=== PATIENT | female | born 1955 | race Caucasian/White ===

== ENCOUNTER 2017-04-04 15:55 | Inpatient (IN) | payer MEDICAID ==
[2017-04-04 16:44] LABS: BASO # 0.1 K/uL (0.0-0.2); BASO % 0.6 % (0.0-2.0); EOS # 0.1 K/uL (0.0-0.7); EOS % 0.7 % (0.0-4.0); LYMPH # 2.6 K/uL (1.0-4.3); LYMPH % 26.4 % (20.0-40.0); MEAN CELL VOLUME 82.6 fL (81.0-99.0); MEAN CORPUSCULAR HEMOGLOBIN 27.3 pg (27.0-31.0); MEAN CORPUSCULAR HGB CONC 33.1 g/dL (33.0-37.0); MEAN PLATELET VOLUME 7.5 fL (7.2-11.7); MONO % 10.8 % (0.0-10.0); NRBC % 0.1 % (0.0-2.0); RED CELL DISTRIBUTION WIDTH 14.8 % (11.5-14.5); WHITE BLOOD COUNT 9.7 K/uL (4.8-10.8)
[2017-04-04 16:53] LABS: CHLORIDE 105 mmol/L (98-107); SODIUM 131 mmol/L (132-148)
[2017-04-04 16:55] LABS: GFR AFRICAN-AMERICAN > 60; POTASSIUM 5.1 mmol/L (3.6-5.2)
[2017-04-04 16:56] LABS: ALB/GLOB RATIO 0.6 (1.0-2.1); ALKALINE PHOSPHATASE 129 U/L (38-126); ALT/SGPT 12 U/L (9-52); AST/SGOT 22 U/L (14-36); BILIRUBIN,TOTAL 0.8 mg/dL (0.2-1.3); BLOOD UREA NITROGEN 12 mg/dL (7-17); CALCIUM 8.9 mg/dl (8.6-10.4); CARBON DIOXIDE 16 mmol/L (22-30); GLUCOSE,RANDOM 123 mg/dL (65-105); TOTAL PROTEIN 7.8 g/dL (6.3-8.3)
--- NOTE | 2017-04-04 17:41 | C.PDOC ---
History Of Present Illness 61 yr old female with PMHx of hydronephrosis, with bilateral nephrostomy tubes, sent to the ER by PMD for abdominal pain. Patient is a poor historian, family reports prolonged hospital course at another instition. family cannot provide further hx. Also denies fever, nausea, vomiting, dysuria, weakness or numbness. Time Seen by Provider: 04/04/17 16:09 Chief Complaint (Nursing): Abdominal Pain History Per: Patient History/Exam Limitations: no limitations Onset/Duration Of Symptoms: Days Past Medical History Reviewed: Historical Data, Nursing Documentation, Vital Signs Vital Signs: Last Vital Signs Temp 98 F 04/08/17 16:00 Pulse 109 H 04/08/17 16:00 Resp 18 04/08/17 16:00 BP 116/70 04/08/17 16:00 Pulse Ox 99 04/08/17 19:14 - Medical History PMH: Hyperthyroidism Family History: States: No Known Family Hx - Social History Hx Alcohol Use: No Hx Substance Use: No - Immunization History Hx Tetanus Toxoid Vaccination: No Hx Influenza Vaccination: No Hx Pneumococcal Vaccination: No Review Of Systems Except As Marked, All Systems Reviewed And Found Negative. Constitutional: Negative for: Fever Gastrointestinal: Positive for: Abdominal Pain. Negative for: Nausea, Vomiting Genitourinary: Negative for: Dysuria Neurological: Negative for: Weakness, Numbness Physical Exam - Physical Exam Appears: Non-toxic, No Acute Distress Skin: Warm, Dry Head: Atraumatic, Normacephalic Chest: Symmetrical, No Tenderness Cardiovascular: Rhythm Regular, No Murmur Respiratory: Normal Breath Sounds, No Rales, No Rhonchi, No Stridor, No Wheezing Pelvic: Other ((+) Bilateral nephrostomy tubes and gonzalez catheter in place.) Neurological/Psych: Oriented x3, Normal Speech, Normal Motor, Normal Sensation ED Course And Treatment - Laboratory Results Result Diagrams: 04/07/17 07:11 04/08/17 17:49 O2 Sat by Pulse Oximetry: 99 (RA) Pulse Ox Interpretation: Normal - CT Scan/US CT - Abd & Pelvis Other Rad Studies (CT/US): Interpreted By Me, Read By Radiologist, Radiology Report Reviewed CT/US Interpretation: Patient Name: MARCO PAIGE . Pt. Address: [address] [place] [address] Med. Rec #: [id number]. [place] [address]: Kelechi Holly DO. Pt Order Location: [facility] : 08/1955 Female Age: 61 Order #: [id number]. Reason for exam: abd pain h/o of nephrostomy. . . . . . CT Scan. . . ABD PELVIS W/O PO OR IV CONT Exam Date: 04/04/17. . This imaging exam was performed at [facility]. EXAM: CT Abdomen and Pelvis Without Intravenous Contrast. . EXAM DATE/TIME: Exam ordered 04/04/2017 4:26 PM. . CLINICAL HISTORY: 61 years old, female; Pain; Abdominal pain; Generalized; Additional info: Abd. pain h/o of nephrostomy. . TECHNIQUE: Axial computed tomography images of the abdomen and pelvis without. intravenous contrast. All CT scans at this facility use one or more dose. reduction techniques, viz.: automated exposure control; ma/ kV adjustment per. patient size (including targeted exams where dose is matched to indication;. i.e. head); or iterative reconstruction technique. Coronal and sagittal reformatted images were created and reviewed. . COMPARISON: No relevant prior studies available. . FINDINGS: Lower thorax: No acute findings. . ABDOMEN: Liver: Unremarkable. Gallbladder and bile ducts: Unremarkable. No calcified stones. No ductal. dilation. Pancreas: Unremarkable. No ductal dilation. Spleen: Unremarkable. No splenomegaly. Adrenals: Unremarkable. No mass. Kidneys and ureters: There are bilateral percutaneous nephrostomy catheters. The catheter catheter ends are coiled within the renal pelvises. Air is noted. within the renal pelvises bilaterally. There is atrophy of the left renal. cortex. No obstructing stones. No hydronephrosis. Stomach and bowel: Unremarkable. No obstruction. No mucosal thickening. Appendix: Not seen as a separate structure. . PELVIS : Bladder: A balloon tipped urethral catheter is directed into a bowel loop in. the right hemipelvis. The catheter courses within a bowel loop in the right. hemipelvis and then crosses the midline to terminate in a bowel loop in the. left midabdomen. A gas/fluid collection in the bladder bed measures. approximately 7.4 x 5.1 x 2 cm. Thegas/fluid collection is predominantly gas. There is soft tissue thickening with loss of normal fat planes are . the pelvic sidewall and obturator internus. There is stranding of the. perirectal fat. There is a healed midline abdominal incision. Surgical clips. are noted in this region. The bladder is absent. No stones. Reproductive: The uterus is absent. . ABDOMEN and PELVIS: Intraperitoneal space: Unremarkable. No free air. No significant fluid. collection. Bones/joints: There is 5 mm retrolisthesis of L5 with respect to L4. There. is narrowing of the L4-5 intervertebral disc space. There is narrowing of the. intervertebral foramina bilaterally at this level. No acute fracture. No. dislocation. Soft tissues: Unremarkable. Vasculature: Unremarkable. No abdominal aortic aneurysm. Lymph nodes: Unremarkable. No enlarged lymph nodes. Other findings : There is mild pubic diastases. . IMPRESSION: 1. Gas/fluid collection noted within the cystectomy bed suggesting abscess. formation. . 2. A urethral balloon tipped catheter is directed into a bowel loop in the. right lower quadrant and appears to terminate at the level of the descending. colon. Clinical correlation suggested.THIS REPORT CONTAINS FINDINGS THAT MAY BE. CRITICAL TO PATIENT CARE. The findings were verbally communicated via telephone. conference with Kelechi Holly at 6:27 PM EDT on 04/04/2017. The findings were. acknowledged and understood. . 3. Subtle irregularity noted along the margins of the symphysis pubis could. represent osteomyelitis. . 4. A grade 1 spondylolisthesis at L4-5. Bilateral foraminal stenosis. . 5. Bilateral percutaneous nephrostomy catheters. There is evidence of left. renal atrophy. Medical Decision Making Medical Decision Making: pt poor historain - discussed case with dr paige on arrival for more hx, request labs and ct imaging PLAN: * CT - Abd & Pelvis * CBC * CMP * Urinalysis 700: noted ct findings, case discussed with dr ko and dr sood and vice president diversity. vice president diversity bedside.dr paige accepts for admission, Disposition - Disposition Disposition: HOSPITALIZED Disposition Time: 06:00 Condition: FAIR - Clinical Impression Clinical Impression: Colonic fistula, Displacement of Gonzalez catheter - Scribe Statement The provider has reviewed the documentation as recorded by the Stormy Lynne Provider Attestation: All medical record entries made by the Scribe were at my direction and personally dictated by me. I have reviewed the chart and agree that the record accurately reflects my personal performance of the history, physical exam, medical decision making, and the department course for this patient. I have also personally directed, reviewed, and agree with the discharge instructions and disposition.
--- NOTE | 2017-04-04 18:33 | CT ---
EXAM: CT Abdomen and Pelvis Without Intravenous Contrast EXAM DATE/TIME: Exam ordered 04/04/2017 4:26 PM CLINICAL HISTORY: 61 years old, female; Pain; Abdominal pain; Generalized; Additional info: Abd pain h/o of nephrostomy TECHNIQUE: Axial computed tomography images of the abdomen and pelvis without intravenous contrast. All CT scans at this facility use one or more dose reduction techniques, viz.: automated exposure control; ma/kV adjustment per patient size (including targeted exams where dose is matched to indication; i.e. head); or iterative reconstruction technique. Coronal and sagittal reformatted images were created and reviewed. COMPARISON: No relevant prior studies available. FINDINGS: Lower thorax: No acute findings. ABDOMEN: Liver: Unremarkable. Gallbladder and bile ducts: Unremarkable. No calcified stones. No ductal dilation. Pancreas: Unremarkable. No ductal dilation. Spleen: Unremarkable. No splenomegaly. Adrenals: Unremarkable. No mass. Kidneys and ureters: There are bilateral percutaneous nephrostomy catheters. The catheter catheter ends are coiled within the renal pelvises. Air is noted within the renal pelvises bilaterally. There is atrophy of the left renal cortex. No obstructing stones. No hydronephrosis. Stomach and bowel: Unremarkable. No obstruction. No mucosal thickening. Appendix: Not seen as a separate structure. PELVIS: Bladder: A balloon tipped urethral catheter is directed into a bowel loop in the right hemipelvis. The catheter courses within a bowel loop in the right hemipelvis and then crosses the midline to terminate in a bowel loop in the left midabdomen. A gas/fluid collection in the bladder bed measures approximately 7.4 x 5.1 x 2 cm. Thegas/fluid collection is predominantly gas. There is soft tissue thickening with loss of normal fat planes are the pelvic sidewall and obturator internus. There is stranding of the perirectal fat. There is a healed midline abdominal incision. Surgical clips are noted in this region. The bladder is absent. No stones. Reproductive: The uterus is absent. ABDOMEN and PELVIS: Intraperitoneal space: Unremarkable. No free air. No significant fluid collection. Bones/joints: There is 5 mm retrolisthesis of L5 with respect to L4. There is narrowing of the L4-5 intervertebral disc space. There is narrowing of the intervertebral foramina bilaterally at this level. No acute fracture. No dislocation. Soft tissues: Unremarkable. Vasculature: Unremarkable. No abdominal aortic aneurysm. Lymph nodes: Unremarkable. No enlarged lymph nodes. Other findings: There is mild pubic diastases. IMPRESSION: 1. Gas/fluid collection noted within the cystectomy bed suggesting abscess formation. 2. A urethral balloon tipped catheter is directed into a bowel loop in the right lower quadrant and appears to terminate at the level of the descending colon. Clinical correlation suggested.THIS REPORT CONTAINS FINDINGS THAT MAY BE CRITICAL TO PATIENT CARE. The findings were verbally communicated via telephone conference with Kelechi Holly at 6:27 PM EDT on 04/04/2017. The findings were acknowledged and understood. 3. Subtle irregularity noted along the margins of the symphysis pubis could represent osteomyelitis. 4. A grade 1 spondylolisthesis at L4-5. Bilateral foraminal stenosis. 5. Bilateral percutaneous nephrostomy catheters. There is evidence of left renal atrophy.
[2017-04-04 19:02] LABS: RBC URINE 58 /hpf (0-3); URINE BACTERIA MANY (<OCC); URINE BILIRUBIN NEGATIVE (NEGATIVE); URINE BLOOD 2+ (NEGATIVE); URINE COLOR Yellow (YELLOW); URINE GLUCOSE (UA) NORMAL (Normal); URINE KETONE NEGATIVE (NEGATIVE); URINE LEUKOCYTE ESTERASE 3+ Leu/uL (Negative); URINE PROTEIN 1+ mg/dL (NEGATIVE); URINE UROBILINOGEN NORMAL mg/dL (0.2-1.0); WBC CLUMPS FEW /hpf; WBC URINE 608 /hpf (0-5)
[2017-04-04] MEDS ORDERED: Piperacillin/Tazobact 3.375 gm 100 ML IVPB ONE (19:35)
[2017-04-04] MEDS: Piperacillin/Tazobact 3.375 GM in Sodium Chloride 100 ML IVPB SCH (19:39)
[2017-04-04] MEDS ORDERED: Sodium Chloride 0.9% 1,000 ML IV ONE (19:46)
[2017-04-04] MEDS ORDERED: Vancomycin 1 GM 1 GM/250 ML BAG IVPB ONE (20:23)
--- NOTE | 2017-04-04 21:07 | CP.PCM.CON ---
<SouleymaneSunita - Last Filed: 04/05/17 08:31> History of Present Illness - History of Present Illness History of Present Illness: General Surgery - Dr. Cabral 61 yo F brought in from detention with persistent abdominal pain. 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 Patient states that she has had peristent abdominal pain for 15 days. She had surgery at [facility] ~4months ago and states she hasn't had any issues in the detention until recently. Upon review of the chart it appears patient had a cystectomy and B/L nephrostomy tubes placed. She also has a urinary catheter in place which the patient states was placed 'a long time ago'. She denies any inciting events but describes it as a diffuse abdominal pain radiating to the back and associated with occasional rectal discomfort. She denies any N/V but states she does not eat well. She has soft/liquid bowel movements almost every day and denies blood in the stool. Pt denies F/C, SOB/ Chest pain. PMH: patient and family unable to give history other than surgical procedure done PSH: apparent cystectomy with b/l nephrostomy tubes, posible surgical placement of urinary catheter/conduit NKDA Patient was seen in the Ed. Vitals stable and WNL, Labs relatively unremarkable. A CT was done which showed an abscess in the cystectomy bed, and a urethral balloon tipped catheter directed into the bowel and terminating in the in the descending colon. Review of Systems - Review of Systems All systems: reviewed and no additional remarkable complaints except (as per HPI ) Past Patient History - Past Social History Smoking Status: Never Smoked - ENDOCRINE/METABOLIC Hx Hyperthyroidism: Yes - GASTROINTESTINAL Hx Colitis: Yes Hx Gastroesophageal Reflux: Yes - GENITOURINARY/GYNECOLOGICAL Hx Urinary Tract Infection: Yes - PSYCHIATRIC Hx Substance Use: No - SURGICAL HISTORY Hx Surgeries: Yes Other/Comment: Nephrostomy insertion - ANESTHESIA Hx Anesthesia: Yes Hx Anesthesia Reactions: No Meds Allergies/Adverse Reactions: Allergies Allergy/AdvReac Type Severity Reaction Status Date / Time No Known Allergies Allergy Verified 04/04/17 16:06 - Medications Medications: Current Medications Piperacillin Sod/Tazobactam (Sod 3.375 gm/ Sodium Chloride) 100 mls @ 200 mls/ hr IVPB Q6H [facility] Last Admin: 04/04/17 19:39 Dose: 200 mls/hr Physical Exam - Constitutional Appears: No Acute Distress, Cachectic - Head Exam Head Exam: ATRAUMATIC, NORMAL INSPECTION, NORMOCEPHALIC - ENT Exam ENT Exam: Mucous Membranes Dry - Respiratory Exam Respiratory Exam: NORMAL BREATHING PATTERN. absent: Respiratory Distress - Cardiovascular Exam Cardiovascular Exam: REGULAR RHYTHM Additional comments: tachy in 90s - GI/Abdominal Exam GI & Abdominal Exam: Guarding, Soft, Tenderness. absent: Distended, Hernia Additional comments: midline scar with depressions which may have been related to a prior ileal conduit Urethral catheter in place with no drainage B/L nephrostomy tubes in place with cloudy urine output - Rectal Exam Rectal Exam: NORMAL INSPECTION Additional comments: small superficial sacral excoriation - Extremities Exam Extremities exam: Positive for: normal inspection - Neurological Exam Neurological exam: Alert - Psychiatric Exam Psychiatric exam: Normal Affect, Normal Mood - Skin Skin Exam: Dry, Intact Results - Vital Signs Recent Vital Signs: Last Vital Signs Temp 97.8 F 04/04/17 19:37 Pulse 106 H 04/04/17 19:37 Resp 18 04/04/17 19:37 BP 82/55 L 04/04/17 19:37 Pulse Ox 100 04/04/17 19:37 - Labs Result Diagrams: 04/05/17 07:12 04/05/17 07:12 Labs: Laboratory Results - last 24 hr 04/04/17 04/04/17 04/04/17 16:41 16:41 16:41 WBC 9.7 RBC 4.00 Hgb 10.9 L Hct 33.0 L MCV 82.6 MCH 27.3 MCHC 33.1 RDW 14.8 H Plt Count 434 H MPV 7.5 Neut % (Auto) 61.5 Lymph % (Auto) 26.4 [place] % (Auto) 10.8 H Eos % (Auto) 0.7 Baso % (Auto) 0.6 Neut # 6.0 Lymph # 2.6 [place] # 1.0 H Eos # 0.1 Baso # 0.1 Differential Comment PT 11.4 INR 1.0 APTT 18 L Sodium 131 L Potassium 5.1 Chloride 105 Carbon Dioxide 16 L Anion Gap 15 BUN 12 Creatinine 0.6 L Est GFR ( Amer) > 60 Est GFR (Non-Af Amer) > 60 Random Glucose 123 H Calcium 8.9 Total Bilirubin 0.8 AST 22 ALT 12 Alkaline Phosphatase 129 H Total Protein 7.8 Albumin 2.9 L Globulin 4.9 H Albumin/Globulin Ratio 0.6 L Lipase 104 Urine Color Urine Clarity Urine pH Ur Specific [place] Urine Protein Urine Glucose (UA) Urine Ketones Urine Blood Urine Nitrate Urine Bilirubin Urine Urobilinogen Ur Leukocyte Esterase Urine WBC (Auto) Urine RBC (Auto) Urine WBC Clumps (Auto) Ur Squamous Epith Cells Urine Bacteria 04/04/17 18:03 WBC RBC Hgb Hct MCV MCH MCHC RDW Plt Count MPV Neut % (Auto) Lymph % (Auto) [place] % (Auto) Eos % (Auto) Baso % (Auto) Neut # Lymph # [place] # Eos # Baso # Differential Comment PT INR APTT Sodium Potassium Chloride Carbon Dioxide Anion Gap BUN Creatinine Est GFR ( Amer) Est GFR (Non-Af Amer) Random Glucose Calcium Total Bilirubin AST ALT Alkaline Phosphatase Total Protein Albumin Globulin Albumin/Globulin Ratio Lipase Urine Color Yellow Urine Clarity Hazy Urine pH 5.0 Ur Specific [place] 1.012 Urine Protein 1+ H Urine Glucose (UA) Normal Urine Ketones Negative Urine Blood 2+ H Urine Nitrate Positive H Urine Bilirubin Negative Urine Urobilinogen Normal Ur Leukocyte Esterase 3+ H Urine WBC (Auto) 608 H Urine RBC (Auto) 58 H Urine WBC Clumps (Auto) Few H Ur Squamous Epith Cells 2 Urine Bacteria Many H - Imaging and Cardiology CT scan - abdomen Status: Image reviewed by me, Report reviewed by me Assessment & Plan - Assessment and Plan (Free Text) Assessment: 61 yo F s/p cystectomy and b/l nephrostomy tubes w/ abdominal pain and CT findings of pelvic abscess and urethral catheter located in the colon -Complete surgical hx still unclear at this time -Pt.s son Gene Higgins was contacted and states he will bring all records from [facility] ~11am -Maintain NPO, IVF, IV Abx -Dr. Fernandez on board for urology, f/u recc. -Monitor closely for signs of sepsis -serial abdominal exams -Further Reccs per Dr. Misha Comer PGY3 <Sumeet Cabral - Last Filed: 04/05/17 21:43> Meds - Medications Medications: Current Medications Acetaminophen (Tylenol 325mg Tab) 650 mg PO Q4 PRN PRN Reason: Fever >100.4 F Ascorbic Acid (Vitamin C 500 Mg Tab) 500 mg PO DAILY [facility] Last Admin: 04/05/17 11:18 Dose: 500 mg Enoxaparin Sodium (Lovenox) 40 mg SC DAILY [facility] Last Admin: 04/05/17 11:19 Dose: 40 mg Home Med (Protein Supplement [Prosource]) 275 gm PO DAILY [facility] Home Med (Insulin Lispro Protamin/Lispro [Humalog Mix 50-50 Kwikpen]) 10 unit SQ BID [facility] Piperacillin Sod/Tazobactam (Sod 3.375 gm/ Sodium Chloride) 100 mls @ 200 mls/ hr IVPB Q6H [facility] Last Admin: 04/05/17 17:54 Dose: 200 mls/hr Ceftriaxone Sodium (Rocephin Iv 1 Gm Duplex) 50 mls @ 100 mls/hr IVPB DAILY [facility] Last Admin: 04/05/17 11:34 Dose: 100 mls/hr Dextrose/Sodium Chloride (Dextrose 5%/0.9% Ns 1000 Ml) 1,000 mls @ 60 mls/hr IV .[id number] [facility] Last Admin: 04/05/17 15:11 Dose: 60 mls/hr Insulin Aspart (Novolog) 0 unit SC ACHS [facility] PRN Reason: Protocol Last Admin: 04/05/17 17:36 Dose: Not Given Lactobacillus Acidophilus (Bacid Acidophilus) 1 cap PO DAILY [facility] Last Admin: 04/05/17 11:37 Dose: Not Given Magnesium Oxide (Mag-Ox) 400 mg PO DAILY [facility] Last Admin: 04/05/17 11:20 Dose: Not Given Pantoprazole Sodium (Protonix Ec Tab) 40 mg PO DAILY [facility] Last Admin: 04/05/17 11:20 Dose: Not Given Zinc Sulfate (Zinc Sulfate 220 Mg Cap) 220 mg PO DAILY [facility] Last Admin: 04/05/17 11:18 Dose: 220 mg Results - Vital Signs Recent Vital Signs: Last Vital Signs Temp 97.8 F 04/05/17 15:00 Pulse 112 H 04/05/17 15:00 Resp 18 04/05/17 15:00 BP 112/74 04/05/17 15:00 Pulse Ox 100 04/05/17 15:00 - Labs Result Diagrams: 04/05/17 07:12 04/05/17 07:12 Labs: Laboratory Results - last 24 hr 04/05/17 04/05/17 04/05/17 06:43 07:12 07:12 WBC 6.6 RBC 3.41 L Hgb 9.3 L Hct 27.7 L MCV 81.3 MCH 27.4 MCHC 33.7 RDW 14.6 H Plt Count 519 H MPV 7.2 Neut % (Auto) 66.1 Lymph % (Auto) 17.4 L [place] % (Auto) 13.6 H Eos % (Auto) 1.9 Baso % (Auto) 1.0 Neut # 4.3 Lymph # 1.1 [place] # 0.9 H Eos # 0.1 Baso # 0.1 Sodium 136 Potassium 3.2 L Chloride 106 Carbon Dioxide 15 L Anion Gap 18 BUN 10 Creatinine 0.7 Est GFR ( Amer) > 60 Est GFR (Non-Af Amer) > 60 POC Glucose (mg/dL) 62 L Random Glucose 66 Calcium 8.2 L Total Bilirubin 0.4 AST 17 ALT 13 Alkaline Phosphatase 120 Total Protein 6.3 Albumin 2.2 L D Globulin 4.1 H Albumin/Globulin Ratio 0.5 L 04/05/17 04/05/17 04/05/17 07:51 12:13 17:32 WBC RBC Hgb Hct MCV MCH MCHC RDW Plt Count MPV Neut % (Auto) Lymph % (Auto) [place] % (Auto) Eos % (Auto) Baso % (Auto) Neut # Lymph # [place] # Eos # Baso # Sodium Potassium Chloride Carbon Dioxide Anion Gap BUN Creatinine Est GFR ( Amer) Est GFR (Non-Af Amer) POC Glucose (mg/dL) 194 H 90 101 Random Glucose Calcium Total Bilirubin AST ALT Alkaline Phosphatase Total Protein Albumin Globulin Albumin/Globulin Ratio Attending/Attestation - Attestation I have personally seen and examined this patient.: Yes I have fully participated in the care of the patient.: Yes I have reviewed all pertinent clinical information: Yes Notes (Text): 04/05/17 21:42 Pt was seen and examined at bedside Agree with above note and assessment Pt with possible colovesicular fistula with b/l Nephrostomy stent LLQ tenderness Labs and radiology reviewed. c/w IV antibiotics urology consult c.w current mx we will f.u Plan d.w pt in detail. Risk and benefit explained in detail.
--- NOTE | 2017-04-04 22:07 | CP.PCM.HP ---
History of Present Illness - History of Present Illness History of Present Illness: A 61-year-old female with PMHhydronephrosis [bilateral nephrostomy tubes in situ], gallbladder disease (cholecystectomy done] and hypothyroidism presents to the ER with C/Oabdominal pain. C/Oabdominal pain for 15 days. Insidious in onset, progressive, generalized all over the abdomen but more on the periumbilical region, vague, dull aching type, intensity of 5/10, no aggravating or elevating factors. No C/Odiarrhea, vomiting, nausea, fever, bladder disturbances. Present on Admission - Present on Admission Any Indicators Present on Admission: No Past Patient History - Past Social History Smoking Status: Never Smoked - ENDOCRINE/METABOLIC Hx Hyperthyroidism: Yes - GASTROINTESTINAL Hx Colitis: Yes Hx Gastroesophageal Reflux: Yes - GENITOURINARY/GYNECOLOGICAL Hx Urinary Tract Infection: Yes - PSYCHIATRIC Hx Substance Use: No - SURGICAL HISTORY Hx Surgeries: Yes Other/Comment: Nephrostomy insertion - ANESTHESIA Hx Anesthesia: Yes Hx Anesthesia Reactions: No Meds Allergies/Adverse Reactions: Allergies Allergy/AdvReac Type Severity Reaction Status Date / Time No Known Allergies Allergy Verified 04/04/17 16:06 Results - Vital Signs Recent Vital Signs: Last Vital Signs Temp 97.8 F 04/04/17 19:37 Pulse 94 H 04/04/17 21:50 Resp 18 04/04/17 21:50 BP 86/55 L 04/04/17 21:50 Pulse Ox 100 04/04/17 21:50 - Labs Result Diagrams: 05/23/17 11:57 05/23/17 11:57 Labs: Laboratory Results - last 24 hr 04/04/17 04/04/17 04/04/17 16:41 16:41 16:41 WBC 9.7 RBC 4.00 Hgb 10.9 L Hct 33.0 L MCV 82.6 MCH 27.3 MCHC 33.1 RDW 14.8 H Plt Count 434 H MPV 7.5 Neut % (Auto) 61.5 Lymph % (Auto) 26.4 [place] % (Auto) 10.8 H Eos % (Auto) 0.7 Baso % (Auto) 0.6 Neut # 6.0 Lymph # 2.6 [place] # 1.0 H Eos # 0.1 Baso # 0.1 Differential Comment PT 11.4 INR 1.0 APTT 18 L Sodium 131 L Potassium 5.1 Chloride 105 Carbon Dioxide 16 L Anion Gap 15 BUN 12 Creatinine 0.6 L Est GFR ( Amer) > 60 Est GFR (Non-Af Amer) > 60 Random Glucose 123 H Calcium 8.9 Total Bilirubin 0.8 AST 22 ALT 12 Alkaline Phosphatase 129 H Total Protein 7.8 Albumin 2.9 L Globulin 4.9 H Albumin/Globulin Ratio 0.6 L Lipase 104 Urine Color Urine Clarity Urine pH Ur Specific [place] Urine Protein Urine Glucose (UA) Urine Ketones Urine Blood Urine Nitrate Urine Bilirubin Urine Urobilinogen Ur Leukocyte Esterase Urine WBC (Auto) Urine RBC (Auto) Urine WBC Clumps (Auto) Ur Squamous Epith Cells Urine Bacteria 04/04/17 18:03 WBC RBC Hgb Hct MCV MCH MCHC RDW Plt Count MPV Neut % (Auto) Lymph % (Auto) [place] % (Auto) Eos % (Auto) Baso % (Auto) Neut # Lymph # [place] # Eos # Baso # Differential Comment PT INR APTT Sodium Potassium Chloride Carbon Dioxide Anion Gap BUN Creatinine Est GFR ( Amer) Est GFR (Non-Af Amer) Random Glucose Calcium Total Bilirubin AST ALT Alkaline Phosphatase Total Protein Albumin Globulin Albumin/Globulin Ratio Lipase Urine Color Yellow Urine Clarity Hazy Urine pH 5.0 Ur Specific [place] 1.012 Urine Protein 1+ H Urine Glucose (UA) Normal Urine Ketones Negative Urine Blood 2+ H Urine Nitrate Positive H Urine Bilirubin Negative Urine Urobilinogen Normal Ur Leukocyte Esterase 3+ H Urine WBC (Auto) 608 H Urine RBC (Auto) 58 H Urine WBC Clumps (Auto) Few H Ur Squamous Epith Cells 2 Urine Bacteria Many H
[2017-04-04] MEDS: Sodium Chloride 0.9% 1,000 ML IV SCH (23:35)
[2017-04-05] MEDS: Piperacillin/Tazobact 3.375 GM in Sodium Chloride 100 ML IVPB SCH ×4 (01:09→17:54)
[2017-04-05] MEDS: Sodium Chloride 0.9% 1,000 ML IV SCH (05:56)
[2017-04-05] MEDS ORDERED: (Novolog) Insulin Aspart, Recombinant 100 u/ml 10 ml vial SC SCH (07:30)
[2017-04-05 07:31] LABS: BASO # 0.1 K/uL (0.0-0.2); EOS # 0.1 K/uL (0.0-0.7); EOS % 1.9 % (0.0-4.0); HEMATOCRIT 27.7 % (34.0-47.0); LYMPH # 1.1 K/uL (1.0-4.3); LYMPH % 17.4 % (20.0-40.0); MEAN CELL VOLUME 81.3 fL (81.0-99.0); MEAN CORPUSCULAR HEMOGLOBIN 27.4 pg (27.0-31.0); MEAN CORPUSCULAR HGB CONC 33.7 g/dL (33.0-37.0); MEAN PLATELET VOLUME 7.2 fL (7.2-11.7); MONO # 0.9 K/uL (0.0-0.8); MONO % 13.6 % (0.0-10.0); RED CELL DISTRIBUTION WIDTH 14.6 % (11.5-14.5); WHITE BLOOD COUNT 6.6 K/uL (4.8-10.8)
[2017-04-05] MEDS ORDERED: Dextrose 50% SYRINGE Inj (50 ml) IV STA (07:33)
[2017-04-05] MEDS ORDERED: Dextrose 50% SYRINGE Inj (50 ml) ONE (07:34)
[2017-04-05 07:43] LABS: CHLORIDE 106 mmol/L (98-107); POTASSIUM 3.2 mmol/L (3.6-5.2); SODIUM 136 mmol/L (132-148)
[2017-04-05 07:45] LABS: GFR AFRICAN-AMERICAN > 60
[2017-04-05 07:46] LABS: ALB/GLOB RATIO 0.5 (1.0-2.1); ALKALINE PHOSPHATASE 120 U/L (38-126); ALT/SGPT 13 U/L (9-52); AST/SGOT 17 U/L (14-36); BILIRUBIN,TOTAL 0.4 mg/dL (0.2-1.3); BLOOD UREA NITROGEN 10 mg/dL (7-17); CARBON DIOXIDE 15 mmol/L (22-30); GLUCOSE,RANDOM 66 mg/dL (65-105); TOTAL PROTEIN 6.3 g/dL (6.3-8.3)
[2017-04-05 07:47] LABS: CALCIUM 8.2 mg/dl (8.6-10.4)
[2017-04-05] MEDS: (Novolog) Insulin Aspart, Recombinant 100 u/ml 10 ml vial SC SCH ×4 (08:45→22:00)
[2017-04-05] MEDS ORDERED: PROTEIN SUPPLEMENT 275 GM PO SCH (10:00)
[2017-04-05] MEDS ORDERED: MAGNESIUM OXIDE 400 MG PO SCH (10:00)
[2017-04-05] MEDS: LISPRO SQ SCH ×2 (10:27→17:46)
[2017-04-05] MEDS: INSULIN LISPRO PROTAMIN SQ SCH ×2 (10:27→17:46)
[2017-04-05] MEDS: Pantoprazole 40 mg EC Tab PO SCH ×2 (11:18→11:20)
[2017-04-05] MEDS: Magnesium Oxide 400 mg Tab UD PO SCH ×2 (11:18→11:20)
[2017-04-05] MEDS: Lactobacillus Acidophilus 500 MU Cap PO SCH ×2 (11:18→11:37)
[2017-04-05] MEDS: Enoxaparin 40 mg Syringe SC SCH (11:19)
[2017-04-05] MEDS: cefTRIAXone IV 1 gm in Dextros 50 ML IVPB SCH (11:34)
--- NOTE | 2017-04-05 11:43 | CP.PCM.PN ---
<Zari Desouza - Last Filed: 04/05/17 11:39> Subjective - Date & Time of Evaluation Date of Evaluation: 04/05/17 Time of Evaluation: 07:00 - Subjective Subjective: General Surgery Dr. Cabral Pt S&E @bedside. NAEO. According to pt, w/ Dr. Cabral providing translation , [place] [facility] [place]. [place] [facility] [place] [facility]/alf. Pt c/o abd pain. denies N/V, F/C. Objective - Vital Signs/Intake and Output Vital Signs (last 24 hours): Temp Pulse Resp BP Pulse Ox 98.6 F 99 H 20 98/63 L 100 04/05/17 04:20 04/05/17 04:20 04/05/17 04:20 04/05/17 04:20 04/05/17 04:20 Intake and Output: 04/05/17 04/05/17 06:59 18:59 Output Total 575 Balance -575 - Medications Medications: Current Medications Acetaminophen (Tylenol 325mg Tab) 650 mg PO Q4 PRN PRN Reason: Fever >100.4 F Ascorbic Acid (Vitamin C 500 Mg Tab) 500 mg PO DAILY [facility] Last Admin: 04/05/17 11:18 Dose: 500 mg Enoxaparin Sodium (Lovenox) 40 mg SC DAILY [facility] Last Admin: 04/05/17 11:19 Dose: 40 mg Home Med (Insulin Lispro Protamin/Lispro [Humalog Mix 50-50 Kwikpen]) 10 unit SQ BID [facility] Last Admin: 04/05/17 10:27 Dose: Not Given Home Med (Protein Supplement [Prosource]) 275 gm PO DAILY [facility] Last Admin: 04/05/17 11:00 Dose: Not Given Piperacillin Sod/Tazobactam (Sod 3.375 gm/ Sodium Chloride) 100 mls @ 200 mls/ hr IVPB Q6H [facility] Last Admin: 04/05/17 05:59 Dose: 200 mls/hr Ceftriaxone Sodium (Rocephin Iv 1 Gm Duplex) 50 mls @ 100 mls/hr IVPB DAILY [facility] Last Admin: 04/05/17 11:34 Dose: 100 mls/hr Sodium Chloride (Sodium Chloride 0.9%) 1,000 mls @ 60 mls/hr IV .[id number] [facility] Last Admin: 04/05/17 05:56 Dose: 60 mls/hr Insulin Aspart (Novolog) 0 unit SC ACHS [facility] PRN Reason: Protocol Last Admin: 04/05/17 08:45 Dose: Not Given Lactobacillus Acidophilus (Bacid Acidophilus) 1 cap PO DAILY [facility] Last Admin: 04/05/17 11:37 Dose: Not Given Magnesium Oxide (Mag-Ox) 400 mg PO DAILY [facility] Pantoprazole Sodium (Protonix Ec Tab) 40 mg PO DAILY [facility] Zinc Sulfate (Zinc Sulfate 220 Mg Cap) 220 mg PO DAILY [facility] Last Admin: 04/05/17 11:18 Dose: 220 mg - Labs Labs: 04/05/17 07:12 04/05/17 07:12 PT 11.4 SECONDS (9.7-12.2) 04/04/17 16:41 INR 1.0 04/04/17 16:41 APTT 18 SECONDS (21-34) L 04/04/17 16:41 - Constitutional Appears: Non-toxic, No Acute Distress, Older Than Stated Age, Cachectic, Chronically Ill - Head Exam Head Exam: NORMAL INSPECTION - Eye Exam Eye Exam: Normal appearance - ENT Exam ENT Exam: Mucous Membranes Moist - Respiratory Exam Respiratory Exam: NORMAL BREATHING PATTERN. absent: Accessory Muscle Use, Respiratory Distress - Cardiovascular Exam Cardiovascular Exam: absent: Bradycardia, Tachycardia - GI/Abdominal Exam GI & Abdominal Exam: Soft, Tenderness (minimal TTP). absent: Distended, Hernia Additional comments: midline scar present - Exam Additional comments: gonzalez in place to the hilt - Extremities Exam Extremities Exam: Normal Inspection - Back Exam Additional comments: b/l nephrostomy tubes - Neurological Exam Neurological Exam: Alert, Awake - Psychiatric Exam Psychiatric exam: Normal Affect, Normal Mood - Skin Skin Exam: Dry, Normal Color, Warm Assessment and Plan - Assessment and Plan (Free Text) Assessment: 61 y/o F w/ Hx of colovesicula fistula w/ abnormal CT scan - Gastrofraffin enema to assess perforation vs recurrent colovesicula fistula - NPO, IVF - pain management - cont IV abx - cont medical management Pt seen and discussed w/ Dr. Misha Desouza DO PGY2 <Sumeet Cabral B - Last Filed: 04/05/17 21:45> Objective - Vital Signs/Intake and Output Vital Signs (last 24 hours): Temp Pulse Resp BP Pulse Ox 97.8 F 112 H 18 112/74 100 04/05/17 15:00 04/05/17 15:00 04/05/17 15:00 04/05/17 15:00 04/05/17 15:00 Intake and Output: 04/05/17 04/06/17 18:59 06:59 Intake Total 480 Output Total 350 Balance 130 - Medications Medications: Current Medications Acetaminophen (Tylenol 325mg Tab) 650 mg PO Q4 PRN PRN Reason: Fever >100.4 F Ascorbic Acid (Vitamin C 500 Mg Tab) 500 mg PO DAILY [facility] Last Admin: 04/05/17 11:18 Dose: 500 mg Enoxaparin Sodium (Lovenox) 40 mg SC DAILY [facility] Last Admin: 04/05/17 11:19 Dose: 40 mg Home Med (Protein Supplement [Prosource]) 275 gm PO DAILY [facility] Home Med (Insulin Lispro Protamin/Lispro [Humalog Mix 50-50 Kwikpen]) 10 unit SQ BID [facility] Piperacillin Sod/Tazobactam (Sod 3.375 gm/ Sodium Chloride) 100 mls @ 200 mls/ hr IVPB Q6H [facility] Last Admin: 04/05/17 17:54 Dose: 200 mls/hr Ceftriaxone Sodium (Rocephin Iv 1 Gm Duplex) 50 mls @ 100 mls/hr IVPB DAILY [facility] Last Admin: 04/05/17 11:34 Dose: 100 mls/hr Dextrose/Sodium Chloride (Dextrose 5%/0.9% Ns 1000 Ml) 1,000 mls @ 60 mls/hr IV .[id number] [facility] Last Admin: 04/05/17 15:11 Dose: 60 mls/hr Insulin Aspart (Novolog) 0 unit SC ACHS [facility] PRN Reason: Protocol Last Admin: 04/05/17 17:36 Dose: Not Given Lactobacillus Acidophilus (Bacid Acidophilus) 1 cap PO DAILY [facility] Last Admin: 04/05/17 11:37 Dose: Not Given Magnesium Oxide (Mag-Ox) 400 mg PO DAILY [facility] Last Admin: 04/05/17 11:20 Dose: Not Given Pantoprazole Sodium (Protonix Ec Tab) 40 mg PO DAILY [facility] Last Admin: 04/05/17 11:20 Dose: Not Given Zinc Sulfate (Zinc Sulfate 220 Mg Cap) 220 mg PO DAILY [facility] Last Admin: 04/05/17 11:18 Dose: 220 mg - Labs Labs: 04/05/17 07:12 04/05/17 07:12 PT 11.4 SECONDS (9.7-12.2) 04/04/17 16:41 INR 1.0 04/04/17 16:41 APTT 18 SECONDS (21-34) L 04/04/17 16:41 Attending/Attestation - Attestation I have personally seen and examined this patient.: Yes I have fully participated in the care of the patient.: Yes I have reviewed all pertinent clinical information, including history, physical exam and plan: Yes Notes (Text): 04/05/17 21:43 Pt was seen and examined at bedside Agree with above note and assessment Pt with colovesicular fistula GG enema to confirm site of fistula c/w IV antibiotics Spoken to Urologist in detail c.w current mx Cardiology consult for Echo Medical clearance by PMD Plan d.w pt in detail. Risk and benefit explained in detail.
[2017-04-05] MEDS ORDERED: Dextrose 5%/0.9% NS 1,000 ML IV SCH (14:30)
[2017-04-05] MEDS ORDERED: Iohexol 240 200 ML IJ ONE (14:33)
--- NOTE | 2017-04-05 19:05 | CT ---
EXAM: CT Abdomen and Pelvis Without Intravenous Contrast EXAM DATE/TIME: Exam ordered 04/05/2017 4:30 PM CLINICAL HISTORY: 61 years old, female; Condition or disease; Intestinal condition; Inflammation; Patient HX: Pre op; Additional info: S/P barium enema TECHNIQUE: Axial computed tomography images of the abdomen and pelvis without intravenous contrast. All CT scans at this facility use one or more dose reduction techniques, viz.: automated exposure control; ma/kV adjustment per patient size (including targeted exams where dose is matched to indication; i.e. head); or iterative reconstruction technique. Coronal and sagittal reformatted images were created and reviewed. COMPARISON: CT - ABD PELVIS W/O PO OR IV CONT 04/04/2017 5:00:55 PM FINDINGS: Lower thorax: A coarse reticular density is noted in the right lower lobe suggesting an area of scar or discoid atelectasis. ABDOMEN: Liver: Unremarkable. Gallbladder and bile ducts: Unremarkable. No calcified stones. No ductal dilation. Pancreas: Unremarkable. No ductal dilation. Spleen: Unremarkable. No splenomegaly. Adrenals: Unremarkable. No mass. Kidneys and ureters: There are bilateral percutaneous nephrostomy catheters coiled within the renal pelvis of the left and right kidney respectively. Air is noted within the collecting system of the left kidney. This cortical atrophy of the left kidney. No obstructing stones. No hydronephrosis. Stomach and bowel: Barium is noted within the rectum. There is a mild thickening suggested of the sigmoid colon. No obstruction. Appendix: Not seen as a separate structure. PELVIS: Bladder: Barium surrounds the Mckeon catheter in the retropubic space. An air barium level is noted within the retropubic space/bladder bed. As noted in previous report, the Mckeon catheter traverses loop of bowel felt to be the terminal ileum, courses through the ascending colon, across the transverse colon and terminates just proximal to the splenic flexure. No stones. Reproductive: The uterus is absent. ABDOMEN and PELVIS: Intraperitoneal space: Unremarkable. No free air. No significant fluid collection. Bones/joints: Is a grade 1 spondylolisthesis at L4-5 with approximately 3 mm of retrolisthesis of L5 with respect to L4. No dislocation. Soft tissues: Air extends from the retropubic space/bladder bed through the symphysis pubis and into the pre-pubic soft tissues. There is a healed infraumbilical midline abdominal incision. Vasculature: Unremarkable. No abdominal aortic aneurysm. Lymph nodes: Unremarkable. No enlarged lymph nodes. IMPRESSION: 1. Barium is noted within the colon from the rectum to the terminal ileum. This confirms trans-enteral placement of a Mckeon catheter through the terminal ileum, into the ascending and transverse colon. 2. A air/barium collection is noted in the retropubic space/bladder bed. 3. Air extends from the retropubic space through the symphysis pubis and into the pre-pubic soft tissues. As discussed previously osteomyelitis of the symphysis pubis might be considered 4. Thickening is suggested of the sigmoid colon. This may be related to under distention. Mural edema/tumor are other considerations.
--- NOTE | 2017-04-05 19:46 | CP.PCM.PN ---
Subjective - Date & Time of Evaluation Date of Evaluation: 04/05/17 Time of Evaluation: 11:20 - Subjective Subjective: clinically same Objective - Vital Signs/Intake and Output Vital Signs (last 24 hours): Temp Pulse Resp BP Pulse Ox 97.8 F 112 H 18 112/74 100 04/05/17 15:00 04/05/17 15:00 04/05/17 15:00 04/05/17 15:00 04/05/17 15:00 Intake and Output: 04/05/17 04/06/17 18:59 06:59 Intake Total 480 Output Total 350 Balance 130 - Medications Medications: Current Medications Acetaminophen (Tylenol 325mg Tab) 650 mg PO Q4 PRN PRN Reason: Fever >100.4 F Ascorbic Acid (Vitamin C 500 Mg Tab) 500 mg PO DAILY [facility] Last Admin: 04/05/17 11:18 Dose: 500 mg Enoxaparin Sodium (Lovenox) 40 mg SC DAILY [facility] Last Admin: 04/05/17 11:19 Dose: 40 mg Home Med (Protein Supplement [Prosource]) 275 gm PO DAILY [facility] Home Med (Insulin Lispro Protamin/Lispro [Humalog Mix 50-50 Kwikpen]) 10 unit SQ BID [facility] Piperacillin Sod/Tazobactam (Sod 3.375 gm/ Sodium Chloride) 100 mls @ 200 mls/ hr IVPB Q6H [facility] Last Admin: 04/05/17 17:54 Dose: 200 mls/hr Ceftriaxone Sodium (Rocephin Iv 1 Gm Duplex) 50 mls @ 100 mls/hr IVPB DAILY [facility] Last Admin: 04/05/17 11:34 Dose: 100 mls/hr Dextrose/Sodium Chloride (Dextrose 5%/0.9% Ns 1000 Ml) 1,000 mls @ 60 mls/hr IV .[id number] [facility] Last Admin: 04/05/17 15:11 Dose: 60 mls/hr Potassium Chloride (Potassium Chloride 20 Meq/100 Ml) 20 meq in 100 mls @ 50 mls/hr IVPB ONCE ONE Stop: 04/05/17 21:29 Last Admin: 04/05/17 19:36 Dose: 50 mls/hr Insulin Aspart (Novolog) 0 unit SC ACHS [facility] PRN Reason: Protocol Last Admin: 04/05/17 17:36 Dose: Not Given Lactobacillus Acidophilus (Bacid Acidophilus) 1 cap PO DAILY [facility] Last Admin: 04/05/17 11:37 Dose: Not Given Magnesium Oxide (Mag-Ox) 400 mg PO DAILY [facility] Last Admin: 04/05/17 11:20 Dose: Not Given Pantoprazole Sodium (Protonix Ec Tab) 40 mg PO DAILY [facility] Last Admin: 04/05/17 11:20 Dose: Not Given Zinc Sulfate (Zinc Sulfate 220 Mg Cap) 220 mg PO DAILY [facility] Last Admin: 04/05/17 11:18 Dose: 220 mg - Labs Labs: 04/05/17 07:12 04/05/17 07:12 PT 11.4 SECONDS (9.7-12.2) 04/04/17 16:41 INR 1.0 04/04/17 16:41 APTT 18 SECONDS (21-34) L 04/04/17 16:41 - Constitutional Appears: Well - Head Exam Head Exam: ATRAUMATIC, NORMAL INSPECTION, NORMOCEPHALIC - Eye Exam Eye Exam: EOMI, Normal appearance, PERRL Pupil Exam: NORMAL ACCOMODATION, PERRL - ENT Exam ENT Exam: Mucous Membranes Moist, Normal Exam - Neck Exam Neck Exam: Full ROM, Normal Inspection. absent: Lymphadenopathy - Respiratory Exam Respiratory Exam: Decreased Breath Sounds - Cardiovascular Exam Cardiovascular Exam: REGULAR RHYTHM, +S1, +S2 - GI/Abdominal Exam GI & Abdominal Exam: Soft, Diminished Bowel Sounds - Rectal Exam Rectal Exam: Deferred Assessment and Plan (1) Colonic fistula Status: Acute (2) Displacement of Mckeon catheter Status: Acute - Assessment and Plan (Free Text) Plan: Patient examined. Patient clinically the same. Continue all treatment.
[2017-04-06] MEDS ORDERED: Sodium Chloride 0.9% 500 ML IV ONE ×2 (00:30→09:46)
[2017-04-06] MEDS ORDERED: Sodium Chloride 0.9% 1,000 ML IV SCH (01:45)
[2017-04-06] MEDS: Piperacillin/Tazobact 3.375 GM in Sodium Chloride 100 ML IVPB SCH ×4 (02:34→21:12)
[2017-04-06 02:56] LABS: BASO # 0.1 K/uL (0.0-0.2); BASO % 1.3 % (0.0-2.0); EOS # 0.1 K/uL (0.0-0.7); EOS % 1.9 % (0.0-4.0); HEMATOCRIT 25.9 % (34.0-47.0); LYMPH # 1.4 K/uL (1.0-4.3); LYMPH % 28.9 % (20.0-40.0); MEAN CELL VOLUME 82.1 fL (81.0-99.0); MEAN CORPUSCULAR HEMOGLOBIN 27.3 pg (27.0-31.0); MEAN CORPUSCULAR HGB CONC 33.3 g/dL (33.0-37.0); MEAN PLATELET VOLUME 6.9 fL (7.2-11.7); MONO # 0.7 K/uL (0.0-0.8); MONO % 14.5 % (0.0-10.0); RED CELL DISTRIBUTION WIDTH 14.9 % (11.5-14.5); WHITE BLOOD COUNT 4.7 K/uL (4.8-10.8)
[2017-04-06 03:04] LABS: CHLORIDE 115 mmol/L (98-107); POTASSIUM 4.1 mmol/L (3.6-5.2); SODIUM 141 mmol/L (132-148)
[2017-04-06 03:06] LABS: GFR AFRICAN-AMERICAN > 60
[2017-04-06 03:07] LABS: ALB/GLOB RATIO 0.5 (1.0-2.1); ALKALINE PHOSPHATASE 113 U/L (38-126); ALT/SGPT 16 U/L (9-52); AST/SGOT 9 U/L (14-36); BILIRUBIN,TOTAL < 0.1 mg/dL (0.2-1.3); BLOOD UREA NITROGEN 5 mg/dL (7-17); CALCIUM 8.4 mg/dl (8.6-10.4); CARBON DIOXIDE 14 mmol/L (22-30); GLUCOSE,RANDOM 89 mg/dL (65-105); TOTAL PROTEIN 5.9 g/dL (6.3-8.3)
[2017-04-06] MEDS: (Novolog) Insulin Aspart, Recombinant 100 u/ml 10 ml vial SC SCH ×4 (08:30→22:00)
--- NOTE | 2017-04-06 08:41 | RAD ---
PROCEDURE: Water-soluble contrast rectal enema HISTORY: colovesicual fistula vs colonic perforation COMPARISON: Comparison is made to the previous CT dated 04/04/2017 TECHNIQUE: Diluted water-soluble contrast enema was performed under fluoroscopic guidance using rectal tube. Post evacuation images of the abdomen and pelvis were also obtained. Total time 0.9 minutes. Total dose: 8.516 mGy. FINDINGS: The contrast seen passing from the rectum to the descending colon without evidence of obstruction. No evidence of contrast extravasation from the rectum or sigmoid colon. The contrast passed to the transverse colon which is mildly dilated. . The contrast is seen also extending to the descending colon. There is catheter with balloon at the tip of the catheter seen in the right colon extending to the transverse colon may represent Mckeon catheter. This presumed Mckeon catheter seen also in the terminal ileum and in the right aspect of the pelvis surrounding with extraluminal contrast. IMPRESSION: Findings suggestive of Mckeon catheter extending from the pelvis to the right lower abdomen likely entering the bowel at the terminal ileum just adjacent to the ileocecal valve versus entering the large bowel / cecum and extending to the transverse colon. There is extraluminal contrast seen at the end of the study surrounding this presumed Mckeon catheter in the pelvis likely extravasated from the cecum or terminal ileum around the Mckeon catheter. Please see the follow-up CT of this patient done on 04/05/2017 at 17:13 for further details.
[2017-04-06] MEDS ORDERED: Sodium Chloride 0.9% 100 ML IV ONE (08:45)
[2017-04-06] MEDS ORDERED: PROTEIN SUPPLEMENT 275 GM PO SCH (10:00)
[2017-04-06] MEDS ORDERED: LISPRO SQ SCH (10:00)
[2017-04-06] MEDS ORDERED: INSULIN LISPRO PROTAMIN SQ SCH (10:00)
[2017-04-06] MEDS ORDERED: HYDROmorphone 0.5 mg/0.5 ml ISec IVP PRN (10:05)
[2017-04-06] MEDS: Lactobacillus Acidophilus 500 MU Cap PO SCH (10:27)
[2017-04-06] MEDS: cefTRIAXone IV 1 gm in Dextros 50 ML IVPB SCH (10:27)
[2017-04-06] MEDS: Enoxaparin 40 mg Syringe SC SCH (10:27)
[2017-04-06] MEDS: Magnesium Oxide 400 mg Tab UD PO SCH (10:27)
[2017-04-06] MEDS: Pantoprazole 40 mg EC Tab PO SCH (10:27)
--- NOTE | 2017-04-06 11:43 | CP.PCM.PN ---
Addendum entered and electronically signed by Zari Desouza DO 04/06/17 19:02: Surgery rescheduled for Apr.10. start FLD, ensure, pro-source, PPN Original Note: <Zari Desouza - Last Filed: 04/06/17 11:52> Subjective - Date & Time of Evaluation Date of Evaluation: 04/06/17 Time of Evaluation: 10:30 - Subjective Subjective: General Surgery Dr. Cabral Pt S&E @bedside. hypotension overnight, responded to fluid bolus. This AM pt c/ o upper abd pain, as well as hunger. (+)diarrhea, (-) N/V, F/C. Objective - Vital Signs/Intake and Output Vital Signs (last 24 hours): Temp Pulse Resp BP Pulse Ox 98.8 F 98 H 20 101/74 100 04/06/17 08:00 04/06/17 10:39 04/06/17 08:00 04/06/17 10:39 04/06/17 08:00 Intake and Output: 04/06/17 04/06/17 06:59 18:59 Intake Total 680 Output Total 570 Balance 110 - Medications Medications: Current Medications Acetaminophen (Tylenol 325mg Tab) 650 mg PO Q4 PRN PRN Reason: Fever >100.4 F Ascorbic Acid (Vitamin C 500 Mg Tab) 500 mg PO DAILY [facility] Last Admin: 04/06/17 10:27 Dose: 500 mg Enoxaparin Sodium (Lovenox) 40 mg SC DAILY [facility] Last Admin: 04/06/17 10:27 Dose: 40 mg Hydromorphone HCl (Dilaudid) 0.5 mg IVP Q3H PRN PRN Reason: Pain, severe (8-10) Piperacillin Sod/Tazobactam (Sod 3.375 gm/ Sodium Chloride) 100 mls @ 200 mls/ hr IVPB Q6H [facility] Last Admin: 04/06/17 05:57 Dose: 200 mls/hr Ceftriaxone Sodium (Rocephin Iv 1 Gm Duplex) 50 mls @ 100 mls/hr IVPB DAILY [facility] Last Admin: 04/06/17 10:27 Dose: 100 mls/hr Sodium Chloride (Sodium Chloride 0.9%) 1,000 mls @ 75 mls/hr IV .[id number] [facility] Last Admin: 04/06/17 01:45 Dose: 75 mls/hr Insulin Aspart (Novolog) 0 unit SC ACHS [facility] PRN Reason: Protocol Last Admin: 04/06/17 08:30 Dose: Not Given Lactobacillus Acidophilus (Bacid Acidophilus) 1 cap PO DAILY [facility] Last Admin: 04/06/17 10:27 Dose: 1 cap Magnesium Oxide (Mag-Ox) 400 mg PO DAILY [facility] Last Admin: 04/06/17 10:27 Dose: 400 mg Pantoprazole Sodium (Protonix Ec Tab) 40 mg PO DAILY [facility] Last Admin: 04/06/17 10:27 Dose: 40 mg Zinc Sulfate (Zinc Sulfate 220 Mg Cap) 220 mg PO DAILY [facility] Last Admin: 04/06/17 10:27 Dose: 220 mg - Labs Labs: 04/06/17 02:46 04/06/17 02:46 PT 11.4 SECONDS (9.7-12.2) 04/04/17 16:41 INR 1.0 04/04/17 16:41 APTT 18 SECONDS (21-34) L 04/04/17 16:41 - Constitutional Appears: Non-toxic, No Acute Distress, Older Than Stated Age - Head Exam Head Exam: NORMAL INSPECTION - Eye Exam Eye Exam: Normal appearance - ENT Exam ENT Exam: Mucous Membranes Moist - Respiratory Exam Respiratory Exam: NORMAL BREATHING PATTERN. absent: Accessory Muscle Use, Respiratory Distress - Cardiovascular Exam Cardiovascular Exam: absent: Bradycardia, Tachycardia - GI/Abdominal Exam GI & Abdominal Exam: Firm, Tenderness (minimal TTP upper abd). absent: Distended, Guarding, Hernia, Rebound Additional comments: midline scar present - Exam Additional comments: gonzalez inserted to hub - Extremities Exam Extremities Exam: Normal Inspection - Back Exam Additional comments: B/L nephrostomy tubes draining clear, yellow, urine. - Neurological Exam Neurological Exam: Alert, Awake - Psychiatric Exam Psychiatric exam: Normal Affect, Normal Mood - Skin Skin Exam: Dry, Intact, Normal Color, Warm Assessment and Plan - Assessment and Plan (Free Text) Assessment: 61 y/o F s/p hysterectomy and b/l nephrostomy tubes w/ abdominal pain and CT findings of pelvic abscess and urethral catheter located in the colon - pt has nonfunctioning bladder 2/2 B/L nephrostomy tubes; suprapubic swelling is likely 2/2 pelvic [address] seen on CT - cont NPO - 500cc bolus for hypotension - cont NS@75 - pain management - f/u Cardiac clearance - Surgery scheduled for tomorrow, Monday04/07/17 - continue medical management Pt discussed w/ Dr. Misha Desouza DO PGY2 <Sumeet Cabral - Last Filed: 04/09/17 21:22> Objective - Vital Signs/Intake and Output Vital Signs (last 24 hours): Temp Pulse Resp BP Pulse Ox 98.4 F 106 H 20 119/80 98 04/09/17 16:00 04/09/17 16:00 04/09/17 16:00 04/09/17 16:00 04/09/17 16:00 Intake and Output: 04/09/17 04/10/17 18:59 06:59 Intake Total 240 Output Total 230 Balance 10 - Medications Medications: Current Medications Acetaminophen (Tylenol 325mg Tab) 650 mg PO Q4 PRN PRN Reason: Fever >100.4 F Ascorbic Acid (Vitamin C 500 Mg Tab) 500 mg PO DAILY [facility] Last Admin: 04/09/17 10:18 Dose: 500 mg Enoxaparin Sodium (Lovenox) 40 mg SC DAILY [facility] Last Admin: 04/09/17 10:19 Dose: 40 mg Imipenem/Cilastatin Sodium 500 (mg/ Sodium Chloride) 100 mls @ 100 mls/hr IVPB Q6H [facility] Last Admin: 04/09/17 16:30 Dose: 100 mls/hr Amino Acids (Clinimix 4.25/5 % "E" (1000 Ml)) 1,000 mls @ 83 mls/hr IV .Q12H3M ONE Stop: 04/10/17 06:02 Last Admin: 04/09/17 18:49 Dose: 83 mls/hr Amino Acids (Clinimix 4.25/5 % "E" (1000 Ml)) 1,000 mls @ 83 mls/hr IV .Q12H3M ONE Stop: 04/10/17 18:05 Insulin Aspart (Novolog) 0 unit SC ACHS [facility] PRN Reason: Protocol Last Admin: 04/09/17 17:00 Dose: 2 unit Lactobacillus Acidophilus (Bacid Acidophilus) 1 cap PO DAILY [facility] Last Admin: 04/09/17 10:18 Dose: 1 cap Magnesium Oxide (Mag-Ox) 400 mg PO DAILY [facility] Last Admin: 04/09/17 10:18 Dose: 400 mg Ondansetron HCl (Zofran Inj) 4 mg IVP Q4 PRN PRN Reason: Nausea/Vomiting Pantoprazole Sodium (Protonix Ec Tab) 40 mg PO DAILY [facility] Last Admin: 04/09/17 10:18 Dose: 40 mg Zinc Sulfate (Zinc Sulfate 220 Mg Cap) 220 mg PO DAILY [facility] Last Admin: 04/09/17 10:18 Dose: 220 mg - Labs Labs: 04/09/17 09:05 04/09/17 09:05 PT 11.4 SECONDS (9.7-12.2) 04/04/17 16:41 INR 1.0 04/04/17 16:41 APTT 18 SECONDS (21-34) L 04/04/17 16:41 Attending/Attestation - Attestation I have personally seen and examined this patient.: Yes I have fully participated in the care of the patient.: Yes I have reviewed all pertinent clinical information, including history, physical exam and plan: Yes Notes (Text): 04/09/17 21:22 Pt was seen and examined at bedside Agree with above note and assessment Pt with Cecalvesucular fistula Severe malnutrition Urology input awaiting C.w IV antibiotics Reg diet, PPN Plan d.w pt in detail.
[2017-04-06] MEDS ORDERED: Dextrose 25% Inj (10ml) IV ONE (11:55)
[2017-04-06] MEDS: Dextrose 5%/0.45% NS 1,000 ML IV SCH (12:07)
--- NOTE | 2017-04-06 20:01 | CP.PCM.CON ---
History of Present Illness - History of Present Illness History of Present Illness: 61 yo F brought in from snf with persistent abdominal pain. Patient states that she has had peristent abdominal pain for 15 days. She had surgery at [facility] ~4months ago and states she hasn't had any issues in the snf until recently. patient had a cystectomy and B/L nephrostomy tubes placed. She also has a urinary catheter in place SHE describes it as a diffuse abdominal pain radiating to the back and associated with occasional rectal discomfort. PMH: patient and family unable to give history other than surgical procedure done PSH: apparent cystectomy with b/l nephrostomy tubes, posible surgical placement of urinary catheter/conduit NKDA Patient was seen in the Ed. Vitals stable and WNL, Labs relatively unremarkable. A CT was done which showed an abscess in the cystectomy bed, and a urethral balloon tipped catheter directed into the bowel and terminating in the in the descending colon. Review of Systems - Constitutional Constitutional: As Per HPI - EENT Eyes: absent: As Per HPI, Blind Spots, Blurred Vision, Change in Vision, Decreased Night Vision, Diplopia, Discharge, Dry Eye, Exophthalmos, Floaters, Irritation, Itchy Eyes, Loss of Peripheral Vision, Pain, Photophobia, Requires Corrective Lenses, Sees Flashes, Spots in Vision, Tunnel Vision, Other Visual Disturbances, Loss of Vision, Other Ears: absent: As Per HPI, Decreased Hearing, Ear Discharge, Ear Pain, Tinnitus, Abnormal Hearing, Disequilibrium, Dizziness, Other Nose/Mouth/Throat: absent: As Per HPI, Epistaxis, Nasal Congestion, Nasal Discharge, Nasal Obstruction, Nasal Trauma, Nose Pain, Post Nasal Drip, Sinus Pain, Sinus Pressure, Bleeding Gums, Change in Voice, Dental Pain, Dry Mouth, Dysphagia, Halitosis, Hoarsness, Lip Swelling, Mouth Lesions, Mouth Pain, Odynophagia, Sore Throat, Throat Swelling, Tongue Swelling, Facial Pain, Neck Pain, Neck Mass, Other - Breasts Breasts: As Per HPI - Cardiovascular Cardiovascular: absent: As Per HPI, Acrocyanosis, Chest Pain, Chest Pain at Rest , Chest Pain with Activity, Claudication, Diaphoresis, Dyspnea, Dyspnea on Exertion, Edema, Irregular Heart Rhythm, Pain Radiating to Arm/Neck/Jaw, Leg Edema, Leg Ulcers, Lightheadedness, Orthopnea, Palpitations, Paroxysmal Nocturnal Dyspnea, Pedal Edema, Radiating Pain, Rapid Heart Rate, Slow Heart Rate, Syncope, Other - Respiratory Respiratory: absent: As Per HPI, Cough, Dyspnea, Hemoptysis, Dyspnea on Exertion , Wheezing, Snoring, Stridor, Pain on Inspiration, Chest Congestion, Excessive Mucous Production, Change in Mucous Color, Pain with Coughing, Other - Gastrointestinal Gastrointestinal: As Per HPI - Genitourinary Genitourinary: As Per HPI - Reproductive: Female Reproductive:Female: absent: As Per HPI, Amenorrhea, Amenorrhea/ Control, Currently Menstual, Cycle <21 Days, Cycle >35 Days, Cycle Variable, Menses 1-7 Days, Menses >/= 8 Days, Menses Variable, Cycle > 4 Weeks Between, No Menses for 6 Months, Heavy Menses, Light Menses, Normal Menses, Spotting Between Cycles , S/P Hysterectomy, Menopausal, Post Menopausal, Premenarche, Abnormal Vaginal Bleeding, Dysmenorrhea, Dyspareunia, Genital Lesions, Genital Pruritis, Pelvic Pain, Prolapse Symptoms, Sexual Dysfunction, Vaginal Discharge, Vaginal Dryness , Vaginal Odor, Vaginal Pruritis, Other - Menstruation Menstruation: absent: As Per HPI, Amenorrhea, Amenorrhea/ Control, Currently Menstual, Cycle <21 Days, Cycle >35 Days, Cycle Variable, Menses 1-7 Days, Menses >/= 8 Days, Menses Variable, Cycle > 4 Weeks Between, No Menses for 6 Months, Heavy Menses, Light Menses, Normal Menses, Spotting Between Cycles , S/P Hysterectomy, Menopausal, Post Menopausal, Premenarche, Abnormal Vaginal Bleeding, Dysmenorrhea, Other - Musculoskeletal Musculoskeletal: absent: As Per HPI, Abnormal Gait, Arthralgias, Atrophy, Back Pain, Deformity, Joint Swelling, Limited Range of Motion, Loss of Height, Muscle Cramps, Muscle Weakness, Myalgias, Neck Pain, Numbness, Radiating Pain into Limb, Stiffness, Tingling, Other - Integumentary Integumentary: absent: As Per HPI, Acne, Alopecia, Bleeding Lesions, Change in Hair, Change in Nails, Change in Pigmentation, Changing Lesions, Dry Skin, Erythema, Furuncle, Hirsutism, Lesions, New Lesions, Non-Healing Lesions, Photosensitivity, Pruritus, Rash, Skin Pain, Skin Ulcer, Sores, Striae, Swelling , Unusual Bruising, Wounds, Jaundice, Other - Neurological Neurological: absent: As Per HPI, Abnormal Gait, Abnormal Hearing, Abnormal Movements, Abnormal Speech, Behavioral Changes, Burning Sensations, Confusion, Convulsions, Disequilibrium, Dizziness, Numbness, Focal Weakness, Frequent Falls , Headaches, Lack of Coordination, Loss of Vision, Memory Loss, Paresthesias, Radicular Pain, Restless Legs, Sensory Deficit, Syncope, Tingling, Tremor, Vertigo, Weakness, Other Visual Disturbances, Other - Psychiatric Psychiatric: absent: As Per HPI, Abnormal Sleep Pattern, Anhedonia, Anxiety, Auditory Hallucinations, Behavioral Changes, Change in Appetite, Change in Libido, Confusion, Depression, Difficulty Concentrating, Hallucinations, Homicidal Ideation, Hopelessness, Irritability, Memory Loss, Mood Swings, Panic Attacks, Paranoia, Suicidal Ideation, Visual Hallucinations, Tactile Hallucinations, Other - Endocrine Endocrine: absent: As Per HPI, Change in Body Appearance, Change in Libido, Cold Intolorance, Deepening of Voice, Excessive Sweating, Fatigue, Flushing, Heat Intolorance, Increase in Ring/Shoe/Hat Size, Palpitations, Polydipsia, Polyphagia, Polyuria, Other - Hematologic/Lymphatic Hematologic: absent: As Per HPI, Easy Bleeding, Easy Bruising, Lymphadenopathy, Other Past Patient History - Past Social History Smoking Status: Never Smoked - ENDOCRINE/METABOLIC Hx Hyperthyroidism: Yes - MUSCULOSKELETAL/RHEUMATOLOGICAL Hx Falls: No - GASTROINTESTINAL Hx Colitis: Yes Hx Gastroesophageal Reflux: Yes - GENITOURINARY/GYNECOLOGICAL Hx Urinary Tract Infection: Yes - PSYCHIATRIC Hx Substance Use: No - SURGICAL HISTORY Hx Surgeries: Yes Other/Comment: Nephrostomy insertion - ANESTHESIA Hx Anesthesia: Yes Hx Anesthesia Reactions: No Meds Allergies/Adverse Reactions: Allergies Allergy/AdvReac Type Severity Reaction Status Date / Time No Known Allergies Allergy Verified 04/04/17 16:06 - Medications Medications: Current Medications Acetaminophen (Tylenol 325mg Tab) 650 mg PO Q4 PRN PRN Reason: Fever >100.4 F Ascorbic Acid (Vitamin C 500 Mg Tab) 500 mg PO DAILY [facility] Last Admin: 04/06/17 10:27 Dose: 500 mg Enoxaparin Sodium (Lovenox) 40 mg SC DAILY [facility] Piperacillin Sod/Tazobactam (Sod 3.375 gm/ Sodium Chloride) 100 mls @ 200 mls/ hr IVPB Q6H [facility] Last Admin: 04/06/17 14:30 Dose: 200 mls/hr Ceftriaxone Sodium (Rocephin Iv 1 Gm Duplex) 50 mls @ 100 mls/hr IVPB DAILY [facility] Last Admin: 04/06/17 10:27 Dose: 100 mls/hr Dextrose/Sodium Chloride (Dextrose 5%/0.45% Ns 1000 Ml) 1,000 mls @ 75 mls/hr IV .[id number] [facility] Last Admin: 04/06/17 12:07 Dose: 75 mls/hr Insulin Aspart (Novolog) 0 unit SC ACHS [facility] PRN Reason: Protocol Last Admin: 04/06/17 18:00 Dose: Not Given Lactobacillus Acidophilus (Bacid Acidophilus) 1 cap PO DAILY [facility] Last Admin: 04/06/17 10:27 Dose: 1 cap Magnesium Oxide (Mag-Ox) 400 mg PO DAILY [facility] Last Admin: 04/06/17 10:27 Dose: 400 mg Ondansetron HCl (Zofran Inj) 4 mg IVP Q4 PRN PRN Reason: Nausea/Vomiting Pantoprazole Sodium (Protonix Ec Tab) 40 mg PO DAILY [facility] Last Admin: 04/06/17 10:27 Dose: 40 mg Zinc Sulfate (Zinc Sulfate 220 Mg Cap) 220 mg PO DAILY [facility] Last Admin: 04/06/17 10:27 Dose: 220 mg Physical Exam - Constitutional Appears: Non-toxic, Cachectic, Chronically Ill - Head Exam Head Exam: ATRAUMATIC, NORMAL INSPECTION, NORMOCEPHALIC - Eye Exam Eye Exam: EOMI, PERRL. absent: Scleral icterus - ENT Exam ENT Exam: Mucous Membranes Dry, Normal External Ear Exam - Neck Exam Neck exam: Negative for: Lymphadenopathy - Respiratory Exam Respiratory Exam: Decreased Breath Sounds, Rhonchi - Cardiovascular Exam Cardiovascular Exam: REGULAR RHYTHM, +S1 - GI/Abdominal Exam GI & Abdominal Exam: Diminished Bowel Sounds, Soft, Tenderness - Rectal Exam Rectal Exam: Deferred - Exam Exam: NORMAL INSPECTION - Extremities Exam Extremities exam: Positive for: pedal pulses present. Negative for: calf tenderness, pedal edema, tenderness - Back Exam Back exam: absent: CVA tenderness (L), CVA tenderness (R), paraspinal tenderness - Neurological Exam Neurological exam: Alert, CN II-XII Intact, Oriented x3, Reflexes Normal - Psychiatric Exam Psychiatric exam: Normal Mood - Skin Skin Exam: Dry, Intact Results - Vital Signs Recent Vital Signs: Last Vital Signs Temp 97.4 F L 04/06/17 15:05 Pulse 88 04/06/17 15:05 Resp 18 04/06/17 15:05 BP 104/68 04/06/17 15:05 Pulse Ox 100 04/06/17 15:05 - Labs Result Diagrams: 04/07/17 07:11 04/07/17 07:11 Labs: Laboratory Results - last 24 hr 04/05/17 04/06/17 04/06/17 21:57 02:46 02:46 WBC 4.7 L RBC 3.16 L Hgb 8.6 L Hct 25.9 L MCV 82.1 MCH 27.3 MCHC 33.3 RDW 14.9 H Plt Count 454 H MPV 6.9 L Neut % (Auto) 53.4 Lymph % (Auto) 28.9 [place] % (Auto) 14.5 H Eos % (Auto) 1.9 Baso % (Auto) 1.3 Neut # 2.5 Lymph # 1.4 [place] # 0.7 Eos # 0.1 Baso # 0.1 Sodium 141 Potassium 4.1 Chloride 115 H Carbon Dioxide 14 L Anion Gap 16 BUN 5 L Creatinine 0.6 L Est GFR ( Amer) > 60 Est GFR (Non-Af Amer) > 60 POC Glucose (mg/dL) 126 H Random Glucose 89 Calcium 8.4 L Total Bilirubin < 0.1 L AST 9 L D ALT 16 Alkaline Phosphatase 113 Total Protein 5.9 L Albumin 2.1 L Globulin 3.9 Albumin/Globulin Ratio 0.5 L 04/06/17 04/06/17 04/06/17 06:55 11:45 12:07 WBC RBC Hgb Hct MCV MCH MCHC RDW Plt Count MPV Neut % (Auto) Lymph % (Auto) [place] % (Auto) Eos % (Auto) Baso % (Auto) Neut # Lymph # [place] # Eos # Baso # Sodium Potassium Chloride Carbon Dioxide Anion Gap BUN Creatinine Est GFR ( Amer) Est GFR (Non-Af Amer) POC Glucose (mg/dL) 85 70 87 Random Glucose Calcium Total Bilirubin AST ALT Alkaline Phosphatase Total Protein Albumin Globulin Albumin/Globulin Ratio 04/06/17 16:35 WBC RBC Hgb Hct MCV MCH MCHC RDW Plt Count MPV Neut % (Auto) Lymph % (Auto) [place] % (Auto) Eos % (Auto) Baso % (Auto) Neut # Lymph # [place] # Eos # Baso # Sodium Potassium Chloride Carbon Dioxide Anion Gap BUN Creatinine Est GFR ( Amer) Est GFR (Non-Af Amer) POC Glucose (mg/dL) 82 Random Glucose Calcium Total Bilirubin AST ALT Alkaline Phosphatase Total Protein Albumin Globulin Albumin/Globulin Ratio Assessment & Plan - Assessment and Plan (Free Text) Assessment: 61 y/o F s/p hysterectomy and b/l nephrostomy tubes w/ abdominal pain and CT findings of pelvic abscess and urethral catheter located in the colon - pt has nonfunctioning bladder 2/2 B/L nephrostomy tubes; suprapubic swelling is likely 2/2 pelvic abscess seen on CT POSSIBLE OR DRAINAGE/REPAIR CONT IV ANTIBIOTICS
--- NOTE | 2017-04-06 20:46 | CP.PCM.PN ---
Subjective - Date & Time of Evaluation Date of Evaluation: 04/06/17 Time of Evaluation: 13:00 - Subjective Subjective: clinically same Objective - Vital Signs/Intake and Output Vital Signs (last 24 hours): Temp Pulse Resp BP Pulse Ox 97.4 F L 88 18 104/68 100 04/06/17 15:05 04/06/17 15:05 04/06/17 15:05 04/06/17 15:05 04/06/17 15:05 Intake and Output: 04/06/17 04/07/17 18:59 06:59 Intake Total 675 Output Total 500 Balance 175 - Medications Medications: Current Medications Acetaminophen (Tylenol 325mg Tab) 650 mg PO Q4 PRN PRN Reason: Fever >100.4 F Ascorbic Acid (Vitamin C 500 Mg Tab) 500 mg PO DAILY [facility] Last Admin: 04/06/17 10:27 Dose: 500 mg Enoxaparin Sodium (Lovenox) 40 mg SC DAILY [facility] Piperacillin Sod/Tazobactam (Sod 3.375 gm/ Sodium Chloride) 100 mls @ 200 mls/ hr IVPB Q6H [facility] Last Admin: 04/06/17 14:30 Dose: 200 mls/hr Ceftriaxone Sodium (Rocephin Iv 1 Gm Duplex) 50 mls @ 100 mls/hr IVPB DAILY [facility] Last Admin: 04/06/17 10:27 Dose: 100 mls/hr Dextrose/Sodium Chloride (Dextrose 5%/0.45% Ns 1000 Ml) 1,000 mls @ 75 mls/hr IV .[id number] [facility] Last Admin: 04/06/17 12:07 Dose: 75 mls/hr Insulin Aspart (Novolog) 0 unit SC ACHS [facility] PRN Reason: Protocol Last Admin: 04/06/17 18:00 Dose: Not Given Lactobacillus Acidophilus (Bacid Acidophilus) 1 cap PO DAILY [facility] Last Admin: 04/06/17 10:27 Dose: 1 cap Magnesium Oxide (Mag-Ox) 400 mg PO DAILY [facility] Last Admin: 04/06/17 10:27 Dose: 400 mg Ondansetron HCl (Zofran Inj) 4 mg IVP Q4 PRN PRN Reason: Nausea/Vomiting Pantoprazole Sodium (Protonix Ec Tab) 40 mg PO DAILY [facility] Last Admin: 04/06/17 10:27 Dose: 40 mg Zinc Sulfate (Zinc Sulfate 220 Mg Cap) 220 mg PO DAILY [facility] Last Admin: 04/06/17 10:27 Dose: 220 mg - Labs Labs: 04/06/17 02:46 04/06/17 02:46 PT 11.4 SECONDS (9.7-12.2) 04/04/17 16:41 INR 1.0 04/04/17 16:41 APTT 18 SECONDS (21-34) L 04/04/17 16:41 - Constitutional Appears: Well - Head Exam Head Exam: ATRAUMATIC, NORMAL INSPECTION, NORMOCEPHALIC - Eye Exam Eye Exam: EOMI, Normal appearance, PERRL Pupil Exam: NORMAL ACCOMODATION, PERRL - ENT Exam ENT Exam: Mucous Membranes Moist, Normal Exam - Neck Exam Neck Exam: Full ROM, Normal Inspection. absent: Lymphadenopathy - Respiratory Exam Respiratory Exam: Decreased Breath Sounds - Cardiovascular Exam Cardiovascular Exam: REGULAR RHYTHM, +S1, +S2. absent: Murmur - GI/Abdominal Exam GI & Abdominal Exam: Soft, Normal Bowel Sounds. absent: Tenderness - Rectal Exam Rectal Exam: Deferred - Back Exam Back Exam: NORMAL INSPECTION - Neurological Exam Neurological Exam: Alert, Awake, CN II-XII Intact, Normal Gait, Oriented x3 - Psychiatric Exam Psychiatric exam: Normal Affect, Normal Mood - Skin Skin Exam: Dry, Intact, Normal Color, Warm Assessment and Plan (1) Colonic fistula Status: Acute (2) Displacement of Mckeon catheter Status: Acute - Assessment and Plan (Free Text) Plan: CT abdomen plus pelvis suggestive of gas and fluid collection in the cyst cystectomy bag possibility of abscess. Urethral balloon tip catheter is directed into a bowel loop in the right lower quadrant and appears to terminate at the level of descending colon. Osteomyelitis of the symphysis pubis. Left renal atrophy and bilateral percutaneous nephrostomy catheters in situ. Patient hypotensive overnight responded to fluid bolus. Continued upper abdominal pain. Surgery tomorrow. N.p.o. Continue normal saline at 75 cc/h. Initial creatinine and cilastatin. Insulin. Supportive care. ID consult done. Advised to continue IV antibiotics. Laboratory report shows reduced Hb at 8.6.
--- NOTE | 2017-04-06 21:44 | CP.PCM.CON ---
History of Present Illness - History of Present Illness History of Present Illness: CC: Pre Operative Cardiac Risk assessment 61 yo F brought in from shelter with persistent abdominal pain. Patient states that she has had peristent abdominal pain for 15 days. She had surgery at [facility] [place] ~4months ago and states she hasn't had any issues in the shelter until recently. Upon review of the chart it appears patient had a cystectomy and B/L nephrostomy tubes placed. She also has a urinary catheter in place which the patient states was placed 'a long time ago'. She denies any inciting events but describes it as a diffuse abdominal pain radiating to the back and associated with occasional rectal discomfort. She denies any N/V but states she does not eat well. She has soft/liquid bowel movements almost every day and denies blood in the stool. Pt denies F/C, SOB/Chest pain. PMH: patient and family unable to give history other than surgical procedure done PSH: apparent cystectomy with b/l nephrostomy tubes, posible surgical placement of urinary catheter/conduit NKDA Patient was seen in the Ed. Vitals stable and WNL, Labs relatively unremarkable. A CT was done which showed an abscess in the cystectomy bed, and a urethral balloon tipped catheter directed into the bowel and terminating in the in the descending colon. Review of Systems - Review of Systems All systems: reviewed and no additional remarkable complaints except (as per HPI ) Physical Exam - Constitutional Appears: No Acute Distress, Cachectic - Head Exam Head Exam: ATRAUMATIC, NORMAL INSPECTION, NORMOCEPHALIC - ENT Exam ENT Exam: Mucous Membranes Dry - Respiratory Exam Respiratory Exam: NORMAL BREATHING PATTERN. absent: Respiratory Distress - Cardiovascular Exam Cardiovascular Exam: REGULAR RHYTHM Additional comments: tachy in 90s - GI/Abdominal Exam GI & Abdominal Exam: Guarding, Soft, Tenderness. absent: Distended, Hernia Additional comments: midline scar with depressions which may have been related to a prior ileal conduit Urethral catheter in place with no drainage B/L nephrostomy tubes in place with cloudy urine output - Rectal Exam Rectal Exam: NORMAL INSPECTION Additional comments: small superficial sacral excoriation - Extremities Exam Extremities exam: Positive for: normal inspection - Neurological Exam Neurological exam: Alert - Psychiatric Exam Psychiatric exam: Normal Affect, Normal Mood - Skin Skin Exam: Dry, Intact Past Patient History - Past Social History Smoking Status: Never Smoked - ENDOCRINE/METABOLIC Hx Hyperthyroidism: Yes - MUSCULOSKELETAL/RHEUMATOLOGICAL Hx Falls: No - GASTROINTESTINAL Hx Colitis: Yes Hx Gastroesophageal Reflux: Yes - GENITOURINARY/GYNECOLOGICAL Hx Urinary Tract Infection: Yes - PSYCHIATRIC Hx Substance Use: No - SURGICAL HISTORY Hx Surgeries: Yes Other/Comment: Nephrostomy insertion - ANESTHESIA Hx Anesthesia: Yes Hx Anesthesia Reactions: No Meds Allergies/Adverse Reactions: Allergies Allergy/AdvReac Type Severity Reaction Status Date / Time No Known Allergies Allergy Verified 04/04/17 16:06 - Medications Medications: Current Medications Acetaminophen (Tylenol 325mg Tab) 650 mg PO Q4 PRN PRN Reason: Fever >100.4 F Ascorbic Acid (Vitamin C 500 Mg Tab) 500 mg PO DAILY [facility] Last Admin: 04/06/17 10:27 Dose: 500 mg Enoxaparin Sodium (Lovenox) 40 mg SC DAILY [facility] Piperacillin Sod/Tazobactam (Sod 3.375 gm/ Sodium Chloride) 100 mls @ 200 mls/ hr IVPB Q6H [facility] Last Admin: 04/06/17 21:12 Dose: 200 mls/hr Ceftriaxone Sodium (Rocephin Iv 1 Gm Duplex) 50 mls @ 100 mls/hr IVPB DAILY [facility] Last Admin: 04/06/17 10:27 Dose: 100 mls/hr Dextrose/Sodium Chloride (Dextrose 5%/0.45% Ns 1000 Ml) 1,000 mls @ 75 mls/hr IV .[id number] [facility] Last Admin: 04/06/17 12:07 Dose: 75 mls/hr Insulin Aspart (Novolog) 0 unit SC ACHS [facility] PRN Reason: Protocol Last Admin: 04/06/17 18:00 Dose: Not Given Lactobacillus Acidophilus (Bacid Acidophilus) 1 cap PO DAILY [facility] Last Admin: 04/06/17 10:27 Dose: 1 cap Magnesium Oxide (Mag-Ox) 400 mg PO DAILY [facility] Last Admin: 04/06/17 10:27 Dose: 400 mg Ondansetron HCl (Zofran Inj) 4 mg IVP Q4 PRN PRN Reason: Nausea/Vomiting Pantoprazole Sodium (Protonix Ec Tab) 40 mg PO DAILY [facility] Last Admin: 04/06/17 10:27 Dose: 40 mg Zinc Sulfate (Zinc Sulfate 220 Mg Cap) 220 mg PO DAILY [facility] Last Admin: 04/06/17 10:27 Dose: 220 mg Results - Vital Signs Recent Vital Signs: Last Vital Signs Temp 97.4 F L 04/06/17 15:05 Pulse 88 04/06/17 15:05 Resp 18 04/06/17 15:05 BP 104/68 04/06/17 15:05 Pulse Ox 100 04/06/17 15:05 - Labs Result Diagrams: 04/06/17 02:46 04/06/17 02:46 Labs: Laboratory Results - last 24 hr 04/05/17 04/06/17 04/06/17 21:57 02:46 02:46 WBC 4.7 L RBC 3.16 L Hgb 8.6 L Hct 25.9 L MCV 82.1 MCH 27.3 MCHC 33.3 RDW 14.9 H Plt Count 454 H MPV 6.9 L Neut % (Auto) 53.4 Lymph % (Auto) 28.9 [place] % (Auto) 14.5 H Eos % (Auto) 1.9 Baso % (Auto) 1.3 Neut # 2.5 Lymph # 1.4 [place] # 0.7 Eos # 0.1 Baso # 0.1 Sodium 141 Potassium 4.1 Chloride 115 H Carbon Dioxide 14 L Anion Gap 16 BUN 5 L Creatinine 0.6 L Est GFR ( Amer) > 60 Est GFR (Non-Af Amer) > 60 POC Glucose (mg/dL) 126 H Random Glucose 89 Calcium 8.4 L Total Bilirubin < 0.1 L AST 9 L D ALT 16 Alkaline Phosphatase 113 Total Protein 5.9 L Albumin 2.1 L Globulin 3.9 Albumin/Globulin Ratio 0.5 L 04/06/17 04/06/17 04/06/17 06:55 11:45 12:07 WBC RBC Hgb Hct MCV MCH MCHC RDW Plt Count MPV Neut % (Auto) Lymph % (Auto) [place] % (Auto) Eos % (Auto) Baso % (Auto) Neut # Lymph # [place] # Eos # Baso # Sodium Potassium Chloride Carbon Dioxide Anion Gap BUN Creatinine Est GFR ( Amer) Est GFR (Non-Af Amer) POC Glucose (mg/dL) 85 70 87 Random Glucose Calcium Total Bilirubin AST ALT Alkaline Phosphatase Total Protein Albumin Globulin Albumin/Globulin Ratio 04/06/17 16:35 WBC RBC Hgb Hct MCV MCH MCHC RDW Plt Count MPV Neut % (Auto) Lymph % (Auto) [place] % (Auto) Eos % (Auto) Baso % (Auto) Neut # Lymph # [place] # Eos # Baso # Sodium Potassium Chloride Carbon Dioxide Anion Gap BUN Creatinine Est GFR ( Amer) Est GFR (Non-Af Amer) POC Glucose (mg/dL) 82 Random Glucose Calcium Total Bilirubin AST ALT Alkaline Phosphatase Total Protein Albumin Globulin Albumin/Globulin Ratio Assessment & Plan - Assessment and Plan (Free Text) Assessment: 61 F difficult historian Normal LV and valvular function No known CAD Do not recommend any further cardiac work up due to poor general condition Cardiac Risk: Atleast Moderate No idea about CAD If benefit outweighs the risk please proceed with the surgery since further cardiac risk assessment is not possible Recommend to d/w with the family about the need for the surgery and unpredictablity of the Cardiac events Will follow
--- NOTE | 2017-04-06 22:31 | CARD ---
APPROVED REPORT EXAM: Two-dimensional and M-mode echocardiogram with Doppler and color Doppler. Other Information Quality : GoodRhythm : NSR INDICATION Pre-Op/ Abdominal Abcess 2D DIMENSIONS IVSd0.7 (0.7-1.1cm)LVDd3.9 (3.9-5.9cm) PWd0.7 (0.7-1.1cm)LVDs2.6 (2.5-4.0cm) FS (%) 32.7 %LVEF (%)61.7 (>50%) M-Mode DIMENSIONS RVDd2.11 (2.1-3.2cm)Left Atrium (MM)2.39 (2.5-4.0cm) IVSd0.60 (0.7-1.1cm)Aortic Root2.24 (2.2-3.7cm) LVDd4.45 (4.0-5.6cm)Aortic Cusp Exc.1.67 (1.5-2.0cm) PWd0.57 (0.7-1.1cm)FS (%) 36 % LVDs2.86 (2.0-3.8cm)LVEF (%)65 (>50%) Mitral Valve MV E [id number]/sMV A Dkewbajm45.9cm/s Tricuspid Valve TR Peak [id number] Peak [id number] LEFT VENTRICLE The left ventricle is normal size. There is normal left ventricular wall thickness. Left ventricle systolic function is normal. The Ejection Fraction is 60-65%. There is normal LV segmental wall motion. Transmitral Doppler flow pattern is Grade I-abnormal relaxation pattern. There is no ventricular septal defect visualized. RIGHT VENTRICLE The right ventricle is normal size. There is normal right ventricular wall thickness. ATRIA The left atrium size is normal. The right atrium size is normal. AORTIC VALVE The aortic valve is mildly sclerotic. The aortic valve is tri-cuspid. No aortic regurgitation is present. There is no aortic valvular stenosis. MITRAL VALVE Mitral annular calcification is mild. There is no evidence of mitral valve prolapse. There is no mitral valve regurgitation noted. TRICUSPID VALVE The tricuspid valve is normal in structure. There is trace tricuspid regurgitation. Right ventricular systolic pressure is estimated at 30-40 mmHg. There is mild pulmonary hypertension. PULMONIC VALVE The pulmonic valve is not well visualized. There is no pulmonic valvular regurgitation. GREAT VESSELS The aortic root is normal in size. The IVC is normal in size and collapses >50% with inspiration. PERICARDIAL EFFUSION There is no pericardial effusion. <Conclusion> Left ventricle systolic function is normal. The Ejection Fraction is 60-65%. There is mild pulmonary hypertension.
[2017-04-07] MEDS: Piperacillin/Tazobact 3.375 GM in Sodium Chloride 100 ML IVPB SCH ×4 (00:19→19:15)
[2017-04-07] MEDS: Dextrose 5%/0.45% NS 1,000 ML IV SCH ×2 (01:00→05:24)
[2017-04-07 07:26] LABS: BASO % 1.1 % (0.0-2.0); EOS # 0.2 K/uL (0.0-0.7); EOS % 4.2 % (0.0-4.0); HEMATOCRIT 26.6 % (34.0-47.0); LYMPH # 1.3 K/uL (1.0-4.3); LYMPH % 29.2 % (20.0-40.0); MEAN CORPUSCULAR HEMOGLOBIN 27.8 pg (27.0-31.0); MEAN CORPUSCULAR HGB CONC 33.9 g/dL (33.0-37.0); MEAN PLATELET VOLUME 6.9 fL (7.2-11.7); MONO # 0.6 K/uL (0.0-0.8); MONO % 12.7 % (0.0-10.0); WHITE BLOOD COUNT 4.4 K/uL (4.8-10.8)
[2017-04-07 08:06] LABS: CHLORIDE 112 mmol/L (98-107)
[2017-04-07 08:07] LABS: POTASSIUM 3.2 mmol/L (3.6-5.2); SODIUM 140 mmol/L (132-148)
[2017-04-07 08:09] LABS: ALB/GLOB RATIO 0.5 (1.0-2.1); ALKALINE PHOSPHATASE 109 U/L (38-126); AST/SGOT 12 U/L (14-36); BILIRUBIN,TOTAL 0.1 mg/dL (0.2-1.3); CARBON DIOXIDE 17 mmol/L (22-30); GFR AFRICAN-AMERICAN > 60; GLUCOSE,RANDOM 127 mg/dL (65-105); TOTAL PROTEIN 5.8 g/dL (6.3-8.3)
[2017-04-07 08:10] LABS: ALT/SGPT 18 U/L (9-52); CALCIUM 8.4 mg/dl (8.6-10.4)
[2017-04-07 08:21] LABS: BLOOD UREA NITROGEN 2 mg/dL (7-17)
--- NOTE | 2017-04-07 08:27 | CP.PCM.PN ---
<Casey Cavazos - Last Filed: 04/07/17 08:24> Subjective - Date & Time of Evaluation Date of Evaluation: 04/07/17 Time of Evaluation: 08:24 - Subjective Subjective: Surgery Pt s&e. NAEON. Pain controlled. Objective - Vital Signs/Intake and Output Vital Signs (last 24 hours): Temp Pulse Resp BP Pulse Ox 97.7 F 82 20 115/73 100 04/06/17 23:28 04/07/17 02:00 04/06/17 23:28 04/06/17 23:28 04/06/17 23:28 Intake and Output: 04/07/17 04/07/17 06:59 18:59 Intake Total 850 Output Total 500 Balance 350 - Medications Medications: Current Medications Acetaminophen (Tylenol 325mg Tab) 650 mg PO Q4 PRN PRN Reason: Fever >100.4 F Ascorbic Acid (Vitamin C 500 Mg Tab) 500 mg PO DAILY [facility] Last Admin: 04/06/17 10:27 Dose: 500 mg Enoxaparin Sodium (Lovenox) 40 mg SC DAILY [facility] Piperacillin Sod/Tazobactam (Sod 3.375 gm/ Sodium Chloride) 100 mls @ 200 mls/ hr IVPB Q6H [facility] Last Admin: 04/07/17 05:52 Dose: 200 mls/hr Ceftriaxone Sodium (Rocephin Iv 1 Gm Duplex) 50 mls @ 100 mls/hr IVPB DAILY [facility] Last Admin: 04/06/17 10:27 Dose: 100 mls/hr Dextrose/Sodium Chloride (Dextrose 5%/0.45% Ns 1000 Ml) 1,000 mls @ 75 mls/hr IV .[id number] [facility] Last Admin: 04/07/17 05:24 Dose: 75 mls/hr Insulin Aspart (Novolog) 0 unit SC ACHS [facility] PRN Reason: Protocol Last Admin: 04/06/17 22:00 Dose: Not Given Lactobacillus Acidophilus (Bacid Acidophilus) 1 cap PO DAILY [facility] Last Admin: 04/06/17 10:27 Dose: 1 cap Magnesium Oxide (Mag-Ox) 400 mg PO DAILY [facility] Last Admin: 04/06/17 10:27 Dose: 400 mg Ondansetron HCl (Zofran Inj) 4 mg IVP Q4 PRN PRN Reason: Nausea/Vomiting Pantoprazole Sodium (Protonix Ec Tab) 40 mg PO DAILY [facility] Last Admin: 04/06/17 10:27 Dose: 40 mg Zinc Sulfate (Zinc Sulfate 220 Mg Cap) 220 mg PO DAILY [facility] Last Admin: 04/06/17 10:27 Dose: 220 mg - Labs Labs: 04/07/17 07:11 04/07/17 07:11 PT 11.4 SECONDS (9.7-12.2) 04/04/17 16:41 INR 1.0 04/04/17 16:41 APTT 18 SECONDS (21-34) L 04/04/17 16:41 - Constitutional Appears: Non-toxic - Head Exam Head Exam: ATRAUMATIC, NORMAL INSPECTION, NORMOCEPHALIC - Eye Exam Eye Exam: EOMI, Normal appearance, PERRL Pupil Exam: NORMAL ACCOMODATION, PERRL - ENT Exam ENT Exam: Mucous Membranes Moist, Normal Exam - Neck Exam Neck Exam: Full ROM, Normal Inspection. absent: Lymphadenopathy - GI/Abdominal Exam GI & Abdominal Exam: Soft, Normal Bowel Sounds. absent: Tenderness - Exam Additional comments: b/l nephrostomy tube in place. Mckeon in place. - Extremities Exam Extremities Exam: Normal Capillary Refill - Back Exam Back Exam: NORMAL INSPECTION - Neurological Exam Neurological Exam: Alert, Awake, CN II-XII Intact, Oriented x3 - Skin Skin Exam: Dry, Intact, Normal Color, Warm Assessment and Plan - Assessment and Plan (Free Text) Assessment: 61 y/o F s/p hysterectomy and b/l nephrostomy tubes w/ abdominal pain and CT findings of pelvic abscess and urethral catheter located in the colon - pt has nonfunctioning bladder 2/2 B/L nephrostomy tubes; suprapubic swelling is likely 2/2 pelvic abscess seen on CT -FLD, niutrionally optimize before surgery. PPN, ensure - IVF - pain management -Cardiology cleared for surgery - Surgery scheduled for Mon - continue medical management Will Dw/ Dr. Cabral <Sumeet Cabral - Last Filed: 04/09/17 21:24> Objective - Vital Signs/Intake and Output Vital Signs (last 24 hours): Temp Pulse Resp BP Pulse Ox 98.4 F 106 H 20 119/80 98 04/09/17 16:00 04/09/17 16:00 04/09/17 16:00 04/09/17 16:00 04/09/17 16:00 Intake and Output: 04/09/17 04/10/17 18:59 06:59 Intake Total 240 Output Total 230 Balance 10 - Medications Medications: Current Medications Acetaminophen (Tylenol 325mg Tab) 650 mg PO Q4 PRN PRN Reason: Fever >100.4 F Ascorbic Acid (Vitamin C 500 Mg Tab) 500 mg PO DAILY [facility] Last Admin: 04/09/17 10:18 Dose: 500 mg Enoxaparin Sodium (Lovenox) 40 mg SC DAILY [facility] Last Admin: 04/09/17 10:19 Dose: 40 mg Imipenem/Cilastatin Sodium 500 (mg/ Sodium Chloride) 100 mls @ 100 mls/hr IVPB Q6H [facility] Last Admin: 04/09/17 16:30 Dose: 100 mls/hr Amino Acids (Clinimix 4.25/5 % "E" (1000 Ml)) 1,000 mls @ 83 mls/hr IV .Q12H3M ONE Stop: 04/10/17 06:02 Last Admin: 04/09/17 18:49 Dose: 83 mls/hr Amino Acids (Clinimix 4.25/5 % "E" (1000 Ml)) 1,000 mls @ 83 mls/hr IV .Q12H3M ONE Stop: 04/10/17 18:05 Insulin Aspart (Novolog) 0 unit SC ACHS [facility] PRN Reason: Protocol Last Admin: 04/09/17 17:00 Dose: 2 unit Lactobacillus Acidophilus (Bacid Acidophilus) 1 cap PO DAILY [facility] Last Admin: 04/09/17 10:18 Dose: 1 cap Magnesium Oxide (Mag-Ox) 400 mg PO DAILY [facility] Last Admin: 04/09/17 10:18 Dose: 400 mg Ondansetron HCl (Zofran Inj) 4 mg IVP Q4 PRN PRN Reason: Nausea/Vomiting Pantoprazole Sodium (Protonix Ec Tab) 40 mg PO DAILY [facility] Last Admin: 04/09/17 10:18 Dose: 40 mg Zinc Sulfate (Zinc Sulfate 220 Mg Cap) 220 mg PO DAILY [facility] Last Admin: 04/09/17 10:18 Dose: 220 mg - Labs Labs: 04/09/17 09:05 04/09/17 09:05 PT 11.4 SECONDS (9.7-12.2) 04/04/17 16:41 INR 1.0 04/04/17 16:41 APTT 18 SECONDS (21-34) L 04/04/17 16:41 Attending/Attestation - Attestation I have personally seen and examined this patient.: Yes I have fully participated in the care of the patient.: Yes I have reviewed all pertinent clinical information, including history, physical exam and plan: Yes Notes (Text): 04/09/17 21:23 Pt was seen and examined at bedside Agree with above note and assessment Pt with Cecalvesucular fistula Severe malnutrition Spoken to Dr. Whitaker for second openion urology consult. C.w IV antibiotics Reg diet, PPN Plan d.w pt in detail.
[2017-04-07] MEDS ORDERED: Potassium Chloride 20 mEq/15 ml LIQ UD PO ONE (08:30)
--- NOTE | 2017-04-07 08:45 | CP.PCM.CON ---
History of Present Illness - History of Present Illness History of Present Illness: Full note t/f Past Patient History - Past Social History Smoking Status: Never Smoked - ENDOCRINE/METABOLIC Hx Hyperthyroidism: Yes - MUSCULOSKELETAL/RHEUMATOLOGICAL Hx Falls: No - GASTROINTESTINAL Hx Colitis: Yes Hx Gastroesophageal Reflux: Yes - GENITOURINARY/GYNECOLOGICAL Hx Urinary Tract Infection: Yes - PSYCHIATRIC Hx Substance Use: No - SURGICAL HISTORY Hx Surgeries: Yes Other/Comment: Nephrostomy insertion - ANESTHESIA Hx Anesthesia: Yes Hx Anesthesia Reactions: No Meds Allergies/Adverse Reactions: Allergies Allergy/AdvReac Type Severity Reaction Status Date / Time No Known Allergies Allergy Verified 04/04/17 16:06 - Medications Medications: Current Medications Acetaminophen (Tylenol 325mg Tab) 650 mg PO Q4 PRN PRN Reason: Fever >100.4 F Ascorbic Acid (Vitamin C 500 Mg Tab) 500 mg PO DAILY [facility] Last Admin: 04/06/17 10:27 Dose: 500 mg Enoxaparin Sodium (Lovenox) 40 mg SC DAILY [facility] Piperacillin Sod/Tazobactam (Sod 3.375 gm/ Sodium Chloride) 100 mls @ 200 mls/ hr IVPB Q6H [facility] Last Admin: 04/07/17 05:52 Dose: 200 mls/hr Ceftriaxone Sodium (Rocephin Iv 1 Gm Duplex) 50 mls @ 100 mls/hr IVPB DAILY [facility] Last Admin: 04/06/17 10:27 Dose: 100 mls/hr Dextrose/Sodium Chloride (Dextrose 5%/0.45% Ns 1000 Ml) 1,000 mls @ 75 mls/hr IV .[id number] [facility] Last Admin: 04/07/17 05:24 Dose: 75 mls/hr Multivitamins/Vitamin C 10 ml/ (Amino Acids) 1,010 mls @ 83 mls/hr IV .[id number] ONE Stop: 04/08/17 06:10 Amino Acids (Clinimix 4.25/5 % "E" (1000 Ml)) 1,000 mls @ 83 mls/hr IV .Q12H3M ONE Stop: 04/08/17 18:12 Insulin Aspart (Novolog) 0 unit SC ACHS [facility] PRN Reason: Protocol Last Admin: 04/06/17 22:00 Dose: Not Given Lactobacillus Acidophilus (Bacid Acidophilus) 1 cap PO DAILY [facility] Last Admin: 04/06/17 10:27 Dose: 1 cap Magnesium Oxide (Mag-Ox) 400 mg PO DAILY [facility] Last Admin: 04/06/17 10:27 Dose: 400 mg Ondansetron HCl (Zofran Inj) 4 mg IVP Q4 PRN PRN Reason: Nausea/Vomiting Pantoprazole Sodium (Protonix Ec Tab) 40 mg PO DAILY [facility] Last Admin: 04/06/17 10:27 Dose: 40 mg Potassium Chloride (Potassium Chloride Oral Soln) 20 meq PO ONCE ONE Stop: 04/07/17 08:31 Zinc Sulfate (Zinc Sulfate 220 Mg Cap) 220 mg PO DAILY [facility] Last Admin: 04/06/17 10:27 Dose: 220 mg Results - Vital Signs Recent Vital Signs: Last Vital Signs Temp 98 F 04/07/17 07:20 Pulse 92 H 04/07/17 07:20 Resp 18 04/07/17 07:20 BP 99/60 L 04/07/17 07:20 Pulse Ox 100 04/07/17 07:20 - Labs Result Diagrams: 04/07/17 07:11 04/07/17 07:11 Labs: Laboratory Results - last 24 hr 04/06/17 04/06/17 04/06/17 11:45 12:07 16:35 WBC RBC Hgb Hct MCV MCH MCHC RDW Plt Count MPV Neut % (Auto) Lymph % (Auto) [place] % (Auto) Eos % (Auto) Baso % (Auto) Neut # Lymph # [place] # Eos # Baso # Sodium Potassium Chloride Carbon Dioxide Anion Gap BUN Creatinine Est GFR ( Amer) Est GFR (Non-Af Amer) POC Glucose (mg/dL) 70 87 82 Random Glucose Calcium Total Bilirubin AST ALT Alkaline Phosphatase Total Protein Albumin Globulin Albumin/Globulin Ratio 04/06/17 04/07/17 04/07/17 21:51 06:58 07:11 WBC 4.4 L RBC 3.25 L Hgb 9.0 L Hct 26.6 L MCV 82.0 MCH 27.8 MCHC 33.9 RDW 15.0 H Plt Count 390 MPV 6.9 L Neut % (Auto) 52.8 Lymph % (Auto) 29.2 [place] % (Auto) 12.7 H Eos % (Auto) 4.2 H Baso % (Auto) 1.1 Neut # 2.3 Lymph # 1.3 Linn # 0.6 Eos # 0.2 Baso # 0.0 Sodium Potassium Chloride Carbon Dioxide Anion Gap BUN Creatinine Est GFR ( Amer) Est GFR (Non-Af Amer) POC Glucose (mg/dL) 200 H 152 H Random Glucose Calcium Total Bilirubin AST ALT Alkaline Phosphatase Total Protein Albumin Globulin Albumin/Globulin Ratio 04/07/17 07:11 WBC RBC Hgb Hct MCV MCH MCHC RDW Plt Count MPV Neut % (Auto) Lymph % (Auto) [place] % (Auto) Eos % (Auto) Baso % (Auto) Neut # Lymph # Linn # Eos # Baso # Sodium 140 Potassium 3.2 L Chloride 112 H Carbon Dioxide 17 L Anion Gap 14 BUN 2 L Creatinine 0.6 L Est GFR ( Amer) > 60 Est GFR (Non-Af Amer) > 60 POC Glucose (mg/dL) Random Glucose 127 H Calcium 8.4 L Total Bilirubin 0.1 L AST 12 L D ALT 18 Alkaline Phosphatase 109 Total Protein 5.8 L Albumin 2.0 L Globulin 3.8 Albumin/Globulin Ratio 0.5 L Assessment & Plan - Assessment and Plan (Free Text) Assessment: Imp: colovesical fistula anemia hypoalbuminemia malnutrition abdominal pain bilat nephrostomy tubes - Date & Time Date: 04/05/17 Time: 09:40
[2017-04-07] MEDS: Pantoprazole 40 mg EC Tab PO SCH (09:33)
[2017-04-07] MEDS: cefTRIAXone IV 1 gm in Dextros 50 ML IVPB SCH (09:33)
[2017-04-07] MEDS: Magnesium Oxide 400 mg Tab UD PO SCH (09:33)
[2017-04-07] MEDS: Lactobacillus Acidophilus 500 MU Cap PO SCH (09:33)
[2017-04-07] MEDS: (Novolog) Insulin Aspart, Recombinant 100 u/ml 10 ml vial SC SCH ×4 (09:34→22:36)
[2017-04-07] MEDS: Enoxaparin 40 mg Syringe SC SCH (09:34)
--- NOTE | 2017-04-07 09:44 | PCM.URO ---
Urology Progress Note - General General: Tolerating Diet - Subjective Abdominal Pain: Yes Flank Pain: No Vomiting: No Hematuria: No Chest Pain: No Fever & Chills: No Other: prev npo. small po intake today. diarrhea present - Objective Lab Studies: Reviewed Lab Results Last 24 Hours: Laboratory Results - last 24 hr 04/06/17 04/06/17 04/06/17 11:45 12:07 16:35 WBC RBC Hgb Hct MCV MCH MCHC RDW Plt Count MPV Neut % (Auto) Lymph % (Auto) Brooke % (Auto) Eos % (Auto) Baso % (Auto) Neut # Lymph # Brooke # Eos # Baso # Sodium Potassium Chloride Carbon Dioxide Anion Gap BUN Creatinine Est GFR ( Amer) Est GFR (Non-Af Amer) POC Glucose (mg/dL) 70 87 82 Random Glucose Calcium Total Bilirubin AST ALT Alkaline Phosphatase Total Protein Albumin Globulin Albumin/Globulin Ratio Blood Type Blood Type Confirm Antibody Screen 04/06/17 04/07/17 04/07/17 21:51 06:58 07:11 WBC 4.4 L RBC 3.25 L Hgb 9.0 L Hct 26.6 L MCV 82.0 MCH 27.8 MCHC 33.9 RDW 15.0 H Plt Count 390 MPV 6.9 L Neut % (Auto) 52.8 Lymph % (Auto) 29.2 Brooke % (Auto) 12.7 H Eos % (Auto) 4.2 H Baso % (Auto) 1.1 Neut # 2.3 Lymph # 1.3 Brooke # 0.6 Eos # 0.2 Baso # 0.0 Sodium Potassium Chloride Carbon Dioxide Anion Gap BUN Creatinine Est GFR ( Amer) Est GFR (Non-Af Amer) POC Glucose (mg/dL) 200 H 152 H Random Glucose Calcium Total Bilirubin AST ALT Alkaline Phosphatase Total Protein Albumin Globulin Albumin/Globulin Ratio Blood Type Blood Type Confirm Antibody Screen 04/07/17 04/07/17 07:11 07:11 WBC RBC Hgb Hct MCV MCH MCHC RDW Plt Count MPV Neut % (Auto) Lymph % (Auto) Brooke % (Auto) Eos % (Auto) Baso % (Auto) Neut # Lymph # Brooke # Eos # Baso # Sodium 140 Potassium 3.2 L Chloride 112 H Carbon Dioxide 17 L Anion Gap 14 BUN 2 L Creatinine 0.6 L Est GFR ( Amer) > 60 Est GFR (Non-Af Amer) > 60 POC Glucose (mg/dL) Random Glucose 127 H Calcium 8.4 L Total Bilirubin 0.1 L AST 12 L D ALT 18 Alkaline Phosphatase 109 Total Protein 5.8 L Albumin 2.0 L Globulin 3.8 Albumin/Globulin Ratio 0.5 L Blood Type B POSITIVE Blood Type Confirm B POSITIVE Antibody Screen Negative Intake & Output: Intake & Output 04/06/17 04/07/17 04/07/17 18:59 06:59 18:59 Intake Total 675 1450 Output Total 500 500 Balance 175 950 Intake: Intake, IV Amount 525 1250 Left Antecubital 525 1250 Oral 150 200 Output: Drainage 500 500 Left 250 150 Right 250 350 Other: # Bowel Movements 1 Vital Signs: Vital Signs - 24 hr 04/06/17 04/06/17 04/06/17 10:00 10:39 15:05 Temperature 97.4 F L Pulse Rate 100 H 98 H 88 Respiratory 18 Rate Blood Pressure 101/74 104/68 O2 Sat by Pulse 100 Oximetry 04/06/17 04/06/17 04/06/17 17:30 20:00 23:28 Temperature 97.8 F 97.7 F Pulse Rate 97 H 110 H 94 H Respiratory 18 20 Rate Blood Pressure 127/83 115/73 O2 Sat by Pulse 100 100 Oximetry 04/07/17 04/07/17 02:00 07:20 Temperature 98 F Pulse Rate 82 92 H Respiratory 18 Rate Blood Pressure 99/60 L O2 Sat by Pulse 100 Oximetry - Physical Exam Abdominal Exam: Soft, Non-Distended. absent: Non-Tender Bowel Sounds: Normal Back: No CVA Tenderness (bilat NT in place draining well) Urinary Catheter Draining Well: No (no output via gonzalez) - Plan Additional Information: Imp: colo-vesical fistula, of uncertain etiology. P: will discuss re further care. nutritinal support. poss gonzalez cath removal. poss surgery
--- NOTE | 2017-04-07 13:14 | CP.PCM.PN ---
Subjective - Date & Time of Evaluation Date of Evaluation: 04/07/17 Time of Evaluation: 09:00 - Subjective Subjective: AFEBRILE ALERT NAD Objective - Vital Signs/Intake and Output Vital Signs (last 24 hours): Temp Pulse Resp BP Pulse Ox 98 F 105 H 18 99/60 L 100 04/07/17 07:20 04/07/17 08:37 04/07/17 07:20 04/07/17 07:20 04/07/17 07:20 Intake and Output: 04/07/17 04/07/17 06:59 18:59 Intake Total 1450 Output Total 500 Balance 950 - Medications Medications: Current Medications Acetaminophen (Tylenol 325mg Tab) 650 mg PO Q4 PRN PRN Reason: Fever >100.4 F Ascorbic Acid (Vitamin C 500 Mg Tab) 500 mg PO DAILY [facility] Last Admin: 04/07/17 09:33 Dose: 500 mg Enoxaparin Sodium (Lovenox) 40 mg SC DAILY [facility] Last Admin: 04/07/17 09:34 Dose: 40 mg Piperacillin Sod/Tazobactam (Sod 3.375 gm/ Sodium Chloride) 100 mls @ 200 mls/ hr IVPB Q6H [facility] Last Admin: 04/07/17 12:42 Dose: 200 mls/hr Ceftriaxone Sodium (Rocephin Iv 1 Gm Duplex) 50 mls @ 100 mls/hr IVPB DAILY [facility] Last Admin: 04/07/17 09:33 Dose: 100 mls/hr Dextrose/Sodium Chloride (Dextrose 5%/0.45% Ns 1000 Ml) 1,000 mls @ 75 mls/hr IV .[id number] [facility] Last Admin: 04/07/17 05:24 Dose: 75 mls/hr Multivitamins/Vitamin C 10 ml/ (Amino Acids) 1,010 mls @ 83 mls/hr IV .[id number] ONE Stop: 04/08/17 06:10 Amino Acids (Clinimix 4.25/5 % "E" (1000 Ml)) 1,000 mls @ 83 mls/hr IV .Q12H3M ONE Stop: 04/08/17 18:12 Insulin Aspart (Novolog) 0 unit SC ACHS [facility] PRN Reason: Protocol Last Admin: 04/07/17 12:43 Dose: 3 unit Lactobacillus Acidophilus (Bacid Acidophilus) 1 cap PO DAILY [facility] Last Admin: 04/07/17 09:33 Dose: 1 cap Magnesium Oxide (Mag-Ox) 400 mg PO DAILY [facility] Last Admin: 04/07/17 09:33 Dose: 400 mg Ondansetron HCl (Zofran Inj) 4 mg IVP Q4 PRN PRN Reason: Nausea/Vomiting Pantoprazole Sodium (Protonix Ec Tab) 40 mg PO DAILY [facility] Last Admin: 04/07/17 09:33 Dose: 40 mg Zinc Sulfate (Zinc Sulfate 220 Mg Cap) 220 mg PO DAILY [facility] Last Admin: 04/07/17 09:33 Dose: 220 mg - Labs Labs: 04/07/17 07:11 04/07/17 07:11 PT 11.4 SECONDS (9.7-12.2) 04/04/17 16:41 INR 1.0 04/04/17 16:41 APTT 18 SECONDS (21-34) L 04/04/17 16:41 - Constitutional Appears: Non-toxic, Chronically Ill - Head Exam Head Exam: NORMOCEPHALIC - Eye Exam Eye Exam: PERRL - ENT Exam ENT Exam: Mucous Membranes Dry - Neck Exam Neck Exam: absent: Lymphadenopathy - Respiratory Exam Respiratory Exam: Decreased Breath Sounds - Cardiovascular Exam Cardiovascular Exam: REGULAR RHYTHM - GI/Abdominal Exam GI & Abdominal Exam: Distended, Soft - Rectal Exam Rectal Exam: Deferred - Exam Exam: NORMAL INSPECTION Assessment and Plan - Assessment and Plan (Free Text) Assessment: 61 y/o F s/p hysterectomy and b/l nephrostomy tubes w/ abdominal pain and CT findings of pelvic abscess and urethral catheter located in the colon - pt has nonfunctioning bladder 2/2 B/L nephrostomy tubes; suprapubic swelling is likely 2/2 pelvic abscess seen on CT IV RX TO CONT POSSIBLE OR DRAINAGE /REPAIR
--- NOTE | 2017-04-07 14:16 | CARD ---
APPROVED REPORT EKG Measurement Heart [id number] <Conclusion> Sinus tachycardia Otherwise normal ECG
[2017-04-07] MEDS ORDERED: PPN # 1 IV ONE (18:00)
--- NOTE | 2017-04-07 20:29 | CP.PCM.PN ---
Subjective - Date & Time of Evaluation Date of Evaluation: 04/07/17 Time of Evaluation: 13:00 - Subjective Subjective: clincially same Objective - Vital Signs/Intake and Output Vital Signs (last 24 hours): Temp Pulse Resp BP Pulse Ox 98.5 F 120 H 20 104/69 100 04/07/17 15:34 04/07/17 15:34 04/07/17 15:34 04/07/17 15:34 04/07/17 15:34 Intake and Output: 04/07/17 04/08/17 18:59 06:59 Intake Total 840 Output Total 350 Balance 490 - Medications Medications: Current Medications Acetaminophen (Tylenol 325mg Tab) 650 mg PO Q4 PRN PRN Reason: Fever >100.4 F Ascorbic Acid (Vitamin C 500 Mg Tab) 500 mg PO DAILY [facility] Last Admin: 04/07/17 09:33 Dose: 500 mg Enoxaparin Sodium (Lovenox) 40 mg SC DAILY [facility] Last Admin: 04/07/17 09:34 Dose: 40 mg Piperacillin Sod/Tazobactam (Sod 3.375 gm/ Sodium Chloride) 100 mls @ 200 mls/ hr IVPB Q6H [facility] Last Admin: 04/07/17 12:42 Dose: 200 mls/hr Ceftriaxone Sodium (Rocephin Iv 1 Gm Duplex) 50 mls @ 100 mls/hr IVPB DAILY [facility] Last Admin: 04/07/17 09:33 Dose: 100 mls/hr Dextrose/Sodium Chloride (Dextrose 5%/0.45% Ns 1000 Ml) 1,000 mls @ 75 mls/hr IV .[id number] [facility] Last Admin: 04/07/17 05:24 Dose: 75 mls/hr Multivitamins/Vitamin C 10 ml/ (Amino Acids) 1,010 mls @ 83 mls/hr IV .[id number] ONE Stop: 04/08/17 06:10 Last Admin: 04/07/17 18:30 Dose: 83 mls/hr Amino Acids (Clinimix 4.25/5 % "E" (1000 Ml)) 1,000 mls @ 83 mls/hr IV .Q12H3M ONE Stop: 04/08/17 18:12 Insulin Aspart (Novolog) 0 unit SC ACHS [facility] PRN Reason: Protocol Last Admin: 04/07/17 17:00 Dose: 4 unit Lactobacillus Acidophilus (Bacid Acidophilus) 1 cap PO DAILY [facility] Last Admin: 04/07/17 09:33 Dose: 1 cap Magnesium Oxide (Mag-Ox) 400 mg PO DAILY [facility] Last Admin: 04/07/17 09:33 Dose: 400 mg Ondansetron HCl (Zofran Inj) 4 mg IVP Q4 PRN PRN Reason: Nausea/Vomiting Pantoprazole Sodium (Protonix Ec Tab) 40 mg PO DAILY [facility] Last Admin: 04/07/17 09:33 Dose: 40 mg Zinc Sulfate (Zinc Sulfate 220 Mg Cap) 220 mg PO DAILY [facility] Last Admin: 04/07/17 09:33 Dose: 220 mg - Labs Labs: 04/07/17 07:11 04/07/17 07:11 PT 11.4 SECONDS (9.7-12.2) 04/04/17 16:41 INR 1.0 04/04/17 16:41 APTT 18 SECONDS (21-34) L 04/04/17 16:41 - Constitutional Appears: Well - Head Exam Head Exam: ATRAUMATIC, NORMAL INSPECTION, NORMOCEPHALIC - Eye Exam Eye Exam: EOMI, Normal appearance, PERRL Pupil Exam: NORMAL ACCOMODATION, PERRL - ENT Exam ENT Exam: Mucous Membranes Moist, Normal Exam - Neck Exam Neck Exam: Full ROM, Normal Inspection. absent: Lymphadenopathy - Respiratory Exam Respiratory Exam: Decreased Breath Sounds - Cardiovascular Exam Cardiovascular Exam: REGULAR RHYTHM, +S1, +S2 - GI/Abdominal Exam GI & Abdominal Exam: Soft, Diminished Bowel Sounds - Rectal Exam Rectal Exam: Deferred - Back Exam Back Exam: NORMAL INSPECTION - Neurological Exam Neurological Exam: Alert, Awake, CN II-XII Intact, Normal Gait, Oriented x3 - Psychiatric Exam Psychiatric exam: Normal Affect, Normal Mood - Skin Skin Exam: Dry, Intact, Normal Color, Warm Assessment and Plan (1) Colonic fistula Status: Acute (2) Displacement of Mckeon catheter Status: Acute - Assessment and Plan (Free Text) Plan: Patient examined. Afebrile. Cardiac consult done for preop evaluation. Cardiac risk moderate. Advised to proceed with surgery if benefits outweigh risk. Continue broad-spectrum antibiotics. Continue supportive care.
--- NOTE | 2017-04-07 23:00 | CP.PCM.PN ---
Subjective - Date & Time of Evaluation Date of Evaluation: 04/07/17 Time of Evaluation: 19:00 - Subjective Subjective: Patient seen and evaluated Not in distress Physical Exam - Constitutional Appears: No Acute Distress, Cachectic - Head Exam Head Exam: ATRAUMATIC, NORMAL INSPECTION, NORMOCEPHALIC - ENT Exam ENT Exam: Mucous Membranes Dry - Respiratory Exam Respiratory Exam: NORMAL BREATHING PATTERN. absent: Respiratory Distress - Cardiovascular Exam Cardiovascular Exam: REGULAR RHYTHM Additional comments: tachy in 90s - GI/Abdominal Exam GI & Abdominal Exam: Guarding, Soft, Tenderness. absent: Distended, Hernia Additional comments: midline scar with depressions which may have been related to a prior ileal conduit Urethral catheter in place with no drainage B/L nephrostomy tubes in place with cloudy urine output - Rectal Exam Rectal Exam: NORMAL INSPECTION Additional comments: small superficial sacral excoriation - Extremities Exam Extremities exam: Positive for: normal inspection - Neurological Exam Neurological exam: Alert - Psychiatric Exam Psychiatric exam: Normal Affect, Normal Mood - Skin Skin Exam: Dry, Intact Objective - Vital Signs/Intake and Output Vital Signs (last 24 hours): Temp Pulse Resp BP Pulse Ox 98.5 F 120 H 20 104/69 100 04/07/17 15:34 04/07/17 15:34 04/07/17 15:34 04/07/17 15:34 04/07/17 15:34 Intake and Output: 04/07/17 04/08/17 18:59 06:59 Intake Total 840 Output Total 350 Balance 490 - Medications Medications: Current Medications Acetaminophen (Tylenol 325mg Tab) 650 mg PO Q4 PRN PRN Reason: Fever >100.4 F Ascorbic Acid (Vitamin C 500 Mg Tab) 500 mg PO DAILY [facility] Last Admin: 04/07/17 09:33 Dose: 500 mg Enoxaparin Sodium (Lovenox) 40 mg SC DAILY [facility] Last Admin: 04/07/17 09:34 Dose: 40 mg Piperacillin Sod/Tazobactam (Sod 3.375 gm/ Sodium Chloride) 100 mls @ 200 mls/ hr IVPB Q6H [facility] Last Admin: 04/07/17 19:15 Dose: 200 mls/hr Ceftriaxone Sodium (Rocephin Iv 1 Gm Duplex) 50 mls @ 100 mls/hr IVPB DAILY [facility] Last Admin: 04/07/17 09:33 Dose: 100 mls/hr Dextrose/Sodium Chloride (Dextrose 5%/0.45% Ns 1000 Ml) 1,000 mls @ 75 mls/hr IV .[id number] [facility] Last Admin: 04/07/17 05:24 Dose: 75 mls/hr Multivitamins/Vitamin C 10 ml/ (Amino Acids) 1,010 mls @ 83 mls/hr IV .[id number] ONE Stop: 04/08/17 06:10 Last Admin: 04/07/17 18:30 Dose: 83 mls/hr Amino Acids (Clinimix 4.25/5 % "E" (1000 Ml)) 1,000 mls @ 83 mls/hr IV .Q12H3M ONE Stop: 04/08/17 18:12 Insulin Aspart (Novolog) 0 unit SC ACHS [facility] PRN Reason: Protocol Last Admin: 04/07/17 22:36 Dose: Not Given Lactobacillus Acidophilus (Bacid Acidophilus) 1 cap PO DAILY [facility] Last Admin: 04/07/17 09:33 Dose: 1 cap Magnesium Oxide (Mag-Ox) 400 mg PO DAILY [facility] Last Admin: 04/07/17 09:33 Dose: 400 mg Ondansetron HCl (Zofran Inj) 4 mg IVP Q4 PRN PRN Reason: Nausea/Vomiting Pantoprazole Sodium (Protonix Ec Tab) 40 mg PO DAILY [facility] Last Admin: 04/07/17 09:33 Dose: 40 mg Zinc Sulfate (Zinc Sulfate 220 Mg Cap) 220 mg PO DAILY [facility] Last Admin: 04/07/17 09:33 Dose: 220 mg - Labs Labs: 04/07/17 07:11 04/07/17 07:11 PT 11.4 SECONDS (9.7-12.2) 04/04/17 16:41 INR 1.0 04/04/17 16:41 APTT 18 SECONDS (21-34) L 04/04/17 16:41 Assessment and Plan - Assessment and Plan (Free Text) Assessment: 61 F difficult historian Normal LV and valvular function No known CAD Do not recommend any further cardiac work up due to poor general condition Cardiac Risk: Atleast Moderate No idea about CAD If benefit outweighs the risk please proceed with the surgery since further cardiac risk assessment is not possible Recommend to d/w with the family about the need for the surgery and unpredictablity of the Cardiac events Will follow
[2017-04-08] MEDS: Piperacillin/Tazobact 3.375 GM in Sodium Chloride 100 ML IVPB SCH ×2 (01:12→05:52)
[2017-04-08] MEDS: Dextrose 5%/0.45% NS 1,000 ML IV SCH (04:00)
[2017-04-08] MEDS ORDERED: PPN # 2 IV ONE (06:10)
--- NOTE | 2017-04-08 06:47 | CP.PCM.PN ---
<Jens Recio Sean - Last Filed: 04/08/17 06:43> Subjective - Date & Time of Evaluation Date of Evaluation: 04/08/17 Time of Evaluation: 06:44 - Subjective Subjective: Gen Surg: Dr Cabral Pt S&E this morning. NAEO. Continues to have abdominal pain, unchanged. Tolerating PO intake but in small amounts. Now on PPN w/ protein supplementation. Having diarrhea. No N/V. Tentative plan for OR monday. Cleared by cardiology as moderate risk. Objective - Vital Signs/Intake and Output Vital Signs (last 24 hours): Temp Pulse Resp BP Pulse Ox 98.5 F 103 H 20 108/65 100 04/07/17 23:40 04/08/17 00:00 04/07/17 23:40 04/07/17 23:40 04/07/17 23:40 Intake and Output: 04/07/17 04/08/17 18:59 06:59 Intake Total 840 732 Output Total 350 335 Balance 490 397 - Medications Medications: Current Medications Acetaminophen (Tylenol 325mg Tab) 650 mg PO Q4 PRN PRN Reason: Fever >100.4 F Ascorbic Acid (Vitamin C 500 Mg Tab) 500 mg PO DAILY [facility] Last Admin: 04/07/17 09:33 Dose: 500 mg Enoxaparin Sodium (Lovenox) 40 mg SC DAILY [facility] Last Admin: 04/07/17 09:34 Dose: 40 mg Piperacillin Sod/Tazobactam (Sod 3.375 gm/ Sodium Chloride) 100 mls @ 200 mls/ hr IVPB Q6H [facility] Last Admin: 04/08/17 05:52 Dose: 200 mls/hr Ceftriaxone Sodium (Rocephin Iv 1 Gm Duplex) 50 mls @ 100 mls/hr IVPB DAILY [facility] Last Admin: 04/07/17 09:33 Dose: 100 mls/hr Dextrose/Sodium Chloride (Dextrose 5%/0.45% Ns 1000 Ml) 1,000 mls @ 75 mls/hr IV .[id number] [facility] Last Admin: 04/08/17 04:00 Dose: Not Given Amino Acids (Clinimix 4.25/5 % "E" (1000 Ml)) 1,000 mls @ 83 mls/hr IV .Q12H3M ONE Stop: 04/08/17 18:12 Insulin Aspart (Novolog) 0 unit SC ACHS [facility] PRN Reason: Protocol Last Admin: 04/07/17 22:36 Dose: Not Given Lactobacillus Acidophilus (Bacid Acidophilus) 1 cap PO DAILY [facility] Last Admin: 04/07/17 09:33 Dose: 1 cap Magnesium Oxide (Mag-Ox) 400 mg PO DAILY [facility] Last Admin: 04/07/17 09:33 Dose: 400 mg Ondansetron HCl (Zofran Inj) 4 mg IVP Q4 PRN PRN Reason: Nausea/Vomiting Pantoprazole Sodium (Protonix Ec Tab) 40 mg PO DAILY [facility] Last Admin: 04/07/17 09:33 Dose: 40 mg Zinc Sulfate (Zinc Sulfate 220 Mg Cap) 220 mg PO DAILY [facility] Last Admin: 04/07/17 09:33 Dose: 220 mg - Labs Labs: 04/07/17 07:11 04/07/17 07:11 PT 11.4 SECONDS (9.7-12.2) 04/04/17 16:41 INR 1.0 04/04/17 16:41 APTT 18 SECONDS (21-34) L 04/04/17 16:41 - Constitutional Appears: Cachectic - Respiratory Exam Respiratory Exam: absent: Respiratory Distress - GI/Abdominal Exam GI & Abdominal Exam: Guarding (voluntary), Soft, Tenderness (diffuse), Mass ( supra-pubic). 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 PPN, ensure, prosource - IVF as needed for hypotension - pain management -Cardiology cleared for surgery as moderate risk - Surgery scheduled for monday - continue medical management will d/w Dr Misha Recio PGY3 <Sumeet Cabral B - Last Filed: 04/09/17 21:28> Objective - Vital Signs/Intake and Output Vital Signs (last 24 hours): Temp Pulse Resp BP Pulse Ox 98.4 F 106 H 20 119/80 98 04/09/17 16:00 04/09/17 16:00 04/09/17 16:00 04/09/17 16:00 04/09/17 16:00 Intake and Output: 04/09/17 04/10/17 18:59 06:59 Intake Total 240 Output Total 230 Balance 10 - Medications Medications: Current Medications Acetaminophen (Tylenol 325mg Tab) 650 mg PO Q4 PRN PRN Reason: Fever >100.4 F Ascorbic Acid (Vitamin C 500 Mg Tab) 500 mg PO DAILY [facility] Last Admin: 04/09/17 10:18 Dose: 500 mg Enoxaparin Sodium (Lovenox) 40 mg SC DAILY [facility] Last Admin: 04/09/17 10:19 Dose: 40 mg Imipenem/Cilastatin Sodium 500 (mg/ Sodium Chloride) 100 mls @ 100 mls/hr IVPB Q6H [facility] Last Admin: 04/09/17 16:30 Dose: 100 mls/hr Amino Acids (Clinimix 4.25/5 % "E" (1000 Ml)) 1,000 mls @ 83 mls/hr IV .Q12H3M ONE Stop: 04/10/17 06:02 Last Admin: 04/09/17 18:49 Dose: 83 mls/hr Amino Acids (Clinimix 4.25/5 % "E" (1000 Ml)) 1,000 mls @ 83 mls/hr IV .Q12H3M ONE Stop: 04/10/17 18:05 Insulin Aspart (Novolog) 0 unit SC ACHS [facility] PRN Reason: Protocol Last Admin: 04/09/17 17:00 Dose: 2 unit Lactobacillus Acidophilus (Bacid Acidophilus) 1 cap PO DAILY [facility] Last Admin: 04/09/17 10:18 Dose: 1 cap Magnesium Oxide (Mag-Ox) 400 mg PO DAILY [facility] Last Admin: 04/09/17 10:18 Dose: 400 mg Ondansetron HCl (Zofran Inj) 4 mg IVP Q4 PRN PRN Reason: Nausea/Vomiting Pantoprazole Sodium (Protonix Ec Tab) 40 mg PO DAILY [facility] Last Admin: 04/09/17 10:18 Dose: 40 mg Zinc Sulfate (Zinc Sulfate 220 Mg Cap) 220 mg PO DAILY [facility] Last Admin: 04/09/17 10:18 Dose: 220 mg - Labs Labs: 04/09/17 09:05 04/09/17 09:05 PT 11.4 SECONDS (9.7-12.2) 04/04/17 16:41 INR 1.0 04/04/17 16:41 APTT 18 SECONDS (21-34) L 04/04/17 16:41 Attending/Attestation - Attestation I have fully participated in the care of the patient.: Yes I have reviewed all pertinent clinical information, including history, physical exam and plan: Yes Notes (Text): 04/09/17 21:28 Pt with Cecalvesucular fistula Severe malnutrition C.w IV antibiotics Reg diet, PPN Plan d.w primary dutch in detail.
[2017-04-08] MEDS: (Novolog) Insulin Aspart, Recombinant 100 u/ml 10 ml vial SC SCH ×4 (08:57→22:21)
[2017-04-08] MEDS: Magnesium Oxide 400 mg Tab UD PO SCH (11:34)
[2017-04-08] MEDS: Lactobacillus Acidophilus 500 MU Cap PO SCH (11:34)
[2017-04-08] MEDS: Pantoprazole 40 mg EC Tab PO SCH (11:34)
[2017-04-08] MEDS: Enoxaparin 40 mg Syringe SC SCH (11:34)
--- NOTE | 2017-04-08 14:26 | CP.PCM.PN ---
Subjective - Date & Time of Evaluation Date of Evaluation: 04/08/17 Time of Evaluation: 11:40 - Subjective Subjective: clinically same Objective - Vital Signs/Intake and Output Vital Signs (last 24 hours): Temp Pulse Resp BP Pulse Ox 99 F 109 H 20 111/73 100 04/08/17 08:00 04/08/17 08:00 04/08/17 08:00 04/08/17 08:00 04/08/17 08:00 Intake and Output: 04/08/17 04/08/17 06:59 18:59 Intake Total 1596 Output Total 835 Balance 761 - Medications Medications: Current Medications Acetaminophen (Tylenol 325mg Tab) 650 mg PO Q4 PRN PRN Reason: Fever >100.4 F Ascorbic Acid (Vitamin C 500 Mg Tab) 500 mg PO DAILY [facility] Last Admin: 04/08/17 11:34 Dose: 500 mg Enoxaparin Sodium (Lovenox) 40 mg SC DAILY [facility] Last Admin: 04/08/17 11:34 Dose: 40 mg Dextrose/Sodium Chloride (Dextrose 5%/0.45% Ns 1000 Ml) 1,000 mls @ 75 mls/hr IV .[id number] [facility] Last Admin: 04/08/17 04:00 Dose: Not Given Amino Acids (Clinimix 4.25/5 % "E" (1000 Ml)) 1,000 mls @ 83 mls/hr IV .Q12H3M ONE Stop: 04/08/17 18:12 Last Admin: 04/08/17 09:00 Dose: 83 mls/hr Multivitamins/Vitamin C 10 ml/ (Amino Acids) 1,010 mls @ 83 mls/hr IV .[id number] [facility] Stop: 04/09/17 06:10 Imipenem/Cilastatin Sodium 500 (mg/ Sodium Chloride) 100 mls @ 100 mls/hr IVPB Q6H [facility] Last Admin: 04/08/17 11:33 Dose: 100 mls/hr Amino Acids (Clinimix 4.25/5 % "E" (1000 Ml)) 1,000 mls @ 83 mls/hr IV .Q12H3M [facility] Stop: 04/09/17 17:59 Insulin Aspart (Novolog) 0 unit SC ACHS [facility] PRN Reason: Protocol Last Admin: 04/08/17 12:38 Dose: 2 unit Lactobacillus Acidophilus (Bacid Acidophilus) 1 cap PO DAILY [facility] Last Admin: 04/08/17 11:34 Dose: 1 cap Magnesium Oxide (Mag-Ox) 400 mg PO DAILY [facility] Last Admin: 04/08/17 11:34 Dose: 400 mg Ondansetron HCl (Zofran Inj) 4 mg IVP Q4 PRN PRN Reason: Nausea/Vomiting Pantoprazole Sodium (Protonix Ec Tab) 40 mg PO DAILY [facility] Last Admin: 04/08/17 11:34 Dose: 40 mg Zinc Sulfate (Zinc Sulfate 220 Mg Cap) 220 mg PO DAILY [facility] Last Admin: 04/08/17 11:34 Dose: 220 mg - Labs Labs: 04/07/17 07:11 04/07/17 07:11 PT 11.4 SECONDS (9.7-12.2) 04/04/17 16:41 INR 1.0 04/04/17 16:41 APTT 18 SECONDS (21-34) L 04/04/17 16:41 - Constitutional Appears: Well - Head Exam Head Exam: ATRAUMATIC, NORMAL INSPECTION, NORMOCEPHALIC - Eye Exam Eye Exam: EOMI, Normal appearance, PERRL Pupil Exam: NORMAL ACCOMODATION, PERRL - ENT Exam ENT Exam: Mucous Membranes Moist, Normal Exam - Neck Exam Neck Exam: Full ROM, Normal Inspection. absent: Lymphadenopathy - Respiratory Exam Respiratory Exam: Decreased Breath Sounds - Cardiovascular Exam Cardiovascular Exam: REGULAR RHYTHM, +S1, +S2 - GI/Abdominal Exam GI & Abdominal Exam: Soft, Diminished Bowel Sounds - Rectal Exam Rectal Exam: Deferred - Back Exam Back Exam: NORMAL INSPECTION - Neurological Exam Neurological Exam: Alert, Awake, CN II-XII Intact, Normal Gait, Oriented x3 - Psychiatric Exam Psychiatric exam: Normal Affect, Normal Mood - Skin Skin Exam: Dry, Intact, Normal Color, Warm Assessment and Plan (1) Colonic fistula Status: Acute (2) Displacement of Mckeon catheter Status: Acute - Assessment and Plan (Free Text) Plan: Patient examined. Continued abdominal pain. Tolerating oral liquids. Colonic vesicle fistula. Considering surgery. Continue insulin. Continue imipenem cilastatin. Continue supportive care.
[2017-04-08 18:08] LABS: CHLORIDE 110 mmol/L (98-107)
[2017-04-08 18:09] LABS: POTASSIUM 3.2 mmol/L (3.6-5.2); SODIUM 138 mmol/L (132-148)
[2017-04-08 18:11] LABS: GFR AFRICAN-AMERICAN > 60
[2017-04-08 18:12] LABS: BLOOD UREA NITROGEN 8 mg/dL (7-17); CALCIUM 8.4 mg/dl (8.6-10.4); CARBON DIOXIDE 16 mmol/L (22-30); GLUCOSE,RANDOM 156 mg/dL (65-105)
[2017-04-08] MEDS: PPN IV SCH (18:30)
--- NOTE | 2017-04-08 21:18 | CP.PCM.PN ---
Subjective - Date & Time of Evaluation Date of Evaluation: 04/08/17 Time of Evaluation: 14:50 - Subjective Subjective: Patient seen and evaluated Not in distress Physical Exam - Constitutional Appears: No Acute Distress, Cachectic - Head Exam Head Exam: ATRAUMATIC, NORMAL INSPECTION, NORMOCEPHALIC - ENT Exam ENT Exam: Mucous Membranes Dry - Respiratory Exam Respiratory Exam: NORMAL BREATHING PATTERN. absent: Respiratory Distress - Cardiovascular Exam Cardiovascular Exam: REGULAR RHYTHM Additional comments: tachy in 90s - GI/Abdominal Exam GI & Abdominal Exam: Guarding, Soft, Tenderness. absent: Distended, Hernia Additional comments: midline scar with depressions which may have been related to a prior ileal conduit Urethral catheter in place with no drainage B/L nephrostomy tubes in place with cloudy urine output - Rectal Exam Rectal Exam: NORMAL INSPECTION Additional comments: small superficial sacral excoriation - Extremities Exam Extremities exam: Positive for: normal inspection - Neurological Exam Neurological exam: Alert - Psychiatric Exam Psychiatric exam: Normal Affect, Normal Mood - Skin Skin Exam: Dry, Intact Objective - Vital Signs/Intake and Output Vital Signs (last 24 hours): Temp Pulse Resp BP Pulse Ox 98 F 106 H 18 116/70 99 04/08/17 16:00 04/08/17 16:00 04/08/17 16:00 04/08/17 16:00 04/08/17 19:15 Intake and Output: 04/08/17 04/09/17 18:59 06:59 Intake Total 708 Output Total 475 Balance 233 - Medications Medications: Current Medications Acetaminophen (Tylenol 325mg Tab) 650 mg PO Q4 PRN PRN Reason: Fever >100.4 F Ascorbic Acid (Vitamin C 500 Mg Tab) 500 mg PO DAILY [facility] Last Admin: 04/08/17 11:34 Dose: 500 mg Enoxaparin Sodium (Lovenox) 40 mg SC DAILY [facility] Last Admin: 04/08/17 11:34 Dose: 40 mg Dextrose/Sodium Chloride (Dextrose 5%/0.45% Ns 1000 Ml) 1,000 mls @ 75 mls/hr IV .[id number] [facility] Last Admin: 04/08/17 04:00 Dose: Not Given Multivitamins/Vitamin C 10 ml/ (Amino Acids) 1,010 mls @ 83 mls/hr IV .[id number] [facility] Stop: 10/01/17 06:10 Imipenem/Cilastatin Sodium 500 (mg/ Sodium Chloride) 100 mls @ 100 mls/hr IVPB Q6H [facility] Last Admin: 04/08/17 17:00 Dose: 100 mls/hr Amino Acids (Clinimix 4.25/5 % "E" (1000 Ml)) 1,000 mls @ 83 mls/hr IV .Q12H3M [facility] Stop: 04/09/17 17:59 Insulin Aspart (Novolog) 0 unit SC ACHS [facility] PRN Reason: Protocol Last Admin: 04/08/17 17:00 Dose: 1 unit Lactobacillus Acidophilus (Bacid Acidophilus) 1 cap PO DAILY [facility] Last Admin: 04/08/17 11:34 Dose: 1 cap Magnesium Oxide (Mag-Ox) 400 mg PO DAILY [facility] Last Admin: 04/08/17 11:34 Dose: 400 mg Ondansetron HCl (Zofran Inj) 4 mg IVP Q4 PRN PRN Reason: Nausea/Vomiting Pantoprazole Sodium (Protonix Ec Tab) 40 mg PO DAILY [facility] Last Admin: 04/08/17 11:34 Dose: 40 mg Zinc Sulfate (Zinc Sulfate 220 Mg Cap) 220 mg PO DAILY [facility] Last Admin: 04/08/17 11:34 Dose: 220 mg - Labs Labs: 04/07/17 07:11 04/08/17 17:49 PT 11.4 SECONDS (9.7-12.2) 04/04/17 16:41 INR 1.0 04/04/17 16:41 APTT 18 SECONDS (21-34) L 04/04/17 16:41 Assessment and Plan - Assessment and Plan (Free Text) Assessment: 61 F difficult historian Normal LV and valvular function No known CAD Do not recommend any further cardiac work up due to poor general condition Cardiac Risk: Atleast Moderate No idea about CAD If benefit outweighs the risk please proceed with the surgery since further cardiac risk assessment is not possible Recommend to d/w with the family about the need for the surgery and unpredictablity of the Cardiac events Will follow
[2017-04-08] MEDS ORDERED: Potassium Chloride 20 mEq/15 ml LIQ UD PO ONE (21:45)
[2017-04-09] MEDS: PPN IV SCH (00:45)
[2017-04-09] MEDS ORDERED: PPN#4 IV SCH (06:01)
[2017-04-09] MEDS: Dextrose 5%/0.45% NS 1,000 ML IV SCH (06:32)
[2017-04-09] MEDS: (Novolog) Insulin Aspart, Recombinant 100 u/ml 10 ml vial SC SCH ×4 (08:05→22:22)
[2017-04-09 09:14] LABS: HEMATOCRIT 27.8 % (34.0-47.0); MEAN CELL VOLUME 81.7 fL (81.0-99.0); MEAN CORPUSCULAR HEMOGLOBIN 27.8 pg (27.0-31.0); MEAN CORPUSCULAR HGB CONC 34.1 g/dL (33.0-37.0); MEAN PLATELET VOLUME 6.9 fL (7.2-11.7); RED CELL DISTRIBUTION WIDTH 14.9 % (11.5-14.5); WHITE BLOOD COUNT 6.6 K/uL (4.8-10.8)
[2017-04-09 09:31] LABS: CHLORIDE 110 mmol/L (98-107); SODIUM 136 mmol/L (132-148)
[2017-04-09 09:33] LABS: BLOOD UREA NITROGEN 14 mg/dL (7-17); CARBON DIOXIDE 15 mmol/L (22-30); GFR AFRICAN-AMERICAN > 60
[2017-04-09 09:34] LABS: CALCIUM 8.3 mg/dl (8.6-10.4); GLUCOSE,RANDOM 194 mg/dL (65-105)
[2017-04-09] MEDS: Lactobacillus Acidophilus 500 MU Cap PO SCH (10:18)
[2017-04-09] MEDS: Magnesium Oxide 400 mg Tab UD PO SCH (10:18)
[2017-04-09] MEDS: Pantoprazole 40 mg EC Tab PO SCH (10:18)
[2017-04-09] MEDS: Enoxaparin 40 mg Syringe SC SCH (10:19)
--- NOTE | 2017-04-09 11:34 | CP.PCM.PN ---
<MerchantJermain - Last Filed: 04/09/17 11:31> Subjective - Date & Time of Evaluation Date of Evaluation: 04/09/17 Time of Evaluation: 06:50 - Subjective Subjective: General Surgery- Dr. Cabral Pt S&E at bedside this AM. pt stated she wasn't feeling much pain. tolerating diet in small amounts. Denies F/C CP/SOB N/V Objective - Vital Signs/Intake and Output Vital Signs (last 24 hours): Temp Pulse Resp BP Pulse Ox 98.8 F 116 H 20 112/65 100 04/09/17 04:55 04/09/17 04:55 04/09/17 04:55 04/09/17 04:55 04/09/17 00:15 Intake and Output: 04/09/17 04/09/17 06:59 18:59 Intake Total 1848 Output Total 1225 Balance 623 - Medications Medications: Current Medications Acetaminophen (Tylenol 325mg Tab) 650 mg PO Q4 PRN PRN Reason: Fever >100.4 F Ascorbic Acid (Vitamin C 500 Mg Tab) 500 mg PO DAILY [facility] Last Admin: 04/09/17 10:18 Dose: 500 mg Enoxaparin Sodium (Lovenox) 40 mg SC DAILY [facility] Last Admin: 04/09/17 10:19 Dose: 40 mg Dextrose/Sodium Chloride (Dextrose 5%/0.45% Ns 1000 Ml) 1,000 mls @ 75 mls/hr IV .[id number] [facility] Last Admin: 04/09/17 06:32 Dose: Not Given Imipenem/Cilastatin Sodium 500 (mg/ Sodium Chloride) 100 mls @ 100 mls/hr IVPB Q6H [facility] Last Admin: 04/09/17 10:21 Dose: 100 mls/hr Amino Acids (Clinimix 4.25/5 % "E" (1000 Ml)) 1,000 mls @ 83 mls/hr IV .Q12H3M [facility] Stop: 04/09/17 17:59 Last Admin: 04/09/17 06:32 Dose: Not Given Insulin Aspart (Novolog) 0 unit SC ACHS [facility] PRN Reason: Protocol Last Admin: 04/09/17 08:05 Dose: 2 unit Lactobacillus Acidophilus (Bacid Acidophilus) 1 cap PO DAILY [facility] Last Admin: 04/09/17 10:18 Dose: 1 cap Magnesium Oxide (Mag-Ox) 400 mg PO DAILY [facility] Last Admin: 04/09/17 10:18 Dose: 400 mg Ondansetron HCl (Zofran Inj) 4 mg IVP Q4 PRN PRN Reason: Nausea/Vomiting Pantoprazole Sodium (Protonix Ec Tab) 40 mg PO DAILY [facility] Last Admin: 04/09/17 10:18 Dose: 40 mg Zinc Sulfate (Zinc Sulfate 220 Mg Cap) 220 mg PO DAILY [facility] Last Admin: 04/09/17 10:18 Dose: 220 mg - Labs Labs: 04/09/17 09:05 04/09/17 09:05 PT 11.4 SECONDS (9.7-12.2) 04/04/17 16:41 INR 1.0 04/04/17 16:41 APTT 18 SECONDS (21-34) L 04/04/17 16:41 - Constitutional Appears: Non-toxic, No Acute Distress - Eye Exam Eye Exam: EOMI - ENT Exam ENT Exam: Mucous Membranes Moist - Respiratory Exam Respiratory Exam: NORMAL BREATHING PATTERN. absent: Accessory Muscle Use, Respiratory Distress - Cardiovascular Exam Cardiovascular Exam: +S1, +S2 - GI/Abdominal Exam GI & Abdominal Exam: Soft. absent: Distended, Firm, Guarding, Rigid, Tenderness - Neurological Exam Neurological Exam: Awake. 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 PPN, ensure, prosource - IVF as needed for hypotension - pain management - Surgery scheduled for monday - continue medical management - further recs per Dr. Misha Haque PGY1 <Sumeet Cabral - Last Filed: 04/09/17 21:30> Objective - Vital Signs/Intake and Output Vital Signs (last 24 hours): Temp Pulse Resp BP Pulse Ox 98.4 F 106 H 20 119/80 98 10/01/17 16:00 04/09/17 16:00 04/09/17 16:00 04/09/17 16:00 04/09/17 16:00 Intake and Output: 04/09/17 04/10/17 18:59 06:59 Intake Total 240 Output Total 230 Balance 10 - Medications Medications: Current Medications Acetaminophen (Tylenol 325mg Tab) 650 mg PO Q4 PRN PRN Reason: Fever >100.4 F Ascorbic Acid (Vitamin C 500 Mg Tab) 500 mg PO DAILY [facility] Last Admin: 04/09/17 10:18 Dose: 500 mg Enoxaparin Sodium (Lovenox) 40 mg SC DAILY [facility] Last Admin: 04/09/17 10:19 Dose: 40 mg Imipenem/Cilastatin Sodium 500 (mg/ Sodium Chloride) 100 mls @ 100 mls/hr IVPB Q6H [facility] Last Admin: 04/09/17 16:30 Dose: 100 mls/hr Amino Acids (Clinimix 4.25/5 % "E" (1000 Ml)) 1,000 mls @ 83 mls/hr IV .Q12H3M [facility] Stop: 04/10/17 06:02 Last Admin: 04/09/17 18:49 Dose: 83 mls/hr Amino Acids (Clinimix 4.25/5 % "E" (1000 Ml)) 1,000 mls @ 83 mls/hr IV .Q12H3M [facility] Stop: 04/10/17 18:05 Insulin Aspart (Novolog) 0 unit SC ACHS [facility] PRN Reason: Protocol Last Admin: 04/09/17 17:00 Dose: 2 unit Lactobacillus Acidophilus (Bacid Acidophilus) 1 cap PO DAILY [facility] Last Admin: 04/09/17 10:18 Dose: 1 cap Magnesium Oxide (Mag-Ox) 400 mg PO DAILY [facility] Last Admin: 04/09/17 10:18 Dose: 400 mg Ondansetron HCl (Zofran Inj) 4 mg IVP Q4 PRN PRN Reason: Nausea/Vomiting Pantoprazole Sodium (Protonix Ec Tab) 40 mg PO DAILY [facility] Last Admin: 04/09/17 10:18 Dose: 40 mg Zinc Sulfate (Zinc Sulfate 220 Mg Cap) 220 mg PO DAILY [facility] Last Admin: 04/09/17 10:18 Dose: 220 mg - Labs Labs: 04/09/17 09:05 04/09/17 09:05 PT 11.4 SECONDS (9.7-12.2) 04/04/17 16:41 INR 1.0 04/04/17 16:41 APTT 18 SECONDS (21-34) L 04/04/17 16:41 Attending/Attestation - Attestation I have personally seen and examined this patient.: Yes I have fully participated in the care of the patient.: Yes I have reviewed all pertinent clinical information, including history, physical exam and plan: Yes Notes (Text): 04/09/17 21:30 Pt with Cecalvesucular fistula Severe malnutrition repeat CMP in am C.w IV antibiotics Reg diet, PPN Plan d.w primary team in detail.
--- NOTE | 2017-04-09 16:13 | CP.PCM.PN ---
Subjective - Date & Time of Evaluation Date of Evaluation: 04/09/17 Time of Evaluation: 09:00 - Subjective Subjective: ESBL + urine iv rx in progress Objective - Vital Signs/Intake and Output Vital Signs (last 24 hours): Temp Pulse Resp BP Pulse Ox 98.8 F 116 H 20 112/65 100 04/09/17 04:55 04/09/17 04:55 04/09/17 04:55 04/09/17 04:55 04/09/17 00:15 Intake and Output: 04/09/17 04/09/17 06:59 18:59 Intake Total 1848 240 Output Total 1225 230 Balance 623 10 - Medications Medications: Current Medications Acetaminophen (Tylenol 325mg Tab) 650 mg PO Q4 PRN PRN Reason: Fever >100.4 F Ascorbic Acid (Vitamin C 500 Mg Tab) 500 mg PO DAILY [facility] Last Admin: 04/09/17 10:18 Dose: 500 mg Enoxaparin Sodium (Lovenox) 40 mg SC DAILY [facility] Last Admin: 04/09/17 10:19 Dose: 40 mg Imipenem/Cilastatin Sodium 500 (mg/ Sodium Chloride) 100 mls @ 100 mls/hr IVPB Q6H [facility] Last Admin: 04/09/17 10:21 Dose: 100 mls/hr Amino Acids (Clinimix 4.25/5 % "E" (1000 Ml)) 1,000 mls @ 83 mls/hr IV .Q12H3M [facility] Stop: 04/09/17 17:59 Last Admin: 04/09/17 06:32 Dose: Not Given Amino Acids (Clinimix 4.25/5 % "E" (1000 Ml)) 1,000 mls @ 83 mls/hr IV .Q12H3M ONE Stop: 04/10/17 06:02 Amino Acids (Clinimix 4.25/5 % "E" (1000 Ml)) 1,000 mls @ 83 mls/hr IV .Q12H3M ONE Stop: 04/10/17 18:05 Insulin Aspart (Novolog) 0 unit SC ACHS [facility] PRN Reason: Protocol Last Admin: 04/09/17 12:10 Dose: 4 unit Lactobacillus Acidophilus (Bacid Acidophilus) 1 cap PO DAILY [facility] Last Admin: 04/09/17 10:18 Dose: 1 cap Magnesium Oxide (Mag-Ox) 400 mg PO DAILY [facility] Last Admin: 04/09/17 10:18 Dose: 400 mg Ondansetron HCl (Zofran Inj) 4 mg IVP Q4 PRN PRN Reason: Nausea/Vomiting Pantoprazole Sodium (Protonix Ec Tab) 40 mg PO DAILY [facility] Last Admin: 04/09/17 10:18 Dose: 40 mg Zinc Sulfate (Zinc Sulfate 220 Mg Cap) 220 mg PO DAILY [facility] Last Admin: 04/09/17 10:18 Dose: 220 mg - Labs Labs: 04/09/17 09:05 04/09/17 09:05 PT 11.4 SECONDS (9.7-12.2) 04/04/17 16:41 INR 1.0 04/04/17 16:41 APTT 18 SECONDS (21-34) L 04/04/17 16:41 - Constitutional Appears: Non-toxic, Chronically Ill - Head Exam Head Exam: NORMOCEPHALIC - Eye Exam Eye Exam: PERRL. absent: Scleral icterus - ENT Exam ENT Exam: Mucous Membranes Dry - Neck Exam Neck Exam: absent: Lymphadenopathy - Respiratory Exam Respiratory Exam: Decreased Breath Sounds - Cardiovascular Exam Cardiovascular Exam: REGULAR RHYTHM - GI/Abdominal Exam GI & Abdominal Exam: Distended, Soft. absent: Tenderness - Rectal Exam Rectal Exam: Deferred - Exam Exam: NORMAL INSPECTION - Extremities Exam Extremities Exam: absent: Pedal Edema - Neurological Exam Neurological Exam: Alert, Awake, Oriented x3 Assessment and Plan (1) Colonic fistula Status: Acute (2) Displacement of Mckeon catheter Status: Acute - Assessment and Plan (Free Text) Plan: cont rx infection
--- NOTE | 2017-04-09 20:27 | CP.PCM.PN ---
Subjective - Date & Time of Evaluation Date of Evaluation: 04/09/17 Time of Evaluation: 21:30 - Subjective Subjective: clinically same Objective - Vital Signs/Intake and Output Vital Signs (last 24 hours): Temp Pulse Resp BP Pulse Ox 98.4 F 106 H 20 119/80 98 04/09/17 16:00 04/09/17 16:00 04/09/17 16:00 04/09/17 16:00 04/09/17 16:00 Intake and Output: 04/09/17 04/10/17 18:59 06:59 Intake Total 240 Output Total 230 Balance 10 - Medications Medications: Current Medications Acetaminophen (Tylenol 325mg Tab) 650 mg PO Q4 PRN PRN Reason: Fever >100.4 F Ascorbic Acid (Vitamin C 500 Mg Tab) 500 mg PO DAILY [facility] Last Admin: 04/09/17 10:18 Dose: 500 mg Enoxaparin Sodium (Lovenox) 40 mg SC DAILY [facility] Last Admin: 04/09/17 10:19 Dose: 40 mg Imipenem/Cilastatin Sodium 500 (mg/ Sodium Chloride) 100 mls @ 100 mls/hr IVPB Q6H [facility] Last Admin: 04/09/17 16:30 Dose: 100 mls/hr Amino Acids (Clinimix 4.25/5 % "E" (1000 Ml)) 1,000 mls @ 83 mls/hr IV .Q12H3M ONE Stop: 04/10/17 06:02 Last Admin: 04/09/17 18:49 Dose: 83 mls/hr Amino Acids (Clinimix 4.25/5 % "E" (1000 Ml)) 1,000 mls @ 83 mls/hr IV .Q12H3M ONE Stop: 04/10/17 18:05 Insulin Aspart (Novolog) 0 unit SC ACHS [facility] PRN Reason: Protocol Last Admin: 04/09/17 17:00 Dose: 2 unit Lactobacillus Acidophilus (Bacid Acidophilus) 1 cap PO DAILY [facility] Last Admin: 04/09/17 10:18 Dose: 1 cap Magnesium Oxide (Mag-Ox) 400 mg PO DAILY [facility] Last Admin: 04/09/17 10:18 Dose: 400 mg Ondansetron HCl (Zofran Inj) 4 mg IVP Q4 PRN PRN Reason: Nausea/Vomiting Pantoprazole Sodium (Protonix Ec Tab) 40 mg PO DAILY [facility] Last Admin: 04/09/17 10:18 Dose: 40 mg Zinc Sulfate (Zinc Sulfate 220 Mg Cap) 220 mg PO DAILY [facility] Last Admin: 04/09/17 10:18 Dose: 220 mg - Labs Labs: 04/09/17 09:05 04/09/17 09:05 PT 11.4 SECONDS (9.7-12.2) 04/04/17 16:41 INR 1.0 04/04/17 16:41 APTT 18 SECONDS (21-34) L 04/04/17 16:41 - Constitutional Appears: Well - Head Exam Head Exam: ATRAUMATIC, NORMAL INSPECTION, NORMOCEPHALIC - Eye Exam Eye Exam: EOMI, Normal appearance, PERRL Pupil Exam: NORMAL ACCOMODATION, PERRL - ENT Exam ENT Exam: Mucous Membranes Moist, Normal Exam - Neck Exam Neck Exam: Full ROM, Normal Inspection. absent: Lymphadenopathy - Respiratory Exam Respiratory Exam: Clear to Ausculation Bilateral, NORMAL BREATHING PATTERN - Cardiovascular Exam Cardiovascular Exam: REGULAR RHYTHM, +S1, +S2. absent: Murmur - GI/Abdominal Exam GI & Abdominal Exam: absent: Tenderness - Rectal Exam Rectal Exam: Deferred - Back Exam Back Exam: NORMAL INSPECTION - Neurological Exam Neurological Exam: Alert, Awake, CN II-XII Intact, Normal Gait, Oriented x3 - Psychiatric Exam Psychiatric exam: Normal Affect, Normal Mood - Skin Skin Exam: Dry, Intact, Normal Color, Warm Assessment and Plan (1) Colonic fistula Status: Acute (2) Displacement of Mckeon catheter Status: Acute - Assessment and Plan (Free Text) Plan: Patient examined. Clinically the same. Continue insulin. Continue imipenem cilastatin. Continue supportive care. Plan surgery.
--- NOTE | 2017-04-09 21:46 | CP.PCM.PN ---
Subjective - Date & Time of Evaluation Date of Evaluation: 04/09/17 Time of Evaluation: 17:55 - Subjective Subjective: Patient seen and evaluated No cardiac events noted Objective - Vital Signs/Intake and Output Vital Signs (last 24 hours): Temp Pulse Resp BP Pulse Ox 98.4 F 106 H 20 119/80 98 04/09/17 16:00 04/09/17 16:00 04/09/17 16:00 04/09/17 16:00 04/09/17 16:00 Intake and Output: 04/09/17 04/10/17 18:59 06:59 Intake Total 240 Output Total 230 Balance 10 - Medications Medications: Current Medications Acetaminophen (Tylenol 325mg Tab) 650 mg PO Q4 PRN PRN Reason: Fever >100.4 F Ascorbic Acid (Vitamin C 500 Mg Tab) 500 mg PO DAILY [facility] Last Admin: 04/09/17 10:18 Dose: 500 mg Enoxaparin Sodium (Lovenox) 40 mg SC DAILY [facility] Last Admin: 04/09/17 10:19 Dose: 40 mg Imipenem/Cilastatin Sodium 500 (mg/ Sodium Chloride) 100 mls @ 100 mls/hr IVPB Q6H [facility] Last Admin: 04/09/17 21:41 Dose: 100 mls/hr Amino Acids (Clinimix 4.25/5 % "E" (1000 Ml)) 1,000 mls @ 83 mls/hr IV .Q12H3M ONE Stop: 04/10/17 06:02 Last Admin: 04/09/17 18:49 Dose: 83 mls/hr Amino Acids (Clinimix 4.25/5 % "E" (1000 Ml)) 1,000 mls @ 83 mls/hr IV .Q12H3M ONE Stop: 04/10/17 18:05 Insulin Aspart (Novolog) 0 unit SC ACHS [facility] PRN Reason: Protocol Last Admin: 04/09/17 17:00 Dose: 2 unit Lactobacillus Acidophilus (Bacid Acidophilus) 1 cap PO DAILY [facility] Last Admin: 04/09/17 10:18 Dose: 1 cap Magnesium Oxide (Mag-Ox) 400 mg PO DAILY [facility] Last Admin: 04/09/17 10:18 Dose: 400 mg Ondansetron HCl (Zofran Inj) 4 mg IVP Q4 PRN PRN Reason: Nausea/Vomiting Pantoprazole Sodium (Protonix Ec Tab) 40 mg PO DAILY [facility] Last Admin: 04/09/17 10:18 Dose: 40 mg Zinc Sulfate (Zinc Sulfate 220 Mg Cap) 220 mg PO DAILY [facility] Last Admin: 04/09/17 10:18 Dose: 220 mg - Labs Labs: 04/09/17 09:05 04/09/17 09:05 PT 11.4 SECONDS (9.7-12.2) 04/04/17 16:41 INR 1.0 04/04/17 16:41 APTT 18 SECONDS (21-34) L 04/04/17 16:41 - Constitutional Appears: Non-toxic - Head Exam Head Exam: ATRAUMATIC, NORMAL INSPECTION - Eye Exam Eye Exam: EOMI, PERRL - ENT Exam ENT Exam: Mucous Membranes Moist - Neck Exam Neck Exam: Full ROM, Normal Inspection - Respiratory Exam Respiratory Exam: Clear to Ausculation Bilateral, NORMAL BREATHING PATTERN - Cardiovascular Exam Cardiovascular Exam: REGULAR RHYTHM, +S1, +S2 - GI/Abdominal Exam GI & Abdominal Exam: Soft, Normal Bowel Sounds - Extremities Exam Extremities Exam: Full ROM - Neurological Exam Neurological Exam: Alert - Psychiatric Exam Psychiatric exam: Normal Mood - Skin Skin Exam: Warm Assessment and Plan - Assessment and Plan (Free Text) Assessment: Patient without cardiac events Comfortable For surgery Monday
--- NOTE | 2017-04-10 02:38 | CON ---
DATE: 04/05/2017 UROLOGY CONSULTATION Urology consultation was requested by Dr. Wilfrido Higgins. Urology consultation was filled by Dr. Yoon Fernandez. REASON FOR CONSULTATION: Colovesical fistula. HISTORY OF PRESENT ILLNESS: The patient is a 61-year-old female, admitted with abdominal pain. The patient is in otherwise fair health. The patient has a history of previous abdominal surgery. The patient presented with abdominal pain. She was hospitalized at [facility]. The patient underwent previous laparotomy. She also underwent small bowel resection. The patient was found to have a fistula between her bladder and her small bowel. The patient underwent the resection of the small bowel and bladder segment that was involved with the fistula. The patient subsequently had leakage of urine. She had an indwelling Mckeon catheter. She persisted with urinary leakage. Drain had been removed. The patient also had bilateral percutaneous nephrostomy tubes inserted at [facility]. The patient was subsequently to rehab center. Mrs. Higgins is currently readmitted with abdominal pain. There has been no hematuria. There has been no urine output via the urethral Mckeon catheter. The patient has had bilateral nephrostomy tubes with clear urine. The patient has had diffuse abdominal pain. The patient has had bowel movements. She has had poor appetite and poor p.o. intake. The patient had previous urologic and general surgery care and consultation and surgery at [facility]. PHYSICAL EXAMINATION: GENERAL: The patient is a well-developed female, appearing older than her stated age. ABDOMEN: Soft. There is diffuse tenderness. There was no mass or organomegaly. Bowel sounds normal. BACK: The patient has bilateral nephrostomy tubes in place, draining clear urine. The patient has a Mckeon catheter in place. The catheter is within the patient's introitus. However, the catheter is unusually located in its position, such that it is in far beyond what would expect if it were located in the normal perfectly-located bladder. There is no urethral Mckeon catheter. LABORATORY DATA: Reviewed. Renal function is normal. The patient has anemia. The patient has hypoalbuminemia. 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 The patient now has indwelling catheter. The location of the catheter needs to be determined. Presumably, catheter was originally placed in the bladder at the appointment of her previous surgery. The patient has bilateral nephrostomy tubes. RECOMMENDATION AND PLAN: Review CT scan. The patient is originally scheduled for contrast studies. Consider cystogram. Further therapy to follow according to the patient's clinical course. I will discuss the matter further with the network consultant as well as with the patient's attending physician. Thank you for recommending the patient for urology consultation. I have discussed the matter with the patient as well. Yoon Fernandez MD cc: Yono Fernandez MD <
[2017-04-10 07:15] LABS: BLOOD UREA NITROGEN 18 mg/dL (7-17); CALCIUM 8.7 mg/dl (8.6-10.4); CARBON DIOXIDE 14 mmol/L (22-30); CHLORIDE 108 mmol/L (98-107); GFR AFRICAN-AMERICAN > 60; GLUCOSE,RANDOM 260 mg/dL (65-105); SODIUM 131 mmol/L (132-148)
[2017-04-10 07:31] LABS: HEMATOCRIT 27.8 % (34.0-47.0); MEAN CELL VOLUME 82.4 fL (81.0-99.0); MEAN CORPUSCULAR HGB CONC 32.8 g/dL (33.0-37.0); MEAN PLATELET VOLUME 7.2 fL (7.2-11.7); RED CELL DISTRIBUTION WIDTH 14.7 % (11.5-14.5)
[2017-04-10] MEDS: (Novolog) Insulin Aspart, Recombinant 100 u/ml 10 ml vial SC SCH ×4 (07:50→22:29)
--- NOTE | 2017-04-10 10:58 | CP.PCM.PN ---
Subjective - Date & Time of Evaluation Date of Evaluation: 04/10/17 Time of Evaluation: 07:00 - Subjective Subjective: iv rx in progress Objective - Vital Signs/Intake and Output Vital Signs (last 24 hours): Temp Pulse Resp BP Pulse Ox 97.6 F 100 H 18 105/68 99 04/10/17 07:10 04/10/17 07:10 04/10/17 07:10 04/10/17 07:10 04/10/17 07:10 Intake and Output: 04/10/17 04/10/17 06:59 18:59 Intake Total 2198 Output Total 850 Balance 1348 - Medications Medications: Current Medications Acetaminophen (Tylenol 325mg Tab) 650 mg PO Q4 PRN PRN Reason: Fever >100.4 F Ascorbic Acid (Vitamin C 500 Mg Tab) 500 mg PO DAILY [facility] Last Admin: 04/09/17 10:18 Dose: 500 mg Enoxaparin Sodium (Lovenox) 40 mg SC DAILY [facility] Last Admin: 04/09/17 10:19 Dose: 40 mg Imipenem/Cilastatin Sodium 500 (mg/ Sodium Chloride) 100 mls @ 100 mls/hr IVPB Q6H [facility] Last Admin: 04/10/17 03:40 Dose: 100 mls/hr Amino Acids (Clinimix 4.25/5 % "E" (1000 Ml)) 1,000 mls @ 83 mls/hr IV .Q12H3M ONE Stop: 04/10/17 18:05 Last Admin: 04/10/17 07:42 Dose: 83 mls/hr Insulin Aspart (Novolog) 0 unit SC ACHS [facility] PRN Reason: Protocol Last Admin: 04/10/17 07:50 Dose: 3 unit Lactobacillus Acidophilus (Bacid Acidophilus) 1 cap PO DAILY [facility] Last Admin: 04/09/17 10:18 Dose: 1 cap Magnesium Oxide (Mag-Ox) 400 mg PO DAILY [facility] Last Admin: 04/09/17 10:18 Dose: 400 mg Ondansetron HCl (Zofran Inj) 4 mg IVP Q4 PRN PRN Reason: Nausea/Vomiting Pantoprazole Sodium (Protonix Ec Tab) 40 mg PO DAILY [facility] Last Admin: 04/09/17 10:18 Dose: 40 mg Zinc Sulfate (Zinc Sulfate 220 Mg Cap) 220 mg PO DAILY [facility] Last Admin: 04/09/17 10:18 Dose: 220 mg - Labs Labs: 04/10/17 06:53 04/10/17 06:53 PT 11.4 SECONDS (9.7-12.2) 04/04/17 16:41 INR 1.0 04/04/17 16:41 APTT 18 SECONDS (21-34) L 04/04/17 16:41 - Constitutional Appears: Non-toxic, Chronically Ill - Head Exam Head Exam: NORMOCEPHALIC - Eye Exam Eye Exam: PERRL. absent: Scleral icterus - ENT Exam ENT Exam: Mucous Membranes Dry - Neck Exam Neck Exam: absent: Lymphadenopathy - Respiratory Exam Respiratory Exam: Decreased Breath Sounds - Cardiovascular Exam Cardiovascular Exam: REGULAR RHYTHM - GI/Abdominal Exam GI & Abdominal Exam: Distended, Soft, Tenderness Assessment and Plan (1) Colonic fistula Status: Acute (2) Displacement of Mckeon catheter Status: Acute
[2017-04-10] MEDS: Enoxaparin 40 mg Syringe SC SCH (11:02)
[2017-04-10] MEDS: Magnesium Oxide 400 mg Tab UD PO SCH (11:03)
[2017-04-10] MEDS: Lactobacillus Acidophilus 500 MU Cap PO SCH (11:03)
[2017-04-10] MEDS: Pantoprazole 40 mg EC Tab PO SCH (11:03)
--- NOTE | 2017-04-10 14:19 | CP.PCM.PN ---
<EduardokikoElbert brandon - Last Filed: 04/10/17 14:20> Subjective - Date & Time of Evaluation Date of Evaluation: 04/10/17 Time of Evaluation: 14:16 - Subjective Subjective: Surgery: Dr. Cabral Pt seen and examined. Continues to have mild abd pain. No other complaints. Objective - Vital Signs/Intake and Output Vital Signs (last 24 hours): Temp Pulse Resp BP Pulse Ox 97.6 F 100 H 18 105/68 99 04/10/17 07:10 04/10/17 07:10 04/10/17 07:10 04/10/17 07:10 04/10/17 07:10 Intake and Output: 04/10/17 04/10/17 06:59 18:59 Intake Total 2198 Output Total 850 Balance 1348 - Medications Medications: Current Medications Acetaminophen (Tylenol 325mg Tab) 650 mg PO Q4 PRN PRN Reason: Fever >100.4 F Ascorbic Acid (Vitamin C 500 Mg Tab) 500 mg PO DAILY [facility] Last Admin: 04/10/17 11:03 Dose: 500 mg Enoxaparin Sodium (Lovenox) 40 mg SC DAILY [facility] Last Admin: 04/10/17 11:02 Dose: 40 mg Imipenem/Cilastatin Sodium 500 (mg/ Sodium Chloride) 100 mls @ 100 mls/hr IVPB Q6H [facility] Last Admin: 04/10/17 11:02 Dose: 100 mls/hr Amino Acids (Clinimix 4.25/5 % "E" (1000 Ml)) 1,000 mls @ 83 mls/hr IV .Q12H3M ONE Stop: 04/10/17 18:05 Last Admin: 04/10/17 07:42 Dose: 83 mls/hr Multivitamins/Vitamin C 10 ml/ (Amino Acids) 1,010 mls @ 83 mls/hr IV .[id number] [facility] Stop: 04/11/17 06:10 Amino Acids (Clinimix 4.25/5 % "E" (1000 Ml)) 1,000 mls @ 83 mls/hr IV .Q12H3M [facility] Stop: 04/11/17 17:59 Insulin Aspart (Novolog) 0 unit SC ACHS [facility] PRN Reason: Protocol Last Admin: 04/10/17 13:05 Dose: 4 unit Lactobacillus Acidophilus (Bacid Acidophilus) 1 cap PO DAILY [facility] Last Admin: 04/10/17 11:03 Dose: 1 cap Magnesium Oxide (Mag-Ox) 400 mg PO DAILY [facility] Last Admin: 04/10/17 11:03 Dose: 400 mg Ondansetron HCl (Zofran Inj) 4 mg IVP Q4 PRN PRN Reason: Nausea/Vomiting Pantoprazole Sodium (Protonix Ec Tab) 40 mg PO DAILY [facility] Last Admin: 04/10/17 11:03 Dose: 40 mg Zinc Sulfate (Zinc Sulfate 220 Mg Cap) 220 mg PO DAILY [facility] Last Admin: 04/10/17 11:03 Dose: 220 mg - Labs Labs: 04/10/17 06:53 04/10/17 06:53 PT 11.4 SECONDS (9.7-12.2) 04/04/17 16:41 INR 1.0 04/04/17 16:41 APTT 18 SECONDS (21-34) L 04/04/17 16:41 - Constitutional Appears: Cachectic, Chronically Ill - Head Exam Head Exam: ATRAUMATIC, NORMOCEPHALIC - Eye Exam Eye Exam: EOMI - Respiratory Exam Respiratory Exam: NORMAL BREATHING PATTERN. absent: Respiratory Distress - GI/Abdominal Exam GI & Abdominal Exam: Soft, Tenderness (mild lower abd). absent: Distended, Firm , Guarding, Rigid, Rebound - Extremities Exam Extremities Exam: absent: Calf Tenderness, Pedal Edema - Neurological Exam Neurological Exam: Alert, Awake - Skin Skin Exam: Dry, Warm Assessment and Plan - Assessment and Plan (Free Text) Assessment: 61F s/p hysterectomy and b/l nephrostomy tubes now w. colovescicular fistula and pelvic abscess -Plan for OR monday -continue to optimize nutrition, f/u on albumin and protein in AM -c/w abx -d/w attending Heather PGY3 <Sumeet Cabral B - Last Filed: 04/16/17 17:05> Objective - Vital Signs/Intake and Output Vital Signs (last 24 hours): Temp Pulse Resp BP Pulse Ox 98 F 103 H 19 119/65 99 04/16/17 12:00 04/16/17 15:00 04/16/17 15:00 04/16/17 15:00 04/16/17 15:00 Intake and Output: 04/16/17 04/16/17 06:59 18:59 Intake Total 1145 700 Output Total 2443 7468 Balance -438 -212 - Medications Medications: Current Medications Acetaminophen (Tylenol 325mg Tab) 650 mg PO Q4 PRN PRN Reason: Fever >100.4 F Ascorbic Acid (Vitamin C 500 Mg Tab) 500 mg PO DAILY [facility] Last Admin: 04/16/17 09:45 Dose: 500 mg Heparin Sodium (Porcine) (Heparin) 5,000 units SC Q12 [facility] Last Admin: 04/16/17 09:43 Dose: 5,000 units Tigecycline 50 mg/ Sodium (Chloride) 100 mls @ 100 mls/hr IVPB Q12H [facility] Last Admin: 04/16/17 05:28 Dose: 100 mls/hr BUPIVACAINE 0.125%/0.9% NACL (Bupivacaine-Ns 0.125% On-Q [employer]) 600 mls @ 4 mls/ hr IJ ONCE ONE Stop: 04/21/17 16:56 Last Admin: 04/15/17 20:00 Dose: 4 mls/hr Fluconazole (Diflucan Iv 100 Mg/50 Ml Ns) 50 mls @ 50 mls/hr IVPB Q24H [facility] Last Admin: 04/16/17 10:03 Dose: 50 mls/hr Insulin Aspart (Novolog) 0 unit SC ACHS [facility] PRN Reason: Protocol Last Admin: 04/16/17 12:00 Dose: 6 unit Lactobacillus Acidophilus (Bacid Acidophilus) 1 cap PO DAILY [facility] Last Admin: 04/16/17 09:44 Dose: 1 cap Magnesium Oxide (Mag-Ox) 400 mg PO DAILY [facility] Last Admin: 04/16/17 09:45 Dose: 400 mg Morphine Sulfate (Morphine) 4 mg IVP Q4 PRN PRN Reason: Pain, severe (8-10) Ondansetron HCl (Zofran Inj) 4 mg IVP Q4 PRN PRN Reason: Nausea/Vomiting Last Admin: 04/15/17 17:55 Dose: 4 mg Oxycodone/Acetaminophen (Percocet 5/325 Mg Tab) 1 tab PO Q4H PRN PRN Reason: Pain, moderate (4-7) Stop: 04/19/17 07:50 Pantoprazole Sodium (Protonix Inj) 40 mg IVP DAILY [facility] Last Admin: 04/16/17 09:43 Dose: 40 mg Zinc Sulfate (Zinc Sulfate 220 Mg Cap) 220 mg PO DAILY [facility] Last Admin: 04/16/17 09:44 Dose: 220 mg - Labs Labs: 04/16/17 06:29 04/16/17 06:29 PT 11.9 SECONDS (9.7-12.2) 04/13/17 06:28 INR 1.1 04/13/17 06:28 APTT 27 SECONDS (21-34) 04/13/17 06:28 Attending/Attestation - Attestation I have personally seen and examined this patient.: Yes I have fully participated in the care of the patient.: Yes I have reviewed all pertinent clinical information, including history, physical exam and plan: Yes Notes (Text): 04/16/17 17:03 Pt was seen and examined at bedside Agree with above note and assessment Pt with Colovesicular fistula s/p SBR and bladder repair at [facility] Severe malnutrition Pt continue to have moderate to severe abdominal pain C/w PPN, IV hydration, High protein diet Medical clearance C/w IV antibiotics Plan d.w pt in detail Risk and benefit explained
[2017-04-10] MEDS ORDERED: PPN #7 IV ONE (18:00)
--- NOTE | 2017-04-10 19:33 | CP.PCM.PN ---
Subjective - Date & Time of Evaluation Date of Evaluation: 04/10/17 Time of Evaluation: 10:40 - Subjective Subjective: clinically same Objective - Vital Signs/Intake and Output Vital Signs (last 24 hours): Temp Pulse Resp BP Pulse Ox 98.5 F 111 H 18 114/71 100 04/10/17 15:05 04/10/17 15:05 04/10/17 15:05 04/10/17 15:05 04/10/17 15:05 Intake and Output: 04/10/17 04/11/17 18:59 06:59 Intake Total 967 Output Total 525 Balance 442 - Medications Medications: Current Medications Acetaminophen (Tylenol 325mg Tab) 650 mg PO Q4 PRN PRN Reason: Fever >100.4 F Ascorbic Acid (Vitamin C 500 Mg Tab) 500 mg PO DAILY [facility] Last Admin: 04/10/17 11:03 Dose: 500 mg Enoxaparin Sodium (Lovenox) 40 mg SC DAILY [facility] Last Admin: 04/10/17 11:02 Dose: 40 mg Imipenem/Cilastatin Sodium 500 (mg/ Sodium Chloride) 100 mls @ 100 mls/hr IVPB Q6H [facility] Last Admin: 04/10/17 16:30 Dose: 100 mls/hr Multivitamins/Vitamin C 10 ml/ (Amino Acids) 1,010 mls @ 83 mls/hr IV .[id number] ONE Stop: 04/11/17 06:10 Last Admin: 04/10/17 18:48 Dose: 83 mls/hr Amino Acids (Clinimix 4.25/5 % "E" (1000 Ml)) 1,000 mls @ 83 mls/hr IV .Q12H3M [facility] Stop: 04/11/17 17:59 Insulin Aspart (Novolog) 0 unit SC ACHS [facility] PRN Reason: Protocol Last Admin: 04/10/17 17:00 Dose: 1 unit Lactobacillus Acidophilus (Bacid Acidophilus) 1 cap PO DAILY [facility] Last Admin: 04/10/17 11:03 Dose: 1 cap Magnesium Oxide (Mag-Ox) 400 mg PO DAILY [facility] Last Admin: 04/10/17 11:03 Dose: 400 mg Ondansetron HCl (Zofran Inj) 4 mg IVP Q4 PRN PRN Reason: Nausea/Vomiting Pantoprazole Sodium (Protonix Ec Tab) 40 mg PO DAILY [facility] Last Admin: 04/10/17 11:03 Dose: 40 mg Zinc Sulfate (Zinc Sulfate 220 Mg Cap) 220 mg PO DAILY [facility] Last Admin: 04/10/17 11:03 Dose: 220 mg - Labs Labs: 04/10/17 06:53 04/10/17 06:53 PT 11.4 SECONDS (9.7-12.2) 04/04/17 16:41 INR 1.0 04/04/17 16:41 APTT 18 SECONDS (21-34) L 04/04/17 16:41 - Constitutional Appears: Well - Head Exam Head Exam: ATRAUMATIC, NORMAL INSPECTION, NORMOCEPHALIC - Eye Exam Eye Exam: EOMI, Normal appearance, PERRL Pupil Exam: NORMAL ACCOMODATION, PERRL - ENT Exam ENT Exam: Mucous Membranes Moist, Normal Exam - Neck Exam Neck Exam: Full ROM, Normal Inspection. absent: Lymphadenopathy - Respiratory Exam Respiratory Exam: Decreased Breath Sounds - Cardiovascular Exam Cardiovascular Exam: REGULAR RHYTHM, +S1, +S2 - GI/Abdominal Exam GI & Abdominal Exam: Soft, Diminished Bowel Sounds - Rectal Exam Rectal Exam: Deferred - Back Exam Back Exam: NORMAL INSPECTION - Neurological Exam Neurological Exam: Alert, Awake, CN II-XII Intact, Normal Gait, Oriented x3 - Psychiatric Exam Psychiatric exam: Normal Affect, Normal Mood - Skin Skin Exam: Dry, Intact, Normal Color, Warm Assessment and Plan (1) Colonic fistula Status: Acute (2) Displacement of Mckeon catheter Status: Acute - Assessment and Plan (Free Text) Plan: Patient examined. Continue to mild pain in abdomen. OR on Monday. Optimize her nutrition. Continue insulin. Tigecycline. Continue supportive care.
--- NOTE | 2017-04-10 22:35 | CP.PCM.PN ---
Subjective - Date & Time of Evaluation Date of Evaluation: 04/10/17 Time of Evaluation: 18:00 - Subjective Subjective: Patient seen and evaluated No cardiac events Objective - Vital Signs/Intake and Output Vital Signs (last 24 hours): Temp Pulse Resp BP Pulse Ox 98.5 F 111 H 18 114/71 100 04/10/17 15:05 04/10/17 15:05 04/10/17 15:05 04/10/17 15:05 04/10/17 15:05 Intake and Output: 04/10/17 04/11/17 18:59 06:59 Intake Total 967 Output Total 525 Balance 442 - Medications Medications: Current Medications Acetaminophen (Tylenol 325mg Tab) 650 mg PO Q4 PRN PRN Reason: Fever >100.4 F Ascorbic Acid (Vitamin C 500 Mg Tab) 500 mg PO DAILY [facility] Last Admin: 04/10/17 11:03 Dose: 500 mg Enoxaparin Sodium (Lovenox) 40 mg SC DAILY [facility] Last Admin: 04/10/17 11:02 Dose: 40 mg Imipenem/Cilastatin Sodium 500 (mg/ Sodium Chloride) 100 mls @ 100 mls/hr IVPB Q6H [facility] Last Admin: 04/10/17 16:30 Dose: 100 mls/hr Multivitamins/Vitamin C 10 ml/ (Amino Acids) 1,010 mls @ 83 mls/hr IV .[id number] ONE Stop: 04/11/17 06:10 Last Admin: 04/10/17 18:48 Dose: 83 mls/hr Amino Acids (Clinimix 4.25/5 % "E" (1000 Ml)) 1,000 mls @ 83 mls/hr IV .Q12H3M [facility] Stop: 04/11/17 17:59 Insulin Aspart (Novolog) 0 unit SC ACHS [facility] PRN Reason: Protocol Last Admin: 04/10/17 22:29 Dose: Not Given Lactobacillus Acidophilus (Bacid Acidophilus) 1 cap PO DAILY [facility] Last Admin: 04/10/17 11:03 Dose: 1 cap Magnesium Oxide (Mag-Ox) 400 mg PO DAILY [facility] Last Admin: 04/10/17 11:03 Dose: 400 mg Ondansetron HCl (Zofran Inj) 4 mg IVP Q4 PRN PRN Reason: Nausea/Vomiting Pantoprazole Sodium (Protonix Ec Tab) 40 mg PO DAILY [facility] Last Admin: 04/10/17 11:03 Dose: 40 mg Zinc Sulfate (Zinc Sulfate 220 Mg Cap) 220 mg PO DAILY [facility] Last Admin: 04/10/17 11:03 Dose: 220 mg - Labs Labs: 04/10/17 06:53 04/10/17 06:53 PT 11.4 SECONDS (9.7-12.2) 04/04/17 16:41 INR 1.0 04/04/17 16:41 APTT 18 SECONDS (21-34) L 04/04/17 16:41
[2017-04-11] MEDS ORDERED: PPN #8 IV SCH (06:12)
[2017-04-11 07:22] LABS: HEMATOCRIT 27.1 % (34.0-47.0); MEAN CELL VOLUME 81.7 fL (81.0-99.0); MEAN PLATELET VOLUME 7.4 fL (7.2-11.7); RED CELL DISTRIBUTION WIDTH 14.6 % (11.5-14.5); WHITE BLOOD COUNT 6.6 K/uL (4.8-10.8)
[2017-04-11 07:59] LABS: CHLORIDE 106 mmol/L (98-107); POTASSIUM 4.6 mmol/L (3.6-5.2); SODIUM 132 mmol/L (132-148)
[2017-04-11 08:01] LABS: GFR AFRICAN-AMERICAN > 60
[2017-04-11 08:02] LABS: ALB/GLOB RATIO 0.6 (1.0-2.1); ALKALINE PHOSPHATASE 120 U/L (38-126); ALT/SGPT 19 U/L (9-52); AST/SGOT 18 U/L (14-36); BILIRUBIN,TOTAL 0.2 mg/dL (0.2-1.3); BLOOD UREA NITROGEN 21 mg/dL (7-17); CALCIUM 8.8 mg/dl (8.6-10.4); CARBON DIOXIDE 15 mmol/L (22-30); GLUCOSE,RANDOM 252 mg/dL (65-105); TOTAL PROTEIN 6.6 g/dL (6.3-8.3)
[2017-04-11] MEDS: (Novolog) Insulin Aspart, Recombinant 100 u/ml 10 ml vial SC SCH ×3 (08:24→21:19)
[2017-04-11] MEDS: Lactobacillus Acidophilus 500 MU Cap PO SCH (10:01)
[2017-04-11] MEDS: Magnesium Oxide 400 mg Tab UD PO SCH (10:01)
[2017-04-11] MEDS: Enoxaparin 40 mg Syringe SC SCH (10:01)
[2017-04-11] MEDS: Pantoprazole 40 mg EC Tab PO SCH (10:02)
--- NOTE | 2017-04-11 12:06 | CP.PCM.PN ---
Subjective - Date & Time of Evaluation Date of Evaluation: 04/11/17 Time of Evaluation: 09:00 - Subjective Subjective: events noted iv rx renewed appears comfortable nad Objective - Vital Signs/Intake and Output Vital Signs (last 24 hours): Temp Pulse Resp BP Pulse Ox 98.2 F 97 H 18 107/70 100 04/11/17 09:06 04/11/17 09:06 04/11/17 09:06 04/11/17 09:06 04/11/17 09:06 Intake and Output: 04/11/17 04/11/17 06:59 18:59 Intake Total 884 Output Total 1125 Balance -241 - Medications Medications: Current Medications Acetaminophen (Tylenol 325mg Tab) 650 mg PO Q4 PRN PRN Reason: Fever >100.4 F Ascorbic Acid (Vitamin C 500 Mg Tab) 500 mg PO DAILY [facility] Last Admin: 04/11/17 10:01 Dose: 500 mg Enoxaparin Sodium (Lovenox) 40 mg SC DAILY [facility] Last Admin: 04/11/17 10:01 Dose: 40 mg Imipenem/Cilastatin Sodium 500 (mg/ Sodium Chloride) 100 mls @ 100 mls/hr IVPB Q6H [facility] Last Admin: 04/11/17 09:59 Dose: 100 mls/hr Amino Acids (Clinimix 4.25/5 % "E" (1000 Ml)) 1,000 mls @ 83 mls/hr IV .Q12H3M [facility] Stop: 04/11/17 17:59 Last Admin: 04/11/17 06:38 Dose: 83 mls/hr Multivitamins/Vitamin C 10 ml/ (Amino Acids) 1,010 mls @ 83 mls/hr IV .[id number] [facility] Stop: 04/12/17 06:10 Amino Acids (Clinimix 4.25/5 % "E" (1000 Ml)) 1,000 mls @ 83 mls/hr IV .Q12H3M [facility] Stop: 04/12/17 17:59 Insulin Aspart (Novolog) 0 unit SC ACHS [facility] PRN Reason: Protocol Last Admin: 04/11/17 08:24 Dose: 3 unit Lactobacillus Acidophilus (Bacid Acidophilus) 1 cap PO DAILY [facility] Last Admin: 04/11/17 10:01 Dose: 1 cap Magnesium Oxide (Mag-Ox) 400 mg PO DAILY [facility] Last Admin: 04/11/17 10:01 Dose: 400 mg Ondansetron HCl (Zofran Inj) 4 mg IVP Q4 PRN PRN Reason: Nausea/Vomiting Pantoprazole Sodium (Protonix Ec Tab) 40 mg PO DAILY [facility] Last Admin: 04/11/17 10:02 Dose: 40 mg Zinc Sulfate (Zinc Sulfate 220 Mg Cap) 220 mg PO DAILY [facility] Last Admin: 04/11/17 10:01 Dose: 220 mg - Labs Labs: 04/11/17 07:13 04/11/17 07:13 PT 11.4 SECONDS (9.7-12.2) 04/04/17 16:41 INR 1.0 04/04/17 16:41 APTT 18 SECONDS (21-34) L 04/04/17 16:41 - Constitutional Appears: Non-toxic, Cachectic, Chronically Ill - Head Exam Head Exam: NORMOCEPHALIC - Eye Exam Eye Exam: PERRL - ENT Exam ENT Exam: Mucous Membranes Dry - Neck Exam Neck Exam: absent: Lymphadenopathy - Respiratory Exam Respiratory Exam: Decreased Breath Sounds - Cardiovascular Exam Cardiovascular Exam: REGULAR RHYTHM - GI/Abdominal Exam GI & Abdominal Exam: Distended Assessment and Plan (1) Colonic fistula Status: Acute (2) Displacement of Mckeon catheter Status: Acute - Assessment and Plan (Free Text) Plan: cont rx esbl
--- NOTE | 2017-04-11 15:56 | CP.PCM.PN ---
<Elbert Romero - Last Filed: 04/11/17 15:57> Subjective - Date & Time of Evaluation Date of Evaluation: 04/11/17 Time of Evaluation: 15:51 - Subjective Subjective: Surgery: Dr. Cabral Pt seen and examined. No acute events overnight. Continues to have abd discomfort. Objective - Vital Signs/Intake and Output Vital Signs (last 24 hours): Temp Pulse Resp BP Pulse Ox 98.2 F 97 H 18 107/70 100 04/11/17 09:06 04/11/17 09:06 04/11/17 09:06 04/11/17 09:06 04/11/17 09:06 Intake and Output: 04/11/17 04/11/17 06:59 18:59 Intake Total 884 972 Output Total 1125 650 Balance -241 322 - Medications Medications: Current Medications Acetaminophen (Tylenol 325mg Tab) 650 mg PO Q4 PRN PRN Reason: Fever >100.4 F Ascorbic Acid (Vitamin C 500 Mg Tab) 500 mg PO DAILY [facility] Last Admin: 04/11/17 10:01 Dose: 500 mg Imipenem/Cilastatin Sodium 500 (mg/ Sodium Chloride) 100 mls @ 100 mls/hr IVPB Q6H [facility] Last Admin: 04/11/17 09:59 Dose: 100 mls/hr Amino Acids (Clinimix 4.25/5 % "E" (1000 Ml)) 1,000 mls @ 83 mls/hr IV .Q12H3M [facility] Stop: 04/11/17 17:59 Last Admin: 04/11/17 06:38 Dose: 83 mls/hr Multivitamins/Vitamin C 10 ml/ (Amino Acids) 1,010 mls @ 83 mls/hr IV .[id number] [facility] Stop: 04/12/17 06:10 Amino Acids (Clinimix 4.25/5 % "E" (1000 Ml)) 1,000 mls @ 83 mls/hr IV .Q12H3M [facility] Stop: 04/12/17 17:59 Insulin Aspart (Novolog) 0 unit SC ACHS [facility] PRN Reason: Protocol Last Admin: 04/11/17 12:30 Dose: 2 unit Lactobacillus Acidophilus (Bacid Acidophilus) 1 cap PO DAILY [facility] Last Admin: 04/11/17 10:01 Dose: 1 cap Magnesium Oxide (Mag-Ox) 400 mg PO DAILY [facility] Last Admin: 04/11/17 10:01 Dose: 400 mg Ondansetron HCl (Zofran Inj) 4 mg IVP Q4 PRN PRN Reason: Nausea/Vomiting Pantoprazole Sodium (Protonix Ec Tab) 40 mg PO DAILY [facility] Last Admin: 04/11/17 10:02 Dose: 40 mg Zinc Sulfate (Zinc Sulfate 220 Mg Cap) 220 mg PO DAILY [facility] Last Admin: 04/11/17 10:01 Dose: 220 mg - Labs Labs: 04/11/17 07:13 04/11/17 07:13 PT 11.4 SECONDS (9.7-12.2) 04/04/17 16:41 INR 1.0 04/04/17 16:41 APTT 18 SECONDS (21-34) L 04/04/17 16:41 - Constitutional Appears: No Acute Distress, Older Than Stated Age, Chronically Ill - Head Exam Head Exam: ATRAUMATIC, NORMOCEPHALIC - Eye Exam Eye Exam: EOMI - ENT Exam ENT Exam: Mucous Membranes Moist - Neck Exam Neck Exam: Full ROM - Respiratory Exam Respiratory Exam: NORMAL BREATHING PATTERN. absent: Accessory Muscle Use, Respiratory Distress - GI/Abdominal Exam GI & Abdominal Exam: Soft, Tenderness. absent: Distended, Firm, Guarding, Rigid , Rebound - Extremities Exam Extremities Exam: absent: Calf Tenderness, Pedal Edema - Back Exam Additional comments: b/l nephrostomy tubes - Neurological Exam Neurological Exam: Alert, Awake Assessment and Plan - Assessment and Plan (Free Text) Assessment: 61F w. colovesiculo fistula -OR tomorrow for repair -NPO at midnight -transfuse 1U PRBC today -hold anti-coagulation -AM labs -d/w attending Zemaitis PGY3 <Sumeet Cabral B - Last Filed: 04/16/17 17:15> Objective - Vital Signs/Intake and Output Vital Signs (last 24 hours): Temp Pulse Resp BP Pulse Ox 98 F 103 H 19 119/65 99 04/16/17 12:00 04/16/17 15:00 04/16/17 15:00 04/16/17 15:00 04/16/17 15:00 Intake and Output: 04/16/17 04/16/17 06:59 18:59 Intake Total 1145 700 Output Total 1870 1325 Balance -646 -240 - Medications Medications: Current Medications Acetaminophen (Tylenol 325mg Tab) 650 mg PO Q4 PRN PRN Reason: Fever >100.4 F Ascorbic Acid (Vitamin C 500 Mg Tab) 500 mg PO DAILY [facility] Last Admin: 04/16/17 09:45 Dose: 500 mg Heparin Sodium (Porcine) (Heparin) 5,000 units SC Q12 [facility] Last Admin: 04/16/17 09:43 Dose: 5,000 units Tigecycline 50 mg/ Sodium (Chloride) 100 mls @ 100 mls/hr IVPB Q12H [facility] Last Admin: 04/16/17 05:28 Dose: 100 mls/hr BUPIVACAINE 0.125%/0.9% NACL (Bupivacaine-Ns 0.125% On-Q Pump Operator) 600 mls @ 4 mls/ hr IJ ONCE [facility] Stop: 04/21/17 16:56 Last Admin: 04/15/17 20:00 Dose: 4 mls/hr Fluconazole (Diflucan Iv 100 Mg/50 Ml Ns) 50 mls @ 50 mls/hr IVPB Q24H [facility] Last Admin: 04/16/17 10:03 Dose: 50 mls/hr Insulin Aspart (Novolog) 0 unit SC ACHS [facility] PRN Reason: Protocol Last Admin: 04/16/17 12:00 Dose: 6 unit Lactobacillus Acidophilus (Bacid Acidophilus) 1 cap PO DAILY [facility] Last Admin: 04/16/17 09:44 Dose: 1 cap Magnesium Oxide (Mag-Ox) 400 mg PO DAILY [facility] Last Admin: 04/16/17 09:45 Dose: 400 mg Morphine Sulfate (Morphine) 4 mg IVP Q4 PRN PRN Reason: Pain, severe (8-10) Ondansetron HCl (Zofran Inj) 4 mg IVP Q4 PRN PRN Reason: Nausea/Vomiting Last Admin: 04/15/17 17:55 Dose: 4 mg Oxycodone/Acetaminophen (Percocet 5/325 Mg Tab) 1 tab PO Q4H PRN PRN Reason: Pain, moderate (4-7) Stop: 04/19/17 07:50 Pantoprazole Sodium (Protonix Inj) 40 mg IVP DAILY [facility] Last Admin: 04/16/17 09:43 Dose: 40 mg Zinc Sulfate (Zinc Sulfate 220 Mg Cap) 220 mg PO DAILY [facility] Last Admin: 04/16/17 09:44 Dose: 220 mg - Labs Labs: 04/16/17 06:29 04/16/17 06:29 PT 11.9 SECONDS (9.7-12.2) 04/13/17 06:28 INR 1.1 04/13/17 06:28 APTT 27 SECONDS (21-34) 04/13/17 06:28 Attending/Attestation - Attestation I have personally seen and examined this patient.: Yes I have fully participated in the care of the patient.: Yes I have reviewed all pertinent clinical information, including history, physical exam and plan: Yes Notes (Text): 04/16/17 17:12 Pt was seen and examined at bedside Agree with above note and assessment 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
[2017-04-11] MEDS ORDERED: PPN #9 IV SCH (18:00)
--- NOTE | 2017-04-11 18:01 | CP.PCM.PN ---
Subjective - Date & Time of Evaluation Date of Evaluation: 04/11/17 Time of Evaluation: 12:00 - Subjective Subjective: clinically same Objective - Vital Signs/Intake and Output Vital Signs (last 24 hours): Temp Pulse Resp BP Pulse Ox 98.8 F 122 H 20 131/79 100 04/11/17 15:10 04/11/17 15:10 04/11/17 15:10 04/11/17 15:10 04/11/17 15:10 Intake and Output: 04/11/17 04/11/17 06:59 18:59 Intake Total 884 972 Output Total 1125 650 Balance -241 322 - Medications Medications: Current Medications Acetaminophen (Tylenol 325mg Tab) 650 mg PO Q4 PRN PRN Reason: Fever >100.4 F Ascorbic Acid (Vitamin C 500 Mg Tab) 500 mg PO DAILY [facility] Last Admin: 04/11/17 10:01 Dose: 500 mg Imipenem/Cilastatin Sodium 500 (mg/ Sodium Chloride) 100 mls @ 100 mls/hr IVPB Q6H [facility] Last Admin: 04/11/17 09:59 Dose: 100 mls/hr Amino Acids (Clinimix 4.25/5 % "E" (1000 Ml)) 1,000 mls @ 83 mls/hr IV .Q12H3M [facility] Stop: 04/11/17 17:59 Last Admin: 04/11/17 06:38 Dose: 83 mls/hr Multivitamins/Vitamin C 10 ml/ (Amino Acids) 1,010 mls @ 83 mls/hr IV .[id number] [facility] Stop: 04/12/17 06:10 Amino Acids (Clinimix 4.25/5 % "E" (1000 Ml)) 1,000 mls @ 83 mls/hr IV .Q12H3M [facility] Stop: 04/12/17 17:59 Insulin Aspart (Novolog) 0 unit SC ACHS [facility] PRN Reason: Protocol Last Admin: 04/11/17 12:30 Dose: 2 unit Lactobacillus Acidophilus (Bacid Acidophilus) 1 cap PO DAILY [facility] Last Admin: 04/11/17 10:01 Dose: 1 cap Magnesium Oxide (Mag-Ox) 400 mg PO DAILY [facility] Last Admin: 04/11/17 10:01 Dose: 400 mg Ondansetron HCl (Zofran Inj) 4 mg IVP Q4 PRN PRN Reason: Nausea/Vomiting Pantoprazole Sodium (Protonix Ec Tab) 40 mg PO DAILY [facility] Last Admin: 04/11/17 10:02 Dose: 40 mg Zinc Sulfate (Zinc Sulfate 220 Mg Cap) 220 mg PO DAILY [facility] Last Admin: 04/11/17 10:01 Dose: 220 mg - Labs Labs: 04/11/17 07:13 04/11/17 07:13 PT 11.4 SECONDS (9.7-12.2) 04/04/17 16:41 INR 1.0 04/04/17 16:41 APTT 18 SECONDS (21-34) L 04/04/17 16:41 - Constitutional Appears: Well - Head Exam Head Exam: ATRAUMATIC, NORMAL INSPECTION, NORMOCEPHALIC - Eye Exam Eye Exam: EOMI, Normal appearance, PERRL Pupil Exam: NORMAL ACCOMODATION, PERRL - ENT Exam ENT Exam: Mucous Membranes Moist, Normal Exam - Neck Exam Neck Exam: Full ROM, Normal Inspection. absent: Lymphadenopathy - Respiratory Exam Respiratory Exam: Decreased Breath Sounds - Cardiovascular Exam Cardiovascular Exam: REGULAR RHYTHM, +S1, +S2 - GI/Abdominal Exam GI & Abdominal Exam: Soft, Diminished Bowel Sounds - Rectal Exam Rectal Exam: Deferred - Back Exam Back Exam: NORMAL INSPECTION - Neurological Exam Neurological Exam: Alert, Awake, CN II-XII Intact, Normal Gait, Oriented x3 - Psychiatric Exam Psychiatric exam: Normal Affect, Normal Mood - Skin Skin Exam: Dry, Intact, Normal Color, Warm Assessment and Plan (1) Colonic fistula Status: Acute (2) Displacement of Mckeon catheter Status: Acute - Assessment and Plan (Free Text) Plan: Patient examined. No acute overnight events. The OT on Monday. Continue tigecycline. Insulin. Fluconazole. Supportive care. Raised total count at 16.1.
[2017-04-12] MEDS ORDERED: PPN #10 IV SCH (06:11)
[2017-04-12 07:15] LABS: MEAN CELL VOLUME 81.1 fL (81.0-99.0); MEAN CORPUSCULAR HEMOGLOBIN 27.8 pg (27.0-31.0); MEAN CORPUSCULAR HGB CONC 34.3 g/dL (33.0-37.0); MEAN PLATELET VOLUME 7.8 fL (7.2-11.7); RED CELL DISTRIBUTION WIDTH 14.9 % (11.5-14.5); WHITE BLOOD COUNT 7.6 K/uL (4.8-10.8)
[2017-04-12 07:25] LABS: CHLORIDE 105 mmol/L (98-107); SODIUM 128 mmol/L (132-148)
[2017-04-12] MEDS: (Novolog) Insulin Aspart, Recombinant 100 u/ml 10 ml vial SC SCH ×4 (07:25→23:42)
[2017-04-12 07:26] LABS: POTASSIUM 4.8 mmol/L (3.6-5.2)
[2017-04-12 07:28] LABS: ALB/GLOB RATIO 0.6 (1.0-2.1); ALKALINE PHOSPHATASE 169 U/L (38-126); AST/SGOT 18 U/L (14-36); BILIRUBIN,TOTAL 0.4 mg/dL (0.2-1.3); BLOOD UREA NITROGEN 25 mg/dL (7-17); CARBON DIOXIDE 15 mmol/L (22-30); GFR AFRICAN-AMERICAN > 60; GLUCOSE,RANDOM 230 mg/dL (65-105); PHOSPHOROUS 3.8 mg/dL (2.5-4.5); TOTAL PROTEIN 7.2 g/dL (6.3-8.3)
[2017-04-12 07:29] LABS: ALT/SGPT 26 U/L (9-52); CALCIUM 9.3 mg/dl (8.6-10.4); MAGNESIUM 1.6 mg/dL (1.6-2.3)
[2017-04-12] MEDS ORDERED: metroNIDAZOLE IV 500 mg/100 ml 500 MG/100 ML BAG ONE (07:57)
[2017-04-12] MEDS ORDERED: Bupivacaine HCl 0.5% PF (10 ml) Inj ONE ×2 (07:57→10:56)
[2017-04-12] MEDS ORDERED: ceFAZolin 1 gm FROZEN Premix 1 GM/50 ML ML IVPB ONE (07:58)
[2017-04-12] MEDS ORDERED: Lactated Ringer's 1,000 ML IV ONE ×6 (08:30→13:40)
[2017-04-12] MEDS ORDERED: BUPIVACAINE 0.125%/0.9% NACL 600 ML IJ ONE ×2 (08:39→14:45)
[2017-04-12] MEDS ORDERED: Propofol 10 mg/ml Inj (20 ML) ONE (08:39)
[2017-04-12] MEDS: Lactobacillus Acidophilus 500 MU Cap PO SCH (09:03)
[2017-04-12] MEDS: Magnesium Oxide 400 mg Tab UD PO SCH (09:04)
[2017-04-12] MEDS: Pantoprazole 40 mg EC Tab PO SCH (09:04)
[2017-04-12 10:13] LABS: DRAW SITE LINE
[2017-04-12 10:45] LABS: HEMATOCRIT 27.4 % (34.0-47.0); MEAN CELL VOLUME 81.6 fL (81.0-99.0); MEAN CORPUSCULAR HEMOGLOBIN 27.8 pg (27.0-31.0); MEAN CORPUSCULAR HGB CONC 34.1 g/dL (33.0-37.0); MEAN PLATELET VOLUME 7.7 fL (7.2-11.7); RED CELL DISTRIBUTION WIDTH 14.6 % (11.5-14.5); WHITE BLOOD COUNT 10.2 K/uL (4.8-10.8)
[2017-04-12] MEDS ORDERED: Sodium Chloride 0.9% 500 ML IV ONE ×2 (11:08→19:30)
[2017-04-12 12:12] LABS: ARTERIAL BLOOD HGB O2 SAT 97.8 % (95.0-98.0); CARBOXYHEMOGLOBIN 1.1 % (0.5-1.5); DRAW SITE LINE; HHB 0.4 % (0.0-5.0); METHEMOGLOBIN 0.7 % (0.0-3.0)
[2017-04-12 12:18] LABS: BASO # 0.1 K/uL (0.0-0.2); BASO % 0.4 % (0.0-2.0); EOS # 0.3 K/uL (0.0-0.7); EOS % 1.5 % (0.0-4.0); HEMATOCRIT 36.9 % (34.0-47.0); LYMPH # 4.6 K/uL (1.0-4.3); LYMPH % 24.6 % (20.0-40.0); MEAN CORPUSCULAR HEMOGLOBIN 27.7 pg (27.0-31.0); MEAN CORPUSCULAR HGB CONC 33.5 g/dL (33.0-37.0); MONO % 5.5 % (0.0-10.0); RED CELL DISTRIBUTION WIDTH 15.2 % (11.5-14.5)
[2017-04-12 12:22] LABS: WHITE BLOOD COUNT 18.6 K/uL (4.8-10.8)
--- NOTE | 2017-04-12 13:43 | PCM.SURG1 ---
Surgeon's Initial Post Op Note - Surgeon's Notes Surgeon: Dr. Cabral Apprentice Jockey: Dr. Deo Banks PGY2 Type of Anesthesia: General Endo Pre-Operative Diagnosis: colovesicula fistula. foreign body Operative Findings: see dictation Post-Operative Diagnosis: enterovesicula fistula, foreign body Operation Performed: exploratory laparotomy, small bowel resection x2, bladder repair, appendectomy, ileostomy Specimen/Specimens Removed: small bowel, terminal ileum, umbilical fluid culture Estimated Blood Loss: EBL {In ML}: 500 Blood Products Given: PRBC, FFP Drains Used: [place] Post-Op Condition: Fair Date of Surgery/Procedure: 04/12/17 Time of Surgery/Procedure: 08:30
[2017-04-12 14:04] LABS: ABG MECHANICAL RATE 10; ARTERIAL BLOOD GAS MODE PRVC; DRAW SITE A LINE
[2017-04-12] MEDS ORDERED: Propofol 10 mg/ml Inj (100 ml) IV SCH (14:15)
[2017-04-12 14:41] LABS: BASO % 0.2 % (0.0-2.0); EOS % 0.1 % (0.0-4.0); HEMATOCRIT 33.2 % (34.0-47.0); LYMPH # 1.3 K/uL (1.0-4.3); LYMPH % 8.9 % (20.0-40.0); MEAN CELL VOLUME 82.6 fL (81.0-99.0); MEAN CORPUSCULAR HGB CONC 33.9 g/dL (33.0-37.0); MEAN PLATELET VOLUME 7.3 fL (7.2-11.7); MONO # 0.6 K/uL (0.0-0.8); RED CELL DISTRIBUTION WIDTH 14.9 % (11.5-14.5); WHITE BLOOD COUNT 14.1 K/uL (4.8-10.8)
[2017-04-12 14:46] LABS: PLATELET COUNT 237 K/uL (130-400)
[2017-04-12 14:49] LABS: INR 1.1
[2017-04-12 14:50] LABS: CHLORIDE 103 mmol/L (98-107); POTASSIUM 4.5 mmol/L (3.6-5.2); SODIUM 132 mmol/L (132-148)
[2017-04-12 14:52] LABS: GFR AFRICAN-AMERICAN > 60
[2017-04-12] MEDS ORDERED: Propofol 10 mg/ml 1,000 MG/100 ML VIAL IV PRN (14:52)
[2017-04-12 14:53] LABS: ALB/GLOB RATIO 0.7 (1.0-2.1); ALKALINE PHOSPHATASE 105 U/L (38-126); ALT/SGPT 29 U/L (9-52); AST/SGOT 18 U/L (14-36); BILIRUBIN,TOTAL 1.2 mg/dL (0.2-1.3); BLOOD UREA NITROGEN 19 mg/dL (7-17); CALCIUM 8.7 mg/dl (8.6-10.4); CARBON DIOXIDE 19 mmol/L (22-30); GLUCOSE,RANDOM 258 mg/dL (65-105); TOTAL PROTEIN 6.3 g/dL (6.3-8.3)
[2017-04-12 15:41] LABS: NEUTROPHIL 71 % (50-75); TOTAL CELLS COUNTED 100
[2017-04-12 16:51] LABS: ABG MECHANICAL RATE 10; ARTERIAL BLOOD GAS MODE A/C; DRAW SITE A LINE
--- NOTE | 2017-04-12 17:50 | CP.PCM.PN ---
Subjective - Date & Time of Evaluation Date of Evaluation: 04/12/17 Time of Evaluation: 08:00 - Subjective Subjective: s/p exploratory laparotomy, small bowel resection x2, bladder repair, appendectomy, ileostomy Objective - Vital Signs/Intake and Output Vital Signs (last 24 hours): Temp Pulse Resp BP Pulse Ox 97.5 F L 119 H 17 133/83 100 04/12/17 17:00 04/12/17 17:00 04/12/17 17:00 04/12/17 17:00 04/12/17 17:00 Intake and Output: 04/12/17 04/12/17 06:59 18:59 Intake Total 1314 1125 Output Total 1000 100 Balance 314 1025 - Medications Medications: Current Medications Acetaminophen (Tylenol 325mg Tab) 650 mg PO Q4 PRN PRN Reason: Fever >100.4 F Ascorbic Acid (Vitamin C 500 Mg Tab) 500 mg PO DAILY [facility] Last Admin: 04/12/17 09:04 Dose: Not Given Imipenem/Cilastatin Sodium 500 (mg/ Sodium Chloride) 100 mls @ 100 mls/hr IVPB Q6H [facility] Last Admin: 04/12/17 09:04 Dose: Not Given Amino Acids (Clinimix 4.25/5 % "E" (1000 Ml)) 1,000 mls @ 83 mls/hr IV .Q12H3M [facility] Stop: 04/12/17 17:59 Last Admin: 04/12/17 07:52 Dose: Not Given Multivitamins/Vitamin C 10 ml/ (Amino Acids) 1,010 mls @ 83 mls/hr IV .[id number] [facility] Stop: 04/13/17 06:10 Amino Acids (Clinimix 4.25/5 % "E" (1000 Ml)) 1,000 mls @ 83 mls/hr IV .Q12H3M [facility] Stop: 04/13/17 17:59 BUPIVACAINE 0.125%/0.9% NACL (Bupivacaine-Ns 0.125% On-Q Stitch Welder) 600 mls @ 6 mls/ hr IJ ONCE ONE Stop: 04/16/17 18:44 Last Admin: 04/12/17 14:45 Dose: 0 mls Propofol (Diprivan) 1,000 mg in 100 mls @ 1.361 mls/hr IV .Q24H PRN; Protocol; 5 MCG/KG/MIN PRN Reason: TITRATE PER MD ORDER Last Admin: 04/12/17 15:40 Dose: 0 mls Insulin Aspart (Novolog) 0 unit SC ACHS [facility] PRN Reason: Protocol Last Admin: 04/12/17 11:35 Dose: Not Given Lactobacillus Acidophilus (Bacid Acidophilus) 1 cap PO DAILY [facility] Last Admin: 04/12/17 09:03 Dose: Not Given Magnesium Oxide (Mag-Ox) 400 mg PO DAILY [facility] Last Admin: 04/12/17 09:04 Dose: Not Given Ondansetron HCl (Zofran Inj) 4 mg IVP Q4 PRN PRN Reason: Nausea/Vomiting Pantoprazole Sodium (Protonix Ec Tab) 40 mg PO DAILY [facility] Last Admin: 04/12/17 09:04 Dose: Not Given Zinc Sulfate (Zinc Sulfate 220 Mg Cap) 220 mg PO DAILY [facility] Last Admin: 04/12/17 09:04 Dose: Not Given - Labs Labs: 04/12/17 14:37 04/12/17 14:37 PT 12.0 SECONDS (9.7-12.2) 04/12/17 14:37 INR 1.1 04/12/17 14:37 APTT 29 SECONDS (21-34) 04/12/17 14:37 - Constitutional Appears: Non-toxic - Head Exam Head Exam: NORMOCEPHALIC - Eye Exam Eye Exam: PERRL - ENT Exam ENT Exam: Mucous Membranes Dry - Neck Exam Neck Exam: absent: Lymphadenopathy - Respiratory Exam Respiratory Exam: Decreased Breath Sounds - Cardiovascular Exam Cardiovascular Exam: REGULAR RHYTHM, +S1, +S2 - GI/Abdominal Exam GI & Abdominal Exam: Distended, Soft - Rectal Exam Rectal Exam: Deferred Assessment and Plan (1) Colonic fistula Status: Acute (2) Displacement of Mckeon catheter Status: Acute - Assessment and Plan (Free Text) Assessment: s/p exploratory laparotomy, small bowel resection x2, bladder repair, appendectomy, ileostomy cont iv antibiotics/ wound care
[2017-04-12] MEDS ORDERED: PPN #11 IV SCH (18:00)
--- NOTE | 2017-04-12 18:18 | CP.PCM.CON ---
<Handy Doran E - Last Filed: 04/12/17 20:26> History of Present Illness - History of Present Illness History of Present Illness: ICU consult note HPI: 61 year old female who presented from long term with persistent abdominal pain for 15 days, who had surgery at [facility] [place] ~4months ago ( as per chart cystectomy and B/L nephrostomy tubes placed) and states she hasn't had any issues in the long term until recently. ICU consult was placed s/p exploratory laparotomy, small bowel resection x2, bladder repair, appendectomy, ileostomy for hypotension and icu close monitoring. As per surgical garment fitter, patient received 2 units of FFPs, 1 unit of PRBC. NS bolus of 500 ml given phenylphrine drip was started and intubation was initiated PACU. Patient is currently extubated and nasal cannula. Review of Systems - Review of Systems Review of Systems: Unable able to evaluate as patient was very agitated. Past Patient History - Past Social History Smoking Status: Never Smoked - ENDOCRINE/METABOLIC Hx Hyperthyroidism: Yes - MUSCULOSKELETAL/RHEUMATOLOGICAL Hx Falls: No - GASTROINTESTINAL Hx Colitis: Yes Hx Gastroesophageal Reflux: Yes - GENITOURINARY/GYNECOLOGICAL Hx Urinary Tract Infection: Yes - PSYCHIATRIC Hx Substance Use: No - SURGICAL HISTORY Hx Surgeries: Yes Other/Comment: Nephrostomy insertion - ANESTHESIA Hx Anesthesia: Yes Hx Anesthesia Reactions: No Meds Allergies/Adverse Reactions: Allergies Allergy/AdvReac Type Severity Reaction Status Date / Time No Known Allergies Allergy Verified 04/04/17 16:06 - Medications Medications: Current Medications Acetaminophen (Tylenol 325mg Tab) 650 mg PO Q4 PRN PRN Reason: Fever >100.4 F Ascorbic Acid (Vitamin C 500 Mg Tab) 500 mg PO DAILY [facility] Last Admin: 04/12/17 09:04 Dose: Not Given Imipenem/Cilastatin Sodium 500 (mg/ Sodium Chloride) 100 mls @ 100 mls/hr IVPB Q6H [facility] Last Admin: 04/12/17 09:04 Dose: Not Given Multivitamins/Vitamin C 10 ml/ (Amino Acids) 1,010 mls @ 83 mls/hr IV .[id number] [facility] Stop: 04/13/17 06:10 Amino Acids (Clinimix 4.25/5 % "E" (1000 Ml)) 1,000 mls @ 83 mls/hr IV .Q12H3M [facility] Stop: 04/13/17 17:59 BUPIVACAINE 0.125%/0.9% NACL (Bupivacaine-Ns 0.125% On-Q Single End Sewer) 600 mls @ 6 mls/ hr IJ ONCE ONE Stop: 04/16/17 18:44 Last Admin: 04/12/17 14:45 Dose: 28 mls Propofol (Diprivan) 1,000 mg in 100 mls @ 1.361 mls/hr IV .Q24H PRN; Protocol; 5 MCG/KG/MIN PRN Reason: TITRATE PER MD ORDER Last Admin: 04/12/17 15:40 Dose: 20 mls Fentanyl Citrate 2,500 mcg/ (Sodium Chloride) 250 mls @ 9.07 mls/hr IV .Q24H [facility]; 2 MCG/KG/HR PRN Reason: Protocol Insulin Aspart (Novolog) 0 unit SC ACHS [facility] PRN Reason: Protocol Last Admin: 04/12/17 11:35 Dose: Not Given Lactobacillus Acidophilus (Bacid Acidophilus) 1 cap PO DAILY [facility] Last Admin: 04/12/17 09:03 Dose: Not Given Magnesium Oxide (Mag-Ox) 400 mg PO DAILY [facility] Last Admin: 04/12/17 09:04 Dose: Not Given Ondansetron HCl (Zofran Inj) 4 mg IVP Q4 PRN PRN Reason: Nausea/Vomiting Pantoprazole Sodium (Protonix Ec Tab) 40 mg PO DAILY [facility] Last Admin: 04/12/17 09:04 Dose: Not Given Zinc Sulfate (Zinc Sulfate 220 Mg Cap) 220 mg PO DAILY [facility] Last Admin: 04/12/17 09:04 Dose: Not Given Physical Exam - Head Exam Head Exam: ATRAUMATIC - Eye Exam Eye Exam: EOMI - Respiratory Exam Respiratory Exam: Clear to Auscultation Bilateral, NORMAL BREATHING PATTERN - Cardiovascular Exam Cardiovascular Exam: REGULAR RHYTHM, +S1, +S2 - GI/Abdominal Exam GI & Abdominal Exam: Diminished Bowel Sounds, Tenderness Additional comments: s/p exploratory laparotomy, small bowel resection x2, bladder repair, appendectomy, ileostomy - Extremities Exam Extremities exam: Positive for: normal inspection. Negative for: calf tenderness, pedal edema - Neurological Exam Neurological exam: Alert - Psychiatric Exam Psychiatric exam: Agitated Results - Vital Signs Recent Vital Signs: Last Vital Signs Temp 97.5 F L 04/12/17 17:00 Pulse 119 H 04/12/17 17:00 Resp 17 04/12/17 17:00 BP 133/83 04/12/17 17:00 Pulse Ox 100 04/12/17 17:00 - Labs Result Diagrams: 04/12/17 18:20 04/12/17 18:20 Labs: Laboratory Results - last 24 hr 04/11/17 04/11/17 04/12/17 11:20 21:25 06:25 WBC RBC Hgb Hct MCV MCH MCHC RDW Plt Count MPV Neut % (Auto) Lymph % (Auto) [place] % (Auto) Eos % (Auto) Baso % (Auto) Neut # Lymph # [place] # Eos # Baso # Neutrophils % (Manual) Band Neutrophils % Lymphocytes % (Manual) Monocytes % (Manual) Platelet Estimate RBC Morphology PT INR APTT Puncture Site pCO2 pO2 HCO3 ABG pH ABG Total CO2 ABG O2 Saturation ABG Base Excess ABG Hemoglobin ABG Carboxyhemoglobin POC ABG HHb (Measured) ABG Methemoglobin Fran Test ABG Potassium A-a O2 Difference Respiratory Index Hgb O2 Saturation Glucose Lactate Vent Mode Mechanical Rate FiO2 Tidal Volume Crit Value Called To Crit Value Called By Crit Value Read Back Blood Gas Notified Time Sodium Potassium Chloride Carbon Dioxide Anion Gap BUN Creatinine Est GFR ( Amer) Est GFR (Non-Af Amer) POC Glucose (mg/dL) 229 H 227 H Random Glucose Calcium Phosphorus Magnesium Total Bilirubin AST ALT Alkaline Phosphatase Total Protein Albumin Globulin Albumin/Globulin Ratio Arterial Blood Potassium Blood Type B POSITIVE Antibody Screen Negative 04/12/17 04/12/17 04/12/17 07:01 07:01 10:09 WBC 7.6 RBC 3.83 Hgb 10.6 L Hct 31.0 L MCV 81.1 MCH 27.8 MCHC 34.3 RDW 14.9 H Plt Count 313 MPV 7.8 Neut % (Auto) Lymph % (Auto) [place] % (Auto) Eos % (Auto) Baso % (Auto) Neut # Lymph # [place] # Eos # Baso # Neutrophils % (Manual) Band Neutrophils % Lymphocytes % (Manual) Monocytes % (Manual) Platelet Estimate RBC Morphology PT INR APTT Puncture Site Line pCO2 32 L pO2 360 H HCO3 16.0 L ABG pH 7.26 L ABG Total CO2 15.4 L ABG O2 Saturation 99.6 H ABG Base Excess -11.5 L ABG Hemoglobin ABG Carboxyhemoglobin POC ABG HHb (Measured) ABG Methemoglobin Fran Test Na ABG Potassium 4.1 A-a O2 Difference Respiratory Index Hgb O2 Saturation Glucose 208 H Lactate 1.5 Vent Mode Mechanical Rate FiO2 Tidal Volume Crit Value Called To Crit Value Called By Crit Value Read Back Blood Gas Notified Time Sodium 128 L 131.0 L Potassium 4.8 Chloride 105 112.0 H Carbon Dioxide 15 L Anion Gap 13 BUN 25 H Creatinine 0.5 L Est GFR ( Amer) > 60 Est GFR (Non-Af Amer) > 60 POC Glucose (mg/dL) Random Glucose 230 H Calcium 9.3 Phosphorus 3.8 Magnesium 1.6 Total Bilirubin 0.4 AST 18 ALT 26 Alkaline Phosphatase 169 H D Total Protein 7.2 Albumin 2.6 L Globulin 4.6 H Albumin/Globulin Ratio 0.6 L Arterial Blood Potassium 4.1 Blood Type Antibody Screen 04/12/17 04/12/17 04/12/17 10:33 12:07 12:13 WBC 10.2 18.6 H D RBC 3.36 L 4.45 Hgb 9.4 L 12.3 D Hct 27.4 L 36.9 MCV 81.6 83.0 MCH 27.8 27.7 MCHC 34.1 33.5 RDW 14.6 H 15.2 H Plt Count 250 377 D MPV 7.7 8.0 Neut % (Auto) 68.0 Lymph % (Auto) 24.6 [place] % (Auto) 5.5 Eos % (Auto) 1.5 Baso % (Auto) 0.4 Neut # 12.6 H Lymph # 4.6 H [place] # 1.0 H Eos # 0.3 Baso # 0.1 Neutrophils % (Manual) Band Neutrophils % Lymphocytes % (Manual) Monocytes % (Manual) Platelet Estimate RBC Morphology PT INR APTT Puncture Site Line pCO2 39 pO2 583 H HCO3 15.1 L ABG pH 7.19 L* ABG Total CO2 16.1 L ABG O2 Saturation 99.6 H ABG Base Excess -12.6 L ABG Hemoglobin 13.6 ABG Carboxyhemoglobin 1.1 POC ABG HHb (Measured) 0.4 ABG Methemoglobin 0.7 Fran Test Na ABG Potassium A-a O2 Difference Respiratory Index Hgb O2 Saturation 97.8 Glucose Lactate Vent Mode Mechanical Rate FiO2 Tidal Volume Crit Value Called To Dr josef paige Crit Value Called By Tania woodruff engineer booster and exhauster Crit Value Read Back Y Blood Gas Notified Time 1215 Sodium Potassium Chloride Carbon Dioxide Anion Gap BUN Creatinine Est GFR ( Amer) Est GFR (Non-Af Amer) POC Glucose (mg/dL) Random Glucose Calcium Phosphorus Magnesium Total Bilirubin AST ALT Alkaline Phosphatase Total Protein Albumin Globulin Albumin/Globulin Ratio Arterial Blood Potassium Blood Type Antibody Screen 04/12/17 04/12/17 04/12/17 14:01 14:37 14:37 WBC 14.1 H RBC 4.02 Hgb 11.3 Hct 33.2 L MCV 82.6 MCH 28.0 MCHC 33.9 RDW 14.9 H Plt Count 237 D MPV 7.3 Neut % (Auto) 86.8 H Lymph % (Auto) 8.9 L [place] % (Auto) 4.0 Eos % (Auto) 0.1 Baso % (Auto) 0.2 Neut # 12.2 H Lymph # 1.3 [place] # 0.6 Eos # 0.0 Baso # 0.0 Neutrophils % (Manual) 71 Band Neutrophils % 18 H* Lymphocytes % (Manual) 9 L Monocytes % (Manual) 2 Platelet Estimate Normal RBC Morphology Normal PT 12.0 INR 1.1 APTT 29 Puncture Site A line pCO2 44 pO2 474 H HCO3 17.2 L ABG pH 7.21 L ABG Total CO2 19.0 L ABG O2 Saturation 99.8 H ABG Base Excess -10.0 L ABG Hemoglobin ABG Carboxyhemoglobin POC ABG HHb (Measured) ABG Methemoglobin Fran Test Na ABG Potassium 3.9 A-a O2 Difference 184.0 Respiratory Index 0.4 Hgb O2 Saturation Glucose 273 H Lactate 0.9 Vent Mode Prvc Mechanical Rate 10 FiO2 100.0 Tidal Volume 400 Crit Value Called To Crit Value Called By Crit Value Read Back Blood Gas Notified Time Sodium 132.0 Potassium Chloride 110.0 H Carbon Dioxide Anion Gap BUN Creatinine Est GFR ( Amer) Est GFR (Non-Af Amer) POC Glucose (mg/dL) Random Glucose Calcium Phosphorus Magnesium Total Bilirubin AST ALT Alkaline Phosphatase Total Protein Albumin Globulin Albumin/Globulin Ratio Arterial Blood Potassium 3.9 Blood Type Antibody Screen 04/12/17 04/12/17 14:37 16:45 WBC RBC Hgb Hct MCV MCH MCHC RDW Plt Count MPV Neut % (Auto) Lymph % (Auto) [place] % (Auto) Eos % (Auto) Baso % (Auto) Neut # Lymph # [place] # Eos # Baso # Neutrophils % (Manual) Band Neutrophils % Lymphocytes % (Manual) Monocytes % (Manual) Platelet Estimate RBC Morphology PT INR APTT Puncture Site A line pCO2 28 L pO2 499 H HCO3 20.2 L ABG pH 7.40 ABG Total CO2 18.2 L ABG O2 Saturation 99.2 H ABG Base Excess -6.1 L ABG Hemoglobin ABG Carboxyhemoglobin POC ABG HHb (Measured) ABG Methemoglobin Fran Test Na ABG Potassium 4.0 A-a O2 Difference 179.0 Respiratory Index 0.4 Hgb O2 Saturation Glucose 283 H Lactate 1.0 Vent Mode A/c Mechanical Rate 10 FiO2 100.0 Tidal Volume 400 Crit Value Called To Crit Value Called By Crit Value Read Back Blood Gas Notified Time Sodium 132 132.0 Potassium 4.5 Chloride 103 110.0 H Carbon Dioxide 19 L Anion Gap 15 BUN 19 H Creatinine 0.4 L Est GFR ( Amer) > 60 Est GFR (Non-Af Amer) > 60 POC Glucose (mg/dL) Random Glucose 258 H Calcium 8.7 Phosphorus Magnesium Total Bilirubin 1.2 AST 18 ALT 29 Alkaline Phosphatase 105 Total Protein 6.3 Albumin 2.5 L Globulin 3.8 Albumin/Globulin Ratio 0.7 L Arterial Blood Potassium 4.0 Blood Type Antibody Screen Assessment & Plan - Assessment and Plan (Free Text) Assessment: 61 year old female who presented from long term with persistent abdominal pain for 15 days, s/p exploratory laparotomy, small bowel resection x2, bladder repair, appendectomy, ileostomy 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 Patient was noted to be hypotensive in the PACU and NS bolus of 500 ml given phenylphrine drip was started and intubation was initiated. Plan: Neuro: Alert, awake, agitated Cardio: No acute issues Pulm: Extubated, on Nasal Cannula GI: colovesicula fistula and foreign body s/p exploratory laparotomy, small bowel resection x2, bladder repair, appendectomy, ileostomy POD#0 Medication: * Fentanyl 2,500mcg IV 2mg/hg/hr for pain control * Tylenol 650mg PO Q4 PRN Endo: Accuchecks ISS low dose protocol Prophylaxis: DVT: SCDs GI: Protonix 40mg PO daily Bacid acidophilus PPN Vitamin C 500mg PO daily Magnesium 400mg PO daily Zofran 4mg IV Q4 PRN Zinc 220mg PO daily <Aren Castrejon - Last Filed: 04/16/17 08:22> Meds - Medications Medications: Current Medications Acetaminophen (Tylenol 325mg Tab) 650 mg PO Q4 PRN PRN Reason: Fever >100.4 F Ascorbic Acid (Vitamin C 500 Mg Tab) 500 mg PO DAILY [facility] Last Admin: 04/15/17 09:44 Dose: 500 mg Heparin Sodium (Porcine) (Heparin) 5,000 units SC Q12 [facility] Last Admin: 04/15/17 22:00 Dose: 5,000 units Sodium Chloride (Sodium Chloride 0.9%) 1,000 mls @ 75 mls/hr IV .[id number] [facility] Last Admin: 04/16/17 05:27 Dose: 75 mls/hr Tigecycline 50 mg/ Sodium (Chloride) 100 mls @ 100 mls/hr IVPB Q12H [facility] Last Admin: 04/16/17 05:28 Dose: 100 mls/hr BUPIVACAINE 0.125%/0.9% NACL (Bupivacaine-Ns 0.125% On-Q Single End Sewer) 600 mls @ 4 mls/ hr IJ ONCE ONE Stop: 04/21/17 16:56 Last Admin: 04/15/17 20:00 Dose: 4 mls/hr Insulin Aspart (Novolog) 0 unit SC ACHS [facility] PRN Reason: Protocol Last Admin: 04/15/17 21:38 Dose: Not Given Lactobacillus Acidophilus (Bacid Acidophilus) 1 cap PO DAILY [facility] Last Admin: 04/15/17 09:46 Dose: 1 cap Magnesium Oxide (Mag-Ox) 400 mg PO DAILY [facility] Last Admin: 04/15/17 09:44 Dose: 400 mg Morphine Sulfate (Morphine) 4 mg IVP Q4 PRN PRN Reason: Pain, severe (8-10) Ondansetron HCl (Zofran Inj) 4 mg IVP Q4 PRN PRN Reason: Nausea/Vomiting Last Admin: 04/15/17 17:55 Dose: 4 mg Oxycodone/Acetaminophen (Percocet 5/325 Mg Tab) 1 tab PO Q4H PRN PRN Reason: Pain, moderate (4-7) Stop: 04/19/17 07:50 Pantoprazole Sodium (Protonix Inj) 40 mg IVP DAILY [facility] Last Admin: 04/15/17 09:46 Dose: 40 mg Zinc Sulfate (Zinc Sulfate 220 Mg Cap) 220 mg PO DAILY [facility] Last Admin: 04/15/17 09:44 Dose: 220 mg Results - Vital Signs Recent Vital Signs: Last Vital Signs Temp 98.6 F 04/16/17 04:00 Pulse 93 H 04/16/17 07:40 Resp 17 04/16/17 07:40 BP 127/73 04/16/17 07:40 Pulse Ox 100 04/16/17 07:40 - Labs Result Diagrams: 04/16/17 06:29 04/16/17 06:29 Labs: Laboratory Results - last 24 hr 04/15/17 04/15/17 04/15/17 08:41 11:12 16:40 WBC RBC Hgb Hct MCV MCH MCHC RDW Plt Count MPV Neut % (Auto) Lymph % (Auto) [place] % (Auto) Eos % (Auto) Baso % (Auto) Neut # Lymph # [place] # Eos # Baso # Sodium Potassium Chloride Carbon Dioxide Anion Gap BUN Creatinine Est GFR ( Amer) Est GFR (Non-Af Amer) POC Glucose (mg/dL) 164 H 166 H 221 H Random Glucose Calcium Phosphorus Magnesium Total Bilirubin AST ALT Alkaline Phosphatase Total Protein Albumin Globulin Albumin/Globulin Ratio 04/15/17 04/16/17 04/16/17 21:30 06:29 06:29 WBC 16.1 H RBC 3.47 L Hgb 9.8 L Hct 28.8 L MCV 83.0 MCH 28.2 MCHC 34.0 RDW 15.2 H Plt Count 385 MPV 8.0 Neut % (Auto) 78.9 H Lymph % (Auto) 12.7 L [place] % (Auto) 7.4 Eos % (Auto) 0.7 Baso % (Auto) 0.3 Neut # 12.7 H Lymph # 2.0 [place] # 1.2 H Eos # 0.1 Baso # 0.0 Sodium 130 L Potassium 3.7 Chloride 101 Carbon Dioxide 22 Anion Gap 12 BUN 20 H Creatinine 0.5 L Est GFR ( Amer) > 60 Est GFR (Non-Af Amer) > 60 POC Glucose (mg/dL) 179 H Random Glucose 119 H Calcium 8.2 L Phosphorus 3.5 Magnesium 1.4 L Total Bilirubin 0.5 AST 18 ALT 26 Alkaline Phosphatase 99 Total Protein 5.7 L Albumin 2.1 L Globulin 3.6 Albumin/Globulin Ratio 0.6 L Attending/Attestation - Attestation I have personally seen and examined this patient.: Yes I have fully participated in the care of the patient.: Yes I have reviewed all pertinent clinical information: Yes Notes (Text): 04/12/17 The Patient was seen and examined at the bedside, Medical records reviewed, and management issues were discussed and formulated with the house staff. I have reviewed all the relevant clinical, laboratory, hemodynamic, radiographic data and medications Events reviewed Pain issues, skin care, head of the bed elevation, glycemic control were addressed. I concur with resident's assessment and plan of care as transcribed in Dr. Doran note.
--- NOTE | 2017-04-12 18:20 | RAD ---
HISTORY: s/p R IJ TLC COMPARISON: None FINDINGS: Right IJV line terminates in the right atrium. The endotracheal tube terminates 2.5 cm proximal to the carlton. LUNGS: The lungs are well inflated and clear. PLEURA: No significant pleural effusion identified, no pneumothorax apparent. CARDIOVASCULAR: Normal. OSSEOUS STRUCTURES: No significant abnormalities. VISUALIZED UPPER ABDOMEN: Normal. OTHER FINDINGS: There is a right nephrostomy tube overlying the right flank. IMPRESSION: 1. Right IJV line terminates in the right atrium. 2. Endotracheal tube terminates 2.5 cm proximal to the carlton. 3. No acute findings.
[2017-04-12 18:27] LABS: BASO % 0.1 % (0.0-2.0); EOS % 0.1 % (0.0-4.0); HEMATOCRIT 27.9 % (34.0-47.0); LYMPH # 0.9 K/uL (1.0-4.3); LYMPH % 6.9 % (20.0-40.0); MEAN CELL VOLUME 82.2 fL (81.0-99.0); MEAN CORPUSCULAR HEMOGLOBIN 28.1 pg (27.0-31.0); MEAN CORPUSCULAR HGB CONC 34.2 g/dL (33.0-37.0); MEAN PLATELET VOLUME 7.6 fL (7.2-11.7); MONO # 0.7 K/uL (0.0-0.8); MONO % 5.1 % (0.0-10.0); RED CELL DISTRIBUTION WIDTH 14.6 % (11.5-14.5); WHITE BLOOD COUNT 13.1 K/uL (4.8-10.8)
[2017-04-12 18:36] LABS: CHLORIDE 103 mmol/L (98-107); POTASSIUM 3.9 mmol/L (3.6-5.2); SODIUM 128 mmol/L (132-148)
[2017-04-12 18:38] LABS: ALB/GLOB RATIO 0.7 (1.0-2.1); AST/SGOT 18 U/L (14-36); BILIRUBIN,TOTAL 1.5 mg/dL (0.2-1.3); CARBON DIOXIDE 16 mmol/L (22-30); GFR AFRICAN-AMERICAN > 60
[2017-04-12 18:39] LABS: ALKALINE PHOSPHATASE 78 U/L (38-126); ALT/SGPT 27 U/L (9-52); BLOOD UREA NITROGEN 18 mg/dL (7-17); CALCIUM 7.8 mg/dl (8.6-10.4); GLUCOSE,RANDOM 228 mg/dL (65-105); PHOSPHOROUS 3.4 mg/dL (2.5-4.5)
[2017-04-12] MEDS: Magnesium Sulfate 1 gm in D5W 1 GM/100 ML BAG IVPB SCH ×2 (19:21→20:34)
--- NOTE | 2017-04-12 20:04 | CP.PCM.PN ---
Subjective - Date & Time of Evaluation Date of Evaluation: 04/12/17 Time of Evaluation: 13:40 - Subjective Subjective: clinically same Objective - Vital Signs/Intake and Output Vital Signs (last 24 hours): Temp Pulse Resp BP Pulse Ox 97.5 F L 119 H 17 133/83 100 04/12/17 17:00 04/12/17 17:00 04/12/17 17:00 04/12/17 17:00 04/12/17 17:00 Intake and Output: 04/12/17 04/13/17 18:59 06:59 Intake Total 1153 Output Total 100 Balance 1053 - Medications Medications: Current Medications Acetaminophen (Tylenol 325mg Tab) 650 mg PO Q4 PRN PRN Reason: Fever >100.4 F Ascorbic Acid (Vitamin C 500 Mg Tab) 500 mg PO DAILY [facility] Last Admin: 04/12/17 09:04 Dose: Not Given Imipenem/Cilastatin Sodium 500 (mg/ Sodium Chloride) 100 mls @ 100 mls/hr IVPB Q6H [facility] Last Admin: 04/12/17 09:04 Dose: Not Given Multivitamins/Vitamin C 10 ml/ (Amino Acids) 1,010 mls @ 83 mls/hr IV .[id number] [facility] Stop: 04/13/17 06:10 Last Admin: 04/12/17 20:03 Dose: 83 mls/hr Amino Acids (Clinimix 4.25/5 % "E" (1000 Ml)) 1,000 mls @ 83 mls/hr IV .Q12H3M [facility] Stop: 04/13/17 17:59 BUPIVACAINE 0.125%/0.9% NACL (Bupivacaine-Ns 0.125% On-Q Saw Cleaner) 600 mls @ 6 mls/ hr IJ ONCE ONE Stop: 04/16/17 18:44 Last Admin: 04/12/17 14:45 Dose: 28 mls Propofol (Diprivan) 1,000 mg in 100 mls @ 1.361 mls/hr IV .Q24H PRN; Protocol; 5 MCG/KG/MIN PRN Reason: TITRATE PER MD ORDER Last Titration: 04/12/17 17:25 Dose: 0 mcg/kg/min, 0 mls/hr Fentanyl Citrate 2,500 mcg/ (Sodium Chloride) 250 mls @ 9.07 mls/hr IV .Q24H [facility]; 2 MCG/KG/HR PRN Reason: Protocol Magnesium Sulfate/Dextrose (Magnesium Sulfate 1 Gm/100 Ml D5w) 1 gm in 100 mls @ 200 mls/hr IVPB Q30M [facility] Stop: 04/12/17 20:29 Last Admin: 04/12/17 19:21 Dose: 200 mls/hr Insulin Aspart (Novolog) 0 unit SC ACHS [facility] PRN Reason: Protocol Last Admin: 04/12/17 11:35 Dose: Not Given Lactobacillus Acidophilus (Bacid Acidophilus) 1 cap PO DAILY [facility] Last Admin: 04/12/17 09:03 Dose: Not Given Magnesium Oxide (Mag-Ox) 400 mg PO DAILY [facility] Last Admin: 04/12/17 09:04 Dose: Not Given Ondansetron HCl (Zofran Inj) 4 mg IVP Q4 PRN PRN Reason: Nausea/Vomiting Pantoprazole Sodium (Protonix Ec Tab) 40 mg PO DAILY [facility] Last Admin: 04/12/17 09:04 Dose: Not Given Zinc Sulfate (Zinc Sulfate 220 Mg Cap) 220 mg PO DAILY [facility] Last Admin: 04/12/17 09:04 Dose: Not Given - Labs Labs: 04/12/17 18:20 04/12/17 18:20 PT 12.0 SECONDS (9.7-12.2) 04/12/17 14:37 INR 1.1 04/12/17 14:37 APTT 29 SECONDS (21-34) 04/12/17 14:37 - Constitutional Appears: Well - Head Exam Head Exam: ATRAUMATIC, NORMAL INSPECTION, NORMOCEPHALIC - Eye Exam Eye Exam: EOMI, Normal appearance, PERRL Pupil Exam: NORMAL ACCOMODATION, PERRL - ENT Exam ENT Exam: Mucous Membranes Moist, Normal Exam - Neck Exam Neck Exam: Full ROM, Normal Inspection. absent: Lymphadenopathy - Respiratory Exam Respiratory Exam: Decreased Breath Sounds - Cardiovascular Exam Cardiovascular Exam: REGULAR RHYTHM, +S1, +S2 - GI/Abdominal Exam GI & Abdominal Exam: Soft, Diminished Bowel Sounds - Rectal Exam Rectal Exam: Deferred - Back Exam Back Exam: NORMAL INSPECTION - Neurological Exam Neurological Exam: Alert, Awake, CN II-XII Intact, Normal Gait, Oriented x3 - Psychiatric Exam Psychiatric exam: Normal Affect, Normal Mood - Skin Skin Exam: Dry, Intact, Normal Color, Warm Assessment and Plan (1) Colonic fistula Status: Acute (2) Displacement of Mckeon catheter Status: Acute - Assessment and Plan (Free Text) Plan: Patient examined. Continue to have mild abdominal pain. Continue planning and cilastatin. Pain management with. Insulin. And supportive care.
[2017-04-12] MEDS ORDERED: DiphenhydrAMINE 50 mg/ml Inj IVP ONE ×3 (21:00→23:15)
[2017-04-13] MEDS ORDERED: PPN #12 IV SCH (06:11)
[2017-04-13 06:37] LABS: BASO % 0.1 % (0.0-2.0); HEMATOCRIT 34.2 % (34.0-47.0); LYMPH # 1.5 K/uL (1.0-4.3); LYMPH % 7.9 % (20.0-40.0); MEAN CELL VOLUME 82.1 fL (81.0-99.0); MEAN CORPUSCULAR HEMOGLOBIN 27.8 pg (27.0-31.0); MEAN CORPUSCULAR HGB CONC 33.9 g/dL (33.0-37.0); MEAN PLATELET VOLUME 8.6 fL (7.2-11.7); MONO # 0.7 K/uL (0.0-0.8); MONO % 3.9 % (0.0-10.0); PLATELET COUNT 330 K/uL (130-400); RED CELL DISTRIBUTION WIDTH 14.9 % (11.5-14.5); WHITE BLOOD COUNT 18.4 K/uL (4.8-10.8)
[2017-04-13 06:49] LABS: INR 1.1
[2017-04-13 06:52] LABS: CHLORIDE 99 mmol/L (98-107); POTASSIUM 4.2 mmol/L (3.6-5.2); SODIUM 127 mmol/L (132-148)
[2017-04-13 06:54] LABS: GFR AFRICAN-AMERICAN > 60
[2017-04-13 06:55] LABS: ALB/GLOB RATIO 0.6 (1.0-2.1); ALKALINE PHOSPHATASE 86 U/L (38-126); ALT/SGPT 29 U/L (9-52); AST/SGOT 26 U/L (14-36); BILIRUBIN,TOTAL 0.9 mg/dL (0.2-1.3); BLOOD UREA NITROGEN 18 mg/dL (7-17); CARBON DIOXIDE 20 mmol/L (22-30); GLUCOSE,RANDOM 276 mg/dL (65-105); PHOSPHOROUS 3.1 mg/dL (2.5-4.5); TOTAL PROTEIN 6.1 g/dL (6.3-8.3)
[2017-04-13 06:56] LABS: CALCIUM 8.7 mg/dl (8.6-10.4); MAGNESIUM 1.8 mg/dL (1.6-2.3)
[2017-04-13] MEDS: (Novolog) Insulin Aspart, Recombinant 100 u/ml 10 ml vial SC SCH ×4 (08:32→22:00)
[2017-04-13 08:54] LABS: NEUTROPHIL 62 % (50-75); TOTAL CELLS COUNTED 100
--- NOTE | 2017-04-13 09:51 | CP.PCM.PN ---
Subjective - Date & Time of Evaluation Date of Evaluation: 04/13/17 Time of Evaluation: 14:00 - Subjective Subjective: clinically same Objective - Vital Signs/Intake and Output Vital Signs (last 24 hours): Temp Pulse Resp BP Pulse Ox 97.1 F L 134 H 28 H 122/72 100 04/13/17 02:00 04/13/17 06:10 04/13/17 06:10 04/13/17 06:05 04/13/17 06:10 Intake and Output: 04/13/17 04/13/17 06:59 18:59 Intake Total 1313 Output Total 1950 Balance -637 - Medications Medications: Current Medications Acetaminophen (Tylenol 325mg Tab) 650 mg PO Q4 PRN PRN Reason: Fever >100.4 F Ascorbic Acid (Vitamin C 500 Mg Tab) 500 mg PO DAILY [facility] Last Admin: 04/12/17 09:04 Dose: Not Given Imipenem/Cilastatin Sodium 500 (mg/ Sodium Chloride) 100 mls @ 100 mls/hr IVPB Q6H [facility] Last Admin: 04/13/17 03:51 Dose: 100 mls/hr Amino Acids (Clinimix 4.25/5 % "E" (1000 Ml)) 1,000 mls @ 83 mls/hr IV .Q12H3M [facility] Stop: 04/13/17 17:59 Last Admin: 04/13/17 06:18 Dose: 83 mls/hr BUPIVACAINE 0.125%/0.9% NACL (Bupivacaine-Ns 0.125% On-Q [employer] Service Advisor) 600 mls @ 6 mls/ hr IJ ONCE ONE Stop: 04/16/17 18:44 Last Admin: 04/12/17 14:45 Dose: 28 mls Insulin Aspart (Novolog) 0 unit SC ACHS [facility] PRN Reason: Protocol Last Admin: 04/13/17 08:32 Dose: 3 unit Lactobacillus Acidophilus (Bacid Acidophilus) 1 cap PO DAILY [facility] Last Admin: 04/12/17 09:03 Dose: Not Given Magnesium Oxide (Mag-Ox) 400 mg PO DAILY [facility] Last Admin: 04/12/17 09:04 Dose: Not Given Ondansetron HCl (Zofran Inj) 4 mg IVP Q4 PRN PRN Reason: Nausea/Vomiting Last Admin: 04/13/17 08:32 Dose: 4 mg Pantoprazole Sodium (Protonix Ec Tab) 40 mg PO DAILY [facility] Last Admin: 04/12/17 09:04 Dose: Not Given Zinc Sulfate (Zinc Sulfate 220 Mg Cap) 220 mg PO DAILY [facility] Last Admin: 04/12/17 09:04 Dose: Not Given - Labs Labs: 04/13/17 06:33 04/13/17 06:28 PT 11.9 SECONDS (9.7-12.2) 04/13/17 06:28 INR 1.1 04/13/17 06:28 APTT 27 SECONDS (21-34) 04/13/17 06:28 - Constitutional Appears: Well - Head Exam Head Exam: ATRAUMATIC, NORMAL INSPECTION, NORMOCEPHALIC - Eye Exam Eye Exam: EOMI, Normal appearance, PERRL Pupil Exam: NORMAL ACCOMODATION, PERRL - ENT Exam ENT Exam: Mucous Membranes Moist, Normal Exam - Neck Exam Neck Exam: Full ROM, Normal Inspection. absent: Lymphadenopathy - Respiratory Exam Respiratory Exam: Decreased Breath Sounds - Cardiovascular Exam Cardiovascular Exam: REGULAR RHYTHM, +S1, +S2 - GI/Abdominal Exam GI & Abdominal Exam: Soft, Diminished Bowel Sounds - Rectal Exam Rectal Exam: Deferred - Back Exam Back Exam: NORMAL INSPECTION - Neurological Exam Neurological Exam: Alert, Awake, CN II-XII Intact, Normal Gait, Oriented x3 - Psychiatric Exam Psychiatric exam: Normal Affect, Normal Mood - Skin Skin Exam: Dry, Intact, Normal Color, Warm Assessment and Plan (1) Colonic fistula Status: Acute (2) Displacement of Mckeon catheter Status: Acute - Assessment and Plan (Free Text) Plan: Exploratory laparotomy with small bowel resection with appendicectomy and ileostomy done on april.
[2017-04-13] MEDS: Pantoprazole 40 mg EC Tab PO SCH (10:02)
[2017-04-13] MEDS: Magnesium Oxide 400 mg Tab UD PO SCH (10:02)
[2017-04-13] MEDS: Lactobacillus Acidophilus 500 MU Cap PO SCH (10:02)
--- NOTE | 2017-04-13 11:18 | CP.PCM.PN ---
<DeoZari - Last Filed: 04/13/17 12:57> Subjective - Date & Time of Evaluation Date of Evaluation: 04/13/17 Time of Evaluation: 11:00 - Subjective Subjective: General Surgery Dr. Cabral Pt S&E @bedside. NAEO. pt extubated, off pressors. c/o nausea, hunger, abd pain. no ostomy output. pt has not been OOB per nurse. Objective - Vital Signs/Intake and Output Vital Signs (last 24 hours): Temp Pulse Resp BP Pulse Ox 99.4 F 134 H 29 H 156/85 H 100 04/13/17 08:00 04/13/17 10:06 04/13/17 10:06 04/13/17 10:06 04/13/17 10:06 Intake and Output: 04/13/17 04/13/17 06:59 18:59 Intake Total 1313 515 Output Total 1950 300 Balance -637 215 - Medications Medications: Current Medications Acetaminophen (Tylenol 325mg Tab) 650 mg PO Q4 PRN PRN Reason: Fever >100.4 F Ascorbic Acid (Vitamin C 500 Mg Tab) 500 mg PO DAILY [facility] Last Admin: 04/13/17 10:02 Dose: Not Given Imipenem/Cilastatin Sodium 500 (mg/ Sodium Chloride) 100 mls @ 100 mls/hr IVPB Q6H [facility] Last Admin: 04/13/17 10:06 Dose: 100 mls/hr Amino Acids (Clinimix 4.25/5 % "E" (1000 Ml)) 1,000 mls @ 83 mls/hr IV .Q12H3M [facility] Stop: 04/13/17 17:59 Last Admin: 04/13/17 06:18 Dose: 83 mls/hr BUPIVACAINE 0.125%/0.9% NACL (Bupivacaine-Ns 0.125% On-Q [employer]er) 600 mls @ 6 mls/ hr IJ ONCE ONE Stop: 04/16/17 18:44 Last Admin: 04/12/17 14:45 Dose: 28 mls Insulin Aspart (Novolog) 0 unit SC ACHS [facility] PRN Reason: Protocol Last Admin: 04/13/17 08:32 Dose: 3 unit Lactobacillus Acidophilus (Bacid Acidophilus) 1 cap PO DAILY [facility] Last Admin: 04/13/17 10:02 Dose: Not Given Magnesium Oxide (Mag-Ox) 400 mg PO DAILY [facility] Last Admin: 04/13/17 10:02 Dose: Not Given Morphine Sulfate (Morphine) 4 mg IVP Q4 PRN PRN Reason: Pain, moderate (4-7) Ondansetron HCl (Zofran Inj) 4 mg IVP Q4 PRN PRN Reason: Nausea/Vomiting Last Admin: 04/13/17 08:32 Dose: 4 mg Pantoprazole Sodium (Protonix Ec Tab) 40 mg PO DAILY [facility] Last Admin: 04/13/17 10:02 Dose: Not Given Zinc Sulfate (Zinc Sulfate 220 Mg Cap) 220 mg PO DAILY [facility] Last Admin: 04/13/17 10:02 Dose: Not Given - Labs Labs: 04/13/17 06:33 04/13/17 06:28 PT 11.9 SECONDS (9.7-12.2) 04/13/17 06:28 INR 1.1 04/13/17 06:28 APTT 27 SECONDS (21-34) 04/13/17 06:28 - Constitutional Appears: Non-toxic, No Acute Distress, Cachectic - Head Exam Head Exam: NORMAL INSPECTION - Eye Exam Eye Exam: Normal appearance - Respiratory Exam Respiratory Exam: NORMAL BREATHING PATTERN. absent: Accessory Muscle Use, Respiratory Distress - Cardiovascular Exam Cardiovascular Exam: Tachycardia, REGULAR RHYTHM - GI/Abdominal Exam GI & Abdominal Exam: Soft, Tenderness (brandt-incisional TTP). absent: Distended , Guarding, Rigid, Rebound Additional comments: dressing c/d/i saad drain w/ serosanguinous output on Q present - Exam Additional comments: gonzalez in place, serosanguinous drainage - Extremities Exam Extremities Exam: Normal Inspection - Back Exam Additional comments: B/L nephrostomy tubes draining clear, yellow urine - Neurological Exam Neurological Exam: Alert, Awake - Psychiatric Exam Psychiatric exam: Normal Affect, Normal Mood - Skin Skin Exam: Dry, Normal Color, Warm Assessment and Plan - Assessment and Plan (Free Text) Assessment: 61 y/o F POD#1 s/p ex-lap, small bowel resection, bladder repair, ileostomy - cont NPO, IVF - monitor bowel fxn - consider switching to TPN - cont pain management - monitor drain output - transfuse for Hgb <8 - cont medical management per ICU Further recs per Dr. Misha Desouza DO PGY2 <Sumeet Cabral B - Last Filed: 04/16/17 17:17> Objective - Vital Signs/Intake and Output Vital Signs (last 24 hours): Temp Pulse Resp BP Pulse Ox 98.9 F 100 H 20 136/78 100 04/16/17 16:00 04/16/17 17:00 04/16/17 17:00 04/16/17 17:00 04/16/17 17:00 Intake and Output: 04/16/17 04/16/17 06:59 18:59 Intake Total 1145 850 Output Total 1870 1325 Balance -729 -067 - Medications Medications: Current Medications Acetaminophen (Tylenol 325mg Tab) 650 mg PO Q4 PRN PRN Reason: Fever >100.4 F Ascorbic Acid (Vitamin C 500 Mg Tab) 500 mg PO DAILY [facility] Last Admin: 04/16/17 09:45 Dose: 500 mg Heparin Sodium (Porcine) (Heparin) 5,000 units SC Q12 [facility] Last Admin: 04/16/17 09:43 Dose: 5,000 units Tigecycline 50 mg/ Sodium (Chloride) 100 mls @ 100 mls/hr IVPB Q12H [facility] Last Admin: 04/16/17 05:28 Dose: 100 mls/hr BUPIVACAINE 0.125%/0.9% NACL (Bupivacaine-Ns 0.125% On-Q [employer]) 600 mls @ 4 mls/ hr IJ ONCE ONE Stop: 04/21/17 16:56 Last Admin: 04/15/17 20:00 Dose: 4 mls/hr Fluconazole (Diflucan Iv 100 Mg/50 Ml Ns) 50 mls @ 50 mls/hr IVPB Q24H [facility] Last Admin: 04/16/17 10:03 Dose: 50 mls/hr Insulin Aspart (Novolog) 0 unit SC ACHS [facility] PRN Reason: Protocol Last Admin: 04/16/17 12:00 Dose: 6 unit Lactobacillus Acidophilus (Bacid Acidophilus) 1 cap PO DAILY [facility] Last Admin: 04/16/17 09:44 Dose: 1 cap Magnesium Oxide (Mag-Ox) 400 mg PO DAILY [facility] Last Admin: 04/16/17 09:45 Dose: 400 mg Morphine Sulfate (Morphine) 4 mg IVP Q4 PRN PRN Reason: Pain, severe (8-10) Ondansetron HCl (Zofran Inj) 4 mg IVP Q4 PRN PRN Reason: Nausea/Vomiting Last Admin: 04/15/17 17:55 Dose: 4 mg Oxycodone/Acetaminophen (Percocet 5/325 Mg Tab) 1 tab PO Q4H PRN PRN Reason: Pain, moderate (4-7) Stop: 04/19/17 07:50 Pantoprazole Sodium (Protonix Inj) 40 mg IVP DAILY [facility] Last Admin: 04/16/17 09:43 Dose: 40 mg Zinc Sulfate (Zinc Sulfate 220 Mg Cap) 220 mg PO DAILY [facility] Last Admin: 04/16/17 09:44 Dose: 220 mg - Labs Labs: 04/16/17 06:29 04/16/17 06:29 PT 11.9 SECONDS (9.7-12.2) 04/13/17 06:28 INR 1.1 04/13/17 06:28 APTT 27 SECONDS (21-34) 04/13/17 06:28 Attending/Attestation - Attestation I have personally seen and examined this patient.: Yes I have fully participated in the care of the patient.: Yes I have reviewed all pertinent clinical information, including history, physical exam and plan: Yes Notes (Text): 04/16/17 17:16 Pt was seen and examined at bedside Agree with above note and assessment f/u ID consult Clear liquid diet C/w current mx
[2017-04-13] MEDS ORDERED: Sodium Chloride 0.9% 1,000 ML IV SCH (11:30)
[2017-04-13] MEDS ORDERED: Sodium Chloride 0.9% 500 ML IV ONE (11:53)
--- NOTE | 2017-04-13 12:30 | CP.CCUPN ---
<Joey Gutierrez - Last Filed: 04/13/17 16:34> CCU Objective - Vital Signs / Intake & Output Vital Signs (Last 4 hours): Vital Signs Pulse Resp BP Pulse Ox 04/13/17 15:50 138 H 24 100 04/13/17 15:33 100/64 04/13/17 15:20 135 H 30 H 100 04/13/17 15:10 143 H 24 100 04/13/17 15:00 140 H 37 H 100 04/13/17 14:50 135 H 28 H 100 04/13/17 14:40 134 H 28 H 100 04/13/17 14:33 133 H 27 H 129/70 100 04/13/17 14:30 140 H 24 100 04/13/17 14:00 136 H 28 H 100 04/13/17 13:33 130 H 27 H 127/75 100 04/13/17 13:30 125 H 32 H 100 04/13/17 13:20 132 H 28 H 100 04/13/17 13:10 131 H 29 H 100 04/13/17 13:00 135 H 22 100 04/13/17 12:50 127 H 28 H 100 04/13/17 12:40 125 H 27 H 100 Intake and Output (Last 8hrs): Intake & Output 04/13/17 04/13/17 04/13/17 06:59 14:59 22:59 Intake Total 864 748 150 Output Total 1920 300 Balance -1056 448 150 Intake: Intake, IV Amount 864 748 150 Left Hand 200 Right Forearm 0 Right Hand 0 100 Right Internal Jugular 664 648 150 Right Wrist 0 Output: Drainage 1820 300 Left 500 300 Left Abdomen 50 Right 1250 Right Abdomen 20 Urine 100 Urethral (Mckeon) 100 - Medications Active Medications: Active Medications Generic Name Dose Route Start Last Admin Trade Name Freq PRN Reason Stop Dose Admin Acetaminophen 650 mg 04/04/17 22:01 Tylenol 325mg Tab PO Q4 PRN Fever >100.4 F Ascorbic Acid 500 mg 04/05/17 10:00 04/13/17 10:02 Vitamin C 500 Mg Tab PO Not Given DAILY VISHNU Imipenem/Cilastatin Sodium 500 100 mls @ 100 mls/hr 04/08/17 10:00 04/13/17 15:54 mg/ Sodium Chloride IVPB 100 mls/hr Q6H VISHNU Administration BUPIVACAINE 0.125%/0.9% NACL 600 mls @ 6 mls/hr 04/12/17 14:45 04/12/17 14:45 Bupivacaine-Ns 0.125% On-Q Screen Tender Helper IJ 04/16/17 18:44 28 mls ONCE ONE Administration Sodium Chloride 1,000 mls @ 75 mls/hr 04/13/17 12:45 04/13/17 13:24 Sodium Chloride 0.9% IV 75 mls/hr .[id number] VISHNU Administration Insulin Aspart 0 unit 04/13/17 16:00 04/13/17 16:21 Novolog SC 4 unit Q6H VISHNU Administration Protocol Lactobacillus Acidophilus 1 cap 04/05/17 10:00 04/13/17 10:02 Bacid Acidophilus PO Not Given DAILY [facility] Magnesium Oxide 400 mg 04/05/17 10:00 04/13/17 10:02 Mag-Ox PO Not Given DAILY [facility] Morphine Sulfate 4 mg 04/13/17 11:13 Morphine IVP Q4 PRN Pain, moderate (4-7) Ondansetron HCl 4 mg 04/06/17 12:06 04/13/17 08:32 Zofran Inj IVP 4 mg Q4 PRN Administration Nausea/Vomiting Pantoprazole Sodium 40 mg 04/05/17 10:00 04/13/17 10:02 Protonix Ec Tab PO Not Given DAILY [facility] Pantoprazole Sodium 40 mg 04/13/17 13:00 04/13/17 13:51 Protonix Inj IVP 40 mg DAILY VISHNU Administration Zinc Sulfate 220 mg 04/05/17 10:00 04/13/17 10:02 Zinc Sulfate 220 Mg Cap PO Not Given DAILY [facility] - Patient Studies Lab Studies: Microbiology Studies 04/12/17 14:04 Gram Stain - Final Umbilicus Wound Culture - Preliminary NO GROWTH AFTER 24 HOURS Lab Studies 04/13/17 04/13/17 04/13/17 Range/Units 16:18 13:35 11:33 WBC (4.8-10.8) K/uL RBC (3.80-5.20) Mil/uL Hgb (11.0-16.0) g/dL Hct (34.0-47.0) % MCV (81.0-99.0) fL MCH (27.0-31.0) pg MCHC (33.0-37.0) g/dL RDW (11.5-14.5) % Plt Count (130-400) K/uL MPV (7.2-11.7) fL Neut % (Auto) (50.0-75.0) % Lymph % (Auto) (20.0-40.0) % Dickinson % (Auto) (0.0-10.0) % Eos % (Auto) (0.0-4.0) % Baso % (Auto) (0.0-2.0) % Neut # (1.8-7.0) K/uL Lymph # (1.0-4.3) K/uL Dickinson # (0.0-0.8) K/uL Eos # (0.0-0.7) K/uL Baso # (0.0-0.2) K/uL Neutrophils % (Manual) (50-75) % Band Neutrophils % (0-2) % Lymphocytes % (Manual) (20-40) % Monocytes % (Manual) (0-10) % Platelet Estimate (NORMAL) Hypochromasia (manual) Poikilocytosis (manual Anisocytosis (manual) PT (9.7-12.2) SECONDS INR APTT (21-34) SECONDS Puncture Site pCO2 (35-45) mm/Hg pO2 (80-100) mm/Hg HCO3 (21-28) mmol/L ABG pH (7.35-7.45) ABG Total CO2 (22-28) mmol/L ABG O2 Saturation (95-98) % ABG Base Excess (-2.0-3.0) mmol/L Fran Test ABG Potassium (3.6-5.2) mmol/L A-a O2 Difference mm/Hg Respiratory Index Sodium (132-148) mmol/l Chloride (98-107) mmol/L Glucose (65-105) mg/dl Lactate (0.7-2.1) mmol/L Vent Mode Mechanical Rate FiO2 % Tidal Volume Potassium (3.6-5.2) mmol/L Carbon Dioxide (22-30) mmol/L Anion Gap (10-20) BUN (7-17) mg/dL Creatinine (0.7-1.2) mg/dL Est GFR ( Amer) Est GFR (Non-Af Amer) POC Glucose (mg/dL) 233 H 289 H (65-110) mg/dL Random Glucose (65-105) mg/dL Lactic Acid 1.4 (0.7-2.1) mmol/L Calcium (8.6-10.4) mg/dl Phosphorus (2.5-4.5) mg/dL Magnesium (1.6-2.3) mg/dL Total Bilirubin (0.2-1.3) mg/dL AST (14-36) U/L ALT (9-52) U/L Alkaline Phosphatase (38-126) U/L Total Protein (6.3-8.3) g/dL Albumin (3.5-5.0) g/dL Globulin (2.2-3.9) gm/dL Albumin/Globulin Ratio (1.0-2.1) Arterial Blood Potassium (3.6-5.2) mmol/L 04/13/17 04/13/17 04/13/17 Range/Units 07:24 06:33 06:28 WBC 18.4 H (4.8-10.8) K/uL RBC 4.16 (3.80-5.20) Mil/uL Hgb 11.6 D (11.0-16.0) g/dL Hct 34.2 (34.0-47.0) % MCV 82.1 (81.0-99.0) fL MCH 27.8 (27.0-31.0) pg MCHC 33.9 (33.0-37.0) g/dL RDW 14.9 H (11.5-14.5) % Plt Count 330 D (130-400) K/uL MPV 8.6 (7.2-11.7) fL Neut % (Auto) 88.1 H (50.0-75.0) % Lymph % (Auto) 7.9 L (20.0-40.0) % Dickinson % (Auto) 3.9 (0.0-10.0) % Eos % (Auto) 0.0 (0.0-4.0) % Baso % (Auto) 0.1 (0.0-2.0) % Neut # 16.2 H (1.8-7.0) K/uL Lymph # 1.5 (1.0-4.3) K/uL Dickinson # 0.7 (0.0-0.8) K/uL Eos # 0.0 (0.0-0.7) K/uL Baso # 0.0 (0.0-0.2) K/uL Neutrophils % (Manual) 62 (50-75) % Band Neutrophils % 25 H* (0-2) % Lymphocytes % (Manual) 10 L (20-40) % Monocytes % (Manual) 3 (0-10) % Platelet Estimate Normal (NORMAL) Hypochromasia (manual) Slight Poikilocytosis (manual Slight Anisocytosis (manual) Slight PT (9.7-12.2) SECONDS INR APTT (21-34) SECONDS Puncture Site pCO2 (35-45) mm/Hg pO2 (80-100) mm/Hg HCO3 (21-28) mmol/L ABG pH (7.35-7.45) ABG Total CO2 (22-28) mmol/L ABG O2 Saturation (95-98) % ABG Base Excess (-2.0-3.0) mmol/L Fran Test ABG Potassium (3.6-5.2) mmol/L A-a O2 Difference mm/Hg Respiratory Index Sodium 127 L (132-148) mmol/l Chloride 99 (98-107) mmol/L Glucose (65-105) mg/dl Lactate (0.7-2.1) mmol/L Vent Mode Mechanical Rate FiO2 % Tidal Volume Potassium 4.2 (3.6-5.2) mmol/L Carbon Dioxide 20 L (22-30) mmol/L Anion Gap 12 (10-20) BUN 18 H (7-17) mg/dL Creatinine 0.4 L (0.7-1.2) mg/dL Est GFR ( Amer) > 60 Est GFR (Non-Af Amer) > 60 POC Glucose (mg/dL) 280 H (65-110) mg/dL Random Glucose 276 H (65-105) mg/dL Lactic Acid (0.7-2.1) mmol/L Calcium 8.7 (8.6-10.4) mg/dl Phosphorus 3.1 (2.5-4.5) mg/dL Magnesium 1.8 (1.6-2.3) mg/dL Total Bilirubin 0.9 (0.2-1.3) mg/dL AST 26 (14-36) U/L ALT 29 (9-52) U/L Alkaline Phosphatase 86 (38-126) U/L Total Protein 6.1 L (6.3-8.3) g/dL Albumin 2.3 L (3.5-5.0) g/dL Globulin 3.7 (2.2-3.9) gm/dL Albumin/Globulin Ratio 0.6 L (1.0-2.1) Arterial Blood Potassium (3.6-5.2) mmol/L 04/13/17 04/12/17 04/12/17 Range/Units 06:28 22:31 18:20 WBC (4.8-10.8) K/uL RBC (3.80-5.20) Mil/uL Hgb (11.0-16.0) g/dL Hct (34.0-47.0) % MCV (81.0-99.0) fL MCH (27.0-31.0) pg MCHC (33.0-37.0) g/dL RDW (11.5-14.5) % Plt Count (130-400) K/uL MPV (7.2-11.7) fL Neut % (Auto) (50.0-75.0) % Lymph % (Auto) (20.0-40.0) % Dickinson % (Auto) (0.0-10.0) % Eos % (Auto) (0.0-4.0) % Baso % (Auto) (0.0-2.0) % Neut # (1.8-7.0) K/uL Lymph # (1.0-4.3) K/uL Dickinson # (0.0-0.8) K/uL Eos # (0.0-0.7) K/uL Baso # (0.0-0.2) K/uL Neutrophils % (Manual) (50-75) % Band Neutrophils % (0-2) % Lymphocytes % (Manual) (20-40) % Monocytes % (Manual) (0-10) % Platelet Estimate (NORMAL) Hypochromasia (manual) Poikilocytosis (manual Anisocytosis (manual) PT 11.9 (9.7-12.2) SECONDS INR 1.1 APTT 27 (21-34) SECONDS Puncture Site pCO2 (35-45) mm/Hg pO2 (80-100) mm/Hg HCO3 (21-28) mmol/L ABG pH (7.35-7.45) ABG Total CO2 (22-28) mmol/L ABG O2 Saturation (95-98) % ABG Base Excess (-2.0-3.0) mmol/L Fran Test ABG Potassium (3.6-5.2) mmol/L A-a O2 Difference mm/Hg Respiratory Index Sodium 128 L (132-148) mmol/l Chloride 103 (98-107) mmol/L Glucose (65-105) mg/dl Lactate (0.7-2.1) mmol/L Vent Mode Mechanical Rate FiO2 % Tidal Volume Potassium 3.9 (3.6-5.2) mmol/L Carbon Dioxide 16 L (22-30) mmol/L Anion Gap 13 (10-20) BUN 18 H (7-17) mg/dL Creatinine 0.4 L (0.7-1.2) mg/dL Est GFR ( Amer) > 60 Est GFR (Non-Af Amer) > 60 POC Glucose (mg/dL) 323 H (65-110) mg/dL Random Glucose 228 H (65-105) mg/dL Lactic Acid (0.7-2.1) mmol/L Calcium 7.8 L (8.6-10.4) mg/dl Phosphorus 3.4 (2.5-4.5) mg/dL Magnesium 1.0 L* D (1.6-2.3) mg/dL Total Bilirubin 1.5 H (0.2-1.3) mg/dL AST 18 (14-36) U/L ALT 27 (9-52) U/L Alkaline Phosphatase 78 (38-126) U/L Total Protein 5.0 L (6.3-8.3) g/dL Albumin 2.0 L (3.5-5.0) g/dL Globulin 3.0 (2.2-3.9) gm/dL Albumin/Globulin Ratio 0.7 L (1.0-2.1) Arterial Blood Potassium (3.6-5.2) mmol/L 04/12/17 04/12/17 Range/Units 18:20 16:45 WBC 13.1 H (4.8-10.8) K/uL RBC 3.39 L (3.80-5.20) Mil/uL Hgb 9.5 L (11.0-16.0) g/dL Hct 27.9 L (34.0-47.0) % MCV 82.2 (81.0-99.0) fL MCH 28.1 (27.0-31.0) pg MCHC 34.2 (33.0-37.0) g/dL RDW 14.6 H (11.5-14.5) % Plt Count 228 (130-400) K/uL MPV 7.6 (7.2-11.7) fL Neut % (Auto) 87.8 H (50.0-75.0) % Lymph % (Auto) 6.9 L (20.0-40.0) % Dickinson % (Auto) 5.1 (0.0-10.0) % Eos % (Auto) 0.1 (0.0-4.0) % Baso % (Auto) 0.1 (0.0-2.0) % Neut # 11.5 H (1.8-7.0) K/uL Lymph # 0.9 L (1.0-4.3) K/uL Dickinson # 0.7 (0.0-0.8) K/uL Eos # 0.0 (0.0-0.7) K/uL Baso # 0.0 (0.0-0.2) K/uL Neutrophils % (Manual) (50-75) % Band Neutrophils % (0-2) % Lymphocytes % (Manual) (20-40) % Monocytes % (Manual) (0-10) % Platelet Estimate (NORMAL) Hypochromasia (manual) Poikilocytosis (manual Anisocytosis (manual) PT (9.7-12.2) SECONDS INR APTT (21-34) SECONDS Puncture Site A line pCO2 28 L (35-45) mm/Hg pO2 499 H (80-100) mm/Hg HCO3 20.2 L (21-28) mmol/L ABG pH 7.40 (7.35-7.45) ABG Total CO2 18.2 L (22-28) mmol/L ABG O2 Saturation 99.2 H (95-98) % ABG Base Excess -6.1 L (-2.0-3.0) mmol/L Fran Test Na ABG Potassium 4.0 (3.6-5.2) mmol/L A-a O2 Difference 179.0 mm/Hg Respiratory Index 0.4 Sodium 132.0 (132-148) mmol/l Chloride 110.0 H (98-107) mmol/L Glucose 283 H (65-105) mg/dl Lactate 1.0 (0.7-2.1) mmol/L Vent Mode A/c Mechanical Rate 10 FiO2 100.0 % Tidal Volume 400 Potassium (3.6-5.2) mmol/L Carbon Dioxide (22-30) mmol/L Anion Gap (10-20) BUN (7-17) mg/dL Creatinine (0.7-1.2) mg/dL Est GFR ( Amer) Est GFR (Non-Af Amer) POC Glucose (mg/dL) (65-110) mg/dL Random Glucose (65-105) mg/dL Lactic Acid (0.7-2.1) mmol/L Calcium (8.6-10.4) mg/dl Phosphorus (2.5-4.5) mg/dL Magnesium (1.6-2.3) mg/dL Total Bilirubin (0.2-1.3) mg/dL AST (14-36) U/L ALT (9-52) U/L Alkaline Phosphatase (38-126) U/L Total Protein (6.3-8.3) g/dL Albumin (3.5-5.0) g/dL Globulin (2.2-3.9) gm/dL Albumin/Globulin Ratio (1.0-2.1) Arterial Blood Potassium 4.0 (3.6-5.2) mmol/L Laboratory Results - last 24 hr 04/12/17 04/12/17 04/12/17 16:45 18:20 18:20 WBC 13.1 H RBC 3.39 L Hgb 9.5 L Hct 27.9 L MCV 82.2 MCH 28.1 MCHC 34.2 RDW 14.6 H Plt Count 228 MPV 7.6 Neut % (Auto) 87.8 H Lymph % (Auto) 6.9 L Dickinson % (Auto) 5.1 Eos % (Auto) 0.1 Baso % (Auto) 0.1 Neut # 11.5 H Lymph # 0.9 L Dickinson # 0.7 Eos # 0.0 Baso # 0.0 Neutrophils % (Manual) Band Neutrophils % Lymphocytes % (Manual) Monocytes % (Manual) Platelet Estimate Hypochromasia (manual) Poikilocytosis (manual Anisocytosis (manual) PT INR APTT Puncture Site A line pCO2 28 L pO2 499 H HCO3 20.2 L ABG pH 7.40 ABG Total CO2 18.2 L ABG O2 Saturation 99.2 H ABG Base Excess -6.1 L Fran Test Na ABG Potassium 4.0 A-a O2 Difference 179.0 Respiratory Index 0.4 Sodium 132.0 128 L Chloride 110.0 H 103 Glucose 283 H Lactate 1.0 Vent Mode A/c Mechanical Rate 10 FiO2 100.0 Tidal Volume 400 Potassium 3.9 Carbon Dioxide 16 L Anion Gap 13 BUN 18 H Creatinine 0.4 L Est GFR ( Amer) > 60 Est GFR (Non-Af Amer) > 60 POC Glucose (mg/dL) Random Glucose 228 H Lactic Acid Calcium 7.8 L Phosphorus 3.4 Magnesium 1.0 L* D Total Bilirubin 1.5 H AST 18 ALT 27 Alkaline Phosphatase 78 Total Protein 5.0 L Albumin 2.0 L Globulin 3.0 Albumin/Globulin Ratio 0.7 L Arterial Blood Potassium 4.0 04/12/17 04/13/17 04/13/17 22:31 06:28 06:28 WBC RBC Hgb Hct MCV MCH MCHC RDW Plt Count MPV Neut % (Auto) Lymph % (Auto) Dickinson % (Auto) Eos % (Auto) Baso % (Auto) Neut # Lymph # Dickinson # Eos # Baso # Neutrophils % (Manual) Band Neutrophils % Lymphocytes % (Manual) Monocytes % (Manual) Platelet Estimate Hypochromasia (manual) Poikilocytosis (manual Anisocytosis (manual) PT 11.9 INR 1.1 APTT 27 Puncture Site pCO2 pO2 HCO3 ABG pH ABG Total CO2 ABG O2 Saturation ABG Base Excess Fran Test ABG Potassium A-a O2 Difference Respiratory Index Sodium 127 L Chloride 99 Glucose Lactate Vent Mode Mechanical Rate FiO2 Tidal Volume Potassium 4.2 Carbon Dioxide 20 L Anion Gap 12 BUN 18 H Creatinine 0.4 L Est GFR ( Amer) > 60 Est GFR (Non-Af Amer) > 60 POC Glucose (mg/dL) 323 H Random Glucose 276 H Lactic Acid Calcium 8.7 Phosphorus 3.1 Magnesium 1.8 Total Bilirubin 0.9 AST 26 ALT 29 Alkaline Phosphatase 86 Total Protein 6.1 L Albumin 2.3 L Globulin 3.7 Albumin/Globulin Ratio 0.6 L Arterial Blood Potassium 04/13/17 04/13/17 04/13/17 06:33 07:24 11:33 WBC 18.4 H RBC 4.16 Hgb 11.6 D Hct 34.2 MCV 82.1 MCH 27.8 MCHC 33.9 RDW 14.9 H Plt Count 330 D MPV 8.6 Neut % (Auto) 88.1 H Lymph % (Auto) 7.9 L Dickinson % (Auto) 3.9 Eos % (Auto) 0.0 Baso % (Auto) 0.1 Neut # 16.2 H Lymph # 1.5 Dickinson # 0.7 Eos # 0.0 Baso # 0.0 Neutrophils % (Manual) 62 Band Neutrophils % 25 H* Lymphocytes % (Manual) 10 L Monocytes % (Manual) 3 Platelet Estimate Normal Hypochromasia (manual) Slight Poikilocytosis (manual Slight Anisocytosis (manual) Slight PT INR APTT Puncture Site pCO2 pO2 HCO3 ABG pH ABG Total CO2 ABG O2 Saturation ABG Base Excess Fran Test ABG Potassium A-a O2 Difference Respiratory Index Sodium Chloride Glucose Lactate Vent Mode Mechanical Rate FiO2 Tidal Volume Potassium Carbon Dioxide Anion Gap BUN Creatinine Est GFR ( Amer) Est GFR (Non-Af Amer) POC Glucose (mg/dL) 280 H 289 H Random Glucose Lactic Acid Calcium Phosphorus Magnesium Total Bilirubin AST ALT Alkaline Phosphatase Total Protein Albumin Globulin Albumin/Globulin Ratio Arterial Blood Potassium 04/13/17 04/13/17 13:35 16:18 WBC RBC Hgb Hct MCV MCH MCHC RDW Plt Count MPV Neut % (Auto) Lymph % (Auto) Dickinson % (Auto) Eos % (Auto) Baso % (Auto) Neut # Lymph # Dickinson # Eos # Baso # Neutrophils % (Manual) Band Neutrophils % Lymphocytes % (Manual) Monocytes % (Manual) Platelet Estimate Hypochromasia (manual) Poikilocytosis (manual Anisocytosis (manual) PT INR APTT Puncture Site pCO2 pO2 HCO3 ABG pH ABG Total CO2 ABG O2 Saturation ABG Base Excess Fran Test ABG Potassium A-a O2 Difference Respiratory Index Sodium Chloride Glucose Lactate Vent Mode Mechanical Rate FiO2 Tidal Volume Potassium Carbon Dioxide Anion Gap BUN Creatinine Est GFR ( Amer) Est GFR (Non-Af Amer) POC Glucose (mg/dL) 233 H Random Glucose Lactic Acid 1.4 Calcium Phosphorus Magnesium Total Bilirubin AST ALT Alkaline Phosphatase Total Protein Albumin Globulin Albumin/Globulin Ratio Arterial Blood Potassium Critical Care Progress Note - Nutrition Nutrition: Nutrition Category Date Time Status Liquid Diet [DIET] Diets 04/13/17 Lunch Active Attending/Attestation - Attestation I have personally seen and examined this patient.: Yes I have fully participated in the care of the patient.: Yes I have reviewed all pertinent clinical information: Yes Notes (Text): 04/13/17 16:34 I have seen and examined the patient. Medical records, lab studies, and imaging were reviewed by me and a management plan was formulated on multidisciplinary rounds with resident Dr. Doran. I agree with their above documented assessment and plan. Patient recovering well s/p SB resection with bladder repair and diverting ileostomy. Surgery started on clear liquid diet. Continue Primaxin, monitor elevated leucocytosis closely. Critical Care Time 35 minutes. Multi-disciplinary rounds were performed with house staff, nursing, speech therapy, respiratory therapy, pharmacy and nutrition with integrated input from the primary team/attending and other consulting services. The documented time is cumulative and includes review of patient data/exams/labs/chart review and examination of the patient on rounds and throughout the day; time is exclusive of any procedures or teaching time. 04/13/17 16:36 <Handy Doran E - Last Filed: 04/13/17 18:53> CCU Subjective - Physician Review Subjective (Free Text): Patient was seen and examined at bedside. As per nursing, patient had no acute issues overnight. Patient admits to moderate abdominal tenderness, which is appropriate as she is s/p exploratory laparotomy, small bowel resection x2, bladder repair, appendectomy, ileostomy POD#1. Patient nodded "no" to chest pain , SOB, palpitations, nausea and vomiting. CCU Objective - Vital Signs / Intake & Output Vital Signs (Last 4 hours): Vital Signs Pulse Resp BP Pulse Ox 04/13/17 11:34 97/63 L 04/13/17 11:32 138 H 19 100 04/13/17 11:30 134 H 29 H 100 04/13/17 11:20 131 H 29 H 100 04/13/17 11:10 132 H 28 H 100 04/13/17 11:00 132 H 30 H 100 04/13/17 10:50 129 H 29 H 100 04/13/17 10:40 137 H 17 100 04/13/17 10:30 135 H 32 H 100 04/13/17 10:20 136 H 31 H 100 04/13/17 10:10 133 H 30 H 100 04/13/17 10:06 134 H 29 H 156/85 H 100 04/13/17 10:00 134 H 30 H 100 04/13/17 09:50 133 H 31 H 100 04/13/17 09:40 142 H 31 H 100 04/13/17 09:30 132 H 30 H 100 04/13/17 09:20 129 H 30 H 100 04/13/17 09:10 130 H 34 H 100 04/13/17 09:05 133 H 26 H 119/74 100 04/13/17 09:00 130 H 33 H 100 04/13/17 08:50 134 H 32 H 100 04/13/17 08:40 134 H 28 H 100 Intake and Output (Last 8hrs): Intake & Output 04/12/17 04/13/17 04/13/17 22:59 06:59 14:59 Intake Total 949 864 515 Output Total 385 1920 300 Balance 564 -1056 215 Weight 94 lb 6.4 oz Intake: Intake, IV Amount 949 864 515 Left Hand 700 200 Right Forearm 0 0 Right Hand 0 0 100 Right Internal Jugular 249 664 415 Right Wrist 0 0 Oral 0 Output: Drainage 355 1820 300 Left 50 500 300 Left Abdomen 30 50 Right 175 1250 Right Abdomen 20 Urine 30 100 Urethral (Mckeon) 30 100 - Physical Exam Head: Positive for: Atraumatic, Normocephalic Extroacular Muscles: Positive for: EOMI Respiratory/Chest: Positive for: Clear to Auscultation, Good Air Exchange. Negative for: Respiratory Distress Cardiovascular: Positive for: Regular Rate and Rhythm, Normal S1, S2 Abdomen: Positive for: Tenderness, Other (Dimished bowels sounds, dresssing in C /D/I ). Negative for: Distention, Peritoneal Signs Upper Extremity: Positive for: Normal Inspection. Negative for: Cyanosis, Edema Lower Extremity: Positive for: Normal Inspection. Negative for: Edema Neurological: Positive for: GCS=15, Speech Normal Skin: Positive for: Warm, Normal Color Psychiatric: Positive for: Alert, Oriented x 3 - Medications Active Medications: Active Medications Generic Name Dose Route Start Last Admin Trade Name Freq PRN Reason Stop Dose Admin Acetaminophen 650 mg 04/04/17 22:01 Tylenol 325mg Tab PO Q4 PRN Fever >100.4 F Ascorbic Acid 500 mg 04/05/17 10:00 04/13/17 10:02 Vitamin C 500 Mg Tab PO Not Given DAILY VISHNU Imipenem/Cilastatin Sodium 500 100 mls @ 100 mls/hr 04/08/17 10:00 04/13/17 10:06 mg/ Sodium Chloride IVPB 100 mls/hr Q6H VISHNU Administration Amino Acids 1,000 mls @ 83 mls/hr 04/13/17 06:11 04/13/17 06:18 Clinimix 4.25/5 % "E" (1000 Ml) IV 04/13/17 17:59 83 mls/hr .Q12H3M VISHNU Administration BUPIVACAINE 0.125%/0.9% NACL 600 mls @ 6 mls/hr 04/12/17 14:45 04/12/17 14:45 Bupivacaine-Ns 0.125% On-Q Screen Tender Helper IJ 04/16/17 18:44 28 mls ONCE ONE Administration Sodium Chloride 1,000 mls @ 83 mls/hr 04/13/17 11:30 Sodium Chloride 0.9% IV .Q12H3M VISHNU Multivitamins/Vitamin C 10 ml/ 1,010 mls @ 83 mls/hr 04/13/17 18:00 Amino Acids IV 04/14/17 06:10 .[id number] VISHNU Amino Acids 1,000 mls @ 83 mls/hr 04/14/17 06:11 Clinimix 4.25/5 % "E" (1000 Ml) IV 04/14/17 17:59 .Q12H3M VISHNU Insulin Aspart 0 unit 04/05/17 07:45 04/13/17 11:40 Novolog SC 3 unit ACHS VISHNU Administration Protocol Lactobacillus Acidophilus 1 cap 04/05/17 10:00 04/13/17 10:02 Bacid Acidophilus PO Not Given DAILY [facility] Magnesium Oxide 400 mg 04/05/17 10:00 04/13/17 10:02 Mag-Ox PO Not Given DAILY [facility] Morphine Sulfate 4 mg 04/13/17 11:13 Morphine IVP Q4 PRN Pain, moderate (4-7) Ondansetron HCl 4 mg 04/06/17 12:06 04/13/17 08:32 Zofran Inj IVP 4 mg Q4 PRN Administration Nausea/Vomiting Pantoprazole Sodium 40 mg 04/05/17 10:00 04/13/17 10:02 Protonix Ec Tab PO Not Given DAILY [facility] Zinc Sulfate 220 mg 04/05/17 10:00 04/13/17 10:02 Zinc Sulfate 220 Mg Cap PO Not Given DAILY [facility] - Patient Studies Lab Studies: Microbiology Studies 04/12/17 14:04 Gram Stain - Final Umbilicus Lab Studies 04/13/17 04/13/17 04/13/17 Range/Units 11:33 07:24 06:33 WBC 18.4 H (4.8-10.8) K/uL RBC 4.16 (3.80-5.20) Mil/uL Hgb 11.6 D (11.0-16.0) g/dL Hct 34.2 (34.0-47.0) % MCV 82.1 (81.0-99.0) fL MCH 27.8 (27.0-31.0) pg MCHC 33.9 (33.0-37.0) g/dL RDW 14.9 H (11.5-14.5) % Plt Count 330 D (130-400) K/uL MPV 8.6 (7.2-11.7) fL Neut % (Auto) 88.1 H (50.0-75.0) % Lymph % (Auto) 7.9 L (20.0-40.0) % Dickinson % (Auto) 3.9 (0.0-10.0) % Eos % (Auto) 0.0 (0.0-4.0) % Baso % (Auto) 0.1 (0.0-2.0) % Neut # 16.2 H (1.8-7.0) K/uL Lymph # 1.5 (1.0-4.3) K/uL Dickinson # 0.7 (0.0-0.8) K/uL Eos # 0.0 (0.0-0.7) K/uL Baso # 0.0 (0.0-0.2) K/uL Neutrophils % (Manual) 62 (50-75) % Band Neutrophils % 25 H* (0-2) % Lymphocytes % (Manual) 10 L (20-40) % Monocytes % (Manual) 3 (0-10) % Platelet Estimate Normal (NORMAL) RBC Morphology Hypochromasia (manual) Slight Poikilocytosis (manual Slight Anisocytosis (manual) Slight PT (9.7-12.2) SECONDS INR APTT (21-34) SECONDS Puncture Site pCO2 (35-45) mm/Hg pO2 (80-100) mm/Hg HCO3 (21-28) mmol/L ABG pH (7.35-7.45) ABG Total CO2 (22-28) mmol/L ABG O2 Saturation (95-98) % ABG Base Excess (-2.0-3.0) mmol/L Fran Test ABG Potassium (3.6-5.2) mmol/L A-a O2 Difference mm/Hg Respiratory Index Sodium (132-148) mmol/l Chloride (98-107) mmol/L Glucose (65-105) mg/dl Lactate (0.7-2.1) mmol/L Vent Mode Mechanical Rate FiO2 % Tidal Volume Potassium (3.6-5.2) mmol/L Carbon Dioxide (22-30) mmol/L Anion Gap (10-20) BUN (7-17) mg/dL Creatinine (0.7-1.2) mg/dL Est GFR ( Amer) Est GFR (Non-Af Amer) POC Glucose (mg/dL) 289 H 280 H (65-110) mg/dL Random Glucose (65-105) mg/dL Calcium (8.6-10.4) mg/dl Phosphorus (2.5-4.5) mg/dL Magnesium (1.6-2.3) mg/dL Total Bilirubin (0.2-1.3) mg/dL AST (14-36) U/L ALT (9-52) U/L Alkaline Phosphatase (38-126) U/L Total Protein (6.3-8.3) g/dL Albumin (3.5-5.0) g/dL Globulin (2.2-3.9) gm/dL Albumin/Globulin Ratio (1.0-2.1) Arterial Blood Potassium (3.6-5.2) mmol/L Blood Type Antibody Screen 04/13/17 04/13/17 04/12/17 Range/Units 06:28 06:28 22:31 WBC (4.8-10.8) K/uL RBC (3.80-5.20) Mil/uL Hgb (11.0-16.0) g/dL Hct (34.0-47.0) % MCV (81.0-99.0) fL MCH (27.0-31.0) pg MCHC (33.0-37.0) g/dL RDW (11.5-14.5) % Plt Count (130-400) K/uL MPV (7.2-11.7) fL Neut % (Auto) (50.0-75.0) % Lymph % (Auto) (20.0-40.0) % Dickinson % (Auto) (0.0-10.0) % Eos % (Auto) (0.0-4.0) % Baso % (Auto) (0.0-2.0) % Neut # (1.8-7.0) K/uL Lymph # (1.0-4.3) K/uL Dickinson # (0.0-0.8) K/uL Eos # (0.0-0.7) K/uL Baso # (0.0-0.2) K/uL Neutrophils % (Manual) (50-75) % Band Neutrophils % (0-2) % Lymphocytes % (Manual) (20-40) % Monocytes % (Manual) (0-10) % Platelet Estimate (NORMAL) RBC Morphology Hypochromasia (manual) Poikilocytosis (manual Anisocytosis (manual) PT 11.9 (9.7-12.2) SECONDS INR 1.1 APTT 27 (21-34) SECONDS Puncture Site pCO2 (35-45) mm/Hg pO2 (80-100) mm/Hg HCO3 (21-28) mmol/L ABG pH (7.35-7.45) ABG Total CO2 (22-28) mmol/L ABG O2 Saturation (95-98) % ABG Base Excess (-2.0-3.0) mmol/L Fran Test ABG Potassium (3.6-5.2) mmol/L A-a O2 Difference mm/Hg Respiratory Index Sodium 127 L (132-148) mmol/l Chloride 99 (98-107) mmol/L Glucose (65-105) mg/dl Lactate (0.7-2.1) mmol/L Vent Mode Mechanical Rate FiO2 % Tidal Volume Potassium 4.2 (3.6-5.2) mmol/L Carbon Dioxide 20 L (22-30) mmol/L Anion Gap 12 (10-20) BUN 18 H (7-17) mg/dL Creatinine 0.4 L (0.7-1.2) mg/dL Est GFR ( Amer) > 60 Est GFR (Non-Af Amer) > 60 POC Glucose (mg/dL) 323 H (65-110) mg/dL Random Glucose 276 H (65-105) mg/dL Calcium 8.7 (8.6-10.4) mg/dl Phosphorus 3.1 (2.5-4.5) mg/dL Magnesium 1.8 (1.6-2.3) mg/dL Total Bilirubin 0.9 (0.2-1.3) mg/dL AST 26 (14-36) U/L ALT 29 (9-52) U/L Alkaline Phosphatase 86 (38-126) U/L Total Protein 6.1 L (6.3-8.3) g/dL Albumin 2.3 L (3.5-5.0) g/dL Globulin 3.7 (2.2-3.9) gm/dL Albumin/Globulin Ratio 0.6 L (1.0-2.1) Arterial Blood Potassium (3.6-5.2) mmol/L Blood Type Antibody Screen 04/12/17 04/12/17 04/12/17 Range/Units 18:20 18:20 16:45 WBC 13.1 H (4.8-10.8) K/uL RBC 3.39 L (3.80-5.20) Mil/uL Hgb 9.5 L (11.0-16.0) g/dL Hct 27.9 L (34.0-47.0) % MCV 82.2 (81.0-99.0) fL MCH 28.1 (27.0-31.0) pg MCHC 34.2 (33.0-37.0) g/dL RDW 14.6 H (11.5-14.5) % Plt Count 228 (130-400) K/uL MPV 7.6 (7.2-11.7) fL Neut % (Auto) 87.8 H (50.0-75.0) % Lymph % (Auto) 6.9 L (20.0-40.0) % Dickinson % (Auto) 5.1 (0.0-10.0) % Eos % (Auto) 0.1 (0.0-4.0) % Baso % (Auto) 0.1 (0.0-2.0) % Neut # 11.5 H (1.8-7.0) K/uL Lymph # 0.9 L (1.0-4.3) K/uL Dickinson # 0.7 (0.0-0.8) K/uL Eos # 0.0 (0.0-0.7) K/uL Baso # 0.0 (0.0-0.2) K/uL Neutrophils % (Manual) (50-75) % Band Neutrophils % (0-2) % Lymphocytes % (Manual) (20-40) % Monocytes % (Manual) (0-10) % Platelet Estimate (NORMAL) RBC Morphology Hypochromasia (manual) Poikilocytosis (manual Anisocytosis (manual) PT (9.7-12.2) SECONDS INR APTT (21-34) SECONDS Puncture Site A line pCO2 28 L (35-45) mm/Hg pO2 499 H (80-100) mm/Hg HCO3 20.2 L (21-28) mmol/L ABG pH 7.40 (7.35-7.45) ABG Total CO2 18.2 L (22-28) mmol/L ABG O2 Saturation 99.2 H (95-98) % ABG Base Excess -6.1 L (-2.0-3.0) mmol/L Fran Test Na ABG Potassium 4.0 (3.6-5.2) mmol/L A-a O2 Difference 179.0 mm/Hg Respiratory Index 0.4 Sodium 128 L 132.0 (132-148) mmol/l Chloride 103 110.0 H (98-107) mmol/L Glucose 283 H (65-105) mg/dl Lactate 1.0 (0.7-2.1) mmol/L Vent Mode A/c Mechanical Rate 10 FiO2 100.0 % Tidal Volume 400 Potassium 3.9 (3.6-5.2) mmol/L Carbon Dioxide 16 L (22-30) mmol/L Anion Gap 13 (10-20) BUN 18 H (7-17) mg/dL Creatinine 0.4 L (0.7-1.2) mg/dL Est GFR ( Amer) > 60 Est GFR (Non-Af Amer) > 60 POC Glucose (mg/dL) (65-110) mg/dL Random Glucose 228 H (65-105) mg/dL Calcium 7.8 L (8.6-10.4) mg/dl Phosphorus 3.4 (2.5-4.5) mg/dL Magnesium 1.0 L* D (1.6-2.3) mg/dL Total Bilirubin 1.5 H (0.2-1.3) mg/dL AST 18 (14-36) U/L ALT 27 (9-52) U/L Alkaline Phosphatase 78 (38-126) U/L Total Protein 5.0 L (6.3-8.3) g/dL Albumin 2.0 L (3.5-5.0) g/dL Globulin 3.0 (2.2-3.9) gm/dL Albumin/Globulin Ratio 0.7 L (1.0-2.1) Arterial Blood Potassium 4.0 (3.6-5.2) mmol/L Blood Type Antibody Screen 04/12/17 04/12/17 04/12/17 Range/Units 14:37 14:37 14:37 WBC 14.1 H (4.8-10.8) K/uL RBC 4.02 (3.80-5.20) Mil/uL Hgb 11.3 (11.0-16.0) g/dL Hct 33.2 L (34.0-47.0) % MCV 82.6 (81.0-99.0) fL MCH 28.0 (27.0-31.0) pg MCHC 33.9 (33.0-37.0) g/dL RDW 14.9 H (11.5-14.5) % Plt Count 237 D (130-400) K/uL MPV 7.3 (7.2-11.7) fL Neut % (Auto) 86.8 H (50.0-75.0) % Lymph % (Auto) 8.9 L (20.0-40.0) % Dickinson % (Auto) 4.0 (0.0-10.0) % Eos % (Auto) 0.1 (0.0-4.0) % Baso % (Auto) 0.2 (0.0-2.0) % Neut # 12.2 H (1.8-7.0) K/uL Lymph # 1.3 (1.0-4.3) K/uL Dickinson # 0.6 (0.0-0.8) K/uL Eos # 0.0 (0.0-0.7) K/uL Baso # 0.0 (0.0-0.2) K/uL Neutrophils % (Manual) 71 (50-75) % Band Neutrophils % 18 H* (0-2) % Lymphocytes % (Manual) 9 L (20-40) % Monocytes % (Manual) 2 (0-10) % Platelet Estimate Normal (NORMAL) RBC Morphology Normal Hypochromasia (manual) Poikilocytosis (manual Anisocytosis (manual) PT 12.0 (9.7-12.2) SECONDS INR 1.1 APTT 29 (21-34) SECONDS Puncture Site pCO2 (35-45) mm/Hg pO2 (80-100) mm/Hg HCO3 (21-28) mmol/L ABG pH (7.35-7.45) ABG Total CO2 (22-28) mmol/L ABG O2 Saturation (95-98) % ABG Base Excess (-2.0-3.0) mmol/L Fran Test ABG Potassium (3.6-5.2) mmol/L A-a O2 Difference mm/Hg Respiratory Index Sodium 132 (132-148) mmol/l Chloride 103 (98-107) mmol/L Glucose (65-105) mg/dl Lactate (0.7-2.1) mmol/L Vent Mode Mechanical Rate FiO2 % Tidal Volume Potassium 4.5 (3.6-5.2) mmol/L Carbon Dioxide 19 L (22-30) mmol/L Anion Gap 15 (10-20) BUN 19 H (7-17) mg/dL Creatinine 0.4 L (0.7-1.2) mg/dL Est GFR ( Amer) > 60 Est GFR (Non-Af Amer) > 60 POC Glucose (mg/dL) (65-110) mg/dL Random Glucose 258 H (65-105) mg/dL Calcium 8.7 (8.6-10.4) mg/dl Phosphorus (2.5-4.5) mg/dL Magnesium (1.6-2.3) mg/dL Total Bilirubin 1.2 (0.2-1.3) mg/dL AST 18 (14-36) U/L ALT 29 (9-52) U/L Alkaline Phosphatase 105 (38-126) U/L Total Protein 6.3 (6.3-8.3) g/dL Albumin 2.5 L (3.5-5.0) g/dL Globulin 3.8 (2.2-3.9) gm/dL Albumin/Globulin Ratio 0.7 L (1.0-2.1) Arterial Blood Potassium (3.6-5.2) mmol/L Blood Type Antibody Screen 04/12/17 04/11/17 Range/Units 14:01 11:20 WBC (4.8-10.8) K/uL RBC (3.80-5.20) Mil/uL Hgb (11.0-16.0) g/dL Hct (34.0-47.0) % MCV (81.0-99.0) fL MCH (27.0-31.0) pg MCHC (33.0-37.0) g/dL RDW (11.5-14.5) % Plt Count (130-400) K/uL MPV (7.2-11.7) fL Neut % (Auto) (50.0-75.0) % Lymph % (Auto) (20.0-40.0) % Dickinson % (Auto) (0.0-10.0) % Eos % (Auto) (0.0-4.0) % Baso % (Auto) (0.0-2.0) % Neut # (1.8-7.0) K/uL Lymph # (1.0-4.3) K/uL Dickinson # (0.0-0.8) K/uL Eos # (0.0-0.7) K/uL Baso # (0.0-0.2) K/uL Neutrophils % (Manual) (50-75) % Band Neutrophils % (0-2) % Lymphocytes % (Manual) (20-40) % Monocytes % (Manual) (0-10) % Platelet Estimate (NORMAL) RBC Morphology Hypochromasia (manual) Poikilocytosis (manual Anisocytosis (manual) PT (9.7-12.2) SECONDS INR APTT (21-34) SECONDS Puncture Site A line pCO2 44 (35-45) mm/Hg pO2 474 H (80-100) mm/Hg HCO3 17.2 L (21-28) mmol/L ABG pH 7.21 L (7.35-7.45) ABG Total CO2 19.0 L (22-28) mmol/L ABG O2 Saturation 99.8 H (95-98) % ABG Base Excess -10.0 L (-2.0-3.0) mmol/L Fran Test Na ABG Potassium 3.9 (3.6-5.2) mmol/L A-a O2 Difference 184.0 mm/Hg Respiratory Index 0.4 Sodium 132.0 (132-148) mmol/l Chloride 110.0 H (98-107) mmol/L Glucose 273 H (65-105) mg/dl Lactate 0.9 (0.7-2.1) mmol/L Vent Mode Prvc Mechanical Rate 10 FiO2 100.0 % Tidal Volume 400 Potassium (3.6-5.2) mmol/L Carbon Dioxide (22-30) mmol/L Anion Gap (10-20) BUN (7-17) mg/dL Creatinine (0.7-1.2) mg/dL Est GFR ( Amer) Est GFR (Non-Af Amer) POC Glucose (mg/dL) (65-110) mg/dL Random Glucose (65-105) mg/dL Calcium (8.6-10.4) mg/dl Phosphorus (2.5-4.5) mg/dL Magnesium (1.6-2.3) mg/dL Total Bilirubin (0.2-1.3) mg/dL AST (14-36) U/L ALT (9-52) U/L Alkaline Phosphatase (38-126) U/L Total Protein (6.3-8.3) g/dL Albumin (3.5-5.0) g/dL Globulin (2.2-3.9) gm/dL Albumin/Globulin Ratio (1.0-2.1) Arterial Blood Potassium 3.9 (3.6-5.2) mmol/L Blood Type B POSITIVE Antibody Screen Negative Laboratory Results - last 24 hr 04/11/17 04/12/17 04/12/17 11:20 14:01 14:37 WBC 14.1 H RBC 4.02 Hgb 11.3 Hct 33.2 L MCV 82.6 MCH 28.0 MCHC 33.9 RDW 14.9 H Plt Count 237 D MPV 7.3 Neut % (Auto) 86.8 H Lymph % (Auto) 8.9 L Dickinson % (Auto) 4.0 Eos % (Auto) 0.1 Baso % (Auto) 0.2 Neut # 12.2 H Lymph # 1.3 Dickinson # 0.6 Eos # 0.0 Baso # 0.0 Neutrophils % (Manual) 71 Band Neutrophils % 18 H* Lymphocytes % (Manual) 9 L Monocytes % (Manual) 2 Platelet Estimate Normal RBC Morphology Normal Hypochromasia (manual) Poikilocytosis (manual Anisocytosis (manual) PT INR APTT Puncture Site A line pCO2 44 pO2 474 H HCO3 17.2 L ABG pH 7.21 L ABG Total CO2 19.0 L ABG O2 Saturation 99.8 H ABG Base Excess -10.0 L Fran Test Na ABG Potassium 3.9 A-a O2 Difference 184.0 Respiratory Index 0.4 Sodium 132.0 Chloride 110.0 H Glucose 273 H Lactate 0.9 Vent Mode Prvc Mechanical Rate 10 FiO2 100.0 Tidal Volume 400 Potassium Carbon Dioxide Anion Gap BUN Creatinine Est GFR ( Amer) Est GFR (Non-Af Amer) POC Glucose (mg/dL) Random Glucose Calcium Phosphorus Magnesium Total Bilirubin AST ALT Alkaline Phosphatase Total Protein Albumin Globulin Albumin/Globulin Ratio Arterial Blood Potassium 3.9 Blood Type B POSITIVE Antibody Screen Negative 04/12/17 04/12/17 04/12/17 14:37 14:37 16:45 WBC RBC Hgb Hct MCV MCH MCHC RDW Plt Count MPV Neut % (Auto) Lymph % (Auto) Dickinson % (Auto) Eos % (Auto) Baso % (Auto) Neut # Lymph # Dickinson # Eos # Baso # Neutrophils % (Manual) Band Neutrophils % Lymphocytes % (Manual) Monocytes % (Manual) Platelet Estimate RBC Morphology Hypochromasia (manual) Poikilocytosis (manual Anisocytosis (manual) PT 12.0 INR 1.1 APTT 29 Puncture Site A line pCO2 28 L pO2 499 H HCO3 20.2 L ABG pH 7.40 ABG Total CO2 18.2 L ABG O2 Saturation 99.2 H ABG Base Excess -6.1 L Fran Test Na ABG Potassium 4.0 A-a O2 Difference 179.0 Respiratory Index 0.4 Sodium 132 132.0 Chloride 103 110.0 H Glucose 283 H Lactate 1.0 Vent Mode A/c Mechanical Rate 10 FiO2 100.0 Tidal Volume 400 Potassium 4.5 Carbon Dioxide 19 L Anion Gap 15 BUN 19 H Creatinine 0.4 L Est GFR ( Amer) > 60 Est GFR (Non-Af Amer) > 60 POC Glucose (mg/dL) Random Glucose 258 H Calcium 8.7 Phosphorus Magnesium Total Bilirubin 1.2 AST 18 ALT 29 Alkaline Phosphatase 105 Total Protein 6.3 Albumin 2.5 L Globulin 3.8 Albumin/Globulin Ratio 0.7 L Arterial Blood Potassium 4.0 Blood Type Antibody Screen 04/12/17 04/12/17 04/12/17 18:20 18:20 22:31 WBC 13.1 H RBC 3.39 L Hgb 9.5 L Hct 27.9 L MCV 82.2 MCH 28.1 MCHC 34.2 RDW 14.6 H Plt Count 228 MPV 7.6 Neut % (Auto) 87.8 H Lymph % (Auto) 6.9 L Dickinson % (Auto) 5.1 Eos % (Auto) 0.1 Baso % (Auto) 0.1 Neut # 11.5 H Lymph # 0.9 L Dickinson # 0.7 Eos # 0.0 Baso # 0.0 Neutrophils % (Manual) Band Neutrophils % Lymphocytes % (Manual) Monocytes % (Manual) Platelet Estimate RBC Morphology Hypochromasia (manual) Poikilocytosis (manual Anisocytosis (manual) PT INR APTT Puncture Site pCO2 pO2 HCO3 ABG pH ABG Total CO2 ABG O2 Saturation ABG Base Excess Fran Test ABG Potassium A-a O2 Difference Respiratory Index Sodium 128 L Chloride 103 Glucose Lactate Vent Mode Mechanical Rate FiO2 Tidal Volume Potassium 3.9 Carbon Dioxide 16 L Anion Gap 13 BUN 18 H Creatinine 0.4 L Est GFR ( Amer) > 60 Est GFR (Non-Af Amer) > 60 POC Glucose (mg/dL) 323 H Random Glucose 228 H Calcium 7.8 L Phosphorus 3.4 Magnesium 1.0 L* D Total Bilirubin 1.5 H AST 18 ALT 27 Alkaline Phosphatase 78 Total Protein 5.0 L Albumin 2.0 L Globulin 3.0 Albumin/Globulin Ratio 0.7 L Arterial Blood Potassium Blood Type Antibody Screen 04/13/17 04/13/17 04/13/17 06:28 06:28 06:33 WBC 18.4 H RBC 4.16 Hgb 11.6 D Hct 34.2 MCV 82.1 MCH 27.8 MCHC 33.9 RDW 14.9 H Plt Count 330 D MPV 8.6 Neut % (Auto) 88.1 H Lymph % (Auto) 7.9 L Dickinson % (Auto) 3.9 Eos % (Auto) 0.0 Baso % (Auto) 0.1 Neut # 16.2 H Lymph # 1.5 Dickinson # 0.7 Eos # 0.0 Baso # 0.0 Neutrophils % (Manual) 62 Band Neutrophils % 25 H* Lymphocytes % (Manual) 10 L Monocytes % (Manual) 3 Platelet Estimate Normal RBC Morphology Hypochromasia (manual) Slight Poikilocytosis (manual Slight Anisocytosis (manual) Slight PT 11.9 INR 1.1 APTT 27 Puncture Site pCO2 pO2 HCO3 ABG pH ABG Total CO2 ABG O2 Saturation ABG Base Excess Fran Test ABG Potassium A-a O2 Difference Respiratory Index Sodium 127 L Chloride 99 Glucose Lactate Vent Mode Mechanical Rate FiO2 Tidal Volume Potassium 4.2 Carbon Dioxide 20 L Anion Gap 12 BUN 18 H Creatinine 0.4 L Est GFR ( Amer) > 60 Est GFR (Non-Af Amer) > 60 POC Glucose (mg/dL) Random Glucose 276 H Calcium 8.7 Phosphorus 3.1 Magnesium 1.8 Total Bilirubin 0.9 AST 26 ALT 29 Alkaline Phosphatase 86 Total Protein 6.1 L Albumin 2.3 L Globulin 3.7 Albumin/Globulin Ratio 0.6 L Arterial Blood Potassium Blood Type Antibody Screen 04/13/17 04/13/17 07:24 11:33 WBC RBC Hgb Hct MCV MCH MCHC RDW Plt Count MPV Neut % (Auto) Lymph % (Auto) Dickinson % (Auto) Eos % (Auto) Baso % (Auto) Neut # Lymph # Dickinson # Eos # Baso # Neutrophils % (Manual) Band Neutrophils % Lymphocytes % (Manual) Monocytes % (Manual) Platelet Estimate RBC Morphology Hypochromasia (manual) Poikilocytosis (manual Anisocytosis (manual) PT INR APTT Puncture Site pCO2 pO2 HCO3 ABG pH ABG Total CO2 ABG O2 Saturation ABG Base Excess Fran Test ABG Potassium A-a O2 Difference Respiratory Index Sodium Chloride Glucose Lactate Vent Mode Mechanical Rate FiO2 Tidal Volume Potassium Carbon Dioxide Anion Gap BUN Creatinine Est GFR ( Amer) Est GFR (Non-Af Amer) POC Glucose (mg/dL) 280 H 289 H Random Glucose Calcium Phosphorus Magnesium Total Bilirubin AST ALT Alkaline Phosphatase Total Protein Albumin Globulin Albumin/Globulin Ratio Arterial Blood Potassium Blood Type Antibody Screen Fingerstick Blood Sugar Results: 289 Review of Systems - Constitutional Constitutional: Weakness. absent: Fever, Chills, Sweats - EENT Eyes: absent: Change in Vision Ears: absent: Dizziness - Cardiovascular Cardiovascular: absent: Chest Pain, Dyspnea, Lightheadedness, Palpitations - Respiratory Respiratory: absent: Dyspnea, Wheezing - Gastrointestinal Gastrointestinal: Abdominal Pain. absent: Nausea, Vomiting - Neurological Neurological: Weakness. absent: Dizziness, Syncope, Tingling - Endocrine Endocrine: Fatigue. 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 Patient was noted to be hypotensive in the PACU. ICU admission to monitor for hypotension Plan: Neuro: Alert, awake, and responsive Cardio: No acute issues Pulm: No acute issues GI: colovesicula fistula and foreign body s/p exploratory laparotomy, small bowel resection x2, bladder repair, appendectomy, ileostomy POD#1 Medication: * Morphine 4mg IVP Q4 PRN for pain control * Tylenol 650mg PO Q4 PRN Endo: Accuchecks ISS low dose protocol Vascular: Hypotension ( Resolving) Medication/Management: * NS @ 75mls/hr ID: Leukocytosis and Bands (25), UC: Klebisella Pneumoniae Medications: * Primaxin 500mg IVPB Q6H Prophylaxis: DVT: SCDs, heparin 5,000 units SC Q12H GI: Protonix 40mg PO daily Bacid acidophilus Vitamin C 500mg PO daily Magnesium 400mg PO daily Zofran 4mg IV Q4 PRN Zinc 220mg PO daily Tolerating clear liquid diet
[2017-04-13] MEDS: Sodium Chloride 0.9% 1,000 ML IV SCH (13:24)
[2017-04-13] MEDS ORDERED: (Novolog) Insulin Aspart, Recombinant 100 u/ml 10 ml vial SC SCH (13:30)
[2017-04-13] MEDS ORDERED: PPN IV SCH (18:00)
[2017-04-13] MEDS ORDERED: Metoprolol 1 mg/ml Inj IVP ONE (19:25)
[2017-04-14] MEDS: Sodium Chloride 0.9% 1,000 ML IV SCH ×4 (02:20→22:14)
[2017-04-14] MEDS: (Novolog) Insulin Aspart, Recombinant 100 u/ml 10 ml vial SC SCH ×5 (04:00→22:00)
[2017-04-14] MEDS ORDERED: PPN # 14 IV SCH (06:11)
[2017-04-14 06:27] LABS: BASO % 0.2 % (0.0-2.0); EOS % 0.1 % (0.0-4.0); HEMATOCRIT 28.6 % (34.0-47.0); LYMPH # 1.7 K/uL (1.0-4.3); LYMPH % 8.3 % (20.0-40.0); MEAN CORPUSCULAR HEMOGLOBIN 27.8 pg (27.0-31.0); MEAN CORPUSCULAR HGB CONC 33.9 g/dL (33.0-37.0); MEAN PLATELET VOLUME 8.2 fL (7.2-11.7); MONO # 1.3 K/uL (0.0-0.8); MONO % 6.1 % (0.0-10.0); PLATELET COUNT 274 K/uL (130-400); RED CELL DISTRIBUTION WIDTH 15.3 % (11.5-14.5); WHITE BLOOD COUNT 20.6 K/uL (4.8-10.8)
[2017-04-14 06:46] LABS: CHLORIDE 99 mmol/L (98-107); SODIUM 129 mmol/L (132-148)
[2017-04-14 06:47] LABS: POTASSIUM 3.8 mmol/L (3.6-5.2)
[2017-04-14 06:48] LABS: GFR AFRICAN-AMERICAN > 60
[2017-04-14 06:49] LABS: ALB/GLOB RATIO 0.6 (1.0-2.1); ALKALINE PHOSPHATASE 94 U/L (38-126); ALT/SGPT 28 U/L (9-52); AST/SGOT 21 U/L (14-36); BILIRUBIN,TOTAL 0.6 mg/dL (0.2-1.3); BLOOD UREA NITROGEN 14 mg/dL (7-17); CALCIUM 9.1 mg/dl (8.6-10.4); CARBON DIOXIDE 21 mmol/L (22-30); GLUCOSE,RANDOM 134 mg/dL (65-105); TOTAL PROTEIN 5.9 g/dL (6.3-8.3)
[2017-04-14 06:50] LABS: MAGNESIUM 1.5 mg/dL (1.6-2.3)
[2017-04-14 08:21] LABS: NEUTROPHIL 91 % (50-75); TOTAL CELLS COUNTED 100
[2017-04-14] MEDS: Magnesium Oxide 400 mg Tab UD PO SCH (09:00)
[2017-04-14] MEDS: Pantoprazole 40 mg EC Tab PO SCH (09:00)
[2017-04-14] MEDS: Lactobacillus Acidophilus 500 MU Cap PO SCH (09:00)
[2017-04-14] MEDS: Magnesium Sulfate 1 gm in D5W 1 GM/100 ML BAG IVPB SCH ×2 (10:51→11:59)
--- NOTE | 2017-04-14 12:14 | CP.PCM.PN ---
<DeoZari - Last Filed: 04/14/17 17:51> Subjective - Date & Time of Evaluation Date of Evaluation: 04/14/17 Time of Evaluation: 07:00 - Subjective Subjective: General Surgery Dr. Cabral Pt S&E @bedside. NAEO. Pt c/o nausea. Pt deneis F/C, vomiting. pain well controlled. (+)ostomy output. Objective - Vital Signs/Intake and Output Vital Signs (last 24 hours): Temp Pulse Resp BP Pulse Ox 99.7 F H 114 H 21 128/72 100 04/14/17 07:50 04/14/17 11:20 04/14/17 11:20 04/14/17 10:45 04/14/17 11:20 Intake and Output: 04/14/17 04/14/17 06:59 18:59 Intake Total 1025 500 Output Total 765 565 Balance 260 -65 - Medications Medications: Current Medications Acetaminophen (Tylenol 325mg Tab) 650 mg PO Q4 PRN PRN Reason: Fever >100.4 F Ascorbic Acid (Vitamin C 500 Mg Tab) 500 mg PO DAILY [facility] Last Admin: 04/14/17 09:00 Dose: Not Given Heparin Sodium (Porcine) (Heparin) 5,000 units SC Q12 [facility] Last Admin: 04/14/17 10:51 Dose: 5,000 units Imipenem/Cilastatin Sodium 500 (mg/ Sodium Chloride) 100 mls @ 100 mls/hr IVPB Q6H [facility] Last Admin: 04/14/17 10:55 Dose: 100 mls/hr BUPIVACAINE 0.125%/0.9% NACL (Bupivacaine-Ns 0.125% On-Q Coverer) 600 mls @ 6 mls/ hr IJ ONCE ONE Stop: 04/16/17 18:44 Last Admin: 04/12/17 14:45 Dose: 28 mls Sodium Chloride (Sodium Chloride 0.9%) 1,000 mls @ 75 mls/hr IV .[id number] [facility] Last Admin: 04/14/17 05:00 Dose: 75 mls/hr Magnesium Sulfate/Dextrose (Magnesium Sulfate 1 Gm/100 Ml D5w) 1 gm in 100 mls @ 100 mls/hr IVPB Q1H [facility] Stop: 04/14/17 12:59 Last Admin: 04/14/17 11:59 Dose: 100 mls/hr Insulin Aspart (Novolog) 0 unit SC ACHS [facility] PRN Reason: Protocol Last Admin: 04/14/17 11:59 Dose: 6 unit Lactobacillus Acidophilus (Bacid Acidophilus) 1 cap PO DAILY [facility] Last Admin: 04/14/17 09:00 Dose: Not Given Magnesium Oxide (Mag-Ox) 400 mg PO DAILY [facility] Last Admin: 04/14/17 09:00 Dose: Not Given Morphine Sulfate (Morphine) 4 mg IVP Q4 PRN PRN Reason: Pain, moderate (4-7) Last Admin: 04/14/17 09:35 Dose: 4 mg Ondansetron HCl (Zofran Inj) 4 mg IVP Q4 PRN PRN Reason: Nausea/Vomiting Last Admin: 04/14/17 08:19 Dose: 4 mg Pantoprazole Sodium (Protonix Ec Tab) 40 mg PO DAILY [facility] Last Admin: 04/14/17 09:00 Dose: Not Given Pantoprazole Sodium (Protonix Inj) 40 mg IVP DAILY [facility] Last Admin: 04/14/17 09:36 Dose: 40 mg Zinc Sulfate (Zinc Sulfate 220 Mg Cap) 220 mg PO DAILY [facility] Last Admin: 04/14/17 09:00 Dose: Not Given - Labs Labs: 04/14/17 06:17 04/14/17 06:17 PT 11.9 SECONDS (9.7-12.2) 04/13/17 06:28 INR 1.1 04/13/17 06:28 APTT 27 SECONDS (21-34) 04/13/17 06:28 - Constitutional Appears: Non-toxic, No Acute Distress - Head Exam Head Exam: NORMAL INSPECTION - Eye Exam Eye Exam: Normal appearance - ENT Exam ENT Exam: Mucous Membranes Moist - Respiratory Exam Respiratory Exam: NORMAL BREATHING PATTERN. absent: Accessory Muscle Use, Respiratory Distress - Cardiovascular Exam Cardiovascular Exam: absent: Bradycardia, Tachycardia - GI/Abdominal Exam GI & Abdominal Exam: Soft, Tenderness (brandt-incisional TTP). absent: Distended , Guarding, Rebound Additional comments: incision c/d/i dressings dirty fransisco w/ serosang ileostomy w/ stool present On Q present - Extremities Exam Extremities Exam: Normal Inspection - Neurological Exam Neurological Exam: Alert, Awake, Oriented x3 - Psychiatric Exam Psychiatric exam: Normal Affect, Normal Mood - Skin Skin Exam: Dry, Normal Color, Warm Assessment and Plan - Assessment and Plan (Free Text) Assessment: 61 y/o F POD#2 s/p ex-lap, small bowel resection, bladder repair, ileostomy w/ increasing leukocytosis - remove A-line and CVC - Fransisco, Mckeon, Nephrostomy tube cultures - cont IV Abx per ID - cont pain management - advance diet to soft Pt seen and discussed w/ Dr. Misha Desouza DO PGY2 <Sumeet Cabral - Last Filed: 04/16/17 17:18> Objective - Vital Signs/Intake and Output Vital Signs (last 24 hours): Temp Pulse Resp BP Pulse Ox 98.9 F 100 H 20 136/78 100 04/16/17 16:00 04/16/17 17:00 04/16/17 17:00 04/16/17 17:00 04/16/17 17:00 Intake and Output: 04/16/17 04/16/17 06:59 18:59 Intake Total 1145 850 Output Total 1870 1325 Balance -725 -475 - Medications Medications: Current Medications Acetaminophen (Tylenol 325mg Tab) 650 mg PO Q4 PRN PRN Reason: Fever >100.4 F Ascorbic Acid (Vitamin C 500 Mg Tab) 500 mg PO DAILY [facility] Last Admin: 04/16/17 09:45 Dose: 500 mg Heparin Sodium (Porcine) (Heparin) 5,000 units SC Q12 [facility] Last Admin: 04/16/17 09:43 Dose: 5,000 units Tigecycline 50 mg/ Sodium (Chloride) 100 mls @ 100 mls/hr IVPB Q12H [facility] Last Admin: 04/16/17 05:28 Dose: 100 mls/hr BUPIVACAINE 0.125%/0.9% NACL (Bupivacaine-Ns 0.125% On-Q Coverer) 600 mls @ 4 mls/ hr IJ ONCE ONE Stop: 04/21/17 16:56 Last Admin: 04/15/17 20:00 Dose: 4 mls/hr Fluconazole (Diflucan Iv 100 Mg/50 Ml Ns) 50 mls @ 50 mls/hr IVPB Q24H [facility] Last Admin: 04/16/17 10:03 Dose: 50 mls/hr Insulin Aspart (Novolog) 0 unit SC ACHS [facility] PRN Reason: Protocol Last Admin: 04/16/17 12:00 Dose: 6 unit Lactobacillus Acidophilus (Bacid Acidophilus) 1 cap PO DAILY [facility] Last Admin: 04/16/17 09:44 Dose: 1 cap Magnesium Oxide (Mag-Ox) 400 mg PO DAILY [facility] Last Admin: 04/16/17 09:45 Dose: 400 mg Morphine Sulfate (Morphine) 4 mg IVP Q4 PRN PRN Reason: Pain, severe (8-10) Ondansetron HCl (Zofran Inj) 4 mg IVP Q4 PRN PRN Reason: Nausea/Vomiting Last Admin: 04/15/17 17:55 Dose: 4 mg Oxycodone/Acetaminophen (Percocet 5/325 Mg Tab) 1 tab PO Q4H PRN PRN Reason: Pain, moderate (4-7) Stop: 04/19/17 07:50 Pantoprazole Sodium (Protonix Inj) 40 mg IVP DAILY [facility] Last Admin: 04/16/17 09:43 Dose: 40 mg Zinc Sulfate (Zinc Sulfate 220 Mg Cap) 220 mg PO DAILY [facility] Last Admin: 04/16/17 09:44 Dose: 220 mg - Labs Labs: 04/16/17 06:29 04/16/17 06:29 PT 11.9 SECONDS (9.7-12.2) 04/13/17 06:28 INR 1.1 04/13/17 06:28 APTT 27 SECONDS (21-34) 04/13/17 06:28 Attending/Attestation - Attestation I have personally seen and examined this patient.: Yes I have fully participated in the care of the patient.: Yes I have reviewed all pertinent clinical information, including history, physical exam and plan: Yes Notes (Text): 04/16/17 17:18 Pt was seen and examined at bedside Agree with above note and assessment DC TLC, Wanda HUGHES to walk Full liquid diet Plan d.w pt in detail.
--- NOTE | 2017-04-14 12:41 | CP.CCUPN ---
<Handy Doran E - Last Filed: 04/14/17 14:24> CCU Subjective - Physician Review Subjective (Free Text): Patient was seen and examined as she was resting in a recliner. As per nursing , patient had no acute issues overnight. Patient admits to moderate abdominal tenderness, which is appropriate as she is s/p exploratory laparotomy, small bowel resection x2, bladder repair, appendectomy, ileostomy POD#2. Patient nodded "no" to chest pain, SOB, palpitations, nausea and vomiting. Patient is able to mildly tolerate liquid diet. CCU Objective - Vital Signs / Intake & Output Vital Signs (Last 4 hours): Vital Signs Temp Pulse Resp BP Pulse Ox 04/14/17 12:00 98.9 F 04/14/17 11:20 114 H 21 100 04/14/17 11:10 115 H 21 100 04/14/17 11:00 118 H 23 100 04/14/17 10:50 121 H 20 100 04/14/17 10:45 117 H 22 128/72 100 04/14/17 10:40 122 H 21 100 04/14/17 10:30 120 H 20 100 04/14/17 10:20 120 H 20 100 04/14/17 10:10 115 H 19 100 04/14/17 10:00 114 H 20 100 04/14/17 09:50 120 H 17 100 04/14/17 09:45 121 H 23 123/61 100 04/14/17 09:43 123 H 19 100 04/14/17 09:30 126 H 13 04/14/17 09:20 122 H 26 H 04/14/17 09:10 131 H 18 04/14/17 09:00 118 H 22 04/14/17 08:50 115 H 22 04/14/17 08:40 115 H 21 Intake and Output (Last 8hrs): Intake & Output 04/13/17 04/14/17 04/14/17 22:59 06:59 14:59 Intake Total 1000 625 500 Output Total 750 765 565 Balance 250 -140 -65 Weight 95 lb Intake: Intake, IV Amount 600 625 500 Right Forearm 325 Right Internal Jugular 600 625 75 Right Wrist 100 Oral 400 Output: Drainage 750 765 565 Fransisco tube to Mckeon 500 500 500 Left 100 100 Left Abdomen 40 40 40 Right 100 100 Right Abdomen 10 25 25 - Physical Exam Head: Positive for: Atraumatic, Normocephalic Extroacular Muscles: Positive for: EOMI Respiratory/Chest: Positive for: Clear to Auscultation, Good Air Exchange. Negative for: Respiratory Distress Cardiovascular: Positive for: Regular Rate and Rhythm, Normal S1, S2 Abdomen: Positive for: Tenderness, Normal Bowel Sounds, Other (dresssing in C/D/ I ). Negative for: Distention, Peritoneal Signs Upper Extremity: Positive for: Normal Inspection. Negative for: Cyanosis, Edema Lower Extremity: Positive for: Normal Inspection. Negative for: Edema Neurological: Positive for: GCS=15, Speech Normal Skin: Positive for: Warm, Normal Color Psychiatric: Positive for: Alert, Oriented x 3 - Medications Active Medications: Active Medications Generic Name Dose Route Start Last Admin Trade Name Freq PRN Reason Stop Dose Admin Acetaminophen 650 mg 04/04/17 22:01 Tylenol 325mg Tab PO Q4 PRN Fever >100.4 F Ascorbic Acid 500 mg 04/05/17 10:00 04/14/17 09:00 Vitamin C 500 Mg Tab PO Not Given DAILY [facility] Heparin Sodium (Porcine) 5,000 units 04/13/17 22:00 04/14/17 10:51 Heparin SC 5,000 units Q12 [facility] Administration Imipenem/Cilastatin Sodium 500 100 mls @ 100 mls/hr 04/08/17 10:00 04/14/17 10:55 mg/ Sodium Chloride IVPB 100 mls/hr Q6H [facility] Administration BUPIVACAINE 0.125%/0.9% NACL 600 mls @ 6 mls/hr 04/12/17 14:45 04/12/17 14:45 Bupivacaine-Ns 0.125% On-Q Forensic Photographer IJ 04/16/17 18:44 28 mls ONCE ONE Administration Sodium Chloride 1,000 mls @ 75 mls/hr 04/13/17 12:45 04/14/17 05:00 Sodium Chloride 0.9% IV 75 mls/hr .[id number] [facility]NU Administration Magnesium Sulfate/Dextrose 1 gm in 100 mls @ 100 mls/hr 04/14/17 11:00 11:59 Magnesium Sulfate 1 Gm/100 Ml D5w IVPB 04/14/17 12:59 100 mls/hr Q1H [facility] Administration Insulin Aspart 0 unit 04/14/17 11:45 04/14/17 11:59 Novolog SC 6 unit ACHS V[facility] Administration Protocol Lactobacillus Acidophilus 1 cap 04/05/17 10:00 04/14/17 09:00 Bacid Acidophilus PO Not Given DAILY [facility] Magnesium Oxide 400 mg 04/05/17 10:00 04/14/17 09:00 Mag-Ox PO Not Given DAILY [facility] Morphine Sulfate 4 mg 04/13/17 11:13 04/14/17 09:35 Morphine IVP 4 mg Q4 PRN Administration Pain, moderate (4-7) Ondansetron HCl 4 mg 04/06/17 12:06 04/14/17 08:19 Zofran Inj IVP 4 mg Q4 PRN Administration Nausea/Vomiting Pantoprazole Sodium 40 mg 04/05/17 10:00 04/14/17 09:00 Protonix Ec Tab PO Not Given DAILY [facility] Pantoprazole Sodium 40 mg 04/13/17 13:00 04/14/17 09:36 Protonix Inj IVP 40 mg DAILY [facility] Administration Zinc Sulfate 220 mg 04/05/17 10:00 04/14/17 09:00 Zinc Sulfate 220 Mg Cap PO Not Given DAILY [facility] - Patient Studies Lab Studies: Microbiology Studies 04/14/17 08:13 Gram Stain - Preliminary Peritoneal Fluid 04/14/17 08:32 Gram Stain - Final Body Fluid - Abdominal 04/12/17 17:44 MRSA Culture (Admit) - Final Nose MRSA NOT DETECTED 04/12/17 14:04 Gram Stain - Final Umbilicus Wound Culture - Preliminary NO GROWTH AFTER 24 HOURS Lab Studies 04/14/17 04/14/17 04/14/17 Range/Units 11:44 06: 06:17 WBC 20.6 H (4.8-10.8) K/uL RBC 3.49 L (3.80-5.20) Mil/uL Hgb 9.7 L (11.0-16.0) g/dL Hct 28.6 L (34.0-47.0) % MCV 82.0 (81.0-99.0) fL MCH 27.8 (27.0-31.0) pg MCHC 33.9 (33.0-37.0) g/dL RDW 15.3 H (11.5-14.5) % Plt Count 274 (130-400) K/uL MPV 8.2 (7.2-11.7) fL Neut % (Auto) 85.3 H (50.0-75.0) % Lymph % (Auto) 8.3 L (20.0-40.0) % [place] % (Auto) 6.1 (0.0-10.0) % Eos % (Auto) 0.1 (0.0-4.0) % Baso % (Auto) 0.2 (0.0-2.0) % Neut # 17.5 H (1.8-7.0) K/uL Lymph # 1.7 (1.0-4.3) K/uL [place] # 1.3 H (0.0-0.8) K/uL Eos # 0.0 (0.0-0.7) K/uL Baso # 0.0 (0.0-0.2) K/uL Neutrophils % (Manual) 91 H (50-75) % Lymphocytes % (Manual) 6 L (20-40) % Monocytes % (Manual) 3 (0-10) % Platelet Estimate Normal (NORMAL) Sodium 129 L (132-148) mmol/L Potassium 3.8 (3.6-5.2) mmol/L Chloride 99 (98-107) mmol/L Carbon Dioxide 21 L (22-30) mmol/L Anion Gap 13 (10-20) BUN 14 (7-17) mg/dL Creatinine 0.4 L (0.7-1.2) mg/dL Est GFR ( Amer) > 60 Est GFR (Non-Af Amer) > 60 POC Glucose (mg/dL) 260 H (65-110) mg/dL Random Glucose 134 H (65-105) mg/dL Lactic Acid (0.7-2.1) mmol/L Calcium 9.1 (8.6-10.4) mg/dl Phosphorus 3.0 (2.5-4.5) mg/dL Magnesium 1.5 L (1.6-2.3) mg/dL Total Bilirubin 0.6 (0.2-1.3) mg/dL AST 21 (14-36) U/L ALT 28 (9-52) U/L Alkaline Phosphatase 94 (38-126) U/L Total Protein 5.9 L (6.3-8.3) g/dL Albumin 2.2 L (3.5-5.0) g/dL Globulin 3.7 (2.2-3.9) gm/dL Albumin/Globulin Ratio 0.6 L (1.0-2.1) 04/14/17 04/13/17 04/13/17 Range/Units 04:26 21:11 16:18 WBC (4.8-10.8) K/uL RBC (3.80-5.20) Mil/uL Hgb (11.0-16.0) g/dL Hct (34.0-47.0) % MCV (81.0-99.0) fL MCH (27.0-31.0) pg MCHC (33.0-37.0) g/dL RDW (11.5-14.5) % Plt Count (130-400) K/uL MPV (7.2-11.7) fL Neut % (Auto) (50.0-75.0) % Lymph % (Auto) (20.0-40.0) % [place] % (Auto) (0.0-10.0) % Eos % (Auto) (0.0-4.0) % Baso % (Auto) (0.0-2.0) % Neut # (1.8-7.0) K/uL Lymph # (1.0-4.3) K/uL [place] # (0.0-0.8) K/uL Eos # (0.0-0.7) K/uL Baso # (0.0-0.2) K/uL Neutrophils % (Manual) (50-75) % Lymphocytes % (Manual) (20-40) % Monocytes % (Manual) (0-10) % Platelet Estimate (NORMAL) Sodium (132-148) mmol/L Potassium (3.6-5.2) mmol/L Chloride (98-107) mmol/L Carbon Dioxide (22-30) mmol/L Anion Gap (10-20) BUN (7-17) mg/dL Creatinine (0.7-1.2) mg/dL Est GFR ( Amer) Est GFR (Non-Af Amer) POC Glucose (mg/dL) 166 H 210 H 233 H (65-110) mg/dL Random Glucose (65-105) mg/dL Lactic Acid (0.7-2.1) mmol/L Calcium (8.6-10.4) mg/dl Phosphorus (2.5-4.5) mg/dL Magnesium (1.6-2.3) mg/dL Total Bilirubin (0.2-1.3) mg/dL AST (14-36) U/L ALT (9-52) U/L Alkaline Phosphatase (38-126) U/L Total Protein (6.3-8.3) g/dL Albumin (3.5-5.0) g/dL Globulin (2.2-3.9) gm/dL Albumin/Globulin Ratio (1.0-2.1) 04/13/17 Range/Units 13:35 WBC (4.8-10.8) K/uL RBC (3.80-5.20) Mil/uL Hgb (11.0-16.0) g/dL Hct (34.0-47.0) % MCV (81.0-99.0) fL MCH (27.0-31.0) pg MCHC (33.0-37.0) g/dL RDW (11.5-14.5) % Plt Count (130-400) K/uL MPV (7.2-11.7) fL Neut % (Auto) (50.0-75.0) % Lymph % (Auto) (20.0-40.0) % [place] % (Auto) (0.0-10.0) % Eos % (Auto) (0.0-4.0) % Baso % (Auto) (0.0-2.0) % Neut # (1.8-7.0) K/uL Lymph # (1.0-4.3) K/uL [place] # (0.0-0.8) K/uL Eos # (0.0-0.7) K/uL Baso # (0.0-0.2) K/uL Neutrophils % (Manual) (50-75) % Lymphocytes % (Manual) (20-40) % Monocytes % (Manual) (0-10) % Platelet Estimate (NORMAL) Sodium (132-148) mmol/L Potassium (3.6-5.2) mmol/L Chloride (98-107) mmol/L Carbon Dioxide (22-30) mmol/L Anion Gap (10-20) BUN (7-17) mg/dL Creatinine (0.7-1.2) mg/dL Est GFR ( Amer) Est GFR (Non-Af Amer) POC Glucose (mg/dL) (65-110) mg/dL Random Glucose (65-105) mg/dL Lactic Acid 1.4 (0.7-2.1) mmol/L Calcium (8.6-10.4) mg/dl Phosphorus (2.5-4.5) mg/dL Magnesium (1.6-2.3) mg/dL Total Bilirubin (0.2-1.3) mg/dL AST (14-36) U/L ALT (9-52) U/L Alkaline Phosphatase (38-126) U/L Total Protein (6.3-8.3) g/dL Albumin (3.5-5.0) g/dL Globulin (2.2-3.9) gm/dL Albumin/Globulin Ratio (1.0-2.1) Laboratory Results - last 24 hr 04/13/17 04/13/17 04/13/17 13:35 16:18 21:11 WBC RBC Hgb Hct MCV MCH MCHC RDW Plt Count MPV Neut % (Auto) Lymph % (Auto) [place] % (Auto) Eos % (Auto) Baso % (Auto) Neut # Lymph # [place] # Eos # Baso # Neutrophils % (Manual) Lymphocytes % (Manual) Monocytes % (Manual) Platelet Estimate Sodium Potassium Chloride Carbon Dioxide Anion Gap BUN Creatinine Est GFR ( Amer) Est GFR (Non-Af Amer) POC Glucose (mg/dL) 233 H 210 H Random Glucose Lactic Acid 1.4 Calcium Phosphorus Magnesium Total Bilirubin AST ALT Alkaline Phosphatase Total Protein Albumin Globulin Albumin/Globulin Ratio 04/14/17 04/14/17 04/14/17 04:26 06:17 06:17 WBC 20.6 H RBC 3.49 L Hgb 9.7 L Hct 28.6 L MCV 82.0 MCH 27.8 MCHC 33.9 RDW 15.3 H Plt Count 274 MPV 8.2 Neut % (Auto) 85.3 H Lymph % (Auto) 8.3 L [place] % (Auto) 6.1 Eos % (Auto) 0.1 Baso % (Auto) 0.2 Neut # 17.5 H Lymph # 1.7 [place] # 1.3 H Eos # 0.0 Baso # 0.0 Neutrophils % (Manual) 91 H Lymphocytes % (Manual) 6 L Monocytes % (Manual) 3 Platelet Estimate Normal Sodium 129 L Potassium 3.8 Chloride 99 Carbon Dioxide 21 L Anion Gap 13 BUN 14 Creatinine 0.4 L Est GFR ( Amer) > 60 Est GFR (Non-Af Amer) > 60 POC Glucose (mg/dL) 166 H Random Glucose 134 H Lactic Acid Calcium 9.1 Phosphorus 3.0 Magnesium 1.5 L Total Bilirubin 0.6 AST 21 ALT 28 Alkaline Phosphatase 94 Total Protein 5.9 L Albumin 2.2 L Globulin 3.7 Albumin/Globulin Ratio 0.6 L 04/14/17 11:44 WBC RBC Hgb Hct MCV MCH MCHC RDW Plt Count MPV Neut % (Auto) Lymph % (Auto) [place] % (Auto) Eos % (Auto) Baso % (Auto) Neut # Lymph # [place] # Eos # Baso # Neutrophils % (Manual) Lymphocytes % (Manual) Monocytes % (Manual) Platelet Estimate Sodium Potassium Chloride Carbon Dioxide Anion Gap BUN Creatinine Est GFR ( Amer) Est GFR (Non-Af Amer) POC Glucose (mg/dL) 260 H Random Glucose Lactic Acid Calcium Phosphorus Magnesium Total Bilirubin AST ALT Alkaline Phosphatase Total Protein Albumin Globulin Albumin/Globulin Ratio Fingerstick Blood Sugar Results: 260 Review of Systems - Constitutional Constitutional: Weakness. absent: Fever, Chills, Sweats - EENT Eyes: absent: Blurred Vision, Change in Vision Ears: absent: Dizziness - Cardiovascular Cardiovascular: absent: Chest Pain, Dyspnea, Lightheadedness, Palpitations, Syncope - Respiratory Respiratory: absent: Dyspnea - Gastrointestinal Gastrointestinal: Abdominal Pain (Moderate tenderness, S/p Surgical procedure ) , Nausea, Vomiting - Genitourinary Additional comments: Bilateral nephrostomy tube in place - Neurological Neurological: Weakness. absent: Dizziness, Headaches - Endocrine Endocrine: Fatigue. 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 Patient was noted to be hypotensive in the PACU. ICU admission to monitor for hypotension Plan: Neuro: Alert, awake, and responsive Cardio: No acute issues Pulm: No acute issues GI: colovesicula fistula and foreign body s/p exploratory laparotomy, small bowel resection x2, bladder repair, appendectomy, ileostomy POD#2 Medication: * Morphine 4mg IVP Q4 PRN for pain control * Tylenol 650mg PO Q4 PRN Endo: Accuchecks ISS high dose protocol Vascular: Hypotension ( Resolved) * NS @ 75mls/hr : Bilateral nephrostomy tube in place. ID: Leukocytosis and Bands (25), UC: Klebisella Pneumoniae Medications: * Primaxin 500mg IVPB Q6H Prophylaxis: DVT: SCDs, heparin 5,000 units SC Q12H GI: Protonix 40mg IV daily Bacid acidophilus 1 cap PO daily Vitamin C 500mg PO daily Magnesium 400mg PO daily Zofran 4mg IV Q4 PRN Zinc 220mg PO daily Tolerating clear liquid diet <Joey Gutierrez - Last Filed: 04/14/17 17:05> CCU Objective - Vital Signs / Intake & Output Vital Signs (Last 4 hours): Vital Signs Pulse Resp BP Pulse Ox 04/14/17 14:00 116 H 21 100 04/14/17 13:50 117 H 22 100 04/14/17 13:45 118 H 23 112/62 100 04/14/17 13:40 115 H 20 100 04/14/17 13:30 116 H 19 100 04/14/17 13:20 119 H 24 100 04/14/17 13:10 116 H 21 100 Intake and Output (Last 8hrs): Intake & Output 04/14/17 04/14/17 04/14/17 06:59 14:59 22:59 Intake Total 625 1275 Output Total 765 565 Balance -140 710 Weight 95 lb Intake: Intake, IV Amount 625 825 Right Forearm 550 Right Internal Jugular 625 75 Right Wrist 200 Oral 450 Output: Drainage 765 565 Fransisco tube to Mckeon 500 500 Left 100 Left Abdomen 40 40 Right 100 Right Abdomen 25 25 - Medications Active Medications: Active Medications Generic Name Dose Route Start Last Admin Trade Name Freq PRN Reason Stop Dose Admin Acetaminophen 650 mg 04/04/17 22:01 Tylenol 325mg Tab PO Q4 PRN Fever >100.4 F Ascorbic Acid 500 mg 04/05/17 10:00 04/14/17 09:00 Vitamin C 500 Mg Tab PO Not Given DAILY [facility] Heparin Sodium (Porcine) 5,000 units 04/13/17 22:00 04/14/17 10:51 Heparin SC 5,000 units Q12 VISHNU Administration BUPIVACAINE 0.125%/0.9% NACL 600 mls @ 6 mls/hr 04/12/17 14:45 04/12/17 14:45 Bupivacaine-Ns 0.125% On-Q Forensic Photographer IJ 04/16/17 18:44 28 mls ONCE ONE Administration Sodium Chloride 1,000 mls @ 75 mls/hr 04/13/17 12:45 04/14/17 05:00 Sodium Chloride 0.9% IV 75 mls/hr .[id number] VISHNU Administration Tigecycline 100 mg/ Dextrose 100 mls @ 100 mls/hr 04/14/17 16:36 IVPB 04/14/17 17:35 ONCE ONE Tigecycline 50 mg/ Sodium 100 mls @ 100 mls/hr 04/15/17 17:00 Chloride IVPB Q12H [facility] Insulin Aspart 0 unit 04/14/17 11:45 04/14/17 11:59 Novolog SC 6 unit ACHS VISHNU Administration Protocol Lactobacillus Acidophilus 1 cap 04/05/17 10:00 04/14/17 09:00 Bacid Acidophilus PO Not Given DAILY [facility] Magnesium Oxide 400 mg 04/05/17 10:00 04/14/17 09:00 Mag-Ox PO Not Given DAILY [facility] Morphine Sulfate 4 mg 04/13/17 11:13 04/14/17 16:05 Morphine IVP 4 mg Q4 PRN Administration Pain, moderate (4-7) Ondansetron HCl 4 mg 04/06/17 12:06 04/14/17 08:19 Zofran Inj IVP 4 mg Q4 PRN Administration Nausea/Vomiting Pantoprazole Sodium 40 mg 04/13/17 13:00 04/14/17 09:36 Protonix Inj IVP 40 mg DAILY [facility] Administration Zinc Sulfate 220 mg 04/05/17 10:00 04/14/17 09:00 Zinc Sulfate 220 Mg Cap PO Not Given DAILY [facility] - Patient Studies Lab Studies: Microbiology Studies 04/05/17 21:37 Urine Culture - Final Urine,Kidney Klebsiella Pneumoniae Ssp Pneu 04/13/17 10:15 Blood Culture - Preliminary Blood-Venous NO GROWTH AFTER 24 HOURS 04/13/17 10:15 Blood Culture - Preliminary Blood-Venous NO GROWTH AFTER 24 HOURS 04/12/17 14:04 Gram Stain - Final Umbilicus Wound Culture - Preliminary No growth. 04/14/17 08:13 Gram Stain - Preliminary Peritoneal Fluid 04/14/17 08:32 Gram Stain - Final Body Fluid - Abdominal 04/12/17 17:44 MRSA Culture (Admit) - Final Nose MRSA NOT DETECTED Lab Studies 04/14/17 04/14/17 04/14/17 Range/Units 16:19 11:44 06:17 WBC (4.8-10.8) K/uL RBC (3.80-5.20) Mil/uL Hgb (11.0-16.0) g/dL Hct (34.0-47.0) % MCV (81.0-99.0) fL MCH (27.0-31.0) pg MCHC (33.0-37.0) g/dL RDW (11.5-14.5) % Plt Count (130-400) K/uL MPV (7.2-11.7) fL Neut % (Auto) (50.0-75.0) % Lymph % (Auto) (20.0-40.0) % [place] % (Auto) (0.0-10.0) % Eos % (Auto) (0.0-4.0) % Baso % (Auto) (0.0-2.0) % Neut # (1.8-7.0) K/uL Lymph # (1.0-4.3) K/uL [place] # (0.0-0.8) K/uL Eos # (0.0-0.7) K/uL Baso # (0.0-0.2) K/uL Neutrophils % (Manual) (50-75) % Lymphocytes % (Manual) (20-40) % Monocytes % (Manual) (0-10) % Platelet Estimate (NORMAL) Sodium 129 L (132-148) mmol/L Potassium 3.8 (3.6-5.2) mmol/L Chloride 99 (98-107) mmol/L Carbon Dioxide 21 L (22-30) mmol/L Anion Gap 13 (10-20) BUN 14 (7-17) mg/dL Creatinine 0.4 L (0.7-1.2) mg/dL Est GFR ( Amer) > 60 Est GFR (Non-Af Amer) > 60 POC Glucose (mg/dL) 219 H 260 H (65-110) mg/dL Random Glucose 134 H (65-105) mg/dL Calcium 9.1 (8.6-10.4) mg/dl Phosphorus 3.0 (2.5-4.5) mg/dL Magnesium 1.5 L (1.6-2.3) mg/dL Total Bilirubin 0.6 (0.2-1.3) mg/dL AST 21 (14-36) U/L ALT 28 (9-52) U/L Alkaline Phosphatase 94 (38-126) U/L Total Protein 5.9 L (6.3-8.3) g/dL Albumin 2.2 L (3.5-5.0) g/dL Globulin 3.7 (2.2-3.9) gm/dL Albumin/Globulin Ratio 0.6 L (1.0-2.1) 04/14/17 04/14/17 04/13/17 Range/Units 06:17 04:26 21:11 WBC 20.6 H (4.8-10.8) K/uL RBC 3.49 L (3.80-5.20) Mil/uL Hgb 9.7 L (11.0-16.0) g/dL Hct 28.6 L (34.0-47.0) % MCV 82.0 (81.0-99.0) fL MCH 27.8 (27.0-31.0) pg MCHC 33.9 (33.0-37.0) g/dL RDW 15.3 H (11.5-14.5) % Plt Count 274 (130-400) K/uL MPV 8.2 (7.2-11.7) fL Neut % (Auto) 85.3 H (50.0-75.0) % Lymph % (Auto) 8.3 L (20.0-40.0) % [place] % (Auto) 6.1 (0.0-10.0) % Eos % (Auto) 0.1 (0.0-4.0) % Baso % (Auto) 0.2 (0.0-2.0) % Neut # 17.5 H (1.8-7.0) K/uL Lymph # 1.7 (1.0-4.3) K/uL [place] # 1.3 H (0.0-0.8) K/uL Eos # 0.0 (0.0-0.7) K/uL Baso # 0.0 (0.0-0.2) K/uL Neutrophils % (Manual) 91 H (50-75) % Lymphocytes % (Manual) 6 L (20-40) % Monocytes % (Manual) 3 (0-10) % Platelet Estimate Normal (NORMAL) Sodium (132-148) mmol/L Potassium (3.6-5.2) mmol/L Chloride (98-107) mmol/L Carbon Dioxide (22-30) mmol/L Anion Gap (10-20) BUN (7-17) mg/dL Creatinine (0.7-1.2) mg/dL Est GFR ( Amer) Est GFR (Non-Af Amer) POC Glucose (mg/dL) 166 H 210 H (65-110) mg/dL Random Glucose (65-105) mg/dL Calcium (8.6-10.4) mg/dl Phosphorus (2.5-4.5) mg/dL Magnesium (1.6-2.3) mg/dL Total Bilirubin (0.2-1.3) mg/dL AST (14-36) U/L ALT (9-52) U/L Alkaline Phosphatase (38-126) U/L Total Protein (6.3-8.3) g/dL Albumin (3.5-5.0) g/dL Globulin (2.2-3.9) gm/dL Albumin/Globulin Ratio (1.0-2.1) Laboratory Results - last 24 hr 04/13/17 04/14/17 04/14/17 21:11 04:26 06:17 WBC 20.6 H RBC 3.49 L Hgb 9.7 L Hct 28.6 L MCV 82.0 MCH 27.8 MCHC 33.9 RDW 15.3 H Plt Count 274 MPV 8.2 Neut % (Auto) 85.3 H Lymph % (Auto) 8.3 L [place] % (Auto) 6.1 Eos % (Auto) 0.1 Baso % (Auto) 0.2 Neut # 17.5 H Lymph # 1.7 [place] # 1.3 H Eos # 0.0 Baso # 0.0 Neutrophils % (Manual) 91 H Lymphocytes % (Manual) 6 L Monocytes % (Manual) 3 Platelet Estimate Normal Sodium Potassium Chloride Carbon Dioxide Anion Gap BUN Creatinine Est GFR ( Amer) Est GFR (Non-Af Amer) POC Glucose (mg/dL) 210 H 166 H Random Glucose Calcium Phosphorus Magnesium Total Bilirubin AST ALT Alkaline Phosphatase Total Protein Albumin Globulin Albumin/Globulin Ratio 04/14/17 04/14/17 04/14/17 06:17 11:44 16:19 WBC RBC Hgb Hct MCV MCH MCHC RDW Plt Count MPV Neut % (Auto) Lymph % (Auto) [place] % (Auto) Eos % (Auto) Baso % (Auto) Neut # Lymph # [place] # Eos # Baso # Neutrophils % (Manual) Lymphocytes % (Manual) Monocytes % (Manual) Platelet Estimate Sodium 129 L Potassium 3.8 Chloride 99 Carbon Dioxide 21 L Anion Gap 13 BUN 14 Creatinine 0.4 L Est GFR ( Amer) > 60 Est GFR (Non-Af Amer) > 60 POC Glucose (mg/dL) 260 H 219 H Random Glucose 134 H Calcium 9.1 Phosphorus 3.0 Magnesium 1.5 L Total Bilirubin 0.6 AST 21 ALT 28 Alkaline Phosphatase 94 Total Protein 5.9 L Albumin 2.2 L Globulin 3.7 Albumin/Globulin Ratio 0.6 L Critical Care Progress Note - Nutrition Nutrition: Nutrition Category Date Time Status Regular Diet [DIET] Diets 04/14/17 Lunch Active Attending/Attestation - Attestation I have personally seen and examined this patient.: Yes I have fully participated in the care of the patient.: Yes I have reviewed all pertinent clinical information: Yes Notes (Text): 04/14/17 17:03 I have seen and examined the patient. Medical records, lab studies, and imaging were reviewed by me and a management plan was formulated on multidisciplinary rounds with resident Dr. Doran. I agree with their above documented assessment and plan. Patient is clinically stable. WBC still rising. Patient's urine still murky appearing. Discussed with ID - Dr. Cutler, changing abx to Tygacil. Adding prostat tid to diet. Critical Care Time 35 minutes. Multi-disciplinary rounds were performed with house staff, nursing, speech therapy, respiratory therapy, pharmacy and nutrition with integrated input from the primary team/attending and other consulting services. The documented time is cumulative and includes review of patient data/exams/labs/chart review and examination of the patient on rounds and throughout the day; time is exclusive of any procedures or teaching time.
[2017-04-14] MEDS ORDERED: Tigecycline 100 MG in Dextrose 5% In Water 100 ML IVPB ONE (16:36)
--- NOTE | 2017-04-14 17:06 | CP.PCM.PN ---
Subjective - Date & Time of Evaluation Date of Evaluation: 04/14/17 Time of Evaluation: 07:00 - Subjective Subjective: wbc trending up weak nad s/p exploratory laparotomy, small bowel resection x2, bladder repair, appendectomy, ileostomy POD#2 Objective - Vital Signs/Intake and Output Vital Signs (last 24 hours): Temp Pulse Resp BP Pulse Ox 98.9 F 116 H 21 112/62 100 04/14/17 12:00 04/14/17 14:00 04/14/17 14:00 04/14/17 13:45 04/14/17 14:00 Intake and Output: 04/14/17 04/14/17 06:59 18:59 Intake Total 1025 1275 Output Total 765 565 Balance 260 710 - Medications Medications: Current Medications Acetaminophen (Tylenol 325mg Tab) 650 mg PO Q4 PRN PRN Reason: Fever >100.4 F Ascorbic Acid (Vitamin C 500 Mg Tab) 500 mg PO DAILY [facility] Last Admin: 04/14/17 09:00 Dose: Not Given Heparin Sodium (Porcine) (Heparin) 5,000 units SC Q12 [facility] Last Admin: 04/14/17 10:51 Dose: 5,000 units BUPIVACAINE 0.125%/0.9% NACL (Bupivacaine-Ns 0.125% On-Q Agriculture Instructor) 600 mls @ 6 mls/ hr IJ ONCE ONE Stop: 04/16/17 18:44 Last Admin: 04/12/17 14:45 Dose: 28 mls Sodium Chloride (Sodium Chloride 0.9%) 1,000 mls @ 75 mls/hr IV .[id number] [facility] Last Admin: 04/14/17 05:00 Dose: 75 mls/hr Tigecycline 100 mg/ Dextrose 100 mls @ 100 mls/hr IVPB ONCE ONE Stop: 04/14/17 17:35 Tigecycline 50 mg/ Sodium (Chloride) 100 mls @ 100 mls/hr IVPB Q12H [facility] Insulin Aspart (Novolog) 0 unit SC ACHS [facility] PRN Reason: Protocol Last Admin: 04/14/17 11:59 Dose: 6 unit Lactobacillus Acidophilus (Bacid Acidophilus) 1 cap PO DAILY [facility] Last Admin: 04/14/17 09:00 Dose: Not Given Magnesium Oxide (Mag-Ox) 400 mg PO DAILY [facility] Last Admin: 04/14/17 09:00 Dose: Not Given Morphine Sulfate (Morphine) 4 mg IVP Q4 PRN PRN Reason: Pain, moderate (4-7) Last Admin: 04/14/17 16:05 Dose: 4 mg Ondansetron HCl (Zofran Inj) 4 mg IVP Q4 PRN PRN Reason: Nausea/Vomiting Last Admin: 04/14/17 08:19 Dose: 4 mg Pantoprazole Sodium (Protonix Inj) 40 mg IVP DAILY [facility] Last Admin: 04/14/17 09:36 Dose: 40 mg Zinc Sulfate (Zinc Sulfate 220 Mg Cap) 220 mg PO DAILY [facility] Last Admin: 04/14/17 09:00 Dose: Not Given - Labs Labs: 04/14/17 06:17 04/14/17 06:17 PT 11.9 SECONDS (9.7-12.2) 04/13/17 06:28 INR 1.1 04/13/17 06:28 APTT 27 SECONDS (21-34) 04/13/17 06:28 - Constitutional Appears: Non-toxic, Cachectic, Chronically Ill - Head Exam Head Exam: NORMOCEPHALIC - Eye Exam Eye Exam: PERRL - ENT Exam ENT Exam: Mucous Membranes Dry - Neck Exam Neck Exam: absent: Lymphadenopathy - Respiratory Exam Respiratory Exam: Decreased Breath Sounds - Cardiovascular Exam Cardiovascular Exam: REGULAR RHYTHM - GI/Abdominal Exam GI & Abdominal Exam: Distended, Soft - Rectal Exam Rectal Exam: Deferred - Extremities Exam Extremities Exam: absent: Pedal Edema - Back Exam Back Exam: absent: CVA tenderness (L), CVA tenderness (R) - Neurological Exam Neurological Exam: Alert, Awake - Psychiatric Exam Psychiatric exam: Normal Mood - Skin Skin Exam: Dry Assessment and Plan (1) Colonic fistula Status: Acute (2) Displacement of Mckeon catheter Status: Acute - Assessment and Plan (Free Text) Assessment: s/p exploratory laparotomy, small bowel resection x2, bladder repair, appendectomy, ileostomy POD#2 wbc trending up recultured tygacil added for possible CRE
--- NOTE | 2017-04-14 19:04 | CP.PCM.PN ---
Subjective - Date & Time of Evaluation Date of Evaluation: 04/14/17 Time of Evaluation: 12:40 - Subjective Subjective: clinically same Objective - Vital Signs/Intake and Output Vital Signs (last 24 hours): Temp Pulse Resp BP Pulse Ox 99.4 F 113 H 19 96/61 L 100 04/14/17 16:00 04/14/17 18:00 04/14/17 18:00 04/14/17 18:00 04/14/17 18:00 Intake and Output: 04/14/17 04/15/17 18:59 06:59 Intake Total 1925 Output Total 1205 Balance 720 - Medications Medications: Current Medications Acetaminophen (Tylenol 325mg Tab) 650 mg PO Q4 PRN PRN Reason: Fever >100.4 F Ascorbic Acid (Vitamin C 500 Mg Tab) 500 mg PO DAILY [facility] Last Admin: 04/14/17 09:00 Dose: Not Given Heparin Sodium (Porcine) (Heparin) 5,000 units SC Q12 [facility] Last Admin: 04/14/17 10:51 Dose: 5,000 units BUPIVACAINE 0.125%/0.9% NACL (Bupivacaine-Ns 0.125% On-Q Sales Engineer Account Manager) 600 mls @ 6 mls/ hr IJ ONCE ONE Stop: 04/16/17 18:44 Last Admin: 04/12/17 14:45 Dose: 28 mls Sodium Chloride (Sodium Chloride 0.9%) 1,000 mls @ 75 mls/hr IV .[id number] [facility] Last Admin: 04/14/17 05:00 Dose: 75 mls/hr Tigecycline 50 mg/ Sodium (Chloride) 100 mls @ 100 mls/hr IVPB Q12H [facility] Insulin Aspart (Novolog) 0 unit SC ACHS [facility] PRN Reason: Protocol Last Admin: 04/14/17 17:11 Dose: 4 unit Lactobacillus Acidophilus (Bacid Acidophilus) 1 cap PO DAILY [facility] Last Admin: 04/14/17 09:00 Dose: Not Given Magnesium Oxide (Mag-Ox) 400 mg PO DAILY [facility] Last Admin: 04/14/17 09:00 Dose: Not Given Morphine Sulfate (Morphine) 4 mg IVP Q4 PRN PRN Reason: Pain, moderate (4-7) Last Admin: 04/14/17 16:05 Dose: 4 mg Ondansetron HCl (Zofran Inj) 4 mg IVP Q4 PRN PRN Reason: Nausea/Vomiting Last Admin: 04/14/17 18:28 Dose: 4 mg Pantoprazole Sodium (Protonix Inj) 40 mg IVP DAILY [facility] Last Admin: 04/14/17 09:36 Dose: 40 mg Zinc Sulfate (Zinc Sulfate 220 Mg Cap) 220 mg PO DAILY [facility] Last Admin: 04/14/17 09:00 Dose: Not Given - Labs Labs: 04/14/17 06:17 04/14/17 06:17 PT 11.9 SECONDS (9.7-12.2) 04/13/17 06:28 INR 1.1 04/13/17 06:28 APTT 27 SECONDS (21-34) 04/13/17 06:28 - Constitutional Appears: Well - Head Exam Head Exam: ATRAUMATIC, NORMAL INSPECTION, NORMOCEPHALIC - Eye Exam Eye Exam: EOMI, Normal appearance, PERRL Pupil Exam: NORMAL ACCOMODATION, PERRL - ENT Exam ENT Exam: Mucous Membranes Moist, Normal Exam - Neck Exam Neck Exam: Full ROM, Normal Inspection. absent: Lymphadenopathy - Respiratory Exam Respiratory Exam: Decreased Breath Sounds - Cardiovascular Exam Cardiovascular Exam: REGULAR RHYTHM, +S1, +S2 - GI/Abdominal Exam GI & Abdominal Exam: Soft, Diminished Bowel Sounds - Rectal Exam Rectal Exam: Deferred - Back Exam Back Exam: NORMAL INSPECTION - Neurological Exam Neurological Exam: Alert, Awake, CN II-XII Intact, Normal Gait, Oriented x3 - Psychiatric Exam Psychiatric exam: Normal Affect, Normal Mood - Skin Skin Exam: Dry, Intact, Normal Color, Warm Assessment and Plan (1) Colonic fistula Status: Acute (2) Displacement of Mckeon catheter Status: Acute - Assessment and Plan (Free Text) Plan: Patient extubated. Continued nausea and abdominal pain. Consider switching total parenteral nutrition.
[2017-04-15] MEDS: Sodium Chloride 0.9% 1,000 ML IV SCH ×3 (04:45→18:00)
[2017-04-15 07:25] LABS: BASO % 0.1 % (0.0-2.0); EOS # 0.1 K/uL (0.0-0.7); EOS % 0.6 % (0.0-4.0); HEMATOCRIT 28.4 % (34.0-47.0); LYMPH # 1.8 K/uL (1.0-4.3); LYMPH % 11.1 % (20.0-40.0); MEAN CELL VOLUME 82.5 fL (81.0-99.0); MEAN CORPUSCULAR HEMOGLOBIN 27.9 pg (27.0-31.0); MEAN CORPUSCULAR HGB CONC 33.8 g/dL (33.0-37.0); MEAN PLATELET VOLUME 8.3 fL (7.2-11.7); MONO # 1.1 K/uL (0.0-0.8); MONO % 6.9 % (0.0-10.0); RED CELL DISTRIBUTION WIDTH 15.2 % (11.5-14.5)
[2017-04-15] MEDS: (Novolog) Insulin Aspart, Recombinant 100 u/ml 10 ml vial SC SCH ×4 (07:30→21:38)
[2017-04-15 07:32] LABS: CHLORIDE 99 mmol/L (98-107)
[2017-04-15 07:33] LABS: POTASSIUM 2.9 mmol/L (3.6-5.2); SODIUM 129 mmol/L (132-148)
[2017-04-15 07:35] LABS: ALB/GLOB RATIO 0.6 (1.0-2.1); ALKALINE PHOSPHATASE 109 U/L (38-126); AST/SGOT 19 U/L (14-36); BILIRUBIN,TOTAL 0.4 mg/dL (0.2-1.3); BLOOD UREA NITROGEN 17 mg/dL (7-17); CARBON DIOXIDE 22 mmol/L (22-30); GFR AFRICAN-AMERICAN > 60; TOTAL PROTEIN 5.7 g/dL (6.3-8.3)
[2017-04-15 07:36] LABS: ALT/SGPT 29 U/L (9-52); GLUCOSE,RANDOM 135 mg/dL (65-105); PHOSPHOROUS 2.8 mg/dL (2.5-4.5)
[2017-04-15 07:37] LABS: CALCIUM 8.3 mg/dl (8.6-10.4)
[2017-04-15 07:40] LABS: MAGNESIUM 1.6 mg/dL (1.6-2.3)
--- NOTE | 2017-04-15 07:50 | CP.PCM.PN ---
<DeoZari - Last Filed: 04/15/17 10:58> Subjective - Date & Time of Evaluation Date of Evaluation: 04/15/17 Time of Evaluation: 07:00 - Subjective Subjective: General Surgery Dr. Cabral Pt S&E @bedside. NAEO. pain controlled. tolerating diet. Objective - Vital Signs/Intake and Output Vital Signs (last 24 hours): Temp Pulse Resp BP Pulse Ox 98.8 F 122 H 18 110/53 L 100 04/15/17 00:00 04/15/17 00:02 04/15/17 00:02 04/14/17 20:00 04/15/17 00:02 Intake and Output: 04/15/17 04/15/17 06:59 18:59 Intake Total 650 Balance 650 - Medications Medications: Current Medications Acetaminophen (Tylenol 325mg Tab) 650 mg PO Q4 PRN PRN Reason: Fever >100.4 F Ascorbic Acid (Vitamin C 500 Mg Tab) 500 mg PO DAILY [facility] Last Admin: 04/14/17 09:00 Dose: Not Given Heparin Sodium (Porcine) (Heparin) 5,000 units SC Q12 [facility] Last Admin: 04/14/17 22:14 Dose: 5,000 units BUPIVACAINE 0.125%/0.9% NACL (Bupivacaine-Ns 0.125% On-Q Operator Engineer) 600 mls @ 6 mls/ hr IJ ONCE ONE Stop: 04/16/17 18:44 Last Admin: 04/12/17 14:45 Dose: 28 mls Sodium Chloride (Sodium Chloride 0.9%) 1,000 mls @ 75 mls/hr IV .[id number] [facility] Last Admin: 04/15/17 04:45 Dose: Not Given Tigecycline 50 mg/ Sodium (Chloride) 100 mls @ 100 mls/hr IVPB Q12H [facility] Insulin Aspart (Novolog) 0 unit SC ACHS [facility] PRN Reason: Protocol Last Admin: 04/14/17 22:00 Dose: Not Given Lactobacillus Acidophilus (Bacid Acidophilus) 1 cap PO DAILY [facility] Last Admin: 04/14/17 09:00 Dose: Not Given Magnesium Oxide (Mag-Ox) 400 mg PO DAILY [facility] Last Admin: 04/14/17 09:00 Dose: Not Given Morphine Sulfate (Morphine) 4 mg IVP Q4 PRN PRN Reason: Pain, moderate (4-7) Last Admin: 04/14/17 16:05 Dose: 4 mg Ondansetron HCl (Zofran Inj) 4 mg IVP Q4 PRN PRN Reason: Nausea/Vomiting Last Admin: 04/14/17 18:28 Dose: 4 mg Pantoprazole Sodium (Protonix Inj) 40 mg IVP DAILY [facility] Last Admin: 04/14/17 09:36 Dose: 40 mg Zinc Sulfate (Zinc Sulfate 220 Mg Cap) 220 mg PO DAILY [facility] Last Admin: 04/14/17 09:00 Dose: Not Given - Labs Labs: 04/15/17 07:20 04/15/17 07:20 PT 11.9 SECONDS (9.7-12.2) 04/13/17 06:28 INR 1.1 04/13/17 06:28 APTT 27 SECONDS (21-34) 04/13/17 06:28 - Constitutional Appears: Non-toxic, No Acute Distress - Head Exam Head Exam: NORMAL INSPECTION - Eye Exam Eye Exam: Normal appearance - ENT Exam ENT Exam: Mucous Membranes Moist - Respiratory Exam Respiratory Exam: NORMAL BREATHING PATTERN. absent: Accessory Muscle Use, Respiratory Distress - Cardiovascular Exam Cardiovascular Exam: Tachycardia, REGULAR RHYTHM - GI/Abdominal Exam GI & Abdominal Exam: Soft, Tenderness (brandt-incisional TTP). absent: Firm, Guarding, Rigid, Rebound Additional comments: dressing c/d/i saad w/ serosang output nephrostomy tubes w/ clear yellow urine onQ in place, empty - Exam Additional comments: gonzalez draining serous fluid - Extremities Exam Extremities Exam: Normal Inspection - Neurological Exam Neurological Exam: Alert, Awake - Psychiatric Exam Psychiatric exam: Normal Affect, Normal Mood - Skin Skin Exam: Dry, Normal Color, Warm Assessment and Plan - Assessment and Plan (Free Text) Assessment: 61 y/oF POD# 3 s/p small bowel resention x2, bladder repair, ileostomy - improved leukocytosis - continue to monitor - f/u fluid cultures - cont pain management - Replace OnQ - cont soft diet. - replete electrolytes - cont medical management pe ICU Pt discussed w/ Dr. Misha Desouza DO PGY2 <Sumeet Cabral - Last Filed: 04/16/17 17:19> Objective - Vital Signs/Intake and Output Vital Signs (last 24 hours): Temp Pulse Resp BP Pulse Ox 98.9 F 100 H 20 136/78 100 04/16/17 16:00 04/16/17 17:00 04/16/17 17:00 04/16/17 17:00 04/16/17 17:00 Intake and Output: 04/16/17 04/16/17 06:59 18:59 Intake Total 1145 850 Output Total 1870 1325 Balance -725 -475 - Medications Medications: Current Medications Acetaminophen (Tylenol 325mg Tab) 650 mg PO Q4 PRN PRN Reason: Fever >100.4 F Ascorbic Acid (Vitamin C 500 Mg Tab) 500 mg PO DAILY [facility] Last Admin: 04/16/17 09:45 Dose: 500 mg Heparin Sodium (Porcine) (Heparin) 5,000 units SC Q12 [facility] Last Admin: 04/16/17 09:43 Dose: 5,000 units Tigecycline 50 mg/ Sodium (Chloride) 100 mls @ 100 mls/hr IVPB Q12H [facility] Last Admin: 04/16/17 05:28 Dose: 100 mls/hr BUPIVACAINE 0.125%/0.9% NACL (Bupivacaine-Ns 0.125% On-Q Operator Engineer) 600 mls @ 4 mls/ hr IJ ONCE ONE Stop: 04/21/17 16:56 Last Admin: 04/15/17 20:00 Dose: 4 mls/hr Fluconazole (Diflucan Iv 100 Mg/50 Ml Ns) 50 mls @ 50 mls/hr IVPB Q24H [facility] Last Admin: 04/16/17 10:03 Dose: 50 mls/hr Insulin Aspart (Novolog) 0 unit SC ACHS [facility] PRN Reason: Protocol Last Admin: 04/16/17 12:00 Dose: 6 unit Lactobacillus Acidophilus (Bacid Acidophilus) 1 cap PO DAILY [facility] Last Admin: 04/16/17 09:44 Dose: 1 cap Magnesium Oxide (Mag-Ox) 400 mg PO DAILY [facility] Last Admin: 04/16/17 09:45 Dose: 400 mg Morphine Sulfate (Morphine) 4 mg IVP Q4 PRN PRN Reason: Pain, severe (8-10) Ondansetron HCl (Zofran Inj) 4 mg IVP Q4 PRN PRN Reason: Nausea/Vomiting Last Admin: 04/15/17 17:55 Dose: 4 mg Oxycodone/Acetaminophen (Percocet 5/325 Mg Tab) 1 tab PO Q4H PRN PRN Reason: Pain, moderate (4-7) Stop: 04/19/17 07:50 Pantoprazole Sodium (Protonix Inj) 40 mg IVP DAILY [facility] Last Admin: 04/16/17 09:43 Dose: 40 mg Zinc Sulfate (Zinc Sulfate 220 Mg Cap) 220 mg PO DAILY [facility] Last Admin: 04/16/17 09:44 Dose: 220 mg - Labs Labs: 04/16/17 06:29 04/16/17 06:29 PT 11.9 SECONDS (9.7-12.2) 04/13/17 06:28 INR 1.1 04/13/17 06:28 APTT 27 SECONDS (21-34) 04/13/17 06:28 Attending/Attestation - Attestation I have fully participated in the care of the patient.: Yes I have reviewed all pertinent clinical information, including history, physical exam and plan: Yes Notes (Text): 04/16/17 17:19 Pt is improving clinically C/w IV antibiotics Reg high protein diet OOB to chair.
--- NOTE | 2017-04-15 09:32 | CP.CCUPN ---
CCU Subjective - Physician Review Events Since Last Encounter (Free Text): 04/15/17 09:32 61-year-old female underwent a laparotomy, fixation of vesicular colonic fistula. Improved. Clinically stable. Awake and responding. Low-sodium level noted. We'll continue the current management. The Cancer to the Floor. Supplementation of the Potassium Level. Monitor the Urine Output. CCU Objective - Vital Signs / Intake & Output Vital Signs (Last 4 hours): Vital Signs Pulse Resp BP Pulse Ox 04/15/17 09:00 104 H 21 100 04/15/17 08:40 117 H 20 120/63 100 04/15/17 08:00 104 H 19 100 04/15/17 07:40 101 H 17 115/68 100 04/15/17 07:00 103 H 18 96 04/15/17 06:40 108 H 13 112/65 100 04/15/17 06:00 112 H 20 100 04/15/17 05:40 110 H 19 135/73 100 Intake and Output (Last 8hrs): Intake & Output 04/14/17 04/15/17 04/15/17 22:59 06:59 14:59 Intake Total 1050 725 150 Output Total 240 2300 Balance 810 -1575 150 Weight 96 lb 0.1 oz Intake: Intake, IV Amount 650 625 150 Left Forearm 475 625 150 Right Forearm 175 Oral 400 100 0 Output: Drainage 240 1450 [place] tube to Mckeon 850 Left 150 350 Left Abdomen 20 40 Right 20 60 Right Abdomen 50 150 Urine 850 Urethral (Mckeon) 850 - Physical Exam Head: Positive for: Atraumatic, Normocephalic Extroacular Muscles: Positive for: EOMI Respiratory/Chest: Positive for: Clear to Auscultation, Good Air Exchange. Negative for: Respiratory Distress Cardiovascular: Positive for: Regular Rate and Rhythm, Normal S1, S2 Abdomen: Positive for: Tenderness, Normal Bowel Sounds, Other (dresssing in C/D/ I ). Negative for: Distention, Peritoneal Signs Upper Extremity: Positive for: Normal Inspection. Negative for: Cyanosis, Edema Lower Extremity: Positive for: Normal Inspection. Negative for: Edema Neurological: Positive for: GCS=15, Speech Normal Skin: Positive for: Warm, Normal Color Psychiatric: Positive for: Alert, Oriented x 3 - Medications Active Medications: Active Medications Generic Name Dose Route Start Last Admin Trade Name Freq PRN Reason Stop Dose Admin Acetaminophen 650 mg 04/04/17 22:01 Tylenol 325mg Tab PO Q4 PRN Fever >100.4 F Ascorbic Acid 500 mg 04/05/17 10:00 04/14/17 09:00 Vitamin C 500 Mg Tab PO Not Given DAILY [facility] Heparin Sodium (Porcine) 5,000 units 04/13/17 22:00 04/14/17 22:14 Heparin SC 5,000 units Q12 [facility] Administration BUPIVACAINE 0.125%/0.9% NACL 600 mls @ 6 mls/hr 04/12/17 14:45 04/12/17 14:45 Bupivacaine-Ns 0.125% On-Q Director Supplier Quality IJ 04/16/17 18:44 28 mls ONCE ONE Administration Sodium Chloride 1,000 mls @ 75 mls/hr 04/13/17 12:45 04/15/17 04:45 Sodium Chloride 0.9% IV Not Given .[id number] [facility] Tigecycline 50 mg/ Sodium 100 mls @ 100 mls/hr 04/15/17 06:00 04/15/17 06:00 Chloride IVPB 100 mls/hr Q12H [facility] Administration Potassium Chloride 20 meq in 100 mls @ 50 mls/hr 04/15/17 10:00 04/15/17 09: 05 Potassium Chloride 20 Meq/100 Ml IVPB 04/15/17 15:59 50 mls/hr Q2 [facility] Administration Insulin Aspart 0 unit 04/14/17 11:45 04/14/17 22:00 Novolog SC Not Given ACHS [facility] Protocol Lactobacillus Acidophilus 1 cap 04/05/17 10:00 04/14/17 09:00 Bacid Acidophilus PO Not Given DAILY [facility] Magnesium Oxide 400 mg 04/05/17 10:00 04/14/17 09:00 Mag-Ox PO Not Given DAILY [facility] Morphine Sulfate 4 mg 04/13/17 11:13 04/14/17 16:05 Morphine IVP 4 mg Q4 PRN Administration Pain, moderate (4-7) Ondansetron HCl 4 mg 04/06/17 12:06 04/14/17 18:28 Zofran Inj IVP 4 mg Q4 PRN Administration Nausea/Vomiting Pantoprazole Sodium 40 mg 04/13/17 13:00 04/14/17 09:36 Protonix Inj IVP 40 mg DAILY [facility] Administration Zinc Sulfate 220 mg 04/05/17 10:00 04/14/17 09:00 Zinc Sulfate 220 Mg Cap PO Not Given DAILY [facility] - Patient Studies Lab Studies: Microbiology Studies 04/05/17 21:37 Urine Culture - Final Urine,Kidney Klebsiella Pneumoniae Ssp Pneu 04/13/17 10:15 Blood Culture - Preliminary Blood-Venous NO GROWTH AFTER 24 HOURS 04/13/17 10:15 Blood Culture - Preliminary Blood-Venous NO GROWTH AFTER 24 HOURS 04/12/17 14:04 Gram Stain - Final Umbilicus Wound Culture - Preliminary No growth. 04/14/17 08:13 Gram Stain - Preliminary Peritoneal Fluid 04/14/17 08:32 Gram Stain - Final Body Fluid - Abdominal Lab Studies 04/15/17 04/15/17 04/15/17 Range/Units 08:41 07:20 07:20 WBC 16.0 H (4.8-10.8) K/uL RBC 3.44 L (3.80-5.20) Mil/uL Hgb 9.6 L (11.0-16.0) g/dL Hct 28.4 L (34.0-47.0) % MCV 82.5 (81.0-99.0) fL MCH 27.9 (27.0-31.0) pg MCHC 33.8 (33.0-37.0) g/dL RDW 15.2 H (11.5-14.5) % Plt Count 318 (130-400) K/uL MPV 8.3 (7.2-11.7) fL Neut % (Auto) 81.3 H (50.0-75.0) % Lymph % (Auto) 11.1 L (20.0-40.0) % Sanders % (Auto) 6.9 (0.0-10.0) % Eos % (Auto) 0.6 (0.0-4.0) % Baso % (Auto) 0.1 (0.0-2.0) % Neut # 13.0 H (1.8-7.0) K/uL Lymph # 1.8 (1.0-4.3) K/uL Sanders # 1.1 H (0.0-0.8) K/uL Eos # 0.1 (0.0-0.7) K/uL Baso # 0.0 (0.0-0.2) K/uL Sodium 129 L (132-148) mmol/L Potassium 2.9 L (3.6-5.2) mmol/L Chloride 99 (98-107) mmol/L Carbon Dioxide 22 (22-30) mmol/L Anion Gap 11 (10-20) BUN 17 (7-17) mg/dL Creatinine 0.5 L (0.7-1.2) mg/dL Est GFR ( Amer) > 60 Est GFR (Non-Af Amer) > 60 POC Glucose (mg/dL) 164 H (65-110) mg/dL Random Glucose 135 H (65-105) mg/dL Calcium 8.3 L (8.6-10.4) mg/dl Phosphorus 2.8 (2.5-4.5) mg/dL Magnesium 1.6 (1.6-2.3) mg/dL Total Bilirubin 0.4 (0.2-1.3) mg/dL AST 19 (14-36) U/L ALT 29 (9-52) U/L Alkaline Phosphatase 109 (38-126) U/L Total Protein 5.7 L (6.3-8.3) g/dL Albumin 2.2 L (3.5-5.0) g/dL Globulin 3.5 (2.2-3.9) gm/dL Albumin/Globulin Ratio 0.6 L (1.0-2.1) Procalcitonin (0.19-0.49) NG/ML 04/14/17 04/14/17 04/14/17 Range/Units 21:40 17:44 16:19 WBC (4.8-10.8) K/uL RBC (3.80-5.20) Mil/uL Hgb (11.0-16.0) g/dL Hct (34.0-47.0) % MCV (81.0-99.0) fL MCH (27.0-31.0) pg MCHC (33.0-37.0) g/dL RDW (11.5-14.5) % Plt Count (130-400) K/uL MPV (7.2-11.7) fL Neut % (Auto) (50.0-75.0) % Lymph % (Auto) (20.0-40.0) % Sanders % (Auto) (0.0-10.0) % Eos % (Auto) (0.0-4.0) % Baso % (Auto) (0.0-2.0) % Neut # (1.8-7.0) K/uL Lymph # (1.0-4.3) K/uL Sanders # (0.0-0.8) K/uL Eos # (0.0-0.7) K/uL Baso # (0.0-0.2) K/uL Sodium (132-148) mmol/L Potassium (3.6-5.2) mmol/L Chloride (98-107) mmol/L Carbon Dioxide (22-30) mmol/L Anion Gap (10-20) BUN (7-17) mg/dL Creatinine (0.7-1.2) mg/dL Est GFR ( Amer) Est GFR (Non-Af Amer) POC Glucose (mg/dL) 166 H 219 H (65-110) mg/dL Random Glucose (65-105) mg/dL Calcium (8.6-10.4) mg/dl Phosphorus (2.5-4.5) mg/dL Magnesium (1.6-2.3) mg/dL Total Bilirubin (0.2-1.3) mg/dL AST (14-36) U/L ALT (9-52) U/L Alkaline Phosphatase (38-126) U/L Total Protein (6.3-8.3) g/dL Albumin (3.5-5.0) g/dL Globulin (2.2-3.9) gm/dL Albumin/Globulin Ratio (1.0-2.1) Procalcitonin 0.75 H (0.19-0.49) NG/ML 04/14/17 Range/Units 11:44 WBC (4.8-10.8) K/uL RBC (3.80-5.20) Mil/uL Hgb (11.0-16.0) g/dL Hct (34.0-47.0) % MCV (81.0-99.0) fL MCH (27.0-31.0) pg MCHC (33.0-37.0) g/dL RDW (11.5-14.5) % Plt Count (130-400) K/uL MPV (7.2-11.7) fL Neut % (Auto) (50.0-75.0) % Lymph % (Auto) (20.0-40.0) % Sanders % (Auto) (0.0-10.0) % Eos % (Auto) (0.0-4.0) % Baso % (Auto) (0.0-2.0) % Neut # (1.8-7.0) K/uL Lymph # (1.0-4.3) K/uL Sanders # (0.0-0.8) K/uL Eos # (0.0-0.7) K/uL Baso # (0.0-0.2) K/uL Sodium (132-148) mmol/L Potassium (3.6-5.2) mmol/L Chloride (98-107) mmol/L Carbon Dioxide (22-30) mmol/L Anion Gap (10-20) BUN (7-17) mg/dL Creatinine (0.7-1.2) mg/dL Est GFR ( Amer) Est GFR (Non-Af Amer) POC Glucose (mg/dL) 260 H (65-110) mg/dL Random Glucose (65-105) mg/dL Calcium (8.6-10.4) mg/dl Phosphorus (2.5-4.5) mg/dL Magnesium (1.6-2.3) mg/dL Total Bilirubin (0.2-1.3) mg/dL AST (14-36) U/L ALT (9-52) U/L Alkaline Phosphatase (38-126) U/L Total Protein (6.3-8.3) g/dL Albumin (3.5-5.0) g/dL Globulin (2.2-3.9) gm/dL Albumin/Globulin Ratio (1.0-2.1) Procalcitonin (0.19-0.49) NG/ML Laboratory Results - last 24 hr 04/14/17 04/14/17 04/14/17 11:44 16:19 17:44 WBC RBC Hgb Hct MCV MCH MCHC RDW Plt Count MPV Neut % (Auto) Lymph % (Auto) Sanders % (Auto) Eos % (Auto) Baso % (Auto) Neut # Lymph # Sanders # Eos # Baso # Sodium Potassium Chloride Carbon Dioxide Anion Gap BUN Creatinine Est GFR ( Amer) Est GFR (Non-Af Amer) POC Glucose (mg/dL) 260 H 219 H Random Glucose Calcium Phosphorus Magnesium Total Bilirubin AST ALT Alkaline Phosphatase Total Protein Albumin Globulin Albumin/Globulin Ratio Procalcitonin 0.75 H 04/14/17 04/15/17 04/15/17 21:40 07:20 07:20 WBC 16.0 H RBC 3.44 L Hgb 9.6 L Hct 28.4 L MCV 82.5 MCH 27.9 MCHC 33.8 RDW 15.2 H Plt Count 318 MPV 8.3 Neut % (Auto) 81.3 H Lymph % (Auto) 11.1 L Sanders % (Auto) 6.9 Eos % (Auto) 0.6 Baso % (Auto) 0.1 Neut # 13.0 H Lymph # 1.8 Sanders # 1.1 H Eos # 0.1 Baso # 0.0 Sodium 129 L Potassium 2.9 L Chloride 99 Carbon Dioxide 22 Anion Gap 11 BUN 17 Creatinine 0.5 L Est GFR ( Amer) > 60 Est GFR (Non-Af Amer) > 60 POC Glucose (mg/dL) 166 H Random Glucose 135 H Calcium 8.3 L Phosphorus 2.8 Magnesium 1.6 Total Bilirubin 0.4 AST 19 ALT 29 Alkaline Phosphatase 109 Total Protein 5.7 L Albumin 2.2 L Globulin 3.5 Albumin/Globulin Ratio 0.6 L Procalcitonin 04/15/17 08:41 WBC RBC Hgb Hct MCV MCH MCHC RDW Plt Count MPV Neut % (Auto) Lymph % (Auto) Sanders % (Auto) Eos % (Auto) Baso % (Auto) Neut # Lymph # Sanders # Eos # Baso # Sodium Potassium Chloride Carbon Dioxide Anion Gap BUN Creatinine Est GFR ( Amer) Est GFR (Non-Af Amer) POC Glucose (mg/dL) 164 H Random Glucose Calcium Phosphorus Magnesium Total Bilirubin AST ALT Alkaline Phosphatase Total Protein Albumin Globulin Albumin/Globulin Ratio Procalcitonin Fingerstick Blood Sugar Results: 166 Critical Care Progress Note - Nutrition Nutrition: Nutrition Category Date Time Status Regular Diet [DIET] Diets 04/14/17 Lunch Active
[2017-04-15] MEDS: Magnesium Oxide 400 mg Tab UD PO SCH (09:44)
[2017-04-15] MEDS: Lactobacillus Acidophilus 500 MU Cap PO SCH (09:46)
[2017-04-15] MEDS ORDERED: Tigecycline 50 MG in Dextrose 5% In Water 100 ML IVPB SCH (10:00)
[2017-04-15] MEDS ORDERED: BUPIVACAINE 0.125%/0.9% NACL 600 ML IJ ONE (10:57)
--- NOTE | 2017-04-15 15:35 | CP.PCM.PN ---
Subjective - Date & Time of Evaluation Date of Evaluation: 04/15/17 Time of Evaluation: 13:00 - Subjective Subjective: clinically same Objective - Vital Signs/Intake and Output Vital Signs (last 24 hours): Temp Pulse Resp BP Pulse Ox 97.6 F 120 H 22 128/83 100 04/15/17 12:00 04/15/17 15:00 04/15/17 15:00 04/15/17 14:40 04/15/17 13:00 Intake and Output: 04/15/17 04/15/17 06:59 18:59 Intake Total 1125 1495 Output Total 2300 300 Balance -1175 1195 - Medications Medications: Current Medications Acetaminophen (Tylenol 325mg Tab) 650 mg PO Q4 PRN PRN Reason: Fever >100.4 F Ascorbic Acid (Vitamin C 500 Mg Tab) 500 mg PO DAILY [facility] Last Admin: 04/15/17 09:44 Dose: 500 mg Heparin Sodium (Porcine) (Heparin) 5,000 units SC Q12 [facility] Last Admin: 04/15/17 09:46 Dose: 5,000 units BUPIVACAINE 0.125%/0.9% NACL (Bupivacaine-Ns 0.125% On-Q Boarding House Manager) 600 mls @ 6 mls/ hr IJ ONCE ONE Stop: 04/16/17 18:44 Last Admin: 04/12/17 14:45 Dose: 28 mls Sodium Chloride (Sodium Chloride 0.9%) 1,000 mls @ 75 mls/hr IV .[id number] [facility] Last Admin: 04/15/17 14:00 Dose: 75 mls/hr Tigecycline 50 mg/ Sodium (Chloride) 100 mls @ 100 mls/hr IVPB Q12H [facility] Last Admin: 04/15/17 06:00 Dose: 100 mls/hr Potassium Chloride (Potassium Chloride 20 Meq/100 Ml) 20 meq in 100 mls @ 50 mls/hr IVPB Q2 [facility] Stop: 04/15/17 15:59 Last Admin: 04/15/17 14:22 Dose: 50 mls/hr BUPIVACAINE 0.125%/0.9% NACL (Bupivacaine-Ns 0.125% On-Q Boarding House Manager) 600 mls @ 4 mls/ hr IJ ONCE ONE Stop: 04/21/17 16:56 Insulin Aspart (Novolog) 0 unit SC ACHS [facility] PRN Reason: Protocol Last Admin: 04/15/17 11:35 Dose: 2 unit Lactobacillus Acidophilus (Bacid Acidophilus) 1 cap PO DAILY [facility] Last Admin: 04/15/17 09:46 Dose: 1 cap Magnesium Oxide (Mag-Ox) 400 mg PO DAILY [facility] Last Admin: 04/15/17 09:44 Dose: 400 mg Morphine Sulfate (Morphine) 4 mg IVP Q4 PRN PRN Reason: Pain, moderate (4-7) Last Admin: 04/14/17 16:05 Dose: 4 mg Ondansetron HCl (Zofran Inj) 4 mg IVP Q4 PRN PRN Reason: Nausea/Vomiting Last Admin: 04/14/17 18:28 Dose: 4 mg Pantoprazole Sodium (Protonix Inj) 40 mg IVP DAILY [facility] Last Admin: 04/15/17 09:46 Dose: 40 mg Zinc Sulfate (Zinc Sulfate 220 Mg Cap) 220 mg PO DAILY [facility] Last Admin: 04/15/17 09:44 Dose: 220 mg - Labs Labs: 04/15/17 07:20 04/15/17 07:20 PT 11.9 SECONDS (9.7-12.2) 04/13/17 06:28 INR 1.1 04/13/17 06:28 APTT 27 SECONDS (21-34) 04/13/17 06:28 - Constitutional Appears: Well - Head Exam Head Exam: ATRAUMATIC, NORMAL INSPECTION, NORMOCEPHALIC - Eye Exam Eye Exam: EOMI, Normal appearance, PERRL Pupil Exam: NORMAL ACCOMODATION, PERRL - ENT Exam ENT Exam: Mucous Membranes Moist, Normal Exam - Respiratory Exam Respiratory Exam: Decreased Breath Sounds - Cardiovascular Exam Cardiovascular Exam: REGULAR RHYTHM, +S1, +S2 - GI/Abdominal Exam GI & Abdominal Exam: Soft, Diminished Bowel Sounds - Rectal Exam Rectal Exam: Deferred - Back Exam Back Exam: NORMAL INSPECTION - Neurological Exam Neurological Exam: Alert, Awake, CN II-XII Intact, Normal Gait, Oriented x3 - Psychiatric Exam Psychiatric exam: Normal Affect, Normal Mood - Skin Skin Exam: Dry, Intact, Normal Color, Warm Assessment and Plan (1) Colonic fistula Status: Acute (2) Displacement of Mckeon catheter Status: Acute - Assessment and Plan (Free Text) Plan: Patient examined. Abdominal pain present. Continue broad-spectrum antibiotic. Continue insulin, antihypertensive and other antidiabetic medications. Continue supportive care.
[2017-04-16] MEDS: Sodium Chloride 0.9% 1,000 ML IV SCH ×2 (05:27→08:00)
[2017-04-16 06:35] LABS: BASO % 0.3 % (0.0-2.0); EOS # 0.1 K/uL (0.0-0.7); EOS % 0.7 % (0.0-4.0); HEMATOCRIT 28.8 % (34.0-47.0); LYMPH % 12.7 % (20.0-40.0); MEAN CORPUSCULAR HEMOGLOBIN 28.2 pg (27.0-31.0); MONO # 1.2 K/uL (0.0-0.8); MONO % 7.4 % (0.0-10.0); RED CELL DISTRIBUTION WIDTH 15.2 % (11.5-14.5); WHITE BLOOD COUNT 16.1 K/uL (4.8-10.8)
[2017-04-16 06:46] LABS: CHLORIDE 101 mmol/L (98-107)
[2017-04-16 06:47] LABS: POTASSIUM 3.7 mmol/L (3.6-5.2); SODIUM 130 mmol/L (132-148)
[2017-04-16 06:49] LABS: ALB/GLOB RATIO 0.6 (1.0-2.1); ALKALINE PHOSPHATASE 99 U/L (38-126); AST/SGOT 18 U/L (14-36); BILIRUBIN,TOTAL 0.5 mg/dL (0.2-1.3); BLOOD UREA NITROGEN 20 mg/dL (7-17); CARBON DIOXIDE 22 mmol/L (22-30); GFR AFRICAN-AMERICAN > 60; GLUCOSE,RANDOM 119 mg/dL (65-105); TOTAL PROTEIN 5.7 g/dL (6.3-8.3)
[2017-04-16 06:50] LABS: ALT/SGPT 26 U/L (9-52); CALCIUM 8.2 mg/dl (8.6-10.4); MAGNESIUM 1.4 mg/dL (1.6-2.3); PHOSPHOROUS 3.5 mg/dL (2.5-4.5)
[2017-04-16] MEDS: (Novolog) Insulin Aspart, Recombinant 100 u/ml 10 ml vial SC SCH ×4 (07:46→21:18)
--- NOTE | 2017-04-16 07:48 | CP.PCM.PN ---
Subjective - Date & Time of Evaluation Date of Evaluation: 04/16/17 Time of Evaluation: 07:15 - Subjective Subjective: General Surgery Dr. Cabral Pt S&E @bedside. NAEO. c/o abd pain. denies N/V, F/C. tolerating diet. Objective - Vital Signs/Intake and Output Vital Signs (last 24 hours): Temp Pulse Resp BP Pulse Ox 98.6 F 100 H 17 117/62 100 04/16/17 04:00 04/16/17 06:40 04/16/17 06:40 04/16/17 06:40 04/16/17 05:40 Intake and Output: 04/16/17 04/16/17 06:59 18:59 Intake Total 1145 Output Total 1870 Balance -725 - Medications Medications: Current Medications Acetaminophen (Tylenol 325mg Tab) 650 mg PO Q4 PRN PRN Reason: Fever >100.4 F Ascorbic Acid (Vitamin C 500 Mg Tab) 500 mg PO DAILY [facility] Last Admin: 04/15/17 09:44 Dose: 500 mg Heparin Sodium (Porcine) (Heparin) 5,000 units SC Q12 [facility] Last Admin: 04/15/17 22:00 Dose: 5,000 units Sodium Chloride (Sodium Chloride 0.9%) 1,000 mls @ 75 mls/hr IV .[id number] [facility] Last Admin: 04/16/17 05:27 Dose: 75 mls/hr Tigecycline 50 mg/ Sodium (Chloride) 100 mls @ 100 mls/hr IVPB Q12H [facility] Last Admin: 04/16/17 05:28 Dose: 100 mls/hr BUPIVACAINE 0.125%/0.9% NACL (Bupivacaine-Ns 0.125% On-Q Bow Maker Production) 600 mls @ 4 mls/ hr IJ ONCE ONE Stop: 04/21/17 16:56 Last Admin: 04/15/17 20:00 Dose: 4 mls/hr Insulin Aspart (Novolog) 0 unit SC ACHS [facility] PRN Reason: Protocol Last Admin: 04/15/17 21:38 Dose: Not Given Lactobacillus Acidophilus (Bacid Acidophilus) 1 cap PO DAILY [facility] Last Admin: 04/15/17 09:46 Dose: 1 cap Magnesium Oxide (Mag-Ox) 400 mg PO DAILY [facility] Last Admin: 04/15/17 09:44 Dose: 400 mg Morphine Sulfate (Morphine) 4 mg IVP Q4 PRN PRN Reason: Pain, moderate (4-7) Last Admin: 04/15/17 17:10 Dose: 4 mg Ondansetron HCl (Zofran Inj) 4 mg IVP Q4 PRN PRN Reason: Nausea/Vomiting Last Admin: 04/15/17 17:55 Dose: 4 mg Pantoprazole Sodium (Protonix Inj) 40 mg IVP DAILY [facility] Last Admin: 04/15/17 09:46 Dose: 40 mg Zinc Sulfate (Zinc Sulfate 220 Mg Cap) 220 mg PO DAILY [facility] Last Admin: 04/15/17 09:44 Dose: 220 mg - Labs Labs: 04/16/17 06:29 04/16/17 06:29 PT 11.9 SECONDS (9.7-12.2) 04/13/17 06:28 INR 1.1 04/13/17 06:28 APTT 27 SECONDS (21-34) 04/13/17 06:28 - Constitutional Appears: Non-toxic, No Acute Distress, Cachectic, Chronically Ill - Head Exam Head Exam: NORMAL INSPECTION - Eye Exam Eye Exam: Normal appearance - ENT Exam ENT Exam: Mucous Membranes Moist - Respiratory Exam Respiratory Exam: NORMAL BREATHING PATTERN. absent: Accessory Muscle Use, Respiratory Distress - Cardiovascular Exam Cardiovascular Exam: Tachycardia, REGULAR RHYTHM - GI/Abdominal Exam GI & Abdominal Exam: Soft, Tenderness (brandt-incisional TTP). absent: Distended , Guarding, Rebound - Extremities Exam Extremities Exam: Normal Inspection - Neurological Exam Neurological Exam: Alert, Awake - Psychiatric Exam Psychiatric exam: Normal Affect, Normal Mood - Skin Skin Exam: Dry, Normal Color, Warm Assessment and Plan - Assessment and Plan (Free Text) Assessment: 61 y/o F POD#4 s/p small bowel resention x2, bladder repair, ileostomy - improved leukocytosis - continue to monitor - [place] drain Cx +VRE - cont pain management - Replace OnQ - rate set on 6mL/hr - cont soft diet - cont TID prostat and ensure - replete electrolytes PRN - cont medical management per ICU Pt discussed w/ Dr. Misha Desouza DO PGY2
[2017-04-16] MEDS ORDERED: Oxycodone/Acetaminophen 5/325 mg Tab PO PRN (07:49)
[2017-04-16] MEDS: Magnesium Sulfate 1 gm in D5W 1 GM/100 ML BAG IVPB SCH ×2 (09:43→10:03)
[2017-04-16] MEDS: Lactobacillus Acidophilus 500 MU Cap PO SCH (09:44)
[2017-04-16] MEDS: Magnesium Oxide 400 mg Tab UD PO SCH (09:45)
[2017-04-16] MEDS: Fluconazole IV 100mg/50 ml NS 50 ML IVPB SCH (10:03)
--- NOTE | 2017-04-16 11:31 | CP.PCM.PN ---
Subjective - Date & Time of Evaluation Date of Evaluation: 04/16/17 Time of Evaluation: 13:40 - Subjective Subjective: clinically same Objective - Vital Signs/Intake and Output Vital Signs (last 24 hours): Temp Pulse Resp BP Pulse Ox 98.8 F 99 H 18 103/54 L 100 04/16/17 09:00 04/16/17 11:00 04/16/17 11:00 04/16/17 11:00 04/16/17 11:00 Intake and Output: 04/16/17 04/16/17 06:59 18:59 Intake Total 1145 400 Output Total 1870 650 Balance -725 -250 - Medications Medications: Current Medications Acetaminophen (Tylenol 325mg Tab) 650 mg PO Q4 PRN PRN Reason: Fever >100.4 F Ascorbic Acid (Vitamin C 500 Mg Tab) 500 mg PO DAILY [facility] Last Admin: 04/16/17 09:45 Dose: 500 mg Heparin Sodium (Porcine) (Heparin) 5,000 units SC Q12 [facility] Last Admin: 04/16/17 09:43 Dose: 5,000 units Sodium Chloride (Sodium Chloride 0.9%) 1,000 mls @ 75 mls/hr IV .[id number] [facility] Last Admin: 04/16/17 05:27 Dose: 75 mls/hr Tigecycline 50 mg/ Sodium (Chloride) 100 mls @ 100 mls/hr IVPB Q12H [facility] Last Admin: 04/16/17 05:28 Dose: 100 mls/hr BUPIVACAINE 0.125%/0.9% NACL (Bupivacaine-Ns 0.125% On-Q Senior Property Accountant) 600 mls @ 4 mls/ hr IJ ONCE ONE Stop: 04/21/17 16:56 Last Admin: 04/15/17 20:00 Dose: 4 mls/hr Fluconazole (Diflucan Iv 100 Mg/50 Ml Ns) 50 mls @ 50 mls/hr IVPB Q24H [facility] Last Admin: 04/16/17 10:03 Dose: 50 mls/hr Insulin Aspart (Novolog) 0 unit SC ACHS [facility] PRN Reason: Protocol Last Admin: 04/16/17 07:46 Dose: Not Given Lactobacillus Acidophilus (Bacid Acidophilus) 1 cap PO DAILY [facility] Last Admin: 04/16/17 09:44 Dose: 1 cap Magnesium Oxide (Mag-Ox) 400 mg PO DAILY [facility] Last Admin: 04/16/17 09:45 Dose: 400 mg Morphine Sulfate (Morphine) 4 mg IVP Q4 PRN PRN Reason: Pain, severe (8-10) Ondansetron HCl (Zofran Inj) 4 mg IVP Q4 PRN PRN Reason: Nausea/Vomiting Last Admin: 04/15/17 17:55 Dose: 4 mg Oxycodone/Acetaminophen (Percocet 5/325 Mg Tab) 1 tab PO Q4H PRN PRN Reason: Pain, moderate (4-7) Stop: 04/19/17 07:50 Pantoprazole Sodium (Protonix Inj) 40 mg IVP DAILY [facility] Last Admin: 04/16/17 09:43 Dose: 40 mg Zinc Sulfate (Zinc Sulfate 220 Mg Cap) 220 mg PO DAILY [facility] Last Admin: 04/16/17 09:44 Dose: 220 mg - Labs Labs: 04/16/17 06:29 04/16/17 06:29 PT 11.9 SECONDS (9.7-12.2) 04/13/17 06:28 INR 1.1 04/13/17 06:28 APTT 27 SECONDS (21-34) 04/13/17 06:28 - Constitutional Appears: Well - Head Exam Head Exam: ATRAUMATIC, NORMAL INSPECTION, NORMOCEPHALIC - Eye Exam Eye Exam: EOMI, Normal appearance, PERRL Pupil Exam: NORMAL ACCOMODATION, PERRL - ENT Exam ENT Exam: Mucous Membranes Moist, Normal Exam - Neck Exam Neck Exam: Full ROM, Normal Inspection. absent: Lymphadenopathy - Respiratory Exam Respiratory Exam: Decreased Breath Sounds - Cardiovascular Exam Cardiovascular Exam: REGULAR RHYTHM, +S1, +S2 - GI/Abdominal Exam GI & Abdominal Exam: Soft, Diminished Bowel Sounds - Rectal Exam Rectal Exam: Deferred Assessment and Plan (1) Colonic fistula Status: Acute (2) Displacement of Mckeon catheter Status: Acute - Assessment and Plan (Free Text) Plan: Patient examined. Patient clinically the same. Continue tigecycline, fluconazole. Continue supportive medications.
--- NOTE | 2017-04-16 12:31 | CP.CCUPN ---
CCU Subjective - Physician Review Events Since Last Encounter (Free Text): 04/16/17 12:30 Patient is still having pain. Nausea vomiting negative. Clinically otherwise stable. Mild tachycardia noted. c/o of pain Vital signs stable. Chest good air entry regular [place]. Urinary output better through the nephrostomy tube Clinical stable. We'll continue to monitor patient. Stable for transfer to floor CCU Objective - Vital Signs / Intake & Output Vital Signs (Last 4 hours): Vital Signs Temp Pulse Resp BP Pulse Ox 04/16/17 12:00 98 F 99 H 20 103/53 L 100 04/16/17 11:00 99 H 18 103/54 L 100 04/16/17 10:00 98 H 20 115/58 L 100 04/16/17 09:00 98.8 F 101 H 20 120/65 99 Intake and Output (Last 8hrs): Intake & Output 04/15/17 04/16/17 04/16/17 22:59 06:59 14:59 Intake Total 960 745 475 Output Total 1954 1745 650 Balance -995 -1000 -175 Weight 94 lb 0.8 oz Intake: Intake, IV Amount 700 625 475 Left Forearm 700 625 475 Oral 260 120 0 Output: Drainage 1954 645 650 [place] tube to Mckeon 1100 Left 10 200 Left Abdomen 20 60 Right 350 60 300 Right Abdomen 475 325 350 Urine 1100 Urethral (Mckeon) 1100 - Physical Exam Head: Positive for: Atraumatic, Normocephalic Extroacular Muscles: Positive for: EOMI Respiratory/Chest: Positive for: Clear to Auscultation, Good Air Exchange. Negative for: Respiratory Distress Cardiovascular: Positive for: Regular Rate and Rhythm, Normal S1, S2 Abdomen: Positive for: Tenderness, Normal Bowel Sounds, Other (dresssing in C/D/ I ). Negative for: Distention, Peritoneal Signs Upper Extremity: Positive for: Normal Inspection. Negative for: Cyanosis, Edema Lower Extremity: Positive for: Normal Inspection. Negative for: Edema Neurological: Positive for: GCS=15, Speech Normal Skin: Positive for: Warm, Normal Color Psychiatric: Positive for: Alert, Oriented x 3 - Medications Active Medications: Active Medications Generic Name Dose Route Start Last Admin Trade Name Freq PRN Reason Stop Dose Admin Acetaminophen 650 mg 04/04/17 22:01 Tylenol 325mg Tab PO Q4 PRN Fever >100.4 F Ascorbic Acid 500 mg 04/05/17 10:00 04/16/17 09:45 Vitamin C 500 Mg Tab PO 500 mg DAILY [facility] Administration Heparin Sodium (Porcine) 5,000 units 04/13/17 22:00 04/16/17 09:43 Heparin SC 5,000 units Q12 [facility] Administration Sodium Chloride 1,000 mls @ 75 mls/hr 04/13/17 12:45 04/16/17 05:27 Sodium Chloride 0.9% IV 75 mls/hr .[id number] [facility] Administration Tigecycline 50 mg/ Sodium 100 mls @ 100 mls/hr 04/15/17 06:00 04/16/17 05:28 Chloride IVPB 100 mls/hr Q12H [facility] Administration BUPIVACAINE 0.125%/0.9% NACL 600 mls @ 4 mls/hr 04/15/17 10:57 04/15/17 20:00 Bupivacaine-Ns 0.125% On-Q Geophysicist IJ 04/21/17 16:56 4 mls/hr ONCE ONE Administration Fluconazole 50 mls @ 50 mls/hr 04/16/17 11:00 04/16/17 10:03 Diflucan Iv 100 Mg/50 Ml Ns IVPB 50 mls/hr Q24H [facility] Administration Insulin Aspart 0 unit 04/14/17 11:45 04/16/17 07:46 Novolog SC Not Given ACHS [facility] Protocol Lactobacillus Acidophilus 1 cap 04/05/17 10:00 04/16/17 09:44 Bacid Acidophilus PO 1 cap DAILY [facility] Administration Magnesium Oxide 400 mg 04/05/17 10:00 04/16/17 09:45 Mag-Ox PO 400 mg DAILY [facility] Administration Morphine Sulfate 4 mg 04/16/17 07:49 Morphine IVP Q4 PRN Pain, severe (8-10) Ondansetron HCl 4 mg 04/06/17 12:06 04/15/17 17:55 Zofran Inj IVP 4 mg Q4 PRN Administration Nausea/Vomiting Oxycodone/Acetaminophen 1 tab 04/16/17 07:49 Percocet 5/325 Mg Tab PO 04/19/17 07:50 Q4H PRN Pain, moderate (4-7) Pantoprazole Sodium 40 mg 04/13/17 13:00 04/16/17 09:43 Protonix Inj IVP 40 mg DAILY [facility] Administration Zinc Sulfate 220 mg 04/05/17 10:00 04/16/17 09:44 Zinc Sulfate 220 Mg Cap PO 220 mg DAILY [facility] Administration - Patient Studies Lab Studies: Microbiology Studies 04/12/17 14:04 Gram Stain - Final Umbilicus Wound Culture - Final No Growth 04/14/17 08:13 Gram Stain - Preliminary Peritoneal Fluid Body Fluid Culture - Preliminary NO GROWTH AFTER 2 DAYS 04/14/17 08:32 Gram Stain - Final Body Fluid - Abdominal Body Fluid Culture - Preliminary Stenotrophomonas Maltophilia Vancomycin Resistant E.faecium 04/14/17 08:14 Urine Culture - Final Urine,Mckeon Yeast Species 04/14/17 08:33 Urine Culture - Final Urine,Kidney Yeast Species 04/14/17 15:00 Urine Culture - Final Urine,Kidney Yeast Species 04/13/17 10:15 Blood Culture - Preliminary Blood-Venous NO GROWTH AFTER 48 HOURS 04/13/17 10:15 Blood Culture - Preliminary Blood-Venous NO GROWTH AFTER 48 HOURS Lab Studies 04/16/17 04/16/17 04/15/17 Range/Units 06:29 06:29 21:30 WBC 16.1 H (4.8-10.8) K/uL RBC 3.47 L (3.80-5.20) Mil/uL Hgb 9.8 L (11.0-16.0) g/dL Hct 28.8 L (34.0-47.0) % MCV 83.0 (81.0-99.0) fL MCH 28.2 (27.0-31.0) pg MCHC 34.0 (33.0-37.0) g/dL RDW 15.2 H (11.5-14.5) % Plt Count 385 (130-400) K/uL MPV 8.0 (7.2-11.7) fL Neut % (Auto) 78.9 H (50.0-75.0) % Lymph % (Auto) 12.7 L (20.0-40.0) % Early % (Auto) 7.4 (0.0-10.0) % Eos % (Auto) 0.7 (0.0-4.0) % Baso % (Auto) 0.3 (0.0-2.0) % Neut # 12.7 H (1.8-7.0) K/uL Lymph # 2.0 (1.0-4.3) K/uL Early # 1.2 H (0.0-0.8) K/uL Eos # 0.1 (0.0-0.7) K/uL Baso # 0.0 (0.0-0.2) K/uL Sodium 130 L (132-148) mmol/L Potassium 3.7 (3.6-5.2) mmol/L Chloride 101 (98-107) mmol/L Carbon Dioxide 22 (22-30) mmol/L Anion Gap 12 (10-20) BUN 20 H (7-17) mg/dL Creatinine 0.5 L (0.7-1.2) mg/dL Est GFR ( Amer) > 60 Est GFR (Non-Af Amer) > 60 POC Glucose (mg/dL) 179 H (65-110) mg/dL Random Glucose 119 H (65-105) mg/dL Calcium 8.2 L (8.6-10.4) mg/dl Phosphorus 3.5 (2.5-4.5) mg/dL Magnesium 1.4 L (1.6-2.3) mg/dL Total Bilirubin 0.5 (0.2-1.3) mg/dL AST 18 (14-36) U/L ALT 26 (9-52) U/L Alkaline Phosphatase 99 (38-126) U/L Total Protein 5.7 L (6.3-8.3) g/dL Albumin 2.1 L (3.5-5.0) g/dL Globulin 3.6 (2.2-3.9) gm/dL Albumin/Globulin Ratio 0.6 L (1.0-2.1) 04/15/17 Range/Units 16:40 WBC (4.8-10.8) K/uL RBC (3.80-5.20) Mil/uL Hgb (11.0-16.0) g/dL Hct (34.0-47.0) % MCV (81.0-99.0) fL MCH (27.0-31.0) pg MCHC (33.0-37.0) g/dL RDW (11.5-14.5) % Plt Count (130-400) K/uL MPV (7.2-11.7) fL Neut % (Auto) (50.0-75.0) % Lymph % (Auto) (20.0-40.0) % Early % (Auto) (0.0-10.0) % Eos % (Auto) (0.0-4.0) % Baso % (Auto) (0.0-2.0) % Neut # (1.8-7.0) K/uL Lymph # (1.0-4.3) K/uL Early # (0.0-0.8) K/uL Eos # (0.0-0.7) K/uL Baso # (0.0-0.2) K/uL Sodium (132-148) mmol/L Potassium (3.6-5.2) mmol/L Chloride (98-107) mmol/L Carbon Dioxide (22-30) mmol/L Anion Gap (10-20) BUN (7-17) mg/dL Creatinine (0.7-1.2) mg/dL Est GFR ( Amer) Est GFR (Non-Af Amer) POC Glucose (mg/dL) 221 H (65-110) mg/dL Random Glucose (65-105) mg/dL Calcium (8.6-10.4) mg/dl Phosphorus (2.5-4.5) mg/dL Magnesium (1.6-2.3) mg/dL Total Bilirubin (0.2-1.3) mg/dL AST (14-36) U/L ALT (9-52) U/L Alkaline Phosphatase (38-126) U/L Total Protein (6.3-8.3) g/dL Albumin (3.5-5.0) g/dL Globulin (2.2-3.9) gm/dL Albumin/Globulin Ratio (1.0-2.1) Laboratory Results - last 24 hr 04/15/17 04/15/17 04/16/17 16:40 21:30 06:29 WBC 16.1 H RBC 3.47 L Hgb 9.8 L Hct 28.8 L MCV 83.0 MCH 28.2 MCHC 34.0 RDW 15.2 H Plt Count 385 MPV 8.0 Neut % (Auto) 78.9 H Lymph % (Auto) 12.7 L Early % (Auto) 7.4 Eos % (Auto) 0.7 Baso % (Auto) 0.3 Neut # 12.7 H Lymph # 2.0 Early # 1.2 H Eos # 0.1 Baso # 0.0 Sodium Potassium Chloride Carbon Dioxide Anion Gap BUN Creatinine Est GFR ( Amer) Est GFR (Non-Af Amer) POC Glucose (mg/dL) 221 H 179 H Random Glucose Calcium Phosphorus Magnesium Total Bilirubin AST ALT Alkaline Phosphatase Total Protein Albumin Globulin Albumin/Globulin Ratio 04/16/17 06:29 WBC RBC Hgb Hct MCV MCH MCHC RDW Plt Count MPV Neut % (Auto) Lymph % (Auto) Early % (Auto) Eos % (Auto) Baso % (Auto) Neut # Lymph # Early # Eos # Baso # Sodium 130 L Potassium 3.7 Chloride 101 Carbon Dioxide 22 Anion Gap 12 BUN 20 H Creatinine 0.5 L Est GFR ( Amer) > 60 Est GFR (Non-Af Amer) > 60 POC Glucose (mg/dL) Random Glucose 119 H Calcium 8.2 L Phosphorus 3.5 Magnesium 1.4 L Total Bilirubin 0.5 AST 18 ALT 26 Alkaline Phosphatase 99 Total Protein 5.7 L Albumin 2.1 L Globulin 3.6 Albumin/Globulin Ratio 0.6 L Fingerstick Blood Sugar Results: 179 Critical Care Progress Note - Nutrition Nutrition: Nutrition Category Date Time Status Regular Diet [DIET] Diets 04/14/17 Lunch Active
--- NOTE | 2017-04-16 15:59 | CP.PCM.PN ---
Subjective - Date & Time of Evaluation Date of Evaluation: 04/16/17 Time of Evaluation: 08:00 - Subjective Subjective: weak nad s/p exploratory laparotomy, small bowel resection x2, bladder repair, appendectomy, ileostomy POD#2 Objective - Vital Signs/Intake and Output Vital Signs (last 24 hours): Temp Pulse Resp BP Pulse Ox 98 F 103 H 19 119/65 99 04/16/17 12:00 04/16/17 15:00 04/16/17 15:00 04/16/17 15:00 04/16/17 15:00 Intake and Output: 04/16/17 04/16/17 06:59 18:59 Intake Total 1145 700 Output Total 1870 1325 Balance -725 -625 - Medications Medications: Current Medications Acetaminophen (Tylenol 325mg Tab) 650 mg PO Q4 PRN PRN Reason: Fever >100.4 F Ascorbic Acid (Vitamin C 500 Mg Tab) 500 mg PO DAILY [facility] Last Admin: 04/16/17 09:45 Dose: 500 mg Heparin Sodium (Porcine) (Heparin) 5,000 units SC Q12 [facility] Last Admin: 04/16/17 09:43 Dose: 5,000 units Tigecycline 50 mg/ Sodium (Chloride) 100 mls @ 100 mls/hr IVPB Q12H [facility] Last Admin: 04/16/17 05:28 Dose: 100 mls/hr BUPIVACAINE 0.125%/0.9% NACL (Bupivacaine-Ns 0.125% On-Q Hospice Home Care Coordinator) 600 mls @ 4 mls/ hr IJ ONCE ONE Stop: 04/21/17 16:56 Last Admin: 04/15/17 20:00 Dose: 4 mls/hr Fluconazole (Diflucan Iv 100 Mg/50 Ml Ns) 50 mls @ 50 mls/hr IVPB Q24H [facility] Last Admin: 04/16/17 10:03 Dose: 50 mls/hr Insulin Aspart (Novolog) 0 unit SC ACHS [facility] PRN Reason: Protocol Last Admin: 04/16/17 12:00 Dose: 6 unit Lactobacillus Acidophilus (Bacid Acidophilus) 1 cap PO DAILY [facility] Last Admin: 04/16/17 09:44 Dose: 1 cap Magnesium Oxide (Mag-Ox) 400 mg PO DAILY [facility] Last Admin: 04/16/17 09:45 Dose: 400 mg Morphine Sulfate (Morphine) 4 mg IVP Q4 PRN PRN Reason: Pain, severe (8-10) Ondansetron HCl (Zofran Inj) 4 mg IVP Q4 PRN PRN Reason: Nausea/Vomiting Last Admin: 04/15/17 17:55 Dose: 4 mg Oxycodone/Acetaminophen (Percocet 5/325 Mg Tab) 1 tab PO Q4H PRN PRN Reason: Pain, moderate (4-7) Stop: 04/19/17 07:50 Pantoprazole Sodium (Protonix Inj) 40 mg IVP DAILY [facility] Last Admin: 04/16/17 09:43 Dose: 40 mg Zinc Sulfate (Zinc Sulfate 220 Mg Cap) 220 mg PO DAILY [facility] Last Admin: 04/16/17 09:44 Dose: 220 mg - Labs Labs: 04/16/17 06:29 04/16/17 06:29 PT 11.9 SECONDS (9.7-12.2) 04/13/17 06:28 INR 1.1 04/13/17 06:28 APTT 27 SECONDS (21-34) 04/13/17 06:28 - Constitutional Appears: Non-toxic, Cachectic, Chronically Ill - Head Exam Head Exam: NORMOCEPHALIC - Eye Exam Eye Exam: PERRL. absent: Scleral icterus - ENT Exam ENT Exam: Mucous Membranes Dry - Neck Exam Neck Exam: absent: Lymphadenopathy - Respiratory Exam Respiratory Exam: Decreased Breath Sounds - Cardiovascular Exam Cardiovascular Exam: REGULAR RHYTHM - GI/Abdominal Exam GI & Abdominal Exam: Distended, Tenderness - Rectal Exam Rectal Exam: Deferred Assessment and Plan (1) Colonic fistula Status: Acute (2) Displacement of Mckeon catheter Status: Acute - Assessment and Plan (Free Text) Assessment: s/p exploratory laparotomy, small bowel resection x2, bladder repair, appendectomy, ileostomy POD#2 contiv antiibiotics
[2017-04-16] MEDS: Morphine 4 MG/ML VIAL IVP PRN (17:23)
[2017-04-17 06:16] LABS: BASO % 0.3 % (0.0-2.0); EOS # 0.2 K/uL (0.0-0.7); EOS % 1.2 % (0.0-4.0); HEMATOCRIT 29.5 % (34.0-47.0); LYMPH % 12.7 % (20.0-40.0); MEAN CELL VOLUME 83.5 fL (81.0-99.0); MEAN CORPUSCULAR HEMOGLOBIN 27.5 pg (27.0-31.0); MEAN CORPUSCULAR HGB CONC 32.9 g/dL (33.0-37.0); MEAN PLATELET VOLUME 8.1 fL (7.2-11.7); MONO # 1.1 K/uL (0.0-0.8); NRBC % 0.1 % (0.0-2.0); WHITE BLOOD COUNT 15.7 K/uL (4.8-10.8)
[2017-04-17 06:33] LABS: CHLORIDE 98 mmol/L (98-107); POTASSIUM 3.5 mmol/L (3.6-5.2); SODIUM 130 mmol/L (132-148)
[2017-04-17 06:35] LABS: ALB/GLOB RATIO 0.5 (1.0-2.1); AST/SGOT 21 U/L (14-36); BILIRUBIN,TOTAL 0.4 mg/dL (0.2-1.3); CARBON DIOXIDE 24 mmol/L (22-30); GFR AFRICAN-AMERICAN > 60; TOTAL PROTEIN 5.6 g/dL (6.3-8.3)
[2017-04-17 06:36] LABS: ALKALINE PHOSPHATASE 96 U/L (38-126); ALT/SGPT 28 U/L (9-52); BLOOD UREA NITROGEN 13 mg/dL (7-17); GLUCOSE,RANDOM 127 mg/dL (65-105); MAGNESIUM 1.6 mg/dL (1.6-2.3); PHOSPHOROUS 3.2 mg/dL (2.5-4.5)
--- NOTE | 2017-04-17 06:42 | OP ---
PROCEDURE DATE: 04/12/2017 PREOPERATIVE DIAGNOSES: 1. Colovesical fistula. 2. Foreign body in colon, the Mckeon catheter. 3. Possible extensive postoperative adhesion. 4. 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 5. Severe sepsis. 6. Severe malnutrition. POSTOPERATIVE DIAGNOSES: 1. Colovesical fistula. 2. Foreign body in colon, the Mckeon catheter. 3. Possible extensive postoperative adhesion. 4. 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 5. Severe sepsis. 6. Severe malnutrition. 7. Umbilical abscess. PROCEDURES DONE: 1. Exploratory laparotomy. 2. Extensive lysis of adhesion. 3. Small bowel resection at fistula site in terminal ileum. 4. Small bowel resection of proximal ileum 5. Bladder repair with omental plug. 6. Appendectomy. 7. Loop ileostomy. 8. Revision of the scar. 9. Removal of foreign body in right colon. 10. Drainage of umbilical abscess. 11. On-Q pain catheter pump placement, PROCEDURE DONE BY: Dr. Sumeet Cabral. RESOURCE CONSERVATION SPECIALIST: DANIEL Snyder and Zari Desouza PGY-2 resident. TYPE OF ANESTHESIA: General endotracheal tube anesthesia. ESTIMATED BLOOD LOSS: Around 500 mL. DRAINS: 19 [place] blood drain was placed. COMPLICATIONS: None. INTRAOPERATIVE FINDINGS: The patient had colovesical fistula with Mckeon catheter entering from the bladder into the terminal ileal anastomosis and into the right colon and the patient also had umbilical abscess and the patient also had extensive postoperative adhesion and extensive interloop adhesions. The patient also had long thickened appendix. DESCRIPTION OF PROCEDURE: On intraoperative steps, this is a 61-year-old female who was diagnosed with colovesical fistula with foreign body in the right colon, the Mckeon catheter was passing from the bladder into the right colon. The patient also had severe sepsis and severe malnutrition and the patient was consented for exploratory laparotomy possible bowel resection, possible stoma and possible removal of the foreign body as well as well as the bladder repair. The patient was brought to the OR and placed on the operative table. After induction of the anesthesia, the OG tube was placed. Abdomen was prepped and draped in usual sterile fashion. The patient was placed in Stirr[place] and lithotomy position and the elliptical incision was made surrounding the previous scar and the previous scar was taken out and the scar was sent to the table for pathology. Now the patient also had umbilical abscess that was drained and culture was taken and the peritoneal cavity was entered in the superior part of the abdomen and the patient found to have extensive postoperative adhesion. Due to extensive adhesion it took approximately an hour to enter the abdominal cavity and the patient had extensive adhesion of the small bowel to the anterior abdominal wall, small to bowel to the pelvis, small bowel to the colon, small bowel to small bowel and the patient had multiple serosal tear. The serosal tear was expected incidental occurrence due to the extensive adhesion and the patient found to have fistula of the terminal ileum to the bladder and Mckeon was entering from the terminal ilium into the right colon and first fistula was taken down and the foreign body in the form of the Mckeon catheter was removed from the right colon and it was sent to the table for pathology. Now the bladder was repaired with omental plug and small bowel at the terminal ilium was resected and it was sent to the table for pathology. The appendix appeared to be long and thickened and the appendectomy was done and due to extensive serosal tear in the proximal ilium, the proximal ilium was resected and [id number] anastomosis was done and after proper suction and irrigation of the pelvis and peritoneal cavity the 19-[place] PEG tube was placed and loop ileostomy was done. A 20 cm of ilium was left for future ilial conduit as per recommendation by Dr. Whitaker from [place] and afterward the on On-Q pain catheter pump was placed and peritoneal cavity and abdomen was closed in two layer. The fascia with #1 loop PDS and skin with cory and dry sterile dressing was applied. The patient tolerated the procedure well. Count of the instrument and gauze was correct. There was no apparent complication. The patient was kept intubated and sent to the recovery room for further treatment. Sumeet Cabral MD [id number]
[2017-04-17] MEDS: (Novolog) Insulin Aspart, Recombinant 100 u/ml 10 ml vial SC SCH ×4 (08:20→22:00)
[2017-04-17] MEDS: Lactobacillus Acidophilus 500 MU Cap PO SCH (09:24)
--- NOTE | 2017-04-17 09:24 | CP.PCM.PN ---
<DeoZari - Last Filed: 04/17/17 16:13> Subjective - Date & Time of Evaluation Date of Evaluation: 04/17/17 Time of Evaluation: 07:00 - Subjective Subjective: General Surgery Dr. Cabral Pt S&E @bedside. NAEO. pain controlled. denies F/C, N/V, D/C. tolerating diet. Objective - Vital Signs/Intake and Output Vital Signs (last 24 hours): Temp Pulse Resp BP Pulse Ox 98 F 102 H 18 122/71 100 04/17/17 08:00 04/17/17 08:00 04/17/17 08:00 04/17/17 08:00 04/17/17 08:00 Intake and Output: 04/17/17 04/17/17 06:59 18:59 Intake Total 1425 Output Total 910 Balance 515 - Medications Medications: Current Medications Acetaminophen (Tylenol 325mg Tab) 650 mg PO Q4 PRN PRN Reason: Fever >100.4 F Ascorbic Acid (Vitamin C 500 Mg Tab) 500 mg PO DAILY [facility] Last Admin: 04/16/17 09:45 Dose: 500 mg Tigecycline 50 mg/ Sodium (Chloride) 100 mls @ 100 mls/hr IVPB Q12H [facility] Last Admin: 04/17/17 06:00 Dose: 100 mls/hr BUPIVACAINE 0.125%/0.9% NACL (Bupivacaine-Ns 0.125% On-Q Beam Dyer Recessed Vat) 600 mls @ 4 mls/ hr IJ ONCE ONE Stop: 04/21/17 16:56 Last Admin: 04/15/17 20:00 Dose: 4 mls/hr Fluconazole (Diflucan Iv 100 Mg/50 Ml Ns) 50 mls @ 50 mls/hr IVPB Q24H [facility] Last Admin: 04/16/17 10:03 Dose: 50 mls/hr Insulin Aspart (Novolog) 0 unit SC ACHS [facility] PRN Reason: Protocol Last Admin: 04/17/17 08:20 Dose: 2 unit Lactobacillus Acidophilus (Bacid Acidophilus) 1 cap PO DAILY [facility] Last Admin: 04/16/17 09:44 Dose: 1 cap Magnesium Oxide (Mag-Ox) 400 mg PO DAILY [facility] Last Admin: 04/16/17 09:45 Dose: 400 mg Morphine Sulfate (Morphine) 4 mg IVP Q4 PRN PRN Reason: Pain, severe (8-10) Last Admin: 04/16/17 17:23 Dose: 4 mg Ondansetron HCl (Zofran Inj) 4 mg IVP Q4 PRN PRN Reason: Nausea/Vomiting Last Admin: 04/15/17 17:55 Dose: 4 mg Oxycodone/Acetaminophen (Percocet 5/325 Mg Tab) 1 tab PO Q4H PRN PRN Reason: Pain, moderate (4-7) Stop: 04/19/17 07:50 Pantoprazole Sodium (Protonix Inj) 40 mg IVP DAILY [facility] Last Admin: 04/16/17 09:43 Dose: 40 mg Zinc Sulfate (Zinc Sulfate 220 Mg Cap) 220 mg PO DAILY [facility] Last Admin: 04/16/17 09:44 Dose: 220 mg - Labs Labs: 04/17/17 06:09 04/17/17 06:10 PT 11.9 SECONDS (9.7-12.2) 04/13/17 06:28 INR 1.1 04/13/17 06:28 APTT 27 SECONDS (21-34) 04/13/17 06:28 - Constitutional Appears: Non-toxic, No Acute Distress - Head Exam Head Exam: NORMAL INSPECTION - Eye Exam Eye Exam: Normal appearance - ENT Exam ENT Exam: Mucous Membranes Moist - Respiratory Exam Respiratory Exam: NORMAL BREATHING PATTERN. absent: Accessory Muscle Use, Respiratory Distress - Cardiovascular Exam Cardiovascular Exam: Tachycardia - GI/Abdominal Exam GI & Abdominal Exam: Soft, Tenderness (brandt-incisional TTP). absent: Distended , Guarding, Rebound Additional comments: incisions c/d/i (+) ostomy output saad w/ serosanguinous output - Extremities Exam Extremities Exam: Normal Inspection - Back Exam Additional comments: b/l nephrostomy tubes w/ clear, yellow urine - Neurological Exam Neurological Exam: Alert, Awake, Oriented x3 - Psychiatric Exam Psychiatric exam: Normal Affect, Normal Mood - Skin Skin Exam: Dry, Normal Color, Warm Assessment and Plan - Assessment and Plan (Free Text) Assessment: 61 y/o F POD#5 s/p ex-lap w/ small bowel resections, bladder repair, and ileostomy - pain management - trend labs - WBC trending down - replete electrolytes PRN - ADAT - f/u Nutrition recommendations Pt discussed w/ Dr. Misha Desouza DO PGY2 <Sumeet Cabral B - Last Filed: 04/18/17 17:02> Objective - Vital Signs/Intake and Output Vital Signs (last 24 hours): Temp Pulse Resp BP Pulse Ox 97.9 F 104 H 18 108/73 99 04/18/17 15:00 04/18/17 15:00 04/18/17 15:00 04/18/17 15:00 04/18/17 15:00 Intake and Output: 04/18/17 04/18/17 06:59 18:59 Intake Total 300 220 Output Total 1375 900 Balance -0911 -564 - Medications Medications: Current Medications Acetaminophen (Tylenol 325mg Tab) 650 mg PO Q4 PRN PRN Reason: Fever >100.4 F Ascorbic Acid (Vitamin C 500 Mg Tab) 500 mg PO DAILY [facility] Last Admin: 04/18/17 12:06 Dose: Not Given Heparin Sodium (Porcine) (Heparin) 5,000 units SC Q12 [facility] Last Admin: 04/18/17 12:05 Dose: 5,000 units Tigecycline 50 mg/ Sodium (Chloride) 100 mls @ 100 mls/hr IVPB Q12H [facility] Last Admin: 04/18/17 05:35 Dose: 100 mls/hr Fluconazole (Diflucan Iv 100 Mg/50 Ml Ns) 50 mls @ 50 mls/hr IVPB Q24H [facility] Last Admin: 04/18/17 12:14 Dose: 50 mls/hr Insulin Aspart (Novolog) 0 unit SC ACHS [facility] PRN Reason: Protocol Last Admin: 04/18/17 12:17 Dose: Not Given Lactobacillus Acidophilus (Bacid Acidophilus) 1 cap PO DAILY [facility] Last Admin: 04/18/17 12:06 Dose: Not Given Magnesium Oxide (Mag-Ox) 400 mg PO DAILY [facility] Last Admin: 04/18/17 12:06 Dose: Not Given Morphine Sulfate (Morphine) 4 mg IVP Q4 PRN PRN Reason: Pain, severe (8-10) Last Admin: 04/16/17 17:23 Dose: 4 mg Ondansetron HCl (Zofran Inj) 4 mg IVP Q4 PRN PRN Reason: Nausea/Vomiting Last Admin: 04/15/17 17:55 Dose: 4 mg Oxycodone/Acetaminophen (Percocet 5/325 Mg Tab) 1 tab PO Q4H PRN PRN Reason: Pain, moderate (4-7) Stop: 04/19/17 07:50 Pantoprazole Sodium (Protonix Inj) 40 mg IVP DAILY [facility] Last Admin: 04/18/17 12:05 Dose: 40 mg Zinc Sulfate (Zinc Sulfate 220 Mg Cap) 220 mg PO DAILY [facility] Last Admin: 04/18/17 12:06 Dose: Not Given - Labs Labs: 04/18/17 08:10 04/18/17 08:10 PT 11.9 SECONDS (9.7-12.2) 04/13/17 06:28 INR 1.1 04/13/17 06:28 APTT 27 SECONDS (21-34) 04/13/17 06:28 Attending/Attestation - Attestation I have personally seen and examined this patient.: Yes I have fully participated in the care of the patient.: Yes I have reviewed all pertinent clinical information, including history, physical exam and plan: Yes Notes (Text): 04/18/17 17:00 Pt was seen and examined at bedside Agree with above note and assessment Pt is improving clinically. OOB to walk. C.w current mx Plan d.w pt in detail
[2017-04-17] MEDS: Magnesium Oxide 400 mg Tab UD PO SCH (09:25)
[2017-04-17] MEDS: Fluconazole IV 100mg/50 ml NS 50 ML IVPB SCH (12:00)
[2017-04-17] MEDS ORDERED: Potassium Chloride 20 mEq/15 ml LIQ UD PO ONE (12:15)
--- NOTE | 2017-04-17 14:56 | CP.PCM.PN ---
Subjective - Date & Time of Evaluation Date of Evaluation: 04/17/17 Time of Evaluation: 08:00 - Subjective Subjective: 61 y/o F POD#5 s/p ex-lap w/ small bowel resections, bladder repair, and ileostomy Objective - Vital Signs/Intake and Output Vital Signs (last 24 hours): Temp Pulse Resp BP Pulse Ox 98.1 F 101 H 19 137/81 100 04/17/17 12:00 04/17/17 12:00 04/17/17 12:00 04/17/17 12:00 04/17/17 12:00 Intake and Output: 04/17/17 04/17/17 06:59 18:59 Intake Total 1425 240 Output Total 910 1000 Balance 515 -760 - Medications Medications: Current Medications Acetaminophen (Tylenol 325mg Tab) 650 mg PO Q4 PRN PRN Reason: Fever >100.4 F Ascorbic Acid (Vitamin C 500 Mg Tab) 500 mg PO DAILY [facility] Last Admin: 04/17/17 09:25 Dose: 500 mg Tigecycline 50 mg/ Sodium (Chloride) 100 mls @ 100 mls/hr IVPB Q12H [facility] Last Admin: 04/17/17 06:00 Dose: 100 mls/hr BUPIVACAINE 0.125%/0.9% NACL (Bupivacaine-Ns 0.125% On-Q Garage Door Opener Installer) 600 mls @ 4 mls/ hr IJ ONCE ONE Stop: 04/21/17 16:56 Last Admin: 04/15/17 20:00 Dose: 4 mls/hr Fluconazole (Diflucan Iv 100 Mg/50 Ml Ns) 50 mls @ 50 mls/hr IVPB Q24H [facility] Last Admin: 04/17/17 12:00 Dose: 50 mls/hr Insulin Aspart (Novolog) 0 unit SC ACHS [facility] PRN Reason: Protocol Last Admin: 04/17/17 12:00 Dose: 4 unit Lactobacillus Acidophilus (Bacid Acidophilus) 1 cap PO DAILY [facility] Last Admin: 04/17/17 09:24 Dose: 1 cap Magnesium Oxide (Mag-Ox) 400 mg PO DAILY [facility] Last Admin: 04/17/17 09:25 Dose: 400 mg Morphine Sulfate (Morphine) 4 mg IVP Q4 PRN PRN Reason: Pain, severe (8-10) Last Admin: 04/16/17 17:23 Dose: 4 mg Ondansetron HCl (Zofran Inj) 4 mg IVP Q4 PRN PRN Reason: Nausea/Vomiting Last Admin: 04/15/17 17:55 Dose: 4 mg Oxycodone/Acetaminophen (Percocet 5/325 Mg Tab) 1 tab PO Q4H PRN PRN Reason: Pain, moderate (4-7) Stop: 04/19/17 07:50 Pantoprazole Sodium (Protonix Inj) 40 mg IVP DAILY [facility] Last Admin: 04/17/17 09:24 Dose: 40 mg Zinc Sulfate (Zinc Sulfate 220 Mg Cap) 220 mg PO DAILY [facility] Last Admin: 04/17/17 09:24 Dose: 220 mg - Labs Labs: 04/17/17 06:09 04/17/17 06:10 PT 11.9 SECONDS (9.7-12.2) 04/13/17 06:28 INR 1.1 04/13/17 06:28 APTT 27 SECONDS (21-34) 04/13/17 06:28 - Constitutional Appears: Non-toxic, Cachectic, Chronically Ill - Head Exam Head Exam: ATRAUMATIC, NORMOCEPHALIC - Eye Exam Eye Exam: PERRL - ENT Exam ENT Exam: Mucous Membranes Dry, Normal External Ear Exam - Neck Exam Neck Exam: absent: Thyromegaly - Respiratory Exam Respiratory Exam: Decreased Breath Sounds - Cardiovascular Exam Cardiovascular Exam: REGULAR RHYTHM - GI/Abdominal Exam GI & Abdominal Exam: Distended, Soft Additional comments: ileostomy + wounds c/d/i - Rectal Exam Rectal Exam: Deferred Assessment and Plan (1) Colonic fistula Status: Acute (2) Displacement of Mckeon catheter Status: Acute - Assessment and Plan (Free Text) Assessment: 61 y/o F POD#5 s/p ex-lap w/ small bowel resections, bladder repair, and ileostomy cont tygacil/ diflucan
--- NOTE | 2017-04-17 16:13 | CP.PCM.PN ---
Subjective - Date & Time of Evaluation Date of Evaluation: 04/17/17 Time of Evaluation: 14:00 - Subjective Subjective: clinically same Objective - Vital Signs/Intake and Output Vital Signs (last 24 hours): Temp Pulse Resp BP Pulse Ox 98.1 F 101 H 19 137/81 100 04/17/17 12:00 04/17/17 12:00 04/17/17 12:00 04/17/17 12:00 04/17/17 12:00 Intake and Output: 04/17/17 04/17/17 06:59 18:59 Intake Total 1425 240 Output Total 910 1000 Balance 515 -760 - Medications Medications: Current Medications Acetaminophen (Tylenol 325mg Tab) 650 mg PO Q4 PRN PRN Reason: Fever >100.4 F Ascorbic Acid (Vitamin C 500 Mg Tab) 500 mg PO DAILY [facility] Last Admin: 04/17/17 09:25 Dose: 500 mg Tigecycline 50 mg/ Sodium (Chloride) 100 mls @ 100 mls/hr IVPB Q12H [facility] Last Admin: 04/17/17 06:00 Dose: 100 mls/hr BUPIVACAINE 0.125%/0.9% NACL (Bupivacaine-Ns 0.125% On-Q Cond[employer]ium [employer] Manager) 600 mls @ 4 mls/ hr IJ ONCE ONE Stop: 04/21/17 16:56 Last Admin: 04/15/17 20:00 Dose: 4 mls/hr Fluconazole (Diflucan Iv 100 Mg/50 Ml Ns) 50 mls @ 50 mls/hr IVPB Q24H [facility] Last Admin: 04/17/17 12:00 Dose: 50 mls/hr Insulin Aspart (Novolog) 0 unit SC ACHS [facility] PRN Reason: Protocol Last Admin: 04/17/17 12:00 Dose: 4 unit Lactobacillus Acidophilus (Bacid Acidophilus) 1 cap PO DAILY [facility] Last Admin: 04/17/17 09:24 Dose: 1 cap Magnesium Oxide (Mag-Ox) 400 mg PO DAILY [facility] Last Admin: 04/17/17 09:25 Dose: 400 mg Morphine Sulfate (Morphine) 4 mg IVP Q4 PRN PRN Reason: Pain, severe (8-10) Last Admin: 04/16/17 17:23 Dose: 4 mg Ondansetron HCl (Zofran Inj) 4 mg IVP Q4 PRN PRN Reason: Nausea/Vomiting Last Admin: 04/15/17 17:55 Dose: 4 mg Oxycodone/Acetaminophen (Percocet 5/325 Mg Tab) 1 tab PO Q4H PRN PRN Reason: Pain, moderate (4-7) Stop: 04/19/17 07:50 Pantoprazole Sodium (Protonix Inj) 40 mg IVP DAILY [facility] Last Admin: 04/17/17 09:24 Dose: 40 mg Zinc Sulfate (Zinc Sulfate 220 Mg Cap) 220 mg PO DAILY [facility] Last Admin: 04/17/17 09:24 Dose: 220 mg - Labs Labs: 04/17/17 06:09 04/17/17 06:10 PT 11.9 SECONDS (9.7-12.2) 04/13/17 06:28 INR 1.1 04/13/17 06:28 APTT 27 SECONDS (21-34) 04/13/17 06:28 - Constitutional Appears: Well - Head Exam Head Exam: ATRAUMATIC, NORMAL INSPECTION, NORMOCEPHALIC - Eye Exam Eye Exam: EOMI, Normal appearance, PERRL Pupil Exam: NORMAL ACCOMODATION, PERRL - ENT Exam ENT Exam: Mucous Membranes Moist, Normal Exam - Neck Exam Neck Exam: Full ROM, Normal Inspection. absent: Lymphadenopathy - Respiratory Exam Respiratory Exam: Decreased Breath Sounds - Cardiovascular Exam Cardiovascular Exam: REGULAR RHYTHM, +S1, +S2 - GI/Abdominal Exam GI & Abdominal Exam: Soft, Diminished Bowel Sounds - Rectal Exam Rectal Exam: Deferred - Back Exam Back Exam: NORMAL INSPECTION - Neurological Exam Neurological Exam: Alert, Awake, CN II-XII Intact, Normal Gait, Oriented x3 - Psychiatric Exam Psychiatric exam: Normal Affect, Normal Mood - Skin Skin Exam: Dry, Intact, Normal Color, Warm Assessment and Plan (1) Colonic fistula Status: Acute (2) Displacement of Mckeon catheter Status: Acute - Assessment and Plan (Free Text) Plan: Patient examined. Lower abdominal pain present. Continue broad-spectrum antibiotic. Continue insulin, antidiabetic medications and antihypertensive medications. Continue supportive care.
[2017-04-18 08:24] LABS: BASO % 0.2 % (0.0-2.0); EOS # 0.1 K/uL (0.0-0.7); EOS % 0.9 % (0.0-4.0); HEMATOCRIT 31.7 % (34.0-47.0); LYMPH # 2.4 K/uL (1.0-4.3); LYMPH % 14.7 % (20.0-40.0); MEAN CELL VOLUME 83.3 fL (81.0-99.0); MEAN CORPUSCULAR HEMOGLOBIN 28.1 pg (27.0-31.0); MEAN CORPUSCULAR HGB CONC 33.8 g/dL (33.0-37.0); MEAN PLATELET VOLUME 7.7 fL (7.2-11.7); MONO % 6.1 % (0.0-10.0); RED CELL DISTRIBUTION WIDTH 15.4 % (11.5-14.5); WHITE BLOOD COUNT 16.3 K/uL (4.8-10.8)
[2017-04-18] MEDS: (Novolog) Insulin Aspart, Recombinant 100 u/ml 10 ml vial SC SCH ×4 (08:35→21:03)
[2017-04-18 08:39] LABS: CHLORIDE 98 mmol/L (98-107)
[2017-04-18 08:40] LABS: POTASSIUM 3.4 mmol/L (3.6-5.2); SODIUM 130 mmol/L (132-148)
[2017-04-18 08:42] LABS: CARBON DIOXIDE 24 mmol/L (22-30); GFR AFRICAN-AMERICAN > 60
[2017-04-18 08:43] LABS: ALKALINE PHOSPHATASE 130 U/L (38-126); ALT/SGPT 35 U/L (9-52); AST/SGOT 20 U/L (14-36); BILIRUBIN,TOTAL 0.5 mg/dL (0.2-1.3); BLOOD UREA NITROGEN 16 mg/dL (7-17); CALCIUM 8.1 mg/dl (8.6-10.4); GLUCOSE,RANDOM 139 mg/dL (65-105); PHOSPHOROUS 3.9 mg/dL (2.5-4.5); TOTAL PROTEIN 5.8 g/dL (6.3-8.3)
[2017-04-18 08:44] LABS: MAGNESIUM 1.5 mg/dL (1.6-2.3)
[2017-04-18 08:56] LABS: ALB/GLOB RATIO 0.6 (1.0-2.1)
--- NOTE | 2017-04-18 11:32 | CP.PCM.PN ---
<DeoZari - Last Filed: 04/18/17 11:30> Subjective - Date & Time of Evaluation Date of Evaluation: 04/18/17 Time of Evaluation: 06:45 - Subjective Subjective: General Surgery Dr. Cabral Pt S&E @bedside. NAEO. c/o diffuse abd pain. denies N/V. tolerating diet. has not been OOB to chair or ambulating. Objective - Vital Signs/Intake and Output Vital Signs (last 24 hours): Temp Pulse Resp BP Pulse Ox 98.4 F 95 H 18 116/78 100 04/18/17 08:15 04/18/17 08:15 04/18/17 08:15 04/18/17 08:15 04/18/17 08:15 Intake and Output: 04/18/17 04/18/17 06:59 18:59 Intake Total 300 Output Total 1375 Balance -1075 - Medications Medications: Current Medications Acetaminophen (Tylenol 325mg Tab) 650 mg PO Q4 PRN PRN Reason: Fever >100.4 F Ascorbic Acid (Vitamin C 500 Mg Tab) 500 mg PO DAILY [facility] Last Admin: 04/17/17 09:25 Dose: 500 mg Heparin Sodium (Porcine) (Heparin) 5,000 units SC Q12 [facility] Tigecycline 50 mg/ Sodium (Chloride) 100 mls @ 100 mls/hr IVPB Q12H [facility] Last Admin: 04/18/17 05:35 Dose: 100 mls/hr Fluconazole (Diflucan Iv 100 Mg/50 Ml Ns) 50 mls @ 50 mls/hr IVPB Q24H [facility] Last Admin: 04/17/17 12:00 Dose: 50 mls/hr Insulin Aspart (Novolog) 0 unit SC ACHS [facility] PRN Reason: Protocol Last Admin: 04/18/17 08:35 Dose: 2 unit Lactobacillus Acidophilus (Bacid Acidophilus) 1 cap PO DAILY [facility] Last Admin: 04/17/17 09:24 Dose: 1 cap Magnesium Oxide (Mag-Ox) 400 mg PO DAILY [facility] Last Admin: 04/17/17 09:25 Dose: 400 mg Morphine Sulfate (Morphine) 4 mg IVP Q4 PRN PRN Reason: Pain, severe (8-10) Last Admin: 04/16/17 17:23 Dose: 4 mg Ondansetron HCl (Zofran Inj) 4 mg IVP Q4 PRN PRN Reason: Nausea/Vomiting Last Admin: 04/15/17 17:55 Dose: 4 mg Oxycodone/Acetaminophen (Percocet 5/325 Mg Tab) 1 tab PO Q4H PRN PRN Reason: Pain, moderate (4-7) Stop: 04/19/17 07:50 Pantoprazole Sodium (Protonix Inj) 40 mg IVP DAILY [facility] Last Admin: 04/17/17 09:24 Dose: 40 mg Potassium Chloride (Potassium Chloride Oral Soln) 30 meq PO ONCE ONE Stop: 04/18/17 11:30 Zinc Sulfate (Zinc Sulfate 220 Mg Cap) 220 mg PO DAILY [facility] Last Admin: 04/17/17 09:24 Dose: 220 mg - Labs Labs: 04/18/17 08:10 04/18/17 08:10 PT 11.9 SECONDS (9.7-12.2) 04/13/17 06:28 INR 1.1 04/13/17 06:28 APTT 27 SECONDS (21-34) 04/13/17 06:28 - Constitutional Appears: Non-toxic, No Acute Distress, Cachectic, Chronically Ill - Head Exam Head Exam: NORMAL INSPECTION - Eye Exam Eye Exam: Normal appearance - ENT Exam ENT Exam: Mucous Membranes Moist - Respiratory Exam Respiratory Exam: NORMAL BREATHING PATTERN. absent: Accessory Muscle Use, Respiratory Distress - Cardiovascular Exam Cardiovascular Exam: Tachycardia - GI/Abdominal Exam GI & Abdominal Exam: Guarding (voluntary), Soft, Tenderness (brandt-incisional TTP ). absent: Distended, Rebound Additional comments: ileostomy w/ output saad w/ serosanguinous drainage OnQ pump empty incisions c/d/i, well approximated - Extremities Exam Extremities Exam: Normal Inspection - Neurological Exam Neurological Exam: Alert, Awake - Psychiatric Exam Psychiatric exam: Normal Affect, Normal Mood - Skin Skin Exam: Dry, Normal Color, Warm Assessment and Plan - Assessment and Plan (Free Text) Assessment: 61 y/o F POD#6 s/p ex-lap w/ small bowel resections, bladder repair, and ileostomy - OnQ removed - cont pain management - trend labs - WBC trending down - replete electrolytes PRN - ADAT - encourage PO intake and meal supplements. - Pt may have food from home if better tolerance - Encourage OOB to chair/Amb/IS use Pt discussed w/ Dr. Misha Desouza DO PGY2 <Sumeet Cabral - Last Filed: 04/18/17 17:11> Objective - Vital Signs/Intake and Output Vital Signs (last 24 hours): Temp Pulse Resp BP Pulse Ox 97.9 F 104 H 18 108/73 99 04/18/17 16:00 04/18/17 16:00 04/18/17 16:00 04/18/17 16:00 04/18/17 16:00 Intake and Output: 04/18/17 04/18/17 06:59 18:59 Intake Total 300 220 Output Total 1375 900 Balance -1075 -680 - Medications Medications: Current Medications Acetaminophen (Tylenol 325mg Tab) 650 mg PO Q4 PRN PRN Reason: Fever >100.4 F Ascorbic Acid (Vitamin C 500 Mg Tab) 500 mg PO DAILY [facility] Last Admin: 04/18/17 12:06 Dose: Not Given Heparin Sodium (Porcine) (Heparin) 5,000 units SC Q12 [facility] Last Admin: 04/18/17 12:05 Dose: 5,000 units Tigecycline 50 mg/ Sodium (Chloride) 100 mls @ 100 mls/hr IVPB Q12H [facility] Last Admin: 04/18/17 05:35 Dose: 100 mls/hr Fluconazole (Diflucan Iv 100 Mg/50 Ml Ns) 50 mls @ 50 mls/hr IVPB Q24H [facility] Last Admin: 04/18/17 12:14 Dose: 50 mls/hr Insulin Aspart (Novolog) 0 unit SC ACHS [facility] PRN Reason: Protocol Last Admin: 04/18/17 12:17 Dose: Not Given Lactobacillus Acidophilus (Bacid Acidophilus) 1 cap PO DAILY [facility] Last Admin: 04/18/17 12:06 Dose: Not Given Magnesium Oxide (Mag-Ox) 400 mg PO DAILY [facility] Last Admin: 04/18/17 12:06 Dose: Not Given Morphine Sulfate (Morphine) 4 mg IVP Q4 PRN PRN Reason: Pain, severe (8-10) Last Admin: 04/16/17 17:23 Dose: 4 mg Ondansetron HCl (Zofran Inj) 4 mg IVP Q4 PRN PRN Reason: Nausea/Vomiting Last Admin: 04/15/17 17:55 Dose: 4 mg Oxycodone/Acetaminophen (Percocet 5/325 Mg Tab) 1 tab PO Q4H PRN PRN Reason: Pain, moderate (4-7) Stop: 04/19/17 07:50 Pantoprazole Sodium (Protonix Inj) 40 mg IVP DAILY [facility] Last Admin: 04/18/17 12:05 Dose: 40 mg Zinc Sulfate (Zinc Sulfate 220 Mg Cap) 220 mg PO DAILY [facility] Last Admin: 04/18/17 12:06 Dose: Not Given - Labs Labs: 04/18/17 08:10 04/18/17 08:10 PT 11.9 SECONDS (9.7-12.2) 04/13/17 06:28 INR 1.1 04/13/17 06:28 APTT 27 SECONDS (21-34) 04/13/17 06:28 Attending/Attestation - Attestation I have personally seen and examined this patient.: Yes I have fully participated in the care of the patient.: Yes I have reviewed all pertinent clinical information, including history, physical exam and plan: Yes Notes (Text): 04/18/17 17:11 Pt was seen and examined at bedside Agree with above note and assessment Pt is improving clinically DC plan C.w current mx
[2017-04-18] MEDS ORDERED: Potassium Chloride 20 mEq/15 ml LIQ UD PO ONE (12:00)
[2017-04-18] MEDS: Magnesium Oxide 400 mg Tab UD PO SCH (12:06)
[2017-04-18] MEDS: Lactobacillus Acidophilus 500 MU Cap PO SCH (12:06)
[2017-04-18] MEDS: Fluconazole IV 100mg/50 ml NS 50 ML IVPB SCH (12:14)
[2017-04-18] MEDS: Morphine 4 MG/ML VIAL IVP PRN (20:02)
--- NOTE | 2017-04-18 20:10 | CP.PCM.PN ---
Subjective - Date & Time of Evaluation Date of Evaluation: 04/18/17 Time of Evaluation: 10:40 - Subjective Subjective: clinically same Objective - Vital Signs/Intake and Output Vital Signs (last 24 hours): Temp Pulse Resp BP Pulse Ox 97.9 F 104 H 18 108/73 99 04/18/17 16:00 04/18/17 16:00 04/18/17 16:00 04/18/17 16:00 04/18/17 16:00 Intake and Output: 04/18/17 04/19/17 18:59 06:59 Intake Total 220 Output Total 900 Balance -680 - Medications Medications: Current Medications Acetaminophen (Tylenol 325mg Tab) 650 mg PO Q4 PRN PRN Reason: Fever >100.4 F Ascorbic Acid (Vitamin C 500 Mg Tab) 500 mg PO DAILY [facility] Last Admin: 04/18/17 12:06 Dose: Not Given Heparin Sodium (Porcine) (Heparin) 5,000 units SC Q12 [facility] Last Admin: 04/18/17 12:05 Dose: 5,000 units Tigecycline 50 mg/ Sodium (Chloride) 100 mls @ 100 mls/hr IVPB Q12H [facility] Last Admin: 04/18/17 17:48 Dose: 100 mls/hr Fluconazole (Diflucan Iv 100 Mg/50 Ml Ns) 50 mls @ 50 mls/hr IVPB Q24H [facility] Last Admin: 04/18/17 12:14 Dose: 50 mls/hr Insulin Aspart (Novolog) 0 unit SC ACHS [facility] PRN Reason: Protocol Last Admin: 04/18/17 17:49 Dose: Not Given Lactobacillus Acidophilus (Bacid Acidophilus) 1 cap PO DAILY [facility] Last Admin: 04/18/17 12:06 Dose: Not Given Magnesium Oxide (Mag-Ox) 400 mg PO DAILY [facility] Last Admin: 04/18/17 12:06 Dose: Not Given Morphine Sulfate (Morphine) 4 mg IVP Q4 PRN PRN Reason: Pain, severe (8-10) Last Admin: 04/18/17 20:02 Dose: 4 mg Ondansetron HCl (Zofran Inj) 4 mg IVP Q4 PRN PRN Reason: Nausea/Vomiting Last Admin: 04/15/17 17:55 Dose: 4 mg Oxycodone/Acetaminophen (Percocet 5/325 Mg Tab) 1 tab PO Q4H PRN PRN Reason: Pain, moderate (4-7) Stop: 04/19/17 07:50 Pantoprazole Sodium (Protonix Inj) 40 mg IVP DAILY [facility] Last Admin: 04/18/17 12:05 Dose: 40 mg Potassium Chloride (K-Dur 20 Meq Er Tab) 40 meq PO BRK [facility] Zinc Sulfate (Zinc Sulfate 220 Mg Cap) 220 mg PO DAILY [facility] Last Admin: 04/18/17 12:06 Dose: Not Given - Labs Labs: 04/18/17 08:10 04/18/17 08:10 PT 11.9 SECONDS (9.7-12.2) 04/13/17 06:28 INR 1.1 04/13/17 06:28 APTT 27 SECONDS (21-34) 04/13/17 06:28 - Constitutional Appears: Well - Head Exam Head Exam: ATRAUMATIC, NORMAL INSPECTION, NORMOCEPHALIC - Eye Exam Eye Exam: EOMI, Normal appearance, PERRL Pupil Exam: NORMAL ACCOMODATION, PERRL - ENT Exam ENT Exam: Mucous Membranes Moist, Normal Exam - Neck Exam Neck Exam: Full ROM, Normal Inspection. absent: Lymphadenopathy - Respiratory Exam Respiratory Exam: Decreased Breath Sounds - Cardiovascular Exam Cardiovascular Exam: REGULAR RHYTHM, +S1, +S2. absent: Murmur - GI/Abdominal Exam GI & Abdominal Exam: Soft, Normal Bowel Sounds. absent: Tenderness - Rectal Exam Rectal Exam: Deferred - Back Exam Back Exam: NORMAL INSPECTION - Neurological Exam Neurological Exam: Alert, Awake, CN II-XII Intact, Normal Gait, Oriented x3 - Psychiatric Exam Psychiatric exam: Normal Affect, Normal Mood - Skin Skin Exam: Dry, Intact, Normal Color, Warm Assessment and Plan (1) Colonic fistula Status: Acute (2) Displacement of Mckeon catheter Status: Acute - Assessment and Plan (Free Text) Plan: Patient examined. Diffuse abdominal pain present. Continue broad-spectrum antibiotic. Continue insulin, other antidiabetic medications, antihypertensive medications and supportive care.
[2017-04-19] MEDS: (Novolog) Insulin Aspart, Recombinant 100 u/ml 10 ml vial SC SCH ×4 (07:53→21:22)
[2017-04-19] MEDS: Potassium Chloride 20 mEq ER Tab PO SCH (07:53)
[2017-04-19 08:38] LABS: BASO % 0.2 % (0.0-2.0); EOS # 0.2 K/uL (0.0-0.7); HEMATOCRIT 31.3 % (34.0-47.0); LYMPH # 2.7 K/uL (1.0-4.3); LYMPH % 16.3 % (20.0-40.0); MEAN CELL VOLUME 83.3 fL (81.0-99.0); MEAN CORPUSCULAR HEMOGLOBIN 28.2 pg (27.0-31.0); MEAN CORPUSCULAR HGB CONC 33.8 g/dL (33.0-37.0); MONO % 5.8 % (0.0-10.0); RED CELL DISTRIBUTION WIDTH 15.2 % (11.5-14.5); WHITE BLOOD COUNT 16.5 K/uL (4.8-10.8)
[2017-04-19 09:13] LABS: CHLORIDE 96 mmol/L (98-107); POTASSIUM 3.8 mmol/L (3.6-5.2); SODIUM 127 mmol/L (132-148)
[2017-04-19 09:15] LABS: BILIRUBIN,TOTAL 0.6 mg/dL (0.2-1.3); CARBON DIOXIDE 23 mmol/L (22-30); GFR AFRICAN-AMERICAN > 60; TOTAL PROTEIN 5.9 g/dL (6.3-8.3)
[2017-04-19 09:16] LABS: ALB/GLOB RATIO 0.5 (1.0-2.1); ALKALINE PHOSPHATASE 130 U/L (38-126); ALT/SGPT 27 U/L (9-52); AST/SGOT 19 U/L (14-36); BLOOD UREA NITROGEN 22 mg/dL (7-17); CALCIUM 8.1 mg/dl (8.6-10.4); GLUCOSE,RANDOM 127 mg/dL (65-105); PHOSPHOROUS 4.1 mg/dL (2.5-4.5)
[2017-04-19 09:17] LABS: MAGNESIUM 1.4 mg/dL (1.6-2.3)
[2017-04-19] MEDS: Fluconazole IV 100mg/50 ml NS 50 ML IVPB SCH (10:25)
[2017-04-19] MEDS: Lactobacillus Acidophilus 500 MU Cap PO SCH (10:25)
[2017-04-19] MEDS: Magnesium Oxide 400 mg Tab UD PO SCH (10:26)
--- NOTE | 2017-04-19 10:39 | CP.PCM.PN ---
<DeoZari - Last Filed: 04/19/17 10:35> Subjective - Date & Time of Evaluation Date of Evaluation: 04/19/17 Time of Evaluation: 06:45 - Subjective Subjective: General Surgery Dr. Cabral Pt S&E @bedside. NAEO. no complaints. admits to abd pain, though controlled w/ meds. denies N/V, F/C. tolerating diet. Objective - Vital Signs/Intake and Output Vital Signs (last 24 hours): Temp Pulse Resp BP Pulse Ox 98.0 F 112 H 18 98/61 L 100 04/19/17 08:31 04/19/17 08:31 04/19/17 08:31 04/19/17 08:31 04/19/17 08:31 Intake and Output: 04/19/17 04/19/17 06:59 18:59 Intake Total 250 Output Total 562 Balance -312 - Medications Medications: Current Medications Acetaminophen (Tylenol 325mg Tab) 650 mg PO Q4 PRN PRN Reason: Fever >100.4 F Ascorbic Acid (Vitamin C 500 Mg Tab) 500 mg PO DAILY [facility] Last Admin: 04/19/17 10:26 Dose: 500 mg Heparin Sodium (Porcine) (Heparin) 5,000 units SC Q12 [facility] Last Admin: 04/19/17 10:25 Dose: 5,000 units Tigecycline 50 mg/ Sodium (Chloride) 100 mls @ 100 mls/hr IVPB Q12H [facility] Last Admin: 04/19/17 05:09 Dose: 100 mls/hr Fluconazole (Diflucan Iv 100 Mg/50 Ml Ns) 50 mls @ 50 mls/hr IVPB Q24H [facility] Last Admin: 04/19/17 10:25 Dose: 50 mls/hr Insulin Aspart (Novolog) 0 unit SC ACHS [facility] PRN Reason: Protocol Last Admin: 04/19/17 07:53 Dose: 2 unit Lactobacillus Acidophilus (Bacid Acidophilus) 1 cap PO DAILY [facility] Last Admin: 04/19/17 10:25 Dose: 1 cap Magnesium Oxide (Mag-Ox) 400 mg PO DAILY [facility] Last Admin: 04/19/17 10:26 Dose: 400 mg Morphine Sulfate (Morphine) 4 mg IVP Q4 PRN PRN Reason: Pain, severe (8-10) Last Admin: 04/18/17 20:02 Dose: 4 mg Multivitamins/Vitamin C (Multi-Delyn Liquid) 5 ml PO DAILY [facility] Ondansetron HCl (Zofran Inj) 4 mg IVP Q4 PRN PRN Reason: Nausea/Vomiting Last Admin: 04/15/17 17:55 Dose: 4 mg Pantoprazole Sodium (Protonix Inj) 40 mg IVP DAILY [facility] Last Admin: 04/19/17 10:28 Dose: 40 mg Potassium Chloride (K-Dur 20 Meq Er Tab) 40 meq PO BRK [facility] Last Admin: 04/19/17 07:53 Dose: 40 meq Tramadol HCl (Ultram) 50 mg PO TID [facility] Zinc Sulfate (Zinc Sulfate 220 Mg Cap) 220 mg PO DAILY [facility] Last Admin: 04/19/17 10:26 Dose: 220 mg - Labs Labs: 04/19/17 08:21 04/19/17 08:21 PT 11.9 SECONDS (9.7-12.2) 04/13/17 06:28 INR 1.1 04/13/17 06:28 APTT 27 SECONDS (21-34) 04/13/17 06:28 - Constitutional Appears: Non-toxic, No Acute Distress, Cachectic, Chronically Ill - Head Exam Head Exam: NORMAL INSPECTION - Eye Exam Eye Exam: Normal appearance - ENT Exam ENT Exam: Mucous Membranes Moist - Respiratory Exam Respiratory Exam: NORMAL BREATHING PATTERN. absent: Accessory Muscle Use, Respiratory Distress - Cardiovascular Exam Cardiovascular Exam: Tachycardia - GI/Abdominal Exam GI & Abdominal Exam: Soft, Tenderness (brandt-incisional TTP). absent: Distended , Firm, Guarding, Rebound Additional comments: incision draining serousanguinous fluid. no induration, erythema saad drain w/ scant serous output b/l nephrostomy tubes present ileostomy w/ semi-solid stool - Extremities Exam Extremities Exam: Normal Inspection - Neurological Exam Neurological Exam: Alert, Awake - Psychiatric Exam Psychiatric exam: Normal Affect, Normal Mood - Skin Skin Exam: Dry, Normal Color, Warm Assessment and Plan - Assessment and Plan (Free Text) Assessment: 61 y/o F POD#7 s/p ex-lap w/ small bowel resections, bladder repair, and ileostomy - cont pain management, start Tramadol [facility] - trend labs - WBC unchanged - cont IV Abx - replete electrolytes PRN - encourage PO intake and meal supplements. - Encourage OOB to chair/Amb/IS use - begin D/C planning Will discuss w/ Dr. Misha Desouza DO PGY2 <Sumeet Cabral - Last Filed: 04/20/17 21:08> Objective - Vital Signs/Intake and Output Vital Signs (last 24 hours): Temp Pulse Resp BP Pulse Ox 98.2 F 100 H 18 103/70 100 04/20/17 15:35 04/20/17 15:35 04/20/17 15:35 04/20/17 15:35 04/20/17 15:35 - Medications Medications: Current Medications Acetaminophen (Tylenol 325mg Tab) 650 mg PO Q4 PRN PRN Reason: Fever >100.4 F Ascorbic Acid (Vitamin C 500 Mg Tab) 500 mg PO DAILY [facility] Last Admin: 04/20/17 10:29 Dose: Not Given Heparin Sodium (Porcine) (Heparin) 5,000 units SC Q12 [facility] Last Admin: 04/20/17 10:28 Dose: Not Given Tigecycline 50 mg/ Sodium (Chloride) 100 mls @ 100 mls/hr IVPB Q12H [facility] Last Admin: 04/20/17 17:45 Dose: 100 mls/hr Fluconazole (Diflucan Iv 100 Mg/50 Ml Ns) 50 mls @ 50 mls/hr IVPB Q24H [facility] Last Admin: 04/20/17 13:42 Dose: 50 mls/hr Insulin Aspart (Novolog) 0 unit SC ACHS [facility] PRN Reason: Protocol Last Admin: 04/20/17 17:47 Dose: 4 unit Lactobacillus Acidophilus (Bacid Acidophilus) 1 cap PO DAILY [facility] Last Admin: 04/20/17 10:27 Dose: Not Given Magnesium Oxide (Mag-Ox) 400 mg PO DAILY [facility] Last Admin: 04/20/17 10:28 Dose: Not Given Morphine Sulfate (Morphine) 4 mg IVP Q4 PRN PRN Reason: Pain, severe (8-10) Last Admin: 04/20/17 10:24 Dose: 4 mg Multivitamins (Hexavitamin) 1 tab PO DAILY [facility] Last Admin: 04/20/17 10:28 Dose: Not Given Ondansetron HCl (Zofran Inj) 4 mg IVP Q4 PRN PRN Reason: Nausea/Vomiting Last Admin: 04/20/17 10:24 Dose: 4 mg Pantoprazole Sodium (Protonix Inj) 40 mg IVP DAILY [facility] Last Admin: 04/20/17 10:28 Dose: Not Given Potassium Chloride (K-Dur 20 Meq Er Tab) 40 meq PO BRK [facility] Last Admin: 04/20/17 09:14 Dose: Not Given Tramadol HCl (Ultram) 50 mg PO TID [facility] Last Admin: 04/20/17 17:47 Dose: 50 mg Zinc Sulfate (Zinc Sulfate 220 Mg Cap) 220 mg PO DAILY [facility] Last Admin: 04/20/17 10:29 Dose: Not Given - Labs Labs: 04/19/17 08:21 04/19/17 08:21 PT 11.9 SECONDS (9.7-12.2) 04/13/17 06:28 INR 1.1 04/13/17 06:28 APTT 27 SECONDS (21-34) 04/13/17 06:28 Attending/Attestation - Attestation I have personally seen and examined this patient.: Yes I have fully participated in the care of the patient.: Yes I have reviewed all pertinent clinical information, including history, physical exam and plan: Yes Notes (Text): 04/20/17 21:07 Pt was seen and examined at bedside Agree with above note and assessment Wound care consult c/w IV antibiotics Plan d.w pt in detail
[2017-04-19] MEDS: Multiple Vitamins Tab PO SCH (11:20)
--- NOTE | 2017-04-19 19:17 | CP.PCM.PN ---
Subjective - Date & Time of Evaluation Date of Evaluation: 04/19/17 Time of Evaluation: 10:00 - Subjective Subjective: clinically same Objective - Vital Signs/Intake and Output Vital Signs (last 24 hours): Temp Pulse Resp BP Pulse Ox 98.7 F 114 H 18 104/67 100 04/19/17 15:45 04/19/17 15:45 04/19/17 15:45 04/19/17 15:45 04/19/17 15:45 Intake and Output: 04/19/17 04/20/17 18:59 06:59 Intake Total 350 Output Total 829 Balance -479 - Medications Medications: Current Medications Acetaminophen (Tylenol 325mg Tab) 650 mg PO Q4 PRN PRN Reason: Fever >100.4 F Ascorbic Acid (Vitamin C 500 Mg Tab) 500 mg PO DAILY [facility] Last Admin: 04/19/17 10:26 Dose: 500 mg Heparin Sodium (Porcine) (Heparin) 5,000 units SC Q12 [facility] Last Admin: 04/19/17 10:25 Dose: 5,000 units Tigecycline 50 mg/ Sodium (Chloride) 100 mls @ 100 mls/hr IVPB Q12H [facility] Last Admin: 04/19/17 18:40 Dose: 100 mls/hr Fluconazole (Diflucan Iv 100 Mg/50 Ml Ns) 50 mls @ 50 mls/hr IVPB Q24H [facility] Last Admin: 04/19/17 10:25 Dose: 50 mls/hr Insulin Aspart (Novolog) 0 unit SC ACHS [facility] PRN Reason: Protocol Last Admin: 04/19/17 18:39 Dose: Not Given Lactobacillus Acidophilus (Bacid Acidophilus) 1 cap PO DAILY [facility] Last Admin: 04/19/17 10:25 Dose: 1 cap Magnesium Oxide (Mag-Ox) 400 mg PO DAILY [facility] Last Admin: 04/19/17 10:26 Dose: 400 mg Morphine Sulfate (Morphine) 4 mg IVP Q4 PRN PRN Reason: Pain, severe (8-10) Last Admin: 04/18/17 20:02 Dose: 4 mg Multivitamins (Hexavitamin) 1 tab PO DAILY [facility] Last Admin: 04/19/17 11:20 Dose: 1 tab Ondansetron HCl (Zofran Inj) 4 mg IVP Q4 PRN PRN Reason: Nausea/Vomiting Last Admin: 04/15/17 17:55 Dose: 4 mg Pantoprazole Sodium (Protonix Inj) 40 mg IVP DAILY [facility] Last Admin: 04/19/17 10:28 Dose: 40 mg Potassium Chloride (K-Dur 20 Meq Er Tab) 40 meq PO BRK [facility] Last Admin: 04/19/17 07:53 Dose: 40 meq Tramadol HCl (Ultram) 50 mg PO TID [facility] Last Admin: 04/19/17 18:41 Dose: Not Given Zinc Sulfate (Zinc Sulfate 220 Mg Cap) 220 mg PO DAILY [facility] Last Admin: 04/19/17 10:26 Dose: 220 mg - Labs Labs: 04/19/17 08:21 04/19/17 08:21 PT 11.9 SECONDS (9.7-12.2) 04/13/17 06:28 INR 1.1 04/13/17 06:28 APTT 27 SECONDS (21-34) 04/13/17 06:28 - Constitutional Appears: Well - Head Exam Head Exam: ATRAUMATIC, NORMAL INSPECTION, NORMOCEPHALIC - Eye Exam Eye Exam: EOMI, Normal appearance, PERRL Pupil Exam: NORMAL ACCOMODATION, PERRL - ENT Exam ENT Exam: Mucous Membranes Moist, Normal Exam - Neck Exam Neck Exam: Full ROM, Normal Inspection. absent: Lymphadenopathy - Respiratory Exam Respiratory Exam: Decreased Breath Sounds - Cardiovascular Exam Cardiovascular Exam: REGULAR RHYTHM, +S1, +S2 - GI/Abdominal Exam GI & Abdominal Exam: Soft, Diminished Bowel Sounds - Rectal Exam Rectal Exam: Deferred - Back Exam Back Exam: NORMAL INSPECTION - Neurological Exam Neurological Exam: Alert, Awake, CN II-XII Intact, Normal Gait, Oriented x3 - Psychiatric Exam Psychiatric exam: Normal Affect, Normal Mood - Skin Skin Exam: Dry, Intact, Normal Color, Warm Assessment and Plan (1) Colonic fistula Status: Acute (2) Displacement of Mckeon catheter Status: Acute - Assessment and Plan (Free Text) Plan: Patient examined. Diffuse abdominal pain present. Continue broad-spectrum antibiotic. Continue insulin, other antidiabetic medications, antihypertensive medications and supportive care.
[2017-04-20] MEDS: Potassium Chloride 20 mEq ER Tab PO SCH ×2 (08:09→09:14)
[2017-04-20] MEDS: (Novolog) Insulin Aspart, Recombinant 100 u/ml 10 ml vial SC SCH ×4 (08:21→21:34)
[2017-04-20] MEDS: Morphine 4 MG/ML VIAL IVP PRN (10:24)
[2017-04-20] MEDS: Lactobacillus Acidophilus 500 MU Cap PO SCH (10:27)
[2017-04-20] MEDS: Magnesium Oxide 400 mg Tab UD PO SCH (10:28)
[2017-04-20] MEDS: Multiple Vitamins Tab PO SCH (10:28)
--- NOTE | 2017-04-20 12:32 | CP.PCM.PN ---
<Tod Diaz - Last Filed: 04/20/17 12:35> Subjective - Date & Time of Evaluation Date of Evaluation: 04/20/17 Time of Evaluation: 12:29 - Subjective Subjective: General Surgery Note for Dr. Cabral Patient seen and examined at bedside. KATHERINE. Patient is still complaining of some abdominal pain. She is tolerating diet. No other complaints at this time. Objective - Vital Signs/Intake and Output Vital Signs (last 24 hours): Temp Pulse Resp BP Pulse Ox 97.7 F 96 H 18 106/71 100 04/20/17 08:27 04/20/17 08:27 04/20/17 08:27 04/20/17 08:27 04/20/17 08:27 Intake and Output: 04/20/17 04/20/17 06:59 18:59 Intake Total 250 Output Total 580 Balance -330 - Medications Medications: Current Medications Acetaminophen (Tylenol 325mg Tab) 650 mg PO Q4 PRN PRN Reason: Fever >100.4 F Ascorbic Acid (Vitamin C 500 Mg Tab) 500 mg PO DAILY [facility] Last Admin: 04/20/17 10:29 Dose: Not Given Heparin Sodium (Porcine) (Heparin) 5,000 units SC Q12 [facility] Last Admin: 04/20/17 10:28 Dose: Not Given Tigecycline 50 mg/ Sodium (Chloride) 100 mls @ 100 mls/hr IVPB Q12H [facility] Last Admin: 04/20/17 05:42 Dose: 100 mls/hr Fluconazole (Diflucan Iv 100 Mg/50 Ml Ns) 50 mls @ 50 mls/hr IVPB Q24H [facility] Last Admin: 04/19/17 10:25 Dose: 50 mls/hr Insulin Aspart (Novolog) 0 unit SC ACHS [facility] PRN Reason: Protocol Last Admin: 04/20/17 08:21 Dose: 4 unit Lactobacillus Acidophilus (Bacid Acidophilus) 1 cap PO DAILY [facility] Last Admin: 04/20/17 10:27 Dose: Not Given Magnesium Oxide (Mag-Ox) 400 mg PO DAILY [facility] Last Admin: 04/20/17 10:28 Dose: Not Given Morphine Sulfate (Morphine) 4 mg IVP Q4 PRN PRN Reason: Pain, severe (8-10) Last Admin: 04/20/17 10:24 Dose: 4 mg Multivitamins (Hexavitamin) 1 tab PO DAILY [facility] Last Admin: 04/20/17 10:28 Dose: Not Given Ondansetron HCl (Zofran Inj) 4 mg IVP Q4 PRN PRN Reason: Nausea/Vomiting Last Admin: 04/20/17 10:24 Dose: 4 mg Pantoprazole Sodium (Protonix Inj) 40 mg IVP DAILY [facility] Last Admin: 04/20/17 10:28 Dose: Not Given Potassium Chloride (K-Dur 20 Meq Er Tab) 40 meq PO BRK [facility] Last Admin: 04/20/17 09:14 Dose: Not Given Tramadol HCl (Ultram) 50 mg PO TID [facility] Last Admin: 04/20/17 10:29 Dose: Not Given Zinc Sulfate (Zinc Sulfate 220 Mg Cap) 220 mg PO DAILY [facility] Last Admin: 04/20/17 10:29 Dose: Not Given - Labs Labs: 04/19/17 08:21 04/19/17 08:21 PT 11.9 SECONDS (9.7-12.2) 04/13/17 06:28 INR 1.1 04/13/17 06:28 APTT 27 SECONDS (21-34) 04/13/17 06:28 - Constitutional Appears: No Acute Distress, Cachectic - Head Exam Head Exam: ATRAUMATIC, NORMOCEPHALIC - Eye Exam Eye Exam: Normal appearance - ENT Exam ENT Exam: Mucous Membranes Moist - Respiratory Exam Respiratory Exam: NORMAL BREATHING PATTERN - Cardiovascular Exam Cardiovascular Exam: REGULAR RHYTHM - GI/Abdominal Exam GI & Abdominal Exam: Soft, Tenderness (incisional). absent: Distended, Firm, Guarding Additional comments: incision draining serousanguinous fluid. no induration, erythema saad drain - minimal output bilateral nephrostomy tubes ileostomy with semi-solid stool output - Neurological Exam Neurological Exam: Alert, Awake - Psychiatric Exam Psychiatric exam: Normal Affect, Normal Mood - Skin Skin Exam: Dry, Normal Color, Warm Assessment and Plan - Assessment and Plan (Free Text) Plan: 61 F POD#7 s/p ex-lap w/ small bowel resections, bladder repair, and ileostomy -Continue IV ABX and replete electrolytes as needed -Analgesics PRN -Regular diet and supplements -OOB to chair, Ambulation, and IS -D/C planning -Will DW Dr. Misha Diaz PGY1 <Sumeet Cabral B - Last Filed: 04/20/17 21:14> Objective - Vital Signs/Intake and Output Vital Signs (last 24 hours): Temp Pulse Resp BP Pulse Ox 98.2 F 100 H 18 103/70 100 04/20/17 15:35 04/20/17 15:35 04/20/17 15:35 04/20/17 15:35 04/20/17 15:35 - Medications Medications: Current Medications Acetaminophen (Tylenol 325mg Tab) 650 mg PO Q4 PRN PRN Reason: Fever >100.4 F Ascorbic Acid (Vitamin C 500 Mg Tab) 500 mg PO DAILY [facility] Last Admin: 04/20/17 10:29 Dose: Not Given Heparin Sodium (Porcine) (Heparin) 5,000 units SC Q12 [facility] Last Admin: 04/20/17 10:28 Dose: Not Given Tigecycline 50 mg/ Sodium (Chloride) 100 mls @ 100 mls/hr IVPB Q12H [facility] Last Admin: 04/20/17 17:45 Dose: 100 mls/hr Fluconazole (Diflucan Iv 100 Mg/50 Ml Ns) 50 mls @ 50 mls/hr IVPB Q24H [facility] Last Admin: 04/20/17 13:42 Dose: 50 mls/hr Insulin Aspart (Novolog) 0 unit SC ACHS [facility] PRN Reason: Protocol Last Admin: 04/20/17 17:47 Dose: 4 unit Lactobacillus Acidophilus (Bacid Acidophilus) 1 cap PO DAILY [facility] Last Admin: 04/20/17 10:27 Dose: Not Given Magnesium Oxide (Mag-Ox) 400 mg PO DAILY [facility] Last Admin: 04/20/17 10:28 Dose: Not Given Morphine Sulfate (Morphine) 4 mg IVP Q4 PRN PRN Reason: Pain, severe (8-10) Last Admin: 04/20/17 10:24 Dose: 4 mg Multivitamins (Hexavitamin) 1 tab PO DAILY [facility] Last Admin: 04/20/17 10:28 Dose: Not Given Ondansetron HCl (Zofran Inj) 4 mg IVP Q4 PRN PRN Reason: Nausea/Vomiting Last Admin: 04/20/17 10:24 Dose: 4 mg Pantoprazole Sodium (Protonix Inj) 40 mg IVP DAILY [facility] Last Admin: 04/20/17 10:28 Dose: Not Given Potassium Chloride (K-Dur 20 Meq Er Tab) 40 meq PO BRK [facility] Last Admin: 04/20/17 09:14 Dose: Not Given Tramadol HCl (Ultram) 50 mg PO TID [facility] Last Admin: 04/20/17 17:47 Dose: 50 mg Zinc Sulfate (Zinc Sulfate 220 Mg Cap) 220 mg PO DAILY [facility] Last Admin: 04/20/17 10:29 Dose: Not Given - Labs Labs: 04/19/17 08:21 04/19/17 08:21 PT 11.9 SECONDS (9.7-12.2) 04/13/17 06:28 INR 1.1 04/13/17 06:28 APTT 27 SECONDS (21-34) 04/13/17 06:28 Attending/Attestation - Attestation I have personally seen and examined this patient.: Yes I have fully participated in the care of the patient.: Yes I have reviewed all pertinent clinical information, including history, physical exam and plan: Yes Notes (Text): 04/20/17 21:14 Pt was seen and examined at bedside Agree with above note and assessment Wound care consult c/w IV antibiotics Plan d.w pt in detail
[2017-04-20] MEDS: Fluconazole IV 100mg/50 ml NS 50 ML IVPB SCH (13:42)
--- NOTE | 2017-04-20 18:07 | CP.PCM.PN ---
Subjective - Date & Time of Evaluation Date of Evaluation: 04/20/17 Time of Evaluation: 09:20 - Subjective Subjective: clinically same Objective - Vital Signs/Intake and Output Vital Signs (last 24 hours): Temp Pulse Resp BP Pulse Ox 98.2 F 100 H 18 103/70 100 04/20/17 15:35 04/20/17 15:35 04/20/17 15:35 04/20/17 15:35 04/20/17 15:35 Intake and Output: 04/20/17 04/20/17 06:59 18:59 Intake Total 250 Output Total 580 Balance -330 - Medications Medications: Current Medications Acetaminophen (Tylenol 325mg Tab) 650 mg PO Q4 PRN PRN Reason: Fever >100.4 F Ascorbic Acid (Vitamin C 500 Mg Tab) 500 mg PO DAILY [facility] Last Admin: 04/20/17 10:29 Dose: Not Given Heparin Sodium (Porcine) (Heparin) 5,000 units SC Q12 [facility] Last Admin: 04/20/17 10:28 Dose: Not Given Tigecycline 50 mg/ Sodium (Chloride) 100 mls @ 100 mls/hr IVPB Q12H [facility] Last Admin: 04/20/17 17:45 Dose: 100 mls/hr Fluconazole (Diflucan Iv 100 Mg/50 Ml Ns) 50 mls @ 50 mls/hr IVPB Q24H [facility] Last Admin: 04/20/17 13:42 Dose: 50 mls/hr Insulin Aspart (Novolog) 0 unit SC ACHS [facility] PRN Reason: Protocol Last Admin: 04/20/17 17:47 Dose: 4 unit Lactobacillus Acidophilus (Bacid Acidophilus) 1 cap PO DAILY [facility] Last Admin: 04/20/17 10:27 Dose: Not Given Magnesium Oxide (Mag-Ox) 400 mg PO DAILY [facility] Last Admin: 04/20/17 10:28 Dose: Not Given Morphine Sulfate (Morphine) 4 mg IVP Q4 PRN PRN Reason: Pain, severe (8-10) Last Admin: 04/20/17 10:24 Dose: 4 mg Multivitamins (Hexavitamin) 1 tab PO DAILY [facility] Last Admin: 04/20/17 10:28 Dose: Not Given Ondansetron HCl (Zofran Inj) 4 mg IVP Q4 PRN PRN Reason: Nausea/Vomiting Last Admin: 04/20/17 10:24 Dose: 4 mg Pantoprazole Sodium (Protonix Inj) 40 mg IVP DAILY [facility] Last Admin: 04/20/17 10:28 Dose: Not Given Potassium Chloride (K-Dur 20 Meq Er Tab) 40 meq PO BRK [facility] Last Admin: 04/20/17 09:14 Dose: Not Given Tramadol HCl (Ultram) 50 mg PO TID [facility] Last Admin: 04/20/17 17:47 Dose: 50 mg Zinc Sulfate (Zinc Sulfate 220 Mg Cap) 220 mg PO DAILY [facility] Last Admin: 04/20/17 10:29 Dose: Not Given - Labs Labs: 04/19/17 08:21 04/19/17 08:21 PT 11.9 SECONDS (9.7-12.2) 04/13/17 06:28 INR 1.1 04/13/17 06:28 APTT 27 SECONDS (21-34) 04/13/17 06:28 - Constitutional Appears: Well - Head Exam Head Exam: ATRAUMATIC, NORMAL INSPECTION, NORMOCEPHALIC - Eye Exam Eye Exam: EOMI, Normal appearance, PERRL Pupil Exam: NORMAL ACCOMODATION, PERRL - ENT Exam ENT Exam: Mucous Membranes Moist, Normal Exam - Neck Exam Neck Exam: Full ROM, Normal Inspection. absent: Lymphadenopathy - Respiratory Exam Respiratory Exam: Decreased Breath Sounds - Cardiovascular Exam Cardiovascular Exam: REGULAR RHYTHM, +S1, +S2 - GI/Abdominal Exam GI & Abdominal Exam: Soft, Diminished Bowel Sounds - Rectal Exam Rectal Exam: Deferred - Back Exam Back Exam: NORMAL INSPECTION - Neurological Exam Neurological Exam: Alert, Awake, CN II-XII Intact, Normal Gait, Oriented x3 - Psychiatric Exam Psychiatric exam: Normal Affect, Normal Mood - Skin Skin Exam: Dry, Intact, Normal Color, Warm Assessment and Plan (1) Colonic fistula Status: Acute (2) Displacement of Mckeon catheter Status: Acute - Assessment and Plan (Free Text) Plan: Patient examined. Diffuse abdominal pain present. Continue broad-spectrum antibiotic. Continue insulin, other antidiabetic medications, antihypertensive medications and supportive care.
[2017-04-21] MEDS: Morphine 4 MG/ML VIAL IVP PRN (06:01)
[2017-04-21] MEDS: (Novolog) Insulin Aspart, Recombinant 100 u/ml 10 ml vial SC SCH ×5 (07:42→21:38)
[2017-04-21] MEDS ORDERED: Oxycodone/Acetaminophen 5/325 mg Tab PO PRN (08:58)
--- NOTE | 2017-04-21 09:03 | CP.PCM.PN ---
<DeoZari - Last Filed: 04/21/17 09:05> Subjective - Date & Time of Evaluation Date of Evaluation: 04/21/17 Time of Evaluation: 06:45 - Subjective Subjective: General Surgery Dr. Cabral Pt S&E @bedside. NAEO. c/o abd pain, though controlled w/ medication. denies N/V , F/C. tolerating diet. Objective - Vital Signs/Intake and Output Vital Signs (last 24 hours): Temp Pulse Resp BP Pulse Ox 97.6 F 114 H 17 93/63 L 95 04/21/17 08:29 04/21/17 08:29 04/21/17 08:29 04/21/17 08:29 04/21/17 08:29 Intake and Output: 04/21/17 04/21/17 06:59 18:59 Output Total 530 Balance -530 - Medications Medications: Current Medications Acetaminophen (Tylenol 325mg Tab) 650 mg PO Q4 PRN PRN Reason: Fever >100.4 F Ascorbic Acid (Vitamin C 500 Mg Tab) 500 mg PO DAILY [facility] Last Admin: 04/20/17 10:29 Dose: Not Given Heparin Sodium (Porcine) (Heparin) 5,000 units SC Q12 [facility] Last Admin: 04/20/17 21:34 Dose: 5,000 units Tigecycline 50 mg/ Sodium (Chloride) 100 mls @ 100 mls/hr IVPB Q12H [facility] Last Admin: 04/21/17 06:01 Dose: 100 mls/hr Fluconazole (Diflucan Iv 100 Mg/50 Ml Ns) 50 mls @ 50 mls/hr IVPB Q24H [facility] Last Admin: 04/20/17 13:42 Dose: 50 mls/hr Insulin Aspart (Novolog) 0 unit SC ACHS [facility] PRN Reason: Protocol Last Admin: 04/21/17 07:42 Dose: Not Given Lactobacillus Acidophilus (Bacid Acidophilus) 1 cap PO DAILY [facility] Last Admin: 04/20/17 10:27 Dose: Not Given Magnesium Oxide (Mag-Ox) 400 mg PO DAILY [facility] Last Admin: 04/20/17 10:28 Dose: Not Given Multivitamins (Hexavitamin) 1 tab PO DAILY [facility] Last Admin: 04/20/17 10:28 Dose: Not Given Ondansetron HCl (Zofran Inj) 4 mg IVP Q4 PRN PRN Reason: Nausea/Vomiting Last Admin: 04/20/17 10:24 Dose: 4 mg Pantoprazole Sodium (Protonix Ec Tab) 40 mg PO DAILY [facility] Potassium Chloride (K-Dur 20 Meq Er Tab) 40 meq PO BRK [facility] Last Admin: 04/20/17 09:14 Dose: Not Given Tramadol HCl (Ultram) 50 mg PO TID [facility] Last Admin: 04/20/17 17:47 Dose: 50 mg Zinc Sulfate (Zinc Sulfate 220 Mg Cap) 220 mg PO DAILY [facility] Last Admin: 04/20/17 10:29 Dose: Not Given - Labs Labs: 04/19/17 08:21 04/19/17 08:21 PT 11.9 SECONDS (9.7-12.2) 04/13/17 06:28 INR 1.1 04/13/17 06:28 APTT 27 SECONDS (21-34) 04/13/17 06:28 - Constitutional Appears: Non-toxic, No Acute Distress - Head Exam Head Exam: NORMAL INSPECTION - Eye Exam Eye Exam: Normal appearance - ENT Exam ENT Exam: Mucous Membranes Moist - Respiratory Exam Respiratory Exam: NORMAL BREATHING PATTERN. absent: Accessory Muscle Use, Respiratory Distress - Cardiovascular Exam Cardiovascular Exam: Tachycardia - GI/Abdominal Exam GI & Abdominal Exam: Soft, Tenderness (brandt-incisional TTP). absent: Distended , Guarding, Rebound Additional comments: new ostomy appliance - good seal, no leaks noted incision c/d/i. skin well approximated saad w/ 5cc serous fluid - Extremities Exam Extremities Exam: Normal Inspection - Back Exam Additional comments: b/l nephrostomy tubes - Neurological Exam Neurological Exam: Alert, Awake - Psychiatric Exam Psychiatric exam: Normal Affect, Normal Mood - Skin Skin Exam: Dry, Normal Color, Warm Assessment and Plan - Assessment and Plan (Free Text) Assessment: 61 y/o F POD#8 s/p ex-lap w/ small bowel resections, bladder repair, and ileostomy - wound care consulted - new ostomy appliance in place - f/u wound care recs - Cont Abx per ID - cont Tramadol, start Percocet for pain control - encourage PO intake - encourage OOB to chair/Amb/IS use - Per social work, pt is to return to longterm upon discharge Pt discussed w/ Dr. Misha Desouza DO PGY2 <Sumeet Cabral B - Last Filed: 04/22/17 14:05> Objective - Vital Signs/Intake and Output Vital Signs (last 24 hours): Temp Pulse Resp BP Pulse Ox 97.5 F L 106 H 20 97/59 L 99 04/22/17 08:00 04/22/17 08:00 04/22/17 08:00 04/22/17 08:00 04/22/17 08:00 Intake and Output: 04/22/17 04/22/17 06:59 18:59 Intake Total 740 Output Total 642 Balance 98 - Medications Medications: Current Medications Acetaminophen (Tylenol 325mg Tab) 650 mg PO Q4 PRN PRN Reason: Fever >100.4 F Ascorbic Acid (Vitamin C 500 Mg Tab) 500 mg PO DAILY [facility] Last Admin: 04/22/17 11:45 Dose: Not Given Diphenhydramine HCl (Benadryl) 25 mg IVP Q8 PRN PRN Reason: Itching / Pruritus Heparin Sodium (Porcine) (Heparin) 5,000 units SC Q12 [facility] Last Admin: 04/22/17 11:44 Dose: Not Given Tigecycline 50 mg/ Sodium (Chloride) 100 mls @ 100 mls/hr IVPB Q12H [facility] Last Admin: 04/22/17 05:30 Dose: 100 mls/hr Fluconazole (Diflucan Iv 100 Mg/50 Ml Ns) 50 mls @ 50 mls/hr IVPB Q24H [facility] Last Admin: 04/21/17 13:35 Dose: 50 mls/hr Insulin Aspart (Novolog) 0 unit SC ACHS [facility] PRN Reason: Protocol Last Admin: 04/22/17 07:38 Dose: 6 unit Lactobacillus Acidophilus (Bacid Acidophilus) 1 cap PO DAILY [facility] Last Admin: 04/22/17 11:43 Dose: Not Given Magnesium Oxide (Mag-Ox) 400 mg PO DAILY [facility] Last Admin: 04/22/17 11:45 Dose: Not Given Multivitamins (Hexavitamin) 1 tab PO DAILY [facility] Last Admin: 04/22/17 11:45 Dose: Not Given Ondansetron HCl (Zofran Inj) 4 mg IVP Q4 PRN PRN Reason: Nausea/Vomiting Last Admin: 04/20/17 10:24 Dose: 4 mg Oxycodone/Acetaminophen (Percocet 5/325 Mg Tab) 1 tab PO Q4H PRN PRN Reason: Pain, moderate (4-7) Stop: 04/24/17 08:59 Pantoprazole Sodium (Protonix Ec Tab) 40 mg PO DAILY [facility] Last Admin: 04/22/17 11:45 Dose: Not Given Potassium Chloride (K-Dur 20 Meq Er Tab) 40 meq PO BRK [facility] Last Admin: 04/22/17 09:56 Dose: Not Given Tramadol HCl (Ultram) 50 mg PO TID [facility] Last Admin: 04/22/17 11:45 Dose: Not Given Zinc Sulfate (Zinc Sulfate 220 Mg Cap) 220 mg PO DAILY [facility] Last Admin: 04/22/17 11:45 Dose: Not Given - Labs Labs: 04/21/17 13:50 04/21/17 13:50 PT 11.9 SECONDS (9.7-12.2) 04/13/17 06:28 INR 1.1 04/13/17 06:28 APTT 27 SECONDS (21-34) 04/13/17 06:28 Attending/Attestation - Attestation I have personally seen and examined this patient.: Yes I have fully participated in the care of the patient.: Yes I have reviewed all pertinent clinical information, including history, physical exam and plan: Yes Notes (Text): 04/22/17 14:04 Pt was seen and examined at bedside Agree with above note and assessment C.w IV antibiotics CT scan of A/P on monday Plan d.w pt in detail Wound care consult.
[2017-04-21] MEDS: Magnesium Oxide 400 mg Tab UD PO SCH (10:12)
[2017-04-21] MEDS: Pantoprazole 40 mg EC Tab PO SCH (10:12)
[2017-04-21] MEDS: Lactobacillus Acidophilus 500 MU Cap PO SCH (10:12)
[2017-04-21] MEDS: Multiple Vitamins Tab PO SCH (10:12)
[2017-04-21] MEDS: Fluconazole IV 100mg/50 ml NS 50 ML IVPB SCH (13:35)
[2017-04-21] MEDS ORDERED: DiphenhydrAMINE 50 mg/ml Inj IVP PRN (13:53)
[2017-04-21 14:00] LABS: BASO # 0.1 K/uL (0.0-0.2); BASO % 1.1 % (0.0-2.0); EOS # 0.1 K/uL (0.0-0.7); EOS % 1.1 % (0.0-4.0); HEMATOCRIT 37.2 % (34.0-47.0); LYMPH # 2.2 K/uL (1.0-4.3); LYMPH % 16.9 % (20.0-40.0); MEAN CORPUSCULAR HEMOGLOBIN 27.5 pg (27.0-31.0); MEAN CORPUSCULAR HGB CONC 32.2 g/dL (33.0-37.0); MEAN PLATELET VOLUME 8.4 fL (7.2-11.7); MONO # 0.8 K/uL (0.0-0.8); MONO % 5.9 % (0.0-10.0); NRBC % 0.1 % (0.0-2.0); RED CELL DISTRIBUTION WIDTH 15.5 % (11.5-14.5); WHITE BLOOD COUNT 13.3 K/uL (4.8-10.8)
[2017-04-21 14:01] LABS: MEAN CELL VOLUME 85.3 fL (81.0-99.0)
--- NOTE | 2017-04-21 14:01 | RAD ---
HISTORY: verify right PICC COMPARISON: Chest radiograph 04/12/2017 FINDINGS: LUNGS: No active pulmonary disease. PLEURA: No significant pleural effusion identified, no pneumothorax apparent. CARDIOVASCULAR: Normal cardiac size. In interval right upper extremity PICC been inserted terminating at the cavoatrial junction. OSSEOUS STRUCTURES: No significant abnormalities. VISUALIZED UPPER ABDOMEN: Pigtail catheter again noted right upper quadrant abdomen. OTHER FINDINGS: None. IMPRESSION: Status post PICC insertion as discussed above. No acute pulmonary or cardiac findings identified.
[2017-04-21 14:09] LABS: CHLORIDE 98 mmol/L (98-107); POTASSIUM 4.7 mmol/L (3.6-5.2); SODIUM 125 mmol/L (132-148)
[2017-04-21 14:11] LABS: GFR AFRICAN-AMERICAN > 60
[2017-04-21 14:12] LABS: ALB/GLOB RATIO 0.5 (1.0-2.1); ALKALINE PHOSPHATASE 179 U/L (38-126); ALT/SGPT 29 U/L (9-52); AST/SGOT 27 U/L (14-36); BILIRUBIN,TOTAL 0.5 mg/dL (0.2-1.3); BLOOD UREA NITROGEN 26 mg/dL (7-17); CALCIUM 8.5 mg/dl (8.6-10.4); CARBON DIOXIDE 20 mmol/L (22-30); GLUCOSE,RANDOM 232 mg/dL (65-105); TOTAL PROTEIN 6.6 g/dL (6.3-8.3)
[2017-04-21] MEDS: Potassium Chloride 20 mEq ER Tab PO SCH (14:27)
--- NOTE | 2017-04-21 17:02 | CP.PCM.PN ---
Subjective - Date & Time of Evaluation Date of Evaluation: 04/21/17 Time of Evaluation: 08:00 - Subjective Subjective: clinically improved multiple drains placed by surgery plan is for repeat CT next week, IV rx at [facility] Objective - Vital Signs/Intake and Output Vital Signs (last 24 hours): Temp Pulse Resp BP Pulse Ox 98.3 F 101 H 18 94/57 L 100 04/21/17 15:25 04/21/17 15:25 04/21/17 15:25 04/21/17 15:25 04/21/17 15:25 Intake and Output: 04/21/17 04/21/17 06:59 18:59 Output Total 530 180 Balance -530 -180 - Medications Medications: Current Medications Acetaminophen (Tylenol 325mg Tab) 650 mg PO Q4 PRN PRN Reason: Fever >100.4 F Ascorbic Acid (Vitamin C 500 Mg Tab) 500 mg PO DAILY [facility] Last Admin: 04/21/17 10:12 Dose: 500 mg Diphenhydramine HCl (Benadryl) 25 mg IVP Q8 PRN PRN Reason: Itching / Pruritus Heparin Sodium (Porcine) (Heparin) 5,000 units SC Q12 [facility] Last Admin: 04/21/17 10:12 Dose: 5,000 units Tigecycline 50 mg/ Sodium (Chloride) 100 mls @ 100 mls/hr IVPB Q12H [facility] Last Admin: 04/21/17 06:01 Dose: 100 mls/hr Fluconazole (Diflucan Iv 100 Mg/50 Ml Ns) 50 mls @ 50 mls/hr IVPB Q24H [facility] Last Admin: 04/21/17 13:35 Dose: 50 mls/hr Insulin Aspart (Novolog) 0 unit SC ACHS [facility] PRN Reason: Protocol Last Admin: 04/21/17 14:28 Dose: Not Given Lactobacillus Acidophilus (Bacid Acidophilus) 1 cap PO DAILY [facility] Last Admin: 04/21/17 10:12 Dose: 1 cap Magnesium Oxide (Mag-Ox) 400 mg PO DAILY [facility] Last Admin: 04/21/17 10:12 Dose: 400 mg Multivitamins (Hexavitamin) 1 tab PO DAILY [facility] Last Admin: 04/21/17 10:12 Dose: 1 tab Ondansetron HCl (Zofran Inj) 4 mg IVP Q4 PRN PRN Reason: Nausea/Vomiting Last Admin: 04/20/17 10:24 Dose: 4 mg Oxycodone/Acetaminophen (Percocet 5/325 Mg Tab) 1 tab PO Q4H PRN PRN Reason: Pain, moderate (4-7) Stop: 04/24/17 08:59 Pantoprazole Sodium (Protonix Ec Tab) 40 mg PO DAILY [facility] Last Admin: 04/21/17 10:12 Dose: 40 mg Potassium Chloride (K-Dur 20 Meq Er Tab) 40 meq PO BRK [facility] Last Admin: 04/21/17 14:27 Dose: Not Given Tramadol HCl (Ultram) 50 mg PO TID [facility] Last Admin: 04/21/17 13:35 Dose: 50 mg Zinc Sulfate (Zinc Sulfate 220 Mg Cap) 220 mg PO DAILY [facility] Last Admin: 04/21/17 10:12 Dose: 220 mg - Labs Labs: 04/21/17 13:50 04/21/17 13:50 PT 11.9 SECONDS (9.7-12.2) 04/13/17 06:28 INR 1.1 04/13/17 06:28 APTT 27 SECONDS (21-34) 04/13/17 06:28 - Constitutional Appears: Non-toxic, Chronically Ill - Head Exam Head Exam: NORMOCEPHALIC - Eye Exam Eye Exam: PERRL - ENT Exam ENT Exam: Mucous Membranes Dry - Neck Exam Neck Exam: absent: Lymphadenopathy - Respiratory Exam Respiratory Exam: Decreased Breath Sounds - Cardiovascular Exam Cardiovascular Exam: REGULAR RHYTHM - GI/Abdominal Exam GI & Abdominal Exam: Distended, Soft - Rectal Exam Rectal Exam: Deferred - Exam Exam: NORMAL INSPECTION - Extremities Exam Extremities Exam: absent: Pedal Edema - Back Exam Back Exam: absent: CVA tenderness (L), CVA tenderness (R) Assessment and Plan (1) Colonic fistula Status: Acute (2) Displacement of Mckeon catheter Status: Acute - Assessment and Plan (Free Text) Assessment: cont tygacil
--- NOTE | 2017-04-21 19:35 | CP.PCM.PN ---
Subjective - Date & Time of Evaluation Date of Evaluation: 04/21/17 Time of Evaluation: 09:00 - Subjective Subjective: clinically same Objective - Vital Signs/Intake and Output Vital Signs (last 24 hours): Temp Pulse Resp BP Pulse Ox 98.3 F 101 H 18 94/57 L 100 04/21/17 15:25 04/21/17 15:25 04/21/17 15:25 04/21/17 15:25 04/21/17 15:25 Intake and Output: 04/21/17 04/22/17 18:59 06:59 Output Total 180 Balance -180 - Medications Medications: Current Medications Acetaminophen (Tylenol 325mg Tab) 650 mg PO Q4 PRN PRN Reason: Fever >100.4 F Ascorbic Acid (Vitamin C 500 Mg Tab) 500 mg PO DAILY [facility] Last Admin: 04/21/17 10:12 Dose: 500 mg Diphenhydramine HCl (Benadryl) 25 mg IVP Q8 PRN PRN Reason: Itching / Pruritus Heparin Sodium (Porcine) (Heparin) 5,000 units SC Q12 [facility] Last Admin: 04/21/17 10:12 Dose: 5,000 units Tigecycline 50 mg/ Sodium (Chloride) 100 mls @ 100 mls/hr IVPB Q12H [facility] Last Admin: 04/21/17 17:26 Dose: 100 mls/hr Fluconazole (Diflucan Iv 100 Mg/50 Ml Ns) 50 mls @ 50 mls/hr IVPB Q24H [facility] Last Admin: 04/21/17 13:35 Dose: 50 mls/hr Insulin Aspart (Novolog) 0 unit SC ACHS [facility] PRN Reason: Protocol Last Admin: 04/21/17 17:25 Dose: 6 unit Lactobacillus Acidophilus (Bacid Acidophilus) 1 cap PO DAILY [facility] Last Admin: 04/21/17 10:12 Dose: 1 cap Magnesium Oxide (Mag-Ox) 400 mg PO DAILY [facility] Last Admin: 04/21/17 10:12 Dose: 400 mg Multivitamins (Hexavitamin) 1 tab PO DAILY [facility] Last Admin: 04/21/17 10:12 Dose: 1 tab Ondansetron HCl (Zofran Inj) 4 mg IVP Q4 PRN PRN Reason: Nausea/Vomiting Last Admin: 04/20/17 10:24 Dose: 4 mg Oxycodone/Acetaminophen (Percocet 5/325 Mg Tab) 1 tab PO Q4H PRN PRN Reason: Pain, moderate (4-7) Stop: 04/24/17 08:59 Pantoprazole Sodium (Protonix Ec Tab) 40 mg PO DAILY [facility] Last Admin: 04/21/17 10:12 Dose: 40 mg Potassium Chloride (K-Dur 20 Meq Er Tab) 40 meq PO BRK [facility] Last Admin: 04/21/17 14:27 Dose: Not Given Tramadol HCl (Ultram) 50 mg PO TID [facility] Last Admin: 04/21/17 17:24 Dose: 50 mg Zinc Sulfate (Zinc Sulfate 220 Mg Cap) 220 mg PO DAILY [facility] Last Admin: 04/21/17 10:12 Dose: 220 mg - Labs Labs: 04/21/17 13:50 04/21/17 13:50 PT 11.9 SECONDS (9.7-12.2) 04/13/17 06:28 INR 1.1 04/13/17 06:28 APTT 27 SECONDS (21-34) 04/13/17 06:28 - Constitutional Appears: Well - Head Exam Head Exam: ATRAUMATIC, NORMAL INSPECTION, NORMOCEPHALIC - Eye Exam Eye Exam: EOMI, Normal appearance, PERRL Pupil Exam: NORMAL ACCOMODATION, PERRL - ENT Exam ENT Exam: Mucous Membranes Moist, Normal Exam - Neck Exam Neck Exam: Full ROM, Normal Inspection. absent: Lymphadenopathy - Respiratory Exam Respiratory Exam: Decreased Breath Sounds - Cardiovascular Exam Cardiovascular Exam: REGULAR RHYTHM, +S1, +S2 - GI/Abdominal Exam GI & Abdominal Exam: Soft, Diminished Bowel Sounds - Rectal Exam Rectal Exam: Deferred - Back Exam Back Exam: NORMAL INSPECTION - Neurological Exam Neurological Exam: Alert, Awake, CN II-XII Intact, Normal Gait, Oriented x3 - Psychiatric Exam Psychiatric exam: Normal Affect, Normal Mood - Skin Skin Exam: Dry, Intact, Normal Color, Warm Assessment and Plan (1) Colonic fistula Status: Acute (2) Displacement of Mckeon catheter Status: Acute - Assessment and Plan (Free Text) Plan: Patient examined. Diffuse abdominal pain present. Continue broad-spectrum antibiotic. Continue insulin, other antidiabetic medications, antihypertensive medications and supportive care.
[2017-04-22] MEDS: (Novolog) Insulin Aspart, Recombinant 100 u/ml 10 ml vial SC SCH ×4 (07:38→21:30)
--- NOTE | 2017-04-22 09:54 | CP.PCM.PN ---
Subjective - Date & Time of Evaluation Date of Evaluation: 04/22/17 Time of Evaluation: 06:45 - Subjective Subjective: General Surgery Dr. Cabral Pt S&E @bedside. NAEO. pain well controlled. tolerating PO intake. Objective - Vital Signs/Intake and Output Vital Signs (last 24 hours): Temp Pulse Resp BP Pulse Ox 97.5 F L 106 H 20 97/59 L 99 04/22/17 08:00 04/22/17 08:00 04/22/17 08:00 04/22/17 08:00 04/22/17 08:00 Intake and Output: 04/22/17 04/22/17 06:59 18:59 Intake Total 740 Output Total 642 Balance 98 - Medications Medications: Current Medications Acetaminophen (Tylenol 325mg Tab) 650 mg PO Q4 PRN PRN Reason: Fever >100.4 F Ascorbic Acid (Vitamin C 500 Mg Tab) 500 mg PO DAILY [facility] Last Admin: 04/21/17 10:12 Dose: 500 mg Diphenhydramine HCl (Benadryl) 25 mg IVP Q8 PRN PRN Reason: Itching / Pruritus Heparin Sodium (Porcine) (Heparin) 5,000 units SC Q12 [facility] Last Admin: 04/21/17 21:34 Dose: 5,000 units Tigecycline 50 mg/ Sodium (Chloride) 100 mls @ 100 mls/hr IVPB Q12H [facility] Last Admin: 04/22/17 05:30 Dose: 100 mls/hr Fluconazole (Diflucan Iv 100 Mg/50 Ml Ns) 50 mls @ 50 mls/hr IVPB Q24H [facility] Last Admin: 04/21/17 13:35 Dose: 50 mls/hr Insulin Aspart (Novolog) 0 unit SC ACHS [facility] PRN Reason: Protocol Last Admin: 04/22/17 07:38 Dose: 6 unit Lactobacillus Acidophilus (Bacid Acidophilus) 1 cap PO DAILY [facility] Last Admin: 04/21/17 10:12 Dose: 1 cap Magnesium Oxide (Mag-Ox) 400 mg PO DAILY [facility] Last Admin: 04/21/17 10:12 Dose: 400 mg Multivitamins (Hexavitamin) 1 tab PO DAILY [facility] Last Admin: 04/21/17 10:12 Dose: 1 tab Ondansetron HCl (Zofran Inj) 4 mg IVP Q4 PRN PRN Reason: Nausea/Vomiting Last Admin: 04/20/17 10:24 Dose: 4 mg Oxycodone/Acetaminophen (Percocet 5/325 Mg Tab) 1 tab PO Q4H PRN PRN Reason: Pain, moderate (4-7) Stop: 04/24/17 08:59 Pantoprazole Sodium (Protonix Ec Tab) 40 mg PO DAILY [facility] Last Admin: 04/21/17 10:12 Dose: 40 mg Potassium Chloride (K-Dur 20 Meq Er Tab) 40 meq PO BRK [facility] Last Admin: 04/21/17 14:27 Dose: Not Given Tramadol HCl (Ultram) 50 mg PO TID [facility] Last Admin: 04/21/17 17:24 Dose: 50 mg Zinc Sulfate (Zinc Sulfate 220 Mg Cap) 220 mg PO DAILY [facility] Last Admin: 04/21/17 10:12 Dose: 220 mg - Labs Labs: 04/21/17 13:50 04/21/17 13:50 PT 11.9 SECONDS (9.7-12.2) 04/13/17 06:28 INR 1.1 04/13/17 06:28 APTT 27 SECONDS (21-34) 04/13/17 06:28 - Constitutional Appears: Non-toxic, No Acute Distress, Cachectic, Chronically Ill - Head Exam Head Exam: NORMAL INSPECTION - Eye Exam Eye Exam: Normal appearance - ENT Exam ENT Exam: Mucous Membranes Moist - Respiratory Exam Respiratory Exam: NORMAL BREATHING PATTERN. absent: Accessory Muscle Use, Respiratory Distress - Cardiovascular Exam Cardiovascular Exam: Tachycardia (imprved) - GI/Abdominal Exam GI & Abdominal Exam: Soft, Tenderness (brandt-incisional TTP). absent: Distended , Firm, Guarding, Rebound Additional comments: incision c/d/i ostomy w/ good output saad w/ scant serous output - Extremities Exam Extremities Exam: Normal Inspection - Back Exam Additional comments: b/l nephrostomy tubes - Neurological Exam Neurological Exam: Alert, Awake - Psychiatric Exam Psychiatric exam: Normal Affect, Normal Mood - Skin Skin Exam: Dry, Intact, Normal Color, Warm Assessment and Plan - Assessment and Plan (Free Text) Assessment: POD#10 s/p ex-lap, small bowel resection, bladder repair, ileostomy - leukocytosis trending down - cont pain management - [facility] - Do not remove gonzalez Pt discussed w/ Dr. Misha Desouza DO PGY2
[2017-04-22] MEDS: Potassium Chloride 20 mEq ER Tab PO SCH (09:56)
[2017-04-22] MEDS: Multiple Vitamins Tab PO SCH ×2 (10:59→11:45)
[2017-04-22] MEDS: Pantoprazole 40 mg EC Tab PO SCH ×2 (10:59→11:45)
[2017-04-22] MEDS: Magnesium Oxide 400 mg Tab UD PO SCH ×2 (10:59→11:45)
[2017-04-22] MEDS: Lactobacillus Acidophilus 500 MU Cap PO SCH (11:43)
[2017-04-22] MEDS: Fluconazole IV 100mg/50 ml NS 50 ML IVPB SCH (14:29)
--- NOTE | 2017-04-22 18:57 | CP.PCM.PN ---
Subjective - Date & Time of Evaluation Date of Evaluation: 04/22/17 Time of Evaluation: 09:20 - Subjective Subjective: clinically same Objective - Vital Signs/Intake and Output Vital Signs (last 24 hours): Temp Pulse Resp BP Pulse Ox 97.4 F L 114 H 18 91/58 L 99 04/22/17 15:41 04/22/17 15:41 04/22/17 15:41 04/22/17 15:41 04/22/17 15:41 Intake and Output: 04/22/17 04/22/17 06:59 18:59 Intake Total 740 Output Total 642 Balance 98 - Medications Medications: Current Medications Acetaminophen (Tylenol 325mg Tab) 650 mg PO Q4 PRN PRN Reason: Fever >100.4 F Ascorbic Acid (Vitamin C 500 Mg Tab) 500 mg PO DAILY [facility] Last Admin: 04/22/17 11:45 Dose: Not Given Diphenhydramine HCl (Benadryl) 25 mg IVP Q8 PRN PRN Reason: Itching / Pruritus Heparin Sodium (Porcine) (Heparin) 5,000 units SC Q12 [facility] Last Admin: 04/22/17 11:44 Dose: Not Given Tigecycline 50 mg/ Sodium (Chloride) 100 mls @ 100 mls/hr IVPB Q12H [facility] Last Admin: 04/22/17 18:32 Dose: 100 mls/hr Fluconazole (Diflucan Iv 100 Mg/50 Ml Ns) 50 mls @ 50 mls/hr IVPB Q24H [facility] Last Admin: 04/22/17 14:29 Dose: 50 mls/hr Insulin Aspart (Novolog) 0 unit SC ACHS [facility] PRN Reason: Protocol Last Admin: 04/22/17 18:32 Dose: 2 unit Lactobacillus Acidophilus (Bacid Acidophilus) 1 cap PO DAILY [facility] Last Admin: 04/22/17 11:43 Dose: Not Given Magnesium Oxide (Mag-Ox) 400 mg PO DAILY [facility] Last Admin: 04/22/17 11:45 Dose: Not Given Multivitamins (Hexavitamin) 1 tab PO DAILY [facility] Last Admin: 04/22/17 11:45 Dose: Not Given Ondansetron HCl (Zofran Inj) 4 mg IVP Q4 PRN PRN Reason: Nausea/Vomiting Last Admin: 04/20/17 10:24 Dose: 4 mg Oxycodone/Acetaminophen (Percocet 5/325 Mg Tab) 1 tab PO Q4H PRN PRN Reason: Pain, moderate (4-7) Stop: 04/24/17 08:59 Pantoprazole Sodium (Protonix Ec Tab) 40 mg PO DAILY [facility] Last Admin: 04/22/17 11:45 Dose: Not Given Potassium Chloride (K-Dur 20 Meq Er Tab) 40 meq PO BRK [facility] Last Admin: 04/22/17 09:56 Dose: Not Given Tramadol HCl (Ultram) 50 mg PO TID [facility] Last Admin: 04/22/17 18:33 Dose: 50 mg Zinc Sulfate (Zinc Sulfate 220 Mg Cap) 220 mg PO DAILY [facility] Last Admin: 04/22/17 11:45 Dose: Not Given - Labs Labs: 04/21/17 13:50 04/21/17 13:50 PT 11.9 SECONDS (9.7-12.2) 04/13/17 06:28 INR 1.1 04/13/17 06:28 APTT 27 SECONDS (21-34) 04/13/17 06:28 - Constitutional Appears: Well - Head Exam Head Exam: ATRAUMATIC, NORMAL INSPECTION, NORMOCEPHALIC - Eye Exam Eye Exam: EOMI, Normal appearance, PERRL Pupil Exam: NORMAL ACCOMODATION, PERRL - ENT Exam ENT Exam: Mucous Membranes Moist, Normal Exam - Neck Exam Neck Exam: Full ROM, Normal Inspection. absent: Lymphadenopathy - Respiratory Exam Respiratory Exam: Clear to Ausculation Bilateral, NORMAL BREATHING PATTERN - Cardiovascular Exam Cardiovascular Exam: REGULAR RHYTHM, +S1, +S2. absent: Murmur - GI/Abdominal Exam GI & Abdominal Exam: Soft, Normal Bowel Sounds. absent: Tenderness - Rectal Exam Rectal Exam: Deferred - Back Exam Back Exam: NORMAL INSPECTION - Neurological Exam Neurological Exam: Alert, Awake, CN II-XII Intact, Normal Gait, Oriented x3 - Psychiatric Exam Psychiatric exam: Normal Affect, Normal Mood - Skin Skin Exam: Dry, Intact, Normal Color, Warm Assessment and Plan (1) Colonic fistula Status: Acute (2) Displacement of Mckeon catheter Status: Acute - Assessment and Plan (Free Text) Plan: Patient examined. Diffuse abdominal pain present. Continue broad-spectrum antibiotic. Continue insulin, other antidiabetic medications, antihypertensive medications and supportive care.
[2017-04-22] MEDS ORDERED: Sodium Chloride 0.9% 500 ML IV ONE (20:33)
[2017-04-23] MEDS: (Novolog) Insulin Aspart, Recombinant 100 u/ml 10 ml vial SC SCH ×4 (08:16→21:30)
[2017-04-23] MEDS: Potassium Chloride 20 mEq ER Tab PO SCH (08:18)
[2017-04-23 08:37] LABS: HEMATOCRIT 30.5 % (34.0-47.0); MEAN CELL VOLUME 85.2 fL (81.0-99.0); MEAN CORPUSCULAR HGB CONC 32.9 g/dL (33.0-37.0); MEAN PLATELET VOLUME 8.8 fL (7.2-11.7); WHITE BLOOD COUNT 11.2 K/uL (4.8-10.8)
[2017-04-23 09:09] LABS: CHLORIDE 98 mmol/L (98-107); POTASSIUM 5.2 mmol/L (3.6-5.2); SODIUM 127 mmol/L (132-148)
[2017-04-23 09:11] LABS: GFR AFRICAN-AMERICAN > 60
[2017-04-23 09:12] LABS: BLOOD UREA NITROGEN 23 mg/dL (7-17); CALCIUM 6.6 mg/dl (8.6-10.4); CARBON DIOXIDE 22 mmol/L (22-30); GLUCOSE,RANDOM 221 mg/dL (65-105)
[2017-04-23] MEDS: Multiple Vitamins Tab PO SCH (10:30)
[2017-04-23] MEDS: Pantoprazole 40 mg EC Tab PO SCH (10:30)
[2017-04-23] MEDS: Magnesium Oxide 400 mg Tab UD PO SCH (10:31)
[2017-04-23] MEDS: Fluconazole IV 100mg/50 ml NS 50 ML IVPB SCH (11:51)
[2017-04-23] MEDS: Lactobacillus Acidophilus 500 MU Cap PO SCH (11:51)
--- NOTE | 2017-04-23 12:22 | CP.PCM.PN ---
Subjective - Date & Time of Evaluation Date of Evaluation: 04/23/17 Time of Evaluation: 07:00 - Subjective Subjective: GENERAL SURGERY PROGRESS NOTE FOR DR. AUSTIN Patient seen and examined at bedside. Tolerating diet. Pain controlled. Objective - Vital Signs/Intake and Output Vital Signs (last 24 hours): Temp Pulse Resp BP Pulse Ox 97.5 F L 64 20 159/89 H 97 04/23/17 08:46 04/23/17 08:46 04/23/17 08:46 04/23/17 08:46 04/23/17 08:46 Intake and Output: 04/23/17 04/23/17 06:59 18:59 Intake Total 460 Output Total 705 Balance -245 - Medications Medications: Current Medications Acetaminophen (Tylenol 325mg Tab) 650 mg PO Q4 PRN PRN Reason: Fever >100.4 F Ascorbic Acid (Vitamin C 500 Mg Tab) 500 mg PO DAILY [facility] Last Admin: 04/23/17 10:31 Dose: 500 mg Diphenhydramine HCl (Benadryl) 25 mg IVP Q8 PRN PRN Reason: Itching / Pruritus Heparin Sodium (Porcine) (Heparin) 5,000 units SC Q12 [facility] Last Admin: 04/23/17 10:31 Dose: 5,000 units Tigecycline 50 mg/ Sodium (Chloride) 100 mls @ 100 mls/hr IVPB Q12H [facility] Last Admin: 04/23/17 05:57 Dose: 100 mls/hr Fluconazole (Diflucan Iv 100 Mg/50 Ml Ns) 50 mls @ 50 mls/hr IVPB Q24H [facility] Last Admin: 04/23/17 11:51 Dose: 50 mls/hr Insulin Aspart (Novolog) 0 unit SC ACHS [facility] PRN Reason: Protocol Last Admin: 04/23/17 08:16 Dose: 6 unit Lactobacillus Acidophilus (Bacid Acidophilus) 1 cap PO DAILY [facility] Last Admin: 04/23/17 11:51 Dose: Not Given Magnesium Oxide (Mag-Ox) 400 mg PO DAILY [facility] Last Admin: 04/23/17 10:31 Dose: 400 mg Multivitamins (Hexavitamin) 1 tab PO DAILY [facility] Last Admin: 04/23/17 10:30 Dose: 1 tab Ondansetron HCl (Zofran Inj) 4 mg IVP Q4 PRN PRN Reason: Nausea/Vomiting Last Admin: 04/20/17 10:24 Dose: 4 mg Oxycodone/Acetaminophen (Percocet 5/325 Mg Tab) 1 tab PO Q4H PRN PRN Reason: Pain, moderate (4-7) Stop: 04/24/17 08:59 Pantoprazole Sodium (Protonix Ec Tab) 40 mg PO DAILY [facility] Last Admin: 04/23/17 10:30 Dose: 40 mg Potassium Chloride (K-Dur 20 Meq Er Tab) 40 meq PO BRK [facility] Last Admin: 04/23/17 08:18 Dose: Not Given Tramadol HCl (Ultram) 50 mg PO TID [facility] Last Admin: 04/23/17 10:30 Dose: 50 mg Zinc Sulfate (Zinc Sulfate 220 Mg Cap) 220 mg PO DAILY [facility] Last Admin: 04/23/17 10:31 Dose: 220 mg - Labs Labs: 04/23/17 08:22 04/23/17 08:22 PT 11.9 SECONDS (9.7-12.2) 04/13/17 06:28 INR 1.1 04/13/17 06:28 APTT 27 SECONDS (21-34) 04/13/17 06:28 - Constitutional Appears: Non-toxic, No Acute Distress - Head Exam Head Exam: ATRAUMATIC, NORMAL INSPECTION - Respiratory Exam Respiratory Exam: NORMAL BREATHING PATTERN. absent: Respiratory Distress - Cardiovascular Exam Cardiovascular Exam: Tachycardia, +S1, +S2 - GI/Abdominal Exam GI & Abdominal Exam: Soft, Tenderness (tenderness around midline incision). absent: Distended, Firm, Guarding, Rigid, Rebound Additional comments: Ileostomy with liquid stool in bag [place] with serosanguinous drainage - Neurological Exam Neurological Exam: Alert, Awake - Psychiatric Exam Psychiatric exam: Normal Affect, Normal Mood Assessment and Plan - Assessment and Plan (Free Text) Assessment: 61yo F POD#11 s/p ex-lap, small bowel resection, bladder repair, ileostomy - Leukocytosis continues trending down - [facility] - Do not remove gonzalez - Plan discussed w/ Dr. Misha Sims PGY-3
--- NOTE | 2017-04-23 14:24 | CP.PCM.PN ---
Subjective - Date & Time of Evaluation Date of Evaluation: 04/23/17 Time of Evaluation: 06:00 - Subjective Subjective: POD#11 s/p ex-lap, small bowel resection, bladder repair, ileostomy awake alert NAD Objective - Vital Signs/Intake and Output Vital Signs (last 24 hours): Temp Pulse Resp BP Pulse Ox 97.5 F L 64 20 159/89 H 97 04/23/17 08:46 04/23/17 08:46 04/23/17 08:46 04/23/17 08:46 04/23/17 08:46 Intake and Output: 04/23/17 04/23/17 06:59 18:59 Intake Total 460 Output Total 705 400 Balance -245 -400 - Medications Medications: Current Medications Acetaminophen (Tylenol 325mg Tab) 650 mg PO Q4 PRN PRN Reason: Fever >100.4 F Ascorbic Acid (Vitamin C 500 Mg Tab) 500 mg PO DAILY [facility] Last Admin: 04/23/17 10:31 Dose: 500 mg Diphenhydramine HCl (Benadryl) 25 mg IVP Q8 PRN PRN Reason: Itching / Pruritus Tigecycline 50 mg/ Sodium (Chloride) 100 mls @ 100 mls/hr IVPB Q12H [facility] Last Admin: 04/23/17 05:57 Dose: 100 mls/hr Fluconazole (Diflucan Iv 100 Mg/50 Ml Ns) 50 mls @ 50 mls/hr IVPB Q24H [facility] Last Admin: 04/23/17 11:51 Dose: 50 mls/hr Insulin Aspart (Novolog) 0 unit SC ACHS [facility] PRN Reason: Protocol Last Admin: 04/23/17 13:05 Dose: Not Given Lactobacillus Acidophilus (Bacid Acidophilus) 1 cap PO DAILY [facility] Last Admin: 04/23/17 11:51 Dose: Not Given Magnesium Oxide (Mag-Ox) 400 mg PO DAILY [facility] Last Admin: 04/23/17 10:31 Dose: 400 mg Multivitamins (Hexavitamin) 1 tab PO DAILY [facility] Last Admin: 04/23/17 10:30 Dose: 1 tab Ondansetron HCl (Zofran Inj) 4 mg IVP Q4 PRN PRN Reason: Nausea/Vomiting Last Admin: 04/20/17 10:24 Dose: 4 mg Oxycodone/Acetaminophen (Percocet 5/325 Mg Tab) 1 tab PO Q4H PRN PRN Reason: Pain, moderate (4-7) Stop: 04/24/17 08:59 Pantoprazole Sodium (Protonix Ec Tab) 40 mg PO DAILY [facility] Last Admin: 04/23/17 10:30 Dose: 40 mg Potassium Chloride (K-Dur 20 Meq Er Tab) 40 meq PO BRK [facility] Last Admin: 04/23/17 08:18 Dose: Not Given Tramadol HCl (Ultram) 50 mg PO TID [facility] Last Admin: 04/23/17 14:07 Dose: Not Given Zinc Sulfate (Zinc Sulfate 220 Mg Cap) 220 mg PO DAILY [facility] Last Admin: 04/23/17 10:31 Dose: 220 mg - Labs Labs: 04/23/17 08:22 04/23/17 08:22 PT 11.9 SECONDS (9.7-12.2) 04/13/17 06:28 INR 1.1 04/13/17 06:28 APTT 27 SECONDS (21-34) 04/13/17 06:28 - Constitutional Appears: Non-toxic, Cachectic, Chronically Ill - Head Exam Head Exam: NORMOCEPHALIC - Eye Exam Eye Exam: PERRL - ENT Exam ENT Exam: Mucous Membranes Dry - Neck Exam Neck Exam: absent: Lymphadenopathy - Respiratory Exam Respiratory Exam: Decreased Breath Sounds - Cardiovascular Exam Cardiovascular Exam: REGULAR RHYTHM - GI/Abdominal Exam GI & Abdominal Exam: Distended - Rectal Exam Rectal Exam: Deferred - Exam Exam: NORMAL INSPECTION - Extremities Exam Extremities Exam: absent: Pedal Edema - Back Exam Back Exam: absent: CVA tenderness (L), CVA tenderness (R) - Neurological Exam Neurological Exam: Alert, Awake, Oriented x3 - Psychiatric Exam Psychiatric exam: Depressed Assessment and Plan (1) Colonic fistula Status: Acute (2) Displacement of Mckeon catheter Status: Acute - Assessment and Plan (Free Text) Assessment: POD#11 s/p ex-lap, small bowel resection, bladder repair, ileostomy for d/c to [facility] to complete 3 more days iv rx
--- NOTE | 2017-04-23 19:35 | CP.PCM.PN ---
Subjective - Date & Time of Evaluation Date of Evaluation: 04/23/17 Time of Evaluation: 09:00 - Subjective Subjective: clincially same Objective - Vital Signs/Intake and Output Vital Signs (last 24 hours): Temp Pulse Resp BP Pulse Ox 98.2 F 105 H 18 90/58 L 99 04/23/17 15:50 04/23/17 15:50 04/23/17 15:50 04/23/17 15:50 04/23/17 15:50 Intake and Output: 04/23/17 04/24/17 18:59 06:59 Output Total 400 Balance -400 - Medications Medications: Current Medications Acetaminophen (Tylenol 325mg Tab) 650 mg PO Q4 PRN PRN Reason: Fever >100.4 F Ascorbic Acid (Vitamin C 500 Mg Tab) 500 mg PO DAILY [facility] Last Admin: 04/23/17 10:31 Dose: 500 mg Diphenhydramine HCl (Benadryl) 25 mg IVP Q8 PRN PRN Reason: Itching / Pruritus Tigecycline 50 mg/ Sodium (Chloride) 100 mls @ 100 mls/hr IVPB Q12H [facility] Last Admin: 04/23/17 17:05 Dose: 100 mls/hr Fluconazole (Diflucan Iv 100 Mg/50 Ml Ns) 50 mls @ 50 mls/hr IVPB Q24H [facility] Last Admin: 04/23/17 11:51 Dose: 50 mls/hr Insulin Aspart (Novolog) 0 unit SC ACHS [facility] PRN Reason: Protocol Last Admin: 04/23/17 16:35 Dose: 4 unit Lactobacillus Acidophilus (Bacid Acidophilus) 1 cap PO DAILY [facility] Last Admin: 04/23/17 11:51 Dose: Not Given Magnesium Oxide (Mag-Ox) 400 mg PO DAILY [facility] Last Admin: 04/23/17 10:31 Dose: 400 mg Multivitamins (Hexavitamin) 1 tab PO DAILY [facility] Last Admin: 04/23/17 10:30 Dose: 1 tab Ondansetron HCl (Zofran Inj) 4 mg IVP Q4 PRN PRN Reason: Nausea/Vomiting Last Admin: 04/20/17 10:24 Dose: 4 mg Oxycodone/Acetaminophen (Percocet 5/325 Mg Tab) 1 tab PO Q4H PRN PRN Reason: Pain, moderate (4-7) Stop: 04/24/17 08:59 Pantoprazole Sodium (Protonix Ec Tab) 40 mg PO DAILY [facility] Last Admin: 04/23/17 10:30 Dose: 40 mg Potassium Chloride (K-Dur 20 Meq Er Tab) 40 meq PO BRK [facility] Last Admin: 04/23/17 08:18 Dose: Not Given Tramadol HCl (Ultram) 50 mg PO TID [facility] Last Admin: 04/23/17 17:12 Dose: 50 mg Zinc Sulfate (Zinc Sulfate 220 Mg Cap) 220 mg PO DAILY [facility] Last Admin: 04/23/17 10:31 Dose: 220 mg - Labs Labs: 04/23/17 08:22 04/23/17 08:22 PT 11.9 SECONDS (9.7-12.2) 04/13/17 06:28 INR 1.1 04/13/17 06:28 APTT 27 SECONDS (21-34) 04/13/17 06:28 - Constitutional Appears: Well - Head Exam Head Exam: ATRAUMATIC, NORMAL INSPECTION, NORMOCEPHALIC - Eye Exam Eye Exam: EOMI, Normal appearance, PERRL Pupil Exam: NORMAL ACCOMODATION, PERRL - ENT Exam ENT Exam: Mucous Membranes Moist, Normal Exam - Neck Exam Neck Exam: Full ROM, Normal Inspection. absent: Lymphadenopathy - Respiratory Exam Respiratory Exam: Decreased Breath Sounds - Cardiovascular Exam Cardiovascular Exam: REGULAR RHYTHM, +S1, +S2 - GI/Abdominal Exam GI & Abdominal Exam: Soft, Diminished Bowel Sounds - Rectal Exam Rectal Exam: Deferred - Back Exam Back Exam: NORMAL INSPECTION - Neurological Exam Neurological Exam: Alert, Awake, CN II-XII Intact, Normal Gait, Oriented x3 - Psychiatric Exam Psychiatric exam: Normal Affect, Normal Mood - Skin Skin Exam: Dry, Intact, Normal Color, Warm Assessment and Plan (1) Colonic fistula Status: Acute (2) Displacement of Mckeon catheter Status: Acute - Assessment and Plan (Free Text) Plan: Patient examined. Diffuse abdominal pain present. Continue broad-spectrum antibiotic. Continue insulin, other antidiabetic medications, antihypertensive medications and supportive care.
[2017-04-24] MEDS ORDERED: Iohexol 240 (50 ml) PO ONE (09:45)
[2017-04-24] MEDS: Fluconazole IV 100mg/50 ml NS 50 ML IVPB SCH (11:17)
[2017-04-24] MEDS: Lactobacillus Acidophilus 500 MU Cap PO SCH (11:26)
[2017-04-24] MEDS: Multiple Vitamins Tab PO SCH (11:26)
[2017-04-24] MEDS: Potassium Chloride 20 mEq ER Tab PO SCH (11:26)
[2017-04-24] MEDS: Magnesium Oxide 400 mg Tab UD PO SCH (11:26)
[2017-04-24] MEDS: (Novolog) Insulin Aspart, Recombinant 100 u/ml 10 ml vial SC SCH ×4 (11:26→21:53)
[2017-04-24] MEDS: Pantoprazole 40 mg EC Tab PO SCH (11:27)
--- NOTE | 2017-04-24 12:43 | CP.PCM.PN ---
<DeoZari - Last Filed: 04/24/17 14:49> Subjective - Date & Time of Evaluation Date of Evaluation: 04/24/17 Time of Evaluation: 06:45 - Subjective Subjective: General Surgery Dr. Cabral Pt S&E @bedside. NAEO. no complaints. pt denies pain, N/V, F/C. pt tolerating diet. Objective - Vital Signs/Intake and Output Vital Signs (last 24 hours): Temp Pulse Resp BP Pulse Ox 98.0 F 113 H 18 98/62 L 100 04/24/17 08:46 04/24/17 08:46 04/24/17 08:46 04/24/17 08:46 04/24/17 08:46 Intake and Output: 04/24/17 04/24/17 06:59 18:59 Intake Total 700 Output Total 1420 Balance -720 - Medications Medications: Current Medications Acetaminophen (Tylenol 325mg Tab) 650 mg PO Q4 PRN PRN Reason: Fever >100.4 F Ascorbic Acid (Vitamin C 500 Mg Tab) 500 mg PO DAILY [facility] Last Admin: 04/24/17 11:27 Dose: Not Given Diphenhydramine HCl (Benadryl) 25 mg IVP Q8 PRN PRN Reason: Itching / Pruritus Tigecycline 50 mg/ Sodium (Chloride) 100 mls @ 100 mls/hr IVPB Q12H [facility] Last Admin: 04/24/17 05:28 Dose: 100 mls/hr Fluconazole (Diflucan Iv 100 Mg/50 Ml Ns) 50 mls @ 50 mls/hr IVPB Q24H [facility] Last Admin: 04/24/17 11:17 Dose: 50 mls/hr Insulin Aspart (Novolog) 0 unit SC ACHS [facility] PRN Reason: Protocol Last Admin: 04/24/17 11:26 Dose: Not Given Lactobacillus Acidophilus (Bacid Acidophilus) 1 cap PO DAILY [facility] Last Admin: 04/24/17 11:26 Dose: Not Given Magnesium Oxide (Mag-Ox) 400 mg PO DAILY [facility] Last Admin: 04/24/17 11:26 Dose: Not Given Multivitamins (Hexavitamin) 1 tab PO DAILY [facility] Last Admin: 04/24/17 11:26 Dose: Not Given Ondansetron HCl (Zofran Inj) 4 mg IVP Q4 PRN PRN Reason: Nausea/Vomiting Last Admin: 04/24/17 11:20 Dose: 4 mg Pantoprazole Sodium (Protonix Ec Tab) 40 mg PO DAILY [facility] Last Admin: 04/24/17 11:27 Dose: Not Given Potassium Chloride (K-Dur 20 Meq Er Tab) 40 meq PO BRK [facility] Last Admin: 04/24/17 11:26 Dose: Not Given Tramadol HCl (Ultram) 50 mg PO TID [facility] Last Admin: 04/24/17 11:27 Dose: Not Given Zinc Sulfate (Zinc Sulfate 220 Mg Cap) 220 mg PO DAILY [facility] Last Admin: 04/24/17 11:27 Dose: Not Given - Labs Labs: 04/23/17 08:22 04/23/17 08:22 PT 11.9 SECONDS (9.7-12.2) 04/13/17 06:28 INR 1.1 04/13/17 06:28 APTT 27 SECONDS (21-34) 04/13/17 06:28 - Constitutional Appears: Non-toxic, No Acute Distress - Head Exam Head Exam: NORMAL INSPECTION - Eye Exam Eye Exam: Normal appearance - ENT Exam ENT Exam: Mucous Membranes Moist - Respiratory Exam Respiratory Exam: NORMAL BREATHING PATTERN. absent: Accessory Muscle Use, Respiratory Distress - Cardiovascular Exam Cardiovascular Exam: absent: Bradycardia, Tachycardia - GI/Abdominal Exam GI & Abdominal Exam: Soft. absent: Distended, Tenderness Additional comments: incision c/d/i ileostomy w/ stool present saad present w/ scant serous output - Extremities Exam Extremities Exam: Normal Inspection - Neurological Exam Neurological Exam: Alert, Awake, Oriented x3 - Psychiatric Exam Psychiatric exam: Normal Affect, Normal Mood - Skin Skin Exam: Dry, Normal Color, Warm Assessment and Plan - Assessment and Plan (Free Text) Assessment: 61 y/o F POD#12 s/p ex-lap, small bowel resection, bladder repair, ileostomy - f/u post-op CT chest/abd/pelvis - Leukocytosis resolving - Mckeon to stay until removed by Dr. Whitaker, urology - Pt cleared for discharge to [facility] from surgical stand point. Pt discussed w/ Dr. Misha Desouza DO PGY2 <Sumeet Cabral - Last Filed: 04/30/17 19:46> Objective - Vital Signs/Intake and Output Vital Signs (last 24 hours): Temp Pulse Resp BP Pulse Ox 97.7 F 95 H 20 95/65 L 99 04/30/17 12:00 04/30/17 13:00 04/30/17 13:00 04/30/17 13:00 04/30/17 13:00 Intake and Output: 04/30/17 05/01/17 18:59 06:59 Intake Total 1680 Output Total 500 Balance 1180 - Medications Medications: Current Medications Acetaminophen (Tylenol 325mg Tab) 650 mg PO Q4 PRN PRN Reason: Fever >100.4 F Ascorbic Acid (Vitamin C 500 Mg Tab) 500 mg PO DAILY [facility] Last Admin: 04/30/17 09:53 Dose: 500 mg Diphenhydramine HCl (Benadryl) 25 mg IVP Q8 PRN PRN Reason: Itching / Pruritus Fluconazole (Diflucan Iv 200 Mg/100 Ml Ns) 100 mls @ 100 mls/hr IVPB DAILY [facility] Last Admin: 04/30/17 10:00 Dose: 100 mls/hr Meropenem 500 mg/ Sodium (Chloride) 100 mls @ 100 mls/hr IVPB Q8H [facility] Insulin Aspart (Novolog) 0 unit SC ACHS [facility] PRN Reason: Protocol Last Admin: 04/30/17 17:35 Dose: Not Given Lactobacillus Acidophilus (Bacid Acidophilus) 1 cap PO DAILY [facility] Last Admin: 04/30/17 09:53 Dose: 1 cap Magnesium Oxide (Mag-Ox) 400 mg PO DAILY [facility] Last Admin: 04/30/17 09:53 Dose: 400 mg Metoclopramide HCl (Reglan) 10 mg IVP ACHS [facility] Morphine Sulfate (Morphine) 2 mg IVP ONCE ONE Stop: 04/30/17 19:46 Last Admin: 04/30/17 19:45 Dose: 2 mg Multivitamins (Hexavitamin) 1 tab PO DAILY [facility] Last Admin: 04/30/17 09:53 Dose: 1 tab Pantoprazole Sodium (Protonix Ec Tab) 40 mg PO DAILY [facility] Last Admin: 04/30/17 09:53 Dose: 40 mg Tramadol HCl (Ultram) 50 mg PO TID [facility] Last Admin: 04/30/17 19:01 Dose: 50 mg Zinc Sulfate (Zinc Sulfate 220 Mg Cap) 220 mg PO DAILY [facility] Last Admin: 04/30/17 09:53 Dose: 220 mg - Labs Labs: 04/30/17 08:05 04/30/17 08:05 PT 11.9 SECONDS (9.7-12.2) 04/13/17 06:28 INR 1.1 04/13/17 06:28 APTT 27 SECONDS (21-34) 04/13/17 06:28 Attending/Attestation - Attestation I have personally seen and examined this patient.: Yes I have fully participated in the care of the patient.: Yes I have reviewed all pertinent clinical information, including history, physical exam and plan: Yes Notes (Text): 04/30/17 19:45 Pt was seen and examined at bedside Agree with above note and assessment CT scan of A/P for Leucocytosis IV antibiotics C.w current mx OOB to walk Plan d.w pt in detail.
[2017-04-24] MEDS ORDERED: Iodixanol 320 MG/ML 100 ML BOTTLE IV ONE (15:51)
--- NOTE | 2017-04-24 21:01 | CT ---
EXAM: CT Chest With Intravenous Contrast CLINICAL HISTORY: 61 years old, female; Condition or disease; Intestinal condition and kidney or ureter condition; Other: Bladder repairs; Obstruction; Lung condition and disease; Other: SOB; Prior surgery; Surgery date: 6+ months; Surgery type: Ileostomy; Additional info: S/P ex-lap, bladder repair, ileostomy TECHNIQUE: Axial computed tomography images of the chest with intravenous contrast. All CT scans at this facility use one or more dose reduction techniques, viz.: automated exposure control; ma/kV adjustment per patient size (including targeted exams where dose is matched to indication; i.e. head); or iterative reconstruction technique. Coronal and sagittal reformatted images were created and reviewed. CONTRAST: 100 mL of visipaque 320 administered intravenously. COMPARISON: There are no prior studies for comparison. FINDINGS: Lungs and pleural spaces: Trachea and main bronchi are patent. Lungs are well inflated. There is a lobar or segmental consolidation. There is minimal dependent atelectasis at the lung bases. There is minimal scarring at the lung bases. There are no effusions. There is perfusion of the 3 arch vessels.Pulmonary vessels are unremarkable. Mediastinum: Esophagus is partially distended with air and fluid. There are no pathologically enlarged mediastinal or hilar nodes. Thyroid: There are multiple partially calcified and noncalcified thyroid nodules. There are additional thyroid calcifications not associated with nodules Bones/joints: There are degenerative changes in the osseus structures. Soft tissues: unremarkable Heart and Vasculature: Heart size is normal. There is no pericardial effusion. There are coronary artery calcifications.There is no aneurysm or dissection.There are vascular calcifications. Upper abdomen: Refer to following report for abdominal findings Tubes, lines and devices: There is a right PICC line with the tip at the cavoatrial junction. IMPRESSION: Multiple thyroid nodules as described, sonography suggested if further evaluation desired; no focal pneumonia, minimal atelectasis and scarring at the lung bases; atherosclerotic disease Additional findings as described above. EXAM: CT Abdomen and Pelvis With Intravenous Contrast EXAM DATE/TIME: 04/24/2017 2:56 PM CLINICAL HISTORY: 61 years old, female; Condition or disease; Intestinal condition and kidney or ureter condition; Other: Bladder repairs; Obstruction; Lung condition and disease; Other: SOB; Prior surgery; Surgery date: 6+ months; Surgery type: Ileostomy; Additional info: S/P ex-lap, bladder repair, ileostomy TECHNIQUE: Axial computed tomography images of the abdomen and pelvis with intravenous contrast. All CT scans at this facility use one or more dose reduction techniques, viz.: automated exposure control; ma/kV adjustment per patient size (including targeted exams where dose is matched to indication; i.e. head); or iterative reconstruction technique. Coronal and sagittal reformatted images were created and reviewed. CONTRAST: 100 mL of visipaque 320 administered intravenously. COMPARISON: CT - ABD PELVIS W/O PO OR IV CONT 04/05/2017 5:11:46 PM FINDINGS: Lower thorax: Refer to prior report for chest findings ABDOMEN: Liver: There is fatty infiltration of the liver. Gallbladder and bile ducts: Gallbladder is incompletely distended. Common duct is prominent. Pancreas: unremarkable Spleen: unremarkable Adrenals: unremarkable Kidneys and ureters: Bilateral nephrostomy tubes remain in place. There is left upper pole renal scarring. There is less extensive right renal scarring. There are small peripheral renal perfusion defects. There is no pelvocaliectasis. There is no ureterectasis on the right. There is left ureterectasis to the level of the pelvis. There continues to be a small amount of air in the left collecting system. Stomach and bowel: Stomach is incompletely distended which accentuates the gastric wall. Rotation is normal. There is small bowel wall thickening. There is no small bowel obstruction. There is an ileostomy in the right lower quadrant. There is a distal ileal resection. Residual terminal ileum is thickened and inflamed. There is diffuse colonic wall thickening and enhancement. There is a distended sigmoid loop in the pelvis. The there is a small amount of radiopaque material in the rectum Appendix: See stomach and bowel PELVIS: Bladder: Bladder is partially distended with fluid and air. Catheter in the bladder. Reproductive: Uterus is absent. Adnexa are difficult to evaluate. ABDOMEN and PELVIS: Intraperitoneal space: There is no free air in the upper abdomen Bones/joints: Bony structures are osteopenic. There are degenerative changes. There is spondylolisthesis L4 and L5, unchanged. Soft tissues: There are postsurgical changes in the midline of abdominal wall inferior and superior to the umbilicus. There is edema and air in the abdominal wall.. There are multiple skin cory. There is small amount of postoperative fluid and air in the pre peritoneal space of the low pelvis, images 105-120 series 6, image 61-69, series 605. Small amount of peripheral enhancement suggesting infection. There is a small enhancing fluid collection in the upper abdominal wall, 5 mm in diameter, image 61 series 6. There is a surgical drain in the pelvis entering from a left lower quadrant approach. There is supra-vesicle fluid collection which contains a small amount of air. There is mild peripheral enhancement. Surgical drain is adjacent to or within the collection. This measures approximately 6 x 3 cm, image 38 series 604 Vasculature: There are vascular calcifications. Lymph nodes: There are mildly enlarged para-aortic nodes. IMPRESSION: Small bilateral renal perfusion defects suggest infection; bilateral nephrostomies; mild left ureterectasis to the level of the pelvis; enterocolitis; new postoperative changes in the abdominal wall; small enhancing fluid collections in the abdominal wall suggesting abscesses as described above; supravesical collection with air and peripheral enhancement adjacent to the surgical drain suggesting abscess; diverting ileostomy Additional findings as described above.
--- NOTE | 2017-04-24 22:03 | CP.PCM.PN ---
Subjective - Date & Time of Evaluation Date of Evaluation: 04/24/17 Time of Evaluation: 21:30 - Subjective Subjective: clinically same. Objective - Vital Signs/Intake and Output Vital Signs (last 24 hours): Temp Pulse Resp BP Pulse Ox 97.4 F L 112 H 18 91/62 L 99 04/24/17 15:12 04/24/17 15:12 04/24/17 15:12 04/24/17 15:12 04/24/17 15:12 - Medications Medications: Current Medications Acetaminophen (Tylenol 325mg Tab) 650 mg PO Q4 PRN PRN Reason: Fever >100.4 F Ascorbic Acid (Vitamin C 500 Mg Tab) 500 mg PO DAILY [facility] Last Admin: 04/24/17 11:27 Dose: Not Given Diphenhydramine HCl (Benadryl) 25 mg IVP Q8 PRN PRN Reason: Itching / Pruritus Tigecycline 50 mg/ Sodium (Chloride) 100 mls @ 100 mls/hr IVPB Q12H [facility] Last Admin: 04/24/17 18:14 Dose: 100 mls/hr Fluconazole (Diflucan Iv 100 Mg/50 Ml Ns) 50 mls @ 50 mls/hr IVPB Q24H [facility] Last Admin: 04/24/17 11:17 Dose: 50 mls/hr Insulin Aspart (Novolog) 0 unit SC ACHS [facility] PRN Reason: Protocol Last Admin: 04/24/17 21:53 Dose: 2 unit Lactobacillus Acidophilus (Bacid Acidophilus) 1 cap PO DAILY [facility] Last Admin: 04/24/17 11:26 Dose: Not Given Magnesium Oxide (Mag-Ox) 400 mg PO DAILY [facility] Last Admin: 04/24/17 11:26 Dose: Not Given Multivitamins (Hexavitamin) 1 tab PO DAILY [facility] Last Admin: 04/24/17 11:26 Dose: Not Given Ondansetron HCl (Zofran Inj) 4 mg IVP Q4 PRN PRN Reason: Nausea/Vomiting Last Admin: 04/24/17 11:20 Dose: 4 mg Pantoprazole Sodium (Protonix Ec Tab) 40 mg PO DAILY [facility] Last Admin: 04/24/17 11:27 Dose: Not Given Potassium Chloride (K-Dur 20 Meq Er Tab) 40 meq PO BRK [facility] Last Admin: 04/24/17 11:26 Dose: Not Given Tramadol HCl (Ultram) 50 mg PO TID [facility] Last Admin: 04/24/17 18:27 Dose: Not Given Zinc Sulfate (Zinc Sulfate 220 Mg Cap) 220 mg PO DAILY [facility] Last Admin: 04/24/17 11:27 Dose: Not Given - Labs Labs: 04/23/17 08:22 04/23/17 08:22 PT 11.9 SECONDS (9.7-12.2) 04/13/17 06:28 INR 1.1 04/13/17 06:28 APTT 27 SECONDS (21-34) 04/13/17 06:28 - Constitutional Appears: Well - Head Exam Head Exam: ATRAUMATIC, NORMAL INSPECTION, NORMOCEPHALIC - Eye Exam Eye Exam: EOMI, Normal appearance, PERRL Pupil Exam: NORMAL ACCOMODATION, PERRL - ENT Exam ENT Exam: Mucous Membranes Moist, Normal Exam - Neck Exam Neck Exam: Full ROM, Normal Inspection. absent: Lymphadenopathy - Respiratory Exam Respiratory Exam: Clear to Ausculation Bilateral, NORMAL BREATHING PATTERN - Cardiovascular Exam Cardiovascular Exam: REGULAR RHYTHM, +S1, +S2. absent: Murmur - GI/Abdominal Exam GI & Abdominal Exam: Soft, Normal Bowel Sounds. absent: Tenderness - Rectal Exam Rectal Exam: Deferred - Back Exam Back Exam: NORMAL INSPECTION - Neurological Exam Neurological Exam: Alert, Awake, CN II-XII Intact, Normal Gait, Oriented x3 - Psychiatric Exam Psychiatric exam: Normal Affect, Normal Mood - Skin Skin Exam: Dry, Intact, Normal Color, Warm Assessment and Plan (1) Colonic fistula Status: Acute (2) Displacement of Mckeon catheter Status: Acute - Assessment and Plan (Free Text) Plan: Patient examined. Diffuse abdominal pain present. Continue broad-spectrum antibiotic. Continue insulin, other antidiabetic medications, antihypertensive medications and supportive care.
[2017-04-25 07:09] LABS: BASO # 0.1 K/uL (0.0-0.2); BASO % 0.4 % (0.0-2.0); EOS # 0.1 K/uL (0.0-0.7); EOS % 0.9 % (0.0-4.0); HEMATOCRIT 33.4 % (34.0-47.0); LYMPH # 3.3 K/uL (1.0-4.3); LYMPH % 20.8 % (20.0-40.0); MEAN CELL VOLUME 85.5 fL (81.0-99.0); MEAN CORPUSCULAR HEMOGLOBIN 27.7 pg (27.0-31.0); MEAN CORPUSCULAR HGB CONC 32.3 g/dL (33.0-37.0); MEAN PLATELET VOLUME 8.8 fL (7.2-11.7); MONO # 0.9 K/uL (0.0-0.8); MONO % 5.8 % (0.0-10.0); RED CELL DISTRIBUTION WIDTH 15.1 % (11.5-14.5); WHITE BLOOD COUNT 15.7 K/uL (4.8-10.8)
[2017-04-25 07:32] LABS: CHLORIDE 98 mmol/L (98-107); SODIUM 128 mmol/L (132-148)
[2017-04-25 07:35] LABS: ALB/GLOB RATIO 0.4 (1.0-2.1); ALKALINE PHOSPHATASE 234 U/L (38-126); ALT/SGPT 57 U/L (9-52); AST/SGOT 62 U/L (14-36); BILIRUBIN,TOTAL 0.6 mg/dL (0.2-1.3); BLOOD UREA NITROGEN 17 mg/dL (7-17); CARBON DIOXIDE 21 mmol/L (22-30); GFR AFRICAN-AMERICAN > 60; TOTAL PROTEIN 6.6 g/dL (6.3-8.3)
[2017-04-25 07:36] LABS: CALCIUM 8.5 mg/dl (8.6-10.4); GLUCOSE,RANDOM 143 mg/dL (65-105)
[2017-04-25] MEDS: (Novolog) Insulin Aspart, Recombinant 100 u/ml 10 ml vial SC SCH ×4 (08:30→21:06)
--- NOTE | 2017-04-25 09:32 | CP.PCM.PN ---
<Zari Desouza - Last Filed: 04/25/17 09:35> Subjective - Date & Time of Evaluation Date of Evaluation: 04/25/17 Time of Evaluation: 06:45 - Subjective Subjective: General Surgery Dr. Cabral Pt S&E @bedside. CT performed yesterday revealed multiple intra-abdominal abscesses. NAEO. admits minimal abd pain, well controlled w/ medication. denies F/C, N/V. tolerating diet. Objective - Vital Signs/Intake and Output Vital Signs (last 24 hours): Temp Pulse Resp BP Pulse Ox 98 F 82 18 100/66 98 04/25/17 07:45 04/25/17 07:45 04/25/17 07:45 04/25/17 07:45 04/25/17 07:45 Intake and Output: 04/25/17 04/25/17 06:59 18:59 Intake Total 680 Output Total 890 Balance -210 - Medications Medications: Current Medications Acetaminophen (Tylenol 325mg Tab) 650 mg PO Q4 PRN PRN Reason: Fever >100.4 F Ascorbic Acid (Vitamin C 500 Mg Tab) 500 mg PO DAILY [facility] Last Admin: 04/24/17 11:27 Dose: Not Given Diphenhydramine HCl (Benadryl) 25 mg IVP Q8 PRN PRN Reason: Itching / Pruritus Tigecycline 50 mg/ Sodium (Chloride) 100 mls @ 100 mls/hr IVPB Q12H [facility] Last Admin: 04/25/17 05:46 Dose: 100 mls/hr Fluconazole (Diflucan Iv 100 Mg/50 Ml Ns) 50 mls @ 50 mls/hr IVPB Q24H [facility] Last Admin: 04/24/17 11:17 Dose: 50 mls/hr Insulin Aspart (Novolog) 0 unit SC ACHS [facility] PRN Reason: Protocol Last Admin: 04/25/17 08:30 Dose: 6 unit Lactobacillus Acidophilus (Bacid Acidophilus) 1 cap PO DAILY [facility] Last Admin: 04/24/17 11:26 Dose: Not Given Magnesium Oxide (Mag-Ox) 400 mg PO DAILY [facility] Last Admin: 04/24/17 11:26 Dose: Not Given Multivitamins (Hexavitamin) 1 tab PO DAILY [facility] Last Admin: 04/24/17 11:26 Dose: Not Given Ondansetron HCl (Zofran Inj) 4 mg IVP Q4 PRN PRN Reason: Nausea/Vomiting Last Admin: 04/24/17 11:20 Dose: 4 mg Pantoprazole Sodium (Protonix Ec Tab) 40 mg PO DAILY [facility] Last Admin: 04/24/17 11:27 Dose: Not Given Potassium Chloride (K-Dur 20 Meq Er Tab) 40 meq PO BRK [facility] Last Admin: 04/24/17 11:26 Dose: Not Given Tramadol HCl (Ultram) 50 mg PO TID [facility] Last Admin: 04/24/17 18:27 Dose: Not Given Zinc Sulfate (Zinc Sulfate 220 Mg Cap) 220 mg PO DAILY [facility] Last Admin: 04/24/17 11:27 Dose: Not Given - Labs Labs: 04/25/17 06:43 04/25/17 06:43 PT 11.9 SECONDS (9.7-12.2) 04/13/17 06:28 INR 1.1 04/13/17 06:28 APTT 27 SECONDS (21-34) 04/13/17 06:28 - Constitutional Appears: Non-toxic, No Acute Distress - Head Exam Head Exam: NORMAL INSPECTION - Eye Exam Eye Exam: Normal appearance - ENT Exam ENT Exam: Mucous Membranes Moist - Respiratory Exam Respiratory Exam: NORMAL BREATHING PATTERN. absent: Accessory Muscle Use, Respiratory Distress - Cardiovascular Exam Cardiovascular Exam: absent: Bradycardia, Tachycardia - GI/Abdominal Exam GI & Abdominal Exam: Soft, Tenderness (minimal brandt-incisional TTP). absent: Distended, Guarding, Rebound Additional comments: incision c/d/i dressing w/ minimal staining ileostomy pink, patent saad w/ scant serous output - Extremities Exam Extremities Exam: Normal Inspection - Neurological Exam Neurological Exam: Alert, Awake, Oriented x3 - Psychiatric Exam Psychiatric exam: Normal Affect, Normal Mood - Skin Skin Exam: Dry, Normal Color, Warm Assessment and Plan - Assessment and Plan (Free Text) Assessment: 61 y/o F POD#13 s/p ex-lap, small bowel resection w/ ileostomy, bladder repair, appendectomy - IR consult for drainage of intra-abdominal abscess - increasing leukocytosis - f/u ID for continued Abx - cont pain management - encourage OOB to chair/Amb/IS use - Mckeon to stay until removed by Dr. Whitaker, urology Pt discussed w/ Dr. Misha Desouza DO PGY2 <Sumeet Cabral B - Last Filed: 04/30/17 19:37> Objective - Vital Signs/Intake and Output Vital Signs (last 24 hours): Temp Pulse Resp BP Pulse Ox 97.7 F 95 H 20 95/65 L 99 04/30/17 12:00 04/30/17 13:00 04/30/17 13:00 04/30/17 13:00 04/30/17 13:00 Intake and Output: 04/30/17 05/01/17 18:59 06:59 Intake Total 1680 Output Total 500 Balance 1180 - Medications Medications: Current Medications Acetaminophen (Tylenol 325mg Tab) 650 mg PO Q4 PRN PRN Reason: Fever >100.4 F Ascorbic Acid (Vitamin C 500 Mg Tab) 500 mg PO DAILY [facility] Last Admin: 04/30/17 09:53 Dose: 500 mg Diphenhydramine HCl (Benadryl) 25 mg IVP Q8 PRN PRN Reason: Itching / Pruritus Fluconazole (Diflucan Iv 200 Mg/100 Ml Ns) 100 mls @ 100 mls/hr IVPB DAILY [facility] Last Admin: 04/30/17 10:00 Dose: 100 mls/hr Meropenem 500 mg/ Sodium (Chloride) 100 mls @ 100 mls/hr IVPB Q8H [facility] Insulin Aspart (Novolog) 0 unit SC ACHS [facility] PRN Reason: Protocol Last Admin: 04/30/17 17:35 Dose: Not Given Lactobacillus Acidophilus (Bacid Acidophilus) 1 cap PO DAILY [facility] Last Admin: 04/30/17 09:53 Dose: 1 cap Magnesium Oxide (Mag-Ox) 400 mg PO DAILY [facility] Last Admin: 04/30/17 09:53 Dose: 400 mg Metoclopramide HCl (Reglan) 10 mg IVP ACHS [facility] Morphine Sulfate (Morphine) 2 mg IVP ONCE ONE Stop: 04/30/17 19:46 Multivitamins (Hexavitamin) 1 tab PO DAILY [facility] Last Admin: 04/30/17 09:53 Dose: 1 tab Pantoprazole Sodium (Protonix Ec Tab) 40 mg PO DAILY [facility] Last Admin: 04/30/17 09:53 Dose: 40 mg Tramadol HCl (Ultram) 50 mg PO TID [facility] Last Admin: 04/30/17 19:01 Dose: 50 mg Zinc Sulfate (Zinc Sulfate 220 Mg Cap) 220 mg PO DAILY [facility] Last Admin: 04/30/17 09:53 Dose: 220 mg - Labs Labs: 04/30/17 08:05 04/30/17 08:05 PT 11.9 SECONDS (9.7-12.2) 04/13/17 06:28 INR 1.1 04/13/17 06:28 APTT 27 SECONDS (21-34) 04/13/17 06:28 Attending/Attestation - Attestation I have personally seen and examined this patient.: Yes I have fully participated in the care of the patient.: Yes I have reviewed all pertinent clinical information, including history, physical exam and plan: Yes Notes (Text): 04/30/17 19:36 Pt was seen and examined at bedside Agree with above note and assessment Pt is improving clinically CT scan of A/P c.w IV antibiotics Plan d.w pt in detail.
[2017-04-25] MEDS: Potassium Chloride 20 mEq ER Tab PO SCH (10:45)
[2017-04-25] MEDS: Pantoprazole 40 mg EC Tab PO SCH (10:45)
[2017-04-25] MEDS: Magnesium Oxide 400 mg Tab UD PO SCH (10:45)
[2017-04-25] MEDS: Multiple Vitamins Tab PO SCH (10:45)
[2017-04-25] MEDS: Lactobacillus Acidophilus 500 MU Cap PO SCH (10:45)
--- NOTE | 2017-04-25 11:44 | CP.PCM.PN ---
<Juan Carlos Cabral - Last Filed: 04/25/17 18:17> Subjective - Date & Time of Evaluation Date of Evaluation: 04/25/17 Time of Evaluation: 11:36 - Subjective Subjective: PGY-[address] Higgins's Service: Pt seen and examined at bedside. Nursing reports no acute events overnight. Patient reports slight abdominal pain around surgical site, but denies fever, chills, nausea, or vomiting. Pt reports tolerating diet this AM without difficulty. Objective - Vital Signs/Intake and Output Vital Signs (last 24 hours): Temp Pulse Resp BP Pulse Ox 98 F 82 18 100/66 98 04/25/17 07:45 04/25/17 07:45 04/25/17 07:45 04/25/17 07:45 04/25/17 07:45 Intake and Output: 04/25/17 04/25/17 06:59 18:59 Intake Total 680 Output Total 890 Balance -210 - Medications Medications: Current Medications Acetaminophen (Tylenol 325mg Tab) 650 mg PO Q4 PRN PRN Reason: Fever >100.4 F Ascorbic Acid (Vitamin C 500 Mg Tab) 500 mg PO DAILY [facility] Last Admin: 04/25/17 10:45 Dose: Not Given Diphenhydramine HCl (Benadryl) 25 mg IVP Q8 PRN PRN Reason: Itching / Pruritus Fluconazole (Diflucan Iv 100 Mg/50 Ml Ns) 50 mls @ 50 mls/hr IVPB Q24H [facility] Last Admin: 04/24/17 11:17 Dose: 50 mls/hr Sodium Chloride (Sodium Chloride 0.9%) 1,000 mls @ 65 mls/hr IV .[id number] [facility] Insulin Aspart (Novolog) 0 unit SC ACHS [facility] PRN Reason: Protocol Last Admin: 04/25/17 08:30 Dose: 6 unit Lactobacillus Acidophilus (Bacid Acidophilus) 1 cap PO DAILY [facility] Last Admin: 04/25/17 10:45 Dose: Not Given Magnesium Oxide (Mag-Ox) 400 mg PO DAILY [facility] Last Admin: 04/25/17 10:45 Dose: Not Given Multivitamins (Hexavitamin) 1 tab PO DAILY [facility] Last Admin: 04/25/17 10:45 Dose: Not Given Ondansetron HCl (Zofran Inj) 4 mg IVP Q4 PRN PRN Reason: Nausea/Vomiting Last Admin: 04/24/17 11:20 Dose: 4 mg Pantoprazole Sodium (Protonix Ec Tab) 40 mg PO DAILY [facility] Last Admin: 04/25/17 10:45 Dose: Not Given Potassium Chloride (K-Dur 20 Meq Er Tab) 40 meq PO BRK [facility] Last Admin: 04/25/17 10:45 Dose: Not Given Tramadol HCl (Ultram) 50 mg PO TID [facility] Last Admin: 04/25/17 10:47 Dose: 50 mg Zinc Sulfate (Zinc Sulfate 220 Mg Cap) 220 mg PO DAILY [facility] Last Admin: 04/25/17 10:44 Dose: Not Given - Labs Labs: 04/25/17 06:43 04/25/17 06:43 PT 11.9 SECONDS (9.7-12.2) 04/13/17 06:28 INR 1.1 04/13/17 06:28 APTT 27 SECONDS (21-34) 04/13/17 06:28 - Constitutional Appears: Non-toxic, No Acute Distress - Head Exam Head Exam: NORMAL INSPECTION - ENT Exam ENT Exam: Mucous Membranes Moist - Respiratory Exam Respiratory Exam: Clear to Ausculation Bilateral, NORMAL BREATHING PATTERN. absent: Rales, Rhonchi, Wheezes - Cardiovascular Exam Cardiovascular Exam: REGULAR RHYTHM, +S1, +S2 - GI/Abdominal Exam GI & Abdominal Exam: Soft, Tenderness (around incision site), Normal Bowel Sounds Additional comments: incision appears dry/clean, intact ileostomy patent Fransisco drain with small output - Back Exam Back Exam: absent: CVA tenderness (L), CVA tenderness (R) - Neurological Exam Neurological Exam: Alert, Awake, Oriented x3 - Psychiatric Exam Psychiatric exam: Normal Affect, Normal Mood - Skin Skin Exam: Dry, Normal Color, Warm Assessment and Plan - Assessment and Plan (Free Text) 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 Gas/fluid collection noted within the cystectomy bed suggesting abscess formation. 2. A urethral balloon tipped catheter is directed into a bowel loop in the right lower quadrant and appears to terminate at the level of the descending colon. Clinical correlation suggested. 3. Subtle irregularity noted along the margins of the symphysis pubis could represent osteomyelitis. 4. A grade 1 spondylolisthesis at L4-5. Bilateral foraminal stenosis. 5. Bilateral percutaneous nephrostomy catheters. There is evidence of left renal atrophy. Dr. Cabral, Gen Surgery consult: -Small bowel resection, bladder repair, appendectomy, ileostomy performed - follow up CT 04/24/17 showing multiple intrabdominal abscesses - consult IR for drainage - Leave gonzalez until removed by Dr. Whitaker, urology Dr. Cutler, ID consult Tigecycline 50mg IV Q12H (10 days completed) -f/u for additional reccs Abdominal Fluid Culture: (04/14/17): Stentrophomonas Maltophilia, VRE Peritoneal fluid culture: (04/14/17): VRE Urine Culture: (04/14/17) Yeast Species Leukocytosis WBC 15.7, uptrending Afebrile, non-tachy Tigecycline 50mg IV Q12H - f/u additional reccs Abdominal Abscess Dr Trinidad, IR cisco consultant: - Drainage for intra-abdominal abscess Abnormal Urine culture Urine Culture: (04/14/17) Yeast Species Diflucan 50mls IV Q24H Sacral Pressure Ulcer Stage II Wound care on board Prophylaxis Protonix 40mg PO Daily [facility] Juan Carlos Cabral PGY-2 All medical management per Dr. Higgins <Tonya Higgins S - Last Filed: 05/18/17 16:54> Objective - Vital Signs/Intake and Output Vital Signs (last 24 hours): Temp Pulse Resp BP Pulse Ox 97.9 F 115 H 18 99/61 L 96 05/18/17 08:42 05/18/17 08:42 05/18/17 08:42 05/18/17 08:42 05/18/17 08:42 Intake and Output: 05/18/17 05/18/17 06:59 18:59 Intake Total 1180 639 Output Total 1920 800 Balance -740 161 - Medications Medications: Current Medications Acetaminophen/Codeine Phosphate (Tylenol/Codeine 300 Mg/30 Mg) 1 ea PO Q6 PRN PRN Reason: Pain, Mild (1-3) Last Admin: 05/17/17 18:47 Dose: 1 ea Ascorbic Acid (Vitamin C 500 Mg Tab) 500 mg PO DAILY [facility] Last Admin: 05/18/17 09:31 Dose: 500 mg Enoxaparin Sodium (Lovenox) 40 mg SC Q12 [facility] Last Admin: 05/07/17 21:41 Dose: 40 mg Fluconazole (Diflucan Iv 200 Mg/100 Ml Ns) 100 mls @ 100 mls/hr IVPB DAILY [facility] Last Admin: 05/18/17 09:32 Dose: 100 mls/hr Fat Emulsion Intravenous (Intralipid 20%) 250 mls @ 42 mls/hr IV TTS@1800 [facility] Stop: 05/22/17 18:01 Last Admin: 05/16/17 17:42 Dose: 42 mls/hr Multivitamins/Vitamin C 10 ml/Chromium/Copper/Manganese/Zinc 1 ml/ Amino Acids 1,011 mls @ 42 mls/hr IV .Q24H [facility] Stop: 05/18/17 17:59 Last Admin: 05/17/17 18:30 Dose: 42 mls/hr Linezolid (Zyvox 600mg/300ml D5w) 600 mg in 300 mls @ 200 mls/hr IVPB Q12 [facility] Last Admin: 05/18/17 10:55 Dose: 200 mls/hr Meropenem 500 mg/ Dextrose 100 mls @ 100 mls/hr IVPB Q8 [facility] Last Admin: 05/18/17 14:28 Dose: 100 mls/hr Multivitamins/Vitamin C 10 ml/Chromium/Copper/Manganese/Zinc 1 ml/ Amino Acids 1,011 mls @ 42 mls/hr IV .Q24H [facility] Stop: 05/19/17 17:59 Insulin Human Regular (Novolin R) 0 unit SC ACHS [facility] PRN Reason: Protocol Last Admin: 05/18/17 12:44 Dose: 6 unit Lactobacillus Acidophilus (Bacid Acidophilus) 1 cap PO DAILY [facility] Last Admin: 05/18/17 09:31 Dose: 1 cap Loperamide HCl (Imodium) 2 mg PO QID PRN PRN Reason: Diarrhea Last Admin: 05/01/17 22:58 Dose: 2 mg Magnesium Oxide (Mag-Ox) 400 mg PO DAILY [facility] Last Admin: 05/18/17 09:31 Dose: 400 mg Multivitamins (Hexavitamin) 1 tab PO DAILY [facility] Last Admin: 05/18/17 09:31 Dose: 1 tab Ondansetron HCl (Zofran Tab) 4 mg PO Q8H PRN PRN Reason: Nausea/Vomiting Petrolatum (Desitin Original) 0 gm TOP TID PRN PRN Reason: Rash Tramadol HCl (Ultram) 25 mg PO TID PRN PRN Reason: Pain, Mild (1-3) Zinc Sulfate (Zinc Sulfate 220 Mg Cap) 220 mg PO DAILY [facility] Last Admin: 05/18/17 09:31 Dose: 220 mg - Labs Labs: 05/18/17 06:51 05/18/17 06:51 PT 11.9 SECONDS (9.7-12.2) 04/13/17 06:28 INR 1.1 04/13/17 06:28 APTT 27 SECONDS (21-34) 04/13/17 06:28 Assessment and Plan (1) Colonic fistula Status: Acute (2) Displacement of Gonzalez catheter Status: Acute Attending/Attestation - Attestation I have personally seen and examined this patient.: Yes I have fully participated in the care of the patient.: Yes I have reviewed all pertinent clinical information, including history, physical exam and plan: Yes Notes (Text): Patient examined. No acute overnight events. Continued abdominal pain. Total count increased at 15.7.
[2017-04-25] MEDS: Fluconazole IV 100mg/50 ml NS 50 ML IVPB SCH (12:36)
[2017-04-25] MEDS: Sodium Chloride 0.9% 1,000 ML IV SCH (12:42)
--- NOTE | 2017-04-25 19:04 | CP.PCM.PN ---
Subjective - Date & Time of Evaluation Date of Evaluation: 04/25/17 Time of Evaluation: 08:40 - Subjective Subjective: clinically same Objective - Vital Signs/Intake and Output Vital Signs (last 24 hours): Temp Pulse Resp BP Pulse Ox 98.6 F 116 H 18 104/74 100 04/25/17 15:00 04/25/17 15:00 04/25/17 15:00 04/25/17 15:00 04/25/17 15:00 - Medications Medications: Current Medications Acetaminophen (Tylenol 325mg Tab) 650 mg PO Q4 PRN PRN Reason: Fever >100.4 F Ascorbic Acid (Vitamin C 500 Mg Tab) 500 mg PO DAILY [facility] Last Admin: 04/25/17 10:45 Dose: Not Given Diphenhydramine HCl (Benadryl) 25 mg IVP Q8 PRN PRN Reason: Itching / Pruritus Fluconazole (Diflucan Iv 100 Mg/50 Ml Ns) 50 mls @ 50 mls/hr IVPB Q24H [facility] Last Admin: 04/25/17 12:36 Dose: 50 mls/hr Sodium Chloride (Sodium Chloride 0.9%) 1,000 mls @ 65 mls/hr IV .[id number] [facility] Last Admin: 04/25/17 12:42 Dose: 65 mls/hr Insulin Aspart (Novolog) 0 unit SC ACHS [facility] PRN Reason: Protocol Last Admin: 04/25/17 17:45 Dose: Not Given Lactobacillus Acidophilus (Bacid Acidophilus) 1 cap PO DAILY [facility] Last Admin: 04/25/17 10:45 Dose: Not Given Magnesium Oxide (Mag-Ox) 400 mg PO DAILY [facility] Last Admin: 04/25/17 10:45 Dose: Not Given Multivitamins (Hexavitamin) 1 tab PO DAILY [facility] Last Admin: 04/25/17 10:45 Dose: Not Given Ondansetron HCl (Zofran Inj) 4 mg IVP Q4 PRN PRN Reason: Nausea/Vomiting Last Admin: 04/24/17 11:20 Dose: 4 mg Pantoprazole Sodium (Protonix Ec Tab) 40 mg PO DAILY [facility] Last Admin: 04/25/17 10:45 Dose: Not Given Potassium Chloride (K-Dur 20 Meq Er Tab) 40 meq PO BRK [facility] Last Admin: 04/25/17 10:45 Dose: Not Given Tramadol HCl (Ultram) 50 mg PO TID [facility] Last Admin: 04/25/17 17:46 Dose: Not Given Zinc Sulfate (Zinc Sulfate 220 Mg Cap) 220 mg PO DAILY [facility] Last Admin: 04/25/17 10:44 Dose: Not Given - Labs Labs: 04/25/17 06:43 04/25/17 06:43 PT 11.9 SECONDS (9.7-12.2) 04/13/17 06:28 INR 1.1 04/13/17 06:28 APTT 27 SECONDS (21-34) 04/13/17 06:28 - Constitutional Appears: Well - Head Exam Head Exam: ATRAUMATIC, NORMAL INSPECTION, NORMOCEPHALIC - Eye Exam Eye Exam: EOMI, Normal appearance, PERRL Pupil Exam: NORMAL ACCOMODATION, PERRL - ENT Exam ENT Exam: Mucous Membranes Moist, Normal Exam - Neck Exam Neck Exam: Full ROM, Normal Inspection. absent: Lymphadenopathy - Respiratory Exam Respiratory Exam: Decreased Breath Sounds - Cardiovascular Exam Cardiovascular Exam: REGULAR RHYTHM, +S1, +S2 - GI/Abdominal Exam GI & Abdominal Exam: Soft, Diminished Bowel Sounds - Rectal Exam Rectal Exam: Deferred - Back Exam Back Exam: NORMAL INSPECTION - Neurological Exam Neurological Exam: Alert, Awake, CN II-XII Intact, Normal Gait, Oriented x3 - Psychiatric Exam Psychiatric exam: Normal Affect, Normal Mood - Skin Skin Exam: Dry, Intact, Normal Color, Warm Assessment and Plan (1) Colonic fistula Status: Acute (2) Displacement of Mckeon catheter Status: Acute - Assessment and Plan (Free Text) Plan: Repeat CT scan chest + abdominal + pelvis was done Bilateral small adrenal perfusion defects suggestive of infection. Bilateral nephrostomies. Mild left ureterectasis to the level of pelvis. Enterocolitis. Small enhancing lesions in the abdomen suggestive of abscess. Supravesicular collection with air and peripheral enhancement adjacent to the surgical drain suggestive of abscess. Ileostomy present.
[2017-04-26] MEDS: Sodium Chloride 0.9% 1,000 ML IV SCH ×2 (03:10→17:33)
[2017-04-26] MEDS: (Novolog) Insulin Aspart, Recombinant 100 u/ml 10 ml vial SC SCH ×4 (07:38→21:27)
--- NOTE | 2017-04-26 08:36 | CP.PCM.PN ---
<Zari Desouza - Last Filed: 04/26/17 08:33> Subjective - Date & Time of Evaluation Date of Evaluation: 04/26/17 Time of Evaluation: 06:45 - Subjective Subjective: General Surgery Dr. Cabral Pt S&E @bedside. [place]. pt c/o VASQUEZ, nausea, fatigue. pain well controlled. tolerating diet. Objective - Vital Signs/Intake and Output Vital Signs (last 24 hours): Temp Pulse Resp BP Pulse Ox 98 F 108 H 18 102/70 100 04/26/17 07:40 04/26/17 07:40 04/26/17 07:40 04/26/17 07:40 04/26/17 07:40 Intake and Output: 04/26/17 04/26/17 06:59 18:59 Intake Total 520 638 Output Total 677 25 Balance -157 613 - Medications Medications: Current Medications Acetaminophen (Tylenol 325mg Tab) 650 mg PO Q4 PRN PRN Reason: Fever >100.4 F Ascorbic Acid (Vitamin C 500 Mg Tab) 500 mg PO DAILY [facility] Last Admin: 04/25/17 10:45 Dose: Not Given Diphenhydramine HCl (Benadryl) 25 mg IVP Q8 PRN PRN Reason: Itching / Pruritus Fluconazole (Diflucan Iv 100 Mg/50 Ml Ns) 50 mls @ 50 mls/hr IVPB Q24H [facility] Last Admin: 04/25/17 12:36 Dose: 50 mls/hr Sodium Chloride (Sodium Chloride 0.9%) 1,000 mls @ 65 mls/hr IV .[id number] [facility] Last Admin: 04/26/17 03:10 Dose: Not Given Insulin Aspart (Novolog) 0 unit SC ACHS [facility] PRN Reason: Protocol Last Admin: 04/26/17 07:38 Dose: Not Given Lactobacillus Acidophilus (Bacid Acidophilus) 1 cap PO DAILY [facility] Last Admin: 04/25/17 10:45 Dose: Not Given Magnesium Oxide (Mag-Ox) 400 mg PO DAILY [facility] Last Admin: 04/25/17 10:45 Dose: Not Given Multivitamins (Hexavitamin) 1 tab PO DAILY [facility] Last Admin: 04/25/17 10:45 Dose: Not Given Ondansetron HCl (Zofran Inj) 4 mg IVP Q4 PRN PRN Reason: Nausea/Vomiting Last Admin: 04/24/17 11:20 Dose: 4 mg Pantoprazole Sodium (Protonix Ec Tab) 40 mg PO DAILY [facility] Last Admin: 04/25/17 10:45 Dose: Not Given Potassium Chloride (K-Dur 20 Meq Er Tab) 40 meq PO BRK [facility] Last Admin: 04/25/17 10:45 Dose: Not Given Tramadol HCl (Ultram) 50 mg PO TID [facility] Last Admin: 04/25/17 17:46 Dose: Not Given Zinc Sulfate (Zinc Sulfate 220 Mg Cap) 220 mg PO DAILY [facility] Last Admin: 04/25/17 10:44 Dose: Not Given - Labs Labs: 04/25/17 06:43 04/25/17 06:43 PT 11.9 SECONDS (9.7-12.2) 04/13/17 06:28 INR 1.1 04/13/17 06:28 APTT 27 SECONDS (21-34) 04/13/17 06:28 - Constitutional Appears: Non-toxic, No Acute Distress - Head Exam Head Exam: NORMAL INSPECTION - Eye Exam Eye Exam: Normal appearance - ENT Exam ENT Exam: Mucous Membranes Moist - Respiratory Exam Respiratory Exam: NORMAL BREATHING PATTERN. absent: Accessory Muscle Use, Respiratory Distress - Cardiovascular Exam Cardiovascular Exam: Tachycardia - GI/Abdominal Exam GI & Abdominal Exam: Soft, Tenderness (minimal brandt-incisional TTP). absent: Firm, Guarding Additional comments: ileostomy w/ semi-formed stll [place] w/ scant purulent output Mckeon w/ purulent output incision c/d/i. - Extremities Exam Extremities Exam: Normal Inspection - Neurological Exam Neurological Exam: Alert, Awake, Oriented x3 - Psychiatric Exam Psychiatric exam: Normal Affect, Normal Mood - Skin Skin Exam: Dry, Normal Color, Warm Assessment and Plan - Assessment and Plan (Free Text) Assessment: 61 y/o F POD#14 s/p ex-lap, small bowel resection w/ ileostomy, bladder repair, appendectomy - f/u IR consult for drainage of intra-abdominal abscess - restart IV Abx - f/u ID recs - cont pain management - encourage OOB to chair/Amb/IS use - Mckeon to stay until removed by Dr. Whitaker, urology Pt discussed w/ Dr. Misha Desouza DO PGY2 <Sumeet Cabral - Last Filed: 04/30/17 19:38> Objective - Vital Signs/Intake and Output Vital Signs (last 24 hours): Temp Pulse Resp BP Pulse Ox 97.7 F 95 H 20 95/65 L 99 04/30/17 12:00 04/30/17 13:00 04/30/17 13:00 04/30/17 13:00 04/30/17 13:00 Intake and Output: 04/30/17 05/01/17 18:59 06:59 Intake Total 1680 Output Total 500 Balance 1180 - Medications Medications: Current Medications Acetaminophen (Tylenol 325mg Tab) 650 mg PO Q4 PRN PRN Reason: Fever >100.4 F Ascorbic Acid (Vitamin C 500 Mg Tab) 500 mg PO DAILY [facility] Last Admin: 04/30/17 09:53 Dose: 500 mg Diphenhydramine HCl (Benadryl) 25 mg IVP Q8 PRN PRN Reason: Itching / Pruritus Fluconazole (Diflucan Iv 200 Mg/100 Ml Ns) 100 mls @ 100 mls/hr IVPB DAILY [facility] Last Admin: 04/30/17 10:00 Dose: 100 mls/hr Meropenem 500 mg/ Sodium (Chloride) 100 mls @ 100 mls/hr IVPB Q8H [facility] Insulin Aspart (Novolog) 0 unit SC ACHS [facility] PRN Reason: Protocol Last Admin: 04/30/17 17:35 Dose: Not Given Lactobacillus Acidophilus (Bacid Acidophilus) 1 cap PO DAILY [facility] Last Admin: 04/30/17 09:53 Dose: 1 cap Magnesium Oxide (Mag-Ox) 400 mg PO DAILY [facility] Last Admin: 04/30/17 09:53 Dose: 400 mg Metoclopramide HCl (Reglan) 10 mg IVP ACHS [facility] Morphine Sulfate (Morphine) 2 mg IVP ONCE ONE Stop: 04/30/17 19:46 Multivitamins (Hexavitamin) 1 tab PO DAILY [facility] Last Admin: 04/30/17 09:53 Dose: 1 tab Pantoprazole Sodium (Protonix Ec Tab) 40 mg PO DAILY [facility] Last Admin: 04/30/17 09:53 Dose: 40 mg Tramadol HCl (Ultram) 50 mg PO TID [facility] Last Admin: 04/30/17 19:01 Dose: 50 mg Zinc Sulfate (Zinc Sulfate 220 Mg Cap) 220 mg PO DAILY [facility] Last Admin: 04/30/17 09:53 Dose: 220 mg - Labs Labs: 04/30/17 08:05 04/30/17 08:05 PT 11.9 SECONDS (9.7-12.2) 04/13/17 06:28 INR 1.1 04/13/17 06:28 APTT 27 SECONDS (21-34) 04/13/17 06:28 Attending/Attestation - Attestation I have personally seen and examined this patient.: Yes I have fully participated in the care of the patient.: Yes I have reviewed all pertinent clinical information, including history, physical exam and plan: Yes Notes (Text): 04/30/17 19:37 Pt was seen and examined at bedside Agree with above note and assessment Pt is improving clinically CT scan of A/P: reviewed IR Drainage c.w IV antibiotics Plan d.w pt in detail.
[2017-04-26 09:24] LABS: HEMATOCRIT 31.9 % (34.0-47.0); MEAN CELL VOLUME 84.8 fL (81.0-99.0); MEAN CORPUSCULAR HEMOGLOBIN 27.4 pg (27.0-31.0); MEAN CORPUSCULAR HGB CONC 32.3 g/dL (33.0-37.0); MEAN PLATELET VOLUME 8.5 fL (7.2-11.7); RED CELL DISTRIBUTION WIDTH 14.9 % (11.5-14.5); WHITE BLOOD COUNT 11.9 K/uL (4.8-10.8)
[2017-04-26] MEDS: Lactobacillus Acidophilus 500 MU Cap PO SCH (09:31)
[2017-04-26] MEDS: Magnesium Oxide 400 mg Tab UD PO SCH (09:31)
[2017-04-26] MEDS: Multiple Vitamins Tab PO SCH (09:31)
[2017-04-26] MEDS: Potassium Chloride 20 mEq ER Tab PO SCH (09:31)
[2017-04-26] MEDS: Pantoprazole 40 mg EC Tab PO SCH (09:32)
[2017-04-26 09:33] LABS: CHLORIDE 100 mmol/L (98-107); SODIUM 127 mmol/L (132-148)
[2017-04-26 09:34] LABS: POTASSIUM 4.4 mmol/L (3.6-5.2)
[2017-04-26 09:36] LABS: ALB/GLOB RATIO 0.4 (1.0-2.1); ALKALINE PHOSPHATASE 216 U/L (38-126); AST/SGOT 51 U/L (14-36); BILIRUBIN,TOTAL 0.7 mg/dL (0.2-1.3); BLOOD UREA NITROGEN 13 mg/dL (7-17); CARBON DIOXIDE 22 mmol/L (22-30); GFR AFRICAN-AMERICAN > 60; TOTAL PROTEIN 5.8 g/dL (6.3-8.3)
[2017-04-26 09:37] LABS: ALT/SGPT 60 U/L (9-52); CALCIUM 7.8 mg/dl (8.6-10.4); GLUCOSE,RANDOM 140 mg/dL (65-105)
[2017-04-26] MEDS: Fluconazole IV 100mg/50 ml NS 50 ML IVPB SCH (10:35)
--- NOTE | 2017-04-26 11:26 | CP.PCM.PN ---
<Jevon Kenny - Last Filed: 04/26/17 15:22> Subjective - Date & Time of Evaluation Date of Evaluation: 04/26/17 Time of Evaluation: 09:00 - Subjective Subjective: PGY3 on medicine Dr. Higgins service: Pt seen and examined at bedside this morning. POD#14 ex lap for small bowel resection with ileostomy, bladder repair and appendecomy. No acute events overnight. Pt NPO for abscess drainage with IR. Objective - Vital Signs/Intake and Output Vital Signs (last 24 hours): Temp Pulse Resp BP Pulse Ox 98 F 108 H 18 102/70 100 04/26/17 07:40 04/26/17 07:40 04/26/17 07:40 04/26/17 07:40 04/26/17 07:40 Intake and Output: 04/26/17 04/26/17 06:59 18:59 Intake Total 520 638 Output Total 677 25 Balance -157 613 - Medications Medications: Current Medications Acetaminophen (Tylenol 325mg Tab) 650 mg PO Q4 PRN PRN Reason: Fever >100.4 F Ascorbic Acid (Vitamin C 500 Mg Tab) 500 mg PO DAILY [facility] Last Admin: 04/26/17 09:32 Dose: Not Given Diphenhydramine HCl (Benadryl) 25 mg IVP Q8 PRN PRN Reason: Itching / Pruritus Fluconazole (Diflucan Iv 100 Mg/50 Ml Ns) 50 mls @ 50 mls/hr IVPB Q24H [facility] Last Admin: 04/26/17 10:35 Dose: 50 mls/hr Sodium Chloride (Sodium Chloride 0.9%) 1,000 mls @ 65 mls/hr IV .[id number] [facility] Last Admin: 04/26/17 03:10 Dose: Not Given Tigecycline 50 mg/ Sodium (Chloride) 100 mls @ 100 mls/hr IVPB Q12H [facility] Insulin Aspart (Novolog) 0 unit SC ACHS [facility] PRN Reason: Protocol Last Admin: 04/26/17 07:38 Dose: Not Given Lactobacillus Acidophilus (Bacid Acidophilus) 1 cap PO DAILY [facility] Last Admin: 04/26/17 09:31 Dose: Not Given Magnesium Oxide (Mag-Ox) 400 mg PO DAILY [facility] Last Admin: 04/26/17 09:31 Dose: Not Given Multivitamins (Hexavitamin) 1 tab PO DAILY [facility] Last Admin: 04/26/17 09:31 Dose: Not Given Ondansetron HCl (Zofran Inj) 4 mg IVP Q4 PRN PRN Reason: Nausea/Vomiting Last Admin: 04/24/17 11:20 Dose: 4 mg Pantoprazole Sodium (Protonix Ec Tab) 40 mg PO DAILY [facility] Last Admin: 04/26/17 09:32 Dose: Not Given Potassium Chloride (K-Dur 20 Meq Er Tab) 40 meq PO BRK [facility] Last Admin: 04/26/17 09:31 Dose: Not Given Tramadol HCl (Ultram) 50 mg PO TID [facility] Last Admin: 04/26/17 09:32 Dose: Not Given Zinc Sulfate (Zinc Sulfate 220 Mg Cap) 220 mg PO DAILY [facility] Last Admin: 04/26/17 09:32 Dose: Not Given - Labs Labs: 04/26/17 09:15 04/26/17 09:15 PT 11.9 SECONDS (9.7-12.2) 04/13/17 06:28 INR 1.1 04/13/17 06:28 APTT 27 SECONDS (21-34) 04/13/17 06:28 - Constitutional Appears: Non-toxic, No Acute Distress, Chronically Ill - Head Exam Head Exam: NORMOCEPHALIC - Eye Exam Eye Exam: Normal appearance Pupil Exam: NORMAL ACCOMODATION - ENT Exam ENT Exam: Mucous Membranes Moist - Respiratory Exam Respiratory Exam: Clear to Ausculation Bilateral, NORMAL BREATHING PATTERN. absent: Wheezes - Cardiovascular Exam Cardiovascular Exam: REGULAR RHYTHM, +S1, +S2. 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 Gas/fluid collection noted within the cystectomy bed suggesting abscess formation. 2. A urethral balloon tipped catheter is directed into a bowel loop in the right lower quadrant and appears to terminate at the level of the descending colon. Clinical correlation suggested. 3. Subtle irregularity noted along the margins of the symphysis pubis could represent osteomyelitis. 4. A grade 1 spondylolisthesis at L4-5. Bilateral foraminal stenosis. 5. Bilateral percutaneous nephrostomy catheters. There is evidence of left renal atrophy. Dr. Cabral, Gen Surgery consult: - Small bowel resection, bladder repair, appendectomy, ileostomy performed - follow up CT 04/24/17 showing multiple intrabdominal abscesses - consult IR for drainage - Leave gonzalez until removed by Dr. Whitaker, urology Dr. Cutler, ID consult Tigecycline 50mg IV Q12H for total of 14 days, started on 04/15 - Will repeat CT abdomen and pelvis per ID after drainage Abdominal Fluid Culture: (04/14/17): Stentrophomonas Maltophilia, VRE Peritoneal fluid culture: (04/14/17): VRE Urine Culture: (04/14/17) Yeast Species Leukocytosis WBC 15.7, uptrending Afebrile, non-tachy Tigecycline 50mg IV Q12H for total of 14 days, started on 04/15 - Will repeat CT abdomen and pelvis per ID after drainage Abdominal Abscess Dr Trinidad, IR marine engineering consultant: - Drainage for intra-abdominal abscess today Abnormal Urine culture Urine Culture: (04/14/17) Yeast Species Diflucan 50mls IV Q24H Sacral Pressure Ulcer Stage II Wound care on board Prophylaxis Protonix 40mg PO Daily [facility] All medical management per Dr. Higgins <Tonya Higgins S - Last Filed: 05/18/17 16:55> Objective - Vital Signs/Intake and Output Vital Signs (last 24 hours): Temp Pulse Resp BP Pulse Ox 97.9 F 115 H 18 99/61 L 96 05/18/17 08:42 05/18/17 08:42 05/18/17 08:42 05/18/17 08:42 05/18/17 08:42 Intake and Output: 05/18/17 05/18/17 06:59 18:59 Intake Total 1180 639 Output Total 1920 800 Balance -740 -161 - Medications Medications: Current Medications Acetaminophen/Codeine Phosphate (Tylenol/Codeine 300 Mg/30 Mg) 1 ea PO Q6 PRN PRN Reason: Pain, Mild (1-3) Last Admin: 05/17/17 18:47 Dose: 1 ea Ascorbic Acid (Vitamin C 500 Mg Tab) 500 mg PO DAILY [facility] Last Admin: 05/18/17 09:31 Dose: 500 mg Enoxaparin Sodium (Lovenox) 40 mg SC Q12 [facility] Last Admin: 05/07/17 21:41 Dose: 40 mg Fluconazole (Diflucan Iv 200 Mg/100 Ml Ns) 100 mls @ 100 mls/hr IVPB DAILY [facility] Last Admin: 05/18/17 09:32 Dose: 100 mls/hr Fat Emulsion Intravenous (Intralipid 20%) 250 mls @ 42 mls/hr IV TTS@1800 [facility] Stop: 05/22/17 18:01 Last Admin: 05/16/17 17:42 Dose: 42 mls/hr Multivitamins/Vitamin C 10 ml/Chromium/Copper/Manganese/Zinc 1 ml/ Amino Acids 1,011 mls @ 42 mls/hr IV .Q24H [facility] Stop: 05/18/17 17:59 Last Admin: 05/17/17 18:30 Dose: 42 mls/hr Linezolid (Zyvox 600mg/300ml D5w) 600 mg in 300 mls @ 200 mls/hr IVPB Q12 [facility] Last Admin: 05/18/17 10:55 Dose: 200 mls/hr Meropenem 500 mg/ Dextrose 100 mls @ 100 mls/hr IVPB Q8 [facility] Last Admin: 05/18/17 14:28 Dose: 100 mls/hr Multivitamins/Vitamin C 10 ml/Chromium/Copper/Manganese/Zinc 1 ml/ Amino Acids 1,011 mls @ 42 mls/hr IV .Q24H [facility] Stop: 05/19/17 17:59 Insulin Human Regular (Novolin R) 0 unit SC ACHS [facility] PRN Reason: Protocol Last Admin: 05/18/17 12:44 Dose: 6 unit Lactobacillus Acidophilus (Bacid Acidophilus) 1 cap PO DAILY [facility] Last Admin: 05/18/17 09:31 Dose: 1 cap Loperamide HCl (Imodium) 2 mg PO QID PRN PRN Reason: Diarrhea Last Admin: 05/01/17 22:58 Dose: 2 mg Magnesium Oxide (Mag-Ox) 400 mg PO DAILY [facility] Last Admin: 05/18/17 09:31 Dose: 400 mg Multivitamins (Hexavitamin) 1 tab PO DAILY [facility] Last Admin: 05/18/17 09:31 Dose: 1 tab Ondansetron HCl (Zofran Tab) 4 mg PO Q8H PRN PRN Reason: Nausea/Vomiting Petrolatum (Desitin Original) 0 gm TOP TID PRN PRN Reason: Rash Tramadol HCl (Ultram) 25 mg PO TID PRN PRN Reason: Pain, Mild (1-3) Zinc Sulfate (Zinc Sulfate 220 Mg Cap) 220 mg PO DAILY [facility] Last Admin: 05/18/17 09:31 Dose: 220 mg - Labs Labs: 05/18/17 06:51 05/18/17 06:51 PT 11.9 SECONDS (9.7-12.2) 04/13/17 06:28 INR 1.1 04/13/17 06:28 APTT 27 SECONDS (21-34) 04/13/17 06:28 Assessment and Plan (1) Colonic fistula Status: Acute (2) Displacement of Gonzalez catheter Status: Acute Attending/Attestation - Attestation I have personally seen and examined this patient.: Yes I have fully participated in the care of the patient.: Yes I have reviewed all pertinent clinical information, including history, physical exam and plan: Yes Notes (Text): Patient examined. POD #14 for small bowel resection with ileostomy, bladder repair and appendicectomy. No acute overnight events. Patient n.p.o. for abscess drainage with IR.
--- NOTE | 2017-04-26 17:33 | CP.PCM.PN ---
Subjective - Date & Time of Evaluation Date of Evaluation: 04/26/17 Time of Evaluation: 09:00 - Subjective Subjective: POD#14 ex lap for small bowel resection with ileostomy, bladder repair and appendecomy s/p IR drainage afebrile cu;tures pending Objective - Vital Signs/Intake and Output Vital Signs (last 24 hours): Temp Pulse Resp BP Pulse Ox 97.6 F 100 H 18 99/70 L 100 04/26/17 15:39 04/26/17 15:39 04/26/17 15:39 04/26/17 15:39 04/26/17 15:39 Intake and Output: 04/26/17 04/26/17 06:59 18:59 Intake Total 520 638 Output Total 677 370 Balance -157 268 - Medications Medications: Current Medications Acetaminophen (Tylenol 325mg Tab) 650 mg PO Q4 PRN PRN Reason: Fever >100.4 F Ascorbic Acid (Vitamin C 500 Mg Tab) 500 mg PO DAILY [facility] Last Admin: 04/26/17 09:32 Dose: Not Given Diphenhydramine HCl (Benadryl) 25 mg IVP Q8 PRN PRN Reason: Itching / Pruritus Sodium Chloride (Sodium Chloride 0.9%) 1,000 mls @ 65 mls/hr IV .[id number] [facility] Last Admin: 04/26/17 03:10 Dose: Not Given Tigecycline 50 mg/ Sodium (Chloride) 100 mls @ 100 mls/hr IVPB Q12H [facility] Last Admin: 04/26/17 12:55 Dose: 100 mls/hr Insulin Aspart (Novolog) 0 unit SC ACHS [facility] PRN Reason: Protocol Last Admin: 04/26/17 12:03 Dose: Not Given Lactobacillus Acidophilus (Bacid Acidophilus) 1 cap PO DAILY [facility] Last Admin: 04/26/17 09:31 Dose: Not Given Magnesium Oxide (Mag-Ox) 400 mg PO DAILY [facility] Last Admin: 04/26/17 09:31 Dose: Not Given Multivitamins (Hexavitamin) 1 tab PO DAILY [facility] Last Admin: 04/26/17 09:31 Dose: Not Given Ondansetron HCl (Zofran Inj) 4 mg IVP Q4 PRN PRN Reason: Nausea/Vomiting Last Admin: 04/24/17 11:20 Dose: 4 mg Pantoprazole Sodium (Protonix Ec Tab) 40 mg PO DAILY [facility] Last Admin: 04/26/17 09:32 Dose: Not Given Potassium Chloride (K-Dur 20 Meq Er Tab) 40 meq PO BRK [facility] Last Admin: 04/26/17 09:31 Dose: Not Given Tramadol HCl (Ultram) 50 mg PO TID [facility] Last Admin: 04/26/17 09:32 Dose: Not Given Zinc Sulfate (Zinc Sulfate 220 Mg Cap) 220 mg PO DAILY [facility] Last Admin: 04/26/17 09:32 Dose: Not Given - Labs Labs: 04/26/17 09:15 04/26/17 09:15 PT 11.9 SECONDS (9.7-12.2) 04/13/17 06:28 INR 1.1 04/13/17 06:28 APTT 27 SECONDS (21-34) 04/13/17 06:28 - Constitutional Appears: Non-toxic - Head Exam Head Exam: NORMOCEPHALIC - Eye Exam Eye Exam: absent: Scleral icterus - ENT Exam ENT Exam: Mucous Membranes Dry - Neck Exam Neck Exam: absent: Lymphadenopathy - Respiratory Exam Respiratory Exam: Decreased Breath Sounds - Cardiovascular Exam Cardiovascular Exam: REGULAR RHYTHM - GI/Abdominal Exam GI & Abdominal Exam: Distended - Rectal Exam Rectal Exam: Deferred - Exam Exam: NORMAL INSPECTION - Extremities Exam Extremities Exam: absent: Pedal Edema - Back Exam Back Exam: absent: CVA tenderness (L), CVA tenderness (R) - Neurological Exam Neurological Exam: Alert, Awake Assessment and Plan (1) Colonic fistula Status: Acute (2) Displacement of Mckeon catheter Status: Acute - Assessment and Plan (Free Text) Assessment: cont iv rx and wound care
--- NOTE | 2017-04-26 19:34 | CP.PCM.PN ---
Subjective - Date & Time of Evaluation Date of Evaluation: 04/26/17 Time of Evaluation: 08:20 - Subjective Subjective: clinically same Objective - Vital Signs/Intake and Output Vital Signs (last 24 hours): Temp Pulse Resp BP Pulse Ox 97.6 F 100 H 18 99/70 L 100 04/26/17 15:39 04/26/17 15:39 04/26/17 15:39 04/26/17 15:39 04/26/17 15:39 Intake and Output: 04/26/17 04/27/17 18:59 06:59 Intake Total 638 Output Total 370 Balance 268 - Medications Medications: Current Medications Acetaminophen (Tylenol 325mg Tab) 650 mg PO Q4 PRN PRN Reason: Fever >100.4 F Ascorbic Acid (Vitamin C 500 Mg Tab) 500 mg PO DAILY [facility] Last Admin: 04/26/17 09:32 Dose: Not Given Diphenhydramine HCl (Benadryl) 25 mg IVP Q8 PRN PRN Reason: Itching / Pruritus Sodium Chloride (Sodium Chloride 0.9%) 1,000 mls @ 65 mls/hr IV .[id number] [facility] Last Admin: 04/26/17 17:33 Dose: 65 mls/hr Tigecycline 50 mg/ Sodium (Chloride) 100 mls @ 100 mls/hr IVPB Q12H [facility] Last Admin: 04/26/17 12:55 Dose: 100 mls/hr Fluconazole (Diflucan Iv 200 Mg/100 Ml Ns) 100 mls @ 100 mls/hr IVPB DAILY [facility] Insulin Aspart (Novolog) 0 unit SC ACHS [facility] PRN Reason: Protocol Last Admin: 04/26/17 17:32 Dose: Not Given Lactobacillus Acidophilus (Bacid Acidophilus) 1 cap PO DAILY [facility] Last Admin: 04/26/17 09:31 Dose: Not Given Magnesium Oxide (Mag-Ox) 400 mg PO DAILY [facility] Last Admin: 04/26/17 09:31 Dose: Not Given Multivitamins (Hexavitamin) 1 tab PO DAILY [facility] Last Admin: 04/26/17 09:31 Dose: Not Given Ondansetron HCl (Zofran Inj) 4 mg IVP Q4 PRN PRN Reason: Nausea/Vomiting Last Admin: 04/24/17 11:20 Dose: 4 mg Pantoprazole Sodium (Protonix Ec Tab) 40 mg PO DAILY [facility] Last Admin: 04/26/17 09:32 Dose: Not Given Potassium Chloride (K-Dur 20 Meq Er Tab) 40 meq PO BRK [facility] Last Admin: 04/26/17 09:31 Dose: Not Given Tramadol HCl (Ultram) 50 mg PO TID [facility] Last Admin: 04/26/17 17:33 Dose: Not Given Zinc Sulfate (Zinc Sulfate 220 Mg Cap) 220 mg PO DAILY [facility] Last Admin: 04/26/17 09:32 Dose: Not Given - Labs Labs: 04/26/17 09:15 04/26/17 09:15 PT 11.9 SECONDS (9.7-12.2) 04/13/17 06:28 INR 1.1 04/13/17 06:28 APTT 27 SECONDS (21-34) 04/13/17 06:28 - Constitutional Appears: Well - Head Exam Head Exam: ATRAUMATIC, NORMAL INSPECTION, NORMOCEPHALIC - Eye Exam Eye Exam: EOMI, Normal appearance, PERRL Pupil Exam: NORMAL ACCOMODATION, PERRL - ENT Exam ENT Exam: Mucous Membranes Moist, Normal Exam - Neck Exam Neck Exam: Full ROM, Normal Inspection. absent: Lymphadenopathy - Respiratory Exam Respiratory Exam: Clear to Ausculation Bilateral, NORMAL BREATHING PATTERN - Cardiovascular Exam Cardiovascular Exam: REGULAR RHYTHM, +S1, +S2. absent: Murmur - GI/Abdominal Exam GI & Abdominal Exam: Soft, Normal Bowel Sounds. absent: Tenderness - Rectal Exam Rectal Exam: Deferred - Back Exam Back Exam: NORMAL INSPECTION - Neurological Exam Neurological Exam: Alert, Awake, CN II-XII Intact, Normal Gait, Oriented x3 - Psychiatric Exam Psychiatric exam: Normal Affect, Normal Mood - Skin Skin Exam: Dry, Intact, Normal Color, Warm Assessment and Plan (1) Colonic fistula Status: Acute (2) Displacement of Mckeon catheter Status: Acute - Assessment and Plan (Free Text) Plan: Patient examined. Diffuse abdominal pain present. Continue broad-spectrum antibiotic. Continue insulin, other antidiabetic medications, antihypertensive medications and supportive care.
--- NOTE | 2017-04-27 07:07 | CP.PCM.PN ---
<Jevon Kenny - Last Filed: 04/27/17 09:55> Subjective - Date & Time of Evaluation Date of Evaluation: 04/27/17 Time of Evaluation: 08:00 - Subjective Subjective: PGY3 on medicine Dr. Higgins service: Pt seen and examined at bedside this morning. POD#15 ex lap for small bowel resection with ileostomy, bladder repair and appendecomy. Per RN, there was pus inside gonzalez tube and bag, as well as decreased urinary output. No other events overnight. Pt complains of mild abdominal pain . Pt NPO for IR drainage today. Objective - Vital Signs/Intake and Output Vital Signs (last 24 hours): Temp Pulse Resp BP Pulse Ox 97.9 F 132 H 20 101/73 98 04/27/17 04:10 04/27/17 04:10 04/27/17 04:10 04/27/17 04:10 04/27/17 04:10 Intake and Output: 04/27/17 04/27/17 06:59 18:59 Intake Total 1040 Output Total 500 Balance 540 - Medications Medications: Current Medications Acetaminophen (Tylenol 325mg Tab) 650 mg PO Q4 PRN PRN Reason: Fever >100.4 F Ascorbic Acid (Vitamin C 500 Mg Tab) 500 mg PO DAILY [facility] Last Admin: 04/26/17 09:32 Dose: Not Given Diphenhydramine HCl (Benadryl) 25 mg IVP Q8 PRN PRN Reason: Itching / Pruritus Sodium Chloride (Sodium Chloride 0.9%) 1,000 mls @ 65 mls/hr IV .[id number] [facility] Last Admin: 04/26/17 17:33 Dose: 65 mls/hr Tigecycline 50 mg/ Sodium (Chloride) 100 mls @ 100 mls/hr IVPB Q12H [facility] Last Admin: 04/27/17 00:19 Dose: 100 mls/hr Fluconazole (Diflucan Iv 200 Mg/100 Ml Ns) 100 mls @ 100 mls/hr IVPB DAILY [facility] Insulin Aspart (Novolog) 0 unit SC ACHS [facility] PRN Reason: Protocol Last Admin: 04/26/17 21:27 Dose: Not Given Lactobacillus Acidophilus (Bacid Acidophilus) 1 cap PO DAILY [facility] Last Admin: 04/26/17 09:31 Dose: Not Given Magnesium Oxide (Mag-Ox) 400 mg PO DAILY [facility] Last Admin: 04/26/17 09:31 Dose: Not Given Multivitamins (Hexavitamin) 1 tab PO DAILY [facility] Last Admin: 04/26/17 09:31 Dose: Not Given Ondansetron HCl (Zofran Inj) 4 mg IVP Q4 PRN PRN Reason: Nausea/Vomiting Last Admin: 04/24/17 11:20 Dose: 4 mg Pantoprazole Sodium (Protonix Ec Tab) 40 mg PO DAILY [facility] Last Admin: 04/26/17 09:32 Dose: Not Given Potassium Chloride (K-Dur 20 Meq Er Tab) 40 meq PO BRK [facility] Last Admin: 04/26/17 09:31 Dose: Not Given Tramadol HCl (Ultram) 50 mg PO TID [facility] Last Admin: 04/26/17 17:33 Dose: Not Given Zinc Sulfate (Zinc Sulfate 220 Mg Cap) 220 mg PO DAILY [facility] Last Admin: 04/26/17 09:32 Dose: Not Given - Labs Labs: 04/26/17 09:15 04/26/17 09:15 PT 11.9 SECONDS (9.7-12.2) 04/13/17 06:28 INR 1.1 04/13/17 06:28 APTT 27 SECONDS (21-34) 04/13/17 06:28 - Constitutional Appears: Non-toxic, No Acute Distress, Cachectic - Head Exam Head Exam: NORMOCEPHALIC - Eye Exam Eye Exam: Normal appearance Pupil Exam: NORMAL ACCOMODATION - ENT Exam ENT Exam: Mucous Membranes Moist - Respiratory Exam Respiratory Exam: Clear to Ausculation Bilateral, NORMAL BREATHING PATTERN. absent: Wheezes - Cardiovascular Exam Cardiovascular Exam: REGULAR RHYTHM, +S1, +S2. absent: Gallop, Rubs - GI/Abdominal Exam GI & Abdominal Exam: Soft, Tenderness Additional comments: ileostomy patent, saad drain with minimal output, gonzalez and nephrostomy drain with minimal output and pus - Neurological Exam Neurological Exam: Alert, Awake, Oriented x3 - Psychiatric Exam Psychiatric exam: Normal Mood - Skin Skin Exam: Intact Assessment and Plan - Assessment and Plan (Free Text) Assessment: Enterovesicul fistula Admitted on 04/04/17 Hx of Hysterectomy at [facility] - resulting in colovesical fistula - fistula resected at [facility] CT A/P (04/25/17): 1. Gas/fluid collection noted within the cystectomy bed suggesting abscess formation. 2. A urethral balloon tipped catheter is directed into a bowel loop in the right lower quadrant and appears to terminate at the level of the descending colon. Clinical correlation suggested. 3. Subtle irregularity noted along the margins of the symphysis pubis could represent osteomyelitis. 4. A grade 1 spondylolisthesis at L4-5. Bilateral foraminal stenosis. 5. Bilateral percutaneous nephrostomy catheters. There is evidence of left renal atrophy. Dr. Cabral, Gen Surgery consult: - Small bowel resection, bladder repair, appendectomy, ileostomy performed - follow up CT 04/24/17 showing multiple intrabdominal abscesses - consult IR for drainage - Leave gonzalez until removed by urology Dr. Cutler, ID consult Tigecycline 50mg IV Q12H for total of 14 days, started on 04/15 - Will repeat CT abdomen and pelvis per ID after drainage Abdominal Fluid Culture: (04/14/17): Stentrophomonas Maltophilia, VRE Peritoneal fluid culture: (04/14/17): VRE Urine Culture: (04/14/17) Yeast Species Leukocytosis WBC downtrending, 10.6 today Afebrile, tachycardia Tigecycline 50mg IV Q12H for total of 14 days, started on 04/15 - Will repeat CT abdomen and pelvis per ID after drainage NS @ 75 ml/hr Abdominal Abscess Dr Trinidad, IR exchange underwriting consultant: - Drainage for intra-abdominal abscess today Abnormal Urine culture Urine Culture: (04/14/17) Yeast Species Diflucan 50mls IV Q24H Sacral Pressure Ulcer Stage II Wound care on board Prophylaxis Protonix 40mg PO Daily SCDs All medical management per Dr. Higgins <Tonya Higgins S - Last Filed: 05/18/17 16:57> Objective - Vital Signs/Intake and Output Vital Signs (last 24 hours): Temp Pulse Resp BP Pulse Ox 97.9 F 115 H 18 99/61 L 96 05/18/17 08:42 05/18/17 08:42 05/18/17 08:42 05/18/17 08:42 05/18/17 08:42 Intake and Output: 05/18/17 05/18/17 06:59 18:59 Intake Total 1180 639 Output Total 1920 800 Balance -740 -161 - Medications Medications: Current Medications Acetaminophen/Codeine Phosphate (Tylenol/Codeine 300 Mg/30 Mg) 1 ea PO Q6 PRN PRN Reason: Pain, Mild (1-3) Last Admin: 05/17/17 18:47 Dose: 1 ea Ascorbic Acid (Vitamin C 500 Mg Tab) 500 mg PO DAILY [facility] Last Admin: 05/18/17 09:31 Dose: 500 mg Enoxaparin Sodium (Lovenox) 40 mg SC Q12 [facility] Last Admin: 05/07/17 21:41 Dose: 40 mg Fluconazole (Diflucan Iv 200 Mg/100 Ml Ns) 100 mls @ 100 mls/hr IVPB DAILY [facility] Last Admin: 05/18/17 09:32 Dose: 100 mls/hr Fat Emulsion Intravenous (Intralipid 20%) 250 mls @ 42 mls/hr IV TTS@1800 [facility] Stop: 05/22/17 18:01 Last Admin: 05/16/17 17:42 Dose: 42 mls/hr Multivitamins/Vitamin C 10 ml/Chromium/Copper/Manganese/Zinc 1 ml/ Amino Acids 1,011 mls @ 42 mls/hr IV .Q24H [facility] Stop: 05/18/17 17:59 Last Admin: 05/17/17 18:30 Dose: 42 mls/hr Linezolid (Zyvox 600mg/300ml D5w) 600 mg in 300 mls @ 200 mls/hr IVPB Q12 [facility] Last Admin: 05/18/17 10:55 Dose: 200 mls/hr Meropenem 500 mg/ Dextrose 100 mls @ 100 mls/hr IVPB Q8 [facility] Last Admin: 05/18/17 14:28 Dose: 100 mls/hr Multivitamins/Vitamin C 10 ml/Chromium/Copper/Manganese/Zinc 1 ml/ Amino Acids 1,011 mls @ 42 mls/hr IV .Q24H [facility] Stop: 05/19/17 17:59 Insulin Human Regular (Novolin R) 0 unit SC ACHS [facility] PRN Reason: Protocol Last Admin: 05/18/17 12:44 Dose: 6 unit Lactobacillus Acidophilus (Bacid Acidophilus) 1 cap PO DAILY [facility] Last Admin: 05/18/17 09:31 Dose: 1 cap Loperamide HCl (Imodium) 2 mg PO QID PRN PRN Reason: Diarrhea Last Admin: 05/01/17 22:58 Dose: 2 mg Magnesium Oxide (Mag-Ox) 400 mg PO DAILY [facility] Last Admin: 05/18/17 09:31 Dose: 400 mg Multivitamins (Hexavitamin) 1 tab PO DAILY [facility] Last Admin: 05/18/17 09:31 Dose: 1 tab Ondansetron HCl (Zofran Tab) 4 mg PO Q8H PRN PRN Reason: Nausea/Vomiting Petrolatum (Desitin Original) 0 gm TOP TID PRN PRN Reason: Rash Tramadol HCl (Ultram) 25 mg PO TID PRN PRN Reason: Pain, Mild (1-3) Zinc Sulfate (Zinc Sulfate 220 Mg Cap) 220 mg PO DAILY [facility] Last Admin: 05/18/17 09:31 Dose: 220 mg - Labs Labs: 05/18/17 06:51 05/18/17 06:51 PT 11.9 SECONDS (9.7-12.2) 04/13/17 06:28 INR 1.1 04/13/17 06:28 APTT 27 SECONDS (21-34) 04/13/17 06:28 Assessment and Plan (1) Colonic fistula Status: Acute (2) Displacement of Gonzalez catheter Status: Acute Attending/Attestation - Attestation I have personally seen and examined this patient.: Yes I have fully participated in the care of the patient.: Yes I have reviewed all pertinent clinical information, including history, physical exam and plan: Yes Notes (Text): Patient examined. Lower abdominal pain present. Continue antibiotic tigecycline. Continue antidiabetic, and anti-HTN and supportive medications.
[2017-04-27 07:23] LABS: BASO % 0.3 % (0.0-2.0); EOS # 0.2 K/uL (0.0-0.7); EOS % 1.6 % (0.0-4.0); HEMATOCRIT 30.5 % (34.0-47.0); LYMPH # 2.3 K/uL (1.0-4.3); LYMPH % 21.2 % (20.0-40.0); MEAN CELL VOLUME 85.8 fL (81.0-99.0); MEAN CORPUSCULAR HEMOGLOBIN 28.5 pg (27.0-31.0); MEAN CORPUSCULAR HGB CONC 33.2 g/dL (33.0-37.0); MEAN PLATELET VOLUME 9.2 fL (7.2-11.7); MONO # 0.7 K/uL (0.0-0.8); MONO % 6.5 % (0.0-10.0); NRBC % 0.1 % (0.0-2.0); RED CELL DISTRIBUTION WIDTH 15.3 % (11.5-14.5); WHITE BLOOD COUNT 10.6 K/uL (4.8-10.8)
[2017-04-27 07:26] LABS: CHLORIDE 102 mmol/L (98-107)
[2017-04-27 07:27] LABS: POTASSIUM 4.1 mmol/L (3.6-5.2); SODIUM 129 mmol/L (132-148)
[2017-04-27 07:29] LABS: ALB/GLOB RATIO 0.4 (1.0-2.1); AST/SGOT 56 U/L (14-36); BILIRUBIN,TOTAL 0.7 mg/dL (0.2-1.3); BLOOD UREA NITROGEN 12 mg/dL (7-17); CARBON DIOXIDE 20 mmol/L (22-30); GFR AFRICAN-AMERICAN > 60; TOTAL PROTEIN 6.1 g/dL (6.3-8.3)
[2017-04-27 07:30] LABS: ALKALINE PHOSPHATASE 245 U/L (38-126); ALT/SGPT 62 U/L (9-52); CALCIUM 7.7 mg/dl (8.6-10.4); GLUCOSE,RANDOM 133 mg/dL (65-105)
[2017-04-27] MEDS: (Novolog) Insulin Aspart, Recombinant 100 u/ml 10 ml vial SC SCH ×4 (08:02→21:56)
[2017-04-27] MEDS: Sodium Chloride 0.9% 1,000 ML IV SCH ×3 (09:46→23:10)
--- NOTE | 2017-04-27 10:44 | CP.PCM.PN ---
<Zari Desouza - Last Filed: 04/27/17 10:39> Subjective - Date & Time of Evaluation Date of Evaluation: 04/27/17 Time of Evaluation: 09:30 - Subjective Subjective: General Surgery Dr. Cabral Pt S&E @bedside. NAEO. some nausea, no vomiting. pain well controlled w/ medication. tolerating diet. Objective - Vital Signs/Intake and Output Vital Signs (last 24 hours): Temp Pulse Resp BP Pulse Ox 98.1 F 105 H 17 92/61 L 100 04/27/17 08:15 04/27/17 08:15 04/27/17 08:15 04/27/17 08:15 04/27/17 08:15 Intake and Output: 04/27/17 04/27/17 06:59 18:59 Intake Total 1040 Output Total 600 Balance 440 - Medications Medications: Current Medications Acetaminophen (Tylenol 325mg Tab) 650 mg PO Q4 PRN PRN Reason: Fever >100.4 F Ascorbic Acid (Vitamin C 500 Mg Tab) 500 mg PO DAILY [facility] Last Admin: 04/26/17 09:32 Dose: Not Given Diphenhydramine HCl (Benadryl) 25 mg IVP Q8 PRN PRN Reason: Itching / Pruritus Tigecycline 50 mg/ Sodium (Chloride) 100 mls @ 100 mls/hr IVPB Q12H [facility] Last Admin: 04/27/17 00:19 Dose: 100 mls/hr Fluconazole (Diflucan Iv 200 Mg/100 Ml Ns) 100 mls @ 100 mls/hr IVPB DAILY [facility] Sodium Chloride (Sodium Chloride 0.9%) 1,000 mls @ 75 mls/hr IV .[id number] [facility] Insulin Aspart (Novolog) 0 unit SC ACHS [facility] PRN Reason: Protocol Last Admin: 04/27/17 08:02 Dose: Not Given Lactobacillus Acidophilus (Bacid Acidophilus) 1 cap PO DAILY [facility] Last Admin: 04/26/17 09:31 Dose: Not Given Magnesium Oxide (Mag-Ox) 400 mg PO DAILY [facility] Last Admin: 04/26/17 09:31 Dose: Not Given Multivitamins (Hexavitamin) 1 tab PO DAILY [facility] Last Admin: 04/26/17 09:31 Dose: Not Given Ondansetron HCl (Zofran Inj) 4 mg IVP Q4 PRN PRN Reason: Nausea/Vomiting Last Admin: 04/24/17 11:20 Dose: 4 mg Pantoprazole Sodium (Protonix Ec Tab) 40 mg PO DAILY [facility] Last Admin: 04/26/17 09:32 Dose: Not Given Potassium Chloride (K-Dur 20 Meq Er Tab) 40 meq PO BRK [facility] Last Admin: 04/26/17 09:31 Dose: Not Given Tramadol HCl (Ultram) 50 mg PO TID [facility] Last Admin: 04/26/17 17:33 Dose: Not Given Zinc Sulfate (Zinc Sulfate 220 Mg Cap) 220 mg PO DAILY [facility] Last Admin: 04/26/17 09:32 Dose: Not Given - Labs Labs: 04/27/17 06:45 04/27/17 06:45 PT 11.9 SECONDS (9.7-12.2) 04/13/17 06:28 INR 1.1 04/13/17 06:28 APTT 27 SECONDS (21-34) 04/13/17 06:28 - Constitutional Appears: Non-toxic, Older Than Stated Age, Cachectic, Chronically Ill - Head Exam Head Exam: NORMAL INSPECTION - Eye Exam Eye Exam: Normal appearance - ENT Exam ENT Exam: Mucous Membranes Moist - Respiratory Exam Respiratory Exam: NORMAL BREATHING PATTERN. absent: Accessory Muscle Use, Respiratory Distress - Cardiovascular Exam Cardiovascular Exam: Tachycardia - GI/Abdominal Exam GI & Abdominal Exam: Soft, Tenderness (per-incisional TTP). absent: Distended, Firm, Rebound Additional comments: Frans[place] draining scant purulent material Mckeon w/ angelika purulent drainage ileostomy w/ formed stool dressings c/d/i - Extremities Exam Extremities Exam: Normal Inspection - Back Exam Additional comments: B/L nephrostomy tubes in place, draining yellow urine - Neurological Exam Neurological Exam: Alert, Awake, Oriented x3 - Psychiatric Exam Psychiatric exam: Normal Affect, Normal Mood - Skin Skin Exam: Dry, Normal Color, Warm Assessment and Plan - Assessment and Plan (Free Text) Assessment: 61 y/o F POD#15 s/p ex-lap, small bowel resection w/ ileostomy, bladder repair, appendectomy - IR recommending repeat Pelvic CT to re-assess size of abscess - resolved leukocytosis - cont pain management - Mckeon to stay until removed by Dr. Whitaker, urology - encourage OOB to chair/Amb/IS use Pt discussed w/ Dr. Misha Catesanda Deo DO PGY2 <Sumeet Cabral - Last Filed: 04/30/17 19:38> Objective - Vital Signs/Intake and Output Vital Signs (last 24 hours): Temp Pulse Resp BP Pulse Ox 97.7 F 95 H 20 95/65 L 99 04/30/17 12:00 04/30/17 13:00 04/30/17 13:00 04/30/17 13:00 04/30/17 13:00 Intake and Output: 04/30/17 05/01/17 18:59 06:59 Intake Total 1680 Output Total 500 Balance 1180 - Medications Medications: Current Medications Acetaminophen (Tylenol 325mg Tab) 650 mg PO Q4 PRN PRN Reason: Fever >100.4 F Ascorbic Acid (Vitamin C 500 Mg Tab) 500 mg PO DAILY [facility] Last Admin: 04/30/17 09:53 Dose: 500 mg Diphenhydramine HCl (Benadryl) 25 mg IVP Q8 PRN PRN Reason: Itching / Pruritus Fluconazole (Diflucan Iv 200 Mg/100 Ml Ns) 100 mls @ 100 mls/hr IVPB DAILY [facility] Last Admin: 04/30/17 10:00 Dose: 100 mls/hr Meropenem 500 mg/ Sodium (Chloride) 100 mls @ 100 mls/hr IVPB Q8H [facility] Insulin Aspart (Novolog) 0 unit SC ACHS [facility] PRN Reason: Protocol Last Admin: 04/30/17 17:35 Dose: Not Given Lactobacillus Acidophilus (Bacid Acidophilus) 1 cap PO DAILY [facility] Last Admin: 04/30/17 09:53 Dose: 1 cap Magnesium Oxide (Mag-Ox) 400 mg PO DAILY [facility] Last Admin: 04/30/17 09:53 Dose: 400 mg Metoclopramide HCl (Reglan) 10 mg IVP ACHS [facility] Morphine Sulfate (Morphine) 2 mg IVP ONCE ONE Stop: 04/30/17 19:46 Multivitamins (Hexavitamin) 1 tab PO DAILY [facility] Last Admin: 04/30/17 09:53 Dose: 1 tab Pantoprazole Sodium (Protonix Ec Tab) 40 mg PO DAILY [facility] Last Admin: 04/30/17 09:53 Dose: 40 mg Tramadol HCl (Ultram) 50 mg PO TID [facility] Last Admin: 04/30/17 19:01 Dose: 50 mg Zinc Sulfate (Zinc Sulfate 220 Mg Cap) 220 mg PO DAILY [facility] Last Admin: 04/30/17 09:53 Dose: 220 mg - Labs Labs: 04/30/17 08:05 04/30/17 08:05 PT 11.9 SECONDS (9.7-12.2) 04/13/17 06:28 INR 1.1 04/13/17 06:28 APTT 27 SECONDS (21-34) 04/13/17 06:28 Attending/Attestation - Attestation I have personally seen and examined this patient.: Yes I have fully participated in the care of the patient.: Yes I have reviewed all pertinent clinical information, including history, physical exam and plan: Yes Notes (Text): 04/30/17 19:38 Pt was seen and examined at bedside Agree with above note and assessment Leukocystosis is resolving c.w IV antibiotics Plan d.w pt in detail.
[2017-04-27] MEDS: Fluconazole IV 200mg/100 ml NS 100 ML IVPB SCH (11:04)
[2017-04-27] MEDS: Pantoprazole 40 mg EC Tab PO SCH (11:07)
[2017-04-27] MEDS: Magnesium Oxide 400 mg Tab UD PO SCH (11:07)
[2017-04-27] MEDS: Lactobacillus Acidophilus 500 MU Cap PO SCH (11:08)
[2017-04-27] MEDS: Multiple Vitamins Tab PO SCH (11:08)
[2017-04-27] MEDS: Potassium Chloride 20 mEq ER Tab PO SCH (11:08)
[2017-04-27] MEDS ORDERED: Iodixanol 320 MG/ML 100 ML BOTTLE IV ONE (16:05)
--- NOTE | 2017-04-27 18:55 | CP.PCM.PN ---
Subjective - Date & Time of Evaluation Date of Evaluation: 04/27/17 Time of Evaluation: 09:00 - Subjective Subjective: clinically same Objective - Vital Signs/Intake and Output Vital Signs (last 24 hours): Temp Pulse Resp BP Pulse Ox 98.4 F 95 H 18 104/69 100 04/27/17 16:00 04/27/17 16:00 04/27/17 16:00 04/27/17 16:00 04/27/17 16:00 Intake and Output: 04/27/17 04/27/17 06:59 18:59 Intake Total 1040 1080 Output Total 600 400 Balance 440 680 - Medications Medications: Current Medications Acetaminophen (Tylenol 325mg Tab) 650 mg PO Q4 PRN PRN Reason: Fever >100.4 F Ascorbic Acid (Vitamin C 500 Mg Tab) 500 mg PO DAILY [facility] Last Admin: 04/27/17 11:08 Dose: Not Given Diphenhydramine HCl (Benadryl) 25 mg IVP Q8 PRN PRN Reason: Itching / Pruritus Tigecycline 50 mg/ Sodium (Chloride) 100 mls @ 100 mls/hr IVPB Q12H [facility] Last Admin: 04/27/17 13:59 Dose: 100 mls/hr Fluconazole (Diflucan Iv 200 Mg/100 Ml Ns) 100 mls @ 100 mls/hr IVPB DAILY [facility] Last Admin: 04/27/17 11:04 Dose: 100 mls/hr Sodium Chloride (Sodium Chloride 0.9%) 1,000 mls @ 75 mls/hr IV .[id number] [facility] Last Admin: 04/27/17 15:52 Dose: 75 mls/hr Insulin Aspart (Novolog) 0 unit SC ACHS [facility] PRN Reason: Protocol Last Admin: 04/27/17 18:37 Dose: 4 unit Lactobacillus Acidophilus (Bacid Acidophilus) 1 cap PO DAILY [facility] Last Admin: 04/27/17 11:08 Dose: Not Given Magnesium Oxide (Mag-Ox) 400 mg PO DAILY [facility] Last Admin: 04/27/17 11:07 Dose: Not Given Multivitamins (Hexavitamin) 1 tab PO DAILY [facility] Last Admin: 04/27/17 11:08 Dose: Not Given Ondansetron HCl (Zofran Inj) 4 mg IVP Q4 PRN PRN Reason: Nausea/Vomiting Last Admin: 04/24/17 11:20 Dose: 4 mg Pantoprazole Sodium (Protonix Ec Tab) 40 mg PO DAILY [facility] Last Admin: 04/27/17 11:07 Dose: Not Given Potassium Chloride (K-Dur 20 Meq Er Tab) 40 meq PO BRK [facility] Last Admin: 04/27/17 11:08 Dose: Not Given Tramadol HCl (Ultram) 50 mg PO TID [facility] Last Admin: 04/27/17 14:00 Dose: 50 mg Zinc Sulfate (Zinc Sulfate 220 Mg Cap) 220 mg PO DAILY [facility] Last Admin: 04/27/17 11:08 Dose: Not Given - Labs Labs: 04/27/17 06:45 04/27/17 06:45 PT 11.9 SECONDS (9.7-12.2) 04/13/17 06:28 INR 1.1 04/13/17 06:28 APTT 27 SECONDS (21-34) 04/13/17 06:28 - Constitutional Appears: Well - Head Exam Head Exam: ATRAUMATIC, NORMAL INSPECTION, NORMOCEPHALIC - Eye Exam Eye Exam: EOMI, Normal appearance, PERRL Pupil Exam: NORMAL ACCOMODATION, PERRL - ENT Exam ENT Exam: Mucous Membranes Moist, Normal Exam - Neck Exam Neck Exam: Full ROM, Normal Inspection. absent: Lymphadenopathy - Respiratory Exam Respiratory Exam: Decreased Breath Sounds - Cardiovascular Exam Cardiovascular Exam: REGULAR RHYTHM, +S1, +S2 - GI/Abdominal Exam GI & Abdominal Exam: Soft, Diminished Bowel Sounds - Rectal Exam Rectal Exam: Deferred - Back Exam Back Exam: NORMAL INSPECTION - Neurological Exam Neurological Exam: Alert, Awake, CN II-XII Intact, Normal Gait, Oriented x3 - Psychiatric Exam Psychiatric exam: Normal Affect, Normal Mood - Skin Skin Exam: Dry, Intact, Normal Color, Warm Assessment and Plan (1) Colonic fistula Status: Acute (2) Displacement of Mckeon catheter Status: Acute - Assessment and Plan (Free Text) Plan: Patient examined. Diffuse abdominal pain present. Continue broad-spectrum antibiotic. Continue insulin, other antidiabetic medications, antihypertensive medications and supportive care.
--- NOTE | 2017-04-27 20:03 | CT ---
EXAM: CT Pelvis With Intravenous Contrast EXAM DATE/TIME: 04/27/2017 10:32 AM CLINICAL HISTORY: 61 years old, female; Condition or disease; Abscess; Other: Pelvic; Additional info: Re-assess pelvic abscess seen on previous CT TECHNIQUE: Axial computed tomography images of the pelvis with intravenous contrast. All CT scans at this facility use one or more dose reduction techniques, viz.: automated exposure control; ma/kV adjustment per patient size (including targeted exams where dose is matched to indication; i.e. head); or iterative reconstruction technique. Coronal and sagittal reformatted images were created and reviewed. CONTRAST: 100 mL of visipaque 320 administered intravenously. COMPARISON: CT - CHEST,ABD,PEL W/IV CONT ONLY 2017-04-24 16:29 FINDINGS: Bowel: There is perirectal edema and inflammation. There is continued diffuse small and large bowel wall and fold thickening. There is a diverting ileostomy in the right lower quadrant. There are clips at the base of the cecum. Appendix: See stomach and bowel Intraperitoneal space: There is no free air. Bladder: Bladder is almost empty. There is a Mckeon catheter. There is air in the bladder. Reproductive: Uterus is absent. There are no adnexal masses. Subperitoneal space: There is inflammation and edema in the presacral space. Bones/joints: Bony structures are osteopenic with degenerative change. Soft tissues: There are postsurgical changes in the abdominal wall with edema and air. There are multiple skin cory. There is a ring enhancing 12 x 12 mm collection in the abdominal wall. There is an adjacent ring-enhancing 15 x 12 mm fluid collection Supravesical abscess continues to be present. A surgical drain runs through the anteroinferior aspect. Collection measures approximately 2.4 x 5.4 by 2.4 cm on today's study, 2.6 x 5.7 x 3 cm on 04/24/17. Vasculature: There are vascular calcifications. Lymph nodes: There is no pathologic adenopathy. IMPRESSION: Slight decrease in size of supravesical abscess with surgical drain in place; enterocolitis with diverting ileostomy in the right lower quadrant; postsurgical change in the abdominal wall with possible small abdominal wall abscesses Additional findings as described above.
--- NOTE | 2017-04-27 20:57 | PCM.URO ---
Urology Progress Note - Subjective Abdominal Pain: Yes Nausea: Yes Voiding Well: No (catheter in place, scant output, cloudy) Hematuria: No Chest Pain: No Other: I was asked to see pt for purulent drainage via urethral gonzalez catheter - Objective Lab Studies: Reviewed Lab Results Last 24 Hours: Laboratory Results - last 24 hr 04/26/17 04/27/17 04/27/17 21:28 06:45 06:45 WBC 10.6 RBC 3.55 L Hgb 10.1 L Hct 30.5 L MCV 85.8 MCH 28.5 MCHC 33.2 RDW 15.3 H Plt Count 220 MPV 9.2 Neut % (Auto) 70.4 Lymph % (Auto) 21.2 Dent % (Auto) 6.5 Eos % (Auto) 1.6 Baso % (Auto) 0.3 Neut # 7.5 H Lymph # 2.3 Dent # 0.7 Eos # 0.2 Baso # 0.0 Sodium 129 L Potassium 4.1 Chloride 102 Carbon Dioxide 20 L Anion Gap 11 BUN 12 Creatinine 0.6 L Est GFR ( Amer) > 60 Est GFR (Non-Af Amer) > 60 POC Glucose (mg/dL) 232 H Random Glucose 133 H Calcium 7.7 L Total Bilirubin 0.7 AST 56 H ALT 62 H Alkaline Phosphatase 245 H Total Protein 6.1 L Albumin 1.7 L Globulin 4.3 H Albumin/Globulin Ratio 0.4 L 04/27/17 04/27/17 04/27/17 06:51 11:53 17:10 WBC RBC Hgb Hct MCV MCH MCHC RDW Plt Count MPV Neut % (Auto) Lymph % (Auto) Dent % (Auto) Eos % (Auto) Baso % (Auto) Neut # Lymph # Dent # Eos # Baso # Sodium Potassium Chloride Carbon Dioxide Anion Gap BUN Creatinine Est GFR ( Amer) Est GFR (Non-Af Amer) POC Glucose (mg/dL) 148 H 130 H 225 H Random Glucose Calcium Total Bilirubin AST ALT Alkaline Phosphatase Total Protein Albumin Globulin Albumin/Globulin Ratio Intake & Output: Intake & Output 04/27/17 04/27/17 04/28/17 06:59 18:59 06:59 Intake Total 1040 1080 Output Total 600 400 Balance 440 680 Intake: Intake, IV Amount 1040 600 Left Antecubital 1040 600 Oral 480 Output: Gastric Amount 10 Right 10 Drainage 440 300 CHARITO 0 10 Left 110 90 Right 330 200 Urine 50 50 Urethral (Gonzalez) 50 50 Stool 100 Urine/Stool Mix 50 Vital Signs: Vital Signs - 24 hr 04/26/17 04/27/17 04/27/17 23:25 04:10 05:10 Temperature 97.8 F 97.9 F Pulse Rate 108 H 132 H 101 H Respiratory 20 20 Rate Blood Pressure 102/63 101/73 O2 Sat by Pulse 98 98 Oximetry 04/27/17 04/27/17 04/27/17 08:15 12:13 16:00 Temperature 98.1 F 97.6 F 98.4 F Pulse Rate 105 H 106 H 95 H Respiratory 17 106 H 18 Rate Blood Pressure 92/61 L 118/71 104/69 O2 Sat by Pulse 100 100 100 Oximetry - Physical Exam Abdominal Exam: Soft, Non-Distended. absent: Non-Tender Wound: absent: Clean (open area of skin of mid wound , w drainage), Healing Well Back: No CVA Tenderness (bilat NT in place, draing reilly urine) Urine Color: Light Reilly - Plan Additional Information: Imp: s/p bowel resection, resection of enetro-vesical fistula, and ileostomy. Wound infection. intra-abd collection. Ileostomy bag leakage. bilat nephrostomy tubes in place. Prev purulent drainage via gonzalez, now clearer. Rec/plan: on diflucan and tigecycline. catheters in place. consider cystogram. wound care. ileostomy care. YS - Date & Time of Note Date: 04/27/17 Time: 21:01
[2017-04-28] MEDS: (Novolog) Insulin Aspart, Recombinant 100 u/ml 10 ml vial SC SCH ×4 (08:15→22:55)
[2017-04-28] MEDS: Potassium Chloride 20 mEq ER Tab PO SCH (09:00)
--- NOTE | 2017-04-28 09:26 | CP.PCM.PN ---
Addendum entered and electronically signed by Zari Desouza DO 04/28/17 16:43: Spoke w/ IR - abscess currently draining via gonzalez. no need for IR drain Flush gonzalez and saad w/ 30cc NS BID Original Note: <Zari Desouza - Last Filed: 04/28/17 09:30> Subjective - Date & Time of Evaluation Date of Evaluation: 04/28/17 Time of Evaluation: 06:45 - Subjective Subjective: General Surgery Dr. Cabral Pt seen and examined @bedside. no events overnight. pt complaining of nausea, headache, fatigue. pain well controlled. tolerating regular diet. Objective - Vital Signs/Intake and Output Vital Signs (last 24 hours): Temp Pulse Resp BP Pulse Ox 98.1 F 101 H 20 101/67 100 04/28/17 07:07 04/28/17 07:07 04/28/17 07:07 04/28/17 07:07 04/28/17 07:07 Intake and Output: 04/28/17 04/28/17 06:59 18:59 Intake Total 1510 Output Total 1300 Balance 210 - Medications Medications: Current Medications Acetaminophen (Tylenol 325mg Tab) 650 mg PO Q4 PRN PRN Reason: Fever >100.4 F Ascorbic Acid (Vitamin C 500 Mg Tab) 500 mg PO DAILY [facility] Last Admin: 04/27/17 11:08 Dose: Not Given Diphenhydramine HCl (Benadryl) 25 mg IVP Q8 PRN PRN Reason: Itching / Pruritus Tigecycline 50 mg/ Sodium (Chloride) 100 mls @ 100 mls/hr IVPB Q12H [facility] Last Admin: 04/28/17 00:55 Dose: 100 mls/hr Fluconazole (Diflucan Iv 200 Mg/100 Ml Ns) 100 mls @ 100 mls/hr IVPB DAILY [facility] Last Admin: 04/27/17 11:04 Dose: 100 mls/hr Sodium Chloride (Sodium Chloride 0.9%) 1,000 mls @ 75 mls/hr IV .[id number] [facility] Last Admin: 04/27/17 23:10 Dose: Not Given Insulin Aspart (Novolog) 0 unit SC ACHS [facility] PRN Reason: Protocol Last Admin: 04/27/17 21:56 Dose: Not Given Lactobacillus Acidophilus (Bacid Acidophilus) 1 cap PO DAILY [facility] Last Admin: 04/27/17 11:08 Dose: Not Given Magnesium Oxide (Mag-Ox) 400 mg PO DAILY [facility] Last Admin: 04/27/17 11:07 Dose: Not Given Multivitamins (Hexavitamin) 1 tab PO DAILY [facility] Last Admin: 04/27/17 11:08 Dose: Not Given Ondansetron HCl (Zofran Inj) 4 mg IVP Q4 PRN PRN Reason: Nausea/Vomiting Last Admin: 04/24/17 11:20 Dose: 4 mg Pantoprazole Sodium (Protonix Ec Tab) 40 mg PO DAILY [facility] Last Admin: 04/27/17 11:07 Dose: Not Given Potassium Chloride (K-Dur 20 Meq Er Tab) 40 meq PO BRK [facility] Last Admin: 04/27/17 11:08 Dose: Not Given Tramadol HCl (Ultram) 50 mg PO TID [facility] Last Admin: 04/27/17 18:52 Dose: Not Given Zinc Sulfate (Zinc Sulfate 220 Mg Cap) 220 mg PO DAILY [facility] Last Admin: 04/27/17 11:08 Dose: Not Given - Labs Labs: 04/27/17 06:45 04/27/17 06:45 PT 11.9 SECONDS (9.7-12.2) 04/13/17 06:28 INR 1.1 04/13/17 06:28 APTT 27 SECONDS (21-34) 04/13/17 06:28 - Constitutional Appears: Non-toxic, No Acute Distress, Cachectic, Chronically Ill - Head Exam Head Exam: NORMAL INSPECTION - Eye Exam Eye Exam: Normal appearance - ENT Exam ENT Exam: Mucous Membranes Moist - Respiratory Exam Respiratory Exam: NORMAL BREATHING PATTERN. absent: Accessory Muscle Use, Respiratory Distress - Cardiovascular Exam Cardiovascular Exam: Tachycardia - GI/Abdominal Exam GI & Abdominal Exam: Soft, Tenderness (brandt-incisional TTP). absent: Distended Additional comments: dressings c/d/i saad present w/ scant purulent material gonzalez present w/ scant purulent material ileostomy w/ semi-formed stool - Extremities Exam Extremities Exam: Normal Inspection - Back Exam Additional comments: B/L nephrostomy tubes - Neurological Exam Neurological Exam: Alert, Awake, Oriented x3 - Psychiatric Exam Psychiatric exam: Normal Affect, Normal Mood - Skin Skin Exam: Dry, Normal Color, Warm Assessment and Plan - Assessment and Plan (Free Text) Assessment: 61 y/o F POD#16 s/p ex-lap, small bowel resection w/ ileostomy, bladder repair, appendectomy - Repeat CT fairly unchanged - f/u IR recs for possible drainage - cont pain management - Gonzalez to stay until removed by Dr. Whitaker, urology - encourage OOB to chair/Amb/IS use Pt discussed w/ Dr. Misha Desouza DO PGY2 <Sumeet Cabral - Last Filed: 04/30/17 19:44> Objective - Vital Signs/Intake and Output Vital Signs (last 24 hours): Temp Pulse Resp BP Pulse Ox 97.7 F 95 H 20 95/65 L 99 04/30/17 12:00 04/30/17 13:00 04/30/17 13:00 04/30/17 13:00 04/30/17 13:00 Intake and Output: 04/30/17 05/01/17 18:59 06:59 Intake Total 1680 Output Total 500 Balance 1180 - Medications Medications: Current Medications Acetaminophen (Tylenol 325mg Tab) 650 mg PO Q4 PRN PRN Reason: Fever >100.4 F Ascorbic Acid (Vitamin C 500 Mg Tab) 500 mg PO DAILY [facility] Last Admin: 04/30/17 09:53 Dose: 500 mg Diphenhydramine HCl (Benadryl) 25 mg IVP Q8 PRN PRN Reason: Itching / Pruritus Fluconazole (Diflucan Iv 200 Mg/100 Ml Ns) 100 mls @ 100 mls/hr IVPB DAILY [facility] Last Admin: 04/30/17 10:00 Dose: 100 mls/hr Meropenem 500 mg/ Sodium (Chloride) 100 mls @ 100 mls/hr IVPB Q8H [facility] Insulin Aspart (Novolog) 0 unit SC ACHS [facility] PRN Reason: Protocol Last Admin: 04/30/17 17:35 Dose: Not Given Lactobacillus Acidophilus (Bacid Acidophilus) 1 cap PO DAILY [facility] Last Admin: 04/30/17 09:53 Dose: 1 cap Magnesium Oxide (Mag-Ox) 400 mg PO DAILY [facility] Last Admin: 04/30/17 09:53 Dose: 400 mg Metoclopramide HCl (Reglan) 10 mg IVP ACHS [facility] Morphine Sulfate (Morphine) 2 mg IVP ONCE ONE Stop: 04/30/17 19:46 Multivitamins (Hexavitamin) 1 tab PO DAILY [facility] Last Admin: 04/30/17 09:53 Dose: 1 tab Pantoprazole Sodium (Protonix Ec Tab) 40 mg PO DAILY [facility] Last Admin: 04/30/17 09:53 Dose: 40 mg Tramadol HCl (Ultram) 50 mg PO TID [facility] Last Admin: 04/30/17 19:01 Dose: 50 mg Zinc Sulfate (Zinc Sulfate 220 Mg Cap) 220 mg PO DAILY [facility] Last Admin: 04/30/17 09:53 Dose: 220 mg - Labs Labs: 04/30/17 08:05 04/30/17 08:05 PT 11.9 SECONDS (9.7-12.2) 04/13/17 06:28 INR 1.1 04/13/17 06:28 APTT 27 SECONDS (21-34) 04/13/17 06:28 Attending/Attestation - Attestation I have personally seen and examined this patient.: Yes I have fully participated in the care of the patient.: Yes I have reviewed all pertinent clinical information, including history, physical exam and plan: Yes Notes (Text): 04/30/17 19:44 Pt was seen and examined at bedside Agree with above note and assessment C.w current mx OOB to walk Plan [email or web address] pt in detail.
[2017-04-28] MEDS: Magnesium Oxide 400 mg Tab UD PO SCH (10:57)
[2017-04-28] MEDS: Multiple Vitamins Tab PO SCH (10:57)
[2017-04-28] MEDS: Pantoprazole 40 mg EC Tab PO SCH (10:59)
[2017-04-28] MEDS: Lactobacillus Acidophilus 500 MU Cap PO SCH (10:59)
[2017-04-28] MEDS: Fluconazole IV 200mg/100 ml NS 100 ML IVPB SCH (11:00)
[2017-04-28] MEDS: Sodium Chloride 0.9% 1,000 ML IV SCH (14:06)
--- NOTE | 2017-04-28 19:42 | CP.PCM.PN ---
<Juan Carlos Cabral - Last Filed: 04/28/17 21:46> Subjective - Date & Time of Evaluation Date of Evaluation: 04/28/17 Time of Evaluation: 19:41 - Subjective Subjective: PGY-[address] Higgins's service: Pt seen and examined at bedside. POD#15 ex lap for small bowel resection with ileostomy, bladder repair and appendectomy. Patient reporting mild abdominal pain around incision sites, along with headache this AM. She reports her pain is controlled on current regimen. Objective - Vital Signs/Intake and Output Vital Signs (last 24 hours): Temp Pulse Resp BP Pulse Ox 97.4 F L 94 H 18 93/62 L 100 04/28/17 16:00 04/28/17 16:00 04/28/17 16:00 04/28/17 16:00 04/28/17 16:00 Intake and Output: 04/28/17 04/29/17 18:59 06:59 Intake Total 1020 Output Total 800 Balance 220 - Medications Medications: Current Medications Acetaminophen (Tylenol 325mg Tab) 650 mg PO Q4 PRN PRN Reason: Fever >100.4 F Ascorbic Acid (Vitamin C 500 Mg Tab) 500 mg PO DAILY [facility] Last Admin: 04/28/17 10:59 Dose: 500 mg Diphenhydramine HCl (Benadryl) 25 mg IVP Q8 PRN PRN Reason: Itching / Pruritus Tigecycline 50 mg/ Sodium (Chloride) 100 mls @ 100 mls/hr IVPB Q12H [facility] Last Admin: 04/28/17 13:30 Dose: 100 mls/hr Fluconazole (Diflucan Iv 200 Mg/100 Ml Ns) 100 mls @ 100 mls/hr IVPB DAILY [facility] Last Admin: 04/28/17 11:00 Dose: 100 mls/hr Sodium Chloride (Sodium Chloride 0.9%) 1,000 mls @ 75 mls/hr IV .[id number] [facility] Last Admin: 04/28/17 14:06 Dose: 75 mls/hr Insulin Aspart (Novolog) 0 unit SC ACHS [facility] PRN Reason: Protocol Last Admin: 04/28/17 12:15 Dose: 6 unit Lactobacillus Acidophilus (Bacid Acidophilus) 1 cap PO DAILY [facility] Last Admin: 04/28/17 10:59 Dose: 1 cap Magnesium Oxide (Mag-Ox) 400 mg PO DAILY [facility] Last Admin: 04/28/17 10:57 Dose: 400 mg Multivitamins (Hexavitamin) 1 tab PO DAILY [facility] Last Admin: 04/28/17 10:57 Dose: 1 tab Ondansetron HCl (Zofran Inj) 4 mg IVP Q4 PRN PRN Reason: Nausea/Vomiting Last Admin: 04/24/17 11:20 Dose: 4 mg Pantoprazole Sodium (Protonix Ec Tab) 40 mg PO DAILY [facility] Last Admin: 04/28/17 10:59 Dose: 40 mg Potassium Chloride (K-Dur 20 Meq Er Tab) 40 meq PO BRK [facility] Last Admin: 04/28/17 09:00 Dose: 40 meq Tramadol HCl (Ultram) 50 mg PO TID [facility] Last Admin: 04/28/17 18:08 Dose: 50 mg Zinc Sulfate (Zinc Sulfate 220 Mg Cap) 220 mg PO DAILY [facility] Last Admin: 04/28/17 10:59 Dose: 220 mg - Labs Labs: 04/27/17 06:45 04/27/17 06:45 PT 11.9 SECONDS (9.7-12.2) 04/13/17 06:28 INR 1.1 04/13/17 06:28 APTT 27 SECONDS (21-34) 04/13/17 06:28 - Additional Findings Additional findings: - Constitutional Appears: Non-toxic, No Acute Distress, Cachectic - Head Exam Head Exam: NORMOCEPHALIC - Eye Exam Eye Exam: Normal appearance Pupil Exam: NORMAL ACCOMODATION - ENT Exam ENT Exam: Mucous Membranes Moist - Respiratory Exam Respiratory Exam: Clear to Ausculation Bilateral, NORMAL BREATHING PATTERN. absent: Wheezes - Cardiovascular Exam Cardiovascular Exam: REGULAR RHYTHM, +S1, +S2. 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 Gas/fluid collection noted within the cystectomy bed suggesting abscess formation. 2. A urethral balloon tipped catheter is directed into a bowel loop in the right lower quadrant and appears to terminate at the level of the descending colon. Clinical correlation suggested. 3. Subtle irregularity noted along the margins of the symphysis pubis could represent osteomyelitis. 4. A grade 1 spondylolisthesis at L4-5. Bilateral foraminal stenosis. 5. Bilateral percutaneous nephrostomy catheters. There is evidence of left renal atrophy. - follow up CT 04/24/17 showing multiple intrabdominal abscesses - follow up CT post-IR drainage (04/27/17): Slight decrease in size of supravesical abscess with surgical drain in place; enterocolitis with diverting ileostomy in the right lower quadrant; post-surgical change in abdominal wall with possible small abdominal wall abscesses. Dr. Cabral, Gen Surgery consult: - Small bowel resection, bladder repair, appendectomy, ileostomy performed - No need for IR drain, abscess draining via gonzalez - flush gonzalez and saad w 30cc NS BID - Leave gonzalez until removed by urology Dr. Cutler, ID consult Tigecycline 50mg IV Q12H for total of 14 days, started on 04/15 Dr. Fernandez, urology consult: - previous purulent drainage via gonzalez catheter, clearer - consider cystogram Abdominal Fluid Culture: (04/14/17): Stentrophomonas Maltophilia, VRE Peritoneal fluid culture: (04/14/17): VRE Urine Culture: (04/14/17) Yeast Species Leukocytosis WBC downtrending, 10.6 today Afebrile, tachycardia Tigecycline 50mg IV Q12H for total of 14 days, started on 04/15 Diflucan 50ml IV Q24H NS @ 75 ml/hr Abdominal Abscess Dr Trinidad, IR compensation consultant: - Abscess draining via gonzalez, no need for IR drain Abnormal Urine culture Urine Culture: (04/14/17) Yeast Species Diflucan 50mls IV Q24H Sacral Pressure Ulcer Stage II Wound care on board Prophylaxis Protonix 40mg PO Daily [facility]CD[facility] All medical management per Dr. Higgins <Tonya Higgins - Last Filed: 05/18/17 16:58> Objective - Vital Signs/Intake and Output Vital Signs (last 24 hours): Temp Pulse Resp BP Pulse Ox 97.9 F 115 H 18 99/61 L 96 05/18/17 08:42 05/18/17 08:42 05/18/17 08:42 05/18/17 08:42 05/18/17 08:42 Intake and Output: 05/18/17 05/18/17 06:59 18:59 Intake Total 1180 639 Output Total 1920 800 Balance -740 -161 - Medications Medications: Current Medications Acetaminophen/Codeine Phosphate (Tylenol/Codeine 300 Mg/30 Mg) 1 ea PO Q6 PRN PRN Reason: Pain, Mild (1-3) Last Admin: 05/17/17 18:47 Dose: 1 ea Ascorbic Acid (Vitamin C 500 Mg Tab) 500 mg PO DAILY [facility] Last Admin: 05/18/17 09:31 Dose: 500 mg Enoxaparin Sodium (Lovenox) 40 mg SC Q12 [facility] Last Admin: 05/07/17 21:41 Dose: 40 mg Fluconazole (Diflucan Iv 200 Mg/100 Ml Ns) 100 mls @ 100 mls/hr IVPB DAILY [facility] Last Admin: 05/18/17 09:32 Dose: 100 mls/hr Fat Emulsion Intravenous (Intralipid 20%) 250 mls @ 42 mls/hr IV TTS@1800 [facility] Stop: 05/22/17 18:01 Last Admin: 05/16/17 17:42 Dose: 42 mls/hr Multivitamins/Vitamin C 10 ml/Chromium/Copper/Manganese/Zinc 1 ml/ Amino Acids 1,011 mls @ 42 mls/hr IV .Q24H [facility] Stop: 05/18/17 17:59 Last Admin: 05/17/17 18:30 Dose: 42 mls/hr Linezolid (Zyvox 600mg/300ml D5w) 600 mg in 300 mls @ 200 mls/hr IVPB Q12 [facility] Last Admin: 05/18/17 10:55 Dose: 200 mls/hr Meropenem 500 mg/ Dextrose 100 mls @ 100 mls/hr IVPB Q8 [facility] Last Admin: 05/18/17 14:28 Dose: 100 mls/hr Multivitamins/Vitamin C 10 ml/Chromium/Copper/Manganese/Zinc 1 ml/ Amino Acids 1,011 mls @ 42 mls/hr IV .Q24H [facility] Stop: 05/19/17 17:59 Insulin Human Regular (Novolin R) 0 unit SC ACHS [facility] PRN Reason: Protocol Last Admin: 05/18/17 12:44 Dose: 6 unit Lactobacillus Acidophilus (Bacid Acidophilus) 1 cap PO DAILY [facility] Last Admin: 05/18/17 09:31 Dose: 1 cap Loperamide HCl (Imodium) 2 mg PO QID PRN PRN Reason: Diarrhea Last Admin: 05/01/17 22:58 Dose: 2 mg Magnesium Oxide (Mag-Ox) 400 mg PO DAILY [facility] Last Admin: 05/18/17 09:31 Dose: 400 mg Multivitamins (Hexavitamin) 1 tab PO DAILY [facility] Last Admin: 05/18/17 09:31 Dose: 1 tab Ondansetron HCl (Zofran Tab) 4 mg PO Q8H PRN PRN Reason: Nausea/Vomiting Petrolatum (Desitin Original) 0 gm TOP TID PRN PRN Reason: Rash Tramadol HCl (Ultram) 25 mg PO TID PRN PRN Reason: Pain, Mild (1-3) Zinc Sulfate (Zinc Sulfate 220 Mg Cap) 220 mg PO DAILY [facility] Last Admin: 05/18/17 09:31 Dose: 220 mg - Labs Labs: 05/18/17 06:51 05/18/17 06:51 PT 11.9 SECONDS (9.7-12.2) 04/13/17 06:28 INR 1.1 04/13/17 06:28 APTT 27 SECONDS (21-34) 04/13/17 06:28 Assessment and Plan (1) Colonic fistula Status: Acute (2) Displacement of Gonzalez catheter Status: Acute Attending/Attestation - Attestation I have personally seen and examined this patient.: Yes I have fully participated in the care of the patient.: Yes I have reviewed all pertinent clinical information, including history, physical exam and plan: Yes Notes (Text): Patient examined. Lower abdominal pain present. Continue antibiotic tigecycline. Continue antidiabetic, and anti-HTN and supportive medications.
--- NOTE | 2017-04-28 23:43 | CP.PCM.PN ---
Subjective - Date & Time of Evaluation Date of Evaluation: 04/28/17 Time of Evaluation: 21:30 - Subjective Subjective: clinically same. Objective - Vital Signs/Intake and Output Vital Signs (last 24 hours): Temp Pulse Resp BP Pulse Ox 97.4 F L 94 H 18 93/62 L 100 04/28/17 16:00 04/28/17 16:00 04/28/17 16:00 04/28/17 16:00 04/28/17 16:00 Intake and Output: 04/28/17 04/29/17 18:59 06:59 Intake Total 1020 Output Total 800 655 Balance 220 -655 - Medications Medications: Current Medications Acetaminophen (Tylenol 325mg Tab) 650 mg PO Q4 PRN PRN Reason: Fever >100.4 F Ascorbic Acid (Vitamin C 500 Mg Tab) 500 mg PO DAILY [facility] Last Admin: 04/28/17 10:59 Dose: 500 mg Diphenhydramine HCl (Benadryl) 25 mg IVP Q8 PRN PRN Reason: Itching / Pruritus Tigecycline 50 mg/ Sodium (Chloride) 100 mls @ 100 mls/hr IVPB Q12H [facility] Last Admin: 04/28/17 13:30 Dose: 100 mls/hr Fluconazole (Diflucan Iv 200 Mg/100 Ml Ns) 100 mls @ 100 mls/hr IVPB DAILY [facility] Last Admin: 04/28/17 11:00 Dose: 100 mls/hr Sodium Chloride (Sodium Chloride 0.9%) 1,000 mls @ 75 mls/hr IV .[id number] [facility] Last Admin: 04/28/17 14:06 Dose: 75 mls/hr Insulin Aspart (Novolog) 0 unit SC ACHS [facility] PRN Reason: Protocol Last Admin: 04/28/17 22:55 Dose: Not Given Lactobacillus Acidophilus (Bacid Acidophilus) 1 cap PO DAILY [facility] Last Admin: 04/28/17 10:59 Dose: 1 cap Magnesium Oxide (Mag-Ox) 400 mg PO DAILY [facility] Last Admin: 04/28/17 10:57 Dose: 400 mg Multivitamins (Hexavitamin) 1 tab PO DAILY [facility] Last Admin: 04/28/17 10:57 Dose: 1 tab Ondansetron HCl (Zofran Inj) 4 mg IVP Q4 PRN PRN Reason: Nausea/Vomiting Last Admin: 04/24/17 11:20 Dose: 4 mg Pantoprazole Sodium (Protonix Ec Tab) 40 mg PO DAILY [facility] Last Admin: 04/28/17 10:59 Dose: 40 mg Potassium Chloride (K-Dur 20 Meq Er Tab) 40 meq PO BRK [facility] Last Admin: 04/28/17 09:00 Dose: 40 meq Tramadol HCl (Ultram) 50 mg PO TID [facility] Last Admin: 04/28/17 18:08 Dose: 50 mg Zinc Sulfate (Zinc Sulfate 220 Mg Cap) 220 mg PO DAILY [facility] Last Admin: 04/28/17 10:59 Dose: 220 mg - Labs Labs: 04/27/17 06:45 04/27/17 06:45 PT 11.9 SECONDS (9.7-12.2) 04/13/17 06:28 INR 1.1 04/13/17 06:28 APTT 27 SECONDS (21-34) 04/13/17 06:28 - Constitutional Appears: Well - Head Exam Head Exam: ATRAUMATIC, NORMAL INSPECTION, NORMOCEPHALIC - Eye Exam Eye Exam: EOMI, Normal appearance, PERRL Pupil Exam: NORMAL ACCOMODATION, PERRL - ENT Exam ENT Exam: Mucous Membranes Moist, Normal Exam - Neck Exam Neck Exam: Full ROM, Normal Inspection. absent: Lymphadenopathy - Respiratory Exam Respiratory Exam: Clear to Ausculation Bilateral, NORMAL BREATHING PATTERN - Cardiovascular Exam Cardiovascular Exam: REGULAR RHYTHM, +S1, +S2. absent: Murmur - GI/Abdominal Exam GI & Abdominal Exam: Soft, Normal Bowel Sounds. absent: Tenderness - Rectal Exam Rectal Exam: Deferred - Extremities Exam Extremities Exam: Full ROM, Normal Capillary Refill, Normal Inspection. absent : Joint Swelling, Pedal Edema - Back Exam Back Exam: NORMAL INSPECTION - Neurological Exam Neurological Exam: Alert, Awake, CN II-XII Intact, Normal Gait, Oriented x3 - Psychiatric Exam Psychiatric exam: Normal Affect, Normal Mood - Skin Skin Exam: Dry, Intact, Normal Color, Warm Assessment and Plan (1) Colonic fistula Status: Acute (2) Displacement of Mckeon catheter Status: Acute - Assessment and Plan (Free Text) Plan: Patient examined. Diffuse abdominal pain present. Continue broad-spectrum antibiotic. Continue insulin, other antidiabetic medications, antihypertensive medications and supportive care.
[2017-04-29] MEDS: Sodium Chloride 0.9% 1,000 ML IV SCH ×2 (02:00→17:55)
[2017-04-29] MEDS: (Novolog) Insulin Aspart, Recombinant 100 u/ml 10 ml vial SC SCH ×4 (07:21→22:04)
--- NOTE | 2017-04-29 10:48 | PCM.RRT ---
ESL PROFESSOR Nurses Assessment New IV Insertion Tolerance: Good - Ventilator Settings FIO2 (% Oxygen): 40 - Neurological Status (Select all that apply): Alert, Responsive, Oriented, Verbal, Follows Commands - Constitutional Appears: No Acute Distress - Head Head Exam: ATRAUMATIC, NORMOCEPHALIC - Eyes Eye Exam: EOMI, Normal appearance - Respiratory Exam Respiratory Exam: Clear to Ausculation Bilateral, NORMAL BREATHING PATTERN. absent: Accessory Muscle Use, Rales, Wheezes, Respiratory Distress - Cardiovascular Exam Cardiovascular Exam: REGULAR RHYTHM. absent: Murmur - GI/Abdominal Exam GI & Abdominal Exam: Soft, Normal Bowel Sounds. absent: Distended, Firm, Guarding, Rigid, Tenderness Additional comments: Patient has b/l nephrostomy tubes full, draining clear fluid. Patient's ileostomy bag is draining watery, yellow stool. The ileostomy bag is currently leaking on the patient. Nurse Almaraz informed and instructed to change. - Neurological Exam Neurological Exam: Alert, Awake, Oriented x3 - Extremities Exam Extremities Exam: Normal Inspection. absent: Calf Tenderness, Pedal Edema Plan - Assessment of Findings&Treatment Plan ESL PROFESSOR called due to low BP. Upon arrival, patient was asymptomatic and remained asymptomatic throughout rapid. Patient was awake, alert and talking throughout ESL PROFESSOR. Patient's chart was reviewed. Patient's urine culture from 04/27/17 has grown Gram Negative Rods. Patient is currently on tigecycline, this is appropriate coverage at this time. Patient has gonzalez catheter in place draining dark urine with sediment. Patient has b/l nephrostomy tubes draining clear fluid. Patient's ileostomy bag is draining watery, yellow stool. The ileostomy bag is currently leaking on the patient. Nurse Almaraz informed and instructed to change. Patient already has General Surgery (Dr. Cabral), Infectious Disease (Dr. Cutler), Cardiology (Dr. Hodge), Interventional Radiology (Dr. Trinidad ) and Urology (Dr. Kwame Fernandez) as consults on the case. Patient was placed in trendelenburg position. Given a 500cc bolus of NS. Patient 's blood pressure responded appropriately. Patient was started on continuous fluids, NS@ 50mL/hr. No new tests were ordered at this time as patient patient is asymptomatic, her blood pressure is responding to fluids appropriately and she already has cultures and other tests pending. Patient was resting comfortably throughout ESL PROFESSOR stating, "Why are there so many people here? I am fine." Dr. Nadja Higgins was notified of ESL PROFESSOR.
[2017-04-29] MEDS: Fluconazole IV 200mg/100 ml NS 100 ML IVPB SCH (11:37)
[2017-04-29] MEDS: Lactobacillus Acidophilus 500 MU Cap PO SCH (11:38)
[2017-04-29] MEDS: Potassium Chloride 20 mEq ER Tab PO SCH (11:38)
[2017-04-29] MEDS: Pantoprazole 40 mg EC Tab PO SCH (11:38)
[2017-04-29] MEDS: Multiple Vitamins Tab PO SCH (11:38)
[2017-04-29] MEDS: Magnesium Oxide 400 mg Tab UD PO SCH (11:46)
--- NOTE | 2017-04-29 14:50 | CP.PCM.PN ---
Subjective - Date & Time of Evaluation Date of Evaluation: 04/29/17 Time of Evaluation: 14:47 - Subjective Subjective: Surgery: Dr. Cabral Pt seen and examined. Had GEOPHYSICAL DATA TECHNICIAN this morning for low BP. Currently asymptomatic. No complaints. Objective - Vital Signs/Intake and Output Vital Signs (last 24 hours): Temp Pulse Resp BP Pulse Ox 98.7 F 107 H 20 77/51 L 100 04/29/17 07:00 04/29/17 07:00 04/29/17 07:00 04/29/17 07:00 04/29/17 07:00 Intake and Output: 04/29/17 04/29/17 06:59 18:59 Intake Total 600 Output Total 905 Balance -305 - Medications Medications: Current Medications Acetaminophen (Tylenol 325mg Tab) 650 mg PO Q4 PRN PRN Reason: Fever >100.4 F Ascorbic Acid (Vitamin C 500 Mg Tab) 500 mg PO DAILY [facility] Last Admin: 04/29/17 11:38 Dose: 500 mg Diphenhydramine HCl (Benadryl) 25 mg IVP Q8 PRN PRN Reason: Itching / Pruritus Tigecycline 50 mg/ Sodium (Chloride) 100 mls @ 100 mls/hr IVPB Q12H [facility] Last Admin: 04/29/17 13:37 Dose: 100 mls/hr Fluconazole (Diflucan Iv 200 Mg/100 Ml Ns) 100 mls @ 100 mls/hr IVPB DAILY [facility] Last Admin: 04/29/17 11:37 Dose: 100 mls/hr Sodium Chloride (Sodium Chloride 0.9%) 1,000 mls @ 75 mls/hr IV .[id number] [facility] Last Admin: 04/29/17 02:00 Dose: Not Given Insulin Aspart (Novolog) 0 unit SC ACHS [facility] PRN Reason: Protocol Last Admin: 04/29/17 11:30 Dose: Not Given Lactobacillus Acidophilus (Bacid Acidophilus) 1 cap PO DAILY [facility] Last Admin: 04/29/17 11:38 Dose: 1 cap Magnesium Oxide (Mag-Ox) 400 mg PO DAILY [facility] Last Admin: 04/29/17 11:46 Dose: Not Given Multivitamins (Hexavitamin) 1 tab PO DAILY [facility] Last Admin: 04/29/17 11:38 Dose: 1 tab Ondansetron HCl (Zofran Inj) 4 mg IVP Q4 PRN PRN Reason: Nausea/Vomiting Last Admin: 04/24/17 11:20 Dose: 4 mg Pantoprazole Sodium (Protonix Ec Tab) 40 mg PO DAILY [facility] Last Admin: 04/29/17 11:38 Dose: 40 mg Potassium Chloride (K-Dur 20 Meq Er Tab) 40 meq PO BRK [facility] Last Admin: 04/29/17 11:38 Dose: 40 meq Tramadol HCl (Ultram) 50 mg PO TID [facility] Last Admin: 04/29/17 14:16 Dose: 50 mg Zinc Sulfate (Zinc Sulfate 220 Mg Cap) 220 mg PO DAILY [facility] Last Admin: 04/29/17 11:38 Dose: 220 mg - Labs Labs: 04/27/17 06:45 04/27/17 06:45 PT 11.9 SECONDS (9.7-12.2) 04/13/17 06:28 INR 1.1 04/13/17 06:28 APTT 27 SECONDS (21-34) 04/13/17 06:28 - Constitutional Appears: Non-toxic, Cachectic, Chronically Ill - Head Exam Head Exam: ATRAUMATIC, NORMOCEPHALIC - Eye Exam Eye Exam: EOMI, PERRL Pupil Exam: NORMAL ACCOMODATION - ENT Exam ENT Exam: Mucous Membranes Moist - Neck Exam Neck Exam: Full ROM, Normal Inspection - Respiratory Exam Respiratory Exam: NORMAL BREATHING PATTERN. absent: Accessory Muscle Use, Respiratory Distress - GI/Abdominal Exam GI & Abdominal Exam: Soft, Tenderness (mild brandt-incisional ). absent: Distended, Firm, Guarding, Rigid Additional comments: saad in place - Extremities Exam Extremities Exam: absent: Calf Tenderness, Pedal Edema - Back Exam Additional comments: B/L nephrostomy tubes in place - Neurological Exam Neurological Exam: Alert, Oriented x3 Assessment and Plan - Assessment and Plan (Free Text) Assessment: 61 y/o F POD#17 s/p ex-lap, small bowel resection w/ ileostomy, bladder repair, appendectomy -Per IR, Pelvic abscess being drained by gonzalez -Flush gonzalez w. 30cc NS BID -Gonzalez to stay in place per urology -Encourage OOB and IS use -d/w attending Negritaitis PGY3
--- NOTE | 2017-04-29 14:58 | CP.PCM.PN ---
Subjective - Date & Time of Evaluation Date of Evaluation: 04/29/17 Time of Evaluation: 09:20 - Subjective Subjective: clinically same Objective - Vital Signs/Intake and Output Vital Signs (last 24 hours): Temp Pulse Resp BP Pulse Ox 98.7 F 107 H 20 77/51 L 100 04/29/17 07:00 04/29/17 07:00 04/29/17 07:00 04/29/17 07:00 04/29/17 07:00 Intake and Output: 04/29/17 04/29/17 06:59 18:59 Intake Total 600 Output Total 905 Balance -305 - Medications Medications: Current Medications Acetaminophen (Tylenol 325mg Tab) 650 mg PO Q4 PRN PRN Reason: Fever >100.4 F Ascorbic Acid (Vitamin C 500 Mg Tab) 500 mg PO DAILY [facility] Last Admin: 04/29/17 11:38 Dose: 500 mg Diphenhydramine HCl (Benadryl) 25 mg IVP Q8 PRN PRN Reason: Itching / Pruritus Tigecycline 50 mg/ Sodium (Chloride) 100 mls @ 100 mls/hr IVPB Q12H [facility] Last Admin: 04/29/17 13:37 Dose: 100 mls/hr Fluconazole (Diflucan Iv 200 Mg/100 Ml Ns) 100 mls @ 100 mls/hr IVPB DAILY [facility] Last Admin: 04/29/17 11:37 Dose: 100 mls/hr Sodium Chloride (Sodium Chloride 0.9%) 1,000 mls @ 75 mls/hr IV .[id number] [facility] Last Admin: 04/29/17 02:00 Dose: Not Given Insulin Aspart (Novolog) 0 unit SC ACHS [facility] PRN Reason: Protocol Last Admin: 04/29/17 11:30 Dose: Not Given Lactobacillus Acidophilus (Bacid Acidophilus) 1 cap PO DAILY [facility] Last Admin: 04/29/17 11:38 Dose: 1 cap Magnesium Oxide (Mag-Ox) 400 mg PO DAILY [facility] Last Admin: 04/29/17 11:46 Dose: Not Given Multivitamins (Hexavitamin) 1 tab PO DAILY [facility] Last Admin: 04/29/17 11:38 Dose: 1 tab Ondansetron HCl (Zofran Inj) 4 mg IVP Q4 PRN PRN Reason: Nausea/Vomiting Last Admin: 04/24/17 11:20 Dose: 4 mg Pantoprazole Sodium (Protonix Ec Tab) 40 mg PO DAILY [facility] Last Admin: 04/29/17 11:38 Dose: 40 mg Potassium Chloride (K-Dur 20 Meq Er Tab) 40 meq PO BRK [facility] Last Admin: 04/29/17 11:38 Dose: 40 meq Tramadol HCl (Ultram) 50 mg PO TID [facility] Last Admin: 04/29/17 14:16 Dose: 50 mg Zinc Sulfate (Zinc Sulfate 220 Mg Cap) 220 mg PO DAILY [facility] Last Admin: 04/29/17 11:38 Dose: 220 mg - Labs Labs: 04/27/17 06:45 04/27/17 06:45 PT 11.9 SECONDS (9.7-12.2) 04/13/17 06:28 INR 1.1 04/13/17 06:28 APTT 27 SECONDS (21-34) 04/13/17 06:28 - Constitutional Appears: Well - Head Exam Head Exam: ATRAUMATIC, NORMAL INSPECTION, NORMOCEPHALIC - Eye Exam Eye Exam: EOMI, Normal appearance, PERRL Pupil Exam: NORMAL ACCOMODATION, PERRL - ENT Exam ENT Exam: Mucous Membranes Moist, Normal Exam - Neck Exam Neck Exam: Full ROM, Normal Inspection. absent: Lymphadenopathy - Respiratory Exam Respiratory Exam: Decreased Breath Sounds - Cardiovascular Exam Cardiovascular Exam: REGULAR RHYTHM, +S1, +S2. absent: Murmur - GI/Abdominal Exam GI & Abdominal Exam: Soft, Normal Bowel Sounds. absent: Tenderness - Rectal Exam Rectal Exam: Deferred - Back Exam Back Exam: NORMAL INSPECTION - Neurological Exam Neurological Exam: Alert, Awake, CN II-XII Intact, Normal Gait, Oriented x3 - Psychiatric Exam Psychiatric exam: Normal Affect, Normal Mood - Skin Skin Exam: Dry, Intact, Normal Color, Warm Assessment and Plan (1) Colonic fistula Status: Acute (2) Displacement of Mckeon catheter Status: Acute - Assessment and Plan (Free Text) Plan: Status post rapid response his blood pressure was low patient is not eating sodium is 129 the last 1 hemoglobin is 10.1 patient has a next line patient is a big ulcer still colostomy discussed with the staff and surgical DrLay petit with the tigecycline patient's was given a fluid challenge blood pressure went up from 70s systolic to 121 continue same patient advised to eat the food continue current medications medications reviewed lab reviewed
[2017-04-30] MEDS: Sodium Chloride 0.9% 1,000 ML IV SCH ×2 (05:00→23:12)
[2017-04-30] MEDS: (Novolog) Insulin Aspart, Recombinant 100 u/ml 10 ml vial SC SCH ×3 (07:30→21:54)
[2017-04-30 08:10] LABS: BASO # 0.1 K/uL (0.0-0.2); BASO % 0.5 % (0.0-2.0); EOS # 0.1 K/uL (0.0-0.7); HEMATOCRIT 29.7 % (34.0-47.0); LYMPH # 1.9 K/uL (1.0-4.3); LYMPH % 17.1 % (20.0-40.0); MEAN CELL VOLUME 85.4 fL (81.0-99.0); MEAN CORPUSCULAR HEMOGLOBIN 27.9 pg (27.0-31.0); MEAN CORPUSCULAR HGB CONC 32.7 g/dL (33.0-37.0); MEAN PLATELET VOLUME 8.5 fL (7.2-11.7); MONO # 0.9 K/uL (0.0-0.8); MONO % 7.8 % (0.0-10.0); RED CELL DISTRIBUTION WIDTH 14.9 % (11.5-14.5)
[2017-04-30 08:20] LABS: CHLORIDE 105 mmol/L (98-107); POTASSIUM 3.5 mmol/L (3.6-5.2); SODIUM 132 mmol/L (132-148)
[2017-04-30 08:22] LABS: BILIRUBIN,TOTAL 0.5 mg/dL (0.2-1.3); CARBON DIOXIDE 21 mmol/L (22-30); GFR AFRICAN-AMERICAN > 60
[2017-04-30 08:23] LABS: ALB/GLOB RATIO 0.4 (1.0-2.1); ALKALINE PHOSPHATASE 229 U/L (38-126); ALT/SGPT 58 U/L (9-52); AST/SGOT 40 U/L (14-36); BLOOD UREA NITROGEN 9 mg/dL (7-17); CALCIUM 7.3 mg/dl (8.6-10.4); GLUCOSE,RANDOM 121 mg/dL (65-105); TOTAL PROTEIN 5.5 g/dL (6.3-8.3)
[2017-04-30] MEDS: Potassium Chloride 20 mEq ER Tab PO SCH (09:53)
[2017-04-30] MEDS: Lactobacillus Acidophilus 500 MU Cap PO SCH (09:53)
[2017-04-30] MEDS: Pantoprazole 40 mg EC Tab PO SCH (09:53)
[2017-04-30] MEDS: Magnesium Oxide 400 mg Tab UD PO SCH (09:53)
[2017-04-30] MEDS: Multiple Vitamins Tab PO SCH (09:53)
[2017-04-30] MEDS: Fluconazole IV 200mg/100 ml NS 100 ML IVPB SCH (10:00)
--- NOTE | 2017-04-30 10:16 | CP.PCM.PN ---
Subjective - Date & Time of Evaluation Date of Evaluation: 04/30/17 Time of Evaluation: 07:00 - Subjective Subjective: General Surgey Dr. Cabral Pt seen and examined @bedside. NAEO. pain controlled w/ medication. no fever, chills, nausea, vomiting. poor PO intake. Objective - Vital Signs/Intake and Output Vital Signs (last 24 hours): Temp Pulse Resp BP Pulse Ox 98.6 F 79 18 96/73 L 100 04/30/17 08:33 04/30/17 08:33 04/30/17 08:33 04/30/17 08:33 04/30/17 08:33 Intake and Output: 04/30/17 04/30/17 06:59 18:59 Intake Total 865 Output Total 250 Balance 615 Selected Entries 04/29/17 04/30/17 14:30 06:47 Output, 10 0 Drainage Amount [CHARITO] Output, 60 50 Drainage Amount [Left] nephrostomy Output, 200 200 Drainage Amount [Right] nephrostomy Output, drainage 100 0 Amount [ Urethral (Gonzalez )] - Medications Medications: Current Medications Acetaminophen (Tylenol 325mg Tab) 650 mg PO Q4 PRN PRN Reason: Fever >100.4 F Ascorbic Acid (Vitamin C 500 Mg Tab) [address] [facility] Last Admin: 04/30/17 09:53 Dose: 500 mg Diphenhydramine HCl (Benadryl) 25 mg IVP Q8 PRN PRN Reason: Itching / Pruritus Tigecycline 50 mg/ Sodium (Chloride) 100 mls @ 100 mls/hr IVPB Q12H [facility] Last Admin: 04/30/17 00:52 Dose: 100 mls/hr Fluconazole (Diflucan Iv 200 Mg/100 Ml Ns) 100 mls @ 100 mls/hr IVPB DAILY [facility] Last Admin: 04/29/17 11:37 Dose: 100 mls/hr Sodium Chloride (Sodium Chloride 0.9%) 1,000 mls @ 75 mls/hr IV .[id number] [facility] Last Admin: 04/30/17 05:00 Dose: Not Given Insulin Aspart (Novolog) 0 unit SC ACHS [facility] PRN Reason: Protocol Last Admin: 04/29/17 22:04 Dose: Not Given Lactobacillus Acidophilus (Bacid Acidophilus) [address] [facility] Last Admin: 04/30/17 09:53 Dose: 1 cap Magnesium Oxide (Mag-Ox) [address] [facility] Last Admin: 04/30/17 09:53 Dose: 400 mg Multivitamins (Hexavitamin) [address] [facility] Last Admin: 04/30/17 09:53 Dose: 1 tab Ondansetron HCl (Zofran Inj) 4 mg IVP Q4 PRN PRN Reason: Nausea/Vomiting Last Admin: 04/24/17 11:20 Dose: 4 mg Pantoprazole Sodium (Protonix Ec Tab) [address] [facility] Last Admin: 04/30/17 09:53 Dose: 40 mg Potassium Chloride (K-Dur 20 Meq Er Tab) [address] [facility] Last Admin: 04/30/17 09:53 Dose: 40 meq Tramadol HCl (Ultram) [address] [facility] Last Admin: 04/30/17 09:53 Dose: 50 mg Zinc Sulfate (Zinc Sulfate 220 Mg Cap) [address] [facility] Last Admin: 04/30/17 09:53 Dose: 220 mg - Labs Labs: 04/30/17 08:05 04/30/17 08:05 Microbiology 04/27/17 Unknown Urine,Catheterized Urine Culture - Final Pseudomonas Putida - Constitutional Appears: Non-toxic, No Acute Distress, Cachectic, Chronically Ill - Head Exam Head Exam: NORMAL INSPECTION - Eye Exam Eye Exam: Normal appearance - ENT Exam ENT Exam: Mucous Membranes Moist - Respiratory Exam Respiratory Exam: NORMAL BREATHING PATTERN. absent: Accessory Muscle Use, Respiratory Distress - Cardiovascular Exam Cardiovascular Exam: absent: Bradycardia, Tachycardia - GI/Abdominal Exam GI & Abdominal Exam: Soft, Tenderness (minial TTP brandt-incisional). absent: Distended, Guarding, Rigid, Rebound Additional comments: dressing c/d/i ileostomy w/ stool saad w/ scant output - Exam Additional comments: gonzalez w/ purulent drainage - Extremities Exam Extremities Exam: Normal Inspection - Back Exam Additional comments: b/l nephrostomy tubes - Neurological Exam Neurological Exam: Alert, Awake, Oriented x3 - Psychiatric Exam Psychiatric exam: Normal Affect, Normal Mood - Skin Skin Exam: Dry, Normal Color, Warm Assessment and Plan - Assessment and Plan (Free Text) Assessment: 61 y/o F POD#18 s/p ex-lap, small bowel resection w/ ileostomy, bladder repair, appendectomy - cont gonzalez flushes BID w/ 30cc NS - cont pain management - repeat Cx (+) Pseudomonas Putida - f/u w/ ID for Abx - Gonzalez to stay until removed by urology - encourage OOB to chair/Amb/IS use Pt discussed w/ Dr. Misha Desouza DO PGY2
[2017-04-30] MEDS ORDERED: Sodium Chloride 0.9% 500 ML IV ONE (12:27)
--- NOTE | 2017-04-30 14:29 | CP.PCM.PN ---
Subjective - Date & Time of Evaluation Date of Evaluation: 04/30/17 Time of Evaluation: 08:00 - Subjective Subjective: repeat urine c/s noted IV rx adjusted Objective - Vital Signs/Intake and Output Vital Signs (last 24 hours): Temp Pulse Resp BP Pulse Ox 97.7 F 110 H 18 88/60 L 95 04/30/17 12:00 04/30/17 12:00 04/30/17 12:00 04/30/17 12:00 04/30/17 12:00 Intake and Output: 04/30/17 04/30/17 06:59 18:59 Intake Total 865 Output Total 250 Balance 615 - Medications Medications: Current Medications Acetaminophen (Tylenol 325mg Tab) 650 mg PO Q4 PRN PRN Reason: Fever >100.4 F Ascorbic Acid (Vitamin C 500 Mg Tab) 500 mg PO DAILY [facility] Last Admin: 04/30/17 09:53 Dose: 500 mg Diphenhydramine HCl (Benadryl) 25 mg IVP Q8 PRN PRN Reason: Itching / Pruritus Tigecycline 50 mg/ Sodium (Chloride) 100 mls @ 100 mls/hr IVPB Q12H [facility] Last Admin: 04/30/17 13:01 Dose: 100 mls/hr Fluconazole (Diflucan Iv 200 Mg/100 Ml Ns) 100 mls @ 100 mls/hr IVPB DAILY [facility] Last Admin: 04/30/17 10:00 Dose: 100 mls/hr Insulin Aspart (Novolog) 0 unit SC ACHS [facility] PRN Reason: Protocol Last Admin: 04/30/17 07:30 Dose: Not Given Lactobacillus Acidophilus (Bacid Acidophilus) 1 cap PO DAILY [facility] Last Admin: 04/30/17 09:53 Dose: 1 cap Magnesium Oxide (Mag-Ox) 400 mg PO DAILY [facility] Last Admin: 04/30/17 09:53 Dose: 400 mg Metoclopramide HCl (Reglan) 10 mg IVP ACHS [facility] Multivitamins (Hexavitamin) 1 tab PO DAILY [facility] Last Admin: 04/30/17 09:53 Dose: 1 tab Pantoprazole Sodium (Protonix Ec Tab) 40 mg PO DAILY [facility] Last Admin: 04/30/17 09:53 Dose: 40 mg Potassium Chloride (K-Dur 20 Meq Er Tab) 40 meq PO BRK [facility] Last Admin: 04/30/17 09:53 Dose: 40 meq Tramadol HCl (Ultram) 50 mg PO TID [facility] Last Admin: 04/30/17 09:53 Dose: 50 mg Zinc Sulfate (Zinc Sulfate 220 Mg Cap) 220 mg PO DAILY [facility] Last Admin: 04/30/17 09:53 Dose: 220 mg - Labs Labs: 04/30/17 08:05 04/30/17 08:05 PT 11.9 SECONDS (9.7-12.2) 04/13/17 06:28 INR 1.1 04/13/17 06:28 APTT 27 SECONDS (21-34) 04/13/17 06:28 - Constitutional Appears: Non-toxic, Cachectic, Chronically Ill - Head Exam Head Exam: NORMOCEPHALIC - Eye Exam Eye Exam: PERRL. absent: Scleral icterus - ENT Exam ENT Exam: Mucous Membranes Dry - Neck Exam Neck Exam: absent: Lymphadenopathy - Respiratory Exam Respiratory Exam: Decreased Breath Sounds - Cardiovascular Exam Cardiovascular Exam: REGULAR RHYTHM - GI/Abdominal Exam GI & Abdominal Exam: Distended - Rectal Exam Rectal Exam: Deferred - Exam Exam: NORMAL INSPECTION Assessment and Plan (1) Colonic fistula Status: Acute (2) Displacement of Mckeon catheter Status: Acute - Assessment and Plan (Free Text) Assessment: 61 y/o F POD#18 s/p ex-lap, small bowel resection w/ ileostomy, bladder repair, appendectomy - repeat Cx (+) Pseudomonas Putida add Merrem
--- NOTE | 2017-04-30 17:12 | CP.PCM.PN ---
Subjective - Date & Time of Evaluation Date of Evaluation: 04/30/17 Time of Evaluation: 09:20 - Subjective Subjective: clinically same Objective - Vital Signs/Intake and Output Vital Signs (last 24 hours): Temp Pulse Resp BP Pulse Ox 97.7 F 95 H 20 95/65 L 99 04/30/17 12:00 04/30/17 13:00 04/30/17 13:00 04/30/17 13:00 04/30/17 13:00 Intake and Output: 04/30/17 04/30/17 06:59 18:59 Intake Total 865 1680 Output Total 250 500 Balance 615 1180 - Medications Medications: Current Medications Acetaminophen (Tylenol 325mg Tab) 650 mg PO Q4 PRN PRN Reason: Fever >100.4 F Ascorbic Acid (Vitamin C 500 Mg Tab) 500 mg PO DAILY [facility] Last Admin: 04/30/17 09:53 Dose: 500 mg Diphenhydramine HCl (Benadryl) 25 mg IVP Q8 PRN PRN Reason: Itching / Pruritus Fluconazole (Diflucan Iv 200 Mg/100 Ml Ns) 100 mls @ 100 mls/hr IVPB DAILY [facility] Last Admin: 04/30/17 10:00 Dose: 100 mls/hr Meropenem 500 mg/ Sodium (Chloride) 100 mls @ 100 mls/hr IVPB Q8H [facility] Insulin Aspart (Novolog) 0 unit SC ACHS [facility] PRN Reason: Protocol Last Admin: 04/30/17 07:30 Dose: Not Given Lactobacillus Acidophilus (Bacid Acidophilus) 1 cap PO DAILY [facility] Last Admin: 04/30/17 09:53 Dose: 1 cap Magnesium Oxide (Mag-Ox) 400 mg PO DAILY [facility] Last Admin: 04/30/17 09:53 Dose: 400 mg Metoclopramide HCl (Reglan) 10 mg IVP ACHS [facility] Multivitamins (Hexavitamin) 1 tab PO DAILY [facility] Last Admin: 04/30/17 09:53 Dose: 1 tab Pantoprazole Sodium (Protonix Ec Tab) 40 mg PO DAILY [facility] Last Admin: 04/30/17 09:53 Dose: 40 mg Potassium Chloride (K-Dur 20 Meq Er Tab) 40 meq PO BRK [facility] Last Admin: 04/30/17 09:53 Dose: 40 meq Tramadol HCl (Ultram) 50 mg PO TID [facility] Last Admin: 04/30/17 09:53 Dose: 50 mg Zinc Sulfate (Zinc Sulfate 220 Mg Cap) 220 mg PO DAILY [facility] Last Admin: 04/30/17 09:53 Dose: 220 mg - Labs Labs: 04/30/17 08:05 04/30/17 08:05 PT 11.9 SECONDS (9.7-12.2) 04/13/17 06:28 INR 1.1 04/13/17 06:28 APTT 27 SECONDS (21-34) 04/13/17 06:28 - Constitutional Appears: Well - Head Exam Head Exam: ATRAUMATIC, NORMAL INSPECTION, NORMOCEPHALIC - Eye Exam Eye Exam: EOMI, Normal appearance, PERRL Pupil Exam: NORMAL ACCOMODATION, PERRL - ENT Exam ENT Exam: Mucous Membranes Moist, Normal Exam - Neck Exam Neck Exam: Full ROM, Normal Inspection. absent: Lymphadenopathy - Respiratory Exam Respiratory Exam: Decreased Breath Sounds - Cardiovascular Exam Cardiovascular Exam: REGULAR RHYTHM, +S1, +S2 - GI/Abdominal Exam GI & Abdominal Exam: Soft, Diminished Bowel Sounds - Rectal Exam Rectal Exam: Deferred - Back Exam Back Exam: NORMAL INSPECTION - Neurological Exam Neurological Exam: Alert, Awake, CN II-XII Intact, Normal Gait, Oriented x3 - Psychiatric Exam Psychiatric exam: Normal Affect, Normal Mood - Skin Skin Exam: Dry, Intact, Normal Color, Warm Assessment and Plan (1) Colonic fistula Status: Acute (2) Displacement of Mckeon catheter Status: Acute - Assessment and Plan (Free Text) Plan: Patient examined. Diffuse abdominal pain present. Continue broad-spectrum antibiotic. Continue insulin, other antidiabetic medications, antihypertensive medications and supportive care.
[2017-04-30] MEDS ORDERED: Potassium Chloride 20 mEq ER Tab PO STA (19:13)
[2017-04-30] MEDS: Meropenem 500 MG in Sodium Chloride 0.9% 100 ML IVPB SCH (21:03)
[2017-05-01] MEDS ORDERED: Sodium Chloride 0.9% 1,000 ML IV ONE (00:24)
[2017-05-01] MEDS: Meropenem 500 MG in Sodium Chloride 0.9% 100 ML IVPB SCH ×3 (00:34→17:00)
[2017-05-01] MEDS: (Novolog) Insulin Aspart, Recombinant 100 u/ml 10 ml vial SC SCH ×4 (08:18→23:00)
[2017-05-01] MEDS: Multiple Vitamins Tab PO SCH (11:32)
[2017-05-01] MEDS: Magnesium Oxide 400 mg Tab UD PO SCH (11:32)
[2017-05-01] MEDS: Fluconazole IV 200mg/100 ml NS 100 ML IVPB SCH (11:38)
[2017-05-01] MEDS: Lactobacillus Acidophilus 500 MU Cap PO SCH (11:38)
[2017-05-01] MEDS: Potassium Chloride 20 mEq ER Tab PO SCH (12:55)
[2017-05-01] MEDS ORDERED: Oxycodone/Acetaminophen 5/325 mg Tab PO ONE (18:00)
--- NOTE | 2017-05-01 19:00 | CP.PCM.PN ---
Subjective - Date & Time of Evaluation Date of Evaluation: 05/01/17 Time of Evaluation: 10:40 - Subjective Subjective: clinically same Objective - Vital Signs/Intake and Output Vital Signs (last 24 hours): Temp Pulse Resp BP Pulse Ox 97.6 F 100 H 18 117/75 100 05/01/17 15:47 05/01/17 15:47 05/01/17 15:47 05/01/17 15:47 05/01/17 15:47 Intake and Output: 05/01/17 05/01/17 06:59 18:59 Intake Total 1740 200 Output Total 830 430 Balance 910 -230 - Medications Medications: Current Medications Acetaminophen (Tylenol 325mg Tab) 650 mg PO Q4 PRN PRN Reason: Fever >100.4 F Alprazolam (Xanax) 0.25 mg PO ONCE [facility] Stop: 05/09/17 21:01 Ascorbic Acid (Vitamin C 500 Mg Tab) 500 mg PO DAILY [facility] Last Admin: 05/01/17 11:32 Dose: 500 mg Diphenhydramine HCl (Benadryl) 25 mg IVP Q8 PRN PRN Reason: Itching / Pruritus Fluconazole (Diflucan Iv 200 Mg/100 Ml Ns) 100 mls @ 100 mls/hr IVPB DAILY [facility] Last Admin: 05/01/17 11:38 Dose: 100 mls/hr Meropenem 500 mg/ Sodium (Chloride) 100 mls @ 100 mls/hr IVPB Q8H [facility] Last Admin: 05/01/17 17:00 Dose: 100 mls/hr Sodium Chloride (Sodium Chloride 0.9%) 1,000 mls @ 75 mls/hr IV .[id number] [facility] Insulin Aspart (Novolog) 0 unit SC ACHS [facility] PRN Reason: Protocol Last Admin: 05/01/17 12:49 Dose: 4 unit Lactobacillus Acidophilus (Bacid Acidophilus) 1 cap PO DAILY [facility] Last Admin: 05/01/17 11:38 Dose: Not Given Loperamide HCl (Imodium) 2 mg PO QID PRN PRN Reason: Diarrhea Magnesium Oxide (Mag-Ox) 400 mg PO DAILY [facility] Last Admin: 05/01/17 11:32 Dose: 400 mg Metoclopramide HCl (Reglan) 10 mg IVP ACHS [facility] Last Admin: 05/01/17 17:16 Dose: 10 mg Multivitamins (Hexavitamin) 1 tab PO DAILY [facility] Last Admin: 05/01/17 11:32 Dose: 1 tab Oxycodone/Acetaminophen (Percocet 5/325 Mg Tab) 2 tab PO Q6H [facility] Stop: 05/04/17 23:31 Pantoprazole Sodium (Protonix Ec Tab) 40 mg PO DAILY [facility] Last Admin: 04/30/17 09:53 Dose: 40 mg Petrolatum (Desitin Original) 0 gm TOP TID PRN PRN Reason: Rash Potassium Chloride (K-Dur 20 Meq Er Tab) 40 meq PO DAILY [facility] Last Admin: 05/01/17 12:55 Dose: 40 meq Zinc Sulfate (Zinc Sulfate 220 Mg Cap) 220 mg PO DAILY [facility] Last Admin: 04/30/17 09:53 Dose: 220 mg - Labs Labs: 04/30/17 08:05 04/30/17 08:05 PT 11.9 SECONDS (9.7-12.2) 04/13/17 06:28 INR 1.1 04/13/17 06:28 APTT 27 SECONDS (21-34) 04/13/17 06:28 - Constitutional Appears: Well - Head Exam Head Exam: ATRAUMATIC, NORMAL INSPECTION, NORMOCEPHALIC - Eye Exam Eye Exam: EOMI, Normal appearance, PERRL Pupil Exam: NORMAL ACCOMODATION, PERRL - ENT Exam ENT Exam: Mucous Membranes Moist, Normal Exam - Neck Exam Neck Exam: Full ROM, Normal Inspection. absent: Lymphadenopathy - Respiratory Exam Respiratory Exam: Decreased Breath Sounds - Cardiovascular Exam Cardiovascular Exam: REGULAR RHYTHM, +S1, +S2 - GI/Abdominal Exam GI & Abdominal Exam: Soft, Diminished Bowel Sounds - Rectal Exam Rectal Exam: Deferred - Back Exam Back Exam: NORMAL INSPECTION - Neurological Exam Neurological Exam: Alert, Awake, CN II-XII Intact, Normal Gait, Oriented x3 - Psychiatric Exam Psychiatric exam: Normal Affect, Normal Mood - Skin Skin Exam: Dry, Intact, Normal Color, Warm Assessment and Plan (1) Colonic fistula Status: Acute (2) Displacement of Mckeon catheter Status: Acute - Assessment and Plan (Free Text) Plan: Repeat pelvic CT done. Slight decrease in size of vesicular abscess with surgical drain in situ. Enterocolitis with diverting ileostomy in the right lower quadrant. Postsurgical changes in abdominal wound with abdominal wall.
--- NOTE | 2017-05-01 19:03 | CP.PCM.PN ---
<Vikki Sims - Last Filed: 05/01/17 19:00> Subjective - Date & Time of Evaluation Date of Evaluation: 05/01/17 Time of Evaluation: 07:00 - Subjective Subjective: GENERAL SURGERY PROGRESS NOTE FOR DR. AUSTIN Patient seen and examined at bedside. She reports pain and burning at the ileostomy site. Wound care nurse Yasir saw patient and assisted with ileostomy due to stool leaking. Objective - Vital Signs/Intake and Output Vital Signs (last 24 hours): Temp Pulse Resp BP Pulse Ox 97.6 F 100 H 18 117/75 100 05/01/17 15:47 05/01/17 15:47 05/01/17 15:47 05/01/17 15:47 05/01/17 15:47 Intake and Output: 05/01/17 05/02/17 18:59 06:59 Intake Total 200 Output Total 430 Balance -230 - Medications Medications: Current Medications Acetaminophen (Tylenol 325mg Tab) 650 mg PO Q4 PRN PRN Reason: Fever >100.4 F Alprazolam (Xanax) 0.25 mg PO ONCE [facility] Stop: 05/09/17 21:01 Ascorbic Acid (Vitamin C 500 Mg Tab) 500 mg PO DAILY [facility] Last Admin: 05/01/17 11:32 Dose: 500 mg Diphenhydramine HCl (Benadryl) 25 mg IVP Q8 PRN PRN Reason: Itching / Pruritus Fluconazole (Diflucan Iv 200 Mg/100 Ml Ns) 100 mls @ 100 mls/hr IVPB DAILY [facility] Last Admin: 05/01/17 11:38 Dose: 100 mls/hr Meropenem 500 mg/ Sodium (Chloride) 100 mls @ 100 mls/hr IVPB Q8H [facility] Last Admin: 05/01/17 17:00 Dose: 100 mls/hr Sodium Chloride (Sodium Chloride 0.9%) 1,000 mls @ 75 mls/hr IV .[id number] [facility] Insulin Aspart (Novolog) 0 unit SC ACHS [facility] PRN Reason: Protocol Last Admin: 05/01/17 12:49 Dose: 4 unit Lactobacillus Acidophilus (Bacid Acidophilus) 1 cap PO DAILY [facility] Last Admin: 05/01/17 11:38 Dose: Not Given Loperamide HCl (Imodium) 2 mg PO QID PRN PRN Reason: Diarrhea Magnesium Oxide (Mag-Ox) 400 mg PO DAILY [facility] Last Admin: 05/01/17 11:32 Dose: 400 mg Metoclopramide HCl (Reglan) 10 mg IVP ACHS [facility] Last Admin: 05/01/17 17:16 Dose: 10 mg Multivitamins (Hexavitamin) 1 tab PO DAILY [facility] Last Admin: 05/01/17 11:32 Dose: 1 tab Oxycodone/Acetaminophen (Percocet 5/325 Mg Tab) 2 tab PO Q6H [facility] Stop: 05/04/17 23:31 Pantoprazole Sodium (Protonix Ec Tab) 40 mg PO DAILY [facility] Last Admin: 04/30/17 09:53 Dose: 40 mg Petrolatum (Desitin Original) 0 gm TOP TID PRN PRN Reason: Rash Potassium Chloride (K-Dur 20 Meq Er Tab) 40 meq PO DAILY [facility] Last Admin: 05/01/17 12:55 Dose: 40 meq Zinc Sulfate (Zinc Sulfate 220 Mg Cap) 220 mg PO DAILY [facility] Last Admin: 04/30/17 09:53 Dose: 220 mg - Labs Labs: 04/30/17 08:05 04/30/17 08:05 PT 11.9 SECONDS (9.7-12.2) 04/13/17 06:28 INR 1.1 04/13/17 06:28 APTT 27 SECONDS (21-34) 04/13/17 06:28 - Constitutional Appears: No Acute Distress, Cachectic, Chronically Ill - Head Exam Head Exam: ATRAUMATIC, NORMAL INSPECTION - Respiratory Exam Respiratory Exam: NORMAL BREATHING PATTERN. absent: Respiratory Distress - Cardiovascular Exam Cardiovascular Exam: +S1, +S2 - GI/Abdominal Exam GI & Abdominal Exam: Soft, Tenderness (mild tenderness around incision sites). 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 Gonzalez bag with purulent drainage - Back Exam Additional comments: Bilateral nephrostomy tubes - Neurological Exam Neurological Exam: Alert, Awake, Oriented x3 - Psychiatric Exam Psychiatric exam: Normal Affect, Normal Mood - Skin Skin Exam: Normal Color, Warm Assessment and Plan - Assessment and Plan (Free Text) Assessment: 61 y/o F POD#19 s/p ex-lap, small bowel resection w/ ileostomy, bladder repair, appendectomy - Cont gonzalez and fransisco flushes BID w/ 30cc NS - Pain regimen changed: 2 percocet q6 scheduled - Xanax at bedtime - PPN ordered for tomorrow due continued decrease in albumin - Loperimide ordered to decrease ileostomy output - Zinc oxide and Duoderm for ileostomy site - Continue Abx per ID - Gonzalez to stay until removed by urology - Encourage OOB to chair/Amb/IS use - Plan discussed with Dr. Misha Sims PGY-3 <Sumeet Austin - Last Filed: 05/02/17 17:00> Objective - Vital Signs/Intake and Output Vital Signs (last 24 hours): Temp Pulse Resp BP Pulse Ox 98.5 F 103 H 18 94/61 L 100 05/02/17 15:00 05/02/17 15:00 05/02/17 15:00 05/02/17 15:00 05/02/17 15:00 Intake and Output: 05/02/17 05/02/17 06:59 18:59 Intake Total 900 1300 Output Total 910 1160 Balance -10 140 - Medications Medications: Current Medications Acetaminophen (Tylenol 325mg Tab) 650 mg PO Q4 PRN PRN Reason: Fever >100.4 F Alprazolam (Xanax) 0.25 mg PO ONCE [facility] Stop: 05/09/17 21:01 Last Admin: 05/01/17 22:58 Dose: 0.25 mg Ascorbic Acid (Vitamin C 500 Mg Tab) 500 mg PO DAILY [facility] Last Admin: 05/02/17 09:09 Dose: 500 mg Diphenhydramine HCl (Benadryl) 25 mg IVP Q8 PRN PRN Reason: Itching / Pruritus Fluconazole (Diflucan Iv 200 Mg/100 Ml Ns) 100 mls @ 100 mls/hr IVPB DAILY [facility] Last Admin: 05/02/17 09:10 Dose: 100 mls/hr Meropenem 500 mg/ Sodium (Chloride) 100 mls @ 100 mls/hr IVPB Q8H [facility] Last Admin: 05/02/17 16:15 Dose: 100 mls/hr Sodium Chloride (Sodium Chloride 0.9%) 1,000 mls @ 75 mls/hr IV .[id number] [facility] Last Admin: 05/02/17 08:53 Dose: Not Given Multivitamins/Vitamin C 10 ml/ (Amino Acids) 1,010 mls @ 83 mls/hr IV .[id number] [facility] Stop: 05/03/17 05:59 Amino Acids (Clinimix 4.25/5 % "E" (1000 Ml)) 1,000 mls @ 83 mls/hr IV .Q12H3M [facility] Stop: 05/03/17 17:59 Fat Emulsion Intravenous (Intralipid 20%) 250 mls @ 42 mls/hr IV ONCE ONE Stop: 05/02/17 23:57 Insulin Aspart (Novolog) 0 unit SC ACHS [facility] PRN Reason: Protocol Last Admin: 05/02/17 12:32 Dose: 4 unit Lactobacillus Acidophilus (Bacid Acidophilus) 1 cap PO DAILY [facility] Last Admin: 05/02/17 09:00 Dose: 1 cap Loperamide HCl (Imodium) 2 mg PO QID PRN PRN Reason: Diarrhea Last Admin: 05/01/17 22:58 Dose: 2 mg Magnesium Oxide (Mag-Ox) 400 mg PO DAILY [facility] Last Admin: 05/02/17 09:09 Dose: 400 mg Metoclopramide HCl (Reglan) 10 mg IVP ACHS [facility] Last Admin: 05/02/17 12:31 Dose: 10 mg Multivitamins (Hexavitamin) 1 tab PO DAILY [facility] Last Admin: 05/02/17 09:09 Dose: 1 tab Oxycodone/Acetaminophen (Percocet 5/325 Mg Tab) 1 tab PO Q6H [facility] Stop: 05/04/17 23:31 Last Admin: 05/02/17 12:32 Dose: Not Given Pantoprazole Sodium (Protonix Ec Tab) 40 mg PO DAILY [facility] Last Admin: 05/02/17 09:08 Dose: 40 mg Petrolatum (Desitin Original) 0 gm TOP TID PRN PRN Reason: Rash Potassium Chloride (K-Dur 20 Meq Er Tab) 40 meq PO DAILY [facility] Last Admin: 05/02/17 09:09 Dose: 40 meq Zinc Sulfate (Zinc Sulfate 220 Mg Cap) 220 mg PO DAILY [facility] Last Admin: 05/02/17 09:09 Dose: 220 mg - Labs Labs: 04/30/17 08:05 04/30/17 08:05 PT 11.9 SECONDS (9.7-12.2) 04/13/17 06:28 INR 1.1 04/13/17 06:28 APTT 27 SECONDS (21-34) 04/13/17 06:28 Attending/Attestation - Attestation I have personally seen and examined this patient.: Yes I have fully participated in the care of the patient.: Yes I have reviewed all pertinent clinical information, including history, physical exam and plan: Yes Notes (Text): 05/02/17 16:59 Pt is seen and examined at bedside Agree with above note and assessment Pt has severe malnutrition start PPN, High protein diet Ileostomy care c/w current mx Plan d.w primary team.
[2017-05-01] MEDS: Sodium Chloride 0.9% 1,000 ML IV SCH (19:43)
[2017-05-01] MEDS ORDERED: Oxycodone/Acetaminophen 5/325 mg Tab PO SCH (23:30)
[2017-05-01] MEDS: Oxycodone/Acetaminophen 5/325 mg Tab PO SCH (23:45)
--- NOTE | 2017-05-02 07:23 | PCM.URO ---
Urology Progress Note - Subjective Abdominal Pain: Yes Flank Pain: No Nausea: No Voiding Well: No Hematuria: No Chest Pain: No Fever & Chills: No - Objective Lab Studies: Reviewed Lab Results Last 24 Hours: Laboratory Results - last 24 hr 05/01/17 05/01/17 05/01/17 11:53 16:30 20:58 POC Glucose (mg/dL) 217 H 101 243 H Intake & Output: Intake & Output 05/01/17 05/02/17 05/02/17 18:59 06:59 18:59 Intake Total 200 Output Total 430 370 Balance -230 -370 Intake: Oral 200 Output: Drainage 430 320 CHARITO 10 20 Left 220 100 Right 200 200 Urine 50 Urethral (Mckeon) 50 Other: # Bowel Movements 4 Vital Signs: Vital Signs - 24 hr 05/01/17 05/01/17 05/01/17 07:55 15:47 20:45 Temperature 98.1 F 97.6 F 98 F Pulse Rate 95 H 100 H 88 Respiratory 20 18 20 Rate Blood Pressure 98/64 L 117/75 89/60 L O2 Sat by Pulse 95 100 98 Oximetry 05/01/17 05/01/17 22:30 23:30 Temperature 97.8 F Pulse Rate 95 H Respiratory 20 Rate Blood Pressure 98/60 L 92/61 L O2 Sat by Pulse 100 Oximetry - Physical Exam Abdominal Exam: Soft, Non-Distended (ileostomy functioning, leaking). absent: Non-Tender Back: No CVA Tenderness Urinary Catheter Draining Well: Yes (small amount, turbid) - Plan Wound Care: Yes Catheter Care: Yes - Date & Time of Note Date: 05/01/17 Time: 10:30
[2017-05-02] MEDS: Meropenem 500 MG in Sodium Chloride 0.9% 100 ML IVPB SCH ×2 (08:49→16:15)
[2017-05-02] MEDS: (Novolog) Insulin Aspart, Recombinant 100 u/ml 10 ml vial SC SCH ×4 (08:50→22:23)
[2017-05-02] MEDS: Sodium Chloride 0.9% 1,000 ML IV SCH (08:53)
[2017-05-02] MEDS: Lactobacillus Acidophilus 500 MU Cap PO SCH (09:00)
[2017-05-02] MEDS: Pantoprazole 40 mg EC Tab PO SCH (09:08)
[2017-05-02] MEDS: Potassium Chloride 20 mEq ER Tab PO SCH (09:09)
[2017-05-02] MEDS: Multiple Vitamins Tab PO SCH (09:09)
[2017-05-02] MEDS: Magnesium Oxide 400 mg Tab UD PO SCH (09:09)
[2017-05-02] MEDS: Fluconazole IV 200mg/100 ml NS 100 ML IVPB SCH (09:10)
--- NOTE | 2017-05-02 11:19 | CP.PCM.PN ---
Addendum entered and electronically signed by Zari Desouza DO 05/02/17 15:21: Pt scheduled for OR tomorrow for wound debridement NPO after midnight except medications consent to be obtained Original Note: <Zari Desouza - Last Filed: 05/02/17 11:26> Subjective - Date & Time of Evaluation Date of Evaluation: 05/02/17 Time of Evaluation: 06:45 - Subjective Subjective: General Surgery Dr. Cabral Pt seen and examined @bedside. NAEO. c/o incisional pain. tolerating diet. Objective - Vital Signs/Intake and Output Vital Signs (last 24 hours): Temp Pulse Resp BP Pulse Ox 98.1 F 102 H 18 89/67 L 100 05/02/17 08:06 05/02/17 08:06 05/02/17 08:06 05/02/17 08:06 05/02/17 08:06 Intake and Output: 05/02/17 05/02/17 06:59 18:59 Output Total 370 Balance -370 - Medications Medications: Current Medications Acetaminophen (Tylenol 325mg Tab) 650 mg PO Q4 PRN PRN Reason: Fever >100.4 F Alprazolam (Xanax) 0.25 mg PO ONCE [facility] Stop: 05/09/17 21:01 Last Admin: 05/01/17 22:58 Dose: 0.25 mg Ascorbic Acid (Vitamin C 500 Mg Tab) 500 mg PO DAILY [facility] Last Admin: 05/02/17 09:09 Dose: 500 mg Diphenhydramine HCl (Benadryl) 25 mg IVP Q8 PRN PRN Reason: Itching / Pruritus Fluconazole (Diflucan Iv 200 Mg/100 Ml Ns) 100 mls @ 100 mls/hr IVPB DAILY [facility] Last Admin: 05/02/17 09:10 Dose: 100 mls/hr Meropenem 500 mg/ Sodium (Chloride) 100 mls @ 100 mls/hr IVPB Q8H [facility] Last Admin: 05/02/17 08:49 Dose: 100 mls/hr Sodium Chloride (Sodium Chloride 0.9%) 1,000 mls @ 75 mls/hr IV .[id number] [facility] Last Admin: 05/02/17 08:53 Dose: Not Given Multivitamins/Vitamin C 10 ml/ (Amino Acids) 1,010 mls @ 83 mls/hr IV .[id number] [facility] Stop: 05/03/17 05:59 Amino Acids (Clinimix 4.25/5 % "E" (1000 Ml)) 1,000 mls @ 83 mls/hr IV .Q12H3M [facility] Stop: 05/03/17 17:59 Fat Emulsion Intravenous (Intralipid 20%) 250 mls @ 42 mls/hr IV ONCE ONE Stop: 05/02/17 23:57 Insulin Aspart (Novolog) 0 unit SC ACHS [facility] PRN Reason: Protocol Last Admin: 05/02/17 08:50 Dose: 2 unit Lactobacillus Acidophilus (Bacid Acidophilus) 1 cap PO DAILY [facility] Last Admin: 05/02/17 09:00 Dose: 1 cap Loperamide HCl (Imodium) 2 mg PO QID PRN PRN Reason: Diarrhea Last Admin: 05/01/17 22:58 Dose: 2 mg Magnesium Oxide (Mag-Ox) 400 mg PO DAILY [facility] Last Admin: 05/02/17 09:09 Dose: 400 mg Metoclopramide HCl (Reglan) 10 mg IVP ACHS [facility] Last Admin: 05/02/17 08:49 Dose: 10 mg Multivitamins (Hexavitamin) 1 tab PO DAILY [facility] Last Admin: 05/02/17 09:09 Dose: 1 tab Oxycodone/Acetaminophen (Percocet 5/325 Mg Tab) 1 tab PO Q6H [facility] Stop: 05/04/17 23:31 Last Admin: 05/01/17 23:45 Dose: Not Given Pantoprazole Sodium (Protonix Ec Tab) 40 mg PO DAILY [facility] Last Admin: 05/02/17 09:08 Dose: 40 mg Petrolatum (Desitin Original) 0 gm TOP TID PRN PRN Reason: Rash Potassium Chloride (K-Dur 20 Meq Er Tab) 40 meq PO DAILY [facility] Last Admin: 05/02/17 09:09 Dose: 40 meq Zinc Sulfate (Zinc Sulfate 220 Mg Cap) 220 mg PO DAILY [facility] Last Admin: 05/02/17 09:09 Dose: 220 mg - Labs Labs: 04/30/17 08:05 04/30/17 08:05 PT 11.9 SECONDS (9.7-12.2) 04/13/17 06:28 INR 1.1 04/13/17 06:28 APTT 27 SECONDS (21-34) 04/13/17 06:28 - Constitutional Appears: No Acute Distress, Cachectic, Chronically Ill - Head Exam Head Exam: NORMAL INSPECTION - Eye Exam Eye Exam: Normal appearance - ENT Exam ENT Exam: Mucous Membranes Moist - Respiratory Exam Respiratory Exam: NORMAL BREATHING PATTERN. absent: Accessory Muscle Use, Respiratory Distress - Cardiovascular Exam Cardiovascular Exam: absent: Bradycardia, Tachycardia - GI/Abdominal Exam GI & Abdominal Exam: Soft, Tenderness (brandt-incisional TTP). absent: Distended , Guarding, Rigid, Rebound Additional comments: incision open and draining purulent fluid ostomy leaking stool over surrounding dressings saad in place. black dot outside abd wall - Exam Additional comments: gonzalez w/ less cloudy purulent drainage - Extremities Exam Extremities Exam: Normal Inspection Additional comments: redness present over R ASIS - Back Exam Additional comments: b/l nephrostomy tubes - Neurological Exam Neurological Exam: Alert, Awake, Oriented x3 - Psychiatric Exam Psychiatric exam: Normal Affect, Normal Mood - Skin Skin Exam: Dry, Normal Color, Warm Assessment and Plan - Assessment and Plan (Free Text) Assessment: 61 y/o F POD#20 s/p ex-lap, small bowel resection w/ ileostomy, bladder repair, appendectomy - Cont gonzalez and saad flushes BID w/ 30cc NS - cont current pain regimen - cont Xanax QHS - cont PPN - cont Loperimide - spoke to Wound Care nurseYasir - Zinc oxide and Duoderm for ileostomy site - cont Abx per ID - Gonzalez to stay until removed by urology - Encourage OOB to chair/Amb/IS use Pt discussed w/ Dr. Misha Desouza DO PGY2 <Sumeet Cabral - Last Filed: 05/02/17 17:05> Objective - Vital Signs/Intake and Output Vital Signs (last 24 hours): Temp Pulse Resp BP Pulse Ox 98.5 F 103 H 18 94/61 L 100 05/02/17 15:00 05/02/17 15:00 05/02/17 15:00 05/02/17 15:00 05/02/17 15:00 Intake and Output: 05/02/17 05/02/17 06:59 18:59 Intake Total 900 1300 Output Total 910 1160 Balance -10 140 - Medications Medications: Current Medications Acetaminophen (Tylenol 325mg Tab) 650 mg PO Q4 PRN PRN Reason: Fever >100.4 F Alprazolam (Xanax) 0.25 mg PO ONCE [facility] Stop: 05/09/17 21:01 Last Admin: 05/01/17 22:58 Dose: 0.25 mg Ascorbic Acid (Vitamin C 500 Mg Tab) 500 mg PO DAILY [facility] Last Admin: 05/02/17 09:09 Dose: 500 mg Diphenhydramine HCl (Benadryl) 25 mg IVP Q8 PRN PRN Reason: Itching / Pruritus Fluconazole (Diflucan Iv 200 Mg/100 Ml Ns) 100 mls @ 100 mls/hr IVPB DAILY [facility] Last Admin: 05/02/17 09:10 Dose: 100 mls/hr Meropenem 500 mg/ Sodium (Chloride) 100 mls @ 100 mls/hr IVPB Q8H [facility] Last Admin: 05/02/17 16:15 Dose: 100 mls/hr Sodium Chloride (Sodium Chloride 0.9%) 1,000 mls @ 75 mls/hr IV .[id number] [facility] Last Admin: 05/02/17 08:53 Dose: Not Given Multivitamins/Vitamin C 10 ml/ (Amino Acids) 1,010 mls @ 83 mls/hr IV .[id number] [facility] Stop: 05/03/17 05:59 Amino Acids (Clinimix 4.25/5 % "E" (1000 Ml)) 1,000 mls @ 83 mls/hr IV .Q12H3M [facility] Stop: 05/03/17 17:59 Fat Emulsion Intravenous (Intralipid 20%) 250 mls @ 42 mls/hr IV ONCE ONE Stop: 05/02/17 23:57 Insulin Aspart (Novolog) 0 unit SC ACHS [facility] PRN Reason: Protocol Last Admin: 05/02/17 12:32 Dose: 4 unit Lactobacillus Acidophilus (Bacid Acidophilus) 1 cap PO DAILY [facility] Last Admin: 05/02/17 09:00 Dose: 1 cap Loperamide HCl (Imodium) 2 mg PO QID PRN PRN Reason: Diarrhea Last Admin: 05/01/17 22:58 Dose: 2 mg Magnesium Oxide (Mag-Ox) 400 mg PO DAILY [facility] Last Admin: 05/02/17 09:09 Dose: 400 mg Metoclopramide HCl (Reglan) 10 mg IVP ACHS [facility] Last Admin: 05/02/17 12:31 Dose: 10 mg Multivitamins (Hexavitamin) 1 tab PO DAILY [facility] Last Admin: 05/02/17 09:09 Dose: 1 tab Oxycodone/Acetaminophen (Percocet 5/325 Mg Tab) 1 tab PO Q6H [facility] Stop: 05/04/17 23:31 Last Admin: 05/02/17 12:32 Dose: Not Given Pantoprazole Sodium (Protonix Ec Tab) 40 mg PO DAILY [facility] Last Admin: 05/02/17 09:08 Dose: 40 mg Petrolatum (Desitin Original) 0 gm TOP TID PRN PRN Reason: Rash Potassium Chloride (K-Dur 20 Meq Er Tab) 40 meq PO DAILY [facility] Last Admin: 05/02/17 09:09 Dose: 40 meq Zinc Sulfate (Zinc Sulfate 220 Mg Cap) 220 mg PO DAILY [facility] Last Admin: 05/02/17 09:09 Dose: 220 mg - Labs Labs: 04/30/17 08:05 04/30/17 08:05 PT 11.9 SECONDS (9.7-12.2) 04/13/17 06:28 INR 1.1 04/13/17 06:28 APTT 27 SECONDS (21-34) 04/13/17 06:28 Attending/Attestation - Attestation I have personally seen and examined this patient.: Yes I have fully participated in the care of the patient.: Yes I have reviewed all pertinent clinical information, including history, physical exam and plan: Yes Notes (Text): 05/02/17 17:04 Pt is seen and examined at bedside Agree with above note and assessment Pt has severe excoriation surrounding ileostomy OR for wound debridement consent Plan d.w pt in detail NPO, IVF c/w current mx.
[2017-05-02] MEDS: Oxycodone/Acetaminophen 5/325 mg Tab PO SCH ×3 (12:32→21:15)
[2017-05-02] MEDS ORDERED: Fat Emulsion 20% IV 250 ML IV ONE (18:00)
[2017-05-02] MEDS ORDERED: PPN#1 IV SCH (18:00)
--- NOTE | 2017-05-02 18:41 | CP.PCM.PN ---
Subjective - Date & Time of Evaluation Date of Evaluation: 05/02/17 Time of Evaluation: 10:20 - Subjective Subjective: clinically same Objective - Vital Signs/Intake and Output Vital Signs (last 24 hours): Temp Pulse Resp BP Pulse Ox 98.5 F 103 H 18 94/61 L 100 05/02/17 15:00 05/02/17 15:00 05/02/17 15:00 05/02/17 15:00 05/02/17 15:00 Intake and Output: 05/02/17 05/02/17 06:59 18:59 Intake Total 900 1300 Output Total 910 1160 Balance -10 140 - Medications Medications: Current Medications Acetaminophen (Tylenol 325mg Tab) 650 mg PO Q4 PRN PRN Reason: Fever >100.4 F Alprazolam (Xanax) 0.25 mg PO ONCE [facility] Stop: 05/09/17 21:01 Last Admin: 05/01/17 22:58 Dose: 0.25 mg Ascorbic Acid (Vitamin C 500 Mg Tab) 500 mg PO DAILY [facility] Last Admin: 05/02/17 09:09 Dose: 500 mg Diphenhydramine HCl (Benadryl) 25 mg IVP Q8 PRN PRN Reason: Itching / Pruritus Fluconazole (Diflucan Iv 200 Mg/100 Ml Ns) 100 mls @ 100 mls/hr IVPB DAILY [facility] Last Admin: 05/02/17 09:10 Dose: 100 mls/hr Meropenem 500 mg/ Sodium (Chloride) 100 mls @ 100 mls/hr IVPB Q8H [facility] Last Admin: 05/02/17 16:15 Dose: 100 mls/hr Sodium Chloride (Sodium Chloride 0.9%) 1,000 mls @ 75 mls/hr IV .[id number] [facility] Last Admin: 05/02/17 08:53 Dose: Not Given Multivitamins/Vitamin C 10 ml/ (Amino Acids) 1,010 mls @ 83 mls/hr IV .[id number] [facility] Stop: 05/03/17 05:59 Last Admin: 05/02/17 18:12 Dose: 83 mls/hr Amino Acids (Clinimix 4.25/5 % "E" (1000 Ml)) 1,000 mls @ 83 mls/hr IV .Q12H3M [facility] Stop: 05/03/17 17:59 Fat Emulsion Intravenous (Intralipid 20%) 250 mls @ 42 mls/hr IV ONCE ONE Stop: 05/02/17 23:57 Insulin Aspart (Novolog) 0 unit SC ACHS [facility] PRN Reason: Protocol Last Admin: 05/02/17 17:50 Dose: Not Given Lactobacillus Acidophilus (Bacid Acidophilus) 1 cap PO DAILY [facility] Last Admin: 05/02/17 09:00 Dose: 1 cap Loperamide HCl (Imodium) 2 mg PO QID PRN PRN Reason: Diarrhea Last Admin: 05/01/17 22:58 Dose: 2 mg Magnesium Oxide (Mag-Ox) 400 mg PO DAILY [facility] Last Admin: 05/02/17 09:09 Dose: 400 mg Metoclopramide HCl (Reglan) 10 mg IVP ACHS [facility] Last Admin: 05/02/17 17:46 Dose: 10 mg Multivitamins (Hexavitamin) 1 tab PO DAILY [facility] Last Admin: 05/02/17 09:09 Dose: 1 tab Oxycodone/Acetaminophen (Percocet 5/325 Mg Tab) 1 tab PO Q6H [facility] Stop: 05/04/17 23:31 Last Admin: 05/02/17 17:47 Dose: 1 tab Pantoprazole Sodium (Protonix Ec Tab) 40 mg PO DAILY [facility] Last Admin: 05/02/17 09:08 Dose: 40 mg Petrolatum (Desitin Original) 0 gm TOP TID PRN PRN Reason: Rash Potassium Chloride (K-Dur 20 Meq Er Tab) 40 meq PO DAILY [facility] Last Admin: 05/02/17 09:09 Dose: 40 meq Zinc Sulfate (Zinc Sulfate 220 Mg Cap) 220 mg PO DAILY [facility] Last Admin: 05/02/17 09:09 Dose: 220 mg - Labs Labs: 04/30/17 08:05 04/30/17 08:05 PT 11.9 SECONDS (9.7-12.2) 04/13/17 06:28 INR 1.1 04/13/17 06:28 APTT 27 SECONDS (21-34) 04/13/17 06:28 - Constitutional Appears: Well - Head Exam Head Exam: ATRAUMATIC, NORMAL INSPECTION, NORMOCEPHALIC - Eye Exam Eye Exam: EOMI, Normal appearance, PERRL Pupil Exam: NORMAL ACCOMODATION, PERRL - ENT Exam ENT Exam: Mucous Membranes Moist, Normal Exam - Neck Exam Neck Exam: Full ROM, Normal Inspection. absent: Lymphadenopathy - Respiratory Exam Respiratory Exam: Decreased Breath Sounds - Cardiovascular Exam Cardiovascular Exam: REGULAR RHYTHM, +S1, +S2 - GI/Abdominal Exam GI & Abdominal Exam: Soft, Diminished Bowel Sounds - Rectal Exam Rectal Exam: Deferred - Back Exam Back Exam: NORMAL INSPECTION - Neurological Exam Neurological Exam: Alert, Awake, CN II-XII Intact, Normal Gait, Oriented x3 - Psychiatric Exam Psychiatric exam: Normal Affect, Normal Mood - Skin Skin Exam: Dry, Intact, Normal Color, Warm Assessment and Plan (1) Colonic fistula Status: Acute (2) Displacement of Mckeon catheter Status: Acute - Assessment and Plan (Free Text) Plan: Patient scheduled for OR tomorrow for debridement Patient examined. Diffuse abdominal pain present. Continue broad-spectrum antibiotic. Continue insulin, other antidiabetic medications, antihypertensive medications and supportive care.
[2017-05-03] MEDS: Meropenem 500 MG in Sodium Chloride 0.9% 100 ML IVPB SCH ×4 (00:50→17:00)
[2017-05-03] MEDS: Oxycodone/Acetaminophen 5/325 mg Tab PO SCH ×3 (04:51→18:00)
[2017-05-03] MEDS ORDERED: PPN #2 IV SCH (06:00)
[2017-05-03 07:29] LABS: BASO # 0.1 K/uL (0.0-0.2); BASO % 0.9 % (0.0-2.0); EOS # 0.2 K/uL (0.0-0.7); EOS % 4.2 % (0.0-4.0); HEMATOCRIT 25.2 % (34.0-47.0); LYMPH # 1.8 K/uL (1.0-4.3); MEAN CELL VOLUME 84.6 fL (81.0-99.0); MEAN CORPUSCULAR HEMOGLOBIN 27.7 pg (27.0-31.0); MEAN CORPUSCULAR HGB CONC 32.7 g/dL (33.0-37.0); MEAN PLATELET VOLUME 8.8 fL (7.2-11.7); MONO # 0.5 K/uL (0.0-0.8); MONO % 9.1 % (0.0-10.0); NRBC % 0.2 % (0.0-2.0); RED CELL DISTRIBUTION WIDTH 14.7 % (11.5-14.5)
[2017-05-03 07:32] LABS: WHITE BLOOD COUNT 5.6 K/uL (4.8-10.8)
[2017-05-03] MEDS: (Novolog) Insulin Aspart, Recombinant 100 u/ml 10 ml vial SC SCH ×4 (08:02→22:41)
[2017-05-03 08:04] LABS: CHLORIDE 103 mmol/L (98-107); SODIUM 128 mmol/L (132-148)
[2017-05-03 08:05] LABS: POTASSIUM 4.3 mmol/L (3.6-5.2)
[2017-05-03 08:06] LABS: GFR AFRICAN-AMERICAN > 60
[2017-05-03 08:07] LABS: ALB/GLOB RATIO 0.4 (1.0-2.1); ALKALINE PHOSPHATASE 305 U/L (38-126); ALT/SGPT 43 U/L (9-52); AST/SGOT 32 U/L (14-36); BILIRUBIN,TOTAL 0.5 mg/dL (0.2-1.3); BLOOD UREA NITROGEN 6 mg/dL (7-17); CALCIUM 7.4 mg/dl (8.6-10.4); CARBON DIOXIDE 21 mmol/L (22-30); GLUCOSE,RANDOM 163 mg/dL (65-105); TOTAL PROTEIN 5.2 g/dL (6.3-8.3)
[2017-05-03] MEDS: Lactobacillus Acidophilus 500 MU Cap PO SCH (10:28)
[2017-05-03] MEDS: Pantoprazole 40 mg EC Tab PO SCH (10:28)
[2017-05-03] MEDS: Potassium Chloride 20 mEq ER Tab PO SCH (10:28)
[2017-05-03] MEDS: Magnesium Oxide 400 mg Tab UD PO SCH (10:28)
[2017-05-03] MEDS: Multiple Vitamins Tab PO SCH (10:28)
[2017-05-03] MEDS: Sodium Chloride 0.9% 1,000 ML IV SCH (10:29)
[2017-05-03] MEDS: Fluconazole IV 200mg/100 ml NS 100 ML IVPB SCH (10:37)
[2017-05-03] MEDS ORDERED: Lactated Ringer's 1,000 ML IV ONE ×2 (13:55→16:35)
[2017-05-03] MEDS ORDERED: Propofol 10 mg/ml Inj (20 ML) ONE (14:02)
[2017-05-03] MEDS ORDERED: Bupivacaine-Epi 0.25%-1:200,000 PF Inj ONE (14:06)
[2017-05-03] MEDS ORDERED: Lidocaine 1% Inj (20ml) ONE (14:06)
--- NOTE | 2017-05-03 15:41 | PCM.SURG1 ---
Surgeon's Initial Post Op Note - Surgeon's Notes Surgeon: Misha Plate Finisher: Heather PGY3, Yue Hayes RN Woundcare Type of Anesthesia: General Endo Pre-Operative Diagnosis: Infected midline incision and brandt-stomal skin excoriation Operative Findings: excoriated skin, pus, non-healing midline incision Post-Operative Diagnosis: same Operation Performed: Debridement of midline incision w. wound vac placement. Ostomy care Specimen/Specimens Removed: cultures of wound and intra-abdominal fluid Estimated Blood Loss: EBL {In ML}: 0 Blood Products Given: N/A Drains Used: Wound Vac, Ostomy Device Post-Op Condition: Good Date of Surgery/Procedure: 05/03/17 Time of Surgery/Procedure: 15:41
--- NOTE | 2017-05-03 17:41 | CP.PCM.PN ---
Subjective - Date & Time of Evaluation Date of Evaluation: 05/03/17 Time of Evaluation: 07:00 - Subjective Subjective: iv rx in progress wbc trending down discussed with PMD Objective - Vital Signs/Intake and Output Vital Signs (last 24 hours): Temp Pulse Resp BP Pulse Ox 97.2 F L 111 H 20 95/60 L 100 05/03/17 16:40 05/03/17 16:40 05/03/17 16:40 05/03/17 16:40 05/03/17 16:40 Intake and Output: 05/03/17 05/03/17 06:59 18:59 Intake Total 1394 240 Output Total 1180 950 Balance 214 -710 - Medications Medications: Current Medications Alprazolam (Xanax) 0.25 mg PO ONCE [facility] Stop: 05/09/17 21:01 Last Admin: 05/01/17 22:58 Dose: 0.25 mg Ascorbic Acid (Vitamin C 500 Mg Tab) 500 mg PO DAILY [facility] Last Admin: 05/03/17 10:29 Dose: Not Given Diphenhydramine HCl (Benadryl) 25 mg IVP Q8 PRN PRN Reason: Itching / Pruritus Fluconazole (Diflucan Iv 200 Mg/100 Ml Ns) 100 mls @ 100 mls/hr IVPB DAILY [facility] Last Admin: 05/03/17 10:37 Dose: 100 mls/hr Meropenem 500 mg/ Sodium (Chloride) 100 mls @ 100 mls/hr IVPB Q8H [facility] Last Admin: 05/03/17 08:37 Dose: 100 mls/hr Sodium Chloride (Sodium Chloride 0.9%) 1,000 mls @ 75 mls/hr IV .[id number] [facility] Last Admin: 05/03/17 10:29 Dose: Not Given Amino Acids (Clinimix 4.25/5 % "E" (1000 Ml)) 1,000 mls @ 83 mls/hr IV .[id number] [facility] Stop: 05/03/17 17:59 Last Admin: 05/03/17 06:56 Dose: 83 mls/hr Multivitamins/Vitamin C 10 ml/ (Amino Acids) 1,010 mls @ 83 mls/hr IV .[id number] ONE Stop: 05/04/17 06:10 Parenteral Electrolytes 20 ml/ (Amino Acids) 1,020 mls @ 83 mls/hr IV .[id number] ONE Stop: 05/04/17 18:17 Insulin Aspart (Novolog) 0 unit SC ACHS [facility] PRN Reason: Protocol Last Admin: 05/03/17 17:26 Dose: Not Given Lactobacillus Acidophilus (Bacid Acidophilus) 1 cap PO DAILY [facility] Last Admin: 05/03/17 10:28 Dose: Not Given Loperamide HCl (Imodium) 2 mg PO QID PRN PRN Reason: Diarrhea Last Admin: 05/01/17 22:58 Dose: 2 mg Magnesium Oxide (Mag-Ox) 400 mg PO DAILY [facility] Last Admin: 05/03/17 10:28 Dose: Not Given Metoclopramide HCl (Reglan) 10 mg IVP ACHS [facility] Last Admin: 05/03/17 10:38 Dose: 10 mg Multivitamins (Hexavitamin) 1 tab PO DAILY [facility] Last Admin: 05/03/17 10:28 Dose: Not Given Oxycodone/Acetaminophen (Percocet 5/325 Mg Tab) 1 tab PO Q6H [facility] Stop: 05/04/17 23:31 Last Admin: 05/03/17 12:03 Dose: Not Given Pantoprazole Sodium (Protonix Ec Tab) 40 mg PO DAILY [facility] Last Admin: 05/03/17 10:28 Dose: Not Given Petrolatum (Desitin Original) 0 gm TOP TID PRN PRN Reason: Rash Potassium Chloride (K-Dur 20 Meq Er Tab) 40 meq PO DAILY [facility] Last Admin: 05/03/17 10:28 Dose: Not Given Zinc Sulfate (Zinc Sulfate 220 Mg Cap) 220 mg PO DAILY [facility] Last Admin: 05/03/17 10:29 Dose: Not Given - Labs Labs: 05/03/17 07:06 05/03/17 07:06 PT 11.9 SECONDS (9.7-12.2) 04/13/17 06:28 INR 1.1 04/13/17 06:28 APTT 27 SECONDS (21-34) 04/13/17 06:28 - Constitutional Appears: Cachectic - Head Exam Head Exam: NORMOCEPHALIC - Eye Exam Eye Exam: PERRL - ENT Exam ENT Exam: Mucous Membranes Dry - Neck Exam Neck Exam: absent: Lymphadenopathy - Respiratory Exam Respiratory Exam: Decreased Breath Sounds - Cardiovascular Exam Cardiovascular Exam: REGULAR RHYTHM - GI/Abdominal Exam GI & Abdominal Exam: Distended, Soft - Rectal Exam Rectal Exam: Deferred - Exam Exam: NORMAL INSPECTION - Extremities Exam Extremities Exam: absent: Pedal Edema Assessment and Plan (1) Colonic fistula Status: Acute (2) Displacement of Mckeon catheter Status: Acute
[2017-05-03] MEDS ORDERED: PPN IV ONE (18:00)
--- NOTE | 2017-05-03 19:59 | CP.PCM.PN ---
Subjective - Date & Time of Evaluation Date of Evaluation: 05/03/17 Time of Evaluation: 11:40 - Subjective Subjective: clinically same Objective - Vital Signs/Intake and Output Vital Signs (last 24 hours): Temp Pulse Resp BP Pulse Ox 97.2 F L 111 H 20 95/60 L 100 05/03/17 16:40 05/03/17 16:40 05/03/17 16:40 05/03/17 16:40 05/03/17 16:40 Intake and Output: 05/03/17 05/04/17 18:59 06:59 Intake Total 240 Output Total 950 Balance -710 - Medications Medications: Current Medications Alprazolam (Xanax) 0.25 mg PO ONCE [facility] Stop: 05/09/17 21:01 Last Admin: 05/01/17 22:58 Dose: 0.25 mg Ascorbic Acid (Vitamin C 500 Mg Tab) 500 mg PO DAILY [facility] Last Admin: 05/03/17 10:29 Dose: Not Given Diphenhydramine HCl (Benadryl) 25 mg IVP Q8 PRN PRN Reason: Itching / Pruritus Fluconazole (Diflucan Iv 200 Mg/100 Ml Ns) 100 mls @ 100 mls/hr IVPB DAILY [facility] Last Admin: 05/03/17 10:37 Dose: 100 mls/hr Meropenem 500 mg/ Sodium (Chloride) 100 mls @ 100 mls/hr IVPB Q8H [facility] Last Admin: 05/03/17 17:00 Dose: 100 mls/hr Sodium Chloride (Sodium Chloride 0.9%) 1,000 mls @ 75 mls/hr IV .[id number] [facility] Last Admin: 05/03/17 10:29 Dose: Not Given Multivitamins/Vitamin C 10 ml/ (Amino Acids) 1,010 mls @ 83 mls/hr IV .[id number] ONE Stop: 05/04/17 06:10 Last Admin: 05/03/17 18:18 Dose: 83 mls/hr Parenteral Electrolytes 20 ml/ (Amino Acids) 1,020 mls @ 83 mls/hr IV .[id number] ONE Stop: 05/04/17 18:17 Insulin Aspart (Novolog) 0 unit SC ACHS [facility] PRN Reason: Protocol Last Admin: 05/03/17 17:26 Dose: Not Given Lactobacillus Acidophilus (Bacid Acidophilus) 1 cap PO DAILY [facility] Last Admin: 05/03/17 10:28 Dose: Not Given Loperamide HCl (Imodium) 2 mg PO QID PRN PRN Reason: Diarrhea Last Admin: 05/01/17 22:58 Dose: 2 mg Magnesium Oxide (Mag-Ox) 400 mg PO DAILY [facility] Last Admin: 05/03/17 10:28 Dose: Not Given Metoclopramide HCl (Reglan) 10 mg IVP ACHS [facility] Last Admin: 05/03/17 17:30 Dose: 10 mg Multivitamins (Hexavitamin) 1 tab PO DAILY [facility] Last Admin: 05/03/17 10:28 Dose: Not Given Oxycodone/Acetaminophen (Percocet 5/325 Mg Tab) 1 tab PO Q6H [facility] Stop: 05/04/17 23:31 Last Admin: 05/03/17 18:00 Dose: Not Given Pantoprazole Sodium (Protonix Ec Tab) 40 mg PO DAILY [facility] Last Admin: 05/03/17 10:28 Dose: Not Given Petrolatum (Desitin Original) 0 gm TOP TID PRN PRN Reason: Rash Potassium Chloride (K-Dur 20 Meq Er Tab) 40 meq PO DAILY [facility] Last Admin: 05/03/17 10:28 Dose: Not Given Zinc Sulfate (Zinc Sulfate 220 Mg Cap) 220 mg PO DAILY [facility] Last Admin: 05/03/17 10:29 Dose: Not Given - Labs Labs: 05/03/17 07:06 05/03/17 07:06 PT 11.9 SECONDS (9.7-12.2) 04/13/17 06:28 INR 1.1 04/13/17 06:28 APTT 27 SECONDS (21-34) 04/13/17 06:28 - Constitutional Appears: Well - Head Exam Head Exam: ATRAUMATIC, NORMAL INSPECTION, NORMOCEPHALIC - Eye Exam Eye Exam: EOMI, Normal appearance, PERRL Pupil Exam: NORMAL ACCOMODATION, PERRL - ENT Exam ENT Exam: Mucous Membranes Moist, Normal Exam - Neck Exam Neck Exam: Full ROM, Normal Inspection. absent: Lymphadenopathy - Respiratory Exam Respiratory Exam: Decreased Breath Sounds - Cardiovascular Exam Cardiovascular Exam: REGULAR RHYTHM, +S1, +S2 - GI/Abdominal Exam GI & Abdominal Exam: Soft, Diminished Bowel Sounds - Rectal Exam Rectal Exam: Deferred - Back Exam Back Exam: NORMAL INSPECTION - Neurological Exam Neurological Exam: Alert, Awake, CN II-XII Intact, Normal Gait, Oriented x3 - Psychiatric Exam Psychiatric exam: Normal Affect, Normal Mood - Skin Skin Exam: Dry, Intact, Normal Color, Warm Assessment and Plan (1) Colonic fistula Status: Acute (2) Displacement of Mckeon catheter Status: Acute - Assessment and Plan (Free Text) Plan: Debridement of midline incision with wound VAC placement and Osteotomy care done under general anesthesia. Patient examined. Diffuse abdominal pain present. Continue broad-spectrum antibiotic. Continue insulin, other antidiabetic medications, antihypertensive medications and supportive care.
[2017-05-03] MEDS ORDERED: Sodium Chloride 0.9% 500 ML IV ONE (22:28)
[2017-05-04] MEDS: Oxycodone/Acetaminophen 5/325 mg Tab PO SCH ×2 (00:30→05:34)
[2017-05-04] MEDS: Meropenem 500 MG in Sodium Chloride 0.9% 100 ML IVPB SCH ×2 (01:00→07:52)
[2017-05-04] MEDS: PPN#4 IV ONE ×2 (06:00→14:21)
[2017-05-04 07:48] LABS: BASO % 0.3 % (0.0-2.0); EOS # 0.1 K/uL (0.0-0.7); EOS % 2.1 % (0.0-4.0); HEMATOCRIT 24.4 % (34.0-47.0); LYMPH # 1.3 K/uL (1.0-4.3); LYMPH % 27.1 % (20.0-40.0); MEAN CELL VOLUME 84.5 fL (81.0-99.0); MEAN CORPUSCULAR HEMOGLOBIN 28.5 pg (27.0-31.0); MEAN CORPUSCULAR HGB CONC 33.7 g/dL (33.0-37.0); MEAN PLATELET VOLUME 9.2 fL (7.2-11.7); MONO # 0.4 K/uL (0.0-0.8); NRBC % 0.1 % (0.0-2.0); RED CELL DISTRIBUTION WIDTH 14.8 % (11.5-14.5); WHITE BLOOD COUNT 4.8 K/uL (4.8-10.8)
[2017-05-04] MEDS: (Novolog) Insulin Aspart, Recombinant 100 u/ml 10 ml vial SC SCH ×4 (07:51→22:04)
[2017-05-04 08:01] LABS: CHLORIDE 99 mmol/L (98-107); POTASSIUM 4.1 mmol/L (3.6-5.2); SODIUM 127 mmol/L (132-148)
[2017-05-04 08:03] LABS: BLOOD UREA NITROGEN 7 mg/dL (7-17); CALCIUM 7.3 mg/dl (8.6-10.4); CARBON DIOXIDE 24 mmol/L (22-30); GFR AFRICAN-AMERICAN > 60; GLUCOSE,RANDOM 225 mg/dL (65-105)
[2017-05-04] MEDS ORDERED: Sodium Chloride 0.9% 1,000 ML IV ONE (09:15)
--- NOTE | 2017-05-04 09:46 | CP.PCM.PN ---
<Zari Desouza - Last Filed: 05/04/17 09:42> Subjective - Date & Time of Evaluation Date of Evaluation: 05/04/17 Time of Evaluation: 07:15 - Subjective Subjective: General Surgery Dr. Cabral Pt S&E @bedside. NAEO. pt has no complaints this AM. per nursing, there was some leaking of the ostomy around the gonzalez tube but no leaking for the wafer. pt tolerating diet. Objective - Vital Signs/Intake and Output Vital Signs (last 24 hours): Temp Pulse Resp BP Pulse Ox 98.2 F 120 H 22 84/50 L 94 L 05/04/17 08:16 05/04/17 09:05 05/04/17 09:05 05/04/17 09:05 05/04/17 08:16 Intake and Output: 05/04/17 05/04/17 06:59 18:59 Intake Total 1127.5 664 Output Total 1505 300 Balance -377.5 364 - Medications Medications: Current Medications Alprazolam (Xanax) 0.25 mg PO ONCE [facility] Stop: 05/09/17 21:01 Last Admin: 05/01/17 22:58 Dose: 0.25 mg Ascorbic Acid (Vitamin C 500 Mg Tab) 500 mg PO DAILY [facility] Last Admin: 05/03/17 10:29 Dose: Not Given Diphenhydramine HCl (Benadryl) 25 mg IVP Q8 PRN PRN Reason: Itching / Pruritus Fluconazole (Diflucan Iv 200 Mg/100 Ml Ns) 100 mls @ 100 mls/hr IVPB DAILY [facility] Last Admin: 05/03/17 10:37 Dose: 100 mls/hr Meropenem 500 mg/ Sodium (Chloride) 100 mls @ 100 mls/hr IVPB Q8H [facility] Last Admin: 05/04/17 07:52 Dose: 100 mls/hr Sodium Chloride (Sodium Chloride 0.9%) 1,000 mls @ 75 mls/hr IV .[id number] [facility] Last Admin: 05/03/17 10:29 Dose: Not Given Parenteral Electrolytes 20 ml/ (Amino Acids) 1,020 mls @ 83 mls/hr IV .[id number] [facility] Stop: 05/04/17 18:17 Last Admin: 05/04/17 06:00 Dose: Not Given Sodium Chloride (Sodium Chloride 0.9%) 1,000 mls @ 1,000 mls/hr IV .Q1H [facility] Stop: 05/04/17 10:14 Insulin Aspart (Novolog) 0 unit SC ACHS [facility] PRN Reason: Protocol Last Admin: 05/04/17 07:51 Dose: 6 unit Lactobacillus Acidophilus (Bacid Acidophilus) 1 cap PO DAILY [facility] Last Admin: 05/03/17 10:28 Dose: Not Given Loperamide HCl (Imodium) 2 mg PO QID PRN PRN Reason: Diarrhea Last Admin: 05/01/17 22:58 Dose: 2 mg Magnesium Oxide (Mag-Ox) 400 mg PO DAILY [facility] Last Admin: 05/03/17 10:28 Dose: Not Given Metoclopramide HCl (Reglan) 10 mg IVP ACHS [facility] Last Admin: 05/04/17 07:51 Dose: 10 mg Multivitamins (Hexavitamin) 1 tab PO DAILY [facility] Last Admin: 05/03/17 10:28 Dose: Not Given Oxycodone/Acetaminophen (Percocet 5/325 Mg Tab) 1 tab PO Q6H [facility] Stop: 05/04/17 23:31 Last Admin: 05/04/17 05:34 Dose: 1 tab Pantoprazole Sodium (Protonix Ec Tab) 40 mg PO DAILY [facility] Last Admin: 05/03/17 10:28 Dose: Not Given Petrolatum (Desitin Original) 0 gm TOP TID PRN PRN Reason: Rash Potassium Chloride (K-Dur 20 Meq Er Tab) 40 meq PO DAILY [facility] Last Admin: 05/03/17 10:28 Dose: Not Given Zinc Sulfate (Zinc Sulfate 220 Mg Cap) 220 mg PO DAILY [facility] Last Admin: 05/03/17 10:29 Dose: Not Given - Labs Labs: 05/04/17 07:16 05/04/17 07:16 PT 11.9 SECONDS (9.7-12.2) 04/13/17 06:28 INR 1.1 04/13/17 06:28 APTT 27 SECONDS (21-34) 04/13/17 06:28 - Constitutional Appears: No Acute Distress, Older Than Stated Age, Cachectic, Chronically Ill - Head Exam Head Exam: NORMAL INSPECTION - Eye Exam Eye Exam: Normal appearance - ENT Exam ENT Exam: Mucous Membranes Moist - Respiratory Exam Respiratory Exam: NORMAL BREATHING PATTERN. absent: Accessory Muscle Use, Respiratory Distress - Cardiovascular Exam Cardiovascular Exam: Tachycardia - GI/Abdominal Exam GI & Abdominal Exam: Soft, Tenderness (brandt-incisional TTP). absent: Distended , Guarding, Rebound Additional comments: wound vac in place w/ good seal saad in LLQ ostomy in RLQ, stool draining into gonzalez placed w/in stoma - Extremities Exam Extremities Exam: Normal Inspection - Back Exam Additional comments: b/l nephrostomy tubes - Neurological Exam Neurological Exam: Alert, Awake, Oriented x3 - Psychiatric Exam Psychiatric exam: Normal Affect, Normal Mood - Skin Skin Exam: Dry, Normal Color, Warm Assessment and Plan - Assessment and Plan (Free Text) Assessment: 61 y/o F POD#1 s/p debridement of midline incision w/ wound vac placement and ostomy care; POD#22 s/p ex-lap, small bowel resection w/ ileostomy, bladder repair, appendectomy - Do not remove ostomy bag - stool emptied via gonzalez - wound vac changes Q5days - Cont gonzalez and saad flushes BID w/ 30cc NS - cont current pain regimen - cont Xanax QHS - cont PPN - cont Loperimide - f/u wound Cx - cont Abx per ID - Encourage OOB to chair/Amb/IS use Pt discussed w/ Dr. Misha Desouza DO PGY2 <Sumeet Cabral - Last Filed: 05/07/17 17:15> Objective - Vital Signs/Intake and Output Vital Signs (last 24 hours): Temp Pulse Resp BP Pulse Ox 98.1 F 106 H 20 98/59 L 99 05/07/17 16:00 05/07/17 16:00 05/07/17 16:00 05/07/17 16:00 05/07/17 16:00 Intake and Output: 05/07/17 05/07/17 06:59 18:59 Intake Total 858 581 Output Total 795 Balance 63 581 - Medications Medications: Current Medications Acetaminophen (Tylenol 325mg Tab) 650 mg PO Q6 PRN PRN Reason: Pain, Mild (1-3) Last Admin: 05/04/17 22:10 Dose: 650 mg Alprazolam (Xanax) 0.25 mg PO ONCE [facility] Stop: 05/09/17 21:01 Last Admin: 05/01/17 22:58 Dose: 0.25 mg Ascorbic Acid (Vitamin C 500 Mg Tab) 500 mg PO DAILY [facility] Last Admin: 05/07/17 10:17 Dose: 500 mg Enoxaparin Sodium (Lovenox) 40 mg SC Q12 [facility] Last Admin: 05/07/17 10:12 Dose: 40 mg Fluconazole (Diflucan Iv 200 Mg/100 Ml Ns) 100 mls @ 100 mls/hr IVPB DAILY [facility] Last Admin: 05/07/17 12:25 Dose: 100 mls/hr Meropenem 500 mg/ Sodium (Chloride) 100 mls @ 100 mls/hr IVPB Q8H [facility] Last Admin: 05/07/17 09:00 Dose: 100 mls/hr Sodium Chloride (Sodium Chloride 0.9%) 1,000 mls @ 75 mls/hr IV .[id number] [facility] Last Admin: 05/05/17 23:00 Dose: Not Given Chromium/Copper/Manganese/Zinc 1 ml/ Heparin Sodium (Porcine ) 1,000 units/ Amino Acids/Electrolytes/Dextrose 1,002 mls @ 83 mls/hr IV .[id number] [facility] Stop: 05/07/17 18:04 Heparin Sodium (Porcine) 1,000 units/ Chromium/Copper/Manganese/Zinc 1 ml/ Amino Acids/Electrolytes/Dextrose 1,002 mls @ 83 mls/hr IV .Q12H5M [facility] Stop: 05/08/17 06:04 Chromium/Copper/Manganese/Zinc 1 ml/ Heparin Sodium (Porcine ) 1,000 units/ Amino Acids/Electrolytes/Dextrose 1,002 mls @ 83 mls/hr IV .Q12H5M [facility] Stop: 05/08/17 18:04 Fat Emulsion Intravenous (Intralipid 20%) 250 mls @ 83 mls/hr IV DAILY [facility] Stop: 05/07/17 21:00 Insulin Human Regular (Novolin R) 0 unit SC ACHS [facility] PRN Reason: Protocol Lactobacillus Acidophilus (Bacid Acidophilus) 1 cap PO DAILY [facility] Last Admin: 05/07/17 10:00 Dose: Not Given Loperamide HCl (Imodium) 2 mg PO QID PRN PRN Reason: Diarrhea Last Admin: 05/01/17 22:58 Dose: 2 mg Magnesium Oxide (Mag-Ox) 400 mg PO DAILY [facility] Last Admin: 05/07/17 10:16 Dose: 400 mg Metoclopramide HCl (Reglan) 10 mg IVP ACHS [facility] Last Admin: 05/07/17 12:29 Dose: 10 mg Multivitamins (Hexavitamin) 1 tab PO DAILY [facility] Last Admin: 05/07/17 10:16 Dose: 1 tab Petrolatum (Desitin Original) 0 gm TOP TID PRN PRN Reason: Rash Potassium Chloride (K-Dur 20 Meq Er Tab) 40 meq PO DAILY [facility] Last Admin: 05/07/17 10:16 Dose: 40 meq Tramadol HCl (Ultram) 25 mg PO TID [facility] Last Admin: 05/07/17 16:39 Dose: 25 mg Zinc Sulfate (Zinc Sulfate 220 Mg Cap) 220 mg PO DAILY [facility] Last Admin: 05/07/17 10:17 Dose: 220 mg - Labs Labs: 05/04/17 07:16 05/04/17 07:16 PT 11.9 SECONDS (9.7-12.2) 04/13/17 06:28 INR 1.1 04/13/17 06:28 APTT 27 SECONDS (21-34) 04/13/17 06:28 Attending/Attestation - Attestation I have personally seen and examined this patient.: Yes I have fully participated in the care of the patient.: Yes I have reviewed all pertinent clinical information, including history, physical exam and plan: Yes Notes (Text): 05/07/17 17:14 Pt was seen and examined at bedside Agree with above note and assessment Pt is s/p Abdominal wound debridement and wound vac placement with ileostomy care Repeat Labs in am DVT prophylaxis OOB to néstor Reg high protein diet Plan d.w pt in detail
[2017-05-04] MEDS: Potassium Chloride 20 mEq ER Tab PO SCH (10:15)
[2017-05-04] MEDS: Magnesium Oxide 400 mg Tab UD PO SCH (10:15)
[2017-05-04] MEDS: Multiple Vitamins Tab PO SCH (10:15)
[2017-05-04] MEDS: Lactobacillus Acidophilus 500 MU Cap PO SCH (10:15)
[2017-05-04] MEDS: Pantoprazole 40 mg EC Tab PO SCH (10:16)
[2017-05-04] MEDS ORDERED: Oxycodone/Acetaminophen 5/325 mg Tab PO PRN (11:04)
[2017-05-04] MEDS ORDERED: Sodium Chloride 0.9% 250 ML IV ONE (11:04)
[2017-05-04] MEDS: Sodium Chloride 0.9% 1,000 ML IV SCH (12:30)
[2017-05-04] MEDS: Fluconazole IV 200mg/100 ml NS 100 ML IVPB SCH (12:31)
[2017-05-04] MEDS: Meropenem 500 MG in Dextrose 5% In Water 100 ML IVPB SCH (16:10)
[2017-05-04] MEDS ORDERED: PPN #5 IV ONE (18:00)
[2017-05-04] MEDS ORDERED: Fat Emulsion 20% IV 250 ML IV SCH (18:00)
--- NOTE | 2017-05-04 18:44 | CP.PCM.PN ---
Subjective - Date & Time of Evaluation Date of Evaluation: 05/04/17 Time of Evaluation: 11:40 - Subjective Subjective: clinically same Objective - Vital Signs/Intake and Output Vital Signs (last 24 hours): Temp Pulse Resp BP Pulse Ox 98.3 F 116 H 18 91/52 L 100 05/04/17 15:05 05/04/17 15:23 05/04/17 15:05 05/04/17 15:23 05/04/17 15:05 Intake and Output: 05/04/17 05/04/17 06:59 18:59 Intake Total 1127.5 1214 Output Total 1505 1050 Balance -377.5 164 - Medications Medications: Current Medications Acetaminophen (Tylenol 325mg Tab) 650 mg PO Q6 PRN PRN Reason: Pain, Mild (1-3) Alprazolam (Xanax) 0.25 mg PO ONCE [facility] Stop: 05/09/17 21:01 Last Admin: 05/01/17 22:58 Dose: 0.25 mg Ascorbic Acid (Vitamin C 500 Mg Tab) 500 mg PO DAILY [facility] Last Admin: 05/04/17 10:15 Dose: 500 mg Diphenhydramine HCl (Benadryl) 25 mg IVP Q8 PRN PRN Reason: Itching / Pruritus Fluconazole (Diflucan Iv 200 Mg/100 Ml Ns) 100 mls @ 100 mls/hr IVPB DAILY [facility] Last Admin: 05/04/17 12:31 Dose: 100 mls/hr Sodium Chloride (Sodium Chloride 0.9%) 1,000 mls @ 75 mls/hr IV .[id number] [facility] Last Admin: 05/04/17 12:30 Dose: 75 mls/hr Meropenem 500 mg/ Dextrose 100 mls @ 100 mls/hr IVPB Q8H [facility] Last Admin: 05/04/17 16:10 Dose: 100 mls/hr Multivitamins/Vitamin C 10 ml/ (Amino Acids) 1,010 mls @ 83 mls/hr IV .[id number] ONE Stop: 05/05/17 06:10 Amino Acids (Clinimix 4.25/5 % "E" (1000 Ml)) 1,000 mls @ 83 mls/hr IV .Q12H3M [facility] Stop: 05/05/17 18:02 Fat Emulsion Intravenous (Intralipid 20%) 250 mls @ 42 mls/hr IV ThSa@1800 [facility] Stop: 05/06/17 23:58 Insulin Aspart (Novolog) 0 unit SC ACHS [facility] PRN Reason: Protocol Last Admin: 05/04/17 17:28 Dose: 4 unit Lactobacillus Acidophilus (Bacid Acidophilus) 1 cap PO DAILY [facility] Last Admin: 05/04/17 10:15 Dose: 1 cap Loperamide HCl (Imodium) 2 mg PO QID PRN PRN Reason: Diarrhea Last Admin: 05/01/17 22:58 Dose: 2 mg Magnesium Oxide (Mag-Ox) 400 mg PO DAILY [facility] Last Admin: 05/04/17 10:15 Dose: 400 mg Metoclopramide HCl (Reglan) 10 mg IVP ACHS [facility] Last Admin: 05/04/17 16:09 Dose: 10 mg Multivitamins (Hexavitamin) 1 tab PO DAILY [facility] Last Admin: 05/04/17 10:15 Dose: 1 tab Oxycodone/Acetaminophen (Percocet 5/325 Mg Tab) 1 tab PO Q6H PRN PRN Reason: Pain, severe (8-10) Stop: 05/04/17 23:31 Pantoprazole Sodium (Protonix Ec Tab) 40 mg PO DAILY [facility] Last Admin: 05/04/17 10:16 Dose: 40 mg Petrolatum (Desitin Original) 0 gm TOP TID PRN PRN Reason: Rash Potassium Chloride (K-Dur 20 Meq Er Tab) 40 meq PO DAILY [facility] Last Admin: 05/04/17 10:15 Dose: Not Given Zinc Sulfate (Zinc Sulfate 220 Mg Cap) 220 mg PO DAILY [facility] Last Admin: 05/04/17 10:17 Dose: 220 mg - Labs Labs: 05/04/17 07:16 05/04/17 07:16 PT 11.9 SECONDS (9.7-12.2) 04/13/17 06:28 INR 1.1 04/13/17 06:28 APTT 27 SECONDS (21-34) 04/13/17 06:28 - Constitutional Appears: Well - Head Exam Head Exam: ATRAUMATIC, NORMAL INSPECTION, NORMOCEPHALIC - Eye Exam Eye Exam: EOMI, Normal appearance, PERRL Pupil Exam: NORMAL ACCOMODATION, PERRL - ENT Exam ENT Exam: Mucous Membranes Moist, Normal Exam - Neck Exam Neck Exam: Full ROM, Normal Inspection. absent: Lymphadenopathy - Respiratory Exam Respiratory Exam: Clear to Ausculation Bilateral, NORMAL BREATHING PATTERN - Cardiovascular Exam Cardiovascular Exam: REGULAR RHYTHM, +S1, +S2. absent: Murmur - GI/Abdominal Exam GI & Abdominal Exam: Soft, Normal Bowel Sounds. absent: Tenderness - Rectal Exam Rectal Exam: Deferred - Back Exam Back Exam: NORMAL INSPECTION - Neurological Exam Neurological Exam: Alert, Awake, CN II-XII Intact, Normal Gait, Oriented x3 - Psychiatric Exam Psychiatric exam: Normal Affect, Normal Mood - Skin Skin Exam: Dry, Intact, Normal Color, Warm Assessment and Plan (1) Colonic fistula Status: Acute (2) Displacement of Mckeon catheter Status: Acute - Assessment and Plan (Free Text) Plan: Patient examined. Diffuse abdominal pain present. Continue broad-spectrum antibiotic. Continue insulin, other antidiabetic medications, antihypertensive medications and supportive care.
[2017-05-05] MEDS: Meropenem 500 MG in Dextrose 5% In Water 100 ML IVPB SCH ×2 (00:27→09:29)
[2017-05-05] MEDS ORDERED: PPN #6 IV ONE (06:00)
[2017-05-05] MEDS: (Novolog) Insulin Aspart, Recombinant 100 u/ml 10 ml vial SC SCH ×4 (07:54→22:18)
--- NOTE | 2017-05-05 08:41 | CP.PCM.PN ---
<Elbert Romero - Last Filed: 05/05/17 08:43> Subjective - Date & Time of Evaluation Date of Evaluation: 05/05/17 Time of Evaluation: 08:39 - Subjective Subjective: Surgery: Dr. Cabral Pt seen and examined. She has pain in lower extremities. Per nursing, ostomy has been functioning well, no issues at this time. Objective - Vital Signs/Intake and Output Vital Signs (last 24 hours): Temp Pulse Resp BP Pulse Ox 98.0 F 113 H 20 101/68 100 05/05/17 04:00 05/05/17 04:00 05/05/17 04:00 05/05/17 04:00 05/05/17 04:00 Intake and Output: 05/05/17 05/05/17 06:59 18:59 Intake Total 1264 Output Total 4670 Balance -3406 - Medications Medications: Current Medications Acetaminophen (Tylenol 325mg Tab) 650 mg PO Q6 PRN PRN Reason: Pain, Mild (1-3) Last Admin: 05/04/17 22:10 Dose: 650 mg Alprazolam (Xanax) 0.25 mg PO ONCE [facility] Stop: 05/09/17 21:01 Last Admin: 05/01/17 22:58 Dose: 0.25 mg Ascorbic Acid (Vitamin C 500 Mg Tab) 500 mg PO DAILY [facility] Last Admin: 05/04/17 10:15 Dose: 500 mg Diphenhydramine HCl (Benadryl) 25 mg IVP Q8 PRN PRN Reason: Itching / Pruritus Fluconazole (Diflucan Iv 200 Mg/100 Ml Ns) 100 mls @ 100 mls/hr IVPB DAILY [facility] Last Admin: 05/04/17 12:31 Dose: 100 mls/hr Meropenem 500 mg/ Dextrose 100 mls @ 100 mls/hr IVPB Q8H [facility] Last Admin: 05/05/17 00:27 Dose: 100 mls/hr Amino Acids (Clinimix 4.25/5 % "E" (1000 Ml)) 1,000 mls @ 83 mls/hr IV .Q12H3M ONE Stop: 05/05/17 18:02 Last Admin: 05/05/17 07:55 Dose: 83 mls/hr Fat Emulsion Intravenous (Intralipid 20%) 250 mls @ 42 mls/hr IV ThSa@1800 [facility] Stop: 05/06/17 23:58 Last Admin: 05/04/17 19:00 Dose: 42 mls/hr Insulin Aspart (Novolog) 0 unit SC ACHS [facility] PRN Reason: Protocol Last Admin: 05/05/17 07:54 Dose: 4 unit Lactobacillus Acidophilus (Bacid Acidophilus) 1 cap PO DAILY [facility] Last Admin: 05/04/17 10:15 Dose: 1 cap Loperamide HCl (Imodium) 2 mg PO QID PRN PRN Reason: Diarrhea Last Admin: 05/01/17 22:58 Dose: 2 mg Magnesium Oxide (Mag-Ox) 400 mg PO DAILY [facility] Last Admin: 05/04/17 10:15 Dose: 400 mg Metoclopramide HCl (Reglan) 10 mg IVP ACHS [facility] Last Admin: 05/05/17 07:54 Dose: 10 mg Multivitamins (Hexavitamin) 1 tab PO DAILY [facility] Last Admin: 05/04/17 10:15 Dose: 1 tab Pantoprazole Sodium (Protonix Ec Tab) 40 mg PO DAILY [facility] Last Admin: 05/04/17 10:16 Dose: 40 mg Petrolatum (Desitin Original) 0 gm TOP TID PRN PRN Reason: Rash Potassium Chloride (K-Dur 20 Meq Er Tab) 40 meq PO DAILY [facility] Last Admin: 05/04/17 10:15 Dose: Not Given Zinc Sulfate (Zinc Sulfate 220 Mg Cap) 220 mg PO DAILY [facility] Last Admin: 05/04/17 10:17 Dose: 220 mg - Labs Labs: 05/04/17 07:16 05/04/17 07:16 PT 11.9 SECONDS (9.7-12.2) 04/13/17 06:28 INR 1.1 04/13/17 06:28 APTT 27 SECONDS (21-34) 04/13/17 06:28 - Constitutional Appears: Cachectic, Chronically Ill - Head Exam Head Exam: ATRAUMATIC, NORMOCEPHALIC - Eye Exam Eye Exam: EOMI - ENT Exam ENT Exam: Mucous Membranes Moist - Respiratory Exam Respiratory Exam: NORMAL BREATHING PATTERN. absent: Accessory Muscle Use, Respiratory Distress - GI/Abdominal Exam GI & Abdominal Exam: Soft. absent: Distended, Firm, Guarding, Rigid, Tenderness Additional comments: ostomy pink and patent, bag in place, no obvious leakage noted - Extremities Exam Extremities Exam: Calf Tenderness - Neurological Exam Neurological Exam: Alert, Awake Assessment and Plan - Assessment and Plan (Free Text) Assessment: 61 y/o F POD#2 s/p debridement of midline incision w/ wound vac placement and ostomy care; POD#23 s/p ex-lap, small bowel resection w/ ileostomy, bladder repair, appendectomy -Duplex ordered to assess leg pain/swelling -c/w PPN -ultram around the clock for pain -xanax QHS -will plan for wound vac change on 05/06 -leave ostomy bag in place, only chage gonzalez attached to ostomy bag -d/w attending Heather PGY3 <Sumeet Cabral - Last Filed: 05/07/17 17:24> Objective - Vital Signs/Intake and Output Vital Signs (last 24 hours): Temp Pulse Resp BP Pulse Ox 98.1 F 106 H 20 98/59 L 99 05/07/17 16:00 05/07/17 16:00 05/07/17 16:00 05/07/17 16:00 05/07/17 16:00 Intake and Output: 05/07/17 05/07/17 06:59 18:59 Intake Total 858 581 Output Total 795 Balance 63 581 - Medications Medications: Current Medications Acetaminophen (Tylenol 325mg Tab) 650 mg PO Q6 PRN PRN Reason: Pain, Mild (1-3) Last Admin: 05/04/17 22:10 Dose: 650 mg Alprazolam (Xanax) 0.25 mg PO ONCE [facility] Stop: 05/09/17 21:01 Last Admin: 05/01/17 22:58 Dose: 0.25 mg Ascorbic Acid (Vitamin C 500 Mg Tab) 500 mg PO DAILY [facility] Last Admin: 05/07/17 10:17 Dose: 500 mg Enoxaparin Sodium (Lovenox) 40 mg SC Q12 [facility] Last Admin: 05/07/17 10:12 Dose: 40 mg Fluconazole (Diflucan Iv 200 Mg/100 Ml Ns) 100 mls @ 100 mls/hr IVPB DAILY [facility] Last Admin: 05/07/17 12:25 Dose: 100 mls/hr Meropenem 500 mg/ Sodium (Chloride) 100 mls @ 100 mls/hr IVPB Q8H [facility] Last Admin: 05/07/17 09:00 Dose: 100 mls/hr Sodium Chloride (Sodium Chloride 0.9%) 1,000 mls @ 75 mls/hr IV .[id number] [facility] Last Admin: 05/05/17 23:00 Dose: Not Given Chromium/Copper/Manganese/Zinc 1 ml/ Heparin Sodium (Porcine ) 1,000 units/ Amino Acids/Electrolytes/Dextrose 1,002 mls @ 83 mls/hr IV .Q12H5M ONE Stop: 05/07/17 18:04 Heparin Sodium (Porcine) 1,000 units/ Chromium/Copper/Manganese/Zinc 1 ml/ Amino Acids/Electrolytes/Dextrose 1,002 mls @ 83 mls/hr IV .Q12H5M ONE Stop: 05/08/17 06:04 Chromium/Copper/Manganese/Zinc 1 ml/ Heparin Sodium (Porcine ) 1,000 units/ Amino Acids/Electrolytes/Dextrose 1,002 mls @ 83 mls/hr IV .Q12H5M ONE Stop: 05/08/17 18:04 Fat Emulsion Intravenous (Intralipid 20%) 250 mls @ 83 mls/hr IV DAILY [facility] Stop: 05/07/17 21:00 Insulin Human Regular (Novolin R) 0 unit SC ACHS [facility] PRN Reason: Protocol Lactobacillus Acidophilus (Bacid Acidophilus) 1 cap PO DAILY [facility] Last Admin: 05/07/17 10:00 Dose: Not Given Loperamide HCl (Imodium) 2 mg PO QID PRN PRN Reason: Diarrhea Last Admin: 05/01/17 22:58 Dose: 2 mg Magnesium Oxide (Mag-Ox) 400 mg PO DAILY [facility] Last Admin: 05/07/17 10:16 Dose: 400 mg Metoclopramide HCl (Reglan) 10 mg IVP ACHS [facility] Last Admin: 05/07/17 12:29 Dose: 10 mg Multivitamins (Hexavitamin) 1 tab PO DAILY [facility] Last Admin: 05/07/17 10:16 Dose: 1 tab Petrolatum (Desitin Original) 0 gm TOP TID PRN PRN Reason: Rash Potassium Chloride (K-Dur 20 Meq Er Tab) 40 meq PO DAILY [facility] Last Admin: 05/07/17 10:16 Dose: 40 meq Tramadol HCl (Ultram) 25 mg PO TID [facility] Last Admin: 05/07/17 16:39 Dose: 25 mg Zinc Sulfate (Zinc Sulfate 220 Mg Cap) 220 mg PO DAILY [facility] Last Admin: 05/07/17 10:17 Dose: 220 mg - Labs Labs: 05/04/17 07:16 05/04/17 07:16 PT 11.9 SECONDS (9.7-12.2) 04/13/17 06:28 INR 1.1 04/13/17 06:28 APTT 27 SECONDS (21-34) 04/13/17 06:28 Attending/Attestation - Attestation I have personally seen and examined this patient.: Yes I have fully participated in the care of the patient.: Yes I have reviewed all pertinent clinical information, including history, physical exam and plan: Yes Notes (Text): 05/07/17 17:24 Pt was seen and examined at bedside Agree with above note and assessment High protein diet OOB to chair.
[2017-05-05] MEDS: Fluconazole IV 200mg/100 ml NS 100 ML IVPB SCH (10:38)
[2017-05-05] MEDS: Lactobacillus Acidophilus 500 MU Cap PO SCH ×2 (10:40→10:52)
[2017-05-05] MEDS: Magnesium Oxide 400 mg Tab UD PO SCH ×2 (10:40→11:46)
[2017-05-05] MEDS: Multiple Vitamins Tab PO SCH ×2 (10:41→11:46)
[2017-05-05] MEDS: Pantoprazole 40 mg EC Tab PO SCH ×2 (10:41→11:46)
[2017-05-05] MEDS: Tramadol 25 mg PO SCH ×4 (10:41→18:00)
[2017-05-05] MEDS: Potassium Chloride 20 mEq ER Tab PO SCH ×2 (10:41→12:04)
[2017-05-05] MEDS: Enoxaparin 40 mg Syringe SC SCH ×2 (13:36→21:51)
--- NOTE | 2017-05-05 13:55 | VASCLAB ---
PROCEDURE: Lower Extremity Venous Duplex Exam. HISTORY: LE pain/swelling PRIORS: None. TECHNIQUE: Bilateral common femoral, femoral, popliteal and posterior tibial, peroneal and great saphenous veins were evaluated. Flow was assessed with color Doppler, compressibility, assessment of phasic flow and augmentation response. Report prepared by Jayce Mora, RODOLFO, RVT FINDINGS: RIGHT: 1. Common Femoral Vein: 1.1. Compressibility - Fully compressible: Thrombus - None : Flow - Phasic: Augmentation -Normal: Reflux - None. 2. Femoral Vein: 2.1. Compressibility - Fully compressible: Thrombus - None : Flow - Phasic: Augmentation -Normal: Reflux - None. 3. Popliteal Vein: 3.1. Compressibility - Fully compressible: Thrombus - None : Flow - Phasic: Augmentation -Normal: Reflux - None. 4. Posterior Tibial Vein: 4.1. Compressibility - Fully compressible: Thrombus - None: Flow - Phasic: Augmentation -Normal: Reflux - None. 5. Peroneal Vein: 5.1. Compressibility - Fully compressible: Thrombus - None: Flow - Phasic: Augmentation -Normal: Reflux - None. 6. Great Saphenous Vein: 6.1. Compressibility - Fully compressible: Thrombus - None: Flow - Phasic: Augmentation - Normal: Reflux - None. LEFT: 1. Common Femoral Vein: 1.1. Compressibility - Partial: Thrombus - Acute: Flow - Absent : Augmentation -None: Reflux - None. 2. Femoral Vein: 2.1. Compressibility - Partial: Thrombus - Acute: Flow - Absent : Augmentation -None: Reflux - None. 3. Popliteal Vein: 3.1. Compressibility - Fully compressible: Thrombus - None : Flow - Phasic: Augmentation -Normal: Reflux - None. 4. Posterior Tibial Vein: 4.1. Compressibility - Fully compressible: Thrombus - None: Flow - Phasic: Augmentation -Normal: Reflux - None. 5. Peroneal Vein: 5.1. Compressibility - Fully compressible: Thrombus - None: Flow - Phasic: Augmentation -Normal: Reflux - None. 6. Great Saphenous Vein: 6.1. Compressibility - Fully compressible: Thrombus - None: Flow - Phasic: Augmentation - Normal: Reflux - None. OTHER FINDINGS: SHERIDAN Smith notified about the findings. IMPRESSION: Right: No evidence of deep or superficial vein thrombosis of the right lower extremity. Normal valve function noted of the right side. Left: Acute thrombosis of the left common femoral and femoral veins with severe reduction of the venous return.
--- NOTE | 2017-05-05 16:33 | PCM.URO ---
Urology Progress Note - Subjective Abdominal Pain: Yes Flank Pain: No Voiding Well: No Hematuria: No Fever & Chills: No - Objective Lab Results Last 24 Hours: Laboratory Results - last 24 hr 05/04/17 05/04/17 05/05/17 16:28 21:06 06:30 POC Glucose (mg/dL) 209 H 204 H 235 H 05/05/17 12:02 POC Glucose (mg/dL) 179 H Intake & Output: Intake & Output 05/04/17 05/05/17 05/05/17 18:59 06:59 18:59 Intake Total 1214 1264 300 Output Total 1050 4670 1451 Balance 019 -5484 -3697 Intake: Intake, IV Amount 250 100 Left Antecubital 250 100 Oral 100 50 TPN/PPN 864 996 250 Lipid 168 Output: Gastric Amount 450 1950 Right 450 1950 Drainage 475 1855 801 Abdomen 300 1 Left 555 50 Left Abdomen 175 325 50 Right 975 700 Urine 125 865 650 Urethral (Gonzalez) 125 865 650 Vital Signs: Vital Signs - 24 hr 05/04/17 05/04/17 05/05/17 22:12 23:19 04:00 Temperature 98.7 F 98.0 F Pulse Rate 114 H 115 H 113 H Respiratory 20 20 Rate Blood Pressure 106/72 93/55 L 101/68 O2 Sat by Pulse 100 100 Oximetry 05/05/17 08:52 Temperature 97.4 F L Pulse Rate 114 H Respiratory 18 Rate Blood Pressure 113/71 O2 Sat by Pulse 100 Oximetry - Physical Exam Abdominal Exam: Soft, Non-Distended Wound: absent: Clean, Healing Well Back: No CVA Tenderness (bilat nephrostomy tubes, draining well) Urinary Catheter Draining Well: Yes (scant drainge via urethral gonzalez catheter) Urine Color: Yellow (yellow via NT) - Plan Additional Information: IMP: wound nfection. abd/pelvic abscess. NT's in[ alce. Scant urine via gonzalez is sexpected, as urine is draingin via NT's. REC/P : Nephrostogram. cystogram. to define the anatomy of the urinary tract. discussed w surgical staff - Date & Time of Note Date: 05/05/17 Time: 16:33
[2017-05-05] MEDS: Meropenem 500 MG in Sodium Chloride 0.9% 100 ML IVPB SCH (16:40)
[2017-05-05] MEDS ORDERED: PPN#7 IV SCH (18:00)
--- NOTE | 2017-05-05 19:15 | CP.PCM.PN ---
Subjective - Date & Time of Evaluation Date of Evaluation: 05/05/17 Time of Evaluation: 09:40 - Subjective Subjective: clinically same Objective - Vital Signs/Intake and Output Vital Signs (last 24 hours): Temp Pulse Resp BP Pulse Ox 98.1 F 117 H 18 93/57 L 100 05/05/17 15:05 05/05/17 15:05 05/05/17 15:05 05/05/17 15:05 05/05/17 15:05 Intake and Output: 05/05/17 05/06/17 18:59 06:59 Intake Total 300 Output Total 1451 Balance -1151 - Medications Medications: Current Medications Acetaminophen (Tylenol 325mg Tab) 650 mg PO Q6 PRN PRN Reason: Pain, Mild (1-3) Last Admin: 05/04/17 22:10 Dose: 650 mg Alprazolam (Xanax) 0.25 mg PO ONCE [facility] Stop: 05/09/17 21:01 Last Admin: 05/01/17 22:58 Dose: 0.25 mg Ascorbic Acid (Vitamin C 500 Mg Tab) 500 mg PO DAILY [facility] Last Admin: 05/05/17 11:47 Dose: Not Given Diphenhydramine HCl (Benadryl) 25 mg IVP Q8 PRN PRN Reason: Itching / Pruritus Enoxaparin Sodium (Lovenox) 40 mg SC Q12 [facility] Last Admin: 05/05/17 13:36 Dose: 40 mg Fluconazole (Diflucan Iv 200 Mg/100 Ml Ns) 100 mls @ 100 mls/hr IVPB DAILY [facility] Last Admin: 05/05/17 10:38 Dose: 100 mls/hr Fat Emulsion Intravenous (Intralipid 20%) 250 mls @ 42 mls/hr IV ThSa@1800 [facility] Stop: 05/06/17 23:58 Last Admin: 05/04/17 19:00 Dose: 42 mls/hr Meropenem 500 mg/ Sodium (Chloride) 100 mls @ 100 mls/hr IVPB Q8H [facility] Last Admin: 05/05/17 16:40 Dose: 100 mls/hr Insulin Aspart (Novolog) 0 unit SC ACHS [facility] PRN Reason: Protocol Last Admin: 05/05/17 17:30 Dose: 2 unit Lactobacillus Acidophilus (Bacid Acidophilus) 1 cap PO DAILY [facility] Last Admin: 05/05/17 10:52 Dose: Not Given Loperamide HCl (Imodium) 2 mg PO QID PRN PRN Reason: Diarrhea Last Admin: 05/01/17 22:58 Dose: 2 mg Magnesium Oxide (Mag-Ox) 400 mg PO DAILY [facility] Last Admin: 05/05/17 11:46 Dose: Not Given Metoclopramide HCl (Reglan) 10 mg IVP ACHS [facility] Last Admin: 05/05/17 16:39 Dose: 10 mg Multivitamins (Hexavitamin) 1 tab PO DAILY [facility] Last Admin: 05/05/17 11:46 Dose: Not Given Pantoprazole Sodium (Protonix Ec Tab) 40 mg PO DAILY [facility] Last Admin: 05/05/17 11:46 Dose: Not Given Petrolatum (Desitin Original) 0 gm TOP TID PRN PRN Reason: Rash Potassium Chloride (K-Dur 20 Meq Er Tab) 40 meq PO DAILY [facility] Last Admin: 05/05/17 12:04 Dose: Not Given Tramadol HCl (Ultram) 25 mg PO TID [facility] Last Admin: 05/05/17 13:23 Dose: Not Given Zinc Sulfate (Zinc Sulfate 220 Mg Cap) 220 mg PO DAILY [facility] Last Admin: 05/05/17 11:47 Dose: Not Given - Labs Labs: 05/04/17 07:16 05/04/17 07:16 PT 11.9 SECONDS (9.7-12.2) 04/13/17 06:28 INR 1.1 04/13/17 06:28 APTT 27 SECONDS (21-34) 04/13/17 06:28 - Constitutional Appears: Well - Head Exam Head Exam: ATRAUMATIC, NORMAL INSPECTION, NORMOCEPHALIC - Eye Exam Eye Exam: EOMI, Normal appearance, PERRL Pupil Exam: NORMAL ACCOMODATION, PERRL - ENT Exam ENT Exam: Mucous Membranes Moist, Normal Exam - Neck Exam Neck Exam: Full ROM, Normal Inspection. absent: Lymphadenopathy - Respiratory Exam Respiratory Exam: Decreased Breath Sounds - Cardiovascular Exam Cardiovascular Exam: REGULAR RHYTHM, +S1, +S2 - GI/Abdominal Exam GI & Abdominal Exam: Soft, Diminished Bowel Sounds - Rectal Exam Rectal Exam: Deferred - Back Exam Back Exam: NORMAL INSPECTION - Neurological Exam Neurological Exam: Alert, Awake, CN II-XII Intact, Normal Gait, Oriented x3 - Psychiatric Exam Psychiatric exam: Normal Affect, Normal Mood - Skin Skin Exam: Dry, Intact, Normal Color, Warm Assessment and Plan (1) Colonic fistula Status: Acute (2) Displacement of Mckeon catheter Status: Acute - Assessment and Plan (Free Text) Plan: Patient examined. Diffuse abdominal pain present. Continue broad-spectrum antibiotic. Continue insulin, other antidiabetic medications, antihypertensive medications and supportive care.
[2017-05-05] MEDS: Sodium Chloride 0.9% 1,000 ML IV SCH (23:00)
[2017-05-06] MEDS: Meropenem 500 MG in Sodium Chloride 0.9% 100 ML IVPB SCH ×3 (00:28→17:00)
[2017-05-06] MEDS ORDERED: PPN IV SCH (06:00)
[2017-05-06] MEDS: (Novolog) Insulin Aspart, Recombinant 100 u/ml 10 ml vial SC SCH ×2 (07:19→11:41)
[2017-05-06] MEDS: Fluconazole IV 200mg/100 ml NS 100 ML IVPB SCH (09:26)
[2017-05-06] MEDS: Lactobacillus Acidophilus 500 MU Cap PO SCH (09:28)
[2017-05-06] MEDS: Enoxaparin 40 mg Syringe SC SCH ×2 (09:28→23:00)
[2017-05-06] MEDS: Potassium Chloride 20 mEq ER Tab PO SCH (09:28)
[2017-05-06] MEDS: Multiple Vitamins Tab PO SCH (09:28)
[2017-05-06] MEDS: Tramadol 25 mg PO SCH ×4 (09:29→18:00)
[2017-05-06] MEDS: Pantoprazole 40 mg EC Tab PO SCH (09:29)
[2017-05-06] MEDS: Magnesium Oxide 400 mg Tab UD PO SCH (09:29)
--- NOTE | 2017-05-06 09:41 | CP.PCM.PN ---
Addendum entered and electronically signed by Mono Klein DO 05/06/17 09:44 : Duplex US shows acute thrombosis of L Femoral vein and L CFV, Pt on lovenox. Original Note: <Mono Klein - Last Filed: 05/06/17 09:38> Subjective - Date & Time of Evaluation Date of Evaluation: 05/06/17 Time of Evaluation: 07:10 - Subjective Subjective: General Surgery Pt S&E, NAEO. Ostomy device is leaking from lateral portion and wound vac is clogged. Objective - Vital Signs/Intake and Output Vital Signs (last 24 hours): Temp Pulse Resp BP Pulse Ox 98.3 F 107 H 17 81/48 L 100 05/06/17 07:20 05/06/17 07:20 05/06/17 07:20 05/06/17 07:20 05/06/17 07:20 Intake and Output: 05/06/17 05/06/17 06:59 18:59 Intake Total 1529 Output Total 1660 Balance -131 - Medications Medications: Current Medications Acetaminophen (Tylenol 325mg Tab) 650 mg PO Q6 PRN PRN Reason: Pain, Mild (1-3) Last Admin: 05/04/17 22:10 Dose: 650 mg Alprazolam (Xanax) 0.25 mg PO ONCE [facility] Stop: 05/09/17 21:01 Last Admin: 05/01/17 22:58 Dose: 0.25 mg Ascorbic Acid (Vitamin C 500 Mg Tab) 500 mg PO DAILY [facility] Last Admin: 05/06/17 09:29 Dose: Not Given Diphenhydramine HCl (Benadryl) 25 mg IVP Q8 PRN PRN Reason: Itching / Pruritus Enoxaparin Sodium (Lovenox) 40 mg SC Q12 [facility] Last Admin: 05/06/17 09:28 Dose: 40 mg Fluconazole (Diflucan Iv 200 Mg/100 Ml Ns) 100 mls @ 100 mls/hr IVPB DAILY [facility] Last Admin: 05/06/17 09:26 Dose: 100 mls/hr Fat Emulsion Intravenous (Intralipid 20%) 250 mls @ 42 mls/hr IV ThSa@1800 [facility] Stop: 05/06/17 23:58 Last Admin: 05/04/17 19:00 Dose: 42 mls/hr Meropenem 500 mg/ Sodium (Chloride) 100 mls @ 100 mls/hr IVPB Q8H [facility] Last Admin: 05/06/17 07:23 Dose: 100 mls/hr Sodium Chloride (Sodium Chloride 0.9%) 1,000 mls @ 75 mls/hr IV .[id number] [facility] Last Admin: 05/05/17 23:00 Dose: Not Given Insulin Aspart (Novolog) 0 unit SC ACHS [facility] PRN Reason: Protocol Last Admin: 05/06/17 07:19 Dose: Not Given Lactobacillus Acidophilus (Bacid Acidophilus) 1 cap PO DAILY [facility] Last Admin: 05/06/17 09:28 Dose: Not Given Loperamide HCl (Imodium) 2 mg PO QID PRN PRN Reason: Diarrhea Last Admin: 05/01/17 22:58 Dose: 2 mg Magnesium Oxide (Mag-Ox) 400 mg PO DAILY [facility] Last Admin: 05/06/17 09:29 Dose: Not Given Metoclopramide HCl (Reglan) 10 mg IVP ACHS [facility] Last Admin: 05/06/17 07:23 Dose: 10 mg Multivitamins (Hexavitamin) 1 tab PO DAILY [facility] Last Admin: 05/06/17 09:28 Dose: Not Given Pantoprazole Sodium (Protonix Ec Tab) 40 mg PO DAILY [facility] Last Admin: 05/06/17 09:29 Dose: Not Given Petrolatum (Desitin Original) 0 gm TOP TID PRN PRN Reason: Rash Potassium Chloride (K-Dur 20 Meq Er Tab) 40 meq PO DAILY [facility] Last Admin: 05/06/17 09:28 Dose: Not Given Tramadol HCl (Ultram) 25 mg PO TID [facility] Last Admin: 05/06/17 09:29 Dose: Not Given Zinc Sulfate (Zinc Sulfate 220 Mg Cap) 220 mg PO DAILY [facility] Last Admin: 05/06/17 09:30 Dose: Not Given - Labs Labs: 05/04/17 07:16 05/04/17 07:16 PT 11.9 SECONDS (9.7-12.2) 04/13/17 06:28 INR 1.1 04/13/17 06:28 APTT 27 SECONDS (21-34) 04/13/17 06:28 - Constitutional Appears: Non-toxic, No Acute Distress - Head Exam Head Exam: ATRAUMATIC, NORMOCEPHALIC - Eye Exam Eye Exam: EOMI. absent: Scleral icterus - Respiratory Exam Respiratory Exam: NORMAL BREATHING PATTERN. absent: Respiratory Distress - GI/Abdominal Exam GI & Abdominal Exam: Soft. absent: Distended, Firm, Guarding, Rigid Additional comments: ostomy pink and viable. leaking around ostomy wafer. wound vac not functioning - Neurological Exam Neurological Exam: Alert, Awake - Skin Skin Exam: Dry, Warm Assessment and Plan - Assessment and Plan (Free Text) Assessment: 61F POD#3 s/p debridement of midline incision w/ wound vac placement and ostomy care; POD#24 s/p ex-lap, small bowel resection w/ ileostomy, bladder repair, appendectomy Plan: Wound vac supplies and flexiseal rectal tube to bedside Dr. Cabral to evaluate TPN D/W Dr. Misha Klein PGY4 <Sumeet Cabral - Last Filed: 05/07/17 17:29> Objective - Vital Signs/Intake and Output Vital Signs (last 24 hours): Temp Pulse Resp BP Pulse Ox 98.1 F 106 H 20 98/59 L 99 05/07/17 16:00 05/07/17 16:00 05/07/17 16:00 05/07/17 16:00 05/07/17 16:00 Intake and Output: 05/07/17 05/07/17 06:59 18:59 Intake Total 858 581 Output Total 795 Balance 63 581 - Medications Medications: Current Medications Acetaminophen (Tylenol 325mg Tab) 650 mg PO Q6 PRN PRN Reason: Pain, Mild (1-3) Last Admin: 05/04/17 22:10 Dose: 650 mg Alprazolam (Xanax) 0.25 mg PO ONCE [facility] Stop: 05/09/17 21:01 Last Admin: 05/01/17 22:58 Dose: 0.25 mg Ascorbic Acid (Vitamin C 500 Mg Tab) 500 mg PO DAILY [facility] Last Admin: 05/07/17 10:17 Dose: 500 mg Enoxaparin Sodium (Lovenox) 40 mg SC Q12 [facility] Last Admin: 05/07/17 10:12 Dose: 40 mg Fluconazole (Diflucan Iv 200 Mg/100 Ml Ns) 100 mls @ 100 mls/hr IVPB DAILY [facility] Last Admin: 05/07/17 12:25 Dose: 100 mls/hr Meropenem 500 mg/ Sodium (Chloride) 100 mls @ 100 mls/hr IVPB Q8H [facility] Last Admin: 05/07/17 09:00 Dose: 100 mls/hr Sodium Chloride (Sodium Chloride 0.9%) 1,000 mls @ 75 mls/hr IV .[id number] [facility] Last Admin: 05/05/17 23:00 Dose: Not Given Chromium/Copper/Manganese/Zinc 1 ml/ Heparin Sodium (Porcine ) 1,000 units/ Amino Acids/Electrolytes/Dextrose 1,002 mls @ 83 mls/hr IV .Q12H5M [facility] Stop: 05/07/17 18:04 Heparin Sodium (Porcine) 1,000 units/ Chromium/Copper/Manganese/Zinc 1 ml/ Amino Acids/Electrolytes/Dextrose 1,002 mls @ 83 mls/hr IV .Q12H5M [facility] Stop: 05/08/17 06:04 Chromium/Copper/Manganese/Zinc 1 ml/ Heparin Sodium (Porcine ) 1,000 units/ Amino Acids/Electrolytes/Dextrose 1,002 mls @ 83 mls/hr IV .Q12H5M [facility] Stop: 05/08/17 18:04 Fat Emulsion Intravenous (Intralipid 20%) 250 mls @ 83 mls/hr IV DAILY [facility] Stop: 05/07/17 21:00 Insulin Human Regular (Novolin R) 0 unit SC ACHS [facility] PRN Reason: Protocol Lactobacillus Acidophilus (Bacid Acidophilus) 1 cap PO DAILY [facility] Last Admin: 05/07/17 10:00 Dose: Not Given Loperamide HCl (Imodium) 2 mg PO QID PRN PRN Reason: Diarrhea Last Admin: 05/01/17 22:58 Dose: 2 mg Magnesium Oxide (Mag-Ox) 400 mg PO DAILY [facility] Last Admin: 05/07/17 10:16 Dose: 400 mg Metoclopramide HCl (Reglan) 10 mg IVP ACHS [facility] Last Admin: 05/07/17 12:29 Dose: 10 mg Multivitamins (Hexavitamin) 1 tab PO DAILY [facility] Last Admin: 05/07/17 10:16 Dose: 1 tab Petrolatum (Desitin Original) 0 gm TOP TID PRN PRN Reason: Rash Potassium Chloride (K-Dur 20 Meq Er Tab) 40 meq PO DAILY [facility] Last Admin: 05/07/17 10:16 Dose: 40 meq Tramadol HCl (Ultram) 25 mg PO TID [facility] Last Admin: 05/07/17 16:39 Dose: 25 mg Zinc Sulfate (Zinc Sulfate 220 Mg Cap) 220 mg PO DAILY [facility] Last Admin: 05/07/17 10:17 Dose: 220 mg - Labs Labs: 05/04/17 07:16 05/04/17 07:16 PT 11.9 SECONDS (9.7-12.2) 04/13/17 06:28 INR 1.1 04/13/17 06:28 APTT 27 SECONDS (21-34) 04/13/17 06:28 Attending/Attestation - Attestation I have personally seen and examined this patient.: Yes I have fully participated in the care of the patient.: Yes I have reviewed all pertinent clinical information, including history, physical exam and plan: Yes Notes (Text): 05/07/17 17:28 Pt was seen and examined at bedside Agree with above note and assessment Ileostomy is leaking Wound care consult c/w current mx
--- NOTE | 2017-05-06 10:31 | CP.PCM.PN ---
Subjective - Date & Time of Evaluation Date of Evaluation: 05/06/17 Time of Evaluation: 09:40 - Subjective Subjective: clinically same Objective - Vital Signs/Intake and Output Vital Signs (last 24 hours): Temp Pulse Resp BP Pulse Ox 98.3 F 107 H 17 81/48 L 100 05/06/17 07:20 05/06/17 07:20 05/06/17 07:20 05/06/17 07:20 05/06/17 07:20 Intake and Output: 05/06/17 05/06/17 06:59 18:59 Intake Total 1529 Output Total 1660 Balance -131 - Medications Medications: Current Medications Acetaminophen (Tylenol 325mg Tab) 650 mg PO Q6 PRN PRN Reason: Pain, Mild (1-3) Last Admin: 05/04/17 22:10 Dose: 650 mg Alprazolam (Xanax) 0.25 mg PO ONCE [facility] Stop: 05/09/17 21:01 Last Admin: 05/01/17 22:58 Dose: 0.25 mg Ascorbic Acid (Vitamin C 500 Mg Tab) 500 mg PO DAILY [facility] Last Admin: 05/06/17 09:29 Dose: Not Given Diphenhydramine HCl (Benadryl) 25 mg IVP Q8 PRN PRN Reason: Itching / Pruritus Enoxaparin Sodium (Lovenox) 40 mg SC Q12 [facility] Last Admin: 05/06/17 09:28 Dose: 40 mg Fluconazole (Diflucan Iv 200 Mg/100 Ml Ns) 100 mls @ 100 mls/hr IVPB DAILY [facility] Last Admin: 05/06/17 09:26 Dose: 100 mls/hr Fat Emulsion Intravenous (Intralipid 20%) 250 mls @ 42 mls/hr IV ThSa@1800 [facility] Stop: 05/06/17 23:58 Last Admin: 05/04/17 19:00 Dose: 42 mls/hr Meropenem 500 mg/ Sodium (Chloride) 100 mls @ 100 mls/hr IVPB Q8H [facility] Last Admin: 05/06/17 07:23 Dose: 100 mls/hr Sodium Chloride (Sodium Chloride 0.9%) 1,000 mls @ 75 mls/hr IV .[id number] [facility] Last Admin: 05/05/17 23:00 Dose: Not Given Insulin Aspart (Novolog) 0 unit SC ACHS [facility] PRN Reason: Protocol Last Admin: 05/06/17 07:19 Dose: Not Given Lactobacillus Acidophilus (Bacid Acidophilus) 1 cap PO DAILY [facility] Last Admin: 05/06/17 09:28 Dose: Not Given Loperamide HCl (Imodium) 2 mg PO QID PRN PRN Reason: Diarrhea Last Admin: 05/01/17 22:58 Dose: 2 mg Magnesium Oxide (Mag-Ox) 400 mg PO DAILY [facility] Last Admin: 05/06/17 09:29 Dose: Not Given Metoclopramide HCl (Reglan) 10 mg IVP ACHS [facility] Last Admin: 05/06/17 07:23 Dose: 10 mg Multivitamins (Hexavitamin) 1 tab PO DAILY [facility] Last Admin: 05/06/17 09:28 Dose: Not Given Petrolatum (Desitin Original) 0 gm TOP TID PRN PRN Reason: Rash Potassium Chloride (K-Dur 20 Meq Er Tab) 40 meq PO DAILY [facility] Last Admin: 05/06/17 09:28 Dose: Not Given Tramadol HCl (Ultram) 25 mg PO TID [facility] Last Admin: 05/06/17 09:29 Dose: Not Given Zinc Sulfate (Zinc Sulfate 220 Mg Cap) 220 mg PO DAILY [facility] Last Admin: 05/06/17 09:30 Dose: Not Given - Labs Labs: 05/04/17 07:16 05/04/17 07:16 PT 11.9 SECONDS (9.7-12.2) 04/13/17 06:28 INR 1.1 04/13/17 06:28 APTT 27 SECONDS (21-34) 04/13/17 06:28 - Constitutional Appears: Well - Head Exam Head Exam: ATRAUMATIC, NORMAL INSPECTION, NORMOCEPHALIC - Eye Exam Eye Exam: EOMI, Normal appearance, PERRL Pupil Exam: NORMAL ACCOMODATION, PERRL - ENT Exam ENT Exam: Mucous Membranes Moist, Normal Exam - Neck Exam Neck Exam: Full ROM, Normal Inspection. absent: Lymphadenopathy - Respiratory Exam Respiratory Exam: Decreased Breath Sounds - Cardiovascular Exam Cardiovascular Exam: REGULAR RHYTHM, +S1, +S2 - GI/Abdominal Exam GI & Abdominal Exam: Soft, Diminished Bowel Sounds - Rectal Exam Rectal Exam: Deferred - Back Exam Back Exam: NORMAL INSPECTION - Neurological Exam Neurological Exam: Alert, Awake, CN II-XII Intact, Normal Gait, Oriented x3 - Psychiatric Exam Psychiatric exam: Normal Affect, Normal Mood - Skin Skin Exam: Dry, Intact, Normal Color, Warm Assessment and Plan (1) Colonic fistula Status: Acute (2) Displacement of Mckeon catheter Status: Acute - Assessment and Plan (Free Text) Plan: Osteomy device leaking from lateral position and wound VAC is closed. Patient examined. Diffuse abdominal pain present. Continue broad-spectrum antibiotic. Continue insulin, other antidiabetic medications, antihypertensive medications and supportive care.
[2017-05-06] MEDS ORDERED: Fat Emulsion 20% IV 250 ML IV ONE (18:00)
[2017-05-06] MEDS ORDERED: TPN #1 IV ONE (18:00)
[2017-05-07] MEDS: Meropenem 500 MG in Sodium Chloride 0.9% 100 ML IVPB SCH ×3 (00:28→17:00)
[2017-05-07] MEDS ORDERED: TPN #2 IV ONE (06:00)
[2017-05-07] MEDS ORDERED: (Novolog) Insulin Aspart, Recombinant 100 u/ml 10 ml vial SC ONE (09:57)
[2017-05-07] MEDS: Lactobacillus Acidophilus 500 MU Cap PO SCH (10:00)
[2017-05-07] MEDS: Enoxaparin 40 mg Syringe SC SCH ×2 (10:12→21:41)
[2017-05-07] MEDS: Potassium Chloride 20 mEq ER Tab PO SCH (10:16)
[2017-05-07] MEDS: Magnesium Oxide 400 mg Tab UD PO SCH (10:16)
[2017-05-07] MEDS: Multiple Vitamins Tab PO SCH (10:16)
[2017-05-07] MEDS: Tramadol 25 mg PO SCH ×4 (10:17→18:17)
[2017-05-07] MEDS: Fluconazole IV 200mg/100 ml NS 100 ML IVPB SCH (12:25)
--- NOTE | 2017-05-07 13:34 | PCM.URO ---
Urology Progress Note - Subjective Abdominal Pain: No (more comfortable) Hematuria: No Chest Pain: No Fever & Chills: No - Objective Lab Studies: Reviewed (anemia uti) Lab Results Last 24 Hours: Laboratory Results - last 24 hr 05/06/17 05/06/17 05/07/17 16:37 22:04 06:28 POC Glucose (mg/dL) 146 H 133 H 351 H 05/07/17 11:29 POC Glucose (mg/dL) 166 H Intake & Output: Intake & Output 05/06/17 05/07/17 05/07/17 18:59 06:59 18:59 Intake Total 200 858 581 Output Total 465 795 Balance -265 63 581 Weight 75 lb Intake: Intake, IV Amount 100 325 Right Upper arm 100 325 Oral 100 200 TPN/PPN 83 581 Lipid 250 Output: Gastric Amount 50 Right 50 Drainage 465 595 Abdomen 5 80 Left 110 Left Abdomen 160 155 Right 300 250 Urine 0 150 Urethral (Mckeon) 0 150 Vital Signs: Vital Signs - 24 hr 05/06/17 05/06/17 05/06/17 15:00 21:00 23:35 Temperature 97.5 F L 98.2 F 98.5 F Pulse Rate 100 H 100 H 112 H Respiratory 20 20 20 Rate Blood Pressure 98/59 L 98/60 L 91/55 L O2 Sat by Pulse 99 98 99 Oximetry 05/07/17 05/07/17 00:00 04:30 Temperature 99.0 F 98.8 F Pulse Rate 88 69 Respiratory 18 20 Rate Blood Pressure 196/71 H 96/61 L O2 Sat by Pulse 95 Oximetry - Physical Exam Abdominal Exam: Soft, Non-Tender, Non-Distended Back: No CVA Tenderness (NT's in place) - Plan Additional Information: imp: bilat nephrostomy tubes. s/p repair of colovesical fistula. Rec: Check when NT were last changed or inserted. Nehrostogram and poss change of NT. Cystogram. Antibiotic Rx - Date & Time of Note Date: 05/07/17 Time: 13:34
--- NOTE | 2017-05-07 13:49 | OP ---
PROCEDURE DATE: 05/03/2017 PREOPERATIVE DIAGNOSES: 1. Midline abdominal wound with necrosis. 2. Ileostomy site skin ulceration and excoriation. 3. Abdominal wall cellulitis. 4. Severe malnutrition. POSTOPERATIVE DIAGNOSES: 1. Midline abdominal wound with necrosis. 2. Ileostomy site skin ulceration and excoriation. 3. Abdominal wall cellulitis. 4. Severe malnutrition. PROCEDURES DONE: 1. Abdominal wall as well as the wound debridement of the midline. 2. Negative pressure wound VAC therapy. 3. Ileostomy site wound care. PROCEDURE DONE BY: Sumeet Cabral MD [employer]: ASH Snyder; the wound care Yasir was also called intraoperatively. COMPLICATIONS: None. PATHOLOGY: The pus was sent for culture and sensitivity as well as debrided tissue. DRAINS: None. INTRAOPERATIVE FINDINGS: The patient had severe excoriation as well as ulceration of the abdominal wall with cellulitis and there was multiple small wounds surrounding the ileostomy as well as the midline abdominal wound had yellow slough in the upper as well as lower abdomen and the patient also had excoriation on the left side of the abdominal wall as well as the right posterior flank. DESCRIPTION OF PROCEDURE: On intraoperative steps, this is a 61-year-old female, who underwent small bowel resection as well as ileostomy recently and the patient had severe problem with ileostomy and the patient had multiple leaks due to very small abdominal wall size and the patient also had excoriation, ulceration, and midline wound had necrosis, and the patient was consented for abdominal wall wound debridement as well as ileostomy care and the patient was brought to the OR, placed supine on the operative table. After induction of the anesthesia, the abdomen was prepped and draped in usual sterile fashion. First ileostomy site excoriation was addressed and the layer of stoma paste was placed with powder and DuoDERM was and placed and using the stoma adhesive the ileostomy bag was placed and after that abdominal wall wound was prepped and draped and the wound debridement was done, and the pus was also sent for the culture and sensitivity and the upper wound was approximately 3 x 4 cm and lower wound was approximately 2 x 4 cm and both the wounds were packed with wound VAC foam and connected to the suction and after negative pressure wound VAC therapy the dry sterile dressing was applied and the patient was sent to the postanesthesia care unit in stable condition. Sumeet Cabral MD [facility] # [id number]
--- NOTE | 2017-05-07 13:52 | CP.PCM.PN ---
Subjective - Date & Time of Evaluation Date of Evaluation: 05/07/17 Time of Evaluation: 09:00 - Subjective Subjective: cultures noted denies fever drains in place iv rx renewed Objective - Vital Signs/Intake and Output Vital Signs (last 24 hours): Temp Pulse Resp BP Pulse Ox 98.8 F 69 20 96/61 L 95 05/07/17 04:30 05/07/17 04:30 05/07/17 04:30 05/07/17 04:30 05/07/17 00:00 Intake and Output: 05/07/17 05/07/17 06:59 18:59 Intake Total 858 581 Output Total 795 Balance 63 581 - Medications Medications: Current Medications Acetaminophen (Tylenol 325mg Tab) 650 mg PO Q6 PRN PRN Reason: Pain, Mild (1-3) Last Admin: 05/04/17 22:10 Dose: 650 mg Alprazolam (Xanax) 0.25 mg PO ONCE [facility] Stop: 05/09/17 21:01 Last Admin: 05/01/17 22:58 Dose: 0.25 mg Ascorbic Acid (Vitamin C 500 Mg Tab) 500 mg PO DAILY [facility] Last Admin: 05/07/17 10:17 Dose: 500 mg Enoxaparin Sodium (Lovenox) 40 mg SC Q12 [facility] Last Admin: 05/07/17 10:12 Dose: 40 mg Fluconazole (Diflucan Iv 200 Mg/100 Ml Ns) 100 mls @ 100 mls/hr IVPB DAILY [facility] Last Admin: 05/07/17 12:25 Dose: 100 mls/hr Meropenem 500 mg/ Sodium (Chloride) 100 mls @ 100 mls/hr IVPB Q8H [facility] Last Admin: 05/07/17 09:00 Dose: 100 mls/hr Sodium Chloride (Sodium Chloride 0.9%) 1,000 mls @ 75 mls/hr IV .[id number] [facility] Last Admin: 05/05/17 23:00 Dose: Not Given Chromium/Copper/Manganese/Zinc 1 ml/ Heparin Sodium (Porcine ) 1,000 units/ Amino Acids/Electrolytes/Dextrose 1,002 mls @ 83 mls/hr IV .Q12H5M [facility] Stop: 05/07/17 18:04 Heparin Sodium (Porcine) 1,000 units/ Chromium/Copper/Manganese/Zinc 1 ml/ Amino Acids/Electrolytes/Dextrose 1,002 mls @ 83 mls/hr IV .Q12H5M [facility] Stop: 05/08/17 06:04 Chromium/Copper/Manganese/Zinc 1 ml/ Heparin Sodium (Porcine ) 1,000 units/ Amino Acids/Electrolytes/Dextrose 1,002 mls @ 83 mls/hr IV .Q12H5M [facility] Stop: 05/08/17 18:04 Fat Emulsion Intravenous (Intralipid 20%) 250 mls @ 83 mls/hr IV DAILY [facility] Stop: 05/07/17 21:00 Insulin Human Regular (Novolin R) 0 unit SC ACHS [facility] PRN Reason: Protocol Lactobacillus Acidophilus (Bacid Acidophilus) 1 cap PO DAILY [facility] Last Admin: 05/07/17 10:00 Dose: Not Given Loperamide HCl (Imodium) 2 mg PO QID PRN PRN Reason: Diarrhea Last Admin: 05/01/17 22:58 Dose: 2 mg Magnesium Oxide (Mag-Ox) 400 mg PO DAILY [facility] Last Admin: 05/07/17 10:16 Dose: 400 mg Metoclopramide HCl (Reglan) 10 mg IVP ACHS [facility] Last Admin: 05/07/17 12:29 Dose: 10 mg Multivitamins (Hexavitamin) 1 tab PO DAILY [facility] Last Admin: 05/07/17 10:16 Dose: 1 tab Petrolatum (Desitin Original) 0 gm TOP TID PRN PRN Reason: Rash Potassium Chloride (K-Dur 20 Meq Er Tab) 40 meq PO DAILY [facility] Last Admin: 05/07/17 10:16 Dose: 40 meq Tramadol HCl (Ultram) 25 mg PO TID [facility] Last Admin: 05/07/17 10:17 Dose: Not Given Zinc Sulfate (Zinc Sulfate 220 Mg Cap) 220 mg PO DAILY [facility] Last Admin: 05/07/17 10:17 Dose: 220 mg - Labs Labs: 05/04/17 07:16 05/04/17 07:16 PT 11.9 SECONDS (9.7-12.2) 04/13/17 06:28 INR 1.1 04/13/17 06:28 APTT 27 SECONDS (21-34) 04/13/17 06:28 - Constitutional Appears: Non-toxic, Cachectic - Head Exam Head Exam: NORMOCEPHALIC - Eye Exam Eye Exam: PERRL - ENT Exam ENT Exam: Mucous Membranes Dry - Neck Exam Neck Exam: absent: Lymphadenopathy - Respiratory Exam Respiratory Exam: Decreased Breath Sounds - Cardiovascular Exam Cardiovascular Exam: REGULAR RHYTHM - GI/Abdominal Exam GI & Abdominal Exam: Distended - Rectal Exam Rectal Exam: Deferred, NORMAL INSPECTION - Exam Exam: NORMAL INSPECTION - Extremities Exam Extremities Exam: absent: Pedal Edema - Back Exam Back Exam: absent: CVA tenderness (L), CVA tenderness (R) - Neurological Exam Neurological Exam: Alert, Awake Assessment and Plan (1) Colonic fistula Status: Acute (2) Displacement of Mckeon catheter Status: Acute - Assessment and Plan (Free Text) Plan: cont rx
[2017-05-07] MEDS: (Novolin R) Insulin Human Regular 100 units/ml vial SC ONE ×2 (13:53→13:56)
[2017-05-07] MEDS: Sodium Chloride 0.9% 1,000 ML IV SCH (15:00)
--- NOTE | 2017-05-07 15:54 | CP.PCM.PN ---
Subjective - Date & Time of Evaluation Date of Evaluation: 05/07/17 Time of Evaluation: 09:20 - Subjective Subjective: clinically same Objective - Vital Signs/Intake and Output Vital Signs (last 24 hours): Temp Pulse Resp BP Pulse Ox 98.8 F 69 20 96/61 L 95 05/07/17 04:30 05/07/17 04:30 05/07/17 04:30 05/07/17 04:30 05/07/17 00:00 Intake and Output: 05/07/17 05/07/17 06:59 18:59 Intake Total 858 581 Output Total 795 Balance 63 581 - Medications Medications: Current Medications Acetaminophen (Tylenol 325mg Tab) 650 mg PO Q6 PRN PRN Reason: Pain, Mild (1-3) Last Admin: 05/04/17 22:10 Dose: 650 mg Alprazolam (Xanax) 0.25 mg PO ONCE [facility] Stop: 05/09/17 21:01 Last Admin: 05/01/17 22:58 Dose: 0.25 mg Ascorbic Acid (Vitamin C 500 Mg Tab) 500 mg PO DAILY [facility] Last Admin: 05/07/17 10:17 Dose: 500 mg Enoxaparin Sodium (Lovenox) 40 mg SC Q12 [facility] Last Admin: 05/07/17 10:12 Dose: 40 mg Fluconazole (Diflucan Iv 200 Mg/100 Ml Ns) 100 mls @ 100 mls/hr IVPB DAILY [facility] Last Admin: 05/07/17 12:25 Dose: 100 mls/hr Meropenem 500 mg/ Sodium (Chloride) 100 mls @ 100 mls/hr IVPB Q8H [facility] Last Admin: 05/07/17 09:00 Dose: 100 mls/hr Sodium Chloride (Sodium Chloride 0.9%) 1,000 mls @ 75 mls/hr IV .[id number] [facility] Last Admin: 05/05/17 23:00 Dose: Not Given Chromium/Copper/Manganese/Zinc 1 ml/ Heparin Sodium (Porcine ) 1,000 units/ Amino Acids/Electrolytes/Dextrose 1,002 mls @ 83 mls/hr IV .Q12H5M ONE Stop: 05/07/17 18:04 Heparin Sodium (Porcine) 1,000 units/ Chromium/Copper/Manganese/Zinc 1 ml/ Amino Acids/Electrolytes/Dextrose 1,002 mls @ 83 mls/hr IV .Q12H5M [facility] Stop: 05/08/17 06:04 Chromium/Copper/Manganese/Zinc 1 ml/ Heparin Sodium (Porcine ) 1,000 units/ Amino Acids/Electrolytes/Dextrose 1,002 mls @ 83 mls/hr IV .Q12H5M [facility] Stop: 05/08/17 18:04 Fat Emulsion Intravenous (Intralipid 20%) 250 mls @ 83 mls/hr IV DAILY [facility] Stop: 05/07/17 21:00 Insulin Human Regular (Novolin R) 0 unit SC [facility] PRN Reason: Protocol Lactobacillus Acidophilus (Bacid Acidophilus) 1 cap PO DAILY [facility] Last Admin: 05/07/17 10:00 Dose: Not Given Loperamide HCl (Imodium) 2 mg PO QID PRN PRN Reason: Diarrhea Last Admin: 05/01/17 22:58 Dose: 2 mg Magnesium Oxide (Mag-Ox) 400 mg PO DAILY [facility] Last Admin: 05/07/17 10:16 Dose: 400 mg Metoclopramide HCl (Reglan) 10 mg IVP [facility] Last Admin: 05/07/17 12:29 Dose: 10 mg Multivitamins (Hexavitamin) 1 tab PO DAILY [facility] Last Admin: 05/07/17 10:16 Dose: 1 tab Petrolatum (Desitin Original) 0 gm TOP TID PRN PRN Reason: Rash Potassium Chloride (K-Dur 20 Meq Er Tab) 40 meq PO DAILY [facility] Last Admin: 05/07/17 10:16 Dose: 40 meq Tramadol HCl (Ultram) 25 mg PO TID [facility] Last Admin: 05/07/17 14:55 Dose: Not Given Zinc Sulfate (Zinc Sulfate 220 Mg Cap) 220 mg PO DAILY [facility] Last Admin: 05/07/17 10:17 Dose: 220 mg - Labs Labs: 05/04/17 07:16 05/04/17 07:16 PT 11.9 SECONDS (9.7-12.2) 04/13/17 06:28 INR 1.1 04/13/17 06:28 APTT 27 SECONDS (21-34) 04/13/17 06:28 - Back Exam Back Exam: NORMAL INSPECTION - Neurological Exam Neurological Exam: Alert, Awake, CN II-XII Intact, Normal Gait, Oriented x3 - Psychiatric Exam Psychiatric exam: Normal Affect, Normal Mood - Skin Skin Exam: Dry, Intact, Normal Color, Warm Assessment and Plan (1) Colonic fistula Status: Acute (2) Displacement of Mckeon catheter Status: Acute - Assessment and Plan (Free Text) Plan: Patient examined. Diffuse abdominal pain present. Continue broad-spectrum antibiotic. Continue insulin, other antidiabetic medications, antihypertensive medications and supportive care.
--- NOTE | 2017-05-07 16:15 | CP.PCM.PN ---
<Vikki Sims - Last Filed: 05/07/17 16:17> Subjective - Date & Time of Evaluation Date of Evaluation: 05/07/17 Time of Evaluation: 07:00 - Subjective Subjective: GENERAL SURGERY PROGRESS NOTE FOR DR. CABRAL Patient seen and examined at bedside. Stool still leaking from ostomy site despite numerous attempts with various methods yesterday and last night to fix it. Wound vac not working, attempted to reinforce but unsuccessful. Patient would not let me attempt any more. Objective - Vital Signs/Intake and Output Vital Signs (last 24 hours): Temp Pulse Resp BP Pulse Ox 98.8 F 69 20 96/61 L 95 05/07/17 04:30 05/07/17 04:30 05/07/17 04:30 05/07/17 04:30 05/07/17 00:00 Intake and Output: 05/07/17 05/07/17 06:59 18:59 Intake Total 858 581 Output Total 795 Balance 63 581 - Medications Medications: Current Medications Acetaminophen (Tylenol 325mg Tab) 650 mg PO Q6 PRN PRN Reason: Pain, Mild (1-3) Last Admin: 05/04/17 22:10 Dose: 650 mg Alprazolam (Xanax) 0.25 mg PO ONCE [facility] Stop: 05/09/17 21:01 Last Admin: 05/01/17 22:58 Dose: 0.25 mg Ascorbic Acid (Vitamin C 500 Mg Tab) 500 mg PO DAILY [facility] Last Admin: 05/07/17 10:17 Dose: 500 mg Enoxaparin Sodium (Lovenox) 40 mg SC Q12 [facility] Last Admin: 05/07/17 10:12 Dose: 40 mg Fluconazole (Diflucan Iv 200 Mg/100 Ml Ns) 100 mls @ 100 mls/hr IVPB DAILY [facility] Last Admin: 05/07/17 12:25 Dose: 100 mls/hr Meropenem 500 mg/ Sodium (Chloride) 100 mls @ 100 mls/hr IVPB Q8H [facility] Last Admin: 05/07/17 09:00 Dose: 100 mls/hr Sodium Chloride (Sodium Chloride 0.9%) 1,000 mls @ 75 mls/hr IV .[id number] [facility] Last Admin: 05/05/17 23:00 Dose: Not Given Chromium/Copper/Manganese/Zinc 1 ml/ Heparin Sodium (Porcine ) 1,000 units/ Amino Acids/Electrolytes/Dextrose 1,002 mls @ 83 mls/hr IV .Q12H5M ONE Stop: 05/07/17 18:04 Heparin Sodium (Porcine) 1,000 units/ Chromium/Copper/Manganese/Zinc 1 ml/ Amino Acids/Electrolytes/Dextrose 1,002 mls @ 83 mls/hr IV .Q12H5M ONE Stop: 05/08/17 06:04 Chromium/Copper/Manganese/Zinc 1 ml/ Heparin Sodium (Porcine ) 1,000 units/ Amino Acids/Electrolytes/Dextrose 1,002 mls @ 83 mls/hr IV .Q12H5M ONE Stop: 05/08/17 18:04 Fat Emulsion Intravenous (Intralipid 20%) 250 mls @ 83 mls/hr IV DAILY [facility] Stop: 05/07/17 21:00 Insulin Human Regular (Novolin R) 0 unit SC ACHS [facility] PRN Reason: Protocol Lactobacillus Acidophilus (Bacid Acidophilus) 1 cap PO DAILY [facility] Last Admin: 05/07/17 10:00 Dose: Not Given Loperamide HCl (Imodium) 2 mg PO QID PRN PRN Reason: Diarrhea Last Admin: 05/01/17 22:58 Dose: 2 mg Magnesium Oxide (Mag-Ox) 400 mg PO DAILY [facility] Last Admin: 05/07/17 10:16 Dose: 400 mg Metoclopramide HCl (Reglan) 10 mg IVP ACHS [facility] Last Admin: 05/07/17 12:29 Dose: 10 mg Multivitamins (Hexavitamin) 1 tab PO DAILY [facility] Last Admin: 05/07/17 10:16 Dose: 1 tab Petrolatum (Desitin Original) 0 gm TOP TID PRN PRN Reason: Rash Potassium Chloride (K-Dur 20 Meq Er Tab) 40 meq PO DAILY [facility] Last Admin: 05/07/17 10:16 Dose: 40 meq Tramadol HCl (Ultram) 25 mg PO TID [facility] Last Admin: 05/07/17 14:55 Dose: Not Given Zinc Sulfate (Zinc Sulfate 220 Mg Cap) 220 mg PO DAILY [facility] Last Admin: 05/07/17 10:17 Dose: 220 mg - Labs Labs: 05/04/17 07:16 05/04/17 07:16 PT 11.9 SECONDS (9.7-12.2) 10/05/17 06:28 INR 1.1 04/13/17 06:28 APTT 27 SECONDS (21-34) 04/13/17 06:28 - Constitutional Appears: Non-toxic, No Acute Distress, Cachectic, Chronically Ill - Respiratory Exam Respiratory Exam: NORMAL BREATHING PATTERN. absent: Respiratory Distress - Cardiovascular Exam Cardiovascular Exam: +S1, +S2 - GI/Abdominal Exam GI & Abdominal Exam: Soft, Tenderness (tenderness around incision site, drain and ostomy). absent: Distended, Firm, Guarding, Rigid Additional comments: Ostomy with liquid stool Wound vac not functioning - Neurological Exam Neurological Exam: Alert, Awake Assessment and Plan - Assessment and Plan (Free Text) Assessment: 61F POD#4 s/p debridement of midline incision w/ wound vac placement and ostomy care; POD#25 s/p ex-lap, small bowel resection w/ ileostomy, bladder repair, appendectomy - Numerous attempts were made to control stool and prevent leaking. Unsuccessful. - Wound vac not working - Patient refusing further attempts - Will take patient to OR tomorrow for abdominal wound debridement, ileostomy care, and wound vac change - NPO past midnight - Continue PPN - Per urology: patient needs cystogram and nephrostogram to define anatomy and may need nephrostomy tube replacement. Will discuss with IR tomorrow - Discussed plan with Dr. Misha Sims PGY-3 <Sumeet Cabral - Last Filed: 05/07/17 17:35> Objective - Vital Signs/Intake and Output Vital Signs (last 24 hours): Temp Pulse Resp BP Pulse Ox 98.1 F 106 H 20 98/59 L 99 05/07/17 16:00 05/07/17 16:00 05/07/17 16:00 05/07/17 16:00 05/07/17 16:00 Intake and Output: 05/07/17 05/07/17 06:59 18:59 Intake Total 858 581 Output Total 795 Balance 63 581 - Medications Medications: Current Medications Acetaminophen (Tylenol 325mg Tab) 650 mg PO Q6 PRN PRN Reason: Pain, Mild (1-3) Last Admin: 05/04/17 22:10 Dose: 650 mg Alprazolam (Xanax) 0.25 mg PO ONCE [facility] Stop: 05/09/17 21:01 Last Admin: 05/01/17 22:58 Dose: 0.25 mg Ascorbic Acid (Vitamin C 500 Mg Tab) 500 mg PO DAILY [facility] Last Admin: 05/07/17 10:17 Dose: 500 mg Enoxaparin Sodium (Lovenox) 40 mg SC Q12 [facility] Last Admin: 05/07/17 10:12 Dose: 40 mg Fluconazole (Diflucan Iv 200 Mg/100 Ml Ns) 100 mls @ 100 mls/hr IVPB DAILY [facility] Last Admin: 05/07/17 12:25 Dose: 100 mls/hr Meropenem 500 mg/ Sodium (Chloride) 100 mls @ 100 mls/hr IVPB Q8H [facility] Last Admin: 05/07/17 09:00 Dose: 100 mls/hr Sodium Chloride (Sodium Chloride 0.9%) 1,000 mls @ 75 mls/hr IV .[id number] [facility] Last Admin: 05/05/17 23:00 Dose: Not Given Chromium/Copper/Manganese/Zinc 1 ml/ Heparin Sodium (Porcine ) 1,000 units/ Amino Acids/Electrolytes/Dextrose 1,002 mls @ 83 mls/hr IV .Q12H5M ONE Stop: 05/07/17 18:04 Heparin Sodium (Porcine) 1,000 units/ Chromium/Copper/Manganese/Zinc 1 ml/ Amino Acids/Electrolytes/Dextrose 1,002 mls @ 83 mls/hr IV .Q12H5M ONE Stop: 05/08/17 06:04 Chromium/Copper/Manganese/Zinc 1 ml/ Heparin Sodium (Porcine ) 1,000 units/ Amino Acids/Electrolytes/Dextrose 1,002 mls @ 83 mls/hr IV .Q12H5M [facility] Stop: 05/08/17 18:04 Fat Emulsion Intravenous (Intralipid 20%) 250 mls @ 83 mls/hr IV DAILY [facility] Stop: 05/07/17 21:00 Insulin Human Regular (Novolin R) 0 unit SC ACHS [facility] PRN Reason: Protocol Lactobacillus Acidophilus (Bacid Acidophilus) 1 cap PO DAILY [facility] Last Admin: 05/07/17 10:00 Dose: Not Given Loperamide HCl (Imodium) 2 mg PO QID PRN PRN Reason: Diarrhea Last Admin: 05/01/17 22:58 Dose: 2 mg Magnesium Oxide (Mag-Ox) 400 mg PO DAILY [facility] Last Admin: 05/07/17 10:16 Dose: 400 mg Metoclopramide HCl (Reglan) 10 mg IVP ACHS [facility] Last Admin: 05/07/17 12:29 Dose: 10 mg Multivitamins (Hexavitamin) 1 tab PO DAILY [facility] Last Admin: 05/07/17 10:16 Dose: 1 tab Petrolatum (Desitin Original) 0 gm TOP TID PRN PRN Reason: Rash Potassium Chloride (K-Dur 20 Meq Er Tab) 40 meq PO DAILY [facility] Last Admin: 05/07/17 10:16 Dose: 40 meq Tramadol HCl (Ultram) 25 mg PO TID [facility] Last Admin: 05/07/17 16:39 Dose: 25 mg Zinc Sulfate (Zinc Sulfate 220 Mg Cap) 220 mg PO DAILY [facility] Last Admin: 05/07/17 10:17 Dose: 220 mg - Labs Labs: 05/04/17 07:16 05/04/17 07:16 PT 11.9 SECONDS (9.7-12.2) 04/13/17 06:28 INR 1.1 04/13/17 06:28 APTT 27 SECONDS (21-34) 04/13/17 06:28 Attending/Attestation - Attestation I have personally seen and examined this patient.: Yes I have fully participated in the care of the patient.: Yes I have reviewed all pertinent clinical information, including history, physical exam and plan: Yes Notes (Text): 05/07/17 17:32 Pt was seen and examined at bedside Agree with above note and assessment Ileostomy is leaking into abdominal wound Severe skin excoriation Pt is in severe pain Pt is refusing dressing change at bedside OR for Redebridement of abdominal wound and wound vac placement and ileostomy care Consent NPO, IVF, Hold Lovenox tomorrow an Plan d.w pt in detail Risk and benefit explained in detail
[2017-05-07] MEDS ORDERED: Fat Emulsion 20% IV 250 ML IV ONE (18:00)
[2017-05-07] MEDS ORDERED: TPN #3 IV ONE (18:00)
[2017-05-07] MEDS: (Novolin R) Insulin Human Regular 100 units/ml vial SC SCH ×2 (18:14→22:39)
[2017-05-08] MEDS: Meropenem 500 MG in Sodium Chloride 0.9% 100 ML IVPB SCH ×2 (01:01→07:48)
[2017-05-08] MEDS ORDERED: TPN #4 IV ONE (06:00)
[2017-05-08] MEDS: (Novolin R) Insulin Human Regular 100 units/ml vial SC SCH ×4 (07:48→22:00)
[2017-05-08] MEDS: Lactobacillus Acidophilus 500 MU Cap PO SCH (09:26)
[2017-05-08] MEDS: Fluconazole IV 200mg/100 ml NS 100 ML IVPB SCH (09:26)
[2017-05-08] MEDS: Multiple Vitamins Tab PO SCH (09:26)
[2017-05-08] MEDS: Magnesium Oxide 400 mg Tab UD PO SCH (09:27)
[2017-05-08] MEDS: Tramadol 25 mg PO SCH ×2 (09:27→19:34)
[2017-05-08] MEDS: Potassium Chloride 20 mEq ER Tab PO SCH (09:27)
--- NOTE | 2017-05-08 10:53 | CP.PCM.PN ---
<Killian Sierra - Last Filed: 05/08/17 10:45> Subjective - Date & Time of Evaluation Date of Evaluation: 05/08/17 Time of Evaluation: 10:45 - Subjective Subjective: Progress note. Service for Dr. Higgins. Pt seen and examined at bedside. No acute distress. No events overnight. OR today. Objective - Vital Signs/Intake and Output Vital Signs (last 24 hours): Temp Pulse Resp BP Pulse Ox 99.1 F 124 H 18 92/64 L 95 05/08/17 07:20 05/08/17 07:20 05/08/17 07:20 05/08/17 07:20 05/08/17 07:20 Intake and Output: 05/08/17 05/08/17 06:59 18:59 Intake Total 1457 Output Total 1460 Balance -3 - Medications Medications: Current Medications Acetaminophen (Tylenol 325mg Tab) 650 mg PO Q6 PRN PRN Reason: Pain, Mild (1-3) Last Admin: 05/04/17 22:10 Dose: 650 mg Alprazolam (Xanax) 0.25 mg PO ONCE [facility] Stop: 05/09/17 21:01 Last Admin: 05/01/17 22:58 Dose: 0.25 mg Ascorbic Acid (Vitamin C 500 Mg Tab) 500 mg PO DAILY [facility] Last Admin: 05/08/17 09:27 Dose: Not Given Enoxaparin Sodium (Lovenox) 40 mg SC Q12 [facility] Last Admin: 05/07/17 21:41 Dose: 40 mg Fluconazole (Diflucan Iv 200 Mg/100 Ml Ns) 100 mls @ 100 mls/hr IVPB DAILY [facility] Last Admin: 05/08/17 09:26 Dose: 100 mls/hr Meropenem 500 mg/ Sodium (Chloride) 100 mls @ 100 mls/hr IVPB Q8H [facility] Last Admin: 05/08/17 07:48 Dose: 100 mls/hr Sodium Chloride (Sodium Chloride 0.9%) 1,000 mls @ 75 mls/hr IV .[id number] [facility] Last Admin: 05/07/17 15:00 Dose: Not Given Chromium/Copper/Manganese/Zinc 1 ml/ Heparin Sodium (Porcine ) 1,000 units/ Amino Acids/Electrolytes/Dextrose 1,002 mls @ 83 mls/hr IV .Q12H5M ONE Stop: 05/08/17 18:04 Last Admin: 05/08/17 07:51 Dose: 83 mls/hr Insulin Human Regular (Novolin R) 0 unit SC ACHS [facility] PRN Reason: Protocol Last Admin: 05/08/17 07:48 Dose: 4 unit Lactobacillus Acidophilus (Bacid Acidophilus) 1 cap PO DAILY [facility] Last Admin: 05/08/17 09:26 Dose: Not Given Loperamide HCl (Imodium) 2 mg PO QID PRN PRN Reason: Diarrhea Last Admin: 05/01/17 22:58 Dose: 2 mg Magnesium Oxide (Mag-Ox) 400 mg PO DAILY [facility] Last Admin: 05/08/17 09:27 Dose: Not Given Metoclopramide HCl (Reglan) 10 mg IVP ACHS [facility] Last Admin: 05/08/17 07:59 Dose: 10 mg Multivitamins (Hexavitamin) 1 tab PO DAILY [facility] Last Admin: 05/08/17 09:26 Dose: Not Given Petrolatum (Desitin Original) 0 gm TOP TID PRN PRN Reason: Rash Potassium Chloride (K-Dur 20 Meq Er Tab) 40 meq PO DAILY [facility] Last Admin: 05/08/17 09:27 Dose: Not Given Tramadol HCl (Ultram) 25 mg PO TID [facility] Last Admin: 05/08/17 09:27 Dose: Not Given Zinc Sulfate (Zinc Sulfate 220 Mg Cap) 220 mg PO DAILY [facility] Last Admin: 05/08/17 09:27 Dose: Not Given - Labs Labs: 05/04/17 07:16 05/04/17 07:16 PT 11.9 SECONDS (9.7-12.2) 04/13/17 06:28 INR 1.1 04/13/17 06:28 APTT 27 SECONDS (21-34) 04/13/17 06:28 - Constitutional Appears: Non-toxic, No Acute Distress - Head Exam Head Exam: ATRAUMATIC, NORMAL INSPECTION, NORMOCEPHALIC - Eye Exam Eye Exam: EOMI - ENT Exam ENT Exam: Mucous Membranes Moist - Neck Exam Neck Exam: Full ROM, Normal Inspection - Respiratory Exam Respiratory Exam: NORMAL BREATHING PATTERN. absent: Respiratory Distress - Cardiovascular Exam Cardiovascular Exam: +S1, +S2 - Extremities Exam Extremities Exam: Full ROM, Normal Inspection - Neurological Exam Neurological Exam: Alert, Awake, Oriented x3 - Psychiatric Exam Psychiatric exam: Normal Affect, Normal Mood - Skin Skin Exam: Dry, Intact, Normal Color, Warm Assessment and Plan - Assessment and Plan (Free Text) Assessment: This is a 61 yo female with 1. Post op day 5- debridement of midline incision with wound vac -sx consult. recs appreciated -continue tylenol -NS 75 cc/hr -tramadol TID -zinc sulfate 2. S/P ex lap small bowel resection with ileostomy, bladder repair, appendectomy -may need cystogram, nephrogram -OR today -IV fluconazole -IV meropenem -mg ox 400 PO daily -MVs 3. hx of DM -ISS 4. GI/DVT -protonix -lovenox <Tonya Higgins S - Last Filed: 05/18/17 17:11> Objective - Vital Signs/Intake and Output Vital Signs (last 24 hours): Temp Pulse Resp BP Pulse Ox 97.9 F 115 H 18 99/61 L 96 05/18/17 08:42 05/18/17 08:42 05/18/17 08:42 05/18/17 08:42 05/18/17 08:42 Intake and Output: 05/18/17 05/18/17 06:59 18:59 Intake Total 1180 639 Output Total 1920 800 Balance -740 -161 - Medications Medications: Current Medications Acetaminophen/Codeine Phosphate (Tylenol/Codeine 300 Mg/30 Mg) 1 ea PO Q6 PRN PRN Reason: Pain, Mild (1-3) Last Admin: 05/17/17 18:47 Dose: 1 ea Ascorbic Acid (Vitamin C 500 Mg Tab) 500 mg PO DAILY [facility] Last Admin: 05/18/17 09:31 Dose: 500 mg Enoxaparin Sodium (Lovenox) 40 mg SC Q12 [facility] Last Admin: 05/07/17 21:41 Dose: 40 mg Fluconazole (Diflucan Iv 200 Mg/100 Ml Ns) 100 mls @ 100 mls/hr IVPB DAILY [facility] Last Admin: 05/18/17 09:32 Dose: 100 mls/hr Fat Emulsion Intravenous (Intralipid 20%) 250 mls @ 42 mls/hr IV TTS@1800 [facility] Stop: 05/22/17 18:01 Last Admin: 05/16/17 17:42 Dose: 42 mls/hr Multivitamins/Vitamin C 10 ml/Chromium/Copper/Manganese/Zinc 1 ml/ Amino Acids 1,011 mls @ 42 mls/hr IV .Q24H [facility] Stop: 05/18/17 17:59 Last Admin: 05/17/17 18:30 Dose: 42 mls/hr Linezolid (Zyvox 600mg/300ml D5w) 600 mg in 300 mls @ 200 mls/hr IVPB Q12 [facility] Last Admin: 05/18/17 10:55 Dose: 200 mls/hr Meropenem 500 mg/ Dextrose 100 mls @ 100 mls/hr IVPB Q8 [facility] Last Admin: 05/18/17 14:28 Dose: 100 mls/hr Multivitamins/Vitamin C 10 ml/Chromium/Copper/Manganese/Zinc 1 ml/ Amino Acids 1,011 mls @ 42 mls/hr IV .Q24H [facility] Stop: 05/19/17 17:59 Insulin Human Regular (Novolin R) 0 unit SC ACHS [facility] PRN Reason: Protocol Last Admin: 05/18/17 12:44 Dose: 6 unit Lactobacillus Acidophilus (Bacid Acidophilus) 1 cap PO DAILY [facility] Last Admin: 05/18/17 09:31 Dose: 1 cap Loperamide HCl (Imodium) 2 mg PO QID PRN PRN Reason: Diarrhea Last Admin: 05/01/17 22:58 Dose: 2 mg Magnesium Oxide (Mag-Ox) 400 mg PO DAILY [facility] Last Admin: 05/18/17 09:31 Dose: 400 mg Multivitamins (Hexavitamin) 1 tab PO DAILY [facility] Last Admin: 05/18/17 09:31 Dose: 1 tab Ondansetron HCl (Zofran Tab) 4 mg PO Q8H PRN PRN Reason: Nausea/Vomiting Petrolatum (Desitin Original) 0 gm TOP TID PRN PRN Reason: Rash Tramadol HCl (Ultram) 25 mg PO TID PRN PRN Reason: Pain, Mild (1-3) Zinc Sulfate (Zinc Sulfate 220 Mg Cap) 220 mg PO DAILY [facility] Last Admin: 05/18/17 09:31 Dose: 220 mg - Labs Labs: 05/18/17 06:51 05/18/17 06:51 PT 11.9 SECONDS (9.7-12.2) 04/13/17 06:28 INR 1.1 04/13/17 06:28 APTT 27 SECONDS (21-34) 04/13/17 06:28 Assessment and Plan (1) Colonic fistula Status: Acute (2) Displacement of Mckeon catheter Status: Acute Attending/Attestation - Attestation I have personally seen and examined this patient.: Yes I have fully participated in the care of the patient.: Yes I have reviewed all pertinent clinical information, including history, physical exam and plan: Yes Notes (Text): Patient examined. No acute distress. Lower abdominal pain present. OR today.
[2017-05-08 11:28] LABS: CHLORIDE 101 mmol/L (98-107)
[2017-05-08 11:29] LABS: POTASSIUM 4.1 mmol/L (3.6-5.2); SODIUM 131 mmol/L (132-148)
[2017-05-08 11:31] LABS: ALB/GLOB RATIO 0.5 (1.0-2.1); ALKALINE PHOSPHATASE 459 U/L (38-126); AST/SGOT 46 U/L (14-36); BILIRUBIN,TOTAL 0.2 mg/dL (0.2-1.3); CARBON DIOXIDE 28 mmol/L (22-30); GFR AFRICAN-AMERICAN > 60; TOTAL PROTEIN 6.3 g/dL (6.3-8.3)
[2017-05-08 11:32] LABS: ALT/SGPT 52 U/L (9-52); BLOOD UREA NITROGEN 13 mg/dL (7-17); CALCIUM 8.3 mg/dl (8.6-10.4); GLUCOSE,RANDOM 91 mg/dL (65-105)
[2017-05-08 12:26] LABS: BASO % 0.4 % (0.0-2.0); EOS # 0.1 K/uL (0.0-0.7); EOS % 1.4 % (0.0-4.0); HEMATOCRIT 24.3 % (34.0-47.0); LYMPH # 1.5 K/uL (1.0-4.3); LYMPH % 18.1 % (20.0-40.0); MEAN CELL VOLUME 85.5 fL (81.0-99.0); MEAN CORPUSCULAR HEMOGLOBIN 27.8 pg (27.0-31.0); MEAN CORPUSCULAR HGB CONC 32.6 g/dL (33.0-37.0); MEAN PLATELET VOLUME 9.2 fL (7.2-11.7); MONO # 0.6 K/uL (0.0-0.8); MONO % 7.8 % (0.0-10.0); RED CELL DISTRIBUTION WIDTH 14.5 % (11.5-14.5)
[2017-05-08 12:44] LABS: CHLORIDE 98 mmol/L (98-107); POTASSIUM 3.9 mmol/L (3.6-5.2); SODIUM 130 mmol/L (132-148)
[2017-05-08 12:47] LABS: GFR AFRICAN-AMERICAN > 60
[2017-05-08 12:48] LABS: BLOOD UREA NITROGEN 13 mg/dL (7-17); CALCIUM 8.1 mg/dl (8.6-10.4); CARBON DIOXIDE 26 mmol/L (22-30); GLUCOSE,RANDOM 307 mg/dL (65-105)
[2017-05-08] MEDS ORDERED: Lactated Ringer's 1,000 ML IV ONE (16:00)
[2017-05-08] MEDS ORDERED: Midazolam 2 MG/2 ML VIAL ONE (16:04)
[2017-05-08] MEDS ORDERED: Propofol 10 mg/ml Inj (20 ML) ONE (16:04)
[2017-05-08] MEDS ORDERED: Phenylephrine 10 mg/ml Inj ONE (16:25)
--- NOTE | 2017-05-08 17:19 | PCM.SURG1 ---
Surgeon's Initial Post Op Note - Surgeon's Notes Surgeon: Dr. Cabral Manager Farm: Dr. Desouza PGY2, Raphael Sim OMS3 Type of Anesthesia: General LMA Pre-Operative Diagnosis: malnutrition, wound infection Operative Findings: see dictation Post-Operative Diagnosis: same Operation Performed: debridement of abd wound w/ wound vac change and ileostomy care Specimen/Specimens Removed: none Estimated Blood Loss: EBL {In ML}: 0 Blood Products Given: N/A Drains Used: Wound Vac, Ostomy Device Post-Op Condition: Good Date of Surgery/Procedure: 05/08/17 Time of Surgery/Procedure: 16:20
[2017-05-08] MEDS ORDERED: HYDROmorphone 0.5 mg/0.5 ml ISec IVP PRN (17:25)
[2017-05-08] MEDS: Meropenem 500 MG in Dextrose 5% In Water 100 ML IVPB SCH (19:32)
[2017-05-08] MEDS: Oxycodone/Acetaminophen 5/325 mg Tab PO SCH ×2 (19:34→21:47)
[2017-05-08] MEDS: Sodium Chloride 0.9% 1,000 ML IV SCH (20:00)
--- NOTE | 2017-05-08 20:06 | CP.PCM.PN ---
Subjective - Date & Time of Evaluation Date of Evaluation: 05/08/17 Time of Evaluation: 10:40 - Subjective Subjective: Clinical exam Objective - Vital Signs/Intake and Output Vital Signs (last 24 hours): Temp Pulse Resp BP Pulse Ox 98.2 F 183 H 19 108/68 95 05/08/17 14:15 05/08/17 14:15 05/08/17 14:15 05/08/17 14:15 05/08/17 14:15 Intake and Output: 05/08/17 05/09/17 18:59 06:59 Intake Total 350 Output Total 1100 Balance -750 - Medications Medications: Current Medications Acetaminophen (Tylenol 325mg Tab) 650 mg PO Q6 PRN PRN Reason: Pain, Mild (1-3) Last Admin: 05/04/17 22:10 Dose: 650 mg Alprazolam (Xanax) 0.25 mg PO ONCE [facility] Stop: 05/09/17 21:01 Last Admin: 05/01/17 22:58 Dose: 0.25 mg Ascorbic Acid (Vitamin C 500 Mg Tab) 500 mg PO DAILY [facility] Last Admin: 05/08/17 09:27 Dose: Not Given Enoxaparin Sodium (Lovenox) 40 mg SC Q12 [facility] Last Admin: 05/07/17 21:41 Dose: 40 mg Fluconazole (Diflucan Iv 200 Mg/100 Ml Ns) 100 mls @ 100 mls/hr IVPB DAILY [facility] Last Admin: 05/08/17 09:26 Dose: 100 mls/hr Sodium Chloride (Sodium Chloride 0.9%) 1,000 mls @ 75 mls/hr IV .[id number] [facility] Last Admin: 05/07/17 15:00 Dose: Not Given Meropenem 500 mg/ Dextrose 100 mls @ 100 mls/hr IVPB Q8H [facility] Last Admin: 05/08/17 19:32 Dose: 100 mls/hr Insulin Human Regular (Novolin R) 0 unit SC ACHS [facility] PRN Reason: Protocol Last Admin: 05/08/17 19:33 Dose: Not Given Lactobacillus Acidophilus (Bacid Acidophilus) 1 cap PO DAILY [facility] Last Admin: 05/08/17 09:26 Dose: Not Given Loperamide HCl (Imodium) 2 mg PO QID PRN PRN Reason: Diarrhea Last Admin: 05/01/17 22:58 Dose: 2 mg Magnesium Oxide (Mag-Ox) 400 mg PO DAILY [facility] Last Admin: 05/08/17 09:27 Dose: Not Given Metoclopramide HCl (Reglan) 10 mg IVP ACHS [facility] Last Admin: 05/08/17 19:34 Dose: Not Given Multivitamins (Hexavitamin) 1 tab PO DAILY [facility] Last Admin: 05/08/17 09:26 Dose: Not Given Oxycodone/Acetaminophen (Percocet 5/325 Mg Tab) 1 tab PO Q4H [facility] Stop: 05/11/17 18:16 Last Admin: 05/08/17 19:34 Dose: Not Given Petrolatum (Desitin Original) 0 gm TOP TID PRN PRN Reason: Rash Potassium Chloride (K-Dur 20 Meq Er Tab) 40 meq PO DAILY [facility] Last Admin: 05/08/17 09:27 Dose: Not Given Tramadol HCl (Ultram) 25 mg PO TID [facility] Last Admin: 05/08/17 19:34 Dose: Not Given Zinc Sulfate (Zinc Sulfate 220 Mg Cap) 220 mg PO DAILY [facility] Last Admin: 05/08/17 09:27 Dose: Not Given - Labs Labs: 05/08/17 12:19 05/08/17 12:19 PT 11.9 SECONDS (9.7-12.2) 04/13/17 06:28 INR 1.1 04/13/17 06:28 APTT 27 SECONDS (21-34) 04/13/17 06:28 - Constitutional Appears: Well - Head Exam Head Exam: ATRAUMATIC, NORMAL INSPECTION, NORMOCEPHALIC - Eye Exam Eye Exam: EOMI, Normal appearance, PERRL - ENT Exam ENT Exam: Mucous Membranes Moist, Normal Exam - Neck Exam Neck Exam: Full ROM, Normal Inspection. absent: Lymphadenopathy - Respiratory Exam Respiratory Exam: Decreased Breath Sounds - Cardiovascular Exam Cardiovascular Exam: REGULAR RHYTHM, +S1, +S2. absent: Murmur - GI/Abdominal Exam GI & Abdominal Exam: Diminished Bowel Sounds - Rectal Exam Rectal Exam: Deferred - Back Exam Back Exam: NORMAL INSPECTION - Neurological Exam Neurological Exam: Alert, Awake, CN II-XII Intact, Normal Gait, Oriented x3 - Psychiatric Exam Psychiatric exam: Normal Affect, Normal Mood - Skin Skin Exam: Dry, Intact, Normal Color, Warm Assessment and Plan (1) Colonic fistula Status: Acute (2) Displacement of Mckeon catheter Status: Acute - Assessment and Plan (Free Text) Plan: Debridement of wound and wound VAC changed. Patient examined. Diffuse abdominal pain present. Continue broad-spectrum antibiotic. Continue insulin, other antidiabetic medications, antihypertensive medications and supportive care.
[2017-05-09] MEDS: Meropenem 500 MG in Dextrose 5% In Water 100 ML IVPB SCH ×3 (00:53→16:36)
[2017-05-09] MEDS: Oxycodone/Acetaminophen 5/325 mg Tab PO SCH ×4 (02:15→14:44)
[2017-05-09 07:25] LABS: BASO % 0.4 % (0.0-2.0); EOS # 0.2 K/uL (0.0-0.7); LYMPH # 1.7 K/uL (1.0-4.3); LYMPH % 23.1 % (20.0-40.0); MEAN CELL VOLUME 84.2 fL (81.0-99.0); MEAN CORPUSCULAR HEMOGLOBIN 27.9 pg (27.0-31.0); MEAN CORPUSCULAR HGB CONC 33.1 g/dL (33.0-37.0); MEAN PLATELET VOLUME 8.9 fL (7.2-11.7); MONO # 0.5 K/uL (0.0-0.8); MONO % 7.6 % (0.0-10.0); RED CELL DISTRIBUTION WIDTH 14.6 % (11.5-14.5); WHITE BLOOD COUNT 7.2 K/uL (4.8-10.8)
[2017-05-09] MEDS: (Novolin R) Insulin Human Regular 100 units/ml vial SC SCH ×4 (07:40→21:52)
[2017-05-09 07:58] LABS: CHLORIDE 97 mmol/L (98-107); SODIUM 129 mmol/L (132-148)
[2017-05-09 07:59] LABS: POTASSIUM 4.2 mmol/L (3.6-5.2)
[2017-05-09 08:01] LABS: ALB/GLOB RATIO 0.6 (1.0-2.1); ALKALINE PHOSPHATASE 515 U/L (38-126); ALT/SGPT 53 U/L (9-52); AST/SGOT 69 U/L (14-36); BILIRUBIN,TOTAL 0.5 mg/dL (0.2-1.3); BLOOD UREA NITROGEN 15 mg/dL (7-17); CARBON DIOXIDE 28 mmol/L (22-30); GFR AFRICAN-AMERICAN > 60; GLUCOSE,RANDOM 160 mg/dL (65-105); TOTAL PROTEIN 5.5 g/dL (6.3-8.3)
[2017-05-09 08:02] LABS: CALCIUM 8.1 mg/dl (8.6-10.4)
[2017-05-09] MEDS: Fluconazole IV 200mg/100 ml NS 100 ML IVPB SCH (10:00)
[2017-05-09] MEDS: Lactobacillus Acidophilus 500 MU Cap PO SCH (10:00)
[2017-05-09] MEDS: Tramadol 25 mg PO SCH ×3 (10:01→18:18)
[2017-05-09] MEDS: Multiple Vitamins Tab PO SCH (10:01)
[2017-05-09] MEDS: Potassium Chloride 20 mEq ER Tab PO SCH (10:01)
--- NOTE | 2017-05-09 10:13 | CP.PCM.PN ---
<Zari Desouza - Last Filed: 05/09/17 10:10> Subjective - Date & Time of Evaluation Date of Evaluation: 05/09/17 Time of Evaluation: 07:00 - Subjective Subjective: General Surgery Dr. Cabral Pt S&E @bedside. NAEO. pt c/o headache and general abd discomfort. pt tolerating diet. Objective - Vital Signs/Intake and Output Vital Signs (last 24 hours): Temp Pulse Resp BP Pulse Ox 97.8 F 110 H 20 102/67 100 05/09/17 07:00 05/09/17 07:00 05/09/17 07:00 05/09/17 07:00 05/09/17 07:00 Intake and Output: 05/09/17 05/09/17 06:59 18:59 Intake Total 1125 Output Total 750 Balance 375 - Medications Medications: Current Medications Acetaminophen (Tylenol 325mg Tab) 650 mg PO Q6 PRN PRN Reason: Pain, Mild (1-3) Last Admin: 05/04/17 22:10 Dose: 650 mg Ascorbic Acid (Vitamin C 500 Mg Tab) 500 mg PO DAILY [facility] Last Admin: 05/09/17 10:01 Dose: 500 mg Enoxaparin Sodium (Lovenox) 40 mg SC Q12 [facility] Last Admin: 05/07/17 21:41 Dose: 40 mg Fluconazole (Diflucan Iv 200 Mg/100 Ml Ns) 100 mls @ 100 mls/hr IVPB DAILY [facility] Last Admin: 05/09/17 10:00 Dose: 100 mls/hr Meropenem 500 mg/ Dextrose 100 mls @ 100 mls/hr IVPB Q8H [facility] Last Admin: 05/09/17 07:41 Dose: 100 mls/hr Multivitamins/Vitamin C 10 ml/Heparin Sodium (Porcine) 1, 000 units/ Amino Acids /Electrolytes/Dextrose 1,011 mls @ 83 mls/hr IV .[id number] ONE Stop: 05/10/17 06:10 Heparin Sodium (Porcine) 1,000 units/ Amino Acids/Electrolytes/Dextrose 1,001 mls @ 83 mls/hr IV .Q12H4M ONE Stop: 05/10/17 18:03 Fat Emulsion Intravenous (Intralipid 20%) 250 mls @ 83 mls/hr IV 1800 ONE Stop: 05/09/17 21:00 Insulin Human Regular (Novolin R) 0 unit SC ACHS [facility] PRN Reason: Protocol Last Admin: 05/09/17 07:40 Dose: 2 unit Lactobacillus Acidophilus (Bacid Acidophilus) 1 cap PO DAILY [facility] Last Admin: 05/09/17 10:00 Dose: 1 cap Loperamide HCl (Imodium) 2 mg PO QID PRN PRN Reason: Diarrhea Last Admin: 05/01/17 22:58 Dose: 2 mg Magnesium Oxide (Mag-Ox) 400 mg PO DAILY [facility] Last Admin: 05/08/17 09:27 Dose: Not Given Metoclopramide HCl (Reglan) 10 mg IVP ACHS [facility] Last Admin: 05/09/17 07:41 Dose: 10 mg Multivitamins (Hexavitamin) 1 tab PO DAILY [facility] Last Admin: 05/09/17 10:01 Dose: 1 tab Oxycodone/Acetaminophen (Percocet 5/325 Mg Tab) 1 tab PO Q4H [facility] Stop: 05/11/17 18:16 Last Admin: 05/09/17 10:03 Dose: Not Given Petrolatum (Desitin Original) 0 gm TOP TID PRN PRN Reason: Rash Potassium Chloride (K-Dur 20 Meq Er Tab) 40 meq PO DAILY [facility] Last Admin: 05/09/17 10:01 Dose: 40 meq Tramadol HCl (Ultram) 25 mg PO TID [facility] Last Admin: 05/09/17 10:01 Dose: 25 mg Zinc Sulfate (Zinc Sulfate 220 Mg Cap) 220 mg PO DAILY [facility] Last Admin: 05/09/17 10:01 Dose: 220 mg - Labs Labs: 05/09/17 07:09 05/09/17 07:09 PT 11.9 SECONDS (9.7-12.2) 04/13/17 06:28 INR 1.1 04/13/17 06:28 APTT 27 SECONDS (21-34) 04/13/17 06:28 - Constitutional Appears: Non-toxic, No Acute Distress, Cachectic, Chronically Ill - Head Exam Head Exam: NORMAL INSPECTION - Eye Exam Eye Exam: Normal appearance - ENT Exam ENT Exam: Mucous Membranes Moist - Respiratory Exam Respiratory Exam: NORMAL BREATHING PATTERN. absent: Accessory Muscle Use, Respiratory Distress - Cardiovascular Exam Cardiovascular Exam: absent: Bradycardia, Tachycardia - GI/Abdominal Exam GI & Abdominal Exam: Soft. absent: Distended, Guarding, Rebound Additional comments: wound vac in place w/ no leak ostomy appliance in place, no leak appreciated stool present in ostomy/gonzalez bag R nephrostomy tube present dressing over removed saad drain c/d/i - Extremities Exam Extremities Exam: Normal Inspection - Neurological Exam Neurological Exam: Alert, Awake, Oriented x3 - Psychiatric Exam Psychiatric exam: Normal Affect, Normal Mood - Skin Skin Exam: Dry, Normal Color, Warm Assessment and Plan - Assessment and Plan (Free Text) Assessment: 61 y/o F POD#1 s/p wound debridement, wound vac replacement, and ostomy care, POD#27 s/p ex-lap, small bowel resection, bladder repair, appendectomy, and ileostomy - cont pain management - cont Abx per ID - cont TPN - Pt tentatively scheduled for replacement of L Nephrostomy tube later today Pt discussed w/ Dr. Misha Desouza DO PGY2 <Sumeet Cabral - Last Filed: 05/14/17 16:26> Objective - Vital Signs/Intake and Output Vital Signs (last 24 hours): Temp Pulse Resp BP Pulse Ox 98.2 F 108 H 18 118/68 100 05/14/17 09:20 05/14/17 09:20 05/14/17 09:20 05/14/17 09:20 05/14/17 09:20 Intake and Output: 05/14/17 05/14/17 06:59 18:59 Intake Total 250 Output Total 800 Balance -550 - Medications Medications: Current Medications Acetaminophen/Codeine Phosphate (Tylenol/Codeine 300 Mg/30 Mg) 1 ea PO Q6 [facility] Last Admin: 05/14/17 12:44 Dose: Not Given Ascorbic Acid (Vitamin C 500 Mg Tab) 500 mg PO DAILY [facility] Last Admin: 05/14/17 10:23 Dose: 500 mg Enoxaparin Sodium (Lovenox) 40 mg SC Q12 [facility] Last Admin: 05/07/17 21:41 Dose: 40 mg Fluconazole (Diflucan Iv 200 Mg/100 Ml Ns) 100 mls @ 100 mls/hr IVPB DAILY [facility] Last Admin: 05/14/17 10:18 Dose: 100 mls/hr Multivitamins/Vitamin C 10 ml/Chromium/Copper/Manganese/Zinc 1 ml/ Amino Acids 1,011 mls @ 42 mls/hr IV .Q24H [facility] Last Admin: 05/13/17 17:39 Dose: 42 mls/hr Tigecycline 50 mg/ Dextrose 100 mls @ 100 mls/hr IVPB Q12H [facility] Insulin Human Regular (Novolin R) 0 unit SC ACHS [facility] PRN Reason: Protocol Last Admin: 05/14/17 12:40 Dose: Not Given Lactobacillus Acidophilus (Bacid Acidophilus) 1 cap PO DAILY [facility] Last Admin: 05/14/17 10:18 Dose: 1 cap Loperamide HCl (Imodium) 2 mg PO QID PRN PRN Reason: Diarrhea Last Admin: 05/01/17 22:58 Dose: 2 mg Magnesium Oxide (Mag-Ox) 400 mg PO DAILY [facility] Last Admin: 05/14/17 10:22 Dose: 400 mg Metoclopramide HCl (Reglan) 10 mg IVP ACHS [facility] Last Admin: 05/14/17 12:41 Dose: Not Given Multivitamins (Hexavitamin) 1 tab PO DAILY [facility] Last Admin: 05/14/17 10:22 Dose: 1 tab Petrolatum (Desitin Original) 0 gm TOP TID PRN PRN Reason: Rash Tramadol HCl (Ultram) 25 mg PO TID PRN PRN Reason: Pain, Mild (1-3) Zinc Sulfate (Zinc Sulfate 220 Mg Cap) 220 mg PO DAILY [facility] Last Admin: 05/14/17 10:23 Dose: 220 mg - Labs Labs: 05/11/17 06:54 05/11/17 06:54 PT 11.9 SECONDS (9.7-12.2) 04/13/17 06:28 INR 1.1 04/13/17 06:28 APTT 27 SECONDS (21-34) 04/13/17 06:28 Attending/Attestation - Attestation I have personally seen and examined this patient.: Yes I have fully participated in the care of the patient.: Yes I have reviewed all pertinent clinical information, including history, physical exam and plan: Yes Notes (Text): Pt was seen and examined at bedside Agree with above note and assessment C/w current mx
[2017-05-09] MEDS: Magnesium Oxide 400 mg Tab UD PO SCH (11:40)
--- NOTE | 2017-05-09 14:11 | PCM.IRP ---
History of Present Illness - History of Present Illness History of Present Illness: Renal US performed. There is no hydronephrosis of the left kidney. A nephrostomy tube will be inserted once the renal collecting system becomes distended and procedure can safely done. Objective - Vital Signs/Intake and Output Vital Signs (last 24 hours): Vital Signs - 24 hr 05/08/17 05/08/17 05/08/17 14:15 17:17 17:32 Temperature 98.2 F 97.9 F Pulse Rate 183 H 92 H 92 H Respiratory 19 12 10 L Rate Blood Pressure 108/68 109/66 109/66 O2 Sat by Pulse 95 100 100 Oximetry 05/08/17 05/08/17 05/08/17 17:47 18:03 18:20 Temperature 98.1 F Pulse Rate 96 H 91 H 91 H Respiratory 9 L 10 L 11 L Rate Blood Pressure 118/74 120/73 113/70 O2 Sat by Pulse 100 100 100 Oximetry 05/08/17 05/09/17 05/09/17 23:30 04:35 07:00 Temperature 98.4 F 98 F 97.8 F Pulse Rate 107 H 99 H 110 H Respiratory 20 20 20 Rate Blood Pressure 91/60 L 91/57 L 102/67 O2 Sat by Pulse 100 98 100 Oximetry Intake and Output (last 12 hours): Intake & Output 05/08/17 05/09/17 05/09/17 18:59 06:59 18:59 Intake Total 350 1125 Output Total 1100 750 Balance -750 375 Weight 72 lb Intake: Intake, IV Amount 925 Right Upper arm 925 Oral 200 TPN/PPN 350 Output: Gastric Amount 100 100 Right 100 100 Drainage 550 400 Abdomen 0 Right 550 400 Urine 450 250 Urethral (Mckeon) 75 250 - Medications Medications: Current Medications Acetaminophen (Tylenol 325mg Tab) 650 mg PO Q6 PRN PRN Reason: Pain, Mild (1-3) Last Admin: 05/04/17 22:10 Dose: 650 mg Ascorbic Acid (Vitamin C 500 Mg Tab) 500 mg PO DAILY [facility] Last Admin: 05/09/17 10:01 Dose: 500 mg Enoxaparin Sodium (Lovenox) 40 mg SC Q12 [facility] Last Admin: 05/07/17 21:41 Dose: 40 mg Fluconazole (Diflucan Iv 200 Mg/100 Ml Ns) 100 mls @ 100 mls/hr IVPB DAILY [facility] Last Admin: 05/09/17 10:00 Dose: 100 mls/hr Meropenem 500 mg/ Dextrose 100 mls @ 100 mls/hr IVPB Q8H [facility] Last Admin: 05/09/17 07:41 Dose: 100 mls/hr Multivitamins/Vitamin C 10 ml/Heparin Sodium (Porcine) 1, 000 units/ Amino Acids /Electrolytes/Dextrose 1,011 mls @ 83 mls/hr IV .[id number] ONE Stop: 05/10/17 06:10 Heparin Sodium (Porcine) 1,000 units/ Amino Acids/Electrolytes/Dextrose 1,001 mls @ 83 mls/hr IV .Q12H4M ONE Stop: 05/10/17 18:03 Fat Emulsion Intravenous (Intralipid 20%) 250 mls @ 83 mls/hr IV 1800 ONE Stop: 05/09/17 21:00 Insulin Human Regular (Novolin R) 0 unit SC ACHS [facility] PRN Reason: Protocol Last Admin: 05/09/17 11:38 Dose: 3 unit Lactobacillus Acidophilus (Bacid Acidophilus) 1 cap PO DAILY [facility] Last Admin: 05/09/17 10:00 Dose: 1 cap Loperamide HCl (Imodium) 2 mg PO QID PRN PRN Reason: Diarrhea Last Admin: 05/01/17 22:58 Dose: 2 mg Magnesium Oxide (Mag-Ox) 400 mg PO DAILY [facility] Last Admin: 05/09/17 11:40 Dose: 400 mg Metoclopramide HCl (Reglan) 10 mg IVP ACHS [facility] Last Admin: 05/09/17 11:40 Dose: 10 mg Multivitamins (Hexavitamin) 1 tab PO DAILY [facility] Last Admin: 05/09/17 10:01 Dose: 1 tab Oxycodone/Acetaminophen (Percocet 5/325 Mg Tab) 1 tab PO Q4H [facility] Stop: 05/11/17 18:16 Last Admin: 05/09/17 10:03 Dose: Not Given Petrolatum (Desitin Original) 0 gm TOP TID PRN PRN Reason: Rash Potassium Chloride (K-Dur 20 Meq Er Tab) 40 meq PO DAILY [facility] Last Admin: 05/09/17 10:01 Dose: 40 meq Tramadol HCl (Ultram) 25 mg PO TID [facility] Last Admin: 05/09/17 14:03 Dose: 25 mg Zinc Sulfate (Zinc Sulfate 220 Mg Cap) 220 mg PO DAILY [facility] Last Admin: 05/09/17 10:01 Dose: 220 mg - Labs Labs (last 24 hours): Laboratory Results - last 24 hr 05/08/17 05/09/17 05/09/17 22:19 06:31 07:09 WBC 7.2 RBC 2.73 L Hgb 7.6 L Hct 23.0 L MCV 84.2 MCH 27.9 MCHC 33.1 RDW 14.6 H Plt Count 284 MPV 8.9 Neut % (Auto) 65.9 Lymph % (Auto) 23.1 [place] % (Auto) 7.6 Eos % (Auto) 3.0 Baso % (Auto) 0.4 Neut # 4.7 Lymph # 1.7 [place] # 0.5 Eos # 0.2 Baso # 0.0 Sodium Potassium Chloride Carbon Dioxide Anion Gap BUN Creatinine Est GFR ( Amer) Est GFR (Non-Af Amer) POC Glucose (mg/dL) 205 H 214 H Random Glucose Calcium Total Bilirubin AST ALT Alkaline Phosphatase Total Protein Albumin Globulin Albumin/Globulin Ratio 05/09/17 05/09/17 07:09 11:01 WBC RBC Hgb Hct MCV MCH MCHC RDW Plt Count MPV Neut % (Auto) Lymph % (Auto) [place] % (Auto) Eos % (Auto) Baso % (Auto) Neut # Lymph # [place] # Eos # Baso # Sodium 129 L Potassium 4.2 Chloride 97 L Carbon Dioxide 28 Anion Gap 8 L BUN 15 Creatinine 0.5 L Est GFR ( Amer) > 60 Est GFR (Non-Af Amer) > 60 POC Glucose (mg/dL) 250 H Random Glucose 160 H Calcium 8.1 L Total Bilirubin 0.5 AST 69 H D ALT 53 H Alkaline Phosphatase 515 H Total Protein 5.5 L Albumin 2.1 L Globulin 3.4 Albumin/Globulin Ratio 0.6 L
--- NOTE | 2017-05-09 14:13 | CP.PCM.PN ---
<Colleen Guevaragueritakhushbu - Last Filed: 05/09/17 15:18> Subjective - Date & Time of Evaluation Date of Evaluation: 05/09/17 Time of Evaluation: 12:48 - Subjective Subjective: PGY 2 Medicine Note- Dr. Eliceo Higgins's service Pt seen and examined in no apparent acute distress. Patient stated that she speaks Gujarati. Per nursing, patient appears improved today. She is much more alert. She has been tolerating a diet although a bit picky at times. Her son often brings in food from home. An ROS was not obtained at this time. Objective - Vital Signs/Intake and Output Vital Signs (last 24 hours): Temp Pulse Resp BP Pulse Ox 97.8 F 110 H 20 102/67 100 05/09/17 07:00 05/09/17 07:00 05/09/17 07:00 05/09/17 07:00 05/09/17 07:00 Intake and Output: 05/09/17 05/09/17 06:59 18:59 Intake Total 1125 Output Total 750 Balance 375 - Medications Medications: Current Medications Acetaminophen (Tylenol 325mg Tab) 650 mg PO Q6 PRN PRN Reason: Pain, Mild (1-3) Last Admin: 05/04/17 22:10 Dose: 650 mg Ascorbic Acid (Vitamin C 500 Mg Tab) 500 mg PO DAILY [facility] Last Admin: 05/09/17 10:01 Dose: 500 mg Enoxaparin Sodium (Lovenox) 40 mg SC Q12 [facility] Last Admin: 05/07/17 21:41 Dose: 40 mg Fluconazole (Diflucan Iv 200 Mg/100 Ml Ns) 100 mls @ 100 mls/hr IVPB DAILY [facility] Last Admin: 05/09/17 10:00 Dose: 100 mls/hr Meropenem 500 mg/ Dextrose 100 mls @ 100 mls/hr IVPB Q8H [facility] Last Admin: 05/09/17 07:41 Dose: 100 mls/hr Multivitamins/Vitamin C 10 ml/Heparin Sodium (Porcine) 1, 000 units/ Amino Acids /Electrolytes/Dextrose 1,011 mls @ 83 mls/hr IV .[id number] ONE Stop: 05/10/17 06:10 Heparin Sodium (Porcine) 1,000 units/ Amino Acids/Electrolytes/Dextrose 1,001 mls @ 83 mls/hr IV .Q12H4M ONE Stop: 05/10/17 18:03 Fat Emulsion Intravenous (Intralipid 20%) 250 mls @ 83 mls/hr IV 1800 ONE Stop: 05/09/17 21:00 Insulin Human Regular (Novolin R) 0 unit SC ACHS [facility] PRN Reason: Protocol Last Admin: 05/09/17 11:38 Dose: 3 unit Lactobacillus Acidophilus (Bacid Acidophilus) 1 cap PO DAILY [facility] Last Admin: 05/09/17 10:00 Dose: 1 cap Loperamide HCl (Imodium) 2 mg PO QID PRN PRN Reason: Diarrhea Last Admin: 05/01/17 22:58 Dose: 2 mg Magnesium Oxide (Mag-Ox) 400 mg PO DAILY [facility] Last Admin: 05/09/17 11:40 Dose: 400 mg Metoclopramide HCl (Reglan) 10 mg IVP ACHS [facility] Last Admin: 05/09/17 11:40 Dose: 10 mg Multivitamins (Hexavitamin) 1 tab PO DAILY [facility] Last Admin: 05/09/17 10:01 Dose: 1 tab Oxycodone/Acetaminophen (Percocet 5/325 Mg Tab) 1 tab PO Q4H [facility] Stop: 05/11/17 18:16 Last Admin: 05/09/17 10:03 Dose: Not Given Petrolatum (Desitin Original) 0 gm TOP TID PRN PRN Reason: Rash Potassium Chloride (K-Dur 20 Meq Er Tab) 40 meq PO DAILY [facility] Last Admin: 05/09/17 10:01 Dose: 40 meq Tramadol HCl (Ultram) 25 mg PO TID [facility] Last Admin: 05/09/17 14:03 Dose: 25 mg Zinc Sulfate (Zinc Sulfate 220 Mg Cap) 220 mg PO DAILY [facility] Last Admin: 05/09/17 10:01 Dose: 220 mg - Labs Labs: 05/09/17 07:09 05/09/17 07:09 PT 11.9 SECONDS (9.7-12.2) 04/13/17 06:28 INR 1.1 04/13/17 06:28 APTT 27 SECONDS (21-34) 04/13/17 06:28 - Constitutional Appears: Non-toxic, No Acute Distress, Cachectic - Head Exam Head Exam: ATRAUMATIC, NORMAL INSPECTION - Eye Exam Eye Exam: EOMI, Normal appearance - ENT Exam ENT Exam: Mucous Membranes Moist - Neck Exam Neck Exam: Full ROM - Respiratory Exam Respiratory Exam: NORMAL BREATHING PATTERN. absent: Wheezes - Cardiovascular Exam Cardiovascular Exam: +S1, +S2 - GI/Abdominal Exam GI & Abdominal Exam: Soft Additional comments: colostomy site appreciated with light brown stool noted ; site is clean and dry and non-erythematous. - Exam Additional comments: right nephrostomy tube appreciated with clear yellow output - Extremities Exam Extremities Exam: Full ROM. absent: Tenderness - Back Exam Back Exam: Full ROM - Neurological Exam Neurological Exam: Alert, Awake, Oriented x3 - Psychiatric Exam Psychiatric exam: Normal Affect, Normal Mood - Skin Skin Exam: Dry, Normal Color, Warm Assessment and Plan - Assessment and Plan (Free Text) Assessment: S/P debridement of midline incision with wound vac -Surgery on the case- F/U recommendations -Switch tylenol medication due to elevated LFTs. Tramadol scheduled as per Surgery team. Morphine 1 Q6 PRN for severe pain -NS 75 cc/hr -Tramadol TID -zinc sulfate S/P ex lap small bowel resection with ileostomy, bladder repair, appendectomy -may need cystogram, nephrogram or further intervention- F/U Urology and Surgery recommendations -Per IR: Renal US performed. No hydronephrosis of the left kidney appreciated. A nephrostomy tube to be inserted once the renal collecting system becomes distended and procedure can be safely performed. -IV fluconazole -IV meropenem -mg ox 400 PO daily -MVs Transaminitis Avoid Hepatotoxic meds Switch tylenol to another pain medication Hep Panel Cont to monitor Hx of DM -ISS -Accuchecks Dietary Support -PPN therapy -Family supplements with home meals as well. GI/DVT Prophylaxis -protonix -lovenox Discussed with attending. Management and planning per Dr. Eliceo Higgins. <Tonya Higgins S - Last Filed: 05/24/17 16:41> Objective - Vital Signs/Intake and Output Vital Signs (last 24 hours): Temp Pulse Resp BP Pulse Ox 97.3 F L 106 H 20 109/65 100 05/24/17 15:00 05/24/17 15:00 05/24/17 15:00 05/24/17 15:00 05/24/17 15:00 Intake and Output: 05/24/17 05/24/17 06:59 18:59 Output Total 1350 400 Balance -1350 -400 - Medications Medications: Current Medications Acetaminophen/Codeine Phosphate (Tylenol/Codeine 300 Mg/30 Mg) 1 ea PO Q6 [facility] Last Admin: 05/24/17 05:21 Dose: Not Given Ascorbic Acid (Vitamin C 500 Mg Tab) 500 mg PO DAILY [facility] Last Admin: 05/24/17 09:56 Dose: Not Given Diphenhydramine HCl (Benadryl) 25 mg IVP Q8H [facility] Last Admin: 05/24/17 09:55 Dose: Not Given Enoxaparin Sodium (Lovenox) 40 mg SC Q12 [facility] Last Admin: 05/07/17 21:41 Dose: 40 mg Sodium Chloride (Sodium Chloride 0.9%) 1,000 mls @ 75 mls/hr IV .[id number] [facility] Last Admin: 05/24/17 01:00 Dose: 75 mls/hr Insulin Human Regular (Novolin R) 0 unit SC ACHS [facility] PRN Reason: Protocol Last Admin: 05/24/17 12:04 Dose: Not Given Lactobacillus Acidophilus (Bacid Acidophilus) 1 cap PO DAILY [facility] Last Admin: 05/24/17 09:55 Dose: Not Given Loperamide HCl (Imodium) 2 mg PO QID PRN PRN Reason: Diarrhea Last Admin: 05/01/17 22:58 Dose: 2 mg Magnesium Oxide (Mag-Ox) 400 mg PO DAILY [facility] Last Admin: 05/24/17 09:56 Dose: Not Given Multivitamins (Hexavitamin) 1 tab PO DAILY [facility] Last Admin: 05/24/17 09:56 Dose: Not Given Ondansetron HCl (Zofran Tab) 4 mg PO Q8H PRN PRN Reason: Nausea/Vomiting Last Admin: 05/22/17 09:13 Dose: 4 mg Petrolatum (Desitin Original) 0 gm TOP TID PRN PRN Reason: Rash Last Admin: 05/20/17 06:44 Dose: 1 applic Tramadol HCl (Ultram) 25 mg PO TID PRN PRN Reason: Pain, Mild (1-3) Last Admin: 05/23/17 17:56 Dose: 25 mg Zinc Sulfate (Zinc Sulfate 220 Mg Cap) 220 mg PO DAILY [facility] Last Admin: 05/24/17 09:56 Dose: Not Given - Labs Labs: 05/23/17 11:57 05/23/17 11:57 PT 11.9 SECONDS (9.7-12.2) 04/13/17 06:28 INR 1.1 04/13/17 06:28 APTT 27 SECONDS (21-34) 04/13/17 06:28 Assessment and Plan (1) Colonic fistula Status: Acute (2) Displacement of Mckeon catheter Status: Acute Attending/Attestation - Attestation I have personally seen and examined this patient.: Yes I have fully participated in the care of the patient.: Yes I have reviewed all pertinent clinical information, including history, physical exam and plan: Yes Notes (Text): Patient examined. The patient is improving. Patient is much more alert. Continue meropenem. Continue fluconazole. Continue pain medications. Continue supportive treatment.
[2017-05-09] MEDS ORDERED: Morphine 4 MG/ML VIAL IV PRN (14:44)
--- NOTE | 2017-05-09 15:13 | CP.PCM.PN ---
Subjective - Date & Time of Evaluation Date of Evaluation: 05/09/17 Time of Evaluation: 10:20 - Subjective Subjective: clincally same Objective - Vital Signs/Intake and Output Vital Signs (last 24 hours): Temp Pulse Resp BP Pulse Ox 97.8 F 110 H 20 102/67 100 05/09/17 07:00 05/09/17 07:00 05/09/17 07:00 05/09/17 07:00 05/09/17 07:00 Intake and Output: 05/09/17 05/09/17 06:59 18:59 Intake Total 1125 15 Output Total 750 900 Balance 375 -075 - Medications Medications: Current Medications Ascorbic Acid (Vitamin C 500 Mg Tab) 500 mg PO DAILY [facility] Last Admin: 05/09/17 10:01 Dose: 500 mg Enoxaparin Sodium (Lovenox) 40 mg SC Q12 [facility] Last Admin: 05/07/17 21:41 Dose: 40 mg Fluconazole (Diflucan Iv 200 Mg/100 Ml Ns) 100 mls @ 100 mls/hr IVPB DAILY [facility] Last Admin: 05/09/17 10:00 Dose: 100 mls/hr Meropenem 500 mg/ Dextrose 100 mls @ 100 mls/hr IVPB Q8H [facility] Last Admin: 05/09/17 07:41 Dose: 100 mls/hr Multivitamins/Vitamin C 10 ml/Heparin Sodium (Porcine) 1, 000 units/ Amino Acids /Electrolytes/Dextrose 1,011 mls @ 83 mls/hr IV .[id number] ONE Stop: 05/10/17 06:10 Heparin Sodium (Porcine) 1,000 units/ Amino Acids/Electrolytes/Dextrose 1,001 mls @ 83 mls/hr IV .Q12H4M ONE Stop: 05/10/17 18:03 Fat Emulsion Intravenous (Intralipid 20%) 250 mls @ 83 mls/hr IV 1800 ONE Stop: 05/09/17 21:00 Insulin Human Regular (Novolin R) 0 unit SC ACHS [facility] PRN Reason: Protocol Last Admin: 05/09/17 11:38 Dose: 3 unit Lactobacillus Acidophilus (Bacid Acidophilus) 1 cap PO DAILY [facility] Last Admin: 05/09/17 10:00 Dose: 1 cap Loperamide HCl (Imodium) 2 mg PO QID PRN PRN Reason: Diarrhea Last Admin: 05/01/17 22:58 Dose: 2 mg Magnesium Oxide (Mag-Ox) 400 mg PO DAILY [facility] Last Admin: 05/09/17 11:40 Dose: 400 mg Metoclopramide HCl (Reglan) 10 mg IVP ACHS [facility] Last Admin: 05/09/17 11:40 Dose: 10 mg Morphine Sulfate (Morphine) 1 mg IV Q6 PRN PRN Reason: Pain, severe (8-10) Multivitamins (Hexavitamin) 1 tab PO DAILY [facility] Last Admin: 05/09/17 10:01 Dose: 1 tab Petrolatum (Desitin Original) 0 gm TOP TID PRN PRN Reason: Rash Potassium Chloride (K-Dur 20 Meq Er Tab) 40 meq PO DAILY [facility] Last Admin: 05/09/17 10:01 Dose: 40 meq Tramadol HCl (Ultram) 25 mg PO TID [facility] Last Admin: 05/09/17 14:03 Dose: 25 mg Zinc Sulfate (Zinc Sulfate 220 Mg Cap) 220 mg PO DAILY [facility] Last Admin: 05/09/17 10:01 Dose: 220 mg - Labs Labs: 05/09/17 07:09 05/09/17 07:09 PT 11.9 SECONDS (9.7-12.2) 04/13/17 06:28 INR 1.1 04/13/17 06:28 APTT 27 SECONDS (21-34) 04/13/17 06:28 - Constitutional Appears: Well - Head Exam Head Exam: ATRAUMATIC, NORMAL INSPECTION, NORMOCEPHALIC - Eye Exam Eye Exam: EOMI, Normal appearance, PERRL Pupil Exam: NORMAL ACCOMODATION, PERRL - ENT Exam ENT Exam: Mucous Membranes Moist, Normal Exam - Neck Exam Neck Exam: Full ROM, Normal Inspection. absent: Lymphadenopathy - Respiratory Exam Respiratory Exam: Decreased Breath Sounds - Cardiovascular Exam Cardiovascular Exam: REGULAR RHYTHM, +S1, +S2 - GI/Abdominal Exam GI & Abdominal Exam: Soft, Diminished Bowel Sounds - Rectal Exam Rectal Exam: Deferred - Back Exam Back Exam: NORMAL INSPECTION - Neurological Exam Neurological Exam: Alert, Awake, CN II-XII Intact, Normal Gait, Oriented x3 - Psychiatric Exam Psychiatric exam: Normal Affect, Normal Mood - Skin Skin Exam: Dry, Intact, Normal Color, Warm Assessment and Plan (1) Colonic fistula Status: Acute (2) Displacement of Mckeon catheter Status: Acute - Assessment and Plan (Free Text) Plan: Patient examined. Diffuse abdominal pain present. Continue broad-spectrum antibiotic. Continue insulin, other antidiabetic medications, antihypertensive medications and supportive care.
[2017-05-09] MEDS ORDERED: TPN #5 IV ONE (18:00)
[2017-05-09] MEDS ORDERED: Fat Emulsion 20% IV 250 ML IV ONE (18:00)
[2017-05-10] MEDS: Meropenem 500 MG in Dextrose 5% In Water 100 ML IVPB SCH ×3 (00:05→17:51)
[2017-05-10] MEDS ORDERED: TPN #6 IV ONE (06:00)
[2017-05-10 08:05] LABS: BASO % 0.3 % (0.0-2.0); EOS # 0.2 K/uL (0.0-0.7); EOS % 2.7 % (0.0-4.0); LYMPH # 1.6 K/uL (1.0-4.3); MEAN CORPUSCULAR HEMOGLOBIN 28.6 pg (27.0-31.0); MEAN PLATELET VOLUME 8.7 fL (7.2-11.7); MONO # 0.6 K/uL (0.0-0.8); MONO % 6.9 % (0.0-10.0); NRBC % 0.1 % (0.0-2.0); RED CELL DISTRIBUTION WIDTH 14.1 % (11.5-14.5); WHITE BLOOD COUNT 8.2 K/uL (4.8-10.8)
[2017-05-10 08:45] LABS: CHLORIDE 94 mmol/L (98-107); SODIUM 126 mmol/L (132-148)
[2017-05-10 08:46] LABS: POTASSIUM 4.6 mmol/L (3.6-5.2)
[2017-05-10 08:48] LABS: ALB/GLOB RATIO 0.6 (1.0-2.1); ALKALINE PHOSPHATASE 506 U/L (38-126); AST/SGOT 85 U/L (14-36); BILIRUBIN,TOTAL 0.7 mg/dL (0.2-1.3); BLOOD UREA NITROGEN 19 mg/dL (7-17); CARBON DIOXIDE 27 mmol/L (22-30); GFR AFRICAN-AMERICAN > 60; GLUCOSE,RANDOM 307 mg/dL (65-105); PHOSPHOROUS 2.8 mg/dL (2.5-4.5); TOTAL PROTEIN 5.8 g/dL (6.3-8.3)
[2017-05-10 08:49] LABS: ALT/SGPT 75 U/L (9-52); CALCIUM 8.3 mg/dl (8.6-10.4); MAGNESIUM 1.2 mg/dL (1.6-2.3)
[2017-05-10] MEDS: (Novolin R) Insulin Human Regular 100 units/ml vial SC SCH ×4 (08:53→21:42)
[2017-05-10] MEDS: Multiple Vitamins Tab PO SCH (09:32)
[2017-05-10] MEDS: Fluconazole IV 200mg/100 ml NS 100 ML IVPB SCH (09:32)
[2017-05-10] MEDS: Magnesium Oxide 400 mg Tab UD PO SCH (09:32)
[2017-05-10] MEDS: Potassium Chloride 20 mEq ER Tab PO SCH (09:32)
[2017-05-10] MEDS: Lactobacillus Acidophilus 500 MU Cap PO SCH (09:36)
[2017-05-10] MEDS: Tramadol 25 mg PO SCH ×3 (09:36→18:03)
--- NOTE | 2017-05-10 10:06 | US ---
PROCEDURE: Ultrasound of the Kidneys HISTORY: Left nephrostomy tube was pulled. COMPARISON: None available. TECHNIQUE: Sonogram of the kidneys. FINDINGS: RIGHT KIDNEY: Measures: 10.3 cm. Normal in size, contour and echogenicity. No stone, solid mass lesion or hydronephrosis visualized. Nephrostomy tube noted. LEFT KIDNEY: Measures: 8.3 cm. Normal in size, contour and echogenicity. Questionable minimal hydronephrosis. Hydroureter noted. No mass or calculus. OTHER FINDINGS: None. IMPRESSION: Mild left hydronephrosis. Right nephrostomy tube. Left hydroureter.
--- NOTE | 2017-05-10 11:08 | CP.PCM.PN ---
<Marcelina Guevara - Last Filed: 05/10/17 15:37> Subjective - Date & Time of Evaluation Date of Evaluation: 05/10/17 Time of Evaluation: 07:15 - Subjective Subjective: PGY 2 Medicine Note- Dr. Eliceo Higgins's service Pt seen and examined in no acute distress. Patient requested some of the food that was brought in for her. An ROS was not obtained at this time. Objective - Vital Signs/Intake and Output Vital Signs (last 24 hours): Temp Pulse Resp BP Pulse Ox 98.2 F 116 H 18 100/62 100 05/10/17 08:46 05/10/17 08:46 05/10/17 08:46 05/10/17 08:46 05/10/17 08:46 Intake and Output: 05/10/17 05/10/17 06:59 18:59 Intake Total 2845 Output Total 1750 Balance 1095 - Medications Medications: Current Medications Ascorbic Acid (Vitamin C 500 Mg Tab) 500 mg PO DAILY [facility] Last Admin: 05/10/17 09:32 Dose: 500 mg Enoxaparin Sodium (Lovenox) 40 mg SC Q12 [facility] Last Admin: 05/07/17 21:41 Dose: 40 mg Fluconazole (Diflucan Iv 200 Mg/100 Ml Ns) 100 mls @ 100 mls/hr IVPB DAILY [facility] Last Admin: 05/10/17 09:32 Dose: 100 mls/hr Meropenem 500 mg/ Dextrose 100 mls @ 100 mls/hr IVPB Q8H [facility] Last Admin: 05/10/17 08:55 Dose: 100 mls/hr Heparin Sodium (Porcine) 1,000 units/ Amino Acids/Electrolytes/Dextrose 1,001 mls @ 83 mls/hr IV .Q12H4M ONE Stop: 05/10/17 18:03 Insulin Human Regular (Novolin R) 0 unit SC ACHS [facility] PRN Reason: Protocol Last Admin: 05/10/17 08:53 Dose: 2 unit Lactobacillus Acidophilus (Bacid Acidophilus) 1 cap PO DAILY [facility] Last Admin: 05/10/17 09:36 Dose: 1 cap Loperamide HCl (Imodium) 2 mg PO QID PRN PRN Reason: Diarrhea Last Admin: 05/01/17 22:58 Dose: 2 mg Magnesium Oxide (Mag-Ox) 400 mg PO DAILY [facility] Last Admin: 05/10/17 09:32 Dose: 400 mg Metoclopramide HCl (Reglan) 10 mg IVP ACHS [facility] Last Admin: 05/10/17 08:52 Dose: 10 mg Morphine Sulfate (Morphine) 1 mg IV Q6 PRN PRN Reason: Pain, severe (8-10) Multivitamins (Hexavitamin) 1 tab PO DAILY [facility] Last Admin: 05/10/17 09:32 Dose: 1 tab Petrolatum (Desitin Original) 0 gm TOP TID PRN PRN Reason: Rash Potassium Chloride (K-Dur 20 Meq Er Tab) 40 meq PO DAILY [facility] Last Admin: 05/10/17 09:32 Dose: 40 meq Tramadol HCl (Ultram) 25 mg PO TID [facility] Last Admin: 05/10/17 09:36 Dose: 25 mg Zinc Sulfate (Zinc Sulfate 220 Mg Cap) 220 mg PO DAILY [facility] Last Admin: 05/10/17 09:31 Dose: 220 mg - Labs Labs: 05/10/17 07:33 05/10/17 07:33 PT 11.9 SECONDS (9.7-12.2) 04/13/17 06:28 INR 1.1 04/13/17 06:28 APTT 27 SECONDS (21-34) 04/13/17 06:28 - Constitutional Appears: Non-toxic, Cachectic - Head Exam Head Exam: ATRAUMATIC, NORMAL INSPECTION - Eye Exam Eye Exam: EOMI, Normal appearance - ENT Exam ENT Exam: Mucous Membranes Moist - Neck Exam Neck Exam: Full ROM - Respiratory Exam Respiratory Exam: NORMAL BREATHING PATTERN - Cardiovascular Exam Cardiovascular Exam: +S1, +S2 - GI/Abdominal Exam GI & Abdominal Exam: Soft, Normal Bowel Sounds Additional comments: colostomy site appreciated with some yellow-brown stool noted ; site is clean and dry and non-erythematous., flexi-seal noted as well - Exam Additional comments: right nephrostomy tube noted - Extremities Exam Extremities Exam: Full ROM - Neurological Exam Neurological Exam: Awake - Psychiatric Exam Psychiatric exam: Normal Affect, Normal Mood - Skin Skin Exam: Dry, Normal Color, Warm Additional comments: dec skin turgor Assessment and Plan - Assessment and Plan (Free Text) Assessment: S/P debridement of midline incision with wound vac -Surgery on the case- F/U recommendations -Switch tylenol medication due to elevated LFTs. Tramadol scheduled as per Surgery team. 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 No hydronephrosis of the left kidney appreciated. A nephrostomy tube to be inserted once the renal collecting system becomes distended and procedure can be safely performed. -IV fluconazole -IV meropenem -mg ox 400 PO daily -MVs Transaminitis Avoid Hepatotoxic meds Hep Panel Cont to monitor Hx of DM -ISS -Accuchecks Dietary Support -TPN therapy -Dietary recommendations acknowledged to ensure adequate caloric intake. -Family supplements with home meals as well. GI/DVT Prophylaxis -protonix -lovenox Discussed with attending. Management and planning per Dr. Eliceo Higgins. <Tonya Higgins S - Last Filed: 05/24/17 16:42> Objective - Vital Signs/Intake and Output Vital Signs (last 24 hours): Temp Pulse Resp BP Pulse Ox 97.3 F L 106 H 20 109/65 100 05/24/17 15:00 05/24/17 15:00 05/24/17 15:00 05/24/17 15:00 05/24/17 15:00 Intake and Output: 05/24/17 05/24/17 06:59 18:59 Output Total 1350 400 Balance -1350 -400 - Medications Medications: Current Medications Acetaminophen/Codeine Phosphate (Tylenol/Codeine 300 Mg/30 Mg) 1 ea PO Q6 [facility] Last Admin: 05/24/17 05:21 Dose: Not Given Ascorbic Acid (Vitamin C 500 Mg Tab) 500 mg PO DAILY [facility] Last Admin: 05/24/17 09:56 Dose: Not Given Diphenhydramine HCl (Benadryl) 25 mg IVP Q8H [facility] Last Admin: 05/24/17 09:55 Dose: Not Given Enoxaparin Sodium (Lovenox) 40 mg SC Q12 [facility] Last Admin: 05/07/17 21:41 Dose: 40 mg Sodium Chloride (Sodium Chloride 0.9%) 1,000 mls @ 75 mls/hr IV .[id number] [facility] Last Admin: 05/24/17 01:00 Dose: 75 mls/hr Insulin Human Regular (Novolin R) 0 unit SC ACHS [facility] PRN Reason: Protocol Last Admin: 05/24/17 12:04 Dose: Not Given Lactobacillus Acidophilus (Bacid Acidophilus) 1 cap PO DAILY [facility] Last Admin: 05/24/17 09:55 Dose: Not Given Loperamide HCl (Imodium) 2 mg PO QID PRN PRN Reason: Diarrhea Last Admin: 05/01/17 22:58 Dose: 2 mg Magnesium Oxide (Mag-Ox) 400 mg PO DAILY [facility] Last Admin: 05/24/17 09:56 Dose: Not Given Multivitamins (Hexavitamin) 1 tab PO DAILY [facility] Last Admin: 05/24/17 09:56 Dose: Not Given Ondansetron HCl (Zofran Tab) 4 mg PO Q8H PRN PRN Reason: Nausea/Vomiting Last Admin: 05/22/17 09:13 Dose: 4 mg Petrolatum (Desitin Original) 0 gm TOP TID PRN PRN Reason: Rash Last Admin: 05/20/17 06:44 Dose: 1 applic Tramadol HCl (Ultram) 25 mg PO TID PRN PRN Reason: Pain, Mild (1-3) Last Admin: 05/23/17 17:56 Dose: 25 mg Zinc Sulfate (Zinc Sulfate 220 Mg Cap) 220 mg PO DAILY [facility] Last Admin: 05/24/17 09:56 Dose: Not Given - Labs Labs: 05/23/17 11:57 05/23/17 11:57 PT 11.9 SECONDS (9.7-12.2) 04/13/17 06:28 INR 1.1 04/13/17 06:28 APTT 27 SECONDS (21-34) 04/13/17 06:28 Assessment and Plan (1) Colonic fistula Status: Acute (2) Displacement of Mckeon catheter Status: Acute Attending/Attestation - Attestation I have personally seen and examined this patient.: Yes I have fully participated in the care of the patient.: Yes I have reviewed all pertinent clinical information, including history, physical exam and plan: Yes Notes (Text): Patient examined. Appetite is improved. Continue pending. Fluconazole. Continue supportive medications.
--- NOTE | 2017-05-10 13:55 | OP ---
PROCEDURE DATE: 05/08/2017 PREOPERATIVE DIAGNOSES: 1. Abdominal wound with slough and necrotic tissue. 2. Severe skin excoriation due to the ileostomy. 3. Severe malnutrition. 4. Resolving ileostomy site wounds. POSTOPERATIVE DIAGNOSES: 1. Abdominal wound with slough and necrotic tissue. 2. Severe skin excoriation due to the ileostomy. 3. Severe malnutrition. 4. Resolving ileostomy site wounds. PROCEDURES: 1. Abdominal midline wound debridement. 2. Negative pressure wound VAC therapy. 3. Ileostomy site care. SURGEON: Sumeet Cabral MD OPERATIONS AND MAINTENANCE SUPERVISOR: DANIEL Snyder and Zari Desouza, PGY-2 resident. TYPE OF ANESTHESIA: General endotracheal tube anesthesia. ESTIMATED BLOOD LOSS: Around 10 mL. DRAINS: The wound VAC was placed as a drain. COMPLICATIONS: None. PATHOLOGY: Pus and debrided tissue was sent for the culture and sensitivity. INTRAOPERATIVE FINDINGS: The patient had midline upper and lower abdominal wound with slough and pale granulation tissue and ileostomy is draining into the wound and at ileostomy site severe excoriation present with slowly healing wound surrounding the ileostomy site and procedure was done by fl Dr. Cabral. DESCRIPTION OF PROCEDURE: On intraoperative steps, this 61-year-old female who was previously operated for similar reason for abdominal wound draining and ileostomy and the patient underwent the ileostomy site debridement and the abdominal wound debridement and wound VAC placement. The patient was brought to the OR and placed supine on operating table for similar reason and consented. After induction of the anesthesia, abdomen was prepped and draped in usual sterile fashion and first ileostomy site care was done and after proper stoma placement, abdominal wound was debrided and the pus was sent for culture and sensitivity and the negative pressure wound VAC therapy was applied and after proper feel, the dry sterile dressing was applied and the patient was reversed from anesthesia and sent to the postanesthesia care unit in stable condition. There were no apparent complication. The patient tolerated procedure well. Count of the instrument and gauze was correct. Sumeet Cabral MD [facility]
--- NOTE | 2017-05-10 17:02 | CP.PCM.PN ---
Subjective - Date & Time of Evaluation Date of Evaluation: 05/10/17 Time of Evaluation: 09:00 - Subjective Subjective: EVENTS NOTED IV RX IN PROGRESS Objective - Vital Signs/Intake and Output Vital Signs (last 24 hours): Temp Pulse Resp BP Pulse Ox 98.6 F 118 H 18 95/62 L 100 05/10/17 15:00 05/10/17 15:00 05/10/17 15:00 05/10/17 15:00 05/10/17 15:00 Intake and Output: 05/10/17 05/10/17 06:59 18:59 Intake Total 2845 498 Output Total 1750 750 Balance 1095 -252 - Medications Medications: Current Medications Ascorbic Acid (Vitamin C 500 Mg Tab) 500 mg PO DAILY [facility] Last Admin: 05/10/17 09:32 Dose: 500 mg Enoxaparin Sodium (Lovenox) 40 mg SC Q12 [facility] Last Admin: 05/07/17 21:41 Dose: 40 mg Fluconazole (Diflucan Iv 200 Mg/100 Ml Ns) 100 mls @ 100 mls/hr IVPB DAILY [facility] Last Admin: 05/10/17 09:32 Dose: 100 mls/hr Meropenem 500 mg/ Dextrose 100 mls @ 100 mls/hr IVPB Q8H [facility] Last Admin: 05/10/17 08:55 Dose: 100 mls/hr Heparin Sodium (Porcine) 1,000 units/ Amino Acids/Electrolytes/Dextrose 1,001 mls @ 83 mls/hr IV .Q12H4M ONE Stop: 05/10/17 18:03 Last Admin: 05/10/17 12:26 Dose: 83 mls/hr Multivitamins/Vitamin C 10 ml/Heparin Sodium (Porcine) 1, 000 units/ Chromium/ Copper/Manganese/Zinc 1 ml/ Amino Acids/Electrolytes/Dextrose 1,012 mls @ 83 mls/hr IV .[id number] ONE Stop: 05/11/17 06:11 Chromium/Copper/Manganese/Zinc 1 ml/ Heparin Sodium (Porcine ) 1,000 units/ Amino Acids/Electrolytes/Dextrose 1,002 mls @ 83 mls/hr IV .Q12H5M ONE Stop: 05/11/17 18:04 Fat Emulsion Intravenous (Intralipid 20%) 250 mls @ 83 mls/hr IV 1800 ONE Stop: 05/10/17 21:00 Insulin Human Regular (Novolin R) 0 unit SC ACHS [facility] PRN Reason: Protocol Last Admin: 05/10/17 12:25 Dose: 3 unit Lactobacillus Acidophilus (Bacid Acidophilus) 1 cap PO DAILY [facility] Last Admin: 05/10/17 09:36 Dose: 1 cap Loperamide HCl (Imodium) 2 mg PO QID PRN PRN Reason: Diarrhea Last Admin: 05/01/17 22:58 Dose: 2 mg Magnesium Oxide (Mag-Ox) 400 mg PO DAILY [facility] Last Admin: 05/10/17 09:32 Dose: 400 mg Metoclopramide HCl (Reglan) 10 mg IVP ACHS [facility] Last Admin: 05/10/17 12:25 Dose: 10 mg Morphine Sulfate (Morphine) 1 mg IV Q6 PRN PRN Reason: Pain, severe (8-10) Multivitamins (Hexavitamin) 1 tab PO DAILY [facility] Last Admin: 05/10/17 09:32 Dose: 1 tab Petrolatum (Desitin Original) 0 gm TOP TID PRN PRN Reason: Rash Potassium Chloride (K-Dur 20 Meq Er Tab) 40 meq PO DAILY [facility] Last Admin: 05/10/17 09:32 Dose: 40 meq Tramadol HCl (Ultram) 25 mg PO TID [facility] Last Admin: 05/10/17 14:45 Dose: 25 mg Zinc Sulfate (Zinc Sulfate 220 Mg Cap) 220 mg PO DAILY [facility] Last Admin: 05/10/17 09:31 Dose: 220 mg - Labs Labs: 05/10/17 07:33 05/10/17 07:33 PT 11.9 SECONDS (9.7-12.2) 04/13/17 06:28 INR 1.1 04/13/17 06:28 APTT 27 SECONDS (21-34) 04/13/17 06:28 Assessment and Plan (1) Colonic fistula Status: Acute (2) Displacement of Mckeon catheter Status: Acute
--- NOTE | 2017-05-10 17:13 | CP.PCM.PN ---
<Vikki Sims - Last Filed: 05/10/17 17:17> Subjective - Date & Time of Evaluation Date of Evaluation: 05/10/17 Time of Evaluation: 10:00 - Subjective Subjective: GENERAL SURGERY PROGRESS NOTE FOR DR. CABRAL Patient seen and examined at bedside. She reports some pain and burning from the ostomy site. It is currently being changed. Wound vac in place. Objective - Vital Signs/Intake and Output Vital Signs (last 24 hours): Temp Pulse Resp BP Pulse Ox 98.6 F 118 H 18 95/62 L 100 05/10/17 15:00 05/10/17 15:00 05/10/17 15:00 05/10/17 15:00 05/10/17 15:00 Intake and Output: 05/10/17 05/10/17 06:59 18:59 Intake Total 2845 498 Output Total 1750 750 Balance 1095 -252 - Medications Medications: Current Medications Ascorbic Acid (Vitamin C 500 Mg Tab) 500 mg PO DAILY [facility] Last Admin: 05/10/17 09:32 Dose: 500 mg Enoxaparin Sodium (Lovenox) 40 mg SC Q12 [facility] Last Admin: 05/07/17 21:41 Dose: 40 mg Fluconazole (Diflucan Iv 200 Mg/100 Ml Ns) 100 mls @ 100 mls/hr IVPB DAILY [facility] Last Admin: 05/10/17 09:32 Dose: 100 mls/hr Meropenem 500 mg/ Dextrose 100 mls @ 100 mls/hr IVPB Q8H [facility] Last Admin: 05/10/17 08:55 Dose: 100 mls/hr Heparin Sodium (Porcine) 1,000 units/ Amino Acids/Electrolytes/Dextrose 1,001 mls @ 83 mls/hr IV .Q12H4M ONE Stop: 05/10/17 18:03 Last Admin: 05/10/17 12:26 Dose: 83 mls/hr Multivitamins/Vitamin C 10 ml/Heparin Sodium (Porcine) 1, 000 units/ Chromium/ Copper/Manganese/Zinc 1 ml/ Amino Acids/Electrolytes/Dextrose 1,012 mls @ 83 mls/hr IV .[id number] ONE Stop: 05/11/17 06:11 Chromium/Copper/Manganese/Zinc 1 ml/ Heparin Sodium (Porcine ) 1,000 units/ Amino Acids/Electrolytes/Dextrose 1,002 mls @ 83 mls/hr IV .Q12H5M ONE Stop: 05/11/17 18:04 Fat Emulsion Intravenous (Intralipid 20%) 250 mls @ 83 mls/hr IV 1800 ONE Stop: 05/10/17 21:00 Insulin Human Regular (Novolin R) 0 unit SC ACHS [facility] PRN Reason: Protocol Last Admin: 05/10/17 12:25 Dose: 3 unit Lactobacillus Acidophilus (Bacid Acidophilus) 1 cap PO DAILY [facility] Last Admin: 05/10/17 09:36 Dose: 1 cap Loperamide HCl (Imodium) 2 mg PO QID PRN PRN Reason: Diarrhea Last Admin: 05/01/17 22:58 Dose: 2 mg Magnesium Oxide (Mag-Ox) 400 mg PO DAILY [facility] Last Admin: 05/10/17 09:32 Dose: 400 mg Metoclopramide HCl (Reglan) 10 mg IVP ACHS [facility] Last Admin: 05/10/17 12:25 Dose: 10 mg Morphine Sulfate (Morphine) 1 mg IV Q6 PRN PRN Reason: Pain, severe (8-10) Multivitamins (Hexavitamin) 1 tab PO DAILY [facility] Last Admin: 05/10/17 09:32 Dose: 1 tab Petrolatum (Desitin Original) 0 gm TOP TID PRN PRN Reason: Rash Potassium Chloride (K-Dur 20 Meq Er Tab) 40 meq PO DAILY [facility] Last Admin: 05/10/17 09:32 Dose: 40 meq Tramadol HCl (Ultram) 25 mg PO TID [facility] Last Admin: 05/10/17 14:45 Dose: 25 mg Zinc Sulfate (Zinc Sulfate 220 Mg Cap) 220 mg PO DAILY [facility] Last Admin: 05/10/17 09:31 Dose: 220 mg - Labs Labs: 05/10/17 07:33 05/10/17 07:33 PT 11.9 SECONDS (9.7-12.2) 04/13/17 06:28 INR 1.1 04/13/17 06:28 APTT 27 SECONDS (21-34) 04/13/17 06:28 - Constitutional Appears: Chronically Ill - Respiratory Exam Respiratory Exam: NORMAL BREATHING PATTERN. absent: Respiratory Distress - Cardiovascular Exam Cardiovascular Exam: +S1, +S2 - GI/Abdominal Exam Additional comments: wound vac in place ostomy appliance in place with liquid stool R nephrostomy tube present dressing over removed saad drain changed - Neurological Exam Neurological Exam: Alert, Awake - Psychiatric Exam Psychiatric exam: Normal Affect, Normal Mood Assessment and Plan - Assessment and Plan (Free Text) Assessment: 61 y/o F POD#2 s/p wound debridement, wound vac replacement, and ostomy care, POD#28 s/p ex-lap, small bowel resection, bladder repair, appendectomy, and ileostomy - Cont pain management - Cont Abx per ID - Cont TPN - Per IR, can have left nephrostomy replaced once hydronephrosis develops - Will discuss case with urology regarding need for ureterogram, cystogram Pt discussed w/ Dr. Misha Sims PGY-3 <Sumeet Cabral - Last Filed: 05/14/17 16:28> Objective - Vital Signs/Intake and Output Vital Signs (last 24 hours): Temp Pulse Resp BP Pulse Ox 98.2 F 108 H 18 118/68 100 05/14/17 09:20 05/14/17 09:20 05/14/17 09:20 05/14/17 09:20 05/14/17 09:20 Intake and Output: 05/14/17 05/14/17 06:59 18:59 Intake Total 250 Output Total 800 Balance -550 - Medications Medications: Current Medications Acetaminophen/Codeine Phosphate (Tylenol/Codeine 300 Mg/30 Mg) 1 ea PO Q6 [facility] Last Admin: 05/14/17 12:44 Dose: Not Given Ascorbic Acid (Vitamin C 500 Mg Tab) 500 mg PO DAILY [facility] Last Admin: 05/14/17 10:23 Dose: 500 mg Enoxaparin Sodium (Lovenox) 40 mg SC Q12 [facility] Last Admin: 05/07/17 21:41 Dose: 40 mg Fluconazole (Diflucan Iv 200 Mg/100 Ml Ns) 100 mls @ 100 mls/hr IVPB DAILY [facility] Last Admin: 05/14/17 10:18 Dose: 100 mls/hr Multivitamins/Vitamin C 10 ml/Chromium/Copper/Manganese/Zinc 1 ml/ Amino Acids 1,011 mls @ 42 mls/hr IV .Q24H [facility] Last Admin: 05/13/17 17:39 Dose: 42 mls/hr Tigecycline 50 mg/ Dextrose 100 mls @ 100 mls/hr IVPB Q12H [facility] Insulin Human Regular (Novolin R) 0 unit SC ACHS [facility] PRN Reason: Protocol Last Admin: 05/14/17 12:40 Dose: Not Given Lactobacillus Acidophilus (Bacid Acidophilus) 1 cap PO DAILY [facility] Last Admin: 05/14/17 10:18 Dose: 1 cap Loperamide HCl (Imodium) 2 mg PO QID PRN PRN Reason: Diarrhea Last Admin: 05/01/17 22:58 Dose: 2 mg Magnesium Oxide (Mag-Ox) 400 mg PO DAILY [facility] Last Admin: 05/14/17 10:22 Dose: 400 mg Metoclopramide HCl (Reglan) 10 mg IVP ACHS [facility] Last Admin: 05/14/17 12:41 Dose: Not Given Multivitamins (Hexavitamin) 1 tab PO DAILY [facility] Last Admin: 05/14/17 10:22 Dose: 1 tab Petrolatum (Desitin Original) 0 gm TOP TID PRN PRN Reason: Rash Tramadol HCl (Ultram) 25 mg PO TID PRN PRN Reason: Pain, Mild (1-3) Zinc Sulfate (Zinc Sulfate 220 Mg Cap) 220 mg PO DAILY [facility] Last Admin: 05/14/17 10:23 Dose: 220 mg - Labs Labs: 05/11/17 06:54 05/11/17 06:54 PT 11.9 SECONDS (9.7-12.2) 04/13/17 06:28 INR 1.1 04/13/17 06:28 APTT 27 SECONDS (21-34) 04/13/17 06:28 Attending/Attestation - Attestation I have personally seen and examined this patient.: Yes I have fully participated in the care of the patient.: Yes I have reviewed all pertinent clinical information, including history, physical exam and plan: Yes Notes (Text): Pt was seen and examined at bedside Agree with above note and assessment Ileostomy care c/w current mx
[2017-05-10] MEDS ORDERED: TPN #7 IV ONE (18:00)
[2017-05-10] MEDS ORDERED: Fat Emulsion 20% IV 250 ML IV ONE (18:00)
--- NOTE | 2017-05-10 19:59 | CP.PCM.PN ---
Subjective - Date & Time of Evaluation Date of Evaluation: 05/10/17 Time of Evaluation: 10:20 - Subjective Subjective: clinically same Objective - Vital Signs/Intake and Output Vital Signs (last 24 hours): Temp Pulse Resp BP Pulse Ox 98.6 F 118 H 18 95/62 L 100 05/10/17 15:00 05/10/17 15:00 05/10/17 15:00 05/10/17 15:00 05/10/17 15:00 Intake and Output: 05/10/17 05/11/17 18:59 06:59 Intake Total 498 Output Total 750 Balance -252 - Medications Medications: Current Medications Ascorbic Acid (Vitamin C 500 Mg Tab) 500 mg PO DAILY [facility] Last Admin: 05/10/17 09:32 Dose: 500 mg Enoxaparin Sodium (Lovenox) 40 mg SC Q12 [facility] Last Admin: 05/07/17 21:41 Dose: 40 mg Fluconazole (Diflucan Iv 200 Mg/100 Ml Ns) 100 mls @ 100 mls/hr IVPB DAILY [facility] Last Admin: 05/10/17 09:32 Dose: 100 mls/hr Meropenem 500 mg/ Dextrose 100 mls @ 100 mls/hr IVPB Q8H [facility] Last Admin: 05/10/17 17:51 Dose: 100 mls/hr Multivitamins/Vitamin C 10 ml/Heparin Sodium (Porcine) 1, 000 units/ Chromium/ Copper/Manganese/Zinc 1 ml/ Amino Acids/Electrolytes/Dextrose 1,012 mls @ 83 mls/hr IV .[id number] ONE Stop: 05/11/17 06:11 Last Admin: 05/10/17 17:53 Dose: 83 mls/hr Chromium/Copper/Manganese/Zinc 1 ml/ Heparin Sodium (Porcine ) 1,000 units/ Amino Acids/Electrolytes/Dextrose 1,002 mls @ 83 mls/hr IV .[id number] ONE Stop: 05/11/17 18:04 Fat Emulsion Intravenous (Intralipid 20%) 250 mls @ 83 mls/hr IV 1800 ONE Stop: 05/10/17 21:00 Last Admin: 05/10/17 17:53 Dose: 83 mls/hr Insulin Human Regular (Novolin R) 0 unit SC ACHS [facility] PRN Reason: Protocol Last Admin: 05/10/17 17:50 Dose: 5 unit Lactobacillus Acidophilus (Bacid Acidophilus) 1 cap PO DAILY [facility] Last Admin: 05/10/17 09:36 Dose: 1 cap Loperamide HCl (Imodium) 2 mg PO QID PRN PRN Reason: Diarrhea Last Admin: 05/01/17 22:58 Dose: 2 mg Magnesium Oxide (Mag-Ox) 400 mg PO DAILY [facility] Last Admin: 05/10/17 09:32 Dose: 400 mg Metoclopramide HCl (Reglan) 10 mg IVP ACHS [facility] Last Admin: 05/10/17 17:51 Dose: 10 mg Morphine Sulfate (Morphine) 1 mg IV Q6 PRN PRN Reason: Pain, severe (8-10) Multivitamins (Hexavitamin) 1 tab PO DAILY [facility] Last Admin: 05/10/17 09:32 Dose: 1 tab Petrolatum (Desitin Original) 0 gm TOP TID PRN PRN Reason: Rash Potassium Chloride (K-Dur 20 Meq Er Tab) 40 meq PO DAILY [facility] Last Admin: 05/10/17 09:32 Dose: 40 meq Tramadol HCl (Ultram) 25 mg PO TID [facility] Last Admin: 05/10/17 18:03 Dose: 25 mg Zinc Sulfate (Zinc Sulfate 220 Mg Cap) 220 mg PO DAILY [facility] Last Admin: 05/10/17 09:31 Dose: 220 mg - Labs Labs: 05/10/17 07:33 05/10/17 07:33 PT 11.9 SECONDS (9.7-12.2) 04/13/17 06:28 INR 1.1 04/13/17 06:28 APTT 27 SECONDS (21-34) 04/13/17 06:28 - Constitutional Appears: Well - Head Exam Head Exam: ATRAUMATIC, NORMAL INSPECTION, NORMOCEPHALIC - Eye Exam Eye Exam: EOMI, Normal appearance, PERRL Pupil Exam: NORMAL ACCOMODATION, PERRL - ENT Exam ENT Exam: Mucous Membranes Moist, Normal Exam - Neck Exam Neck Exam: Full ROM, Normal Inspection. absent: Lymphadenopathy - Respiratory Exam Respiratory Exam: Decreased Breath Sounds - Cardiovascular Exam Cardiovascular Exam: REGULAR RHYTHM, +S1, +S2 - GI/Abdominal Exam GI & Abdominal Exam: Soft, Diminished Bowel Sounds - Rectal Exam Rectal Exam: Deferred - Back Exam Back Exam: NORMAL INSPECTION - Neurological Exam Neurological Exam: Alert, Awake, CN II-XII Intact, Normal Gait, Oriented x3 - Psychiatric Exam Psychiatric exam: Normal Affect, Normal Mood - Skin Skin Exam: Dry, Intact, Normal Color, Warm Assessment and Plan (1) Colonic fistula Status: Acute (2) Displacement of Mckeon catheter Status: Acute - Assessment and Plan (Free Text) Plan: Patient examined. Diffuse abdominal pain present. Continue broad-spectrum antibiotic. Continue insulin, other antidiabetic medications, antihypertensive medications and supportive care.
[2017-05-11] MEDS: Meropenem 500 MG in Dextrose 5% In Water 100 ML IVPB SCH ×3 (00:07→16:39)
[2017-05-11] MEDS ORDERED: TPN #8 IV ONE (06:00)
[2017-05-11 07:04] LABS: BASO % 0.3 % (0.0-2.0); EOS # 0.2 K/uL (0.0-0.7); EOS % 2.1 % (0.0-4.0); HEMATOCRIT 29.5 % (34.0-47.0); LYMPH # 1.9 K/uL (1.0-4.3); LYMPH % 19.9 % (20.0-40.0); MEAN CELL VOLUME 85.4 fL (81.0-99.0); MEAN CORPUSCULAR HEMOGLOBIN 28.3 pg (27.0-31.0); MEAN CORPUSCULAR HGB CONC 33.2 g/dL (33.0-37.0); MEAN PLATELET VOLUME 8.6 fL (7.2-11.7); MONO # 0.7 K/uL (0.0-0.8); MONO % 7.4 % (0.0-10.0); NRBC % 0.1 % (0.0-2.0); RED CELL DISTRIBUTION WIDTH 14.3 % (11.5-14.5); WHITE BLOOD COUNT 9.4 K/uL (4.8-10.8)
[2017-05-11 07:10] LABS: CHLORIDE 90 mmol/L (98-107); POTASSIUM 5.3 mmol/L (3.6-5.2); SODIUM 123 mmol/L (132-148)
[2017-05-11 07:12] LABS: BILIRUBIN,TOTAL 0.4 mg/dL (0.2-1.3); CARBON DIOXIDE 29 mmol/L (22-30); GFR AFRICAN-AMERICAN > 60
[2017-05-11 07:13] LABS: ALB/GLOB RATIO 0.5 (1.0-2.1); ALKALINE PHOSPHATASE 401 U/L (38-126); ALT/SGPT 57 U/L (9-52); AST/SGOT 29 U/L (14-36); BLOOD UREA NITROGEN 29 mg/dL (7-17); CALCIUM 9.1 mg/dl (8.6-10.4); MAGNESIUM 1.2 mg/dL (1.6-2.3); PHOSPHOROUS 2.8 mg/dL (2.5-4.5); TOTAL PROTEIN 6.9 g/dL (6.3-8.3)
[2017-05-11 07:21] LABS: GLUCOSE,RANDOM 503 mg/dL (65-105)
[2017-05-11] MEDS: (Novolin R) Insulin Human Regular 100 units/ml vial SC SCH ×3 (07:37→22:55)
[2017-05-11] MEDS: Tramadol 25 mg PO SCH ×3 (08:57→13:49)
[2017-05-11] MEDS: Fluconazole IV 200mg/100 ml NS 100 ML IVPB SCH (09:12)
[2017-05-11] MEDS: Lactobacillus Acidophilus 500 MU Cap PO SCH (09:13)
[2017-05-11] MEDS: Magnesium Oxide 400 mg Tab UD PO SCH (09:13)
[2017-05-11] MEDS: Potassium Chloride 20 mEq ER Tab PO SCH (09:13)
[2017-05-11] MEDS: Multiple Vitamins Tab PO SCH (09:13)
--- NOTE | 2017-05-11 11:42 | CP.PCM.PN ---
<Elbert Romero - Last Filed: 05/11/17 11:45> Subjective - Date & Time of Evaluation Date of Evaluation: 05/11/17 Time of Evaluation: 11:39 - Subjective Subjective: Surgery: Dr. Cabral Pt seen and examined. Had leakage from ostomy site overnight. Minimal leakage noted on exam. Objective - Vital Signs/Intake and Output Vital Signs (last 24 hours): Temp Pulse Resp BP Pulse Ox 98.6 F 128 H 20 96/59 L 95 05/11/17 07:15 05/11/17 07:15 05/11/17 07:15 05/11/17 07:15 05/11/17 07:15 Intake and Output: 05/11/17 05/11/17 06:59 18:59 Intake Total 781 Output Total 1600 Balance -819 - Medications Medications: Current Medications Ascorbic Acid (Vitamin C 500 Mg Tab) 500 mg PO DAILY [facility] Last Admin: 05/11/17 09:13 Dose: 500 mg Enoxaparin Sodium (Lovenox) 40 mg SC Q12 [facility] Last Admin: 05/07/17 21:41 Dose: 40 mg Fluconazole (Diflucan Iv 200 Mg/100 Ml Ns) 100 mls @ 100 mls/hr IVPB DAILY [facility] Last Admin: 05/11/17 09:12 Dose: 100 mls/hr Meropenem 500 mg/ Dextrose 100 mls @ 100 mls/hr IVPB Q8H [facility] Last Admin: 05/11/17 07:38 Dose: 100 mls/hr Chromium/Copper/Manganese/Zinc 1 ml/ Heparin Sodium (Porcine ) 1,000 units/ Amino Acids/Electrolytes/Dextrose 1,002 mls @ 83 mls/hr IV .[id number] ONE Stop: 05/11/17 18:04 Last Admin: 05/11/17 09:16 Dose: 83 mls/hr Insulin Human Regular (Novolin R) 0 unit SC ACHS [facility] PRN Reason: Protocol Lactobacillus Acidophilus (Bacid Acidophilus) 1 cap PO DAILY [facility] Last Admin: 05/11/17 09:13 Dose: 1 cap Loperamide HCl (Imodium) 2 mg PO QID PRN PRN Reason: Diarrhea Last Admin: 05/01/17 22:58 Dose: 2 mg Magnesium Oxide (Mag-Ox) 400 mg PO DAILY [facility] Last Admin: 05/11/17 09:13 Dose: 400 mg Metoclopramide HCl (Reglan) 10 mg IVP ACHS [facility] Last Admin: 05/11/17 07:38 Dose: 10 mg Morphine Sulfate (Morphine) 1 mg IV Q6 PRN PRN Reason: Pain, severe (8-10) Multivitamins (Hexavitamin) 1 tab PO DAILY [facility] Last Admin: 05/11/17 09:13 Dose: 1 tab Petrolatum (Desitin Original) 0 gm TOP TID PRN PRN Reason: Rash Potassium Chloride (K-Dur 20 Meq Er Tab) 40 meq PO DAILY [facility] Last Admin: 05/11/17 09:13 Dose: 40 meq Tramadol HCl (Ultram) 25 mg PO TID [facility] Last Admin: 05/11/17 09:11 Dose: 25 mg Zinc Sulfate (Zinc Sulfate 220 Mg Cap) 220 mg PO DAILY [facility] Last Admin: 05/11/17 09:13 Dose: 220 mg - Labs Labs: 05/11/17 06:54 05/11/17 06:54 PT 11.9 SECONDS (9.7-12.2) 04/13/17 06:28 INR 1.1 04/13/17 06:28 APTT 27 SECONDS (21-34) 04/13/17 06:28 - Constitutional Appears: Older Than Stated Age, Cachectic, Chronically Ill - Head Exam Head Exam: ATRAUMATIC, NORMOCEPHALIC - Eye Exam Eye Exam: EOMI - ENT Exam ENT Exam: Mucous Membranes Moist - Neck Exam Neck Exam: Full ROM - Respiratory Exam Respiratory Exam: NORMAL BREATHING PATTERN. absent: Accessory Muscle Use, Respiratory Distress - Cardiovascular Exam Cardiovascular Exam: Tachycardia - GI/Abdominal Exam GI & Abdominal Exam: Soft. absent: Distended, Firm, Guarding, Rigid, Tenderness Additional comments: stoma pink and patent w. loose stool output Midline incision, wound vac inplace, no leaks notes - Extremities Exam Extremities Exam: absent: Calf Tenderness, Pedal Edema - Neurological Exam Neurological Exam: Alert, Awake Assessment and Plan - Assessment and Plan (Free Text) Assessment: 61F POD#29 s/p ex-lap, small bowel resection, bladder repair, appendectomy, and ileostomy -Monitor ostomy, reinforce PRN -c/w daily TPN -pain management -f/u urology recommendations -d/w attending [facility] PGY3 <Sumeet Cabral - Last Filed: 05/14/17 16:34> Objective - Vital Signs/Intake and Output Vital Signs (last 24 hours): Temp Pulse Resp BP Pulse Ox 98.2 F 108 H 18 118/68 100 05/14/17 09:20 05/14/17 09:20 05/14/17 09:20 05/14/17 09:20 05/14/17 09:20 Intake and Output: 05/14/17 05/14/17 06:59 18:59 Intake Total 250 Output Total 800 Balance -550 - Medications Medications: Current Medications Acetaminophen/Codeine Phosphate (Tylenol/Codeine 300 Mg/30 Mg) 1 ea PO Q6 [facility] Last Admin: 05/14/17 12:44 Dose: Not Given Ascorbic Acid (Vitamin C 500 Mg Tab) 500 mg PO DAILY [facility] Last Admin: 05/14/17 10:23 Dose: 500 mg Enoxaparin Sodium (Lovenox) 40 mg SC Q12 [facility] Last Admin: 05/07/17 21:41 Dose: 40 mg Fluconazole (Diflucan Iv 200 Mg/100 Ml Ns) 100 mls @ 100 mls/hr IVPB DAILY [facility] Last Admin: 05/14/17 10:18 Dose: 100 mls/hr Multivitamins/Vitamin C 10 ml/Chromium/Copper/Manganese/Zinc 1 ml/ Amino Acids 1,011 mls @ 42 mls/hr IV .Q24H [facility] Last Admin: 05/13/17 17:39 Dose: 42 mls/hr Tigecycline 50 mg/ Dextrose 100 mls @ 100 mls/hr IVPB Q12H [facility] Insulin Human Regular (Novolin R) 0 unit SC ACHS [facility] PRN Reason: Protocol Last Admin: 05/14/17 12:40 Dose: Not Given Lactobacillus Acidophilus (Bacid Acidophilus) 1 cap PO DAILY [facility] Last Admin: 05/14/17 10:18 Dose: 1 cap Loperamide HCl (Imodium) 2 mg PO QID PRN PRN Reason: Diarrhea Last Admin: 05/01/17 22:58 Dose: 2 mg Magnesium Oxide (Mag-Ox) 400 mg PO DAILY [facility] Last Admin: 05/14/17 10:22 Dose: 400 mg Metoclopramide HCl (Reglan) 10 mg IVP ACHS [facility] Last Admin: 05/14/17 12:41 Dose: Not Given Multivitamins (Hexavitamin) 1 tab PO DAILY [facility] Last Admin: 05/14/17 10:22 Dose: 1 tab Petrolatum (Desitin Original) 0 gm TOP TID PRN PRN Reason: Rash Tramadol HCl (Ultram) 25 mg PO TID PRN PRN Reason: Pain, Mild (1-3) Zinc Sulfate (Zinc Sulfate 220 Mg Cap) 220 mg PO DAILY [facility] Last Admin: 05/14/17 10:23 Dose: 220 mg - Labs Labs: 05/11/17 06:54 05/11/17 06:54 PT 11.9 SECONDS (9.7-12.2) 04/13/17 06:28 INR 1.1 04/13/17 06:28 APTT 27 SECONDS (21-34) 04/13/17 06:28 Attending/Attestation - Attestation I have personally seen and examined this patient.: Yes I have fully participated in the care of the patient.: Yes I have reviewed all pertinent clinical information, including history, physical exam and plan: Yes Notes (Text): Pt was seen and examined at bedside Agree with above note and assessment Ileostomy leaking in wond vac OR for Wound debridement Plan d.w pt in detail Risk and benefit explained in detail
[2017-05-11] MEDS ORDERED: TPN IV ONE (18:00)
--- NOTE | 2017-05-11 18:19 | CP.PCM.PN ---
Subjective - Date & Time of Evaluation Date of Evaluation: 05/11/17 Time of Evaluation: 09:00 - Subjective Subjective: wound now growing vre iv zyvox added Objective - Vital Signs/Intake and Output Vital Signs (last 24 hours): Temp Pulse Resp BP Pulse Ox 97.8 F 128 H 20 96/61 L 99 05/11/17 15:16 05/11/17 15:16 05/11/17 15:16 05/11/17 15:16 05/11/17 15:16 Intake and Output: 05/11/17 05/11/17 06:59 18:59 Intake Total 781 320 Output Total 1600 770 Balance -819 -450 - Medications Medications: Current Medications Acetaminophen/Codeine Phosphate (Tylenol/Codeine 300 Mg/30 Mg) 1 ea PO Q6 [facility] Ascorbic Acid (Vitamin C 500 Mg Tab) 500 mg PO DAILY [facility] Last Admin: 05/11/17 09:13 Dose: 500 mg Enoxaparin Sodium (Lovenox) 40 mg SC Q12 [facility] Last Admin: 05/07/17 21:41 Dose: 40 mg Fluconazole (Diflucan Iv 200 Mg/100 Ml Ns) 100 mls @ 100 mls/hr IVPB DAILY [facility] Last Admin: 05/11/17 09:12 Dose: 100 mls/hr Meropenem 500 mg/ Dextrose 100 mls @ 100 mls/hr IVPB Q8H [facility] Last Admin: 05/11/17 16:39 Dose: 100 mls/hr Linezolid (Zyvox 600mg/300ml D5w) 600 mg in 300 mls @ 200 mls/hr IVPB Q12 [facility] Multivitamins/Vitamin C 10 ml/Heparin Sodium (Porcine) 1, 000 units/ Chromium/ Copper/Manganese/Zinc 1 ml/ Sodium Chloride 35 meq/ Magnesium Sulfate 6 meq/ Amino Acids 1,022.2278 mls @ 83 mls/hr IV .[id number] ONE Stop: 05/12/17 06:18 Last Admin: 05/11/17 17:41 Dose: 83 mls/hr Chromium/Copper/Manganese/Zinc 1 ml/ Heparin Sodium (Porcine ) 1,000 units/ Sodium Chloride 35 meq/ Magnesium Sulfate 6 meq/ Amino Acids 1,012.2278 mls @ 83 mls/hr IV .[id number] ONE Stop: 05/12/17 18:11 Insulin Human Regular (Novolin R) 0 unit SC ACHS [facility] PRN Reason: Protocol Last Admin: 05/11/17 17:40 Dose: 3 unit Ketorolac Tromethamine (Toradol) 15 mg IVP Q6 PRN PRN Reason: Pain, moderate (4-7) Lactobacillus Acidophilus (Bacid Acidophilus) 1 cap PO DAILY [facility] Last Admin: 05/11/17 09:13 Dose: 1 cap Loperamide HCl (Imodium) 2 mg PO QID PRN PRN Reason: Diarrhea Last Admin: 05/01/17 22:58 Dose: 2 mg Magnesium Oxide (Mag-Ox) 400 mg PO DAILY [facility] Last Admin: 05/11/17 09:13 Dose: 400 mg Metoclopramide HCl (Reglan) 10 mg IVP ACHS [facility] Last Admin: 05/11/17 17:40 Dose: 10 mg Multivitamins (Hexavitamin) 1 tab PO DAILY [facility] Last Admin: 05/11/17 09:13 Dose: 1 tab Petrolatum (Desitin Original) 0 gm TOP TID PRN PRN Reason: Rash Tramadol HCl (Ultram) 25 mg PO TID PRN PRN Reason: Pain, Mild (1-3) Zinc Sulfate (Zinc Sulfate 220 Mg Cap) 220 mg PO DAILY [facility] Last Admin: 05/11/17 09:13 Dose: 220 mg - Labs Labs: 05/11/17 06:54 05/11/17 06:54 PT 11.9 SECONDS (9.7-12.2) 04/13/17 06:28 INR 1.1 04/13/17 06:28 APTT 27 SECONDS (21-34) 04/13/17 06:28 - Constitutional Appears: Non-toxic, Cachectic - Head Exam Head Exam: NORMOCEPHALIC - Eye Exam Eye Exam: PERRL - ENT Exam ENT Exam: Mucous Membranes Dry - Neck Exam Neck Exam: absent: Lymphadenopathy - Respiratory Exam Respiratory Exam: Decreased Breath Sounds - Cardiovascular Exam Cardiovascular Exam: REGULAR RHYTHM - GI/Abdominal Exam GI & Abdominal Exam: Distended Assessment and Plan (1) Colonic fistula Status: Acute (2) Displacement of Mckeon catheter Status: Acute
[2017-05-11] MEDS: Acetaminophen-Codeine 300/30 mg Tab PO SCH (19:39)
[2017-05-11] MEDS: Linezolid 600 mg in D5W 300 ml 600 MG/300 ML BAG IVPB SCH (21:26)
--- NOTE | 2017-05-11 21:54 | CP.PCM.PN ---
Subjective - Date & Time of Evaluation Date of Evaluation: 05/11/17 Time of Evaluation: 12:20 - Subjective Subjective: clinically same Objective - Vital Signs/Intake and Output Vital Signs (last 24 hours): Temp Pulse Resp BP Pulse Ox 97.8 F 128 H 20 96/61 L 99 05/11/17 15:16 05/11/17 15:16 05/11/17 15:16 05/11/17 15:16 05/11/17 15:16 Intake and Output: 05/11/17 05/12/17 18:59 06:59 Intake Total 320 Output Total 770 Balance -450 - Medications Medications: Current Medications Acetaminophen/Codeine Phosphate (Tylenol/Codeine 300 Mg/30 Mg) 1 ea PO Q6 [facility] Last Admin: 05/11/17 19:39 Dose: Not Given Ascorbic Acid (Vitamin C 500 Mg Tab) 500 mg PO DAILY [facility] Last Admin: 05/11/17 09:13 Dose: 500 mg Enoxaparin Sodium (Lovenox) 40 mg SC Q12 [facility] Last Admin: 05/07/17 21:41 Dose: 40 mg Fluconazole (Diflucan Iv 200 Mg/100 Ml Ns) 100 mls @ 100 mls/hr IVPB DAILY [facility] Last Admin: 05/11/17 09:12 Dose: 100 mls/hr Meropenem 500 mg/ Dextrose 100 mls @ 100 mls/hr IVPB Q8H [facility] Last Admin: 05/11/17 16:39 Dose: 100 mls/hr Linezolid (Zyvox 600mg/300ml D5w) 600 mg in 300 mls @ 200 mls/hr IVPB Q12 [facility] Last Admin: 05/11/17 21:26 Dose: 200 mls/hr Multivitamins/Vitamin C 10 ml/Heparin Sodium (Porcine) 1, 000 units/ Chromium/ Copper/Manganese/Zinc 1 ml/ Sodium Chloride 35 meq/ Magnesium Sulfate 6 meq/ Amino Acids 1,022.2278 mls @ 83 mls/hr IV .[id number] ONE Stop: 05/12/17 06:18 Last Admin: 05/11/17 17:41 Dose: 83 mls/hr Chromium/Copper/Manganese/Zinc 1 ml/ Heparin Sodium (Porcine ) 1,000 units/ Sodium Chloride 35 meq/ Magnesium Sulfate 6 meq/ Amino Acids 1,012.2278 mls @ 83 mls/hr IV .[id number] ONE Stop: 05/12/17 18:11 Insulin Human Regular (Novolin R) 0 unit SC ACHS [facility] PRN Reason: Protocol Last Admin: 05/11/17 17:40 Dose: 3 unit Ketorolac Tromethamine (Toradol) 15 mg IVP Q6 PRN PRN Reason: Pain, moderate (4-7) Lactobacillus Acidophilus (Bacid Acidophilus) 1 cap PO DAILY [facility] Last Admin: 05/11/17 09:13 Dose: 1 cap Loperamide HCl (Imodium) 2 mg PO QID PRN PRN Reason: Diarrhea Last Admin: 05/01/17 22:58 Dose: 2 mg Magnesium Oxide (Mag-Ox) 400 mg PO DAILY [facility] Last Admin: 05/11/17 09:13 Dose: 400 mg Metoclopramide HCl (Reglan) 10 mg IVP ACHS [facility] Last Admin: 05/11/17 21:26 Dose: 10 mg Multivitamins (Hexavitamin) 1 tab PO DAILY [facility] Last Admin: 05/11/17 09:13 Dose: 1 tab Petrolatum (Desitin Original) 0 gm TOP TID PRN PRN Reason: Rash Tramadol HCl (Ultram) 25 mg PO TID PRN PRN Reason: Pain, Mild (1-3) Zinc Sulfate (Zinc Sulfate 220 Mg Cap) 220 mg PO DAILY [facility] Last Admin: 05/11/17 09:13 Dose: 220 mg - Labs Labs: 05/11/17 06:54 05/11/17 06:54 PT 11.9 SECONDS (9.7-12.2) 04/13/17 06:28 INR 1.1 04/13/17 06:28 APTT 27 SECONDS (21-34) 04/13/17 06:28 - Constitutional Appears: Well - Head Exam Head Exam: ATRAUMATIC, NORMAL INSPECTION, NORMOCEPHALIC - Eye Exam Eye Exam: EOMI, Normal appearance, PERRL Pupil Exam: NORMAL ACCOMODATION, PERRL - ENT Exam ENT Exam: Mucous Membranes Moist, Normal Exam - Neck Exam Neck Exam: Full ROM, Normal Inspection. absent: Lymphadenopathy - Respiratory Exam Respiratory Exam: Clear to Ausculation Bilateral, NORMAL BREATHING PATTERN - Cardiovascular Exam Cardiovascular Exam: REGULAR RHYTHM, +S1, +S2. absent: Murmur - GI/Abdominal Exam GI & Abdominal Exam: Soft, Normal Bowel Sounds. absent: Tenderness - Rectal Exam Rectal Exam: Deferred - Back Exam Back Exam: NORMAL INSPECTION - Neurological Exam Neurological Exam: Alert, Awake, CN II-XII Intact, Normal Gait, Oriented x3 - Psychiatric Exam Psychiatric exam: Normal Affect, Normal Mood - Skin Skin Exam: Dry, Intact, Normal Color, Warm Assessment and Plan (1) Colonic fistula Status: Acute (2) Displacement of Mckeon catheter Status: Acute - Assessment and Plan (Free Text) Plan: Patient examined. Diffuse abdominal pain present. Continue broad-spectrum antibiotic. Continue insulin, other antidiabetic medications, antihypertensive medications and supportive care.
[2017-05-12] MEDS: Meropenem 500 MG in Dextrose 5% In Water 100 ML IVPB SCH ×3 (00:22→16:09)
[2017-05-12] MEDS: Acetaminophen-Codeine 300/30 mg Tab PO SCH ×4 (00:23→18:01)
[2017-05-12] MEDS ORDERED: TPN IV ONE (06:00)
[2017-05-12] MEDS: (Novolin R) Insulin Human Regular 100 units/ml vial SC SCH ×4 (06:44→23:29)
[2017-05-12] MEDS: Linezolid 600 mg in D5W 300 ml 600 MG/300 ML BAG IVPB SCH ×2 (09:38→22:22)
[2017-05-12] MEDS: Fluconazole IV 200mg/100 ml NS 100 ML IVPB SCH (09:38)
[2017-05-12] MEDS: Magnesium Oxide 400 mg Tab UD PO SCH (09:39)
[2017-05-12] MEDS: Multiple Vitamins Tab PO SCH (09:40)
[2017-05-12] MEDS: Lactobacillus Acidophilus 500 MU Cap PO SCH (09:43)
--- NOTE | 2017-05-12 14:44 | CP.PCM.PN ---
Addendum entered and electronically signed by Vikki Sims DO 05/12/17 18:00 : Discussed plan with Dr. Fernandez. Will obtain Renal US to see if left hydronephrosis has developed for possible left nephrostomy tube reinsertion. Will discuss with IR about doing right nephrostogram and possible exchange of right nephrostomy tube. Also will need cystogram. Original Note: <EduardokikoaleksandrElbert - Last Filed: 05/12/17 14:45> Subjective - Date & Time of Evaluation Date of Evaluation: 05/12/17 Time of Evaluation: 14:41 - Subjective Subjective: Surgery: Dr. Cabral Pt seen and examined. Ostomy was leaking overnight. Wafer was removed and reapplied by wound care nurse. Pt is resting comfortably in bed. Objective - Vital Signs/Intake and Output Vital Signs (last 24 hours): Temp Pulse Resp BP Pulse Ox 98.0 F 107 H 20 96/60 L 100 05/12/17 08:52 05/12/17 08:52 05/12/17 08:52 05/12/17 08:52 05/12/17 08:52 Intake and Output: 05/12/17 05/12/17 06:59 18:59 Intake Total 1828 Output Total 1350 Balance 478 - Medications Medications: Current Medications Acetaminophen/Codeine Phosphate (Tylenol/Codeine 300 Mg/30 Mg) 1 ea PO Q6 [facility] Last Admin: 05/12/17 12:19 Dose: Not Given Ascorbic Acid (Vitamin C 500 Mg Tab) 500 mg PO DAILY [facility] Last Admin: 05/12/17 09:40 Dose: 500 mg Enoxaparin Sodium (Lovenox) 40 mg SC Q12 [facility] Last Admin: 05/07/17 21:41 Dose: 40 mg Fluconazole (Diflucan Iv 200 Mg/100 Ml Ns) 100 mls @ 100 mls/hr IVPB DAILY [facility] Last Admin: 05/12/17 09:38 Dose: 100 mls/hr Meropenem 500 mg/ Dextrose 100 mls @ 100 mls/hr IVPB Q8H [facility] Last Admin: 05/12/17 08:23 Dose: 100 mls/hr Linezolid (Zyvox 600mg/300ml D5w) 600 mg in 300 mls @ 200 mls/hr IVPB Q12 [facility] Last Admin: 05/12/17 09:38 Dose: 200 mls/hr Chromium/Copper/Manganese/Zinc 1 ml/ Heparin Sodium (Porcine ) 1,000 units/ Sodium Chloride 35 meq/ Magnesium Sulfate 6 meq/ Amino Acids 1,012.2278 mls @ 83 mls/hr IV .[id number] Stop: 05/12/17 18:11 Last Admin: 05/12/17 08:04 Dose: 83 mls/hr Multivitamins/Vitamin C 10 ml/Chromium/Copper/Manganese/Zinc 1 ml/ Amino Acids 1,011 mls @ 83 mls/hr IV .[id number] [facility] Stop: 05/13/17 05:59 Chromium/Copper/Manganese/Zinc (1 ml/ Amino Acids) 1,001 mls @ 83 mls/hr IV .Q12H4M [facility] Stop: 05/13/17 18:00 Insulin Human Regular (Novolin R) 0 unit SC [facility] PRN Reason: Protocol Last Admin: 05/12/17 12:38 Dose: 6 unit Ketorolac Tromethamine (Toradol) 15 mg IVP Q6 PRN PRN Reason: Pain, moderate (4-7) Lactobacillus Acidophilus (Bacid Acidophilus) 1 cap PO DAILY [facility] Last Admin: 05/12/17 09:43 Dose: 1 cap Loperamide HCl (Imodium) 2 mg PO QID PRN PRN Reason: Diarrhea Last Admin: 05/01/17 22:58 Dose: 2 mg Magnesium Oxide (Mag-Ox) 400 mg PO DAILY [facility] Last Admin: 05/12/17 09:39 Dose: 400 mg Metoclopramide HCl (Reglan) 10 mg IVP ACHS [facility] Last Admin: 05/12/17 12:39 Dose: 10 mg Multivitamins (Hexavitamin) 1 tab PO DAILY [facility] Last Admin: 05/12/17 09:40 Dose: 1 tab Petrolatum (Desitin Original) 0 gm TOP TID PRN PRN Reason: Rash Tramadol HCl (Ultram) 25 mg PO TID PRN PRN Reason: Pain, Mild (1-3) Zinc Sulfate (Zinc Sulfate 220 Mg Cap) 220 mg PO DAILY [facility] Last Admin: 05/12/17 09:40 Dose: 220 mg - Labs Labs: 05/11/17 06:54 05/11/17 06:54 PT 11.9 SECONDS (9.7-12.2) 04/13/17 06:28 INR 1.1 04/13/17 06:28 APTT 27 SECONDS (21-34) 04/13/17 06:28 - Constitutional Appears: Non-toxic, No Acute Distress, Cachectic, Chronically Ill - Head Exam Head Exam: ATRAUMATIC, NORMOCEPHALIC - Eye Exam Eye Exam: EOMI - ENT Exam ENT Exam: Mucous Membranes Moist - Neck Exam Neck Exam: Full ROM - Respiratory Exam Respiratory Exam: NORMAL BREATHING PATTERN. absent: Accessory Muscle Use, Respiratory Distress - Cardiovascular Exam Cardiovascular Exam: Tachycardia - GI/Abdominal Exam GI & Abdominal Exam: Soft. absent: Distended, Firm, Guarding, Rigid, Tenderness , Rebound Additional comments: midline incision w. wound vac in place Stoma pink and patent, loose stool in bag, excoriations noted on skin around stoma - Extremities Exam Extremities Exam: absent: Calf Tenderness, Pedal Edema - Neurological Exam Neurological Exam: Alert, Awake Assessment and Plan - Assessment and Plan (Free Text) Assessment: 61F POD#30 s/p ex-lap, small bowel resection, bladder repair, appendectomy, and ileostomy -monitor ostomy, reinforce PRN -persistently high glucose despite increasing ISS, likely 2/2 TPN, will switch pt over to PPN -continue w. pain management -encourage PO intake -will tentatively plan for changing wound vac on Monday -d/w attending Zemaitis PGY3 <Sumeet Cabral - Last Filed: 05/14/17 16:37> Objective - Vital Signs/Intake and Output Vital Signs (last 24 hours): Temp Pulse Resp BP Pulse Ox 98.2 F 108 H 18 118/68 100 05/14/17 09:20 05/14/17 09:20 05/14/17 09:20 05/14/17 09:20 05/14/17 09:20 Intake and Output: 05/14/17 05/14/17 06:59 18:59 Intake Total 250 Output Total 800 Balance -550 - Medications Medications: Current Medications Acetaminophen/Codeine Phosphate (Tylenol/Codeine 300 Mg/30 Mg) 1 ea PO Q6 [facility] Last Admin: 05/14/17 12:44 Dose: Not Given Ascorbic Acid (Vitamin C 500 Mg Tab) 500 mg PO DAILY [facility] Last Admin: 05/14/17 10:23 Dose: 500 mg Enoxaparin Sodium (Lovenox) 40 mg SC Q12 [facility] Last Admin: 05/07/17 21:41 Dose: 40 mg Fluconazole (Diflucan Iv 200 Mg/100 Ml Ns) 100 mls @ 100 mls/hr IVPB DAILY [facility] Last Admin: 05/14/17 10:18 Dose: 100 mls/hr Multivitamins/Vitamin C 10 ml/Chromium/Copper/Manganese/Zinc 1 ml/ Amino Acids 1,011 mls @ 42 mls/hr IV .Q24H [facility] Last Admin: 05/13/17 17:39 Dose: 42 mls/hr Tigecycline 50 mg/ Dextrose 100 mls @ 100 mls/hr IVPB Q12H [facility] Insulin Human Regular (Novolin R) 0 unit SC ACHS [facility] PRN Reason: Protocol Last Admin: 05/14/17 12:40 Dose: Not Given Lactobacillus Acidophilus (Bacid Acidophilus) 1 cap PO DAILY [facility] Last Admin: 05/14/17 10:18 Dose: 1 cap Loperamide HCl (Imodium) 2 mg PO QID PRN PRN Reason: Diarrhea Last Admin: 05/01/17 22:58 Dose: 2 mg Magnesium Oxide (Mag-Ox) 400 mg PO DAILY [facility] Last Admin: 05/14/17 10:22 Dose: 400 mg Metoclopramide HCl (Reglan) 10 mg IVP ACHS [facility] Last Admin: 05/14/17 12:41 Dose: Not Given Multivitamins (Hexavitamin) 1 tab PO DAILY [facility] Last Admin: 05/14/17 10:22 Dose: 1 tab Petrolatum (Desitin Original) 0 gm TOP TID PRN PRN Reason: Rash Tramadol HCl (Ultram) 25 mg PO TID PRN PRN Reason: Pain, Mild (1-3) Zinc Sulfate (Zinc Sulfate 220 Mg Cap) 220 mg PO DAILY [facility] Last Admin: 05/14/17 10:23 Dose: 220 mg - Labs Labs: 05/11/17 06:54 05/11/17 06:54 PT 11.9 SECONDS (9.7-12.2) 04/13/17 06:28 INR 1.1 04/13/17 06:28 APTT 27 SECONDS (21-34) 04/13/17 06:28 Attending/Attestation - Attestation I have personally seen and examined this patient.: Yes I have fully participated in the care of the patient.: Yes I have reviewed all pertinent clinical information, including history, physical exam and plan: Yes Notes (Text): Pt was seen and examined at bedside Agree with above note and assessment Ileostomy care Cmyles current mx
--- NOTE | 2017-05-12 14:53 | CP.PCM.PN ---
Subjective - Date & Time of Evaluation Date of Evaluation: 05/12/17 Time of Evaluation: 09:00 - Subjective Subjective: events noted afebrile wound care in progress Objective - Vital Signs/Intake and Output Vital Signs (last 24 hours): Temp Pulse Resp BP Pulse Ox 98.0 F 107 H 20 96/60 L 100 05/12/17 08:52 05/12/17 08:52 05/12/17 08:52 05/12/17 08:52 05/12/17 08:52 Intake and Output: 05/12/17 05/12/17 06:59 18:59 Intake Total 1828 Output Total 1350 Balance 478 - Medications Medications: Current Medications Acetaminophen/Codeine Phosphate (Tylenol/Codeine 300 Mg/30 Mg) 1 ea PO Q6 [facility] Last Admin: 05/12/17 12:19 Dose: Not Given Ascorbic Acid (Vitamin C 500 Mg Tab) 500 mg PO DAILY [facility] Last Admin: 05/12/17 09:40 Dose: 500 mg Enoxaparin Sodium (Lovenox) 40 mg SC Q12 [facility] Last Admin: 05/07/17 21:41 Dose: 40 mg Fluconazole (Diflucan Iv 200 Mg/100 Ml Ns) 100 mls @ 100 mls/hr IVPB DAILY [facility] Last Admin: 05/12/17 09:38 Dose: 100 mls/hr Meropenem 500 mg/ Dextrose 100 mls @ 100 mls/hr IVPB Q8H [facility] Last Admin: 05/12/17 08:23 Dose: 100 mls/hr Linezolid (Zyvox 600mg/300ml D5w) 600 mg in 300 mls @ 200 mls/hr IVPB Q12 [facility] Last Admin: 05/12/17 09:38 Dose: 200 mls/hr Chromium/Copper/Manganese/Zinc 1 ml/ Heparin Sodium (Porcine ) 1,000 units/ Sodium Chloride 35 meq/ Magnesium Sulfate 6 meq/ Amino Acids 1,012.2278 mls @ 83 mls/hr IV .[id number] Stop: 05/12/17 18:11 Last Admin: 05/12/17 08:04 Dose: 83 mls/hr Multivitamins/Vitamin C 10 ml/Chromium/Copper/Manganese/Zinc 1 ml/ Amino Acids 1,011 mls @ 83 mls/hr IV .[id number] [facility] Stop: 05/13/17 05:59 Chromium/Copper/Manganese/Zinc (1 ml/ Amino Acids) 1,001 mls @ 83 mls/hr IV .Q12H4M [facility] Stop: 05/13/17 18:00 Insulin Human Regular (Novolin R) 0 unit SC ACHS [facility] PRN Reason: Protocol Last Admin: 05/12/17 12:38 Dose: 6 unit Ketorolac Tromethamine (Toradol) 15 mg IVP Q6 PRN PRN Reason: Pain, moderate (4-7) Lactobacillus Acidophilus (Bacid Acidophilus) 1 cap PO DAILY [facility] Last Admin: 05/12/17 09:43 Dose: 1 cap Loperamide HCl (Imodium) 2 mg PO QID PRN PRN Reason: Diarrhea Last Admin: 05/01/17 22:58 Dose: 2 mg Magnesium Oxide (Mag-Ox) 400 mg PO DAILY [facility] Last Admin: 05/12/17 09:39 Dose: 400 mg Metoclopramide HCl (Reglan) 10 mg IVP [facility] Last Admin: 05/12/17 12:39 Dose: 10 mg Multivitamins (Hexavitamin) 1 tab PO DAILY [facility] Last Admin: 05/12/17 09:40 Dose: 1 tab Petrolatum (Desitin Original) 0 gm TOP TID PRN PRN Reason: Rash Tramadol HCl (Ultram) 25 mg PO TID PRN PRN Reason: Pain, Mild (1-3) Zinc Sulfate (Zinc Sulfate 220 Mg Cap) 220 mg PO DAILY [facility] Last Admin: 05/12/17 09:40 Dose: 220 mg - Labs Labs: 05/11/17 06:54 05/11/17 06:54 PT 11.9 SECONDS (9.7-12.2) 04/13/17 06:28 INR 1.1 04/13/17 06:28 APTT 27 SECONDS (21-34) 04/13/17 06:28 - Constitutional Appears: Non-toxic, Cachectic, Chronically Ill - Head Exam Head Exam: NORMOCEPHALIC - Eye Exam Eye Exam: absent: Scleral icterus - ENT Exam ENT Exam: Mucous Membranes Dry - Neck Exam Neck Exam: absent: Lymphadenopathy - Respiratory Exam Respiratory Exam: Decreased Breath Sounds, Clear to Ausculation Bilateral - Cardiovascular Exam Cardiovascular Exam: REGULAR RHYTHM - GI/Abdominal Exam GI & Abdominal Exam: Soft Additional comments: midline incision w. wound vac in place Stoma pink and patent, loose stool in bag, excoriations noted on skin around stoma - Exam Exam: NORMAL INSPECTION - Extremities Exam Extremities Exam: absent: Pedal Edema - Back Exam Back Exam: absent: CVA tenderness (L), CVA tenderness (R) - Neurological Exam Neurological Exam: Alert, Awake Assessment and Plan (1) Colonic fistula Status: Acute (2) Displacement of Mckeon catheter Status: Acute - Assessment and Plan (Free Text) Plan: iv rx renewed
[2017-05-12] MEDS ORDERED: PPN IV SCH (18:00)
--- NOTE | 2017-05-12 19:32 | CP.PCM.PN ---
Subjective - Date & Time of Evaluation Date of Evaluation: 05/12/17 Time of Evaluation: 10:20 - Subjective Subjective: clinically same Objective - Vital Signs/Intake and Output Vital Signs (last 24 hours): Temp Pulse Resp BP Pulse Ox 98.3 F 119 H 20 101/71 100 05/12/17 15:09 05/12/17 15:09 05/12/17 15:09 05/12/17 15:09 05/12/17 15:09 Intake and Output: 05/12/17 05/13/17 18:59 06:59 Intake Total 1464 Output Total 1700 Balance -236 - Medications Medications: Current Medications Acetaminophen/Codeine Phosphate (Tylenol/Codeine 300 Mg/30 Mg) 1 ea PO Q6 [facility] Last Admin: 05/12/17 18:01 Dose: Not Given Ascorbic Acid (Vitamin C 500 Mg Tab) 500 mg PO DAILY [facility] Last Admin: 05/12/17 09:40 Dose: 500 mg Enoxaparin Sodium (Lovenox) 40 mg SC Q12 [facility] Last Admin: 05/07/17 21:41 Dose: 40 mg Fluconazole (Diflucan Iv 200 Mg/100 Ml Ns) 100 mls @ 100 mls/hr IVPB DAILY [facility] Last Admin: 05/12/17 09:38 Dose: 100 mls/hr Meropenem 500 mg/ Dextrose 100 mls @ 100 mls/hr IVPB Q8H [facility] Last Admin: 05/12/17 16:09 Dose: 100 mls/hr Linezolid (Zyvox 600mg/300ml D5w) 600 mg in 300 mls @ 200 mls/hr IVPB Q12 [facility] Last Admin: 05/12/17 09:38 Dose: 200 mls/hr Multivitamins/Vitamin C 10 ml/Chromium/Copper/Manganese/Zinc 1 ml/ Amino Acids 1,011 mls @ 42 mls/hr IV .Q24H [facility] Stop: 05/13/17 17:59 Last Admin: 05/12/17 18:21 Dose: 42 mls/hr Insulin Human Regular (Novolin R) 0 unit SC ACHS [facility] PRN Reason: Protocol Last Admin: 05/12/17 18:01 Dose: 4 unit Ketorolac Tromethamine (Toradol) 15 mg IVP Q6 PRN PRN Reason: Pain, moderate (4-7) Lactobacillus Acidophilus (Bacid Acidophilus) 1 cap PO DAILY [facility] Last Admin: 05/12/17 09:43 Dose: 1 cap Loperamide HCl (Imodium) 2 mg PO QID PRN PRN Reason: Diarrhea Last Admin: 05/01/17 22:58 Dose: 2 mg Magnesium Oxide (Mag-Ox) 400 mg PO DAILY [facility] Last Admin: 05/12/17 09:39 Dose: 400 mg Metoclopramide HCl (Reglan) 10 mg IVP ACHS [facility] Last Admin: 05/12/17 16:10 Dose: 10 mg Multivitamins (Hexavitamin) 1 tab PO DAILY [facility] Last Admin: 05/12/17 09:40 Dose: 1 tab Petrolatum (Desitin Original) 0 gm TOP TID PRN PRN Reason: Rash Tramadol HCl (Ultram) 25 mg PO TID PRN PRN Reason: Pain, Mild (1-3) Zinc Sulfate (Zinc Sulfate 220 Mg Cap) 220 mg PO DAILY [facility] Last Admin: 05/12/17 09:40 Dose: 220 mg - Labs Labs: 05/11/17 06:54 05/11/17 06:54 PT 11.9 SECONDS (9.7-12.2) 04/13/17 06:28 INR 1.1 04/13/17 06:28 APTT 27 SECONDS (21-34) 04/13/17 06:28 - Constitutional Appears: Well - Head Exam Head Exam: ATRAUMATIC, NORMAL INSPECTION, NORMOCEPHALIC - Eye Exam Eye Exam: EOMI, Normal appearance, PERRL Pupil Exam: NORMAL ACCOMODATION, PERRL - ENT Exam ENT Exam: Mucous Membranes Moist, Normal Exam - Neck Exam Neck Exam: Full ROM, Normal Inspection. absent: Lymphadenopathy - Respiratory Exam Respiratory Exam: Clear to Ausculation Bilateral, NORMAL BREATHING PATTERN - Cardiovascular Exam Cardiovascular Exam: REGULAR RHYTHM, +S1, +S2. absent: Murmur - GI/Abdominal Exam GI & Abdominal Exam: Soft, Normal Bowel Sounds. absent: Tenderness - Rectal Exam Rectal Exam: Deferred - Back Exam Back Exam: NORMAL INSPECTION - Neurological Exam Neurological Exam: Alert, Awake, CN II-XII Intact, Normal Gait, Oriented x3 - Psychiatric Exam Psychiatric exam: Normal Affect, Normal Mood - Skin Skin Exam: Dry, Intact, Normal Color, Warm Assessment and Plan (1) Colonic fistula Status: Acute (2) Displacement of Mckeon catheter Status: Acute - Assessment and Plan (Free Text) Plan: Plan renal ultrasound. Patient examined. Diffuse abdominal pain present. Continue broad-spectrum antibiotic. Continue insulin, other antidiabetic medications, antihypertensive medications and supportive care.
--- NOTE | 2017-05-12 20:01 | US ---
EXAM: US Retroperitoneal Complete, Renal EXAM DATE/TIME: 05/12/2017 6:02 PM CLINICAL HISTORY: 61 years old, female; Condition or disease; Other: Lt nephrostomy tube fell out; Additional info: R nephrostomy tube, l nephrostomy tube fell out TECHNIQUE: Real-time ultrasound of the retroperitoneum (complete) with image documentation. COMPARISON: CT abdomen pelvis 04/24/70 FINDINGS: Aorta: Visualized portion of the aorta is normal in caliber. Right kidney: Right kidney measures approximately 10.4 x 3.8 x 3.7 cm. There is cortical scarring.There is no pelvocaliectasis.Corticomedullary differentiation is not visualized. There is shadowing from the nephrostomy tube. Tube is incompletely imaged. Left kidney: Left kidney measures approximately 7.8 x 3.7 by 3.5 cm. There is focal scarring. There is been slight increase in caliectasis greatest in the upper pole. There is proximal ureterectasis. Proximal ureter measures 7.3 mm in diameter. Bladder: Bladder is almost completely empty. IMPRESSION: Slight interval increase in left caliectasis, persistent mild proximal left ureterectasis; no acute change in the right kidney, no pelvocaliectasis with nephrostomy tube in place; empty bladder
[2017-05-13] MEDS: Meropenem 500 MG in Dextrose 5% In Water 100 ML IVPB SCH ×3 (00:50→16:20)
[2017-05-13] MEDS: Acetaminophen-Codeine 300/30 mg Tab PO SCH ×5 (00:51→17:38)
[2017-05-13] MEDS ORDERED: PPN#2 IV SCH (06:00)
[2017-05-13] MEDS: (Novolin R) Insulin Human Regular 100 units/ml vial SC SCH ×4 (08:05→22:17)
--- NOTE | 2017-05-13 10:01 | CP.PCM.PN ---
<DeoZari - Last Filed: 05/13/17 09:58> Subjective - Date & Time of Evaluation Date of Evaluation: 05/13/17 Time of Evaluation: 07:15 - Subjective Subjective: General Surgery Dr. Cabral Pt S&[facility] @[facility]side[facility], minor leaking for ostomy was reinforced. no F/C, N/V. pt tolerating diet. Objective - Vital Signs/Intake and Output Vital Signs (last 24 hours): Temp Pulse Resp BP Pulse Ox 98 F 118 H 18 107/65 100 05/13/17 08:53 05/13/17 08:53 05/13/17 08:53 05/13/17 08:53 05/13/17 08:53 Intake and Output: 05/13/17 05/13/17 06:59 18:59 Intake Total 712 Output Total 2115 Balance -1403 - Medications Medications: Current Medications Acetaminophen/Codeine Phosphate (Tylenol/Codeine 300 Mg/30 Mg) 1 ea PO Q6 [facility] Last Admin: 05/13/17 06:24 Dose: Not Given Ascorbic Acid (Vitamin C 500 Mg Tab) 500 mg PO DAILY [facility] Last Admin: 05/12/17 09:40 Dose: 500 mg Enoxaparin Sodium (Lovenox) 40 mg SC Q12 [facility] Last Admin: 05/07/17 21:41 Dose: 40 mg Fluconazole (Diflucan Iv 200 Mg/100 Ml Ns) 100 mls @ 100 mls/hr IVPB DAILY [facility] Last Admin: 05/12/17 09:38 Dose: 100 mls/hr Meropenem 500 mg/ Dextrose 100 mls @ 100 mls/hr IVPB Q8H [facility] Last Admin: 05/13/17 08:06 Dose: 100 mls/hr Linezolid (Zyvox 600mg/300ml D5w) 600 mg in 300 mls @ 200 mls/hr IVPB Q12 [facility] Last Admin: 05/12/17 22:22 Dose: 200 mls/hr Multivitamins/Vitamin C 10 ml/Chromium/Copper/Manganese/Zinc 1 ml/ Amino Acids 1,011 mls @ 42 mls/hr IV .Q24H [facility] Stop: 05/13/17 17:59 Last Admin: 05/12/17 18:21 Dose: 42 mls/hr Insulin Human Regular (Novolin R) 0 unit SC [facility] PRN Reason: Protocol Last Admin: 05/13/17 08:05 Dose: 6 unit Ketorolac Tromethamine (Toradol) 15 mg IVP Q6 PRN PRN Reason: Pain, moderate (4-7) Lactobacillus Acidophilus (Bacid Acidophilus) 1 cap PO DAILY [facility] Last Admin: 05/12/17 09:43 Dose: 1 cap Loperamide HCl (Imodium) 2 mg PO QID PRN PRN Reason: Diarrhea Last Admin: 05/01/17 22:58 Dose: 2 mg Magnesium Oxide (Mag-Ox) 400 mg PO DAILY [facility] Last Admin: 05/12/17 09:39 Dose: 400 mg Metoclopramide HCl (Reglan) 10 mg IVP [facility] Last Admin: 05/13/17 08:05 Dose: 10 mg Multivitamins (Hexavitamin) 1 tab PO DAILY [facility] Last Admin: 05/12/17 09:40 Dose: 1 tab Petrolatum (Desitin Original) 0 gm TOP TID PRN PRN Reason: Rash Tramadol HCl (Ultram) 25 mg PO TID PRN PRN Reason: Pain, Mild (1-3) Zinc Sulfate (Zinc Sulfate 220 Mg Cap) 220 mg PO DAILY [facility] Last Admin: 05/12/17 09:40 Dose: 220 mg - Labs Labs: 05/11/17 06:54 05/11/17 06:54 PT 11.9 SECONDS (9.7-12.2) 04/13/17 06:28 INR 1.1 04/13/17 06:28 APTT 27 SECONDS (21-34) 04/13/17 06:28 - Constitutional Appears: Non-toxic, No Acute Distress, Cachectic, Chronically Ill - Head Exam Head Exam: NORMAL INSPECTION - Eye Exam Pupil Exam: NORMAL ACCOMODATION - ENT Exam ENT Exam: Mucous Membranes Moist - Respiratory Exam Respiratory Exam: NORMAL BREATHING PATTERN. absent: Accessory Muscle Use, Respiratory Distress - Cardiovascular Exam Cardiovascular Exam: absent: Bradycardia, Tachycardia - GI/Abdominal Exam GI & Abdominal Exam: Soft, Tenderness (minimal diffuse TTP). absent: Distended , Firm, Guarding, Rigid, Rebound Additional comments: wound vac in place, seal check negative for leak ostomy in place, stool present in bag no ostomy leak appreciated - Exam Additional comments: gonzalez in palce - Extremities Exam Extremities Exam: Normal Inspection - Back Exam Additional comments: R nephrosotomy tube in place clear yellow urine present - Neurological Exam Neurological Exam: Alert, Awake, Oriented x3 - Psychiatric Exam Psychiatric exam: Normal Affect, Normal Mood - Skin Skin Exam: Dry, Normal Color, Warm Assessment and Plan - Assessment and Plan (Free Text) Assessment: 61 y/o F POD#31 s/p ex-lap, small bowel resection, bladder repair, appendectomy , and ileostomy - cont monitor ostomy, reinforce PRN - cont PPN - cont pain management - repeat Kidney US: slight interval increase in L superior pole dilation w/ persistent mild proximal L ureteral dilation; R kidney w/ mild scaring, no hydronephrosis - pt will need replacement of R nephrostomy tube and cystogram in near future - tentatively plan for wound vac change on Monday Pt discussed w/ Dr. Misha Desouza DO PGY2 <Sumeet Cabral - Last Filed: 05/14/17 16:40> Objective - Vital Signs/Intake and Output Vital Signs (last 24 hours): Temp Pulse Resp BP Pulse Ox 98.2 F 108 H 18 118/68 100 05/14/17 09:20 05/14/17 09:20 05/14/17 09:20 05/14/17 09:20 05/14/17 09:20 Intake and Output: 05/14/17 05/14/17 06:59 18:59 Intake Total 250 Output Total 800 Balance -550 - Medications Medications: Current Medications Acetaminophen/Codeine Phosphate (Tylenol/Codeine 300 Mg/30 Mg) 1 ea PO Q6 [facility] Last Admin: 05/14/17 12:44 Dose: Not Given Ascorbic Acid (Vitamin C 500 Mg Tab) 500 mg PO DAILY [facility] Last Admin: 05/14/17 10:23 Dose: 500 mg Enoxaparin Sodium (Lovenox) 40 mg SC Q12 [facility] Last Admin: 05/07/17 21:41 Dose: 40 mg Fluconazole (Diflucan Iv 200 Mg/100 Ml Ns) 100 mls @ 100 mls/hr IVPB DAILY [facility] Last Admin: 05/14/17 10:18 Dose: 100 mls/hr Multivitamins/Vitamin C 10 ml/Chromium/Copper/Manganese/Zinc 1 ml/ Amino Acids 1,011 mls @ 42 mls/hr IV .Q24H [facility] Last Admin: 05/13/17 17:39 Dose: 42 mls/hr Tigecycline 50 mg/ Dextrose 100 mls @ 100 mls/hr IVPB Q12H [facility] Insulin Human Regular (Novolin R) 0 unit SC ACHS [facility] PRN Reason: Protocol Last Admin: 05/14/17 12:40 Dose: Not Given Lactobacillus Acidophilus (Bacid Acidophilus) 1 cap PO DAILY [facility] Last Admin: 05/14/17 10:18 Dose: 1 cap Loperamide HCl (Imodium) 2 mg PO QID PRN PRN Reason: Diarrhea Last Admin: 05/01/17 22:58 Dose: 2 mg Magnesium Oxide (Mag-Ox) 400 mg PO DAILY [facility] Last Admin: 05/14/17 10:22 Dose: 400 mg Metoclopramide HCl (Reglan) 10 mg IVP ACHS [facility] Last Admin: 05/14/17 12:41 Dose: Not Given Multivitamins (Hexavitamin) 1 tab PO DAILY [facility] Last Admin: 05/14/17 10:22 Dose: 1 tab Petrolatum (Desitin Original) 0 gm TOP TID PRN PRN Reason: Rash Tramadol HCl (Ultram) 25 mg PO TID PRN PRN Reason: Pain, Mild (1-3) Zinc Sulfate (Zinc Sulfate 220 Mg Cap) 220 mg PO DAILY [facility] Last Admin: 05/14/17 10:23 Dose: 220 mg - Labs Labs: 05/11/17 06:54 05/11/17 06:54 PT 11.9 SECONDS (9.7-12.2) 04/13/17 06:28 INR 1.1 04/13/17 06:28 APTT 27 SECONDS (21-34) 04/13/17 06:28 Attending/Attestation - Attestation I have personally seen and examined this patient.: Yes I have fully participated in the care of the patient.: Yes I have reviewed all pertinent clinical information, including history, physical exam and plan: Yes Notes (Text): Pt was seen and examined at bedside Agree with above note and assessment
[2017-05-13] MEDS: Fluconazole IV 200mg/100 ml NS 100 ML IVPB SCH (10:07)
[2017-05-13] MEDS: Linezolid 600 mg in D5W 300 ml 600 MG/300 ML BAG IVPB SCH ×2 (10:10→21:23)
[2017-05-13] MEDS: Lactobacillus Acidophilus 500 MU Cap PO SCH (11:10)
[2017-05-13] MEDS: Multiple Vitamins Tab PO SCH (11:10)
[2017-05-13] MEDS: Magnesium Oxide 400 mg Tab UD PO SCH (11:11)
[2017-05-13] MEDS ORDERED: PPN IV SCH (13:00)
[2017-05-13] MEDS ORDERED: PPN# 2 IV SCH (13:00)
--- NOTE | 2017-05-13 15:52 | CP.PCM.PN ---
Subjective - Date & Time of Evaluation Date of Evaluation: 05/13/17 Time of Evaluation: 21:30 - Subjective Subjective: clinically same. Objective - Vital Signs/Intake and Output Vital Signs (last 24 hours): Temp Pulse Resp BP Pulse Ox 98 F 118 H 18 107/65 100 05/13/17 08:53 05/13/17 08:53 05/13/17 08:53 05/13/17 08:53 05/13/17 08:53 Intake and Output: 05/13/17 05/13/17 06:59 18:59 Intake Total 712 300 Output Total 2115 550 Balance -1403 -250 - Medications Medications: Current Medications Acetaminophen/Codeine Phosphate (Tylenol/Codeine 300 Mg/30 Mg) 1 ea PO Q6 [facility] Last Admin: 05/13/17 14:58 Dose: Not Given Ascorbic Acid (Vitamin C 500 Mg Tab) 500 mg PO DAILY [facility] Last Admin: 05/13/17 11:11 Dose: Not Given Enoxaparin Sodium (Lovenox) 40 mg SC Q12 [facility] Last Admin: 05/07/17 21:41 Dose: 40 mg Fluconazole (Diflucan Iv 200 Mg/100 Ml Ns) 100 mls @ 100 mls/hr IVPB DAILY [facility] Last Admin: 05/13/17 10:07 Dose: 100 mls/hr Meropenem 500 mg/ Dextrose 100 mls @ 100 mls/hr IVPB Q8H [facility] Last Admin: 05/13/17 08:06 Dose: 100 mls/hr Linezolid (Zyvox 600mg/300ml D5w) 600 mg in 300 mls @ 200 mls/hr IVPB Q12 [facility] Last Admin: 05/13/17 10:10 Dose: 200 mls/hr Multivitamins/Vitamin C 10 ml/Chromium/Copper/Manganese/Zinc 1 ml/ Amino Acids 1,011 mls @ 42 mls/hr IV .Q24H [facility] Stop: 05/13/17 17:59 Last Admin: 05/12/17 18:21 Dose: 42 mls/hr Multivitamins/Vitamin C 10 ml/Chromium/Copper/Manganese/Zinc 1 ml/ Amino Acids 1,011 mls @ 42 mls/hr IV .Q24H [facility] Insulin Human Regular (Novolin R) 0 unit SC ACHS [facility] PRN Reason: Protocol Last Admin: 05/13/17 14:57 Dose: Not Given Lactobacillus Acidophilus (Bacid Acidophilus) 1 cap PO DAILY [facility] Last Admin: 05/13/17 11:10 Dose: Not Given Loperamide HCl (Imodium) 2 mg PO QID PRN PRN Reason: Diarrhea Last Admin: 05/01/17 22:58 Dose: 2 mg Magnesium Oxide (Mag-Ox) 400 mg PO DAILY [facility] Last Admin: 05/13/17 11:11 Dose: Not Given Metoclopramide HCl (Reglan) 10 mg IVP ACHS [facility] Last Admin: 05/13/17 14:58 Dose: Not Given Multivitamins (Hexavitamin) 1 tab PO DAILY [facility] Last Admin: 05/13/17 11:10 Dose: Not Given Petrolatum (Desitin Original) 0 gm TOP TID PRN PRN Reason: Rash Tramadol HCl (Ultram) 25 mg PO TID PRN PRN Reason: Pain, Mild (1-3) Zinc Sulfate (Zinc Sulfate 220 Mg Cap) 220 mg PO DAILY [facility] Last Admin: 05/13/17 11:11 Dose: Not Given - Labs Labs: 05/11/17 06:54 05/11/17 06:54 PT 11.9 SECONDS (9.7-12.2) 04/13/17 06:28 INR 1.1 04/13/17 06:28 APTT 27 SECONDS (21-34) 04/13/17 06:28 - Constitutional Appears: Well - Head Exam Head Exam: ATRAUMATIC, NORMAL INSPECTION, NORMOCEPHALIC - Eye Exam Eye Exam: EOMI, Normal appearance, PERRL Pupil Exam: NORMAL ACCOMODATION, PERRL - ENT Exam ENT Exam: Mucous Membranes Moist, Normal Exam - Neck Exam Neck Exam: Full ROM, Normal Inspection. absent: Lymphadenopathy - Respiratory Exam Respiratory Exam: Clear to Ausculation Bilateral, NORMAL BREATHING PATTERN - Cardiovascular Exam Cardiovascular Exam: REGULAR RHYTHM, +S1, +S2. absent: Murmur - GI/Abdominal Exam GI & Abdominal Exam: Soft, Normal Bowel Sounds. absent: Tenderness - Rectal Exam Rectal Exam: Deferred - Back Exam Back Exam: NORMAL INSPECTION - Neurological Exam Neurological Exam: Alert, Awake, CN II-XII Intact, Normal Gait, Oriented x3 - Psychiatric Exam Psychiatric exam: Normal Affect, Normal Mood - Skin Skin Exam: Dry, Intact, Normal Color, Warm Assessment and Plan (1) Colonic fistula Status: Acute (2) Displacement of Mckeon catheter Status: Acute - Assessment and Plan (Free Text) Plan: Patient examined. Diffuse abdominal pain present. Continue broad-spectrum antibiotic. Continue insulin, other antidiabetic medications, antihypertensive medications and supportive care.
[2017-05-13] MEDS: PPN# 2 IV SCH (17:39)
[2017-05-14] MEDS: Acetaminophen-Codeine 300/30 mg Tab PO SCH ×4 (00:10→17:35)
--- NOTE | 2017-05-14 07:21 | CP.PCM.PN ---
Subjective - Date & Time of Evaluation Date of Evaluation: 05/14/17 Time of Evaluation: 06:00 - Subjective Subjective: General Surgery Dr. Cabral Pt S&E @bedside. NAEO. ostomy leaking per nursing, causing skin irritation and pain. pt tolerating diet. Objective - Vital Signs/Intake and Output Vital Signs (last 24 hours): Temp Pulse Resp BP Pulse Ox 98.2 F 115 H 20 96/55 L 98 05/14/17 04:15 05/14/17 04:15 05/14/17 04:15 05/14/17 04:15 05/14/17 04:15 Intake and Output: 05/14/17 05/14/17 06:59 18:59 Intake Total Output Total Balance - Medications Medications: Current Medications Acetaminophen/Codeine Phosphate (Tylenol/Codeine 300 Mg/30 Mg) 1 ea PO Q6 [facility] Last Admin: 05/14/17 05:48 Dose: 1 ea Ascorbic Acid (Vitamin C 500 Mg Tab) 500 mg PO DAILY [facility] Last Admin: 05/13/17 11:11 Dose: Not Given Enoxaparin Sodium (Lovenox) 40 mg SC Q12 [facility] Last Admin: 05/07/17 21:41 Dose: 40 mg Fluconazole (Diflucan Iv 200 Mg/100 Ml Ns) 100 mls @ 100 mls/hr IVPB DAILY [facility] Last Admin: 05/13/17 10:07 Dose: 100 mls/hr Linezolid (Zyvox 600mg/300ml D5w) 600 mg in 300 mls @ 200 mls/hr IVPB Q12 [facility] Last Admin: 05/13/17 21:23 Dose: 200 mls/hr Multivitamins/Vitamin C 10 ml/Chromium/Copper/Manganese/Zinc 1 ml/ Amino Acids 1,011 mls @ 42 mls/hr IV .Q24H [facility] Last Admin: 05/13/17 17:39 Dose: 42 mls/hr Insulin Human Regular (Novolin R) 0 unit SC ACHS [facility] PRN Reason: Protocol Last Admin: 05/13/17 22:17 Dose: Not Given Lactobacillus Acidophilus (Bacid Acidophilus) 1 cap PO DAILY [facility] Last Admin: 05/13/17 11:10 Dose: Not Given Loperamide HCl (Imodium) 2 mg PO QID PRN PRN Reason: Diarrhea Last Admin: 05/01/17 22:58 Dose: 2 mg Magnesium Oxide (Mag-Ox) 400 mg PO DAILY [facility] Last Admin: 05/13/17 11:11 Dose: Not Given Metoclopramide HCl (Reglan) 10 mg IVP ACHS [facility] Last Admin: 05/13/17 21:23 Dose: 10 mg Multivitamins (Hexavitamin) 1 tab PO DAILY [facility] Last Admin: 05/13/17 11:10 Dose: Not Given Petrolatum (Desitin Original) 0 gm TOP TID PRN PRN Reason: Rash Tramadol HCl (Ultram) 25 mg PO TID PRN PRN Reason: Pain, Mild (1-3) Zinc Sulfate (Zinc Sulfate 220 Mg Cap) 220 mg PO DAILY [facility] Last Admin: 05/13/17 11:11 Dose: Not Given - Labs Labs: 05/11/17 06:54 05/11/17 06:54 PT 11.9 SECONDS (9.7-12.2) 04/13/17 06:28 INR 1.1 04/13/17 06:28 APTT 27 SECONDS (21-34) 04/13/17 06:28 - Constitutional Appears: Non-toxic, No Acute Distress, Cachectic - Head Exam Head Exam: NORMAL INSPECTION - Eye Exam Eye Exam: Normal appearance - ENT Exam ENT Exam: Mucous Membranes Moist - Respiratory Exam Respiratory Exam: NORMAL BREATHING PATTERN. absent: Accessory Muscle Use, Respiratory Distress - Cardiovascular Exam Cardiovascular Exam: absent: Bradycardia, Tachycardia - GI/Abdominal Exam GI & Abdominal Exam: Soft, Tenderness (per-incisional TTP). absent: Distended, Guarding, Rebound Additional comments: ostomy in place wound vac in place w/ good seal. - Extremities Exam Extremities Exam: Normal Inspection - Back Exam Additional comments: R nephrostomy tube - Neurological Exam Neurological Exam: Alert, Awake, Oriented x3 - Psychiatric Exam Psychiatric exam: Normal Affect, Normal Mood - Skin Skin Exam: Dry, Normal Color, Warm Assessment and Plan - Assessment and Plan (Free Text) Assessment: 61 y/o F POD#32 s/p ex-lap, small bowel resection, bladder repair, appendectomy , and ileostomy - cont ostomy care, reinforce PRN - cont PPN - cont pain management - tentatively plan for wound vac change on Monday Pt discussed w/ Dr. Misha Desouza DO PGY2
[2017-05-14] MEDS: (Novolin R) Insulin Human Regular 100 units/ml vial SC SCH ×4 (08:12→22:37)
[2017-05-14] MEDS: Fluconazole IV 200mg/100 ml NS 100 ML IVPB SCH (10:18)
[2017-05-14] MEDS: Lactobacillus Acidophilus 500 MU Cap PO SCH (10:18)
[2017-05-14] MEDS: Multiple Vitamins Tab PO SCH (10:22)
[2017-05-14] MEDS: Magnesium Oxide 400 mg Tab UD PO SCH (10:22)
[2017-05-14] MEDS: Linezolid 600 mg in D5W 300 ml 600 MG/300 ML BAG IVPB SCH (10:23)
--- NOTE | 2017-05-14 12:31 | CP.PCM.PN ---
Subjective - Date & Time of Evaluation Date of Evaluation: 05/14/17 Time of Evaluation: 05:00 - Subjective Subjective: 61 y/o F POD#32 s/p ex-lap, small bowel resection, bladder repair, appendectomy , and ileostomy some leakage still around ostomy no fever ciultures noted - unclear if these are colonizing or infecting organisms Objective - Vital Signs/Intake and Output Vital Signs (last 24 hours): Temp Pulse Resp BP Pulse Ox 98.2 F 108 H 18 118/68 100 05/14/17 09:20 05/14/17 09:20 05/14/17 09:20 05/14/17 09:20 05/14/17 09:20 Intake and Output: 05/14/17 05/14/17 06:59 18:59 Intake Total Output Total Balance - Medications Medications: Current Medications Acetaminophen/Codeine Phosphate (Tylenol/Codeine 300 Mg/30 Mg) 1 ea PO Q6 [facility] Last Admin: 05/14/17 05:48 Dose: 1 ea Ascorbic Acid (Vitamin C 500 Mg Tab) 500 mg PO DAILY [facility] Last Admin: 05/14/17 10:23 Dose: 500 mg Enoxaparin Sodium (Lovenox) 40 mg SC Q12 [facility] Last Admin: 05/07/17 21:41 Dose: 40 mg Fluconazole (Diflucan Iv 200 Mg/100 Ml Ns) 100 mls @ 100 mls/hr IVPB DAILY [facility] Last Admin: 05/14/17 10:18 Dose: 100 mls/hr Linezolid (Zyvox 600mg/300ml D5w) 600 mg in 300 mls @ 200 mls/hr IVPB Q12 [facility] Last Admin: 05/14/17 10:23 Dose: 200 mls/hr Multivitamins/Vitamin C 10 ml/Chromium/Copper/Manganese/Zinc 1 ml/ Amino Acids 1,011 mls @ 42 mls/hr IV .Q24H [facility] Last Admin: 05/13/17 17:39 Dose: 42 mls/hr Insulin Human Regular (Novolin R) 0 unit SC ACHS [facility] PRN Reason: Protocol Last Admin: 05/14/17 08:12 Dose: 8 unit Lactobacillus Acidophilus (Bacid Acidophilus) 1 cap PO DAILY [facility] Last Admin: 05/14/17 10:18 Dose: 1 cap Loperamide HCl (Imodium) 2 mg PO QID PRN PRN Reason: Diarrhea Last Admin: 05/01/17 22:58 Dose: 2 mg Magnesium Oxide (Mag-Ox) 400 mg PO DAILY [facility] Last Admin: 05/14/17 10:22 Dose: 400 mg Metoclopramide HCl (Reglan) 10 mg IVP ACHS [facility] Last Admin: 05/14/17 10:23 Dose: 10 mg Multivitamins (Hexavitamin) 1 tab PO DAILY [facility] Last Admin: 05/14/17 10:22 Dose: 1 tab Petrolatum (Desitin Original) 0 gm TOP TID PRN PRN Reason: Rash Tramadol HCl (Ultram) 25 mg PO TID PRN PRN Reason: Pain, Mild (1-3) Zinc Sulfate (Zinc Sulfate 220 Mg Cap) 220 mg PO DAILY [facility] Last Admin: 05/14/17 10:23 Dose: 220 mg - Labs Labs: 05/11/17 06:54 05/11/17 06:54 PT 11.9 SECONDS (9.7-12.2) 04/13/17 06:28 INR 1.1 04/13/17 06:28 APTT 27 SECONDS (21-34) 04/13/17 06:28 - Constitutional Appears: Non-toxic, Cachectic, Chronically Ill - Head Exam Head Exam: NORMOCEPHALIC - Eye Exam Eye Exam: PERRL - ENT Exam ENT Exam: Mucous Membranes Dry - Neck Exam Neck Exam: absent: Lymphadenopathy - Respiratory Exam Respiratory Exam: Decreased Breath Sounds - Cardiovascular Exam Cardiovascular Exam: REGULAR RHYTHM - GI/Abdominal Exam GI & Abdominal Exam: Distended, Soft, Tenderness - Rectal Exam Rectal Exam: Deferred - Exam Exam: NORMAL INSPECTION Assessment and Plan (1) Colonic fistula Status: Acute (2) Displacement of Mckeon catheter Status: Acute - Assessment and Plan (Free Text) Plan: 61 y/o F POD#32 s/p ex-lap, small bowel resection, bladder repair, appendectomy , and ileostomy cont rx as per dr Higgins
[2017-05-14] MEDS ORDERED: Tigecycline 100 MG in Dextrose 5% In Water 100 ML IVPB ONE (13:30)
--- NOTE | 2017-05-14 17:24 | CP.PCM.PN ---
Subjective - Date & Time of Evaluation Date of Evaluation: 05/14/17 Time of Evaluation: 09:00 - Subjective Subjective: clinically same Objective - Vital Signs/Intake and Output Vital Signs (last 24 hours): Temp Pulse Resp BP Pulse Ox 98.2 F 108 H 18 118/68 100 05/14/17 09:20 05/14/17 09:20 05/14/17 09:20 05/14/17 09:20 05/14/17 09:20 Intake and Output: 05/14/17 05/14/17 06:59 18:59 Intake Total 250 Output Total 800 Balance -550 - Medications Medications: Current Medications Acetaminophen/Codeine Phosphate (Tylenol/Codeine 300 Mg/30 Mg) 1 ea PO Q6 [facility] Last Admin: 05/14/17 12:44 Dose: Not Given Ascorbic Acid (Vitamin C 500 Mg Tab) 500 mg PO DAILY [facility] Last Admin: 05/14/17 10:23 Dose: 500 mg Enoxaparin Sodium (Lovenox) 40 mg SC Q12 [facility] Last Admin: 05/07/17 21:41 Dose: 40 mg Fluconazole (Diflucan Iv 200 Mg/100 Ml Ns) 100 mls @ 100 mls/hr IVPB DAILY [facility] Last Admin: 05/14/17 10:18 Dose: 100 mls/hr Multivitamins/Vitamin C 10 ml/Chromium/Copper/Manganese/Zinc 1 ml/ Amino Acids 1,011 mls @ 42 mls/hr IV .Q24H [facility] Last Admin: 05/13/17 17:39 Dose: 42 mls/hr Tigecycline 50 mg/ Dextrose 100 mls @ 100 mls/hr IVPB Q12H [facility] Insulin Human Regular (Novolin R) 0 unit SC ACHS [facility] PRN Reason: Protocol Last Admin: 05/14/17 12:40 Dose: Not Given Lactobacillus Acidophilus (Bacid Acidophilus) 1 cap PO DAILY [facility] Last Admin: 05/14/17 10:18 Dose: 1 cap Loperamide HCl (Imodium) 2 mg PO QID PRN PRN Reason: Diarrhea Last Admin: 05/01/17 22:58 Dose: 2 mg Magnesium Oxide (Mag-Ox) 400 mg PO DAILY [facility] Last Admin: 05/14/17 10:22 Dose: 400 mg Metoclopramide HCl (Reglan) 10 mg IVP ACHS [facility] Last Admin: 05/14/17 12:41 Dose: Not Given Multivitamins (Hexavitamin) 1 tab PO DAILY [facility] Last Admin: 05/14/17 10:22 Dose: 1 tab Petrolatum (Desitin Original) 0 gm TOP TID PRN PRN Reason: Rash Tramadol HCl (Ultram) 25 mg PO TID PRN PRN Reason: Pain, Mild (1-3) Zinc Sulfate (Zinc Sulfate 220 Mg Cap) 220 mg PO DAILY [facility] Last Admin: 05/14/17 10:23 Dose: 220 mg - Labs Labs: 05/11/17 06:54 05/11/17 06:54 PT 11.9 SECONDS (9.7-12.2) 04/13/17 06:28 INR 1.1 04/13/17 06:28 APTT 27 SECONDS (21-34) 04/13/17 06:28 - Constitutional Appears: Well - Head Exam Head Exam: ATRAUMATIC, NORMAL INSPECTION, NORMOCEPHALIC - Eye Exam Eye Exam: EOMI, Normal appearance, PERRL Pupil Exam: NORMAL ACCOMODATION, PERRL - ENT Exam ENT Exam: Mucous Membranes Moist, Normal Exam - Neck Exam Neck Exam: Full ROM, Normal Inspection. absent: Lymphadenopathy - Respiratory Exam Respiratory Exam: Decreased Breath Sounds - Cardiovascular Exam Cardiovascular Exam: REGULAR RHYTHM, +S1, +S2 - GI/Abdominal Exam GI & Abdominal Exam: Soft, Diminished Bowel Sounds - Rectal Exam Rectal Exam: Deferred - Back Exam Back Exam: NORMAL INSPECTION - Neurological Exam Neurological Exam: Alert, Awake, CN II-XII Intact, Normal Gait, Oriented x3 - Psychiatric Exam Psychiatric exam: Normal Affect, Normal Mood - Skin Skin Exam: Dry, Intact, Normal Color, Warm Assessment and Plan (1) Colonic fistula Status: Acute (2) Displacement of Mckeon catheter Status: Acute - Assessment and Plan (Free Text) Plan: Renal ultrasound suggestive of slight interval increase in left caliectasis, persistent mild proximal left ureterectasis, pelvocaliectasis with nephrostomy tube in place. Patient examined. Diffuse abdominal pain present. Continue broad-spectrum antibiotic. Continue insulin, other antidiabetic medications, antihypertensive medications and supportive care.
[2017-05-14] MEDS ORDERED: *** PPN # 3 IV ONE (18:00)
[2017-05-14] MEDS: PPN# 2 IV SCH (22:20)
--- NOTE | 2017-05-14 23:25 | PCM.URO ---
Urology Progress Note - General General: No Complaints - Subjective Flank Pain: No Vomiting: No Hematuria: No Chest Pain: No - Objective Lab Studies: Reviewed Lab Results Last 24 Hours: Laboratory Results - last 24 hr 05/14/17 05/14/17 05/14/17 06:32 11:33 17:08 POC Glucose (mg/dL) 315 H 79 175 H 05/14/17 21:58 POC Glucose (mg/dL) 238 H Intake & Output: Intake & Output 05/14/17 05/14/17 05/15/17 06:59 18:59 06:59 Intake Total 250 Output Total 800 Balance -550 Intake: Intake, IV Amount 150 Right Upper arm 150 Oral 100 TPN/PPN Output: Gastric Amount 200 Right 200 Drainage 200 Abdomen 200 Urine 400 Urethral (Gonzalez) 400 Stool Other: # Bowel Movements Vital Signs: Vital Signs - 24 hr 05/14/17 05/14/17 05/14/17 01:00 EST 04:15 09:20 Temperature 98.2 F 98.2 F Pulse Rate 115 H 108 H Respiratory 20 18 Rate Blood Pressure 92/55 L 96/55 L 118/68 O2 Sat by Pulse 98 100 Oximetry 05/14/17 15:15 Temperature 98.5 F Pulse Rate 123 H Respiratory 18 Rate Blood Pressure 102/63 O2 Sat by Pulse 100 Oximetry - Physical Exam Abdominal Exam: Soft, Non-Tender, Non-Distended Back: No CVA Tenderness (R NT draining well. L NT is out) Urinary Catheter Draining Well: Yes (increased output via gonzalez) Urine Color: Yellow (cloudy urine) - Plan Wound Care: Yes Catheter Care: Yes Intake & Output: Yes Additional Information: Rec: nephrostogram. Poss cystogram. Renal US. Discussed w surgical staff - Date & Time of Note Date: 05/12/17 Time: 14:15
[2017-05-15] MEDS: Acetaminophen-Codeine 300/30 mg Tab PO SCH ×4 (00:43→18:02)
[2017-05-15] MEDS: Tigecycline 50 MG in Dextrose 5% In Water 100 ML IVPB SCH ×2 (00:46→13:26)
[2017-05-15] MEDS ORDERED: DiphenhydrAMINE 50 mg/ml Inj IVP STA (05:28)
[2017-05-15] MEDS: (Novolin R) Insulin Human Regular 100 units/ml vial SC SCH ×4 (07:37→21:44)
[2017-05-15 08:23] LABS: HEMATOCRIT 33.2 % (34.0-47.0); MEAN CORPUSCULAR HEMOGLOBIN 28.8 pg (27.0-31.0); MEAN PLATELET VOLUME 8.6 fL (7.2-11.7); RED CELL DISTRIBUTION WIDTH 15.8 % (11.5-14.5); WHITE BLOOD COUNT 10.3 K/uL (4.8-10.8)
--- NOTE | 2017-05-15 08:26 | CP.PCM.PN ---
Subjective - Date & Time of Evaluation Date of Evaluation: 05/15/17 Time of Evaluation: 09:40 - Subjective Subjective: clinically same Objective - Vital Signs/Intake and Output Vital Signs (last 24 hours): Temp Pulse Resp BP Pulse Ox 98.4 F 118 H 18 123/82 97 05/15/17 00:54 05/15/17 00:54 05/15/17 00:54 05/15/17 00:54 05/15/17 00:54 Intake and Output: 05/15/17 05/15/17 06:59 18:59 Intake Total 636 Output Total 1470 Balance -834 - Medications Medications: Current Medications Acetaminophen/Codeine Phosphate (Tylenol/Codeine 300 Mg/30 Mg) 1 ea PO Q6 [facility] Last Admin: 05/15/17 05:11 Dose: 1 ea Ascorbic Acid (Vitamin C 500 Mg Tab) 500 mg PO DAILY [facility] Last Admin: 05/14/17 10:23 Dose: 500 mg Enoxaparin Sodium (Lovenox) 40 mg SC Q12 [facility] Last Admin: 05/07/17 21:41 Dose: 40 mg Fluconazole (Diflucan Iv 200 Mg/100 Ml Ns) 100 mls @ 100 mls/hr IVPB DAILY [facility] Last Admin: 05/14/17 10:18 Dose: 100 mls/hr Multivitamins/Vitamin C 10 ml/Chromium/Copper/Manganese/Zinc 1 ml/ Amino Acids 1,011 mls @ 42 mls/hr IV .Q24H [facility] Last Admin: 05/14/17 22:20 Dose: Not Given Tigecycline 50 mg/ Dextrose 100 mls @ 100 mls/hr IVPB Q12H [facility] Last Admin: 05/15/17 00:46 Dose: 100 mls/hr Chromium/Copper/Manganese/Zinc (1 ml/ Amino Acids) 1,001 mls @ 42 mls/hr IV .[id number] [facility] Stop: 05/15/17 17:49 Last Admin: 05/14/17 18:20 Dose: 42 mls/hr Insulin Human Regular (Novolin R) 0 unit SC ACHS [facility] PRN Reason: Protocol Last Admin: 05/15/17 07:37 Dose: 4 unit Lactobacillus Acidophilus (Bacid Acidophilus) 1 cap PO DAILY [facility] Last Admin: 05/14/17 10:18 Dose: 1 cap Loperamide HCl (Imodium) 2 mg PO QID PRN PRN Reason: Diarrhea Last Admin: 05/01/17 22:58 Dose: 2 mg Magnesium Oxide (Mag-Ox) 400 mg PO DAILY [facility] Last Admin: 05/14/17 10:22 Dose: 400 mg Metoclopramide HCl (Reglan) 10 mg IVP ACHS [facility] Last Admin: 05/15/17 07:38 Dose: 10 mg Multivitamins (Hexavitamin) 1 tab PO DAILY [facility] Last Admin: 05/14/17 10:22 Dose: 1 tab Petrolatum (Desitin Original) 0 gm TOP TID PRN PRN Reason: Rash Tramadol HCl (Ultram) 25 mg PO TID PRN PRN Reason: Pain, Mild (1-3) Zinc Sulfate (Zinc Sulfate 220 Mg Cap) 220 mg PO DAILY [facility] Last Admin: 05/14/17 10:23 Dose: 220 mg - Labs Labs: 05/15/17 08:13 05/11/17 06:54 PT 11.9 SECONDS (9.7-12.2) 04/13/17 06:28 INR 1.1 04/13/17 06:28 APTT 27 SECONDS (21-34) 04/13/17 06:28 - Constitutional Appears: Well - Head Exam Head Exam: ATRAUMATIC, NORMAL INSPECTION, NORMOCEPHALIC - Eye Exam Eye Exam: EOMI, Normal appearance, PERRL Pupil Exam: NORMAL ACCOMODATION, PERRL - ENT Exam ENT Exam: Mucous Membranes Moist, Normal Exam - Neck Exam Neck Exam: Full ROM, Normal Inspection. absent: Lymphadenopathy - Respiratory Exam Respiratory Exam: Clear to Ausculation Bilateral, NORMAL BREATHING PATTERN - Cardiovascular Exam Cardiovascular Exam: REGULAR RHYTHM, +S1, +S2. absent: Murmur - GI/Abdominal Exam GI & Abdominal Exam: Soft, Normal Bowel Sounds. absent: Tenderness - Rectal Exam Rectal Exam: Deferred - Back Exam Back Exam: NORMAL INSPECTION - Neurological Exam Neurological Exam: Alert, Awake, CN II-XII Intact, Normal Gait, Oriented x3 - Psychiatric Exam Psychiatric exam: Normal Affect, Normal Mood - Skin Skin Exam: Dry, Intact, Normal Color, Warm Assessment and Plan (1) Colonic fistula Status: Acute (2) Displacement of Mckeon catheter Status: Acute - Assessment and Plan (Free Text) Plan: Patient examined. Diffuse abdominal pain present. Continue broad-spectrum antibiotic. Continue insulin, other antidiabetic medications, antihypertensive medications and supportive care.
--- NOTE | 2017-05-15 08:28 | CP.PCM.PN ---
<Tod Diaz - Last Filed: 05/15/17 18:01> Subjective - Date & Time of Evaluation Date of Evaluation: 05/15/17 Time of Evaluation: 06:55 - Subjective Subjective: General Surgery Note for Dr. Cabral Patient seen and examined at bedside. No acute event overnight. Patient's ileosotomy site is currently not leaking. Patient is still on PPN, will be changed to TPN. Pain is controlled. She is tolerating diet but is not eating much. Objective - Vital Signs/Intake and Output Vital Signs (last 24 hours): Temp Pulse Resp BP Pulse Ox 98.0 F 112 H 14 99/69 L 99 05/15/17 08:26 05/15/17 08:26 05/15/17 08:26 05/15/17 08:26 05/15/17 08:26 Intake and Output: 05/15/17 05/15/17 06:59 18:59 Intake Total 636 Output Total 1470 Balance -834 - Medications Medications: Current Medications Acetaminophen/Codeine Phosphate (Tylenol/Codeine 300 Mg/30 Mg) 1 ea PO Q6 [facility] Last Admin: 05/15/17 05:11 Dose: 1 ea Ascorbic Acid (Vitamin C 500 Mg Tab) 500 mg PO DAILY [facility] Last Admin: 05/14/17 10:23 Dose: 500 mg Enoxaparin Sodium (Lovenox) 40 mg SC Q12 [facility] Last Admin: 05/07/17 21:41 Dose: 40 mg Fluconazole (Diflucan Iv 200 Mg/100 Ml Ns) 100 mls @ 100 mls/hr IVPB DAILY [facility] Last Admin: 05/14/17 10:18 Dose: 100 mls/hr Multivitamins/Vitamin C 10 ml/Chromium/Copper/Manganese/Zinc 1 ml/ Amino Acids 1,011 mls @ 42 mls/hr IV .Q24H [facility] Last Admin: 05/14/17 22:20 Dose: Not Given Tigecycline 50 mg/ Dextrose 100 mls @ 100 mls/hr IVPB Q12H [facility] Last Admin: 05/15/17 00:46 Dose: 100 mls/hr Chromium/Copper/Manganese/Zinc (1 ml/ Amino Acids) 1,001 mls @ 42 mls/hr IV .[id number] ONE Stop: 05/15/17 17:49 Last Admin: 05/14/17 18:20 Dose: 42 mls/hr Insulin Human Regular (Novolin R) 0 unit SC ACHS [facility] PRN Reason: Protocol Last Admin: 05/15/17 07:37 Dose: 4 unit Lactobacillus Acidophilus (Bacid Acidophilus) 1 cap PO DAILY [facility] Last Admin: 05/14/17 10:18 Dose: 1 cap Loperamide HCl (Imodium) 2 mg PO QID PRN PRN Reason: Diarrhea Last Admin: 05/01/17 22:58 Dose: 2 mg Magnesium Oxide (Mag-Ox) 400 mg PO DAILY [facility] Last Admin: 05/14/17 10:22 Dose: 400 mg Metoclopramide HCl (Reglan) 10 mg IVP ACHS [facility] Last Admin: 05/15/17 07:38 Dose: 10 mg Multivitamins (Hexavitamin) 1 tab PO DAILY [facility] Last Admin: 05/14/17 10:22 Dose: 1 tab Petrolatum (Desitin Original) 0 gm TOP TID PRN PRN Reason: Rash Tramadol HCl (Ultram) 25 mg PO TID PRN PRN Reason: Pain, Mild (1-3) Zinc Sulfate (Zinc Sulfate 220 Mg Cap) 220 mg PO DAILY [facility] Last Admin: 05/14/17 10:23 Dose: 220 mg - Labs Labs: 05/15/17 08:13 05/11/17 06:54 PT 11.9 SECONDS (9.7-12.2) 04/13/17 06:28 INR 1.1 04/13/17 06:28 APTT 27 SECONDS (21-34) 04/13/17 06:28 - Constitutional Appears: No Acute Distress, Cachectic - Head Exam Head Exam: ATRAUMATIC, NORMOCEPHALIC - Eye Exam Eye Exam: Normal appearance - ENT Exam ENT Exam: Mucous Membranes Moist - Respiratory Exam Respiratory Exam: NORMAL BREATHING PATTERN - Cardiovascular Exam Cardiovascular Exam: Tachycardia - GI/Abdominal Exam GI & Abdominal Exam: Soft, Tenderness. absent: Distended, Firm, Guarding, Rigid , Rebound Additional comments: ileostomy functioning properly, wafer/bag are intact without leak wound vac on suction, negative pressure dressing intact with no air leaks - Extremities Exam Extremities Exam: Normal Capillary Refill - Back Exam Additional comments: R nephrostomy tube in place - Neurological Exam Neurological Exam: Alert, Awake - Psychiatric Exam Psychiatric exam: Normal Affect, Normal Mood - Skin Skin Exam: Dry, Intact, Normal Color, Warm Assessment and Plan - Assessment and Plan (Free Text) Plan: 61 F s/p ex-lap, small bowel resection, bladder repair, appendectomy, and ileostomy POD #33 -Wound vac change today -TPN -Analgesics PRN -Ileostomy care, change/reinforce PRN -Will discuss with Dr. Misha Diaz PGY1 <Sumeet Cabral - Last Filed: 05/20/17 19:41> Objective - Vital Signs/Intake and Output Vital Signs (last 24 hours): Temp Pulse Resp BP Pulse Ox 97.5 F L 117 H 20 89/53 L 100 05/20/17 15:00 05/20/17 15:00 05/20/17 15:00 05/20/17 15:00 05/20/17 15:00 - Medications Medications: Current Medications Acetaminophen/Codeine Phosphate (Tylenol/Codeine 300 Mg/30 Mg) 1 ea PO Q6 [facility] Last Admin: 05/20/17 19:00 Dose: 1 ea Ascorbic Acid (Vitamin C 500 Mg Tab) 500 mg PO DAILY [facility] Last Admin: 05/20/17 09:47 Dose: 500 mg Enoxaparin Sodium (Lovenox) 40 mg SC Q12 [facility] Last Admin: 05/07/17 21:41 Dose: 40 mg Fluconazole (Diflucan Iv 200 Mg/100 Ml Ns) 100 mls @ 100 mls/hr IVPB DAILY [facility] Last Admin: 05/20/17 09:48 Dose: 100 mls/hr Linezolid (Zyvox 600mg/300ml D5w) 600 mg in 300 mls @ 200 mls/hr IVPB Q12 [facility] Last Admin: 05/20/17 09:54 Dose: 200 mls/hr Meropenem 500 mg/ Dextrose 100 mls @ 100 mls/hr IVPB Q8 [facility] Last Admin: 05/20/17 13:33 Dose: 100 mls/hr Chromium/Copper/Manganese/Zinc 1 ml/ Multivitamins/Vitamin C 10 ml/ Amino Acids 1,011 mls @ 42 mls/hr IV .Q24H [facility] Stop: 05/21/17 17:59 Last Admin: 05/20/17 19:00 Dose: 42 mls/hr Fat Emulsion Intravenous (Intralipid 20%) 250 mls @ 42 mls/hr IV TTS@1800 [facility] Stop: 05/22/17 18:01 Last Admin: 05/20/17 19:00 Dose: 42 mls/hr Insulin Human Regular (Novolin R) 0 unit SC ACHS [facility] PRN Reason: Protocol Last Admin: 05/20/17 19:02 Dose: 2 unit Lactobacillus Acidophilus (Bacid Acidophilus) 1 cap PO DAILY [facility] Last Admin: 05/20/17 09:48 Dose: 1 cap Loperamide HCl (Imodium) 2 mg PO QID PRN PRN Reason: Diarrhea Last Admin: 05/01/17 22:58 Dose: 2 mg Magnesium Oxide (Mag-Ox) 400 mg PO DAILY [facility] Last Admin: 05/20/17 09:48 Dose: 400 mg Multivitamins (Hexavitamin) 1 tab PO DAILY [facility] Last Admin: 05/20/17 09:48 Dose: 1 tab Ondansetron HCl (Zofran Tab) 4 mg PO Q8H PRN PRN Reason: Nausea/Vomiting Petrolatum (Desitin Original) 0 gm TOP TID PRN PRN Reason: Rash Last Admin: 05/20/17 06:44 Dose: 1 applic Tramadol HCl (Ultram) 25 mg PO TID PRN PRN Reason: Pain, Mild (1-3) Zinc Sulfate (Zinc Sulfate 220 Mg Cap) 220 mg PO DAILY [facility] Last Admin: 05/20/17 09:48 Dose: 220 mg - Labs Labs: 05/20/17 11:10 05/20/17 11:10 PT 11.9 SECONDS (9.7-12.2) 04/13/17 06:28 INR 1.1 04/13/17 06:28 APTT 27 SECONDS (21-34) 04/13/17 06:28 Attending/Attestation - Attestation I have personally seen and examined this patient.: Yes I have fully participated in the care of the patient.: Yes I have reviewed all pertinent clinical information, including history, physical exam and plan: Yes Notes (Text): Pt was seen and examined at bedside Agree with above note and assessment Pt is improving clinically OOB to walk C/W IV antibiotics Plan d.w pt in detail.
[2017-05-15 08:45] LABS: CHLORIDE 91 mmol/L (98-107); POTASSIUM 5.3 mmol/L (3.6-5.2); SODIUM 124 mmol/L (132-148)
[2017-05-15 08:48] LABS: BLOOD UREA NITROGEN 68 mg/dL (7-17); CALCIUM 9.8 mg/dl (8.6-10.4); CARBON DIOXIDE 23 mmol/L (22-30); GFR AFRICAN-AMERICAN > 60; GLUCOSE,RANDOM 160 mg/dL (65-105)
[2017-05-15] MEDS ORDERED: Sod Polystyrene Sulf 15 gm/60 ml Susp PO ONE (09:32)
[2017-05-15] MEDS: Fluconazole IV 200mg/100 ml NS 100 ML IVPB SCH (09:42)
[2017-05-15] MEDS: Lactobacillus Acidophilus 500 MU Cap PO SCH (09:45)
[2017-05-15] MEDS: Multiple Vitamins Tab PO SCH (09:45)
[2017-05-15] MEDS: Magnesium Oxide 400 mg Tab UD PO SCH (09:45)
[2017-05-15] MEDS ORDERED: TPN #1 IV ONE ×2 (18:00)
[2017-05-15] MEDS ORDERED: Fat Emulsion 20% IV 250 ML IV ONE (18:30)
[2017-05-15] MEDS: PPN# 2 IV SCH (18:30)
[2017-05-16] MEDS: Tigecycline 50 MG in Dextrose 5% In Water 100 ML IVPB SCH ×2 (01:30→14:00)
[2017-05-16] MEDS ORDERED: TPN #2 IV ONE (06:25)
[2017-05-16] MEDS: (Novolin R) Insulin Human Regular 100 units/ml vial SC SCH ×4 (08:30→22:05)
[2017-05-16] MEDS ORDERED: DiphenhydrAMINE 12.5 mg/5 ml LIQ UD (5 ml) PO STA (08:56)
[2017-05-16] MEDS: Fluconazole IV 200mg/100 ml NS 100 ML IVPB SCH (09:43)
[2017-05-16] MEDS: Magnesium Oxide 400 mg Tab UD PO SCH ×2 (09:43→13:20)
[2017-05-16] MEDS: Multiple Vitamins Tab PO SCH ×2 (09:43→13:20)
[2017-05-16] MEDS: Lactobacillus Acidophilus 500 MU Cap PO SCH ×2 (09:43→13:20)
--- NOTE | 2017-05-16 10:20 | CP.PCM.PN ---
Addendum entered and electronically signed by Vikki Sims DO 05/16/17 10:24 : Patient given Benadryl for itchiness Original Note: <Vikki Sims - Last Filed: 05/16/17 10:18> Subjective - Date & Time of Evaluation Date of Evaluation: 05/16/17 Time of Evaluation: 07:00 - Subjective Subjective: GENERAL SURGERY PROGRESS NOTE FOR DR. CABRAL Patient seen and examined at bedside. Wound vac in place on suction, no leak. Patient reports that she is itchy. She is tolerating her diet. Objective - Vital Signs/Intake and Output Vital Signs (last 24 hours): Temp Pulse Resp BP Pulse Ox 98.6 F 120 H 20 97/63 L 94 L 05/16/17 07:00 05/16/17 09:41 05/16/17 07:00 05/16/17 09:41 05/16/17 07:00 Intake and Output: 05/16/17 05/16/17 06:59 18:59 Intake Total 1555 Output Total 1230 Balance 325 - Medications Medications: Current Medications Acetaminophen/Codeine Phosphate (Tylenol/Codeine 300 Mg/30 Mg) 1 ea PO Q6 PRN PRN Reason: Pain, Mild (1-3) Ascorbic Acid (Vitamin C 500 Mg Tab) 500 mg PO DAILY [facility] Last Admin: 05/16/17 09:43 Dose: 500 mg Enoxaparin Sodium (Lovenox) 40 mg SC Q12 [facility] Last Admin: 05/07/17 21:41 Dose: 40 mg Fluconazole (Diflucan Iv 200 Mg/100 Ml Ns) 100 mls @ 100 mls/hr IVPB DAILY [facility] Last Admin: 05/16/17 09:43 Dose: 100 mls/hr Multivitamins/Vitamin C 10 ml/Chromium/Copper/Manganese/Zinc 1 ml/ Amino Acids 1,011 mls @ 42 mls/hr IV .Q24H [facility] Last Admin: 05/15/17 18:30 Dose: Not Given Tigecycline 50 mg/ Dextrose 100 mls @ 100 mls/hr IVPB Q12H [facility] Last Admin: 05/16/17 01:30 Dose: 100 mls/hr Heparin Sodium (Porcine) 1,000 units/ Chromium/Copper/Manganese/Zinc 1 ml/ Sodium Chloride 35 meq/ Magnesium Sulfate 6 meq/ Calcium Gluconate 4.5 meq/ Amino Acids 1,021.9052 mls @ 83 mls/hr IV .[id number] [facility] Stop: 05/16/17 18:43 Last Admin: 05/16/17 06:26 Dose: 83 mls/hr Insulin Human Regular (Novolin R) 0 unit SC ACHS [facility] PRN Reason: Protocol Last Admin: 05/16/17 08:30 Dose: 4 unit Lactobacillus Acidophilus (Bacid Acidophilus) 1 cap PO DAILY [facility] Last Admin: 05/16/17 09:43 Dose: 1 cap Loperamide HCl (Imodium) 2 mg PO QID PRN PRN Reason: Diarrhea Last Admin: 05/01/17 22:58 Dose: 2 mg Magnesium Oxide (Mag-Ox) 400 mg PO DAILY [facility] Last Admin: 05/16/17 09:43 Dose: 400 mg Metoclopramide HCl (Reglan) 10 mg IVP ACHS [facility] Last Admin: 05/16/17 08:30 Dose: 10 mg Multivitamins (Hexavitamin) 1 tab PO DAILY [facility] Last Admin: 05/16/17 09:43 Dose: 1 tab Petrolatum (Desitin Original) 0 gm TOP TID PRN PRN Reason: Rash Tramadol HCl (Ultram) 25 mg PO TID PRN PRN Reason: Pain, Mild (1-3) Zinc Sulfate (Zinc Sulfate 220 Mg Cap) 220 mg PO DAILY [facility] Last Admin: 05/16/17 09:43 Dose: 220 mg - Labs Labs: 05/15/17 08:13 05/15/17 08:13 PT 11.9 SECONDS (9.7-12.2) 04/13/17 06:28 INR 1.1 04/13/17 06:28 APTT 27 SECONDS (21-34) 04/13/17 06:28 - Constitutional Appears: Non-toxic, No Acute Distress, Chronically Ill - Respiratory Exam Respiratory Exam: NORMAL BREATHING PATTERN. absent: Respiratory Distress - Cardiovascular Exam Cardiovascular Exam: Tachycardia - GI/Abdominal Exam GI & Abdominal Exam: Soft, Tenderness (mild tenderness near incision site). absent: Distended, Firm, Guarding, Rigid Additional comments: Ileostomy functioning properly, no leak Wound vac on suction, no air leak - Back Exam Additional comments: Right nephrostomy tube - Neurological Exam Neurological Exam: Alert, Awake Assessment and Plan - Assessment and Plan (Free Text) Assessment: 61yo F s/p Ex lap, small bowel resection, bladder repair, appendectomy, ileostomy POD#34 - Wound vac changed yesterday - Continue TPN - Dr. Cabral discussed case with Dr. Trinidad. Stat Renal US was ordered to evaluate for hydronephrosis. Once hydronephrosis develops, patient can have left nephrostomy tube replaced. - Cystogram and nephrostogram via right nephrostomy tube - DC planning - Discussed plan with Dr. Misha Sims PGY-3 <Sumeet Cabral - Last Filed: 05/20/17 19:43> Objective - Vital Signs/Intake and Output Vital Signs (last 24 hours): Temp Pulse Resp BP Pulse Ox 97.5 F L 117 H 20 89/53 L 100 05/20/17 15:00 05/20/17 15:00 05/20/17 15:00 05/20/17 15:00 05/20/17 15:00 - Medications Medications: Current Medications Acetaminophen/Codeine Phosphate (Tylenol/Codeine 300 Mg/30 Mg) 1 ea PO Q6 [facility] Last Admin: 05/20/17 19:00 Dose: 1 ea Ascorbic Acid (Vitamin C 500 Mg Tab) 500 mg PO DAILY [facility] Last Admin: 05/20/17 09:47 Dose: 500 mg Enoxaparin Sodium (Lovenox) 40 mg SC Q12 [facility] Last Admin: 05/07/17 21:41 Dose: 40 mg Fluconazole (Diflucan Iv 200 Mg/100 Ml Ns) 100 mls @ 100 mls/hr IVPB DAILY [facility] Last Admin: 05/20/17 09:48 Dose: 100 mls/hr Linezolid (Zyvox 600mg/300ml D5w) 600 mg in 300 mls @ 200 mls/hr IVPB Q12 [facility] Last Admin: 05/20/17 09:54 Dose: 200 mls/hr Meropenem 500 mg/ Dextrose 100 mls @ 100 mls/hr IVPB Q8 [facility] Last Admin: 05/20/17 13:33 Dose: 100 mls/hr Chromium/Copper/Manganese/Zinc 1 ml/ Multivitamins/Vitamin C 10 ml/ Amino Acids 1,011 mls @ 42 mls/hr IV .Q24H [facility] Stop: 05/21/17 17:59 Last Admin: 05/20/17 19:00 Dose: 42 mls/hr Fat Emulsion Intravenous (Intralipid 20%) 250 mls @ 42 mls/hr IV TTS@1800 [facility] Stop: 05/22/17 18:01 Last Admin: 05/20/17 19:00 Dose: 42 mls/hr Insulin Human Regular (Novolin R) 0 unit SC ACHS [facility] PRN Reason: Protocol Last Admin: 05/20/17 19:02 Dose: 2 unit Lactobacillus Acidophilus (Bacid Acidophilus) 1 cap PO DAILY [facility] Last Admin: 05/20/17 09:48 Dose: 1 cap Loperamide HCl (Imodium) 2 mg PO QID PRN PRN Reason: Diarrhea Last Admin: 05/01/17 22:58 Dose: 2 mg Magnesium Oxide (Mag-Ox) 400 mg PO DAILY [facility] Last Admin: 05/20/17 09:48 Dose: 400 mg Multivitamins (Hexavitamin) 1 tab PO DAILY [facility] Last Admin: 05/20/17 09:48 Dose: 1 tab Ondansetron HCl (Zofran Tab) 4 mg PO Q8H PRN PRN Reason: Nausea/Vomiting Petrolatum (Desitin Original) 0 gm TOP TID PRN PRN Reason: Rash Last Admin: 05/20/17 06:44 Dose: 1 applic Tramadol HCl (Ultram) 25 mg PO TID PRN PRN Reason: Pain, Mild (1-3) Zinc Sulfate (Zinc Sulfate 220 Mg Cap) 220 mg PO DAILY [facility] Last Admin: 05/20/17 09:48 Dose: 220 mg - Labs Labs: 05/20/17 11:10 05/20/17 11:10 PT 11.9 SECONDS (9.7-12.2) 04/13/17 06:28 INR 1.1 04/13/17 06:28 APTT 27 SECONDS (21-34) 04/13/17 06:28 Attending/Attestation - Attestation I have personally seen and examined this patient.: Yes I have fully participated in the care of the patient.: Yes I have reviewed all pertinent clinical information, including history, physical exam and plan: Yes Notes (Text): Pt was seen and examined at bedside Agree with above note and assessment Ileostomy site care C/W IV antibiotics Plan d.w pt in detail.
[2017-05-16 11:33] LABS: CHLORIDE 93 mmol/L (98-107)
[2017-05-16 11:34] LABS: POTASSIUM 4.2 mmol/L (3.6-5.2); SODIUM 123 mmol/L (132-148)
[2017-05-16 11:36] LABS: ALB/GLOB RATIO 0.7 (1.0-2.1); ALKALINE PHOSPHATASE 427 U/L (38-126); ALT/SGPT 72 U/L (9-52); AST/SGOT 43 U/L (14-36); BILIRUBIN,TOTAL 0.7 mg/dL (0.2-1.3); BLOOD UREA NITROGEN 98 mg/dL (7-17); CARBON DIOXIDE 22 mmol/L (22-30); GFR AFRICAN-AMERICAN > 60; GLUCOSE,RANDOM 164 mg/dL (65-105); PHOSPHOROUS 4.8 mg/dL (2.5-4.5); TOTAL PROTEIN 6.8 g/dL (6.3-8.3)
[2017-05-16 11:37] LABS: CALCIUM 9.9 mg/dl (8.6-10.4); MAGNESIUM 1.8 mg/dL (1.6-2.3)
--- NOTE | 2017-05-16 12:16 | US ---
PROCEDURE: Ultrasound of the Kidneys HISTORY: eval for hydronephrosis COMPARISON: Renal ultrasound performed 05/12/17 TECHNIQUE: Sonogram of the kidneys. FINDINGS: RIGHT KIDNEY: Measures: 10.0 x 5.0 x 4.7 cm. Nephrostomy tube. Mild hydronephrosis. LEFT KIDNEY: Measures: 7.9 x 4.6 x 4.2 cm. Nephrostomy tube. Mild hydronephrosis. OTHER FINDINGS: Mckeon catheter within the urinary bladder. IMPRESSION: Bilateral nephrostomy tubes. Bilateral mild hydronephrosis. Mckeon catheter within the urinary bladder.
[2017-05-16] MEDS: Fat Emulsion 20% IV 250 ML IV SCH (17:42)
[2017-05-16] MEDS ORDERED: PPN#1 IV SCH (18:00)
--- NOTE | 2017-05-16 19:53 | CP.PCM.PN ---
Subjective - Date & Time of Evaluation Date of Evaluation: 05/16/17 Time of Evaluation: 09:20 - Subjective Subjective: clinically same Objective - Vital Signs/Intake and Output Vital Signs (last 24 hours): Temp Pulse Resp BP Pulse Ox 98 F 122 H 18 92/53 L 98 05/16/17 15:24 05/16/17 15:24 05/16/17 15:24 05/16/17 15:24 05/16/17 15:24 Intake and Output: 05/16/17 05/17/17 18:59 06:59 Intake Total 1030 Output Total 800 Balance 230 - Medications Medications: Current Medications Acetaminophen/Codeine Phosphate (Tylenol/Codeine 300 Mg/30 Mg) 1 ea PO Q6 PRN PRN Reason: Pain, Mild (1-3) Ascorbic Acid (Vitamin C 500 Mg Tab) 500 mg PO DAILY [facility] Last Admin: 05/16/17 13:20 Dose: Not Given Enoxaparin Sodium (Lovenox) 40 mg SC Q12 [facility] Last Admin: 05/07/17 21:41 Dose: 40 mg Fluconazole (Diflucan Iv 200 Mg/100 Ml Ns) 100 mls @ 100 mls/hr IVPB DAILY [facility] Last Admin: 05/16/17 09:43 Dose: 100 mls/hr Tigecycline 50 mg/ Dextrose 100 mls @ 100 mls/hr IVPB Q12H [facility] Last Admin: 05/16/17 14:00 Dose: 100 mls/hr Multivitamins/Vitamin C 10 ml/Chromium/Copper/Manganese/Zinc 1 ml/ Amino Acids 1,011 mls @ 42 mls/hr IV .Q24H [facility] Stop: 05/17/17 17:59 Last Admin: 05/16/17 17:42 Dose: 42 mls/hr Fat Emulsion Intravenous (Intralipid 20%) 250 mls @ 42 mls/hr IV TTS@1800 [facility] Stop: 05/22/17 18:01 Last Admin: 05/16/17 17:42 Dose: 42 mls/hr Insulin Human Regular (Novolin R) 0 unit SC ACHS [facility] PRN Reason: Protocol Last Admin: 05/16/17 17:15 Dose: 2 unit Lactobacillus Acidophilus (Bacid Acidophilus) 1 cap PO DAILY [facility] Last Admin: 05/16/17 13:20 Dose: Not Given Loperamide HCl (Imodium) 2 mg PO QID PRN PRN Reason: Diarrhea Last Admin: 05/01/17 22:58 Dose: 2 mg Magnesium Oxide (Mag-Ox) 400 mg PO DAILY [facility] Last Admin: 05/16/17 13:20 Dose: Not Given Metoclopramide HCl (Reglan) 10 mg IVP ACHS [facility] Last Admin: 05/16/17 17:15 Dose: 10 mg Multivitamins (Hexavitamin) 1 tab PO DAILY [facility] Last Admin: 05/16/17 13:20 Dose: Not Given Petrolatum (Desitin Original) 0 gm TOP TID PRN PRN Reason: Rash Tramadol HCl (Ultram) 25 mg PO TID PRN PRN Reason: Pain, Mild (1-3) Zinc Sulfate (Zinc Sulfate 220 Mg Cap) 220 mg PO DAILY [facility] Last Admin: 05/16/17 13:20 Dose: Not Given - Labs Labs: 05/15/17 08:13 05/16/17 11:18 PT 11.9 SECONDS (9.7-12.2) 04/13/17 06:28 INR 1.1 04/13/17 06:28 APTT 27 SECONDS (21-34) 04/13/17 06:28 - Constitutional Appears: Well - Head Exam Head Exam: ATRAUMATIC, NORMAL INSPECTION, NORMOCEPHALIC - Eye Exam Eye Exam: EOMI, Normal appearance, PERRL Pupil Exam: NORMAL ACCOMODATION, PERRL - ENT Exam ENT Exam: Mucous Membranes Moist, Normal Exam - Neck Exam Neck Exam: Full ROM, Normal Inspection. absent: Lymphadenopathy - Respiratory Exam Respiratory Exam: Decreased Breath Sounds - Cardiovascular Exam Cardiovascular Exam: REGULAR RHYTHM, +S1, +S2 - GI/Abdominal Exam GI & Abdominal Exam: Soft, Diminished Bowel Sounds - Rectal Exam Rectal Exam: Deferred - Back Exam Back Exam: NORMAL INSPECTION - Neurological Exam Neurological Exam: Alert, Awake, CN II-XII Intact, Normal Gait, Oriented x3 - Psychiatric Exam Psychiatric exam: Normal Affect, Normal Mood - Skin Skin Exam: Dry, Intact, Normal Color, Warm Assessment and Plan (1) Colonic fistula Status: Acute (2) Displacement of Mckeon catheter Status: Acute - Assessment and Plan (Free Text) Plan: Patient examined. Diffuse abdominal pain present. Continue broad-spectrum antibiotic. Continue insulin, other antidiabetic medications, antihypertensive medications and supportive care.
[2017-05-17] MEDS: Tigecycline 50 MG in Dextrose 5% In Water 100 ML IVPB SCH ×2 (00:44→12:34)
[2017-05-17] MEDS: Acetaminophen-Codeine 300/30 mg Tab PO PRN ×2 (03:13→18:47)
[2017-05-17 07:31] LABS: BASO % 0.5 % (0.0-2.0); EOS # 0.1 K/uL (0.0-0.7); EOS % 1.6 % (0.0-4.0); HEMATOCRIT 31.8 % (34.0-47.0); LYMPH # 2.5 K/uL (1.0-4.3); LYMPH % 26.6 % (20.0-40.0); MEAN CELL VOLUME 84.6 fL (81.0-99.0); MEAN CORPUSCULAR HEMOGLOBIN 28.7 pg (27.0-31.0); MEAN CORPUSCULAR HGB CONC 33.9 g/dL (33.0-37.0); MEAN PLATELET VOLUME 8.4 fL (7.2-11.7); MONO # 0.9 K/uL (0.0-0.8); MONO % 9.8 % (0.0-10.0); RED CELL DISTRIBUTION WIDTH 15.6 % (11.5-14.5); WHITE BLOOD COUNT 9.2 K/uL (4.8-10.8)
[2017-05-17 07:38] LABS: CHLORIDE 91 mmol/L (98-107); POTASSIUM 4.6 mmol/L (3.6-5.2); SODIUM 124 mmol/L (132-148)
[2017-05-17 07:40] LABS: ALB/GLOB RATIO 0.7 (1.0-2.1); AST/SGOT 51 U/L (14-36); BILIRUBIN,TOTAL 0.6 mg/dL (0.2-1.3); CARBON DIOXIDE 24 mmol/L (22-30); GFR AFRICAN-AMERICAN > 60
[2017-05-17 07:41] LABS: ALKALINE PHOSPHATASE 389 U/L (38-126); ALT/SGPT 67 U/L (9-52); BLOOD UREA NITROGEN 92 mg/dL (7-17); GLUCOSE,RANDOM 191 mg/dL (65-105)
[2017-05-17] MEDS: (Novolin R) Insulin Human Regular 100 units/ml vial SC SCH ×4 (08:18→21:45)
[2017-05-17] MEDS: Fluconazole IV 200mg/100 ml NS 100 ML IVPB SCH (10:52)
[2017-05-17] MEDS: Lactobacillus Acidophilus 500 MU Cap PO SCH (10:52)
[2017-05-17] MEDS: Magnesium Oxide 400 mg Tab UD PO SCH (10:52)
[2017-05-17] MEDS: Multiple Vitamins Tab PO SCH (10:52)
--- NOTE | 2017-05-17 12:48 | CP.PCM.PN ---
Objective - Vital Signs/Intake and Output Vital Signs (last 24 hours): Temp Pulse Resp BP Pulse Ox 97.5 F L 118 H 18 119/71 95 05/17/17 08:27 05/17/17 08:27 05/17/17 08:27 05/17/17 08:27 05/17/17 08:27 Intake and Output: 05/17/17 05/17/17 06:59 18:59 Intake Total 1446 Output Total 1980 Balance -534 - Medications Medications: Current Medications Acetaminophen/Codeine Phosphate (Tylenol/Codeine 300 Mg/30 Mg) 1 ea PO Q6 PRN PRN Reason: Pain, Mild (1-3) Last Admin: 05/17/17 03:13 Dose: 1 ea Ascorbic Acid (Vitamin C 500 Mg Tab) 500 mg PO DAILY [facility] Last Admin: 05/17/17 10:52 Dose: 500 mg Enoxaparin Sodium (Lovenox) 40 mg SC Q12 [facility] Last Admin: 05/07/17 21:41 Dose: 40 mg Fluconazole (Diflucan Iv 200 Mg/100 Ml Ns) 100 mls @ 100 mls/hr IVPB DAILY [facility] Last Admin: 05/17/17 10:52 Dose: 100 mls/hr Tigecycline 50 mg/ Dextrose 100 mls @ 100 mls/hr IVPB Q12H [facility] Last Admin: 05/17/17 12:34 Dose: 100 mls/hr Multivitamins/Vitamin C 10 ml/Chromium/Copper/Manganese/Zinc 1 ml/ Amino Acids 1,011 mls @ 42 mls/hr IV .Q24H [facility] Stop: 05/17/17 17:59 Last Admin: 05/16/17 17:42 Dose: 42 mls/hr Fat Emulsion Intravenous (Intralipid 20%) 250 mls @ 42 mls/hr IV TTS@1800 [facility] Stop: 05/22/17 18:01 Last Admin: 05/16/17 17:42 Dose: 42 mls/hr Multivitamins/Vitamin C 10 ml/Chromium/Copper/Manganese/Zinc 1 ml/ Amino Acids 1,011 mls @ 42 mls/hr IV .Q24H [facility] Stop: 05/18/17 17:59 Insulin Human Regular (Novolin R) 0 unit SC ACHS [facility] PRN Reason: Protocol Last Admin: 05/17/17 12:34 Dose: Not Given Lactobacillus Acidophilus (Bacid Acidophilus) 1 cap PO DAILY [facility] Last Admin: 05/17/17 10:52 Dose: 1 cap Loperamide HCl (Imodium) 2 mg PO QID PRN PRN Reason: Diarrhea Last Admin: 05/01/17 22:58 Dose: 2 mg Magnesium Oxide (Mag-Ox) 400 mg PO DAILY [facility] Last Admin: 05/17/17 10:52 Dose: 400 mg Metoclopramide HCl (Reglan) 10 mg IVP ACHS [facility] Last Admin: 05/17/17 12:30 Dose: 10 mg Multivitamins (Hexavitamin) 1 tab PO DAILY [facility] Last Admin: 05/17/17 10:52 Dose: 1 tab Petrolatum (Desitin Original) 0 gm TOP TID PRN PRN Reason: Rash Tramadol HCl (Ultram) 25 mg PO TID PRN PRN Reason: Pain, Mild (1-3) Zinc Sulfate (Zinc Sulfate 220 Mg Cap) 220 mg PO DAILY [facility] Last Admin: 05/17/17 10:52 Dose: 220 mg - Labs Labs: 05/17/17 07:02 05/17/17 07:02 PT 11.9 SECONDS (9.7-12.2) 04/13/17 06:28 INR 1.1 04/13/17 06:28 APTT 27 SECONDS (21-34) 04/13/17 06:28
[2017-05-17] MEDS ORDERED: Meropenem 500 MG in Sodium Chloride 0.9% 100 ML IVPB SCH (14:00)
[2017-05-17] MEDS: Meropenem 500 MG in Dextrose 5% In Water 100 ML IVPB SCH ×2 (14:08→22:28)
--- NOTE | 2017-05-17 15:51 | CP.PCM.PN ---
<Vikki Sims - Last Filed: 05/17/17 15:57> Subjective - Date & Time of Evaluation Date of Evaluation: 05/17/17 Time of Evaluation: 10:00 - Subjective Subjective: GENERAL SURGERY PROGRESS NOTE FOR DR. AUSTIN Patient seen and examined at bedside. Wound vac in place on suction, no leak. No leak from ileostomy bag. Patient reports that she is still itchy. She is eating some and tolerating her diet. Patient states that she wants to go home. Objective - Vital Signs/Intake and Output Vital Signs (last 24 hours): Temp Pulse Resp BP Pulse Ox 97.5 F L 118 H 18 119/71 95 05/17/17 08:27 05/17/17 08:27 05/17/17 08:27 05/17/17 08:27 05/17/17 08:27 Intake and Output: 05/17/17 05/17/17 06:59 18:59 Intake Total 1446 Output Total 1980 Balance -534 - Medications Medications: Current Medications Acetaminophen/Codeine Phosphate (Tylenol/Codeine 300 Mg/30 Mg) 1 ea PO Q6 PRN PRN Reason: Pain, Mild (1-3) Last Admin: 05/17/17 03:13 Dose: 1 ea Ascorbic Acid (Vitamin C 500 Mg Tab) 500 mg PO DAILY [facility] Last Admin: 05/17/17 10:52 Dose: 500 mg Enoxaparin Sodium (Lovenox) 40 mg SC Q12 [facility] Last Admin: 05/07/17 21:41 Dose: 40 mg Fluconazole (Diflucan Iv 200 Mg/100 Ml Ns) 100 mls @ 100 mls/hr IVPB DAILY [facility] Last Admin: 05/17/17 10:52 Dose: 100 mls/hr Multivitamins/Vitamin C 10 ml/Chromium/Copper/Manganese/Zinc 1 ml/ Amino Acids 1,011 mls @ 42 mls/hr IV .Q24H [facility] Stop: 05/17/17 17:59 Last Admin: 05/16/17 17:42 Dose: 42 mls/hr Fat Emulsion Intravenous (Intralipid 20%) 250 mls @ 42 mls/hr IV TTS@1800 [facility] Stop: 05/22/17 18:01 Last Admin: 05/16/17 17:42 Dose: 42 mls/hr Multivitamins/Vitamin C 10 ml/Chromium/Copper/Manganese/Zinc 1 ml/ Amino Acids 1,011 mls @ 42 mls/hr IV .Q24H [facility] Stop: 05/18/17 17:59 Linezolid (Zyvox 600mg/300ml D5w) 600 mg in 300 mls @ 200 mls/hr IVPB Q12 [facility] Meropenem 500 mg/ Dextrose 100 mls @ 100 mls/hr IVPB Q8 [facility] Last Admin: 05/17/17 14:08 Dose: 100 mls/hr Insulin Human Regular (Novolin R) 0 unit SC ACHS [facility] PRN Reason: Protocol Last Admin: 05/17/17 12:34 Dose: Not Given Lactobacillus Acidophilus (Bacid Acidophilus) 1 cap PO DAILY [facility] Last Admin: 05/17/17 10:52 Dose: 1 cap Loperamide HCl (Imodium) 2 mg PO QID PRN PRN Reason: Diarrhea Last Admin: 05/01/17 22:58 Dose: 2 mg Magnesium Oxide (Mag-Ox) 400 mg PO DAILY [facility] Last Admin: 05/17/17 10:52 Dose: 400 mg Multivitamins (Hexavitamin) 1 tab PO DAILY [facility] Last Admin: 05/17/17 10:52 Dose: 1 tab Ondansetron HCl (Zofran Tab) 4 mg PO Q8H PRN PRN Reason: Nausea/Vomiting Petrolatum (Desitin Original) 0 gm TOP TID PRN PRN Reason: Rash Tramadol HCl (Ultram) 25 mg PO TID PRN PRN Reason: Pain, Mild (1-3) Zinc Sulfate (Zinc Sulfate 220 Mg Cap) 220 mg PO DAILY [facility] Last Admin: 05/17/17 10:52 Dose: 220 mg - Labs Labs: 05/17/17 07:02 05/17/17 07:02 PT 11.9 SECONDS (9.7-12.2) 04/13/17 06:28 INR 1.1 04/13/17 06:28 APTT 27 SECONDS (21-34) 04/13/17 06:28 - Constitutional Appears: No Acute Distress, Cachectic, Chronically Ill - Respiratory Exam Respiratory Exam: NORMAL BREATHING PATTERN. absent: Respiratory Distress - Cardiovascular Exam Cardiovascular Exam: Tachycardia, +S1, +S2 - GI/Abdominal Exam GI & Abdominal Exam: Soft. absent: Distended, Firm, Guarding, Rigid, Tenderness , Rebound Additional comments: Ileostomy functioning properly with semiliquid stool, no leak Wound vac on 125mmHg suction, no leak - Back Exam Additional comments: Right nephrostomy tube - Neurological Exam Neurological Exam: Alert, Awake Assessment and Plan - Assessment and Plan (Free Text) Assessment: 61yo F s/p Ex lap, small bowel resection, bladder repair, appendectomy, ileostomy POD#35 - Wound vac changed 2 days ago, Continue to suction - Renal US showed mild hydronephrosis of both kidneys - Discussed case with Dr. Trinidad. Hydronephrosis not enough for nephrostomy tube placement. - Dr. Austin will discuss case with Dr. Fernandez regarding need for nephrostomy tube since it has been 9 days since pt pulled out left nephrostomy tube and kidney appears to be draining properly. - Ureterogram, Cystogram and nephrostogram via right nephrostomy tube to determine if Mckeon able to be removed - Due to patient's pruritis, case was discussed with Dr. Cutler. Tigecycline was discontinued and Merrem and Linezolid were added - Will check albumin tomorrow to determine if PPN can be discontinued - DC planning - Discussed plan with Dr. Misha Sims PGY-3 <Sumeet Austin - Last Filed: 05/20/17 19:47> Objective - Vital Signs/Intake and Output Vital Signs (last 24 hours): Temp Pulse Resp BP Pulse Ox 97.5 F L 117 H 20 89/53 L 100 05/20/17 15:00 05/20/17 15:00 05/20/17 15:00 05/20/17 15:00 05/20/17 15:00 - Medications Medications: Current Medications Acetaminophen/Codeine Phosphate (Tylenol/Codeine 300 Mg/30 Mg) 1 ea PO Q6 [facility] Last Admin: 05/20/17 19:00 Dose: 1 ea Ascorbic Acid (Vitamin C 500 Mg Tab) 500 mg PO DAILY [facility] Last Admin: 05/20/17 09:47 Dose: 500 mg Enoxaparin Sodium (Lovenox) 40 mg SC Q12 [facility] Last Admin: 05/07/17 21:41 Dose: 40 mg Fluconazole (Diflucan Iv 200 Mg/100 Ml Ns) 100 mls @ 100 mls/hr IVPB DAILY [facility] Last Admin: 05/20/17 09:48 Dose: 100 mls/hr Linezolid (Zyvox 600mg/300ml D5w) 600 mg in 300 mls @ 200 mls/hr IVPB Q12 [facility] Last Admin: 05/20/17 09:54 Dose: 200 mls/hr Meropenem 500 mg/ Dextrose 100 mls @ 100 mls/hr IVPB Q8 [facility] Last Admin: 05/20/17 13:33 Dose: 100 mls/hr Chromium/Copper/Manganese/Zinc 1 ml/ Multivitamins/Vitamin C 10 ml/ Amino Acids 1,011 mls @ 42 mls/hr IV .Q24H [facility] Stop: 05/21/17 17:59 Last Admin: 05/20/17 19:00 Dose: 42 mls/hr Fat Emulsion Intravenous (Intralipid 20%) 250 mls @ 42 mls/hr IV TTS@1800 [facility] Stop: 05/22/17 18:01 Last Admin: 05/20/17 19:00 Dose: 42 mls/hr Insulin Human Regular (Novolin R) 0 unit SC ACHS [facility] PRN Reason: Protocol Last Admin: 05/20/17 19:02 Dose: 2 unit Lactobacillus Acidophilus (Bacid Acidophilus) 1 cap PO DAILY [facility] Last Admin: 05/20/17 09:48 Dose: 1 cap Loperamide HCl (Imodium) 2 mg PO QID PRN PRN Reason: Diarrhea Last Admin: 05/01/17 22:58 Dose: 2 mg Magnesium Oxide (Mag-Ox) 400 mg PO DAILY [facility] Last Admin: 05/20/17 09:48 Dose: 400 mg Multivitamins (Hexavitamin) 1 tab PO DAILY [facility] Last Admin: 05/20/17 09:48 Dose: 1 tab Ondansetron HCl (Zofran Tab) 4 mg PO Q8H PRN PRN Reason: Nausea/Vomiting Petrolatum (Desitin Original) 0 gm TOP TID PRN PRN Reason: Rash Last Admin: 05/20/17 06:44 Dose: 1 applic Tramadol HCl (Ultram) 25 mg PO TID PRN PRN Reason: Pain, Mild (1-3) Zinc Sulfate (Zinc Sulfate 220 Mg Cap) 220 mg PO DAILY [facility] Last Admin: 05/20/17 09:48 Dose: 220 mg - Labs Labs: 05/20/17 11:10 05/20/17 11:10 PT 11.9 SECONDS (9.7-12.2) 04/13/17 06:28 INR 1.1 04/13/17 06:28 APTT 27 SECONDS (21-34) 04/13/17 06:28 Attending/Attestation - Attestation I have personally seen and examined this patient.: Yes I have fully participated in the care of the patient.: Yes I have reviewed all pertinent clinical information, including history, physical exam and plan: Yes Notes (Text): Pt was seen and examined at bedside Agree with above note and assessment Pt is improving clinically OOB to walk DVT prophylaxis C/W IV antibiotics Plan d.w pt in detail.
--- NOTE | 2017-05-17 16:15 | CP.PCM.PN ---
Subjective - Date & Time of Evaluation Date of Evaluation: 05/17/17 Time of Evaluation: 07:00 - Subjective Subjective: developed rash ? Tygacil allergy start zyvox/merrem Objective - Vital Signs/Intake and Output Vital Signs (last 24 hours): Temp Pulse Resp BP Pulse Ox 97.5 F L 118 H 18 119/71 95 05/17/17 08:27 05/17/17 08:27 05/17/17 08:27 05/17/17 08:27 05/17/17 08:27 Intake and Output: 05/17/17 05/17/17 06:59 18:59 Intake Total 1446 452 Output Total 1980 950 Balance -536 -813 - Medications Medications: Current Medications Acetaminophen/Codeine Phosphate (Tylenol/Codeine 300 Mg/30 Mg) 1 ea PO Q6 PRN PRN Reason: Pain, Mild (1-3) Last Admin: 05/17/17 03:13 Dose: 1 ea Ascorbic Acid (Vitamin C 500 Mg Tab) 500 mg PO DAILY [facility] Last Admin: 05/17/17 10:52 Dose: 500 mg Enoxaparin Sodium (Lovenox) 40 mg SC Q12 [facility] Last Admin: 05/07/17 21:41 Dose: 40 mg Fluconazole (Diflucan Iv 200 Mg/100 Ml Ns) 100 mls @ 100 mls/hr IVPB DAILY [facility] Last Admin: 05/17/17 10:52 Dose: 100 mls/hr Multivitamins/Vitamin C 10 ml/Chromium/Copper/Manganese/Zinc 1 ml/ Amino Acids 1,011 mls @ 42 mls/hr IV .Q24H [facility] Stop: 05/17/17 17:59 Last Admin: 05/16/17 17:42 Dose: 42 mls/hr Fat Emulsion Intravenous (Intralipid 20%) 250 mls @ 42 mls/hr IV TTS@1800 [facility] Stop: 05/22/17 18:01 Last Admin: 05/16/17 17:42 Dose: 42 mls/hr Multivitamins/Vitamin C 10 ml/Chromium/Copper/Manganese/Zinc 1 ml/ Amino Acids 1,011 mls @ 42 mls/hr IV .Q24H [facility] Stop: 05/18/17 17:59 Linezolid (Zyvox 600mg/300ml D5w) 600 mg in 300 mls @ 200 mls/hr IVPB Q12 [facility] Meropenem 500 mg/ Dextrose 100 mls @ 100 mls/hr IVPB Q8 [facility] Last Admin: 05/17/17 14:08 Dose: 100 mls/hr Insulin Human Regular (Novolin R) 0 unit SC ACHS [facility] PRN Reason: Protocol Last Admin: 05/17/17 12:34 Dose: Not Given Lactobacillus Acidophilus (Bacid Acidophilus) 1 cap PO DAILY [facility] Last Admin: 05/17/17 10:52 Dose: 1 cap Loperamide HCl (Imodium) 2 mg PO QID PRN PRN Reason: Diarrhea Last Admin: 05/01/17 22:58 Dose: 2 mg Magnesium Oxide (Mag-Ox) 400 mg PO DAILY [facility] Last Admin: 05/17/17 10:52 Dose: 400 mg Multivitamins (Hexavitamin) 1 tab PO DAILY [facility] Last Admin: 05/17/17 10:52 Dose: 1 tab Ondansetron HCl (Zofran Tab) 4 mg PO Q8H PRN PRN Reason: Nausea/Vomiting Petrolatum (Desitin Original) 0 gm TOP TID PRN PRN Reason: Rash Tramadol HCl (Ultram) 25 mg PO TID PRN PRN Reason: Pain, Mild (1-3) Zinc Sulfate (Zinc Sulfate 220 Mg Cap) 220 mg PO DAILY [facility] Last Admin: 05/17/17 10:52 Dose: 220 mg - Labs Labs: 05/17/17 07:02 05/17/17 07:02 PT 11.9 SECONDS (9.7-12.2) 04/13/17 06:28 INR 1.1 04/13/17 06:28 APTT 27 SECONDS (21-34) 04/13/17 06:28 - Constitutional Appears: Non-toxic, Cachectic, Chronically Ill - Head Exam Head Exam: NORMOCEPHALIC - Eye Exam Eye Exam: PERRL. 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
[2017-05-17] MEDS ORDERED: PPN#2 IV SCH (18:00)
--- NOTE | 2017-05-17 20:09 | CP.PCM.PN ---
Subjective - Date & Time of Evaluation Date of Evaluation: 05/17/17 Time of Evaluation: 09:40 - Subjective Subjective: clinically same Objective - Vital Signs/Intake and Output Vital Signs (last 24 hours): Temp Pulse Resp BP Pulse Ox 98.1 F 114 H 18 118/74 100 05/17/17 15:05 05/17/17 15:05 05/17/17 15:05 05/17/17 15:05 05/17/17 15:05 Intake and Output: 05/17/17 05/18/17 18:59 06:59 Intake Total 452 Output Total 950 Balance -498 - Medications Medications: Current Medications Acetaminophen/Codeine Phosphate (Tylenol/Codeine 300 Mg/30 Mg) 1 ea PO Q6 PRN PRN Reason: Pain, Mild (1-3) Last Admin: 05/17/17 18:47 Dose: 1 ea Ascorbic Acid (Vitamin C 500 Mg Tab) 500 mg PO DAILY [facility] Last Admin: 05/17/17 10:52 Dose: 500 mg Enoxaparin Sodium (Lovenox) 40 mg SC Q12 [facility] Last Admin: 05/07/17 21:41 Dose: 40 mg Fluconazole (Diflucan Iv 200 Mg/100 Ml Ns) 100 mls @ 100 mls/hr IVPB DAILY [facility] Last Admin: 05/17/17 10:52 Dose: 100 mls/hr Fat Emulsion Intravenous (Intralipid 20%) 250 mls @ 42 mls/hr IV TTS@1800 [facility] Stop: 05/22/17 18:01 Last Admin: 05/16/17 17:42 Dose: 42 mls/hr Multivitamins/Vitamin C 10 ml/Chromium/Copper/Manganese/Zinc 1 ml/ Amino Acids 1,011 mls @ 42 mls/hr IV .Q24H [facility] Stop: 05/18/17 17:59 Last Admin: 05/17/17 18:30 Dose: 42 mls/hr Linezolid (Zyvox 600mg/300ml D5w) 600 mg in 300 mls @ 200 mls/hr IVPB Q12 [facility] Meropenem 500 mg/ Dextrose 100 mls @ 100 mls/hr IVPB Q8 [facility] Last Admin: 05/17/17 14:08 Dose: 100 mls/hr Insulin Human Regular (Novolin R) 0 unit SC ACHS [facility] PRN Reason: Protocol Last Admin: 05/17/17 18:16 Dose: 4 unit Lactobacillus Acidophilus (Bacid Acidophilus) 1 cap PO DAILY [facility] Last Admin: 05/17/17 10:52 Dose: 1 cap Loperamide HCl (Imodium) 2 mg PO QID PRN PRN Reason: Diarrhea Last Admin: 05/01/17 22:58 Dose: 2 mg Magnesium Oxide (Mag-Ox) 400 mg PO DAILY [facility] Last Admin: 05/17/17 10:52 Dose: 400 mg Multivitamins (Hexavitamin) 1 tab PO DAILY [facility] Last Admin: 05/17/17 10:52 Dose: 1 tab Ondansetron HCl (Zofran Tab) 4 mg PO Q8H PRN PRN Reason: Nausea/Vomiting Petrolatum (Desitin Original) 0 gm TOP TID PRN PRN Reason: Rash Tramadol HCl (Ultram) 25 mg PO TID PRN PRN Reason: Pain, Mild (1-3) Zinc Sulfate (Zinc Sulfate 220 Mg Cap) 220 mg PO DAILY [facility] Last Admin: 05/17/17 10:52 Dose: 220 mg - Labs Labs: 05/17/17 07:02 05/17/17 07:02 PT 11.9 SECONDS (9.7-12.2) 04/13/17 06:28 INR 1.1 04/13/17 06:28 APTT 27 SECONDS (21-34) 04/13/17 06:28 - Constitutional Appears: Well - Head Exam Head Exam: ATRAUMATIC, NORMAL INSPECTION, NORMOCEPHALIC - Eye Exam Eye Exam: EOMI, Normal appearance, PERRL Pupil Exam: NORMAL ACCOMODATION, PERRL - ENT Exam ENT Exam: Mucous Membranes Moist, Normal Exam - Neck Exam Neck Exam: Full ROM, Normal Inspection. absent: Lymphadenopathy - Respiratory Exam Respiratory Exam: Decreased Breath Sounds - Cardiovascular Exam Cardiovascular Exam: REGULAR RHYTHM, +S1, +S2 - GI/Abdominal Exam GI & Abdominal Exam: Soft, Diminished Bowel Sounds - Rectal Exam Rectal Exam: Deferred - Back Exam Back Exam: NORMAL INSPECTION - Neurological Exam Neurological Exam: Alert, Awake, CN II-XII Intact, Normal Gait, Oriented x3 - Psychiatric Exam Psychiatric exam: Normal Affect, Normal Mood - Skin Skin Exam: Dry, Intact, Normal Color, Warm Assessment and Plan (1) Colonic fistula Status: Acute (2) Displacement of Mckeon catheter Status: Acute - Assessment and Plan (Free Text) Plan: Repeat renal ultrasound shows bilateral nephrostomy tubes. Bilateral mild hydronephrosis. Patient examined. Diffuse abdominal pain present. Continue broad-spectrum antibiotic. Continue insulin, other antidiabetic medications, antihypertensive medications and supportive care.
[2017-05-17] MEDS: Linezolid 600 mg in D5W 300 ml 600 MG/300 ML BAG IVPB SCH (22:27)
[2017-05-18] MEDS: Meropenem 500 MG in Dextrose 5% In Water 100 ML IVPB SCH ×3 (06:04→21:23)
[2017-05-18 07:04] LABS: BASO # 0.1 K/uL (0.0-0.2); BASO % 0.8 % (0.0-2.0); EOS # 0.2 K/uL (0.0-0.7); EOS % 3.3 % (0.0-4.0); HEMATOCRIT 32.3 % (34.0-47.0); LYMPH # 2.1 K/uL (1.0-4.3); LYMPH % 31.2 % (20.0-40.0); MEAN CELL VOLUME 84.6 fL (81.0-99.0); MEAN CORPUSCULAR HEMOGLOBIN 28.4 pg (27.0-31.0); MEAN CORPUSCULAR HGB CONC 33.5 g/dL (33.0-37.0); MEAN PLATELET VOLUME 8.5 fL (7.2-11.7); MONO # 0.8 K/uL (0.0-0.8); RED CELL DISTRIBUTION WIDTH 15.2 % (11.5-14.5); WHITE BLOOD COUNT 6.7 K/uL (4.8-10.8)
[2017-05-18 07:28] LABS: CHLORIDE 93 mmol/L (98-107)
[2017-05-18 07:29] LABS: POTASSIUM 4.6 mmol/L (3.6-5.2); SODIUM 125 mmol/L (132-148)
[2017-05-18 07:31] LABS: GFR AFRICAN-AMERICAN > 60
[2017-05-18 07:32] LABS: ALB/GLOB RATIO 0.7 (1.0-2.1); ALKALINE PHOSPHATASE 354 U/L (38-126); ALT/SGPT 57 U/L (9-52); AST/SGOT 41 U/L (14-36); BILIRUBIN,TOTAL 0.8 mg/dL (0.2-1.3); BLOOD UREA NITROGEN 66 mg/dL (7-17); CALCIUM 9.4 mg/dl (8.6-10.4); CARBON DIOXIDE 24 mmol/L (22-30); GLUCOSE,RANDOM 228 mg/dL (65-105); TOTAL PROTEIN 6.8 g/dL (6.3-8.3)
--- NOTE | 2017-05-18 08:11 | CP.PCM.PN ---
<Tod Diaz - Last Filed: 05/19/17 06:19> Subjective - Date & Time of Evaluation Date of Evaluation: 05/18/17 Time of Evaluation: 06:50 - Subjective Subjective: General Surgery Note for Dr. Cabral Patient seen and examined at bedside. Ileostomy site was leakin governight. Nurse along with patient changed wafer and bag. Wound vac in place without leak. She is tolerating her diet. Patient still receiving PPN. Infectious disease switched Tygacil to merrem and linezolid. Objective - Vital Signs/Intake and Output Vital Signs (last 24 hours): Temp Pulse Resp BP Pulse Ox 98.2 F 88 20 100/72 98 05/17/17 23:25 05/17/17 23:25 05/17/17 23:25 05/17/17 23:25 05/17/17 23:25 Intake and Output: 05/18/17 05/18/17 06:59 18:59 Intake Total 1180 Output Total 1920 Balance -740 - Medications Medications: Current Medications Acetaminophen/Codeine Phosphate (Tylenol/Codeine 300 Mg/30 Mg) 1 ea PO Q6 PRN PRN Reason: Pain, Mild (1-3) Last Admin: 05/17/17 18:47 Dose: 1 ea Ascorbic Acid (Vitamin C 500 Mg Tab) 500 mg PO DAILY [facility] Last Admin: 05/17/17 10:52 Dose: 500 mg Enoxaparin Sodium (Lovenox) 40 mg SC Q12 [facility] Last Admin: 05/07/17 21:41 Dose: 40 mg Fluconazole (Diflucan Iv 200 Mg/100 Ml Ns) 100 mls @ 100 mls/hr IVPB DAILY [facility] Last Admin: 05/17/17 10:52 Dose: 100 mls/hr Fat Emulsion Intravenous (Intralipid 20%) 250 mls @ 42 mls/hr IV TTS@1800 [facility] Stop: 05/22/17 18:01 Last Admin: 05/16/17 17:42 Dose: 42 mls/hr Multivitamins/Vitamin C 10 ml/Chromium/Copper/Manganese/Zinc 1 ml/ Amino Acids 1,011 mls @ 42 mls/hr IV .Q24H [facility] Stop: 05/18/17 17:59 Last Admin: 05/17/17 18:30 Dose: 42 mls/hr Linezolid (Zyvox 600mg/300ml D5w) 600 mg in 300 mls @ 200 mls/hr IVPB Q12 [facility] Last Admin: 05/17/17 22:27 Dose: 200 mls/hr Meropenem 500 mg/ Dextrose 100 mls @ 100 mls/hr IVPB Q8 [facility] Last Admin: 05/18/17 06:04 Dose: 100 mls/hr Insulin Human Regular (Novolin R) 0 unit SC ACHS [facility] PRN Reason: Protocol Last Admin: 05/17/17 21:45 Dose: Not Given Lactobacillus Acidophilus (Bacid Acidophilus) 1 cap PO DAILY [facility] Last Admin: 05/17/17 10:52 Dose: 1 cap Loperamide HCl (Imodium) 2 mg PO QID PRN PRN Reason: Diarrhea Last Admin: 05/01/17 22:58 Dose: 2 mg Magnesium Oxide (Mag-Ox) 400 mg PO DAILY [facility] Last Admin: 05/17/17 10:52 Dose: 400 mg Multivitamins (Hexavitamin) 1 tab PO DAILY [facility] Last Admin: 05/17/17 10:52 Dose: 1 tab Ondansetron HCl (Zofran Tab) 4 mg PO Q8H PRN PRN Reason: Nausea/Vomiting Petrolatum (Desitin Original) 0 gm TOP TID PRN PRN Reason: Rash Tramadol HCl (Ultram) 25 mg PO TID PRN PRN Reason: Pain, Mild (1-3) Zinc Sulfate (Zinc Sulfate 220 Mg Cap) 220 mg PO DAILY [facility] Last Admin: 05/17/17 10:52 Dose: 220 mg - Labs Labs: 05/18/17 06:51 05/18/17 06:51 PT 11.9 SECONDS (9.7-12.2) 04/13/17 06:28 INR 1.1 04/13/17 06:28 APTT 27 SECONDS (21-34) 04/13/17 06:28 - Constitutional Appears: No Acute Distress - Head Exam Head Exam: ATRAUMATIC, NORMOCEPHALIC - Eye Exam Eye Exam: Normal appearance - Respiratory Exam Respiratory Exam: NORMAL BREATHING PATTERN - Cardiovascular Exam Cardiovascular Exam: Tachycardia - GI/Abdominal Exam GI & Abdominal Exam: Soft. absent: Tenderness Additional comments: Ileostomy functioning properly with soft brown stool ouput Wound vac on 125mmHg suction, no leak - Exam Additional comments: gonzalez in place with 670 cc of output overnight 24/hrs - Back Exam Additional comments: Right nephrostomy tube - Neurological Exam Neurological Exam: Alert, Awake - Psychiatric Exam Psychiatric exam: Normal Affect, Normal Mood - Skin Skin Exam: Dry, Normal Color, Warm Assessment and Plan - Assessment and Plan (Free Text) Plan: 61 F s/p Ex lap, small bowel resection, bladder repair, appendectomy, ileostomy POD#36 -Wound vac to suction -Ureterogram, Cystogram and nephrostogram to determine if Gonzalez able to be removed -PPN -Case management consult for dischagre planning -Discussed plan with Dr. Misha Diaz PGY1 <Sumeet Cabral - Last Filed: 05/20/17 19:53> Objective - Vital Signs/Intake and Output Vital Signs (last 24 hours): Temp Pulse Resp BP Pulse Ox 97.5 F L 117 H 20 89/53 L 100 05/20/17 15:00 05/20/17 15:00 05/20/17 15:00 05/20/17 15:00 05/20/17 15:00 - Medications Medications: Current Medications Acetaminophen/Codeine Phosphate (Tylenol/Codeine 300 Mg/30 Mg) 1 ea PO Q6 [facility] Last Admin: 05/20/17 19:00 Dose: 1 ea Ascorbic Acid (Vitamin C 500 Mg Tab) 500 mg PO DAILY [facility] Last Admin: 05/20/17 09:47 Dose: 500 mg Enoxaparin Sodium (Lovenox) 40 mg SC Q12 [facility] Last Admin: 05/07/17 21:41 Dose: 40 mg Fluconazole (Diflucan Iv 200 Mg/100 Ml Ns) 100 mls @ 100 mls/hr IVPB DAILY [facility] Last Admin: 05/20/17 09:48 Dose: 100 mls/hr Linezolid (Zyvox 600mg/300ml D5w) 600 mg in 300 mls @ 200 mls/hr IVPB Q12 [facility] Last Admin: 05/20/17 09:54 Dose: 200 mls/hr Meropenem 500 mg/ Dextrose 100 mls @ 100 mls/hr IVPB Q8 [facility] Last Admin: 05/20/17 13:33 Dose: 100 mls/hr Chromium/Copper/Manganese/Zinc 1 ml/ Multivitamins/Vitamin C 10 ml/ Amino Acids 1,011 mls @ 42 mls/hr IV .Q24H [facility] Stop: 05/21/17 17:59 Last Admin: 05/20/17 19:00 Dose: 42 mls/hr Fat Emulsion Intravenous (Intralipid 20%) 250 mls @ 42 mls/hr IV TTS@1800 [facility] Stop: 05/22/17 18:01 Last Admin: 05/20/17 19:00 Dose: 42 mls/hr Insulin Human Regular (Novolin R) 0 unit SC ACHS [facility] PRN Reason: Protocol Last Admin: 05/20/17 19:02 Dose: 2 unit Lactobacillus Acidophilus (Bacid Acidophilus) 1 cap PO DAILY [facility] Last Admin: 05/20/17 09:48 Dose: 1 cap Loperamide HCl (Imodium) 2 mg PO QID PRN PRN Reason: Diarrhea Last Admin: 05/01/17 22:58 Dose: 2 mg Magnesium Oxide (Mag-Ox) 400 mg PO DAILY [facility] Last Admin: 05/20/17 09:48 Dose: 400 mg Multivitamins (Hexavitamin) 1 tab PO DAILY [facility] Last Admin: 05/20/17 09:48 Dose: 1 tab Ondansetron HCl (Zofran Tab) 4 mg PO Q8H PRN PRN Reason: Nausea/Vomiting Petrolatum (Desitin Original) 0 gm TOP TID PRN PRN Reason: Rash Last Admin: 05/20/17 06:44 Dose: 1 applic Tramadol HCl (Ultram) 25 mg PO TID PRN PRN Reason: Pain, Mild (1-3) Zinc Sulfate (Zinc Sulfate 220 Mg Cap) 220 mg PO DAILY [facility] Last Admin: 05/20/17 09:48 Dose: 220 mg - Labs Labs: 05/20/17 11:10 05/20/17 11:10 PT 11.9 SECONDS (9.7-12.2) 04/13/17 06:28 INR 1.1 04/13/17 06:28 APTT 27 SECONDS (21-34) 04/13/17 06:28 Attending/Attestation - Attestation I have personally seen and examined this patient.: Yes I have fully participated in the care of the patient.: Yes I have reviewed all pertinent clinical information, including history, physical exam and plan: Yes Notes (Text): Pt was seen and examined at bedside Agree with above note and assessment Reconsult Urology and IR for patency of right ureter C.w current mx Plan d.w pt in detail.
[2017-05-18] MEDS: (Novolin R) Insulin Human Regular 100 units/ml vial SC SCH ×4 (08:50→22:06)
[2017-05-18] MEDS: Multiple Vitamins Tab PO SCH (09:31)
[2017-05-18] MEDS: Magnesium Oxide 400 mg Tab UD PO SCH (09:31)
[2017-05-18] MEDS: Lactobacillus Acidophilus 500 MU Cap PO SCH (09:31)
[2017-05-18] MEDS: Fluconazole IV 200mg/100 ml NS 100 ML IVPB SCH (09:32)
[2017-05-18] MEDS: Linezolid 600 mg in D5W 300 ml 600 MG/300 ML BAG IVPB SCH ×2 (10:55→23:40)
--- NOTE | 2017-05-18 15:22 | CP.PCM.PN ---
Subjective - Date & Time of Evaluation Date of Evaluation: 05/18/17 Time of Evaluation: 09:20 - Subjective Subjective: clinically same Objective - Vital Signs/Intake and Output Vital Signs (last 24 hours): Temp Pulse Resp BP Pulse Ox 97.9 F 115 H 18 99/61 L 96 05/18/17 08:42 05/18/17 08:42 05/18/17 08:42 05/18/17 08:42 05/18/17 08:42 Intake and Output: 05/18/17 05/18/17 06:59 18:59 Intake Total 1180 639 Output Total 1920 800 Balance -740 -161 - Medications Medications: Current Medications Acetaminophen/Codeine Phosphate (Tylenol/Codeine 300 Mg/30 Mg) 1 ea PO Q6 PRN PRN Reason: Pain, Mild (1-3) Last Admin: 05/17/17 18:47 Dose: 1 ea Ascorbic Acid (Vitamin C 500 Mg Tab) 500 mg PO DAILY [facility] Last Admin: 05/18/17 09:31 Dose: 500 mg Enoxaparin Sodium (Lovenox) 40 mg SC Q12 [facility] Last Admin: 05/07/17 21:41 Dose: 40 mg Fluconazole (Diflucan Iv 200 Mg/100 Ml Ns) 100 mls @ 100 mls/hr IVPB DAILY [facility] Last Admin: 05/18/17 09:32 Dose: 100 mls/hr Fat Emulsion Intravenous (Intralipid 20%) 250 mls @ 42 mls/hr IV TTS@1800 [facility] Stop: 05/22/17 18:01 Last Admin: 05/16/17 17:42 Dose: 42 mls/hr Multivitamins/Vitamin C 10 ml/Chromium/Copper/Manganese/Zinc 1 ml/ Amino Acids 1,011 mls @ 42 mls/hr IV .Q24H [facility] Stop: 05/18/17 17:59 Last Admin: 05/17/17 18:30 Dose: 42 mls/hr Linezolid (Zyvox 600mg/300ml D5w) 600 mg in 300 mls @ 200 mls/hr IVPB Q12 [facility] Last Admin: 05/18/17 10:55 Dose: 200 mls/hr Meropenem 500 mg/ Dextrose 100 mls @ 100 mls/hr IVPB Q8 [facility] Last Admin: 05/18/17 14:28 Dose: 100 mls/hr Multivitamins/Vitamin C 10 ml/Chromium/Copper/Manganese/Zinc 1 ml/ Amino Acids 1,011 mls @ 42 mls/hr IV .Q24H [facility] Stop: 05/19/17 17:59 Insulin Human Regular (Novolin R) 0 unit SC ACHS [facility] PRN Reason: Protocol Last Admin: 05/18/17 12:44 Dose: 6 unit Lactobacillus Acidophilus (Bacid Acidophilus) 1 cap PO DAILY [facility] Last Admin: 05/18/17 09:31 Dose: 1 cap Loperamide HCl (Imodium) 2 mg PO QID PRN PRN Reason: Diarrhea Last Admin: 05/01/17 22:58 Dose: 2 mg Magnesium Oxide (Mag-Ox) 400 mg PO DAILY [facility] Last Admin: 05/18/17 09:31 Dose: 400 mg Multivitamins (Hexavitamin) 1 tab PO DAILY [facility] Last Admin: 05/18/17 09:31 Dose: 1 tab Ondansetron HCl (Zofran Tab) 4 mg PO Q8H PRN PRN Reason: Nausea/Vomiting Petrolatum (Desitin Original) 0 gm TOP TID PRN PRN Reason: Rash Tramadol HCl (Ultram) 25 mg PO TID PRN PRN Reason: Pain, Mild (1-3) Zinc Sulfate (Zinc Sulfate 220 Mg Cap) 220 mg PO DAILY [facility] Last Admin: 05/18/17 09:31 Dose: 220 mg - Labs Labs: 05/18/17 06:51 05/18/17 06:51 PT 11.9 SECONDS (9.7-12.2) 04/13/17 06:28 INR 1.1 04/13/17 06:28 APTT 27 SECONDS (21-34) 04/13/17 06:28 - Constitutional Appears: Well - Head Exam Head Exam: ATRAUMATIC, NORMAL INSPECTION, NORMOCEPHALIC - Eye Exam Eye Exam: EOMI, Normal appearance, PERRL Pupil Exam: NORMAL ACCOMODATION, PERRL - ENT Exam ENT Exam: Mucous Membranes Moist, Normal Exam - Neck Exam Neck Exam: Full ROM, Normal Inspection. absent: Lymphadenopathy - Respiratory Exam Respiratory Exam: Decreased Breath Sounds - Cardiovascular Exam Cardiovascular Exam: REGULAR RHYTHM, +S1, +S2 - GI/Abdominal Exam GI & Abdominal Exam: Soft, Diminished Bowel Sounds - Rectal Exam Rectal Exam: Deferred - Exam Exam: Circumcision, NORMAL INSPECTION External exam: NORMAL EXTERNAL EXAM Speculum exam: NORMAL SPECULUM EXAM Bimanual exam: NORMAL BIMANUAL EXAM - Extremities Exam Extremities Exam: Full ROM, Normal Capillary Refill, Normal Inspection. absent : Joint Swelling, Pedal Edema - Neurological Exam Neurological Exam: Alert, Awake, CN II-XII Intact, Normal Gait, Oriented x3 - Psychiatric Exam Psychiatric exam: Normal Affect, Normal Mood - Skin Skin Exam: Dry, Intact, Normal Color, Warm Assessment and Plan (1) Colonic fistula Status: Acute (2) Displacement of Mckeon catheter Status: Acute - Assessment and Plan (Free Text) Plan: Patient examined. Diffuse abdominal pain present. Continue broad-spectrum antibiotic. Continue insulin, other antidiabetic medications, antihypertensive medications and supportive care.
[2017-05-18] MEDS ORDERED: Iodixanol 320 MG/ML 100 ML BOTTLE IV ONE (16:21)
[2017-05-18] MEDS ORDERED: PPN#3 IV SCH (18:00)
[2017-05-18] MEDS: Fat Emulsion 20% IV 250 ML IV SCH (18:36)
--- NOTE | 2017-05-18 18:44 | CT ---
PROCEDURE: CT Abdomen and Pelvis with contrast HISTORY: Delayed IV contrast to evaluate ureters COMPARISON: Abdomen and pelvis CT with contrast 04/24/2017. TECHNIQUE: Contrast dose: Visipaque 320, 100 cc Radiation dose: Total exam DLP = 186.00 mGy-cm. This CT exam was performed using one or more of the following dose reduction techniques: Automated exposure control, adjustment of the mA and/or kV according to patient size, and/or use of iterative reconstruction technique. FINDINGS: LOWER THORAX: Unremarkable. LIVER: Hepatic steatosis is appreciated without focal hepatic mass evident or intrahepatic biliary duct dilatation. GALLBLADDER AND BILE DUCTS: Unremarkable. PANCREAS: Unremarkable. No gross lesion or ductal dilatation. SPLEEN: Unremarkable. ADRENALS: Unremarkable. No mass. KIDNEYS AND URETERS: Right nephrostomy unchanged in position with no right-sided obstructive uropathy evident. Left-sided nephrostomy has been removed. Gas is seen in the pelvis and caliceal system mildly as well as the proximal left ureter. Left renal atrophy again evident. VASCULATURE: Unremarkable. No aortic aneurysm. BOWEL: No bowel obstruction is appreciated postop change again seen in the involving the large and small bowel including right lower quadrant ileostomy. Large small bowel loops appear low collapsed in general the thickening of the large small bowel again appreciated in a variable fashion. The rectal remains prominently thickened but diffusely collapsed. No definite ascites identified although prominent perirectal fat or reaction persists. An anastomotic suture line is seen the left lower quadrant abdomen involving small bowel. APPENDIX: Not identified. PERITONEUM: Unremarkable. No free fluid. No free air. LYMPH NODES: Unremarkable. No enlarged lymph nodes. BLADDER: Partially decompressed by Mckeon catheter once again with some irregular appearing anterior wall. REPRODUCTIVE: Unremarkable. BONES: Grade 1 spondylolisthesis L4-5, degenerative. OTHER FINDINGS: None. IMPRESSION: Complex postop changes are identified predominate at the lower abdomen and upper pelvis with prior left nephrostomy removed and stable right nephrostomy identified this time. No bowel obstruction is appreciate however thickening of the visualized small large bowel loops in the abdomen is not excluded particular, particularly at the level the rectum where there is persistent perirectal reaction appreciated. Mckeon catheter decompresses urinary bladder which appears somewhat irregular anteriorly. Delayed images have been included in separate abdomen pelvis report also performed 05/18/2017. Additional lesser findings as discussed above.
--- NOTE | 2017-05-18 18:50 | CT ---
ABDOMEN AND PELVIS CT DELAYED IMAGES Delayed imaging through the abdomen and pelvis was inadvertently excluded from the initial and pelvis CT series performed on this patient 05/18/2017 with the current images added separately for interpretation. No additional contrast was administered to the patient. At the time of imaging, the urinary bladder is mildly distended with retained excreted iodinated contrast material with Mckeon catheter in position. The ureters are normal in caliber throughout as well as the bilateral pelvocaliceal systems. Gas is identified within the left pelvocaliceal system more so than that at the right. I data contrast material is identified in the right nephrostomy catheter. Impression: As discussed above.
[2017-05-19] MEDS: Meropenem 500 MG in Dextrose 5% In Water 100 ML IVPB SCH ×3 (06:34→21:03)
[2017-05-19] MEDS: Acetaminophen-Codeine 300/30 mg Tab PO PRN (08:28)
[2017-05-19] MEDS: (Novolin R) Insulin Human Regular 100 units/ml vial SC SCH ×4 (08:29→22:00)
[2017-05-19] MEDS: Fluconazole IV 200mg/100 ml NS 100 ML IVPB SCH (10:00)
[2017-05-19] MEDS: Multiple Vitamins Tab PO SCH (11:00)
[2017-05-19] MEDS: Magnesium Oxide 400 mg Tab UD PO SCH (11:00)
[2017-05-19] MEDS: Linezolid 600 mg in D5W 300 ml 600 MG/300 ML BAG IVPB SCH ×2 (11:00→21:04)
[2017-05-19] MEDS: Lactobacillus Acidophilus 500 MU Cap PO SCH (11:00)
--- NOTE | 2017-05-19 11:46 | CP.PCM.PN ---
Addendum entered and electronically signed by Tod Diaz DO 05/19/17 17:10 : Ct abdomen/pelvis with IV contrast and delayed study was completed today. Scan showed the urinary bladder is mildly distended with retained excreted iodinated contrast material with Gonzalez catheter in position. The ureters are normal in caliber throughout as well as the bilateral pelvocaliceal systems. Gas is identified within the left pelvocaliceal system more so than that at the right. Contrast material is identified in the right nephrostomy catheter (see full report). Original Note: <Tod Diaz - Last Filed: 05/19/17 16:36> Subjective - Date & Time of Evaluation Date of Evaluation: 05/19/17 Time of Evaluation: 06:55 - Subjective Subjective: General Surgery Note for Dr. Cabral Patient seen and examined at bedside. Ileostomy site leaking and changed multiple times overnight. She is tolerating her diet and still receiving PPN. Patient frustrated with frequent ileostomy dressing changes. Objective - Vital Signs/Intake and Output Vital Signs (last 24 hours): Temp Pulse Resp BP Pulse Ox 97.7 F 109 H 18 123/66 100 05/19/17 08:56 05/19/17 08:56 05/19/17 08:56 05/19/17 08:56 05/19/17 08:56 Intake and Output: 05/19/17 05/19/17 06:59 18:59 Intake Total 736 Output Total 950 Balance -214 - Medications Medications: Current Medications Acetaminophen/Codeine Phosphate (Tylenol/Codeine 300 Mg/30 Mg) 1 ea PO Q6 PRN PRN Reason: Pain, Mild (1-3) Last Admin: 05/19/17 08:28 Dose: 1 ea Ascorbic Acid (Vitamin C 500 Mg Tab) 500 mg PO DAILY [facility] Last Admin: 05/19/17 11:00 Dose: 500 mg Enoxaparin Sodium (Lovenox) 40 mg SC Q12 [facility] Last Admin: 05/07/17 21:41 Dose: 40 mg Fluconazole (Diflucan Iv 200 Mg/100 Ml Ns) 100 mls @ 100 mls/hr IVPB DAILY [facility] Last Admin: 05/19/17 10:00 Dose: 100 mls/hr Fat Emulsion Intravenous (Intralipid 20%) 250 mls @ 42 mls/hr IV TTS@1800 [facility] Stop: 05/22/17 18:01 Last Admin: 05/18/17 18:36 Dose: 42 mls/hr Linezolid (Zyvox 600mg/300ml D5w) 600 mg in 300 mls @ 200 mls/hr IVPB Q12 [facility] Last Admin: 05/19/17 11:00 Dose: 200 mls/hr Meropenem 500 mg/ Dextrose 100 mls @ 100 mls/hr IVPB Q8 [facility] Last Admin: 05/19/17 06:34 Dose: 100 mls/hr Multivitamins/Vitamin C 10 ml/Chromium/Copper/Manganese/Zinc 1 ml/ Amino Acids 1,011 mls @ 42 mls/hr IV .Q24H [facility] Stop: 05/19/17 17:59 Last Admin: 05/18/17 18:37 Dose: 42 mls/hr Insulin Human Regular (Novolin R) 0 unit SC ACHS [facility] PRN Reason: Protocol Last Admin: 05/19/17 08:29 Dose: 4 unit Lactobacillus Acidophilus (Bacid Acidophilus) 1 cap PO DAILY [facility] Last Admin: 05/19/17 11:00 Dose: 1 cap Loperamide HCl (Imodium) 2 mg PO QID PRN PRN Reason: Diarrhea Last Admin: 05/01/17 22:58 Dose: 2 mg Magnesium Oxide (Mag-Ox) 400 mg PO DAILY [facility] Last Admin: 05/19/17 11:00 Dose: 400 mg Multivitamins (Hexavitamin) 1 tab PO DAILY [facility] Last Admin: 05/19/17 11:00 Dose: 1 tab Ondansetron HCl (Zofran Tab) 4 mg PO Q8H PRN PRN Reason: Nausea/Vomiting Petrolatum (Desitin Original) 0 gm TOP TID PRN PRN Reason: Rash Tramadol HCl (Ultram) 25 mg PO TID PRN PRN Reason: Pain, Mild (1-3) Zinc Sulfate (Zinc Sulfate 220 Mg Cap) 220 mg PO DAILY [facility] Last Admin: 05/19/17 11:00 Dose: 220 mg - Labs Labs: 05/18/17 06:51 05/18/17 06:51 PT 11.9 SECONDS (9.7-12.2) 04/13/17 06:28 INR 1.1 04/13/17 06:28 APTT 27 SECONDS (21-34) 04/13/17 06:28 - Constitutional Appears: No Acute Distress, Cachectic - Head Exam Head Exam: ATRAUMATIC, NORMOCEPHALIC - Eye Exam Eye Exam: EOMI, Normal appearance - ENT Exam ENT Exam: Mucous Membranes Moist - Respiratory Exam Respiratory Exam: NORMAL BREATHING PATTERN - Cardiovascular Exam Cardiovascular Exam: Tachycardia - GI/Abdominal Exam GI & Abdominal Exam: Soft. absent: Tenderness Additional comments: Ileostomy functioning properly with soft stool output - Exam Additional comments: gonzalez in place - Extremities Exam Extremities Exam: Normal Capillary Refill - Back Exam Additional comments: Right nephrostomy tube - Neurological Exam Neurological Exam: Alert, Awake - Psychiatric Exam Psychiatric exam: Normal Affect, Normal Mood - Skin Skin Exam: Dry, Warm Assessment and Plan - Assessment and Plan (Free Text) Plan: 61 F s/p Ex lap, small bowel resection, bladder repair, appendectomy, ileostomy POD#37 -Change ileostomy dressings and reinforce PRN -Delayed Ct abdomen/pelvis with IV contrast to evaluate kidneys and ureters on Monday -PPN -Case management consult for discharge planning -Discussed plan with Dr. Misha Diaz PGY1 <Sumeet Cabral - Last Filed: 05/20/17 19:57> Objective - Vital Signs/Intake and Output Vital Signs (last 24 hours): Temp Pulse Resp BP Pulse Ox 97.5 F L 117 H 20 89/53 L 100 05/20/17 15:00 05/20/17 15:00 05/20/17 15:00 05/20/17 15:00 05/20/17 15:00 - Medications Medications: Current Medications Acetaminophen/Codeine Phosphate (Tylenol/Codeine 300 Mg/30 Mg) 1 ea PO Q6 [facility] Last Admin: 05/20/17 19:00 Dose: 1 ea Ascorbic Acid (Vitamin C 500 Mg Tab) 500 mg PO DAILY [facility] Last Admin: 05/20/17 09:47 Dose: 500 mg Enoxaparin Sodium (Lovenox) 40 mg SC Q12 [facility] Last Admin: 05/07/17 21:41 Dose: 40 mg Fluconazole (Diflucan Iv 200 Mg/100 Ml Ns) 100 mls @ 100 mls/hr IVPB DAILY [facility] Last Admin: 05/20/17 09:48 Dose: 100 mls/hr Linezolid (Zyvox 600mg/300ml D5w) 600 mg in 300 mls @ 200 mls/hr IVPB Q12 [facility] Last Admin: 05/20/17 09:54 Dose: 200 mls/hr Meropenem 500 mg/ Dextrose 100 mls @ 100 mls/hr IVPB Q8 [facility] Last Admin: 05/20/17 13:33 Dose: 100 mls/hr Chromium/Copper/Manganese/Zinc 1 ml/ Multivitamins/Vitamin C 10 ml/ Amino Acids 1,011 mls @ 42 mls/hr IV .Q24H [facility] Stop: 05/21/17 17:59 Last Admin: 05/20/17 19:00 Dose: 42 mls/hr Fat Emulsion Intravenous (Intralipid 20%) 250 mls @ 42 mls/hr IV TTS@1800 [facility] Stop: 05/22/17 18:01 Last Admin: 05/20/17 19:00 Dose: 42 mls/hr Insulin Human Regular (Novolin R) 0 unit SC ACHS [facility] PRN Reason: Protocol Last Admin: 05/20/17 19:02 Dose: 2 unit Lactobacillus Acidophilus (Bacid Acidophilus) 1 cap PO DAILY [facility] Last Admin: 05/20/17 09:48 Dose: 1 cap Loperamide HCl (Imodium) 2 mg PO QID PRN PRN Reason: Diarrhea Last Admin: 05/01/17 22:58 Dose: 2 mg Magnesium Oxide (Mag-Ox) 400 mg PO DAILY [facility] Last Admin: 05/20/17 09:48 Dose: 400 mg Multivitamins (Hexavitamin) 1 tab PO DAILY [facility] Last Admin: 05/20/17 09:48 Dose: 1 tab Ondansetron HCl (Zofran Tab) 4 mg PO Q8H PRN PRN Reason: Nausea/Vomiting Petrolatum (Desitin Original) 0 gm TOP TID PRN PRN Reason: Rash Last Admin: 05/20/17 06:44 Dose: 1 applic Tramadol HCl (Ultram) 25 mg PO TID PRN PRN Reason: Pain, Mild (1-3) Zinc Sulfate (Zinc Sulfate 220 Mg Cap) 220 mg PO DAILY [facility] Last Admin: 05/20/17 09:48 Dose: 220 mg - Labs Labs: 05/20/17 11:10 05/20/17 11:10 PT 11.9 SECONDS (9.7-12.2) 04/13/17 06:28 INR 1.1 04/13/17 06:28 APTT 27 SECONDS (21-34) 04/13/17 06:28 Attending/Attestation - Attestation I have personally seen and examined this patient.: Yes I have fully participated in the care of the patient.: Yes I have reviewed all pertinent clinical information, including history, physical exam and plan: Yes Notes (Text): Pt was seen and examined at bedside Agree with above note and assessment Pt is improving clinically Ileostomy site care due to leak CT scan reviewed. OOB to walk DVT prophylaxis C/W IV antibiotics Plan d.w pt in detail.
--- NOTE | 2017-05-19 17:34 | CP.PCM.PN ---
Subjective - Date & Time of Evaluation Date of Evaluation: 05/19/17 Time of Evaluation: 08:00 - Subjective Subjective: events noted iv rx renewed Objective - Vital Signs/Intake and Output Vital Signs (last 24 hours): Temp Pulse Resp BP Pulse Ox 97.7 F 112 H 18 94/61 L 100 05/19/17 15:10 05/19/17 15:10 05/19/17 15:10 05/19/17 15:10 05/19/17 15:10 Intake and Output: 05/19/17 05/19/17 06:59 18:59 Intake Total 736 639 Output Total 950 750 Balance -214 -111 - Medications Medications: Current Medications Acetaminophen/Codeine Phosphate (Tylenol/Codeine 300 Mg/30 Mg) 1 ea PO Q6 [facility] Ascorbic Acid (Vitamin C 500 Mg Tab) 500 mg PO DAILY [facility] Last Admin: 05/19/17 11:00 Dose: 500 mg Enoxaparin Sodium (Lovenox) 40 mg SC Q12 [facility] Last Admin: 05/07/17 21:41 Dose: 40 mg Fluconazole (Diflucan Iv 200 Mg/100 Ml Ns) 100 mls @ 100 mls/hr IVPB DAILY [facility] Last Admin: 05/19/17 10:00 Dose: 100 mls/hr Fat Emulsion Intravenous (Intralipid 20%) 250 mls @ 42 mls/hr IV TTS@1800 [facility] Stop: 05/22/17 18:01 Last Admin: 05/18/17 18:36 Dose: 42 mls/hr Linezolid (Zyvox 600mg/300ml D5w) 600 mg in 300 mls @ 200 mls/hr IVPB Q12 [facility] Last Admin: 05/19/17 11:00 Dose: 200 mls/hr Meropenem 500 mg/ Dextrose 100 mls @ 100 mls/hr IVPB Q8 [facility] Last Admin: 05/19/17 14:18 Dose: 100 mls/hr Multivitamins/Vitamin C 10 ml/Chromium/Copper/Manganese/Zinc 1 ml/ Amino Acids 1,011 mls @ 42 mls/hr IV .Q24H [facility] Stop: 05/19/17 17:59 Last Admin: 05/18/17 18:37 Dose: 42 mls/hr Multivitamins/Vitamin C 10 ml/Chromium/Copper/Manganese/Zinc 1 ml/ Amino Acids 1,011 mls @ 42 mls/hr IV .Q24H [facility] Stop: 05/20/17 17:59 Insulin Human Regular (Novolin R) 0 unit SC ACHS [facility] PRN Reason: Protocol Last Admin: 05/19/17 12:49 Dose: 4 unit Lactobacillus Acidophilus (Bacid Acidophilus) 1 cap PO DAILY [facility] Last Admin: 05/19/17 11:00 Dose: 1 cap Loperamide HCl (Imodium) 2 mg PO QID PRN PRN Reason: Diarrhea Last Admin: 05/01/17 22:58 Dose: 2 mg Magnesium Oxide (Mag-Ox) 400 mg PO DAILY [facility] Last Admin: 05/19/17 11:00 Dose: 400 mg Multivitamins (Hexavitamin) 1 tab PO DAILY [facility] Last Admin: 05/19/17 11:00 Dose: 1 tab Ondansetron HCl (Zofran Tab) 4 mg PO Q8H PRN PRN Reason: Nausea/Vomiting Petrolatum (Desitin Original) 0 gm TOP TID PRN PRN Reason: Rash Tramadol HCl (Ultram) 25 mg PO TID PRN PRN Reason: Pain, Mild (1-3) Zinc Sulfate (Zinc Sulfate 220 Mg Cap) 220 mg PO DAILY [facility] Last Admin: 05/19/17 11:00 Dose: 220 mg - Labs Labs: 05/18/17 06:51 05/18/17 06:51 PT 11.9 SECONDS (9.7-12.2) 04/13/17 06:28 INR 1.1 04/13/17 06:28 APTT 27 SECONDS (21-34) 04/13/17 06:28 - Constitutional Appears: Non-toxic, Cachectic, Chronically Ill - Head Exam Head Exam: NORMOCEPHALIC - Eye Exam Eye Exam: PERRL - ENT Exam ENT Exam: Mucous Membranes Dry - Neck Exam Neck Exam: absent: Lymphadenopathy - Respiratory Exam Respiratory Exam: Decreased Breath Sounds - Cardiovascular Exam Cardiovascular Exam: REGULAR RHYTHM - GI/Abdominal Exam GI & Abdominal Exam: Distended, Soft - Rectal Exam Rectal Exam: Deferred Assessment and Plan (1) Colonic fistula Status: Acute (2) Displacement of Mckeon catheter Status: Acute
[2017-05-19] MEDS ORDERED: PPN#4 IV SCH (18:00)
[2017-05-19] MEDS: Acetaminophen-Codeine 300/30 mg Tab PO SCH (18:20)
--- NOTE | 2017-05-19 21:33 | CP.PCM.PN ---
Subjective - Date & Time of Evaluation Date of Evaluation: 05/19/17 Time of Evaluation: 21:30 - Subjective Subjective: clinically same. Objective - Vital Signs/Intake and Output Vital Signs (last 24 hours): Temp Pulse Resp BP Pulse Ox 97.7 F 112 H 18 94/61 L 100 05/19/17 15:10 05/19/17 15:10 05/19/17 15:10 05/19/17 15:10 05/19/17 15:10 Intake and Output: 05/19/17 05/20/17 18:59 06:59 Intake Total 639 Output Total 750 Balance -111 - Medications Medications: Current Medications Acetaminophen/Codeine Phosphate (Tylenol/Codeine 300 Mg/30 Mg) 1 ea PO Q6 [facility] Last Admin: 05/19/17 18:20 Dose: 1 ea Ascorbic Acid (Vitamin C 500 Mg Tab) 500 mg PO DAILY [facility] Last Admin: 05/19/17 11:00 Dose: 500 mg Enoxaparin Sodium (Lovenox) 40 mg SC Q12 [facility] Last Admin: 05/07/17 21:41 Dose: 40 mg Fluconazole (Diflucan Iv 200 Mg/100 Ml Ns) 100 mls @ 100 mls/hr IVPB DAILY [facility] Last Admin: 05/19/17 10:00 Dose: 100 mls/hr Fat Emulsion Intravenous (Intralipid 20%) 250 mls @ 42 mls/hr IV TTS@1800 [facility] Stop: 05/22/17 18:01 Last Admin: 05/18/17 18:36 Dose: 42 mls/hr Linezolid (Zyvox 600mg/300ml D5w) 600 mg in 300 mls @ 200 mls/hr IVPB Q12 [facility] Last Admin: 05/19/17 21:04 Dose: 200 mls/hr Meropenem 500 mg/ Dextrose 100 mls @ 100 mls/hr IVPB Q8 [facility] Last Admin: 05/19/17 21:03 Dose: 100 mls/hr Multivitamins/Vitamin C 10 ml/Chromium/Copper/Manganese/Zinc 1 ml/ Amino Acids 1,011 mls @ 42 mls/hr IV .Q24H [facility] Stop: 05/20/17 17:59 Last Admin: 05/19/17 18:17 Dose: 42 mls/hr Insulin Human Regular (Novolin R) 0 unit SC ACHS [facility] PRN Reason: Protocol Last Admin: 05/19/17 18:19 Dose: 4 unit Lactobacillus Acidophilus (Bacid Acidophilus) 1 cap PO DAILY [facility] Last Admin: 05/19/17 11:00 Dose: 1 cap Loperamide HCl (Imodium) 2 mg PO QID PRN PRN Reason: Diarrhea Last Admin: 05/01/17 22:58 Dose: 2 mg Magnesium Oxide (Mag-Ox) 400 mg PO DAILY [facility] Last Admin: 05/19/17 11:00 Dose: 400 mg Multivitamins (Hexavitamin) 1 tab PO DAILY [facility] Last Admin: 05/19/17 11:00 Dose: 1 tab Ondansetron HCl (Zofran Tab) 4 mg PO Q8H PRN PRN Reason: Nausea/Vomiting Petrolatum (Desitin Original) 0 gm TOP TID PRN PRN Reason: Rash Tramadol HCl (Ultram) 25 mg PO TID PRN PRN Reason: Pain, Mild (1-3) Zinc Sulfate (Zinc Sulfate 220 Mg Cap) 220 mg PO DAILY [facility] Last Admin: 05/19/17 11:00 Dose: 220 mg - Labs Labs: 05/18/17 06:51 05/18/17 06:51 PT 11.9 SECONDS (9.7-12.2) 04/13/17 06:28 INR 1.1 04/13/17 06:28 APTT 27 SECONDS (21-34) 04/13/17 06:28 - Constitutional Appears: Well - Head Exam Head Exam: ATRAUMATIC, NORMAL INSPECTION, NORMOCEPHALIC - Eye Exam Eye Exam: EOMI, Normal appearance, PERRL Pupil Exam: NORMAL ACCOMODATION, PERRL - ENT Exam ENT Exam: Mucous Membranes Moist, Normal Exam - Neck Exam Neck Exam: Full ROM, Normal Inspection. absent: Lymphadenopathy - Respiratory Exam Respiratory Exam: Clear to Ausculation Bilateral, NORMAL BREATHING PATTERN - Cardiovascular Exam Cardiovascular Exam: REGULAR RHYTHM, +S1, +S2. absent: Murmur - GI/Abdominal Exam GI & Abdominal Exam: Soft, Normal Bowel Sounds. absent: Tenderness - Rectal Exam Rectal Exam: Deferred Assessment and Plan (1) Colonic fistula Status: Acute (2) Displacement of Mckeon catheter Status: Acute - Assessment and Plan (Free Text) Plan: Patient examined. Patient clinically the same. Continue same treatment.
[2017-05-20] MEDS: Acetaminophen-Codeine 300/30 mg Tab PO SCH ×4 (00:32→19:00)
[2017-05-20] MEDS ORDERED: Sodium Chloride 0.9% 500 ML IV ONE ×2 (04:29→05:14)
[2017-05-20] MEDS: Meropenem 500 MG in Dextrose 5% In Water 100 ML IVPB SCH ×3 (05:17→21:36)
[2017-05-20] MEDS: Zinc Oxide Topical 30 gm Tube TOP PRN (06:44)
--- NOTE | 2017-05-20 07:46 | CP.PCM.PN ---
<Tod Diaz - Last Filed: 05/20/17 18:30> Subjective - Date & Time of Evaluation Date of Evaluation: 05/20/17 Time of Evaluation: 06:15 - Subjective Subjective: General Surgery Note for Dr. Cabral Patient seen and examined at bedside. No acute event overnight. Patient is in a better mood today since ileostomy is not leaking frequently. She is tolerating her diet and still receiving PPN. Objective - Vital Signs/Intake and Output Vital Signs (last 24 hours): Temp Pulse Resp BP Pulse Ox 97.8 F 76 20 98/59 L 96 05/20/17 07:44 05/20/17 07:44 05/20/17 07:44 05/20/17 07:44 05/20/17 07:44 Intake and Output: 05/20/17 05/20/17 06:59 18:59 Intake Total 2338 Output Total 1250 Balance 1088 - Medications Medications: Current Medications Acetaminophen/Codeine Phosphate (Tylenol/Codeine 300 Mg/30 Mg) 1 ea PO Q6 [facility] Last Admin: 05/20/17 05:18 Dose: Not Given Ascorbic Acid (Vitamin C 500 Mg Tab) 500 mg PO DAILY [facility] Last Admin: 05/19/17 11:00 Dose: 500 mg Enoxaparin Sodium (Lovenox) 40 mg SC Q12 [facility] Last Admin: 05/07/17 21:41 Dose: 40 mg Fluconazole (Diflucan Iv 200 Mg/100 Ml Ns) 100 mls @ 100 mls/hr IVPB DAILY [facility] Last Admin: 05/19/17 10:00 Dose: 100 mls/hr Fat Emulsion Intravenous (Intralipid 20%) 250 mls @ 42 mls/hr IV TTS@1800 [facility] Stop: 05/22/17 18:01 Last Admin: 05/18/17 18:36 Dose: 42 mls/hr Linezolid (Zyvox 600mg/300ml D5w) 600 mg in 300 mls @ 200 mls/hr IVPB Q12 [facility] Last Admin: 05/19/17 21:04 Dose: 200 mls/hr Meropenem 500 mg/ Dextrose 100 mls @ 100 mls/hr IVPB Q8 [facility] Last Admin: 05/20/17 05:17 Dose: 100 mls/hr Multivitamins/Vitamin C 10 ml/Chromium/Copper/Manganese/Zinc 1 ml/ Amino Acids 1,011 mls @ 42 mls/hr IV .Q24H [facility] Stop: 05/20/17 17:59 Last Admin: 05/19/17 18:17 Dose: 42 mls/hr Insulin Human Regular (Novolin R) 0 unit SC ACHS [facility] PRN Reason: Protocol Last Admin: 05/19/17 22:00 Dose: Not Given Lactobacillus Acidophilus (Bacid Acidophilus) 1 cap PO DAILY [facility] Last Admin: 05/19/17 11:00 Dose: 1 cap Loperamide HCl (Imodium) 2 mg PO QID PRN PRN Reason: Diarrhea Last Admin: 05/01/17 22:58 Dose: 2 mg Magnesium Oxide (Mag-Ox) 400 mg PO DAILY [facility] Last Admin: 05/19/17 11:00 Dose: 400 mg Multivitamins (Hexavitamin) 1 tab PO DAILY [facility] Last Admin: 05/19/17 11:00 Dose: 1 tab Ondansetron HCl (Zofran Tab) 4 mg PO Q8H PRN PRN Reason: Nausea/Vomiting Petrolatum (Desitin Original) 0 gm TOP TID PRN PRN Reason: Rash Last Admin: 05/20/17 06:44 Dose: 1 applic Tramadol HCl (Ultram) 25 mg PO TID PRN PRN Reason: Pain, Mild (1-3) Zinc Sulfate (Zinc Sulfate 220 Mg Cap) 220 mg PO DAILY [facility] Last Admin: 05/19/17 11:00 Dose: 220 mg - Labs Labs: 05/18/17 06:51 05/18/17 06:51 PT 11.9 SECONDS (9.7-12.2) 04/13/17 06:28 INR 1.1 04/13/17 06:28 APTT 27 SECONDS (21-34) 04/13/17 06:28 - Constitutional Appears: No Acute Distress - Head Exam Head Exam: ATRAUMATIC, NORMOCEPHALIC - Eye Exam Eye Exam: EOMI, Normal appearance Pupil Exam: PERRL - ENT Exam ENT Exam: Mucous Membranes Moist - Neck Exam Neck Exam: Normal Inspection - Respiratory Exam Respiratory Exam: NORMAL BREATHING PATTERN - Cardiovascular Exam Cardiovascular Exam: REGULAR RHYTHM - GI/Abdominal Exam GI & Abdominal Exam: Soft, Normal Bowel Sounds. absent: Firm, Guarding, Tenderness, Rebound Additional comments: ileostomy producing soft stool dressings clean dry and intact - Exam Additional comments: gonzalez in place - Extremities Exam Extremities Exam: Normal Capillary Refill - Back Exam Additional comments: Right nephrostomy tube in place and functioning - Neurological Exam Neurological Exam: Alert, Awake - Psychiatric Exam Psychiatric exam: Normal Affect, Normal Mood - Skin Skin Exam: Dry, Normal Color, Warm Assessment and Plan - Assessment and Plan (Free Text) Plan: 61 F s/p Ex lap, small bowel resection, bladder repair, appendectomy, ileostomy POD#38 -Nephrostomy tube planned for Monday, if so then gonzalez can be removed -Change ileostomy dressings and reinforce PRN -PPN -Case management consult for discharge planning -Discussed plan with Dr. Misha Diaz PGY1 <Sumeet Cabral - Last Filed: 05/20/17 20:03> Objective - Vital Signs/Intake and Output Vital Signs (last 24 hours): Temp Pulse Resp BP Pulse Ox 97.5 F L 117 H 20 89/53 L 100 05/20/17 15:00 05/20/17 15:00 05/20/17 15:00 05/20/17 15:00 05/20/17 15:00 - Medications Medications: Current Medications Acetaminophen/Codeine Phosphate (Tylenol/Codeine 300 Mg/30 Mg) 1 ea PO Q6 [facility] Last Admin: 05/20/17 19:00 Dose: 1 ea Ascorbic Acid (Vitamin C 500 Mg Tab) 500 mg PO DAILY [facility] Last Admin: 05/20/17 09:47 Dose: 500 mg Enoxaparin Sodium (Lovenox) 40 mg SC Q12 [facility] Last Admin: 05/07/17 21:41 Dose: 40 mg Fluconazole (Diflucan Iv 200 Mg/100 Ml Ns) 100 mls @ 100 mls/hr IVPB DAILY [facility] Last Admin: 05/20/17 09:48 Dose: 100 mls/hr Linezolid (Zyvox 600mg/300ml D5w) 600 mg in 300 mls @ 200 mls/hr IVPB Q12 [facility] Last Admin: 05/20/17 09:54 Dose: 200 mls/hr Meropenem 500 mg/ Dextrose 100 mls @ 100 mls/hr IVPB Q8 [facility] Last Admin: 05/20/17 13:33 Dose: 100 mls/hr Chromium/Copper/Manganese/Zinc 1 ml/ Multivitamins/Vitamin C 10 ml/ Amino Acids 1,011 mls @ 42 mls/hr IV .Q24H [facility] Stop: 05/21/17 17:59 Last Admin: 05/20/17 19:00 Dose: 42 mls/hr Fat Emulsion Intravenous (Intralipid 20%) 250 mls @ 42 mls/hr IV TTS@1800 [facility] Stop: 05/22/17 18:01 Last Admin: 05/20/17 19:00 Dose: 42 mls/hr Insulin Human Regular (Novolin R) 0 unit SC ACHS [facility] PRN Reason: Protocol Last Admin: 05/20/17 19:02 Dose: 2 unit Lactobacillus Acidophilus (Bacid Acidophilus) 1 cap PO DAILY [facility] Last Admin: 05/20/17 09:48 Dose: 1 cap Loperamide HCl (Imodium) 2 mg PO QID PRN PRN Reason: Diarrhea Last Admin: 05/01/17 22:58 Dose: 2 mg Magnesium Oxide (Mag-Ox) 400 mg PO DAILY [facility] Last Admin: 05/20/17 09:48 Dose: 400 mg Multivitamins (Hexavitamin) 1 tab PO DAILY [facility] Last Admin: 05/20/17 09:48 Dose: 1 tab Ondansetron HCl (Zofran Tab) 4 mg PO Q8H PRN PRN Reason: Nausea/Vomiting Petrolatum (Desitin Original) 0 gm TOP TID PRN PRN Reason: Rash Last Admin: 05/20/17 06:44 Dose: 1 applic Tramadol HCl (Ultram) 25 mg PO TID PRN PRN Reason: Pain, Mild (1-3) Zinc Sulfate (Zinc Sulfate 220 Mg Cap) 220 mg PO DAILY [facility] Last Admin: 05/20/17 09:48 Dose: 220 mg - Labs Labs: 05/20/17 11:10 05/20/17 11:10 PT 11.9 SECONDS (9.7-12.2) 04/13/17 06:28 INR 1.1 04/13/17 06:28 APTT 27 SECONDS (21-34) 04/13/17 06:28 Attending/Attestation - Attestation I have personally seen and examined this patient.: Yes I have fully participated in the care of the patient.: Yes I have reviewed all pertinent clinical information, including history, physical exam and plan: Yes Notes (Text): Pt was seen and examined at bedside Agree with above note and assessment
[2017-05-20] MEDS: (Novolin R) Insulin Human Regular 100 units/ml vial SC SCH ×4 (08:52→23:00)
[2017-05-20] MEDS: Fluconazole IV 200mg/100 ml NS 100 ML IVPB SCH (09:48)
[2017-05-20] MEDS: Lactobacillus Acidophilus 500 MU Cap PO SCH (09:48)
[2017-05-20] MEDS: Magnesium Oxide 400 mg Tab UD PO SCH (09:48)
[2017-05-20] MEDS: Multiple Vitamins Tab PO SCH (09:48)
[2017-05-20] MEDS: Linezolid 600 mg in D5W 300 ml 600 MG/300 ML BAG IVPB SCH ×2 (09:54→21:35)
[2017-05-20 11:16] LABS: BASO # 0.1 K/uL (0.0-0.2); BASO % 0.7 % (0.0-2.0); EOS # 0.4 K/uL (0.0-0.7); EOS % 4.5 % (0.0-4.0); HEMATOCRIT 30.7 % (34.0-47.0); LYMPH # 2.3 K/uL (1.0-4.3); LYMPH % 26.1 % (20.0-40.0); MEAN CELL VOLUME 85.2 fL (81.0-99.0); MEAN PLATELET VOLUME 8.2 fL (7.2-11.7); MONO # 0.6 K/uL (0.0-0.8); MONO % 6.9 % (0.0-10.0); RED CELL DISTRIBUTION WIDTH 15.4 % (11.5-14.5); WHITE BLOOD COUNT 8.8 K/uL (4.8-10.8)
[2017-05-20 11:39] LABS: CHLORIDE 96 mmol/L (98-107)
[2017-05-20 11:40] LABS: POTASSIUM 4.5 mmol/L (3.6-5.2); SODIUM 127 mmol/L (132-148)
[2017-05-20 11:42] LABS: ALB/GLOB RATIO 0.5 (1.0-2.1); ALKALINE PHOSPHATASE 245 U/L (38-126); ALT/SGPT 57 U/L (9-52); AST/SGOT 32 U/L (14-36); BILIRUBIN,TOTAL 0.4 mg/dL (0.2-1.3); BLOOD UREA NITROGEN 47 mg/dL (7-17); CARBON DIOXIDE 24 mmol/L (22-30); GFR AFRICAN-AMERICAN > 60; TOTAL PROTEIN 7.4 g/dL (6.3-8.3)
[2017-05-20 11:43] LABS: CALCIUM 9.8 mg/dl (8.6-10.4); GLUCOSE,RANDOM 63 mg/dL (65-105)
[2017-05-20] MEDS ORDERED: Fat Emulsion 20% IV 250 ML IV SCH (18:00)
[2017-05-20] MEDS ORDERED: PPN#5 IV ONE (18:00)
--- NOTE | 2017-05-20 18:27 | CP.PCM.PN ---
Subjective - Date & Time of Evaluation Date of Evaluation: 05/20/17 Time of Evaluation: 10:00 - Subjective Subjective: clinically same Objective - Vital Signs/Intake and Output Vital Signs (last 24 hours): Temp Pulse Resp BP Pulse Ox 97.8 F 76 20 98/59 L 96 05/20/17 07:44 05/20/17 07:44 05/20/17 07:44 05/20/17 07:44 05/20/17 07:44 Intake and Output: 05/20/17 05/20/17 06:59 18:59 Intake Total 2338 Output Total 1250 Balance 1088 - Medications Medications: Current Medications Acetaminophen/Codeine Phosphate (Tylenol/Codeine 300 Mg/30 Mg) 1 ea PO Q6 [facility] Last Admin: 05/20/17 11:31 Dose: Not Given Ascorbic Acid (Vitamin C 500 Mg Tab) 500 mg PO DAILY [facility] Last Admin: 05/20/17 09:47 Dose: 500 mg Enoxaparin Sodium (Lovenox) 40 mg SC Q12 [facility] Last Admin: 05/07/17 21:41 Dose: 40 mg Fluconazole (Diflucan Iv 200 Mg/100 Ml Ns) 100 mls @ 100 mls/hr IVPB DAILY [facility] Last Admin: 05/20/17 09:48 Dose: 100 mls/hr Linezolid (Zyvox 600mg/300ml D5w) 600 mg in 300 mls @ 200 mls/hr IVPB Q12 [facility] Last Admin: 05/20/17 09:54 Dose: 200 mls/hr Meropenem 500 mg/ Dextrose 100 mls @ 100 mls/hr IVPB Q8 [facility] Last Admin: 05/20/17 13:33 Dose: 100 mls/hr Chromium/Copper/Manganese/Zinc 1 ml/ Multivitamins/Vitamin C 10 ml/ Amino Acids 1,011 mls @ 42 mls/hr IV .Q24H [facility] Stop: 05/21/17 17:59 Fat Emulsion Intravenous (Intralipid 20%) 250 mls @ 42 mls/hr IV TTS@1800 [facility] Stop: 05/22/17 18:01 Insulin Human Regular (Novolin R) 0 unit SC ACHS [facility] PRN Reason: Protocol Last Admin: 05/20/17 12:48 Dose: 2 unit Lactobacillus Acidophilus (Bacid Acidophilus) 1 cap PO DAILY [facility] Last Admin: 05/20/17 09:48 Dose: 1 cap Loperamide HCl (Imodium) 2 mg PO QID PRN PRN Reason: Diarrhea Last Admin: 05/01/17 22:58 Dose: 2 mg Magnesium Oxide (Mag-Ox) 400 mg PO DAILY [facility] Last Admin: 05/20/17 09:48 Dose: 400 mg Multivitamins (Hexavitamin) 1 tab PO DAILY [facility] Last Admin: 05/20/17 09:48 Dose: 1 tab Ondansetron HCl (Zofran Tab) 4 mg PO Q8H PRN PRN Reason: Nausea/Vomiting Petrolatum (Desitin Original) 0 gm TOP TID PRN PRN Reason: Rash Last Admin: 05/20/17 06:44 Dose: 1 applic Tramadol HCl (Ultram) 25 mg PO TID PRN PRN Reason: Pain, Mild (1-3) Zinc Sulfate (Zinc Sulfate 220 Mg Cap) 220 mg PO DAILY [facility] Last Admin: 05/20/17 09:48 Dose: 220 mg - Labs Labs: 05/20/17 11:10 05/20/17 11:10 PT 11.9 SECONDS (9.7-12.2) 04/13/17 06:28 INR 1.1 04/13/17 06:28 APTT 27 SECONDS (21-34) 04/13/17 06:28 - Constitutional Appears: Well - Head Exam Head Exam: ATRAUMATIC, NORMAL INSPECTION, NORMOCEPHALIC - Eye Exam Eye Exam: EOMI, Normal appearance, PERRL Pupil Exam: NORMAL ACCOMODATION, PERRL - ENT Exam ENT Exam: Mucous Membranes Moist, Normal Exam - Neck Exam Neck Exam: Full ROM, Normal Inspection. absent: Lymphadenopathy - Respiratory Exam Respiratory Exam: Clear to Ausculation Bilateral, NORMAL BREATHING PATTERN - Cardiovascular Exam Cardiovascular Exam: REGULAR RHYTHM, +S1, +S2. absent: Murmur - GI/Abdominal Exam GI & Abdominal Exam: Soft, Normal Bowel Sounds. absent: Tenderness - Rectal Exam Rectal Exam: Deferred Assessment and Plan (1) Colonic fistula Status: Acute (2) Displacement of Mckeon catheter Status: Acute - Assessment and Plan (Free Text) Plan: Patient examined. Patient clinically the same. Continue the same treatment.
[2017-05-21] MEDS: Acetaminophen-Codeine 300/30 mg Tab PO SCH ×4 (00:14→18:59)
[2017-05-21] MEDS: Meropenem 500 MG in Dextrose 5% In Water 100 ML IVPB SCH ×3 (05:42→22:01)
[2017-05-21] MEDS: (Novolin R) Insulin Human Regular 100 units/ml vial SC SCH ×4 (08:23→22:14)
[2017-05-21] MEDS: Fluconazole IV 200mg/100 ml NS 100 ML IVPB SCH (09:22)
[2017-05-21] MEDS: Linezolid 600 mg in D5W 300 ml 600 MG/300 ML BAG IVPB SCH ×2 (09:23→22:01)
[2017-05-21] MEDS: Multiple Vitamins Tab PO SCH (09:24)
[2017-05-21] MEDS: Lactobacillus Acidophilus 500 MU Cap PO SCH (09:24)
[2017-05-21] MEDS: Magnesium Oxide 400 mg Tab UD PO SCH (09:25)
--- NOTE | 2017-05-21 09:49 | CP.PCM.PN ---
Subjective - Date & Time of Evaluation Date of Evaluation: 05/21/17 Time of Evaluation: 06:30 - Subjective Subjective: General Surgery Note for Dr. Cabral Patient seen and examined at bedside. No acute event overnight. Patient is tolerating her diet. PPN is still being given through IV. Ileostomy producing soft brown stool without leaking. Nephrostomy tube and gonzalez functioning. Objective - Vital Signs/Intake and Output Vital Signs (last 24 hours): Temp Pulse Resp BP Pulse Ox 98.3 F 86 20 136/76 96 05/21/17 08:27 05/21/17 08:27 05/21/17 08:27 05/21/17 08:27 05/21/17 08:27 Intake and Output: 05/21/17 05/21/17 06:59 18:59 Intake Total 2080 Output Total 1800 Balance 280 - Medications Medications: Current Medications Acetaminophen/Codeine Phosphate (Tylenol/Codeine 300 Mg/30 Mg) 1 ea PO Q6 [facility] Last Admin: 05/21/17 05:53 Dose: 1 ea Ascorbic Acid (Vitamin C 500 Mg Tab) 500 mg PO DAILY [facility] Last Admin: 05/21/17 09:24 Dose: 500 mg Enoxaparin Sodium (Lovenox) 40 mg SC Q12 [facility] Last Admin: 05/07/17 21:41 Dose: 40 mg Fluconazole (Diflucan Iv 200 Mg/100 Ml Ns) 100 mls @ 100 mls/hr IVPB DAILY [facility] Last Admin: 05/21/17 09:22 Dose: 100 mls/hr Linezolid (Zyvox 600mg/300ml D5w) 600 mg in 300 mls @ 200 mls/hr IVPB Q12 [facility] Last Admin: 05/21/17 09:23 Dose: 200 mls/hr Meropenem 500 mg/ Dextrose 100 mls @ 100 mls/hr IVPB Q8 [facility] Last Admin: 05/21/17 05:42 Dose: 100 mls/hr Chromium/Copper/Manganese/Zinc 1 ml/ Multivitamins/Vitamin C 10 ml/ Amino Acids 1,011 mls @ 42 mls/hr IV .Q24H [facility] Stop: 05/21/17 17:59 Last Admin: 05/20/17 19:00 Dose: 42 mls/hr Fat Emulsion Intravenous (Intralipid 20%) 250 mls @ 42 mls/hr IV TTS@1800 [facility] Stop: 05/22/17 18:01 Last Admin: 05/20/17 19:00 Dose: 42 mls/hr Chromium/Copper/Manganese/Zinc (1 ml/ Amino Acids) 1,001 mls @ 42 mls/hr IV .[id number] [facility] Insulin Human Regular (Novolin R) 0 unit SC ACHS [facility] PRN Reason: Protocol Last Admin: 05/21/17 08:23 Dose: 2 unit Lactobacillus Acidophilus (Bacid Acidophilus) 1 cap PO DAILY [facility] Last Admin: 05/21/17 09:24 Dose: 1 cap Loperamide HCl (Imodium) 2 mg PO QID PRN PRN Reason: Diarrhea Last Admin: 05/01/17 22:58 Dose: 2 mg Magnesium Oxide (Mag-Ox) 400 mg PO DAILY [facility] Last Admin: 05/21/17 09:25 Dose: 400 mg Multivitamins (Hexavitamin) 1 tab PO DAILY [facility] Last Admin: 05/21/17 09:24 Dose: 1 tab Ondansetron HCl (Zofran Tab) 4 mg PO Q8H PRN PRN Reason: Nausea/Vomiting Petrolatum (Desitin Original) 0 gm TOP TID PRN PRN Reason: Rash Last Admin: 05/20/17 06:44 Dose: 1 applic Tramadol HCl (Ultram) 25 mg PO TID PRN PRN Reason: Pain, Mild (1-3) Zinc Sulfate (Zinc Sulfate 220 Mg Cap) 220 mg PO DAILY [facility] Last Admin: 05/21/17 09:26 Dose: 220 mg - Labs Labs: 05/20/17 11:10 05/20/17 11:10 PT 11.9 SECONDS (9.7-12.2) 04/13/17 06:28 INR 1.1 04/13/17 06:28 APTT 27 SECONDS (21-34) 04/13/17 06:28 - Constitutional Appears: No Acute Distress - Head Exam Head Exam: ATRAUMATIC, NORMOCEPHALIC - Eye Exam Eye Exam: Normal appearance - ENT Exam ENT Exam: Mucous Membranes Moist - Respiratory Exam Respiratory Exam: NORMAL BREATHING PATTERN - Cardiovascular Exam Cardiovascular Exam: REGULAR RHYTHM - GI/Abdominal Exam GI & Abdominal Exam: Soft. absent: Tenderness Additional comments: ileostomy producing soft stool dressings clean dry and intact - Exam Additional comments: gonzalez catheter in place and functioning - Back Exam Additional comments: Right nephrostomy tube in place and functioning - Neurological Exam Neurological Exam: Alert, Awake - Psychiatric Exam Psychiatric exam: Normal Affect, Normal Mood - Skin Skin Exam: Dry, Normal Color, Warm Assessment and Plan - Assessment and Plan (Free Text) Plan: 61 F s/p Ex lap, small bowel resection, bladder repair, appendectomy, ileostomy POD#39 -Nephrostomy tube planned for Monday morning -NPO past MN Monday -Change ileostomy dressings and reinforce PRN -PPN -Case management consult for discharge planning -Discussed plan with Dr. Misha Diaz PGY1
--- NOTE | 2017-05-21 13:52 | CP.PCM.PN ---
Subjective - Date & Time of Evaluation Date of Evaluation: 05/21/17 Time of Evaluation: 10:00 - Subjective Subjective: clinically same Objective - Vital Signs/Intake and Output Vital Signs (last 24 hours): Temp Pulse Resp BP Pulse Ox 98.3 F 86 20 136/76 96 05/21/17 08:27 05/21/17 08:27 05/21/17 08:27 05/21/17 08:27 05/21/17 08:27 Intake and Output: 05/21/17 05/21/17 06:59 18:59 Intake Total 2080 Output Total 1800 600 Balance 280 -600 - Medications Medications: Current Medications Acetaminophen/Codeine Phosphate (Tylenol/Codeine 300 Mg/30 Mg) 1 ea PO Q6 [facility] Last Admin: 05/21/17 12:38 Dose: Not Given Ascorbic Acid (Vitamin C 500 Mg Tab) 500 mg PO DAILY [facility] Last Admin: 05/21/17 09:24 Dose: 500 mg Enoxaparin Sodium (Lovenox) 40 mg SC Q12 [facility] Last Admin: 05/07/17 21:41 Dose: 40 mg Fluconazole (Diflucan Iv 200 Mg/100 Ml Ns) 100 mls @ 100 mls/hr IVPB DAILY [facility] Last Admin: 05/21/17 09:22 Dose: 100 mls/hr Linezolid (Zyvox 600mg/300ml D5w) 600 mg in 300 mls @ 200 mls/hr IVPB Q12 [facility] Last Admin: 05/21/17 09:23 Dose: 200 mls/hr Meropenem 500 mg/ Dextrose 100 mls @ 100 mls/hr IVPB Q8 [facility] Last Admin: 05/21/17 05:42 Dose: 100 mls/hr Chromium/Copper/Manganese/Zinc 1 ml/ Multivitamins/Vitamin C 10 ml/ Amino Acids 1,011 mls @ 42 mls/hr IV .Q24H [facility] Stop: 05/21/17 17:59 Last Admin: 05/20/17 19:00 Dose: 42 mls/hr Fat Emulsion Intravenous (Intralipid 20%) 250 mls @ 42 mls/hr IV TTS@1800 [facility] Stop: 05/22/17 18:01 Last Admin: 05/20/17 19:00 Dose: 42 mls/hr Chromium/Copper/Manganese/Zinc (1 ml/ Amino Acids) 1,001 mls @ 42 mls/hr IV .[id number] [facility] Insulin Human Regular (Novolin R) 0 unit SC ACHS [facility] PRN Reason: Protocol Last Admin: 05/21/17 12:37 Dose: Not Given Lactobacillus Acidophilus (Bacid Acidophilus) 1 cap PO DAILY [facility] Last Admin: 05/21/17 09:24 Dose: 1 cap Loperamide HCl (Imodium) 2 mg PO QID PRN PRN Reason: Diarrhea Last Admin: 05/01/17 22:58 Dose: 2 mg Magnesium Oxide (Mag-Ox) 400 mg PO DAILY [facility] Last Admin: 05/21/17 09:25 Dose: 400 mg Multivitamins (Hexavitamin) 1 tab PO DAILY [facility] Last Admin: 05/21/17 09:24 Dose: 1 tab Ondansetron HCl (Zofran Tab) 4 mg PO Q8H PRN PRN Reason: Nausea/Vomiting Petrolatum (Desitin Original) 0 gm TOP TID PRN PRN Reason: Rash Last Admin: 05/20/17 06:44 Dose: 1 applic Tramadol HCl (Ultram) 25 mg PO TID PRN PRN Reason: Pain, Mild (1-3) Zinc Sulfate (Zinc Sulfate 220 Mg Cap) 220 mg PO DAILY [facility] Last Admin: 05/21/17 09:26 Dose: 220 mg - Labs Labs: 05/20/17 11:10 05/20/17 11:10 PT 11.9 SECONDS (9.7-12.2) 04/13/17 06:28 INR 1.1 04/13/17 06:28 APTT 27 SECONDS (21-34) 04/13/17 06:28 - Constitutional Appears: Well - Head Exam Head Exam: ATRAUMATIC, NORMAL INSPECTION, NORMOCEPHALIC - Eye Exam Eye Exam: EOMI, Normal appearance, PERRL Pupil Exam: NORMAL ACCOMODATION, PERRL - ENT Exam ENT Exam: Mucous Membranes Moist, Normal Exam - Neck Exam Neck Exam: Full ROM, Normal Inspection. absent: Lymphadenopathy - Respiratory Exam Respiratory Exam: Decreased Breath Sounds - Cardiovascular Exam Cardiovascular Exam: REGULAR RHYTHM, +S1, +S2 - GI/Abdominal Exam GI & Abdominal Exam: Soft, Diminished Bowel Sounds - Rectal Exam Rectal Exam: Deferred Assessment and Plan (1) Colonic fistula Status: Acute (2) Displacement of Mckeon catheter Status: Acute - Assessment and Plan (Free Text) Plan: Patient examined. Patient clinically better. Continue linezolid, meropenem, fluconazole. Continue supportive treatment.
[2017-05-21] MEDS: PPN # 6 IV SCH (18:59)
[2017-05-22] MEDS: Acetaminophen-Codeine 300/30 mg Tab PO SCH ×4 (00:13→18:32)
[2017-05-22] MEDS: Meropenem 500 MG in Dextrose 5% In Water 100 ML IVPB SCH ×2 (06:10→13:36)
[2017-05-22] MEDS: (Novolin R) Insulin Human Regular 100 units/ml vial SC SCH ×4 (07:14→22:30)
[2017-05-22] MEDS: Magnesium Oxide 400 mg Tab UD PO SCH (09:13)
[2017-05-22] MEDS: Multiple Vitamins Tab PO SCH (09:13)
[2017-05-22] MEDS: Fluconazole IV 200mg/100 ml NS 100 ML IVPB SCH (09:13)
[2017-05-22] MEDS: Linezolid 600 mg in D5W 300 ml 600 MG/300 ML BAG IVPB SCH ×2 (09:14→21:30)
[2017-05-22] MEDS: Lactobacillus Acidophilus 500 MU Cap PO SCH (09:14)
[2017-05-22] MEDS: DiphenhydrAMINE 12.5 mg/5 ml LIQ UD (5 ml) PO SCH ×2 (13:36→18:32)
--- NOTE | 2017-05-22 16:49 | CP.PCM.PN ---
<Vikki Sims - Last Filed: 05/22/17 16:49> Subjective - Date & Time of Evaluation Date of Evaluation: 05/22/17 Time of Evaluation: 07:00 - Subjective Subjective: GENERAL SURGERY PROGRESS NOTE FOR DR. CABRAL Patient seen and examined at bedside. Ileostomy in place with no leak. Patient reports that she is itchy. She is tolerating her diet. Objective - Vital Signs/Intake and Output Vital Signs (last 24 hours): Temp Pulse Resp BP Pulse Ox 97.9 F 112 H 20 101/65 100 05/22/17 08:06 05/22/17 08:06 05/22/17 08:06 05/22/17 08:06 05/22/17 08:06 Intake and Output: 05/22/17 05/22/17 06:59 18:59 Intake Total 1768 Output Total 2050 650 Balance -282 -650 - Medications Medications: Current Medications Acetaminophen/Codeine Phosphate (Tylenol/Codeine 300 Mg/30 Mg) 1 ea PO Q6 [facility] Last Admin: 05/22/17 12:03 Dose: Not Given Ascorbic Acid (Vitamin C 500 Mg Tab) 500 mg PO DAILY [facility] Last Admin: 05/22/17 09:13 Dose: 500 mg Diphenhydramine HCl (Benadryl) 12.5 mg PO TID [facility] Last Admin: 05/22/17 13:36 Dose: 12.5 mg Enoxaparin Sodium (Lovenox) 40 mg SC Q12 [facility] Last Admin: 05/07/17 21:41 Dose: 40 mg Fluconazole (Diflucan Iv 200 Mg/100 Ml Ns) 100 mls @ 100 mls/hr IVPB DAILY [facility] Last Admin: 05/22/17 09:13 Dose: 100 mls/hr Linezolid (Zyvox 600mg/300ml D5w) 600 mg in 300 mls @ 200 mls/hr IVPB Q12 [facility] Last Admin: 05/22/17 09:14 Dose: 200 mls/hr Fat Emulsion Intravenous (Intralipid 20%) 250 mls @ 42 mls/hr IV TTS@1800 [facility] Stop: 05/22/17 18:01 Last Admin: 05/20/17 19:00 Dose: 42 mls/hr Chromium/Copper/Manganese/Zinc (1 ml/ Amino Acids) 1,001 mls @ 42 mls/hr IV .[id number] [facility] Last Admin: 05/21/17 18:59 Dose: 42 mls/hr Meropenem 500 mg/ Sodium (Chloride) 100 mls @ 100 mls/hr IVPB Q8 [facility] Insulin Human Regular (Novolin R) 0 unit SC ACHS [facility] PRN Reason: Protocol Last Admin: 05/22/17 12:22 Dose: 6 unit Lactobacillus Acidophilus (Bacid Acidophilus) 1 cap PO DAILY [facility] Last Admin: 05/22/17 09:14 Dose: 1 cap Loperamide HCl (Imodium) 2 mg PO QID PRN PRN Reason: Diarrhea Last Admin: 05/01/17 22:58 Dose: 2 mg Magnesium Oxide (Mag-Ox) 400 mg PO DAILY [facility] Last Admin: 05/22/17 09:13 Dose: 400 mg Multivitamins (Hexavitamin) 1 tab PO DAILY [facility] Last Admin: 05/22/17 09:13 Dose: 1 tab Ondansetron HCl (Zofran Tab) 4 mg PO Q8H PRN PRN Reason: Nausea/Vomiting Last Admin: 05/22/17 09:13 Dose: 4 mg Petrolatum (Desitin Original) 0 gm TOP TID PRN PRN Reason: Rash Last Admin: 05/20/17 06:44 Dose: 1 applic Tramadol HCl (Ultram) 25 mg PO TID PRN PRN Reason: Pain, Mild (1-3) Zinc Sulfate (Zinc Sulfate 220 Mg Cap) 220 mg PO DAILY [facility] Last Admin: 05/22/17 09:13 Dose: 220 mg - Labs Labs: 05/20/17 11:10 05/20/17 11:10 PT 11.9 SECONDS (9.7-12.2) 04/13/17 06:28 INR 1.1 04/13/17 06:28 APTT 27 SECONDS (21-34) 04/13/17 06:28 - Constitutional Appears: Non-toxic, No Acute Distress, Chronically Ill - Respiratory Exam Respiratory Exam: NORMAL BREATHING PATTERN. absent: Respiratory Distress - Cardiovascular Exam Cardiovascular Exam: Tachycardia, +S1, +S2 - GI/Abdominal Exam GI & Abdominal Exam: Soft. absent: Distended, Firm, Guarding, Rigid, Tenderness , Rebound Additional comments: Ileostomy in place, no leak Dressings clean/dry/intact - Neurological Exam Neurological Exam: Alert, Awake - Psychiatric Exam Psychiatric exam: Normal Affect, Normal Mood - Skin Skin Exam: Dry, Normal Color, Warm Assessment and Plan - Assessment and Plan (Free Text) Assessment: 61yo F s/p Ex lap, small bowel resection, bladder repair, appendectomy, ileostomy POD#40 - TPN discontinued - Will discuss antibiotics with Dr. Cutler - Nephrostomy tube replacement tomorrow by IR - NPO past midnight - Cystogram and nephrostogram via right nephrostomy tube - DC planning - Discussed plan with Dr. Misha Sims PGY-3 <Sumeet Cabral - Last Filed: 05/24/17 19:40> Objective - Vital Signs/Intake and Output Vital Signs (last 24 hours): Temp Pulse Resp BP Pulse Ox 97.3 F L 106 H 20 109/65 100 05/24/17 15:00 05/24/17 15:00 05/24/17 15:00 05/24/17 15:00 05/24/17 15:00 Intake and Output: 05/24/17 05/25/17 18:59 06:59 Output Total 400 Balance -400 - Medications Medications: Current Medications Acetaminophen/Codeine Phosphate (Tylenol/Codeine 300 Mg/30 Mg) 1 ea PO Q6 [facility] Last Admin: 05/24/17 18:26 Dose: 1 ea Ascorbic Acid (Vitamin C 500 Mg Tab) 500 mg PO DAILY [facility] Last Admin: 05/24/17 09:56 Dose: Not Given Diphenhydramine HCl (Benadryl) 25 mg IVP Q8H [facility] Last Admin: 05/24/17 18:28 Dose: 25 mg Enoxaparin Sodium (Lovenox) 40 mg SC Q12 [facility] Last Admin: 05/07/17 21:41 Dose: 40 mg Sodium Chloride (Sodium Chloride 0.9%) 1,000 mls @ 75 mls/hr IV .[id number] [facility] Last Admin: 05/24/17 18:27 Dose: 75 mls/hr Insulin Human Regular (Novolin R) 0 unit SC ACHS [facility] PRN Reason: Protocol Last Admin: 05/24/17 17:15 Dose: 8 unit Lactobacillus Acidophilus (Bacid Acidophilus) 1 cap PO DAILY [facility] Last Admin: 11/15/17 09:55 Dose: Not Given Loperamide HCl (Imodium) 2 mg PO QID PRN PRN Reason: Diarrhea Last Admin: 05/01/17 22:58 Dose: 2 mg Magnesium Oxide (Mag-Ox) 400 mg PO DAILY [facility] Last Admin: 05/24/17 09:56 Dose: Not Given Multivitamins (Hexavitamin) 1 tab PO DAILY [facility] Last Admin: 05/24/17 09:56 Dose: Not Given Ondansetron HCl (Zofran Tab) 4 mg PO Q8H PRN PRN Reason: Nausea/Vomiting Last Admin: 05/22/17 09:13 Dose: 4 mg Petrolatum (Desitin Original) 0 gm TOP TID PRN PRN Reason: Rash Last Admin: 05/20/17 06:44 Dose: 1 applic Tramadol HCl (Ultram) 25 mg PO TID PRN PRN Reason: Pain, Mild (1-3) Last Admin: 05/23/17 17:56 Dose: 25 mg Zinc Sulfate (Zinc Sulfate 220 Mg Cap) 220 mg PO DAILY [facility] Last Admin: 05/24/17 09:56 Dose: Not Given - Labs Labs: 05/23/17 11:57 05/23/17 11:57 PT 11.9 SECONDS (9.7-12.2) 04/13/17 06:28 INR 1.1 04/13/17 06:28 APTT 27 SECONDS (21-34) 04/13/17 06:28 Attending/Attestation - Attestation I have personally seen and examined this patient.: Yes I have fully participated in the care of the patient.: Yes I have reviewed all pertinent clinical information, including history, physical exam and plan: Yes Notes (Text): Pt was seen and examined at bedside Agree with above note and assessment Ileostomy is still leaking Ilestomy care Pruritus is improving C.w current mx Plan d.w pt in detail.
[2017-05-22] MEDS: PPN # 6 IV SCH (17:34)
[2017-05-22] MEDS: Sodium Chloride 0.9% 1,000 ML IV SCH (17:45)
[2017-05-22] MEDS ORDERED: PPN #7 IV ONE (18:00)
--- NOTE | 2017-05-22 19:12 | CP.PCM.PN ---
Subjective - Date & Time of Evaluation Date of Evaluation: 05/22/17 Time of Evaluation: 09:20 - Subjective Subjective: clinically same Objective - Vital Signs/Intake and Output Vital Signs (last 24 hours): Temp Pulse Resp BP Pulse Ox 97.9 F 115 H 20 98/66 L 100 05/22/17 15:05 05/22/17 15:05 05/22/17 15:05 05/22/17 15:05 05/22/17 15:05 Intake and Output: 05/22/17 05/23/17 18:59 06:59 Output Total 650 Balance -650 - Medications Medications: Current Medications Acetaminophen/Codeine Phosphate (Tylenol/Codeine 300 Mg/30 Mg) 1 ea PO Q6 [facility] Last Admin: 05/22/17 18:32 Dose: 1 ea Ascorbic Acid (Vitamin C 500 Mg Tab) 500 mg PO DAILY [facility] Last Admin: 05/22/17 09:13 Dose: 500 mg Diphenhydramine HCl (Benadryl) 12.5 mg PO TID [facility] Last Admin: 05/22/17 18:32 Dose: 12.5 mg Enoxaparin Sodium (Lovenox) 40 mg SC Q12 [facility] Last Admin: 05/07/17 21:41 Dose: 40 mg Fluconazole (Diflucan Iv 200 Mg/100 Ml Ns) 100 mls @ 100 mls/hr IVPB DAILY [facility] Last Admin: 05/22/17 09:13 Dose: 100 mls/hr Linezolid (Zyvox 600mg/300ml D5w) 600 mg in 300 mls @ 200 mls/hr IVPB Q12 [facility] Last Admin: 05/22/17 09:14 Dose: 200 mls/hr Chromium/Copper/Manganese/Zinc (1 ml/ Amino Acids) 1,001 mls @ 42 mls/hr IV .[id number] [facility] Last Admin: 05/22/17 17:34 Dose: Not Given Meropenem 500 mg/ Sodium (Chloride) 100 mls @ 100 mls/hr IVPB Q8 [facility] Sodium Chloride (Sodium Chloride 0.9%) 1,000 mls @ 73 mls/hr IV .[id number] [facility] Last Admin: 05/22/17 17:45 Dose: 73 mls/hr Insulin Human Regular (Novolin R) 0 unit SC ACHS [facility] PRN Reason: Protocol Last Admin: 05/22/17 17:15 Dose: Not Given Lactobacillus Acidophilus (Bacid Acidophilus) 1 cap PO DAILY [facility] Last Admin: 05/22/17 09:14 Dose: 1 cap Loperamide HCl (Imodium) 2 mg PO QID PRN PRN Reason: Diarrhea Last Admin: 05/01/17 22:58 Dose: 2 mg Magnesium Oxide (Mag-Ox) 400 mg PO DAILY [facility] Last Admin: 05/22/17 09:13 Dose: 400 mg Multivitamins (Hexavitamin) 1 tab PO DAILY [facility] Last Admin: 05/22/17 09:13 Dose: 1 tab Ondansetron HCl (Zofran Tab) 4 mg PO Q8H PRN PRN Reason: Nausea/Vomiting Last Admin: 05/22/17 09:13 Dose: 4 mg Petrolatum (Desitin Original) 0 gm TOP TID PRN PRN Reason: Rash Last Admin: 05/20/17 06:44 Dose: 1 applic Tramadol HCl (Ultram) 25 mg PO TID PRN PRN Reason: Pain, Mild (1-3) Zinc Sulfate (Zinc Sulfate 220 Mg Cap) 220 mg PO DAILY [facility] Last Admin: 05/22/17 09:13 Dose: 220 mg - Labs Labs: 05/20/17 11:10 05/20/17 11:10 PT 11.9 SECONDS (9.7-12.2) 04/13/17 06:28 INR 1.1 04/13/17 06:28 APTT 27 SECONDS (21-34) 04/13/17 06:28 - Constitutional Appears: Well - Head Exam Head Exam: ATRAUMATIC, NORMAL INSPECTION, NORMOCEPHALIC - Eye Exam Eye Exam: EOMI, Normal appearance, PERRL Pupil Exam: NORMAL ACCOMODATION, PERRL - ENT Exam ENT Exam: Mucous Membranes Moist, Normal Exam - Neck Exam Neck Exam: Full ROM, Normal Inspection. absent: Lymphadenopathy - Respiratory Exam Respiratory Exam: Decreased Breath Sounds - Cardiovascular Exam Cardiovascular Exam: REGULAR RHYTHM, +S1, +S2 - GI/Abdominal Exam GI & Abdominal Exam: Soft, Diminished Bowel Sounds - Rectal Exam Rectal Exam: Deferred Assessment and Plan (1) Colonic fistula Status: Acute (2) Displacement of Mckeon catheter Status: Acute - Assessment and Plan (Free Text) Plan: Patient examined. Patient clinically better. Continue linezolid and fluconazole, meropenem. Continue supportive treatment.
[2017-05-22] MEDS: Meropenem 500 MG in Sodium Chloride 0.9% 100 ML IVPB SCH (21:29)
[2017-05-22] MEDS: Tramadol 25 mg PO PRN (22:29)
[2017-05-23] MEDS: Acetaminophen-Codeine 300/30 mg Tab PO SCH ×4 (00:52→23:48)
[2017-05-23] MEDS: Meropenem 500 MG in Sodium Chloride 0.9% 100 ML IVPB SCH (05:40)
[2017-05-23] MEDS: Sodium Chloride 0.9% 1,000 ML IV SCH ×2 (06:40→11:29)
[2017-05-23] MEDS: (Novolin R) Insulin Human Regular 100 units/ml vial SC SCH ×4 (07:35→23:48)
--- NOTE | 2017-05-23 08:17 | CP.PCM.PN ---
<Tod Diaz - Last Filed: 05/23/17 14:20> Subjective - Date & Time of Evaluation Date of Evaluation: 05/23/17 Time of Evaluation: 11:00 - Subjective Subjective: General Surgery Note for Dr. Cabral Patient seen and examined at bedside. No acute event overnight. 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 After IV fluid bolus of 250 cc x 2 were given and a smaller pediatric bp cuff was used, her bp normalized to baseline. Patient currently hemodynamically stable. Objective - Vital Signs/Intake and Output Vital Signs (last 24 hours): Temp Pulse Resp BP Pulse Ox 97.5 F L 114 H 20 123/76 95 05/22/17 23:35 05/22/17 23:35 05/22/17 23:35 05/22/17 23:35 05/22/17 23:35 Intake and Output: 05/23/17 05/23/17 06:59 18:59 Intake Total 1909 Output Total 0 Balance -141 - Medications Medications: Current Medications Acetaminophen/Codeine Phosphate (Tylenol/Codeine 300 Mg/30 Mg) 1 ea PO Q6 [facility] Last Admin: 05/23/17 06:00 Dose: Not Given Ascorbic Acid (Vitamin C 500 Mg Tab) 500 mg PO DAILY [facility] Last Admin: 05/22/17 09:13 Dose: 500 mg Diphenhydramine HCl (Benadryl) 12.5 mg PO TID [facility] Last Admin: 05/22/17 18:32 Dose: 12.5 mg Enoxaparin Sodium (Lovenox) 40 mg SC Q12 [facility] Last Admin: 05/07/17 21:41 Dose: 40 mg Fluconazole (Diflucan Iv 200 Mg/100 Ml Ns) 100 mls @ 100 mls/hr IVPB DAILY [facility] Last Admin: 05/22/17 09:13 Dose: 100 mls/hr Linezolid (Zyvox 600mg/300ml D5w) 600 mg in 300 mls @ 200 mls/hr IVPB Q12 [facility] Last Admin: 05/22/17 21:30 Dose: 200 mls/hr Chromium/Copper/Manganese/Zinc (1 ml/ Amino Acids) 1,001 mls @ 42 mls/hr IV .[id number] [facility] Last Admin: 05/22/17 17:34 Dose: Not Given Meropenem 500 mg/ Sodium (Chloride) 100 mls @ 100 mls/hr IVPB Q8 [facility] Last Admin: 05/23/17 05:40 Dose: 100 mls/hr Sodium Chloride (Sodium Chloride 0.9%) 1,000 mls @ 73 mls/hr IV .[id number] [facility] Last Admin: 05/23/17 06:40 Dose: Not Given Insulin Human Regular (Novolin R) 0 unit SC ACHS [facility] PRN Reason: Protocol Last Admin: 05/23/17 07:35 Dose: Not Given Lactobacillus Acidophilus (Bacid Acidophilus) 1 cap PO DAILY [facility] Last Admin: 05/22/17 09:14 Dose: 1 cap Loperamide HCl (Imodium) 2 mg PO QID PRN PRN Reason: Diarrhea Last Admin: 05/01/17 22:58 Dose: 2 mg Magnesium Oxide (Mag-Ox) 400 mg PO DAILY [facility] Last Admin: 05/22/17 09:13 Dose: 400 mg Multivitamins (Hexavitamin) 1 tab PO DAILY [facility] Last Admin: 05/22/17 09:13 Dose: 1 tab Ondansetron HCl (Zofran Tab) 4 mg PO Q8H PRN PRN Reason: Nausea/Vomiting Last Admin: 05/22/17 09:13 Dose: 4 mg Petrolatum (Desitin Original) 0 gm TOP TID PRN PRN Reason: Rash Last Admin: 05/20/17 06:44 Dose: 1 applic Tramadol HCl (Ultram) 25 mg PO TID PRN PRN Reason: Pain, Mild (1-3) Last Admin: 05/22/17 22:29 Dose: 25 mg Zinc Sulfate (Zinc Sulfate 220 Mg Cap) 220 mg PO DAILY [facility] Last Admin: 05/22/17 09:13 Dose: 220 mg - Labs Labs: 05/20/17 11:10 05/20/17 11:10 PT 11.9 SECONDS (9.7-12.2) 04/13/17 06:28 INR 1.1 04/13/17 06:28 APTT 27 SECONDS (21-34) 04/13/17 06:28 - Constitutional Appears: No Acute Distress - Head Exam Head Exam: ATRAUMATIC, NORMOCEPHALIC - Eye Exam Eye Exam: Normal appearance - ENT Exam ENT Exam: Mucous Membranes Dry - Respiratory Exam Respiratory Exam: NORMAL BREATHING PATTERN - Cardiovascular Exam Cardiovascular Exam: Tachycardia - GI/Abdominal Exam GI & Abdominal Exam: Soft. absent: Tenderness Additional comments: Ileostomy in place, no leak Dressings are clean/dry/intact - Extremities Exam Extremities Exam: Normal Capillary Refill. absent: Pedal Edema - Neurological Exam Neurological Exam: Alert, Awake - Psychiatric Exam Psychiatric exam: Normal Affect, Normal Mood - Skin Skin Exam: Dry, Normal Color, Warm Assessment and Plan - Assessment and Plan (Free Text) Plan: 61 F s/p Ex lap, small bowel resection, bladder repair, appendectomy, ileostomy POD#41 - Nephrostomy tube replacement and nephrogram/uretogram/cystogram rescheduled for tomorrow at 8 am - NPO past midnight - Discontinued antibiotics, discussed with Dr. Cutler - Discharge planning - Discussed plan with Dr. Misha Diaz PGY1 <Sumeet Cabral - Last Filed: 05/24/17 19:42> Objective - Vital Signs/Intake and Output Vital Signs (last 24 hours): Temp Pulse Resp BP Pulse Ox 97.3 F L 106 H 20 109/65 100 05/24/17 15:00 05/24/17 15:00 05/24/17 15:00 05/24/17 15:00 05/24/17 15:00 Intake and Output: 05/24/17 05/25/17 18:59 06:59 Output Total 400 Balance -400 - Medications Medications: Current Medications Acetaminophen/Codeine Phosphate (Tylenol/Codeine 300 Mg/30 Mg) 1 ea PO Q6 [facility] Last Admin: 05/24/17 18:26 Dose: 1 ea Ascorbic Acid (Vitamin C 500 Mg Tab) 500 mg PO DAILY [facility] Last Admin: 05/24/17 09:56 Dose: Not Given Diphenhydramine HCl (Benadryl) 25 mg IVP Q8H [facility] Last Admin: 05/24/17 18:28 Dose: 25 mg Enoxaparin Sodium (Lovenox) 40 mg SC Q12 [facility] Last Admin: 05/07/17 21:41 Dose: 40 mg Sodium Chloride (Sodium Chloride 0.9%) 1,000 mls @ 75 mls/hr IV .[id number] [facility] Last Admin: 05/24/17 18:27 Dose: 75 mls/hr Insulin Human Regular (Novolin R) 0 unit SC ACHS [facility] PRN Reason: Protocol Last Admin: 05/24/17 17:15 Dose: 8 unit Lactobacillus Acidophilus (Bacid Acidophilus) 1 cap PO DAILY [facility] Last Admin: 05/24/17 09:55 Dose: Not Given Loperamide HCl (Imodium) 2 mg PO QID PRN PRN Reason: Diarrhea Last Admin: 05/01/17 22:58 Dose: 2 mg Magnesium Oxide (Mag-Ox) 400 mg PO DAILY [facility] Last Admin: 05/24/17 09:56 Dose: Not Given Multivitamins (Hexavitamin) 1 tab PO DAILY [facility] Last Admin: 05/24/17 09:56 Dose: Not Given Ondansetron HCl (Zofran Tab) 4 mg PO Q8H PRN PRN Reason: Nausea/Vomiting Last Admin: 05/22/17 09:13 Dose: 4 mg Petrolatum (Desitin Original) 0 gm TOP TID PRN PRN Reason: Rash Last Admin: 05/20/17 06:44 Dose: 1 applic Tramadol HCl (Ultram) 25 mg PO TID PRN PRN Reason: Pain, Mild (1-3) Last Admin: 05/23/17 17:56 Dose: 25 mg Zinc Sulfate (Zinc Sulfate 220 Mg Cap) 220 mg PO DAILY [facility] Last Admin: 05/24/17 09:56 Dose: Not Given - Labs Labs: 05/23/17 11:57 05/23/17 11:57 PT 11.9 SECONDS (9.7-12.2) 04/13/17 06:28 INR 1.1 04/13/17 06:28 APTT 27 SECONDS (21-34) 04/13/17 06:28 Attending/Attestation - Attestation I have personally seen and examined this patient.: Yes I have fully participated in the care of the patient.: Yes I have reviewed all pertinent clinical information, including history, physical exam and plan: Yes Notes (Text): Pt was seen and examined at bedside Agree with above note and assessment IR was unable to complete procedure Ileostomy care C.w IV antibitics Plan d.w pt in detail.
[2017-05-23] MEDS: Magnesium Oxide 400 mg Tab UD PO SCH (09:57)
[2017-05-23] MEDS: Multiple Vitamins Tab PO SCH (09:57)
[2017-05-23] MEDS: Lactobacillus Acidophilus 500 MU Cap PO SCH (09:57)
[2017-05-23] MEDS ORDERED: DiphenhydrAMINE 50 mg/ml Inj IVP SCH (10:00)
[2017-05-23] MEDS: DiphenhydrAMINE 50 mg/ml Inj IVP SCH ×2 (10:00→17:58)
[2017-05-23] MEDS ORDERED: Sodium Chloride 0.9% 250 ML IV ONE ×2 (10:32)
--- NOTE | 2017-05-23 10:53 | PCM.RRT ---
<Jsos James Quang - Last Filed: 05/23/17 10:48> MECHANIC WELDER Nurses Assessment - Situation Date: 04/29/17 Time MECHANIC WELDER was called: 10:00 MECHANIC WELDER Responder Arrival Time:: 10:00 MECHANIC WELDER Location:: Med/Surg Room Number: 667 b MECHANIC WELDER Reason for Call: Hypotension MECHANIC WELDER Called By: RN - IV IV Inserted during MECHANIC WELDER?: No IV Fluids Initiated During MECHANIC WELDER?: 500 ml o.9 ns New IV Insertion Tolerance: Good - Respiratory MECHANIC WELDER Delivery Method: Nasal Cannula @L/min Oxygen Flow Rate: 2 Received Nebulizer Treatments: No Was the Patient Ventilated with Bag/Mask 100% O2?: No Secretions Suctioned?: No Was the Patient Intubated?: No Was the Patient Placed on a Ventilator?: No - Ventilator Settings FIO2 (% Oxygen): 40 - Medication Medications Administered During MECHANIC WELDER: 0.9 ns 500 ml bolus - Diagnostic Test Ordered EKG: No Chest X-Ray: No CT Scan: No CPR started during MECHANIC WELDER?: Yes - Vital Signs Vital Signs: Rapid Response Vital Sign Blood Pressure 78/55 Pulse Rate 98 Respiratory Rate 20 Temperature 98.3 F - Sepsis Screen Part 1 Sepsis Screen Part 1: Hypotensive - Time MECHANIC WELDER Ended Time MECHANIC WELDER Ended: 10:30 - Vital Signs at end of MECHANIC WELDER Vital Signs at end of MECHANIC WELDER: Rapid Response End Vital Sign Blood Pressure 95/67 Pulse Rate 87 Respiratory Rate 20 Temperature 98 F - Recommendations Notifications: Attending Physician I.Reason for MECHANIC WELDER - A) Acute Change in Patient: (Select all that apply): Acute change in SBP below (90/60) Subjective: An MECHANIC WELDER was called on this patient in the brine room laborer while the patient was being prepped to go to the OR for a right nephrostomy tube exchange. Upon my arrival the machine reading BP was 71/47. She was already being given 250ml NS bolus at that time. The patient was asymptomatic. She denied dizziness or feeling lightheaded. She denied pain. Upon repeat, the machine reading BP was 84/57. Dr Bullard, did a manual blood pressure check which was 82/56. She was given another 250ml NS bolus. She was started on NS maintenance fluids at 75 cc/hr. Her OR procedure was cancelled as anesthesia did not feel comfortable giving her an anesthetic which could lower her BP even more. She will be sent back to on maintenance fluids. - Respiratory Oxygen Delivery Method: Nasal Cannula @L/min Oxygen Flow Rate: 2 - Constitutional Appears: Well, No Acute Distress - Head Head Exam: ATRAUMATIC, NORMAL INSPECTION - Eyes Eye Exam: EOMI, PERRL - Respiratory Exam Respiratory Exam: Clear to Ausculation Bilateral, NORMAL BREATHING PATTERN. absent: Rales, Rhonchi, Wheezes - Cardiovascular Exam Cardiovascular Exam: REGULAR RHYTHM, +S1, +S2. absent: Bradycardia, Tachycardia , JVD - GI/Abdominal Exam GI & Abdominal Exam: Soft, Normal Bowel Sounds. absent: Tenderness Additional comments: right and left nephrostomy tube in place with dressing c/d/i - Neurological Exam Neurological Exam: Alert, Awake, Oriented x3 - Extremities Exam Extremities Exam: Normal Capillary Refill <Skip Bullard - Last Filed: 05/23/17 12:24> MECHANIC WELDER Nurses Assessment - Vital Signs Vital Signs: Rapid Response Vital Sign Blood Pressure 71/42 Pulse Rate 107 Respiratory Rate 20 Temperature 98.3 F Oxygen Saturation 100 - Vital Signs at end of MECHANIC WELDER Vital Signs at end of MECHANIC WELDER: Rapid Response End Vital Sign Blood Pressure 92/53 Pulse Rate 108 Respiratory Rate 22 Temperature 98 F O2 Sat by Pulse Oximetry 100 Attending/Attestation - Attestation I have personally seen and examined this patient.: Yes I have fully participated in the care of the patient.: Yes I have reviewed all pertinent clinical information, including history, physical exam and plan: Yes Notes (Text): 05/23/17 12:19 Hospitalist Note: An MECHANIC WELDER was called in the brine room laborer. Patient did not have prcedure yet. It was noted that her blood pressure was low when the staff were checking. When I arrived there she was awake, alert and orientated. She was very plesant affect and cooperative during exam. She was not in any acute distress when I saw her. She denied headache, denied dizzyness She was already having a 250 cc bolus being given. The automatic BP cuffs read the BPs are being 70 systolic, however she is a small women and the cuff sizes despite being small were still a little too big for the patient so we found an even smaller manual cuff and I checked it twice and it was 82/50 and 84/50 She denied having pain or tenderness. Her other vital signs were ok. I gave instructions to give another 250 cc bolus. She is being moved back to the floors thank you Skip Bullard 05/23/17 12:24
--- NOTE | 2017-05-23 11:29 | CP.PCM.PN ---
Subjective - Date & Time of Evaluation Date of Evaluation: 05/23/17 Time of Evaluation: 09:00 - Subjective Subjective: GRAVE DIGGER events noted antibiotics on hold due to pruritis / possible allergy ? Objective - Vital Signs/Intake and Output Vital Signs (last 24 hours): Temp Pulse Resp BP Pulse Ox 97.3 F L 110 H 18 92/55 L 99 05/23/17 07:10 05/23/17 07:10 05/23/17 07:10 05/23/17 07:10 05/23/17 07:10 Intake and Output: 05/23/17 05/23/17 06:59 18:59 Intake Total 1909 Output Total 2049 Balance -141 - Medications Medications: Current Medications Acetaminophen/Codeine Phosphate (Tylenol/Codeine 300 Mg/30 Mg) 1 ea PO Q6 [facility] Last Admin: 05/23/17 06:00 Dose: Not Given Ascorbic Acid (Vitamin C 500 Mg Tab) 500 mg PO DAILY [facility] Last Admin: 05/23/17 09:57 Dose: Not Given Diphenhydramine HCl (Benadryl) 25 mg IVP Q8H [facility] Enoxaparin Sodium (Lovenox) 40 mg SC Q12 [facility] Last Admin: 05/07/17 21:41 Dose: 40 mg Sodium Chloride (Sodium Chloride 0.9%) 1,000 mls @ 75 mls/hr IV .[id number] [facility] Insulin Human Regular (Novolin R) 0 unit SC ACHS [facility] PRN Reason: Protocol Last Admin: 05/23/17 07:35 Dose: Not Given Lactobacillus Acidophilus (Bacid Acidophilus) 1 cap PO DAILY [facility] Last Admin: 05/23/17 09:57 Dose: Not Given Loperamide HCl (Imodium) 2 mg PO QID PRN PRN Reason: Diarrhea Last Admin: 05/01/17 22:58 Dose: 2 mg Magnesium Oxide (Mag-Ox) 400 mg PO DAILY [facility] Last Admin: 05/23/17 09:57 Dose: Not Given Multivitamins (Hexavitamin) 1 tab PO DAILY [facility] Last Admin: 05/23/17 09:57 Dose: Not Given Ondansetron HCl (Zofran Tab) 4 mg PO Q8H PRN PRN Reason: Nausea/Vomiting Last Admin: 05/22/17 09:13 Dose: 4 mg Petrolatum (Desitin Original) 0 gm TOP TID PRN PRN Reason: Rash Last Admin: 05/20/17 06:44 Dose: 1 applic Tramadol HCl (Ultram) 25 mg PO TID PRN PRN Reason: Pain, Mild (1-3) Last Admin: 05/22/17 22:29 Dose: 25 mg Zinc Sulfate (Zinc Sulfate 220 Mg Cap) 220 mg PO DAILY [facility] Last Admin: 05/23/17 09:57 Dose: Not Given - Labs Labs: 05/20/17 11:10 05/20/17 11:10 PT 11.9 SECONDS (9.7-12.2) 04/13/17 06:28 INR 1.1 04/13/17 06:28 APTT 27 SECONDS (21-34) 04/13/17 06:28 Assessment and Plan (1) Colonic fistula Status: Acute (2) Displacement of Mckeon catheter Status: Acute
[2017-05-23 12:05] LABS: BASO % 0.7 % (0.0-2.0); EOS # 0.5 K/uL (0.0-0.7); HEMATOCRIT 30.1 % (34.0-47.0); LYMPH # 1.5 K/uL (1.0-4.3); LYMPH % 23.6 % (20.0-40.0); MEAN CELL VOLUME 86.4 fL (81.0-99.0); MEAN CORPUSCULAR HEMOGLOBIN 28.7 pg (27.0-31.0); MEAN CORPUSCULAR HGB CONC 33.3 g/dL (33.0-37.0); MONO # 0.4 K/uL (0.0-0.8); MONO % 6.1 % (0.0-10.0); RED CELL DISTRIBUTION WIDTH 14.8 % (11.5-14.5); WHITE BLOOD COUNT 6.4 K/uL (4.8-10.8)
[2017-05-23 12:43] LABS: ALB/GLOB RATIO 0.6 (1.0-2.1); ALKALINE PHOSPHATASE 286 U/L (38-126); ALT/SGPT 107 U/L (9-52); AST/SGOT 98 U/L (14-36); BILIRUBIN,TOTAL 0.8 mg/dL (0.2-1.3); BLOOD UREA NITROGEN 35 mg/dL (7-17); CALCIUM 9.8 mg/dl (8.6-10.4); CARBON DIOXIDE 24 mmol/L (22-30); CHLORIDE 99 mmol/L (98-107); GFR AFRICAN-AMERICAN > 60; GLUCOSE,RANDOM 103 mg/dL (65-105); SODIUM 127 mmol/L (132-148); TOTAL PROTEIN 6.6 g/dL (6.3-8.3)
[2017-05-23] MEDS: Tramadol 25 mg PO PRN ×2 (14:30→17:56)
--- NOTE | 2017-05-23 20:39 | CP.PCM.PN ---
Subjective - Date & Time of Evaluation Date of Evaluation: 05/23/17 Time of Evaluation: 09:00 - Subjective Subjective: clinically same Objective - Vital Signs/Intake and Output Vital Signs (last 24 hours): Temp Pulse Resp BP Pulse Ox 98.3 F 102 H 18 112/77 98 05/23/17 15:26 05/23/17 15:26 05/23/17 15:26 05/23/17 15:26 05/23/17 15:26 Intake and Output: 05/23/17 05/24/17 18:59 06:59 Output Total 175 Balance -175 - Medications Medications: Current Medications Acetaminophen/Codeine Phosphate (Tylenol/Codeine 300 Mg/30 Mg) 1 ea PO Q6 [facility] Last Admin: 05/23/17 14:17 Dose: Not Given Ascorbic Acid (Vitamin C 500 Mg Tab) 500 mg PO DAILY [facility] Last Admin: 05/23/17 09:57 Dose: Not Given Diphenhydramine HCl (Benadryl) 25 mg IVP Q8H [facility] Last Admin: 05/23/17 17:58 Dose: Not Given Enoxaparin Sodium (Lovenox) 40 mg SC Q12 [facility] Last Admin: 05/07/17 21:41 Dose: 40 mg Sodium Chloride (Sodium Chloride 0.9%) 1,000 mls @ 75 mls/hr IV .[id number] [facility] Last Admin: 05/23/17 11:29 Dose: Not Given Insulin Human Regular (Novolin R) 0 unit SC ACHS [facility] PRN Reason: Protocol Last Admin: 05/23/17 17:57 Dose: 2 unit Lactobacillus Acidophilus (Bacid Acidophilus) 1 cap PO DAILY [facility] Last Admin: 05/23/17 09:57 Dose: Not Given Loperamide HCl (Imodium) 2 mg PO QID PRN PRN Reason: Diarrhea Last Admin: 05/01/17 22:58 Dose: 2 mg Magnesium Oxide (Mag-Ox) 400 mg PO DAILY [facility] Last Admin: 05/23/17 09:57 Dose: Not Given Multivitamins (Hexavitamin) 1 tab PO DAILY [facility] Last Admin: 05/23/17 09:57 Dose: Not Given Ondansetron HCl (Zofran Tab) 4 mg PO Q8H PRN PRN Reason: Nausea/Vomiting Last Admin: 05/22/17 09:13 Dose: 4 mg Petrolatum (Desitin Original) 0 gm TOP TID PRN PRN Reason: Rash Last Admin: 05/20/17 06:44 Dose: 1 applic Tramadol HCl (Ultram) 25 mg PO TID PRN PRN Reason: Pain, Mild (1-3) Last Admin: 05/23/17 17:56 Dose: 25 mg Zinc Sulfate (Zinc Sulfate 220 Mg Cap) 220 mg PO DAILY [facility] Last Admin: 05/23/17 09:57 Dose: Not Given - Labs Labs: 05/23/17 11:57 05/23/17 11:57 PT 11.9 SECONDS (9.7-12.2) 04/13/17 06:28 INR 1.1 04/13/17 06:28 APTT 27 SECONDS (21-34) 04/13/17 06:28 - Constitutional Appears: Well - Head Exam Head Exam: ATRAUMATIC, NORMAL INSPECTION, NORMOCEPHALIC - Eye Exam Eye Exam: EOMI, Normal appearance, PERRL Pupil Exam: NORMAL ACCOMODATION, PERRL - ENT Exam ENT Exam: Mucous Membranes Moist, Normal Exam - Neck Exam Neck Exam: Full ROM, Normal Inspection. absent: Lymphadenopathy - Respiratory Exam Respiratory Exam: Decreased Breath Sounds - Cardiovascular Exam Cardiovascular Exam: REGULAR RHYTHM, +S1, +S2 - GI/Abdominal Exam GI & Abdominal Exam: Soft, Diminished Bowel Sounds - Rectal Exam Rectal Exam: Deferred Assessment and Plan (1) Colonic fistula Status: Acute (2) Displacement of Mckeon catheter Status: Acute - Assessment and Plan (Free Text) Plan: Patient examined. Patient clinically the same. Continue supportive care.
[2017-05-24] MEDS: Sodium Chloride 0.9% 1,000 ML IV SCH ×2 (01:00→18:27)
[2017-05-24] MEDS: DiphenhydrAMINE 50 mg/ml Inj IVP SCH ×3 (01:51→18:28)
[2017-05-24] MEDS: Acetaminophen-Codeine 300/30 mg Tab PO SCH ×3 (05:21→18:26)
[2017-05-24] MEDS: (Novolin R) Insulin Human Regular 100 units/ml vial SC SCH ×4 (07:19→21:33)
[2017-05-24] MEDS ORDERED: Midazolam 2 MG/2 ML VIAL ONE (09:28)
[2017-05-24] MEDS ORDERED: Propofol 10 mg/ml Inj (20 ML) ONE (09:31)
[2017-05-24] MEDS ORDERED: Ciprofloxacin 400mg/200ml D5W 400 MG/200 ML BAG IVPB STA (09:51)
[2017-05-24] MEDS ORDERED: Iodixanol 320 MG/ML 100 ML BOTTLE IV ONE (09:55)
[2017-05-24] MEDS: Lactobacillus Acidophilus 500 MU Cap PO SCH (09:55)
[2017-05-24] MEDS: Multiple Vitamins Tab PO SCH (09:56)
[2017-05-24] MEDS: Magnesium Oxide 400 mg Tab UD PO SCH (09:56)
--- NOTE | 2017-05-24 10:08 | PCM.SURG1 ---
Surgeon's Initial Post Op Note - Surgeon's Notes Surgeon: Kyle Ramirez MD Shoe Stamper: None Type of Anesthesia: MAC Pre-Operative Diagnosis: colovesicular fistula Operative Findings: right UPJ web, patent ureter with filling of bladder Post-Operative Diagnosis: same Operation Performed: Right PCN Exchange, antegrade nephrostogram Specimen/Specimens Removed: N/A Estimated Blood Loss: EBL {In ML}: 0 Post-Op Condition: Good Date of Surgery/Procedure: 05/24/17 Time of Surgery/Procedure: 10:15
--- NOTE | 2017-05-24 15:19 | CP.PCM.PN ---
Subjective - Date & Time of Evaluation Date of Evaluation: 05/24/17 Time of Evaluation: 10:00 - Subjective Subjective: GENERAL SURGERY PROGRESS NOTE FOR DR. AUSTIN Patient's ileostomy was leaking and changed last night. She went for IR procedure today. Her right nephrostomy was exchanged and an antegrade nephrostogram was done which showed patent ureter with filling of bladder. Objective - Vital Signs/Intake and Output Vital Signs (last 24 hours): Temp Pulse Resp BP Pulse Ox 97.8 F 100 H 18 106/67 97 05/24/17 08:35 05/24/17 10:59 05/24/17 08:35 05/24/17 10:59 05/24/17 08:35 Intake and Output: 05/24/17 05/24/17 06:59 18:59 Output Total 1350 400 Balance -1350 -400 - Medications Medications: Current Medications Acetaminophen/Codeine Phosphate (Tylenol/Codeine 300 Mg/30 Mg) 1 ea PO Q6 [facility] Last Admin: 05/24/17 05:21 Dose: Not Given Ascorbic Acid (Vitamin C 500 Mg Tab) 500 mg PO DAILY [facility] Last Admin: 05/24/17 09:56 Dose: Not Given Diphenhydramine HCl (Benadryl) 25 mg IVP Q8H [facility] Last Admin: 05/24/17 09:55 Dose: Not Given Enoxaparin Sodium (Lovenox) 40 mg SC Q12 [facility] Last Admin: 05/07/17 21:41 Dose: 40 mg Sodium Chloride (Sodium Chloride 0.9%) 1,000 mls @ 75 mls/hr IV .[id number] [facility] Last Admin: 05/24/17 01:00 Dose: 75 mls/hr Insulin Human Regular (Novolin R) 0 unit SC ACHS [facility] PRN Reason: Protocol Last Admin: 05/24/17 12:04 Dose: Not Given Lactobacillus Acidophilus (Bacid Acidophilus) 1 cap PO DAILY [facility] Last Admin: 05/24/17 09:55 Dose: Not Given Loperamide HCl (Imodium) 2 mg PO QID PRN PRN Reason: Diarrhea Last Admin: 05/01/17 22:58 Dose: 2 mg Magnesium Oxide (Mag-Ox) 400 mg PO DAILY [facility] Last Admin: 05/24/17 09:56 Dose: Not Given Multivitamins (Hexavitamin) 1 tab PO DAILY [facility] Last Admin: 05/24/17 09:56 Dose: Not Given Ondansetron HCl (Zofran Tab) 4 mg PO Q8H PRN PRN Reason: Nausea/Vomiting Last Admin: 05/22/17 09:13 Dose: 4 mg Petrolatum (Desitin Original) 0 gm TOP TID PRN PRN Reason: Rash Last Admin: 05/20/17 06:44 Dose: 1 applic Tramadol HCl (Ultram) 25 mg PO TID PRN PRN Reason: Pain, Mild (1-3) Last Admin: 05/23/17 17:56 Dose: 25 mg Zinc Sulfate (Zinc Sulfate 220 Mg Cap) 220 mg PO DAILY [facility] Last Admin: 05/24/17 09:56 Dose: Not Given - Labs Labs: 05/23/17 11:57 05/23/17 11:57 PT 11.9 SECONDS (9.7-12.2) 04/13/17 06:28 INR 1.1 04/13/17 06:28 APTT 27 SECONDS (21-34) 04/13/17 06:28 - Constitutional Appears: Non-toxic, No Acute Distress, Chronically Ill - Head Exam Head Exam: ATRAUMATIC, NORMAL INSPECTION Assessment and Plan - Assessment and Plan (Free Text) Assessment: 61yo F s/p Ex lap, small bowel resection, bladder repair, appendectomy, ileostomy POD#42 now s/p right nephrostomy tube exchange by IR today - TPN & antibiotics discontinued - Discussed nephrostogram findings with urology Dr. Fernandez. Further urology workup can be done as outpatient - DC planning - Discussed plan with Dr. Misha Sims PGY-3
--- NOTE | 2017-05-24 16:16 | CP.PCM.PN ---
Subjective - Date & Time of Evaluation Date of Evaluation: 05/24/17 Time of Evaluation: 09:00 - Subjective Subjective: afebrile itching resolved Objective - Vital Signs/Intake and Output Vital Signs (last 24 hours): Temp Pulse Resp BP Pulse Ox 97.3 F L 106 H 20 109/65 100 05/24/17 15:00 05/24/17 15:00 05/24/17 15:00 05/24/17 15:00 05/24/17 15:00 Intake and Output: 05/24/17 05/24/17 06:59 18:59 Output Total 1350 400 Balance -1350 -400 - Medications Medications: Current Medications Acetaminophen/Codeine Phosphate (Tylenol/Codeine 300 Mg/30 Mg) 1 ea PO Q6 [facility] Last Admin: 05/24/17 05:21 Dose: Not Given Ascorbic Acid (Vitamin C 500 Mg Tab) 500 mg PO DAILY [facility] Last Admin: 05/24/17 09:56 Dose: Not Given Diphenhydramine HCl (Benadryl) 25 mg IVP Q8H [facility] Last Admin: 05/24/17 09:55 Dose: Not Given Enoxaparin Sodium (Lovenox) 40 mg SC Q12 [facility] Last Admin: 05/07/17 21:41 Dose: 40 mg Sodium Chloride (Sodium Chloride 0.9%) 1,000 mls @ 75 mls/hr IV .[id number] [facility] Last Admin: 05/24/17 01:00 Dose: 75 mls/hr Insulin Human Regular (Novolin R) 0 unit SC ACHS [facility] PRN Reason: Protocol Last Admin: 05/24/17 12:04 Dose: Not Given Lactobacillus Acidophilus (Bacid Acidophilus) 1 cap PO DAILY [facility] Last Admin: 05/24/17 09:55 Dose: Not Given Loperamide HCl (Imodium) 2 mg PO QID PRN PRN Reason: Diarrhea Last Admin: 05/01/17 22:58 Dose: 2 mg Magnesium Oxide (Mag-Ox) 400 mg PO DAILY [facility] Last Admin: 05/24/17 09:56 Dose: Not Given Multivitamins (Hexavitamin) 1 tab PO DAILY [facility] Last Admin: 05/24/17 09:56 Dose: Not Given Ondansetron HCl (Zofran Tab) 4 mg PO Q8H PRN PRN Reason: Nausea/Vomiting Last Admin: 05/22/17 09:13 Dose: 4 mg Petrolatum (Desitin Original) 0 gm TOP TID PRN PRN Reason: Rash Last Admin: 05/20/17 06:44 Dose: 1 applic Tramadol HCl (Ultram) 25 mg PO TID PRN PRN Reason: Pain, Mild (1-3) Last Admin: 05/23/17 17:56 Dose: 25 mg Zinc Sulfate (Zinc Sulfate 220 Mg Cap) 220 mg PO DAILY [facility] Last Admin: 05/24/17 09:56 Dose: Not Given - Labs Labs: 05/23/17 11:57 05/23/17 11:57 PT 11.9 SECONDS (9.7-12.2) 04/13/17 06:28 INR 1.1 04/13/17 06:28 APTT 27 SECONDS (21-34) 04/13/17 06:28 - Constitutional Appears: Non-toxic - Head Exam Head Exam: NORMOCEPHALIC - Eye Exam Eye Exam: PERRL - ENT Exam ENT Exam: Mucous Membranes Dry - Neck Exam Neck Exam: absent: Lymphadenopathy - Respiratory Exam Respiratory Exam: Decreased Breath Sounds - Cardiovascular Exam Cardiovascular Exam: REGULAR RHYTHM - GI/Abdominal Exam GI & Abdominal Exam: Distended, Soft - Rectal Exam Rectal Exam: Deferred Assessment and Plan (1) Colonic fistula Status: Acute (2) Displacement of Mckeon catheter Status: Acute - Assessment and Plan (Free Text) Assessment: 61yo F s/p Ex lap, small bowel resection, bladder repair, appendectomy, ileostomy POD#42 now s/p right nephrostomy tube exchange by IR today observe off antibiotics for d/c planning
--- NOTE | 2017-05-24 20:08 | CP.PCM.PN ---
Subjective - Date & Time of Evaluation Date of Evaluation: 05/24/17 Time of Evaluation: 08:20 - Subjective Subjective: clinically same Objective - Vital Signs/Intake and Output Vital Signs (last 24 hours): Temp Pulse Resp BP Pulse Ox 97.3 F L 106 H 20 109/65 100 05/24/17 15:00 05/24/17 15:00 05/24/17 15:00 05/24/17 15:00 05/24/17 15:00 Intake and Output: 05/24/17 05/25/17 18:59 06:59 Output Total 400 Balance -400 - Medications Medications: Current Medications Acetaminophen/Codeine Phosphate (Tylenol/Codeine 300 Mg/30 Mg) 1 ea PO Q6 [facility] Last Admin: 05/24/17 18:26 Dose: 1 ea Ascorbic Acid (Vitamin C 500 Mg Tab) 500 mg PO DAILY [facility] Last Admin: 05/24/17 09:56 Dose: Not Given Diphenhydramine HCl (Benadryl) 25 mg IVP Q8H [facility] Last Admin: 05/24/17 18:28 Dose: 25 mg Enoxaparin Sodium (Lovenox) 40 mg SC Q12 [facility] Last Admin: 05/07/17 21:41 Dose: 40 mg Sodium Chloride (Sodium Chloride 0.9%) 1,000 mls @ 75 mls/hr IV .[id number] [facility] Last Admin: 05/24/17 18:27 Dose: 75 mls/hr Insulin Human Regular (Novolin R) 0 unit SC ACHS [facility] PRN Reason: Protocol Last Admin: 05/24/17 17:15 Dose: 8 unit Lactobacillus Acidophilus (Bacid Acidophilus) 1 cap PO DAILY [facility] Last Admin: 05/24/17 09:55 Dose: Not Given Loperamide HCl (Imodium) 2 mg PO QID PRN PRN Reason: Diarrhea Last Admin: 05/01/17 22:58 Dose: 2 mg Magnesium Oxide (Mag-Ox) 400 mg PO DAILY [facility] Last Admin: 05/24/17 09:56 Dose: Not Given Multivitamins (Hexavitamin) 1 tab PO DAILY [facility] Last Admin: 05/24/17 09:56 Dose: Not Given Ondansetron HCl (Zofran Tab) 4 mg PO Q8H PRN PRN Reason: Nausea/Vomiting Last Admin: 05/22/17 09:13 Dose: 4 mg Petrolatum (Desitin Original) 0 gm TOP TID PRN PRN Reason: Rash Last Admin: 05/20/17 06:44 Dose: 1 applic Tramadol HCl (Ultram) 25 mg PO TID PRN PRN Reason: Pain, Mild (1-3) Last Admin: 05/23/17 17:56 Dose: 25 mg Zinc Sulfate (Zinc Sulfate 220 Mg Cap) 220 mg PO DAILY [facility] Last Admin: 05/24/17 09:56 Dose: Not Given - Labs Labs: 05/23/17 11:57 05/23/17 11:57 PT 11.9 SECONDS (9.7-12.2) 04/13/17 06:28 INR 1.1 04/13/17 06:28 APTT 27 SECONDS (21-34) 04/13/17 06:28 - Constitutional Appears: Well - Head Exam Head Exam: ATRAUMATIC, NORMAL INSPECTION, NORMOCEPHALIC - Eye Exam Eye Exam: EOMI, Normal appearance, PERRL Pupil Exam: NORMAL ACCOMODATION, PERRL - ENT Exam ENT Exam: Mucous Membranes Moist, Normal Exam - Neck Exam Neck Exam: Full ROM, Normal Inspection. absent: Lymphadenopathy - Respiratory Exam Respiratory Exam: Decreased Breath Sounds - Cardiovascular Exam Cardiovascular Exam: REGULAR RHYTHM, +S1, +S2 - GI/Abdominal Exam GI & Abdominal Exam: Soft, Diminished Bowel Sounds - Rectal Exam Rectal Exam: Deferred Assessment and Plan (1) Colonic fistula Status: Acute (2) Displacement of Mckeon catheter Status: Acute - Assessment and Plan (Free Text) Plan: Patient examined. Patient better. Continue supportive medications.
--- NOTE | 2017-05-24 21:15 | PCM.URO ---
Urology Progress Note - Subjective Abdominal Pain: Yes (less) Flank Pain: No Nausea: No Vomiting: No Voiding Well: No Hematuria: No Fever & Chills: No - Objective Lab Studies: Reviewed Lab Results Last 24 Hours: Laboratory Results - last 24 hr 05/23/17 05/24/17 05/24/17 20:53 06:32 12:02 POC Glucose (mg/dL) 171 H 89 104 05/24/17 16:35 POC Glucose (mg/dL) 319 H Intake & Output: Intake & Output 05/24/17 05/24/17 05/25/17 06:59 18:59 06:59 Output Total 1350 400 Balance -1350 -400 Output: Drainage 1050 150 Right Back 1050 150 Urine 300 250 Urethral (Mckeon) 300 250 Vital Signs: Vital Signs - 24 hr 05/24/17 05/24/17 05/24/17 00:05 05:25 08:35 Temperature 98.5 F 98.2 F 97.8 F Pulse Rate 111 H 105 H 90 Respiratory 20 20 18 Rate Blood Pressure 90/60 L 108/69 97/66 L O2 Sat by Pulse 96 100 97 Oximetry 05/24/17 05/24/17 10:59 15:00 Temperature 97.3 F L Pulse Rate 100 H 106 H Respiratory 20 Rate Blood Pressure 106/67 109/65 O2 Sat by Pulse 100 Oximetry Imaging Studies: Reviewed (No hydronephrosis. R NT in place Air in L renal collecting system Abnormal bladder contour, with bilat outpouching laterally; no extravasation) - Physical Exam Abdominal Exam: Soft, Non-Tender, Non-Distended Dressing: Intact Back: No CVA Tenderness (R NT in place) Urinary Catheter Draining Well: Yes (cloudy) - Plan Wound Care: Yes Catheter Care: Yes Intake & Output: Yes Additional Information: Imp: stable overall. Catheters in place for now. - Date & Time of Note Date: 05/24/17 Time: 10:45
[2017-05-25] MEDS: Acetaminophen-Codeine 300/30 mg Tab PO SCH ×6 (00:45→18:42)
[2017-05-25] MEDS: Zinc Oxide Topical 30 gm Tube TOP PRN (01:00)
[2017-05-25] MEDS: DiphenhydrAMINE 50 mg/ml Inj IVP SCH ×3 (01:10→18:26)
[2017-05-25] MEDS: Sodium Chloride 0.9% 1,000 ML IV SCH ×3 (02:43→16:45)
--- NOTE | 2017-05-25 07:59 | CP.PCM.PN ---
Subjective - Date & Time of Evaluation Date of Evaluation: 05/25/17 Time of Evaluation: 07:00 - Subjective Subjective: GENERAL SURGERY PROGRESS NOTE FOR DR. AUSTIN Patient seen and examined at bedside. Patient sleeping comfortably. She is tolerating regular diet. Patient's ileostomy was leaking and changed last night. She was given immodium. Right nephrostomy bag with urine. Objective - Vital Signs/Intake and Output Vital Signs (last 24 hours): Temp Pulse Resp BP Pulse Ox 98.5 F 105 H 20 93/55 L 100 05/25/17 05:56 05/25/17 05:56 05/25/17 05:56 05/25/17 05:56 05/24/17 23:20 Intake and Output: 05/25/17 05/25/17 06:59 18:59 Intake Total 1680 Output Total 1750 Balance -70 - Medications Medications: Current Medications Acetaminophen/Codeine Phosphate (Tylenol/Codeine 300 Mg/30 Mg) 1 ea PO Q6 [facility] Last Admin: 05/25/17 05:54 Dose: Not Given Ascorbic Acid (Vitamin C 500 Mg Tab) 500 mg PO DAILY [facility] Last Admin: 05/24/17 09:56 Dose: Not Given Diphenhydramine HCl (Benadryl) 25 mg IVP Q8H [facility] Last Admin: 05/25/17 01:10 Dose: 25 mg Enoxaparin Sodium (Lovenox) 40 mg SC Q12 [facility] Last Admin: 05/07/17 21:41 Dose: 40 mg Sodium Chloride (Sodium Chloride 0.9%) 1,000 mls @ 75 mls/hr IV .[id number] [facility] Last Admin: 05/25/17 05:55 Dose: 75 mls/hr Insulin Human Regular (Novolin R) 0 unit SC ACHS [facility] PRN Reason: Protocol Last Admin: 05/24/17 21:33 Dose: Not Given Lactobacillus Acidophilus (Bacid Acidophilus) 1 cap PO DAILY [facility] Last Admin: 05/24/17 09:55 Dose: Not Given Loperamide HCl (Imodium) 2 mg PO QID PRN PRN Reason: Diarrhea Last Admin: 05/25/17 01:09 Dose: 2 mg Magnesium Oxide (Mag-Ox) 400 mg PO DAILY [facility] Last Admin: 05/24/17 09:56 Dose: Not Given Multivitamins (Hexavitamin) 1 tab PO DAILY [facility] Last Admin: 05/24/17 09:56 Dose: Not Given Ondansetron HCl (Zofran Tab) 4 mg PO Q8H PRN PRN Reason: Nausea/Vomiting Last Admin: 05/22/17 09:13 Dose: 4 mg Petrolatum (Desitin Original) 0 gm TOP TID PRN PRN Reason: Rash Last Admin: 05/25/17 01:00 Dose: 1 applic Tramadol HCl (Ultram) 25 mg PO TID PRN PRN Reason: Pain, Mild (1-3) Last Admin: 05/23/17 17:56 Dose: 25 mg Zinc Sulfate (Zinc Sulfate 220 Mg Cap) 220 mg PO DAILY [facility] Last Admin: 05/24/17 09:56 Dose: Not Given - Labs Labs: 05/23/17 11:57 05/23/17 11:57 PT 11.9 SECONDS (9.7-12.2) 04/13/17 06:28 INR 1.1 04/13/17 06:28 APTT 27 SECONDS (21-34) 04/13/17 06:28 - Constitutional Appears: Non-toxic, No Acute Distress, Chronically Ill - Eye Exam Eye Exam: EOMI, Normal appearance - Respiratory Exam Respiratory Exam: NORMAL BREATHING PATTERN. absent: Respiratory Distress - Cardiovascular Exam Cardiovascular Exam: Tachycardia, +S1, +S2 - GI/Abdominal Exam GI & Abdominal Exam: Soft. absent: Distended, Firm, Guarding, Rigid, Tenderness , Rebound Additional comments: Ileostomy in place with liquid stool, no leak Dressing over midline incision clean/dry/intact - Neurological Exam Neurological Exam: Alert, Awake - Skin Skin Exam: Normal Color, Warm Assessment and Plan - Assessment and Plan (Free Text) Assessment: 61yo F s/p Ex lap, small bowel resection, bladder repair, appendectomy, ileostomy POD#43 now s/p right nephrostomy tube exchange by IR yesterday - Discussed nephrostogram findings with urology Dr. Fernandez. Further urology workup can be done as outpatient - Discussed disposition with block and case maker. Patient is a fdc resident at [facility] - Discussed plan with Dr. Misha Sims PGY-3
[2017-05-25 08:12] LABS: BASO % 0.6 % (0.0-2.0); EOS # 0.3 K/uL (0.0-0.7); HEMATOCRIT 27.7 % (34.0-47.0); LYMPH # 1.7 K/uL (1.0-4.3); LYMPH % 29.5 % (20.0-40.0); MEAN CELL VOLUME 86.3 fL (81.0-99.0); MEAN CORPUSCULAR HEMOGLOBIN 27.8 pg (27.0-31.0); MEAN CORPUSCULAR HGB CONC 32.2 g/dL (33.0-37.0); MEAN PLATELET VOLUME 7.9 fL (7.2-11.7); MONO # 0.5 K/uL (0.0-0.8); MONO % 8.1 % (0.0-10.0); NRBC % 0.1 % (0.0-2.0); RED CELL DISTRIBUTION WIDTH 14.7 % (11.5-14.5); WHITE BLOOD COUNT 5.7 K/uL (4.8-10.8)
[2017-05-25] MEDS: (Novolin R) Insulin Human Regular 100 units/ml vial SC SCH ×4 (08:33→21:59)
[2017-05-25 08:34] LABS: ALB/GLOB RATIO 0.6 (1.0-2.1); ALKALINE PHOSPHATASE 260 U/L (38-126); ALT/SGPT 89 U/L (9-52); AST/SGOT 64 U/L (14-36); BILIRUBIN,TOTAL 0.7 mg/dL (0.2-1.3); BLOOD UREA NITROGEN 18 mg/dL (7-17); CALCIUM 9.4 mg/dl (8.6-10.4); CARBON DIOXIDE 21 mmol/L (22-30); CHLORIDE 106 mmol/L (98-107); GFR AFRICAN-AMERICAN > 60; GLUCOSE,RANDOM 75 mg/dL (65-105); POTASSIUM 3.6 mmol/L (3.6-5.2); SODIUM 132 mmol/L (132-148); TOTAL PROTEIN 5.9 g/dL (6.3-8.3)
--- NOTE | 2017-05-25 09:01 | CP.PCM.PN ---
Subjective - Date & Time of Evaluation Date of Evaluation: 05/25/17 Time of Evaluation: 09:00 - Subjective Subjective: clinically same Objective - Vital Signs/Intake and Output Vital Signs (last 24 hours): Temp Pulse Resp BP Pulse Ox 97.2 F L 114 H 18 100/61 99 05/25/17 08:46 05/25/17 08:46 05/25/17 08:46 05/25/17 08:46 05/25/17 08:46 Intake and Output: 05/25/17 05/25/17 06:59 18:59 Intake Total 1680 Output Total 1750 Balance -70 - Medications Medications: Current Medications Acetaminophen/Codeine Phosphate (Tylenol/Codeine 300 Mg/30 Mg) 1 ea PO Q6 [facility] Last Admin: 05/25/17 05:54 Dose: Not Given Ascorbic Acid (Vitamin C 500 Mg Tab) 500 mg PO DAILY [facility] Last Admin: 05/24/17 09:56 Dose: Not Given Diphenhydramine HCl (Benadryl) 25 mg IVP Q8H [facility] Last Admin: 05/25/17 01:10 Dose: 25 mg Enoxaparin Sodium (Lovenox) 40 mg SC Q12 [facility] Last Admin: 05/07/17 21:41 Dose: 40 mg Sodium Chloride (Sodium Chloride 0.9%) 1,000 mls @ 75 mls/hr IV .[id number] [facility] Last Admin: 05/25/17 05:55 Dose: 75 mls/hr Insulin Human Regular (Novolin R) 0 unit SC ACHS [facility] PRN Reason: Protocol Last Admin: 05/25/17 08:33 Dose: Not Given Lactobacillus Acidophilus (Bacid Acidophilus) 1 cap PO DAILY [facility] Last Admin: 05/24/17 09:55 Dose: Not Given Loperamide HCl (Imodium) 2 mg PO QID PRN PRN Reason: Diarrhea Last Admin: 05/25/17 01:09 Dose: 2 mg Magnesium Oxide (Mag-Ox) 400 mg PO DAILY [facility] Last Admin: 05/24/17 09:56 Dose: Not Given Multivitamins (Hexavitamin) 1 tab PO DAILY [facility] Last Admin: 05/24/17 09:56 Dose: Not Given Ondansetron HCl (Zofran Tab) 4 mg PO Q8H PRN PRN Reason: Nausea/Vomiting Last Admin: 05/22/17 09:13 Dose: 4 mg Petrolatum (Desitin Original) 0 gm TOP TID PRN PRN Reason: Rash Last Admin: 05/25/17 01:00 Dose: 1 applic Tramadol HCl (Ultram) 25 mg PO TID PRN PRN Reason: Pain, Mild (1-3) Last Admin: 05/23/17 17:56 Dose: 25 mg Zinc Sulfate (Zinc Sulfate 220 Mg Cap) 220 mg PO DAILY [facility] Last Admin: 05/24/17 09:56 Dose: Not Given - Labs Labs: 05/25/17 08:07 05/25/17 08:07 PT 11.9 SECONDS (9.7-12.2) 04/13/17 06:28 INR 1.1 04/13/17 06:28 APTT 27 SECONDS (21-34) 04/13/17 06:28 - Constitutional Appears: Well - Head Exam Head Exam: ATRAUMATIC, NORMAL INSPECTION, NORMOCEPHALIC - Eye Exam Eye Exam: EOMI, Normal appearance, PERRL Pupil Exam: NORMAL ACCOMODATION, PERRL - ENT Exam ENT Exam: Mucous Membranes Moist, Normal Exam - Neck Exam Neck Exam: Full ROM, Normal Inspection. absent: Lymphadenopathy - Respiratory Exam Respiratory Exam: Decreased Breath Sounds - Cardiovascular Exam Cardiovascular Exam: REGULAR RHYTHM, +S1, +S2 - GI/Abdominal Exam GI & Abdominal Exam: Soft, Diminished Bowel Sounds - Rectal Exam Rectal Exam: Deferred Assessment and Plan (1) Colonic fistula Status: Acute (2) Displacement of Mckeon catheter Status: Acute
[2017-05-25] MEDS: Lactobacillus Acidophilus 500 MU Cap PO SCH (10:27)
[2017-05-25] MEDS: Magnesium Oxide 400 mg Tab UD PO SCH (10:27)
[2017-05-25] MEDS: Multiple Vitamins Tab PO SCH (10:27)
[2017-05-25] MEDS: Tramadol 25 mg PO PRN (19:50)
[2017-05-26] MEDS: Acetaminophen-Codeine 300/30 mg Tab PO SCH ×3 (00:24→11:56)
[2017-05-26] MEDS: DiphenhydrAMINE 50 mg/ml Inj IVP SCH ×3 (01:59→18:14)
[2017-05-26] MEDS: Sodium Chloride 0.9% 1,000 ML IV SCH ×3 (06:02→18:41)
[2017-05-26] MEDS: (Novolin R) Insulin Human Regular 100 units/ml vial SC SCH ×4 (07:19→21:50)
[2017-05-26] MEDS ORDERED: Sodium Chloride 0.9% 500 ML IV ONE (09:14)
[2017-05-26] MEDS: Lactobacillus Acidophilus 500 MU Cap PO SCH (10:20)
[2017-05-26] MEDS: Multiple Vitamins Tab PO SCH (10:21)
[2017-05-26] MEDS: Magnesium Oxide 400 mg Tab UD PO SCH (10:22)
[2017-05-26 11:26] LABS: BASO % 0.3 % (0.0-2.0); EOS # 0.3 K/uL (0.0-0.7); HEMATOCRIT 27.8 % (34.0-47.0); LYMPH # 1.9 K/uL (1.0-4.3); LYMPH % 28.4 % (20.0-40.0); MEAN CELL VOLUME 87.2 fL (81.0-99.0); MEAN CORPUSCULAR HEMOGLOBIN 29.2 pg (27.0-31.0); MEAN CORPUSCULAR HGB CONC 33.5 g/dL (33.0-37.0); MEAN PLATELET VOLUME 7.8 fL (7.2-11.7); MONO # 0.6 K/uL (0.0-0.8); MONO % 8.3 % (0.0-10.0); RED CELL DISTRIBUTION WIDTH 14.8 % (11.5-14.5); WHITE BLOOD COUNT 6.8 K/uL (4.8-10.8)
[2017-05-26 11:43] LABS: ALKALINE PHOSPHATASE 263 U/L (38-126); ALT/SGPT 80 U/L (9-52); AST/SGOT 66 U/L (14-36); BILIRUBIN,TOTAL 0.3 mg/dL (0.2-1.3); BLOOD UREA NITROGEN 14 mg/dL (7-17); CALCIUM 9.4 mg/dl (8.6-10.4); CARBON DIOXIDE 26 mmol/L (22-30); CHLORIDE 105 mmol/L (98-107); GFR AFRICAN-AMERICAN > 60; GLUCOSE,RANDOM 146 mg/dL (65-105); SODIUM 136 mmol/L (132-148)
[2017-05-26 11:52] LABS: ALB/GLOB RATIO 0.5 (1.0-2.1)
--- NOTE | 2017-05-26 17:02 | CP.PCM.PN ---
<Vikki Sims - Last Filed: 05/26/17 17:02> Subjective - Date & Time of Evaluation Date of Evaluation: 05/26/17 Time of Evaluation: 07:00 - Subjective Subjective: GENERAL SURGERY PROGRESS NOTE FOR DR. CABRAL Patient seen and examined at bedside. Patient's ileostomy was leaking and being changed. Right nephrostomy bag with urine. Objective - Vital Signs/Intake and Output Vital Signs (last 24 hours): Temp Pulse Resp BP Pulse Ox 98.6 F 109 H 20 88/47 L 100 05/26/17 16:08 05/26/17 16:08 05/26/17 16:08 05/26/17 16:08 05/26/17 16:08 Intake and Output: 05/26/17 05/26/17 06:59 18:59 Intake Total 1989 240 Output Total 1350 1575 Balance 640 -1335 - Medications Medications: Current Medications Ascorbic Acid (Vitamin C 500 Mg Tab) 500 mg PO DAILY [facility] Last Admin: 05/26/17 10:22 Dose: 500 mg Diphenhydramine HCl (Benadryl) 25 mg IVP Q8H [facility] Last Admin: 05/26/17 11:17 Dose: 25 mg Enoxaparin Sodium (Lovenox) 40 mg SC Q12 [facility] Last Admin: 05/07/17 21:41 Dose: 40 mg Sodium Chloride (Sodium Chloride 0.9%) 1,000 mls @ 75 mls/hr IV .[id number] [facility] Last Admin: 05/26/17 11:46 Dose: 75 mls/hr Insulin Human Regular (Novolin R) 0 unit SC ACHS [facility] PRN Reason: Protocol Last Admin: 05/26/17 11:46 Dose: 2 unit Ketorolac Tromethamine (Toradol) 15 mg IVP Q6 PRN PRN Reason: Pain, moderate (4-7) Last Admin: 05/26/17 12:00 Dose: 15 mg Lactobacillus Acidophilus (Bacid Acidophilus) 1 cap PO DAILY [facility] Last Admin: 05/26/17 10:20 Dose: 1 cap Loperamide HCl (Imodium) 2 mg PO QID PRN PRN Reason: Diarrhea Last Admin: 05/26/17 10:21 Dose: 2 mg Magnesium Oxide (Mag-Ox) 400 mg PO DAILY [facility] Last Admin: 05/26/17 10:22 Dose: 400 mg Multivitamins (Hexavitamin) 1 tab PO DAILY [facility] Last Admin: 05/26/17 10:21 Dose: 1 tab Ondansetron HCl (Zofran Tab) 4 mg PO Q8H PRN PRN Reason: Nausea/Vomiting Last Admin: 05/22/17 09:13 Dose: 4 mg Oxycodone/Acetaminophen (Percocet 5/325 Mg Tab) 1 tab PO Q6H PRN PRN Reason: Pain, severe (8-10) Stop: 05/29/17 11:33 Petrolatum (Desitin Original) 0 gm TOP TID PRN PRN Reason: Rash Last Admin: 05/25/17 01:00 Dose: 1 applic Tramadol HCl (Ultram) 25 mg PO TID PRN PRN Reason: Pain, Mild (1-3) Last Admin: 05/25/17 19:50 Dose: 25 mg Zinc Sulfate (Zinc Sulfate 220 Mg Cap) 220 mg PO DAILY [facility] Last Admin: 05/26/17 10:22 Dose: 220 mg - Labs Labs: 05/26/17 11:12 05/26/17 11:12 PT 11.9 SECONDS (9.7-12.2) 04/13/17 06:28 INR 1.1 04/13/17 06:28 APTT 27 SECONDS (21-34) 04/13/17 06:28 - Constitutional Appears: No Acute Distress, Cachectic, Chronically Ill - Cardiovascular Exam Cardiovascular Exam: +S1, +S2 - GI/Abdominal Exam GI & Abdominal Exam: Soft. absent: Tenderness, Rebound Additional comments: Ileostomy bag with liquid stool Excoriated skin from ileostomy Right nephrostomy tube - Neurological Exam Neurological Exam: Alert, Awake Assessment and Plan - Assessment and Plan (Free Text) Assessment: 61yo F s/p Ex lap, small bowel resection, bladder repair, appendectomy, ileostomy POD#44 now s/p right nephrostomy tube exchange by IR yesterday - Discussed nephrostogram findings with urology Dr. Fernandez. Further urology workup can be done as outpatient - Discussed disposition with disability case manager. 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 Misha Sims PGY-3 <Sumeet Cabral - Last Filed: 05/28/17 11:51> Objective - Vital Signs/Intake and Output Vital Signs (last 24 hours): Temp Pulse Resp BP Pulse Ox 97.9 F 116 H 18 144/66 100 05/28/17 09:47 05/28/17 09:47 05/28/17 09:47 05/28/17 09:47 05/28/17 09:47 Intake and Output: 05/28/17 05/28/17 06:59 18:59 Intake Total 1450 Output Total 2600 Balance -1150 - Medications Medications: Current Medications Ascorbic Acid (Vitamin C 500 Mg Tab) 500 mg PO DAILY [facility] Last Admin: 05/28/17 10:41 Dose: 500 mg Diphenhydramine HCl (Benadryl) 25 mg IVP Q8H [facility] Last Admin: 05/28/17 10:41 Dose: 25 mg Enoxaparin Sodium (Lovenox) 40 mg SC Q12 [facility] Last Admin: 05/07/17 21:41 Dose: 40 mg Sodium Chloride (Sodium Chloride 0.9%) 1,000 mls @ 75 mls/hr IV .[id number] [facility] Last Admin: 05/28/17 10:42 Dose: Not Given Insulin Human Regular (Novolin R) 0 unit SC ACHS [facility] PRN Reason: Protocol Last Admin: 05/28/17 08:13 Dose: Not Given Lactobacillus Acidophilus (Bacid Acidophilus) 1 cap PO DAILY [facility] Last Admin: 05/28/17 10:41 Dose: 1 cap Loperamide HCl (Imodium) 2 mg PO QID PRN PRN Reason: Diarrhea Last Admin: 05/27/17 18:29 Dose: 2 mg Magnesium Oxide (Mag-Ox) 400 mg PO DAILY [facility] Last Admin: 05/28/17 10:41 Dose: 400 mg Multivitamins (Hexavitamin) 1 tab PO DAILY [facility] Last Admin: 05/28/17 10:41 Dose: 1 tab Ondansetron HCl (Zofran Tab) 4 mg PO Q8H PRN PRN Reason: Nausea/Vomiting Last Admin: 05/22/17 09:13 Dose: 4 mg Oxycodone/Acetaminophen (Percocet 5/325 Mg Tab) 1 tab PO Q6H PRN PRN Reason: Pain, severe (8-10) Stop: 05/29/17 11:33 Last Admin: 05/28/17 10:40 Dose: 1 tab Petrolatum (Desitin Original) 0 gm TOP TID PRN PRN Reason: Rash Last Admin: 05/25/17 01:00 Dose: 1 applic Tramadol HCl (Ultram) 25 mg PO TID PRN PRN Reason: Pain, Mild (1-3) Last Admin: 05/25/17 19:50 Dose: 25 mg Zinc Sulfate (Zinc Sulfate 220 Mg Cap) 220 mg PO DAILY [facility] Last Admin: 05/28/17 10:41 Dose: 220 mg - Labs Labs: 05/26/17 11:12 05/26/17 11:12 PT 11.9 SECONDS (9.7-12.2) 04/13/17 06:28 INR 1.1 04/13/17 06:28 APTT 27 SECONDS (21-34) 04/13/17 06:28 Attending/Attestation - Attestation I have personally seen and examined this patient.: Yes I have fully participated in the care of the patient.: Yes I have reviewed all pertinent clinical information, including history, physical exam and plan: Yes Notes (Text): Pt was seen and examined at bedside Agree with above note and assessment Pt can be DC to rehab F.u in my office after 2 weeks f.u with Urologist after 2 weeks Po antibiotics as per ID Plan d.w pt in detail Risk and benefit explained in detail.
--- NOTE | 2017-05-26 19:50 | CP.PCM.PN ---
Subjective - Date & Time of Evaluation Date of Evaluation: 05/26/17 Time of Evaluation: 08:20 - Subjective Subjective: clinically same Objective - Vital Signs/Intake and Output Vital Signs (last 24 hours): Temp Pulse Resp BP Pulse Ox 98.6 F 109 H 20 88/47 L 100 05/26/17 16:08 05/26/17 16:08 05/26/17 16:08 05/26/17 16:08 05/26/17 16:08 Intake and Output: 05/26/17 05/27/17 18:59 06:59 Intake Total 240 Output Total 1575 Balance -1335 - Medications Medications: Current Medications Ascorbic Acid (Vitamin C 500 Mg Tab) 500 mg PO DAILY [facility] Last Admin: 05/26/17 10:22 Dose: 500 mg Diphenhydramine HCl (Benadryl) 25 mg IVP Q8H [facility] Last Admin: 05/26/17 18:14 Dose: 25 mg Enoxaparin Sodium (Lovenox) 40 mg SC Q12 [facility] Last Admin: 05/07/17 21:41 Dose: 40 mg Sodium Chloride (Sodium Chloride 0.9%) 1,000 mls @ 75 mls/hr IV .[id number] [facility] Last Admin: 05/26/17 18:41 Dose: Not Given Insulin Human Regular (Novolin R) 0 unit SC ACHS [facility] PRN Reason: Protocol Last Admin: 05/26/17 17:15 Dose: 2 unit Ketorolac Tromethamine (Toradol) 15 mg IVP Q6 PRN PRN Reason: Pain, moderate (4-7) Last Admin: 05/26/17 18:22 Dose: 15 mg Lactobacillus Acidophilus (Bacid Acidophilus) 1 cap PO DAILY [facility] Last Admin: 05/26/17 10:20 Dose: 1 cap Loperamide HCl (Imodium) 2 mg PO QID PRN PRN Reason: Diarrhea Last Admin: 05/26/17 10:21 Dose: 2 mg Magnesium Oxide (Mag-Ox) 400 mg PO DAILY [facility] Last Admin: 05/26/17 10:22 Dose: 400 mg Multivitamins (Hexavitamin) 1 tab PO DAILY [facility] Last Admin: 05/26/17 10:21 Dose: 1 tab Ondansetron HCl (Zofran Tab) 4 mg PO Q8H PRN PRN Reason: Nausea/Vomiting Last Admin: 05/22/17 09:13 Dose: 4 mg Oxycodone/Acetaminophen (Percocet 5/325 Mg Tab) 1 tab PO Q6H PRN PRN Reason: Pain, severe (8-10) Stop: 05/29/17 11:33 Petrolatum (Desitin Original) 0 gm TOP TID PRN PRN Reason: Rash Last Admin: 05/25/17 01:00 Dose: 1 applic Tramadol HCl (Ultram) 25 mg PO TID PRN PRN Reason: Pain, Mild (1-3) Last Admin: 05/25/17 19:50 Dose: 25 mg Zinc Sulfate (Zinc Sulfate 220 Mg Cap) 220 mg PO DAILY [facility] Last Admin: 05/26/17 10:22 Dose: 220 mg - Labs Labs: 05/26/17 11:12 05/26/17 11:12 PT 11.9 SECONDS (9.7-12.2) 04/13/17 06:28 INR 1.1 04/13/17 06:28 APTT 27 SECONDS (21-34) 04/13/17 06:28 - Constitutional Appears: Well - Head Exam Head Exam: ATRAUMATIC, NORMAL INSPECTION, NORMOCEPHALIC - Eye Exam Eye Exam: EOMI, Normal appearance, PERRL Pupil Exam: NORMAL ACCOMODATION, PERRL - ENT Exam ENT Exam: Mucous Membranes Moist, Normal Exam - Neck Exam Neck Exam: Full ROM, Normal Inspection. absent: Lymphadenopathy - Respiratory Exam Respiratory Exam: Decreased Breath Sounds - Cardiovascular Exam Cardiovascular Exam: REGULAR RHYTHM, +S1, +S2 - GI/Abdominal Exam GI & Abdominal Exam: Soft, Diminished Bowel Sounds - Rectal Exam Rectal Exam: Deferred Assessment and Plan (1) Colonic fistula Status: Acute (2) Displacement of Mckeon catheter Status: Acute
[2017-05-27] MEDS: DiphenhydrAMINE 50 mg/ml Inj IVP SCH ×3 (02:06→18:24)
[2017-05-27] MEDS: Sodium Chloride 0.9% 1,000 ML IV SCH ×3 (02:06→22:04)
[2017-05-27] MEDS: (Novolin R) Insulin Human Regular 100 units/ml vial SC SCH ×4 (07:18→22:04)
--- NOTE | 2017-05-27 09:53 | CP.PCM.PN ---
<DeoZari - Last Filed: 05/27/17 09:49> Subjective - Date & Time of Evaluation Date of Evaluation: 05/27/17 Time of Evaluation: 07:00 - Subjective Subjective: General Surgery Dr. Cabral Pt S&E @bedside. KATHERINE. Pt c/o pain at ostomy site. denies N/V, F/C. Tolerating regular diet. Objective - Vital Signs/Intake and Output Vital Signs (last 24 hours): Temp Pulse Resp BP Pulse Ox 98 F 112 H 17 92/53 L 99 05/27/17 07:20 05/27/17 07:20 05/27/17 07:20 05/27/17 07:20 05/27/17 07:20 Intake and Output: 05/27/17 05/27/17 06:59 18:59 Intake Total 1440 Output Total 1900 Balance -460 - Medications Medications: Current Medications Ascorbic Acid (Vitamin C 500 Mg Tab) 500 mg PO DAILY [facility] Last Admin: 05/26/17 10:22 Dose: 500 mg Diphenhydramine HCl (Benadryl) 25 mg IVP Q8H [facility] Last Admin: 05/27/17 02:06 Dose: 25 mg Enoxaparin Sodium (Lovenox) 40 mg SC Q12 [facility] Last Admin: 05/07/17 21:41 Dose: 40 mg Sodium Chloride (Sodium Chloride 0.9%) 1,000 mls @ 75 mls/hr IV .[id number] [facility] Last Admin: 05/27/17 02:06 Dose: 75 mls/hr Insulin Human Regular (Novolin R) 0 unit SC ACHS [facility] PRN Reason: Protocol Last Admin: 05/27/17 07:18 Dose: Not Given Ketorolac Tromethamine (Toradol) 15 mg IVP Q6 PRN PRN Reason: Pain, moderate (4-7) Last Admin: 05/27/17 08:04 Dose: 15 mg Lactobacillus Acidophilus (Bacid Acidophilus) 1 cap PO DAILY [facility] Last Admin: 05/26/17 10:20 Dose: 1 cap Loperamide HCl (Imodium) 2 mg PO QID PRN PRN Reason: Diarrhea Last Admin: 05/26/17 10:21 Dose: 2 mg Magnesium Oxide (Mag-Ox) 400 mg PO DAILY [facility] Last Admin: 05/26/17 10:22 Dose: 400 mg Multivitamins (Hexavitamin) 1 tab PO DAILY [facility] Last Admin: 05/26/17 10:21 Dose: 1 tab Ondansetron HCl (Zofran Tab) 4 mg PO Q8H PRN PRN Reason: Nausea/Vomiting Last Admin: 05/22/17 09:13 Dose: 4 mg Oxycodone/Acetaminophen (Percocet 5/325 Mg Tab) 1 tab PO Q6H PRN PRN Reason: Pain, severe (8-10) Stop: 05/29/17 11:33 Petrolatum (Desitin Original) 0 gm TOP TID PRN PRN Reason: Rash Last Admin: 05/25/17 01:00 Dose: 1 applic Tramadol HCl (Ultram) 25 mg PO TID PRN PRN Reason: Pain, Mild (1-3) Last Admin: 05/25/17 19:50 Dose: 25 mg Zinc Sulfate (Zinc Sulfate 220 Mg Cap) 220 mg PO DAILY [facility] Last Admin: 05/26/17 10:22 Dose: 220 mg - Labs Labs: 05/26/17 11:12 05/26/17 11:12 PT 11.9 SECONDS (9.7-12.2) 04/13/17 06:28 INR 1.1 04/13/17 06:28 APTT 27 SECONDS (21-34) 04/13/17 06:28 - Constitutional Appears: Non-toxic, No Acute Distress, Chronically Ill - Head Exam Head Exam: NORMAL INSPECTION - Eye Exam Eye Exam: Normal appearance - ENT Exam ENT Exam: Mucous Membranes Moist - Respiratory Exam Respiratory Exam: NORMAL BREATHING PATTERN. absent: Accessory Muscle Use, Respiratory Distress - Cardiovascular Exam Cardiovascular Exam: absent: Bradycardia, Tachycardia - GI/Abdominal Exam GI & Abdominal Exam: Soft. absent: Distended, Guarding, Tenderness, Rebound Additional comments: dressing c/d/i ostomy appliance in place. semi-formed stool present in bag - Extremities Exam Extremities Exam: Normal Inspection - Back Exam Additional comments: right nephro tube in place - Neurological Exam Neurological Exam: Alert, Awake, Oriented x3 - Psychiatric Exam Psychiatric exam: Normal Affect, Normal Mood - Skin Skin Exam: Dry, Intact, Normal Color, Warm Assessment and Plan - Assessment and Plan (Free Text) Assessment: 61yo F s/p Ex lap, small bowel resection, bladder repair, appendectomy, ileostomy POD#44 now s/p right nephrostomy tube exchange by IR yesterday - Per urology, pt cleared for discharge w/ further outpatient work up - Per commissary manager, pt will be returning to [facility] Pt discussed w/ Dr. Misha Desouza DO PGY2 <Sumeet Cabral - Last Filed: 05/28/17 11:53> Objective - Vital Signs/Intake and Output Vital Signs (last 24 hours): Temp Pulse Resp BP Pulse Ox 97.9 F 116 H 18 144/66 100 05/28/17 09:47 05/28/17 09:47 05/28/17 09:47 05/28/17 09:47 05/28/17 09:47 Intake and Output: 05/28/17 05/28/17 06:59 18:59 Intake Total 1450 Output Total 2600 Balance -1150 - Medications Medications: Current Medications Ascorbic Acid (Vitamin C 500 Mg Tab) 500 mg PO DAILY [facility] Last Admin: 05/28/17 10:41 Dose: 500 mg Diphenhydramine HCl (Benadryl) 25 mg IVP Q8H [facility] Last Admin: 05/28/17 10:41 Dose: 25 mg Enoxaparin Sodium (Lovenox) 40 mg SC Q12 [facility] Last Admin: 05/07/17 21:41 Dose: 40 mg Sodium Chloride (Sodium Chloride 0.9%) 1,000 mls @ 75 mls/hr IV .[id number] [facility] Last Admin: 05/28/17 10:42 Dose: Not Given Insulin Human Regular (Novolin R) 0 unit SC ACHS [facility] PRN Reason: Protocol Last Admin: 05/28/17 08:13 Dose: Not Given Lactobacillus Acidophilus (Bacid Acidophilus) 1 cap PO DAILY [facility] Last Admin: 05/28/17 10:41 Dose: 1 cap Loperamide HCl (Imodium) 2 mg PO QID PRN PRN Reason: Diarrhea Last Admin: 05/27/17 18:29 Dose: 2 mg Magnesium Oxide (Mag-Ox) 400 mg PO DAILY [facility] Last Admin: 05/28/17 10:41 Dose: 400 mg Multivitamins (Hexavitamin) 1 tab PO DAILY [facility] Last Admin: 05/28/17 10:41 Dose: 1 tab Ondansetron HCl (Zofran Tab) 4 mg PO Q8H PRN PRN Reason: Nausea/Vomiting Last Admin: 05/22/17 09:13 Dose: 4 mg Oxycodone/Acetaminophen (Percocet 5/325 Mg Tab) 1 tab PO Q6H PRN PRN Reason: Pain, severe (8-10) Stop: 05/29/17 11:33 Last Admin: 05/28/17 10:40 Dose: 1 tab Petrolatum (Desitin Original) 0 gm TOP TID PRN PRN Reason: Rash Last Admin: 05/25/17 01:00 Dose: 1 applic Tramadol HCl (Ultram) 25 mg PO TID PRN PRN Reason: Pain, Mild (1-3) Last Admin: 05/25/17 19:50 Dose: 25 mg Zinc Sulfate (Zinc Sulfate 220 Mg Cap) 220 mg PO DAILY [facility] Last Admin: 05/28/17 10:41 Dose: 220 mg - Labs Labs: 05/26/17 11:12 05/26/17 11:12 PT 11.9 SECONDS (9.7-12.2) 04/13/17 06:28 INR 1.1 04/13/17 06:28 APTT 27 SECONDS (21-34) 04/13/17 06:28 Attending/Attestation - Attestation I have fully participated in the care of the patient.: Yes I have reviewed all pertinent clinical information, including history, physical exam and plan: Yes Notes (Text): Pt can be Discharge to rehab Ileostomy care F/u with urology and my office as out pt after 2 weeks Plan samantha Higgins in detail.
[2017-05-27] MEDS: Magnesium Oxide 400 mg Tab UD PO SCH (10:04)
[2017-05-27] MEDS: Lactobacillus Acidophilus 500 MU Cap PO SCH (10:04)
[2017-05-27] MEDS: Multiple Vitamins Tab PO SCH (10:04)
--- NOTE | 2017-05-27 16:02 | CP.PCM.PN ---
Subjective - Date & Time of Evaluation Date of Evaluation: 05/27/17 Time of Evaluation: 08:40 - Subjective Subjective: clinically same Objective - Vital Signs/Intake and Output Vital Signs (last 24 hours): Temp Pulse Resp BP Pulse Ox 98 F 112 H 17 92/53 L 99 05/27/17 07:20 05/27/17 07:20 05/27/17 07:20 05/27/17 07:20 05/27/17 07:20 Intake and Output: 05/27/17 05/27/17 06:59 18:59 Intake Total 1440 Output Total 1900 1225 Balance -460 -1225 - Medications Medications: Current Medications Ascorbic Acid (Vitamin C 500 Mg Tab) 500 mg PO DAILY [facility] Last Admin: 05/27/17 10:04 Dose: 500 mg Diphenhydramine HCl (Benadryl) 25 mg IVP Q8H [facility] Last Admin: 05/27/17 10:04 Dose: 25 mg Enoxaparin Sodium (Lovenox) 40 mg SC Q12 [facility] Last Admin: 05/07/17 21:41 Dose: 40 mg Sodium Chloride (Sodium Chloride 0.9%) 1,000 mls @ 75 mls/hr IV .[id number] [facility] Last Admin: 05/27/17 02:06 Dose: 75 mls/hr Insulin Human Regular (Novolin R) 0 unit SC ACHS [facility] PRN Reason: Protocol Last Admin: 05/27/17 12:51 Dose: 2 unit Ketorolac Tromethamine (Toradol) 15 mg IVP Q6 PRN PRN Reason: Pain, moderate (4-7) Last Admin: 05/27/17 08:04 Dose: 15 mg Lactobacillus Acidophilus (Bacid Acidophilus) 1 cap PO DAILY [facility] Last Admin: 05/27/17 10:04 Dose: 1 cap Loperamide HCl (Imodium) 2 mg PO QID PRN PRN Reason: Diarrhea Last Admin: 05/27/17 10:04 Dose: 2 mg Magnesium Oxide (Mag-Ox) 400 mg PO DAILY [facility] Last Admin: 05/27/17 10:04 Dose: 400 mg Multivitamins (Hexavitamin) 1 tab PO DAILY [facility] Last Admin: 05/27/17 10:04 Dose: 1 tab Ondansetron HCl (Zofran Tab) 4 mg PO Q8H PRN PRN Reason: Nausea/Vomiting Last Admin: 05/22/17 09:13 Dose: 4 mg Oxycodone/Acetaminophen (Percocet 5/325 Mg Tab) 1 tab PO Q6H PRN PRN Reason: Pain, severe (8-10) Stop: 05/29/17 11:33 Petrolatum (Desitin Original) 0 gm TOP TID PRN PRN Reason: Rash Last Admin: 05/25/17 01:00 Dose: 1 applic Tramadol HCl (Ultram) 25 mg PO TID PRN PRN Reason: Pain, Mild (1-3) Last Admin: 05/25/17 19:50 Dose: 25 mg Zinc Sulfate (Zinc Sulfate 220 Mg Cap) 220 mg PO DAILY [facility] Last Admin: 05/27/17 10:04 Dose: 220 mg - Labs Labs: 05/26/17 11:12 05/26/17 11:12 PT 11.9 SECONDS (9.7-12.2) 04/13/17 06:28 INR 1.1 04/13/17 06:28 APTT 27 SECONDS (21-34) 04/13/17 06:28 - Constitutional Appears: Well - Head Exam Head Exam: ATRAUMATIC, NORMAL INSPECTION, NORMOCEPHALIC - Eye Exam Eye Exam: EOMI, Normal appearance, PERRL Pupil Exam: NORMAL ACCOMODATION, PERRL - ENT Exam ENT Exam: Mucous Membranes Moist, Normal Exam - Neck Exam Neck Exam: Full ROM, Normal Inspection. absent: Lymphadenopathy - Respiratory Exam Respiratory Exam: Decreased Breath Sounds - Cardiovascular Exam Cardiovascular Exam: REGULAR RHYTHM, +S1, +S2 - GI/Abdominal Exam GI & Abdominal Exam: Soft, Diminished Bowel Sounds - Rectal Exam Rectal Exam: Deferred Assessment and Plan (1) Colonic fistula Status: Acute (2) Displacement of Mckeon catheter Status: Acute
[2017-05-27] MEDS: Oxycodone/Acetaminophen 5/325 mg Tab PO PRN (18:29)
[2017-05-27 19:34] VITALS: O2SAT 100
[2017-05-28] MEDS: DiphenhydrAMINE 50 mg/ml Inj IVP SCH ×3 (01:00→17:44)
[2017-05-28] MEDS: (Novolin R) Insulin Human Regular 100 units/ml vial SC SCH ×4 (08:13→22:00)
--- NOTE | 2017-05-28 08:23 | CP.PCM.PN ---
Objective - Vital Signs/Intake and Output Vital Signs (last 24 hours): Temp Pulse Resp BP Pulse Ox 98.2 F 117 H 20 106/62 100 05/27/17 23:20 05/27/17 23:20 05/27/17 23:20 05/27/17 23:20 05/27/17 23:20 Intake and Output: 05/28/17 05/28/17 06:59 18:59 Intake Total 1450 Output Total 2600 Balance -1150 - Medications Medications: Current Medications Ascorbic Acid (Vitamin C 500 Mg Tab) 500 mg PO DAILY [facility] Last Admin: 05/27/17 10:04 Dose: 500 mg Diphenhydramine HCl (Benadryl) 25 mg IVP Q8H [facility] Last Admin: 05/28/17 01:00 Dose: 25 mg Enoxaparin Sodium (Lovenox) 40 mg SC Q12 [facility] Last Admin: 05/07/17 21:41 Dose: 40 mg Sodium Chloride (Sodium Chloride 0.9%) 1,000 mls @ 75 mls/hr IV .[id number] [facility] Last Admin: 05/27/17 22:04 Dose: Not Given Insulin Human Regular (Novolin R) 0 unit SC ACHS [facility] PRN Reason: Protocol Last Admin: 05/28/17 08:13 Dose: Not Given Ketorolac Tromethamine (Toradol) 15 mg IVP Q6 PRN PRN Reason: Pain, moderate (4-7) Last Admin: 05/28/17 07:33 Dose: 15 mg Lactobacillus Acidophilus (Bacid Acidophilus) 1 cap PO DAILY [facility] Last Admin: 05/27/17 10:04 Dose: 1 cap Loperamide HCl (Imodium) 2 mg PO QID PRN PRN Reason: Diarrhea Last Admin: 05/27/17 18:29 Dose: 2 mg Magnesium Oxide (Mag-Ox) 400 mg PO DAILY [facility] Last Admin: 05/27/17 10:04 Dose: 400 mg Multivitamins (Hexavitamin) 1 tab PO DAILY [facility] Last Admin: 05/27/17 10:04 Dose: 1 tab Ondansetron HCl (Zofran Tab) 4 mg PO Q8H PRN PRN Reason: Nausea/Vomiting Last Admin: 05/22/17 09:13 Dose: 4 mg Oxycodone/Acetaminophen (Percocet 5/325 Mg Tab) 1 tab PO Q6H PRN PRN Reason: Pain, severe (8-10) Stop: 05/29/17 11:33 Last Admin: 05/27/17 18:29 Dose: 1 tab Petrolatum (Desitin Original) 0 gm TOP TID PRN PRN Reason: Rash Last Admin: 05/25/17 01:00 Dose: 1 applic Tramadol HCl (Ultram) 25 mg PO TID PRN PRN Reason: Pain, Mild (1-3) Last Admin: 05/25/17 19:50 Dose: 25 mg Zinc Sulfate (Zinc Sulfate 220 Mg Cap) 220 mg PO DAILY [facility] Last Admin: 05/27/17 10:04 Dose: 220 mg - Labs Labs: 05/26/17 11:12 05/26/17 11:12 PT 11.9 SECONDS (9.7-12.2) 04/13/17 06:28 INR 1.1 04/13/17 06:28 APTT 27 SECONDS (21-34) 04/13/17 06:28
[2017-05-28] MEDS: Oxycodone/Acetaminophen 5/325 mg Tab PO PRN ×2 (10:40→17:51)
[2017-05-28] MEDS: Lactobacillus Acidophilus 500 MU Cap PO SCH (10:41)
[2017-05-28] MEDS: Magnesium Oxide 400 mg Tab UD PO SCH (10:41)
[2017-05-28] MEDS: Multiple Vitamins Tab PO SCH (10:41)
[2017-05-28] MEDS: Sodium Chloride 0.9% 1,000 ML IV SCH ×2 (10:42→17:46)
--- NOTE | 2017-05-28 12:34 | CP.PCM.PN ---
Subjective - Date & Time of Evaluation Date of Evaluation: 05/28/17 Time of Evaluation: 09:00 - Subjective Subjective: clinically same Objective - Vital Signs/Intake and Output Vital Signs (last 24 hours): Temp Pulse Resp BP Pulse Ox 97.9 F 116 H 18 144/66 100 05/28/17 09:47 05/28/17 09:47 05/28/17 09:47 05/28/17 09:47 05/28/17 09:47 Intake and Output: 05/28/17 05/28/17 06:59 18:59 Intake Total 1450 Output Total 2600 Balance -1150 - Medications Medications: Current Medications Ascorbic Acid (Vitamin C 500 Mg Tab) 500 mg PO DAILY [facility] Last Admin: 05/28/17 10:41 Dose: 500 mg Diphenhydramine HCl (Benadryl) 25 mg IVP Q8H [facility] Last Admin: 05/28/17 10:41 Dose: 25 mg Enoxaparin Sodium (Lovenox) 40 mg SC Q12 [facility] Last Admin: 05/07/17 21:41 Dose: 40 mg Sodium Chloride (Sodium Chloride 0.9%) 1,000 mls @ 75 mls/hr IV .[id number] [facility] Last Admin: 05/28/17 10:42 Dose: Not Given Insulin Human Regular (Novolin R) 0 unit SC ACHS [facility] PRN Reason: Protocol Last Admin: 05/28/17 12:21 Dose: 2 unit Lactobacillus Acidophilus (Bacid Acidophilus) 1 cap PO DAILY [facility] Last Admin: 05/28/17 10:41 Dose: 1 cap Loperamide HCl (Imodium) 2 mg PO QID PRN PRN Reason: Diarrhea Last Admin: 05/27/17 18:29 Dose: 2 mg Magnesium Oxide (Mag-Ox) 400 mg PO DAILY [facility] Last Admin: 05/28/17 10:41 Dose: 400 mg Multivitamins (Hexavitamin) 1 tab PO DAILY [facility] Last Admin: 05/28/17 10:41 Dose: 1 tab Ondansetron HCl (Zofran Tab) 4 mg PO Q8H PRN PRN Reason: Nausea/Vomiting Last Admin: 05/22/17 09:13 Dose: 4 mg Oxycodone/Acetaminophen (Percocet 5/325 Mg Tab) 1 tab PO Q6H PRN PRN Reason: Pain, severe (8-10) Stop: 05/29/17 11:33 Last Admin: 05/28/17 10:40 Dose: 1 tab Petrolatum (Desitin Original) 0 gm TOP TID PRN PRN Reason: Rash Last Admin: 05/25/17 01:00 Dose: 1 applic Tramadol HCl (Ultram) 25 mg PO TID PRN PRN Reason: Pain, Mild (1-3) Last Admin: 05/25/17 19:50 Dose: 25 mg Zinc Sulfate (Zinc Sulfate 220 Mg Cap) 220 mg PO DAILY [facility] Last Admin: 05/28/17 10:41 Dose: 220 mg - Labs Labs: 05/26/17 11:12 05/26/17 11:12 PT 11.9 SECONDS (9.7-12.2) 04/13/17 06:28 INR 1.1 04/13/17 06:28 APTT 27 SECONDS (21-34) 04/13/17 06:28 Assessment and Plan (1) Colonic fistula Status: Acute (2) Displacement of Mckeon catheter Status: Acute
--- NOTE | 2017-05-28 13:35 | CP.PCM.PN ---
Subjective - Date & Time of Evaluation Date of Evaluation: 05/28/17 Time of Evaluation: 09:00 - Subjective Subjective: no fever or leukocytosis c/o pain at ostomy site Objective - Vital Signs/Intake and Output Vital Signs (last 24 hours): Temp Pulse Resp BP Pulse Ox 97.9 F 116 H 18 144/66 100 05/28/17 09:47 05/28/17 09:47 05/28/17 09:47 05/28/17 09:47 05/28/17 09:47 Intake and Output: 05/28/17 05/28/17 06:59 18:59 Intake Total 1450 Output Total 2600 Balance -1150 - Medications Medications: Current Medications Ascorbic Acid (Vitamin C 500 Mg Tab) 500 mg PO DAILY [facility] Last Admin: 05/28/17 10:41 Dose: 500 mg Diphenhydramine HCl (Benadryl) 25 mg IVP Q8H [facility] Last Admin: 05/28/17 10:41 Dose: 25 mg Enoxaparin Sodium (Lovenox) 40 mg SC Q12 [facility] Last Admin: 05/07/17 21:41 Dose: 40 mg Sodium Chloride (Sodium Chloride 0.9%) 1,000 mls @ 75 mls/hr IV .[id number] [facility] Last Admin: 05/28/17 10:42 Dose: Not Given Insulin Human Regular (Novolin R) 0 unit SC ACHS [facility] PRN Reason: Protocol Last Admin: 05/28/17 12:21 Dose: 2 unit Lactobacillus Acidophilus (Bacid Acidophilus) 1 cap PO DAILY [facility] Last Admin: 05/28/17 10:41 Dose: 1 cap Loperamide HCl (Imodium) 2 mg PO QID PRN PRN Reason: Diarrhea Last Admin: 05/27/17 18:29 Dose: 2 mg Magnesium Oxide (Mag-Ox) 400 mg PO DAILY [facility] Last Admin: 05/28/17 10:41 Dose: 400 mg Multivitamins (Hexavitamin) 1 tab PO DAILY [facility] Last Admin: 05/28/17 10:41 Dose: 1 tab Ondansetron HCl (Zofran Tab) 4 mg PO Q8H PRN PRN Reason: Nausea/Vomiting Last Admin: 05/22/17 09:13 Dose: 4 mg Oxycodone/Acetaminophen (Percocet 5/325 Mg Tab) 1 tab PO Q6H PRN PRN Reason: Pain, severe (8-10) Stop: 05/29/17 11:33 Last Admin: 05/28/17 10:40 Dose: 1 tab Petrolatum (Desitin Original) 0 gm TOP TID PRN PRN Reason: Rash Last Admin: 05/25/17 01:00 Dose: 1 applic Tramadol HCl (Ultram) 25 mg PO TID PRN PRN Reason: Pain, Mild (1-3) Last Admin: 05/25/17 19:50 Dose: 25 mg Zinc Sulfate (Zinc Sulfate 220 Mg Cap) 220 mg PO DAILY [facility] Last Admin: 05/28/17 10:41 Dose: 220 mg - Labs Labs: 05/26/17 11:12 05/26/17 11:12 PT 11.9 SECONDS (9.7-12.2) 04/13/17 06:28 INR 1.1 04/13/17 06:28 APTT 27 SECONDS (21-34) 04/13/17 06:28 - Constitutional Appears: Cachectic, Chronically Ill - Head Exam Head Exam: NORMOCEPHALIC - Eye Exam Eye Exam: PERRL. absent: Scleral icterus - ENT Exam ENT Exam: Mucous Membranes Dry - Neck Exam Neck Exam: absent: Lymphadenopathy - Respiratory Exam Respiratory Exam: Decreased Breath Sounds - Cardiovascular Exam Cardiovascular Exam: REGULAR RHYTHM, +S1, +S2 - GI/Abdominal Exam GI & Abdominal Exam: Distended, Soft - Rectal Exam Rectal Exam: Deferred - Exam Exam: NORMAL INSPECTION - Extremities Exam Extremities Exam: absent: Pedal Edema - Back Exam Back Exam: absent: CVA tenderness (L), CVA tenderness (R) - Neurological Exam Neurological Exam: Alert, Awake, Oriented x3 - Psychiatric Exam Psychiatric exam: Normal Mood - Skin Skin Exam: Dry Assessment and Plan (1) Colonic fistula Status: Acute (2) Displacement of Mckeon catheter Status: Acute - Assessment and Plan (Free Text) Assessment: cont rx as discussed with DR Larry paige
[2017-05-28] MEDS: Tramadol 25 mg PO PRN (14:04)
[2017-05-29] MEDS: Sodium Chloride 0.9% 1,000 ML IV SCH ×2 (00:02→07:53)
[2017-05-29] MEDS: Tramadol 25 mg PO PRN ×2 (01:26→07:50)
[2017-05-29] MEDS: DiphenhydrAMINE 50 mg/ml Inj IVP SCH ×3 (01:27→17:49)
[2017-05-29] MEDS: Oxycodone/Acetaminophen 5/325 mg Tab PO PRN (06:11)
[2017-05-29] MEDS: (Novolin R) Insulin Human Regular 100 units/ml vial SC SCH ×3 (07:57→17:15)
[2017-05-29] MEDS: Lactobacillus Acidophilus 500 MU Cap PO SCH (10:22)
[2017-05-29] MEDS: Multiple Vitamins Tab PO SCH (10:22)
[2017-05-29] MEDS: Magnesium Oxide 400 mg Tab UD PO SCH (10:26)
[2017-05-29] MEDS ORDERED: Oxycodone/Acetaminophen 5/325 mg Tab PO PRN (11:49)
--- NOTE | 2017-05-29 12:18 | PCM.URO ---
Urology Progress Note - Subjective Abdominal Pain: No (no abd pain acc to son) Flank Pain: No Vomiting: No Hematuria: No Fever & Chills: No Other: Yesterday, R NT stopped draining. Then irrigated and now drain well - Objective Lab Results Last 24 Hours: Laboratory Results - last 24 hr 05/28/17 05/28/17 05/29/17 16:36 20:50 06:48 POC Glucose (mg/dL) 229 H 163 H 174 H 05/29/17 11:09 POC Glucose (mg/dL) 209 H Intake & Output: Intake & Output 05/28/17 05/29/17 05/29/17 18:59 06:59 18:59 Intake Total 500 Output Total 2450 Balance -1949 Intake: Intake, IV Amount 300 Right Upper arm 300 Oral 200 Output: Drainage 600 Abdomen 500 Right Back 100 Urine 550 Urethral (Gonzalez) 550 Stool 1300 Vital Signs: Vital Signs - 24 hr 05/28/17 05/28/17 05/29/17 16:22 23:30 07:43 Temperature 97.8 F 97.6 F 97.5 F L Pulse Rate 103 H 102 H 108 H Respiratory 20 20 20 Rate Blood Pressure 98/55 L 93/61 L 104/63 O2 Sat by Pulse 100 100 100 Oximetry - Physical Exam Abdominal Exam: Soft, Non-Tender, Non-Distended Back: No CVA Tenderness Urinary Catheter Draining Well: Yes (gonzalez and NT) Urine Color: Dark Rylee (cloudy urine) - Plan Additional Information: imp: urologically stable. Rec: cystogram. Poss trial of voiding. R nephrostogram and poss clamping and thereafter removal of NT
--- NOTE | 2017-05-29 14:18 | CP.PCM.PN ---
Subjective - Date & Time of Evaluation Date of Evaluation: 05/29/17 Time of Evaluation: 14:18 - Subjective Subjective: PATIENT WAS ADMITTED FOR ABDOMINAL ABCESS AND JIM CATHTER MISPLACEMENT; PATIENT IN BED, HER SON IS AT THE BEDSIDE AAOX3; WOUND VAC REMOVE; JIM STILL IN PLACE; NEPHROSTOMY TUBE IN SECURE; AND RIGHT SIDE ILEOSTOMY DRAINING AND NO SIGN OF LEAK NOTED AROUND IT; PATIENT DENIES PAIN, SOB OR CHEST PAIN Objective - Vital Signs/Intake and Output Vital Signs (last 24 hours): Temp Pulse Resp BP Pulse Ox 97.5 F L 108 H 20 104/63 100 05/29/17 07:43 05/29/17 07:43 05/29/17 07:43 05/29/17 07:43 05/29/17 07:43 Intake and Output: 05/29/17 05/29/17 06:59 18:59 Intake Total 500 Output Total 2450 Balance -1950 - Medications Medications: Current Medications Ascorbic Acid (Vitamin C 500 Mg Tab) 500 mg PO DAILY [facility] Last Admin: 05/29/17 10:21 Dose: 500 mg Diphenhydramine HCl (Benadryl) 25 mg IVP Q8H [facility] Last Admin: 05/29/17 10:23 Dose: 25 mg Enoxaparin Sodium (Lovenox) 40 mg SC Q12 [facility] Last Admin: 05/07/17 21:41 Dose: 40 mg Sodium Chloride (Sodium Chloride 0.9%) 1,000 mls @ 75 mls/hr IV .[id number] [facility] Last Admin: 05/29/17 07:53 Dose: 75 mls/hr Insulin Human Regular (Novolin R) 0 unit SC ACHS [facility] PRN Reason: Protocol Last Admin: 05/29/17 07:57 Dose: 2 unit Lactobacillus Acidophilus (Bacid Acidophilus) 1 cap PO DAILY [facility] Last Admin: 05/29/17 10:22 Dose: 1 cap Loperamide HCl (Imodium) 2 mg PO QID PRN PRN Reason: Diarrhea Last Admin: 05/28/17 19:45 Dose: 2 mg Magnesium Oxide (Mag-Ox) 400 mg PO DAILY [facility] Last Admin: 05/29/17 10:26 Dose: 400 mg Multivitamins (Hexavitamin) 1 tab PO DAILY [facility] Last Admin: 05/29/17 10:22 Dose: 1 tab Ondansetron HCl (Zofran Tab) 4 mg PO Q8H PRN PRN Reason: Nausea/Vomiting Last Admin: 05/22/17 09:13 Dose: 4 mg Oxycodone/Acetaminophen (Percocet 5/325 Mg Tab) 1 tab PO Q6H PRN PRN Reason: Pain, moderate (4-7) Stop: 06/01/17 11:50 Last Admin: 05/29/17 11:51 Dose: 1 tab Petrolatum (Desitin Original) 0 gm TOP TID PRN PRN Reason: Rash Last Admin: 05/25/17 01:00 Dose: 1 applic Tramadol HCl (Ultram) 25 mg PO TID PRN PRN Reason: Pain, Mild (1-3) Last Admin: 05/29/17 07:50 Dose: 25 mg Zinc Sulfate (Zinc Sulfate 220 Mg Cap) 220 mg PO DAILY [facility] Last Admin: 05/29/17 10:22 Dose: 220 mg - Labs Labs: 05/26/17 11:12 05/26/17 11:12 PT 11.9 SECONDS (9.7-12.2) 04/13/17 06:28 INR 1.1 04/13/17 06:28 APTT 27 SECONDS (21-34) 04/13/17 06:28 - Eye Exam Pupil Exam: NORMAL ACCOMODATION - Respiratory Exam Respiratory Exam: Clear to Ausculation Bilateral - Cardiovascular Exam Cardiovascular Exam: +S1, +S2 - GI/Abdominal Exam GI & Abdominal Exam: Normal Bowel Sounds Assessment and Plan - Assessment and Plan (Free Text) Assessment: A/P PATIEINT IS SEEN AND EXAMINED AT THE BEDSIDE; ADB INCISION HEAL NO SIGN OF REDNESS, PUS, OR INFECTION NOTED; LUNG SOUND CLEAR; NEPHROSTOMY AND JIM CATHETER DRAINING PROPERLY NO SIGN OF OBSTRUCTION NOTED PATIENT WILL BE ADMITTED UNDER Nadja ANTUNEZ SERVICE IN [facility] AND CALL DR Nadja ANTUNEZ FOR ADDITIONAL ADMITTED ORDER CONTINUE HOME MEDS PRE MED RECS CONTINUE ILEOSTOMY CARE, NEPHROSTOMY CARE, AND JIM PER DR Nadja ANTUNEZ AND FACILITY PROTOCOL FOLLOW UP WITH DR AUSTIN AND DR LUGO IN 1-2 WEEK FOR RE EVALUATION FOR FURTHER QUESTIONS CALL DR Nadja ANTUNEZ DISCUSS WITH DR Nadja ANTUNEZ WHO CLEAR FOR DISCHARGE AND ALSO DR AUSTIN AND DR LUGO CLEARED PATIENT FOR DC DISCUSS WITH PATIENT AND PATIENT' SON WHO AGREE WITH THE DISCHARGE PLANNING
[2017-05-29 16:08] VITALS: BP 93/53; PULSE 110; RESP 18; TEMP 98.6
--- NOTE | 2017-05-29 18:52 | CP.PCM.PN ---
Subjective - Date & Time of Evaluation Date of Evaluation: 05/29/17 Time of Evaluation: 09:00 - Subjective Subjective: clinically same Objective - Vital Signs/Intake and Output Vital Signs (last 24 hours): Temp Pulse Resp BP Pulse Ox 98.6 F 110 H 18 93/53 L 100 05/29/17 15:40 05/29/17 15:40 05/29/17 15:40 05/29/17 15:40 05/29/17 15:40 Intake and Output: 05/29/17 05/29/17 06:59 18:59 Intake Total 500 Output Total 2450 300 Balance -1950 -300 - Medications Medications: Current Medications Ascorbic Acid (Vitamin C 500 Mg Tab) 500 mg PO DAILY [facility] Last Admin: 05/29/17 10:21 Dose: 500 mg Diphenhydramine HCl (Benadryl) 25 mg IVP Q8H [facility] Last Admin: 05/29/17 17:49 Dose: 25 mg Enoxaparin Sodium (Lovenox) 40 mg SC Q12 [facility] Last Admin: 05/07/17 21:41 Dose: 40 mg Sodium Chloride (Sodium Chloride 0.9%) 1,000 mls @ 75 mls/hr IV .[id number] [facility] Last Admin: 05/29/17 07:53 Dose: 75 mls/hr Insulin Human Regular (Novolin R) 0 unit SC ACHS [facility] PRN Reason: Protocol Last Admin: 05/29/17 17:15 Dose: Not Given Lactobacillus Acidophilus (Bacid Acidophilus) 1 cap PO DAILY [facility] Last Admin: 05/29/17 10:22 Dose: 1 cap Loperamide HCl (Imodium) 2 mg PO QID PRN PRN Reason: Diarrhea Last Admin: 05/28/17 19:45 Dose: 2 mg Magnesium Oxide (Mag-Ox) 400 mg PO DAILY [facility] Last Admin: 05/29/17 10:26 Dose: 400 mg Multivitamins (Hexavitamin) 1 tab PO DAILY [facility] Last Admin: 05/29/17 10:22 Dose: 1 tab Ondansetron HCl (Zofran Tab) 4 mg PO Q8H PRN PRN Reason: Nausea/Vomiting Last Admin: 05/22/17 09:13 Dose: 4 mg Oxycodone/Acetaminophen (Percocet 5/325 Mg Tab) 1 tab PO Q6H PRN PRN Reason: Pain, moderate (4-7) Stop: 06/01/17 11:50 Last Admin: 05/29/17 11:51 Dose: 1 tab Petrolatum (Desitin Original) 0 gm TOP TID PRN PRN Reason: Rash Last Admin: 05/25/17 01:00 Dose: 1 applic Tramadol HCl (Ultram) 25 mg PO TID PRN PRN Reason: Pain, Mild (1-3) Last Admin: 05/29/17 07:50 Dose: 25 mg Zinc Sulfate (Zinc Sulfate 220 Mg Cap) 220 mg PO DAILY [facility] Last Admin: 05/29/17 10:22 Dose: 220 mg - Labs Labs: 05/26/17 11:12 05/26/17 11:12 PT 11.9 SECONDS (9.7-12.2) 04/13/17 06:28 INR 1.1 04/13/17 06:28 APTT 27 SECONDS (21-34) 04/13/17 06:28 Assessment and Plan (1) Colonic fistula Status: Acute (2) Displacement of Mckeon catheter Status: Acute
== END 2017-05-29 20:00 | DRG 567 ==
LOC: C.ER 15:55 → C.9E 19:54 → C.6T 22:28 → C.7T 04-08 09:25 → C.6T 04-08 09:28 → C.9I 04-12 17:25 → C.6T 04-17 01:52 → C.9I 04-17 02:44 → C.6T 04-17 23:07
PROVIDERS: ADMIT Internal Medicine Nephrology; ATTEND Internal Medicine Nephrology
PROC: 3E0G76Z Introduction of Nutritional Substance into Upper GI, Via Natural or Artificial Opening (ICD-10-PCS; 2017-04-04)
PROC: 0DH60UZ Insertion of Feeding Device into Stomach, Open Approach (ICD-10-PCS; 2017-04-12)
PROC: 0D1B0Z4 Bypass Ileum to Cutaneous, Open Approach (ICD-10-PCS; principal; 2017-04-16)
PROC: 0TQB0ZZ Repair Bladder, Open Approach (ICD-10-PCS; 2017-04-16)
PROC: 0DC Gastrointestinal System, Extirpation (ICD-10-PCS; 2017-04-16)
PROC: 0DTJ0ZZ Resection of Appendix, Open Approach (ICD-10-PCS; 2017-04-16)
PROC: 0DBB0ZZ Excision of Ileum, Open Approach (ICD-10-PCS; 2017-04-16)
PROC: 0DNW0ZZ Release Peritoneum, Open Approach (ICD-10-PCS; 2017-04-16)
PROC: 0W9G00Z Drainage of Peritoneal Cavity with Drainage Device, Open Approach (ICD-10-PCS; 2017-04-16)
PROC: 2W13X6Z Compression of Abdominal Wall using Pressure Dressing (ICD-10-PCS; 2017-04-16)
PROC: 0HB7XZZ Excision of Abdomen Skin, External Approach (ICD-10-PCS; 2017-05-03)
PROC: 0H97XZX Drainage of Abdomen Skin, External Approach, Diagnostic (ICD-10-PCS; 2017-05-03)
PROC: 0HB7XZZ Excision of Abdomen Skin, External Approach (ICD-10-PCS; 2017-05-08)
PROC: 0T25X0Z Change Drainage Device in Kidney, External Approach (ICD-10-PCS; 2017-05-24)
DX: N32.1 Vesicointestinal fistula (principal); E43 Unspecified severe protein-calorie malnutrition; R65.20 Severe sepsis without septic shock; K65.1 Peritoneal abscess; A41.9 Sepsis, unspecified organism; L89.159 Pressure ulcer of sacral region, unspecified stage; I96 Gangrene, not elsewhere classified; E11.622 Type 2 diabetes mellitus with other skin ulcer; E11.65 Type 2 diabetes mellitus with hyperglycemia; L02.216 Cutaneous abscess of umbilicus; L03.311 Cellulitis of abdominal wall; N13.30 Unspecified hydronephrosis; L76.82 Other postprocedural complications of skin and subcutaneous tissue; K94.12 Enterostomy infection; T18.4XXA Foreign body in colon, initial encounter; D64.9 Anemia, unspecified; T83.021A Displacement of indwelling urethral catheter, initial encounter; Y73.8 Miscellaneous gastroenterology and urology devices associated with adverse incidents, not elsewhere classified; E03.9 Hypothyroidism, unspecified; K66.0 Peritoneal adhesions (postprocedural) (postinfection); L29.9 Pruritus, unspecified; L98.499 Non-pressure chronic ulcer of skin of other sites with unspecified severity; M43.16 Spondylolisthesis, lumbar region; M48.00 Spinal stenosis, site unspecified; N73.9 Female pelvic inflammatory disease, unspecified; Z87.440 Personal history of urinary (tract) infections; R74.0 Nonspecific elevation of levels of transaminase and lactic acid dehydrogenase [LDH]; R79.89 Other specified abnormal findings of blood chemistry; Y83.8 Other surgical procedures as the cause of abnormal reaction of the patient, or of later complication, without mention of misadventure at the time of the procedure; K38.8 Other specified diseases of appendix

== ENCOUNTER 2017-06-02 21:01 | Emergency (ER) | payer MEDICAID ==
[2017-06-02] MEDS ORDERED: Sodium Chloride 0.9% 1,000 ML IV ONE (21:45)
[2017-06-02] MEDS ORDERED: Sodium Chloride 0.9% 500 ML IV ONE (21:45)
--- NOTE | 2017-06-02 21:52 | C.PDOC ---
History Of Present Illness 61 year old female sent in from retirement for a leaking ileostomy dressing. Patient is noted to be nonverbal and hypotensive. Chief Complaint (Nursing): Medical Clearance History Per: EMS History/Exam Limitations: no limitations Onset/Duration Of Symptoms: Hrs Current Symptoms Are (Timing): Still Present Recent travel outside of the [place]: No Past Medical History Reviewed: Historical Data, Nursing Documentation, Vital Signs Vital Signs: Last Vital Signs Temp 97 F L 06/02/17 21:10 Pulse 110 H 06/03/17 01:41 Resp 20 06/03/17 01:41 BP 100/62 06/03/17 01:41 Pulse Ox 97 06/03/17 01:59 - Medical History PMH: HTN, Hyperthyroidism - [facility] Procedures BYPASS ILEUM TO CUTANEOUS, OPEN APPROACH (04/04/17) CHANGE DRAINAGE DEVICE IN KIDNEY, EXTERNAL APPROACH (04/04/17) COMPRESSION OF ABDOMINAL WALL USING PRESSURE DRESSING (04/04/17) DRAINAGE OF ABDOMEN SKIN, EXTERNAL APPROACH, DIAGNOSTIC (04/04/17) DRAINAGE OF PERITONEAL CAVITY WITH DRAIN DEV, OPEN APPROACH (04/04/17) EXCISION OF ABDOMEN SKIN, EXTERNAL APPROACH (04/04/17) EXCISION OF ILEUM, OPEN APPROACH (04/04/17) EXTIRPATION OF MATTER FROM R LG INTEST, OPEN APPROACH (04/04/17) INSERTION OF FEEDING DEVICE INTO STOMACH, OPEN APPROACH (04/04/17) INTRODUCTION OF NUTRITIONAL INTO UP GI, VIA OPENING (04/04/17) RELEASE PERITONEUM, OPEN APPROACH (04/04/17) REPAIR BLADDER, OPEN APPROACH (04/04/17) RESECTION OF APPENDIX, OPEN APPROACH (04/04/17) Family History: States: Unknown Family Hx - Social History Hx Alcohol Use: No Hx Substance Use: No - Immunization History Hx Tetanus Toxoid Vaccination: No Hx Influenza Vaccination: No Hx Pneumococcal Vaccination: No Review Of Systems Review Of Systems: ROS cannot be obtained secondary to pt's inabilty to answer questions. Physical Exam - Physical Exam Appears: Non-toxic Skin: Normal Color, Warm, Dry Head: Atraumatic, Normacephalic Oral Mucosa: Moist Chest: Symmetrical, No Tenderness Cardiovascular: Rhythm Regular, Other (BP 88 systolic) Respiratory: Decreased Breath Sounds, No Rales, No Rhonchi, No Wheezing Gastrointestinal/Abdominal: Other (ileostomy with dressing and nephrostomy bag with cloudy urine) ED Course And Treatment - Laboratory Results Result Diagrams: 06/02/17 22:00 06/02/17 22:00 O2 Sat by Pulse Oximetry: 97 Pulse Ox Interpretation: Normal - Radiology CXR: Interpreted by Me, Viewed By Me CXR Interpretation: Yes: No Acute Disease Progress Note: Blood work, CXR, and urinalysis ordered. IV fluids administered. The ileostomy bag was changed by vice president regulatory . The patient is comfortable. - Physician Consult Information Time Consulting Physician Contacted: 23:42 Physician Contacted: Tonya Higgins (patient to be return to retirement after surgical consult about ileostomy dressing.) Outcome Of Conversation: discharge back to retirement. Disposition Discussed With Dr.: Tonya Higgins Counseled Patient/Family Regarding: Diagnosis - Disposition Disposition: TRANSF TO SNF Disposition Time: 23:11 Condition: STABLE Forms: [facility] (Greenlandic) - Clinical Impression Clinical Impression: Urinary tract infection, Ileostomy bag changed, Ileostomy care - Scribe Statement The provider has reviewed the documentation as recorded by the Scribsonu Levy All medical record entries made by the Scribe were at my direction and personally dictated by me. I have reviewed the chart and agree that the record accurately reflects my personal performance of the history, physical exam, medical decision making, and the department course for this patient. I have also personally directed, reviewed, and agree with the discharge instructions and disposition.
[2017-06-02] MEDS ORDERED: Sodium Chloride 0.9% 1,000 ML ONE (22:01)
[2017-06-02 22:07] LABS: BASO % 0.4 % (0.0-2.0); EOS # 0.3 K/uL (0.0-0.7); EOS % 2.5 % (0.0-4.0); HEMATOCRIT 29.1 % (34.0-47.0); LYMPH # 1.7 K/uL (1.0-4.3); LYMPH % 17.2 % (20.0-40.0); MEAN CORPUSCULAR HEMOGLOBIN 28.7 pg (27.0-31.0); MEAN CORPUSCULAR HGB CONC 33.4 g/dL (33.0-37.0); MEAN PLATELET VOLUME 8.8 fL (7.2-11.7); MONO # 0.7 K/uL (0.0-0.8); MONO % 7.3 % (0.0-10.0); RED CELL DISTRIBUTION WIDTH 14.2 % (11.5-14.5); WHITE BLOOD COUNT 9.9 K/uL (4.8-10.8)
[2017-06-02 22:21] LABS: ALB/GLOB RATIO 0.8 (1.0-2.1); BILIRUBIN,TOTAL 0.7 mg/dL (0.2-1.3); CALCIUM 8.9 mg/dl (8.6-10.4); POTASSIUM 4.8 mmol/L (3.6-5.2); TOTAL PROTEIN 7.7 g/dL (6.3-8.3)
[2017-06-02 23:01] LABS: RBC URINE 354 /hpf (0-3); URINE BILIRUBIN NEGATIVE (NEGATIVE); URINE BLOOD 2+ (NEGATIVE); URINE COLOR Yellow (YELLOW); URINE GLUCOSE (UA) NORMAL (Normal); URINE KETONE NEGATIVE (NEGATIVE); URINE LEUKOCYTE ESTERASE 2+ Leu/uL (Negative); URINE PROTEIN 2+ mg/dL (NEGATIVE); URINE UROBILINOGEN NORMAL mg/dL (0.2-1.0); WBC CLUMPS MANY /hpf; WBC URINE 4052 /hpf (0-5)
[2017-06-02] MEDS ORDERED: Ciprofloxacin 400mg/200ml D5W 400 MG/200 ML BAG IVPB STA (23:08)
[2017-06-02] MEDS ORDERED: Ciprofloxacin 400mg/200ml D5W 400 MG/200 ML BAG IVPB ONE (23:29)
--- NOTE | 2017-06-03 01:06 | CP.PCM.CON ---
History of Present Illness - History of Present Illness History of Present Illness: General Surgery- Dr. Cabral Ms. Higgins well known to our service presents to [facility] ER from skilled nursing for leakage from wafer and ostomy site. Patient denies fevers, chills, chest pain, shortness of breath, nausea, vomiting, numbness/tingling in extremities, headaches. Review of Systems - Review of Systems All systems: reviewed and no additional remarkable complaints except - Constitutional Constitutional: As Per HPI Past Patient History - Past Social History Smoking Status: Never Smoked - CARDIAC Hx Hypertension: Yes - ENDOCRINE/METABOLIC Hx Hyperthyroidism: Yes - MUSCULOSKELETAL/RHEUMATOLOGICAL Hx Falls: No - GASTROINTESTINAL Hx Colitis: Yes Hx Gastroesophageal Reflux: Yes - GENITOURINARY/GYNECOLOGICAL Hx Urinary Tract Infection: Yes - PSYCHIATRIC Hx Substance Use: No - SURGICAL HISTORY Hx Surgeries: Yes Other/Comment: Nephrostomy insertion - ANESTHESIA Hx Anesthesia: Yes Hx Anesthesia Reactions: No Meds Allergies/Adverse Reactions: Allergies Allergy/AdvReac Type Severity Reaction Status Date / Time No Known Allergies Allergy Verified 06/02/17 21:17 - Medications Medications: Current Medications Sodium Chloride (Sodium Chloride 0.9%) 1,000 mls @ 100 mls/hr IV .Q10H [facility] Stop: 06/03/17 07:44 Last Admin: 06/02/17 22:45 Dose: 100 mls/hr Physical Exam - Constitutional Appears: No Acute Distress, Cachectic, Chronically Ill - Head Exam Head Exam: ATRAUMATIC - Eye Exam Eye Exam: EOMI. absent: Scleral icterus - ENT Exam ENT Exam: Mucous Membranes Moist - Respiratory Exam Respiratory Exam: NORMAL BREATHING PATTERN. absent: Accessory Muscle Use, Respiratory Distress - Cardiovascular Exam Cardiovascular Exam: +S1, +S2. absent: Bradycardia, Tachycardia - GI/Abdominal Exam GI & Abdominal Exam: Soft. absent: Distended, Firm, Guarding, Hernia, Tenderness Additional comments: Ostomy pink and patent. there is slight skin maceration around wafer site. - Back Exam Additional comments: nephrostomy bag secure an in place on Right side w/ good output - Neurological Exam Neurological exam: Alert, Oriented x3 - Psychiatric Exam Psychiatric exam: Normal Affect - Skin Skin Exam: Mottled, Warm Results - Vital Signs Recent Vital Signs: Last Vital Signs Temp 97 F L 06/02/17 21:10 Pulse 101 H 06/02/17 21:45 Resp 14 06/02/17 21:45 BP 110/75 06/02/17 21:45 Pulse Ox 97 06/03/17 00:02 - Labs Result Diagrams: 06/02/17 22:00 06/02/17 22:00 Labs: Laboratory Results - last 24 hr 06/02/17 06/02/17 06/02/17 22:00 22:00 22:51 WBC 9.9 RBC 3.39 L Hgb 9.7 L Hct 29.1 L MCV 86.0 MCH 28.7 MCHC 33.4 RDW 14.2 Plt Count 291 MPV 8.8 Neut % (Auto) 72.6 Lymph % (Auto) 17.2 L [place] % (Auto) 7.3 Eos % (Auto) 2.5 Baso % (Auto) 0.4 Neut # 7.2 H Lymph # 1.7 Dundy # 0.7 Eos # 0.3 Baso # 0.0 Sodium 125 L Potassium 4.8 Chloride 93 L Carbon Dioxide 21 L Anion Gap 15 BUN 47 H Creatinine 1.3 H Est GFR ( Amer) 50 Est GFR (Non-Af Amer) 42 Random Glucose 60 L Calcium 8.9 Total Bilirubin 0.7 AST 26 ALT 39 Alkaline Phosphatase 252 H Total Protein 7.7 Albumin 3.3 L D Globulin 4.4 H Albumin/Globulin Ratio 0.8 L Urine Color Yellow Urine Clarity Turbid Urine pH 6.0 Ur Specific [place] 1.013 Urine Protein 2+ H Urine Glucose (UA) Normal Urine Ketones Negative Urine Blood 2+ H Urine Nitrate Negative Urine Bilirubin Negative Urine Urobilinogen Normal Ur Leukocyte Esterase 2+ H Urine WBC (Auto) 4052 H Urine RBC (Auto) 354 H Urine WBC Clumps (Auto) Many H Assessment & Plan - Assessment and Plan (Free Text) Assessment: 61F s/p colon resection and ileostomy formation, w/ leakage from ostomy bag Plan: - ostomy bag changed and reinforced at bedside - recommend high calorie diet - counselled the patient to try and sleep on her left side - cleared to be DC back to skilled nursing - no acute surgical intervention - will d/w Dr. Misha Haque PGY1
[2017-06-03 01:54] VITALS: O2SAT 97
[2017-06-03 03:34] VITALS: BP 104/75; PULSE 94; RESP 18; TEMP 97.9
--- NOTE | 2017-06-03 13:13 | RAD ---
HISTORY: hypotension COMPARISON: Comparison made with CT scan chest dated 04/24/2017 and chest radiograph dated 04/21/2017. Comparison also made with CT scan abdomen pelvis 05/18/2017 FINDINGS: Re- demonstrated is in situ right-sided PICC line with tip in the SVC. LUNGS: No active pulmonary disease. PLEURA: No significant pleural effusion identified, no pneumothorax apparent. CARDIOVASCULAR: Normal. OSSEOUS STRUCTURES: No significant abnormalities. VISUALIZED UPPER ABDOMEN: Re- demonstrated is in situ percutaneous right-sided percutaneous nephrostomy tube. OTHER FINDINGS: None. IMPRESSION: No infiltrates.
--- NOTE | 2017-06-05 09:00 | CARD ---
APPROVED REPORT EKG Measurement Heart [id number] <Conclusion> Sinus tachycardia Otherwise normal ECG
== END 2017-06-03 03:40 ==
LOC: C.ER 21:01 → C.9E 23:15 → UNDOADMIN 23:15 → C.ER 06-03 03:40
DX: K94.19 Other complications of enterostomy (principal); Y84.9 Medical procedure, unspecified as the cause of abnormal reaction of the patient, or of later complication, without mention of misadventure at the time of the procedure; N39.0 Urinary tract infection, site not specified
CPT/HCPCS: 71010; 80053; 81001; 85025; 87086; 96361; 96365; 99284; J0744; J7040

== ENCOUNTER 2017-06-05 16:32 | Inpatient (IN) | payer MEDICAID ==
[2017-06-05] MEDS ORDERED: Sodium Chloride 0.9% 1,000 ML IV ONE (17:40)
[2017-06-05 17:42] VITALS: BMI 17.6
[2017-06-05 17:53] LABS: BASO % 0.2 % (0.0-2.0); EOS # 0.2 K/uL (0.0-0.7); EOS % 1.7 % (0.0-4.0); HEMATOCRIT 31.5 % (34.0-47.0); LYMPH # 2.6 K/uL (1.0-4.3); LYMPH % 26.1 % (20.0-40.0); MEAN CELL VOLUME 86.9 fL (81.0-99.0); MEAN CORPUSCULAR HEMOGLOBIN 28.4 pg (27.0-31.0); MEAN CORPUSCULAR HGB CONC 32.7 g/dL (33.0-37.0); MEAN PLATELET VOLUME 8.5 fL (7.2-11.7); MONO # 0.9 K/uL (0.0-0.8); RED CELL DISTRIBUTION WIDTH 14.5 % (11.5-14.5); WHITE BLOOD COUNT 9.9 K/uL (4.8-10.8)
[2017-06-05 18:16] LABS: RBC URINE 215 /hpf (0-3); URINE BACTERIA MANY (<OCC); URINE BILIRUBIN NEGATIVE (NEGATIVE); URINE COLOR Yellow (YELLOW); URINE GLUCOSE (UA) NORMAL (Normal); URINE KETONE NEGATIVE (NEGATIVE); URINE PROTEIN 2+ mg/dL (NEGATIVE); URINE UROBILINOGEN NORMAL mg/dL (0.2-1.0); WBC CLUMPS MANY /hpf; WBC URINE 11054 /hpf (0-5)
[2017-06-05 18:18] LABS: URINE BLOOD 3+ (NEGATIVE); URINE LEUKOCYTE ESTERASE 3+ Leu/uL (Negative)
[2017-06-05] MEDS ORDERED: Piperacillin/Tazobact 3.375 gm 100 ML IV STA (18:35)
[2017-06-05 18:54] LABS: ALB/GLOB RATIO 0.6 (1.0-2.1); ALKALINE PHOSPHATASE 286 U/L (38-126); ALT/SGPT 52 U/L (9-52); AST/SGOT 35 U/L (14-36); BILIRUBIN,TOTAL 0.4 mg/dL (0.2-1.3); BLOOD UREA NITROGEN 20 mg/dL (7-17); CALCIUM 9.8 mg/dl (8.6-10.4); CARBON DIOXIDE 21 mmol/L (22-30); CHLORIDE 99 mmol/L (98-107); GFR AFRICAN-AMERICAN > 60; GLUCOSE,RANDOM 123 mg/dL (65-105); SODIUM 131 mmol/L (132-148); TOTAL PROTEIN 8.6 g/dL (6.3-8.3)
[2017-06-05] MEDS ORDERED: Piperacill/Tazo 3.375gm in Dex 3.375 GM/50 ML BAG IVPB ONE (19:00)
--- NOTE | 2017-06-05 19:16 | C.PDOC ---
History Of Present Illness 61 year old female is sent to the ED from her [facility] due to a leakage in her ileostomy bag. Patient was seen on 06/02/17 for the same complaints, and her ileostomy bag was replaced. Patient looks older than stated age, denies fever, nausea, vomit, CP, SOB, weakness, numbness. Time Seen by Provider: 06/05/17 17:36 Chief Complaint (Nursing): Abdominal Pain History Per: Patient, EMS History/Exam Limitations: no limitations Onset/Duration Of Symptoms: Days Current Symptoms Are (Timing): Still Present Location Of Pain/Discomfort: Diffuse Radiation Of Pain To:: None Quality Of Discomfort: "Pain" Associated Symptoms: denies: Fever, Chills, Vomiting, Diarrhea Recent travel outside of the [place]: No Additional History Per: Patient, EMS Abnormal Vaginal Bleeding: No Past Medical History Reviewed: Historical Data, Nursing Documentation, Vital Signs Vital Signs: Last Vital Signs Temp 98.7 F 06/05/17 21:00 Pulse 116 H 06/05/17 21:00 Resp 20 06/05/17 21:00 BP 101/65 06/05/17 21:50 Pulse Ox 95 06/05/17 21:00 - Medical History PMH: HTN, Hyperthyroidism Surgical History: No Surg Hx - [facility] Procedures BYPASS ILEUM TO CUTANEOUS, OPEN APPROACH (04/04/17) CHANGE DRAINAGE DEVICE IN KIDNEY, EXTERNAL APPROACH (04/04/17) COMPRESSION OF ABDOMINAL WALL USING PRESSURE DRESSING (04/04/17) DRAINAGE OF ABDOMEN SKIN, EXTERNAL APPROACH, DIAGNOSTIC (04/04/17) DRAINAGE OF PERITONEAL CAVITY WITH DRAIN DEV, OPEN APPROACH (04/04/17) EXCISION OF ABDOMEN SKIN, EXTERNAL APPROACH (04/04/17) EXCISION OF ILEUM, OPEN APPROACH (04/04/17) EXTIRPATION OF MATTER FROM R LG INTEST, OPEN APPROACH (04/04/17) INSERTION OF FEEDING DEVICE INTO STOMACH, OPEN APPROACH (04/04/17) INTRODUCTION OF NUTRITIONAL INTO UP GI, VIA OPENING (04/04/17) RELEASE PERITONEUM, OPEN APPROACH (04/04/17) REPAIR BLADDER, OPEN APPROACH (04/04/17) RESECTION OF APPENDIX, OPEN APPROACH (04/04/17) Family History: States: Unknown Family Hx - Social History Hx Alcohol Use: No Hx Substance Use: No - Immunization History Hx Tetanus Toxoid Vaccination: No Hx Influenza Vaccination: No Hx Pneumococcal Vaccination: No Review Of Systems Constitutional: Negative for: Fever, Chills Cardiovascular: Negative for: Chest Pain, Palpitations Respiratory: Negative for: Cough, Shortness of Breath Gastrointestinal: Negative for: Nausea, Vomiting, Abdominal Pain Genitourinary: Negative for: Dysuria Musculoskeletal: Negative for: Back Pain Skin: Negative for: Rash Neurological: Negative for: Weakness, Numbness Physical Exam - Physical Exam Appears: Other (Cachetic, older than stated age) Skin: Other (Tenting) Head: Atraumatic, Normacephalic Eye(s): bilateral: PERRL Nose: No Discharge, No Deformity Oral Mucosa: Dry Teeth: Edentulous Throat: Other (Dry) Neck: Normal ROM, Supple Chest: Symmetrical Cardiovascular: Rhythm Regular, No Murmur Respiratory: Normal Breath Sounds, No Accessory Muscle Use, No Rales, No Rhonchi , No Wheezing Gastrointestinal/Abdominal: Soft, Other ( ileostomy bag placed in RUQ, liquid stools) Extremity: No Pedal Edema, No Deformity, No Swelling Neurological/Psych: Oriented x3, Normal Speech, Normal Cognition ED Course And Treatment - Laboratory Results Result Diagrams: 06/05/17 17:49 06/05/17 17:49 Lab Interpretation: Abnormal (Ua 11,000 WBC's (chronic)) ECG: Interpreted By Pa ECG Rhythm: Sinus Tachycardia ECG Interpretation: Abnormal Rate From EC O2 Sat by Pulse Oximetry: 100 Pulse Ox Interpretation: Normal - Radiology CXR: Interpreted by Pa CXR Interpretation: Yes: No Acute Disease Progress Note: IFV, zosy, Surgical consult Reevaluation Time: 19:17 Reassessment Condition: Improved - Physician Consult Information Outcome Of Conversation: 1800: dw Dr. Billings- edy to consult. 1830: d/w Surgical Leonel post-consult- will further eval during admission. 1909: d/w Dr. Eliceo Higgins- PMD, ok to admit. Medical Decision Making Medical Decision Making: chronic uti, leaking iliostomy stoma, dehydration Disposition Doctor Will See Patient In The: Hospital Counseled Patient/Family Regarding: Studies Performed, Diagnosis - Disposition Disposition: HOSPITALIZED Disposition Time: 19:15 Condition: GOOD - POA Present On Arrival: Poor Glycemic Control - Clinical Impression Clinical Impression: Abdominal wall pain, Urinary tract infection, Ileostomy care, Dehydration - Scribe Statement The provider has reviewed the documentation as recorded by the Scribe Tino Wallace All medical record entries made by the Scribe were at my direction and personally dictated by me. I have reviewed the chart and agree that the record accurately reflects my personal performance of the history, physical exam, medical decision making, and the department course for this patient. I have also personally directed, reviewed, and agree with the discharge instructions and disposition.
[2017-06-05] MEDS ORDERED: Sodium Chloride 0.9% 1,000 ML IV STA (19:32)
--- NOTE | 2017-06-05 20:07 | CP.PCM.HP ---
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 Patient was last seen on June 02 for similar complaints and ileostomy bag was replaced. No C/Ofever, nausea, vomiting, chest pain, shortness of breath, abdominal pain, abdominal distention. Present on Admission - Present on Admission Any Indicators Present on Admission: No Past Patient History - Past Social History Smoking Status: Never Smoked - CARDIAC Hx Hypertension: Yes - ENDOCRINE/METABOLIC Hx Hyperthyroidism: Yes - MUSCULOSKELETAL/RHEUMATOLOGICAL Hx Falls: No - GASTROINTESTINAL Hx Gastrointestinal Disorders: Yes Hx Colitis: Yes Hx Gastroesophageal Reflux: Yes - GENITOURINARY/GYNECOLOGICAL Hx Urinary Tract Infection: Yes - PSYCHIATRIC Hx Substance Use: No - SURGICAL HISTORY Hx Surgeries: Yes Other/Comment: Nephrostomy insertion - ANESTHESIA Hx Anesthesia: Yes Hx Anesthesia Reactions: No Meds Allergies/Adverse Reactions: Allergies Allergy/AdvReac Type Severity Reaction Status Date / Time No Known Allergies Allergy Verified 06/02/17 21:17 Physical Exam - Constitutional Appears: Well - Head Exam Head Exam: ATRAUMATIC, NORMAL INSPECTION, NORMOCEPHALIC - Eye Exam Eye Exam: EOMI, Normal appearance, PERRL Pupil Exam: NORMAL ACCOMODATION, PERRL - ENT Exam ENT Exam: Mucous Membranes Moist, Normal Exam - Neck Exam Neck exam: Positive for: Normal Inspection - Respiratory Exam Respiratory Exam: Decreased Breath Sounds - Cardiovascular Exam Cardiovascular Exam: REGULAR RHYTHM, +S1, +S2 - GI/Abdominal Exam GI & Abdominal Exam: Diminished Bowel Sounds, Soft - Rectal Exam Rectal Exam: Deferred Results - Vital Signs Recent Vital Signs: Last Vital Signs Temp 100.5 F H 06/05/17 20:03 Pulse 130 H 06/05/17 20:03 Resp 22 06/05/17 20:03 BP 94/53 L 06/05/17 20:03 Pulse Ox 100 06/05/17 20:03 - Labs Result Diagrams: 06/08/17 07:14 06/08/17 07:14 Labs: Laboratory Results - last 24 hr 06/05/17 06/05/17 06/05/17 17:49 17:49 17:49 WBC 9.9 RBC 3.63 L Hgb 10.3 L Hct 31.5 L MCV 86.9 MCH 28.4 MCHC 32.7 L RDW 14.5 Plt Count 375 MPV 8.5 Neut % (Auto) 63.0 Lymph % (Auto) 26.1 [place] % (Auto) 9.0 Eos % (Auto) 1.7 Baso % (Auto) 0.2 Neut # 6.2 Lymph # 2.6 [place] # 0.9 H Eos # 0.2 Baso # 0.0 PT 11.3 INR 1.0 APTT 28 Sodium 131 L Potassium 4.0 Chloride 99 Carbon Dioxide 21 L Anion Gap 15 BUN 20 H Creatinine 0.8 Est GFR ( Amer) > 60 Est GFR (Non-Af Amer) > 60 Random Glucose 123 H Calcium 9.8 Total Bilirubin 0.4 AST 35 ALT 52 D Alkaline Phosphatase 286 H Troponin I < 0.0120 NT-Pro-B Natriuret Pep 236 Total Protein 8.6 H Albumin 3.3 L Globulin 5.3 H Albumin/Globulin Ratio 0.6 L Urine Color Urine Clarity Urine pH Ur Specific [place] Urine Protein Urine Glucose (UA) Urine Ketones Urine Blood Urine Nitrate Urine Bilirubin Urine Urobilinogen Ur Leukocyte Esterase Urine WBC (Auto) Urine RBC (Auto) Urine WBC Clumps (Auto) Urine Bacteria 06/05/17 18:06 WBC RBC Hgb Hct MCV MCH MCHC RDW Plt Count MPV Neut % (Auto) Lymph % (Auto) [place] % (Auto) Eos % (Auto) Baso % (Auto) Neut # Lymph # [place] # Eos # Baso # PT INR APTT Sodium Potassium Chloride Carbon Dioxide Anion Gap BUN Creatinine Est GFR ( Amer) Est GFR (Non-Af Amer) Random Glucose Calcium Total Bilirubin AST ALT Alkaline Phosphatase Troponin I NT-Pro-B Natriuret Pep Total Protein Albumin Globulin Albumin/Globulin Ratio Urine Color Yellow Urine Clarity Turbid Urine pH 6.0 Ur Specific [place] 1.012 Urine Protein 2+ H Urine Glucose (UA) Normal Urine Ketones Negative Urine Blood 3+ H Urine Nitrate Negative Urine Bilirubin Negative Urine Urobilinogen Normal Ur Leukocyte Esterase 3+ H Urine WBC (Auto) 48022 H Urine RBC (Auto) 215 H Urine WBC Clumps (Auto) Many H Urine Bacteria Many H
[2017-06-05] MEDS ORDERED: Sodium Chloride 0.9% 1,000 ML IV SCH (20:45)
[2017-06-05] MEDS ORDERED: Acetaminophen 650mg/20.3ml solution UD PO STA (20:48)
--- NOTE | 2017-06-05 20:52 | CP.PCM.CON ---
<Elbert Romero - Last Filed: 06/05/17 21:52> History of Present Illness - History of Present Illness History of Present Illness: Surgery: Dr. Cabral CC: Pain at ostomy site HPI: 61F well known to surgical service, initially presented in March w. 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 Early April pt went to OR for repair. Surgery consisted of exploratory laparotomy with small bowel resection x2, bladder repair, appendectomy, and ileostomy. Post-operative course was complicated by persistent leaking at the ostomy site despite multiple attempts of placing ostomy bag in various configurations. Pt presents from rehab facility w. same complaint of pain at ostomy site 2/2 to leakage. PMH: HTN, DMII, colitis PSH: see above Meds: MAR reviewed NKDA SOcial: No ETOH/tobacco/drugs Fhx: non-contributory Review of Systems - Review of Systems All systems: reviewed and no additional remarkable complaints except (HPI) Past Patient History - Past Social History Smoking Status: Never Smoked - CARDIAC Hx Hypertension: Yes - ENDOCRINE/METABOLIC Hx Hyperthyroidism: Yes - MUSCULOSKELETAL/RHEUMATOLOGICAL Hx Falls: No - GASTROINTESTINAL Hx Gastrointestinal Disorders: Yes Hx Colitis: Yes Hx Gastroesophageal Reflux: Yes - GENITOURINARY/GYNECOLOGICAL Hx Urinary Tract Infection: Yes - PSYCHIATRIC Hx Substance Use: No - SURGICAL HISTORY Hx Surgeries: Yes Other/Comment: Nephrostomy insertion - ANESTHESIA Hx Anesthesia: Yes Hx Anesthesia Reactions: No Meds Allergies/Adverse Reactions: Allergies Allergy/AdvReac Type Severity Reaction Status Date / Time No Known Allergies Allergy Verified 06/02/17 21:17 - Medications Medications: Current Medications Sodium Chloride (Sodium Chloride 0.9%) 1,000 mls @ 80 mls/hr IV .[id number] [facility] Oxycodone/Acetaminophen (Percocet 5/325 Mg Tab) 1 tab PO Q4H PRN PRN Reason: Pain, moderate (4-7) Stop: 06/08/17 20:47 Physical Exam - Constitutional Appears: Non-toxic, Unkempt, Older Than Stated Age, Cachectic, Chronically Ill - Head Exam Head Exam: ATRAUMATIC, NORMOCEPHALIC - Eye Exam Eye Exam: EOMI - ENT Exam ENT Exam: Mucous Membranes Moist - Neck Exam Neck exam: Positive for: Full Rom - Respiratory Exam Respiratory Exam: NORMAL BREATHING PATTERN. absent: Accessory Muscle Use, Respiratory Distress - Cardiovascular Exam Cardiovascular Exam: Tachycardia - GI/Abdominal Exam GI & Abdominal Exam: Soft. absent: Distended, Firm, Guarding, Rigid, Tenderness Additional comments: R side stoma, pink and patent - Extremities Exam Extremities exam: Negative for: calf tenderness, pedal edema - Neurological Exam Neurological exam: Alert, Oriented x3 - Skin Skin Exam: Dry, Warm Results - Vital Signs Recent Vital Signs: Last Vital Signs Temp 100.5 F H 06/05/17 20:03 Pulse 130 H 06/05/17 20:03 Resp 22 06/05/17 20:03 BP 94/53 L 06/05/17 20:03 Pulse Ox 100 06/05/17 20:29 - Labs Result Diagrams: 06/05/17 17:49 06/05/17 17:49 Labs: Laboratory Results - last 24 hr 06/05/17 06/05/17 06/05/17 17:49 17:49 17:49 WBC 9.9 RBC 3.63 L Hgb 10.3 L Hct 31.5 L MCV 86.9 MCH 28.4 MCHC 32.7 L RDW 14.5 Plt Count 375 MPV 8.5 Neut % (Auto) 63.0 Lymph % (Auto) 26.1 [place] % (Auto) 9.0 Eos % (Auto) 1.7 Baso % (Auto) 0.2 Neut # 6.2 Lymph # 2.6 [place] # 0.9 H Eos # 0.2 Baso # 0.0 PT 11.3 INR 1.0 APTT 28 Sodium 131 L Potassium 4.0 Chloride 99 Carbon Dioxide 21 L Anion Gap 15 BUN 20 H Creatinine 0.8 Est GFR ( Amer) > 60 Est GFR (Non-Af Amer) > 60 Random Glucose 123 H Calcium 9.8 Total Bilirubin 0.4 AST 35 ALT 52 D Alkaline Phosphatase 286 H Troponin I < 0.0120 NT-Pro-B Natriuret Pep 236 Total Protein 8.6 H Albumin 3.3 L Globulin 5.3 H Albumin/Globulin Ratio 0.6 L Urine Color Urine Clarity Urine pH Ur Specific [place] Urine Protein Urine Glucose (UA) Urine Ketones Urine Blood Urine Nitrate Urine Bilirubin Urine Urobilinogen Ur Leukocyte Esterase Urine WBC (Auto) Urine RBC (Auto) Urine WBC Clumps (Auto) Urine Bacteria 06/05/17 18:06 WBC RBC Hgb Hct MCV MCH MCHC RDW Plt Count MPV Neut % (Auto) Lymph % (Auto) [place] % (Auto) Eos % (Auto) Baso % (Auto) Neut # Lymph # [place] # Eos # Baso # PT INR APTT Sodium Potassium Chloride Carbon Dioxide Anion Gap BUN Creatinine Est GFR ( Amer) Est GFR (Non-Af Amer) Random Glucose Calcium Total Bilirubin AST ALT Alkaline Phosphatase Troponin I NT-Pro-B Natriuret Pep Total Protein Albumin Globulin Albumin/Globulin Ratio Urine Color Yellow Urine Clarity Turbid Urine pH 6.0 Ur Specific [place] 1.012 Urine Protein 2+ H Urine Glucose (UA) Normal Urine Ketones Negative Urine Blood 3+ H Urine Nitrate Negative Urine Bilirubin Negative Urine Urobilinogen Normal Ur Leukocyte Esterase 3+ H Urine WBC (Auto) 35139 H Urine RBC (Auto) 215 H Urine WBC Clumps (Auto) Many H Urine Bacteria Many H Assessment & Plan - Assessment and Plan (Free Text) Assessment: 61F w. pain at stoma site 2/2 leakage -local wound care -ostomy nurse consulted -pain management -d/w attending Heather PGY3 <Sumeet Cabral B - Last Filed: 06/09/17 23:16> Meds - Medications Medications: Current Medications Acetaminophen (Tylenol 325mg Tab) 650 mg PO Q4 PRN PRN Reason: Fever >100.4 F Last Admin: 06/09/17 15:28 Dose: 650 mg Ascorbic Acid (Vitamin C 500 Mg Tab) 500 mg PO DAILY [facility] Last Admin: 06/09/17 11:33 Dose: 500 mg Dronabinol (Marinol) 5 mg PO BID [facility] Last Admin: 06/09/17 21:16 Dose: Not Given Enoxaparin Sodium (Lovenox) 30 mg SC DAILY [facility] Last Admin: 06/09/17 11:31 Dose: 30 mg Fentanyl (Duragesic) 1 patch TD Q72 [facility] Tigecycline 50 mg/ Dextrose 50 mls @ 100 mls/hr IVPB Q12H [facility] Last Admin: 06/09/17 22:29 Dose: 100 mls/hr Meropenem 1 gm/ Sodium (Chloride) 100 mls @ 100 mls/hr IVPB Q8H [facility] Last Admin: 06/09/17 21:09 Dose: 100 mls/hr Insulin Aspart (Novolog) 0 unit SC [facility] PRN Reason: Protocol Last Admin: 06/09/17 22:25 Dose: Not Given Lactobacillus Acidophilus (Bacid Acidophilus) 1 cap PO DAILY [facility] Last Admin: 06/09/17 11:33 Dose: 1 cap Loperamide HCl (Imodium) 2 mg PO Q4 PRN PRN Reason: Diarrhea Last Admin: 06/08/17 17:54 Dose: 2 mg Magnesium Hydroxide (Milk Of Magnesia) 30 ml PO DAILY PRN PRN Reason: Constipation Mupirocin (Bactroban Ointment) 1 gm TOP DAILY [facility] Last Admin: 06/08/17 11:36 Dose: 1 gm Mupirocin (Bactroban Ointment) 1 gm TOP DAILY@1800 [facility] Last Admin: 06/09/17 21:15 Dose: 1 appl Oxycodone/Acetaminophen (Percocet 5/325 Mg Tab) 1 tab PO Q8H PRN PRN Reason: Pain, moderate (4-7) Stop: 06/12/17 16:21 Last Admin: 06/09/17 16:29 Dose: 1 tab Silver Sulfadiazine (Silvadene 1% 20 Gm) 0 ea TOP QSHIFT [facility] Last Admin: 06/09/17 21:17 Dose: 1 unit Zolpidem Tartrate (Ambien) 5 mg PO HS PRN PRN Reason: Insomnia Results - Vital Signs Recent Vital Signs: Last Vital Signs Temp 98 F 06/09/17 15:00 Pulse 94 H 06/09/17 15:00 Resp 20 06/09/17 15:00 BP 121/81 06/09/17 15:00 Pulse Ox 100 06/09/17 15:00 - Labs Result Diagrams: 06/09/17 06:57 06/09/17 06:57 Labs: Laboratory Results - last 24 hr 06/09/17 06/09/17 06/09/17 06:57 06:57 07:16 WBC 5.3 RBC 2.91 L Hgb 8.3 L Hct 25.0 L MCV 85.9 MCH 28.5 MCHC 33.2 RDW 13.9 Plt Count 300 MPV 8.6 Neut % (Auto) 66.1 Lymph % (Auto) 18.8 L [place] % (Auto) 8.6 Eos % (Auto) 6.2 H Baso % (Auto) 0.3 Neut # 3.5 Lymph # 1.0 [place] # 0.5 Eos # 0.3 Baso # 0.0 Sodium 134 Potassium 3.9 Chloride 108 H Carbon Dioxide 22 Anion Gap 9 L BUN 25 H Creatinine 0.5 L Est GFR ( Amer) > 60 Est GFR (Non-Af Amer) > 60 POC Glucose (mg/dL) 105 Random Glucose 121 H Calcium 7.8 L Phosphorus 2.8 Magnesium 1.5 L Total Bilirubin 0.4 AST 18 ALT 33 Alkaline Phosphatase 161 H Total Protein 5.3 L Albumin 2.1 L Globulin 3.2 Albumin/Globulin Ratio 0.6 L 06/09/17 06/09/17 06/09/17 11:23 16:22 21:15 WBC RBC Hgb Hct MCV MCH MCHC RDW Plt Count MPV Neut % (Auto) Lymph % (Auto) [place] % (Auto) Eos % (Auto) Baso % (Auto) Neut # Lymph # [place] # Eos # Baso # Sodium Potassium Chloride Carbon Dioxide Anion Gap BUN Creatinine Est GFR ( Amer) Est GFR (Non-Af Amer) POC Glucose (mg/dL) 185 H 147 H 250 H Random Glucose Calcium Phosphorus Magnesium Total Bilirubin AST ALT Alkaline Phosphatase Total Protein Albumin Globulin Albumin/Globulin Ratio Attending/Attestation - Attestation I have personally seen and examined this patient.: Yes I have fully participated in the care of the patient.: Yes I have reviewed all pertinent clinical information: Yes Notes (Text): Pt was seen and examined at bedside Agree with above note and assessment Pt with leaking ileostomy site with severe erythema Abdomen is Mild tender. Repeat labs in am c.w current mx Wound care consult OOB to walk CT cystogram Plan d/w pt in detail Risk and benefit explained in detail.
[2017-06-05] MEDS: Oxycodone/Acetaminophen 5/325 mg Tab PO PRN (21:51)
[2017-06-05] MEDS ORDERED: Oxycodone/Acetaminophen 5/325 mg Tab PO PRN (22:36)
[2017-06-05] MEDS ORDERED: Magnesium Hydroxide Susp 30 ml UD PO PRN (22:36)
[2017-06-06] MEDS ORDERED: Sodium Chloride 0.9% 500 ML IV ONE ×2 (00:19→00:52)
[2017-06-06] MEDS: Sodium Chloride 0.9% 1,000 ML IV SCH ×4 (00:53→21:43)
[2017-06-06 01:35] LABS: VENOUS BLOOD GAS BASE EXCESS -7.1 mmol/L (0.0-2.0); VENOUS BLOOD GAS PCO2 29 mmHg (40-60); VENOUS BLOOD PH 7.37 (7.32-7.43)
--- NOTE | 2017-06-06 03:36 | PCM.RRT ---
<Lauren Delgadillo - Last Filed: 06/06/17 03:33> THREADER Nurses Assessment - Situation Date: 06/05/17 Time THREADER was called: 23:50 THREADER Responder Arrival Time:: 23:43 THREADER Location:: Med/Oncology THREADER Reason for Call: Hypotension THREADER Called By: RN - IV IV Inserted during THREADER?: No - Respiratory THREADER Delivery Method: Room Air Was the Patient Ventilated with Bag/Mask 100% O2?: No Secretions Suctioned?: No Was the Patient Intubated?: No Was the Patient Placed on a Ventilator?: No - Ventilator Settings Ventilator Respiratory Rate Settin Ventilator Tidal Volume Settin - Diagnostic Test Ordered EKG: No Chest X-Ray: No CT Scan: No CPR started during THREADER?: No - Vital Signs Vital Signs: Rapid Response Vital Sign Blood Pressure 74/43 Pulse Rate 116 Respiratory Rate 18 Temperature 99 F Oxygen Saturation 98 - Sepsis Screen Part 1 Sepsis Screen Part 1: Hypotensive - Time THREADER Ended Time THREADER Ended: 00:20 - Vital Signs at end of THREADER Vital Signs at end of THREADER: Rapid Response End Vital Sign Blood Pressure 87/50 Pulse Rate 112 Respiratory Rate 18 Temperature 99 F O2 Sat by Pulse Oximetry 96 I.Reason for THREADER - A) Acute Change in Patient: (Select all that apply): Acute change in SBP below (74/43) - Respiratory Oxygen Delivery Method: Room Air - Constitutional Appears: Non-toxic, No Acute Distress, Cachectic, Chronically Ill - Head Head Exam: ATRAUMATIC, NORMAL INSPECTION, NORMOCEPHALIC - Eyes Eye Exam: EOMI, Normal appearance - Respiratory Exam Respiratory Exam: Clear to Ausculation Bilateral, NORMAL BREATHING PATTERN. absent: Rhonchi, Wheezes, Respiratory Distress - Cardiovascular Exam Cardiovascular Exam: Tachycardia, +S1, +S2 - GI/Abdominal Exam GI & Abdominal Exam: Soft, Tenderness, Normal Bowel Sounds - Neurological Exam Neurological Exam: Alert, Awake, Oriented x3 - Extremities Exam Extremities Exam: Normal Inspection. absent: Pedal Edema Plan - Assessment of Findings&Treatment Plan Patient bp dropped to 74/43 with heart rate in 120s. Patient given 500ml iv bolus of NS. Patient in NAD. <Randall Lambert - Last Filed: 06/06/17 07:03> THREADER Nurses Assessment - Vital Signs Vital Signs: Rapid Response Vital Sign Blood Pressure 74/43 Pulse Rate 116 Respiratory Rate 18 Temperature 99 F Oxygen Saturation 98 - Vital Signs at end of THREADER Vital Signs at end of THREADER: Rapid Response End Vital Sign Blood Pressure 87/50 Pulse Rate 112 Respiratory Rate 18 Temperature 99 F O2 Sat by Pulse Oximetry 96 Attending/Attestation - Attestation I have personally seen and examined this patient.: Yes I have fully participated in the care of the patient.: Yes I have reviewed all pertinent clinical information, including history, physical exam and plan: Yes Notes (Text): Clinically not septic, but dehydrated, has liquid stool in illeostomy bag, has clear urine in nephrostomy, cloudy urine in the gonzalez, given 500ml bolus, d/w surgery resident for plan.
[2017-06-06] MEDS ORDERED: DIMETHICONE APPL TP SCH (06:00)
[2017-06-06] MEDS ORDERED: [UNRECOGNIZED DRUG - SUPPLY] TP SCH (06:00)
[2017-06-06] MEDS: Silver Sulfadiazine 1% Cream (20 gm) TOP SCH ×3 (06:27→21:44)
[2017-06-06] MEDS: (Novolog) Insulin Aspart, Recombinant 100 u/ml 10 ml vial SC SCH ×4 (08:09→22:03)
[2017-06-06] MEDS: Enoxaparin 30 mg Syringe SC SCH (09:20)
[2017-06-06] MEDS: Lactobacillus Acidophilus 500 MU Cap PO SCH (09:21)
[2017-06-06] MEDS ORDERED: Iodixanol 320 MG/ML 100 ML BOTTLE IV ONE (09:49)
--- NOTE | 2017-06-06 09:56 | CP.PCM.PN ---
<Vikki Sims - Last Filed: 06/06/17 09:53> Subjective - Date & Time of Evaluation Date of Evaluation: 06/06/17 Time of Evaluation: 07:00 - Subjective Subjective: GENERAL SURGERY PROGRESS NOTE FOR DR. CABRAL Patient seen and examined at bedside. 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 Patient got 500cc bolus x2. Patient had 1 L bolus x2 in ED. Total of 3L bolus last night. Ostomy continues to have issues leaking. Objective - Vital Signs/Intake and Output Vital Signs (last 24 hours): Temp Pulse Resp BP Pulse Ox 99.9 F H 136 H 20 85/55 L 100 06/06/17 08:27 06/06/17 08:27 06/06/17 08:27 06/06/17 08:27 06/06/17 08:27 Intake and Output: 06/06/17 06/06/17 06:59 18:59 Intake Total 1810 Output Total 1890 Balance -80 - Medications Medications: Current Medications Acetaminophen (Tylenol 325mg Tab) 650 mg PO Q4 PRN PRN Reason: Fever >100.4 F Ascorbic Acid (Vitamin C 500 Mg Tab) 500 mg PO DAILY [facility] Last Admin: 06/06/17 09:25 Dose: 500 mg Enoxaparin Sodium (Lovenox) 30 mg SC DAILY [facility] Last Admin: 06/06/17 09:20 Dose: 30 mg Fentanyl (Duragesic) 1 patch TD Q72 [facility] Home Med (Amino Acids/Protein Hydrolys [Pre Protein 20 Liquid]) 30 ml PO DAILY [facility] Home Med (Dimethicone [Cavilon Durable Barrier]) 1 appl TP QSHIFT [facility] Home Med (Ostomy Supply [Stomahesive Protective]) 1 appl TP QSHIFT [facility] Sodium Chloride (Sodium Chloride 0.9%) 1,000 mls @ 100 mls/hr IV .Q10H [facility] Last Admin: 06/06/17 01:30 Dose: 100 mls/hr Meropenem 1 gm/ Sodium (Chloride) 50 mls @ 100 mls/hr IVPB Q8H [facility] Tigecycline 100 mg/ Sodium (Chloride) 100 mls @ 100 mls/hr IVPB ONCE ONE Stop: 06/06/17 14:59 Tigecycline 50 mg/ Dextrose 100 mls @ 100 mls/hr IVPB Q12H [facility] Insulin Aspart (Novolog) 0 unit SC ACHS [facility] PRN Reason: Protocol Last Admin: 06/06/17 08:09 Dose: Not Given Lactobacillus Acidophilus (Bacid Acidophilus) 1 cap PO DAILY [facility] Last Admin: 06/06/17 09:21 Dose: 1 cap Loperamide HCl (Imodium) 2 mg PO Q4 PRN PRN Reason: Diarrhea Magnesium Hydroxide (Milk Of Magnesia) 30 ml PO DAILY PRN PRN Reason: Constipation Mupirocin (Bactroban Ointment) 1 gm TOP DAILY [facility] Last Admin: 06/06/17 09:25 Dose: 1 gm Mupirocin (Bactroban Ointment) 1 gm TOP DAILY@1800 [facility] Oxycodone/Acetaminophen (Percocet 5/325 Mg Tab) 1 tab PO Q4H PRN PRN Reason: Pain, moderate (4-7) Stop: 06/08/17 20:47 Last Admin: 06/05/17 21:51 Dose: 1 tab Silver Sulfadiazine (Silvadene 1% 20 Gm) 0 ea TOP QSHIFT [facility] Last Admin: 06/06/17 06:27 Dose: 1 unit - Labs Labs: 06/05/17 17:49 06/05/17 17:49 PT 11.3 SECONDS (9.7-12.2) 06/05/17 17:49 INR 1.0 06/05/17 17:49 APTT 28 SECONDS (21-34) 06/05/17 17:49 - Constitutional Appears: Non-toxic, No Acute Distress, Older Than Stated Age, Chronically Ill - Head Exam Head Exam: ATRAUMATIC, NORMAL INSPECTION - Respiratory Exam Respiratory Exam: NORMAL BREATHING PATTERN. absent: Respiratory Distress - Cardiovascular Exam Cardiovascular Exam: Tachycardia, +S1, +S2 - GI/Abdominal Exam GI & Abdominal Exam: Soft. absent: Distended, Firm, Guarding, Rigid, Tenderness , Rebound Additional comments: Left ileostomy with liquid stool - Exam Additional comments: [place] with cloudy urine - Back Exam Additional comments: Right nephrostomy - Neurological Exam Neurological Exam: Alert, Awake - Psychiatric Exam Psychiatric exam: Normal Affect, Normal Mood - Skin Skin Exam: Dry, Warm Assessment and Plan - Assessment and Plan (Free Text) Assessment: 61yo F s/p Ex lap, small bowel resection, bladder repair, appendectomy, ileostomy POD#55 and s/p right nephrostomy tube exchange by IR. Now readmitted with dehydration, UTI, and leaking ileostomy - Wound care consulted for ileostomy - Will FU blood and urine cx - IV Abx per ID - CT urogram ordered - Discussed plan with Dr. Misha Sims PGY-3 <Sumeet Cabral - Last Filed: 06/09/17 23:22> Objective - Vital Signs/Intake and Output Vital Signs (last 24 hours): Temp Pulse Resp BP Pulse Ox 98 F 94 H 20 121/81 100 06/09/17 15:00 06/09/17 15:00 06/09/17 15:00 06/09/17 15:00 06/09/17 15:00 Intake and Output: 06/09/17 06/10/17 18:59 06:59 Intake Total 1980 Output Total 2950 Balance -970 - Medications Medications: Current Medications Acetaminophen (Tylenol 325mg Tab) 650 mg PO Q4 PRN PRN Reason: Fever >100.4 F Last Admin: 06/09/17 15:28 Dose: 650 mg Ascorbic Acid (Vitamin C 500 Mg Tab) 500 mg PO DAILY [facility] Last Admin: 06/09/17 11:33 Dose: 500 mg Dronabinol (Marinol) 5 mg PO BID [facility] Last Admin: 06/09/17 21:16 Dose: Not Given Enoxaparin Sodium (Lovenox) 30 mg SC DAILY [facility] Last Admin: 06/09/17 11:31 Dose: 30 mg Fentanyl (Duragesic) 1 patch TD Q72 [facility] Tigecycline 50 mg/ Dextrose 50 mls @ 100 mls/hr IVPB Q12H [facility] Last Admin: 06/09/17 22:29 Dose: 100 mls/hr Meropenem 1 gm/ Sodium (Chloride) 100 mls @ 100 mls/hr IVPB Q8H [facility] Last Admin: 06/09/17 21:09 Dose: 100 mls/hr Insulin Aspart (Novolog) 0 unit SC ACHS [facility] PRN Reason: Protocol Last Admin: 06/09/17 22:25 Dose: Not Given Lactobacillus Acidophilus (Bacid Acidophilus) 1 cap PO DAILY [facility] Last Admin: 06/09/17 11:33 Dose: 1 cap Loperamide HCl (Imodium) 2 mg PO Q4 PRN PRN Reason: Diarrhea Last Admin: 06/08/17 17:54 Dose: 2 mg Magnesium Hydroxide (Milk Of Magnesia) 30 ml PO DAILY PRN PRN Reason: Constipation Mupirocin (Bactroban Ointment) 1 gm TOP DAILY [facility] Last Admin: 06/08/17 11:36 Dose: 1 gm Mupirocin (Bactroban Ointment) 1 gm TOP DAILY@1800 [facility] Last Admin: 06/09/17 21:15 Dose: 1 appl Oxycodone/Acetaminophen (Percocet 5/325 Mg Tab) 1 tab PO Q8H PRN PRN Reason: Pain, moderate (4-7) Stop: 06/12/17 16:21 Last Admin: 06/09/17 16:29 Dose: 1 tab Silver Sulfadiazine (Silvadene 1% 20 Gm) 0 ea TOP QSHIFT [facility] Last Admin: 06/09/17 21:17 Dose: 1 unit Zolpidem Tartrate (Ambien) 5 mg PO HS PRN PRN Reason: Insomnia - Labs Labs: 06/09/17 06:57 06/09/17 06:57 PT 11.3 SECONDS (9.7-12.2) 06/05/17 17:49 INR 1.0 06/05/17 17:49 APTT 28 SECONDS (21-34) 06/05/17 17:49 Attending/Attestation - Attestation I have personally seen and examined this patient.: Yes I have fully participated in the care of the patient.: Yes I have reviewed all pertinent clinical information, including history, physical exam and plan: Yes Notes (Text): Pt was seen and examined at bedside Agree with above note and assessment Pt with abdominal pain and leaking ileostomy tube Wound care Stoma adhesive paste locally Plan d/w nurse in detail Risk and benefit explained in detail.
[2017-06-06] MEDS ORDERED: AMINO ACIDS PO SCH (10:00)
[2017-06-06] MEDS ORDERED: PROTEIN HYDROLYS PO SCH (10:00)
--- NOTE | 2017-06-06 10:19 | RAD ---
PROCEDURE: CHEST RADIOGRAPH, 1 VIEW HISTORY: SOB COMPARISON: Chest radiograph dated 06/02/2017. FINDINGS: LUNGS: Clear. PLEURA: No pneumothorax or pleural fluid seen. CARDIOVASCULAR: Atherosclerotic aortic calcifications. Cardiomediastinal silhouette within normal limits. OSSEOUS STRUCTURES: No significant abnormalities. VISUALIZED UPPER ABDOMEN: Normal. OTHER FINDINGS: Right upper extremity PICC, unchanged. Partially imaged right nephrostomy tube redemonstrated. IMPRESSION: No active disease.
[2017-06-06] MEDS ORDERED: Meropenem 1 GM in Sodium Chloride 0.9% 100 ML IVPB SCH (11:00)
--- NOTE | 2017-06-06 12:02 | CT ---
PROCEDURE: CT Abdomen and Pelvis with and without contrast (CT urogram) HISTORY: eval COMPARISON: CT scan of the abdomen pelvis dated 05/18/2017. TECHNIQUE: Images were obtained from the lower thorax to upper thighs pre and post contrast (95 seconds, 10 minute, 20 minute and 30 minutes delay) Contrast dose: 100 mL Visipaque 320 Radiation dose: Total exam DLP = 1109.9 mGy-cm. This CT exam was performed using one or more of the following dose reduction techniques: Automated exposure control, adjustment of the mA and/or kV according to patient size, and/or use of iterative reconstruction technique. FINDINGS: LOWER THORAX: Normal heart size. Coronary arterial and valvular calcifications. Bibasilar dependent atelectasis. No focal consolidation or pleural effusion. LIVER: Unremarkable. No gross lesion or ductal dilatation. GALLBLADDER AND BILE DUCTS: Unremarkable. PANCREAS: Unremarkable. No gross lesion or ductal dilatation. SPLEEN: Unremarkable. ADRENALS: Unremarkable. No mass. KIDNEYS AND URETERS: Right percutaneous nephrostomy redemonstrated. Moderate right hydroureter. Stable left renal atrophy. Severe left hydroureteronephrosis, worse. 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 Foci of gas again seen in both genitourinary tracts. Slightly delayed excretion of contrast by left kidney relative to right kidney. No evidence of genitourinary tract mass. VASCULATURE: Unremarkable. No aortic aneurysm. BOWEL: Right lower quadrant ileostomy redemonstrated. Postsurgical changes involving the large and small bowel, unchanged. Large bowel collapsed. Cecal, proximal ascending and rectosigmoid colonic wall thickening. Minimal high density material within the rectum. No obstruction. APPENDIX: Status post appendectomy. PERITONEUM: Edema and hazy change within the mesial rectal fascia. No free fluid. No free air. LYMPH NODES: Unremarkable. No enlarged lymph nodes. BLADDER: Stable irregular contour. Mckeon catheter. Small amount of air anteriorly. REPRODUCTIVE: Not visualized. BONES: Stable degenerative changes. Grade 1 anterolisthesis of L4 on L5. OTHER FINDINGS: None. IMPRESSION: Grossly stable complex postoperative appearance of the abdomen pelvis with multiple bowel surgeries including right lower quadrant ostomy. Stable irregular appearance of the urinary bladder containing air and fluid around a Mckeon catheter. Right percutaneous nephrostomy tube, unchanged. Worsening, now severe left hydroureteronephrosis. Slightly delayed excretion of intravenous contrast by left kidney relative to right kidney. No obvious evidence of colovesicular fistula, although evaluation is limited due to nature of the exam. Additional stable findings as above. Findings conveyed to surgical brace maker, Dr. Romero, by Dr. Ramirez at 11:30 a.m. on 06/06/2017.
[2017-06-06] MEDS: Oxycodone/Acetaminophen 5/325 mg Tab PO PRN (12:12)
--- NOTE | 2017-06-06 16:03 | CP.PCM.PN ---
Subjective - Date & Time of Evaluation Date of Evaluation: 06/06/17 Time of Evaluation: 09:00 - Subjective Subjective: clinically same Objective - Vital Signs/Intake and Output Vital Signs (last 24 hours): Temp Pulse Resp BP Pulse Ox 98.2 F 122 H 20 97/58 L 100 06/06/17 13:36 06/06/17 13:36 06/06/17 13:36 06/06/17 13:36 06/06/17 13:36 Intake and Output: 06/06/17 06/06/17 06:59 18:59 Intake Total 1810 1160 Output Total 1890 1475 Balance -80 -315 - Medications Medications: Current Medications Acetaminophen (Tylenol 325mg Tab) 650 mg PO Q4 PRN PRN Reason: Fever >100.4 F Ascorbic Acid (Vitamin C 500 Mg Tab) 500 mg PO DAILY [facility] Last Admin: 06/06/17 09:25 Dose: 500 mg Enoxaparin Sodium (Lovenox) 30 mg SC DAILY [facility] Last Admin: 06/06/17 09:20 Dose: 30 mg Fentanyl (Duragesic) 1 patch TD Q72 [facility] Sodium Chloride (Sodium Chloride 0.9%) 1,000 mls @ 100 mls/hr IV .Q10H [facility] Last Admin: 06/06/17 12:06 Dose: Not Given Tigecycline 50 mg/ Dextrose 50 mls @ 100 mls/hr IVPB Q12H [facility] Meropenem 1 gm/ Sodium (Chloride) 100 mls @ 100 mls/hr IVPB Q8H [facility] Last Admin: 06/06/17 11:00 Dose: Not Given Meropenem 1 gm/ Sodium (Chloride) 100 mls @ 100 mls/hr IVPB Q8H [facility] Insulin Aspart (Novolog) 0 unit SC ACHS [facility] PRN Reason: Protocol Last Admin: 06/06/17 12:18 Dose: 1 unit Lactobacillus Acidophilus (Bacid Acidophilus) 1 cap PO DAILY [facility] Last Admin: 06/06/17 09:21 Dose: 1 cap Loperamide HCl (Imodium) 2 mg PO Q4 PRN PRN Reason: Diarrhea Magnesium Hydroxide (Milk Of Magnesia) 30 ml PO DAILY PRN PRN Reason: Constipation Mupirocin (Bactroban Ointment) 1 gm TOP DAILY [facility] Last Admin: 06/06/17 09:25 Dose: 1 gm Mupirocin (Bactroban Ointment) 1 gm TOP DAILY@1800 [facility] Oxycodone/Acetaminophen (Percocet 5/325 Mg Tab) 1 tab PO Q4H PRN PRN Reason: Pain, moderate (4-7) Stop: 06/08/17 20:47 Last Admin: 06/06/17 12:12 Dose: 1 tab Silver Sulfadiazine (Silvadene 1% 20 Gm) 0 ea TOP QSHIFT [facility] Last Admin: 06/06/17 14:06 Dose: 1 unit - Labs Labs: 06/05/17 17:49 06/05/17 17:49 PT 11.3 SECONDS (9.7-12.2) 06/05/17 17:49 INR 1.0 06/05/17 17:49 APTT 28 SECONDS (21-34) 06/05/17 17:49 - Constitutional Appears: Well - Head Exam Head Exam: ATRAUMATIC, NORMAL INSPECTION, NORMOCEPHALIC - Eye Exam Eye Exam: EOMI, Normal appearance, PERRL Pupil Exam: NORMAL ACCOMODATION, PERRL - ENT Exam ENT Exam: Mucous Membranes Moist, Normal Exam - Neck Exam Neck Exam: Full ROM, Normal Inspection. absent: Lymphadenopathy - Respiratory Exam Respiratory Exam: Clear to Ausculation Bilateral, NORMAL BREATHING PATTERN - Cardiovascular Exam Cardiovascular Exam: REGULAR RHYTHM, +S1, +S2. absent: Murmur - GI/Abdominal Exam GI & Abdominal Exam: Soft, Normal Bowel Sounds. absent: Tenderness - Rectal Exam Rectal Exam: Deferred - Extremities Exam Extremities Exam: Full ROM, Normal Capillary Refill, Normal Inspection. absent : Joint Swelling, Pedal Edema - Back Exam Back Exam: NORMAL INSPECTION - Neurological Exam Neurological Exam: Alert, Awake, CN II-XII Intact, Normal Gait, Oriented x3 Assessment and Plan (1) Abdominal wall pain Status: Acute (2) Dehydration Status: Acute (3) Ileostomy care Status: Acute (4) Urinary tract infection Status: Acute (5) Colonic fistula Status: Acute (6) Displacement of Mckeon catheter Status: Acute (7) Ileostomy bag changed Status: Acute - Assessment and Plan (Free Text) Plan: Patient examined. Patient was in hypertension. Bolus IV fluids were given. Currently blood pressure is 97 systolic. Continue meropenem, tigecycline. Continue insulin, loperamide, pain medication. Continue supportive care.
[2017-06-06] MEDS: Meropenem 1 GM in Sodium Chloride 0.9% 100 ML IVPB SCH (18:12)
--- NOTE | 2017-06-06 21:22 | CP.PCM.CON ---
History of Present Illness - History of Present Illness History of Present Illness: dictated Past Patient History - Past Medical History & Family History Past Medical History?: Yes - Past Social History Smoking Status: Never Smoked - CARDIAC Hx Hypertension: Yes - PULMONARY Hx Respiratory Disorders: No - NEUROLOGICAL Hx Neurological Disorder: No - HEENT Hx HEENT Problems: No - RENAL Hx Chronic Kidney Disease: No - ENDOCRINE/METABOLIC Hx Hyperthyroidism: Yes - HEMATOLOGICAL/ONCOLOGICAL Hx Blood Disorders: No - INTEGUMENTARY Hx Dermatological Problems: No - MUSCULOSKELETAL/RHEUMATOLOGICAL Hx Musculoskeletal Disorders: No Hx Falls: No - GASTROINTESTINAL Hx Gastrointestinal Disorders: Yes Hx Colitis: Yes Hx Gastroesophageal Reflux: Yes - GENITOURINARY/GYNECOLOGICAL Hx Genitourinary Disorders: Yes Hx Urinary Tract Infection: Yes - PSYCHIATRIC Hx Substance Use: No - SURGICAL HISTORY Hx Surgeries: Yes Other/Comment: Nephrostomy insertion - ANESTHESIA Hx Anesthesia: Yes Hx Anesthesia Reactions: No Hx Malignant Hyperthermia: No Has any member of the family had a problem w/ anesthesia?: No Meds Allergies/Adverse Reactions: Allergies Allergy/AdvReac Type Severity Reaction Status Date / Time No Known Allergies Allergy Verified 06/02/17 21:17 - Medications Medications: Current Medications Acetaminophen (Tylenol 325mg Tab) 650 mg PO Q4 PRN PRN Reason: Fever >100.4 F Ascorbic Acid (Vitamin C 500 Mg Tab) 500 mg PO DAILY [facility] Last Admin: 06/06/17 09:25 Dose: 500 mg Enoxaparin Sodium (Lovenox) 30 mg SC DAILY [facility] Last Admin: 06/06/17 09:20 Dose: 30 mg Fentanyl (Duragesic) 1 patch TD Q72 [facility] Sodium Chloride (Sodium Chloride 0.9%) 1,000 mls @ 100 mls/hr IV .Q10H [facility] Last Admin: 06/06/17 12:06 Dose: Not Given Tigecycline 50 mg/ Dextrose 50 mls @ 100 mls/hr IVPB Q12H [facility] Meropenem 1 gm/ Sodium (Chloride) 100 mls @ 100 mls/hr IVPB Q8H [facility] Last Admin: 06/06/17 18:12 Dose: 100 mls/hr Insulin Aspart (Novolog) 0 unit SC ACHS [facility] PRN Reason: Protocol Last Admin: 06/06/17 17:29 Dose: 1 unit Ketorolac Tromethamine (Toradol) 30 mg IVP Q8H PRN PRN Reason: Pain, Mild (1-3) Last Admin: 06/06/17 19:19 Dose: 30 mg Lactobacillus Acidophilus (Bacid Acidophilus) 1 cap PO DAILY [facility] Last Admin: 06/06/17 09:21 Dose: 1 cap Loperamide HCl (Imodium) 2 mg PO Q4 PRN PRN Reason: Diarrhea Magnesium Hydroxide (Milk Of Magnesia) 30 ml PO DAILY PRN PRN Reason: Constipation Mupirocin (Bactroban Ointment) 1 gm TOP DAILY [facility] Last Admin: 06/06/17 09:25 Dose: 1 gm Mupirocin (Bactroban Ointment) 1 gm TOP DAILY@1800 [facility] Last Admin: 06/06/17 18:30 Dose: 1 appl Oxycodone/Acetaminophen (Percocet 5/325 Mg Tab) 1 tab PO Q4H PRN PRN Reason: Pain, moderate (4-7) Stop: 06/08/17 20:47 Last Admin: 06/06/17 12:12 Dose: 1 tab Silver Sulfadiazine (Silvadene 1% 20 Gm) 0 ea TOP QSHIFT [facility] Last Admin: 06/06/17 14:06 Dose: 1 unit Zolpidem Tartrate (Ambien) 5 mg PO HS PRN PRN Reason: Insomnia Results - Vital Signs Recent Vital Signs: Last Vital Signs Temp 98.9 F 06/06/17 16:00 Pulse 114 H 06/06/17 16:00 Resp 18 06/06/17 16:00 BP 96/58 L 06/06/17 16:00 Pulse Ox 100 06/06/17 16:00 - Labs Result Diagrams: 06/05/17 17:49 06/05/17 17:49 Labs: Laboratory Results - last 24 hr 06/05/17 06/05/17 06/06/17 21:20 23:55 01:30 pO2 78 H VBG pH 7.37 VBG pCO2 29 L VBG HCO3 19.3 VBG Total CO2 17.7 L VBG O2 Sat (Calc) 97.4 H VBG Base Excess -7.1 L Sodium 197.0 H* Chloride 136.0 H Glucose 156 H Lactate 1.7 Crit Value Called To Terrence kumar/rn Crit Value Called By Yasir gupta/rt Crit Value Read Back Y Blood Gas Notified Time 136 POC Glucose (mg/dL) 176 H 222 H 06/06/17 06/06/17 06/06/17 07:26 11:29 16:32 pO2 VBG pH VBG pCO2 VBG HCO3 VBG Total CO2 VBG O2 Sat (Calc) VBG Base Excess Sodium Chloride Glucose Lactate Crit Value Called To Crit Value Called By Crit Value Read Back Blood Gas Notified Time POC Glucose (mg/dL) 127 H 184 H 173 H
[2017-06-06] MEDS: WATER IVPB SCH (21:42)
[2017-06-06] MEDS: TIGECYCLINE IVPB SCH (21:42)
[2017-06-06] MEDS: DEXTROSE 5% IVPB SCH (21:42)
[2017-06-07] MEDS: Meropenem 1 GM in Sodium Chloride 0.9% 100 ML IVPB SCH ×3 (02:42→18:05)
[2017-06-07] MEDS: Silver Sulfadiazine 1% Cream (20 gm) TOP SCH ×4 (06:00→21:56)
[2017-06-07] MEDS: Sodium Chloride 0.9% 1,000 ML IV SCH ×2 (06:36→21:51)
[2017-06-07 07:24] LABS: BASO % 0.2 % (0.0-2.0); EOS # 0.3 K/uL (0.0-0.7); EOS % 3.1 % (0.0-4.0); HEMATOCRIT 26.2 % (34.0-47.0); LYMPH # 0.8 K/uL (1.0-4.3); LYMPH % 9.1 % (20.0-40.0); MEAN CELL VOLUME 87.7 fL (81.0-99.0); MEAN CORPUSCULAR HEMOGLOBIN 28.4 pg (27.0-31.0); MEAN CORPUSCULAR HGB CONC 32.4 g/dL (33.0-37.0); MEAN PLATELET VOLUME 8.4 fL (7.2-11.7); MONO # 0.6 K/uL (0.0-0.8); MONO % 6.6 % (0.0-10.0); PLATELET COUNT 279 K/uL (130-400); RED CELL DISTRIBUTION WIDTH 13.9 % (11.5-14.5); WHITE BLOOD COUNT 8.6 K/uL (4.8-10.8)
[2017-06-07 08:02] LABS: ALB/GLOB RATIO 0.7 (1.0-2.1); ALKALINE PHOSPHATASE 201 U/L (38-126); ALT/SGPT 36 U/L (9-52); AST/SGOT 17 U/L (14-36); BILIRUBIN,TOTAL 0.7 mg/dL (0.2-1.3); BLOOD UREA NITROGEN 21 mg/dL (7-17); CALCIUM 8.4 mg/dl (8.6-10.4); CARBON DIOXIDE 16 mmol/L (22-30); CHLORIDE 106 mmol/L (98-107); GFR AFRICAN-AMERICAN > 60; GLUCOSE,RANDOM 117 mg/dL (65-105); POTASSIUM 3.5 mmol/L (3.6-5.2); SODIUM 132 mmol/L (132-148); TOTAL PROTEIN 5.6 g/dL (6.3-8.3)
--- NOTE | 2017-06-07 08:16 | CON ---
DATE: REQUESTED BY: Wilfrido Higgins M.D. HISTORY OF PRESENT ILLNESS: This patient is a 61-year-old female. She was sent from the from the alf, she was having a leakage from the ileostomy bag. She has a bag and she also has a nephrostomy tube and she has all these dressings all around her ileostomy bag as they have been leaking and causing skin irritation and she came in with abdominal pain. There was no fever, no chills, no vomiting, no diarrhea. She has had resistant organisms in the alf. Actually, she was here from 06/02/2017 to 06/03/2017 with hypernatremia, dehydration and UTIs in the ER and her reports of the micro showed she had Pseudomonas putida on 06/02/2017, which was sensitive to imipenem and tobramycin and to cefepime and amikacin. She does have an nephrostomy tube and her abdominal wound on 05/08/2017 had VRE and Larissa glabrata, so she was here and she has had resistant organisms and was seen by the surgeon for the leakage from the ileostomy tube; however, there is no chest pain, no fever, no nausea, no vomiting. Does have abdominal pain. Denies any headache. She is very frail, but she is able to communicate. PAST MEDICAL HISTORY: Negative for smoking or drinking. No drug abuse. History of hypertension, history of hyperthyroidism, history of colitis, gastroesophageal reflux disease, history of urinary tract infections in the past. No psych history. Has a nephrostomy tube and has ileostomy. ALLERGIES: She is not allergic to any medicine. MEDICATIONS: She was on IV fluids and her medications are; she is on Tylenol, vitamin C, Lovenox, Duragesic patch, NovoLog and Toradol, Bacid, Imodium for diarrhea was added today. She is on milk of magnesia and meropenem; mupirocin, which they are applying to the abdominal wall; Percocet, Silvadene. She is on Tygacil and meropenem at this time. As I was told, she had Klebsiella and VRE that is what I was told recently. PHYSICAL EXAMINATION: VITAL SIGNS: I find temperature is 98.9, heart rate of 114, blood pressure is 96/58, respirations are 18. HEENT: Head is atraumatic and normocephalic. Pupils are reacting to light. Mild pallor present. Tongue is moist. NECK: Supple. LUNGS: Clear. No crackles or rales present. HEART: S1 and S2 is tachycardic. ABDOMEN: She has an ileostomy bag in the right lower quadrant. No guarding. No rigidity present. She has irritation of the skin all around the ileostomy site. EXTREMITIES: She is curled up in bed and has a nephrostomy tube, which is right nephrostomy tube and also has a Mckeon catheter at this time and appears frail. LABORATORY DATA: Labs are noted. Labs show white count is 9.9, hemoglobin 10.3, hematocrit 31.5, platelet count is 375. Her sodium is 131, potassium 4, chloride is 99, CO2 is 21, anion gap is 15, BUN is 20, creatinine is 0.8 and glucose is 173. She had abdominal and pelvic CT today and that showed grossly stable complex postoperative appearance of the pelvis with multiple bowel surgeries including right lower quadrant ostomy, stable irregular appearance of the urinary bladder containing air and fluid around the Mckeon catheter, right percutaneous nephrostomy tube, unchanged, worsening now, severe left hydroureteronephrosis, so she has a left hydroureteronephrosis, slightly delayed excretion of intravenous contrast by left relative to the right kidney. No obvious evidence of colon fistula, although evaluation is limited. Regional findings seem to be stable except for left hydroureteronephrosis and at this time, I am just going to review the cultures. She had VRE on 05/08/2017 and VRE was sensitive to Tygacil that is important, and then she had Klebsiella in the ileostomy, which was imipenem sensitive,so we will continue these both antibiotics at this time and hope that she gets better. The patient is very fragile, sick-looking patient with multiple problems and also she will need a urologist to evaluate her left hydronephrosis as she may need a stent there and we will follow. Erlin Miranda MD
[2017-06-07 09:03] LABS: NEUTROPHIL 88 % (50-75); TOTAL CELLS COUNTED 100
[2017-06-07] MEDS: (Novolog) Insulin Aspart, Recombinant 100 u/ml 10 ml vial SC SCH ×4 (09:40→21:58)
[2017-06-07] MEDS: Lactobacillus Acidophilus 500 MU Cap PO SCH (09:42)
[2017-06-07] MEDS: TIGECYCLINE IVPB SCH ×2 (09:42→21:52)
[2017-06-07] MEDS: WATER IVPB SCH ×2 (09:42→21:52)
[2017-06-07] MEDS: DEXTROSE 5% IVPB SCH ×2 (09:42→21:52)
[2017-06-07] MEDS: Enoxaparin 30 mg Syringe SC SCH (09:42)
--- NOTE | 2017-06-07 12:02 | CP.PCM.PN ---
<Skip Davis - Last Filed: 06/07/17 18:11> Subjective - Date & Time of Evaluation Date of Evaluation: 06/07/17 Time of Evaluation: 07:30 - Subjective Subjective: This 61yo F with PMHx HTN, DM Type2, Colitis - [facility] in her ileostomy bag. Patient was seen on for the same complaints, and her ileostomy bag was replaced. She initially presented in March w. 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 Early April pt went to OR for repair. Surgery consisted of exploratory laparotomy with small bowel resection x2, bladder repair, appendectomy, and ileostomy. Post -operative course was complicated by persistent leaking at the ostomy site despite multiple attempts of placing ostomy bag in various configurations. Pt presents from rehab facility w. same complaint of pain at ostomy site 2/2 to leakage. PMH: HTN, DMII, Hyperthyroidism, Colitis PSH: see above Meds: see EMR NKDA SocHx: Denies ETOH/tobacco/drugs FamHx: Denies PGY2 Resident - Medicine Progress Note Patient seen and examined at bedside. No acute distress. No overnight events. She is Gudrati speaking only, and a subscription agent was required. She also reports that she is a Vegetarian. She reports she is tolerating her diet, however has persistent abdominal pain for several months. She reports feeling febrile as well with mild dizziness. Otherwise Denies chills, headache, changes in vision, chest pain, palpitations, dyspnea, cough, nausea/vomiting, diarrhea/constipation , or any additional acute complaints. Objective - Vital Signs/Intake and Output Vital Signs (last 24 hours): Temp Pulse Resp BP Pulse Ox 99.3 F 120 H 20 95/59 L 96 06/07/17 08:00 06/07/17 08:00 06/07/17 08:00 06/07/17 08:00 06/07/17 08:00 Intake and Output: 06/07/17 06/07/17 06:59 18:59 Intake Total 1100 980 Output Total 700 800 Balance 400 180 - Medications Medications: Current Medications Acetaminophen (Tylenol 325mg Tab) 650 mg PO Q4 PRN PRN Reason: Fever >100.4 F Ascorbic Acid (Vitamin C 500 Mg Tab) 500 mg PO DAILY [facility] [place] Last Admin: 06/07/17 09:42 Dose: 500 mg Enoxaparin Sodium (Lovenox) 30 mg SC DAILY [facility] [place] Last Admin: 06/07/17 09:42 Dose: 30 mg Fentanyl (Duragesic) 1 patch TD Q72 [facility] [place] Sodium Chloride (Sodium Chloride 0.9%) 1,000 mls @ 100 mls/hr IV .Q10H [facility] [place] Last Admin: 06/07/17 06:36 Dose: 100 mls/hr Tigecycline 50 mg/ Dextrose 50 mls @ 100 mls/hr IVPB Q12H [facility] [place] Last Admin: 06/07/17 09:42 Dose: 100 mls/hr Meropenem 1 gm/ Sodium (Chloride) 100 mls @ 100 mls/hr IVPB Q8H [facility] [place] Last Admin: 06/07/17 10:58 Dose: 100 mls/hr Insulin Aspart (Novolog) 0 unit SC ACHS [facility] [place] PRN Reason: Protocol Last Admin: 06/07/17 09:40 Dose: Not Given Ketorolac Tromethamine (Toradol) 30 mg IVP Q8H PRN PRN Reason: Pain, Mild (1-3) Last Admin: 06/06/17 19:19 Dose: 30 mg Lactobacillus Acidophilus (Bacid Acidophilus) 1 cap PO DAILY [facility] [place] Last Admin: 06/07/17 09:42 Dose: 1 cap Loperamide HCl (Imodium) 2 mg PO Q4 PRN PRN Reason: Diarrhea Magnesium Hydroxide (Milk Of Magnesia) 30 ml PO DAILY PRN PRN Reason: Constipation Mupirocin (Bactroban Ointment) 1 gm TOP DAILY [facility] [place] Last Admin: 06/07/17 09:48 Dose: 1 gm Mupirocin (Bactroban Ointment) 1 gm TOP DAILY@1800 [facility] [place] Last Admin: 06/06/17 18:30 Dose: 1 appl Oxycodone/Acetaminophen (Percocet 5/325 Mg Tab) 1 tab PO Q4H PRN PRN Reason: Pain, moderate (4-7) Stop: 06/08/17 20:47 Last Admin: 06/06/17 12:12 Dose: 1 tab Silver Sulfadiazine (Silvadene 1% 20 Gm) 0 ea TOP QSHIFT [facility] [place] Last Admin: 06/07/17 06:40 Dose: 1 unit Zolpidem Tartrate (Ambien) 5 mg PO HS PRN PRN Reason: Insomnia - Labs Labs: 06/07/17 06:55 06/07/17 06:55 PT 11.3 SECONDS (9.7-12.2) 06/05/17 17:49 INR 1.0 06/05/17 17:49 APTT 28 SECONDS (21-34) 06/05/17 17:49 - Additional Findings Additional findings: - Constitutional Appears: Non-toxic, No Acute Distress, Older Than Stated Age, Chronically Ill - Head Exam Head Exam: ATRAUMATIC, NORMAL INSPECTION - Respiratory Exam Respiratory Exam: NORMAL BREATHING PATTERN. absent: Respiratory Distress - Cardiovascular Exam Cardiovascular Exam: Tachycardia, +S1, +S2 - GI/Abdominal Exam GI & Abdominal Exam: Soft. absent: Distended, Firm, Guarding, Rigid, Tenderness , Rebound Additional comments: L ileostomy with liquid stool, brown - Exam Additional comments: Mckeon with cloudy urine - Back Exam Additional comments: Right nephrostomy - Neurological Exam Neurological Exam: Alert, Awake, Oriented x2 (not oriented to year) - Psychiatric Exam Psychiatric exam: Normal Affect, Normal Mood - Skin Skin Exam: Dry, Warm Assessment and Plan - Assessment and Plan (Free Text) Assessment: 61yo F s/p Ex lap, small bowel resection, bladder repair, appendectomy, ileostomy POD#55 and s/p right nephrostomy tube exchange by IR. Now readmitted with dehydration, UTI, and leaking ileostomy Ostomy site Leakage Surgery consult, Dr. Cabral, f/u recs - Wound care consulted for ileostomy - Will FU blood and urine cx - CT urogram ordered Hydroureteronephrosis, Left sided Urology Consult, Dr. Comfort Fernandez, f/u recs. CT Abd/Pelv 06/06/17 - Grossly stable complex postoperative appearance of the abdomen pelvis with multiple bowel surgeries including right lower quadrant ostomy. Stable irregular appearance of the urinary bladder containing air and fluid around a Mckeon catheter. Right percutaneous nephrostomy tube, unchanged. Worsening, now severe left hydroureteronephrosis. Slightly delayed excretion of intravenous contrast by left kidney relative to right kidney. No obvious evidence of colovesicular fistula, although evaluation is limited due to nature of the exam. (see full report) Abdominal pain Toradol) 30 mg IVP Q8H PRN Fentanyl (Duragesic) 1 patch TD Q72 [facility] [place] Percocet 5/325 Mg Tab) 1 tab PO Q4H PRN UTI Tylenol 325mg Tab) 650 mg PO Q4 PRN Tigecycline 50 mg/ Dextrose 50 mls @ 100 mls/hr IVPB Q12H [facility] [place] Meropenem 1 gm/ Sodium (Chloride) 100 mls @ 100 mls/hr IVPB Q8H [facility] [place] Bacid Acidophilus) 1 cap PO DAILY [facility] [place] ID consult, Dr. Miranda, f/u recs UA with urine blood 1+ and leuk esterase Insomnia Ambien) 5 mg PO HS PRN Hypotension 06/07: Overnight, MOBILE ENGINEER called for hypotension of 74/43. Patient received 500cc bolus x2. Patient had 1 L bolus x2 in ED. Total of 3L bolus last night. Prophylaxis PT/OT VTE prophylaxis Lovenox) 30 mg SC DAILY [facility] [place] Diet - vegetarian Language - Guluis miguelti <Tonya Higgins S - Last Filed: 06/08/17 15:53> Objective - Vital Signs/Intake and Output Vital Signs (last 24 hours): Temp Pulse Resp BP Pulse Ox 98.3 F 90 20 107/65 100 06/08/17 08:39 06/08/17 08:39 06/08/17 08:39 06/08/17 08:39 06/08/17 08:39 Intake and Output: 06/08/17 06/08/17 06:59 18:59 Intake Total 250 920 Output Total 1100 1800 Balance -850 -880 - Medications Medications: Current Medications Acetaminophen (Tylenol 325mg Tab) 650 mg PO Q4 PRN PRN Reason: Fever >100.4 F Ascorbic Acid (Vitamin C 500 Mg Tab) 500 mg PO DAILY [facility] [place] Last Admin: 06/08/17 10:57 Dose: 500 mg Enoxaparin Sodium (Lovenox) 30 mg SC DAILY [facility] [place] Last Admin: 06/08/17 11:35 Dose: 30 mg Fentanyl (Duragesic) 1 patch TD Q72 [facility] [place] Sodium Chloride (Sodium Chloride 0.9%) 1,000 mls @ 100 mls/hr IV .Q10H [facility] [place] Last Admin: 06/08/17 04:28 Dose: Not Given Tigecycline 50 mg/ Dextrose 50 mls @ 100 mls/hr IVPB Q12H [facility] [place] Last Admin: 06/08/17 10:58 Dose: 100 mls/hr Meropenem 1 gm/ Sodium (Chloride) 100 mls @ 100 mls/hr IVPB Q8H [facility] [place] Last Admin: 06/08/17 11:46 Dose: 100 mls/hr Insulin Aspart (Novolog) 0 unit SC ACHS [facility] PRN Reason: Protocol Last Admin: 06/08/17 11:51 Dose: 3 unit Ketorolac Tromethamine (Toradol) 30 mg IVP Q8H PRN PRN Reason: Pain, Mild (1-3) Last Admin: 06/08/17 13:57 Dose: 30 mg Lactobacillus Acidophilus (Bacid Acidophilus) 1 cap PO DAILY [facility] [place] Last Admin: 06/08/17 10:57 Dose: 1 cap Loperamide HCl (Imodium) 2 mg PO Q4 PRN PRN Reason: Diarrhea Magnesium Hydroxide (Milk Of Magnesia) 30 ml PO DAILY PRN PRN Reason: Constipation Mupirocin (Bactroban Ointment) 1 gm TOP DAILY [facility] [place] Last Admin: 06/08/17 11:36 Dose: 1 gm Mupirocin (Bactroban Ointment) 1 gm TOP DAILY@1800 [facility] [place] Last Admin: 06/07/17 21:57 Dose: 1 appl Oxycodone/Acetaminophen (Percocet 5/325 Mg Tab) 1 tab PO Q4H PRN PRN Reason: Pain, moderate (4-7) Stop: 06/08/17 20:47 Last Admin: 06/08/17 10:57 Dose: 1 tab Silver Sulfadiazine (Silvadene 1% 20 Gm) 0 ea TOP QSHIFT [facility] [place] Last Admin: 06/08/17 14:02 Dose: 1 unit Zolpidem Tartrate (Ambien) 5 mg PO HS PRN PRN Reason: Insomnia - Labs Labs: 06/08/17 07:14 06/08/17 07:14 PT 11.3 SECONDS (9.7-12.2) 06/05/17 17:49 INR 1.0 06/05/17 17:49 APTT 28 SECONDS (21-34) 06/05/17 17:49 Assessment and Plan (1) Abdominal wall pain Status: Acute (2) Dehydration Status: Acute (3) Ileostomy care Status: Acute (4) Urinary tract infection Status: Acute (5) Colonic fistula Status: Acute (6) Displacement of Mckeon catheter Status: Acute (7) Ileostomy bag changed Status: Acute Attending/Attestation - Attestation I have personally seen and examined this patient.: Yes I have fully participated in the care of the patient.: Yes I have reviewed all pertinent clinical information, including history, physical exam and plan: Yes Notes (Text): Patient examined. Patient better. No acute overnight events. Patient's hemoglobin is low. Patient tolerating diet, but has persistent abdominal pain. Continue meropenem and tigecycline. Continue pain medications. Continue supportive care.
[2017-06-07] MEDS: Potassium Chloride 20 mEq/15 ml LIQ UD PO SCH ×3 (12:16→18:04)
--- NOTE | 2017-06-07 15:42 | CP.PCM.PN ---
Subjective - Date & Time of Evaluation Date of Evaluation: 06/07/17 Time of Evaluation: 10:00 - Subjective Subjective: GENERAL SURGERY PROGRESS NOTE FOR DR. AUSTIN Patient seen and examined at bedside. Mckeon was removed yesterday. She did not void on her own during 7am - 3pm shift. She only had output from right nephrostomy tube. She is tolerating her diet. Denies nausea/vomiting. Objective - Vital Signs/Intake and Output Vital Signs (last 24 hours): Temp Pulse Resp BP Pulse Ox 99.3 F 120 H 20 95/59 L 96 06/07/17 08:00 06/07/17 08:00 06/07/17 08:00 06/07/17 08:00 06/07/17 08:00 Intake and Output: 06/07/17 06/07/17 06:59 18:59 Intake Total 1100 980 Output Total 700 800 Balance 400 180 - Medications Medications: Current Medications Acetaminophen (Tylenol 325mg Tab) 650 mg PO Q4 PRN PRN Reason: Fever >100.4 F Ascorbic Acid (Vitamin C 500 Mg Tab) 500 mg PO DAILY [facility] Last Admin: 06/07/17 09:42 Dose: 500 mg Enoxaparin Sodium (Lovenox) 30 mg SC DAILY [facility] Last Admin: 06/07/17 09:42 Dose: 30 mg Fentanyl (Duragesic) 1 patch TD Q72 [facility] Sodium Chloride (Sodium Chloride 0.9%) 1,000 mls @ 100 mls/hr IV .Q10H [facility] Last Admin: 06/07/17 06:36 Dose: 100 mls/hr Tigecycline 50 mg/ Dextrose 50 mls @ 100 mls/hr IVPB Q12H [facility] Last Admin: 06/07/17 09:42 Dose: 100 mls/hr Meropenem 1 gm/ Sodium (Chloride) 100 mls @ 100 mls/hr IVPB Q8H [facility] Last Admin: 06/07/17 10:58 Dose: 100 mls/hr Insulin Aspart (Novolog) 0 unit SC ACHS [facility] PRN Reason: Protocol Last Admin: 06/07/17 12:10 Dose: Not Given Ketorolac Tromethamine (Toradol) 30 mg IVP Q8H PRN PRN Reason: Pain, Mild (1-3) Last Admin: 06/06/17 19:19 Dose: 30 mg Lactobacillus Acidophilus (Bacid Acidophilus) 1 cap PO DAILY [facility] Last Admin: 06/07/17 09:42 Dose: 1 cap Loperamide HCl (Imodium) 2 mg PO Q4 PRN PRN Reason: Diarrhea Magnesium Hydroxide (Milk Of Magnesia) 30 ml PO DAILY PRN PRN Reason: Constipation Mupirocin (Bactroban Ointment) 1 gm TOP DAILY [facility] Last Admin: 06/07/17 09:48 Dose: 1 gm Mupirocin (Bactroban Ointment) 1 gm TOP DAILY@1800 [facility] Last Admin: 06/06/17 18:30 Dose: 1 appl Oxycodone/Acetaminophen (Percocet 5/325 Mg Tab) 1 tab PO Q4H PRN PRN Reason: Pain, moderate (4-7) Stop: 06/08/17 20:47 Last Admin: 06/06/17 12:12 Dose: 1 tab Potassium Chloride (Potassium Chloride Oral Soln) 20 meq PO Q3H [facility] Stop: 06/07/17 18:01 Last Admin: 06/07/17 15:23 Dose: 20 meq Silver Sulfadiazine (Silvadene 1% 20 Gm) 0 ea TOP QSHIFT [facility] Last Admin: 06/07/17 06:40 Dose: 1 unit Zolpidem Tartrate (Ambien) 5 mg PO HS PRN PRN Reason: Insomnia - Labs Labs: 06/07/17 06:55 06/07/17 06:55 PT 11.3 SECONDS (9.7-12.2) 06/05/17 17:49 INR 1.0 06/05/17 17:49 APTT 28 SECONDS (21-34) 06/05/17 17:49 - Constitutional Appears: Non-toxic, No Acute Distress, Cachectic, Chronically Ill - Head Exam Head Exam: ATRAUMATIC, NORMAL INSPECTION - Respiratory Exam Respiratory Exam: NORMAL BREATHING PATTERN. absent: Respiratory Distress - Cardiovascular Exam Cardiovascular Exam: +S1, +S2 - GI/Abdominal Exam GI & Abdominal Exam: Soft. absent: Distended, Firm, Guarding, Rigid, Tenderness , Rebound Additional comments: Right ileostomy with liquid stool, no leak Dressing clean/dry/intact - Back Exam Additional comments: Right nephrostomy tube with cloudy urine - Neurological Exam Neurological Exam: Alert, Awake - Psychiatric Exam Psychiatric exam: Normal Affect, Normal Mood - Skin Skin Exam: Dry, Normal Color, Warm Assessment and Plan - Assessment and Plan (Free Text) Assessment: 61yo F s/p Ex lap, small bowel resection, bladder repair, appendectomy, ileostomy POD#56 and s/p right nephrostomy tube exchange by IR. Now readmitted with dehydration, UTI, and leaking ileostomy - Wound care consulted for ileostomy: "ileostomy stoma adjacent to abdominal fold causing wafer (when attached to base of abdomen) to lose seal causing leaking, irritation and inflammation of the skin around the stoma site. 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 Misha Sims PGY-3
--- NOTE | 2017-06-07 18:54 | CP.PCM.PN ---
Subjective - Date & Time of Evaluation Date of Evaluation: 06/07/17 Time of Evaluation: 07:40 - Subjective Subjective: clinically same Objective - Vital Signs/Intake and Output Vital Signs (last 24 hours): Temp Pulse Resp BP Pulse Ox 99.5 F 120 H 20 109/65 100 06/07/17 16:00 06/07/17 16:00 06/07/17 16:00 06/07/17 16:00 06/07/17 16:00 Intake and Output: 06/07/17 06/07/17 06:59 18:59 Intake Total 1100 1880 Output Total 700 1700 Balance 400 180 - Medications Medications: Current Medications Acetaminophen (Tylenol 325mg Tab) 650 mg PO Q4 PRN PRN Reason: Fever >100.4 F Ascorbic Acid (Vitamin C 500 Mg Tab) 500 mg PO DAILY [facility] Last Admin: 06/07/17 09:42 Dose: 500 mg Enoxaparin Sodium (Lovenox) 30 mg SC DAILY [facility] Last Admin: 06/07/17 09:42 Dose: 30 mg Fentanyl (Duragesic) 1 patch TD Q72 [facility] Sodium Chloride (Sodium Chloride 0.9%) 1,000 mls @ 100 mls/hr IV .Q10H [facility] Last Admin: 06/07/17 06:36 Dose: 100 mls/hr Tigecycline 50 mg/ Dextrose 50 mls @ 100 mls/hr IVPB Q12H [facility] Last Admin: 06/07/17 09:42 Dose: 100 mls/hr Meropenem 1 gm/ Sodium (Chloride) 100 mls @ 100 mls/hr IVPB Q8H [facility] Last Admin: 06/07/17 18:05 Dose: 100 mls/hr Insulin Aspart (Novolog) 0 unit SC ACHS [facility] PRN Reason: Protocol Last Admin: 06/07/17 12:10 Dose: Not Given Ketorolac Tromethamine (Toradol) 30 mg IVP Q8H PRN PRN Reason: Pain, Mild (1-3) Last Admin: 06/06/17 19:19 Dose: 30 mg Lactobacillus Acidophilus (Bacid Acidophilus) 1 cap PO DAILY [facility] Last Admin: 06/07/17 09:42 Dose: 1 cap Loperamide HCl (Imodium) 2 mg PO Q4 PRN PRN Reason: Diarrhea Magnesium Hydroxide (Milk Of Magnesia) 30 ml PO DAILY PRN PRN Reason: Constipation Mupirocin (Bactroban Ointment) 1 gm TOP DAILY [facility] Last Admin: 06/07/17 09:48 Dose: 1 gm Mupirocin (Bactroban Ointment) 1 gm TOP DAILY@1800 [facility] Last Admin: 06/06/17 18:30 Dose: 1 appl Oxycodone/Acetaminophen (Percocet 5/325 Mg Tab) 1 tab PO Q4H PRN PRN Reason: Pain, moderate (4-7) Stop: 06/08/17 20:47 Last Admin: 06/06/17 12:12 Dose: 1 tab Silver Sulfadiazine (Silvadene 1% 20 Gm) 0 ea TOP QSHIFT [facility] Last Admin: 06/07/17 15:32 Dose: 1 unit Zolpidem Tartrate (Ambien) 5 mg PO HS PRN PRN Reason: Insomnia - Labs Labs: 06/07/17 06:55 06/07/17 06:55 PT 11.3 SECONDS (9.7-12.2) 06/05/17 17:49 INR 1.0 06/05/17 17:49 APTT 28 SECONDS (21-34) 06/05/17 17:49 - Constitutional Appears: Well - Head Exam Head Exam: ATRAUMATIC, NORMAL INSPECTION, NORMOCEPHALIC - Eye Exam Eye Exam: EOMI, Normal appearance, PERRL Pupil Exam: NORMAL ACCOMODATION, PERRL - ENT Exam ENT Exam: Mucous Membranes Moist, Normal Exam - Neck Exam Neck Exam: Full ROM, Normal Inspection. absent: Lymphadenopathy - Respiratory Exam Respiratory Exam: Decreased Breath Sounds - Cardiovascular Exam Cardiovascular Exam: REGULAR RHYTHM, +S1, +S2 - GI/Abdominal Exam GI & Abdominal Exam: Soft, Diminished Bowel Sounds - Rectal Exam Rectal Exam: Deferred Assessment and Plan (1) Abdominal wall pain Status: Acute (2) Dehydration Status: Acute (3) Ileostomy care Status: Acute (4) Urinary tract infection Status: Acute (5) Colonic fistula Status: Acute (6) Displacement of Mckeon catheter Status: Acute (7) Ileostomy bag changed Status: Acute - Assessment and Plan (Free Text) Plan: Patient examined. Patient better. Continue meropenem and tigecycline. Continue pain medications. Continue supportive care.
[2017-06-07] MEDS ORDERED: Potassium Chloride 10 mEq ER Tab PO ONE (19:30)
[2017-06-08] MEDS: Meropenem 1 GM in Sodium Chloride 0.9% 100 ML IVPB SCH ×3 (02:01→18:41)
[2017-06-08] MEDS: Sodium Chloride 0.9% 1,000 ML IV SCH ×3 (04:27→20:14)
[2017-06-08] MEDS: Silver Sulfadiazine 1% Cream (20 gm) TOP SCH ×2 (05:19→14:02)
[2017-06-08 07:39] LABS: BASO % 0.2 % (0.0-2.0); EOS # 0.3 K/uL (0.0-0.7); EOS % 5.2 % (0.0-4.0); LYMPH # 0.9 K/uL (1.0-4.3); LYMPH % 14.8 % (20.0-40.0); MEAN CELL VOLUME 86.6 fL (81.0-99.0); MEAN CORPUSCULAR HEMOGLOBIN 28.9 pg (27.0-31.0); MEAN CORPUSCULAR HGB CONC 33.3 g/dL (33.0-37.0); MEAN PLATELET VOLUME 8.3 fL (7.2-11.7); MONO # 0.5 K/uL (0.0-0.8); MONO % 8.4 % (0.0-10.0); NRBC % 0.1 % (0.0-2.0); RED CELL DISTRIBUTION WIDTH 13.9 % (11.5-14.5); WHITE BLOOD COUNT 6.3 K/uL (4.8-10.8)
[2017-06-08 08:11] LABS: ALB/GLOB RATIO 0.7 (1.0-2.1); ALKALINE PHOSPHATASE 168 U/L (38-126); ALT/SGPT 31 U/L (9-52); AST/SGOT 19 U/L (14-36); BILIRUBIN,TOTAL 0.4 mg/dL (0.2-1.3); BLOOD UREA NITROGEN 22 mg/dL (7-17); CALCIUM 8.3 mg/dl (8.6-10.4); CARBON DIOXIDE 22 mmol/L (22-30); CHLORIDE 104 mmol/L (98-107); GFR AFRICAN-AMERICAN > 60; GLUCOSE,RANDOM 176 mg/dL (65-105); POTASSIUM 3.7 mmol/L (3.6-5.2); SODIUM 136 mmol/L (132-148); TOTAL PROTEIN 5.4 g/dL (6.3-8.3)
[2017-06-08] MEDS: (Novolog) Insulin Aspart, Recombinant 100 u/ml 10 ml vial SC SCH ×4 (08:30→21:48)
--- NOTE | 2017-06-08 08:57 | CP.PCM.PN ---
<Andres Glaser - Last Filed: 06/08/17 16:06> Subjective - Date & Time of Evaluation Date of Evaluation: 06/08/17 Time of Evaluation: 08:57 - Subjective Subjective: PGY2 Note for Dr. Nadja Higgins; all management as per Dr. Nadja Higgins Patient is still not eating well; will try Marinol; patient is extremely emaciated and cachetic. Objective - Vital Signs/Intake and Output Vital Signs (last 24 hours): Temp Pulse Resp BP Pulse Ox 98.3 F 90 20 107/65 100 06/08/17 08:39 06/08/17 08:39 06/08/17 08:39 06/08/17 08:39 06/08/17 08:39 Intake and Output: 06/08/17 06/08/17 06:59 18:59 Intake Total 250 920 Output Total 1100 1800 Balance -850 -880 - Medications Medications: Current Medications Acetaminophen (Tylenol 325mg Tab) 650 mg PO Q4 PRN PRN Reason: Fever >100.4 F Ascorbic Acid (Vitamin C 500 Mg Tab) 500 mg PO DAILY [facility] Last Admin: 06/07/17 09:42 Dose: 500 mg Enoxaparin Sodium (Lovenox) 30 mg SC DAILY [facility] Last Admin: 06/07/17 09:42 Dose: 30 mg Fentanyl (Duragesic) 1 patch TD Q72 [facility] Sodium Chloride (Sodium Chloride 0.9%) 1,000 mls @ 100 mls/hr IV .Q10H [facility] Last Admin: 06/08/17 04:28 Dose: Not Given Tigecycline 50 mg/ Dextrose 50 mls @ 100 mls/hr IVPB Q12H [facility] Last Admin: 06/07/17 21:52 Dose: 100 mls/hr Meropenem 1 gm/ Sodium (Chloride) 100 mls @ 100 mls/hr IVPB Q8H [facility] Last Admin: 06/08/17 02:01 Dose: 100 mls/hr Insulin Aspart (Novolog) 0 unit SC ACHS [facility] PRN Reason: Protocol Last Admin: 06/08/17 08:30 Dose: 2 unit Ketorolac Tromethamine (Toradol) 30 mg IVP Q8H PRN PRN Reason: Pain, Mild (1-3) Last Admin: 06/08/17 04:40 Dose: 30 mg Lactobacillus Acidophilus (Bacid Acidophilus) 1 cap PO DAILY [facility] Last Admin: 06/07/17 09:42 Dose: 1 cap Loperamide HCl (Imodium) 2 mg PO Q4 PRN PRN Reason: Diarrhea Magnesium Hydroxide (Milk Of Magnesia) 30 ml PO DAILY PRN PRN Reason: Constipation Mupirocin (Bactroban Ointment) 1 gm TOP DAILY [facility] Last Admin: 06/07/17 09:48 Dose: 1 gm Mupirocin (Bactroban Ointment) 1 gm TOP DAILY@1800 [facility] Last Admin: 06/07/17 21:57 Dose: 1 appl Oxycodone/Acetaminophen (Percocet 5/325 Mg Tab) 1 tab PO Q4H PRN PRN Reason: Pain, moderate (4-7) Stop: 06/08/17 20:47 Last Admin: 06/06/17 12:12 Dose: 1 tab Silver Sulfadiazine (Silvadene 1% 20 Gm) 0 ea TOP QSHIFT [facility] Last Admin: 06/08/17 05:19 Dose: 1 unit Zolpidem Tartrate (Ambien) 5 mg PO HS PRN PRN Reason: Insomnia - Labs Labs: 06/08/17 07:14 06/08/17 07:14 PT 11.3 SECONDS (9.7-12.2) 06/05/17 17:49 INR 1.0 06/05/17 17:49 APTT 28 SECONDS (21-34) 06/05/17 17:49 - Constitutional Appears: Non-toxic - Head Exam Head Exam: ATRAUMATIC - Eye Exam Pupil Exam: PERRL - ENT Exam ENT Exam: Mucous Membranes Moist - Neck Exam Neck Exam: Full ROM - Respiratory Exam Respiratory Exam: NORMAL BREATHING PATTERN - Cardiovascular Exam Cardiovascular Exam: REGULAR RHYTHM - GI/Abdominal Exam GI & Abdominal Exam: Soft - Back Exam Back Exam: NORMAL INSPECTION - Neurological Exam Neurological Exam: Awake - Psychiatric Exam Psychiatric exam: Normal Affect - Skin Skin Exam: Warm Assessment and Plan - Assessment and Plan (Free Text) Assessment: 61yo F s/p Ex lap, small bowel resection, bladder repair, appendectomy, ileostomy POD#55 and s/p right nephrostomy tube exchange by IR. Now readmitted with dehydration, UTI, and leaking ileostomy Ostomy site Leakage Surgery consult, Dr. Cabral, f/u recs - Wound care consulted for ileostomy; will continue with their wound care recs - Will blood cultures neg for 24 hours 06/08; will continue to follow - Urine + and abdominal site + for Pseudomonas; patient is sensitive to both abx she is on (tigecyclin/Meropenem) as per ID Hydroureteronephrosis, Left sided Urology Consult, Dr. Comfort Fernandez, f/u recs. CT Abd/Pelv 06/06/17 - Grossly stable complex postoperative appearance of the abdomen pelvis with multiple bowel surgeries including right lower quadrant ostomy. Stable irregular appearance of the urinary bladder containing air and fluid around a Mckeon catheter. Right percutaneous nephrostomy tube, unchanged. Worsening, now severe left hydroureteronephrosis. Slightly delayed excretion of intravenous contrast by left kidney relative to right kidney. No obvious evidence of colovesicular fistula, although evaluation is limited due to nature of the exam. (see full report) 06/08: pending urology recs Abdominal pain/cachexia Toradol) 30 mg IVP Q8H PRN Fentanyl (Duragesic) 1 patch TD Q72 [facility] Percocet 5/325 Mg Tab) 1 tab PO Q4H PRN 06/08: pain is managed well; started marinol 5mg BID UTI Tylenol 325mg Tab) 650 mg PO Q4 PRN Tigecycline 50 mg/ Dextrose 50 mls @ 100 mls/hr IVPB Q12H [facility] Meropenem 1 gm/ Sodium (Chloride) 100 mls @ 100 mls/hr IVPB Q8H [facility] Bacid Acidophilus) 1 cap PO DAILY [facility] ID consult, Dr. Miranda, f/u recs UA with urine blood 1+ and leuk esterase 06/08: on Tigecyclin and Meropenem as per Ruben; appreciate recs Insomnia Ambien) 5 mg PO HS PRN Hypomagnesemia -06/08: 1.0; repleted with 2g of Mag; will follow Hypotension 06/07: Overnight, [facility] called for hypotension of 74/43. Patient received 500cc bolus x2. Patient had 1 L bolus x2 in ED. Total of 3L bolus last night. 06/08: blood pressure has normalized, will continue to monitor Prophylaxis PT/OT VTE prophylaxis Lovenox) 30 mg SC DAILY [facility] Diet - vegetarian Language - Guluis miguelti <Tonya Higgins S - Last Filed: 06/08/17 16:09> Objective - Vital Signs/Intake and Output Vital Signs (last 24 hours): Temp Pulse Resp BP Pulse Ox 98.3 F 90 20 107/65 100 06/08/17 08:39 06/08/17 08:39 06/08/17 08:39 06/08/17 08:39 06/08/17 08:39 Intake and Output: 06/08/17 06/08/17 06:59 18:59 Intake Total 250 920 Output Total 1100 1800 Balance -850 -880 - Medications Medications: Current Medications Acetaminophen (Tylenol 325mg Tab) 650 mg PO Q4 PRN PRN Reason: Fever >100.4 F Ascorbic Acid (Vitamin C 500 Mg Tab) 500 mg PO DAILY [facility] Last Admin: 06/08/17 10:57 Dose: 500 mg Dronabinol (Marinol) 5 mg PO BID [facility] Enoxaparin Sodium (Lovenox) 30 mg SC DAILY [facility] Last Admin: 06/08/17 11:35 Dose: 30 mg Fentanyl (Duragesic) 1 patch TD Q72 [facility] Sodium Chloride (Sodium Chloride 0.9%) 1,000 mls @ 100 mls/hr IV .Q10H [facility] Last Admin: 06/08/17 04:28 Dose: Not Given Tigecycline 50 mg/ Dextrose 50 mls @ 100 mls/hr IVPB Q12H [facility] Last Admin: 06/08/17 10:58 Dose: 100 mls/hr Meropenem 1 gm/ Sodium (Chloride) 100 mls @ 100 mls/hr IVPB Q8H [facility] Last Admin: 06/08/17 11:46 Dose: 100 mls/hr Insulin Aspart (Novolog) 0 unit SC ACHS [facility] PRN Reason: Protocol Last Admin: 06/08/17 11:51 Dose: 3 unit Ketorolac Tromethamine (Toradol) 30 mg IVP Q8H PRN PRN Reason: Pain, Mild (1-3) Last Admin: 06/08/17 13:57 Dose: 30 mg Lactobacillus Acidophilus (Bacid Acidophilus) 1 cap PO DAILY [facility] Last Admin: 06/08/17 10:57 Dose: 1 cap Loperamide HCl (Imodium) 2 mg PO Q4 PRN PRN Reason: Diarrhea Magnesium Hydroxide (Milk Of Magnesia) 30 ml PO DAILY PRN PRN Reason: Constipation Mupirocin (Bactroban Ointment) 1 gm TOP DAILY [facility] Last Admin: 06/08/17 11:36 Dose: 1 gm Mupirocin (Bactroban Ointment) 1 gm TOP DAILY@1800 [facility] Last Admin: 06/07/17 21:57 Dose: 1 appl Oxycodone/Acetaminophen (Percocet 5/325 Mg Tab) 1 tab PO Q4H PRN PRN Reason: Pain, moderate (4-7) Stop: 06/08/17 20:47 Last Admin: 06/08/17 10:57 Dose: 1 tab Silver Sulfadiazine (Silvadene 1% 20 Gm) 0 ea TOP QSHIFT [facility] Last Admin: 06/08/17 14:02 Dose: 1 unit Zolpidem Tartrate (Ambien) 5 mg PO HS PRN PRN Reason: Insomnia - Labs Labs: 06/08/17 07:14 06/08/17 07:14 PT 11.3 SECONDS (9.7-12.2) 06/05/17 17:49 INR 1.0 06/05/17 17:49 APTT 28 SECONDS (21-34) 06/05/17 17:49 Assessment and Plan (1) Abdominal wall pain Status: Acute (2) Dehydration Status: Acute (3) Ileostomy care Status: Acute (4) Urinary tract infection Status: Acute (5) Colonic fistula Status: Acute (6) Displacement of Mckeon catheter Status: Acute (7) Ileostomy bag changed Status: Acute Attending/Attestation - Attestation I have personally seen and examined this patient.: Yes I have fully participated in the care of the patient.: Yes I have reviewed all pertinent clinical information, including history, physical exam and plan: Yes Notes (Text): Patient examined. Patient still urinating well. Patient is cachectic. Continue meropenem and tigecycline. Continue pain management. Continue supportive care.
[2017-06-08] MEDS: Magnesium Sulfate 1 gm in D5W 1 GM/100 ML BAG IVPB SCH ×2 (10:00→13:58)
[2017-06-08] MEDS: Lactobacillus Acidophilus 500 MU Cap PO SCH (10:57)
[2017-06-08] MEDS: Oxycodone/Acetaminophen 5/325 mg Tab PO PRN ×2 (10:57→20:10)
[2017-06-08] MEDS: WATER IVPB SCH ×2 (10:58→21:52)
[2017-06-08] MEDS: TIGECYCLINE IVPB SCH ×2 (10:58→21:52)
[2017-06-08] MEDS: DEXTROSE 5% IVPB SCH ×2 (10:58→21:52)
[2017-06-08] MEDS: Enoxaparin 30 mg Syringe SC SCH (11:35)
--- NOTE | 2017-06-08 16:42 | CP.PCM.PN ---
Subjective - Date & Time of Evaluation Date of Evaluation: 06/08/17 Time of Evaluation: 04:00 - Subjective Subjective: dictated Objective - Vital Signs/Intake and Output Vital Signs (last 24 hours): Temp Pulse Resp BP Pulse Ox 98.3 F 90 20 107/65 100 06/08/17 08:39 06/08/17 08:39 06/08/17 08:39 06/08/17 08:39 06/08/17 08:39 Intake and Output: 06/08/17 06/08/17 06:59 18:59 Intake Total 250 920 Output Total 1100 1800 Balance -850 -880 - Medications Medications: Current Medications Acetaminophen (Tylenol 325mg Tab) 650 mg PO Q4 PRN PRN Reason: Fever >100.4 F Ascorbic Acid (Vitamin C 500 Mg Tab) 500 mg PO DAILY [facility] Last Admin: 06/08/17 10:57 Dose: 500 mg Dronabinol (Marinol) 5 mg PO BID [facility] Enoxaparin Sodium (Lovenox) 30 mg SC DAILY [facility] Last Admin: 06/08/17 11:35 Dose: 30 mg Fentanyl (Duragesic) 1 patch TD Q72 [facility] Sodium Chloride (Sodium Chloride 0.9%) 1,000 mls @ 100 mls/hr IV .Q10H [facility] Last Admin: 06/08/17 04:28 Dose: Not Given Tigecycline 50 mg/ Dextrose 50 mls @ 100 mls/hr IVPB Q12H [facility] Last Admin: 06/08/17 10:58 Dose: 100 mls/hr Meropenem 1 gm/ Sodium (Chloride) 100 mls @ 100 mls/hr IVPB Q8H [facility] Last Admin: 06/08/17 11:46 Dose: 100 mls/hr Insulin Aspart (Novolog) 0 unit SC ACHS [facility] PRN Reason: Protocol Last Admin: 06/08/17 11:51 Dose: 3 unit Ketorolac Tromethamine (Toradol) 30 mg IVP Q8H PRN PRN Reason: Pain, Mild (1-3) Last Admin: 06/08/17 13:57 Dose: 30 mg Lactobacillus Acidophilus (Bacid Acidophilus) 1 cap PO DAILY [facility] Last Admin: 06/08/17 10:57 Dose: 1 cap Loperamide HCl (Imodium) 2 mg PO Q4 PRN PRN Reason: Diarrhea Magnesium Hydroxide (Milk Of Magnesia) 30 ml PO DAILY PRN PRN Reason: Constipation Mupirocin (Bactroban Ointment) 1 gm TOP DAILY [facility] Last Admin: 06/08/17 11:36 Dose: 1 gm Mupirocin (Bactroban Ointment) 1 gm TOP DAILY@1800 [facility] Last Admin: 06/07/17 21:57 Dose: 1 appl Oxycodone/Acetaminophen (Percocet 5/325 Mg Tab) 1 tab PO Q4H PRN PRN Reason: Pain, moderate (4-7) Stop: 06/08/17 20:47 Last Admin: 06/08/17 10:57 Dose: 1 tab Silver Sulfadiazine (Silvadene 1% 20 Gm) 0 ea TOP QSHIFT [facility] Last Admin: 06/08/17 14:02 Dose: 1 unit Zolpidem Tartrate (Ambien) 5 mg PO HS PRN PRN Reason: Insomnia - Labs Labs: 06/08/17 07:14 06/08/17 07:14 PT 11.3 SECONDS (9.7-12.2) 06/05/17 17:49 INR 1.0 06/05/17 17:49 APTT 28 SECONDS (21-34) 06/05/17 17:49
--- NOTE | 2017-06-08 16:52 | CP.PCM.PN ---
<Vikki Sims - Last Filed: 06/08/17 16:56> Subjective - Date & Time of Evaluation Date of Evaluation: 06/08/17 Time of Evaluation: 07:00 - Subjective Subjective: GENERAL SURGERY PROGRESS NOTE FOR DR. CABRAL Patient seen and examined at bedside. She is tolerating her diet. Complains of burning to skin. Patient was straight cathed and only 20cc were removed. Objective - Vital Signs/Intake and Output Vital Signs (last 24 hours): Temp Pulse Resp BP Pulse Ox 98.3 F 90 20 107/65 100 06/08/17 08:39 06/08/17 08:39 06/08/17 08:39 06/08/17 08:39 06/08/17 08:39 Intake and Output: 06/08/17 06/08/17 06:59 18:59 Intake Total 250 920 Output Total 1100 1800 Balance -850 -880 - Medications Medications: Current Medications Acetaminophen (Tylenol 325mg Tab) 650 mg PO Q4 PRN PRN Reason: Fever >100.4 F Ascorbic Acid (Vitamin C 500 Mg Tab) 500 mg PO DAILY [facility] Last Admin: 06/08/17 10:57 Dose: 500 mg Dronabinol (Marinol) 5 mg PO BID [facility] Enoxaparin Sodium (Lovenox) 30 mg SC DAILY [facility] Last Admin: 06/08/17 11:35 Dose: 30 mg Fentanyl (Duragesic) 1 patch TD Q72 [facility] Sodium Chloride (Sodium Chloride 0.9%) 1,000 mls @ 100 mls/hr IV .Q10H [facility] Last Admin: 06/08/17 04:28 Dose: Not Given Tigecycline 50 mg/ Dextrose 50 mls @ 100 mls/hr IVPB Q12H [facility] Last Admin: 06/08/17 10:58 Dose: 100 mls/hr Meropenem 1 gm/ Sodium (Chloride) 100 mls @ 100 mls/hr IVPB Q8H [facility] Last Admin: 06/08/17 11:46 Dose: 100 mls/hr Insulin Aspart (Novolog) 0 unit SC ACHS [facility] PRN Reason: Protocol Last Admin: 06/08/17 11:51 Dose: 3 unit Ketorolac Tromethamine (Toradol) 30 mg IVP Q8H PRN PRN Reason: Pain, Mild (1-3) Last Admin: 06/08/17 13:57 Dose: 30 mg Lactobacillus Acidophilus (Bacid Acidophilus) 1 cap PO DAILY [facility] Last Admin: 06/08/17 10:57 Dose: 1 cap Loperamide HCl (Imodium) 2 mg PO Q4 PRN PRN Reason: Diarrhea Magnesium Hydroxide (Milk Of Magnesia) 30 ml PO DAILY PRN PRN Reason: Constipation Mupirocin (Bactroban Ointment) 1 gm TOP DAILY [facility] Last Admin: 06/08/17 11:36 Dose: 1 gm Mupirocin (Bactroban Ointment) 1 gm TOP DAILY@1800 [facility] Last Admin: 06/07/17 21:57 Dose: 1 appl Oxycodone/Acetaminophen (Percocet 5/325 Mg Tab) 1 tab PO Q4H PRN PRN Reason: Pain, moderate (4-7) Stop: 06/08/17 20:47 Last Admin: 06/08/17 10:57 Dose: 1 tab Silver Sulfadiazine (Silvadene 1% 20 Gm) 0 ea TOP QSHIFT [facility] Last Admin: 06/08/17 14:02 Dose: 1 unit Zolpidem Tartrate (Ambien) 5 mg PO HS PRN PRN Reason: Insomnia - Labs Labs: 06/08/17 07:14 06/08/17 07:14 PT 11.3 SECONDS (9.7-12.2) 06/05/17 17:49 INR 1.0 06/05/17 17:49 APTT 28 SECONDS (21-34) 06/05/17 17:49 - Constitutional Appears: No Acute Distress, Cachectic, Chronically Ill - Respiratory Exam Respiratory Exam: NORMAL BREATHING PATTERN. absent: Respiratory Distress - Cardiovascular Exam Cardiovascular Exam: +S1, +S2 - GI/Abdominal Exam GI & Abdominal Exam: Soft. absent: Distended, Firm, Guarding, Rigid, Tenderness , Rebound Additional comments: Right ileostomy with loose stool No leak seen - Back Exam Additional comments: Right nephrostomy tube with urine in place - Neurological Exam Neurological Exam: Alert, CN II-XII Intact, Oriented x3 - Psychiatric Exam Psychiatric exam: Normal Affect, Normal Mood - Skin Skin Exam: Dry, Normal Color, Warm Assessment and Plan - Assessment and Plan (Free Text) Assessment: 61yo F s/p Ex lap, small bowel resection, bladder repair, appendectomy, ileostomy POD#57 and s/p right nephrostomy tube exchange by IR. Now readmitted with dehydration, UTI, and leaking ileostomy - Wound care consulted for ileostomy: "ileostomy stoma adjacent to abdominal fold causing wafer (when attached to base of abdomen) to lose seal causing leaking, irritation and inflammation of the skin around the stoma site. 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 Misha Sims PGY-3 <Sumeet Cabral - Last Filed: 06/09/17 23:31> Objective - Vital Signs/Intake and Output Vital Signs (last 24 hours): Temp Pulse Resp BP Pulse Ox 98 F 94 H 20 121/81 100 06/09/17 15:00 06/09/17 15:00 06/09/17 15:00 06/09/17 15:00 06/09/17 15:00 Intake and Output: 06/09/17 06/10/17 18:59 06:59 Intake Total 1980 Output Total 2950 Balance -970 - Medications Medications: Current Medications Acetaminophen (Tylenol 325mg Tab) 650 mg PO Q4 PRN PRN Reason: Fever >100.4 F Last Admin: 06/09/17 15:28 Dose: 650 mg Ascorbic Acid (Vitamin C 500 Mg Tab) 500 mg PO DAILY [facility] Last Admin: 06/09/17 11:33 Dose: 500 mg Dronabinol (Marinol) 5 mg PO BID [facility] Last Admin: 06/09/17 21:16 Dose: Not Given Enoxaparin Sodium (Lovenox) 30 mg SC DAILY [facility] Last Admin: 06/09/17 11:31 Dose: 30 mg Fentanyl (Duragesic) 1 patch TD Q72 [facility] Tigecycline 50 mg/ Dextrose 50 mls @ 100 mls/hr IVPB Q12H [facility] Last Admin: 06/09/17 22:29 Dose: 100 mls/hr Meropenem 1 gm/ Sodium (Chloride) 100 mls @ 100 mls/hr IVPB Q8H [facility] Last Admin: 06/09/17 21:09 Dose: 100 mls/hr Insulin Aspart (Novolog) 0 unit SC ACHS [facility] PRN Reason: Protocol Last Admin: 06/09/17 22:25 Dose: Not Given Lactobacillus Acidophilus (Bacid Acidophilus) 1 cap PO DAILY [facility] Last Admin: 06/09/17 11:33 Dose: 1 cap Loperamide HCl (Imodium) 2 mg PO Q4 PRN PRN Reason: Diarrhea Last Admin: 06/08/17 17:54 Dose: 2 mg Magnesium Hydroxide (Milk Of Magnesia) 30 ml PO DAILY PRN PRN Reason: Constipation Mupirocin (Bactroban Ointment) 1 gm TOP DAILY [facility] Last Admin: 06/08/17 11:36 Dose: 1 gm Mupirocin (Bactroban Ointment) 1 gm TOP DAILY@1800 [facility] Last Admin: 06/09/17 21:15 Dose: 1 appl Oxycodone/Acetaminophen (Percocet 5/325 Mg Tab) 1 tab PO Q8H PRN PRN Reason: Pain, moderate (4-7) Stop: 06/12/17 16:21 Last Admin: 06/09/17 16:29 Dose: 1 tab Silver Sulfadiazine (Silvadene 1% 20 Gm) 0 ea TOP QSHIFT [facility] Last Admin: 06/09/17 21:17 Dose: 1 unit Zolpidem Tartrate (Ambien) 5 mg PO HS PRN PRN Reason: Insomnia - Labs Labs: 06/09/17 06:57 06/09/17 06:57 PT 11.3 SECONDS (9.7-12.2) 06/05/17 17:49 INR 1.0 06/05/17 17:49 APTT 28 SECONDS (21-34) 06/05/17 17:49 Attending/Attestation - Attestation I have personally seen and examined this patient.: Yes I have fully participated in the care of the patient.: Yes I have reviewed all pertinent clinical information, including history, physical exam and plan: Yes Notes (Text): Pt was seen and examined at bedside Agree with above note and assessment Pt is improving clinically Ileostoy is not leaking Pt is not passing any urine, straight cath is < 100 cc IR consult fot Left Nephrostomy tube Repeat labs in am c.w current mx Plan d/w pt in detail Risk and benefit explained in detail.
--- NOTE | 2017-06-09 01:33 | PN ---
DATE: SUBJECTIVE: The patient remains afebrile, but she complains of pain on the right where her colostomy is. She has dermatitis there. She has a nephrostomy tube now on the left side. Right side tube has been removed. She was complaining of burning of skin around the colostomy. I think it needs to fit properly if something leaks from there. She is getting some cream; I think they are applying Bactroban to the area. PHYSICAL EXAMINATION: GENERAL: She looks more alert. VITAL SIGNS: T-max is 98.2, pulse 98, blood pressure is 98/57, and respirations are 20. HEENT: Head is atraumatic and normocephalic. NECK: Supple. LUNGS: Clear. HEART: S1, S2, tachycardic. ABDOMEN: Has the colostomy and nephrostomy tube in the back. EXTREMITIES: There is no edema. Labs are noted. Labs show white count is 6.3, hemoglobin 8.3, hematocrit 25, and platelet count is 296. Sodium is 136, potassium 3.7, chloride 104, CO2 is 22, BUN is 22, and creatinine is 0.5. The cultures were done. The blood culture did not grow anything. Urine culture had some contaminant, and before that the one which we took from the line, probably from the nephrostomy tube had Pseudomonas putida, which was cefepime and imipenem sensitive and tobramycin sensitive. The wound has Klebsiella and Staphylococcus epidermidis. This Klebsiella is ESBL positive and has Staphylococcus epidermidis and she is on imipenem but the sensitivity to vancomycin is 2, which is pretty bad. So I have left her on meropenem and Tygacil at this time, but we will need to monitor closely, as she has severe dermatitis of the skin from the leak, and is on double coverage at this time and we will put her on some Bacid also. She had a CAT scan, which showed left hydronephrosis, left kidney was swollen, and she will need to be monitored. We will follow. Erlin Miranda MD
[2017-06-09] MEDS: Meropenem 1 GM in Sodium Chloride 0.9% 100 ML IVPB SCH ×3 (03:15→21:09)
[2017-06-09] MEDS: Silver Sulfadiazine 1% Cream (20 gm) TOP SCH ×4 (06:10→21:17)
[2017-06-09] MEDS: (Novolog) Insulin Aspart, Recombinant 100 u/ml 10 ml vial SC SCH ×4 (07:30→22:25)
[2017-06-09 07:31] LABS: BASO % 0.3 % (0.0-2.0); EOS # 0.3 K/uL (0.0-0.7); EOS % 6.2 % (0.0-4.0); LYMPH % 18.8 % (20.0-40.0); MEAN CELL VOLUME 85.9 fL (81.0-99.0); MEAN CORPUSCULAR HEMOGLOBIN 28.5 pg (27.0-31.0); MEAN CORPUSCULAR HGB CONC 33.2 g/dL (33.0-37.0); MEAN PLATELET VOLUME 8.6 fL (7.2-11.7); MONO # 0.5 K/uL (0.0-0.8); MONO % 8.6 % (0.0-10.0); NRBC % 0.2 % (0.0-2.0); RED CELL DISTRIBUTION WIDTH 13.9 % (11.5-14.5); WHITE BLOOD COUNT 5.3 K/uL (4.8-10.8)
[2017-06-09 07:39] LABS: ALB/GLOB RATIO 0.6 (1.0-2.1); ALKALINE PHOSPHATASE 161 U/L (38-126); ALT/SGPT 33 U/L (9-52); AST/SGOT 18 U/L (14-36); BILIRUBIN,TOTAL 0.4 mg/dL (0.2-1.3); BLOOD UREA NITROGEN 25 mg/dL (7-17); CALCIUM 7.8 mg/dl (8.6-10.4); CARBON DIOXIDE 22 mmol/L (22-30); CHLORIDE 108 mmol/L (98-107); GFR AFRICAN-AMERICAN > 60; GLUCOSE,RANDOM 121 mg/dL (65-105); MAGNESIUM 1.5 mg/dL (1.6-2.3); PHOSPHOROUS 2.8 mg/dL (2.5-4.5); POTASSIUM 3.9 mmol/L (3.6-5.2); SODIUM 134 mmol/L (132-148); TOTAL PROTEIN 5.3 g/dL (6.3-8.3)
--- NOTE | 2017-06-09 10:19 | CP.PCM.PN ---
<DeoZari - Last Filed: 06/09/17 17:19> Subjective - Date & Time of Evaluation Date of Evaluation: 06/09/17 Time of Evaluation: 07:40 - Subjective Subjective: General Surgery Dr[facility] Cabral [facility]/o generalized pain. denies F/C, N/V. tolerating diet. Objective - Vital Signs/Intake and Output Vital Signs (last 24 hours): Temp Pulse Resp BP Pulse Ox 98.7 F 98 H 20 97/62 L 100 06/09/17 07:56 06/09/17 07:56 06/09/17 07:56 06/09/17 07:56 06/09/17 07:56 Intake and Output: 06/09/17 06/09/17 06:59 18:59 Intake Total 900 900 Output Total 1360 900 Balance -460 0 - Medications Medications: Current Medications Acetaminophen (Tylenol 325mg Tab) 650 mg PO Q4 PRN PRN Reason: Fever >100.4 F Ascorbic Acid (Vitamin C 500 Mg Tab) 500 mg PO DAILY [facility] Last Admin: 06/08/17 10:57 Dose: 500 mg Dronabinol (Marinol) 5 mg PO BID [facility] Last Admin: 06/08/17 17:53 Dose: 5 mg Enoxaparin Sodium (Lovenox) 30 mg SC DAILY [facility] Last Admin: 06/08/17 11:35 Dose: 30 mg Fentanyl (Duragesic) 1 patch TD Q72 [facility] Tigecycline 50 mg/ Dextrose 50 mls @ 100 mls/hr IVPB Q12H [facility] Last Admin: 06/08/17 21:52 Dose: 100 mls/hr Meropenem 1 gm/ Sodium (Chloride) 100 mls @ 100 mls/hr IVPB Q8H [facility] Last Admin: 06/09/17 03:15 Dose: 100 mls/hr Insulin Aspart (Novolog) 0 unit SC ACHS [facility] PRN Reason: Protocol Last Admin: 06/08/17 21:48 Dose: Not Given Lactobacillus Acidophilus (Bacid Acidophilus) 1 cap PO DAILY [facility] Last Admin: 06/08/17 10:57 Dose: 1 cap Loperamide HCl (Imodium) 2 mg PO Q4 PRN PRN Reason: Diarrhea Last Admin: 06/08/17 17:54 Dose: 2 mg Magnesium Hydroxide (Milk Of Magnesia) 30 ml PO DAILY PRN PRN Reason: Constipation Mupirocin (Bactroban Ointment) 1 gm TOP DAILY [facility] Last Admin: 06/08/17 11:36 Dose: 1 gm Mupirocin (Bactroban Ointment) 1 gm TOP DAILY@1800 [facility] Last Admin: 06/07/17 21:57 Dose: 1 appl Silver Sulfadiazine (Silvadene 1% 20 Gm) 0 ea TOP QSHIFT [facility] Last Admin: 06/09/17 06:10 Dose: 1 unit Zolpidem Tartrate (Ambien) 5 mg PO HS PRN PRN Reason: Insomnia - Labs Labs: 06/09/17 06:57 06/09/17 06:57 PT 11.3 SECONDS (9.7-12.2) 06/05/17 17:49 INR 1.0 06/05/17 17:49 APTT 28 SECONDS (21-34) 06/05/17 17:49 - Constitutional Appears: Non-toxic, No Acute Distress, Chronically Ill - Head Exam Head Exam: NORMAL INSPECTION - Eye Exam Eye Exam: Normal appearance - ENT Exam ENT Exam: Mucous Membranes Moist - Respiratory Exam Respiratory Exam: NORMAL BREATHING PATTERN. absent: Accessory Muscle Use, Respiratory Distress - Cardiovascular Exam Cardiovascular Exam: absent: Bradycardia, Tachycardia - GI/Abdominal Exam GI & Abdominal Exam: Soft. absent: Distended, Firm, Guarding, Rigid, Tenderness , Rebound Additional comments: ileostomy in place - Extremities Exam Extremities Exam: Normal Inspection - Neurological Exam Neurological Exam: Alert, Awake, Oriented x3 - Psychiatric Exam Psychiatric exam: Normal Affect, Normal Mood - Skin Skin Exam: Dry, Intact, Normal Color, Warm Assessment and Plan - Assessment and Plan (Free Text) Assessment: 61 y/o F s/p Ex lap, small bowel resection, bladder repair, appendectomy, ileostomy and s/p right nephrostomy tube exchange by IR. - continue applying MARATHON (CYANOACRYLATE SKIN PROTECTANT) around ostomy appliance - cont Abx per ID - Left nephrosotomy tube tentatively scheduled for tomorrow, Monday, per IR - f/u urology recs - encourage OOB to chair/Amb - GI/DVT PPx Pt discussed w/ Dr. Misha Desouza DO PGY2 <Sumeet Cabral B - Last Filed: 06/09/17 23:35> Objective - Vital Signs/Intake and Output Vital Signs (last 24 hours): Temp Pulse Resp BP Pulse Ox 98 F 94 H 20 121/81 100 06/09/17 15:00 06/09/17 15:00 06/09/17 15:00 06/09/17 15:00 06/09/17 15:00 Intake and Output: 06/09/17 06/10/17 18:59 06:59 Intake Total 1980 Output Total 2950 Balance -970 - Medications Medications: Current Medications Acetaminophen (Tylenol 325mg Tab) 650 mg PO Q4 PRN PRN Reason: Fever >100.4 F Last Admin: 06/09/17 15:28 Dose: 650 mg Ascorbic Acid (Vitamin C 500 Mg Tab) 500 mg PO DAILY [facility] Last Admin: 06/09/17 11:33 Dose: 500 mg Dronabinol (Marinol) 5 mg PO BID [facility] Last Admin: 06/09/17 21:16 Dose: Not Given Enoxaparin Sodium (Lovenox) 30 mg SC DAILY [facility] Last Admin: 06/09/17 11:31 Dose: 30 mg Fentanyl (Duragesic) 1 patch TD Q72 [facility] Tigecycline 50 mg/ Dextrose 50 mls @ 100 mls/hr IVPB Q12H [facility] Last Admin: 06/09/17 22:29 Dose: 100 mls/hr Meropenem 1 gm/ Sodium (Chloride) 100 mls @ 100 mls/hr IVPB Q8H [facility] Last Admin: 06/09/17 21:09 Dose: 100 mls/hr Insulin Aspart (Novolog) 0 unit SC ACHS [facility] PRN Reason: Protocol Last Admin: 06/09/17 22:25 Dose: Not Given Lactobacillus Acidophilus (Bacid Acidophilus) 1 cap PO DAILY [facility] Last Admin: 06/09/17 11:33 Dose: 1 cap Loperamide HCl (Imodium) 2 mg PO Q4 PRN PRN Reason: Diarrhea Last Admin: 06/08/17 17:54 Dose: 2 mg Magnesium Hydroxide (Milk Of Magnesia) 30 ml PO DAILY PRN PRN Reason: Constipation Mupirocin (Bactroban Ointment) 1 gm TOP DAILY [facility] Last Admin: 06/08/17 11:36 Dose: 1 gm Mupirocin (Bactroban Ointment) 1 gm TOP DAILY@1800 [facility] Last Admin: 06/09/17 21:15 Dose: 1 appl Oxycodone/Acetaminophen (Percocet 5/325 Mg Tab) 1 tab PO Q8H PRN PRN Reason: Pain, moderate (4-7) Stop: 06/12/17 16:21 Last Admin: 06/09/17 16:29 Dose: 1 tab Silver Sulfadiazine (Silvadene 1% 20 Gm) 0 ea TOP QSHIFT [facility] Last Admin: 06/09/17 21:17 Dose: 1 unit Zolpidem Tartrate (Ambien) 5 mg PO HS PRN PRN Reason: Insomnia - Labs Labs: 06/09/17 06:57 06/09/17 06:57 PT 11.3 SECONDS (9.7-12.2) 06/05/17 17:49 INR 1.0 06/05/17 17:49 APTT 28 SECONDS (21-34) 06/05/17 17:49 Attending/Attestation - Attestation I have personally seen and examined this patient.: Yes I have fully participated in the care of the patient.: Yes I have reviewed all pertinent clinical information, including history, physical exam and plan: Yes Notes (Text): Pt was seen and examined at bedside Agree with above note and assessment Pt with abdominal pain and leaking ileostomy Wound care Stoma adhesive tape Nephrostomy tube tomorrow Repeat labs in am c.w current mx Plan d/w pt in detail Risk and benefit explained in detail.
--- NOTE | 2017-06-09 11:02 | CP.PCM.PN ---
<Skip Davis - Last Filed: 06/09/17 17:24> Subjective - Date & Time of Evaluation Date of Evaluation: 06/09/17 Time of Evaluation: 07:15 - Subjective Subjective: PGY2 Resident - Medicine Progress Note Patient seen and examined at bedside. No acute distress. No overnight events. She is Gudrati speaking only, and a acid splicer was required. She is still not tolerating her diet, reporting that she is hungry, but becomes nauseous when she eats. She is tolerating ensure with small sips. Denies chills, headache, changes in vision, chest pain, palpitations, dyspnea, cough, nausea/vomiting, diarrhea/constipation, or any additional acute complaints. Objective - Vital Signs/Intake and Output Vital Signs (last 24 hours): Temp Pulse Resp BP Pulse Ox 98.7 F 98 H 20 97/62 L 100 06/09/17 07:56 06/09/17 07:56 06/09/17 07:56 06/09/17 07:56 06/09/17 07:56 Intake and Output: 06/09/17 06/09/17 06:59 18:59 Intake Total 900 900 Output Total 1360 900 Balance -460 0 - Medications Medications: Current Medications Acetaminophen (Tylenol 325mg Tab) 650 mg PO Q4 PRN PRN Reason: Fever >100.4 F Ascorbic Acid (Vitamin C 500 Mg Tab) 500 mg PO DAILY [facility] Last Admin: 06/08/17 10:57 Dose: 500 mg Dronabinol (Marinol) 5 mg PO BID [facility] Last Admin: 06/08/17 17:53 Dose: 5 mg Enoxaparin Sodium (Lovenox) 30 mg SC DAILY [facility] Last Admin: 06/08/17 11:35 Dose: 30 mg Fentanyl (Duragesic) 1 patch TD Q72 [facility] Tigecycline 50 mg/ Dextrose 50 mls @ 100 mls/hr IVPB Q12H [facility] Last Admin: 06/08/17 21:52 Dose: 100 mls/hr Meropenem 1 gm/ Sodium (Chloride) 100 mls @ 100 mls/hr IVPB Q8H [facility] Last Admin: 06/09/17 03:15 Dose: 100 mls/hr Magnesium Sulfate/Dextrose (Magnesium Sulfate 1 Gm/100 Ml D5w) 1 gm in 100 mls @ 200 mls/hr IVPB Q30M [facility] Stop: 06/09/17 11:59 Insulin Aspart (Novolog) 0 unit SC ACHS [facility] PRN Reason: Protocol Last Admin: 06/08/17 21:48 Dose: Not Given Lactobacillus Acidophilus (Bacid Acidophilus) 1 cap PO DAILY [facility] Last Admin: 06/08/17 10:57 Dose: 1 cap Loperamide HCl (Imodium) 2 mg PO Q4 PRN PRN Reason: Diarrhea Last Admin: 06/08/17 17:54 Dose: 2 mg Magnesium Hydroxide (Milk Of Magnesia) 30 ml PO DAILY PRN PRN Reason: Constipation Mupirocin (Bactroban Ointment) 1 gm TOP DAILY [facility] Last Admin: 06/08/17 11:36 Dose: 1 gm Mupirocin (Bactroban Ointment) 1 gm TOP DAILY@1800 [facility] Last Admin: 06/07/17 21:57 Dose: 1 appl Silver Sulfadiazine (Silvadene 1% 20 Gm) 0 ea TOP QSHIFT [facility] Last Admin: 06/09/17 06:10 Dose: 1 unit Zolpidem Tartrate (Ambien) 5 mg PO HS PRN PRN Reason: Insomnia - Labs Labs: 06/09/17 06:57 06/09/17 06:57 PT 11.3 SECONDS (9.7-12.2) 06/05/17 17:49 INR 1.0 06/05/17 17:49 APTT 28 SECONDS (21-34) 06/05/17 17:49 - Additional Findings Additional findings: - Constitutional Appears: Non-toxic, No Acute Distress, Older Than Stated Age, Chronically Ill - Head Exam Head Exam: ATRAUMATIC, NORMAL INSPECTION - Respiratory Exam Respiratory Exam: NORMAL BREATHING PATTERN. absent: Respiratory Distress - Cardiovascular Exam Cardiovascular Exam: Tachycardia, +S1, +S2 - GI/Abdominal Exam GI & Abdominal Exam: Soft. absent: Distended, Firm, Guarding, Rigid, Tenderness , Rebound Additional comments: L ileostomy with liquid stool, brown - Exam Additional comments: Mckeon with cloudy urine - Back Exam Additional comments: Right nephrostomy - Neurological Exam Neurological Exam: Alert, Awake, Oriented x2 (not oriented to year) - Psychiatric Exam Psychiatric exam: Normal Affect, Normal Mood - Skin Skin Exam: Dry, Warm Assessment and Plan - Assessment and Plan (Free Text) Assessment: 61yo F s/p Ex lap, small bowel resection, bladder repair, appendectomy, ileostomy POD#55 and s/p right nephrostomy tube exchange by IR. Now readmitted with dehydration, UTI, and leaking ileostomy Ostomy site Leakage Surgery consult, Dr. Cabral, f/u recs - Wound care consulted for ileostomy; will continue with their wound care recs - Urine + and abdominal site + for Pseudomonas; patient is sensitive to both abx she is on (tigecyclin/Meropenem) as per ID Hydroureteronephrosis, Left sided 06/09: Dr. Comfort Fernandez recommended Cystogram and IR evaluation for percutaneous L nephrostomy tube patient. Per Dr. Fernandez, patient with prior L nephrostomy tube that fell out. f/u cystogram and IR eval. 06/08: pending urology recs Urology Consult, Dr. Comfort Fernandez, f/u recs. CT Abd/Pelv 06/06/17 - Grossly stable complex postoperative appearance of the abdomen pelvis with multiple bowel surgeries including right lower quadrant ostomy. Stable irregular appearance of the urinary bladder containing air and fluid around a Mckeon catheter. Right percutaneous nephrostomy tube, unchanged. Worsening, now severe left hydroureteronephrosis. Slightly delayed excretion of intravenous contrast by left kidney relative to right kidney. No obvious evidence of colovesicular fistula, although evaluation is limited due to nature of the exam. (see full report) Abdominal pain/cachexia 06/09: pain is well managed, continue current treatment. 06/08: pain is managed well; started marinol 5mg BID Toradol) 30 mg IVP Q8H PRN Fentanyl (Duragesic) 1 patch TD Q72 [facility] Percocet 5/325 Mg Tab) 1 tab PO Q4H PRN UTI 06/08: on Tigecyclin (started 06/06) and Meropenem (started 06/06) as per Ruben; appreciate recs Tylenol 325mg Tab) 650 mg PO Q4 PRN Tigecycline 50 mg/ Dextrose 50 mls @ 100 mls/hr IVPB Q12H [facility] Meropenem 1 gm/ Sodium (Chloride) 100 mls @ 100 mls/hr IVPB Q8H [facility] Bacid Acidophilus) 1 cap PO DAILY [facility] ID consult, Dr. Miranda, f/u recs UA with urine blood 1+ and leuk esterase Insomnia Ambien) 5 mg PO HS PRN Electrolyte Imbalance 06/09: Hypomagnesemia, Mg 1.5 repleted with 2 bags of Mag sulfate; will follow 06/08: Hypomagnesemia, Mg 1.0; repleted with 2g of Mag; will follow Hypotension 06/07: Overnight, [facility] called for hypotension of 74/43. Patient received 500cc bolus x2. Patient had 1 L bolus x2 in ED. Total of 3L bolus last night. 06/08: blood pressure has normalized, will continue to monitor Prophylaxis PT/OT VTE prophylaxis Lovenox) 30 mg SC DAILY [facility] Diet - vegetarian Language - Gujarati Case discussed with attending. All medical management as per Dr. Nadja Higgins <Tonya Higgins - Last Filed: 06/12/17 10:52> Objective - Vital Signs/Intake and Output Vital Signs (last 24 hours): Temp Pulse Resp BP Pulse Ox 98.4 F 108 H 19 92/62 L 100 06/12/17 08:12 06/12/17 08:12 06/12/17 08:12 06/12/17 08:12 06/12/17 08:12 Intake and Output: 06/12/17 06/12/17 06:59 18:59 Intake Total 430 Output Total 1900 Balance -1470 - Medications Medications: Current Medications Acetaminophen (Tylenol 325mg Tab) 650 mg PO Q4 PRN PRN Reason: Fever >100.4 F Last Admin: 06/11/17 22:01 Dose: 650 mg Alprazolam (Xanax) 0.25 mg PO TID PRN PRN Reason: Anxiety Stop: 06/17/17 12:33 Last Admin: 06/11/17 04:52 Dose: 0.25 mg Ascorbic Acid (Vitamin C 500 Mg Tab) 500 mg PO DAILY [facility] Last Admin: 06/11/17 10:20 Dose: Not Given Dronabinol (Marinol) 5 mg PO BID [facility] Last Admin: 06/11/17 18:37 Dose: 5 mg Enoxaparin Sodium (Lovenox) 30 mg SC DAILY [facility] Last Admin: 06/11/17 10:20 Dose: 30 mg Fentanyl (Duragesic) 1 patch TD Q72 [facility] Tigecycline 50 mg/ Dextrose 50 mls @ 100 mls/hr IVPB Q12H [facility] Last Admin: 06/11/17 21:55 Dose: 100 mls/hr Meropenem 1 gm/ Sodium (Chloride) 100 mls @ 100 mls/hr IVPB Q8H [facility] Last Admin: 06/12/17 03:03 Dose: 100 mls/hr Insulin Aspart (Novolog) 0 unit SC ACHS [facility] PRN Reason: Protocol Last Admin: 06/12/17 08:03 Dose: Not Given Lactobacillus Acidophilus (Bacid Acidophilus) 1 cap PO DAILY [facility] Last Admin: 06/11/17 10:19 Dose: Not Given Loperamide HCl (Imodium) 2 mg PO Q4 PRN PRN Reason: Diarrhea Last Admin: 06/08/17 17:54 Dose: 2 mg Magnesium Hydroxide (Milk Of Magnesia) 30 ml PO DAILY PRN PRN Reason: Constipation Mupirocin (Bactroban Ointment) 1 gm TOP DAILY [facility] Last Admin: 06/11/17 10:19 Dose: Not Given Mupirocin (Bactroban Ointment) 1 gm TOP DAILY@1800 [facility] Last Admin: 06/11/17 18:54 Dose: 1 appl Oxycodone/Acetaminophen (Percocet 5/325 Mg Tab) 1 tab PO Q8H PRN PRN Reason: Pain, moderate (4-7) Stop: 06/12/17 16:21 Last Admin: 06/11/17 18:35 Dose: 1 tab Silver Sulfadiazine (Silvadene 1% 20 Gm) 0 ea TOP QSHIFT [facility] Last Admin: 06/12/17 06:03 Dose: 1 unit Zolpidem Tartrate (Ambien) 5 mg PO HS PRN PRN Reason: Insomnia Last Admin: 06/09/17 23:55 Dose: 5 mg - Labs Labs: 06/12/17 07:54 06/12/17 07:54 PT 11.3 SECONDS (9.7-12.2) 06/05/17 17:49 INR 1.0 06/05/17 17:49 APTT 28 SECONDS (21-34) 06/05/17 17:49 Assessment and Plan (1) Abdominal wall pain Status: Acute (2) Dehydration Status: Acute (3) Ileostomy care Status: Acute (4) Urinary tract infection Status: Acute (5) Colonic fistula Status: Acute (6) Displacement of Mckeon catheter Status: Acute (7) Ileostomy bag changed Status: Acute Attending/Attestation - Attestation I have personally seen and examined this patient.: Yes I have fully participated in the care of the patient.: Yes I have reviewed all pertinent clinical information, including history, physical exam and plan: Yes Notes (Text): Patient examined. Patient is hungry, but becomes nauseous when she eats. Patient is able to take meals in small sips. Continue meropenem and tigecycline. Continue antiemetic medications. Continue supportive care.
[2017-06-09] MEDS: Enoxaparin 30 mg Syringe SC SCH (11:31)
[2017-06-09] MEDS: Lactobacillus Acidophilus 500 MU Cap PO SCH (11:33)
[2017-06-09] MEDS: Magnesium Sulfate 1 gm in D5W 1 GM/100 ML BAG IVPB SCH ×2 (11:33→13:55)
--- NOTE | 2017-06-09 15:19 | CP.PCM.PN ---
Subjective - Date & Time of Evaluation Date of Evaluation: 06/09/17 Time of Evaluation: 03:00 - Subjective Subjective: dictated Objective - Vital Signs/Intake and Output Vital Signs (last 24 hours): Temp Pulse Resp BP Pulse Ox 98.7 F 93 H 20 97/62 L 98 06/09/17 07:56 06/09/17 13:10 06/09/17 07:56 06/09/17 07:56 06/09/17 13:10 Intake and Output: 06/09/17 06/09/17 06:59 18:59 Intake Total 900 900 Output Total 1360 900 Balance -460 0 - Medications Medications: Current Medications Acetaminophen (Tylenol 325mg Tab) 650 mg PO Q4 PRN PRN Reason: Fever >100.4 F Ascorbic Acid (Vitamin C 500 Mg Tab) 500 mg PO DAILY [facility] Last Admin: 06/09/17 11:33 Dose: 500 mg Dronabinol (Marinol) 5 mg PO BID [facility] Last Admin: 06/09/17 11:31 Dose: 5 mg Enoxaparin Sodium (Lovenox) 30 mg SC DAILY [facility] Last Admin: 06/09/17 11:31 Dose: 30 mg Fentanyl (Duragesic) 1 patch TD Q72 [facility] Tigecycline 50 mg/ Dextrose 50 mls @ 100 mls/hr IVPB Q12H [facility] Last Admin: 06/08/17 21:52 Dose: 100 mls/hr Meropenem 1 gm/ Sodium (Chloride) 100 mls @ 100 mls/hr IVPB Q8H [facility] Last Admin: 06/09/17 13:46 Dose: 100 mls/hr Insulin Aspart (Novolog) 0 unit SC ACHS [facility] PRN Reason: Protocol Last Admin: 06/09/17 11:30 Dose: Not Given Lactobacillus Acidophilus (Bacid Acidophilus) 1 cap PO DAILY [facility] Last Admin: 06/09/17 11:33 Dose: 1 cap Loperamide HCl (Imodium) 2 mg PO Q4 PRN PRN Reason: Diarrhea Last Admin: 06/08/17 17:54 Dose: 2 mg Magnesium Hydroxide (Milk Of Magnesia) 30 ml PO DAILY PRN PRN Reason: Constipation Mupirocin (Bactroban Ointment) 1 gm TOP DAILY [facility] Last Admin: 06/08/17 11:36 Dose: 1 gm Mupirocin (Bactroban Ointment) 1 gm TOP DAILY@1800 [facility] Last Admin: 06/09/17 11:32 Dose: 1 appl Silver Sulfadiazine (Silvadene 1% 20 Gm) 0 ea TOP QSHIFT [facility] Last Admin: 06/09/17 13:50 Dose: 1 unit Zolpidem Tartrate (Ambien) 5 mg PO HS PRN PRN Reason: Insomnia - Labs Labs: 06/09/17 06:57 06/09/17 06:57 PT 11.3 SECONDS (9.7-12.2) 06/05/17 17:49 INR 1.0 06/05/17 17:49 APTT 28 SECONDS (21-34) 06/05/17 17:49
[2017-06-09] MEDS: TIGECYCLINE IVPB SCH ×2 (15:20→22:29)
[2017-06-09] MEDS: DEXTROSE 5% IVPB SCH ×2 (15:20→22:29)
[2017-06-09] MEDS: WATER IVPB SCH ×2 (15:20→22:29)
[2017-06-09] MEDS: Oxycodone/Acetaminophen 5/325 mg Tab PO PRN (16:29)
--- NOTE | 2017-06-09 18:59 | PN ---
DATE: SUBJECTIVE: Patient is in lot of pain, she says. It hurts all around her colostomy tube and she also has a nephrostomy tube. She is asking for pain medication. We are going to give Tylenol. PHYSICAL EXAMINATION GENERAL: She is awake and alert otherwise, and very frail. VITAL SIGNS: T-max is 98.7, heart rate of 93, blood pressure 107/65, respirations are 20. HEENT: Head is atraumatic, normocephalic. NECK: Supple. LUNGS: Clear. No crackles or rales present. HEART: S1, S2, tachycardic. ABDOMEN: Has a colostomy bag and she also has a nephrostomy on the right side. 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 I got mistaken yesterday since she was lying on it and the tube is from the right side, not from the left side. She has dermatitis from the spill or the leakage from the colostomy site. LABORATORY DATA: White count is 5.3, hemoglobin 8.3, hematocrit 25, platelet count is 300. Potassium is 3.9, BUN is 9, creatinine 0.5. ASSESSMENT AND PLAN: She is on medications, Tygacil and meropenem at this time, which are covering the wound as well as the urine culture. We will give it for 7 days this treatment, she is status post nephrostomy tube, status post ileostomy and has resistant organisms and has dermatitis, which is slightly better at this time, but she complains of lot of pain and burning on the skin probably due to the fecal material that comes out, and patient is also on Imodium. We will continue present antibiotics at this time. Erlin Miranda MD
--- NOTE | 2017-06-09 19:52 | CP.PCM.PN ---
Subjective - Date & Time of Evaluation Date of Evaluation: 06/09/17 Time of Evaluation: 07:00 - Subjective Subjective: clinically same Objective - Vital Signs/Intake and Output Vital Signs (last 24 hours): Temp Pulse Resp BP Pulse Ox 98 F 94 H 20 121/81 100 06/09/17 15:00 06/09/17 15:00 06/09/17 15:00 06/09/17 15:00 06/09/17 15:00 Intake and Output: 06/09/17 06/10/17 18:59 06:59 Intake Total 1980 Output Total 2950 Balance -970 - Medications Medications: Current Medications Acetaminophen (Tylenol 325mg Tab) 650 mg PO Q4 PRN PRN Reason: Fever >100.4 F Last Admin: 06/09/17 15:28 Dose: 650 mg Ascorbic Acid (Vitamin C 500 Mg Tab) 500 mg PO DAILY [facility] Last Admin: 06/09/17 11:33 Dose: 500 mg Dronabinol (Marinol) 5 mg PO BID [facility] Last Admin: 06/09/17 11:31 Dose: 5 mg Enoxaparin Sodium (Lovenox) 30 mg SC DAILY [facility] Last Admin: 06/09/17 11:31 Dose: 30 mg Fentanyl (Duragesic) 1 patch TD Q72 [facility] Tigecycline 50 mg/ Dextrose 50 mls @ 100 mls/hr IVPB Q12H [facility] Last Admin: 06/09/17 15:20 Dose: 100 mls/hr Meropenem 1 gm/ Sodium (Chloride) 100 mls @ 100 mls/hr IVPB Q8H [facility] Last Admin: 06/09/17 13:46 Dose: 100 mls/hr Insulin Aspart (Novolog) 0 unit SC ACHS [facility] PRN Reason: Protocol Last Admin: 06/09/17 17:48 Dose: Not Given Lactobacillus Acidophilus (Bacid Acidophilus) 1 cap PO DAILY [facility] Last Admin: 06/09/17 11:33 Dose: 1 cap Loperamide HCl (Imodium) 2 mg PO Q4 PRN PRN Reason: Diarrhea Last Admin: 06/08/17 17:54 Dose: 2 mg Magnesium Hydroxide (Milk Of Magnesia) 30 ml PO DAILY PRN PRN Reason: Constipation Mupirocin (Bactroban Ointment) 1 gm TOP DAILY [facility] Last Admin: 06/08/17 11:36 Dose: 1 gm Mupirocin (Bactroban Ointment) 1 gm TOP DAILY@1800 [facility] Last Admin: 06/09/17 11:32 Dose: 1 appl Oxycodone/Acetaminophen (Percocet 5/325 Mg Tab) 1 tab PO Q8H PRN PRN Reason: Pain, moderate (4-7) Stop: 06/12/17 16:21 Last Admin: 06/09/17 16:29 Dose: 1 tab Silver Sulfadiazine (Silvadene 1% 20 Gm) 0 ea TOP QSHIFT [facility] Last Admin: 06/09/17 13:50 Dose: 1 unit Zolpidem Tartrate (Ambien) 5 mg PO HS PRN PRN Reason: Insomnia - Labs Labs: 06/09/17 06:57 06/09/17 06:57 PT 11.3 SECONDS (9.7-12.2) 06/05/17 17:49 INR 1.0 06/05/17 17:49 APTT 28 SECONDS (21-34) 06/05/17 17:49 - Constitutional Appears: Well - Head Exam Head Exam: ATRAUMATIC, NORMAL INSPECTION, NORMOCEPHALIC - Eye Exam Eye Exam: EOMI, Normal appearance, PERRL Pupil Exam: NORMAL ACCOMODATION, PERRL - ENT Exam ENT Exam: Mucous Membranes Moist, Normal Exam - Neck Exam Neck Exam: Full ROM, Normal Inspection. absent: Lymphadenopathy - Respiratory Exam Respiratory Exam: Decreased Breath Sounds - Cardiovascular Exam Cardiovascular Exam: REGULAR RHYTHM, +S1, +S2 - GI/Abdominal Exam GI & Abdominal Exam: Soft, Diminished Bowel Sounds - Rectal Exam Rectal Exam: Deferred Assessment and Plan (1) Abdominal wall pain Status: Acute (2) Dehydration Status: Acute (3) Ileostomy care Status: Acute (4) Urinary tract infection Status: Acute (5) Colonic fistula Status: Acute (6) Displacement of Mckeon catheter Status: Acute (7) Ileostomy bag changed Status: Acute - Assessment and Plan (Free Text) Plan: Patient examined. Patient clinically the same. Continue meropenem and tigecycline. Continue antiemetic medications. Continue pain management. Continue supportive care.
[2017-06-09] MEDS: Sodium Chloride 0.9% 1,000 ML IV SCH (22:33)
[2017-06-10] MEDS: Meropenem 1 GM in Sodium Chloride 0.9% 100 ML IVPB SCH ×3 (03:05→18:30)
[2017-06-10] MEDS: Silver Sulfadiazine 1% Cream (20 gm) TOP SCH ×3 (06:05→21:40)
[2017-06-10 06:55] LABS: ALB/GLOB RATIO 0.6 (1.0-2.1); ALKALINE PHOSPHATASE 163 U/L (38-126); ALT/SGPT 36 U/L (9-52); AST/SGOT 22 U/L (14-36); BILIRUBIN,TOTAL 0.4 mg/dL (0.2-1.3); BLOOD UREA NITROGEN 25 mg/dL (7-17); CALCIUM 7.8 mg/dl (8.6-10.4); CARBON DIOXIDE 24 mmol/L (22-30); CHLORIDE 103 mmol/L (98-107); GFR AFRICAN-AMERICAN > 60; GLUCOSE,RANDOM 125 mg/dL (65-105); MAGNESIUM 1.6 mg/dL (1.6-2.3); PHOSPHOROUS 2.8 mg/dL (2.5-4.5); POTASSIUM 4.4 mmol/L (3.6-5.2); SODIUM 132 mmol/L (132-148); TOTAL PROTEIN 5.6 g/dL (6.3-8.3)
[2017-06-10 07:08] LABS: BASO % 0.3 % (0.0-2.0); EOS # 0.3 K/uL (0.0-0.7); EOS % 5.3 % (0.0-4.0); HEMATOCRIT 26.6 % (34.0-47.0); LYMPH # 1.4 K/uL (1.0-4.3); LYMPH % 28.2 % (20.0-40.0); MEAN CELL VOLUME 85.4 fL (81.0-99.0); MEAN CORPUSCULAR HEMOGLOBIN 29.2 pg (27.0-31.0); MEAN CORPUSCULAR HGB CONC 34.2 g/dL (33.0-37.0); MEAN PLATELET VOLUME 8.4 fL (7.2-11.7); MONO # 0.5 K/uL (0.0-0.8); MONO % 10.2 % (0.0-10.0); NRBC % 0.1 % (0.0-2.0); RED CELL DISTRIBUTION WIDTH 13.7 % (11.5-14.5)
[2017-06-10] MEDS: (Novolog) Insulin Aspart, Recombinant 100 u/ml 10 ml vial SC SCH ×4 (08:26→21:39)
[2017-06-10] MEDS: WATER IVPB SCH ×2 (09:45→21:37)
[2017-06-10] MEDS: DEXTROSE 5% IVPB SCH ×2 (09:45→21:37)
[2017-06-10] MEDS: TIGECYCLINE IVPB SCH ×2 (09:45→21:37)
[2017-06-10] MEDS: Enoxaparin 30 mg Syringe SC SCH (09:48)
[2017-06-10] MEDS: Oxycodone/Acetaminophen 5/325 mg Tab PO PRN ×2 (09:50→17:14)
[2017-06-10] MEDS: Lactobacillus Acidophilus 500 MU Cap PO SCH (09:57)
[2017-06-10] MEDS ORDERED: Lidocaine 5% Oint(35 gm) TOP ONE (12:31)
--- NOTE | 2017-06-10 18:28 | CP.PCM.PN ---
Subjective - Date & Time of Evaluation Date of Evaluation: 06/10/17 Time of Evaluation: 07:00 - Subjective Subjective: clinically same Objective - Vital Signs/Intake and Output Vital Signs (last 24 hours): Temp Pulse Resp BP Pulse Ox 97.9 F 99 H 20 109/69 100 06/10/17 15:00 06/10/17 15:00 06/10/17 15:00 06/10/17 15:00 06/10/17 15:00 Intake and Output: 06/10/17 06/10/17 06:59 18:59 Intake Total 1750 400 Output Total 1660 1550 Balance 90 -1150 - Medications Medications: Current Medications Acetaminophen (Tylenol 325mg Tab) 650 mg PO Q4 PRN PRN Reason: Fever >100.4 F Last Admin: 06/09/17 15:28 Dose: 650 mg Alprazolam (Xanax) 0.25 mg PO TID PRN PRN Reason: Anxiety Stop: 06/17/17 12:33 Ascorbic Acid (Vitamin C 500 Mg Tab) 500 mg PO DAILY [facility] Last Admin: 06/10/17 12:15 Dose: 500 mg Dronabinol (Marinol) 5 mg PO BID [facility] Last Admin: 06/10/17 17:15 Dose: 5 mg Enoxaparin Sodium (Lovenox) 30 mg SC DAILY [facility] Last Admin: 06/10/17 09:48 Dose: 30 mg Fentanyl (Duragesic) 1 patch TD Q72 [facility] Tigecycline 50 mg/ Dextrose 50 mls @ 100 mls/hr IVPB Q12H [facility] Last Admin: 06/10/17 09:45 Dose: 100 mls/hr Meropenem 1 gm/ Sodium (Chloride) 100 mls @ 100 mls/hr IVPB Q8H [facility] Last Admin: 06/10/17 11:18 Dose: 100 mls/hr Insulin Aspart (Novolog) 0 unit SC ACHS [facility] PRN Reason: Protocol Last Admin: 06/10/17 17:16 Dose: Not Given Lactobacillus Acidophilus (Bacid Acidophilus) 1 cap PO DAILY [facility] Last Admin: 06/10/17 09:57 Dose: Not Given Loperamide HCl (Imodium) 2 mg PO Q4 PRN PRN Reason: Diarrhea Last Admin: 06/08/17 17:54 Dose: 2 mg Magnesium Hydroxide (Milk Of Magnesia) 30 ml PO DAILY PRN PRN Reason: Constipation Mupirocin (Bactroban Ointment) 1 gm TOP DAILY [facility] Last Admin: 06/10/17 09:48 Dose: Not Given Mupirocin (Bactroban Ointment) 1 gm TOP DAILY@1800 [facility] Last Admin: 06/10/17 17:20 Dose: 1 appl Oxycodone/Acetaminophen (Percocet 5/325 Mg Tab) 1 tab PO Q8H PRN PRN Reason: Pain, moderate (4-7) Stop: 06/12/17 16:21 Last Admin: 06/10/17 17:14 Dose: 1 tab Silver Sulfadiazine (Silvadene 1% 20 Gm) 0 ea TOP QSHIFT [facility] Last Admin: 06/10/17 14:21 Dose: 1 unit Zolpidem Tartrate (Ambien) 5 mg PO HS PRN PRN Reason: Insomnia Last Admin: 06/09/17 23:55 Dose: 5 mg - Labs Labs: 06/10/17 06:30 06/10/17 06:30 PT 11.3 SECONDS (9.7-12.2) 06/05/17 17:49 INR 1.0 06/05/17 17:49 APTT 28 SECONDS (21-34) 06/05/17 17:49 - Constitutional Appears: Well - Head Exam Head Exam: ATRAUMATIC, NORMAL INSPECTION, NORMOCEPHALIC - Eye Exam Eye Exam: EOMI, Normal appearance, PERRL Pupil Exam: NORMAL ACCOMODATION, PERRL - ENT Exam ENT Exam: Mucous Membranes Moist, Normal Exam - Neck Exam Neck Exam: Full ROM, Normal Inspection. absent: Lymphadenopathy - Respiratory Exam Respiratory Exam: Clear to Ausculation Bilateral, NORMAL BREATHING PATTERN - Cardiovascular Exam Cardiovascular Exam: REGULAR RHYTHM, +S1, +S2. absent: Murmur - GI/Abdominal Exam GI & Abdominal Exam: Soft, Normal Bowel Sounds. absent: Tenderness - Rectal Exam Rectal Exam: Deferred - Extremities Exam Extremities Exam: Full ROM, Normal Capillary Refill, Normal Inspection. absent : Joint Swelling, Pedal Edema - Back Exam Back Exam: NORMAL INSPECTION Assessment and Plan (1) Abdominal wall pain Status: Acute (2) Dehydration Status: Acute (3) Ileostomy care Status: Acute (4) Urinary tract infection Status: Acute (5) Colonic fistula Status: Acute (6) Displacement of Mckeon catheter Status: Acute (7) Ileostomy bag changed Status: Acute - Assessment and Plan (Free Text) Plan: Patient examined. Patient clinically the same. Continue meropenem and tigecycline. Continue antiemetic medications. Continue pain management. Continue supportive care.
--- NOTE | 2017-06-10 20:49 | CP.PCM.PN ---
Subjective - Date & Time of Evaluation Date of Evaluation: 06/10/17 Time of Evaluation: 03:20 - Subjective Subjective: dictated Objective - Vital Signs/Intake and Output Vital Signs (last 24 hours): Temp Pulse Resp BP Pulse Ox 97.9 F 99 H 20 109/69 100 06/10/17 15:00 06/10/17 15:00 06/10/17 15:00 06/10/17 15:00 06/10/17 15:00 Intake and Output: 06/10/17 06/11/17 18:59 06:59 Intake Total 400 Output Total 1550 Balance -1150 - Medications Medications: Current Medications Acetaminophen (Tylenol 325mg Tab) 650 mg PO Q4 PRN PRN Reason: Fever >100.4 F Last Admin: 06/09/17 15:28 Dose: 650 mg Alprazolam (Xanax) 0.25 mg PO TID PRN PRN Reason: Anxiety Stop: 06/17/17 12:33 Ascorbic Acid (Vitamin C 500 Mg Tab) 500 mg PO DAILY [facility] Last Admin: 06/10/17 12:15 Dose: 500 mg Dronabinol (Marinol) 5 mg PO BID [facility] Last Admin: 06/10/17 17:15 Dose: 5 mg Enoxaparin Sodium (Lovenox) 30 mg SC DAILY [facility] Last Admin: 06/10/17 09:48 Dose: 30 mg Fentanyl (Duragesic) 1 patch TD Q72 [facility] Tigecycline 50 mg/ Dextrose 50 mls @ 100 mls/hr IVPB Q12H [facility] Last Admin: 06/10/17 09:45 Dose: 100 mls/hr Meropenem 1 gm/ Sodium (Chloride) 100 mls @ 100 mls/hr IVPB Q8H [facility] Last Admin: 06/10/17 18:30 Dose: 100 mls/hr Insulin Aspart (Novolog) 0 unit SC ACHS [facility] PRN Reason: Protocol Last Admin: 06/10/17 17:16 Dose: Not Given Lactobacillus Acidophilus (Bacid Acidophilus) 1 cap PO DAILY [facility] Last Admin: 06/10/17 09:57 Dose: Not Given Loperamide HCl (Imodium) 2 mg PO Q4 PRN PRN Reason: Diarrhea Last Admin: 06/08/17 17:54 Dose: 2 mg Magnesium Hydroxide (Milk Of Magnesia) 30 ml PO DAILY PRN PRN Reason: Constipation Mupirocin (Bactroban Ointment) 1 gm TOP DAILY [facility] Last Admin: 06/10/17 09:48 Dose: Not Given Mupirocin (Bactroban Ointment) 1 gm TOP DAILY@1800 [facility] Last Admin: 06/10/17 17:20 Dose: 1 appl Oxycodone/Acetaminophen (Percocet 5/325 Mg Tab) 1 tab PO Q8H PRN PRN Reason: Pain, moderate (4-7) Stop: 06/12/17 16:21 Last Admin: 06/10/17 17:14 Dose: 1 tab Silver Sulfadiazine (Silvadene 1% 20 Gm) 0 ea TOP QSHIFT [facility] Last Admin: 06/10/17 14:21 Dose: 1 unit Zolpidem Tartrate (Ambien) 5 mg PO HS PRN PRN Reason: Insomnia Last Admin: 06/09/17 23:55 Dose: 5 mg - Labs Labs: 06/10/17 06:30 06/10/17 06:30 PT 11.3 SECONDS (9.7-12.2) 06/05/17 17:49 INR 1.0 06/05/17 17:49 APTT 28 SECONDS (21-34) 06/05/17 17:49
--- NOTE | 2017-06-10 21:10 | CP.PCM.PN ---
<Beto Davis - Last Filed: 06/10/17 21:07> Subjective - Date & Time of Evaluation Date of Evaluation: 06/10/17 Time of Evaluation: 08:00 - Subjective Subjective: Surgery Progress note. Dr. Cabral Pt seen and examined at bedside. No acute events overnight. Patient reports pain at ileostomy site. Patient is anxious and tearful. Objective - Vital Signs/Intake and Output Vital Signs (last 24 hours): Temp Pulse Resp BP Pulse Ox 97.9 F 99 H 20 109/69 100 06/10/17 15:00 06/10/17 15:00 06/10/17 15:00 06/10/17 15:00 06/10/17 15:00 Intake and Output: 06/10/17 06/11/17 18:59 06:59 Intake Total 400 Output Total 1550 Balance -1150 - Medications Medications: Current Medications Acetaminophen (Tylenol 325mg Tab) 650 mg PO Q4 PRN PRN Reason: Fever >100.4 F Last Admin: 06/09/17 15:28 Dose: 650 mg Alprazolam (Xanax) 0.25 mg PO TID PRN PRN Reason: Anxiety Stop: 06/17/17 12:33 Ascorbic Acid (Vitamin C 500 Mg Tab) 500 mg PO DAILY [facility] Last Admin: 06/10/17 12:15 Dose: 500 mg Dronabinol (Marinol) 5 mg PO BID [facility] Last Admin: 06/10/17 17:15 Dose: 5 mg Enoxaparin Sodium (Lovenox) 30 mg SC DAILY [facility] Last Admin: 06/10/17 09:48 Dose: 30 mg Fentanyl (Duragesic) 1 patch TD Q72 [facility] Tigecycline 50 mg/ Dextrose 50 mls @ 100 mls/hr IVPB Q12H [facility] Last Admin: 06/10/17 09:45 Dose: 100 mls/hr Meropenem 1 gm/ Sodium (Chloride) 100 mls @ 100 mls/hr IVPB Q8H [facility] Last Admin: 06/10/17 18:30 Dose: 100 mls/hr Insulin Aspart (Novolog) 0 unit SC ACHS [facility] PRN Reason: Protocol Last Admin: 06/10/17 17:16 Dose: Not Given Lactobacillus Acidophilus (Bacid Acidophilus) 1 cap PO DAILY [facility] Last Admin: 06/10/17 09:57 Dose: Not Given Loperamide HCl (Imodium) 2 mg PO Q4 PRN PRN Reason: Diarrhea Last Admin: 06/08/17 17:54 Dose: 2 mg Magnesium Hydroxide (Milk Of Magnesia) 30 ml PO DAILY PRN PRN Reason: Constipation Mupirocin (Bactroban Ointment) 1 gm TOP DAILY [facility] Last Admin: 06/10/17 09:48 Dose: Not Given Mupirocin (Bactroban Ointment) 1 gm TOP DAILY@1800 [facility] Last Admin: 06/10/17 17:20 Dose: 1 appl Oxycodone/Acetaminophen (Percocet 5/325 Mg Tab) 1 tab PO Q8H PRN PRN Reason: Pain, moderate (4-7) Stop: 06/12/17 16:21 Last Admin: 06/10/17 17:14 Dose: 1 tab Silver Sulfadiazine (Silvadene 1% 20 Gm) 0 ea TOP QSHIFT [facility] Last Admin: 06/10/17 14:21 Dose: 1 unit Zolpidem Tartrate (Ambien) 5 mg PO HS PRN PRN Reason: Insomnia Last Admin: 06/09/17 23:55 Dose: 5 mg - Labs Labs: 06/10/17 06:30 06/10/17 06:30 PT 11.3 SECONDS (9.7-12.2) 06/05/17 17:49 INR 1.0 06/05/17 17:49 APTT 28 SECONDS (21-34) 06/05/17 17:49 - Constitutional Appears: Non-toxic, Cachectic - Head Exam Head Exam: ATRAUMATIC, NORMAL INSPECTION, NORMOCEPHALIC - Eye Exam Eye Exam: EOMI - ENT Exam ENT Exam: Mucous Membranes Moist - Respiratory Exam Respiratory Exam: NORMAL BREATHING PATTERN. absent: Accessory Muscle Use, Respiratory Distress - Cardiovascular Exam Cardiovascular Exam: absent: JVD - GI/Abdominal Exam GI & Abdominal Exam: Soft. absent: Distended Additional comments: Abd is soft. Ileostomy is in place with liquid output noted, no leaks noted at ileostomy site. Tender to light palpation. - Extremities Exam Extremities Exam: Normal Inspection. absent: Calf Tenderness - Neurological Exam Neurological Exam: Alert, Awake - Psychiatric Exam Psychiatric exam: Anxious Assessment and Plan - Assessment and Plan (Free Text) Assessment: 61yo F s/p Ex lap with small bowel resection, bladder repair, Appendectomy, Ileostomy. Patient is s/p R nephrostomy exchange by IR - Continue to apply [place] skin protectant around ostomy appliance. Wound care nursing team also following. - May use topical lidocaine 5% cream around ileostomy site for local anesthesia - f/u urology recs - Possible L nephrostomy tube by IR, pending - Encourage OOB to chair - continue GI/DVT ppx - continue Abx as per ID Further recs as per Dr. Misha Davis PGY1 surgery pager: [phone] <Sumeet Cabral - Last Filed: 06/11/17 22:35> Objective - Vital Signs/Intake and Output Vital Signs (last 24 hours): Temp Pulse Resp BP Pulse Ox 98.2 F 105 H 20 99/68 L 100 06/11/17 16:00 06/11/17 16:00 06/11/17 16:00 06/11/17 16:00 06/11/17 16:00 Intake and Output: 06/11/17 06/12/17 18:59 06:59 Intake Total 750 Output Total 2350 Balance -1600 - Medications Medications: Current Medications Acetaminophen (Tylenol 325mg Tab) 650 mg PO Q4 PRN PRN Reason: Fever >100.4 F Last Admin: 06/11/17 22:01 Dose: 650 mg Alprazolam (Xanax) 0.25 mg PO TID PRN PRN Reason: Anxiety Stop: 06/17/17 12:33 Last Admin: 06/11/17 04:52 Dose: 0.25 mg Ascorbic Acid (Vitamin C 500 Mg Tab) 500 mg PO DAILY [facility] Last Admin: 06/11/17 10:20 Dose: Not Given Dronabinol (Marinol) 5 mg PO BID [facility] Last Admin: 06/11/17 18:37 Dose: 5 mg Enoxaparin Sodium (Lovenox) 30 mg SC DAILY [facility] Last Admin: 06/11/17 10:20 Dose: 30 mg Fentanyl (Duragesic) 1 patch TD Q72 [facility] Tigecycline 50 mg/ Dextrose 50 mls @ 100 mls/hr IVPB Q12H [facility] Last Admin: 06/11/17 21:55 Dose: 100 mls/hr Meropenem 1 gm/ Sodium (Chloride) 100 mls @ 100 mls/hr IVPB Q8H [facility] Last Admin: 06/11/17 18:37 Dose: 100 mls/hr Insulin Aspart (Novolog) 0 unit SC ACHS [facility] PRN Reason: Protocol Last Admin: 06/11/17 18:38 Dose: Not Given Lactobacillus Acidophilus (Bacid Acidophilus) 1 cap PO DAILY [facility] Last Admin: 06/11/17 10:19 Dose: Not Given Loperamide HCl (Imodium) 2 mg PO Q4 PRN PRN Reason: Diarrhea Last Admin: 06/08/17 17:54 Dose: 2 mg Magnesium Hydroxide (Milk Of Magnesia) 30 ml PO DAILY PRN PRN Reason: Constipation Mupirocin (Bactroban Ointment) 1 gm TOP DAILY [facility] Last Admin: 06/11/17 10:19 Dose: Not Given Mupirocin (Bactroban Ointment) 1 gm TOP DAILY@1800 [facility] Last Admin: 06/11/17 18:54 Dose: 1 appl Oxycodone/Acetaminophen (Percocet 5/325 Mg Tab) 1 tab PO Q8H PRN PRN Reason: Pain, moderate (4-7) Stop: 06/12/17 16:21 Last Admin: 06/11/17 18:35 Dose: 1 tab Silver Sulfadiazine (Silvadene 1% 20 Gm) 0 ea TOP QSHIFT [facility] Last Admin: 06/11/17 21:57 Dose: 1 unit Zolpidem Tartrate (Ambien) 5 mg PO HS PRN PRN Reason: Insomnia Last Admin: 06/09/17 23:55 Dose: 5 mg - Labs Labs: 06/11/17 07:18 06/11/17 07:18 PT 11.3 SECONDS (9.7-12.2) 06/05/17 17:49 INR 1.0 06/05/17 17:49 APTT 28 SECONDS (21-34) 06/05/17 17:49 Attending/Attestation - Attestation Notes (Text): Pt was seen and examined at bedside Agree with above note and assessment Pt with Ileostomy. No leak today c.w local wound care Plan d.w pt in detail.
--- NOTE | 2017-06-10 23:27 | PN ---
DATE: SUBJECTIVE: The patient it richey in her skin and she has lot of irritation around the colostomy site and is in pain and "I am unable to do much as if we put the cream." The colostomy bag is not going to take and this female seems to be suffering. She does also have a nephrostomy tube. PHYSICAL EXAMINATION VITAL SIGNS: T-max is 97.9, pulse is 99, blood pressure 109/69, respirations are 20. HEENT: Head is atraumatic and normocephalic. She is cachectic. NECK: Supple. LUNGS: Clear. No crackles or rales present. HEART: S1 and S2 are regular. ABDOMEN: Soft, nontender. No guarding. No rigidity present. She does have a colostomy bag and a mid surgical scar and some dermatitis around the colostomy bag. EXTREMITIES: No edema, otherwise. LABORATORY DATA: Labs are noted. Meropenem is renewed for today and we will follow. The patient did have Pseudomonas on the urine and Klebsiella on the wound with Staphylococcus epidermidis. Blood cultures are negative and will continue antibiotics for now. They were started on 28; 28, 29, 30, 1, 2; 5 days. So, we will continue until Monday and see if she gets any better. Erlin Miranda MD
[2017-06-11] MEDS: Oxycodone/Acetaminophen 5/325 mg Tab PO PRN ×3 (02:55→18:35)
[2017-06-11] MEDS: Meropenem 1 GM in Sodium Chloride 0.9% 100 ML IVPB SCH ×3 (02:56→18:37)
[2017-06-11] MEDS: Silver Sulfadiazine 1% Cream (20 gm) TOP SCH ×3 (05:02→21:57)
[2017-06-11 07:37] LABS: BASO % 0.3 % (0.0-2.0); EOS # 0.2 K/uL (0.0-0.7); HEMATOCRIT 27.5 % (34.0-47.0); LYMPH # 1.6 K/uL (1.0-4.3); LYMPH % 26.1 % (20.0-40.0); MEAN CELL VOLUME 85.6 fL (81.0-99.0); MEAN CORPUSCULAR HEMOGLOBIN 28.5 pg (27.0-31.0); MEAN CORPUSCULAR HGB CONC 33.3 g/dL (33.0-37.0); MEAN PLATELET VOLUME 8.4 fL (7.2-11.7); MONO # 0.5 K/uL (0.0-0.8); MONO % 8.1 % (0.0-10.0); NRBC % 0.1 % (0.0-2.0); RED CELL DISTRIBUTION WIDTH 13.7 % (11.5-14.5); WHITE BLOOD COUNT 6.2 K/uL (4.8-10.8)
[2017-06-11 08:08] LABS: ALB/GLOB RATIO 0.6 (1.0-2.1); ALKALINE PHOSPHATASE 151 U/L (38-126); ALT/SGPT 40 U/L (9-52); AST/SGOT 34 U/L (14-36); BILIRUBIN,TOTAL 0.3 mg/dL (0.2-1.3); BLOOD UREA NITROGEN 31 mg/dL (7-17); CARBON DIOXIDE 24 mmol/L (22-30); CHLORIDE 100 mmol/L (98-107); GFR AFRICAN-AMERICAN > 60; GLUCOSE,RANDOM 163 mg/dL (65-105); MAGNESIUM 1.4 mg/dL (1.6-2.3); PHOSPHOROUS 3.5 mg/dL (2.5-4.5); POTASSIUM 4.5 mmol/L (3.6-5.2); SODIUM 130 mmol/L (132-148); TOTAL PROTEIN 5.5 g/dL (6.3-8.3)
[2017-06-11] MEDS: (Novolog) Insulin Aspart, Recombinant 100 u/ml 10 ml vial SC SCH ×4 (10:16→23:11)
[2017-06-11] MEDS: TIGECYCLINE IVPB SCH ×2 (10:17→21:55)
[2017-06-11] MEDS: WATER IVPB SCH ×2 (10:17→21:55)
[2017-06-11] MEDS: DEXTROSE 5% IVPB SCH ×2 (10:17→21:55)
[2017-06-11] MEDS: Lactobacillus Acidophilus 500 MU Cap PO SCH (10:19)
[2017-06-11] MEDS: Enoxaparin 30 mg Syringe SC SCH (10:20)
--- NOTE | 2017-06-11 16:59 | CP.PCM.PN ---
Subjective - Date & Time of Evaluation Date of Evaluation: 06/11/17 Time of Evaluation: 07:00 - Subjective Subjective: clinically same Objective - Vital Signs/Intake and Output Vital Signs (last 24 hours): Temp Pulse Resp BP Pulse Ox 97.6 F 65 20 106/67 100 06/11/17 08:00 06/11/17 08:00 06/11/17 08:00 06/11/17 08:00 06/11/17 08:00 Intake and Output: 06/11/17 06/11/17 06:59 18:59 Intake Total 330 750 Output Total 1200 2350 Balance -870 -1600 - Medications Medications: Current Medications Acetaminophen (Tylenol 325mg Tab) 650 mg PO Q4 PRN PRN Reason: Fever >100.4 F Last Admin: 06/09/17 15:28 Dose: 650 mg Alprazolam (Xanax) 0.25 mg PO TID PRN PRN Reason: Anxiety Stop: 06/17/17 12:33 Last Admin: 06/11/17 04:52 Dose: 0.25 mg Ascorbic Acid (Vitamin C 500 Mg Tab) 500 mg PO DAILY [facility] Last Admin: 06/11/17 10:20 Dose: Not Given Dronabinol (Marinol) 5 mg PO BID [facility] Last Admin: 06/11/17 10:20 Dose: Not Given Enoxaparin Sodium (Lovenox) 30 mg SC DAILY [facility] Last Admin: 06/11/17 10:20 Dose: 30 mg Fentanyl (Duragesic) 1 patch TD Q72 [facility] Tigecycline 50 mg/ Dextrose 50 mls @ 100 mls/hr IVPB Q12H [facility] Last Admin: 06/11/17 10:17 Dose: 100 mls/hr Meropenem 1 gm/ Sodium (Chloride) 100 mls @ 100 mls/hr IVPB Q8H [facility] Last Admin: 06/11/17 11:06 Dose: 100 mls/hr Insulin Aspart (Novolog) 0 unit SC ACHS [facility] PRN Reason: Protocol Last Admin: 06/11/17 12:41 Dose: Not Given Lactobacillus Acidophilus (Bacid Acidophilus) 1 cap PO DAILY [facility] Last Admin: 06/11/17 10:19 Dose: Not Given Loperamide HCl (Imodium) 2 mg PO Q4 PRN PRN Reason: Diarrhea Last Admin: 06/08/17 17:54 Dose: 2 mg Magnesium Hydroxide (Milk Of Magnesia) 30 ml PO DAILY PRN PRN Reason: Constipation Mupirocin (Bactroban Ointment) 1 gm TOP DAILY [facility] Last Admin: 06/11/17 10:19 Dose: Not Given Mupirocin (Bactroban Ointment) 1 gm TOP DAILY@1800 [facility] Last Admin: 06/10/17 17:20 Dose: 1 appl Oxycodone/Acetaminophen (Percocet 5/325 Mg Tab) 1 tab PO Q8H PRN PRN Reason: Pain, moderate (4-7) Stop: 06/12/17 16:21 Last Admin: 06/11/17 10:11 Dose: 1 tab Silver Sulfadiazine (Silvadene 1% 20 Gm) 0 ea TOP QSHIFT [facility] Last Admin: 06/11/17 14:00 Dose: Not Given Zolpidem Tartrate (Ambien) 5 mg PO HS PRN PRN Reason: Insomnia Last Admin: 06/09/17 23:55 Dose: 5 mg - Labs Labs: 06/11/17 07:18 06/11/17 07:18 PT 11.3 SECONDS (9.7-12.2) 06/05/17 17:49 INR 1.0 06/05/17 17:49 APTT 28 SECONDS (21-34) 06/05/17 17:49 - Constitutional Appears: Well - Head Exam Head Exam: ATRAUMATIC, NORMAL INSPECTION, NORMOCEPHALIC - Eye Exam Eye Exam: EOMI, Normal appearance, PERRL Pupil Exam: NORMAL ACCOMODATION, PERRL - ENT Exam ENT Exam: Mucous Membranes Moist, Normal Exam - Neck Exam Neck Exam: Full ROM, Normal Inspection. absent: Lymphadenopathy - Respiratory Exam Respiratory Exam: Clear to Ausculation Bilateral, NORMAL BREATHING PATTERN - Cardiovascular Exam Cardiovascular Exam: REGULAR RHYTHM, +S1, +S2. absent: Murmur - GI/Abdominal Exam GI & Abdominal Exam: Soft, Normal Bowel Sounds. absent: Tenderness - Rectal Exam Rectal Exam: Deferred - Extremities Exam Extremities Exam: Full ROM, Normal Capillary Refill, Normal Inspection. absent : Joint Swelling, Pedal Edema - Back Exam Back Exam: NORMAL INSPECTION Assessment and Plan (1) Abdominal wall pain Status: Acute (2) Dehydration Status: Acute (3) Ileostomy care Status: Acute (4) Urinary tract infection Status: Acute (5) Colonic fistula Status: Acute (6) Displacement of Mckeon catheter Status: Acute (7) Ileostomy bag changed Status: Acute - Assessment and Plan (Free Text) Plan: Patient examined. Patient clinically the same. Continue meropenem and tigecycline. Continue antiemetic medications. Continue pain management. Continue supportive care.
--- NOTE | 2017-06-11 17:14 | CP.PCM.PN ---
<Addy Viera - Last Filed: 06/11/17 17:15> Subjective - Date & Time of Evaluation Date of Evaluation: 06/11/17 Time of Evaluation: 13:00 - Subjective Subjective: General Surgery Progress Note for Dr. Cabral This patient was seen and examined this AM at bedside no acute events overnight she was upset about her stoma and complained of leakage. She also complains of peristomal irritation. Objective - Vital Signs/Intake and Output Vital Signs (last 24 hours): Temp Pulse Resp BP Pulse Ox 97.6 F 65 20 106/67 100 06/11/17 08:00 06/11/17 08:00 06/11/17 08:00 06/11/17 08:00 06/11/17 08:00 Intake and Output: 06/11/17 06/11/17 06:59 18:59 Intake Total 330 750 Output Total 1200 2350 Balance -870 -1600 - Medications Medications: Current Medications Acetaminophen (Tylenol 325mg Tab) 650 mg PO Q4 PRN PRN Reason: Fever >100.4 F Last Admin: 06/09/17 15:28 Dose: 650 mg Alprazolam (Xanax) 0.25 mg PO TID PRN PRN Reason: Anxiety Stop: 06/17/17 12:33 Last Admin: 06/11/17 04:52 Dose: 0.25 mg Ascorbic Acid (Vitamin C 500 Mg Tab) 500 mg PO DAILY [facility] Last Admin: 06/11/17 10:20 Dose: Not Given Dronabinol (Marinol) 5 mg PO BID [facility] Last Admin: 06/11/17 10:20 Dose: Not Given Enoxaparin Sodium (Lovenox) 30 mg SC DAILY [facility] Last Admin: 06/11/17 10:20 Dose: 30 mg Fentanyl (Duragesic) 1 patch TD Q72 [facility] Tigecycline 50 mg/ Dextrose 50 mls @ 100 mls/hr IVPB Q12H [facility] Last Admin: 06/11/17 10:17 Dose: 100 mls/hr Meropenem 1 gm/ Sodium (Chloride) 100 mls @ 100 mls/hr IVPB Q8H [facility] Last Admin: 06/11/17 11:06 Dose: 100 mls/hr Insulin Aspart (Novolog) 0 unit SC ACHS [facility] PRN Reason: Protocol Last Admin: 06/11/17 12:41 Dose: Not Given Lactobacillus Acidophilus (Bacid Acidophilus) 1 cap PO DAILY [facility] Last Admin: 06/11/17 10:19 Dose: Not Given Loperamide HCl (Imodium) 2 mg PO Q4 PRN PRN Reason: Diarrhea Last Admin: 06/08/17 17:54 Dose: 2 mg Magnesium Hydroxide (Milk Of Magnesia) 30 ml PO DAILY PRN PRN Reason: Constipation Mupirocin (Bactroban Ointment) 1 gm TOP DAILY [facility] Last Admin: 06/11/17 10:19 Dose: Not Given Mupirocin (Bactroban Ointment) 1 gm TOP DAILY@1800 [facility] Last Admin: 06/10/17 17:20 Dose: 1 appl Oxycodone/Acetaminophen (Percocet 5/325 Mg Tab) 1 tab PO Q8H PRN PRN Reason: Pain, moderate (4-7) Stop: 06/12/17 16:21 Last Admin: 06/11/17 10:11 Dose: 1 tab Silver Sulfadiazine (Silvadene 1% 20 Gm) 0 ea TOP QSHIFT [facility] Last Admin: 06/11/17 14:00 Dose: Not Given Zolpidem Tartrate (Ambien) 5 mg PO HS PRN PRN Reason: Insomnia Last Admin: 06/09/17 23:55 Dose: 5 mg - Labs Labs: 06/11/17 07:18 06/11/17 07:18 PT 11.3 SECONDS (9.7-12.2) 06/05/17 17:49 INR 1.0 06/05/17 17:49 APTT 28 SECONDS (21-34) 06/05/17 17:49 - Constitutional Appears: Non-toxic, Cachectic - Head Exam Head Exam: ATRAUMATIC, NORMAL INSPECTION, NORMOCEPHALIC - Eye Exam Eye Exam: EOMI - ENT Exam ENT Exam: Mucous Membranes Moist - Respiratory Exam Respiratory Exam: NORMAL BREATHING PATTERN. absent: Accessory Muscle Use, Respiratory Distress - Cardiovascular Exam Cardiovascular Exam: absent: JVD - GI/Abdominal Exam GI & Abdominal Exam: Soft. absent: Distended Additional comments: Abd is soft. Ileostomy is in place with liquid output noted, no leaks noted at ileostomy site. Tender to light palpation. - Extremities Exam Extremities Exam: Normal Inspection. absent: Calf Tenderness - Neurological Exam Neurological Exam: Alert, Awake - Psychiatric Exam Psychiatric exam: Anxious Assessment and Plan - Assessment and Plan (Free Text) Assessment: 61yo F s/p Ex lap with small bowel resection, bladder repair, Appendectomy, Ileostomy. Patient is s/p R nephrostomy exchange by IR - Continue to apply [place] skin protectant around ostomy appliance. Wound care nursing team also following. - May use topical lidocaine 5% cream around ileostomy site for local anesthesia - f/u urology recs - Possible L nephrostomy tube by IR, pending - Encourage OOB to chair - continue GI/DVT ppx - continue Abx as per ID Discuss with Dr. Misha Viera PGY2 surgery pager: [phone] <Sumeet Cabral - Last Filed: 06/11/17 22:42> Objective - Vital Signs/Intake and Output Vital Signs (last 24 hours): Temp Pulse Resp BP Pulse Ox 98.2 F 105 H 20 99/68 L 100 06/11/17 16:00 06/11/17 16:00 06/11/17 16:00 06/11/17 16:00 06/11/17 16:00 Intake and Output: 06/11/17 06/12/17 18:59 06:59 Intake Total 750 Output Total 2350 Balance -1600 - Medications Medications: Current Medications Acetaminophen (Tylenol 325mg Tab) 650 mg PO Q4 PRN PRN Reason: Fever >100.4 F Last Admin: 06/11/17 22:01 Dose: 650 mg Alprazolam (Xanax) 0.25 mg PO TID PRN PRN Reason: Anxiety Stop: 06/17/17 12:33 Last Admin: 06/11/17 04:52 Dose: 0.25 mg Ascorbic Acid (Vitamin C 500 Mg Tab) 500 mg PO DAILY [facility] Last Admin: 06/11/17 10:20 Dose: Not Given Dronabinol (Marinol) 5 mg PO BID [facility] Last Admin: 06/11/17 18:37 Dose: 5 mg Enoxaparin Sodium (Lovenox) 30 mg SC DAILY [facility] Last Admin: 06/11/17 10:20 Dose: 30 mg Fentanyl (Duragesic) 1 patch TD Q72 [facility] Tigecycline 50 mg/ Dextrose 50 mls @ 100 mls/hr IVPB Q12H [facility] Last Admin: 06/11/17 21:55 Dose: 100 mls/hr Meropenem 1 gm/ Sodium (Chloride) 100 mls @ 100 mls/hr IVPB Q8H [facility] Last Admin: 06/11/17 18:37 Dose: 100 mls/hr Insulin Aspart (Novolog) 0 unit SC ACHS [facility] PRN Reason: Protocol Last Admin: 06/11/17 18:38 Dose: Not Given Lactobacillus Acidophilus (Bacid Acidophilus) 1 cap PO DAILY [facility] Last Admin: 06/11/17 10:19 Dose: Not Given Loperamide HCl (Imodium) 2 mg PO Q4 PRN PRN Reason: Diarrhea Last Admin: 06/08/17 17:54 Dose: 2 mg Magnesium Hydroxide (Milk Of Magnesia) 30 ml PO DAILY PRN PRN Reason: Constipation Mupirocin (Bactroban Ointment) 1 gm TOP DAILY [facility] Last Admin: 06/11/17 10:19 Dose: Not Given Mupirocin (Bactroban Ointment) 1 gm TOP DAILY@1800 [facility] Last Admin: 06/11/17 18:54 Dose: 1 appl Oxycodone/Acetaminophen (Percocet 5/325 Mg Tab) 1 tab PO Q8H PRN PRN Reason: Pain, moderate (4-7) Stop: 06/12/17 16:21 Last Admin: 06/11/17 18:35 Dose: 1 tab Silver Sulfadiazine (Silvadene 1% 20 Gm) 0 ea TOP QSHIFT [facility] Last Admin: 06/11/17 21:57 Dose: 1 unit Zolpidem Tartrate (Ambien) 5 mg PO HS PRN PRN Reason: Insomnia Last Admin: 06/09/17 23:55 Dose: 5 mg - Labs Labs: 06/11/17 07:18 06/11/17 07:18 PT 11.3 SECONDS (9.7-12.2) 06/05/17 17:49 INR 1.0 06/05/17 17:49 APTT 28 SECONDS (21-34) 06/05/17 17:49 Attending/Attestation - Attestation I have personally seen and examined this patient.: Yes I have fully participated in the care of the patient.: Yes I have reviewed all pertinent clinical information, including history, physical exam and plan: Yes Notes (Text): Pt was seen and examined at bedside Agree with above note and assessment Pt with leaking Ileostomy Lidocaine locally Wound care consult c.w current mx Plan d.w pt in detail. Risk and benefit explained in detail.
[2017-06-12] MEDS: Meropenem 1 GM in Sodium Chloride 0.9% 100 ML IVPB SCH ×3 (03:03→18:03)
[2017-06-12] MEDS: Silver Sulfadiazine 1% Cream (20 gm) TOP SCH ×3 (06:03→21:50)
[2017-06-12] MEDS: (Novolog) Insulin Aspart, Recombinant 100 u/ml 10 ml vial SC SCH ×4 (08:03→22:48)
[2017-06-12 08:16] LABS: BASO % 0.4 % (0.0-2.0); EOS # 0.2 K/uL (0.0-0.7); EOS % 1.9 % (0.0-4.0); HEMATOCRIT 32.5 % (34.0-47.0); LYMPH # 2.4 K/uL (1.0-4.3); LYMPH % 23.9 % (20.0-40.0); MEAN CELL VOLUME 85.6 fL (81.0-99.0); MEAN CORPUSCULAR HEMOGLOBIN 28.5 pg (27.0-31.0); MEAN CORPUSCULAR HGB CONC 33.3 g/dL (33.0-37.0); MEAN PLATELET VOLUME 8.5 fL (7.2-11.7); MONO # 0.8 K/uL (0.0-0.8); MONO % 7.6 % (0.0-10.0); RED CELL DISTRIBUTION WIDTH 13.7 % (11.5-14.5)
[2017-06-12 08:20] LABS: WHITE BLOOD COUNT 9.9 K/uL (4.8-10.8)
[2017-06-12 08:55] LABS: ALB/GLOB RATIO 0.6 (1.0-2.1); ALKALINE PHOSPHATASE 168 U/L (38-126); ALT/SGPT 71 U/L (9-52); AST/SGOT 79 U/L (14-36); BILIRUBIN,TOTAL 0.4 mg/dL (0.2-1.3); BLOOD UREA NITROGEN 41 mg/dL (7-17); CALCIUM 8.6 mg/dl (8.6-10.4); CARBON DIOXIDE 25 mmol/L (22-30); CHLORIDE 101 mmol/L (98-107); GFR AFRICAN-AMERICAN > 60; GLUCOSE,RANDOM 159 mg/dL (65-105); MAGNESIUM 1.3 mg/dL (1.6-2.3); SODIUM 132 mmol/L (132-148)
[2017-06-12] MEDS: DEXTROSE 5% IVPB SCH ×2 (10:00→21:46)
[2017-06-12] MEDS: WATER IVPB SCH ×2 (10:00→21:46)
[2017-06-12] MEDS: TIGECYCLINE IVPB SCH ×2 (10:00→21:46)
[2017-06-12] MEDS: Lactobacillus Acidophilus 500 MU Cap PO SCH (10:00)
[2017-06-12] MEDS: Enoxaparin 30 mg Syringe SC SCH (10:00)
--- NOTE | 2017-06-12 14:31 | CP.PCM.PN ---
<Beto Davis - Last Filed: 06/12/17 17:49> Subjective - Date & Time of Evaluation Date of Evaluation: 06/12/17 Time of Evaluation: 06:45 - Subjective Subjective: Surgery progress note. Dr. Cabral Pt seen and examined at bedside. Patient sleeping in bed. Still with abdominal ileostomy site pain. No acute events reported overnight. Objective - Vital Signs/Intake and Output Vital Signs (last 24 hours): Temp Pulse Resp BP Pulse Ox 98.4 F 108 H 19 92/62 L 100 06/12/17 08:12 06/12/17 08:12 06/12/17 08:12 06/12/17 08:12 06/12/17 08:12 Intake and Output: 06/12/17 06/12/17 06:59 18:59 Intake Total 430 Output Total 1900 Balance -1470 - Medications Medications: Current Medications Acetaminophen (Tylenol 325mg Tab) 650 mg PO Q4 PRN PRN Reason: Fever >100.4 F Last Admin: 06/11/17 22:01 Dose: 650 mg Alprazolam (Xanax) 0.25 mg PO TID PRN PRN Reason: Anxiety Stop: 06/17/17 12:33 Last Admin: 06/11/17 04:52 Dose: 0.25 mg Ascorbic Acid (Vitamin C 500 Mg Tab) 500 mg PO DAILY [facility] Last Admin: 06/12/17 10:00 Dose: 500 mg Dronabinol (Marinol) 5 mg PO BID [facility] Last Admin: 06/12/17 10:00 Dose: 5 mg Enoxaparin Sodium (Lovenox) 30 mg SC DAILY [facility] Last Admin: 06/12/17 10:00 Dose: 30 mg Fentanyl (Duragesic) 1 patch TD Q72 [facility] Tigecycline 50 mg/ Dextrose 50 mls @ 100 mls/hr IVPB Q12H [facility] Last Admin: 06/12/17 10:00 Dose: 100 mls/hr Meropenem 1 gm/ Sodium (Chloride) 100 mls @ 100 mls/hr IVPB Q8H [facility] Last Admin: 06/12/17 13:22 Dose: 100 mls/hr Insulin Aspart (Novolog) 0 unit SC ACHS [facility] PRN Reason: Protocol Last Admin: 06/12/17 13:26 Dose: Not Given Lactobacillus Acidophilus (Bacid Acidophilus) 1 cap PO DAILY [facility] Last Admin: 06/12/17 10:00 Dose: 1 cap Loperamide HCl (Imodium) 2 mg PO Q4 PRN PRN Reason: Diarrhea Last Admin: 06/12/17 13:23 Dose: 2 mg Magnesium Hydroxide (Milk Of Magnesia) 30 ml PO DAILY PRN PRN Reason: Constipation Mupirocin (Bactroban Ointment) 1 gm TOP DAILY [facility] Last Admin: 06/12/17 13:26 Dose: 1 gm Mupirocin (Bactroban Ointment) 1 gm TOP DAILY@1800 [facility] Last Admin: 06/11/17 18:54 Dose: 1 appl Oxycodone/Acetaminophen (Percocet 5/325 Mg Tab) 1 tab PO Q8H PRN PRN Reason: Pain, moderate (4-7) Stop: 06/12/17 16:21 Last Admin: 06/11/17 18:35 Dose: 1 tab Silver Sulfadiazine (Silvadene 1% 20 Gm) 0 ea TOP QSHIFT [facility] Last Admin: 06/12/17 13:34 Dose: 1 unit Zolpidem Tartrate (Ambien) 5 mg PO HS PRN PRN Reason: Insomnia Last Admin: 06/09/17 23:55 Dose: 5 mg - Labs Labs: 06/12/17 07:54 06/12/17 07:54 PT 11.3 SECONDS (9.7-12.2) 06/05/17 17:49 INR 1.0 06/05/17 17:49 APTT 28 SECONDS (21-34) 06/05/17 17:49 - Constitutional Appears: Well, No Acute Distress - Head Exam Head Exam: ATRAUMATIC, NORMAL INSPECTION, NORMOCEPHALIC - Eye Exam Eye Exam: EOMI - ENT Exam ENT Exam: Mucous Membranes Moist - Respiratory Exam Respiratory Exam: NORMAL BREATHING PATTERN. absent: Accessory Muscle Use, Respiratory Distress - GI/Abdominal Exam Additional comments: tenderness to palpation around ileostomy site. Bag in place, liquid output noted. No leaks. - Extremities Exam Extremities Exam: Normal Inspection. absent: Calf Tenderness - Neurological Exam Neurological Exam: Alert, Awake - Psychiatric Exam Psychiatric exam: Anxious, Depressed Assessment and Plan - Assessment and Plan (Free Text) Assessment: 61yo F s/p Ex lap with small bowel resection, bladder repair, Appendectomy, Ileostomy. Patient is s/p R nephrostomy exchange by IR - Continue to apply [place] skin protectant around ostomy appliance - Continue with wound care nursing recs for ostomy care - continue Abx as per ID - Topical lidocaine 5% cream around ileostomy site for local anesthesia as needed - Pending ?Cystogram by Urology. Order placed 06/09 by primary team - Possible ?L nephrostomy tube by IR, pending - Encourage OOB to chair Further recs as per Dr. Misha Davis PGY1 surgery pager: [phone] <Sumeet Cabral - Last Filed: 06/13/17 16:44> Objective - Vital Signs/Intake and Output Vital Signs (last 24 hours): Temp Pulse Resp BP Pulse Ox 97.4 F L 101 H 20 113/65 98 06/13/17 15:00 06/13/17 15:00 06/13/17 15:00 06/13/17 15:00 06/13/17 15:00 Intake and Output: 06/13/17 06/13/17 06:59 18:59 Intake Total 270 Output Total 1400 Balance -1130 - Medications Medications: Current Medications Acetaminophen (Tylenol 325mg Tab) 650 mg PO Q4 PRN PRN Reason: Fever >100.4 F Last Admin: 06/12/17 18:04 Dose: 650 mg Alprazolam (Xanax) 0.25 mg PO TID PRN PRN Reason: Anxiety Stop: 06/17/17 12:33 Last Admin: 06/11/17 04:52 Dose: 0.25 mg Ascorbic Acid (Vitamin C 500 Mg Tab) 500 mg PO DAILY [facility] Last Admin: 06/13/17 09:42 Dose: Not Given Dronabinol (Marinol) 5 mg PO BID [facility] Last Admin: 06/13/17 09:41 Dose: Not Given Enoxaparin Sodium (Lovenox) 30 mg SC DAILY [facility] Last Admin: 06/13/17 09:40 Dose: Not Given Fentanyl (Duragesic) 1 patch TD Q72 [facility] Meropenem 1 gm/ Sodium (Chloride) 100 mls @ 100 mls/hr IVPB Q8H [facility] Last Admin: 06/13/17 12:35 Dose: 100 mls Tigecycline 50 mg/ Sodium (Chloride) 100 mls @ 100 mls/hr IVPB Q12H [facility] Insulin Aspart (Novolog) 0 unit SC ACHS [facility] PRN Reason: Protocol Last Admin: 06/13/17 11:53 Dose: Not Given Lactobacillus Acidophilus (Bacid Acidophilus) 1 cap PO DAILY [facility] Last Admin: 06/13/17 09:39 Dose: Not Given Loperamide HCl (Imodium) 2 mg PO Q4 PRN PRN Reason: Diarrhea Last Admin: 06/12/17 13:23 Dose: 2 mg Magnesium Hydroxide (Milk Of Magnesia) 30 ml PO DAILY PRN PRN Reason: Constipation Mupirocin (Bactroban Ointment) 1 gm TOP DAILY [facility] Last Admin: 06/13/17 10:23 Dose: 1 gm Mupirocin (Bactroban Ointment) 1 gm TOP DAILY@1800 [facility] Last Admin: 06/12/17 21:49 Dose: 1 appl Oxycodone/Acetaminophen (Percocet 5/325 Mg Tab) 1 tab PO Q4H PRN PRN Reason: Pain, moderate (4-7) Stop: 06/15/17 21:25 Last Admin: 06/12/17 21:46 Dose: 1 tab Silver Sulfadiazine (Silvadene 1% 20 Gm) 0 ea TOP QSHIFT [facility] Last Admin: 06/13/17 14:30 Dose: Not Given Zolpidem Tartrate (Ambien) 5 mg PO HS PRN PRN Reason: Insomnia Last Admin: 06/09/17 23:55 Dose: 5 mg - Labs Labs: 06/13/17 06:26 06/13/17 06:26 PT 11.3 SECONDS (9.7-12.2) 06/05/17 17:49 INR 1.0 06/05/17 17:49 APTT 28 SECONDS (21-34) 06/05/17 17:49 Attending/Attestation - Attestation I have personally seen and examined this patient.: Yes I have fully participated in the care of the patient.: Yes I have reviewed all pertinent clinical information, including history, physical exam and plan: Yes Notes (Text): Pt was seen and examined at bedside Agree with above note and assessment Ileostomy care L Nephrostomy tomorrow C/w current mx
--- NOTE | 2017-06-12 15:33 | US ---
PROCEDURE: Ultrasound of the Kidneys HISTORY: Pulled left nephrostomy. Evaluate hydro. COMPARISON: None available. TECHNIQUE: Sonogram of the kidneys. FINDINGS: RIGHT KIDNEY: Measures: 10.3 x 4.4 x 5.0 cm. No obstructing calculus or hydronephrosis identified. Nephrostomy tube evident. LEFT KIDNEY: Measures: 8.3 x 4.2 x 3.8 cm. Mild left-sided hydronephrosis/hydroureter. No obstructing calculus identified. OTHER FINDINGS: Mckeon catheter within urinary bladder which is decompressed. IMPRESSION: Right-sided nephrostomy tube. Mild left-sided hydronephrosis/ hydroureter. Mckeon catheter within the urinary bladder which is decompressed.
--- NOTE | 2017-06-12 19:34 | CP.PCM.PN ---
Subjective - Date & Time of Evaluation Date of Evaluation: 06/12/17 Time of Evaluation: 07:00 - Subjective Subjective: Clinically same Objective - Vital Signs/Intake and Output Vital Signs (last 24 hours): Temp Pulse Resp BP Pulse Ox 97.3 F L 101 H 18 98/60 L 98 06/12/17 15:00 06/12/17 15:00 06/12/17 15:00 06/12/17 15:00 06/12/17 15:00 - Medications Medications: Current Medications Acetaminophen (Tylenol 325mg Tab) 650 mg PO Q4 PRN PRN Reason: Fever >100.4 F Last Admin: 06/12/17 18:04 Dose: 650 mg Alprazolam (Xanax) 0.25 mg PO TID PRN PRN Reason: Anxiety Stop: 06/17/17 12:33 Last Admin: 06/11/17 04:52 Dose: 0.25 mg Ascorbic Acid (Vitamin C 500 Mg Tab) 500 mg PO DAILY [facility] Last Admin: 06/12/17 10:00 Dose: 500 mg Dronabinol (Marinol) 5 mg PO BID [facility] Last Admin: 06/12/17 18:04 Dose: 5 mg Enoxaparin Sodium (Lovenox) 30 mg SC DAILY [facility] Last Admin: 06/12/17 10:00 Dose: 30 mg Fentanyl (Duragesic) 1 patch TD Q72 [facility] Tigecycline 50 mg/ Dextrose 50 mls @ 100 mls/hr IVPB Q12H [facility] Last Admin: 06/12/17 10:00 Dose: 100 mls/hr Meropenem 1 gm/ Sodium (Chloride) 100 mls @ 100 mls/hr IVPB Q8H [facility] Last Admin: 06/12/17 18:03 Dose: 100 mls/hr Insulin Aspart (Novolog) 0 unit SC ACHS [facility] PRN Reason: Protocol Last Admin: 06/12/17 16:40 Dose: Not Given Lactobacillus Acidophilus (Bacid Acidophilus) 1 cap PO DAILY [facility] Last Admin: 06/12/17 10:00 Dose: 1 cap Loperamide HCl (Imodium) 2 mg PO Q4 PRN PRN Reason: Diarrhea Last Admin: 06/12/17 13:23 Dose: 2 mg Magnesium Hydroxide (Milk Of Magnesia) 30 ml PO DAILY PRN PRN Reason: Constipation Mupirocin (Bactroban Ointment) 1 gm TOP DAILY [facility] Last Admin: 06/12/17 18:15 Dose: 1 gm Mupirocin (Bactroban Ointment) 1 gm TOP DAILY@1800 [facility] Last Admin: 06/11/17 18:54 Dose: 1 appl Silver Sulfadiazine (Silvadene 1% 20 Gm) 0 ea TOP QSHIFT [facility] Last Admin: 06/12/17 13:34 Dose: 1 unit Zolpidem Tartrate (Ambien) 5 mg PO HS PRN PRN Reason: Insomnia Last Admin: 06/09/17 23:55 Dose: 5 mg - Labs Labs: 06/12/17 07:54 06/12/17 07:54 PT 11.3 SECONDS (9.7-12.2) 06/05/17 17:49 INR 1.0 06/05/17 17:49 APTT 28 SECONDS (21-34) 06/05/17 17:49 Assessment and Plan (1) Abdominal wall pain Status: Acute (2) Dehydration Status: Acute (3) Ileostomy care Status: Acute (4) Urinary tract infection Status: Acute (5) Colonic fistula Status: Acute (6) Displacement of Mckeon catheter Status: Acute (7) Ileostomy bag changed Status: Acute
--- NOTE | 2017-06-12 20:28 | CP.PCM.PN ---
Subjective - Date & Time of Evaluation Date of Evaluation: 06/12/17 Time of Evaluation: 03:00 - Subjective Subjective: dictated Objective - Vital Signs/Intake and Output Vital Signs (last 24 hours): Temp Pulse Resp BP Pulse Ox 97.3 F L 101 H 18 98/60 L 98 06/12/17 15:00 06/12/17 15:00 06/12/17 15:00 06/12/17 15:00 06/12/17 15:00 - Medications Medications: Current Medications Acetaminophen (Tylenol 325mg Tab) 650 mg PO Q4 PRN PRN Reason: Fever >100.4 F Last Admin: 06/12/17 18:04 Dose: 650 mg Alprazolam (Xanax) 0.25 mg PO TID PRN PRN Reason: Anxiety Stop: 06/17/17 12:33 Last Admin: 06/11/17 04:52 Dose: 0.25 mg Ascorbic Acid (Vitamin C 500 Mg Tab) 500 mg PO DAILY [facility] Last Admin: 06/12/17 10:00 Dose: 500 mg Dronabinol (Marinol) 5 mg PO BID [facility] Last Admin: 06/12/17 18:04 Dose: 5 mg Enoxaparin Sodium (Lovenox) 30 mg SC DAILY [facility] Last Admin: 06/12/17 10:00 Dose: 30 mg Fentanyl (Duragesic) 1 patch TD Q72 [facility] Tigecycline 50 mg/ Dextrose 50 mls @ 100 mls/hr IVPB Q12H [facility] Last Admin: 06/12/17 10:00 Dose: 100 mls/hr Meropenem 1 gm/ Sodium (Chloride) 100 mls @ 100 mls/hr IVPB Q8H [facility] Last Admin: 06/12/17 18:03 Dose: 100 mls/hr Insulin Aspart (Novolog) 0 unit SC ACHS [facility] PRN Reason: Protocol Last Admin: 06/12/17 16:40 Dose: Not Given Lactobacillus Acidophilus (Bacid Acidophilus) 1 cap PO DAILY [facility] Last Admin: 06/12/17 10:00 Dose: 1 cap Loperamide HCl (Imodium) 2 mg PO Q4 PRN PRN Reason: Diarrhea Last Admin: 06/12/17 13:23 Dose: 2 mg Magnesium Hydroxide (Milk Of Magnesia) 30 ml PO DAILY PRN PRN Reason: Constipation Mupirocin (Bactroban Ointment) 1 gm TOP DAILY [facility] Last Admin: 06/12/17 18:15 Dose: 1 gm Mupirocin (Bactroban Ointment) 1 gm TOP DAILY@1800 [facility] Last Admin: 06/11/17 18:54 Dose: 1 appl Silver Sulfadiazine (Silvadene 1% 20 Gm) 0 ea TOP QSHIFT [facility] Last Admin: 06/12/17 13:34 Dose: 1 unit Zolpidem Tartrate (Ambien) 5 mg PO HS PRN PRN Reason: Insomnia Last Admin: 06/09/17 23:55 Dose: 5 mg - Labs Labs: 06/12/17 07:54 06/12/17 07:54 PT 11.3 SECONDS (9.7-12.2) 06/05/17 17:49 INR 1.0 06/05/17 17:49 APTT 28 SECONDS (21-34) 06/05/17 17:49
[2017-06-12] MEDS: Oxycodone/Acetaminophen 5/325 mg Tab PO PRN (21:46)
--- NOTE | 2017-06-12 23:27 | CP.PCM.CON ---
Past Patient History - Past Medical History & Family History Past Medical History?: Yes - Past Social History Smoking Status: Never Smoked - CARDIAC Hx Hypertension: Yes - PULMONARY Hx Respiratory Disorders: No - NEUROLOGICAL Hx Neurological Disorder: No - HEENT Hx HEENT Problems: No - RENAL Hx Chronic Kidney Disease: No - ENDOCRINE/METABOLIC Hx Hyperthyroidism: Yes - HEMATOLOGICAL/ONCOLOGICAL Hx Blood Disorders: No - INTEGUMENTARY Hx Dermatological Problems: No - MUSCULOSKELETAL/RHEUMATOLOGICAL Hx Arthritis: Yes (back) - GASTROINTESTINAL Hx Gastrointestinal Disorders: Yes Hx Colitis: Yes Hx Gastroesophageal Reflux: Yes - GENITOURINARY/GYNECOLOGICAL Hx Urinary Tract Infection: Yes - PSYCHIATRIC Hx Substance Use: No - SURGICAL HISTORY Hx Surgeries: Yes Other/Comment: Nephrostomy insertion - ANESTHESIA Hx Anesthesia: Yes Hx Anesthesia Reactions: No Meds Allergies/Adverse Reactions: Allergies Allergy/AdvReac Type Severity Reaction Status Date / Time No Known Allergies Allergy Verified 06/02/17 21:17 - Medications Medications: Current Medications Acetaminophen (Tylenol 325mg Tab) 650 mg PO Q4 PRN PRN Reason: Fever >100.4 F Last Admin: 06/12/17 18:04 Dose: 650 mg Alprazolam (Xanax) 0.25 mg PO TID PRN PRN Reason: Anxiety Stop: 06/17/17 12:33 Last Admin: 06/11/17 04:52 Dose: 0.25 mg Ascorbic Acid (Vitamin C 500 Mg Tab) 500 mg PO DAILY [facility] Last Admin: 06/12/17 10:00 Dose: 500 mg Dronabinol (Marinol) 5 mg PO BID [facility] Last Admin: 06/12/17 18:04 Dose: 5 mg Enoxaparin Sodium (Lovenox) 30 mg SC DAILY [facility] Last Admin: 06/12/17 10:00 Dose: 30 mg Fentanyl (Duragesic) 1 patch TD Q72 [facility] Tigecycline 50 mg/ Dextrose 50 mls @ 100 mls/hr IVPB Q12H [facility] Last Admin: 06/12/17 21:46 Dose: 100 mls/hr Meropenem 1 gm/ Sodium (Chloride) 100 mls @ 100 mls/hr IVPB Q8H [facility] Last Admin: 06/12/17 18:03 Dose: 100 mls/hr Insulin Aspart (Novolog) 0 unit SC ACHS [facility] PRN Reason: Protocol Last Admin: 06/12/17 22:48 Dose: Not Given Lactobacillus Acidophilus (Bacid Acidophilus) 1 cap PO DAILY [facility] Last Admin: 06/12/17 10:00 Dose: 1 cap Loperamide HCl (Imodium) 2 mg PO Q4 PRN PRN Reason: Diarrhea Last Admin: 06/12/17 13:23 Dose: 2 mg Magnesium Hydroxide (Milk Of Magnesia) 30 ml PO DAILY PRN PRN Reason: Constipation Mupirocin (Bactroban Ointment) 1 gm TOP DAILY [facility] Last Admin: 06/12/17 18:15 Dose: 1 gm Mupirocin (Bactroban Ointment) 1 gm TOP DAILY@1800 [facility] Last Admin: 06/12/17 21:49 Dose: 1 appl Oxycodone/Acetaminophen (Percocet 5/325 Mg Tab) 1 tab PO Q4H PRN PRN Reason: Pain, moderate (4-7) Stop: 06/15/17 21:25 Last Admin: 06/12/17 21:46 Dose: 1 tab Silver Sulfadiazine (Silvadene 1% 20 Gm) 0 ea TOP QSHIFT [facility] Last Admin: 06/12/17 21:50 Dose: 1 unit Zolpidem Tartrate (Ambien) 5 mg PO HS PRN PRN Reason: Insomnia Last Admin: 06/09/17 23:55 Dose: 5 mg Results - Vital Signs Recent Vital Signs: Last Vital Signs Temp 97.3 F L 06/12/17 15:00 Pulse 101 H 06/12/17 15:00 Resp 18 06/12/17 15:00 BP 98/60 L 06/12/17 15:00 Pulse Ox 98 06/12/17 15:00 - Labs Result Diagrams: 06/12/17 07:54 06/12/17 07:54 Labs: Laboratory Results - last 24 hr 06/12/17 06/12/17 06/12/17 07:22 07:54 07:54 WBC 9.9 D RBC 3.80 Hgb 10.8 L Hct 32.5 L MCV 85.6 MCH 28.5 MCHC 33.3 RDW 13.7 Plt Count 395 MPV 8.5 Neut % (Auto) 66.2 Lymph % (Auto) 23.9 Elk % (Auto) 7.6 Eos % (Auto) 1.9 Baso % (Auto) 0.4 Neut # 6.5 Lymph # 2.4 Elk # 0.8 Eos # 0.2 Baso # 0.0 Sodium 132 Potassium 5.0 Chloride 101 Carbon Dioxide 25 Anion Gap 11 BUN 41 H Creatinine 0.8 Est GFR ( Amer) > 60 Est GFR (Non-Af Amer) > 60 POC Glucose (mg/dL) 175 H Random Glucose 159 H Calcium 8.6 Phosphorus 4.0 Magnesium 1.3 L Total Bilirubin 0.4 AST 79 H D ALT 71 H D Alkaline Phosphatase 168 H Total Protein 6.0 L Albumin 2.2 L Globulin 3.8 Albumin/Globulin Ratio 0.6 L 06/12/17 06/12/17 06/12/17 10:54 16:48 22:47 WBC RBC Hgb Hct MCV MCH MCHC RDW Plt Count MPV Neut % (Auto) Lymph % (Auto) Elk % (Auto) Eos % (Auto) Baso % (Auto) Neut # Lymph # Elk # Eos # Baso # Sodium Potassium Chloride Carbon Dioxide Anion Gap BUN Creatinine Est GFR ( Amer) Est GFR (Non-Af Amer) POC Glucose (mg/dL) 214 H 165 H 224 H Random Glucose Calcium Phosphorus Magnesium Total Bilirubin AST ALT Alkaline Phosphatase Total Protein Albumin Globulin Albumin/Globulin Ratio Assessment & Plan - Assessment and Plan (Free Text) Assessment: imp: hydronephrosis uti hx of colovesical fistula rec: cystogram culture poss L percutaneous nephrostomy insertion Full note t/f - Date & Time Date: 06/12/17 Time: 10:05
--- NOTE | 2017-06-12 23:38 | PN ---
DATE: 06/12/2017 SUBJECTIVE: The patient was seen today. She had a PICC line when I saw her. T-max was 97.3, pulse 107, blood pressure was 90/60, heart rate of 70. She was still complaining of pain, but she was feeling little better today. PHYSICAL EXAMINATION HEENT: Head is atraumatic. She is frail. NECK: Supple. HEART: Tachycardia. ABDOMEN: Soft, nontender. No guarding present. She did have ileostomy and now there is skin around. It was looking little better. She said that the nephrostomy tube was removed. She had an ileostomy, which was leaking before; has got severe dermatitis and skin reaction. EXTREMITIES: No edema. LABORATORY DATA: Today, her white count was 9.9, hemoglobin 10.8, hematocrit 32.5, platelet count is 395. BUN is 41, creatinine 0.4. ASSESSMENT AND PLAN: The patient was continued on the meropenem and Tygacil. My plan is to give it for 10 days. We will follow if she is still here. She also has left hydronephrosis, which may be chronic. Erlin Miranda MD
[2017-06-13] MEDS: Meropenem 1 GM in Sodium Chloride 0.9% 100 ML IVPB SCH ×3 (02:29→18:27)
[2017-06-13] MEDS: Silver Sulfadiazine 1% Cream (20 gm) TOP SCH ×3 (05:32→21:44)
[2017-06-13 06:37] LABS: BASO % 0.4 % (0.0-2.0); EOS # 0.1 K/uL (0.0-0.7); HEMATOCRIT 32.2 % (34.0-47.0); LYMPH # 3.1 K/uL (1.0-4.3); LYMPH % 41.6 % (20.0-40.0); MEAN CELL VOLUME 85.9 fL (81.0-99.0); MEAN CORPUSCULAR HEMOGLOBIN 27.9 pg (27.0-31.0); MEAN CORPUSCULAR HGB CONC 32.5 g/dL (33.0-37.0); MEAN PLATELET VOLUME 8.1 fL (7.2-11.7); MONO # 0.7 K/uL (0.0-0.8); MONO % 9.8 % (0.0-10.0); NRBC % 0.1 % (0.0-2.0); RED CELL DISTRIBUTION WIDTH 13.6 % (11.5-14.5); WHITE BLOOD COUNT 7.5 K/uL (4.8-10.8)
[2017-06-13 06:54] LABS: ALB/GLOB RATIO 0.6 (1.0-2.1); ALKALINE PHOSPHATASE 184 U/L (38-126); ALT/SGPT 111 U/L (9-52); AST/SGOT 129 U/L (14-36); BILIRUBIN,TOTAL 0.4 mg/dL (0.2-1.3); BLOOD UREA NITROGEN 45 mg/dL (7-17); CALCIUM 8.3 mg/dl (8.6-10.4); CARBON DIOXIDE 25 mmol/L (22-30); CHLORIDE 98 mmol/L (98-107); GFR AFRICAN-AMERICAN > 60; GLUCOSE,RANDOM 86 mg/dL (65-105); MAGNESIUM 1.3 mg/dL (1.6-2.3); PHOSPHOROUS 3.9 mg/dL (2.5-4.5); POTASSIUM 4.5 mmol/L (3.6-5.2); SODIUM 130 mmol/L (132-148); TOTAL PROTEIN 6.2 g/dL (6.3-8.3)
[2017-06-13] MEDS: (Novolog) Insulin Aspart, Recombinant 100 u/ml 10 ml vial SC SCH ×4 (08:25→21:44)
--- NOTE | 2017-06-13 09:09 | CP.PCM.PN ---
Subjective - Date & Time of Evaluation Date of Evaluation: 06/13/17 Time of Evaluation: 07:08 - Subjective Subjective: Surgery Progress note. Dr. Cabral. Pt seen and examined at bedside. No acute events overnight as per nursing staff. Still with pain at ileostomy site. No new complaints. Objective - Vital Signs/Intake and Output Vital Signs (last 24 hours): Temp Pulse Resp BP Pulse Ox 98.8 F 116 H 20 90/54 L 99 06/13/17 08:00 06/13/17 08:00 06/13/17 08:00 06/13/17 08:00 06/13/17 08:00 Intake and Output: 06/13/17 06/13/17 06:59 18:59 Intake Total 270 Output Total 1400 Balance -1130 - Medications Medications: Current Medications Acetaminophen (Tylenol 325mg Tab) 650 mg PO Q4 PRN PRN Reason: Fever >100.4 F Last Admin: 06/12/17 18:04 Dose: 650 mg Alprazolam (Xanax) 0.25 mg PO TID PRN PRN Reason: Anxiety Stop: 06/17/17 12:33 Last Admin: 06/11/17 04:52 Dose: 0.25 mg Ascorbic Acid (Vitamin C 500 Mg Tab) 500 mg PO DAILY [facility] Last Admin: 06/12/17 10:00 Dose: 500 mg Dronabinol (Marinol) 5 mg PO BID [facility] Last Admin: 06/12/17 18:04 Dose: 5 mg Enoxaparin Sodium (Lovenox) 30 mg SC DAILY [facility] Last Admin: 06/12/17 10:00 Dose: 30 mg Fentanyl (Duragesic) 1 patch TD Q72 [facility] Tigecycline 50 mg/ Dextrose 50 mls @ 100 mls/hr IVPB Q12H [facility] Last Admin: 06/12/17 21:46 Dose: 100 mls/hr Meropenem 1 gm/ Sodium (Chloride) 100 mls @ 100 mls/hr IVPB Q8H [facility] Last Admin: 06/13/17 02:29 Dose: 100 mls/hr Insulin Aspart (Novolog) 0 unit SC ACHS [facility] PRN Reason: Protocol Last Admin: 06/13/17 08:25 Dose: Not Given Lactobacillus Acidophilus (Bacid Acidophilus) 1 cap PO DAILY [facility] Last Admin: 06/12/17 10:00 Dose: 1 cap Loperamide HCl (Imodium) 2 mg PO Q4 PRN PRN Reason: Diarrhea Last Admin: 06/12/17 13:23 Dose: 2 mg Magnesium Hydroxide (Milk Of Magnesia) 30 ml PO DAILY PRN PRN Reason: Constipation Mupirocin (Bactroban Ointment) 1 gm TOP DAILY [facility] Last Admin: 06/12/17 18:15 Dose: 1 gm Mupirocin (Bactroban Ointment) 1 gm TOP DAILY@1800 [facility] Last Admin: 06/12/17 21:49 Dose: 1 appl Oxycodone/Acetaminophen (Percocet 5/325 Mg Tab) 1 tab PO Q4H PRN PRN Reason: Pain, moderate (4-7) Stop: 06/15/17 21:25 Last Admin: 06/12/17 21:46 Dose: 1 tab Silver Sulfadiazine (Silvadene 1% 20 Gm) 0 ea TOP QSHIFT [facility] Last Admin: 06/13/17 05:32 Dose: 1 unit Zolpidem Tartrate (Ambien) 5 mg PO HS PRN PRN Reason: Insomnia Last Admin: 06/09/17 23:55 Dose: 5 mg - Labs Labs: 06/13/17 06:26 06/13/17 06:26 PT 11.3 SECONDS (9.7-12.2) 06/05/17 17:49 INR 1.0 06/05/17 17:49 APTT 28 SECONDS (21-34) 06/05/17 17:49 - Constitutional Appears: Non-toxic, No Acute Distress - Head Exam Head Exam: ATRAUMATIC, NORMAL INSPECTION, NORMOCEPHALIC - Eye Exam Eye Exam: EOMI - ENT Exam ENT Exam: Mucous Membranes Moist - Respiratory Exam Respiratory Exam: NORMAL BREATHING PATTERN. absent: Accessory Muscle Use, Respiratory Distress - GI/Abdominal Exam GI & Abdominal Exam: Soft. absent: Guarding, Rigid Additional comments: ileostomy intact. No leaks. Soft abd. No rebound tenderness, no guarding - Extremities Exam Extremities Exam: Normal Inspection. absent: Calf Tenderness - Neurological Exam Neurological Exam: Alert, Awake - Psychiatric Exam Psychiatric exam: Anxious Assessment and Plan - Assessment and Plan (Free Text) Assessment: 61yo F s/p Ex lap with small bowel resection, bladder repair, Appendectomy, Ileostomy. Patient is s/p R nephrostomy exchange by IR - Continue to apply [place] skin protectant around ostomy appliance - Continue with wound care nursing recs for ostomy care - Continue Abx as per ID - Topical lidocaine 5% cream around ileostomy site for local anesthesia as needed - f/u Cystogram as per Urology recs. - Scheduled for nephrostomy tube by IR today. Further recs as per Dr. Misha Davis PGY1 surgery pager: [phone]
[2017-06-13] MEDS: Lactobacillus Acidophilus 500 MU Cap PO SCH (09:39)
[2017-06-13] MEDS: Enoxaparin 30 mg Syringe SC SCH (09:40)
[2017-06-13] MEDS: Magnesium Sulfate 1 gm in D5W 1 GM/100 ML BAG IVPB SCH ×2 (09:53→10:21)
[2017-06-13] MEDS: WATER IVPB SCH (10:20)
[2017-06-13] MEDS: DEXTROSE 5% IVPB SCH (10:20)
[2017-06-13] MEDS: TIGECYCLINE IVPB SCH (10:20)
[2017-06-13] MEDS ORDERED: Lactated Ringer's 1,000 ML IV ONE (10:25)
[2017-06-13] MEDS ORDERED: Iohexol 240 200 ML ONE (11:53)
[2017-06-13] MEDS ORDERED: Midazolam 2 MG/2 ML VIAL ONE (12:15)
[2017-06-13] MEDS ORDERED: Propofol 10 mg/ml Inj (20 ML) ONE (12:17)
[2017-06-13] MEDS ORDERED: Lidocaine 2% Inj (20ml) ONE (12:29)
[2017-06-13] MEDS ORDERED: HYDROmorphone 0.5 mg/0.5 ml ISec IVP PRN (13:20)
--- NOTE | 2017-06-13 13:33 | PCM.SURG1 ---
Surgeon's Initial Post Op Note - Surgeon's Notes Surgeon: Prashant Trinidad MD Presto Log Operator: NONE Type of Anesthesia: IV Sedation Pre-Operative Diagnosis: Hydronephrosis Operative Findings: Left perc. nephrostogram showed duplicated collecting system. Mild caliectasis. Right nephrostogram showed moderate hydronephrosis. Post-Operative Diagnosis: Hydronephrosis Operation Performed: Left 8.5 Fr perc. nephrostomy tube placement. Rigth PCN change for a new 8.5 PCN tube. Specimen/Specimens Removed: NONE Estimated Blood Loss: EBL {In ML}: 3 Blood Products Given: N/A Drains Used: No Drains Post-Op Condition: Poor Date of Surgery/Procedure: 06/13/17 Time of Surgery/Procedure: 13:10
--- NOTE | 2017-06-13 13:44 | RAD ---
PROCEDURE: < Date of procedure: 06/13/2017 Procedure: 1. A right percutaneous nephrostomy tube change 2. Placement of a left percutaneous nephrostomy tube. Radiation: 4.87 mGY Fluoro time: 83.3 seconds Contrast: 80 cubic centimeters Visipaque [id number]. Medications: The patient sedated by the anesthesiologist, 6 cubic centimeters 2 percent lidocaine. HISTORY: Ureteral obstruction, hydronephrosis, TECHNIQUE: Following informed consent and procedure time-out, the patient was placed prone on the interventional table and the skin was marked. The lower back was prepped and draped in the usual sterile fashion. Ultrasound of the left kidney showed mild hydronephrosis. The right nephrostomy tube is in place. After the patient was sedated by the anesthesiologist and the lower back was anesthetized with 6 cc 2% lidocaine, a 21 gauge Chiba needle was advanced percutaneously under direct ultrasound guidance into a posterior lower pole calyx of the left kidney. Contrast was injected through the needle which filled a moderately dilated renal collecting system. A guidewire was advanced through the needle into the ureter. Needle was exchanged for an Accustick coaxial dilator. The dilator was exchanged over the 035 wire for a 8.5 [place] Nephrostomy tube which was formed in the renal pelvis. Position of the tube was confirmed with contrast injection. The tube was secured to patient's skin. The nephrostomy tube was attached to drainage bag. Patient has a cold sore right nephrostomy tube. Under sterile technique nephrostomy no was removed over guidewire and exchanged for a new 8.5 [place] nephrostomy tube formed within the renal pelvis. Nephrostogram performed through nephrostomy tube showed moderate hydronephrosis. The tube was secured to patient's skin. Nephrostogram showed filling of the proximal left ureter. IMPRESSION: Placement of the new left 8.5 [place] nephrostomy tube formed within the renal pelvis. There is a duplicated left renal collecting system. Exchange of right nephrostomy tube for a new 8.5 [place] nephrostomy tube.
--- NOTE | 2017-06-13 17:33 | CP.PCM.PN ---
Subjective - Date & Time of Evaluation Date of Evaluation: 06/13/17 Time of Evaluation: 07:00 - Subjective Subjective: clinically same Objective - Vital Signs/Intake and Output Vital Signs (last 24 hours): Temp Pulse Resp BP Pulse Ox 97.4 F L 101 H 20 113/65 98 06/13/17 15:00 06/13/17 15:00 06/13/17 15:00 06/13/17 15:00 06/13/17 15:00 Intake and Output: 06/13/17 06/13/17 06:59 18:59 Intake Total 270 400 Output Total 1400 350 Balance -1130 50 - Medications Medications: Current Medications Acetaminophen (Tylenol 325mg Tab) 650 mg PO Q4 PRN PRN Reason: Fever >100.4 F Last Admin: 06/12/17 18:04 Dose: 650 mg Alprazolam (Xanax) 0.25 mg PO TID PRN PRN Reason: Anxiety Stop: 06/17/17 12:33 Last Admin: 06/11/17 04:52 Dose: 0.25 mg Ascorbic Acid (Vitamin C 500 Mg Tab) 500 mg PO DAILY [facility] Last Admin: 06/13/17 09:42 Dose: Not Given Dronabinol (Marinol) 5 mg PO BID [facility] Last Admin: 06/13/17 09:41 Dose: Not Given Enoxaparin Sodium (Lovenox) 30 mg SC DAILY [facility] Last Admin: 06/13/17 09:40 Dose: Not Given Fentanyl (Duragesic) 1 patch TD Q72 [facility] Meropenem 1 gm/ Sodium (Chloride) 100 mls @ 100 mls/hr IVPB Q8H [facility] Last Admin: 06/13/17 12:35 Dose: 100 mls Tigecycline 50 mg/ Sodium (Chloride) 100 mls @ 100 mls/hr IVPB Q12H [facility] Insulin Aspart (Novolog) 0 unit SC ACHS [facility] PRN Reason: Protocol Last Admin: 06/13/17 11:53 Dose: Not Given Lactobacillus Acidophilus (Bacid Acidophilus) 1 cap PO DAILY [facility] Last Admin: 06/13/17 09:39 Dose: Not Given Loperamide HCl (Imodium) 2 mg PO Q4 PRN PRN Reason: Diarrhea Last Admin: 06/12/17 13:23 Dose: 2 mg Magnesium Hydroxide (Milk Of Magnesia) 30 ml PO DAILY PRN PRN Reason: Constipation Mupirocin (Bactroban Ointment) 1 gm TOP DAILY [facility] Last Admin: 06/13/17 10:23 Dose: 1 gm Mupirocin (Bactroban Ointment) 1 gm TOP DAILY@1800 [facility] Last Admin: 06/12/17 21:49 Dose: 1 appl Oxycodone/Acetaminophen (Percocet 5/325 Mg Tab) 1 tab PO Q4H PRN PRN Reason: Pain, moderate (4-7) Stop: 06/15/17 21:25 Last Admin: 06/12/17 21:46 Dose: 1 tab Silver Sulfadiazine (Silvadene 1% 20 Gm) 0 ea TOP QSHIFT [facility] Last Admin: 06/13/17 14:30 Dose: Not Given Zolpidem Tartrate (Ambien) 5 mg PO HS PRN PRN Reason: Insomnia Last Admin: 06/09/17 23:55 Dose: 5 mg - Labs Labs: 06/13/17 06:26 06/13/17 06:26 PT 11.3 SECONDS (9.7-12.2) 06/05/17 17:49 INR 1.0 06/05/17 17:49 APTT 28 SECONDS (21-34) 06/05/17 17:49 - Constitutional Appears: Well - Head Exam Head Exam: ATRAUMATIC, NORMAL INSPECTION, NORMOCEPHALIC - Eye Exam Eye Exam: EOMI, Normal appearance, PERRL Pupil Exam: NORMAL ACCOMODATION, PERRL - ENT Exam ENT Exam: Mucous Membranes Moist, Normal Exam - Neck Exam Neck Exam: Full ROM, Normal Inspection. absent: Lymphadenopathy - Respiratory Exam Respiratory Exam: Decreased Breath Sounds - Cardiovascular Exam Cardiovascular Exam: REGULAR RHYTHM, +S1, +S2 - GI/Abdominal Exam GI & Abdominal Exam: Soft, Diminished Bowel Sounds - Rectal Exam Rectal Exam: Deferred Assessment and Plan (1) Abdominal wall pain Status: Acute (2) Dehydration Status: Acute (3) Ileostomy care Status: Acute (4) Urinary tract infection Status: Acute (5) Colonic fistula Status: Acute (6) Displacement of Mckeon catheter Status: Acute (7) Ileostomy bag changed Status: Acute
[2017-06-13] MEDS: Oxycodone/Acetaminophen 5/325 mg Tab PO PRN ×2 (18:26→22:26)
--- NOTE | 2017-06-13 23:52 | CARD ---
APPROVED REPORT EKG Measurement Heart [id number] <Conclusion> Sinus tachycardia Otherwise normal ECG
[2017-06-14] MEDS: Meropenem 1 GM in Sodium Chloride 0.9% 100 ML IVPB SCH ×3 (03:21→19:00)
[2017-06-14] MEDS: Oxycodone/Acetaminophen 5/325 mg Tab PO PRN ×3 (05:44→21:14)
[2017-06-14] MEDS: Silver Sulfadiazine 1% Cream (20 gm) TOP SCH ×3 (05:46→21:42)
[2017-06-14 07:34] LABS: BASO % 0.6 % (0.0-2.0); EOS # 0.2 K/uL (0.0-0.7); EOS % 3.4 % (0.0-4.0); HEMATOCRIT 32.5 % (34.0-47.0); LYMPH # 1.9 K/uL (1.0-4.3); LYMPH % 30.4 % (20.0-40.0); MEAN CELL VOLUME 86.2 fL (81.0-99.0); MEAN CORPUSCULAR HEMOGLOBIN 28.4 pg (27.0-31.0); MEAN PLATELET VOLUME 8.3 fL (7.2-11.7); MONO # 0.7 K/uL (0.0-0.8); MONO % 10.8 % (0.0-10.0); NRBC % 0.2 % (0.0-2.0); RED CELL DISTRIBUTION WIDTH 13.5 % (11.5-14.5); WHITE BLOOD COUNT 6.4 K/uL (4.8-10.8)
[2017-06-14 08:02] LABS: ALB/GLOB RATIO 0.6 (1.0-2.1); ALKALINE PHOSPHATASE 173 U/L (38-126); ALT/SGPT 103 U/L (9-52); AST/SGOT 99 U/L (14-36); BILIRUBIN,TOTAL 0.4 mg/dL (0.2-1.3); BLOOD UREA NITROGEN 44 mg/dL (7-17); CARBON DIOXIDE 29 mmol/L (22-30); CHLORIDE 98 mmol/L (98-107); GFR AFRICAN-AMERICAN > 60; GLUCOSE,RANDOM 194 mg/dL (65-105); MAGNESIUM 1.6 mg/dL (1.6-2.3); PHOSPHOROUS 3.8 mg/dL (2.5-4.5); POTASSIUM 4.3 mmol/L (3.6-5.2); SODIUM 131 mmol/L (132-148); TOTAL PROTEIN 5.8 g/dL (6.3-8.3)
[2017-06-14] MEDS: (Novolog) Insulin Aspart, Recombinant 100 u/ml 10 ml vial SC SCH ×4 (08:02→21:43)
[2017-06-14] MEDS: Enoxaparin 30 mg Syringe SC SCH (10:54)
[2017-06-14] MEDS: Lactobacillus Acidophilus 500 MU Cap PO SCH (10:58)
--- NOTE | 2017-06-14 12:09 | CP.PCM.PN ---
<Beto Davis - Last Filed: 06/14/17 11:58> Subjective - Date & Time of Evaluation Date of Evaluation: 06/14/17 Time of Evaluation: 11:58 - Subjective Subjective: Surgery Progress note. Dr. Cabral Pt seen and examined at bedside. Resting comfortably in bed. Bilateral nephrostomy tubes in place. No complaints reported Objective - Vital Signs/Intake and Output Vital Signs (last 24 hours): Temp Pulse Resp BP Pulse Ox 98.9 F 111 H 21 93/61 L 100 06/14/17 08:26 06/14/17 08:26 06/14/17 08:26 06/14/17 08:26 06/14/17 08:26 Intake and Output: 06/14/17 06/14/17 06:59 18:59 Intake Total 520 Output Total 1000 Balance -480 - Medications Medications: Current Medications Acetaminophen (Tylenol 325mg Tab) 650 mg PO Q4 PRN PRN Reason: Fever >100.4 F Last Admin: 06/12/17 18:04 Dose: 650 mg Alprazolam (Xanax) 0.25 mg PO TID PRN PRN Reason: Anxiety Stop: 06/17/17 12:33 Last Admin: 06/11/17 04:52 Dose: 0.25 mg Ascorbic Acid (Vitamin C 500 Mg Tab) 500 mg PO DAILY [facility] Last Admin: 06/14/17 10:54 Dose: 500 mg Dronabinol (Marinol) 5 mg PO BID [facility] Last Admin: 06/14/17 10:54 Dose: 5 mg Enoxaparin Sodium (Lovenox) 30 mg SC DAILY [facility] Last Admin: 06/14/17 10:54 Dose: 30 mg Fentanyl (Duragesic) 1 patch TD Q72 [facility] Meropenem 1 gm/ Sodium (Chloride) 100 mls @ 100 mls/hr IVPB Q8H [facility] Last Admin: 06/14/17 11:05 Dose: 100 mls/hr Tigecycline 50 mg/ Sodium (Chloride) 100 mls @ 100 mls/hr IVPB Q12H [facility] Last Admin: 06/14/17 10:54 Dose: 100 mls/hr Insulin Aspart (Novolog) 0 unit SC ACHS [facility] PRN Reason: Protocol Last Admin: 06/14/17 08:02 Dose: 1 unit Lactobacillus Acidophilus (Bacid Acidophilus) 1 cap PO DAILY [facility] Last Admin: 06/14/17 10:58 Dose: 1 cap Loperamide HCl (Imodium) 2 mg PO Q4 PRN PRN Reason: Diarrhea Last Admin: 06/14/17 08:02 Dose: 2 mg Magnesium Hydroxide (Milk Of Magnesia) 30 ml PO DAILY PRN PRN Reason: Constipation Mupirocin (Bactroban Ointment) 1 gm TOP DAILY [facility] Last Admin: 06/14/17 10:58 Dose: 1 gm Mupirocin (Bactroban Ointment) 1 gm TOP DAILY@1800 [facility] Last Admin: 06/13/17 21:44 Dose: 1 appl Oxycodone/Acetaminophen (Percocet 5/325 Mg Tab) 1 tab PO Q4H PRN PRN Reason: Pain, moderate (4-7) Stop: 06/15/17 21:25 Last Admin: 06/14/17 05:44 Dose: 1 tab Silver Sulfadiazine (Silvadene 1% 20 Gm) 0 ea TOP QSHIFT [facility] Last Admin: 06/14/17 05:46 Dose: 1 unit Zolpidem Tartrate (Ambien) 5 mg PO HS PRN PRN Reason: Insomnia Last Admin: 06/09/17 23:55 Dose: 5 mg - Labs Labs: 06/14/17 07:10 06/14/17 07:10 PT 11.3 SECONDS (9.7-12.2) 06/05/17 17:49 INR 1.0 06/05/17 17:49 APTT 28 SECONDS (21-34) 06/05/17 17:49 - Constitutional Appears: Well, Non-toxic, No Acute Distress, Cachectic - Head Exam Head Exam: ATRAUMATIC, NORMAL INSPECTION, NORMOCEPHALIC - ENT Exam ENT Exam: Mucous Membranes Moist - Respiratory Exam Respiratory Exam: NORMAL BREATHING PATTERN. absent: Accessory Muscle Use, Respiratory Distress - GI/Abdominal Exam GI & Abdominal Exam: Soft. absent: Distended, Firm, Guarding, Rigid Additional comments: ileostomy in place. No leakage. Bilateral nephrostomy tubes in place - Neurological Exam Neurological Exam: Alert, Awake Assessment and Plan - Assessment and Plan (Free Text) Assessment: 61yo F s/p Ex lap with small bowel resection, bladder repair, Appendectomy, Ileostomy. Patient is s/p R nephrostomy exchange by IR and Left nephrostomy placement 06/13. - Continue to apply [place] skin protectant around ostomy appliance as per wound care nursing - Continue Abx as per ID - Topical lidocaine 5% cream around ileostomy site for local anesthesia as needed - f/u Cystogram as per Urology recs Further recs as per Dr. Misha Davis PGY1 surgery pager: [phone] <Sumeet Cabral - Last Filed: 06/16/17 15:46> Objective - Vital Signs/Intake and Output Vital Signs (last 24 hours): Temp Pulse Resp BP Pulse Ox 97.7 F 102 H 20 106/68 99 06/15/17 16:56 06/15/17 16:56 06/15/17 16:56 06/15/17 16:56 06/15/17 16:56 - Labs Labs: 06/15/17 07:58 06/15/17 07:58 PT 11.3 SECONDS (9.7-12.2) 06/05/17 17:49 INR 1.0 06/05/17 17:49 APTT 28 SECONDS (21-34) 06/05/17 17:49 Attending/Attestation - Attestation I have personally seen and examined this patient.: Yes I have fully participated in the care of the patient.: Yes I have reviewed all pertinent clinical information, including history, physical exam and plan: Yes Notes (Text): Pt was seen and examined at bedside Agree with above note and assessment Pt is improving clinically Ileostomy care DC Plan c/w current mx Plan d.w pt in detail
--- NOTE | 2017-06-14 13:45 | US ---
HISTORY: Ureteral obstruction hydronephrosis TECHNIQUE/FINDINGS: Limited ultrasound of left and right kidneys were performed for purposes of nephrostomy tube placement. Ultrasound left kidney showed a slightly echogenic kidney new with no significant hydronephrosis. OTHER FINDINGS: None. IMPRESSION: Mild left hydronephrosis. Slightly echogenic left kidney.
[2017-06-14 15:51] VITALS: RESP 20
--- NOTE | 2017-06-14 19:21 | CP.PCM.PN ---
Subjective - Date & Time of Evaluation Date of Evaluation: 06/14/17 Time of Evaluation: 07:00 - Subjective Subjective: clinically same Objective - Vital Signs/Intake and Output Vital Signs (last 24 hours): Temp Pulse Resp BP Pulse Ox 98.1 F 105 H 20 91/57 L 93 L 06/14/17 15:20 06/14/17 15:20 06/14/17 15:20 06/14/17 15:20 06/14/17 15:20 - Medications Medications: Current Medications Acetaminophen (Tylenol 325mg Tab) 650 mg PO Q4 PRN PRN Reason: Fever >100.4 F Last Admin: 06/12/17 18:04 Dose: 650 mg Alprazolam (Xanax) 0.25 mg PO TID PRN PRN Reason: Anxiety Stop: 06/17/17 12:33 Last Admin: 06/11/17 04:52 Dose: 0.25 mg Ascorbic Acid (Vitamin C 500 Mg Tab) 500 mg PO DAILY [facility] Last Admin: 06/14/17 10:54 Dose: 500 mg Dronabinol (Marinol) 5 mg PO BID [facility] Last Admin: 06/14/17 18:52 Dose: 5 mg Enoxaparin Sodium (Lovenox) 30 mg SC DAILY [facility] Last Admin: 06/14/17 10:54 Dose: 30 mg Fentanyl (Duragesic) 1 patch TD Q72 [facility] Meropenem 1 gm/ Sodium (Chloride) 100 mls @ 100 mls/hr IVPB Q8H [facility] Last Admin: 06/14/17 11:05 Dose: 100 mls/hr Tigecycline 50 mg/ Sodium (Chloride) 100 mls @ 100 mls/hr IVPB Q12H [facility] Last Admin: 06/14/17 10:54 Dose: 100 mls/hr Insulin Aspart (Novolog) 0 unit SC ACHS [facility] PRN Reason: Protocol Last Admin: 06/14/17 18:18 Dose: Not Given Lactobacillus Acidophilus (Bacid Acidophilus) 1 cap PO DAILY [facility] Last Admin: 06/14/17 10:58 Dose: 1 cap Loperamide HCl (Imodium) 2 mg PO Q4 PRN PRN Reason: Diarrhea Last Admin: 06/14/17 08:02 Dose: 2 mg Magnesium Hydroxide (Milk Of Magnesia) 30 ml PO DAILY PRN PRN Reason: Constipation Mupirocin (Bactroban Ointment) 1 gm TOP DAILY [facility] Last Admin: 06/14/17 10:58 Dose: 1 gm Mupirocin (Bactroban Ointment) 1 gm TOP DAILY@1800 [facility] Last Admin: 06/14/17 18:54 Dose: 1 appl Oxycodone/Acetaminophen (Percocet 5/325 Mg Tab) 1 tab PO Q4H PRN PRN Reason: Pain, moderate (4-7) Stop: 06/15/17 21:25 Last Admin: 06/14/17 13:29 Dose: 1 tab Silver Sulfadiazine (Silvadene 1% 20 Gm) 0 ea TOP QSHIFT [facility] Last Admin: 06/14/17 14:30 Dose: Not Given Zolpidem Tartrate (Ambien) 5 mg PO HS PRN PRN Reason: Insomnia Last Admin: 06/09/17 23:55 Dose: 5 mg - Labs Labs: 06/14/17 07:10 06/14/17 07:10 PT 11.3 SECONDS (9.7-12.2) 06/05/17 17:49 INR 1.0 06/05/17 17:49 APTT 28 SECONDS (21-34) 06/05/17 17:49 - Constitutional Appears: Well - Head Exam Head Exam: ATRAUMATIC, NORMAL INSPECTION, NORMOCEPHALIC - Eye Exam Eye Exam: EOMI, Normal appearance, PERRL Pupil Exam: NORMAL ACCOMODATION, PERRL - ENT Exam ENT Exam: Mucous Membranes Moist, Normal Exam - Neck Exam Neck Exam: Full ROM, Normal Inspection. absent: Lymphadenopathy - Respiratory Exam Respiratory Exam: Decreased Breath Sounds - Cardiovascular Exam Cardiovascular Exam: REGULAR RHYTHM, +S1, +S2 - GI/Abdominal Exam GI & Abdominal Exam: Soft, Diminished Bowel Sounds - Rectal Exam Rectal Exam: Deferred Assessment and Plan (1) Abdominal wall pain Status: Acute (2) Dehydration Status: Acute (3) Ileostomy care Status: Acute (4) Urinary tract infection Status: Acute (5) Colonic fistula Status: Acute (6) Displacement of Mckeon catheter Status: Acute (7) Ileostomy bag changed Status: Acute
--- NOTE | 2017-06-14 23:15 | PCM.URO ---
Urology Progress Note - General General: Tolerating Diet - Subjective Abdominal Pain: No Flank Pain: No Voiding Well: No Chest Pain: No Fever & Chills: No - Objective Lab Studies: Reviewed (anemia, hypoalbuminemia noted) Lab Results Last 24 Hours: Laboratory Results - last 24 hr 06/14/17 06/14/17 06/14/17 07:01 07:10 07:10 WBC 6.4 RBC 3.76 L Hgb 10.7 L Hct 32.5 L MCV 86.2 MCH 28.4 MCHC 33.0 RDW 13.5 Plt Count 344 MPV 8.3 Neut % (Auto) 54.8 Lymph % (Auto) 30.4 [place]le % (Auto) 10.8 H Eos % (Auto) 3.4 Baso % (Auto) 0.6 Neut # 3.5 Lymph # 1.9 Beadle # 0.7 Eos # 0.2 Baso # 0.0 Sodium 131 L Potassium 4.3 Chloride 98 Carbon Dioxide 29 Anion Gap 10 BUN 44 H Creatinine 0.9 Est GFR ( Amer) > 60 Est GFR (Non-Af Amer) > 60 POC Glucose (mg/dL) 190 H Random Glucose 194 H Calcium 8.0 L Phosphorus 3.8 Magnesium 1.6 Total Bilirubin 0.4 AST 99 H D ALT 103 H Alkaline Phosphatase 173 H Total Protein 5.8 L Albumin 2.2 L Globulin 3.7 Albumin/Globulin Ratio 0.6 L 06/14/17 06/14/17 06/14/17 11:20 16:13 21:17 WBC RBC Hgb Hct MCV MCH MCHC RDW Plt Count MPV Neut % (Auto) Lymph % (Auto) [place]eadle % (Auto) Eos % (Auto) Baso % (Auto) Neut # Lymph # Beadle # Eos # Baso # Sodium Potassium Chloride Carbon Dioxide Anion Gap BUN Creatinine Est GFR ( Amer) Est GFR (Non-Af Amer) POC Glucose (mg/dL) 177 H 146 H 202 H Random Glucose Calcium Phosphorus Magnesium Total Bilirubin AST ALT Alkaline Phosphatase Total Protein Albumin Globulin Albumin/Globulin Ratio Intake & Output: Intake & Output 06/14/17 06/14/17 06/15/17 06:59 18:59 06:59 Intake Total 520 Output Total 1000 Balance -480 Intake: Intake, IV Amount 250 Left Antecubital 250 Oral 270 Output: Drainage 1000 Abdomen 400 Left Back 300 Right Back 300 Vital Signs: Vital Signs - 24 hr 06/14/17 06/14/17 06/14/17 01:00 08:26 15:20 Temperature 98.1 F 98.9 F 98.1 F Pulse Rate 104 H 111 H 105 H Respiratory 20 21 20 Rate Blood Pressure 99/59 L 93/61 L 91/57 L O2 Sat by Pulse 99 100 93 L Oximetry - Physical Exam Abdominal Exam: Soft, Non-Tender, Non-Distended Back: No CVA Tenderness (bilat NT in place. L NT inserted by IR) - Plan Additional Information: Imp: urologically stable, w bilat NT in place. discussed w genreal surg and w certified ophthalmic medical technician re: further plans. - Date & Time of Note Date: 06/14/17 Time: 12:05
[2017-06-15] MEDS: Meropenem 1 GM in Sodium Chloride 0.9% 100 ML IVPB SCH ×3 (03:00→18:51)
[2017-06-15] MEDS: (Novolog) Insulin Aspart, Recombinant 100 u/ml 10 ml vial SC SCH ×3 (08:03→18:52)
[2017-06-15 08:06] LABS: BASO % 0.5 % (0.0-2.0); EOS # 0.2 K/uL (0.0-0.7); EOS % 2.2 % (0.0-4.0); HEMATOCRIT 32.8 % (34.0-47.0); LYMPH # 2.3 K/uL (1.0-4.3); LYMPH % 29.2 % (20.0-40.0); MEAN CELL VOLUME 85.4 fL (81.0-99.0); MEAN CORPUSCULAR HEMOGLOBIN 28.3 pg (27.0-31.0); MEAN CORPUSCULAR HGB CONC 33.1 g/dL (33.0-37.0); MEAN PLATELET VOLUME 8.2 fL (7.2-11.7); MONO # 0.6 K/uL (0.0-0.8); MONO % 7.6 % (0.0-10.0); NRBC % 0.1 % (0.0-2.0); RED CELL DISTRIBUTION WIDTH 13.6 % (11.5-14.5); WHITE BLOOD COUNT 7.9 K/uL (4.8-10.8)
[2017-06-15 08:41] LABS: ALB/GLOB RATIO 0.6 (1.0-2.1); ALKALINE PHOSPHATASE 179 U/L (38-126); ALT/SGPT 131 U/L (9-52); AST/SGOT 139 U/L (14-36); BILIRUBIN,TOTAL 0.6 mg/dL (0.2-1.3); BLOOD UREA NITROGEN 37 mg/dL (7-17); CARBON DIOXIDE 26 mmol/L (22-30); CHLORIDE 100 mmol/L (98-107); GFR AFRICAN-AMERICAN > 60; GLUCOSE,RANDOM 102 mg/dL (65-105); MAGNESIUM 1.3 mg/dL (1.6-2.3); POTASSIUM 4.2 mmol/L (3.6-5.2); SODIUM 130 mmol/L (132-148)
[2017-06-15] MEDS: Enoxaparin 30 mg Syringe SC SCH (10:13)
[2017-06-15] MEDS: Lactobacillus Acidophilus 500 MU Cap PO SCH (10:13)
[2017-06-15] MEDS: Magnesium Sulfate 1 gm in D5W 1 GM/100 ML BAG IVPB SCH (10:15)
[2017-06-15] MEDS: Oxycodone/Acetaminophen 5/325 mg Tab PO PRN ×2 (10:19→18:51)
--- NOTE | 2017-06-15 11:46 | CP.PCM.PN ---
<Beto Davis - Last Filed: 06/15/17 11:32> Subjective - Date & Time of Evaluation Date of Evaluation: 06/15/17 Time of Evaluation: 07:10 - Subjective Subjective: Surgery Progress note. Dr. Cabral Pt seen and examined at bedside. No acute events overnight. Ostomy in place. Patient requesting to rest at this time, denies any current complaints. Objective - Vital Signs/Intake and Output Vital Signs (last 24 hours): Temp Pulse Resp BP Pulse Ox 98 F 100 H 20 94/63 L 98 06/15/17 07:41 06/15/17 07:41 06/15/17 07:41 06/15/17 07:41 06/15/17 07:41 Intake and Output: 06/15/17 06/15/17 06:59 18:59 Intake Total 440 300 Output Total 350 800 Balance 90 -500 - Medications Medications: Current Medications Acetaminophen (Tylenol 325mg Tab) 650 mg PO Q4 PRN PRN Reason: Fever >100.4 F Last Admin: 06/12/17 18:04 Dose: 650 mg Alprazolam (Xanax) 0.25 mg PO TID PRN PRN Reason: Anxiety Stop: 06/17/17 12:33 Last Admin: 06/11/17 04:52 Dose: 0.25 mg Ascorbic Acid (Vitamin C 500 Mg Tab) 500 mg PO DAILY [facility] Last Admin: 06/15/17 10:13 Dose: 500 mg Dronabinol (Marinol) 5 mg PO BID [facility] Last Admin: 06/15/17 10:13 Dose: 5 mg Enoxaparin Sodium (Lovenox) 30 mg SC DAILY [facility] Last Admin: 06/15/17 10:13 Dose: 30 mg Fentanyl (Duragesic) 1 patch TD Q72 [facility] Meropenem 1 gm/ Sodium (Chloride) 100 mls @ 100 mls/hr IVPB Q8H [facility] Last Admin: 06/15/17 10:13 Dose: 100 mls/hr Tigecycline 50 mg/ Sodium (Chloride) 100 mls @ 100 mls/hr IVPB Q12H [facility] Last Admin: 06/15/17 10:12 Dose: 100 mls/hr Insulin Aspart (Novolog) 0 unit SC ACHS [facility] PRN Reason: Protocol Last Admin: 06/15/17 08:03 Dose: Not Given Lactobacillus Acidophilus (Bacid Acidophilus) 1 cap PO DAILY [facility] Last Admin: 06/15/17 10:13 Dose: 1 cap Loperamide HCl (Imodium) 2 mg PO Q4 PRN PRN Reason: Diarrhea Last Admin: 06/15/17 05:50 Dose: 2 mg Magnesium Hydroxide (Milk Of Magnesia) 30 ml PO DAILY PRN PRN Reason: Constipation Mupirocin (Bactroban Ointment) 1 gm TOP DAILY [facility] Last Admin: 06/15/17 11:31 Dose: Not Given Mupirocin (Bactroban Ointment) 1 gm TOP DAILY@1800 [facility] Last Admin: 06/14/17 18:54 Dose: 1 appl Oxycodone/Acetaminophen (Percocet 5/325 Mg Tab) 1 tab PO Q4H PRN PRN Reason: Pain, moderate (4-7) Stop: 06/15/17 21:25 Last Admin: 06/15/17 10:19 Dose: 1 tab Silver Sulfadiazine (Silvadene 1% 20 Gm) 0 ea TOP QSHIFT [facility] Last Admin: 06/14/17 21:42 Dose: 1 unit Zolpidem Tartrate (Ambien) 5 mg PO HS PRN PRN Reason: Insomnia Last Admin: 06/09/17 23:55 Dose: 5 mg - Labs Labs: 06/15/17 07:58 06/15/17 07:58 PT 11.3 SECONDS (9.7-12.2) 06/05/17 17:49 INR 1.0 06/05/17 17:49 APTT 28 SECONDS (21-34) 06/05/17 17:49 - Constitutional Appears: Non-toxic, No Acute Distress, Cachectic, Chronically Ill - Head Exam Head Exam: ATRAUMATIC, NORMAL INSPECTION, NORMOCEPHALIC - Eye Exam Eye Exam: EOMI - ENT Exam ENT Exam: Mucous Membranes Moist - Respiratory Exam Respiratory Exam: NORMAL BREATHING PATTERN. absent: Accessory Muscle Use, Respiratory Distress - Cardiovascular Exam Cardiovascular Exam: absent: JVD - GI/Abdominal Exam GI & Abdominal Exam: Soft. absent: Distended, Firm, Guarding, Rigid Additional comments: mild tenderness to RLQ around ostomy site. Wafer in place no leaks. - Neurological Exam Neurological Exam: Alert, Awake - Psychiatric Exam Psychiatric exam: Anxious Assessment and Plan - Assessment and Plan (Free Text) Assessment: 61yo F s/p Ex lap with small bowel resection, bladder repair, Appendectomy, Ileostomy. Patient is s/p R nephrostomy exchange by IR and Left nephrostomy placement 06/13. - Continue to apply [place] skin protectant around ostomy appliance as per wound care nursing - Continue Abx as per ID - Topical lidocaine 5% cream around ileostomy site for local anesthesia as needed - No plans for cystogram as per Urology - No further acute surgical plan - Consider D/C planning Further recs as per Dr. Misha Davis PGY1 surgery pager: [phone] <Sumeet Cabral - Last Filed: 06/16/17 16:00> Objective - Vital Signs/Intake and Output Vital Signs (last 24 hours): Temp Pulse Resp BP Pulse Ox 97.7 F 102 H 20 106/68 99 06/15/17 16:56 06/15/17 16:56 06/15/17 16:56 06/15/17 16:56 06/15/17 16:56 - Labs Labs: 06/15/17 07:58 06/15/17 07:58 PT 11.3 SECONDS (9.7-12.2) 06/05/17 17:49 INR 1.0 06/05/17 17:49 APTT 28 SECONDS (21-34) 06/05/17 17:49 Attending/Attestation - Attestation I have personally seen and examined this patient.: Yes I have fully participated in the care of the patient.: Yes I have reviewed all pertinent clinical information, including history, physical exam and plan: Yes Notes (Text): Pt was seen and examined at bedside Agree with above note and assessment Pt is improving clinically Ileostomy care DC plan Plan d.w pt in detail
[2017-06-15] MEDS: Silver Sulfadiazine 1% Cream (20 gm) TOP SCH (14:16)
[2017-06-15 16:57] VITALS: BP 106/68; PULSE 102; TEMP 97.7; O2SAT 99
--- NOTE | 2017-06-15 16:58 | CP.PCM.PN ---
Subjective - Date & Time of Evaluation Date of Evaluation: 06/15/17 Time of Evaluation: 04:20 - Subjective Subjective: dictated Objective - Vital Signs/Intake and Output Vital Signs (last 24 hours): Temp Pulse Resp BP Pulse Ox 97.7 F 102 H 20 106/68 99 06/15/17 16:56 06/15/17 16:56 06/15/17 16:56 06/15/17 16:56 06/15/17 16:56 Intake and Output: 06/15/17 06/15/17 06:59 18:59 Intake Total 440 950 Output Total 350 1700 Balance 90 -750 - Medications Medications: Current Medications Acetaminophen (Tylenol 325mg Tab) 650 mg PO Q4 PRN PRN Reason: Fever >100.4 F Last Admin: 06/12/17 18:04 Dose: 650 mg Alprazolam (Xanax) 0.25 mg PO TID PRN PRN Reason: Anxiety Stop: 06/17/17 12:33 Last Admin: 06/11/17 04:52 Dose: 0.25 mg Ascorbic Acid (Vitamin C 500 Mg Tab) 500 mg PO DAILY [facility] Last Admin: 06/15/17 10:13 Dose: 500 mg Dronabinol (Marinol) 5 mg PO BID [facility] Last Admin: 06/15/17 10:13 Dose: 5 mg Enoxaparin Sodium (Lovenox) 30 mg SC DAILY [facility] Last Admin: 06/15/17 10:13 Dose: 30 mg Fentanyl (Duragesic) 1 patch TD Q72 [facility] Meropenem 1 gm/ Sodium (Chloride) 100 mls @ 100 mls/hr IVPB Q8H [facility] Last Admin: 06/15/17 10:13 Dose: 100 mls/hr Tigecycline 50 mg/ Sodium (Chloride) 100 mls @ 100 mls/hr IVPB Q12H [facility] Last Admin: 06/15/17 10:12 Dose: 100 mls/hr Insulin Aspart (Novolog) 0 unit SC ACHS [facility] PRN Reason: Protocol Last Admin: 06/15/17 12:38 Dose: Not Given Lactobacillus Acidophilus (Bacid Acidophilus) 1 cap PO DAILY [facility] Last Admin: 06/15/17 10:13 Dose: 1 cap Loperamide HCl (Imodium) 2 mg PO Q4 PRN PRN Reason: Diarrhea Last Admin: 06/15/17 05:50 Dose: 2 mg Magnesium Hydroxide (Milk Of Magnesia) 30 ml PO DAILY PRN PRN Reason: Constipation Mupirocin (Bactroban Ointment) 1 gm TOP DAILY [facility] Last Admin: 06/15/17 11:31 Dose: Not Given Mupirocin (Bactroban Ointment) 1 gm TOP DAILY@1800 [facility] Last Admin: 06/14/17 18:54 Dose: 1 appl Oxycodone/Acetaminophen (Percocet 5/325 Mg Tab) 1 tab PO Q4H PRN PRN Reason: Pain, moderate (4-7) Stop: 06/15/17 21:25 Last Admin: 06/15/17 10:19 Dose: 1 tab Silver Sulfadiazine (Silvadene 1% 20 Gm) 0 ea TOP QSHIFT [facility] Last Admin: 06/15/17 14:16 Dose: Not Given Zolpidem Tartrate (Ambien) 5 mg PO HS PRN PRN Reason: Insomnia Last Admin: 06/09/17 23:55 Dose: 5 mg - Labs Labs: 06/15/17 07:58 06/15/17 07:58 PT 11.3 SECONDS (9.7-12.2) 06/05/17 17:49 INR 1.0 06/05/17 17:49 APTT 28 SECONDS (21-34) 06/05/17 17:49
--- NOTE | 2017-06-15 17:40 | CP.PCM.PN ---
Subjective - Date & Time of Evaluation Date of Evaluation: 06/15/17 Time of Evaluation: 11:00 - Subjective Subjective: Awake, alert, follows commands, no acute distress. Objective - Vital Signs/Intake and Output Vital Signs (last 24 hours): Temp Pulse Resp BP Pulse Ox 97.7 F 102 H 20 106/68 99 06/15/17 16:56 06/15/17 16:56 06/15/17 16:56 06/15/17 16:56 06/15/17 16:56 Intake and Output: 06/15/17 06/15/17 06:59 18:59 Intake Total 440 950 Output Total 350 1700 Balance 90 -750 - Medications Medications: Current Medications Acetaminophen (Tylenol 325mg Tab) 650 mg PO Q4 PRN PRN Reason: Fever >100.4 F Last Admin: 06/12/17 18:04 Dose: 650 mg Alprazolam (Xanax) 0.25 mg PO TID PRN PRN Reason: Anxiety Stop: 06/17/17 12:33 Last Admin: 06/11/17 04:52 Dose: 0.25 mg Ascorbic Acid (Vitamin C 500 Mg Tab) 500 mg PO DAILY [facility] Last Admin: 06/15/17 10:13 Dose: 500 mg Dronabinol (Marinol) 5 mg PO BID [facility] Last Admin: 06/15/17 10:13 Dose: 5 mg Enoxaparin Sodium (Lovenox) 30 mg SC DAILY [facility] Last Admin: 06/15/17 10:13 Dose: 30 mg Fentanyl (Duragesic) 1 patch TD Q72 [facility] Meropenem 1 gm/ Sodium (Chloride) 100 mls @ 100 mls/hr IVPB Q8H [facility] Last Admin: 06/15/17 10:13 Dose: 100 mls/hr Tigecycline 50 mg/ Sodium (Chloride) 100 mls @ 100 mls/hr IVPB Q12H [facility] Last Admin: 06/15/17 10:12 Dose: 100 mls/hr Insulin Aspart (Novolog) 0 unit SC ACHS [facility] PRN Reason: Protocol Last Admin: 06/15/17 12:38 Dose: Not Given Lactobacillus Acidophilus (Bacid Acidophilus) 1 cap PO DAILY [facility] Last Admin: 06/15/17 10:13 Dose: 1 cap Loperamide HCl (Imodium) 2 mg PO Q4 PRN PRN Reason: Diarrhea Last Admin: 06/15/17 05:50 Dose: 2 mg Magnesium Hydroxide (Milk Of Magnesia) 30 ml PO DAILY PRN PRN Reason: Constipation Mupirocin (Bactroban Ointment) 1 gm TOP DAILY [facility] Last Admin: 06/15/17 11:31 Dose: Not Given Mupirocin (Bactroban Ointment) 1 gm TOP DAILY@1800 [facility] Last Admin: 06/14/17 18:54 Dose: 1 appl Oxycodone/Acetaminophen (Percocet 5/325 Mg Tab) 1 tab PO Q4H PRN PRN Reason: Pain, moderate (4-7) Stop: 06/15/17 21:25 Last Admin: 06/15/17 10:19 Dose: 1 tab Silver Sulfadiazine (Silvadene 1% 20 Gm) 0 ea TOP QSHIFT [facility] Last Admin: 06/15/17 14:16 Dose: Not Given Zolpidem Tartrate (Ambien) 5 mg PO HS PRN PRN Reason: Insomnia Last Admin: 06/09/17 23:55 Dose: 5 mg - Labs Labs: 06/15/17 07:58 06/15/17 07:58 PT 11.3 SECONDS (9.7-12.2) 06/05/17 17:49 INR 1.0 06/05/17 17:49 APTT 28 SECONDS (21-34) 06/05/17 17:49 Assessment and Plan - Assessment and Plan (Free Text) Assessment: Patient is seen and examined. Alert, awake, follows commands, c/o pain around the stoma. Seen by wound care nurse and skin care done. Appetite is poor, encouraged small frequent feedings. Cleared by surgery, no further procedures planned for now. D/W DR Miranda and DR Nadja Higgins, plan to discharge back to [facility]. Patient verbalized understanding of the transfer.To be followed by the wound care nurse there.
--- NOTE | 2017-06-15 18:07 | CP.PCM.PN ---
Subjective - Date & Time of Evaluation Date of Evaluation: 06/15/17 Time of Evaluation: 07:00 - Subjective Subjective: clinically same Objective - Vital Signs/Intake and Output Vital Signs (last 24 hours): Temp Pulse Resp BP Pulse Ox 97.7 F 102 H 20 106/68 99 06/15/17 16:56 06/15/17 16:56 06/15/17 16:56 06/15/17 16:56 06/15/17 16:56 Intake and Output: 06/15/17 06/15/17 06:59 18:59 Intake Total 440 950 Output Total 350 1700 Balance 90 -750 - Medications Medications: Current Medications Acetaminophen (Tylenol 325mg Tab) 650 mg PO Q4 PRN PRN Reason: Fever >100.4 F Last Admin: 06/12/17 18:04 Dose: 650 mg Alprazolam (Xanax) 0.25 mg PO TID PRN PRN Reason: Anxiety Stop: 06/17/17 12:33 Last Admin: 06/11/17 04:52 Dose: 0.25 mg Ascorbic Acid (Vitamin C 500 Mg Tab) 500 mg PO DAILY [facility] Last Admin: 06/15/17 10:13 Dose: 500 mg Dronabinol (Marinol) 5 mg PO BID [facility] Last Admin: 06/15/17 10:13 Dose: 5 mg Enoxaparin Sodium (Lovenox) 30 mg SC DAILY [facility] Last Admin: 06/15/17 10:13 Dose: 30 mg Fentanyl (Duragesic) 1 patch TD Q72 [facility] Meropenem 1 gm/ Sodium (Chloride) 100 mls @ 100 mls/hr IVPB Q8H [facility] Last Admin: 06/15/17 10:13 Dose: 100 mls/hr Tigecycline 50 mg/ Sodium (Chloride) 100 mls @ 100 mls/hr IVPB Q12H [facility] Last Admin: 06/15/17 10:12 Dose: 100 mls/hr Insulin Aspart (Novolog) 0 unit SC ACHS [facility] PRN Reason: Protocol Last Admin: 06/15/17 12:38 Dose: Not Given Lactobacillus Acidophilus (Bacid Acidophilus) 1 cap PO DAILY [facility] Last Admin: 06/15/17 10:13 Dose: 1 cap Loperamide HCl (Imodium) 2 mg PO Q4 PRN PRN Reason: Diarrhea Last Admin: 06/15/17 05:50 Dose: 2 mg Magnesium Hydroxide (Milk Of Magnesia) 30 ml PO DAILY PRN PRN Reason: Constipation Mupirocin (Bactroban Ointment) 1 gm TOP DAILY [facility] Last Admin: 06/15/17 11:31 Dose: Not Given Mupirocin (Bactroban Ointment) 1 gm TOP DAILY@1800 [facility] Last Admin: 06/14/17 18:54 Dose: 1 appl Oxycodone/Acetaminophen (Percocet 5/325 Mg Tab) 1 tab PO Q4H PRN PRN Reason: Pain, moderate (4-7) Stop: 06/15/17 21:25 Last Admin: 06/15/17 10:19 Dose: 1 tab Silver Sulfadiazine (Silvadene 1% 20 Gm) 0 ea TOP QSHIFT [facility] Last Admin: 06/15/17 14:16 Dose: Not Given Zolpidem Tartrate (Ambien) 5 mg PO HS PRN PRN Reason: Insomnia Last Admin: 06/09/17 23:55 Dose: 5 mg - Labs Labs: 06/15/17 07:58 06/15/17 07:58 PT 11.3 SECONDS (9.7-12.2) 06/05/17 17:49 INR 1.0 06/05/17 17:49 APTT 28 SECONDS (21-34) 06/05/17 17:49 - Constitutional Appears: Well - Head Exam Head Exam: ATRAUMATIC, NORMAL INSPECTION, NORMOCEPHALIC - Eye Exam Eye Exam: EOMI, Normal appearance, PERRL Pupil Exam: NORMAL ACCOMODATION, PERRL - ENT Exam ENT Exam: Mucous Membranes Moist, Normal Exam - Neck Exam Neck Exam: Full ROM, Normal Inspection. absent: Lymphadenopathy - Respiratory Exam Respiratory Exam: Decreased Breath Sounds - Cardiovascular Exam Cardiovascular Exam: REGULAR RHYTHM, +S1, +S2 - GI/Abdominal Exam GI & Abdominal Exam: Soft, Diminished Bowel Sounds - Rectal Exam Rectal Exam: Deferred Assessment and Plan (1) Abdominal wall pain Status: Acute (2) Dehydration Status: Acute (3) Ileostomy care Status: Acute (4) Urinary tract infection Status: Acute (5) Colonic fistula Status: Acute (6) Displacement of Mckeon catheter Status: Acute (7) Ileostomy bag changed Status: Acute
--- NOTE | 2017-06-15 20:48 | CP.PCM.PN ---
Subjective - Date & Time of Evaluation Date of Evaluation: 06/15/17 Time of Evaluation: 04:35 - Subjective Subjective: dictated Objective - Vital Signs/Intake and Output Vital Signs (last 24 hours): Temp Pulse Resp BP Pulse Ox 97.7 F 102 H 20 106/68 99 06/15/17 16:56 06/15/17 16:56 06/15/17 16:56 06/15/17 16:56 06/15/17 16:56 Intake and Output: 06/15/17 06/16/17 18:59 06:59 Intake Total 950 Output Total 1700 Balance -750 - Labs Labs: 06/15/17 07:58 06/15/17 07:58 PT 11.3 SECONDS (9.7-12.2) 06/05/17 17:49 INR 1.0 06/05/17 17:49 APTT 28 SECONDS (21-34) 06/05/17 17:49
--- NOTE | 2017-06-16 12:39 | PN ---
DATE: 06/15/2017 INFECTIOUS DISEASE FOLLOWUP NOTE SUBJECTIVE: The patient was seen today around 4:30 or 5 o'clock, and the patient's son was at the bedside. We discussed and she did get bilateral nephrostomy tubes. She has skin irritation still from the colostomy. At this time, it is looking better, and he was saying that if she does not have any leak from the colostomy, they could even take her home. The patient is thanking and she looks better. PHYSICAL EXAMINATION GENERAL: She is cachectic. VITAL SIGNS: T-max is 97.7, pulse is 102, blood pressure is 106/68, respirations are 20. HEENT: Head is atraumatic and normocephalic. NECK: Supple. LUNGS: Clear. HEART: S1, S2, tachycardic. ABDOMEN: She has a colostomy and she had dermatitis because of the leak, which is markedly improved at this time. GENITOURINARY: Bilateral nephrostomy tube, draining clear urine. EXTREMITIES: Have no edema. LABORATORY DATA: Labs are noted. Labs show white count is 7.9, hemoglobin 10.9, hematocrit is stable and her creatinine is 0.8. ASSESSMENT AND PLAN: She does have elevated liver enzymes, so we will discontinue the Tygacil and continue meropenem for one more week as she has left hydronephrosis and she will be getting that in the rehab I am told as she has right arm PICC line present at this time. Erlin Miranda MD
--- NOTE | 2017-06-19 01:04 | CON ---
DATE: 06/12/2017 06/12/2017 UROLOGY CONSULTATION REQUESTED BY: Wilfrido Higgins MD FILLED BY: Yoon Fernandez MD REASON FOR CONSULTATION: Hydronephrosis. Urinary tract infection. HISTORY OF PRESENT ILLNESS: Patient is a 61-year-old female with hydronephrosis. Patient is in, [id number]. The patient was admitted to hospital on 06/05/2017. The patient was admitted with abdominal pain. Patient has had leakage of bowel contents at the site of her ileostomy. Patient has had a complicated history for the last 6 months. 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 She was treated at [facility] with further surgery for a enterovesical fistula. The patient has had weakness. She was recently discharged from [facility]. From urologic perspective, patient has had bilateral indwelling nephrostomy tubes. The nephrostomy tube on the left had fallen out last month. Followup ultrasound did not show obstruction. In fact, the urine output had increased through the Mckeon catheter and this was presumed to be from the left kidney. Patient has a right nephrostomy tube in place. Patient has had fair appetite. No hematuria. No recent fever or rigors. The patient overall reports less abdominal pain than prior to her surgeries. The patient has had surgery care and consultation during this admission. See attached reports. Patient has been treated with antibiotic therapy. Mrs. Higgins had a CT scan and renal ultrasound performed. The CT scan was performed last week and demonstrated left hydronephrosis. The right nephrostomy tube was in good position. PHYSICAL EXAMINATION: GENERAL: Patient is a thin, elderly female. Patient appears to be in no acute distress. ABDOMEN: Soft, nondistended, nontender. There is a healed scar. There is a right lower quadrant ileostomy. There is no abdominal mass or tenderness appreciated. LABORATORY DATA: Reviewed as well. White blood count 5000, hematocrit 26.6. BUN is 25, creatinine 0.5. Albumin is 2.2. Blood cultures revealed no growth. Urine culture reveals Pseudomonas and E-coli. Wound culture also reveals Klebsiella and Staph epidermidis. IMPRESSION: A 61-year-old female with hydronephrosis. History of indwelling right nephrostomy tube. Previous left indwelling nephrostomy tube. 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 RECOMMENDATION AND PLAN: Follow up renal ultrasound. Possible need for replacement of nephrostomy tube. Further therapy to follow according to the patient's clinical course. Thank you for recommending the patient for urology consultation. Yoon Fernandez MD cc: Wilfrido Higgins MD; Misha Fay MD
== END 2017-06-15 20:12 | DRG 304 ==
LOC: C.ER 16:32 → C.3T 19:15
PROVIDERS: ADMIT Internal Medicine Nephrology; ATTEND Internal Medicine Nephrology
PROC: 0T25X0Z Change Drainage Device in Kidney, External Approach (ICD-10-PCS; 2017-06-13)
PROC: 0T9430Z Drainage of Left Kidney Pelvis with Drainage Device, Percutaneous Approach (ICD-10-PCS; principal; 2017-06-13 12:00)
DX: N13.1 Hydronephrosis with ureteral stricture, not elsewhere classified (principal); K94.19 Other complications of enterostomy; K63.2 Fistula of intestine; R64 Cachexia; I95.9 Hypotension, unspecified; E83.42 Hypomagnesemia; N39.0 Urinary tract infection, site not specified; E86.0 Dehydration; E05.90 Thyrotoxicosis, unspecified without thyrotoxic crisis or storm; D64.9 Anemia, unspecified; E03.9 Hypothyroidism, unspecified; E11.9 Type 2 diabetes mellitus without complications; Y83.3 Surgical operation with formation of external stoma as the cause of abnormal reaction of the patient, or of later complication, without mention of misadventure at the time of the procedure; T83.021A Displacement of indwelling urethral catheter, initial encounter; L30.9 Dermatitis, unspecified; Y73.8 Miscellaneous gastroenterology and urology devices associated with adverse incidents, not elsewhere classified; Z87.440 Personal history of urinary (tract) infections; G47.00 Insomnia, unspecified; I10 Essential (primary) hypertension; K21.9 Gastro-esophageal reflux disease without esophagitis; R74.8 Abnormal levels of other serum enzymes

== ENCOUNTER 2017-06-20 13:23 | Inpatient (IN) | payer MEDICAID, OTHER ==
[2017-06-20 13:23] VITALS: BMI 17.6
[2017-06-20 14:50] LABS: BASO # 0.1 K/uL (0.0-0.2); EOS # 0.1 K/uL (0.0-0.7); EOS % 1.2 % (0.0-4.0); HEMATOCRIT 31.4 % (34.0-47.0); LYMPH # 2.2 K/uL (1.0-4.3); LYMPH % 22.3 % (20.0-40.0); MEAN CELL VOLUME 85.9 fL (81.0-99.0); MEAN CORPUSCULAR HEMOGLOBIN 28.1 pg (27.0-31.0); MEAN CORPUSCULAR HGB CONC 32.7 g/dL (33.0-37.0); MEAN PLATELET VOLUME 8.1 fL (7.2-11.7); MONO # 0.5 K/uL (0.0-0.8); NRBC % 0.1 % (0.0-2.0); RED CELL DISTRIBUTION WIDTH 13.8 % (11.5-14.5); WHITE BLOOD COUNT 10.1 K/uL (4.8-10.8)
[2017-06-20] MEDS: Sodium Chloride 0.9% 1,000 ML IV SCH ×2 (14:53→21:46)
--- NOTE | 2017-06-20 14:55 | C.PDOC ---
History Of Present Illness Malina Higgins is a 61 year old female, with a past medical history of HTN, who presents to the emergency department via EMS [facility] with ileostomy in place for leakage of ileostomy site involving the site. Patient now has ongoing pain to skin area surrounding her osteomy site. PICC line in place and treated for ESBL by Dr. Higgins. No further medical complaints. PMD: Tonya Higgins Time Seen by Provider: 06/20/17 13:32 Chief Complaint (Nursing): Abdominal Pain History Per: Patient History/Exam Limitations: no limitations Onset/Duration Of Symptoms: Days Quality Of Discomfort: "Pain" Past Medical History Reviewed: Historical Data, Nursing Documentation, Vital Signs Vital Signs: Last Vital Signs Temp 97.4 F L 06/20/17 13:30 Pulse 124 H 06/20/17 13:30 Resp 19 06/20/17 13:30 BP 107/78 06/20/17 13:30 Pulse Ox 100 06/20/17 15:36 - Medical History PMH: Arthritis (back), HTN, Hyperthyroidism Denies: Chronic Kidney Disease - [facility] Procedures BYPASS ILEUM TO CUTANEOUS, OPEN APPROACH (04/04/17) CHANGE DRAINAGE DEVICE IN KIDNEY, EXTERNAL APPROACH (06/05/17) COMPRESSION OF ABDOMINAL WALL USING PRESSURE DRESSING (04/04/17) DRAINAGE OF ABDOMEN SKIN, EXTERNAL APPROACH, DIAGNOSTIC (04/04/17) DRAINAGE OF LEFT KIDNEY PELVIS WITH DRAIN DEV, PERC APPROACH (06/05/17) DRAINAGE OF PERITONEAL CAVITY WITH DRAIN DEV, OPEN APPROACH (04/04/17) EXCISION OF ABDOMEN SKIN, EXTERNAL APPROACH (04/04/17) EXCISION OF ILEUM, OPEN APPROACH (04/04/17) EXTIRPATION OF MATTER FROM R LG INTEST, OPEN APPROACH (04/04/17) INSERTION OF FEEDING DEVICE INTO STOMACH, OPEN APPROACH (04/04/17) INTRODUCTION OF NUTRITIONAL INTO UP GI, VIA OPENING (04/04/17) RELEASE PERITONEUM, OPEN APPROACH (04/04/17) REPAIR BLADDER, OPEN APPROACH (04/04/17) RESECTION OF APPENDIX, OPEN APPROACH (04/04/17) Family History: States: Unknown Family Hx - Social History Hx Alcohol Use: No Hx Substance Use: No - Immunization History Hx Tetanus Toxoid Vaccination: No Hx Influenza Vaccination: No Hx Pneumococcal Vaccination: No Review Of Systems Except As Marked, All Systems Reviewed And Found Negative. Gastrointestinal: Positive for: Abdominal Pain Physical Exam - Physical Exam Skin: Normal Color, Warm, Dry Head: Atraumatic, Normacephalic Eye(s): bilateral: Normal Inspection, PERRL, EOMI Neck: Normal, Normal ROM, Supple Cardiovascular: Rhythm Regular Respiratory: Normal Breath Sounds, No Accessory Muscle Use Gastrointestinal/Abdominal: Normal Exam, Soft, No Tenderness, No Guarding, No Rebound, Other (Ileostomy in place with leakage and fecal material involved. Surrounding skin is erythematous. No crepitus. No blister formation.) Extremity: Normal ROM, No Deformity, Other (PICC line in place to right bicep region of arm. ) Neurological/Psych: Oriented x3, Normal Speech ED Course And Treatment - Laboratory Results Result Diagrams: 06/20/17 14:44 06/20/17 14:44 ECG Rhythm: Sinus Tachycardia Interpretation Of ECG: No intervals, No axis, No ST-T wave abnormalities. Rate From EC O2 Sat by Pulse Oximetry: 100 (RA) Pulse Ox Interpretation: Normal - Other Rad CXR X-Ray: Viewed By Me, Read By Radiologist Interpretation: HISTORY: Sepsis Patient. COMPARISON: 06/05/2017. FINDINGS: LUNGS: No active pulmonary disease. PLEURA: No significant pleural effusion identified, no pneumothorax apparent. CARDIOVASCULAR: Normal. Right PICC line insertion-tip cavoatrial junction -as before. OSSEOUS STRUCTURES: No significant abnormalities. VISUALIZED UPPER ABDOMEN: Normal. OTHER FINDINGS: Prior right upper quadrant abdominal nephrostomy tube previously partially visualized-not appreciated on this exam. IMPRESSION: No interval cardiopulmonary pathology appreciated. Medical Decision Making Medical Decision Making: Initial Impression: Cellulitis Initial Plan: --EKG --NS IV 1,000 ml @ 150 mls/hr --Blood culture --Urine culture --Urinalysis --reevaluation -Spoke with Dr. Higgins who will admit patient to medical floor for cellulitis. Disposition Discussed With : Tonya Higgins Doctor Will See Patient In The: Hospital - Disposition Disposition: HOSPITALIZED Disposition Time: 14:54 Condition: FAIR - Clinical Impression Clinical Impression: Abdominal wall pain, Ileostomy care - Scribe Statement Rahul Rhodes Provider Attestation: All medical record entries made by the Scribe were at my direction and personally dictated by me. I have reviewed the chart and agree that the record accurately reflects my personal performance of the history, physical exam, medical decision making, and the department course for this patient. I have also personally directed, reviewed, and agree with the discharge instructions and disposition.
--- NOTE | 2017-06-20 14:55 | RAD ---
HISTORY: Sepsis Patient COMPARISON: 06/05/2017 FINDINGS: LUNGS: No active pulmonary disease. PLEURA: No significant pleural effusion identified, no pneumothorax apparent. CARDIOVASCULAR: Normal. Right PICC line insertion-tip cavoatrial junction -as before OSSEOUS STRUCTURES: No significant abnormalities. VISUALIZED UPPER ABDOMEN: Normal. OTHER FINDINGS: Prior right upper quadrant abdominal nephrostomy tube previously partially visualized-not appreciated on this exam IMPRESSION: No interval cardiopulmonary pathology appreciated.
[2017-06-20 15:15] LABS: ALB/GLOB RATIO 0.5 (1.0-2.1); ALKALINE PHOSPHATASE 134 U/L (38-126); ALT/SGPT 99 U/L (9-52); AST/SGOT 62 U/L (14-36); BILIRUBIN,TOTAL 0.4 mg/dL (0.2-1.3); BLOOD UREA NITROGEN 18 mg/dL (7-17); CALCIUM 8.1 mg/dl (8.6-10.4); CARBON DIOXIDE 30 mmol/L (22-30); CHLORIDE 101 mmol/L (98-107); GFR AFRICAN-AMERICAN > 60; GLUCOSE,RANDOM 185 mg/dL (65-105); MAGNESIUM 1.2 mg/dL (1.6-2.3); PHOSPHOROUS 2.8 mg/dL (2.5-4.5); POTASSIUM 4.6 mmol/L (3.6-5.2); SODIUM 130 mmol/L (132-148); TOTAL PROTEIN 7.2 g/dL (6.3-8.3)
--- NOTE | 2017-06-20 18:29 | CP.PCM.HP ---
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 C/O - Abdominal Pain for 5-6 days. INsidious in onset, progressive, occurs in and around the ileostomy site, moderate in severity, about 5/10 in intensity, near continuous, occurs throughout the day, only partly releived by pain medications. C/O - Leakage from ileostomy site for 5-6 days. No C/O - abdominal distention, willian, hemetmesis, diarrhoea from ileostomy site or anus, bleeding from rectum, fever, vomitting. Present on Admission - Present on Admission Any Indicators Present on Admission: No Past Patient History - Past Medical History & Family History Past Medical History?: Yes - Past Social History Smoking Status: Never Smoked - CARDIAC Hx Hypertension: Yes - PULMONARY Hx Respiratory Disorders: No - NEUROLOGICAL Hx Neurological Disorder: No - HEENT Hx HEENT Problems: No - RENAL Hx Chronic Kidney Disease: No - ENDOCRINE/METABOLIC Hx Hyperthyroidism: Yes - HEMATOLOGICAL/ONCOLOGICAL Hx Blood Disorders: No - INTEGUMENTARY Hx Dermatological Problems: No - MUSCULOSKELETAL/RHEUMATOLOGICAL Hx Arthritis: Yes (back) - GASTROINTESTINAL Hx Gastrointestinal Disorders: Yes Hx Colitis: Yes Hx Gastroesophageal Reflux: Yes Other/Comment: Gastroenteritis - GENITOURINARY/GYNECOLOGICAL Hx Genitourinary Disorders: Yes Hx Urinary Tract Infection: Yes Other/Comment: Hydroureter - PSYCHIATRIC Hx Substance Use: No - SURGICAL HISTORY Hx Surgeries: Yes Other/Comment: Nephrostomy insertion - ANESTHESIA Hx Anesthesia: Yes Hx Anesthesia Reactions: No Meds Allergies/Adverse Reactions: Allergies Allergy/AdvReac Type Severity Reaction Status Date / Time No Known Allergies Allergy Verified 06/02/17 21:17 Physical Exam - Constitutional Appears: Well - Head Exam Head Exam: ATRAUMATIC, NORMAL INSPECTION, NORMOCEPHALIC - Eye Exam Eye Exam: EOMI, Normal appearance, PERRL Pupil Exam: NORMAL ACCOMODATION, PERRL - ENT Exam ENT Exam: Mucous Membranes Moist, Normal Exam - Neck Exam Neck exam: Positive for: Normal Inspection - Respiratory Exam Respiratory Exam: Decreased Breath Sounds - Cardiovascular Exam Cardiovascular Exam: REGULAR RHYTHM, +S1, +S2 - GI/Abdominal Exam GI & Abdominal Exam: Diminished Bowel Sounds, Soft - Rectal Exam Rectal Exam: Deferred Results - Vital Signs Recent Vital Signs: Last Vital Signs Temp 97.7 F 06/20/17 17:43 Pulse 114 H 06/20/17 17:43 Resp 20 06/20/17 17:43 BP 91/59 L 06/20/17 17:43 Pulse Ox 98 06/20/17 17:43 - Labs Result Diagrams: 07/05/17 06:08 07/05/17 06:08 Labs: Laboratory Results - last 24 hr 06/20/17 06/20/17 06/20/17 14:44 14:44 14:44 WBC 10.1 RBC 3.65 L Hgb 10.3 L Hct 31.4 L MCV 85.9 MCH 28.1 MCHC 32.7 L RDW 13.8 Plt Count 212 D MPV 8.1 Neut % (Auto) 70.5 Lymph % (Auto) 22.3 [place] % (Auto) 5.0 Eos % (Auto) 1.2 Baso % (Auto) 1.0 Neut # 7.1 H Lymph # 2.2 [place] # 0.5 Eos # 0.1 Baso # 0.1 PT 11.3 INR 1.0 APTT 33 Sodium 130 L Potassium 4.6 Chloride 101 Carbon Dioxide 30 Anion Gap 4 L BUN 18 H Creatinine 0.7 Est GFR ( Amer) > 60 Est GFR (Non-Af Amer) > 60 Random Glucose 185 H Lactic Acid Calcium 8.1 L Phosphorus 2.8 Magnesium 1.2 L Total Bilirubin 0.4 AST 62 H D ALT 99 H D Alkaline Phosphatase 134 H D Total Protein 7.2 Albumin 2.4 L Globulin 4.8 H Albumin/Globulin Ratio 0.5 L 06/20/17 14:44 WBC RBC Hgb Hct MCV MCH MCHC RDW Plt Count MPV Neut % (Auto) Lymph % (Auto) [place] % (Auto) Eos % (Auto) Baso % (Auto) Neut # Lymph # [place] # Eos # Baso # PT INR APTT Sodium Potassium Chloride Carbon Dioxide Anion Gap BUN Creatinine Est GFR ( Amer) Est GFR (Non-Af Amer) Random Glucose Lactic Acid 1.6 Calcium Phosphorus Magnesium Total Bilirubin AST ALT Alkaline Phosphatase Total Protein Albumin Globulin Albumin/Globulin Ratio
[2017-06-20] MEDS ORDERED: Magnesium Hydroxide Susp 30 ml UD PO PRN (19:09)
[2017-06-20] MEDS: Enoxaparin 40 mg Syringe SC SCH (20:17)
--- NOTE | 2017-06-20 20:43 | CARD ---
APPROVED REPORT EKG Measurement Heart [id number] <Conclusion> Sinus tachycardia Otherwise normal ECG
[2017-06-20] MEDS: Oxycodone/Acetaminophen 5/325 mg Tab PO PRN (21:05)
[2017-06-20] MEDS: Meropenem 1 GM in Sodium Chloride 0.9% 100 ML IVPB SCH (21:54)
[2017-06-20] MEDS ORDERED: Lidocaine 5% Oint(35 gm) TOP ONE (22:11)
[2017-06-20] MEDS ORDERED: Magnesium Sulfate 1 gm in D5W 1 GM/100 ML BAG IVPB ONE (22:21)
--- NOTE | 2017-06-20 22:27 | CP.PCM.CON ---
<Jens Recio Sean - Last Filed: 06/20/17 23:39> History of Present Illness - History of Present Illness History of Present Illness: General Surgery: Dr Cabral pt is 61F well known to surgical service. Most recently discharged to [place] on 06/15. Pt was being seen for "leaking" ostomy and subsequent skin irritation. Pt was discharged with instructions as follows "apply 5% lidocaine cream, followed by marathon cream to protect the skin, then allow to try. Then apply flexible wafer for skin tight seal". Pt was also sent with contact information for surgical team in case there were any questions or difficulties. Pt presents today with same problem. Ostomy continues to leak causing skin irritation and great deal of pain. Skin breakdown extending along crevice of abdominal fold to the left, as well as significantly to right flank. Pt was sent back to ED by [place]. Surgical team has not been contacted since discharge regarding care or instructions. It does not appear pt was having marathon cream applied since discharge. Review of Systems - Review of Systems Systems not reviewed;Unavailable: Language Barrier Past Patient History - Past Medical History & Family History Past Medical History?: Yes - Past Social History Smoking Status: Never Smoked - CARDIAC Hx Hypertension: Yes - PULMONARY Hx Respiratory Disorders: No - NEUROLOGICAL Hx Neurological Disorder: No - HEENT Hx HEENT Problems: No - RENAL Hx Chronic Kidney Disease: No - ENDOCRINE/METABOLIC Hx Hyperthyroidism: Yes - HEMATOLOGICAL/ONCOLOGICAL Hx Blood Disorders: No - INTEGUMENTARY Hx Dermatological Problems: No - MUSCULOSKELETAL/RHEUMATOLOGICAL Hx Arthritis: Yes (back) Hx Falls: No - GASTROINTESTINAL Hx Gastrointestinal Disorders: Yes Hx Colitis: Yes Hx Gastroesophageal Reflux: Yes Other/Comment: Gastroenteritis - GENITOURINARY/GYNECOLOGICAL Hx Genitourinary Disorders: Yes Hx Urinary Tract Infection: Yes Other/Comment: Hydroureter - PSYCHIATRIC Hx Substance Use: No - SURGICAL HISTORY Hx Surgeries: Yes Other/Comment: Nephrostomy insertion - ANESTHESIA Hx Anesthesia: Yes Hx Anesthesia Reactions: No Meds Allergies/Adverse Reactions: Allergies Allergy/AdvReac Type Severity Reaction Status Date / Time No Known Allergies Allergy Verified 06/02/17 21:17 - Medications Medications: Current Medications Acetaminophen (Tylenol 325mg Tab) 650 mg PO Q4 PRN PRN Reason: Pain, Mild (1-3) Alprazolam (Xanax) 0.25 mg PO TID PRN PRN Reason: Anxiety Stop: 06/27/17 19:10 Ascorbic Acid (Vitamin C 500 Mg Tab) 500 mg PO DAILY [facility] Dronabinol (Marinol) 5 mg PO BID [facility] Enoxaparin Sodium (Lovenox) 40 mg SC DAILY [facility] Last Admin: 06/20/17 20:17 Dose: 40 mg Home Med (Fentanyl [Fentanyl]) 1 each TD Q72 [facility] Home Med (Insulin Lispro Protamin/Lispro [Humalog Mix 50-50 Kwikpen]) 10 unit SQ BID [facility] Sodium Chloride (Sodium Chloride 0.9%) 1,000 mls @ 150 mls/hr IV .Q6H40M [facility] Last Admin: 06/20/17 14:53 Dose: 150 mls/hr Meropenem 1 gm/ Sodium (Chloride) 100 mls @ 100 mls/hr IVPB Q8 [facility] Last Admin: 06/20/17 21:54 Dose: 100 mls/hr Tigecycline 50 mg/ Sodium (Chloride) 100 mls @ 100 mls/hr IVPB Q12H [facility] Last Admin: 06/20/17 20:19 Dose: 100 mls/hr Magnesium Sulfate/Dextrose (Magnesium Sulfate 1 Gm/100 Ml D5w) 1 gm in 100 mls @ 200 mls/hr IVPB ONCE ONE Stop: 06/20/17 22:50 Insulin Aspart (Novolog) 0 unit SC ACHS [facility] PRN Reason: Protocol Lactobacillus Acidophilus (Bacid Acidophilus) 1 cap PO DAILY [facility] Magnesium Hydroxide (Milk Of Magnesia) 30 ml PO DAILY PRN PRN Reason: Constipation Mupirocin (Bactroban Ointment) 0 gm TOP DAILY [facility] Oxycodone/Acetaminophen (Percocet 5/325 Mg Tab) 1 tab PO Q6 PRN PRN Reason: Pain, moderate (4-7) Stop: 06/23/17 19:10 Last Admin: 06/20/17 21:05 Dose: 1 tab Physical Exam - Constitutional Appears: Older Than Stated Age, Cachectic, Chronically Ill - ENT Exam ENT Exam: Mucous Membranes Dry - Respiratory Exam Respiratory Exam: absent: Accessory Muscle Use, Respiratory Distress - Cardiovascular Exam Cardiovascular Exam: Tachycardia, REGULAR RHYTHM - GI/Abdominal Exam GI & Abdominal Exam: Soft, Tenderness (diffuse along areas of skin irritation). absent: Distended, Firm, Guarding, Hernia, Rigid Additional comments: large extensive area of skin irritation, 2/2 ileostomy output and leaking ostomy - Extremities Exam Extremities exam: Negative for: pedal edema - Neurological Exam Neurological exam: Alert - Psychiatric Exam Psychiatric exam: Anxious - Skin Skin Exam: Normal Color Results - Vital Signs Recent Vital Signs: Last Vital Signs Temp 97.7 F 06/20/17 17:43 Pulse 114 H 06/20/17 17:43 Resp 20 06/20/17 17:43 BP 91/59 L 06/20/17 17:43 Pulse Ox 98 06/20/17 17:43 - Labs Result Diagrams: 06/20/17 14:44 06/20/17 14:44 Labs: Laboratory Results - last 24 hr 06/20/17 06/20/17 06/20/17 14:44 14:44 14:44 WBC 10.1 RBC 3.65 L Hgb 10.3 L Hct 31.4 L MCV 85.9 MCH 28.1 MCHC 32.7 L RDW 13.8 Plt Count 212 D MPV 8.1 Neut % (Auto) 70.5 Lymph % (Auto) 22.3 Crisp % (Auto) 5.0 Eos % (Auto) 1.2 Baso % (Auto) 1.0 Neut # 7.1 H Lymph # 2.2 Crisp # 0.5 Eos # 0.1 Baso # 0.1 PT 11.3 INR 1.0 APTT 33 Sodium 130 L Potassium 4.6 Chloride 101 Carbon Dioxide 30 Anion Gap 4 L BUN 18 H Creatinine 0.7 Est GFR ( Amer) > 60 Est GFR (Non-Af Amer) > 60 POC Glucose (mg/dL) Random Glucose 185 H Lactic Acid Calcium 8.1 L Phosphorus 2.8 Magnesium 1.2 L Total Bilirubin 0.4 AST 62 H D ALT 99 H D Alkaline Phosphatase 134 H D Total Protein 7.2 Albumin 2.4 L Globulin 4.8 H Albumin/Globulin Ratio 0.5 L 06/20/17 06/20/17 14:44 21:12 WBC RBC Hgb Hct MCV MCH MCHC RDW Plt Count MPV Neut % (Auto) Lymph % (Auto) Crisp % (Auto) Eos % (Auto) Baso % (Auto) Neut # Lymph # Crisp # Eos # Baso # PT INR APTT Sodium Potassium Chloride Carbon Dioxide Anion Gap BUN Creatinine Est GFR ( Amer) Est GFR (Non-Af Amer) POC Glucose (mg/dL) 190 H Random Glucose Lactic Acid 1.6 Calcium Phosphorus Magnesium Total Bilirubin AST ALT Alkaline Phosphatase Total Protein Albumin Globulin Albumin/Globulin Ratio Assessment & Plan - Assessment and Plan (Free Text) Assessment: 61F with complications 2/2 poor ostomy care w/ resultant skin breakdown Plan: 2% lidocaine cream applied (hospital out of 5%) skin-protectant/barrier cream applied to all areas of skin irritation (marathon cream also unavailable) new durahesive wafer applied, tight seal, reinforced with tegaderms - this should hold throughout evening -durahesive is designed for high output liquid content ostomies - recommend this brand moving forward pt skin irritation does not appear to be cellulitis, this appears like irritation 2/2 ileostomy output Hypomagnesemia addressed via 1 gm IV will d/w Dr Misha Recio, PGY3 <Sumeet Cabral - Last Filed: 06/22/17 17:55> Meds - Medications Medications: Current Medications Acetaminophen (Tylenol 325mg Tab) 650 mg PO Q4 PRN PRN Reason: Pain, Mild (1-3) Last Admin: 06/22/17 17:44 Dose: 650 mg Alprazolam (Xanax) 0.25 mg PO TID PRN PRN Reason: Anxiety Stop: 06/27/17 19:10 Ascorbic Acid (Vitamin C 500 Mg Tab) 500 mg PO DAILY [facility] Last Admin: 06/22/17 09:44 Dose: 500 mg Dronabinol (Marinol) 5 mg PO BID [facility] Last Admin: 06/22/17 17:45 Dose: 5 mg Enoxaparin Sodium (Lovenox) 40 mg SC DAILY [facility] Last Admin: 06/22/17 09:41 Dose: 40 mg Meropenem 1 gm/ Sodium (Chloride) 100 mls @ 100 mls/hr IVPB Q8 [facility] Last Admin: 06/22/17 13:24 Dose: 100 mls/hr Tigecycline 50 mg/ Sodium (Chloride) 100 mls @ 100 mls/hr IVPB Q12H [facility] Last Admin: 06/22/17 08:06 Dose: 100 mls/hr Sodium Chloride (Sodium Chloride 0.9%) 1,000 mls @ 50 mls/hr IV .Q20H [facility] Last Admin: 06/22/17 05:45 Dose: 50 mls/hr Insulin Aspart (Novolog) 0 unit SC ACHS [facility] PRN Reason: Protocol Last Admin: 06/22/17 16:52 Dose: Not Given Insulin Aspart (Novolog Mix 70/30 (70/30 Units/Ml)) 10 units SC BID [facility] Last Admin: 06/22/17 11:00 Dose: Not Given Lactobacillus Acidophilus (Bacid Acidophilus) 1 cap PO DAILY [facility] Last Admin: 06/22/17 09:41 Dose: 1 cap Magnesium Hydroxide (Milk Of Magnesia) 30 ml PO DAILY PRN PRN Reason: Constipation Mupirocin (Bactroban Ointment) 0 gm TOP DAILY [facility] Last Admin: 06/22/17 09:41 Dose: 1 applic Results - Vital Signs Recent Vital Signs: Last Vital Signs Temp 98.4 F 06/22/17 17:28 Pulse 103 H 06/22/17 17:28 Resp 18 06/22/17 17:28 BP 102/63 06/22/17 17:28 Pulse Ox 100 06/22/17 16:00 - Labs Result Diagrams: 06/22/17 11:22 06/22/17 11:22 Labs: Laboratory Results - last 24 hr 06/21/17 06/21/17 06/22/17 12:04 21:12 05:59 WBC RBC Hgb Hct MCV MCH MCHC RDW Plt Count MPV Neut % (Auto) Lymph % (Auto) Crisp % (Auto) Eos % (Auto) Baso % (Auto) Neut # Lymph # Crisp # Eos # Baso # Sodium Potassium Chloride Carbon Dioxide Anion Gap BUN Creatinine Est GFR ( Amer) Est GFR (Non-Af Amer) POC Glucose (mg/dL) 129 H Random Glucose Calcium Phosphorus 2.1 L Magnesium 1.3 L Procalcitonin Urine Color Yellow Urine Clarity Turbid Urine pH 6.0 Ur Specific [place] 1.011 Urine Protein 1+ H Urine Glucose (UA) 1+ Urine Ketones Negative Urine Blood 2+ H Urine Nitrate Negative Urine Bilirubin Negative Urine Urobilinogen Normal Ur Leukocyte Esterase 3+ H Urine WBC (Auto) 1595 H Urine RBC (Auto) 95 H Urine WBC Clumps (Auto) Many H Urine Bacteria Occ H Urine Yeast (Budding) Many H Blood Type Antibody Screen 1206/22/17 06/22/17 07:25 07:29 11:17 WBC RBC Hgb Hct MCV MCH MCHC RDW Plt Count MPV Neut % (Auto) Lymph % (Auto) Crisp % (Auto) Eos % (Auto) Baso % (Auto) Neut # Lymph # Crisp # Eos # Baso # Sodium Potassium Chloride Carbon Dioxide Anion Gap BUN Creatinine Est GFR ( Amer) Est GFR (Non-Af Amer) POC Glucose (mg/dL) 121 H 188 H Random Glucose Calcium Phosphorus Magnesium Procalcitonin 0.23 Urine Color Urine Clarity Urine pH Ur Specific [place] Urine Protein Urine Glucose (UA) Urine Ketones Urine Blood Urine Nitrate Urine Bilirubin Urine Urobilinogen Ur Leukocyte Esterase Urine WBC (Auto) Urine RBC (Auto) Urine WBC Clumps (Auto) Urine Bacteria Urine Yeast (Budding) Blood Type Antibody Screen 06/22/17 06/22/17 06/22/17 11:22 11:22 13:33 WBC 6.9 RBC 2.68 L Hgb 7.6 L Hct 23.4 L MCV 87.2 MCH 28.4 MCHC 32.6 L RDW 13.8 Plt Count 209 MPV 8.5 Neut % (Auto) 65.4 Lymph % (Auto) 26.0 Crisp % (Auto) 6.3 Eos % (Auto) 1.9 Baso % (Auto) 0.4 Neut # 4.5 Lymph # 1.8 Crisp # 0.4 Eos # 0.1 Baso # 0.0 Sodium 134 Potassium 3.9 Chloride 107 Carbon Dioxide 24 Anion Gap 8 L BUN 19 H Creatinine 0.4 L Est GFR ( Amer) > 60 Est GFR (Non-Af Amer) > 60 POC Glucose (mg/dL) Random Glucose 171 H Calcium 7.1 L Phosphorus Magnesium Procalcitonin Urine Color Urine Clarity Urine pH Ur Specific [place] Urine Protein Urine Glucose (UA) Urine Ketones Urine Blood Urine Nitrate Urine Bilirubin Urine Urobilinogen Ur Leukocyte Esterase Urine WBC (Auto) Urine RBC (Auto) Urine WBC Clumps (Auto) Urine Bacteria Urine Yeast (Budding) Blood Type B POSITIVE Antibody Screen Negative 06/22/17 16:25 WBC RBC Hgb Hct MCV MCH MCHC RDW Plt Count MPV Neut % (Auto) Lymph % (Auto) Crisp % (Auto) Eos % (Auto) Baso % (Auto) Neut # Lymph # Crisp # Eos # Baso # Sodium Potassium Chloride Carbon Dioxide Anion Gap BUN Creatinine Est GFR ( Amer) Est GFR (Non-Af Amer) POC Glucose (mg/dL) 168 H Random Glucose Calcium Phosphorus Magnesium Procalcitonin Urine Color Urine Clarity Urine pH Ur Specific [place] Urine Protein Urine Glucose (UA) Urine Ketones Urine Blood Urine Nitrate Urine Bilirubin Urine Urobilinogen Ur Leukocyte Esterase Urine WBC (Auto) Urine RBC (Auto) Urine WBC Clumps (Auto) Urine Bacteria Urine Yeast (Budding) Blood Type Antibody Screen Attending/Attestation - Attestation I have personally seen and examined this patient.: Yes I have fully participated in the care of the patient.: Yes I have reviewed all pertinent clinical information: Yes Notes (Text): Pt was seen and examined at bedside Agree with above note and assessment Pt with Ileostomy and severe skin excoriation RLQ tenderness Labs and radiology reviewed Ass: Ileostomy with skin ulceration IV antibiotics Ileostomy care PO percocet Plan d.w pt in detail Risk and benefit explained in detail.
[2017-06-20] MEDS ORDERED: Lidocaine 2% Jelly (Uro-Jet) TOP ONE (23:00)
[2017-06-20] MEDS: Lidocaine 2% Jelly (Uro-Jet) TOP ONE ×2 (23:32→23:33)
[2017-06-20] MEDS: (Novolog) Insulin Aspart, Recombinant 100 u/ml 10 ml vial SC SCH (23:36)
[2017-06-21] MEDS: Sodium Chloride 0.9% 1,000 ML IV SCH (03:10)
[2017-06-21] MEDS: Oxycodone/Acetaminophen 5/325 mg Tab PO PRN (03:41)
[2017-06-21] MEDS: Meropenem 1 GM in Sodium Chloride 0.9% 100 ML IVPB SCH ×3 (06:02→21:31)
[2017-06-21] MEDS: (Novolog) Insulin Aspart, Recombinant 100 u/ml 10 ml vial SC SCH ×4 (07:37→21:31)
[2017-06-21] MEDS ORDERED: Sodium Chloride 0.9% 500 ML IV ONE (08:04)
--- NOTE | 2017-06-21 08:05 | PCM.RRT ---
COMMUNICATIONS EQUIPMENT OPERATOR Nurses Assessment - Situation Date: 06/21/17 Time COMMUNICATIONS EQUIPMENT OPERATOR was called: 08:05 COMMUNICATIONS EQUIPMENT OPERATOR Responder Arrival Time:: 08:05 - IV IV Inserted during COMMUNICATIONS EQUIPMENT OPERATOR?: No IV Fluids Initiated During COMMUNICATIONS EQUIPMENT OPERATOR?: 500 cc bolus /30 min - Ventilator Settings Ventilator Respiratory Rate Settin Ventilator Tidal Volume Settin - Vital Signs Vital Signs: 69/ 42, 78/42, 104/56 (once placed in trendeleburg), 115/ 72 (after fluid bolus and still in trendelenburg) - Time COMMUNICATIONS EQUIPMENT OPERATOR Ended Time COMMUNICATIONS EQUIPMENT OPERATOR Ended: 08:45 - Vital Signs at end of COMMUNICATIONS EQUIPMENT OPERATOR Vital Signs at end of COMMUNICATIONS EQUIPMENT OPERATOR: 115/72 - Recommendations 5) COMMUNICATIONS EQUIPMENT OPERATOR Level of Care Recommendations: Remain in current setting Notifications: Attending Physician Plan - Assessment of Findings&Treatment Plan COMMUNICATIONS EQUIPMENT OPERATOR called for asymptomatic hypotension History of hypotension. Patient admitted for complications 2/2 leaking ostomy with a nephrostomy tube in place. Patient is currently on meropenem and tigecycline and maintenance fluids @ 150cc /hr. Patient was placed in Trendelenburg and was given a NS 500cc bolus. Her ostomy bag was changed and she was thoroughly cleaned - since feces were leaking on her already excoriated skin. Yasir the Wound Care Nurse and surgery were made aware. Shortly after the COMMUNICATIONS EQUIPMENT OPERATOR- Yasir the Wound Care nurse, applied [place] around the ostomy site and changed her osteomy bag. Meenu Bee DO, PGY-1
[2017-06-21] MEDS: (Novolog Mix 70/30) Insulin Aspart/Insulin Aspar 100 units/ml SC SCH ×2 (10:00→17:51)
[2017-06-21] MEDS: Lactobacillus Acidophilus 500 MU Cap PO SCH (10:59)
[2017-06-21] MEDS: Enoxaparin 40 mg Syringe SC SCH (11:00)
[2017-06-21 12:13] LABS: BASO % 0.5 % (0.0-2.0); EOS # 0.2 K/uL (0.0-0.7); EOS % 2.2 % (0.0-4.0); HEMATOCRIT 24.1 % (34.0-47.0); LYMPH # 1.9 K/uL (1.0-4.3); LYMPH % 22.4 % (20.0-40.0); MEAN CELL VOLUME 86.5 fL (81.0-99.0); MEAN CORPUSCULAR HEMOGLOBIN 28.1 pg (27.0-31.0); MEAN CORPUSCULAR HGB CONC 32.5 g/dL (33.0-37.0); MEAN PLATELET VOLUME 8.1 fL (7.2-11.7); MONO # 0.5 K/uL (0.0-0.8); MONO % 5.2 % (0.0-10.0); RED CELL DISTRIBUTION WIDTH 13.6 % (11.5-14.5); WHITE BLOOD COUNT 8.7 K/uL (4.8-10.8)
[2017-06-21 12:24] LABS: ALB/GLOB RATIO 0.6 (1.0-2.1); ALKALINE PHOSPHATASE 94 U/L (38-126); ALT/SGPT 65 U/L (9-52); AST/SGOT 35 U/L (14-36); BILIRUBIN,TOTAL 0.3 mg/dL (0.2-1.3); BLOOD UREA NITROGEN 13 mg/dL (7-17); CALCIUM 6.8 mg/dl (8.6-10.4); CARBON DIOXIDE 23 mmol/L (22-30); CHLORIDE 108 mmol/L (98-107); GFR AFRICAN-AMERICAN > 60; GLUCOSE,RANDOM 156 mg/dL (65-105); POTASSIUM 3.8 mmol/L (3.6-5.2); SODIUM 133 mmol/L (132-148); TOTAL PROTEIN 4.6 g/dL (6.3-8.3)
--- NOTE | 2017-06-21 16:46 | CP.PCM.PN ---
<Beto Davis - Last Filed: 06/21/17 16:44> Subjective - Date & Time of Evaluation Date of Evaluation: 06/21/17 Time of Evaluation: 09:40 - Subjective Subjective: Surgery Progress note. Dr. Cabral Pt seen and examined at bedside. Had GOLF TECHNICIAN called this AM due to hypotension. Patient states that she recently had some ostomy help by wound care staff. Currently comfortable. No complaints. Does report that she is hungry Objective - Vital Signs/Intake and Output Vital Signs (last 24 hours): Temp Pulse Resp BP Pulse Ox 98.8 F 113 H 20 104/64 95 06/21/17 16:00 06/21/17 16:00 06/21/17 16:00 06/21/17 16:00 06/21/17 16:00 Intake and Output: 06/21/17 06/21/17 06:59 18:59 Intake Total 2480 2580 Output Total 1150 850 Balance 1330 1730 - Medications Medications: Current Medications Acetaminophen (Tylenol 325mg Tab) 650 mg PO Q4 PRN PRN Reason: Pain, Mild (1-3) Alprazolam (Xanax) 0.25 mg PO TID PRN PRN Reason: Anxiety Stop: 06/27/17 19:10 Ascorbic Acid (Vitamin C 500 Mg Tab) 500 mg PO DAILY [facility] Last Admin: 06/21/17 10:59 Dose: 500 mg Dronabinol (Marinol) 5 mg PO BID [facility] Enoxaparin Sodium (Lovenox) 40 mg SC DAILY [facility] Last Admin: 06/21/17 11:00 Dose: 40 mg Fentanyl (Duragesic) 1 patch TD Q72H [facility] Meropenem 1 gm/ Sodium (Chloride) 100 mls @ 100 mls/hr IVPB Q8 [facility] Last Admin: 06/21/17 14:15 Dose: 100 mls/hr Tigecycline 50 mg/ Sodium (Chloride) 100 mls @ 100 mls/hr IVPB Q12H [facility] Last Admin: 06/21/17 09:04 Dose: 100 mls/hr Sodium Chloride (Sodium Chloride 0.9%) 1,000 mls @ 50 mls/hr IV .Q20H [facility] Insulin Aspart (Novolog) 0 unit SC ACHS [facility] PRN Reason: Protocol Last Admin: 06/21/17 12:00 Dose: 2 unit Insulin Aspart (Novolog Mix 70/30 (70/30 Units/Ml)) 10 units SC BID [facility] Lactobacillus Acidophilus (Bacid Acidophilus) 1 cap PO DAILY [facility] Last Admin: 06/21/17 10:59 Dose: 1 cap Magnesium Hydroxide (Milk Of Magnesia) 30 ml PO DAILY PRN PRN Reason: Constipation Mupirocin (Bactroban Ointment) 0 gm TOP DAILY [facility] Last Admin: 06/21/17 11:08 Dose: 1 applic Oxycodone/Acetaminophen (Percocet 5/325 Mg Tab) 1 tab PO Q6 PRN PRN Reason: Pain, moderate (4-7) Stop: 06/23/17 19:10 Last Admin: 06/21/17 03:41 Dose: 1 tab - Labs Labs: 06/21/17 12:04 06/21/17 12:04 PT 11.3 SECONDS (9.7-12.2) 06/20/17 14:44 INR 1.0 06/20/17 14:44 APTT 33 SECONDS (21-34) 06/20/17 14:44 - Constitutional Appears: Non-toxic, No Acute Distress, Cachectic - Head Exam Head Exam: ATRAUMATIC, NORMAL INSPECTION, NORMOCEPHALIC - Eye Exam Eye Exam: EOMI, Normal appearance - ENT Exam ENT Exam: Mucous Membranes Moist - Respiratory Exam Respiratory Exam: NORMAL BREATHING PATTERN. absent: Accessory Muscle Use, Respiratory Distress - GI/Abdominal Exam Additional comments: soft, non distended. Tender around ostomy site. ileostomy drain in place. no leaks. - Extremities Exam Extremities Exam: absent: Calf Tenderness - Neurological Exam Neurological Exam: Alert Additional comments: Sleeping but easily arousable Assessment and Plan - Assessment and Plan (Free Text) Assessment: 61yo F with hx of Ex lap with small bowel resection, bladder repair, Appendectomy, Ileostomy, and bilateral nephrostomy tubes. Patient returned from long-term due to ileostomy leaks and skin excoriation - Continue to apply [place] skin protectant around ostomy appliance as per wound care nursing - Topical lidocaine 5% cream around ileostomy site for local anesthesia as needed - Continue Abx as per ID Further recs as per Dr. Misha Davis PGY1 surgery pager: [phone] <Sumeet Cabral B - Last Filed: 06/22/17 17:59> Objective - Vital Signs/Intake and Output Vital Signs (last 24 hours): Temp Pulse Resp BP Pulse Ox 98.4 F 103 H 18 102/63 100 06/22/17 17:28 06/22/17 17:28 06/22/17 17:28 06/22/17 17:28 06/22/17 16:00 Intake and Output: 06/22/17 06/22/17 06:59 18:59 Intake Total 640 1850 Output Total 1920 1430 Balance -1280 420 - Medications Medications: Current Medications Acetaminophen (Tylenol 325mg Tab) 650 mg PO Q4 PRN PRN Reason: Pain, Mild (1-3) Last Admin: 06/22/17 17:44 Dose: 650 mg Alprazolam (Xanax) 0.25 mg PO TID PRN PRN Reason: Anxiety Stop: 06/27/17 19:10 Ascorbic Acid (Vitamin C 500 Mg Tab) 500 mg PO DAILY [facility] Last Admin: 06/22/17 09:44 Dose: 500 mg Dronabinol (Marinol) 5 mg PO BID [facility] Last Admin: 06/22/17 17:45 Dose: 5 mg Enoxaparin Sodium (Lovenox) 40 mg SC DAILY [facility] Last Admin: 06/22/17 09:41 Dose: 40 mg Meropenem 1 gm/ Sodium (Chloride) 100 mls @ 100 mls/hr IVPB Q8 [facility] Last Admin: 06/22/17 13:24 Dose: 100 mls/hr Tigecycline 50 mg/ Sodium (Chloride) 100 mls @ 100 mls/hr IVPB Q12H [facility] Last Admin: 06/22/17 08:06 Dose: 100 mls/hr Sodium Chloride (Sodium Chloride 0.9%) 1,000 mls @ 50 mls/hr IV .Q20H [facility] Last Admin: 06/22/17 05:45 Dose: 50 mls/hr Insulin Aspart (Novolog) 0 unit SC ACHS [facility] PRN Reason: Protocol Last Admin: 06/22/17 16:52 Dose: Not Given Insulin Aspart (Novolog Mix 70/30 (70/30 Units/Ml)) 10 units SC BID [facility] Last Admin: 06/22/17 11:00 Dose: Not Given Lactobacillus Acidophilus (Bacid Acidophilus) 1 cap PO DAILY [facility] Last Admin: 06/22/17 09:41 Dose: 1 cap Magnesium Hydroxide (Milk Of Magnesia) 30 ml PO DAILY PRN PRN Reason: Constipation Mupirocin (Bactroban Ointment) 0 gm TOP DAILY [facility] Last Admin: 06/22/17 09:41 Dose: 1 applic - Labs Labs: 06/22/17 11:22 06/22/17 11:22 PT 11.3 SECONDS (9.7-12.2) 06/20/17 14:44 INR 1.0 06/20/17 14:44 APTT 33 SECONDS (21-34) 06/20/17 14:44 Attending/Attestation - Attestation I have personally seen and examined this patient.: Yes I have fully participated in the care of the patient.: Yes I have reviewed all pertinent clinical information, including history, physical exam and plan: Yes Notes (Text): Pt was seen and examined at bedside Agree with above note and assessment Pt with severe skin ulceration due to ileostomy Wound care Ileostomy care C/w current mx Plan d.w pt in detail
--- NOTE | 2017-06-21 19:30 | CP.PCM.PN ---
Subjective - Date & Time of Evaluation Date of Evaluation: 06/21/17 Time of Evaluation: 08:00 - Subjective Subjective: clinically same Objective - Vital Signs/Intake and Output Vital Signs (last 24 hours): Temp Pulse Resp BP Pulse Ox 98.8 F 113 H 20 104/64 95 06/21/17 16:00 06/21/17 16:00 06/21/17 16:00 06/21/17 16:00 06/21/17 16:00 Intake and Output: 06/21/17 06/22/17 18:59 06:59 Intake Total 2580 Output Total 850 Balance 1730 - Medications Medications: Current Medications Acetaminophen (Tylenol 325mg Tab) 650 mg PO Q4 PRN PRN Reason: Pain, Mild (1-3) Alprazolam (Xanax) 0.25 mg PO TID PRN PRN Reason: Anxiety Stop: 06/27/17 19:10 Ascorbic Acid (Vitamin C 500 Mg Tab) 500 mg PO DAILY [facility] Last Admin: 06/21/17 10:59 Dose: 500 mg Dronabinol (Marinol) 5 mg PO BID [facility] Last Admin: 06/21/17 17:50 Dose: 5 mg Enoxaparin Sodium (Lovenox) 40 mg SC DAILY [facility] Last Admin: 06/21/17 11:00 Dose: 40 mg Fentanyl (Duragesic) 1 patch TD Q72H [facility] Last Admin: 06/21/17 16:35 Dose: 1 patch Meropenem 1 gm/ Sodium (Chloride) 100 mls @ 100 mls/hr IVPB Q8 [facility] Last Admin: 06/21/17 14:15 Dose: 100 mls/hr Tigecycline 50 mg/ Sodium (Chloride) 100 mls @ 100 mls/hr IVPB Q12H [facility] Last Admin: 06/21/17 09:04 Dose: 100 mls/hr Sodium Chloride (Sodium Chloride 0.9%) 1,000 mls @ 50 mls/hr IV .Q20H [facility] Insulin Aspart (Novolog) 0 unit SC ACHS [facility] PRN Reason: Protocol Last Admin: 06/21/17 16:30 Dose: Not Given Insulin Aspart (Novolog Mix 70/30 (70/30 Units/Ml)) 10 units SC BID [facility] Last Admin: 06/21/17 17:51 Dose: Not Given Lactobacillus Acidophilus (Bacid Acidophilus) 1 cap PO DAILY [facility] Last Admin: 06/21/17 10:59 Dose: 1 cap Magnesium Hydroxide (Milk Of Magnesia) 30 ml PO DAILY PRN PRN Reason: Constipation Mupirocin (Bactroban Ointment) 0 gm TOP DAILY [facility] Last Admin: 06/21/17 11:08 Dose: 1 applic Oxycodone/Acetaminophen (Percocet 5/325 Mg Tab) 1 tab PO Q6 PRN PRN Reason: Pain, moderate (4-7) Stop: 06/23/17 19:10 Last Admin: 06/21/17 03:41 Dose: 1 tab - Labs Labs: 06/21/17 12:04 06/21/17 12:04 PT 11.3 SECONDS (9.7-12.2) 06/20/17 14:44 INR 1.0 06/20/17 14:44 APTT 33 SECONDS (21-34) 06/20/17 14:44 - Constitutional Appears: Well - Head Exam Head Exam: ATRAUMATIC, NORMAL INSPECTION, NORMOCEPHALIC - Eye Exam Eye Exam: EOMI, Normal appearance, PERRL Pupil Exam: NORMAL ACCOMODATION, PERRL - ENT Exam ENT Exam: Mucous Membranes Moist, Normal Exam - Neck Exam Neck Exam: Full ROM, Normal Inspection. absent: Lymphadenopathy - Respiratory Exam Respiratory Exam: Decreased Breath Sounds - Cardiovascular Exam Cardiovascular Exam: REGULAR RHYTHM, +S1, +S2 - GI/Abdominal Exam GI & Abdominal Exam: Soft, Diminished Bowel Sounds - Rectal Exam Rectal Exam: Deferred Assessment and Plan (1) Abdominal wall pain Status: Acute (2) Ileostomy care Status: Acute (3) Colonic fistula Status: Acute (4) Dehydration Status: Acute (5) Displacement of Mckeon catheter Status: Acute (6) Ileostomy bag changed Status: Acute (7) Urinary tract infection Status: Acute - Assessment and Plan (Free Text) Plan: Patient examiend. Patient better, no fever. EKG normal. CXR normal. Laboratory investigations near normal. Total counts 7.8. Continue meropenem & Tigecycline. Continue insulin, dronabinol. Pain management. Supportive care.
[2017-06-21 22:56] LABS: MAGNESIUM 1.3 mg/dL (1.6-2.3); PHOSPHOROUS 2.1 mg/dL (2.5-4.5)
[2017-06-22] MEDS: Sodium Chloride 0.9% 1,000 ML IV SCH (05:45)
[2017-06-22] MEDS: Meropenem 1 GM in Sodium Chloride 0.9% 100 ML IVPB SCH ×3 (05:45→22:17)
[2017-06-22 06:10] LABS: RBC URINE 95 /hpf (0-3); URINE BACTERIA OCC (<OCC); URINE BILIRUBIN NEGATIVE (NEGATIVE); URINE BLOOD 2+ (NEGATIVE); URINE COLOR Yellow (YELLOW); URINE GLUCOSE (UA) 1+ mg/dL (Normal); URINE KETONE NEGATIVE (NEGATIVE); URINE LEUKOCYTE ESTERASE 3+ Leu/uL (Negative); URINE PROTEIN 1+ mg/dL (NEGATIVE); URINE UROBILINOGEN NORMAL mg/dL (0.2-1.0); WBC CLUMPS MANY /hpf
[2017-06-22] MEDS: (Novolog) Insulin Aspart, Recombinant 100 u/ml 10 ml vial SC SCH ×3 (07:30→16:52)
--- NOTE | 2017-06-22 08:08 | CP.PCM.PN ---
<SusanBeto - Last Filed: 06/22/17 15:05> Subjective - Date & Time of Evaluation Date of Evaluation: 06/22/17 Time of Evaluation: 08:05 - Subjective Subjective: Surgery Progress note. Dr. Cabral Pt seen and examined at bedside. No acute events overnight. Patient very happy and jovial this morning. States that she is hungry and enjoying the home cooked meal she is currently eating. She states that the ostomy appliance was changed twice yesterday and has been doing very well. She states that her periostomy skin pain is better today. No F/C. No new complaints. Objective - Vital Signs/Intake and Output Vital Signs (last 24 hours): Temp Pulse Resp BP Pulse Ox 98.6 F 99 H 20 97/66 L 96 06/22/17 08:00 06/22/17 08:00 06/22/17 08:00 06/22/17 08:00 06/22/17 08:00 Intake and Output: 06/22/17 06/22/17 06:59 18:59 Intake Total 640 850 Output Total 1920 730 Balance -1280 120 - Medications Medications: Current Medications Acetaminophen (Tylenol 325mg Tab) 650 mg PO Q4 PRN PRN Reason: Pain, Mild (1-3) Alprazolam (Xanax) 0.25 mg PO TID PRN PRN Reason: Anxiety Stop: 06/27/17 19:10 Ascorbic Acid (Vitamin C 500 Mg Tab) 500 mg PO DAILY [facility] Last Admin: 06/21/17 10:59 Dose: 500 mg Dronabinol (Marinol) 5 mg PO BID [facility] Last Admin: 06/21/17 17:50 Dose: 5 mg Enoxaparin Sodium (Lovenox) 40 mg SC DAILY [facility] Last Admin: 06/21/17 11:00 Dose: 40 mg Fentanyl (Duragesic) 1 patch TD Q72H [facility] Last Admin: 06/21/17 16:35 Dose: 1 patch Meropenem 1 gm/ Sodium (Chloride) 100 mls @ 100 mls/hr IVPB Q8 [facility] Last Admin: 06/22/17 05:45 Dose: 100 mls/hr Tigecycline 50 mg/ Sodium (Chloride) 100 mls @ 100 mls/hr IVPB Q12H [facility] Last Admin: 06/21/17 20:00 Dose: 100 mls/hr Sodium Chloride (Sodium Chloride 0.9%) 1,000 mls @ 50 mls/hr IV .Q20H [facility] Last Admin: 06/22/17 05:45 Dose: 50 mls/hr Insulin Aspart (Novolog) 0 unit SC ACHS [facility] PRN Reason: Protocol Last Admin: 06/21/17 21:31 Dose: Not Given Insulin Aspart (Novolog Mix 70/30 (70/30 Units/Ml)) 10 units SC BID [facility] Last Admin: 06/21/17 17:51 Dose: Not Given Lactobacillus Acidophilus (Bacid Acidophilus) 1 cap PO DAILY [facility] Last Admin: 06/21/17 10:59 Dose: 1 cap Magnesium Hydroxide (Milk Of Magnesia) 30 ml PO DAILY PRN PRN Reason: Constipation Mupirocin (Bactroban Ointment) 0 gm TOP DAILY [facility] Last Admin: 06/21/17 11:08 Dose: 1 applic Oxycodone/Acetaminophen (Percocet 5/325 Mg Tab) 1 tab PO Q6 PRN PRN Reason: Pain, moderate (4-7) Stop: 06/23/17 19:10 Last Admin: 06/21/17 03:41 Dose: 1 tab - Labs Labs: 06/21/17 12:04 06/21/17 12:04 PT 11.3 SECONDS (9.7-12.2) 06/20/17 14:44 INR 1.0 06/20/17 14:44 APTT 33 SECONDS (21-34) 06/20/17 14:44 - Constitutional Appears: Well - Head Exam Head Exam: ATRAUMATIC, NORMAL INSPECTION, NORMOCEPHALIC - Eye Exam Eye Exam: EOMI, Normal appearance - ENT Exam ENT Exam: Mucous Membranes Moist - Respiratory Exam Respiratory Exam: NORMAL BREATHING PATTERN. absent: Accessory Muscle Use, Respiratory Distress - GI/Abdominal Exam GI & Abdominal Exam: Soft. absent: Distended, Firm, Guarding, Rigid Additional comments: mild brandt-ostomy pain. Ileostomy bag in place. No leaks - Extremities Exam Extremities Exam: Normal Inspection. absent: Calf Tenderness - Neurological Exam Neurological Exam: Alert, Awake Assessment and Plan - Assessment and Plan (Free Text) Assessment: 61yo F with hx of Ex lap with small bowel resection, bladder repair, Appendectomy, Ileostomy, and bilateral nephrostomy tubes. Patient returned from [facility] 06/[facility] due to ileostomy leaks and skin excoriation - Continue to apply [place] skin protectant around ostomy appliance as per wound care nursing - Topical lidocaine 5% cream around ileostomy site for local anesthesia as needed - Abx as per ID Further recs as per Dr. Misha Davis PGY1 surgery pager: [phone] <Sumeet Cabral - Last Filed: 06/22/17 18:05> Objective - Vital Signs/Intake and Output Vital Signs (last 24 hours): Temp Pulse Resp BP Pulse Ox 98.1 F 92 H 18 91/48 L 100 06/22/17 17:43 06/22/17 17:43 06/22/17 17:43 06/22/17 17:43 06/22/17 16:00 Intake and Output: 06/22/17 06/22/17 06:59 18:59 Intake Total 640 1850 Output Total 1920 1430 Balance -1280 420 - Medications Medications: Current Medications Acetaminophen (Tylenol 325mg Tab) 650 mg PO Q4 PRN PRN Reason: Pain, Mild (1-3) Last Admin: 06/22/17 17:44 Dose: 650 mg Alprazolam (Xanax) 0.25 mg PO TID PRN PRN Reason: Anxiety Stop: 06/27/17 19:10 Ascorbic Acid (Vitamin C 500 Mg Tab) 500 mg PO DAILY [facility] Last Admin: 06/22/17 09:44 Dose: 500 mg Dronabinol (Marinol) 5 mg PO BID [facility] Last Admin: 06/22/17 17:45 Dose: 5 mg Enoxaparin Sodium (Lovenox) 40 mg SC DAILY [facility] Last Admin: 06/22/17 09:41 Dose: 40 mg Meropenem 1 gm/ Sodium (Chloride) 100 mls @ 100 mls/hr IVPB Q8 [facility] Last Admin: 06/22/17 13:24 Dose: 100 mls/hr Tigecycline 50 mg/ Sodium (Chloride) 100 mls @ 100 mls/hr IVPB Q12H [facility] Last Admin: 06/22/17 08:06 Dose: 100 mls/hr Sodium Chloride (Sodium Chloride 0.9%) 1,000 mls @ 50 mls/hr IV .Q20H [facility] Last Admin: 06/22/17 05:45 Dose: 50 mls/hr Insulin Aspart (Novolog) 0 unit SC ACHS [facility] PRN Reason: Protocol Last Admin: 06/22/17 16:52 Dose: Not Given Insulin Aspart (Novolog Mix 70/30 (70/30 Units/Ml)) 10 units SC BID [facility] Last Admin: 06/22/17 11:00 Dose: Not Given Lactobacillus Acidophilus (Bacid Acidophilus) 1 cap PO DAILY [facility] Last Admin: 06/22/17 09:41 Dose: 1 cap Magnesium Hydroxide (Milk Of Magnesia) 30 ml PO DAILY PRN PRN Reason: Constipation Mupirocin (Bactroban Ointment) 0 gm TOP DAILY [facility] Last Admin: 06/22/17 09:41 Dose: 1 applic - Labs Labs: 06/22/17 11:22 06/22/17 11:22 PT 11.3 SECONDS (9.7-12.2) 06/20/17 14:44 INR 1.0 06/20/17 14:44 APTT 33 SECONDS (21-34) 06/20/17 14:44 Attending/Attestation - Attestation I have personally seen and examined this patient.: Yes I have fully participated in the care of the patient.: Yes I have reviewed all pertinent clinical information, including history, physical exam and plan: Yes Notes (Text): Pt was seen and examined at bedside Agree with above note and assessment Pt is currently asymptomatic No leak since yesterday Ileostomy care c/w current mx Plan d.w primary team in detail
[2017-06-22 08:37] LABS: WBC URINE 1595 /hpf (0-5)
[2017-06-22] MEDS: Enoxaparin 40 mg Syringe SC SCH (09:41)
[2017-06-22] MEDS: Lactobacillus Acidophilus 500 MU Cap PO SCH (09:41)
[2017-06-22] MEDS: (Novolog Mix 70/30) Insulin Aspart/Insulin Aspar 100 units/ml SC SCH (11:00)
[2017-06-22 11:54] LABS: BASO % 0.4 % (0.0-2.0); EOS # 0.1 K/uL (0.0-0.7); EOS % 1.9 % (0.0-4.0); HEMATOCRIT 23.4 % (34.0-47.0); LYMPH # 1.8 K/uL (1.0-4.3); MEAN CELL VOLUME 87.2 fL (81.0-99.0); MEAN CORPUSCULAR HEMOGLOBIN 28.4 pg (27.0-31.0); MEAN CORPUSCULAR HGB CONC 32.6 g/dL (33.0-37.0); MEAN PLATELET VOLUME 8.5 fL (7.2-11.7); MONO # 0.4 K/uL (0.0-0.8); MONO % 6.3 % (0.0-10.0); NRBC % 0.1 % (0.0-2.0); RED CELL DISTRIBUTION WIDTH 13.8 % (11.5-14.5); WHITE BLOOD COUNT 6.9 K/uL (4.8-10.8)
[2017-06-22 12:38] LABS: BLOOD UREA NITROGEN 19 mg/dL (7-17); CALCIUM 7.1 mg/dl (8.6-10.4); CARBON DIOXIDE 24 mmol/L (22-30); CHLORIDE 107 mmol/L (98-107); GFR AFRICAN-AMERICAN > 60; GLUCOSE,RANDOM 171 mg/dL (65-105); POTASSIUM 3.9 mmol/L (3.6-5.2); SODIUM 134 mmol/L (132-148)
--- NOTE | 2017-06-22 17:39 | CP.PCM.PN ---
Subjective - Date & Time of Evaluation Date of Evaluation: 06/22/17 Time of Evaluation: 08:00 - Subjective Subjective: clinically same Objective - Vital Signs/Intake and Output Vital Signs (last 24 hours): Temp Pulse Resp BP Pulse Ox 98.4 F 103 H 18 102/63 100 06/22/17 17:28 06/22/17 17:28 06/22/17 17:28 06/22/17 17:28 06/22/17 16:00 Intake and Output: 06/22/17 06/22/17 06:59 18:59 Intake Total 640 1850 Output Total 1920 1430 Balance -1280 420 - Medications Medications: Current Medications Acetaminophen (Tylenol 325mg Tab) 650 mg PO Q4 PRN PRN Reason: Pain, Mild (1-3) Alprazolam (Xanax) 0.25 mg PO TID PRN PRN Reason: Anxiety Stop: 06/27/17 19:10 Ascorbic Acid (Vitamin C 500 Mg Tab) 500 mg PO DAILY [facility] Last Admin: 06/22/17 09:44 Dose: 500 mg Dronabinol (Marinol) 5 mg PO BID [facility] Last Admin: 06/22/17 09:42 Dose: 5 mg Enoxaparin Sodium (Lovenox) 40 mg SC DAILY [facility] Last Admin: 06/22/17 09:41 Dose: 40 mg Meropenem 1 gm/ Sodium (Chloride) 100 mls @ 100 mls/hr IVPB Q8 [facility] Last Admin: 06/22/17 13:24 Dose: 100 mls/hr Tigecycline 50 mg/ Sodium (Chloride) 100 mls @ 100 mls/hr IVPB Q12H [facility] Last Admin: 06/22/17 08:06 Dose: 100 mls/hr Sodium Chloride (Sodium Chloride 0.9%) 1,000 mls @ 50 mls/hr IV .Q20H [facility] Last Admin: 06/22/17 05:45 Dose: 50 mls/hr Insulin Aspart (Novolog) 0 unit SC ACHS [facility] PRN Reason: Protocol Last Admin: 06/22/17 16:52 Dose: Not Given Insulin Aspart (Novolog Mix 70/30 (70/30 Units/Ml)) 10 units SC BID [facility] Last Admin: 06/22/17 11:00 Dose: Not Given Lactobacillus Acidophilus (Bacid Acidophilus) 1 cap PO DAILY [facility] Last Admin: 06/22/17 09:41 Dose: 1 cap Magnesium Hydroxide (Milk Of Magnesia) 30 ml PO DAILY PRN PRN Reason: Constipation Mupirocin (Bactroban Ointment) 0 gm TOP DAILY [facility] Last Admin: 06/22/17 09:41 Dose: 1 applic - Labs Labs: 06/22/17 11:22 06/22/17 11:22 PT 11.3 SECONDS (9.7-12.2) 06/20/17 14:44 INR 1.0 06/20/17 14:44 APTT 33 SECONDS (21-34) 06/20/17 14:44 - Constitutional Appears: Well - Head Exam Head Exam: ATRAUMATIC, NORMAL INSPECTION, NORMOCEPHALIC - Eye Exam Eye Exam: EOMI, Normal appearance, PERRL Pupil Exam: NORMAL ACCOMODATION, PERRL - ENT Exam ENT Exam: Mucous Membranes Moist, Normal Exam - Neck Exam Neck Exam: Full ROM, Normal Inspection. absent: Lymphadenopathy - Respiratory Exam Respiratory Exam: Clear to Ausculation Bilateral, NORMAL BREATHING PATTERN - Cardiovascular Exam Cardiovascular Exam: REGULAR RHYTHM, +S1, +S2. absent: Murmur - GI/Abdominal Exam GI & Abdominal Exam: Soft, Normal Bowel Sounds. absent: Tenderness - Rectal Exam Rectal Exam: Deferred Assessment and Plan (1) Abdominal wall pain Status: Acute (2) Ileostomy care Status: Acute (3) Colonic fistula Status: Acute (4) Dehydration Status: Acute (5) Displacement of Mckeon catheter Status: Acute (6) Ileostomy bag changed Status: Acute (7) Urinary tract infection Status: Acute - Assessment and Plan (Free Text) Plan: Patient examiend. Patient better, no fever. Continue Meropenem & Tigecycline. Continue insulin, pain management & supportive care.
--- NOTE | 2017-06-22 18:49 | CP.PCM.CON ---
History of Present Illness - History of Present Illness History of Present Illness: 61F well known to ID service. Most recently discharged to [place] on 06/15. Pt was being seen for "leaking" ostomy and subsequent skin irritation. Pt presents today with same problem. Ostomy continues to leak causing skin irritation and great deal of pain. Skin breakdown extending along crevice of abdominal fold to the left, as well as significantly to right flank. Pt was sent back to ED by [facility]. ID consulted for antibiotic management - [facility] Procedures BYPASS ILEUM TO CUTANEOUS, OPEN APPROACH (04/04/17) CHANGE DRAINAGE DEVICE IN KIDNEY, EXTERNAL APPROACH (06/05/17) COMPRESSION OF ABDOMINAL WALL USING PRESSURE DRESSING (04/04/17) DRAINAGE OF ABDOMEN SKIN, EXTERNAL APPROACH, DIAGNOSTIC (04/04/17) DRAINAGE OF LEFT KIDNEY PELVIS WITH DRAIN DEV, PERC APPROACH (06/05/17) DRAINAGE OF PERITONEAL CAVITY WITH DRAIN DEV, OPEN APPROACH (04/04/17) EXCISION OF ABDOMEN SKIN, EXTERNAL APPROACH (04/04/17) EXCISION OF ILEUM, OPEN APPROACH (04/04/17) EXTIRPATION OF MATTER FROM R LG INTEST, OPEN APPROACH (04/04/17) INSERTION OF FEEDING DEVICE INTO STOMACH, OPEN APPROACH (04/04/17) INTRODUCTION OF NUTRITIONAL INTO UP GI, VIA OPENING (04/04/17) RELEASE PERITONEUM, OPEN APPROACH (04/04/17) REPAIR BLADDER, OPEN APPROACH (04/04/17) RESECTION OF APPENDIX, OPEN APPROACH (04/04/17) Review of Systems - Review of Systems All systems: reviewed and no additional remarkable complaints except - Constitutional Constitutional: As Per HPI - EENT Eyes: absent: As Per HPI, Blind Spots, Blurred Vision, Change in Vision, Decreased Night Vision, Diplopia, Discharge, Dry Eye, Exophthalmos, Floaters, Irritation, Itchy Eyes, Loss of Peripheral Vision, Pain, Photophobia, Requires Corrective Lenses, Sees Flashes, Spots in Vision, Tunnel Vision, Other Visual Disturbances, Loss of Vision, Other Ears: absent: As Per HPI, Decreased Hearing, Ear Discharge, Ear Pain, Tinnitus, Abnormal Hearing, Disequilibrium, Dizziness, Other Nose/Mouth/Throat: absent: As Per HPI, Epistaxis, Nasal Congestion, Nasal Discharge, Nasal Obstruction, Nasal Trauma, Nose Pain, Post Nasal Drip, Sinus Pain, Sinus Pressure, Bleeding Gums, Change in Voice, Dental Pain, Dry Mouth, Dysphagia, Halitosis, Hoarsness, Lip Swelling, Mouth Lesions, Mouth Pain, Odynophagia, Sore Throat, Throat Swelling, Tongue Swelling, Facial Pain, Neck Pain, Neck Mass, Other - Breasts Breasts: absent: As Per HPI, Change in Shape, Mass, Pain, Nipple Discharge, Nipple Inversion, Skin Changes, Swelling, Other - Cardiovascular Cardiovascular: absent: As Per HPI, Acrocyanosis, Chest Pain, Chest Pain at Rest , Chest Pain with Activity, Claudication, Diaphoresis, Dyspnea, Dyspnea on Exertion, Edema, Irregular Heart Rhythm, Pain Radiating to Arm/Neck/Jaw, Leg Edema, Leg Ulcers, Lightheadedness, Orthopnea, Palpitations, Paroxysmal Nocturnal Dyspnea, Pedal Edema, Radiating Pain, Rapid Heart Rate, Slow Heart Rate, Syncope, Other - Respiratory Respiratory: absent: As Per HPI, Cough, Dyspnea, Hemoptysis, Dyspnea on Exertion , Wheezing, Snoring, Stridor, Pain on Inspiration, Chest Congestion, Excessive Mucous Production, Change in Mucous Color, Pain with Coughing, Other - Gastrointestinal Gastrointestinal: As Per HPI - Genitourinary Genitourinary: As Per HPI Past Patient History - Past Medical History & Family History Past Medical History?: Yes - Past Social History Smoking Status: Never Smoked - CARDIAC Hx Hypertension: Yes - PULMONARY Hx Respiratory Disorders: No - NEUROLOGICAL Hx Neurological Disorder: No - HEENT Hx HEENT Problems: No - RENAL Hx Chronic Kidney Disease: No - ENDOCRINE/METABOLIC Hx Hyperthyroidism: Yes - HEMATOLOGICAL/ONCOLOGICAL Hx Blood Disorders: No - INTEGUMENTARY Hx Dermatological Problems: No - MUSCULOSKELETAL/RHEUMATOLOGICAL Hx Arthritis: Yes (back) Hx Falls: No - GASTROINTESTINAL Hx Gastrointestinal Disorders: Yes Hx Colitis: Yes Hx Gastroesophageal Reflux: Yes Other/Comment: Gastroenteritis - GENITOURINARY/GYNECOLOGICAL Hx Genitourinary Disorders: Yes Hx Urinary Tract Infection: Yes Other/Comment: Hydroureter - PSYCHIATRIC Hx Substance Use: No - SURGICAL HISTORY Hx Surgeries: Yes Other/Comment: Nephrostomy insertion - ANESTHESIA Hx Anesthesia: Yes Hx Anesthesia Reactions: No Meds Allergies/Adverse Reactions: Allergies Allergy/AdvReac Type Severity Reaction Status Date / Time No Known Allergies Allergy Verified 06/02/17 21:17 - Medications Medications: Current Medications Acetaminophen (Tylenol 325mg Tab) 650 mg PO Q4 PRN PRN Reason: Pain, Mild (1-3) Last Admin: 06/22/17 17:44 Dose: 650 mg Alprazolam (Xanax) 0.25 mg PO TID PRN PRN Reason: Anxiety Stop: 06/27/17 19:10 Ascorbic Acid (Vitamin C 500 Mg Tab) 500 mg PO DAILY [facility] Last Admin: 06/22/17 09:44 Dose: 500 mg Dronabinol (Marinol) 5 mg PO BID [facility] Last Admin: 06/22/17 17:45 Dose: 5 mg Enoxaparin Sodium (Lovenox) 40 mg SC DAILY [facility] Last Admin: 06/22/17 09:41 Dose: 40 mg Meropenem 1 gm/ Sodium (Chloride) 100 mls @ 100 mls/hr IVPB Q8 [facility] Last Admin: 06/22/17 13:24 Dose: 100 mls/hr Tigecycline 50 mg/ Sodium (Chloride) 100 mls @ 100 mls/hr IVPB Q12H [facility] Last Admin: 06/22/17 08:06 Dose: 100 mls/hr Sodium Chloride (Sodium Chloride 0.9%) 1,000 mls @ 50 mls/hr IV .Q20H [facility] Last Admin: 06/22/17 05:45 Dose: 50 mls/hr Insulin Aspart (Novolog) 0 unit SC ACHS [facility] PRN Reason: Protocol Last Admin: 06/22/17 16:52 Dose: Not Given Insulin Aspart (Novolog Mix 70/30 (70/30 Units/Ml)) 10 units SC BID [facility] Last Admin: 06/22/17 11:00 Dose: Not Given Lactobacillus Acidophilus (Bacid Acidophilus) 1 cap PO DAILY [facility] Last Admin: 06/22/17 09:41 Dose: 1 cap Magnesium Hydroxide (Milk Of Magnesia) 30 ml PO DAILY PRN PRN Reason: Constipation Mupirocin (Bactroban Ointment) 0 gm TOP DAILY [facility] Last Admin: 06/22/17 09:41 Dose: 1 applic Physical Exam - Constitutional Appears: Non-toxic, Cachectic, Chronically Ill - Head Exam Head Exam: NORMOCEPHALIC - Eye Exam Eye Exam: PERRL. absent: Scleral icterus - ENT Exam ENT Exam: Mucous Membranes Dry, Normal External Ear Exam - Neck Exam Neck exam: Negative for: Lymphadenopathy - Respiratory Exam Respiratory Exam: Decreased Breath Sounds - Cardiovascular Exam Cardiovascular Exam: REGULAR RHYTHM - GI/Abdominal Exam GI & Abdominal Exam: Diminished Bowel Sounds - Rectal Exam Rectal Exam: Deferred - Exam Exam: NORMAL INSPECTION - Extremities Exam Extremities exam: Negative for: pedal edema - Back Exam Back exam: absent: CVA tenderness (L), CVA tenderness (R) - Neurological Exam Neurological exam: Alert, CN II-XII Intact, Oriented x3, Reflexes Normal - Psychiatric Exam Psychiatric exam: Depressed - Skin Skin Exam: Dry Results - Vital Signs Recent Vital Signs: Last Vital Signs Temp 98.3 F 06/22/17 18:13 Pulse 98 H 06/22/17 18:13 Resp 18 06/22/17 18:13 BP 100/65 06/22/17 18:13 Pulse Ox 100 06/22/17 16:00 - Labs Result Diagrams: 06/25/17 07:16 06/25/17 07:16 Labs: Laboratory Results - last 24 hr 06/21/17 06/21/17 06/22/17 12:04 21:12 05:59 WBC RBC Hgb Hct MCV MCH MCHC RDW Plt Count MPV Neut % (Auto) Lymph % (Auto) [place] % (Auto) Eos % (Auto) Baso % (Auto) Neut # Lymph # [place] # Eos # Baso # Sodium Potassium Chloride Carbon Dioxide Anion Gap BUN Creatinine Est GFR ( Amer) Est GFR (Non-Af Amer) POC Glucose (mg/dL) 129 H Random Glucose Calcium Phosphorus 2.1 L Magnesium 1.3 L Procalcitonin Urine Color Yellow Urine Clarity Turbid Urine pH 6.0 Ur Specific [place] 1.011 Urine Protein 1+ H Urine Glucose (UA) 1+ Urine Ketones Negative Urine Blood 2+ H Urine Nitrate Negative Urine Bilirubin Negative Urine Urobilinogen Normal Ur Leukocyte Esterase 3+ H Urine WBC (Auto) 1595 H Urine RBC (Auto) 95 H Urine WBC Clumps (Auto) Many H Urine Bacteria Occ H Urine Yeast (Budding) Many H Blood Type Antibody Screen 06/22/17 06/22/17 06/22/17 07:25 07:29 11:17 WBC RBC Hgb Hct MCV MCH MCHC RDW Plt Count MPV Neut % (Auto) Lymph % (Auto) [place] % (Auto) Eos % (Auto) Baso % (Auto) Neut # Lymph # [place] # Eos # Baso # Sodium Potassium Chloride Carbon Dioxide Anion Gap BUN Creatinine Est GFR ( Amer) Est GFR (Non-Af Amer) POC Glucose (mg/dL) 121 H 188 H Random Glucose Calcium Phosphorus Magnesium Procalcitonin 0.23 Urine Color Urine Clarity Urine pH Ur Specific [place] Urine Protein Urine Glucose (UA) Urine Ketones Urine Blood Urine Nitrate Urine Bilirubin Urine Urobilinogen Ur Leukocyte Esterase Urine WBC (Auto) Urine RBC (Auto) Urine WBC Clumps (Auto) Urine Bacteria Urine Yeast (Budding) Blood Type Antibody Screen 06/22/17 06/22/17 06/22/17 11:22 11:22 13:33 WBC 6.9 RBC 2.68 L Hgb 7.6 L Hct 23.4 L MCV 87.2 MCH 28.4 MCHC 32.6 L RDW 13.8 Plt Count 209 MPV 8.5 Neut % (Auto) 65.4 Lymph % (Auto) 26.0 [place] % (Auto) 6.3 Eos % (Auto) 1.9 Baso % (Auto) 0.4 Neut # 4.5 Lymph # 1.8 [place] # 0.4 Eos # 0.1 Baso # 0.0 Sodium 134 Potassium 3.9 Chloride 107 Carbon Dioxide 24 Anion Gap 8 L BUN 19 H Creatinine 0.4 L Est GFR ( Amer) > 60 Est GFR (Non-Af Amer) > 60 POC Glucose (mg/dL) Random Glucose 171 H Calcium 7.1 L Phosphorus Magnesium Procalcitonin Urine Color Urine Clarity Urine pH Ur Specific [place] Urine Protein Urine Glucose (UA) Urine Ketones Urine Blood Urine Nitrate Urine Bilirubin Urine Urobilinogen Ur Leukocyte Esterase Urine WBC (Auto) Urine RBC (Auto) Urine WBC Clumps (Auto) Urine Bacteria Urine Yeast (Budding) Blood Type B POSITIVE Antibody Screen Negative 06/22/17 16:25 WBC RBC Hgb Hct MCV MCH MCHC RDW Plt Count MPV Neut % (Auto) Lymph % (Auto) [place] % (Auto) Eos % (Auto) Baso % (Auto) Neut # Lymph # [place] # Eos # Baso # Sodium Potassium Chloride Carbon Dioxide Anion Gap BUN Creatinine Est GFR ( Amer) Est GFR (Non-Af Amer) POC Glucose (mg/dL) 168 H Random Glucose Calcium Phosphorus Magnesium Procalcitonin Urine Color Urine Clarity Urine pH Ur Specific [place] Urine Protein Urine Glucose (UA) Urine Ketones Urine Blood Urine Nitrate Urine Bilirubin Urine Urobilinogen Ur Leukocyte Esterase Urine WBC (Auto) Urine RBC (Auto) Urine WBC Clumps (Auto) Urine Bacteria Urine Yeast (Budding) Blood Type Antibody Screen Assessment & Plan (1) Abdominal wall pain Status: Acute (2) Ileostomy care Status: Acute - Assessment and Plan (Free Text) Assessment: CONT IV ANTIBIOTICS AND WOUND CARE
[2017-06-23] MEDS: (Novolog Mix 70/30) Insulin Aspart/Insulin Aspar 100 units/ml SC SCH ×3 (00:01→17:45)
[2017-06-23] MEDS: (Novolog) Insulin Aspart, Recombinant 100 u/ml 10 ml vial SC SCH ×5 (00:01→21:47)
[2017-06-23] MEDS: Sodium Chloride 0.9% 1,000 ML IV SCH (05:15)
[2017-06-23] MEDS: Meropenem 1 GM in Sodium Chloride 0.9% 100 ML IVPB SCH ×3 (05:25→21:47)
[2017-06-23 08:28] LABS: BASO % 0.2 % (0.0-2.0); EOS # 0.3 K/uL (0.0-0.7); EOS % 4.2 % (0.0-4.0); HEMATOCRIT 40.1 % (34.0-47.0); LYMPH # 1.5 K/uL (1.0-4.3); LYMPH % 23.5 % (20.0-40.0); MEAN CORPUSCULAR HGB CONC 32.6 g/dL (33.0-37.0); MEAN PLATELET VOLUME 8.2 fL (7.2-11.7); MONO # 0.5 K/uL (0.0-0.8); MONO % 8.5 % (0.0-10.0); NRBC % 0.1 % (0.0-2.0); RED CELL DISTRIBUTION WIDTH 15.7 % (11.5-14.5); WHITE BLOOD COUNT 6.2 K/uL (4.8-10.8)
[2017-06-23 08:33] LABS: MEAN CELL VOLUME 82.8 fL (81.0-99.0)
[2017-06-23 08:48] LABS: BLOOD UREA NITROGEN 19 mg/dL (7-17); CALCIUM 7.6 mg/dl (8.6-10.4); CARBON DIOXIDE 31 mmol/L (22-30); CHLORIDE 106 mmol/L (98-107); GFR AFRICAN-AMERICAN > 60; GLUCOSE,RANDOM 82 mg/dL (65-105); POTASSIUM 3.8 mmol/L (3.6-5.2); SODIUM 134 mmol/L (132-148)
[2017-06-23] MEDS: Enoxaparin 40 mg Syringe SC SCH (09:23)
[2017-06-23] MEDS: Lactobacillus Acidophilus 500 MU Cap PO SCH (09:23)
--- NOTE | 2017-06-23 16:51 | CP.PCM.PN ---
Subjective - Date & Time of Evaluation Date of Evaluation: 06/23/17 Time of Evaluation: 07:00 - Subjective Subjective: afeb rx reordered cultures noted Objective - Vital Signs/Intake and Output Vital Signs (last 24 hours): Temp Pulse Resp BP Pulse Ox 98.8 F 91 H 20 100/58 L 100 06/23/17 15:00 06/23/17 15:00 06/23/17 15:00 06/23/17 15:00 06/23/17 15:00 Intake and Output: 06/23/17 06/23/17 06:59 18:59 Intake Total 2240 900 Output Total 1800 725 Balance 440 175 - Medications Medications: Current Medications Acetaminophen (Tylenol 325mg Tab) 650 mg PO Q4 PRN PRN Reason: Pain, Mild (1-3) Last Admin: 06/23/17 01:45 Dose: 650 mg Alprazolam (Xanax) 0.25 mg PO TID PRN PRN Reason: Anxiety Stop: 06/27/17 19:10 Last Admin: 06/23/17 09:22 Dose: 0.25 mg Ascorbic Acid (Vitamin C 500 Mg Tab) 500 mg PO DAILY [facility] Last Admin: 06/23/17 09:23 Dose: 500 mg Dronabinol (Marinol) 5 mg PO BID [facility] Last Admin: 06/23/17 09:23 Dose: 5 mg Enoxaparin Sodium (Lovenox) 40 mg SC DAILY [facility] Last Admin: 06/23/17 09:23 Dose: 40 mg Meropenem 1 gm/ Sodium (Chloride) 100 mls @ 100 mls/hr IVPB Q8 [facility] Last Admin: 06/23/17 14:02 Dose: 100 mls/hr Tigecycline 50 mg/ Sodium (Chloride) 100 mls @ 100 mls/hr IVPB Q12H [facility] Last Admin: 06/23/17 09:00 Dose: 100 mls/hr Sodium Chloride (Sodium Chloride 0.9%) 1,000 mls @ 50 mls/hr IV .Q20H [facility] Last Admin: 06/23/17 05:15 Dose: Not Given Insulin Aspart (Novolog) 0 unit SC ACHS [facility] PRN Reason: Protocol Last Admin: 06/23/17 11:53 Dose: Not Given Insulin Aspart (Novolog Mix 70/30 (70/30 Units/Ml)) 10 units SC BID [facility] Last Admin: 06/23/17 09:45 Dose: Not Given Ketorolac Tromethamine (Toradol) 15 mg IVP Q8 PRN PRN Reason: Pain, moderate (4-7) Last Admin: 06/23/17 09:23 Dose: 15 mg Lactobacillus Acidophilus (Bacid Acidophilus) 1 cap PO DAILY [facility] Last Admin: 06/23/17 09:23 Dose: 1 cap Magnesium Hydroxide (Milk Of Magnesia) 30 ml PO DAILY PRN PRN Reason: Constipation Mupirocin (Bactroban Ointment) 0 gm TOP DAILY [facility] Last Admin: 06/23/17 10:00 Dose: 1 applic - Labs Labs: 06/23/17 08:21 06/23/17 08:21 PT 11.3 SECONDS (9.7-12.2) 06/20/17 14:44 INR 1.0 06/20/17 14:44 APTT 33 SECONDS (21-34) 06/20/17 14:44 - Constitutional Appears: Non-toxic, Chronically Ill - Head Exam Head Exam: NORMOCEPHALIC - Eye Exam Eye Exam: PERRL - ENT Exam ENT Exam: Mucous Membranes Dry - Neck Exam Neck Exam: absent: Lymphadenopathy - Respiratory Exam Respiratory Exam: Decreased Breath Sounds - Cardiovascular Exam Cardiovascular Exam: REGULAR RHYTHM - GI/Abdominal Exam GI & Abdominal Exam: Distended Assessment and Plan - Assessment and Plan (Free Text) Plan: discussed with dr rosanne paige rx in progress
--- NOTE | 2017-06-23 19:28 | CP.PCM.PN ---
Subjective - Date & Time of Evaluation Date of Evaluation: 06/23/17 Time of Evaluation: 07:20 - Subjective Subjective: clinically same Objective - Vital Signs/Intake and Output Vital Signs (last 24 hours): Temp Pulse Resp BP Pulse Ox 98.8 F 91 H 20 100/58 L 100 06/23/17 15:00 06/23/17 15:00 06/23/17 15:00 06/23/17 15:00 06/23/17 15:00 Intake and Output: 06/23/17 06/24/17 18:59 06:59 Intake Total 900 Output Total 725 Balance 175 - Medications Medications: Current Medications Acetaminophen (Tylenol 325mg Tab) 650 mg PO Q4 PRN PRN Reason: Pain, Mild (1-3) Last Admin: 06/23/17 01:45 Dose: 650 mg Alprazolam (Xanax) 0.25 mg PO TID PRN PRN Reason: Anxiety Stop: 06/27/17 19:10 Last Admin: 06/23/17 09:22 Dose: 0.25 mg Ascorbic Acid (Vitamin C 500 Mg Tab) 500 mg PO DAILY [facility] Last Admin: 06/23/17 09:23 Dose: 500 mg Dronabinol (Marinol) 5 mg PO BID [facility] Last Admin: 06/23/17 17:18 Dose: 5 mg Enoxaparin Sodium (Lovenox) 40 mg SC DAILY [facility] Last Admin: 06/23/17 09:23 Dose: 40 mg Meropenem 1 gm/ Sodium (Chloride) 100 mls @ 100 mls/hr IVPB Q8 [facility] Last Admin: 06/23/17 14:02 Dose: 100 mls/hr Tigecycline 50 mg/ Sodium (Chloride) 100 mls @ 100 mls/hr IVPB Q12H [facility] Last Admin: 06/23/17 09:00 Dose: 100 mls/hr Sodium Chloride (Sodium Chloride 0.9%) 1,000 mls @ 50 mls/hr IV .Q20H [facility] Last Admin: 06/23/17 05:15 Dose: Not Given Insulin Aspart (Novolog) 0 unit SC ACHS [facility] PRN Reason: Protocol Last Admin: 06/23/17 17:18 Dose: 2 unit Insulin Aspart (Novolog Mix 70/30 (70/30 Units/Ml)) 10 units SC BID [facility] Last Admin: 06/23/17 17:45 Dose: Not Given Ketorolac Tromethamine (Toradol) 15 mg IVP Q8 PRN PRN Reason: Pain, moderate (4-7) Last Admin: 06/23/17 09:23 Dose: 15 mg Lactobacillus Acidophilus (Bacid Acidophilus) 1 cap PO DAILY [facility] Last Admin: 06/23/17 09:23 Dose: 1 cap Magnesium Hydroxide (Milk Of Magnesia) 30 ml PO DAILY PRN PRN Reason: Constipation Mupirocin (Bactroban Ointment) 0 gm TOP DAILY [facility] Last Admin: 06/23/17 10:00 Dose: 1 applic - Labs Labs: 06/23/17 08:21 06/23/17 08:21 PT 11.3 SECONDS (9.7-12.2) 06/20/17 14:44 INR 1.0 06/20/17 14:44 APTT 33 SECONDS (21-34) 06/20/17 14:44 - Constitutional Appears: Well - Head Exam Head Exam: ATRAUMATIC, NORMAL INSPECTION, NORMOCEPHALIC - Eye Exam Eye Exam: EOMI, Normal appearance, PERRL Pupil Exam: NORMAL ACCOMODATION, PERRL - ENT Exam ENT Exam: Mucous Membranes Moist, Normal Exam - Neck Exam Neck Exam: Full ROM, Normal Inspection. absent: Lymphadenopathy - Respiratory Exam Respiratory Exam: Clear to Ausculation Bilateral, NORMAL BREATHING PATTERN - Cardiovascular Exam Cardiovascular Exam: REGULAR RHYTHM, +S1, +S2. absent: Murmur - GI/Abdominal Exam GI & Abdominal Exam: Soft, Normal Bowel Sounds. absent: Tenderness - Rectal Exam Rectal Exam: Deferred Assessment and Plan (1) Abdominal wall pain Status: Acute (2) Ileostomy care Status: Acute (3) Colonic fistula Status: Acute (4) Dehydration Status: Acute (5) Displacement of Mckeon catheter Status: Acute (6) Ileostomy bag changed Status: Acute (7) Urinary tract infection Status: Acute - Assessment and Plan (Free Text) Plan: Patient examiend. Patient better. Cultures preliminary negative. ID consult done. Advised to continue IV antibiotics. Continue meropenem & tigecycline. Continue insulin & supportive care.
[2017-06-24] MEDS: Meropenem 1 GM in Sodium Chloride 0.9% 100 ML IVPB SCH ×3 (05:37→22:34)
[2017-06-24] MEDS: Sodium Chloride 0.9% 1,000 ML IV SCH ×2 (05:38→05:39)
[2017-06-24] MEDS: (Novolog) Insulin Aspart, Recombinant 100 u/ml 10 ml vial SC SCH ×4 (08:20→21:26)
[2017-06-24] MEDS: Enoxaparin 40 mg Syringe SC SCH (10:12)
[2017-06-24] MEDS: (Novolog Mix 70/30) Insulin Aspart/Insulin Aspar 100 units/ml SC SCH ×2 (10:14→18:43)
[2017-06-24] MEDS: Lactobacillus Acidophilus 500 MU Cap PO SCH (10:30)
[2017-06-24] MEDS ORDERED: Dextrose 50% SYRINGE Inj (50 ml) ONE (11:16)
--- NOTE | 2017-06-24 16:32 | CP.PCM.PN ---
Subjective - Date & Time of Evaluation Date of Evaluation: 06/24/17 Time of Evaluation: 07:00 - Subjective Subjective: clinically same Objective - Vital Signs/Intake and Output Vital Signs (last 24 hours): Temp Pulse Resp BP Pulse Ox 98.3 F 102 H 20 95/52 L 100 06/24/17 15:00 06/24/17 15:00 06/24/17 15:00 06/24/17 15:00 06/24/17 15:00 Intake and Output: 06/24/17 06/24/17 06:59 18:59 Intake Total 1600 1000 Output Total 2050 750 Balance -450 250 - Medications Medications: Current Medications Acetaminophen (Tylenol 325mg Tab) 650 mg PO Q4 PRN PRN Reason: Pain, Mild (1-3) Last Admin: 06/23/17 01:45 Dose: 650 mg Alprazolam (Xanax) 0.25 mg PO TID PRN PRN Reason: Anxiety Stop: 06/27/17 19:10 Last Admin: 06/23/17 09:22 Dose: 0.25 mg Ascorbic Acid (Vitamin C 500 Mg Tab) 500 mg PO DAILY [facility] Last Admin: 06/24/17 10:30 Dose: Not Given Dronabinol (Marinol) 5 mg PO BID [facility] Last Admin: 06/24/17 10:30 Dose: Not Given Enoxaparin Sodium (Lovenox) 40 mg SC DAILY [facility] Last Admin: 06/24/17 10:12 Dose: 40 mg Meropenem 1 gm/ Sodium (Chloride) 100 mls @ 100 mls/hr IVPB Q8 [facility] Last Admin: 06/24/17 13:34 Dose: 100 mls/hr Tigecycline 50 mg/ Sodium (Chloride) 100 mls @ 100 mls/hr IVPB Q12H [facility] Last Admin: 06/24/17 08:33 Dose: 100 mls/hr Insulin Aspart (Novolog) 0 unit SC ACHS [facility] PRN Reason: Protocol Last Admin: 06/24/17 11:31 Dose: Not Given Insulin Aspart (Novolog Mix 70/30 (70/30 Units/Ml)) 10 units SC BID [facility] Last Admin: 06/24/17 10:14 Dose: 10 units Ketorolac Tromethamine (Toradol) 15 mg IVP Q8 PRN PRN Reason: Pain, moderate (4-7) Last Admin: 06/23/17 09:23 Dose: 15 mg Lactobacillus Acidophilus (Bacid Acidophilus) 1 cap PO DAILY [facility] Last Admin: 06/24/17 10:30 Dose: Not Given Magnesium Hydroxide (Milk Of Magnesia) 30 ml PO DAILY PRN PRN Reason: Constipation Mupirocin (Bactroban Ointment) 0 gm TOP DAILY [facility] Last Admin: 06/24/17 10:30 Dose: Not Given - Labs Labs: 06/23/17 08:21 06/23/17 08:21 PT 11.3 SECONDS (9.7-12.2) 06/20/17 14:44 INR 1.0 06/20/17 14:44 APTT 33 SECONDS (21-34) 06/20/17 14:44 - Constitutional Appears: Well - Head Exam Head Exam: ATRAUMATIC, NORMAL INSPECTION, NORMOCEPHALIC - Eye Exam Eye Exam: EOMI, Normal appearance, PERRL Pupil Exam: NORMAL ACCOMODATION, PERRL - ENT Exam ENT Exam: Mucous Membranes Moist, Normal Exam - Neck Exam Neck Exam: Full ROM, Normal Inspection. absent: Lymphadenopathy - Respiratory Exam Respiratory Exam: Decreased Breath Sounds - Cardiovascular Exam Cardiovascular Exam: REGULAR RHYTHM, +S1, +S2 - GI/Abdominal Exam GI & Abdominal Exam: Soft, Diminished Bowel Sounds - Rectal Exam Rectal Exam: Deferred Assessment and Plan (1) Abdominal wall pain Status: Acute (2) Ileostomy care Status: Acute (3) Colonic fistula Status: Acute (4) Dehydration Status: Acute (5) Displacement of Mckeon catheter Status: Acute (6) Ileostomy bag changed Status: Acute (7) Urinary tract infection Status: Acute - Assessment and Plan (Free Text) Plan: Patient examined. Patient feeling better. Patient had full meals yesterday. Continue antibiotics & supportive care.
[2017-06-25] MEDS: Meropenem 1 GM in Sodium Chloride 0.9% 100 ML IVPB SCH ×3 (05:28→21:13)
[2017-06-25 07:29] LABS: BASO % 0.2 % (0.0-2.0); EOS # 0.1 K/uL (0.0-0.7); EOS % 1.7 % (0.0-4.0); HEMATOCRIT 40.6 % (34.0-47.0); LYMPH # 2.5 K/uL (1.0-4.3); LYMPH % 33.1 % (20.0-40.0); MEAN CORPUSCULAR HEMOGLOBIN 28.1 pg (27.0-31.0); MEAN CORPUSCULAR HGB CONC 33.5 g/dL (33.0-37.0); MEAN PLATELET VOLUME 8.6 fL (7.2-11.7); MONO # 0.7 K/uL (0.0-0.8); NRBC % 0.1 % (0.0-2.0); WHITE BLOOD COUNT 7.4 K/uL (4.8-10.8)
[2017-06-25] MEDS: (Novolog) Insulin Aspart, Recombinant 100 u/ml 10 ml vial SC SCH ×4 (07:37→21:20)
[2017-06-25 08:06] LABS: ALB/GLOB RATIO 0.6 (1.0-2.1); ALKALINE PHOSPHATASE 150 U/L (38-126); ALT/SGPT 93 U/L (9-52); AST/SGOT 117 U/L (14-36); BILIRUBIN,TOTAL 0.9 mg/dL (0.2-1.3); BLOOD UREA NITROGEN 30 mg/dL (7-17); CALCIUM 7.7 mg/dl (8.6-10.4); CARBON DIOXIDE 29 mmol/L (22-30); CHLORIDE 104 mmol/L (98-107); GFR AFRICAN-AMERICAN > 60; GLUCOSE,RANDOM 84 mg/dL (65-105); POTASSIUM 3.9 mmol/L (3.6-5.2); SODIUM 137 mmol/L (132-148); TOTAL PROTEIN 5.9 g/dL (6.3-8.3)
--- NOTE | 2017-06-25 09:20 | CP.PCM.PN ---
Subjective - Date & Time of Evaluation Date of Evaluation: 06/25/17 Time of Evaluation: 07:00 - Subjective Subjective: clinically same Objective - Vital Signs/Intake and Output Vital Signs (last 24 hours): Temp Pulse Resp BP Pulse Ox 98.2 F 90 20 91/61 L 100 06/25/17 00:00 06/25/17 00:00 06/25/17 00:00 06/25/17 00:00 06/25/17 00:00 Intake and Output: 06/25/17 06/25/17 06:59 18:59 Intake Total 1100 Output Total 1560 Balance -460 - Medications Medications: Current Medications Acetaminophen (Tylenol 325mg Tab) 650 mg PO Q4 PRN PRN Reason: Pain, Mild (1-3) Last Admin: 06/23/17 01:45 Dose: 650 mg Alprazolam (Xanax) 0.25 mg PO TID PRN PRN Reason: Anxiety Stop: 06/27/17 19:10 Last Admin: 06/23/17 09:22 Dose: 0.25 mg Ascorbic Acid (Vitamin C 500 Mg Tab) 500 mg PO DAILY [facility] Last Admin: 06/24/17 10:30 Dose: Not Given Dronabinol (Marinol) 5 mg PO BID [facility] Last Admin: 06/24/17 18:18 Dose: 5 mg Enoxaparin Sodium (Lovenox) 40 mg SC DAILY [facility] Last Admin: 06/24/17 10:12 Dose: 40 mg Meropenem 1 gm/ Sodium (Chloride) 100 mls @ 100 mls/hr IVPB Q8 [facility] Last Admin: 06/25/17 05:28 Dose: 100 mls/hr Tigecycline 50 mg/ Sodium (Chloride) 100 mls @ 100 mls/hr IVPB Q12H [facility] Last Admin: 06/25/17 07:21 Dose: 100 mls/hr Insulin Aspart (Novolog) 0 unit SC ACHS [facility] PRN Reason: Protocol Last Admin: 06/25/17 07:37 Dose: Not Given Insulin Aspart (Novolog Mix 70/30 (70/30 Units/Ml)) 10 units SC BID [facility] Last Admin: 06/24/17 18:43 Dose: Not Given Lactobacillus Acidophilus (Bacid Acidophilus) 1 cap PO DAILY [facility] Last Admin: 06/24/17 10:30 Dose: Not Given Magnesium Hydroxide (Milk Of Magnesia) 30 ml PO DAILY PRN PRN Reason: Constipation Mupirocin (Bactroban Ointment) 0 gm TOP DAILY [facility] Last Admin: 06/24/17 10:30 Dose: Not Given Ondansetron HCl (Zofran Inj) 4 mg IVP Q6 PRN PRN Reason: Nausea/Vomiting Last Admin: 06/25/17 07:05 Dose: 4 mg - Labs Labs: 06/25/17 07:16 06/25/17 07:16 PT 11.3 SECONDS (9.7-12.2) 06/20/17 14:44 INR 1.0 06/20/17 14:44 APTT 33 SECONDS (21-34) 06/20/17 14:44 - Constitutional Appears: Well - Head Exam Head Exam: ATRAUMATIC, NORMAL INSPECTION, NORMOCEPHALIC - Eye Exam Eye Exam: EOMI, Normal appearance, PERRL Pupil Exam: NORMAL ACCOMODATION, PERRL - ENT Exam ENT Exam: Mucous Membranes Moist, Normal Exam - Neck Exam Neck Exam: Full ROM, Normal Inspection. absent: Lymphadenopathy - Respiratory Exam Respiratory Exam: Decreased Breath Sounds - Cardiovascular Exam Cardiovascular Exam: REGULAR RHYTHM, +S1, +S2 - GI/Abdominal Exam GI & Abdominal Exam: Soft, Diminished Bowel Sounds - Rectal Exam Rectal Exam: Deferred Assessment and Plan (1) Abdominal wall pain Status: Acute (2) Ileostomy care Status: Acute (3) Colonic fistula Status: Acute (4) Dehydration Status: Acute (5) Displacement of Mckeon catheter Status: Acute (6) Ileostomy bag changed Status: Acute (7) Urinary tract infection Status: Acute - Assessment and Plan (Free Text) Plan: Patient examiend. Patient better, no fever. Patient is clinically improving. Today's laboratory investigations are normal. Continue antibiotics & supportive care.
[2017-06-25] MEDS: Lactobacillus Acidophilus 500 MU Cap PO SCH (09:31)
[2017-06-25] MEDS: Enoxaparin 40 mg Syringe SC SCH (09:31)
[2017-06-25] MEDS: (Novolog Mix 70/30) Insulin Aspart/Insulin Aspar 100 units/ml SC SCH ×2 (09:32→17:02)
--- NOTE | 2017-06-25 15:42 | CP.PCM.PN ---
Subjective - Date & Time of Evaluation Date of Evaluation: 06/25/17 Time of Evaluation: 07:00 - Subjective Subjective: improving Objective - Vital Signs/Intake and Output Vital Signs (last 24 hours): Temp Pulse Resp BP Pulse Ox 97.3 F L 110 H 20 118/72 100 06/25/17 10:00 06/25/17 10:00 06/25/17 10:00 06/25/17 10:00 06/25/17 10:00 Intake and Output: 06/25/17 06/25/17 06:59 18:59 Intake Total 1100 700 Output Total 1560 750 Balance -460 -50 - Medications Medications: Current Medications Acetaminophen (Tylenol 325mg Tab) 650 mg PO Q4 PRN PRN Reason: Pain, Mild (1-3) Last Admin: 06/23/17 01:45 Dose: 650 mg Alprazolam (Xanax) 0.25 mg PO TID PRN PRN Reason: Anxiety Stop: 06/27/17 19:10 Last Admin: 06/23/17 09:22 Dose: 0.25 mg Ascorbic Acid (Vitamin C 500 Mg Tab) 500 mg PO DAILY [facility] Last Admin: 06/25/17 09:31 Dose: 500 mg Dronabinol (Marinol) 5 mg PO BID [facility] Last Admin: 06/25/17 09:31 Dose: 5 mg Enoxaparin Sodium (Lovenox) 40 mg SC DAILY [facility] Last Admin: 06/25/17 09:31 Dose: 40 mg Meropenem 1 gm/ Sodium (Chloride) 100 mls @ 100 mls/hr IVPB Q8 [facility] Last Admin: 06/25/17 13:22 Dose: 100 mls/hr Tigecycline 50 mg/ Dextrose 50 mls @ 100 mls/hr IVPB Q12H [facility] Insulin Aspart (Novolog) 0 unit SC ACHS [facility] PRN Reason: Protocol Last Admin: 06/25/17 11:10 Dose: Not Given Insulin Aspart (Novolog Mix 70/30 (70/30 Units/Ml)) 10 units SC BID [facility] Last Admin: 06/25/17 09:32 Dose: Not Given Lactobacillus Acidophilus (Bacid Acidophilus) 1 cap PO DAILY [facility] Last Admin: 06/25/17 09:31 Dose: 1 cap Magnesium Hydroxide (Milk Of Magnesia) 30 ml PO DAILY PRN PRN Reason: Constipation Mupirocin (Bactroban Ointment) 0 gm TOP DAILY [facility] Last Admin: 06/25/17 09:32 Dose: 1 applic Ondansetron HCl (Zofran Inj) 4 mg IVP Q6 PRN PRN Reason: Nausea/Vomiting Last Admin: 06/25/17 13:06 Dose: 4 mg - Labs Labs: 06/25/17 07:16 06/25/17 07:16 PT 11.3 SECONDS (9.7-12.2) 06/20/17 14:44 INR 1.0 06/20/17 14:44 APTT 33 SECONDS (21-34) 06/20/17 14:44 - Constitutional Appears: Non-toxic, Chronically Ill - Head Exam Head Exam: NORMOCEPHALIC - Eye Exam Eye Exam: PERRL - ENT Exam ENT Exam: Mucous Membranes Dry - Neck Exam Neck Exam: absent: Lymphadenopathy - Respiratory Exam Respiratory Exam: Decreased Breath Sounds - Cardiovascular Exam Cardiovascular Exam: REGULAR RHYTHM - GI/Abdominal Exam GI & Abdominal Exam: Distended Assessment and Plan (1) Abdominal wall pain Status: Acute (2) Ileostomy care Status: Acute
[2017-06-25] MEDS: WATER IVPB SCH (19:25)
[2017-06-25] MEDS: DEXTROSE 5% IVPB SCH (19:25)
[2017-06-25] MEDS: TIGECYCLINE IVPB SCH (19:25)
--- NOTE | 2017-06-25 21:08 | PCM.RRT ---
WAITER/WAITRESS INFORMAL Nurses Assessment - Situation Date: 06/21/17 Time WAITER/WAITRESS INFORMAL was called: 08:05 WAITER/WAITRESS INFORMAL Responder Arrival Time:: 08:05 - IV IV Inserted during WAITER/WAITRESS INFORMAL?: No - Respiratory WAITER/WAITRESS INFORMAL Delivery Method: Room Air Received Nebulizer Treatments: No Was the Patient Ventilated with Bag/Mask 100% O2?: No Secretions Suctioned?: No Was the Patient Intubated?: No Was the Patient Placed on a Ventilator?: No - Ventilator Settings Ventilator Respiratory Rate Settin Ventilator Tidal Volume Settin - Medication Medications Administered During WAITER/WAITRESS INFORMAL: zofran 4mg IV, Ativan 1mg IV - Diagnostic Test Ordered EKG: No Chest X-Ray: No CT Scan: No CPR started during WAITER/WAITRESS INFORMAL?: No - Vital Signs Vital Signs: Rapid Response Vital Sign T 98.2 BP 136/78 HR 120 RR 20 O2 95% RA - [place] Coma Scale Coma Scale Eye Opening: Spontaneous Coma Scale Motor: Obeys Commands Movement Coma Scale Verbal: Oriented Coma Scale Total: 15 - Time WAITER/WAITRESS INFORMAL Ended Time WAITER/WAITRESS INFORMAL Ended: 08:45 - Vital Signs at end of WAITER/WAITRESS INFORMAL Vital Signs at end of WAITER/WAITRESS INFORMAL: Rapid Response End Vital Sign T 98.2 BP 136/78 HR 120 RR 20 O2 95% RA - Recommendations 5) WAITER/WAITRESS INFORMAL Level of Care Recommendations: Remain in current setting Notifications: Attending Physician I.Reason for WAITER/WAITRESS INFORMAL - A) Acute Change in Patient: Subjective: Unresponsive. When i entered the room the patient was responsive and VS were stable. Cancelled WAITER/WAITRESS INFORMAL - Neurological Status (Select all that apply): Alert, Responsive, Oriented, Verbal, Follows Commands - Respiratory Oxygen Delivery Method: Room Air - Constitutional Appears: Chronically Ill - Head Head Exam: ATRAUMATIC, NORMAL INSPECTION, NORMOCEPHALIC - Eyes Eye Exam: EOMI - Respiratory Exam Respiratory Exam: Clear to Ausculation Bilateral, NORMAL BREATHING PATTERN - Cardiovascular Exam Cardiovascular Exam: Tachycardia - GI/Abdominal Exam GI & Abdominal Exam: Soft, Tenderness (minimal), Normal Bowel Sounds. absent: Distended Additional comments: ostomy with soft stool, no blood. 150 stool in gonzalez - Neurological Exam Neurological Exam: Alert, Awake, Oriented x3 Plan - Assessment of Findings&Treatment Plan Continue to monitor, Zofran, Ativan
[2017-06-26] MEDS: Meropenem 1 GM in Sodium Chloride 0.9% 100 ML IVPB SCH ×2 (05:09→13:48)
[2017-06-26] MEDS: TIGECYCLINE IVPB SCH ×2 (07:22→21:36)
[2017-06-26] MEDS: DEXTROSE 5% IVPB SCH ×2 (07:22→21:36)
[2017-06-26] MEDS: WATER IVPB SCH ×2 (07:22→21:36)
[2017-06-26] MEDS: (Novolog) Insulin Aspart, Recombinant 100 u/ml 10 ml vial SC SCH ×4 (07:28→21:36)
[2017-06-26] MEDS ORDERED: Fluconazole IV 100mg/50 ml NS 50 ML IVPB SCH (11:00)
[2017-06-26] MEDS: Enoxaparin 40 mg Syringe SC SCH ×2 (11:02→11:07)
[2017-06-26] MEDS: (Novolog Mix 70/30) Insulin Aspart/Insulin Aspar 100 units/ml SC SCH ×2 (11:03→18:12)
[2017-06-26] MEDS: Lactobacillus Acidophilus 500 MU Cap PO SCH (11:05)
[2017-06-26] MEDS: Dextrose 5%/0.45% NS 1,000 ML IV SCH (11:14)
--- NOTE | 2017-06-26 19:14 | CP.PCM.PN ---
Subjective - Date & Time of Evaluation Date of Evaluation: 06/26/17 Time of Evaluation: 07:00 - Subjective Subjective: clinically same Objective - Vital Signs/Intake and Output Vital Signs (last 24 hours): Temp Pulse Resp BP Pulse Ox 98 F 101 H 18 132/83 98 06/26/17 15:15 06/26/17 15:15 06/26/17 15:15 06/26/17 15:15 06/26/17 15:15 Intake and Output: 06/26/17 06/27/17 18:59 06:59 Intake Total 700 Output Total 350 Balance 350 - Medications Medications: Current Medications Acetaminophen (Tylenol 325mg Tab) 650 mg PO Q4 PRN PRN Reason: Pain, Mild (1-3) Last Admin: 06/23/17 01:45 Dose: 650 mg Alprazolam (Xanax) 0.25 mg PO TID PRN PRN Reason: Anxiety Stop: 06/27/17 19:10 Last Admin: 06/23/17 09:22 Dose: 0.25 mg Ascorbic Acid (Vitamin C 500 Mg Tab) 500 mg PO DAILY [facility] Last Admin: 06/26/17 11:03 Dose: Not Given Dronabinol (Marinol) 5 mg PO BID [facility] Last Admin: 06/26/17 18:13 Dose: Not Given Enoxaparin Sodium (Lovenox) 40 mg SC DAILY [facility] Last Admin: 06/26/17 11:07 Dose: 40 mg Meropenem 1 gm/ Sodium (Chloride) 100 mls @ 100 mls/hr IVPB Q8 [facility] Last Admin: 06/26/17 13:48 Dose: 100 mls/hr Tigecycline 50 mg/ Dextrose 50 mls @ 100 mls/hr IVPB Q12H [facility] Stop: 06/26/17 20:01 Last Admin: 06/26/17 07:22 Dose: 100 mls/hr Fluconazole (Diflucan Iv 100 Mg/50 Ml Ns) 50 mls @ 100 mls/hr IVPB Q24H [facility] Last Admin: 06/26/17 13:35 Dose: 100 mls/hr Dextrose/Sodium Chloride (Dextrose 5%/0.45% Ns 1000 Ml) 1,000 mls @ 50 mls/hr IV .Q20H [facility] Last Admin: 06/26/17 11:14 Dose: 50 mls/hr Tigecycline 50 mg/ Dextrose 100 mls @ 100 mls/hr IVPB Q12H [facility] Insulin Aspart (Novolog) 0 unit SC ACHS [facility] PRN Reason: Protocol Last Admin: 06/26/17 18:11 Dose: Not Given Insulin Aspart (Novolog Mix 70/30 (70/30 Units/Ml)) 10 units SC BID [facility] Last Admin: 06/26/17 18:12 Dose: Not Given Lactobacillus Acidophilus (Bacid Acidophilus) 1 cap PO DAILY [facility] Last Admin: 06/26/17 11:05 Dose: Not Given Magnesium Hydroxide (Milk Of Magnesia) 30 ml PO DAILY PRN PRN Reason: Constipation Mupirocin (Bactroban Ointment) 0 gm TOP DAILY [facility] Last Admin: 06/26/17 11:09 Dose: 1 applic Ondansetron HCl (Zofran Inj) 4 mg IVP Q6 PRN PRN Reason: Nausea/Vomiting Last Admin: 06/26/17 15:16 Dose: 4 mg Pantoprazole Sodium (Protonix Inj) 40 mg IVP DAILY [facility] Last Admin: 06/26/17 11:06 Dose: 40 mg - Labs Labs: 06/25/17 07:16 06/25/17 07:16 PT 11.3 SECONDS (9.7-12.2) 06/20/17 14:44 INR 1.0 06/20/17 14:44 APTT 33 SECONDS (21-34) 06/20/17 14:44 - Constitutional Appears: Well - Head Exam Head Exam: ATRAUMATIC, NORMAL INSPECTION, NORMOCEPHALIC - Eye Exam Eye Exam: EOMI, Normal appearance, PERRL Pupil Exam: NORMAL ACCOMODATION, PERRL - ENT Exam ENT Exam: Mucous Membranes Moist, Normal Exam - Neck Exam Neck Exam: Full ROM, Normal Inspection. absent: Lymphadenopathy - Respiratory Exam Respiratory Exam: Decreased Breath Sounds - Cardiovascular Exam Cardiovascular Exam: REGULAR RHYTHM, +S1, +S2 - GI/Abdominal Exam GI & Abdominal Exam: Soft, Diminished Bowel Sounds - Rectal Exam Rectal Exam: Deferred Assessment and Plan (1) Abdominal wall pain Status: Acute (2) Ileostomy care Status: Acute (3) Colonic fistula Status: Acute (4) Dehydration Status: Acute (5) Displacement of Mckeon catheter Status: Acute (6) Ileostomy bag changed Status: Acute (7) Urinary tract infection Status: Acute - Assessment and Plan (Free Text) Plan: Patient examined. Patient is feeling better. Continue meropenem, tigecycline & fluconazole. Continue local ointment. Continue supportive care.
--- NOTE | 2017-06-26 20:58 | CP.PCM.PN ---
Subjective - Date & Time of Evaluation Date of Evaluation: 06/26/17 Time of Evaluation: 05:00 - Subjective Subjective: Dictated Objective - Vital Signs/Intake and Output Vital Signs (last 24 hours): Temp Pulse Resp BP Pulse Ox 98 F 101 H 18 132/83 98 06/26/17 15:15 06/26/17 15:15 06/26/17 15:15 06/26/17 15:15 06/26/17 15:15 Intake and Output: 06/26/17 06/27/17 18:59 06:59 Intake Total 700 Output Total 350 Balance 350 - Medications Medications: Current Medications Acetaminophen (Tylenol 325mg Tab) 650 mg PO Q4 PRN PRN Reason: Pain, Mild (1-3) Last Admin: 06/23/17 01:45 Dose: 650 mg Alprazolam (Xanax) 0.25 mg PO TID PRN PRN Reason: Anxiety Stop: 06/27/17 19:10 Last Admin: 06/23/17 09:22 Dose: 0.25 mg Ascorbic Acid (Vitamin C 500 Mg Tab) 500 mg PO DAILY [facility] Last Admin: 06/26/17 11:03 Dose: Not Given Dronabinol (Marinol) 5 mg PO BID [facility] Last Admin: 06/26/17 18:13 Dose: Not Given Enoxaparin Sodium (Lovenox) 40 mg SC DAILY [facility] Last Admin: 06/26/17 11:07 Dose: 40 mg Fluconazole (Diflucan Iv 100 Mg/50 Ml Ns) 50 mls @ 100 mls/hr IVPB Q24H [facility] Last Admin: 06/26/17 13:35 Dose: 100 mls/hr Dextrose/Sodium Chloride (Dextrose 5%/0.45% Ns 1000 Ml) 1,000 mls @ 50 mls/hr IV .Q20H [facility] Last Admin: 06/26/17 11:14 Dose: 50 mls/hr Tigecycline 50 mg/ Dextrose 100 mls @ 100 mls/hr IVPB Q12H [facility] Imipenem/Cilastatin Sodium 500 (mg/ Dextrose) 100 mls @ 100 mls/hr IV Q8H [facility] Insulin Aspart (Novolog) 0 unit SC ACHS [facility] PRN Reason: Protocol Last Admin: 06/26/17 18:11 Dose: Not Given Insulin Aspart (Novolog Mix 70/30 (70/30 Units/Ml)) 10 units SC BID [facility] Last Admin: 06/26/17 18:12 Dose: Not Given Lactobacillus Acidophilus (Bacid Acidophilus) 1 cap PO DAILY [facility] Last Admin: 06/26/17 11:05 Dose: Not Given Magnesium Hydroxide (Milk Of Magnesia) 30 ml PO DAILY PRN PRN Reason: Constipation Mupirocin (Bactroban Ointment) 0 gm TOP DAILY [facility] Last Admin: 06/26/17 11:09 Dose: 1 applic Ondansetron HCl (Zofran Inj) 4 mg IVP Q6 PRN PRN Reason: Nausea/Vomiting Last Admin: 06/26/17 15:16 Dose: 4 mg Pantoprazole Sodium (Protonix Inj) 40 mg IVP DAILY [facility] Last Admin: 06/26/17 11:06 Dose: 40 mg - Labs Labs: 06/25/17 07:16 06/25/17 07:16 PT 11.3 SECONDS (9.7-12.2) 06/20/17 14:44 INR 1.0 06/20/17 14:44 APTT 33 SECONDS (21-34) 06/20/17 14:44
[2017-06-26 21:42] LABS: RBC URINE 75 /hpf (0-3); URINE BACTERIA MANY (<OCC); URINE BILIRUBIN NEGATIVE (NEGATIVE); URINE BLOOD 2+ (NEGATIVE); URINE COLOR Amber (YELLOW); URINE GLUCOSE (UA) NORMAL (Normal); URINE KETONE TRACE mg/dL (NEGATIVE); URINE LEUKOCYTE ESTERASE 3+ Leu/uL (Negative); URINE PROTEIN 2+ mg/dL (NEGATIVE); URINE UROBILINOGEN NORMAL mg/dL (0.2-1.0); WBC CLUMPS MANY /hpf; WBC URINE 1598 /hpf (0-5)
[2017-06-26] MEDS: Imipenem/Cilastatin 500 MG in Dextrose 5% In Water 100 ML IV SCH (21:57)
--- NOTE | 2017-06-27 00:52 | PN ---
DATE SUBJECTIVE: Patient was readmitted. She has bilateral nephrostomy tube and colostomy, and has skin excoriation on the abdomen due to the leaking of the ileostomy. Actually she has ileostomy instead of the colostomy, and the ileostomy has been leaking, and she has excoriations on her skin folds in the abdomen. Dr. Cutler saw her for me. Today I came to see her. She has been having vomiting, and nurse tells me she was asking for pineapple juice and the son brought it and she took it, and now she has been vomiting. She complains of mild abdominal pain, but she points to the same area of excoriation. PHYSICAL EXAMINATION VITAL SIGNS: T-max is 98, pulse is 101, blood pressure is 132/83, respirations are 18. GENERAL: She is awake, alert. She is very frail. She is vomiting. HEENT: Head is atraumatic. Pupils are reacting to light. Tongue is moist. NECK: Supple. LUNGS: Clear. No crackles or rales present. HEART: S1, S2, tachycardic. ABDOMEN: She has an ileostomy; and she has bilateral nephrostomy tubes, which are draining. EXTREMITIES: No edema. SKIN: She is still having lot of excoriations because of the irritation from the leaking stool, but right now, it seems to be improving. LABORATORY DATA: White count was 7.4 yesterday. ASSESSMENT AND PLAN: I am also told that the Merrem is not available any more. So, they are going to give imipenem, which I would give 500 q. 8, as the patient is pale and thin and has only weight of 90 pounds. She is also on Tygacil. Since today she is not eating, insulin is on hold. I had added Diflucan, as the urine culture showed some yeast. So, she is on multiple antibiotics, with bilateral nephrostomy, ileostomy, and remains weak and frail. We will follow. Erlin Miranda MD
[2017-06-27] MEDS: Imipenem/Cilastatin 500 MG in Dextrose 5% In Water 100 ML IV SCH (05:03)
[2017-06-27] MEDS: Tigecycline 50 MG in Dextrose 5% In Water 100 ML IVPB SCH ×2 (08:04→20:52)
[2017-06-27] MEDS: (Novolog) Insulin Aspart, Recombinant 100 u/ml 10 ml vial SC SCH ×4 (08:08→22:41)
[2017-06-27] MEDS: Lactobacillus Acidophilus 500 MU Cap PO SCH (10:03)
[2017-06-27] MEDS: Enoxaparin 40 mg Syringe SC SCH (10:05)
[2017-06-27] MEDS: (Novolog Mix 70/30) Insulin Aspart/Insulin Aspar 100 units/ml SC SCH ×2 (10:06→17:55)
[2017-06-27] MEDS: Dextrose 5%/0.45% NS 1,000 ML IV SCH (10:14)
[2017-06-27] MEDS: Fluconazole IV 100mg/50 ml NS 50 ML IVPB SCH (13:15)
[2017-06-27] MEDS: Imipenem/Cilastatin 500 MG in Dextrose 5% In Water 250 ML IV SCH ×2 (13:18→22:40)
--- NOTE | 2017-06-27 15:06 | CP.PCM.PN ---
Subjective - Date & Time of Evaluation Date of Evaluation: 06/27/17 Time of Evaluation: 02:45 - Subjective Subjective: dictated Objective - Vital Signs/Intake and Output Vital Signs (last 24 hours): Temp Pulse Resp BP Pulse Ox 98.4 F 104 H 20 130/86 99 06/27/17 07:56 06/27/17 07:56 06/27/17 07:56 06/27/17 07:56 06/27/17 07:56 Intake and Output: 06/27/17 06/27/17 06:59 18:59 Intake Total 1040 Output Total 1280 Balance -240 - Medications Medications: Current Medications Acetaminophen (Tylenol 325mg Tab) 650 mg PO Q4 PRN PRN Reason: Pain, Mild (1-3) Last Admin: 06/23/17 01:45 Dose: 650 mg Alprazolam (Xanax) 0.25 mg PO TID PRN PRN Reason: Anxiety Stop: 06/27/17 19:10 Last Admin: 06/23/17 09:22 Dose: 0.25 mg Ascorbic Acid (Vitamin C 500 Mg Tab) 500 mg PO DAILY [facility] Last Admin: 06/27/17 10:13 Dose: 500 mg Dronabinol (Marinol) 5 mg PO BID [facility] Last Admin: 06/27/17 10:05 Dose: 5 mg Enoxaparin Sodium (Lovenox) 30 mg SC DAILY [facility] Dextrose/Sodium Chloride (Dextrose 5%/0.45% Ns 1000 Ml) 1,000 mls @ 50 mls/hr IV .Q20H [facility] Last Admin: 06/27/17 10:14 Dose: 50 mls/hr Tigecycline 50 mg/ Dextrose 100 mls @ 100 mls/hr IVPB Q12H [facility] Last Admin: 06/27/17 08:04 Dose: 100 mls/hr Imipenem/Cilastatin Sodium 500 (mg/ Dextrose) 250 mls @ 250 mls/hr IV Q8H [facility] Last Admin: 06/27/17 13:18 Dose: 250 mls/hr Fluconazole (Diflucan Iv 100 Mg/50 Ml Ns) 50 mls @ 100 mls/hr IVPB Q24H [facility] Last Admin: 06/27/17 13:15 Dose: 100 mls/hr Insulin Aspart (Novolog) 0 unit SC ACHS [facility] PRN Reason: Protocol Last Admin: 06/27/17 11:55 Dose: Not Given Insulin Aspart (Novolog Mix 70/30 (70/30 Units/Ml)) 10 units SC BID [facility] Last Admin: 06/27/17 10:06 Dose: Not Given Lactobacillus Acidophilus (Bacid Acidophilus) 1 cap PO DAILY [facility] Last Admin: 06/27/17 10:03 Dose: 1 cap Magnesium Hydroxide (Milk Of Magnesia) 30 ml PO DAILY PRN PRN Reason: Constipation Mupirocin (Bactroban Ointment) 0 gm TOP DAILY [facility] Last Admin: 06/27/17 10:03 Dose: 4 applic Ondansetron HCl (Zofran Inj) 4 mg IVP Q6 PRN PRN Reason: Nausea/Vomiting Last Admin: 06/27/17 10:07 Dose: 4 mg Pantoprazole Sodium (Protonix Inj) 40 mg IVP DAILY [facility] Last Admin: 06/27/17 10:04 Dose: 40 mg - Labs Labs: 06/25/17 07:16 06/25/17 07:16 PT 11.3 SECONDS (9.7-12.2) 06/20/17 14:44 INR 1.0 06/20/17 14:44 APTT 33 SECONDS (21-34) 06/20/17 14:44
--- NOTE | 2017-06-27 16:39 | PN ---
SUBJECTIVE: The patient has no more vomiting, but she has a poor appetite. She does not want to eat and she complains of abdominal pain; however, there is less dermatitis now. PHYSICAL EXAMINATION: GENERAL: She is alert, awake, thin-built female. VITAL SIGNS: T-max is 98.4, heart rate of 104, blood pressure 130/86, respirations are 20. HEENT: Head is atraumatic, normocephalic. NECK: Supple. LUNGS: Clear. HEART: S1, S2. Tachycardic. ABDOMEN: Has dermatitis on the folds, but that is improving now. The colostomy is better. The wound care nurse put a cream there. EXTREMITIES: Have no edema. She does have bilateral nephrostomy tubes. LABORATORY DATA: Micro ocampo, the urine had yeast and we have added Diflucan, but her labs, there is no chemistry today. Urine, however, has shown a lot of pyuria. MEDICATIONS: She is on Marinol. ASSESSMENT AND PLAN: The patient is on antibiotics. She is getting fluconazole, imipenem and she is also on Tygacil. Maybe these antibiotics are taking away her appetite along with her condition at this time, but she is getting Marinol. Hopefully, it will improve. Erlin Miranda MD
--- NOTE | 2017-06-27 19:10 | CP.PCM.PN ---
Subjective - Date & Time of Evaluation Date of Evaluation: 06/27/17 Time of Evaluation: 07:00 - Subjective Subjective: clinically same Objective - Vital Signs/Intake and Output Vital Signs (last 24 hours): Temp Pulse Resp BP Pulse Ox 97.6 F 101 H 18 130/86 99 06/27/17 15:00 06/27/17 16:00 06/27/17 15:00 06/27/17 16:00 06/27/17 16:00 Intake and Output: 06/27/17 06/28/17 18:59 06:59 Intake Total 750 Output Total 750 Balance 0 - Medications Medications: Current Medications Acetaminophen (Tylenol 325mg Tab) 650 mg PO Q4 PRN PRN Reason: Pain, Mild (1-3) Last Admin: 06/23/17 01:45 Dose: 650 mg Alprazolam (Xanax) 0.25 mg PO TID PRN PRN Reason: Anxiety Stop: 06/27/17 19:10 Last Admin: 06/23/17 09:22 Dose: 0.25 mg Ascorbic Acid (Vitamin C 500 Mg Tab) 500 mg PO DAILY [facility] Last Admin: 06/27/17 10:13 Dose: 500 mg Dronabinol (Marinol) 5 mg PO BID [facility] Last Admin: 06/27/17 17:54 Dose: Not Given Enoxaparin Sodium (Lovenox) 30 mg SC DAILY [facility] Dextrose/Sodium Chloride (Dextrose 5%/0.45% Ns 1000 Ml) 1,000 mls @ 50 mls/hr IV .Q20H [facility] Last Admin: 06/27/17 10:14 Dose: 50 mls/hr Tigecycline 50 mg/ Dextrose 100 mls @ 100 mls/hr IVPB Q12H [facility] Last Admin: 06/27/17 08:04 Dose: 100 mls/hr Imipenem/Cilastatin Sodium 500 (mg/ Dextrose) 250 mls @ 250 mls/hr IV Q8H [facility] Last Admin: 06/27/17 13:18 Dose: 250 mls/hr Fluconazole (Diflucan Iv 100 Mg/50 Ml Ns) 50 mls @ 100 mls/hr IVPB Q24H [facility] Last Admin: 06/27/17 13:15 Dose: 100 mls/hr Insulin Aspart (Novolog) 0 unit SC ACHS [facility] PRN Reason: Protocol Last Admin: 06/27/17 16:30 Dose: Not Given Insulin Aspart (Novolog Mix 70/30 (70/30 Units/Ml)) 10 units SC BID [facility] Last Admin: 06/27/17 17:55 Dose: Not Given Lactobacillus Acidophilus (Bacid Acidophilus) 1 cap PO DAILY [facility] Last Admin: 06/27/17 10:03 Dose: 1 cap Magnesium Hydroxide (Milk Of Magnesia) 30 ml PO DAILY PRN PRN Reason: Constipation Mupirocin (Bactroban Ointment) 0 gm TOP DAILY [facility] Last Admin: 06/27/17 10:03 Dose: 4 applic Ondansetron HCl (Zofran Inj) 4 mg IVP Q6 PRN PRN Reason: Nausea/Vomiting Last Admin: 06/27/17 18:04 Dose: 4 mg Pantoprazole Sodium (Protonix Inj) 40 mg IVP DAILY [facility] Last Admin: 06/27/17 10:04 Dose: 40 mg - Labs Labs: 06/25/17 07:16 06/25/17 07:16 PT 11.3 SECONDS (9.7-12.2) 06/20/17 14:44 INR 1.0 06/20/17 14:44 APTT 33 SECONDS (21-34) 06/20/17 14:44 - Constitutional Appears: Well - Head Exam Head Exam: ATRAUMATIC, NORMAL INSPECTION, NORMOCEPHALIC - Eye Exam Eye Exam: EOMI, Normal appearance, PERRL Pupil Exam: NORMAL ACCOMODATION, PERRL - ENT Exam ENT Exam: Mucous Membranes Moist, Normal Exam - Neck Exam Neck Exam: Full ROM, Normal Inspection. absent: Lymphadenopathy - Respiratory Exam Respiratory Exam: Decreased Breath Sounds - Cardiovascular Exam Cardiovascular Exam: REGULAR RHYTHM, +S1, +S2 - GI/Abdominal Exam GI & Abdominal Exam: Soft, Diminished Bowel Sounds - Rectal Exam Rectal Exam: Deferred Assessment and Plan (1) Abdominal wall pain Status: Acute (2) Ileostomy care Status: Acute (3) Colonic fistula Status: Acute (4) Dehydration Status: Acute (5) Displacement of Mckeon catheter Status: Acute (6) Ileostomy bag changed Status: Acute (7) Urinary tract infection Status: Acute - Assessment and Plan (Free Text) Plan: Patinet examined. atient better. PAtient is started on imipenem/cilastatin. COntinue tigecycline & fluconazole. Continue supportive care.
[2017-06-28] MEDS: Dextrose 5%/0.45% NS 1,000 ML IV SCH ×3 (00:09→22:17)
[2017-06-28] MEDS: Imipenem/Cilastatin 500 MG in Dextrose 5% In Water 250 ML IV SCH ×2 (06:20→13:42)
[2017-06-28] MEDS: (Novolog) Insulin Aspart, Recombinant 100 u/ml 10 ml vial SC SCH ×4 (08:22→22:18)
[2017-06-28] MEDS: Tigecycline 50 MG in Dextrose 5% In Water 100 ML IVPB SCH (08:30)
[2017-06-28] MEDS: Enoxaparin 30 mg Syringe SC SCH (09:10)
[2017-06-28] MEDS: (Novolog Mix 70/30) Insulin Aspart/Insulin Aspar 100 units/ml SC SCH ×2 (10:25→18:00)
[2017-06-28] MEDS: Lactobacillus Acidophilus 500 MU Cap PO SCH (10:29)
[2017-06-28 11:34] LABS: BASO % 0.1 % (0.0-2.0); HEMATOCRIT 43.2 % (34.0-47.0); LYMPH # 1.7 K/uL (1.0-4.3); LYMPH % 14.5 % (20.0-40.0); MEAN CELL VOLUME 82.8 fL (81.0-99.0); MEAN CORPUSCULAR HEMOGLOBIN 28.1 pg (27.0-31.0); MEAN PLATELET VOLUME 8.4 fL (7.2-11.7); MONO # 0.8 K/uL (0.0-0.8); MONO % 7.3 % (0.0-10.0); NRBC % 0.1 % (0.0-2.0); RED CELL DISTRIBUTION WIDTH 15.2 % (11.5-14.5)
[2017-06-28 11:38] LABS: WHITE BLOOD COUNT 11.6 K/uL (4.8-10.8)
[2017-06-28 13:12] LABS: BILIRUBIN,TOTAL 1.4 mg/dL (0.2-1.3); CARBON DIOXIDE 25 mmol/L (22-30)
[2017-06-28 13:30] LABS: ALB/GLOB RATIO 0.6 (1.0-2.1); ALKALINE PHOSPHATASE 142 U/L (38-126); ALT/SGPT 186 U/L (9-52); AST/SGOT 291 U/L (14-36); BLOOD UREA NITROGEN 23 mg/dL (7-17); CALCIUM 7.5 mg/dl (8.6-10.4); CHLORIDE 92 mmol/L (98-107); GFR AFRICAN-AMERICAN > 60; GLUCOSE,RANDOM 152 mg/dL (65-105); POTASSIUM 3.3 mmol/L (3.6-5.2); SODIUM 121 mmol/L (132-148); TOTAL PROTEIN 5.6 g/dL (6.3-8.3)
[2017-06-28] MEDS: Fluconazole IV 100mg/50 ml NS 50 ML IVPB SCH (13:40)
[2017-06-28] MEDS ORDERED: Potassium Chloride 20 mEq/15 ml LIQ UD PO ONE (14:51)
--- NOTE | 2017-06-28 14:56 | CP.PCM.PN ---
<Edita Cerrato DO - Last Filed: 06/28/17 15:12> Subjective - Date & Time of Evaluation Date of Evaluation: 06/28/17 Time of Evaluation: 10:10 - Subjective Subjective: PGY2 medicine progress note for Dr. Higgins Patient seen and examined. Patient admits to poor appetite and nausea. Patient vomited this morning and did not want to eat lunch when re-examined later in the day. Objective - Vital Signs/Intake and Output Vital Signs (last 24 hours): Temp Pulse Resp BP Pulse Ox 98.1 F 108 H 20 133/68 100 06/28/17 07:35 06/28/17 07:35 06/28/17 07:35 06/28/17 07:35 06/28/17 07:35 Intake and Output: 06/28/17 06/28/17 06:59 18:59 Intake Total 500 1025 Output Total 775 1280 Balance -275 -255 - Medications Medications: Current Medications Acetaminophen (Tylenol 325mg Tab) 650 mg PO Q4 PRN PRN Reason: Pain, Mild (1-3) Last Admin: 06/27/17 23:58 Dose: 650 mg Ascorbic Acid (Vitamin C 500 Mg Tab) 500 mg PO DAILY [facility] Last Admin: 06/28/17 09:09 Dose: 500 mg Dronabinol (Marinol) 5 mg PO BID [facility] Last Admin: 06/28/17 09:31 Dose: 5 mg Enoxaparin Sodium (Lovenox) 30 mg SC DAILY [facility] Last Admin: 06/28/17 09:10 Dose: 30 mg Dextrose/Sodium Chloride (Dextrose 5%/0.45% Ns 1000 Ml) 1,000 mls @ 50 mls/hr IV .Q20H [facility] Last Admin: 06/28/17 02:15 Dose: Not Given Imipenem/Cilastatin Sodium 500 (mg/ Dextrose) 250 mls @ 250 mls/hr IV Q8H [facility] Last Admin: 06/28/17 13:42 Dose: 250 mls/hr Fluconazole (Diflucan Iv 100 Mg/50 Ml Ns) 50 mls @ 100 mls/hr IVPB Q24H [facility] Last Admin: 06/28/17 13:40 Dose: 100 mls/hr Tigecycline 50 mg/ Sodium (Chloride) 100 mls @ 100 mls/hr IVPB Q12H [facility] Insulin Aspart (Novolog) 0 unit SC ACHS [facility] PRN Reason: Protocol Last Admin: 06/28/17 12:24 Dose: Not Given Insulin Aspart (Novolog Mix 70/30 (70/30 Units/Ml)) 10 units SC BID [facility] Last Admin: 06/28/17 10:25 Dose: Not Given Lactobacillus Acidophilus (Bacid Acidophilus) 1 cap PO DAILY [facility] Last Admin: 06/28/17 10:29 Dose: 1 cap Magnesium Hydroxide (Milk Of Magnesia) 30 ml PO DAILY PRN PRN Reason: Constipation Mupirocin (Bactroban Ointment) 0 gm TOP DAILY [facility] Last Admin: 06/28/17 10:28 Dose: 1 applic Ondansetron HCl (Zofran Inj) 4 mg IVP Q6 PRN PRN Reason: Nausea/Vomiting Last Admin: 06/28/17 09:08 Dose: 4 mg Pantoprazole Sodium (Protonix Inj) 40 mg IVP DAILY [facility] Last Admin: 06/28/17 09:09 Dose: 40 mg - Labs Labs: 06/28/17 11:28 06/28/17 11:28 PT 11.3 SECONDS (9.7-12.2) 06/20/17 14:44 INR 1.0 06/20/17 14:44 APTT 33 SECONDS (21-34) 06/20/17 14:44 - Constitutional Appears: Cachectic, Chronically Ill - Head Exam Head Exam: NORMAL INSPECTION - Eye Exam Eye Exam: EOMI - ENT Exam ENT Exam: Mucous Membranes Dry - Respiratory Exam Respiratory Exam: Clear to Ausculation Bilateral, NORMAL BREATHING PATTERN - Cardiovascular Exam Cardiovascular Exam: +S1, +S2 - GI/Abdominal Exam GI & Abdominal Exam: Soft Additional comments: ileostomy right side abdomen with surrounding erythema - Exam Additional comments: b/l nephrostomy tubes - Extremities Exam Extremities Exam: Normal Inspection - Neurological Exam Neurological Exam: Alert, Awake - Skin Skin Exam: Dry, Erythema, Warm Assessment and Plan - Assessment and Plan (Free Text) Assessment: 61 year old female admitted with leaking ileostomy, cellulitis Cellulitis ID, Dr. Miranda, on the case continue IV antibiotics: Primaxin, Tigecycline, Fluconazole continue mupirocin ointment Poor appetite/ malnutrition continue marinol pureed diet continue zofran prn for nausea continue D5 1/2 NS @ 50cc/h continue ascorbic acid 500mg daily History colovesicular fistula following hysterectomy pt developed fistula which was resected at [facility] pt has had b/l nephrostomy tubes placed due to complications from surgery Diabetes continue ISS continue novolog 70/30 10u BID Electrolyte imbalance continue to monitor and replete as necessary Prophylaxis continue lovenox 30mg sc daily continue protonix 40mg IV daily All management as per Dr. Higgins <Tonya Higgins - Last Filed: 07/05/17 12:59> Objective - Vital Signs/Intake and Output Vital Signs (last 24 hours): Temp Pulse Resp BP Pulse Ox 97.7 F 114 H 20 98/72 L 100 07/05/17 07:19 07/05/17 07:19 07/05/17 07:19 07/05/17 07:19 07/05/17 07:19 Intake and Output: 07/05/17 07/05/17 06:59 18:59 Intake Total 1380 Output Total 1715 Balance -335 - Medications Medications: Current Medications Acetaminophen (Tylenol 325mg Tab) 650 mg PO Q4 PRN PRN Reason: Pain, Mild (1-3) Last Admin: 07/03/17 11:06 Dose: 650 mg Ascorbic Acid (Vitamin C 500 Mg Tab) 500 mg PO DAILY [facility] Last Admin: 07/05/17 09:30 Dose: 500 mg Dronabinol (Marinol) 5 mg PO BID [facility] Last Admin: 07/05/17 09:30 Dose: 5 mg Enoxaparin Sodium (Lovenox) 30 mg SC DAILY [facility] Last Admin: 07/05/17 09:30 Dose: 30 mg Hydromorphone HCl (Dilaudid) 0.5 mg IVP Q8 PRN PRN Reason: Pain, severe (8-10) Last Admin: 07/05/17 09:52 Dose: 0.5 mg Dextrose/Sodium Chloride (Dextrose 5%/0.9% Ns 1000 Ml) 1,000 mls @ 75 mls/hr IV .[id number] [facility] Last Admin: 07/05/17 01:47 Dose: 75 mls/hr Insulin Aspart (Novolog) 0 unit SC ACHS [facility] PRN Reason: Protocol Last Admin: 07/05/17 12:01 Dose: 2 unit Lactobacillus Acidophilus (Bacid Acidophilus) 1 cap PO BID [facility] Last Admin: 07/05/17 09:30 Dose: 1 cap Lidocaine HCl (Xylocaine 2%) 0 ea TOP Q12 [facility] Last Admin: 07/04/17 21:42 Dose: Not Given Magnesium Hydroxide (Milk Of Magnesia) 30 ml PO DAILY PRN PRN Reason: Constipation Metoclopramide HCl (Reglan) 10 mg IVP ACHS PRN PRN Reason: Nausea/Vomiting Mupirocin (Bactroban Ointment) 0 gm TOP DAILY [facility] Last Admin: 07/05/17 09:32 Dose: 1 applic Nystatin (Nystop Topical Powder) 1 applic TOP BID PRN PRN Reason: Rash Last Admin: 07/02/17 13:37 Dose: 1 applic Ondansetron HCl (Zofran Inj) 4 mg IVP Q6 PRN PRN Reason: Nausea/Vomiting Last Admin: 07/03/17 11:05 Dose: 4 mg Pantoprazole Sodium (Protonix Inj) 40 mg IVP DAILY [facility] Last Admin: 07/05/17 09:30 Dose: 40 mg Petrolatum (Desitin Original) 1 gm TOP TID [facility] Last Admin: 07/05/17 09:32 Dose: 1 applic Potassium Chloride (Potassium Chloride Oral Soln) 10 meq PO 0800 [facility] Last Admin: 07/05/17 08:01 Dose: Not Given - Labs Labs: 07/05/17 06:08 07/05/17 06:08 PT 11.3 SECONDS (9.7-12.2) 06/20/17 14:44 INR 1.0 06/20/17 14:44 APTT 33 SECONDS (21-34) 06/20/17 14:44 Assessment and Plan (1) Abdominal wall pain Status: Acute (2) Ileostomy care Status: Acute (3) Colonic fistula Status: Acute (4) Dehydration Status: Acute (5) Displacement of Mckeon catheter Status: Acute (6) Ileostomy bag changed Status: Acute (7) Urinary tract infection Status: Acute Attending/Attestation - Attestation I have personally seen and examined this patient.: Yes I have fully participated in the care of the patient.: Yes I have reviewed all pertinent clinical information, including history, physical exam and plan: Yes Notes (Text): Patient examined. Patient had one episode of vomiting today morning. Currently, patient is feeling nauseated. Cultures are negative. Continue supportive care. Continue antibiotics & pain management.
[2017-06-28] MEDS ORDERED: Potassium Chloride 20 mEq ER Tab PO STA (19:23)
--- NOTE | 2017-06-28 20:08 | CP.PCM.PN ---
Subjective - Date & Time of Evaluation Date of Evaluation: 06/28/17 Time of Evaluation: 07:00 - Subjective Subjective: clinically same Objective - Vital Signs/Intake and Output Vital Signs (last 24 hours): Temp Pulse Resp BP Pulse Ox 98 F 112 H 18 135/84 99 06/28/17 15:00 06/28/17 15:00 06/28/17 15:00 06/28/17 15:00 06/28/17 15:00 Intake and Output: 06/28/17 06/29/17 18:59 06:59 Intake Total 1025 Output Total 1280 Balance -255 - Medications Medications: Current Medications Acetaminophen (Tylenol 325mg Tab) 650 mg PO Q4 PRN PRN Reason: Pain, Mild (1-3) Last Admin: 06/27/17 23:58 Dose: 650 mg Ascorbic Acid (Vitamin C 500 Mg Tab) 500 mg PO DAILY [facility] Last Admin: 06/28/17 09:09 Dose: 500 mg Dronabinol (Marinol) 5 mg PO BID [facility] Last Admin: 06/28/17 18:40 Dose: 5 mg Enoxaparin Sodium (Lovenox) 30 mg SC DAILY [facility] Last Admin: 06/28/17 09:10 Dose: 30 mg Dextrose/Sodium Chloride (Dextrose 5%/0.45% Ns 1000 Ml) 1,000 mls @ 50 mls/hr IV .Q20H [facility] Last Admin: 06/28/17 02:15 Dose: Not Given Fluconazole (Diflucan Iv 100 Mg/50 Ml Ns) 50 mls @ 100 mls/hr IVPB Q24H [facility] Last Admin: 06/28/17 13:40 Dose: 100 mls/hr Tigecycline 50 mg/ Sodium (Chloride) 100 mls @ 100 mls/hr IVPB Q12H [facility] Last Admin: 06/28/17 20:01 Dose: 100 mls/hr Imipenem/Cilastatin Sodium 500 (mg/ Sodium Chloride) 100 mls @ 100 mls/hr IV Q8H [facility] Insulin Aspart (Novolog) 0 unit SC ACHS [facility] PRN Reason: Protocol Last Admin: 06/28/17 17:10 Dose: Not Given Insulin Aspart (Novolog Mix 70/30 (70/30 Units/Ml)) 10 units SC BID [facility] Last Admin: 06/28/17 18:00 Dose: Not Given Lactobacillus Acidophilus (Bacid Acidophilus) 1 cap PO DAILY [facility] Last Admin: 06/28/17 10:29 Dose: 1 cap Magnesium Hydroxide (Milk Of Magnesia) 30 ml PO DAILY PRN PRN Reason: Constipation Mupirocin (Bactroban Ointment) 0 gm TOP DAILY [facility] Last Admin: 06/28/17 10:28 Dose: 1 applic Ondansetron HCl (Zofran Inj) 4 mg IVP Q6 PRN PRN Reason: Nausea/Vomiting Last Admin: 06/28/17 18:51 Dose: 4 mg Pantoprazole Sodium (Protonix Inj) 40 mg IVP DAILY [facility] Last Admin: 06/28/17 09:09 Dose: 40 mg - Labs Labs: 06/28/17 11:28 06/28/17 11:28 PT 11.3 SECONDS (9.7-12.2) 06/20/17 14:44 INR 1.0 06/20/17 14:44 APTT 33 SECONDS (21-34) 06/20/17 14:44 - Constitutional Appears: Well - Head Exam Head Exam: ATRAUMATIC, NORMAL INSPECTION, NORMOCEPHALIC - Eye Exam Eye Exam: EOMI, Normal appearance, PERRL Pupil Exam: NORMAL ACCOMODATION, PERRL - ENT Exam ENT Exam: Mucous Membranes Moist, Normal Exam - Neck Exam Neck Exam: Full ROM, Normal Inspection. absent: Lymphadenopathy - Respiratory Exam Respiratory Exam: Decreased Breath Sounds - Cardiovascular Exam Cardiovascular Exam: REGULAR RHYTHM, +S1, +S2 - GI/Abdominal Exam GI & Abdominal Exam: Soft, Diminished Bowel Sounds - Rectal Exam Rectal Exam: Deferred Assessment and Plan (1) Abdominal wall pain Status: Acute (2) Ileostomy care Status: Acute (3) Colonic fistula Status: Acute (4) Dehydration Status: Acute (5) Displacement of Mckeon catheter Status: Acute (6) Ileostomy bag changed Status: Acute (7) Urinary tract infection Status: Acute - Assessment and Plan (Free Text) Plan: Patient examined. Patient had one episode of vomiting in morning which wa taken care of. As of now, patient is stable. Continue antibiotics and suportive care.
--- NOTE | 2017-06-28 21:22 | CP.PCM.PN ---
Subjective - Date & Time of Evaluation Date of Evaluation: 06/28/17 Time of Evaluation: 06:00 - Subjective Subjective: dictated Objective - Vital Signs/Intake and Output Vital Signs (last 24 hours): Temp Pulse Resp BP Pulse Ox 98 F 112 H 18 135/84 99 06/28/17 15:00 06/28/17 15:00 06/28/17 15:00 06/28/17 15:00 06/28/17 15:00 Intake and Output: 06/28/17 06/29/17 18:59 06:59 Intake Total 1025 Output Total 1280 Balance -255 - Medications Medications: Current Medications Acetaminophen (Tylenol 325mg Tab) 650 mg PO Q4 PRN PRN Reason: Pain, Mild (1-3) Last Admin: 06/27/17 23:58 Dose: 650 mg Ascorbic Acid (Vitamin C 500 Mg Tab) 500 mg PO DAILY [facility] Last Admin: 06/28/17 09:09 Dose: 500 mg Dronabinol (Marinol) 5 mg PO BID [facility] Last Admin: 06/28/17 18:40 Dose: 5 mg Enoxaparin Sodium (Lovenox) 30 mg SC DAILY [facility] Last Admin: 06/28/17 09:10 Dose: 30 mg Dextrose/Sodium Chloride (Dextrose 5%/0.45% Ns 1000 Ml) 1,000 mls @ 50 mls/hr IV .Q20H [facility] Last Admin: 06/28/17 02:15 Dose: Not Given Fluconazole (Diflucan Iv 100 Mg/50 Ml Ns) 50 mls @ 100 mls/hr IVPB Q24H [facility] Last Admin: 06/28/17 13:40 Dose: 100 mls/hr Tigecycline 50 mg/ Sodium (Chloride) 100 mls @ 100 mls/hr IVPB Q12H [facility] Last Admin: 06/28/17 20:01 Dose: 100 mls/hr Imipenem/Cilastatin Sodium 500 (mg/ Sodium Chloride) 100 mls @ 100 mls/hr IV Q8H [facility] Insulin Aspart (Novolog) 0 unit SC ACHS [facility] PRN Reason: Protocol Last Admin: 06/28/17 17:10 Dose: Not Given Insulin Aspart (Novolog Mix 70/30 (70/30 Units/Ml)) 10 units SC BID [facility] Last Admin: 06/28/17 18:00 Dose: Not Given Lactobacillus Acidophilus (Bacid Acidophilus) 1 cap PO DAILY [facility] Last Admin: 06/28/17 10:29 Dose: 1 cap Magnesium Hydroxide (Milk Of Magnesia) 30 ml PO DAILY PRN PRN Reason: Constipation Mupirocin (Bactroban Ointment) 0 gm TOP DAILY [facility] Last Admin: 06/28/17 10:28 Dose: 1 applic Ondansetron HCl (Zofran Inj) 4 mg IVP Q6 PRN PRN Reason: Nausea/Vomiting Last Admin: 06/28/17 18:51 Dose: 4 mg Pantoprazole Sodium (Protonix Inj) 40 mg IVP DAILY [facility] Last Admin: 06/28/17 09:09 Dose: 40 mg - Labs Labs: 06/28/17 11:28 06/28/17 11:28 PT 11.3 SECONDS (9.7-12.2) 06/20/17 14:44 INR 1.0 06/20/17 14:44 APTT 33 SECONDS (21-34) 06/20/17 14:44
--- NOTE | 2017-06-28 23:43 | PN ---
DATE: SUBJECTIVE: The patient says she does not feel right. She has been vomiting for the last few days. Her appetite is not there. She has the bilateral nephrostomy tubes, which are draining. She also had dressing done by the Wound Care nurse before. PHYSICAL EXAMINATION: GENERAL: She is frail. VITAL SIGNS: Temperature is 98, pulse of 112, blood pressure 135/84, respirations are 18. HEENT: Head is atraumatic, normocephalic. NECK: Supple. LUNGS: Clear. HEART: S1, S2 regular. ABDOMEN: Dermatitis has improved. Colostomy bag is not leaking anymore. Bilateral nephrostomy tube present. LABORATORY DATA: Her white count is 11.6, hemoglobin 14.7, hematocrit 43.2, platelet count is 178. Sodium is 121, potassium 3.3, is poor because of her poor intake. ASSESSMENT AND PLAN: I think I will take away Tygacil, as she is having severe nausea and vomiting, and that may be one of the components, and at this time the skin has improved markedly. So, I will just keep the imipenem for another day or so and see if she is able to eat. We will follow. She was admitted with leakage from the ileostomy tube, and has poor appetite, bilateral nephrostomy tube. Also her urine culture is now negative, so probably we can get rid of the antibiotic soon. Erlin Miranda MD
[2017-06-29] MEDS: Dextrose 5%/0.45% NS 1,000 ML IV SCH (07:13)
[2017-06-29 08:06] LABS: BASO % 0.2 % (0.0-2.0); EOS % 0.1 % (0.0-4.0); HEMATOCRIT 40.8 % (34.0-47.0); LYMPH # 2.3 K/uL (1.0-4.3); LYMPH % 19.8 % (20.0-40.0); MEAN CELL VOLUME 83.6 fL (81.0-99.0); MEAN CORPUSCULAR HEMOGLOBIN 28.2 pg (27.0-31.0); MEAN CORPUSCULAR HGB CONC 33.8 g/dL (33.0-37.0); MONO # 0.9 K/uL (0.0-0.8); MONO % 8.2 % (0.0-10.0); NRBC % 0.1 % (0.0-2.0); RED CELL DISTRIBUTION WIDTH 15.8 % (11.5-14.5); WHITE BLOOD COUNT 11.4 K/uL (4.8-10.8)
[2017-06-29 08:24] LABS: ALB/GLOB RATIO 0.4 (1.0-2.1); ALKALINE PHOSPHATASE 155 U/L (38-126); ALT/SGPT 129 U/L (9-52); AST/SGOT 147 U/L (14-36); BLOOD UREA NITROGEN 20 mg/dL (7-17); CALCIUM 7.5 mg/dl (8.6-10.4); CARBON DIOXIDE 26 mmol/L (22-30); CHLORIDE 95 mmol/L (98-107); GFR AFRICAN-AMERICAN > 60; GLUCOSE,RANDOM 110 mg/dL (65-105); POTASSIUM 3.5 mmol/L (3.6-5.2); SODIUM 124 mmol/L (132-148); TOTAL PROTEIN 6.5 g/dL (6.3-8.3)
[2017-06-29] MEDS: (Novolog) Insulin Aspart, Recombinant 100 u/ml 10 ml vial SC SCH ×2 (08:29→12:13)
[2017-06-29] MEDS: Enoxaparin 30 mg Syringe SC SCH (09:27)
[2017-06-29] MEDS: Lactobacillus Acidophilus 500 MU Cap PO SCH (09:32)
[2017-06-29] MEDS: (Novolog Mix 70/30) Insulin Aspart/Insulin Aspar 100 units/ml SC SCH (10:13)
--- NOTE | 2017-06-29 12:55 | CP.PCM.PN ---
<Rl Miles - Last Filed: 06/29/17 12:52> Subjective - Date & Time of Evaluation Date of Evaluation: 06/29/17 Time of Evaluation: 12:52 - Subjective Subjective: Progress note for Dr. Higgins's Service Patient seen and examined. She continues to have a poor appetite and nausea. Her ostomy bag has normal colored stool that appears loose. Objective - Vital Signs/Intake and Output Vital Signs (last 24 hours): Temp Pulse Resp BP Pulse Ox 98 F 110 H 19 136/72 98 06/29/17 08:19 06/29/17 08:19 06/29/17 08:19 06/29/17 08:19 06/29/17 08:19 Intake and Output: 06/29/17 06/29/17 06:59 18:59 Intake Total 600 570 Output Total 500 250 Balance 100 320 - Medications Medications: Current Medications Acetaminophen (Tylenol 325mg Tab) 650 mg PO Q4 PRN PRN Reason: Pain, Mild (1-3) Last Admin: 06/27/17 23:58 Dose: 650 mg Ascorbic Acid (Vitamin C 500 Mg Tab) 500 mg PO DAILY [facility] Last Admin: 06/29/17 09:35 Dose: 500 mg Dronabinol (Marinol) 5 mg PO BID [facility] Last Admin: 06/29/17 09:26 Dose: 5 mg Enoxaparin Sodium (Lovenox) 30 mg SC DAILY [facility] Last Admin: 06/29/17 09:27 Dose: 30 mg Dextrose/Sodium Chloride (Dextrose 5%/0.45% Ns 1000 Ml) 1,000 mls @ 50 mls/hr IV .Q20H [facility] Last Admin: 06/29/17 07:13 Dose: 50 mls/hr Fluconazole (Diflucan Iv 100 Mg/50 Ml Ns) 50 mls @ 100 mls/hr IVPB Q24H [facility] Last Admin: 06/28/17 13:40 Dose: 100 mls/hr Imipenem/Cilastatin Sodium 500 (mg/ Sodium Chloride) 100 mls @ 100 mls/hr IV Q8H [facility] Last Admin: 06/29/17 06:00 Dose: 100 mls/hr Insulin Aspart (Novolog) 0 unit SC ACHS [facility] PRN Reason: Protocol Last Admin: 06/29/17 12:13 Dose: Not Given Insulin Aspart (Novolog Mix 70/30 (70/30 Units/Ml)) 10 units SC BID [facility] Last Admin: 06/29/17 10:13 Dose: Not Given Lactobacillus Acidophilus (Bacid Acidophilus) 1 cap PO DAILY [facility] Last Admin: 06/29/17 09:32 Dose: 1 cap Magnesium Hydroxide (Milk Of Magnesia) 30 ml PO DAILY PRN PRN Reason: Constipation Mupirocin (Bactroban Ointment) 0 gm TOP DAILY [facility] Last Admin: 06/29/17 09:36 Dose: 1 applic Ondansetron HCl (Zofran Inj) 4 mg IVP Q6 PRN PRN Reason: Nausea/Vomiting Last Admin: 06/28/17 18:51 Dose: 4 mg Pantoprazole Sodium (Protonix Inj) 40 mg IVP DAILY [facility] Last Admin: 06/29/17 09:29 Dose: 40 mg - Labs Labs: 06/29/17 07:53 06/29/17 07:53 PT 11.3 SECONDS (9.7-12.2) 06/20/17 14:44 INR 1.0 06/20/17 14:44 APTT 33 SECONDS (21-34) 06/20/17 14:44 - Constitutional Appears: No Acute Distress, Cachectic - Head Exam Head Exam: ATRAUMATIC - Eye Exam Eye Exam: EOMI - Respiratory Exam Respiratory Exam: Clear to Ausculation Bilateral - Cardiovascular Exam Cardiovascular Exam: +S1, +S2 - GI/Abdominal Exam GI & Abdominal Exam: Soft Additional comments: ostomy site on right appears erythematous - Exam Additional comments: b/l nephrostomy tubes - Extremities Exam Extremities Exam: absent: Pedal Edema - Neurological Exam Neurological Exam: Alert, Awake - Skin Skin Exam: Dry, Warm Assessment and Plan - Assessment and Plan (Free Text) Plan: Cellulitis ID, Dr. Miranda- recs appreciated continue IV antibiotics: Imipenem/Cilastatin, Fluconazole Tigecyclin d/c on 06/28 continue mupirocin topical ointment White count reduced to 11.4 Afebrile Blood Cx: NGTD Transaminitis- Improving AST/ALT: 147/129 continue to monitor Poor appetite/ malnutrition continue marinol pureed diet continue zofran prn for nausea continue D5 1/2 NS @ 50cc/h continue ascorbic acid 500mg daily History colovesicular fistula following hysterectomy pt developed fistula which was resected at [facility] [place] pt has had b/l nephrostomy tubes placed due to complications from surgery Diabetes continue ISS continue novolog 70/30 10u BID Electrolyte imbalance continue to monitor and replete as necessary hyponatremia improved from yesterday 121->124 Prophylaxis continue lovenox 30mg sc daily continue protonix 40mg IV daily Case discussed with Dr. Higgins All management as per Dr. Higgins <Tonya Higgins - Last Filed: 07/05/17 13:06> Objective - Vital Signs/Intake and Output Vital Signs (last 24 hours): Temp Pulse Resp BP Pulse Ox 97.7 F 114 H 20 98/72 L 100 07/05/17 07:19 07/05/17 07:19 07/05/17 07:19 07/05/17 07:19 07/05/17 07:19 Intake and Output: 07/05/17 07/05/17 06:59 18:59 Intake Total 1380 Output Total 1715 Balance -335 - Medications Medications: Current Medications Acetaminophen (Tylenol 325mg Tab) 650 mg PO Q4 PRN PRN Reason: Pain, Mild (1-3) Last Admin: 07/03/17 11:06 Dose: 650 mg Ascorbic Acid (Vitamin C 500 Mg Tab) 500 mg PO DAILY [facility] Last Admin: 07/05/17 09:30 Dose: 500 mg Dronabinol (Marinol) 5 mg PO BID [facility] Last Admin: 07/05/17 09:30 Dose: 5 mg Enoxaparin Sodium (Lovenox) 30 mg SC DAILY [facility] Last Admin: 07/05/17 09:30 Dose: 30 mg Hydromorphone HCl (Dilaudid) 0.5 mg IVP Q8 PRN PRN Reason: Pain, severe (8-10) Last Admin: 07/05/17 09:52 Dose: 0.5 mg Dextrose/Sodium Chloride (Dextrose 5%/0.9% Ns 1000 Ml) 1,000 mls @ 75 mls/hr IV .[id number] [facility] Last Admin: 07/05/17 01:47 Dose: 75 mls/hr Insulin Aspart (Novolog) 0 unit SC ACHS [facility] PRN Reason: Protocol Last Admin: 07/05/17 12:01 Dose: 2 unit Lactobacillus Acidophilus (Bacid Acidophilus) 1 cap PO BID [facility] Last Admin: 07/05/17 09:30 Dose: 1 cap Lidocaine HCl (Xylocaine 2%) 0 ea TOP Q12 [facility] Last Admin: 07/05/17 13:01 Dose: Not Given Magnesium Hydroxide (Milk Of Magnesia) 30 ml PO DAILY PRN PRN Reason: Constipation Metoclopramide HCl (Reglan) 10 mg IVP ACHS PRN PRN Reason: Nausea/Vomiting Mupirocin (Bactroban Ointment) 0 gm TOP DAILY [facility] Last Admin: 07/05/17 09:32 Dose: 1 applic Nystatin (Nystop Topical Powder) 1 applic TOP BID PRN PRN Reason: Rash Last Admin: 07/02/17 13:37 Dose: 1 applic Ondansetron HCl (Zofran Inj) 4 mg IVP Q6 PRN PRN Reason: Nausea/Vomiting Last Admin: 07/03/17 11:05 Dose: 4 mg Pantoprazole Sodium (Protonix Inj) 40 mg IVP DAILY [facility] Last Admin: 07/05/17 09:30 Dose: 40 mg Petrolatum (Desitin Original) 1 gm TOP TID [facility] Last Admin: 07/05/17 09:32 Dose: 1 applic Potassium Chloride (Potassium Chloride Oral Soln) 10 meq PO 0800 [facility] Last Admin: 07/05/17 08:01 Dose: Not Given - Labs Labs: 07/05/17 06:08 07/05/17 06:08 PT 11.3 SECONDS (9.7-12.2) 06/20/17 14:44 INR 1.0 06/20/17 14:44 APTT 33 SECONDS (21-34) 06/20/17 14:44 Assessment and Plan (1) Abdominal wall pain Status: Acute (2) Ileostomy care Status: Acute (3) Colonic fistula Status: Acute (4) Dehydration Status: Acute (5) Displacement of Mckeon catheter Status: Acute (6) Ileostomy bag changed Status: Acute (7) Urinary tract infection Status: Acute Attending/Attestation - Attestation I have personally seen and examined this patient.: Yes I have fully participated in the care of the patient.: Yes I have reviewed all pertinent clinical information, including history, physical exam and plan: Yes Notes (Text): Patient examined. Patient is feeling nauseated. Her ileostomy site is clean & stools are well formed, brown. Continue antibiotics. Continue supportive care.
[2017-06-29] MEDS: Fluconazole IV 100mg/50 ml NS 50 ML IVPB SCH (14:27)
--- NOTE | 2017-06-29 16:35 | CP.PCM.PN ---
Subjective - Date & Time of Evaluation Date of Evaluation: 06/29/17 Time of Evaluation: 07:00 - Subjective Subjective: clinically same Objective - Vital Signs/Intake and Output Vital Signs (last 24 hours): Temp Pulse Resp BP Pulse Ox 98 F 110 H 19 136/72 98 06/29/17 08:19 06/29/17 08:19 06/29/17 08:19 06/29/17 08:19 06/29/17 08:19 Intake and Output: 06/29/17 06/29/17 06:59 18:59 Intake Total 600 1170 Output Total 500 850 Balance 100 320 - Medications Medications: Current Medications Acetaminophen (Tylenol 325mg Tab) 650 mg PO Q4 PRN PRN Reason: Pain, Mild (1-3) Last Admin: 06/27/17 23:58 Dose: 650 mg Ascorbic Acid (Vitamin C 500 Mg Tab) 500 mg PO DAILY [facility] Last Admin: 06/29/17 09:35 Dose: 500 mg Dronabinol (Marinol) 5 mg PO BID [facility] Last Admin: 06/29/17 09:26 Dose: 5 mg Enoxaparin Sodium (Lovenox) 30 mg SC DAILY [facility] Last Admin: 06/29/17 09:27 Dose: 30 mg Dextrose/Sodium Chloride (Dextrose 5%/0.45% Ns 1000 Ml) 1,000 mls @ 50 mls/hr IV .Q20H [facility] Last Admin: 06/29/17 07:13 Dose: 50 mls/hr Fluconazole (Diflucan Iv 100 Mg/50 Ml Ns) 50 mls @ 100 mls/hr IVPB Q24H [facility] Last Admin: 06/29/17 14:27 Dose: 100 mls/hr Imipenem/Cilastatin Sodium 500 (mg/ Sodium Chloride) 100 mls @ 100 mls/hr IV Q8H [facility] Last Admin: 06/29/17 13:27 Dose: 100 mls/hr Insulin Aspart (Novolog) 0 unit SC ACHS [facility] PRN Reason: Protocol Last Admin: 06/29/17 12:13 Dose: Not Given Insulin Aspart (Novolog Mix 70/30 (70/30 Units/Ml)) 10 units SC BID [facility] Last Admin: 06/29/17 10:13 Dose: Not Given Lactobacillus Acidophilus (Bacid Acidophilus) 1 cap PO DAILY [facility] Last Admin: 06/29/17 09:32 Dose: 1 cap Magnesium Hydroxide (Milk Of Magnesia) 30 ml PO DAILY PRN PRN Reason: Constipation Mupirocin (Bactroban Ointment) 0 gm TOP DAILY [facility] Last Admin: 06/29/17 09:36 Dose: 1 applic Ondansetron HCl (Zofran Inj) 4 mg IVP Q6 PRN PRN Reason: Nausea/Vomiting Last Admin: 06/28/17 18:51 Dose: 4 mg Pantoprazole Sodium (Protonix Inj) 40 mg IVP DAILY [facility] Last Admin: 06/29/17 09:29 Dose: 40 mg - Labs Labs: 06/29/17 07:53 06/29/17 07:53 PT 11.3 SECONDS (9.7-12.2) 06/20/17 14:44 INR 1.0 06/20/17 14:44 APTT 33 SECONDS (21-34) 06/20/17 14:44 - Constitutional Appears: Well - Head Exam Head Exam: ATRAUMATIC, NORMAL INSPECTION, NORMOCEPHALIC - Eye Exam Eye Exam: EOMI, Normal appearance, PERRL Pupil Exam: NORMAL ACCOMODATION, PERRL - ENT Exam ENT Exam: Mucous Membranes Moist, Normal Exam - Neck Exam Neck Exam: Full ROM, Normal Inspection. absent: Lymphadenopathy - Respiratory Exam Respiratory Exam: Decreased Breath Sounds - Cardiovascular Exam Cardiovascular Exam: REGULAR RHYTHM, +S1, +S2 - GI/Abdominal Exam GI & Abdominal Exam: Diminished Bowel Sounds - Rectal Exam Rectal Exam: Deferred Assessment and Plan (1) Abdominal wall pain Status: Acute (2) Ileostomy care Status: Acute (3) Colonic fistula Status: Acute (4) Dehydration Status: Acute (5) Displacement of Mckeon catheter Status: Acute (6) Ileostomy bag changed Status: Acute (7) Urinary tract infection Status: Acute - Assessment and Plan (Free Text) Plan: Patient examined. Patient is feeling better. Patient is still nauseous but better than morning. Continue antibiotics & supportive care.
--- NOTE | 2017-06-29 21:10 | CP.PCM.PN ---
Subjective - Date & Time of Evaluation Date of Evaluation: 06/29/17 Time of Evaluation: 05:00 - Subjective Subjective: Dictated Objective - Vital Signs/Intake and Output Vital Signs (last 24 hours): Temp Pulse Resp BP Pulse Ox 98.5 F 102 H 18 128/80 100 06/29/17 15:00 06/29/17 15:00 06/29/17 15:00 06/29/17 15:00 06/29/17 15:00 Intake and Output: 06/29/17 06/30/17 18:59 06:59 Intake Total 1170 Output Total 850 Balance 320 - Medications Medications: Current Medications Acetaminophen (Tylenol 325mg Tab) 650 mg PO Q4 PRN PRN Reason: Pain, Mild (1-3) Last Admin: 06/27/17 23:58 Dose: 650 mg Ascorbic Acid (Vitamin C 500 Mg Tab) 500 mg PO DAILY [facility] Last Admin: 06/29/17 09:35 Dose: 500 mg Dronabinol (Marinol) 5 mg PO BID [facility] Last Admin: 06/29/17 17:49 Dose: 5 mg Enoxaparin Sodium (Lovenox) 30 mg SC DAILY [facility] Last Admin: 06/29/17 09:27 Dose: 30 mg Dextrose/Sodium Chloride (Dextrose 5%/0.45% Ns 1000 Ml) 1,000 mls @ 50 mls/hr IV .Q20H [facility] Last Admin: 06/29/17 07:13 Dose: 50 mls/hr Fluconazole (Diflucan Iv 100 Mg/50 Ml Ns) 50 mls @ 100 mls/hr IVPB Q24H [facility] Last Admin: 06/29/17 14:27 Dose: 100 mls/hr Imipenem/Cilastatin Sodium 500 (mg/ Sodium Chloride) 100 mls @ 100 mls/hr IV Q8H [facility] Last Admin: 06/29/17 13:27 Dose: 100 mls/hr Insulin Aspart (Novolog) 0 unit SC ACHS [facility] PRN Reason: Protocol Last Admin: 06/29/17 12:13 Dose: Not Given Insulin Aspart (Novolog Mix 70/30 (70/30 Units/Ml)) 10 units SC BID [facility] Last Admin: 06/29/17 10:13 Dose: Not Given Lactobacillus Acidophilus (Bacid Acidophilus) 1 cap PO DAILY [facility] Last Admin: 06/29/17 09:32 Dose: 1 cap Magnesium Hydroxide (Milk Of Magnesia) 30 ml PO DAILY PRN PRN Reason: Constipation Mupirocin (Bactroban Ointment) 0 gm TOP DAILY [facility] Last Admin: 06/29/17 09:36 Dose: 1 applic Ondansetron HCl (Zofran Inj) 4 mg IVP Q6 PRN PRN Reason: Nausea/Vomiting Last Admin: 06/28/17 18:51 Dose: 4 mg Pantoprazole Sodium (Protonix Inj) 40 mg IVP DAILY [facility] Last Admin: 06/29/17 09:29 Dose: 40 mg Potassium Chloride (Klor-Con 10) 10 meq PO 0800 [facility] - Labs Labs: 06/29/17 07:53 06/29/17 07:53 PT 11.3 SECONDS (9.7-12.2) 06/20/17 14:44 INR 1.0 06/20/17 14:44 APTT 33 SECONDS (21-34) 06/20/17 14:44
--- NOTE | 2017-06-29 21:30 | PN ---
SUBJECTIVE: She says she ate something today, but she does not feel like. She did not have any vomiting today. Her last vomiting was yesterday. She seems slightly better. PHYSICAL EXAMINATION: VITAL SIGNS: Her vitals show T-max is 98.5, pulse of 102, blood pressure 128/80, respirations are 18. HEENT: Head is atraumatic, normocephalic. She is very frail. NECK: Supple. LUNGS: Clear. HEART: S1, S2 is tachycardic. ABDOMEN: Remains with some areas they have put clear dressing from the leak, but dermatitis is improving. EXTREMITIES: Have no edema. She has bilateral nephrostomy tubes. LABORATORY DATA: Labs are noted. Labs show white count is 11.4, hemoglobin 13.8, hematocrit 40.8, platelet count is 194. ASSESSMENT AND PLAN: She has been on the antibiotics since 06/20/2017 when she came and tomorrow will be 10 days of antibiotics, I think. She is stable. She should go back tomorrow to the rehab and needs to be monitored. The repeat urine cultures are negative. She does have bilateral nephrostomy tubes and she has a colostomy. Erlin Miranda MD
[2017-06-30] MEDS: Dextrose 5%/0.45% NS 1,000 ML IV SCH (01:37)
[2017-06-30] MEDS ORDERED: Potassium Chloride 10 mEq ER Tab PO SCH (08:00)
[2017-06-30] MEDS ORDERED: Dextrose 5%/0.9% NS 1,000 ML IV ONE (08:06)
[2017-06-30 08:13] LABS: BASO % 0.2 % (0.0-2.0); EOS # 0.1 K/uL (0.0-0.7); EOS % 1.7 % (0.0-4.0); HEMATOCRIT 36.9 % (34.0-47.0); LYMPH % 26.8 % (20.0-40.0); MEAN CELL VOLUME 83.5 fL (81.0-99.0); MEAN CORPUSCULAR HEMOGLOBIN 28.6 pg (27.0-31.0); MEAN CORPUSCULAR HGB CONC 34.2 g/dL (33.0-37.0); MEAN PLATELET VOLUME 8.9 fL (7.2-11.7); MONO # 0.7 K/uL (0.0-0.8); MONO % 8.9 % (0.0-10.0); NRBC % 0.2 % (0.0-2.0); RED CELL DISTRIBUTION WIDTH 15.5 % (11.5-14.5); WHITE BLOOD COUNT 7.3 K/uL (4.8-10.8)
[2017-06-30 08:35] LABS: ALB/GLOB RATIO 0.4 (1.0-2.1); ALKALINE PHOSPHATASE 144 U/L (38-126); ALT/SGPT 94 U/L (9-52); AST/SGOT 117 U/L (14-36); BLOOD UREA NITROGEN 10 mg/dL (7-17); CALCIUM 7.5 mg/dl (8.6-10.4); CARBON DIOXIDE 25 mmol/L (22-30); CHLORIDE 98 mmol/L (98-107); GFR AFRICAN-AMERICAN > 60; GLUCOSE,RANDOM 121 mg/dL (65-105); POTASSIUM 3.2 mmol/L (3.6-5.2); SODIUM 126 mmol/L (132-148); TOTAL PROTEIN 6.3 g/dL (6.3-8.3)
[2017-06-30] MEDS: (Novolog) Insulin Aspart, Recombinant 100 u/ml 10 ml vial SC SCH ×4 (09:41→21:40)
[2017-06-30] MEDS: (Novolog Mix 70/30) Insulin Aspart/Insulin Aspar 100 units/ml SC SCH ×2 (09:41→18:35)
--- NOTE | 2017-06-30 09:43 | CP.PCM.PN ---
Subjective - Date & Time of Evaluation Date of Evaluation: 06/30/17 Time of Evaluation: 09:42 - Subjective Subjective: PGY2 medicine progress note for Dr. Higgins's service Patient seen and examined. Patient still with poor oral intake and episodes of non-bloody vomiting. Objective - Vital Signs/Intake and Output Vital Signs (last 24 hours): Temp Pulse Resp BP Pulse Ox 98 F 107 H 20 120/77 98 06/30/17 07:55 06/30/17 07:55 06/30/17 07:55 06/30/17 07:55 06/30/17 07:55 Intake and Output: 06/30/17 06/30/17 06:59 18:59 Intake Total 1120 Output Total 1600 Balance -480 - Medications Medications: Current Medications Acetaminophen (Tylenol 325mg Tab) 650 mg PO Q4 PRN PRN Reason: Pain, Mild (1-3) Last Admin: 06/27/17 23:58 Dose: 650 mg Ascorbic Acid (Vitamin C 500 Mg Tab) 500 mg PO DAILY [facility] Last Admin: 06/30/17 09:38 Dose: 500 mg Dronabinol (Marinol) 5 mg PO BID [facility] Last Admin: 06/30/17 09:37 Dose: 5 mg Enoxaparin Sodium (Lovenox) 30 mg SC DAILY [facility] Last Admin: 06/29/17 09:27 Dose: 30 mg Fluconazole (Diflucan Iv 100 Mg/50 Ml Ns) 50 mls @ 100 mls/hr IVPB Q24H [facility] Last Admin: 06/29/17 14:27 Dose: 100 mls/hr Imipenem/Cilastatin Sodium 500 (mg/ Sodium Chloride) 100 mls @ 100 mls/hr IV Q8H [facility] Last Admin: 06/30/17 05:31 Dose: 100 mls/hr Dextrose/Sodium Chloride (Dextrose 5%/0.9% Ns 1000 Ml) 1,000 mls @ 70 mls/hr IV .[id number] ONE Stop: 06/30/17 22:23 Last Admin: 06/30/17 09:35 Dose: 70 mls/hr Insulin Aspart (Novolog) 0 unit SC ACHS [facility] PRN Reason: Protocol Last Admin: 06/30/17 09:41 Dose: Not Given Insulin Aspart (Novolog Mix 70/30 (70/30 Units/Ml)) 10 units SC BID [facility] Last Admin: 06/30/17 09:41 Dose: Not Given Lactobacillus Acidophilus (Bacid Acidophilus) 1 cap PO DAILY [facility] Last Admin: 06/29/17 09:32 Dose: 1 cap Magnesium Hydroxide (Milk Of Magnesia) 30 ml PO DAILY PRN PRN Reason: Constipation Mupirocin (Bactroban Ointment) 0 gm TOP DAILY [facility] Last Admin: 06/30/17 09:36 Dose: 1 applic Ondansetron HCl (Zofran Inj) 4 mg IVP Q6 PRN PRN Reason: Nausea/Vomiting Last Admin: 06/28/17 18:51 Dose: 4 mg Pantoprazole Sodium (Protonix Inj) 40 mg IVP DAILY [facility] Last Admin: 06/30/17 09:40 Dose: 40 mg Potassium Chloride (Klor-Con 10) 10 meq PO 0800 [facility] Last Admin: 06/30/17 08:38 Dose: 10 meq - Labs Labs: 06/30/17 08:02 06/30/17 08:02 PT 11.3 SECONDS (9.7-12.2) 06/20/17 14:44 INR 1.0 06/20/17 14:44 APTT 33 SECONDS (21-34) 06/20/17 14:44 - Constitutional Appears: Cachectic, Chronically Ill - Head Exam Head Exam: ATRAUMATIC - Eye Exam Eye Exam: EOMI - ENT Exam ENT Exam: Mucous Membranes Dry - Respiratory Exam Respiratory Exam: Clear to Ausculation Bilateral - Cardiovascular Exam Cardiovascular Exam: +S1, +S2 - GI/Abdominal Exam GI & Abdominal Exam: Soft Additional comments: right side colostomy with soft brown stool - Exam Additional comments: b/l nephrostomy tubes, clear/ yellow urine - Extremities Exam Extremities Exam: Normal Inspection - Neurological Exam Neurological Exam: Alert, Awake - Skin Skin Exam: Warm Assessment and Plan - Assessment and Plan (Free Text) Assessment: Cellulitis ID, Dr. Miranda- nanette appreciated continue IV antibiotics: Imipenem/Cilastatin, Fluconazole Tigecyclin d/c on 06/28 continue mupirocin topical ointment 06/29/17White count reduced to 11.4 06/30/17 WBC 7.3 Afebrile Blood Cx: no growth after 5 days Transaminitis- Improving AST/ALT: 117/94 continue to monitor Poor appetite/ malnutrition continue marinol pureed diet continue zofran prn for nausea continue D5 NS @ 70cc/h continue ascorbic acid 500mg daily History colovesicular fistula following hysterectomy pt developed fistula which [place] [facility] [place] has had b/l nephrostomy tubes placed due to complications from surgery Diabetes continue ISS continue novolog 70/30 10u BID Electrolyte imbalance continue to monitor and replete as necessary hyponatremia improved from yesterday 121->124->126 Prophylaxis continue lovenox 30mg sc daily continue protonix 40mg IV daily Case discussed with Dr. Higgins All management as per Dr. Higgins
[2017-06-30] MEDS: Lactobacillus Acidophilus 500 MU Cap PO SCH (10:35)
[2017-06-30] MEDS: Enoxaparin 30 mg Syringe SC SCH (10:43)
[2017-06-30] MEDS ORDERED: Potassium Chloride 20 mEq/15 ml LIQ UD PO ONE (11:18)
[2017-06-30] MEDS: Fluconazole IV 100mg/50 ml NS 50 ML IVPB SCH (14:04)
--- NOTE | 2017-06-30 17:30 | CP.PCM.PN ---
Subjective - Date & Time of Evaluation Date of Evaluation: 06/20/17 Time of Evaluation: 03:00 - Subjective Subjective: dictated Objective - Vital Signs/Intake and Output Vital Signs (last 24 hours): Temp Pulse Resp BP Pulse Ox 97.5 F L 102 H 20 117/75 100 06/30/17 15:00 06/30/17 15:00 06/30/17 15:00 06/30/17 15:00 06/30/17 15:00 Intake and Output: 06/30/17 06/30/17 06:59 18:59 Intake Total 1120 760 Output Total 1600 1700 Balance -480 -940 - Medications Medications: Current Medications Acetaminophen (Tylenol 325mg Tab) 650 mg PO Q4 PRN PRN Reason: Pain, Mild (1-3) Last Admin: 06/27/17 23:58 Dose: 650 mg Ascorbic Acid (Vitamin C 500 Mg Tab) 500 mg PO DAILY [facility] Last Admin: 06/30/17 09:38 Dose: 500 mg Dronabinol (Marinol) 5 mg PO BID [facility] Last Admin: 06/30/17 09:37 Dose: 5 mg Enoxaparin Sodium (Lovenox) 30 mg SC DAILY [facility] Last Admin: 06/30/17 10:43 Dose: 30 mg Fluconazole (Diflucan Iv 100 Mg/50 Ml Ns) 50 mls @ 100 mls/hr IVPB Q24H [facility] Last Admin: 06/30/17 14:04 Dose: 100 mls/hr Imipenem/Cilastatin Sodium 500 (mg/ Sodium Chloride) 100 mls @ 100 mls/hr IV Q8H [facility] Last Admin: 06/30/17 14:04 Dose: 100 mls/hr Dextrose/Sodium Chloride (Dextrose 5%/0.9% Ns 1000 Ml) 1,000 mls @ 70 mls/hr IV .[id number] ONE Stop: 06/30/17 22:23 Last Admin: 06/30/17 09:35 Dose: 70 mls/hr Insulin Aspart (Novolog) 0 unit SC ACHS [facility] PRN Reason: Protocol Last Admin: 06/30/17 12:43 Dose: Not Given Insulin Aspart (Novolog Mix 70/30 (70/30 Units/Ml)) 10 units SC BID [facility] Last Admin: 06/30/17 09:41 Dose: Not Given Lactobacillus Acidophilus (Bacid Acidophilus) 1 cap PO DAILY [facility] Last Admin: 06/30/17 10:35 Dose: 1 cap Magnesium Hydroxide (Milk Of Magnesia) 30 ml PO DAILY PRN PRN Reason: Constipation Mupirocin (Bactroban Ointment) 0 gm TOP DAILY [facility] Last Admin: 06/30/17 09:36 Dose: 1 applic Ondansetron HCl (Zofran Inj) 4 mg IVP Q6 PRN PRN Reason: Nausea/Vomiting Last Admin: 06/28/17 18:51 Dose: 4 mg Pantoprazole Sodium (Protonix Inj) 40 mg IVP DAILY [facility] Last Admin: 06/30/17 09:40 Dose: 40 mg Potassium Chloride (Klor-Con 10) 10 meq PO 0800 [facility] Last Admin: 06/30/17 08:38 Dose: 10 meq - Labs Labs: 06/30/17 08:02 06/30/17 08:02 PT 11.3 SECONDS (9.7-12.2) 06/20/17 14:44 INR 1.0 06/20/17 14:44 APTT 33 SECONDS (21-34) 06/20/17 14:44
[2017-06-30] MEDS ORDERED: Potassium Chloride 20 mEq ER Tab PO STA (18:18)
[2017-06-30] MEDS ORDERED: Potassium Chloride 20 mEq/15 ml LIQ UD PO STA (18:40)
--- NOTE | 2017-06-30 21:19 | CP.PCM.PN ---
Subjective - Date & Time of Evaluation Date of Evaluation: 06/30/17 Time of Evaluation: 07:00 - Subjective Subjective: clinically same Objective - Vital Signs/Intake and Output Vital Signs (last 24 hours): Temp Pulse Resp BP Pulse Ox 97.5 F L 102 H 20 117/75 100 06/30/17 15:00 06/30/17 15:00 06/30/17 15:00 06/30/17 15:00 06/30/17 15:00 Intake and Output: 06/30/17 07/01/17 18:59 06:59 Intake Total 760 Output Total 1700 Balance -940 - Medications Medications: Current Medications Acetaminophen (Tylenol 325mg Tab) 650 mg PO Q4 PRN PRN Reason: Pain, Mild (1-3) Last Admin: 06/27/17 23:58 Dose: 650 mg Ascorbic Acid (Vitamin C 500 Mg Tab) 500 mg PO DAILY [facility] Last Admin: 06/30/17 09:38 Dose: 500 mg Dronabinol (Marinol) 5 mg PO BID [facility] Last Admin: 06/30/17 18:34 Dose: 5 mg Enoxaparin Sodium (Lovenox) 30 mg SC DAILY [facility] Last Admin: 06/30/17 10:43 Dose: 30 mg Fluconazole (Diflucan Iv 100 Mg/50 Ml Ns) 50 mls @ 100 mls/hr IVPB Q24H [facility] Last Admin: 06/30/17 14:04 Dose: 100 mls/hr Imipenem/Cilastatin Sodium 500 (mg/ Sodium Chloride) 100 mls @ 100 mls/hr IV Q8H [facility] Last Admin: 06/30/17 14:04 Dose: 100 mls/hr Dextrose/Sodium Chloride (Dextrose 5%/0.9% Ns 1000 Ml) 1,000 mls @ 70 mls/hr IV .[id number] ONE Stop: 06/30/17 22:23 Last Admin: 06/30/17 09:35 Dose: 70 mls/hr Insulin Aspart (Novolog) 0 unit SC ACHS [facility] PRN Reason: Protocol Last Admin: 06/30/17 18:35 Dose: Not Given Insulin Aspart (Novolog Mix 70/30 (70/30 Units/Ml)) 10 units SC BID [facility] Last Admin: 06/30/17 18:35 Dose: Not Given Lactobacillus Acidophilus (Bacid Acidophilus) 1 cap PO DAILY [facility] Last Admin: 06/30/17 10:35 Dose: 1 cap Magnesium Hydroxide (Milk Of Magnesia) 30 ml PO DAILY PRN PRN Reason: Constipation Mupirocin (Bactroban Ointment) 0 gm TOP DAILY [facility] Last Admin: 06/30/17 09:36 Dose: 1 applic Ondansetron HCl (Zofran Inj) 4 mg IVP Q6 PRN PRN Reason: Nausea/Vomiting Last Admin: 06/28/17 18:51 Dose: 4 mg Pantoprazole Sodium (Protonix Inj) 40 mg IVP DAILY [facility] Last Admin: 06/30/17 09:40 Dose: 40 mg Potassium Chloride (Potassium Chloride Oral Soln) 10 meq PO 0800 [facility] - Labs Labs: 06/30/17 08:02 06/30/17 08:02 PT 11.3 SECONDS (9.7-12.2) 06/20/17 14:44 INR 1.0 06/20/17 14:44 APTT 33 SECONDS (21-34) 06/20/17 14:44 - Constitutional Appears: Well - Head Exam Head Exam: ATRAUMATIC, NORMAL INSPECTION, NORMOCEPHALIC - Eye Exam Eye Exam: EOMI, Normal appearance, PERRL Pupil Exam: NORMAL ACCOMODATION, PERRL - ENT Exam ENT Exam: Mucous Membranes Moist, Normal Exam - Neck Exam Neck Exam: Full ROM, Normal Inspection. absent: Lymphadenopathy - Respiratory Exam Respiratory Exam: Clear to Ausculation Bilateral, NORMAL BREATHING PATTERN - Cardiovascular Exam Cardiovascular Exam: REGULAR RHYTHM, +S1, +S2. absent: Murmur - GI/Abdominal Exam GI & Abdominal Exam: Soft, Normal Bowel Sounds. absent: Tenderness - Rectal Exam Rectal Exam: Deferred Assessment and Plan (1) Abdominal wall pain Status: Acute (2) Ileostomy care Status: Acute (3) Colonic fistula Status: Acute (4) Dehydration Status: Acute (5) Displacement of Mckeon catheter Status: Acute (6) Ileostomy bag changed Status: Acute (7) Urinary tract infection Status: Acute - Assessment and Plan (Free Text) Plan: Patient examined. Patient is clinically better. NO nausea today. NO vomiting. Today's investigations show low potassium level @ 3.2. Coninue antibiotics imipenem/cilastatin, fluconazole. Continue suporitve care.
--- NOTE | 2017-07-01 00:39 | PN ---
DATE: SUBJECTIVE: The patient is feeling a little better. Her bag, however, leaked just now and she does not want to eat. Her , and it just seems that she does not want to be bothered, remains depressed, I guess, but she appears to be in no acute respiratory distress. PHYSICAL EXAMINATION: VITAL SIGNS: T-max is 98, pulse of 102, blood pressure 117/75, and respirations are 20. HEENT: Head is atraumatic, normocephalic. NECK: Supple. LUNGS: Clear. No crackles or rales present. HEART: S1 and S2, regular. ABDOMEN: Soft, nontender. No guarding or rigidity present. She has a colostomy bag and dermatitis is better. They just changed the dressing on one of the nephrostomy tubes. Also, she has bilateral nephrostomy tubes. PLAN: I would continue meropenem at this time. The urine culture is now negative. We will discontinue Diflucan if we gave it for 5 to 7 days; actually, we started it on , , 21, and , we will leave it on for three more days. We will follow as needed. The patient came in with dermatitis and leaking ileostomy tube and has bilateral nephrostomy tubes and remains with failure to thrive. Erlin Miranda MD
[2017-07-01 07:40] LABS: BASO % 0.3 % (0.0-2.0); EOS # 0.2 K/uL (0.0-0.7); EOS % 2.7 % (0.0-4.0); HEMATOCRIT 38.3 % (34.0-47.0); LYMPH # 2.4 K/uL (1.0-4.3); LYMPH % 28.6 % (20.0-40.0); MEAN CELL VOLUME 84.1 fL (81.0-99.0); MEAN CORPUSCULAR HEMOGLOBIN 28.2 pg (27.0-31.0); MEAN CORPUSCULAR HGB CONC 33.5 g/dL (33.0-37.0); MONO # 0.6 K/uL (0.0-0.8); MONO % 7.3 % (0.0-10.0); NRBC % 0.1 % (0.0-2.0); RED CELL DISTRIBUTION WIDTH 15.4 % (11.5-14.5); WHITE BLOOD COUNT 8.2 K/uL (4.8-10.8)
[2017-07-01 08:25] LABS: ALB/GLOB RATIO 0.5 (1.0-2.1); ALKALINE PHOSPHATASE 173 U/L (38-126); ALT/SGPT 100 U/L (9-52); AST/SGOT 147 U/L (14-36); BILIRUBIN,TOTAL 1.3 mg/dL (0.2-1.3); BLOOD UREA NITROGEN 10 mg/dL (7-17); CALCIUM 7.8 mg/dl (8.6-10.4); CARBON DIOXIDE 24 mmol/L (22-30); CHLORIDE 103 mmol/L (98-107); GFR AFRICAN-AMERICAN > 60; GLUCOSE,RANDOM 162 mg/dL (65-105); SODIUM 128 mmol/L (132-148); TOTAL PROTEIN 5.8 g/dL (6.3-8.3)
[2017-07-01] MEDS: Potassium Chloride 20 mEq/15 ml LIQ UD PO SCH (09:14)
[2017-07-01] MEDS: Enoxaparin 30 mg Syringe SC SCH (09:15)
[2017-07-01] MEDS: (Novolog) Insulin Aspart, Recombinant 100 u/ml 10 ml vial SC SCH ×4 (09:15→22:05)
[2017-07-01] MEDS: (Novolog Mix 70/30) Insulin Aspart/Insulin Aspar 100 units/ml SC SCH ×2 (09:16→18:55)
[2017-07-01] MEDS: Lactobacillus Acidophilus 500 MU Cap PO SCH (09:16)
[2017-07-01] MEDS: Fluconazole IV 100mg/50 ml NS 50 ML IVPB SCH (14:00)
--- NOTE | 2017-07-01 15:14 | CP.PCM.PN ---
Subjective - Date & Time of Evaluation Date of Evaluation: 07/01/17 Time of Evaluation: 07:00 - Subjective Subjective: clinically same Objective - Vital Signs/Intake and Output Vital Signs (last 24 hours): Temp Pulse Resp BP Pulse Ox 98.3 F 89 20 119/76 100 07/01/17 07:48 07/01/17 07:48 07/01/17 07:48 07/01/17 07:48 07/01/17 07:48 Intake and Output: 07/01/17 07/01/17 06:59 18:59 Intake Total 740 280 Output Total 750 850 Balance -10 -570 - Medications Medications: Current Medications Acetaminophen (Tylenol 325mg Tab) 650 mg PO Q4 PRN PRN Reason: Pain, Mild (1-3) Last Admin: 06/27/17 23:58 Dose: 650 mg Ascorbic Acid (Vitamin C 500 Mg Tab) 500 mg PO DAILY [facility] Last Admin: 07/01/17 09:17 Dose: 500 mg Dronabinol (Marinol) 5 mg PO BID [facility] Last Admin: 07/01/17 09:14 Dose: 5 mg Enoxaparin Sodium (Lovenox) 30 mg SC DAILY [facility] Last Admin: 07/01/17 09:15 Dose: 30 mg Fluconazole (Diflucan Iv 100 Mg/50 Ml Ns) 50 mls @ 100 mls/hr IVPB Q24H [facility] Last Admin: 06/30/17 14:04 Dose: 100 mls/hr Imipenem/Cilastatin Sodium 500 (mg/ Sodium Chloride) 100 mls @ 100 mls/hr IV Q8H [facility] Last Admin: 07/01/17 05:35 Dose: 100 mls/hr Insulin Aspart (Novolog) 0 unit SC ACHS [facility] PRN Reason: Protocol Last Admin: 07/01/17 09:15 Dose: Not Given Insulin Aspart (Novolog Mix 70/30 (70/30 Units/Ml)) 10 units SC BID [facility] Last Admin: 07/01/17 09:16 Dose: Not Given Lactobacillus Acidophilus (Bacid Acidophilus) 1 cap PO DAILY [facility] Last Admin: 07/01/17 09:16 Dose: 1 cap Magnesium Hydroxide (Milk Of Magnesia) 30 ml PO DAILY PRN PRN Reason: Constipation Mupirocin (Bactroban Ointment) 0 gm TOP DAILY [facility] Last Admin: 06/30/17 09:36 Dose: 1 applic Ondansetron HCl (Zofran Inj) 4 mg IVP Q6 PRN PRN Reason: Nausea/Vomiting Last Admin: 06/28/17 18:51 Dose: 4 mg Pantoprazole Sodium (Protonix Inj) 40 mg IVP DAILY [facility] Last Admin: 07/01/17 09:15 Dose: 40 mg Petrolatum (Desitin Original) 1 gm TOP TID [facility] Potassium Chloride (Potassium Chloride Oral Soln) 10 meq PO 0800 [facility] Last Admin: 07/01/17 09:14 Dose: 10 meq - Labs Labs: 07/01/17 07:15 07/01/17 07:15 PT 11.3 SECONDS (9.7-12.2) 06/20/17 14:44 INR 1.0 06/20/17 14:44 APTT 33 SECONDS (21-34) 06/20/17 14:44 - Constitutional Appears: Well - Head Exam Head Exam: ATRAUMATIC, NORMAL INSPECTION, NORMOCEPHALIC - Eye Exam Eye Exam: EOMI, Normal appearance, PERRL Pupil Exam: NORMAL ACCOMODATION, PERRL - ENT Exam ENT Exam: Mucous Membranes Moist, Normal Exam - Neck Exam Neck Exam: Full ROM, Normal Inspection. absent: Lymphadenopathy - Respiratory Exam Respiratory Exam: Decreased Breath Sounds - Cardiovascular Exam Cardiovascular Exam: REGULAR RHYTHM, +S1, +S2 - GI/Abdominal Exam GI & Abdominal Exam: Soft, Diminished Bowel Sounds - Rectal Exam Rectal Exam: Deferred Assessment and Plan (1) Abdominal wall pain Status: Acute (2) Ileostomy care Status: Acute (3) Colonic fistula Status: Acute (4) Dehydration Status: Acute (5) Displacement of Mckeon catheter Status: Acute (6) Ileostomy bag changed Status: Acute (7) Urinary tract infection Status: Acute - Assessment and Plan (Free Text) Plan: Patient examined. After potassium supplementation, today's K is 4.0. Patient is feeling better. Continue antibiotics & supportive care.
[2017-07-01] MEDS: Zinc Oxide Topical 30 gm Tube TOP SCH (18:55)
[2017-07-02] MEDS: (Novolog) Insulin Aspart, Recombinant 100 u/ml 10 ml vial SC SCH ×4 (07:42→21:32)
[2017-07-02 08:12] LABS: BASO % 0.5 % (0.0-2.0); EOS # 0.4 K/uL (0.0-0.7); EOS % 4.5 % (0.0-4.0); LYMPH # 2.7 K/uL (1.0-4.3); LYMPH % 33.4 % (20.0-40.0); MEAN CELL VOLUME 83.4 fL (81.0-99.0); MEAN CORPUSCULAR HEMOGLOBIN 28.3 pg (27.0-31.0); MEAN CORPUSCULAR HGB CONC 33.9 g/dL (33.0-37.0); MEAN PLATELET VOLUME 8.9 fL (7.2-11.7); MONO # 0.6 K/uL (0.0-0.8); NRBC % 0.1 % (0.0-2.0); RED CELL DISTRIBUTION WIDTH 15.2 % (11.5-14.5)
[2017-07-02 08:39] LABS: ALB/GLOB RATIO 0.5 (1.0-2.1); ALKALINE PHOSPHATASE 152 U/L (38-126); ALT/SGPT 76 U/L (9-52); AST/SGOT 80 U/L (14-36); BILIRUBIN,TOTAL 1.1 mg/dL (0.2-1.3); BLOOD UREA NITROGEN 12 mg/dL (7-17); CALCIUM 7.7 mg/dl (8.6-10.4); CARBON DIOXIDE 23 mmol/L (22-30); CHLORIDE 102 mmol/L (98-107); GFR AFRICAN-AMERICAN > 60; GLUCOSE,RANDOM 84 mg/dL (65-105); POTASSIUM 4.3 mmol/L (3.6-5.2); SODIUM 126 mmol/L (132-148); TOTAL PROTEIN 5.9 g/dL (6.3-8.3)
[2017-07-02] MEDS: Potassium Chloride 20 mEq/15 ml LIQ UD PO SCH ×2 (08:44→09:34)
[2017-07-02] MEDS: Enoxaparin 30 mg Syringe SC SCH (09:26)
[2017-07-02] MEDS: Lactobacillus Acidophilus 500 MU Cap PO SCH (09:27)
[2017-07-02] MEDS: Zinc Oxide Topical 30 gm Tube TOP SCH ×3 (09:27→17:42)
[2017-07-02] MEDS: (Novolog Mix 70/30) Insulin Aspart/Insulin Aspar 100 units/ml SC SCH ×2 (12:15→18:00)
[2017-07-02] MEDS: Fluconazole IV 100mg/50 ml NS 50 ML IVPB SCH (13:37)
--- NOTE | 2017-07-02 17:33 | CP.PCM.PN ---
Subjective - Date & Time of Evaluation Date of Evaluation: 07/02/17 Time of Evaluation: 07:00 - Subjective Subjective: clinically same Objective - Vital Signs/Intake and Output Vital Signs (last 24 hours): Temp Pulse Resp BP Pulse Ox 97.8 F 90 20 100/60 99 07/02/17 17:02 07/02/17 17:02 07/02/17 15:00 07/02/17 17:02 07/02/17 15:00 Intake and Output: 07/02/17 07/02/17 06:59 18:59 Intake Total 350 750 Output Total 350 250 Balance 0 500 - Medications Medications: Current Medications Acetaminophen (Tylenol 325mg Tab) 650 mg PO Q4 PRN PRN Reason: Pain, Mild (1-3) Last Admin: 07/02/17 00:58 Dose: 650 mg Ascorbic Acid (Vitamin C 500 Mg Tab) 500 mg PO DAILY [facility] Last Admin: 07/02/17 09:29 Dose: 500 mg Dronabinol (Marinol) 5 mg PO BID [facility] Last Admin: 07/02/17 09:26 Dose: 5 mg Enoxaparin Sodium (Lovenox) 30 mg SC DAILY [facility] Last Admin: 07/02/17 09:26 Dose: 30 mg Fluconazole (Diflucan Iv 100 Mg/50 Ml Ns) 50 mls @ 100 mls/hr IVPB Q24H [facility] Last Admin: 07/02/17 13:37 Dose: 100 mls/hr Imipenem/Cilastatin Sodium 500 (mg/ Sodium Chloride) 100 mls @ 100 mls/hr IV Q8H [facility] Last Admin: 07/02/17 15:05 Dose: 100 mls/hr Insulin Aspart (Novolog) 0 unit SC ACHS [facility] PRN Reason: Protocol Last Admin: 07/02/17 12:13 Dose: Not Given Insulin Aspart (Novolog Mix 70/30 (70/30 Units/Ml)) 10 units SC BID [facility] Last Admin: 07/02/17 12:15 Dose: Not Given Lactobacillus Acidophilus (Bacid Acidophilus) 1 cap PO DAILY [facility] Last Admin: 07/02/17 09:27 Dose: 1 cap Magnesium Hydroxide (Milk Of Magnesia) 30 ml PO DAILY PRN PRN Reason: Constipation Mupirocin (Bactroban Ointment) 0 gm TOP DAILY [facility] Last Admin: 07/02/17 09:27 Dose: 1 applic Nystatin (Nystop Topical Powder) 1 applic TOP BID PRN PRN Reason: Rash Last Admin: 07/02/17 13:37 Dose: 1 applic Ondansetron HCl (Zofran Inj) 4 mg IVP Q6 PRN PRN Reason: Nausea/Vomiting Last Admin: 06/28/17 18:51 Dose: 4 mg Pantoprazole Sodium (Protonix Inj) 40 mg IVP DAILY [facility] Last Admin: 07/02/17 09:25 Dose: 40 mg Petrolatum (Desitin Original) 1 gm TOP TID [facility] Last Admin: 07/02/17 15:04 Dose: Not Given Potassium Chloride (Potassium Chloride Oral Soln) 10 meq PO 0800 [facility] Last Admin: 07/02/17 09:34 Dose: Not Given - Labs Labs: 07/02/17 07:54 07/02/17 07:54 PT 11.3 SECONDS (9.7-12.2) 06/20/17 14:44 INR 1.0 06/20/17 14:44 APTT 33 SECONDS (21-34) 06/20/17 14:44 - Constitutional Appears: Well - Head Exam Head Exam: ATRAUMATIC, NORMAL INSPECTION, NORMOCEPHALIC - Eye Exam Eye Exam: EOMI, Normal appearance, PERRL Pupil Exam: NORMAL ACCOMODATION, PERRL - ENT Exam ENT Exam: Mucous Membranes Moist, Normal Exam - Neck Exam Neck Exam: Full ROM, Normal Inspection. absent: Lymphadenopathy - Respiratory Exam Respiratory Exam: Decreased Breath Sounds - Cardiovascular Exam Cardiovascular Exam: REGULAR RHYTHM, +S1, +S2 - GI/Abdominal Exam GI & Abdominal Exam: Soft, Diminished Bowel Sounds - Rectal Exam Rectal Exam: Deferred Assessment and Plan (1) Abdominal wall pain Status: Acute (2) Ileostomy care Status: Acute (3) Colonic fistula Status: Acute (4) Dehydration Status: Acute (5) Displacement of Mckeon catheter Status: Acute (6) Ileostomy bag changed Status: Acute (7) Urinary tract infection Status: Acute - Assessment and Plan (Free Text) Plan: Patient examined. Patient is better. No fever, nausea or vomiting. Lab shows K @ 4.3. Continue imipenem/cilastatin & fluconazole. Continue local ointment & nystatin powder. Continue supportive care.
--- NOTE | 2017-07-02 19:09 | CP.PCM.PN ---
Subjective - Date & Time of Evaluation Date of Evaluation: 07/02/17 Time of Evaluation: 05:00 - Subjective Subjective: dictated Objective - Vital Signs/Intake and Output Vital Signs (last 24 hours): Temp Pulse Resp BP Pulse Ox 97.8 F 90 20 100/60 99 07/02/17 17:44 07/02/17 17:02 07/02/17 15:00 07/02/17 17:02 07/02/17 15:00 Intake and Output: 07/02/17 07/03/17 18:59 06:59 Intake Total 750 Output Total 250 Balance 500 - Medications Medications: Current Medications Acetaminophen (Tylenol 325mg Tab) 650 mg PO Q4 PRN PRN Reason: Pain, Mild (1-3) Last Admin: 07/02/17 17:44 Dose: 650 mg Ascorbic Acid (Vitamin C 500 Mg Tab) 500 mg PO DAILY [facility] Last Admin: 07/02/17 09:29 Dose: 500 mg Dronabinol (Marinol) 5 mg PO BID [facility] Last Admin: 07/02/17 17:43 Dose: 5 mg Enoxaparin Sodium (Lovenox) 30 mg SC DAILY [facility] Last Admin: 07/02/17 09:26 Dose: 30 mg Fluconazole (Diflucan Iv 100 Mg/50 Ml Ns) 50 mls @ 100 mls/hr IVPB Q24H [facility] Last Admin: 07/02/17 13:37 Dose: 100 mls/hr Imipenem/Cilastatin Sodium 500 (mg/ Sodium Chloride) 100 mls @ 100 mls/hr IV Q8H [facility] Last Admin: 07/02/17 15:05 Dose: 100 mls/hr Insulin Aspart (Novolog) 0 unit SC ACHS [facility] PRN Reason: Protocol Last Admin: 07/02/17 17:10 Dose: Not Given Insulin Aspart (Novolog Mix 70/30 (70/30 Units/Ml)) 10 units SC BID [facility] Last Admin: 07/02/17 18:00 Dose: Not Given Lactobacillus Acidophilus (Bacid Acidophilus) 1 cap PO DAILY [facility] Last Admin: 07/02/17 09:27 Dose: 1 cap Magnesium Hydroxide (Milk Of Magnesia) 30 ml PO DAILY PRN PRN Reason: Constipation Mupirocin (Bactroban Ointment) 0 gm TOP DAILY [facility] Last Admin: 07/02/17 09:27 Dose: 1 applic Nystatin (Nystop Topical Powder) 1 applic TOP BID PRN PRN Reason: Rash Last Admin: 07/02/17 13:37 Dose: 1 applic Ondansetron HCl (Zofran Inj) 4 mg IVP Q6 PRN PRN Reason: Nausea/Vomiting Last Admin: 06/28/17 18:51 Dose: 4 mg Pantoprazole Sodium (Protonix Inj) 40 mg IVP DAILY [facility] Last Admin: 07/02/17 09:25 Dose: 40 mg Petrolatum (Desitin Original) 1 gm TOP TID [facility] Last Admin: 07/02/17 17:42 Dose: 1 applic Potassium Chloride (Potassium Chloride Oral Soln) 10 meq PO 0800 [facility] Last Admin: 07/02/17 09:34 Dose: Not Given - Labs Labs: 07/02/17 07:54 07/02/17 07:54 PT 11.3 SECONDS (9.7-12.2) 06/20/17 14:44 INR 1.0 06/20/17 14:44 APTT 33 SECONDS (21-34) 06/20/17 14:44
[2017-07-03 06:56] LABS: BASO % 0.5 % (0.0-2.0); EOS # 0.3 K/uL (0.0-0.7); EOS % 2.7 % (0.0-4.0); HEMATOCRIT 41.1 % (34.0-47.0); LYMPH # 2.9 K/uL (1.0-4.3); LYMPH % 28.5 % (20.0-40.0); MEAN CELL VOLUME 83.7 fL (81.0-99.0); MEAN CORPUSCULAR HEMOGLOBIN 27.6 pg (27.0-31.0); MEAN PLATELET VOLUME 8.5 fL (7.2-11.7); MONO # 0.6 K/uL (0.0-0.8); MONO % 6.1 % (0.0-10.0); NRBC % 0.1 % (0.0-2.0); RED CELL DISTRIBUTION WIDTH 15.5 % (11.5-14.5); WHITE BLOOD COUNT 10.2 K/uL (4.8-10.8)
[2017-07-03 07:13] LABS: ALB/GLOB RATIO 0.5 (1.0-2.1); ALKALINE PHOSPHATASE 164 U/L (38-126); ALT/SGPT 62 U/L (9-52); AST/SGOT 52 U/L (14-36); BILIRUBIN,TOTAL 0.8 mg/dL (0.2-1.3); BLOOD UREA NITROGEN 16 mg/dL (7-17); CALCIUM 7.6 mg/dl (8.6-10.4); CARBON DIOXIDE 24 mmol/L (22-30); CHLORIDE 99 mmol/L (98-107); GFR AFRICAN-AMERICAN > 60; GLUCOSE,RANDOM 72 mg/dL (65-105); POTASSIUM 4.4 mmol/L (3.6-5.2); SODIUM 126 mmol/L (132-148); TOTAL PROTEIN 6.4 g/dL (6.3-8.3)
[2017-07-03] MEDS: Potassium Chloride 20 mEq/15 ml LIQ UD PO SCH (07:52)
[2017-07-03] MEDS: (Novolog) Insulin Aspart, Recombinant 100 u/ml 10 ml vial SC SCH ×4 (07:52→22:20)
[2017-07-03] MEDS: Zinc Oxide Topical 30 gm Tube TOP SCH ×3 (09:30→17:51)
[2017-07-03] MEDS: Enoxaparin 30 mg Syringe SC SCH (09:30)
[2017-07-03] MEDS: Lactobacillus Acidophilus 500 MU Cap PO SCH (09:30)
[2017-07-03] MEDS: (Novolog Mix 70/30) Insulin Aspart/Insulin Aspar 100 units/ml SC SCH ×2 (09:31→18:45)
[2017-07-03] MEDS ORDERED: HYDROmorphone 0.5 mg/0.5 ml ISec IVP ONE (09:45)
[2017-07-03] MEDS: Fluconazole IV 100mg/50 ml NS 50 ML IVPB SCH (13:35)
--- NOTE | 2017-07-03 14:55 | RAD ---
PROCEDURE: Radiographs of the chest and abdomen HISTORY: vomiting COMPARISON: No prior. TECHNIQUE: AP radiograph of the chest, with supine radiograph of the abdomen. FINDINGS: CHEST: Lungs: The lungs are well inflated and clear. The right PICC line terminates at the cavoatrial junction. . Cardiovascular: Normal size heart. No pulmonary vascular congestion. Pleura: No pleural fluid. No pneumothorax. Other findings: None. ABDOMEN AND PELVIS: Bowel: The bowel gas pattern is nonspecific. No evidence of mechanical obstruction. There are bilateral nephrostomy tubes. Bones: Unremarkable. Other findings: None. IMPRESSION: Nonobstructive bowel-gas pattern. Clear lungs.
--- NOTE | 2017-07-03 15:39 | CP.PCM.PN ---
Subjective - Date & Time of Evaluation Date of Evaluation: 07/03/17 Time of Evaluation: 07:00 - Subjective Subjective: clinically same Objective - Vital Signs/Intake and Output Vital Signs (last 24 hours): Temp Pulse Resp BP Pulse Ox 97.5 F L 107 H 20 98/60 L 99 07/03/17 07:48 07/03/17 07:48 07/03/17 07:48 07/03/17 07:48 07/03/17 07:48 Intake and Output: 07/03/17 07/03/17 06:59 18:59 Intake Total 350 650 Output Total 210 1475 Balance 140 -825 - Medications Medications: Current Medications Acetaminophen (Tylenol 325mg Tab) 650 mg PO Q4 PRN PRN Reason: Pain, Mild (1-3) Last Admin: 07/03/17 11:06 Dose: 650 mg Ascorbic Acid (Vitamin C 500 Mg Tab) 500 mg PO DAILY [facility] Last Admin: 07/03/17 09:29 Dose: 500 mg Dronabinol (Marinol) 5 mg PO BID [facility] Last Admin: 07/03/17 09:30 Dose: 5 mg Enoxaparin Sodium (Lovenox) 30 mg SC DAILY [facility] Last Admin: 07/03/17 09:30 Dose: 30 mg Hydromorphone HCl (Dilaudid) 0.5 mg IVP Q8 PRN PRN Reason: Pain, severe (8-10) Imipenem/Cilastatin Sodium 500 (mg/ Sodium Chloride) 100 mls @ 100 mls/hr IV Q8H [facility] Last Admin: 07/03/17 14:20 Dose: 100 mls/hr Insulin Aspart (Novolog) 0 unit SC ACHS [facility] PRN Reason: Protocol Last Admin: 07/03/17 12:02 Dose: Not Given Insulin Aspart (Novolog Mix 70/30 (70/30 Units/Ml)) 10 units SC BID [facility] Last Admin: 07/03/17 09:31 Dose: Not Given Lactobacillus Acidophilus (Bacid Acidophilus) 1 cap PO DAILY [facility] Last Admin: 07/03/17 09:30 Dose: 1 cap Magnesium Hydroxide (Milk Of Magnesia) 30 ml PO DAILY PRN PRN Reason: Constipation Mupirocin (Bactroban Ointment) 0 gm TOP DAILY [facility] Last Admin: 07/03/17 09:29 Dose: 1 applic Nystatin (Nystop Topical Powder) 1 applic TOP BID PRN PRN Reason: Rash Last Admin: 07/02/17 13:37 Dose: 1 applic Ondansetron HCl (Zofran Inj) 4 mg IVP Q6 PRN PRN Reason: Nausea/Vomiting Last Admin: 07/03/17 11:05 Dose: 4 mg Pantoprazole Sodium (Protonix Inj) 40 mg IVP DAILY [facility] Last Admin: 07/03/17 09:30 Dose: 40 mg Petrolatum (Desitin Original) 1 gm TOP TID [facility] Last Admin: 07/03/17 14:20 Dose: 1 applic Potassium Chloride (Potassium Chloride Oral Soln) 10 meq PO 0800 [facility] Last Admin: 07/03/17 07:52 Dose: Not Given - Labs Labs: 07/03/17 06:45 07/03/17 06:45 PT 11.3 SECONDS (9.7-12.2) 06/20/17 14:44 INR 1.0 06/20/17 14:44 APTT 33 SECONDS (21-34) 06/20/17 14:44 - Constitutional Appears: Well - Head Exam Head Exam: ATRAUMATIC, NORMAL INSPECTION, NORMOCEPHALIC - Eye Exam Eye Exam: EOMI, Normal appearance, PERRL Pupil Exam: NORMAL ACCOMODATION, PERRL - ENT Exam ENT Exam: Mucous Membranes Moist, Normal Exam - Neck Exam Neck Exam: Full ROM, Normal Inspection. absent: Lymphadenopathy - Respiratory Exam Respiratory Exam: Clear to Ausculation Bilateral, NORMAL BREATHING PATTERN - Cardiovascular Exam Cardiovascular Exam: REGULAR RHYTHM, +S1, +S2. absent: Murmur - GI/Abdominal Exam GI & Abdominal Exam: Soft, Normal Bowel Sounds. absent: Tenderness - Rectal Exam Rectal Exam: Deferred Assessment and Plan (1) Abdominal wall pain Status: Acute (2) Ileostomy care Status: Acute (3) Colonic fistula Status: Acute (4) Dehydration Status: Acute (5) Displacement of Mckeon catheter Status: Acute (6) Ileostomy bag changed Status: Acute (7) Urinary tract infection Status: Acute - Assessment and Plan (Free Text) Plan: Patient examined. Patient is improving. Continue all medications.
--- NOTE | 2017-07-03 18:06 | PN ---
SUBJECTIVE: Patient was seen today. The male nurse told me that she did not allow anybody else to change her colostomy bag as it was full and to me, she said she is feeling better. PHYSICAL EXAMINATION: GENERAL: She did not appear in any distress. LUNGS: Clear. HEART: S1 and S2 regular. ABDOMEN: Soft. Colostomy bag appeared stable, it was not leaking and dermatitis is getting better. She has bilateral nephrostomy tubes. EXTREMITIES: No edema. She is cachectic, but today for the first time, she responded well and hopefully, she is improving. LABORATORY DATA: White count is 8, hemoglobin 12.2, hematocrit 36, BUN 12, and creatinine 0.6. Sodium still remains 126 and her urine culture and blood culture have been all negative now. ASSESSMENT AND PLAN: So, on Monday, probably we will try to get her off antibiotics and get her to rehab if possible. Erlin Miranda MD
--- NOTE | 2017-07-04 07:00 | CP.PCM.CON ---
<Gabi English - Last Filed: 07/04/17 11:48> History of Present Illness - History of Present Illness History of Present Illness: GI Consult note for Dr. Howe Reason for consult: intractable nausea and vomiting History from medical records and from son Gene Higgins 61 year old female PMHx HTN, DM, hyperthyroidism, arthritis, GERD, colitis, ileostomy with colostomy bag placement, and b/l nephrostomy tubes presented to [facility] ED on 06/20/17 from [facility] for leaking ostomy and subsequent skin irritation. Patient had a PICC line in place and was being treated with IV antibiotics at [facility]. GI consulted for intractable nausea and vomiting. Since admission patient has been experiencing nausea and some nonbloody nonbilious vomitus for which zofran has not seemed to help. She has also had decreased PO intake as she states she does not have an appetite. She also complained of severe pain around ostomy site and site of skin abrasion which extends from ostomy site to her right flank where nephrostomy tube is in place. She states the pain is burning in nature and worsened with any sort of contact and movement and worsens when the ostomy contents touch her skin. Patient's ostomy bag has been constantly leaking since admission. Patient has also been having some loose stool/diarrhea in ostomy bag. The day before 07/03 as per nursing, patient has had watery green output in the ostomy bag. Today patient has been having some slightly formed green stool in ostomy bag. PMHx: HTN, DM, hyperthyroidism, arthritis, GERD, colitis, ileostomy with colostomy bag placement, and b/l nephrostomy tubes PSurgHx: extensive- from medical records at listed below: November 2016: hysterectomy at [facility] 04/12/17: exlap with extensive lysis of adhesion, small bowel resection at fistula site in terminal ileum, small bowel resection of proximal ileum, bladder repair with omental plug, appendectomy, loop ileostomy, removal of gonzalez cath foreign body in right colon, drainage of umbilical abscess 05/03/17 and 05/08/17: debridement of abdominal wound [midline and abdominal wall] and placement of woundvac and ileostomy site wound care 05/24/17: R IR nephrostomy tube insertion 06/13/17: b/l nephrostomy tube insertion [L tube insertion and R tube change] as per son, patient had a "stomach problem surgery" 20 years ago in [place] Meds: pls see chart ALL: NKDA FamHx: denies SocialHx: denies EtOH, tobacco, drug use PProcedures: no history of endoscopy or colonoscopy in the past as per son Review of Systems - Review of Systems All systems: reviewed and no additional remarkable complaints except - Constitutional Constitutional: As Per HPI, Weight Loss, Weakness. absent: Fever - EENT Eyes: As Per HPI. absent: Blurred Vision Ears: As Per HPI. absent: Dizziness - Cardiovascular Cardiovascular: As Per HPI. absent: Chest Pain, Dyspnea - Respiratory Respiratory: As Per HPI. absent: Cough, Dyspnea - Gastrointestinal Gastrointestinal: As Per HPI, Diarrhea, Heartburn, Loose Stools, Nausea, Vomiting. absent: Abdominal Pain, Hematemesis Additional comments: ileostomy bag in place + decreased appetite and PO intake - Genitourinary Genitourinary: As Per HPI, Hx /Renal Surgery (b/l nephrostomy tubes in place) - Integumentary Integumentary: As Per HPI, Erythema (ostomy site radiating to R flank where R nephrostomy tube is in place), Wounds (ostomy site radiating to R flank where R nephrostomy tube is in place) Additional comments: skin breakdown and excoriation at ostomy site radiating to R flank where R nephrostomy tube is in place - Neurological Neurological: As Per HPI, Weakness Past Patient History - Past Medical History & Family History Past Medical History?: Yes - Past Social History Smoking Status: Never Smoked - CARDIAC Hx Hypertension: Yes - PULMONARY Hx Respiratory Disorders: No - NEUROLOGICAL Hx Neurological Disorder: No - HEENT Hx HEENT Problems: No - RENAL Hx Chronic Kidney Disease: No - ENDOCRINE/METABOLIC Hx Hyperthyroidism: Yes - HEMATOLOGICAL/ONCOLOGICAL Hx Blood Disorders: No - INTEGUMENTARY Hx Dermatological Problems: No - MUSCULOSKELETAL/RHEUMATOLOGICAL Hx Arthritis: Yes (back) Hx Falls: No - GASTROINTESTINAL Hx Gastrointestinal Disorders: Yes Hx Colitis: Yes Hx Gastroesophageal Reflux: Yes Other/Comment: Gastroenteritis - GENITOURINARY/GYNECOLOGICAL Hx Genitourinary Disorders: Yes Hx Urinary Tract Infection: Yes Other/Comment: Hydroureter - PSYCHIATRIC Hx Substance Use: No - SURGICAL HISTORY Hx Surgeries: Yes Other/Comment: Nephrostomy insertion - ANESTHESIA Hx Anesthesia: Yes Hx Anesthesia Reactions: No Meds Allergies/Adverse Reactions: Allergies Allergy/AdvReac Type Severity Reaction Status Date / Time No Known Allergies Allergy Verified 06/02/17 21:17 - Medications Medications: Current Medications Acetaminophen (Tylenol 325mg Tab) 650 mg PO Q4 PRN PRN Reason: Pain, Mild (1-3) Last Admin: 07/03/17 11:06 Dose: 650 mg Ascorbic Acid (Vitamin C 500 Mg Tab) 500 mg PO DAILY [facility] Last Admin: 07/03/17 09:29 Dose: 500 mg Dronabinol (Marinol) 5 mg PO BID [facility] Last Admin: 07/03/17 17:51 Dose: Not Given Enoxaparin Sodium (Lovenox) 30 mg SC DAILY [facility] Last Admin: 07/03/17 09:30 Dose: 30 mg Hydromorphone HCl (Dilaudid) 0.5 mg IVP Q8 PRN PRN Reason: Pain, severe (8-10) Last Admin: 07/03/17 20:30 Dose: 0.5 mg Imipenem/Cilastatin Sodium 500 (mg/ Sodium Chloride) 100 mls @ 100 mls/hr IV Q8H [facility] Last Admin: 07/04/17 05:28 Dose: 100 mls/hr Insulin Aspart (Novolog) 0 unit SC ACHS [facility] PRN Reason: Protocol Last Admin: 07/03/17 22:20 Dose: Not Given Insulin Aspart (Novolog Mix 70/30 (70/30 Units/Ml)) 10 units SC BID [facility] Last Admin: 07/03/17 18:45 Dose: Not Given Lactobacillus Acidophilus (Bacid Acidophilus) 1 cap PO DAILY [facility] Last Admin: 07/03/17 09:30 Dose: 1 cap Magnesium Hydroxide (Milk Of Magnesia) 30 ml PO DAILY PRN PRN Reason: Constipation Mupirocin (Bactroban Ointment) 0 gm TOP DAILY [facility] Last Admin: 07/03/17 09:29 Dose: 1 applic Nystatin (Nystop Topical Powder) 1 applic TOP BID PRN PRN Reason: Rash Last Admin: 07/02/17 13:37 Dose: 1 applic Ondansetron HCl (Zofran Inj) 4 mg IVP Q6 PRN PRN Reason: Nausea/Vomiting Last Admin: 07/03/17 11:05 Dose: 4 mg Pantoprazole Sodium (Protonix Inj) 40 mg IVP DAILY [facility] Last Admin: 07/03/17 09:30 Dose: 40 mg Petrolatum (Desitin Original) 1 gm TOP TID [facility] Last Admin: 07/03/17 17:51 Dose: 1 applic Potassium Chloride (Potassium Chloride Oral Soln) 10 meq PO 0800 [facility] Last Admin: 07/03/17 07:52 Dose: Not Given Physical Exam - Constitutional Appears: In Acute Distress, Cachectic, Chronically Ill - Head Exam Head Exam: ATRAUMATIC, NORMOCEPHALIC - Eye Exam Eye Exam: EOMI, Normal appearance, PERRL. absent: Conjunctival injection, Scleral icterus - ENT Exam ENT Exam: Mucous Membranes Dry - Respiratory Exam Respiratory Exam: NORMAL BREATHING PATTERN. absent: Accessory Muscle Use, Respiratory Distress - Cardiovascular Exam Cardiovascular Exam: Tachycardia, +S1, +S2 - GI/Abdominal Exam GI & Abdominal Exam: Normal Bowel Sounds, Soft, Tenderness. absent: Distended, Firm, Guarding Additional comments: ostomy bag in place with green stool that is soft in consistency - Extremities Exam Extremities exam: Positive for: normal capillary refill, normal inspection, pedal pulses present. Negative for: pedal edema - Back Exam Additional comments: b/l nephrostomy tubes noted excoriated skin noted R > L - Neurological Exam Neurological exam: Alert, CN II-XII Intact, Oriented x3 - Psychiatric Exam Psychiatric exam: Depressed - Skin Skin Exam: Abrasion, Erythema Results - Vital Signs Recent Vital Signs: Last Vital Signs Temp 97.6 F 07/03/17 23:45 Pulse 107 H 07/03/17 23:45 Resp 18 07/03/17 23:45 BP 109/69 07/03/17 23:45 Pulse Ox 100 07/03/17 23:45 - Labs Result Diagrams: 07/03/17 06:45 07/03/17 06:45 Labs: Laboratory Results - last 24 hr 07/03/17 07/03/17 07/03/17 06:45 07:01 11:06 Sodium 126 L Potassium 4.4 Chloride 99 Carbon Dioxide 24 Anion Gap 7 L BUN 16 Creatinine 0.6 L Est GFR ( Amer) > 60 Est GFR (Non-Af Amer) > 60 POC Glucose (mg/dL) 75 111 H Random Glucose 72 Calcium 7.6 L Total Bilirubin 0.8 AST 52 H D ALT 62 H Alkaline Phosphatase 164 H Total Protein 6.4 Albumin 2.2 L Globulin 4.2 H Albumin/Globulin Ratio 0.5 L 07/03/17 07/03/17 16:11 21:30 Sodium Potassium Chloride Carbon Dioxide Anion Gap BUN Creatinine Est GFR ( Amer) Est GFR (Non-Af Amer) POC Glucose (mg/dL) 157 H 153 H Random Glucose Calcium Total Bilirubin AST ALT Alkaline Phosphatase Total Protein Albumin Globulin Albumin/Globulin Ratio Assessment & Plan - Assessment and Plan (Free Text) Assessment: 61 year old female PMHx HTN, DM, hyperthyroidism, arthritis, GERD, colitis, ileostomy with colostomy bag placement, and b/l nephrostomy tubes presented to [facility] ED on 06/20/17 from [facility] for leaking ostomy and subsequent skin irritation. GI consulted for intractable nausea and vomiting Plan: Nausea and vomiting - Abd x-ray: nonobstructive bowel gas - Zofran 4mg ivp q6 prn - Reglan 10mg ivp achs - Protonix 40mg ivp qdaily Diarrhea and Loose stools - stool sent for C. Diff, stool electrolytes, stool culture, and stool leukocytes - Milk of Magnesia on hold - Lactobacillus 1 tab po bid Decreased appetite - Marinol 5mg po bid - Pureed diet with supplements Ileostomy bag and excoriation around area - managed as per wound care, surgery, and primary - reccs from surgery: Lidocaine 2% cream on skin, [place] cream let dry, Flexibel wafer to make a skin tight seal. - change and manage as needed GI will continue to follow Discussed with Dr. Shyam English PGY2 <Deovn Howe - Last Filed: 07/04/17 12:08> Meds - Medications Medications: Current Medications Acetaminophen (Tylenol 325mg Tab) 650 mg PO Q4 PRN PRN Reason: Pain, Mild (1-3) Last Admin: 07/03/17 11:06 Dose: 650 mg Ascorbic Acid (Vitamin C 500 Mg Tab) 500 mg PO DAILY [facility] Last Admin: 07/04/17 09:25 Dose: 500 mg Dronabinol (Marinol) 5 mg PO BID [facility] Last Admin: 07/04/17 09:24 Dose: 5 mg Enoxaparin Sodium (Lovenox) 30 mg SC DAILY [facility] Last Admin: 07/04/17 09:25 Dose: 30 mg Hydromorphone HCl (Dilaudid) 0.5 mg IVP Q8 PRN PRN Reason: Pain, severe (8-10) Last Admin: 07/04/17 09:25 Dose: 0.5 mg Dextrose/Sodium Chloride (Dextrose 5%/0.9% Ns 1000 Ml) 1,000 mls @ 75 mls/hr IV .[id number] ONE Stop: 07/04/17 23:57 Last Admin: 07/04/17 11:08 Dose: 75 mls/hr Insulin Aspart (Novolog) 0 unit SC ACHS [facility] PRN Reason: Protocol Last Admin: 07/04/17 11:43 Dose: Not Given Lactobacillus Acidophilus (Bacid Acidophilus) 1 cap PO BID [facility] Lidocaine HCl (Xylocaine 2%) 0 ea TOP Q12 [facility] Last Admin: 07/04/17 11:10 Dose: Not Given Magnesium Hydroxide (Milk Of Magnesia) 30 ml PO DAILY PRN PRN Reason: Constipation Metoclopramide HCl (Reglan) 10 mg IVP ACHS [facility] Last Admin: 07/04/17 11:07 Dose: 10 mg Mupirocin (Bactroban Ointment) 0 gm TOP DAILY [facility] Last Admin: 07/04/17 09:23 Dose: 1 applic Nystatin (Nystop Topical Powder) 1 applic TOP BID PRN PRN Reason: Rash Last Admin: 07/02/17 13:37 Dose: 1 applic Ondansetron HCl (Zofran Inj) 4 mg IVP Q6 PRN PRN Reason: Nausea/Vomiting Last Admin: 07/03/17 11:05 Dose: 4 mg Pantoprazole Sodium (Protonix Inj) 40 mg IVP DAILY [facility] Last Admin: 07/04/17 09:24 Dose: 40 mg Petrolatum (Desitin Original) 1 gm TOP TID [facility] Last Admin: 07/04/17 09:24 Dose: 1 applic Potassium Chloride (Potassium Chloride Oral Soln) 10 meq PO 0800 [facility] Last Admin: 07/04/17 08:32 Dose: Not Given Results - Vital Signs Recent Vital Signs: Last Vital Signs Temp 97.8 F 07/04/17 07:59 Pulse 104 H 07/04/17 07:59 Resp 20 07/04/17 07:59 BP 98/59 L 07/04/17 07:59 Pulse Ox 99 07/04/17 07:59 - Labs Result Diagrams: 07/03/17 06:45 07/03/17 06:45 Labs: Laboratory Results - last 24 hr 07/03/17 07/03/17 07/04/17 16:11 21:30 07:14 POC Glucose (mg/dL) 157 H 153 H 100 C. difficile Ag & Toxin 07/04/17 11:05 POC Glucose (mg/dL) C. difficile Ag & Toxin Negative Attending/Attestation - Attestation I have personally seen and examined this patient.: Yes I have fully participated in the care of the patient.: Yes I have reviewed all pertinent clinical information: Yes Notes (Text): 07/04/17 11:59 I have seen and examined patient with GI fellow. Agree with above documentation with the following additions. In brief, this is a 61 year old female with history of DM, HTN, GERD, hyperthyroidism, colovesicular fistula s/ p surgical resection and ileostomy who presents from nursing facility with complaint of leaking ostomy and cellulitis. GI called for evaluation of nausea , vomiting. She describes generalized abdominal discomfort mainly at ostomy and nephrostomy tube sites along with nausea and intermittent regurgitation of food product, though not specifically vomiting. She endorses loss of appetite and weight loss though she is not able to quantify amount or duration of time. She denies fever/chills or blood in ostomy bag. No prior endoscopic evaluation. 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 Wound care nursing services to assist with specialized ostomy bag placement today. - Anti-emetic therapy PRN, symptoms of nausea might be related to ongoing chronic antibiotic use - Obtain stool studies given presence of loose stool in ostomy bag - Patient would benefit from elective outpatient endoscopic evaluation following resolution of acute infectious process. Will continue to monitor patient clinical course.
[2017-07-04] MEDS: (Novolog) Insulin Aspart, Recombinant 100 u/ml 10 ml vial SC SCH ×4 (08:00→21:33)
[2017-07-04] MEDS: Potassium Chloride 20 mEq/15 ml LIQ UD PO SCH (08:32)
[2017-07-04] MEDS: Zinc Oxide Topical 30 gm Tube TOP SCH ×3 (09:24→18:00)
[2017-07-04] MEDS: Lactobacillus Acidophilus 500 MU Cap PO SCH ×2 (09:25→18:52)
[2017-07-04] MEDS: Enoxaparin 30 mg Syringe SC SCH (09:25)
[2017-07-04] MEDS: (Novolog Mix 70/30) Insulin Aspart/Insulin Aspar 100 units/ml SC SCH (09:27)
[2017-07-04] MEDS ORDERED: Lidocaine 5% Oint(35 gm) TOP SCH (10:00)
--- NOTE | 2017-07-04 10:34 | CP.PCM.PN ---
<Edita Cerrato DO - Last Filed: 07/04/17 17:04> Subjective - Date & Time of Evaluation Date of Evaluation: 07/04/17 Time of Evaluation: 10:25 - Subjective Subjective: PGY2 medicine progress note for Dr. Higgins's service Patient seen and examined. Patient with decreased appetite. Patient with erythema and pain around ostomy site. Per nursing report, patient having frequent ileostomy leakage. Objective - Vital Signs/Intake and Output Vital Signs (last 24 hours): Temp Pulse Resp BP Pulse Ox 97.8 F 104 H 20 98/59 L 99 07/04/17 07:59 07/04/17 07:59 07/04/17 07:59 07/04/17 07:59 07/04/17 07:59 Intake and Output: 07/04/17 07/04/17 06:59 18:59 Intake Total 160 220 Output Total 405 275 Balance -245 -55 - Medications Medications: Current Medications Acetaminophen (Tylenol 325mg Tab) 650 mg PO Q4 PRN PRN Reason: Pain, Mild (1-3) Last Admin: 07/03/17 11:06 Dose: 650 mg Ascorbic Acid (Vitamin C 500 Mg Tab) 500 mg PO DAILY [facility] Last Admin: 07/04/17 09:25 Dose: 500 mg Dronabinol (Marinol) 5 mg PO BID [facility] Last Admin: 07/04/17 09:24 Dose: 5 mg Enoxaparin Sodium (Lovenox) 30 mg SC DAILY [facility] Last Admin: 07/04/17 09:25 Dose: 30 mg Hydromorphone HCl (Dilaudid) 0.5 mg IVP Q8 PRN PRN Reason: Pain, severe (8-10) Last Admin: 07/04/17 09:25 Dose: 0.5 mg Insulin Aspart (Novolog) 0 unit SC ACHS [facility] PRN Reason: Protocol Lactobacillus Acidophilus (Bacid Acidophilus) 1 cap PO DAILY [facility] Last Admin: 07/04/17 09:25 Dose: 1 cap Lidocaine HCl (Xylocaine 2%) 0 ea TOP Q12 [facility] Magnesium Hydroxide (Milk Of Magnesia) 30 ml PO DAILY PRN PRN Reason: Constipation Metoclopramide HCl (Reglan) 10 mg IVP ACHS [facility] Mupirocin (Bactroban Ointment) 0 gm TOP DAILY [facility] Last Admin: 07/04/17 09:23 Dose: 1 applic Nystatin (Nystop Topical Powder) 1 applic TOP BID PRN PRN Reason: Rash Last Admin: 07/02/17 13:37 Dose: 1 applic Ondansetron HCl (Zofran Inj) 4 mg IVP Q6 PRN PRN Reason: Nausea/Vomiting Last Admin: 07/03/17 11:05 Dose: 4 mg Pantoprazole Sodium (Protonix Inj) 40 mg IVP DAILY [facility] Last Admin: 07/04/17 09:24 Dose: 40 mg Petrolatum (Desitin Original) 1 gm TOP TID [facility] Last Admin: 07/04/17 09:24 Dose: 1 applic Potassium Chloride (Potassium Chloride Oral Soln) 10 meq PO 0800 [facility] Last Admin: 07/04/17 08:32 Dose: Not Given - Labs Labs: 07/03/17 06:45 07/03/17 06:45 PT 11.3 SECONDS (9.7-12.2) 06/20/17 14:44 INR 1.0 06/20/17 14:44 APTT 33 SECONDS (21-34) 06/20/17 14:44 - Constitutional Appears: Cachectic, Chronically Ill - Head Exam Head Exam: ATRAUMATIC, NORMOCEPHALIC - Eye Exam Eye Exam: EOMI - ENT Exam ENT Exam: Mucous Membranes Dry - Respiratory Exam Respiratory Exam: Clear to Ausculation Bilateral - Cardiovascular Exam Cardiovascular Exam: +S1, +S2 - GI/Abdominal Exam GI & Abdominal Exam: Soft, Normal Bowel Sounds Additional comments: erythematous skin surrounding ostomy, soft stool in bag - Back Exam Additional comments: b/l nephrostomy tubes - Neurological Exam Neurological Exam: Alert, Awake - Skin Skin Exam: Warm Assessment and Plan - Assessment and Plan (Free Text) Assessment: Cellulitis ostomy site- continue marathon skin protectant around ostomy, lidocaine 5% cream around ileostomy site ID, Dr. Miranda- recs appreciated antibiotics discontinued as per Dr. Miranda's note from 07/02/17 continue mupirocin topical ointment 07/03/17: WBC normalized at 10.2 Afebrile Blood Cx: no growth after 5 days Vomiting continue zofran 4mg IV q6prn Dr. Howe, GI, consulted- help appreciated starting reglan 10mg IV ACHS stool studies ordered 07/03/17- chest/ abdomen xray- non-obstructive bowel gas pattern Poor appetite/ malnutrition continue marinol pureed diet continue zofran prn for nausea continue D5 NS @ 70cc/h continue ascorbic acid 500mg daily Transaminitis- Improving AST/ALT: 52/62 continue to monitor History colovesicular fistula following hysterectomy pt developed fistula which [place] [facility] [place] has had b/l nephrostomy tubes placed due to complications from surgery Diabetes continue ISS continue novolog 70/30 10u BID Electrolyte imbalance continue to monitor and replete as necessary hyponatremia improved 121->124->126 Prophylaxis continue lovenox 30mg sc daily continue protonix 40mg IV daily Case discussed with Dr. Higgins All management as per Dr. Higgins <Tonya Higgins S - Last Filed: 07/05/17 14:23> Objective - Vital Signs/Intake and Output Vital Signs (last 24 hours): Temp Pulse Resp BP Pulse Ox 97.7 F 114 H 20 98/72 L 100 07/05/17 07:19 07/05/17 07:19 07/05/17 07:19 07/05/17 07:19 07/05/17 07:19 Intake and Output: 07/05/17 07/05/17 06:59 18:59 Intake Total 1380 Output Total 1715 Balance -335 - Medications Medications: Current Medications Acetaminophen (Tylenol 325mg Tab) 650 mg PO Q4 PRN PRN Reason: Pain, Mild (1-3) Last Admin: 07/03/17 11:06 Dose: 650 mg Ascorbic Acid (Vitamin C 500 Mg Tab) 500 mg PO DAILY [facility] Last Admin: 07/05/17 09:30 Dose: 500 mg Dronabinol (Marinol) 5 mg PO BID [facility] Last Admin: 07/05/17 09:30 Dose: 5 mg Enoxaparin Sodium (Lovenox) 30 mg SC DAILY [facility] Last Admin: 07/05/17 09:30 Dose: 30 mg Hydromorphone HCl (Dilaudid) 0.5 mg IVP Q8 PRN PRN Reason: Pain, severe (8-10) Last Admin: 07/05/17 09:52 Dose: 0.5 mg Dextrose/Sodium Chloride (Dextrose 5%/0.9% Ns 1000 Ml) 1,000 mls @ 75 mls/hr IV .[id number] [facility] Last Admin: 07/05/17 01:47 Dose: 75 mls/hr Insulin Aspart (Novolog) 0 unit SC ACHS [facility] PRN Reason: Protocol Last Admin: 07/05/17 12:01 Dose: 2 unit Lactobacillus Acidophilus (Bacid Acidophilus) 1 cap PO BID [facility] Last Admin: 07/05/17 09:30 Dose: 1 cap Lidocaine HCl (Xylocaine 2%) 0 ea TOP Q12 [facility] Last Admin: 07/05/17 13:01 Dose: Not Given Magnesium Hydroxide (Milk Of Magnesia) 30 ml PO DAILY PRN PRN Reason: Constipation Metoclopramide HCl (Reglan) 10 mg IVP ACHS PRN PRN Reason: Nausea/Vomiting Mupirocin (Bactroban Ointment) 0 gm TOP DAILY [facility] Last Admin: 07/05/17 09:32 Dose: 1 applic Nystatin (Nystop Topical Powder) 1 applic TOP BID PRN PRN Reason: Rash Last Admin: 07/02/17 13:37 Dose: 1 applic Ondansetron HCl (Zofran Inj) 4 mg IVP Q6 PRN PRN Reason: Nausea/Vomiting Last Admin: 07/03/17 11:05 Dose: 4 mg Pantoprazole Sodium (Protonix Inj) 40 mg IVP DAILY [facility] Last Admin: 07/05/17 09:30 Dose: 40 mg Petrolatum (Desitin Original) 1 gm TOP TID [facility] Last Admin: 07/05/17 09:32 Dose: 1 applic Potassium Chloride (Potassium Chloride Oral Soln) 10 meq PO 0800 [facility] Last Admin: 07/05/17 08:01 Dose: Not Given - Labs Labs: 07/05/17 06:08 07/05/17 06:08 PT 11.3 SECONDS (9.7-12.2) 06/20/17 14:44 INR 1.0 06/20/17 14:44 APTT 33 SECONDS (21-34) 06/20/17 14:44 Assessment and Plan (1) Abdominal wall pain Status: Acute (2) Ileostomy care Status: Acute (3) Colonic fistula Status: Acute (4) Dehydration Status: Acute (5) Displacement of Mckeon catheter Status: Acute (6) Ileostomy bag changed Status: Acute (7) Urinary tract infection Status: Acute Attending/Attestation - Attestation I have personally seen and examined this patient.: Yes I have fully participated in the care of the patient.: Yes I have reviewed all pertinent clinical information, including history, physical exam and plan: Yes Notes (Text): Patient examined. Surgical consult done. Advised to continue antibiotics, nursing to replace specialised colostomy bag & outpatient GI scopy after infection is cleared. Continue antibiotcs & supportive care.
[2017-07-04] MEDS ORDERED: Dextrose 5%/0.9% NS 1,000 ML IV ONE (10:38)
[2017-07-04] MEDS: Lidocaine 2% Jelly (30 ml) TOP SCH ×2 (11:10→21:42)
[2017-07-04 11:53] LABS: C DIFF TOXIN A B NEGATIVE (NEGATIVE)
[2017-07-04 12:49] LABS: FECAL LEUKOCYTES NEGATIVE (NEGATIVE)
--- NOTE | 2017-07-04 15:29 | CP.PCM.PN ---
Subjective - Date & Time of Evaluation Date of Evaluation: 07/04/17 Time of Evaluation: 02:45 - Subjective Subjective: dictated Objective - Vital Signs/Intake and Output Vital Signs (last 24 hours): Temp Pulse Resp BP Pulse Ox 97.8 F 104 H 20 98/59 L 99 07/04/17 07:59 07/04/17 07:59 07/04/17 07:59 07/04/17 07:59 07/04/17 07:59 Intake and Output: 07/04/17 07/04/17 06:59 18:59 Intake Total 160 670 Output Total 405 925 Balance -245 -255 - Medications Medications: Current Medications Acetaminophen (Tylenol 325mg Tab) 650 mg PO Q4 PRN PRN Reason: Pain, Mild (1-3) Last Admin: 07/03/17 11:06 Dose: 650 mg Ascorbic Acid (Vitamin C 500 Mg Tab) 500 mg PO DAILY [facility] Last Admin: 07/04/17 09:25 Dose: 500 mg Dronabinol (Marinol) 5 mg PO BID [facility] Last Admin: 07/04/17 09:24 Dose: 5 mg Enoxaparin Sodium (Lovenox) 30 mg SC DAILY [facility] Last Admin: 07/04/17 09:25 Dose: 30 mg Hydromorphone HCl (Dilaudid) 0.5 mg IVP Q8 PRN PRN Reason: Pain, severe (8-10) Last Admin: 07/04/17 09:25 Dose: 0.5 mg Dextrose/Sodium Chloride (Dextrose 5%/0.9% Ns 1000 Ml) 1,000 mls @ 75 mls/hr IV .[id number] ONE Stop: 07/04/17 23:57 Last Admin: 07/04/17 11:08 Dose: 75 mls/hr Insulin Aspart (Novolog) 0 unit SC ACHS [facility] PRN Reason: Protocol Last Admin: 07/04/17 11:43 Dose: Not Given Lactobacillus Acidophilus (Bacid Acidophilus) 1 cap PO BID [facility] Lidocaine HCl (Xylocaine 2%) 0 ea TOP Q12 [facility] Last Admin: 07/04/17 11:10 Dose: Not Given Magnesium Hydroxide (Milk Of Magnesia) 30 ml PO DAILY PRN PRN Reason: Constipation Metoclopramide HCl (Reglan) 10 mg IVP ACHS PRN PRN Reason: Nausea/Vomiting Mupirocin (Bactroban Ointment) 0 gm TOP DAILY [facility] Last Admin: 07/04/17 09:23 Dose: 1 applic Nystatin (Nystop Topical Powder) 1 applic TOP BID PRN PRN Reason: Rash Last Admin: 07/02/17 13:37 Dose: 1 applic Ondansetron HCl (Zofran Inj) 4 mg IVP Q6 PRN PRN Reason: Nausea/Vomiting Last Admin: 07/03/17 11:05 Dose: 4 mg Pantoprazole Sodium (Protonix Inj) 40 mg IVP DAILY [facility] Last Admin: 07/04/17 09:24 Dose: 40 mg Petrolatum (Desitin Original) 1 gm TOP TID [facility] Last Admin: 07/04/17 13:23 Dose: 1 applic Potassium Chloride (Potassium Chloride Oral Soln) 10 meq PO 0800 [facility] Last Admin: 07/04/17 08:32 Dose: Not Given - Labs Labs: 07/03/17 06:45 07/03/17 06:45 PT 11.3 SECONDS (9.7-12.2) 06/20/17 14:44 INR 1.0 06/20/17 14:44 APTT 33 SECONDS (21-34) 06/20/17 14:44
--- NOTE | 2017-07-04 17:34 | CP.PCM.PN ---
Subjective - Date & Time of Evaluation Date of Evaluation: 07/04/17 Time of Evaluation: 07:00 - Subjective Subjective: clinically same Objective - Vital Signs/Intake and Output Vital Signs (last 24 hours): Temp Pulse Resp BP Pulse Ox 98.3 F 120 H 20 121/79 94 L 07/04/17 15:00 07/04/17 15:00 07/04/17 15:00 07/04/17 15:00 07/04/17 15:00 Intake and Output: 07/04/17 07/04/17 06:59 18:59 Intake Total 160 670 Output Total 405 925 Balance -245 -255 - Medications Medications: Current Medications Acetaminophen (Tylenol 325mg Tab) 650 mg PO Q4 PRN PRN Reason: Pain, Mild (1-3) Last Admin: 07/03/17 11:06 Dose: 650 mg Ascorbic Acid (Vitamin C 500 Mg Tab) 500 mg PO DAILY [facility] Last Admin: 07/04/17 09:25 Dose: 500 mg Dronabinol (Marinol) 5 mg PO BID [facility] Last Admin: 07/04/17 09:24 Dose: 5 mg Enoxaparin Sodium (Lovenox) 30 mg SC DAILY [facility] Last Admin: 07/04/17 09:25 Dose: 30 mg Hydromorphone HCl (Dilaudid) 0.5 mg IVP Q8 PRN PRN Reason: Pain, severe (8-10) Last Admin: 07/04/17 09:25 Dose: 0.5 mg Dextrose/Sodium Chloride (Dextrose 5%/0.9% Ns 1000 Ml) 1,000 mls @ 75 mls/hr IV .[id number] ONE Stop: 07/04/17 23:57 Last Admin: 07/04/17 11:08 Dose: 75 mls/hr Insulin Aspart (Novolog) 0 unit SC ACHS [facility] PRN Reason: Protocol Last Admin: 07/04/17 11:43 Dose: Not Given Lactobacillus Acidophilus (Bacid Acidophilus) 1 cap PO BID [facility] Lidocaine HCl (Xylocaine 2%) 0 ea TOP Q12 [facility] Last Admin: 07/04/17 11:10 Dose: Not Given Magnesium Hydroxide (Milk Of Magnesia) 30 ml PO DAILY PRN PRN Reason: Constipation Metoclopramide HCl (Reglan) 10 mg IVP ACHS PRN PRN Reason: Nausea/Vomiting Mupirocin (Bactroban Ointment) 0 gm TOP DAILY [facility] Last Admin: 07/04/17 09:23 Dose: 1 applic Nystatin (Nystop Topical Powder) 1 applic TOP BID PRN PRN Reason: Rash Last Admin: 07/02/17 13:37 Dose: 1 applic Ondansetron HCl (Zofran Inj) 4 mg IVP Q6 PRN PRN Reason: Nausea/Vomiting Last Admin: 07/03/17 11:05 Dose: 4 mg Pantoprazole Sodium (Protonix Inj) 40 mg IVP DAILY [facility] Last Admin: 07/04/17 09:24 Dose: 40 mg Petrolatum (Desitin Original) 1 gm TOP TID [facility] Last Admin: 07/04/17 13:23 Dose: 1 applic Potassium Chloride (Potassium Chloride Oral Soln) 10 meq PO 0800 [facility] Last Admin: 07/04/17 08:32 Dose: Not Given - Labs Labs: 07/03/17 06:45 07/03/17 06:45 PT 11.3 SECONDS (9.7-12.2) 06/20/17 14:44 INR 1.0 06/20/17 14:44 APTT 33 SECONDS (21-34) 06/20/17 14:44 - Constitutional Appears: Well - Head Exam Head Exam: ATRAUMATIC, NORMAL INSPECTION, NORMOCEPHALIC - Eye Exam Eye Exam: EOMI, Normal appearance, PERRL Pupil Exam: NORMAL ACCOMODATION, PERRL - ENT Exam ENT Exam: Mucous Membranes Moist, Normal Exam - Neck Exam Neck Exam: Full ROM, Normal Inspection. absent: Lymphadenopathy - Respiratory Exam Respiratory Exam: Clear to Ausculation Bilateral, NORMAL BREATHING PATTERN - Cardiovascular Exam Cardiovascular Exam: REGULAR RHYTHM, +S1, +S2. absent: Murmur - GI/Abdominal Exam GI & Abdominal Exam: Soft, Normal Bowel Sounds. absent: Tenderness - Rectal Exam Rectal Exam: Deferred Assessment and Plan (1) Abdominal wall pain Status: Acute (2) Ileostomy care Status: Acute (3) Colonic fistula Status: Acute (4) Dehydration Status: Acute (5) Displacement of Mckeon catheter Status: Acute (6) Ileostomy bag changed Status: Acute (7) Urinary tract infection Status: Acute - Assessment and Plan (Free Text) Plan: Patient examined. Patient relativel better, Continue antibiotics & other supportive care.
--- NOTE | 2017-07-04 19:16 | PN ---
DATE: SUBJECTIVE: Patient remains afebrile, temperature is 97.8. She denies any problems. She has minimal excoriation on the skin and colostomy bag is functioning. She has bilateral nephrostomy tubes, however, the left one seems to have less bloody drainage, but it is darker urine. PHYSICAL EXAMINATION: VITAL SIGNS: T-max is 97.8, heart rate of 104, blood pressure 98/59, respirations are 20. GENERAL: She requested another blanket. Cachectic-looking female. HEENT: Head is atraumatic. NECK: Supple. LUNGS: Clear. HEART: S1 and S2, is tachy. ABDOMEN: Has a colostomy bag. Excoriation on the skin from the fecal, is better now. EXTREMITIES: Have no edema. She has bilateral nephrostomy tubes and the GI is that her skin is looking better on the abdomen and there is only dermatitis at this time. I have discontinued the antibiotics and I am hoping she remains stable and gets discharge from the hospital to rehab if possible. We will follow. Erlin Miranda MD
[2017-07-05] MEDS: Dextrose 5%/0.9% NS 1,000 ML IV SCH ×2 (01:47→15:10)
[2017-07-05 06:18] LABS: BASO % 0.3 % (0.0-2.0); EOS # 0.2 K/uL (0.0-0.7); EOS % 2.5 % (0.0-4.0); HEMATOCRIT 34.7 % (34.0-47.0); LYMPH # 2.1 K/uL (1.0-4.3); LYMPH % 26.4 % (20.0-40.0); MEAN CELL VOLUME 84.3 fL (81.0-99.0); MEAN CORPUSCULAR HEMOGLOBIN 27.8 pg (27.0-31.0); MEAN PLATELET VOLUME 7.8 fL (7.2-11.7); MONO # 0.7 K/uL (0.0-0.8); MONO % 8.7 % (0.0-10.0); NRBC % 0.2 % (0.0-2.0); RED CELL DISTRIBUTION WIDTH 15.4 % (11.5-14.5); WHITE BLOOD COUNT 7.9 K/uL (4.8-10.8)
--- NOTE | 2017-07-05 07:56 | CP.PCM.PN ---
<Marko Englishima - Last Filed: 07/05/17 14:19> Subjective - Date & Time of Evaluation Date of Evaluation: 07/05/17 Time of Evaluation: 08:15 - Subjective Subjective: PGY2 GI Note for Dr. Howe Patient seen and examined at bedside. Overnight nursing reports she was able to sleep and was not complaining of pain. Patient was seen this AM sitting up in bed eating her breakfast and smiling. She stated she felt better but noticed that her bag was completely full and leaking slightly. She reported she still had pain every time her right flank would brush up against the bed and when the ostomy contents would leak out. Denied acute complaints of chest pain, SOB, pain /swelling in her legs b/l. Reports her nausea has improved slightly and did not have any episodes of vomiting. Patient was requested a chopped diet and not pureed meals. Objective - Vital Signs/Intake and Output Vital Signs (last 24 hours): Temp Pulse Resp BP Pulse Ox 98.1 F 104 H 20 104/67 100 07/05/17 00:00 07/05/17 00:00 07/05/17 00:00 07/05/17 00:00 07/05/17 00:00 Intake and Output: 07/05/17 07/05/17 06:59 18:59 Intake Total 1380 Output Total 1715 Balance -335 - Medications Medications: Current Medications Acetaminophen (Tylenol 325mg Tab) 650 mg PO Q4 PRN PRN Reason: Pain, Mild (1-3) Last Admin: 07/03/17 11:06 Dose: 650 mg Ascorbic Acid (Vitamin C 500 Mg Tab) 500 mg PO DAILY [facility] Last Admin: 07/04/17 09:25 Dose: 500 mg Dronabinol (Marinol) 5 mg PO BID [facility] Last Admin: 07/04/17 18:53 Dose: 5 mg Enoxaparin Sodium (Lovenox) 30 mg SC DAILY [facility] Last Admin: 07/04/17 09:25 Dose: 30 mg Hydromorphone HCl (Dilaudid) 0.5 mg IVP Q8 PRN PRN Reason: Pain, severe (8-10) Last Admin: 07/04/17 09:25 Dose: 0.5 mg Dextrose/Sodium Chloride (Dextrose 5%/0.9% Ns 1000 Ml) 1,000 mls @ 75 mls/hr IV .[id number] [facility] Last Admin: 07/05/17 01:47 Dose: 75 mls/hr Insulin Aspart (Novolog) 0 unit SC ACHS [facility] PRN Reason: Protocol Last Admin: 07/04/17 21:33 Dose: Not Given Lactobacillus Acidophilus (Bacid Acidophilus) 1 cap PO BID [facility] Last Admin: 07/04/17 18:52 Dose: 1 cap Lidocaine HCl (Xylocaine 2%) 0 ea TOP Q12 [facility] Last Admin: 07/04/17 21:42 Dose: Not Given Magnesium Hydroxide (Milk Of Magnesia) 30 ml PO DAILY PRN PRN Reason: Constipation Metoclopramide HCl (Reglan) 10 mg IVP ACHS PRN PRN Reason: Nausea/Vomiting Mupirocin (Bactroban Ointment) 0 gm TOP DAILY [facility] Last Admin: 07/04/17 09:23 Dose: 1 applic Nystatin (Nystop Topical Powder) 1 applic TOP BID PRN PRN Reason: Rash Last Admin: 07/02/17 13:37 Dose: 1 applic Ondansetron HCl (Zofran Inj) 4 mg IVP Q6 PRN PRN Reason: Nausea/Vomiting Last Admin: 07/03/17 11:05 Dose: 4 mg Pantoprazole Sodium (Protonix Inj) 40 mg IVP DAILY [facility] Last Admin: 07/04/17 09:24 Dose: 40 mg Petrolatum (Desitin Original) 1 gm TOP TID [facility] Last Admin: 07/04/17 18:00 Dose: Not Given Potassium Chloride (Potassium Chloride Oral Soln) 10 meq PO 0800 [facility] Last Admin: 07/04/17 08:32 Dose: Not Given - Labs Labs: 07/05/17 06:08 07/03/17 06:45 PT 11.3 SECONDS (9.7-12.2) 06/20/17 14:44 INR 1.0 06/20/17 14:44 APTT 33 SECONDS (21-34) 06/20/17 14:44 - Constitutional Appears: Cachectic, Chronically Ill - Head Exam Head Exam: ATRAUMATIC, NORMAL INSPECTION, NORMOCEPHALIC - Eye Exam Eye Exam: EOMI, Normal appearance, PERRL. absent: Conjunctival injection, Scleral icterus Pupil Exam: NORMAL ACCOMODATION - ENT Exam ENT Exam: Mucous Membranes Moist - Neck Exam Neck Exam: Full ROM, Normal Inspection - Respiratory Exam Respiratory Exam: NORMAL BREATHING PATTERN. absent: Accessory Muscle Use, Respiratory Distress - Cardiovascular Exam Cardiovascular Exam: Tachycardia, REGULAR RHYTHM, +S1, +S2 - GI/Abdominal Exam GI & Abdominal Exam: Soft, Tenderness Additional comments: ostomy bag in place with watery green output - Back Exam Back Exam: absent: NORMAL INSPECTION Additional comments: b/l nephrostomy tubes noted excoriated skin noted R > L - Neurological Exam Neurological Exam: Alert, Awake, CN II-XII Intact, Oriented x3 - Psychiatric Exam Psychiatric exam: Normal Affect, Normal Mood - Skin Skin Exam: Abrasion, Erythema Assessment and Plan - Assessment and Plan (Free Text) Assessment: 61 year old female PMHx HTN, DM, hyperthyroidism, arthritis, GERD, colitis, ileostomy with colostomy bag placement, and b/l nephrostomy tubes presented to [facility] ED on 06/20/17 from [facility] for leaking ostomy and subsequent skin irritation. GI consulted for intractable nausea and vomiting Plan: Nausea and vomiting - Chest/Abd x-ray: nonobstructive bowel gas - Zofran 4mg ivp q6 prn - Reglan 10mg ivp achs - Protonix 40mg ivp qdaily Diarrhea and Loose stools - stool sent for electrolytes and stool culture - C. Diff negative - Stool leukocytes negative - Milk of Magnesia on hold - Lactobacillus 1 tab po bid Decreased appetite - Marinol 5mg po bid - Chopped diet with thin liquids - Patient encouraged to eat food from home too - Diving Instructor consulted Ileostomy bag and excoriation around area - managed as per wound care, surgery, and primary - reccs from surgery: Lidocaine 2% cream on skin, [place] cream let dry, Flexibel wafer to make a skin tight seal. - change and manage as needed Discussed with Dr. Shyam English PGY2 <Devon Howe - Last Filed: 07/05/17 17:18> Objective - Vital Signs/Intake and Output Vital Signs (last 24 hours): Temp Pulse Resp BP Pulse Ox 98 F 112 H 18 99/67 L 100 07/05/17 15:00 07/05/17 15:00 07/05/17 15:00 07/05/17 15:00 07/05/17 15:00 Intake and Output: 07/05/17 07/05/17 06:59 18:59 Intake Total 1380 Output Total 1715 Balance -335 - Medications Medications: Current Medications Acetaminophen (Tylenol 325mg Tab) 650 mg PO Q4 PRN PRN Reason: Pain, Mild (1-3) Last Admin: 07/03/17 11:06 Dose: 650 mg Ascorbic Acid (Vitamin C 500 Mg Tab) 500 mg PO DAILY [facility] Last Admin: 07/05/17 09:30 Dose: 500 mg Dronabinol (Marinol) 5 mg PO BID [facility] Last Admin: 07/05/17 09:30 Dose: 5 mg Enoxaparin Sodium (Lovenox) 30 mg SC DAILY [facility] Last Admin: 07/05/17 09:30 Dose: 30 mg Hydromorphone HCl (Dilaudid) 0.5 mg IVP Q8 PRN PRN Reason: Pain, severe (8-10) Last Admin: 07/05/17 09:52 Dose: 0.5 mg Dextrose/Sodium Chloride (Dextrose 5%/0.9% Ns 1000 Ml) 1,000 mls @ 75 mls/hr IV .[id number] [facility] Last Admin: 07/05/17 01:47 Dose: 75 mls/hr Insulin Aspart (Novolog) 0 unit SC ACHS [facility] PRN Reason: Protocol Last Admin: 07/05/17 12:01 Dose: 2 unit Lactobacillus Acidophilus (Bacid Acidophilus) 1 cap PO BID [facility] Last Admin: 07/05/17 09:30 Dose: 1 cap Lidocaine HCl (Xylocaine 2%) 0 ea TOP Q12 [facility] Last Admin: 07/05/17 13:01 Dose: Not Given Magnesium Hydroxide (Milk Of Magnesia) 30 ml PO DAILY PRN PRN Reason: Constipation Metoclopramide HCl (Reglan) 10 mg IVP ACHS PRN PRN Reason: Nausea/Vomiting Mupirocin (Bactroban Ointment) 0 gm TOP DAILY [facility] Last Admin: 07/05/17 09:32 Dose: 1 applic Nystatin (Nystop Topical Powder) 1 applic TOP BID PRN PRN Reason: Rash Last Admin: 07/02/17 13:37 Dose: 1 applic Ondansetron HCl (Zofran Inj) 4 mg IVP Q6 PRN PRN Reason: Nausea/Vomiting Last Admin: 07/03/17 11:05 Dose: 4 mg Pantoprazole Sodium (Protonix Inj) 40 mg IVP DAILY [facility] Last Admin: 07/05/17 09:30 Dose: 40 mg Petrolatum (Desitin Original) 1 gm TOP TID [facility] Last Admin: 07/05/17 14:27 Dose: 1 applic Potassium Chloride (Potassium Chloride Oral Soln) 10 meq PO 0800 [facility] Last Admin: 07/05/17 08:01 Dose: Not Given - Labs Labs: 07/05/17 06:08 07/05/17 06:08 PT 11.3 SECONDS (9.7-12.2) 06/20/17 14:44 INR 1.0 06/20/17 14:44 APTT 33 SECONDS (21-34) 06/20/17 14:44 Attending/Attestation - Attestation I have personally seen and examined this patient.: Yes I have fully participated in the care of the patient.: Yes I have reviewed all pertinent clinical information, including history, physical exam and plan: Yes Notes (Text): 07/05/17 17:12 I have seen and examined patient with GI fellow and medical imaging specialist. No acute events overnight, ostomy bag was changed yesterday with improvement in leakage. She continues to endorse pain at ostomy and nephrostomy tube sites but denies nausea, vomiting, fever/chills. She was able to tolerate breakfast this morning without difficulty. Review of vitals from today shows tachycardia. 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 Patient would benefit from endoscopic evaluation as outpatient following resolution of acute medical issues. Will sign off case, please reconsult as necessary, thank you.
[2017-07-05] MEDS: (Novolog) Insulin Aspart, Recombinant 100 u/ml 10 ml vial SC SCH ×4 (08:00→22:21)
[2017-07-05] MEDS: Potassium Chloride 20 mEq/15 ml LIQ UD PO SCH (08:01)
[2017-07-05 08:18] LABS: ALB/GLOB RATIO 0.5 (1.0-2.1); ALKALINE PHOSPHATASE 134 U/L (38-126); ALT/SGPT 31 U/L (9-52); AST/SGOT 26 U/L (14-36); BILIRUBIN,TOTAL 0.4 mg/dL (0.2-1.3); BLOOD UREA NITROGEN 15 mg/dL (7-17); CALCIUM 7.3 mg/dl (8.6-10.4); CARBON DIOXIDE 22 mmol/L (22-30); CHLORIDE 104 mmol/L (98-107); GFR AFRICAN-AMERICAN > 60; GLUCOSE,RANDOM 185 mg/dL (65-105); POTASSIUM 4.7 mmol/L (3.6-5.2); SODIUM 128 mmol/L (132-148); TOTAL PROTEIN 5.7 g/dL (6.3-8.3)
[2017-07-05] MEDS: Lactobacillus Acidophilus 500 MU Cap PO SCH ×2 (09:30→17:58)
[2017-07-05] MEDS: Enoxaparin 30 mg Syringe SC SCH (09:30)
[2017-07-05] MEDS: Zinc Oxide Topical 30 gm Tube TOP SCH ×3 (09:32→18:24)
--- NOTE | 2017-07-05 09:53 | CP.PCM.PN ---
Subjective - Date & Time of Evaluation Date of Evaluation: 07/05/17 Time of Evaluation: 09:49 - Subjective Subjective: PGY2 medicine progress note for Dr. Higgins's service Patient seen and examined. Patient able to tolerate eating some soft food this morning without vomiting or spitting up. Patient with less pain around stoma. Patient noted to be laying on right side in bed frequently which may be possible contributor to ileostomy bag leak. Objective - Vital Signs/Intake and Output Vital Signs (last 24 hours): Temp Pulse Resp BP Pulse Ox 97.7 F 114 H 20 98/72 L 100 07/05/17 07:19 07/05/17 07:19 07/05/17 07:19 07/05/17 07:19 07/05/17 07:19 Intake and Output: 07/05/17 07/05/17 06:59 18:59 Intake Total 1380 Output Total 1715 Balance -335 - Medications Medications: Current Medications Acetaminophen (Tylenol 325mg Tab) 650 mg PO Q4 PRN PRN Reason: Pain, Mild (1-3) Last Admin: 07/03/17 11:06 Dose: 650 mg Ascorbic Acid (Vitamin C 500 Mg Tab) 500 mg PO DAILY [facility] Last Admin: 07/05/17 09:30 Dose: 500 mg Dronabinol (Marinol) 5 mg PO BID [facility] Last Admin: 07/05/17 09:30 Dose: 5 mg Enoxaparin Sodium (Lovenox) 30 mg SC DAILY [facility] Last Admin: 07/05/17 09:30 Dose: 30 mg Hydromorphone HCl (Dilaudid) 0.5 mg IVP Q8 PRN PRN Reason: Pain, severe (8-10) Last Admin: 07/04/17 09:25 Dose: 0.5 mg Dextrose/Sodium Chloride (Dextrose 5%/0.9% Ns 1000 Ml) 1,000 mls @ 75 mls/hr IV .[id number] [facility] Last Admin: 07/05/17 01:47 Dose: 75 mls/hr Insulin Aspart (Novolog) 0 unit SC ACHS [facility] PRN Reason: Protocol Last Admin: 07/05/17 08:00 Dose: 1 unit Lactobacillus Acidophilus (Bacid Acidophilus) 1 cap PO BID [facility] Last Admin: 07/05/17 09:30 Dose: 1 cap Lidocaine HCl (Xylocaine 2%) 0 ea TOP Q12 [facility] Last Admin: 07/04/17 21:42 Dose: Not Given Magnesium Hydroxide (Milk Of Magnesia) 30 ml PO DAILY PRN PRN Reason: Constipation Metoclopramide HCl (Reglan) 10 mg IVP ACHS PRN PRN Reason: Nausea/Vomiting Mupirocin (Bactroban Ointment) 0 gm TOP DAILY [facility] Last Admin: 07/05/17 09:32 Dose: 1 applic Nystatin (Nystop Topical Powder) 1 applic TOP BID PRN PRN Reason: Rash Last Admin: 07/02/17 13:37 Dose: 1 applic Ondansetron HCl (Zofran Inj) 4 mg IVP Q6 PRN PRN Reason: Nausea/Vomiting Last Admin: 07/03/17 11:05 Dose: 4 mg Pantoprazole Sodium (Protonix Inj) 40 mg IVP DAILY [facility] Last Admin: 07/05/17 09:30 Dose: 40 mg Petrolatum (Desitin Original) 1 gm TOP TID [facility] Last Admin: 07/05/17 09:32 Dose: 1 applic Potassium Chloride (Potassium Chloride Oral Soln) 10 meq PO 0800 [facility] Last Admin: 07/05/17 08:01 Dose: Not Given - Labs Labs: 07/05/17 06:08 07/05/17 06:08 PT 11.3 SECONDS (9.7-12.2) 06/20/17 14:44 INR 1.0 06/20/17 14:44 APTT 33 SECONDS (21-34) 06/20/17 14:44 - Constitutional Appears: No Acute Distress, Cachectic, Chronically Ill - Head Exam Head Exam: ATRAUMATIC, NORMOCEPHALIC - Eye Exam Eye Exam: EOMI - ENT Exam ENT Exam: Mucous Membranes Dry - Respiratory Exam Respiratory Exam: Clear to Ausculation Bilateral - Cardiovascular Exam Cardiovascular Exam: +S1, +S2 - GI/Abdominal Exam GI & Abdominal Exam: Soft Additional comments: erythematous skin around stoma, small leak in ileostomy bag - Back Exam Additional comments: b/l nephrostomy tubes - Neurological Exam Neurological Exam: Alert, Awake - Skin Skin Exam: Warm Assessment and Plan - Assessment and Plan (Free Text) Assessment: Cellulitis ostomy site- continue marathon skin protectant around ostomy, lidocaine 5% cream around ileostomy site ID, Dr. Miranda- recs appreciated antibiotics discontinued as per Dr. Miranda's note from 07/02/17 continue mupirocin topical ointment 07/04/17: WBC normalized at 7.9 Afebrile Blood Cx: no growth after 5 days Vomiting continue zofran 4mg IV q6prn Dr. Howe, GI, consulted- help appreciated starting reglan 10mg IV ACHS stool studies ordered- C. diff and stool leukocytes negative 07/03/17- chest/ abdomen xray- non-obstructive bowel gas pattern Poor appetite/ malnutrition continue marinol chopped diet continue zofran prn for nausea continue D5 NS @ 75cc/h continue ascorbic acid 500mg daily Transaminitis- Improving AST/ALT: 52/62 continue to monitor History colovesicular fistula following hysterectomy pt developed fistula which was resected at [facility] [place] [place] pt has had b/l nephrostomy tubes placed due to complications from surgery Diabetes continue ISS continue novolog 70/30 10u BID Electrolyte imbalance continue to monitor and replete as necessary hyponatremia improved 121->124->126->128 Prophylaxis continue lovenox 30mg sc daily continue protonix 40mg IV daily Case discussed with Dr. Higgins All management as per Dr. Higgins
[2017-07-05] MEDS: Lidocaine 2% Jelly (30 ml) TOP SCH ×2 (13:01→22:21)
--- NOTE | 2017-07-05 19:44 | CP.PCM.PN ---
Subjective - Date & Time of Evaluation Date of Evaluation: 07/05/17 Time of Evaluation: 03:15 - Subjective Subjective: dictated Objective - Vital Signs/Intake and Output Vital Signs (last 24 hours): Temp Pulse Resp BP Pulse Ox 98 F 112 H 18 99/67 L 100 07/05/17 15:00 07/05/17 15:00 07/05/17 15:00 07/05/17 15:00 07/05/17 15:00 - Medications Medications: Current Medications Acetaminophen (Tylenol 325mg Tab) 650 mg PO Q4 PRN PRN Reason: Pain, Mild (1-3) Last Admin: 07/03/17 11:06 Dose: 650 mg Ascorbic Acid (Vitamin C 500 Mg Tab) 500 mg PO DAILY [facility] Last Admin: 07/05/17 09:30 Dose: 500 mg Dronabinol (Marinol) 5 mg PO BID [facility] Last Admin: 07/05/17 17:56 Dose: 5 mg Enoxaparin Sodium (Lovenox) 30 mg SC DAILY [facility] Last Admin: 07/05/17 09:30 Dose: 30 mg Hydromorphone HCl (Dilaudid) 0.5 mg IVP Q8 PRN PRN Reason: Pain, severe (8-10) Last Admin: 07/05/17 17:55 Dose: 0.5 mg Dextrose/Sodium Chloride (Dextrose 5%/0.9% Ns 1000 Ml) 1,000 mls @ 75 mls/hr IV .[id number] [facility] Last Admin: 07/05/17 01:47 Dose: 75 mls/hr Insulin Aspart (Novolog) 0 unit SC ACHS [facility] PRN Reason: Protocol Last Admin: 07/05/17 16:30 Dose: 2 unit Lactobacillus Acidophilus (Bacid Acidophilus) 1 cap PO BID [facility] Last Admin: 07/05/17 17:58 Dose: 1 cap Lidocaine HCl (Xylocaine 2%) 0 ea TOP Q12 [facility] Last Admin: 07/05/17 13:01 Dose: Not Given Magnesium Hydroxide (Milk Of Magnesia) 30 ml PO DAILY PRN PRN Reason: Constipation Metoclopramide HCl (Reglan) 10 mg IVP ACHS PRN PRN Reason: Nausea/Vomiting Mupirocin (Bactroban Ointment) 0 gm TOP DAILY [facility] Last Admin: 07/05/17 09:32 Dose: 1 applic Nystatin (Nystop Topical Powder) 1 applic TOP BID PRN PRN Reason: Rash Last Admin: 07/02/17 13:37 Dose: 1 applic Ondansetron HCl (Zofran Inj) 4 mg IVP Q6 PRN PRN Reason: Nausea/Vomiting Last Admin: 07/03/17 11:05 Dose: 4 mg Pantoprazole Sodium (Protonix Inj) 40 mg IVP DAILY [facility] Last Admin: 07/05/17 09:30 Dose: 40 mg Petrolatum (Desitin Original) 1 gm TOP TID [facility] Last Admin: 07/05/17 14:27 Dose: 1 applic Potassium Chloride (Potassium Chloride Oral Soln) 10 meq PO 0800 [facility] Last Admin: 07/05/17 08:01 Dose: Not Given - Labs Labs: 07/05/17 06:08 07/05/17 06:08 PT 11.3 SECONDS (9.7-12.2) 06/20/17 14:44 INR 1.0 06/20/17 14:44 APTT 33 SECONDS (21-34) 06/20/17 14:44
--- NOTE | 2017-07-05 19:45 | CP.PCM.PN ---
Subjective - Date & Time of Evaluation Date of Evaluation: 07/05/17 Time of Evaluation: 07:00 - Subjective Subjective: clinically same Objective - Vital Signs/Intake and Output Vital Signs (last 24 hours): Temp Pulse Resp BP Pulse Ox 98 F 112 H 18 99/67 L 100 07/05/17 15:00 07/05/17 15:00 07/05/17 15:00 07/05/17 15:00 07/05/17 15:00 - Medications Medications: Current Medications Acetaminophen (Tylenol 325mg Tab) 650 mg PO Q4 PRN PRN Reason: Pain, Mild (1-3) Last Admin: 07/03/17 11:06 Dose: 650 mg Ascorbic Acid (Vitamin C 500 Mg Tab) 500 mg PO DAILY [facility] Last Admin: 07/05/17 09:30 Dose: 500 mg Dronabinol (Marinol) 5 mg PO BID [facility] Last Admin: 07/05/17 17:56 Dose: 5 mg Enoxaparin Sodium (Lovenox) 30 mg SC DAILY [facility] Last Admin: 07/05/17 09:30 Dose: 30 mg Hydromorphone HCl (Dilaudid) 0.5 mg IVP Q8 PRN PRN Reason: Pain, severe (8-10) Last Admin: 07/05/17 17:55 Dose: 0.5 mg Dextrose/Sodium Chloride (Dextrose 5%/0.9% Ns 1000 Ml) 1,000 mls @ 75 mls/hr IV .[id number] [facility] Last Admin: 07/05/17 01:47 Dose: 75 mls/hr Insulin Aspart (Novolog) 0 unit SC ACHS [facility] PRN Reason: Protocol Last Admin: 07/05/17 16:30 Dose: 2 unit Lactobacillus Acidophilus (Bacid Acidophilus) 1 cap PO BID [facility] Last Admin: 07/05/17 17:58 Dose: 1 cap Lidocaine HCl (Xylocaine 2%) 0 ea TOP Q12 [facility] Last Admin: 07/05/17 13:01 Dose: Not Given Magnesium Hydroxide (Milk Of Magnesia) 30 ml PO DAILY PRN PRN Reason: Constipation Metoclopramide HCl (Reglan) 10 mg IVP ACHS PRN PRN Reason: Nausea/Vomiting Mupirocin (Bactroban Ointment) 0 gm TOP DAILY [facility] Last Admin: 07/05/17 09:32 Dose: 1 applic Nystatin (Nystop Topical Powder) 1 applic TOP BID PRN PRN Reason: Rash Last Admin: 07/02/17 13:37 Dose: 1 applic Ondansetron HCl (Zofran Inj) 4 mg IVP Q6 PRN PRN Reason: Nausea/Vomiting Last Admin: 07/03/17 11:05 Dose: 4 mg Pantoprazole Sodium (Protonix Inj) 40 mg IVP DAILY [facility] Last Admin: 07/05/17 09:30 Dose: 40 mg Petrolatum (Desitin Original) 1 gm TOP TID [facility] Last Admin: 07/05/17 14:27 Dose: 1 applic Potassium Chloride (Potassium Chloride Oral Soln) 10 meq PO 0800 [facility] Last Admin: 07/05/17 08:01 Dose: Not Given - Labs Labs: 07/05/17 06:08 07/05/17 06:08 PT 11.3 SECONDS (9.7-12.2) 06/20/17 14:44 INR 1.0 06/20/17 14:44 APTT 33 SECONDS (21-34) 06/20/17 14:44 Assessment and Plan (1) Abdominal wall pain Status: Acute (2) Ileostomy care Status: Acute (3) Colonic fistula Status: Acute (4) Dehydration Status: Acute (5) Displacement of Mckeon catheter Status: Acute (6) Ileostomy bag changed Status: Acute (7) Urinary tract infection Status: Acute
--- NOTE | 2017-07-05 22:59 | PN ---
DATE: SUBJECTIVE: The patient was seen today. She has been eating better now and denied any vomiting. No abdominal pain. Less pain around the stoma of the colostomy and she has a bag now. She states that the bag was drained and there is still some excoriation of the abdominal wall due to leakage of the bag and sometime she refuses and she has bilateral nephrostomy tubes. PHYSICAL EXAMINATION: VITAL SIGNS: T-max was 97.7, pulse of 114, blood pressure 98/72, respirations are 20. HEENT: Head is atraumatic, normocephalic. NECK: Supple. LUNGS: Clear. No crackles or rales present. HEART: S1 and S2 is tachycardic. ABDOMEN: Has a colostomy bag and dermatitis on the fold due to the leakage of the colostomy contents and she has bilateral nephrostomy tubes. EXTREMITIES: Have no edema. LABORATORY DATA: White count is 7.9, hemoglobin 11.4, hematocrit 34.7, platelet count is 259, BUN is 15, creatinine 0.6. IMP: Patient admitted with dermatitis of abdominal wall due to leakage from ilestomy bag and also has bilateral nephrostomy tube We have discontinued the antibiotics that she was vomiting secondary to those and was not eating much. At this time, to continue local care of the skin. Erlin Miranda MD [facility]
[2017-07-06] MEDS: (Novolog) Insulin Aspart, Recombinant 100 u/ml 10 ml vial SC SCH ×4 (08:10→21:26)
[2017-07-06] MEDS: Potassium Chloride 20 mEq/15 ml LIQ UD PO SCH (08:12)
[2017-07-06] MEDS: Zinc Oxide Topical 30 gm Tube TOP SCH ×3 (10:50→18:21)
[2017-07-06] MEDS: Enoxaparin 30 mg Syringe SC SCH (10:50)
[2017-07-06] MEDS: Lactobacillus Acidophilus 500 MU Cap PO SCH ×2 (10:50→18:21)
[2017-07-06] MEDS ORDERED: Lidocaine 5% Oint(35 gm) TOP ONE (11:00)
[2017-07-06] MEDS: Lidocaine 2% Jelly (30 ml) TOP SCH ×2 (14:51→21:20)
[2017-07-06] MEDS: Dextrose 5%/0.9% NS 1,000 ML IV SCH ×2 (15:00→17:20)
--- NOTE | 2017-07-06 17:23 | CP.PCM.PN ---
Subjective - Date & Time of Evaluation Date of Evaluation: 07/06/17 Time of Evaluation: 07:00 - Subjective Subjective: clinically same Objective - Vital Signs/Intake and Output Vital Signs (last 24 hours): Temp Pulse Resp BP Pulse Ox 98.1 F 112 H 18 95/60 L 99 07/06/17 15:00 07/06/17 15:00 07/06/17 15:00 07/06/17 15:00 07/06/17 15:00 Intake and Output: 07/06/17 07/06/17 06:59 18:59 Intake Total 1640 Output Total 1480 Balance 160 - Medications Medications: Current Medications Acetaminophen (Tylenol 325mg Tab) 650 mg PO Q4 PRN PRN Reason: Pain, Mild (1-3) Last Admin: 07/03/17 11:06 Dose: 650 mg Ascorbic Acid (Vitamin C 500 Mg Tab) 500 mg PO DAILY [facility] Last Admin: 07/06/17 10:50 Dose: 500 mg Dronabinol (Marinol) 5 mg PO BID [facility] Last Admin: 07/06/17 10:59 Dose: 5 mg Enoxaparin Sodium (Lovenox) 30 mg SC DAILY [facility] Last Admin: 07/06/17 10:50 Dose: 30 mg Hydromorphone HCl (Dilaudid) 0.5 mg IVP Q8 PRN PRN Reason: Pain, severe (8-10) Last Admin: 07/05/17 17:55 Dose: 0.5 mg Hydromorphone HCl (Dilaudid) 0.5 mg IVP Q4H PRN PRN Reason: Pain, severe (8-10) Last Admin: 07/06/17 13:13 Dose: 0.5 mg Dextrose/Sodium Chloride (Dextrose 5%/0.9% Ns 1000 Ml) 1,000 mls @ 75 mls/hr IV .[id number] [facility] Last Admin: 07/05/17 15:10 Dose: 75 mls/hr Insulin Aspart (Novolog) 0 unit SC ACHS [facility] PRN Reason: Protocol Last Admin: 07/06/17 11:40 Dose: Not Given Lactobacillus Acidophilus (Bacid Acidophilus) 1 cap PO BID [facility] Last Admin: 07/06/17 10:50 Dose: 1 cap Lidocaine HCl (Xylocaine 2%) 0 ea TOP Q12 [facility] Last Admin: 07/06/17 14:51 Dose: Not Given Magnesium Hydroxide (Milk Of Magnesia) 30 ml PO DAILY PRN PRN Reason: Constipation Metoclopramide HCl (Reglan) 10 mg IVP ACHS PRN PRN Reason: Nausea/Vomiting Mupirocin (Bactroban Ointment) 0 gm TOP DAILY [facility] Last Admin: 07/06/17 10:51 Dose: 1 applic Nystatin (Nystop Topical Powder) 1 applic TOP BID PRN PRN Reason: Rash Last Admin: 07/02/17 13:37 Dose: 1 applic Ondansetron HCl (Zofran Inj) 4 mg IVP Q6 PRN PRN Reason: Nausea/Vomiting Last Admin: 07/03/17 11:05 Dose: 4 mg Pantoprazole Sodium (Protonix Inj) 40 mg IVP DAILY [facility] Last Admin: 07/06/17 10:50 Dose: 40 mg Petrolatum (Desitin Original) 1 gm TOP TID [facility] Last Admin: 07/06/17 14:50 Dose: 1 applic Potassium Chloride (Potassium Chloride Oral Soln) 10 meq PO 0800 [facility] Last Admin: 07/06/17 08:12 Dose: Not Given - Labs Labs: 07/05/17 06:08 07/05/17 06:08 PT 11.3 SECONDS (9.7-12.2) 06/20/17 14:44 INR 1.0 06/20/17 14:44 APTT 33 SECONDS (21-34) 06/20/17 14:44 Assessment and Plan (1) Abdominal wall pain Status: Acute (2) Ileostomy care Status: Acute (3) Colonic fistula Status: Acute (4) Dehydration Status: Acute (5) Displacement of Mckeon catheter Status: Acute (6) Ileostomy bag changed Status: Acute (7) Urinary tract infection Status: Acute
[2017-07-07 06:22] LABS: BASO % 0.3 % (0.0-2.0); EOS # 0.1 K/uL (0.0-0.7); EOS % 1.8 % (0.0-4.0); HEMATOCRIT 36.1 % (34.0-47.0); LYMPH # 2.1 K/uL (1.0-4.3); LYMPH % 30.1 % (20.0-40.0); MEAN CELL VOLUME 83.7 fL (81.0-99.0); MEAN CORPUSCULAR HEMOGLOBIN 27.9 pg (27.0-31.0); MEAN CORPUSCULAR HGB CONC 33.3 g/dL (33.0-37.0); MEAN PLATELET VOLUME 7.7 fL (7.2-11.7); MONO # 0.5 K/uL (0.0-0.8); MONO % 7.8 % (0.0-10.0); NRBC % 0.1 % (0.0-2.0); RED CELL DISTRIBUTION WIDTH 15.2 % (11.5-14.5)
[2017-07-07] MEDS: Dextrose 5%/0.9% NS 1,000 ML IV SCH (07:23)
[2017-07-07] MEDS: Potassium Chloride 20 mEq/15 ml LIQ UD PO SCH (07:59)
[2017-07-07 08:05] LABS: BLOOD UREA NITROGEN 8 mg/dL (7-17); CALCIUM 7.8 mg/dl (8.6-10.4); CARBON DIOXIDE 27 mmol/L (22-30); CHLORIDE 102 mmol/L (98-107); GFR AFRICAN-AMERICAN > 60; GLUCOSE,RANDOM 145 mg/dL (65-105); POTASSIUM 3.7 mmol/L (3.6-5.2); SODIUM 130 mmol/L (132-148)
[2017-07-07] MEDS: (Novolog) Insulin Aspart, Recombinant 100 u/ml 10 ml vial SC SCH ×3 (08:15→17:17)
[2017-07-07] MEDS: Lactobacillus Acidophilus 500 MU Cap PO SCH ×2 (09:42→17:16)
[2017-07-07] MEDS: Enoxaparin 30 mg Syringe SC SCH (09:43)
[2017-07-07] MEDS: Zinc Oxide Topical 30 gm Tube TOP SCH ×3 (09:44→17:16)
[2017-07-07] MEDS: Lidocaine 2% Jelly (30 ml) TOP SCH (09:44)
--- NOTE | 2017-07-07 10:12 | CP.PCM.PN ---
Subjective - Date & Time of Evaluation Date of Evaluation: 07/07/17 Time of Evaluation: 10:08 - Subjective Subjective: PGY2 medicine progress note Patient seen and examined. Patient tolerating diet better and there are no more episodes of vomiting. Patient's ileostomy bag is still leaking. Objective - Vital Signs/Intake and Output Vital Signs (last 24 hours): Temp Pulse Resp BP Pulse Ox 98.3 F 116 H 20 86/59 L 100 07/07/17 07:54 07/07/17 07:54 07/07/17 07:54 07/07/17 07:54 07/07/17 07:54 Intake and Output: 07/07/17 07/07/17 06:59 18:59 Intake Total 800 Output Total 700 Balance 100 - Medications Medications: Current Medications Acetaminophen (Tylenol 325mg Tab) 650 mg PO Q4 PRN PRN Reason: Pain, Mild (1-3) Last Admin: 07/03/17 11:06 Dose: 650 mg Ascorbic Acid (Vitamin C 500 Mg Tab) 500 mg PO DAILY [facility] Last Admin: 07/07/17 09:42 Dose: 500 mg Dronabinol (Marinol) 5 mg PO BID [facility] Last Admin: 07/07/17 09:42 Dose: 5 mg Enoxaparin Sodium (Lovenox) 30 mg SC DAILY [facility] Last Admin: 07/07/17 09:43 Dose: 30 mg Hydromorphone HCl (Dilaudid) 0.5 mg IVP Q8 PRN PRN Reason: Pain, severe (8-10) Last Admin: 07/05/17 17:55 Dose: 0.5 mg Hydromorphone HCl (Dilaudid) 0.5 mg IVP Q4H PRN PRN Reason: Pain, severe (8-10) Last Admin: 07/07/17 06:09 Dose: 0.5 mg Dextrose/Sodium Chloride (Dextrose 5%/0.9% Ns 1000 Ml) 1,000 mls @ 75 mls/hr IV .[id number] [facility] Last Admin: 07/07/17 07:23 Dose: Not Given Insulin Aspart (Novolog) 0 unit SC ACHS [facility] PRN Reason: Protocol Last Admin: 07/07/17 08:15 Dose: Not Given Lactobacillus Acidophilus (Bacid Acidophilus) 1 cap PO BID [facility] Last Admin: 07/07/17 09:42 Dose: 1 cap Lidocaine HCl (Xylocaine 2%) 0 ea TOP Q12 [facility] Last Admin: 07/07/17 09:44 Dose: Not Given Magnesium Hydroxide (Milk Of Magnesia) 30 ml PO DAILY PRN PRN Reason: Constipation Metoclopramide HCl (Reglan) 10 mg IVP ACHS PRN PRN Reason: Nausea/Vomiting Mupirocin (Bactroban Ointment) 0 gm TOP DAILY [facility] Last Admin: 07/07/17 09:42 Dose: 1 applic Nystatin (Nystop Topical Powder) 1 applic TOP BID PRN PRN Reason: Rash Last Admin: 07/02/17 13:37 Dose: 1 applic Ondansetron HCl (Zofran Inj) 4 mg IVP Q6 PRN PRN Reason: Nausea/Vomiting Last Admin: 07/03/17 11:05 Dose: 4 mg Pantoprazole Sodium (Protonix Inj) 40 mg IVP DAILY [facility] Last Admin: 07/07/17 09:43 Dose: 40 mg Petrolatum (Desitin Original) 1 gm TOP TID [facility] Last Admin: 07/07/17 09:44 Dose: 1 applic Potassium Chloride (Potassium Chloride Oral Soln) 10 meq PO 0800 [facility] Last Admin: 07/07/17 07:59 Dose: Not Given - Labs Labs: 07/07/17 06:16 07/07/17 06:16 PT 11.3 SECONDS (9.7-12.2) 06/20/17 14:44 INR 1.0 06/20/17 14:44 APTT 33 SECONDS (21-34) 06/20/17 14:44 - Constitutional Appears: No Acute Distress, Cachectic, Chronically Ill - Head Exam Head Exam: ATRAUMATIC, NORMOCEPHALIC - Eye Exam Eye Exam: EOMI - ENT Exam ENT Exam: Mucous Membranes Dry - Respiratory Exam Respiratory Exam: Clear to Ausculation Bilateral - Cardiovascular Exam Cardiovascular Exam: +S1, +S2 - GI/Abdominal Exam GI & Abdominal Exam: Soft Additional comments: ileostomy bag leaking on upper flank mildly erythematous skin on flank - Extremities Exam Extremities Exam: Normal Inspection - Neurological Exam Neurological Exam: Alert, Awake - Skin Skin Exam: Warm Assessment and Plan - Assessment and Plan (Free Text) Assessment: Cellulitis ostomy site- continue [place] skin protectant around ostomy, lidocaine 5% cream around ileostomy site ID, Dr. Miranda- recs appreciated antibiotics discontinued as per Dr. Miranda's note from 07/02/17 continue mupirocin topical ointment 07/07/17: WBC normalized at 7.0 Afebrile Blood Cx: no growth after 5 days Vomiting resolved continue zofran 4mg IV q6prn Dr. Howe, GI, consulted- help appreciated starting reglan 10mg IV ACHS stool studies ordered- negative 07/03/17- chest/ abdomen xray- non-obstructive bowel gas pattern Poor appetite/ malnutrition continue marinol chopped diet continue zofran prn for nausea continue D5 NS @ 75cc/h continue ascorbic acid 500mg daily Transaminitis- Improving normalized continue to monitor History colovesicular fistula following hysterectomy pt developed fistula which was resected at [facility] pt has had b/l nephrostomy tubes placed due to complications from surgery Diabetes continue ISS continue novolog 70/30 10u BID Electrolyte imbalance continue to monitor and replete as necessary hyponatremia improved 121->124->126->128->130 Prophylaxis continue lovenox 30mg sc daily continue protonix 40mg IV daily Case discussed with Dr. Higgins All management as per Dr. Higgins Patient is stable for discharge back to [facility] per Dr. Higgins. Patient is to continue the current medication regimen at [facility]. For ostomy care, apply [place] skin protectant or other barrier cream around ostomy appliance and apply topical lidocaine 2% cream around ileostomy site for local anesthesia as needed. Patient should return to the ER if symptoms worsen or reoccur.
[2017-07-07 17:16] VITALS: BP 109/76; PULSE 103; RESP 18; TEMP 97.5; O2SAT 99
--- NOTE | 2017-07-07 19:29 | CP.PCM.PN ---
Subjective - Date & Time of Evaluation Date of Evaluation: 07/07/17 Time of Evaluation: 07:00 - Subjective Subjective: clinically same Objective - Vital Signs/Intake and Output Vital Signs (last 24 hours): Temp Pulse Resp BP Pulse Ox 97.5 F L 103 H 18 109/76 99 07/07/17 15:40 07/07/17 15:40 07/07/17 15:40 07/07/17 15:40 07/07/17 15:40 Intake and Output: 07/07/17 07/08/17 18:59 06:59 Intake Total 960 Output Total 1100 Balance -140 - Medications Medications: Current Medications Acetaminophen (Tylenol 325mg Tab) 650 mg PO Q4 PRN PRN Reason: Pain, Mild (1-3) Last Admin: 07/03/17 11:06 Dose: 650 mg Ascorbic Acid (Vitamin C 500 Mg Tab) 500 mg PO DAILY [facility] Last Admin: 07/07/17 09:42 Dose: 500 mg Dronabinol (Marinol) 5 mg PO BID [facility] Last Admin: 07/07/17 17:16 Dose: 5 mg Enoxaparin Sodium (Lovenox) 30 mg SC DAILY [facility] Last Admin: 07/07/17 09:43 Dose: 30 mg Hydromorphone HCl (Dilaudid) 0.5 mg IVP Q8 PRN PRN Reason: Pain, severe (8-10) Last Admin: 07/05/17 17:55 Dose: 0.5 mg Dextrose/Sodium Chloride (Dextrose 5%/0.9% Ns 1000 Ml) 1,000 mls @ 75 mls/hr IV .[id number] [facility] Last Admin: 07/07/17 07:23 Dose: Not Given Insulin Aspart (Novolog) 0 unit SC ACHS [facility] PRN Reason: Protocol Last Admin: 07/07/17 17:17 Dose: 2 unit Lactobacillus Acidophilus (Bacid Acidophilus) 1 cap PO BID [facility] Last Admin: 07/07/17 17:16 Dose: 1 cap Lidocaine HCl (Xylocaine 2%) 0 ea TOP Q12 [facility] Last Admin: 07/07/17 09:44 Dose: Not Given Magnesium Hydroxide (Milk Of Magnesia) 30 ml PO DAILY PRN PRN Reason: Constipation Metoclopramide HCl (Reglan) 10 mg IVP ACHS PRN PRN Reason: Nausea/Vomiting Mupirocin (Bactroban Ointment) 0 gm TOP DAILY [facility] Last Admin: 07/07/17 09:42 Dose: 1 applic Nystatin (Nystop Topical Powder) 1 applic TOP BID PRN PRN Reason: Rash Last Admin: 07/02/17 13:37 Dose: 1 applic Ondansetron HCl (Zofran Inj) 4 mg IVP Q6 PRN PRN Reason: Nausea/Vomiting Last Admin: 07/03/17 11:05 Dose: 4 mg Pantoprazole Sodium (Protonix Inj) 40 mg IVP DAILY [facility] Last Admin: 07/07/17 09:43 Dose: 40 mg Petrolatum (Desitin Original) 1 gm TOP TID [facility] Last Admin: 07/07/17 17:16 Dose: 1 applic Potassium Chloride (Potassium Chloride Oral Soln) 10 meq PO 0800 [facility] Last Admin: 07/07/17 07:59 Dose: Not Given - Labs Labs: 07/07/17 06:16 07/07/17 06:16 PT 11.3 SECONDS (9.7-12.2) 06/20/17 14:44 INR 1.0 06/20/17 14:44 APTT 33 SECONDS (21-34) 06/20/17 14:44 Assessment and Plan (1) Abdominal wall pain Status: Acute (2) Ileostomy care Status: Acute (3) Colonic fistula Status: Acute (4) Dehydration Status: Acute (5) Displacement of Mckeon catheter Status: Acute (6) Ileostomy bag changed Status: Acute (7) Urinary tract infection Status: Acute
== END 2017-07-07 21:00 | DRG 188 ==
LOC: C.ER 13:23 → C.9E 14:55 → C.3T 16:53
PROVIDERS: ADMIT Internal Medicine Nephrology; ATTEND Internal Medicine Nephrology
DX: K94.12 Enterostomy infection (principal); E05.90 Thyrotoxicosis, unspecified without thyrotoxic crisis or storm; E46 Unspecified protein-calorie malnutrition; E87.1 Hypo-osmolality and hyponatremia; L03.311 Cellulitis of abdominal wall; N13.4 Hydroureter; E86.0 Dehydration; N39.0 Urinary tract infection, site not specified; K94.13 Enterostomy malfunction; E11.9 Type 2 diabetes mellitus without complications; K52.9 Noninfective gastroenteritis and colitis, unspecified; K21.9 Gastro-esophageal reflux disease without esophagitis; I10 Essential (primary) hypertension; T83.021A Displacement of indwelling urethral catheter, initial encounter; Y73.8 Miscellaneous gastroenterology and urology devices associated with adverse incidents, not elsewhere classified; Z90.710 Acquired absence of both cervix and uterus

== ENCOUNTER 2017-07-08 16:38 | Inpatient (IN) | payer OTHER ==
[2017-07-08 16:39] VITALS: BMI 17.6
[2017-07-08] MEDS ORDERED: HYDROmorphone 0.5 mg/0.5 ml ISec IVP PRN (17:52)
--- NOTE | 2017-07-08 18:19 | C.PDOC ---
History Of Present Illness Patient is a 61 y/o female who presents to the ED from halfway (recently discharged there) with a complaint of a leaking right lower abdominal iliostomy. Prior eval is for regualar modified iliostomy dressing changes. Patient was recently admitted for the same symptoms, planning relocation of right iliostomy. No other physical complaints at this time. Time Seen by Provider: 07/08/17 17:41 Chief Complaint (Nursing): GI Problem History Per: Patient History/Exam Limitations: no limitations Current Symptoms Are (Timing): Still Present Reports Recently: Seen In ED Recent travel outside of the [place]: No Past Medical History Reviewed: Historical Data, Nursing Documentation, Vital Signs Vital Signs: Last Vital Signs Temp 98.2 F 07/08/17 16:50 Pulse 129 H 07/08/17 16:50 Resp 21 07/08/17 16:50 BP 105/58 L 07/08/17 16:50 Pulse Ox 100 07/08/17 18:32 - Medical History PMH: Arthritis (back), HTN, Hyperthyroidism Denies: Chronic Kidney Disease - [facility] Procedures BYPASS ILEUM TO CUTANEOUS, OPEN APPROACH (04/04/17) CHANGE DRAINAGE DEVICE IN KIDNEY, EXTERNAL APPROACH (06/05/17) COMPRESSION OF ABDOMINAL WALL USING PRESSURE DRESSING (04/04/17) DRAINAGE OF ABDOMEN SKIN, EXTERNAL APPROACH, DIAGNOSTIC (04/04/17) DRAINAGE OF LEFT KIDNEY PELVIS WITH DRAIN DEV, PERC APPROACH (06/05/17) DRAINAGE OF PERITONEAL CAVITY WITH DRAIN DEV, OPEN APPROACH (04/04/17) EXCISION OF ABDOMEN SKIN, EXTERNAL APPROACH (04/04/17) EXCISION OF ILEUM, OPEN APPROACH (04/04/17) EXTIRPATION OF MATTER FROM R LG INTEST, OPEN APPROACH (04/04/17) INSERTION OF FEEDING DEVICE INTO STOMACH, OPEN APPROACH (04/04/17) INTRODUCTION OF NUTRITIONAL INTO UP GI, VIA OPENING (04/04/17) RELEASE PERITONEUM, OPEN APPROACH (04/04/17) REPAIR BLADDER, OPEN APPROACH (04/04/17) RESECTION OF APPENDIX, OPEN APPROACH (04/04/17) Family History: States: Unknown Family Hx - Social History Hx Alcohol Use: No Hx Substance Use: No - Immunization History Hx Tetanus Toxoid Vaccination: No Hx Influenza Vaccination: No Hx Pneumococcal Vaccination: No Review Of Systems Gastrointestinal: Positive for: Other (leaking right lower abdominal colostomy) Physical Exam - Physical Exam Appears: Well, Non-toxic, No Acute Distress, Other (thin) Skin: Normal Color, Warm, Dry Head: Atraumatic, Normacephalic Oral Mucosa: Moist Teeth: Edentulous Chest: Symmetrical Cardiovascular: Rhythm Regular, No Murmur Respiratory: Normal Breath Sounds, No Rales, No Rhonchi, No Wheezing Gastrointestinal/Abdominal: Other (colostomy in RLQ leaking stool around attached bag) Neurological/Psych: Oriented x3, Normal Speech, Normal Cognition ED Course And Treatment - Laboratory Results Result Diagrams: 07/08/17 18:29 Lab Interpretation: Abnormal ECG: Interpreted By Me ECG Rhythm: Sinus Tachycardia ECG Interpretation: Abnormal Rate From EC O2 Sat by Pulse Oximetry: 100 (room air) Pulse Ox Interpretation: Normal - Radiology CXR: Interpreted by Me CXR Interpretation: Yes: No Acute Disease - Physician Consult Information Time Consulting Physician Contacted: 17:45 Physician Contacted: Tonya Higgins Outcome Of Conversation: [phone] agrees to admit patient. Medical Decision Making Medical Decision Making: EKG, chest rad, UA, and blood work ordered. continued leaking around RUQ ilostomy site, bag not properly sealing for prolonged time @ [place] Disposition Doctor Will See Patient In The: Hospital Counseled Patient/Family Regarding: Studies Performed, Diagnosis - Disposition Disposition: HOSPITALIZED Disposition Time: 20:06 Condition: GOOD - Clinical Impression Clinical Impression: Ileostomy dysfunction - Scribe Statement The provider has reviewed the documentation as recorded by the Scribe Jocelin An All medical record entries made by the Scribe were at my direction and personally dictated by me. I have reviewed the chart and agree that the record accurately reflects my personal performance of the history, physical exam, medical decision making, and the department course for this patient. I have also personally directed, reviewed, and agree with the discharge instructions and disposition.
[2017-07-08 18:32] LABS: BASO # 0.1 K/uL (0.0-0.2); BASO % 0.5 % (0.0-2.0); EOS # 0.1 K/uL (0.0-0.7); EOS % 0.8 % (0.0-4.0); HEMOGLOBIN 12.9 g/dL (11.0-16.0); LYMPH % 15.7 % (20.0-40.0); MEAN CELL VOLUME 83.6 fL (81.0-99.0); MEAN CORPUSCULAR HEMOGLOBIN 27.4 pg (27.0-31.0); MEAN CORPUSCULAR HGB CONC 32.8 g/dL (33.0-37.0); MEAN PLATELET VOLUME 7.9 fL (7.2-11.7); MONO # 0.9 K/uL (0.0-0.8); MONO % 7.3 % (0.0-10.0); NEUT # 9.6 K/uL (1.8-7.0); NEUT % 75.7 % (50.0-75.0); RBC 4.7 Mil/uL (3.80-5.20); RED CELL DISTRIBUTION WIDTH 15.2 % (11.5-14.5); WHITE BLOOD COUNT 12.7 K/uL (4.8-10.8)
[2017-07-08 18:41] LABS: PROTHROMBIN TIME 11.3 SECONDS (9.7-12.2)
[2017-07-08] MEDS ORDERED: Sodium Chloride 0.9% 1,000 ML IV ONE (20:03)
[2017-07-08 20:13] LABS: URINE BACTERIA MANY (<OCC); URINE BILIRUBIN NEGATIVE (NEGATIVE); URINE CLARITY Turbid (Clear); URINE COLOR Amber (YELLOW); URINE GLUCOSE (UA) 3+ mg/dL (Normal); URINE NITRATE NEGATIVE (NEGATIVE); URINE PROTEIN 2+ mg/dL (NEGATIVE); URINE UROBILINOGEN NORMAL mg/dL (0.2-1.0); WBC CLUMPS MANY /hpf
[2017-07-08 20:15] LABS: URINE BLOOD 2+ (NEGATIVE)
[2017-07-08 20:16] LABS: URINE LEUKOCYTE ESTERASE 3+ Leu/uL (Negative)
[2017-07-08 20:28] LABS: ALB/GLOB RATIO 0.5 (1.0-2.1); ALBUMIN 2.6 g/dL (3.5-5.0); ALT/SGPT 52 U/L (9-52); AST/SGOT 37 U/L (14-36); BLOOD UREA NITROGEN 12 mg/dL (7-17); CALCIUM 8.3 mg/dl (8.6-10.4); GFR AFRICAN-AMERICAN > 60; GFR NON-AFRICAN AMERICAN > 60; LIPASE 458 U/L (23-300)
--- NOTE | 2017-07-09 08:21 | RAD ---
PROCEDURE: CHEST RADIOGRAPH, 1 VIEW HISTORY: abd pain COMPARISON: Comparison is made to 07/03/2017 FINDINGS: LUNGS: No evidence of infiltrate or consolidation in the lungs PLEURA: No pneumothorax or pleural fluid seen. CARDIOVASCULAR: Normal. OSSEOUS STRUCTURES: No significant abnormalities. VISUALIZED UPPER ABDOMEN: Normal. OTHER FINDINGS: Right-sided PICC line is seen in place IMPRESSION: No active disease.
[2017-07-09] MEDS: Pantoprazole 40 mg EC Tab PO SCH (09:56)
[2017-07-09] MEDS: Enoxaparin 30 mg Syringe SC SCH (09:56)
[2017-07-09] MEDS ORDERED: Enoxaparin 40 mg Syringe SC SCH (10:00)
[2017-07-09] MEDS: Lactobacillus Acidophilus 500 MU Cap PO SCH (13:16)
--- NOTE | 2017-07-09 18:35 | CP.PCM.HP ---
Past Patient History - Infectious Disease Hx of Infectious Diseases: None - Past Medical History & Family History Past Medical History?: Yes - Past Social History Smoking Status: Never Smoked - CARDIAC Hx Cardiac Disorders: Yes Hx Hypertension: Yes - PULMONARY Hx Respiratory Disorders: No - NEUROLOGICAL Hx Neurological Disorder: No - HEENT Hx HEENT Problems: No - RENAL Hx Chronic Kidney Disease: No - ENDOCRINE/METABOLIC Hx Endocrine Disorders: Yes Hx Hyperthyroidism: Yes - HEMATOLOGICAL/ONCOLOGICAL Hx Blood Disorders: No - INTEGUMENTARY Hx Dermatological Problems: No - MUSCULOSKELETAL/RHEUMATOLOGICAL Hx Musculoskeletal Disorders: Yes Hx Arthritis: Yes (back) Hx Falls: No - GASTROINTESTINAL Hx Gastrointestinal Disorders: Yes Hx Colitis: Yes Hx Gastroesophageal Reflux: Yes Other/Comment: Gastroenteritis - GENITOURINARY/GYNECOLOGICAL Hx Genitourinary Disorders: Yes Hx Urinary Tract Infection: Yes Other/Comment: Hydroureter - PSYCHIATRIC Hx Psychophysiologic Disorder: No Hx Substance Use: No - SURGICAL HISTORY Hx Surgeries: Yes Other/Comment: Nephrostomy insertion; ostomy to right abd. - ANESTHESIA Hx Anesthesia: Yes Hx Anesthesia Reactions: No Hx Malignant Hyperthermia: No Has any member of the family had a problem w/ anesthesia?: No Meds Allergies/Adverse Reactions: Allergies Allergy/AdvReac Type Severity Reaction Status Date / Time No Known Allergies Allergy Verified 06/02/17 21:17 Results - Vital Signs Recent Vital Signs: Last Vital Signs Temp 98.9 F 07/09/17 16:00 Pulse 136 H 07/09/17 16:00 Resp 20 07/09/17 16:00 BP 81/43 L 07/09/17 16:00 Pulse Ox 99 07/09/17 16:00 - Labs Result Diagrams: 07/08/17 18:29 07/08/17 07:05 Labs: Laboratory Results - last 24 hr 07/08/17 07/08/17 07/08/17 07:05 18:29 18:29 WBC 12.7 H D RBC 4.70 Hgb 12.9 Hct 39.3 MCV 83.6 MCH 27.4 MCHC 32.8 L RDW 15.2 H Plt Count 317 MPV 7.9 Neut % (Auto) 75.7 H Lymph % (Auto) 15.7 L [place] % (Auto) 7.3 Eos % (Auto) 0.8 Baso % (Auto) 0.5 Neut # 9.6 H Lymph # 2.0 [place] # 0.9 H Eos # 0.1 Baso # 0.1 PT 11.3 INR 1.0 APTT 37 H Sodium 130 L Potassium 4.4 Chloride 101 Carbon Dioxide 26 Anion Gap 8 L BUN 12 Creatinine 0.5 L Est GFR ( Amer) > 60 Est GFR (Non-Af Amer) > 60 Random Glucose 103 Calcium 8.3 L Total Bilirubin 0.6 AST 37 H D ALT 52 D Alkaline Phosphatase 204 H D Total Protein 7.8 Albumin 2.6 L D Globulin 5.2 H Albumin/Globulin Ratio 0.5 L Lipase 458 H Urine Color Urine Clarity Urine pH Ur Specific Tell Urine Protein Urine Glucose (UA) Urine Ketones Urine Blood Urine Nitrate Urine Bilirubin Urine Urobilinogen Ur Leukocyte Esterase Urine WBC (Auto) Urine RBC (Auto) Urine WBC Clumps (Auto) Urine Bacteria 07/08/17 19:51 WBC RBC Hgb Hct MCV MCH MCHC RDW Plt Count MPV Neut % (Auto) Lymph % (Auto) [place] % (Auto) Eos % (Auto) Baso % (Auto) Neut # Lymph # [place] # Eos # Baso # PT INR APTT Sodium Potassium Chloride Carbon Dioxide Anion Gap BUN Creatinine Est GFR ( Amer) Est GFR (Non-Af Amer) Random Glucose Calcium Total Bilirubin AST ALT Alkaline Phosphatase Total Protein Albumin Globulin Albumin/Globulin Ratio Lipase Urine Color [place]e Urine Clarity Turbid Urine pH 5.0 Ur Specific Tell 1.016 Urine Protein 2+ H Urine Glucose (UA) 3+ H Urine Ketones Negative Urine Blood 2+ H Urine Nitrate Negative Urine Bilirubin Negative Urine Urobilinogen Normal Ur Leukocyte Esterase 3+ H Urine WBC (Auto) 3210 H Urine RBC (Auto) 14 H Urine WBC Clumps (Auto) Many H Urine Bacteria Many H
[2017-07-10] MEDS: Pantoprazole 40 mg EC Tab PO SCH (09:49)
[2017-07-10] MEDS: Enoxaparin 30 mg Syringe SC SCH (09:49)
[2017-07-10] MEDS: Lactobacillus Acidophilus 500 MU Cap PO SCH (09:49)
--- NOTE | 2017-07-10 15:27 | CP.PCM.PN ---
Subjective - Date & Time of Evaluation Date of Evaluation: 07/10/17 Time of Evaluation: 11:15 - Subjective Subjective: clinically same Objective - Vital Signs/Intake and Output Vital Signs (last 24 hours): Temp Pulse Resp BP Pulse Ox 99.4 F 125 H 20 91/61 L 96 07/10/17 08:24 07/10/17 08:24 07/10/17 08:24 07/10/17 08:24 07/10/17 08:24 Intake and Output: 07/10/17 07/10/17 06:59 18:59 Intake Total 350 600 Output Total 350 650 Balance 0 -50 - Medications Medications: Current Medications Acetaminophen (Tylenol 325mg Tab) 650 mg PO Q4 PRN PRN Reason: Pain, moderate (4-7) Ascorbic Acid (Vitamin C 500 Mg Tab) 500 mg PO DAILY [facility] Last Admin: 07/10/17 09:49 Dose: 500 mg Enoxaparin Sodium (Lovenox) 30 mg SC DAILY [facility] Last Admin: 07/10/17 09:49 Dose: Not Given Hydromorphone HCl (Dilaudid) 0.5 mg IVP ONCE PRN PRN Reason: Pain, moderate (4-7) Last Admin: 07/09/17 20:31 Dose: 0.5 mg Hydromorphone HCl (Dilaudid) 0.5 mg IVP Q4H PRN PRN Reason: Pain, moderate (4-7) Last Admin: 07/10/17 13:25 Dose: 0.5 mg Lactobacillus Acidophilus (Bacid Acidophilus) 1 cap PO DAILY [facility] Last Admin: 07/10/17 09:49 Dose: 1 cap Ondansetron HCl (Zofran Inj) 4 mg IVP Q6 PRN PRN Reason: Nausea/Vomiting Last Admin: 07/09/17 13:47 Dose: 4 mg Pantoprazole Sodium (Protonix Ec Tab) 40 mg PO DAILY [facility] Last Admin: 07/10/17 09:49 Dose: 40 mg Pneumococcal Polyvalent Vaccine (Pneumovax 23 Vaccine) 0.5 ml IM .ONCE ONE Stop: 07/11/17 10:01 - Labs Labs: 07/08/17 18:29 07/08/17 07:05 PT 11.3 SECONDS (9.7-12.2) 07/08/17 18:29 INR 1.0 07/08/17 18:29 APTT 37 SECONDS (21-34) H 07/08/17 18:29 - Constitutional Appears: Well - Head Exam Head Exam: ATRAUMATIC, NORMAL INSPECTION, NORMOCEPHALIC - Eye Exam Eye Exam: EOMI, Normal appearance, PERRL Pupil Exam: NORMAL ACCOMODATION, PERRL - ENT Exam ENT Exam: Mucous Membranes Moist, Normal Exam - Neck Exam Neck Exam: Full ROM, Normal Inspection. absent: Lymphadenopathy - Respiratory Exam Respiratory Exam: Decreased Breath Sounds - Cardiovascular Exam Cardiovascular Exam: REGULAR RHYTHM, +S1, +S2 - GI/Abdominal Exam GI & Abdominal Exam: Soft, Diminished Bowel Sounds - Rectal Exam Rectal Exam: Deferred Assessment and Plan - Assessment and Plan (Free Text) Plan: Follow-up with the surgeon surgeon Follow-up with Dr. pérez Follow-up with wound care Continue current medications Monitor the pain medications Discussed with the son multiple times
[2017-07-11] MEDS: Lactobacillus Acidophilus 500 MU Cap PO SCH (09:11)
[2017-07-11] MEDS: Pantoprazole 40 mg EC Tab PO SCH (09:11)
[2017-07-11] MEDS: Enoxaparin 30 mg Syringe SC SCH (09:11)
[2017-07-11] MEDS ORDERED: Influenza Vaccine 60 mcg/0.5 mL SYR (4YR UP) IM ONE (10:00)
[2017-07-11] MEDS ORDERED: Pneumococcal 23-Valent Vaccine IM ONE (10:00)
[2017-07-11] MEDS ORDERED: Lidocaine 5% Patch TD SCH (10:15)
--- NOTE | 2017-07-11 10:45 | CP.PCM.PN ---
Subjective - Date & Time of Evaluation Date of Evaluation: 07/11/17 Time of Evaluation: 09:00 - Subjective Subjective: clinically same Objective - Vital Signs/Intake and Output Vital Signs (last 24 hours): Temp Pulse Resp BP Pulse Ox 98.1 F 89 20 100/71 98 07/11/17 08:20 07/11/17 08:20 07/11/17 08:20 07/11/17 08:20 07/11/17 08:20 Intake and Output: 07/11/17 07/11/17 06:59 18:59 Intake Total 750 Output Total 620 Balance 130 - Medications Medications: Current Medications Acetaminophen (Tylenol 325mg Tab) 650 mg PO Q4 PRN PRN Reason: Pain, moderate (4-7) Alprazolam (Xanax) 0.25 mg PO BID PRN PRN Reason: Anxiety Stop: 07/18/17 10:09 Ascorbic Acid (Vitamin C 500 Mg Tab) 500 mg PO DAILY [facility] Last Admin: 07/11/17 09:11 Dose: 500 mg Enoxaparin Sodium (Lovenox) 30 mg SC DAILY [facility] Last Admin: 07/11/17 09:11 Dose: 30 mg Hydromorphone HCl (Dilaudid) 0.5 mg IVP ONCE PRN PRN Reason: Pain, moderate (4-7) Last Admin: 07/11/17 05:28 Dose: 0.5 mg Hydromorphone HCl (Dilaudid) 0.5 mg IVP Q4H PRN PRN Reason: Pain, moderate (4-7) Last Admin: 07/10/17 21:48 Dose: 0.5 mg Lactobacillus Acidophilus (Bacid Acidophilus) 1 cap PO DAILY [facility] Last Admin: 07/11/17 09:11 Dose: 1 cap Lidocaine (Lidoderm) 1 ea TD DAILY [facility] Ondansetron HCl (Zofran Inj) 4 mg IVP Q6 PRN PRN Reason: Nausea/Vomiting Last Admin: 07/09/17 13:47 Dose: 4 mg Pantoprazole Sodium (Protonix Ec Tab) 40 mg PO DAILY [facility] Last Admin: 07/11/17 09:11 Dose: 40 mg - Labs Labs: 07/08/17 18:29 07/08/17 07:05 PT 11.3 SECONDS (9.7-12.2) 07/08/17 18:29 INR 1.0 07/08/17 18:29 APTT 37 SECONDS (21-34) H 07/08/17 18:29 - Constitutional Appears: Well - Head Exam Head Exam: ATRAUMATIC, NORMAL INSPECTION, NORMOCEPHALIC - Eye Exam Eye Exam: EOMI, Normal appearance, PERRL Pupil Exam: NORMAL ACCOMODATION, PERRL - ENT Exam ENT Exam: Mucous Membranes Moist, Normal Exam - Neck Exam Neck Exam: Full ROM, Normal Inspection. absent: Lymphadenopathy - Respiratory Exam Respiratory Exam: Decreased Breath Sounds - Cardiovascular Exam Cardiovascular Exam: REGULAR RHYTHM, +S1, +S2 - GI/Abdominal Exam GI & Abdominal Exam: Soft, Diminished Bowel Sounds - Rectal Exam Rectal Exam: Deferred
[2017-07-11] MEDS: Lidocaine 5% Oint(35 gm) TOP SCH ×2 (12:23→21:48)
--- NOTE | 2017-07-11 12:50 | CARD ---
APPROVED REPORT EKG Measurement Heart [id number] VT [id number] <Conclusion> Sinus tachycardia Nonspecific T wave abnormality Abnormal ECG
--- NOTE | 2017-07-11 12:55 | CP.PCM.CON ---
<Caroline Cross - Last Filed: 07/11/17 12:50> History of Present Illness - History of Present Illness History of Present Illness: General Surgery: Dr Cabral Patient is a 61 year old female well known to the surgical service. Patient presents with a leaky ostomy and possible infection. Patient states she does have some pain from the ostomy and requests to place lidocaine on the area. As per chart: Past Medical History: HTN, DM, hyperthyroidism, arthritis, GERD, colitis, ileostomy with colostomy bag placement, and b/l nephrostomy tubes Past Surgical History: per chart November 2016: hysterectomy at [facility] [place] 04/12/17: exlap with extensive lysis of adhesion, small bowel resection at fistula site in terminal ileum, small bowel resection of proximal ileum, bladder repair with omental plug, appendectomy, loop ileostomy, removal of gonzalez cath foreign body in right colon, drainage of umbilical abscess 05/03/17 and 05/08/17: debridement of abdominal wound [midline and abdominal wall] and placement of woundvac and ileostomy site wound care 05/24/17: R IR nephrostomy tube insertion 06/13/17: b/l nephrostomy tube insertion [L tube insertion and R tube change] Allergies: NKDA Review of Systems - Review of Systems Systems not reviewed;Unavailable: Language Barrier Past Patient History - Infectious Disease Hx of Infectious Diseases: None - Past Medical History & Family History Past Medical History?: Yes - Past Social History Smoking Status: Never Smoked - CARDIAC Hx Cardiac Disorders: Yes Hx Hypertension: Yes - PULMONARY Hx Respiratory Disorders: No - NEUROLOGICAL Hx Neurological Disorder: No - HEENT Hx HEENT Problems: No - RENAL Hx Chronic Kidney Disease: No - ENDOCRINE/METABOLIC Hx Endocrine Disorders: Yes Hx Hyperthyroidism: Yes - HEMATOLOGICAL/ONCOLOGICAL Hx Blood Disorders: No - INTEGUMENTARY Hx Dermatological Problems: No - MUSCULOSKELETAL/RHEUMATOLOGICAL Hx Musculoskeletal Disorders: Yes Hx Arthritis: Yes (back) Hx Falls: No - GASTROINTESTINAL Hx Gastrointestinal Disorders: Yes Hx Colitis: Yes Hx Gastroesophageal Reflux: Yes Other/Comment: Gastroenteritis - GENITOURINARY/GYNECOLOGICAL Hx Genitourinary Disorders: Yes Hx Urinary Tract Infection: Yes Other/Comment: Hydroureter - PSYCHIATRIC Hx Psychophysiologic Disorder: No Hx Substance Use: No - SURGICAL HISTORY Hx Surgeries: Yes Other/Comment: Nephrostomy insertion; ostomy to right abd. - ANESTHESIA Hx Anesthesia: Yes Hx Anesthesia Reactions: No Hx Malignant Hyperthermia: No Has any member of the family had a problem w/ anesthesia?: No Meds Allergies/Adverse Reactions: Allergies Allergy/AdvReac Type Severity Reaction Status Date / Time No Known Allergies Allergy Verified 06/02/17 21:17 - Medications Medications: Current Medications Acetaminophen (Tylenol 325mg Tab) 650 mg PO Q4 PRN PRN Reason: Pain, moderate (4-7) Alprazolam (Xanax) 0.25 mg PO BID PRN PRN Reason: Anxiety Stop: 07/18/17 10:09 Ascorbic Acid (Vitamin C 500 Mg Tab) 500 mg PO DAILY [facility] Last Admin: 07/11/17 09:11 Dose: 500 mg Enoxaparin Sodium (Lovenox) 30 mg SC DAILY [facility] Last Admin: 07/11/17 09:11 Dose: 30 mg Hydromorphone HCl (Dilaudid) 0.5 mg IVP ONCE PRN PRN Reason: Pain, moderate (4-7) Last Admin: 07/11/17 12:11 Dose: 0.5 mg Hydromorphone HCl (Dilaudid) 0.5 mg IVP Q4H PRN PRN Reason: Pain, moderate (4-7) Last Admin: 07/10/17 21:48 Dose: 0.5 mg Ceftriaxone Sodium 1 gm/ (Sodium Chloride) 100 mls @ 100 mls/hr IVPB DAILY [facility] Last Admin: 07/11/17 11:10 Dose: 100 mls/hr Lactobacillus Acidophilus (Bacid Acidophilus) 1 cap PO DAILY [facility] Last Admin: 07/11/17 09:11 Dose: 1 cap Lidocaine (Lidocaine 5%) 0.5 gm TOP Q12 [facility] Last Admin: 07/11/17 12:23 Dose: 1 applic Ondansetron HCl (Zofran Inj) 4 mg IVP Q6 PRN PRN Reason: Nausea/Vomiting Last Admin: 07/09/17 13:47 Dose: 4 mg Pantoprazole Sodium (Protonix Ec Tab) 40 mg PO DAILY [facility] Last Admin: 07/11/17 09:11 Dose: 40 mg Physical Exam - Constitutional Appears: No Acute Distress, Cachectic - Head Exam Head Exam: ATRAUMATIC, NORMAL INSPECTION - Eye Exam Eye Exam: EOMI - ENT Exam ENT Exam: Mucous Membranes Moist - Respiratory Exam Respiratory Exam: Clear to Auscultation Bilateral, NORMAL BREATHING PATTERN - Cardiovascular Exam Cardiovascular Exam: +S1, +S2 - GI/Abdominal Exam GI & Abdominal Exam: Soft Additional comments: ileostomy bag on the right - Extremities Exam Extremities exam: Positive for: normal inspection - Neurological Exam Neurological exam: Alert - Psychiatric Exam Psychiatric exam: Normal Affect - Skin Skin Exam: Normal Color, Warm Results - Vital Signs Recent Vital Signs: Last Vital Signs Temp 98.1 F 07/11/17 08:20 Pulse 89 07/11/17 08:20 Resp 20 07/11/17 08:20 BP 100/71 07/11/17 08:20 Pulse Ox 98 07/11/17 08:20 - Labs Result Diagrams: 07/08/17 18:29 07/08/17 07:05 Labs: Laboratory Results - last 24 hr 07/10/17 07/10/17 07/11/17 16:07 21:54 07:11 POC Glucose (mg/dL) 215 H 278 H 138 H 07/11/17 11:09 POC Glucose (mg/dL) 237 H Assessment & Plan - Assessment and Plan (Free Text) Assessment: 61 year old female with history of Ex lap with small bowel resection, bladder repair, Appendectomy, Ileostomy, and bilateral nephrostomy tubes. - Continue Wound Care - Continue Topical lidocaine 5% cream around ileostomy site for local anesthesia as needed - Please give Rx on discharge - Xanax 0.25mg PO BID PRN for anxiety Caroline Cross PGY-1 <Sumeet Cabral - Last Filed: 07/12/17 09:35> Meds - Medications Medications: Current Medications Acetaminophen (Tylenol 325mg Tab) 650 mg PO Q4 PRN PRN Reason: Pain, moderate (4-7) Alprazolam (Xanax) 0.25 mg PO BID PRN PRN Reason: Anxiety Stop: 07/18/17 10:09 Last Admin: 07/12/17 04:04 Dose: 0.25 mg Ascorbic Acid (Vitamin C 500 Mg Tab) 500 mg PO DAILY [facility] Last Admin: 07/12/17 09:09 Dose: 500 mg Enoxaparin Sodium (Lovenox) 30 mg SC DAILY [facility] Last Admin: 07/12/17 09:09 Dose: 30 mg Hydromorphone HCl (Dilaudid) 0.5 mg IVP ONCE PRN PRN Reason: Pain, moderate (4-7) Last Admin: 07/12/17 09:09 Dose: 0.5 mg Hydromorphone HCl (Dilaudid) 0.5 mg IVP Q4H PRN PRN Reason: Pain, moderate (4-7) Last Admin: 07/11/17 17:50 Dose: 0.5 mg Ceftriaxone Sodium 1 gm/ (Sodium Chloride) 100 mls @ 100 mls/hr IVPB DAILY [facility] Last Admin: 07/12/17 09:16 Dose: 100 mls/hr Lactobacillus Acidophilus (Bacid Acidophilus) 1 cap PO DAILY [facility] Last Admin: 07/12/17 09:09 Dose: 1 cap Lidocaine (Lidocaine 5%) 0.5 gm TOP Q12 [facility] Last Admin: 07/12/17 09:16 Dose: 1 applic Ondansetron HCl (Zofran Inj) 4 mg IVP Q6 PRN PRN Reason: Nausea/Vomiting Last Admin: 07/09/17 13:47 Dose: 4 mg Pantoprazole Sodium (Protonix Ec Tab) 40 mg PO DAILY [facility] Last Admin: 07/12/17 09:09 Dose: 40 mg Results - Vital Signs Recent Vital Signs: Last Vital Signs Temp 98.6 F 07/12/17 08:00 Pulse 139 H 07/12/17 08:00 Resp 29 H 07/12/17 08:00 BP 149/98 H 07/12/17 08:00 Pulse Ox 96 07/12/17 08:00 - Labs Result Diagrams: 07/08/17 18:29 07/08/17 07:05 Labs: Laboratory Results - last 24 hr 07/11/17 07/11/17 11:09 16:00 POC Glucose (mg/dL) 237 H 256 H Attending/Attestation - Attestation I have personally seen and examined this patient.: Yes I have fully participated in the care of the patient.: Yes I have reviewed all pertinent clinical information: Yes Notes (Text): Pt was seen and examined at bedside Agree with above note and assessment Pt with Ileostomy with skin ulceration No leak from ileostomy site Wound care DC Plan f/u as out pt Plan d.w pt and primary team in detail Risk and benefit explained in detail.
[2017-07-12] MEDS: Lactobacillus Acidophilus 500 MU Cap PO SCH (09:09)
[2017-07-12] MEDS: Enoxaparin 30 mg Syringe SC SCH (09:09)
[2017-07-12] MEDS: Pantoprazole 40 mg EC Tab PO SCH (09:09)
[2017-07-12] MEDS: Lidocaine 5% Oint(35 gm) TOP SCH ×2 (09:16→21:37)
--- NOTE | 2017-07-12 13:51 | CP.PCM.PN ---
Subjective - Date & Time of Evaluation Date of Evaluation: 07/12/17 Time of Evaluation: 08:40 - Subjective Subjective: clinically smae Objective - Vital Signs/Intake and Output Vital Signs (last 24 hours): Temp Pulse Resp BP Pulse Ox 98.6 F 139 H 29 H 149/98 H 96 07/12/17 08:00 07/12/17 08:00 07/12/17 08:00 07/12/17 08:00 07/12/17 08:00 Intake and Output: 07/12/17 07/12/17 06:59 18:59 Intake Total 500 Output Total 660 Balance -160 - Medications Medications: Current Medications Acetaminophen (Tylenol 325mg Tab) 650 mg PO Q4 PRN PRN Reason: Pain, moderate (4-7) Alprazolam (Xanax) 0.25 mg PO BID PRN PRN Reason: Anxiety Stop: 07/18/17 10:09 Last Admin: 07/12/17 04:04 Dose: 0.25 mg Ascorbic Acid (Vitamin C 500 Mg Tab) 500 mg PO DAILY [facility] Last Admin: 07/12/17 09:09 Dose: 500 mg Enoxaparin Sodium (Lovenox) 30 mg SC DAILY [facility] Last Admin: 07/12/17 09:09 Dose: 30 mg Hydromorphone HCl (Dilaudid) 0.5 mg IVP ONCE PRN PRN Reason: Pain, moderate (4-7) Last Admin: 07/12/17 04:48 Dose: 0.5 mg Hydromorphone HCl (Dilaudid) 0.5 mg IVP Q4H PRN PRN Reason: Pain, moderate (4-7) Last Admin: 07/12/17 09:09 Dose: 0.5 mg Ceftriaxone Sodium 1 gm/ (Sodium Chloride) 100 mls @ 100 mls/hr IVPB DAILY [facility] Last Admin: 07/12/17 09:16 Dose: 100 mls/hr Lactobacillus Acidophilus (Bacid Acidophilus) 1 cap PO DAILY [facility] Last Admin: 07/12/17 09:09 Dose: 1 cap Lidocaine (Lidocaine 5%) 0.5 gm TOP Q12 [facility] Last Admin: 07/12/17 09:16 Dose: 1 applic Ondansetron HCl (Zofran Inj) 4 mg IVP Q6 PRN PRN Reason: Nausea/Vomiting Last Admin: 07/09/17 13:47 Dose: 4 mg Pantoprazole Sodium (Protonix Ec Tab) 40 mg PO DAILY [facility] Last Admin: 07/12/17 09:09 Dose: 40 mg - Labs Labs: 07/08/17 18:29 07/08/17 07:05 PT 11.3 SECONDS (9.7-12.2) 07/08/17 18:29 INR 1.0 07/08/17 18:29 APTT 37 SECONDS (21-34) H 07/08/17 18:29 - Constitutional Appears: Well - Head Exam Head Exam: ATRAUMATIC, NORMAL INSPECTION, NORMOCEPHALIC - Eye Exam Eye Exam: EOMI, Normal appearance, PERRL Pupil Exam: NORMAL ACCOMODATION, PERRL - ENT Exam ENT Exam: Mucous Membranes Moist, Normal Exam - Neck Exam Neck Exam: Full ROM, Normal Inspection. absent: Lymphadenopathy - Respiratory Exam Respiratory Exam: Decreased Breath Sounds - Cardiovascular Exam Cardiovascular Exam: REGULAR RHYTHM, +S1, +S2 - GI/Abdominal Exam GI & Abdominal Exam: Soft, Diminished Bowel Sounds - Rectal Exam Rectal Exam: Deferred
[2017-07-13] MEDS: Lidocaine 5% Oint(35 gm) TOP SCH (10:30)
[2017-07-13] MEDS: Pantoprazole 40 mg EC Tab PO SCH (10:31)
[2017-07-13] MEDS: Lactobacillus Acidophilus 500 MU Cap PO SCH (10:31)
[2017-07-13] MEDS: Enoxaparin 30 mg Syringe SC SCH (10:31)
[2017-07-13] MEDS: (Novolog) Insulin Aspart, Recombinant 100 u/ml 10 ml vial SC SCH ×2 (13:39→17:06)
[2017-07-13] MEDS ORDERED: Influenza Vaccine 60 mcg/0.5 mL SYR (4YR UP) IM ONE (16:30)
[2017-07-13 17:17] VITALS: BP 89/60; PULSE 139; RESP 18; TEMP 98.5; O2SAT 98
== END 2017-07-13 18:11 | DRG 188 ==
LOC: C.ER 16:38 → C.9E 17:53 → C.3T 21:34 → C.9E 21:43 → C.3T 21:46
PROVIDERS: ADMIT Internal Medicine Nephrology; ATTEND Internal Medicine Nephrology
DX: K94.12 Enterostomy infection (principal); E05.90 Thyrotoxicosis, unspecified without thyrotoxic crisis or storm; E11.622 Type 2 diabetes mellitus with other skin ulcer; L98.499 Non-pressure chronic ulcer of skin of other sites with unspecified severity; Y83.8 Other surgical procedures as the cause of abnormal reaction of the patient, or of later complication, without mention of misadventure at the time of the procedure; I10 Essential (primary) hypertension; M46.96 Unspecified inflammatory spondylopathy, lumbar region; K21.9 Gastro-esophageal reflux disease without esophagitis; F41.9 Anxiety disorder, unspecified

== ENCOUNTER 2017-07-17 13:18 | Inpatient (IN) | payer OTHER ==
[2017-07-17 13:18] VITALS: BMI 17.6
[2017-07-17] MEDS ORDERED: Piperacillin/Tazobact 3.375 gm 100 ML IVPB STA (13:28)
[2017-07-17] MEDS ORDERED: Vancomycin 1 GM in Sodium Chloride 0.9% 200 ML IVPB STA (13:33)
[2017-07-17] MEDS ORDERED: Sodium Chloride 0.9% 1,000 ML IV ONE ×2 (14:01)
--- NOTE | 2017-07-17 14:01 | RAD ---
HISTORY: chest pain COMPARISON: Chest x-ray performed 07/08/17 TECHNIQUE: Chest, one view. FINDINGS: Right-sided PICC extends expected location of the SVC. Endotracheal tube terminates approximately 3 cm above the carlton. LUNGS: No focal consolidation. Please note that chest x-ray has limited sensitivity for the detection of pulmonary masses. PLEURA: No significant pleural effusion identified. No definite pneumothorax . CARDIOVASCULAR: The cardiomediastinal silhouette appears within normal limits of size. OSSEOUS STRUCTURES: No acute osseous abnormality identified. VISUALIZED UPPER ABDOMEN: Unremarkable. OTHER FINDINGS: None. IMPRESSION: Right-sided PICC extends expected location of the SVC. Endotracheal tube terminates approximately 3 cm above the carlton. No focal consolidation, significant pleural effusion, or definite pneumothorax identified.
--- NOTE | 2017-07-17 14:02 | C.PDOC ---
History Of Present Illness 62 year old female, with history of ileostomy, presents to the ED vis EMS for post-cardiac arrest evaluation. As per EMS, patient had a witnessed episode of cardiac arrest and went into PEA. Two epinephrines administered with ROSC. Patient presented to ED initially with EKG concerning for STEMI. Dr. Abarca called to bedside and patient did not meet criteria to be a code heart candidate. Additional history limited secondary to patient's clinical condition. Time Seen by Provider: 07/17/17 13:20 Chief Complaint (Nursing): Cardiac Arrest History Per: EMS Circumstances: Brought To ED By EMS Arrest Witnessed By: By-stander Medications Given Prior To MD Arrival: Yes: Epinephrine Past Medical History Reviewed: Historical Data, Nursing Documentation, Vital Signs Vital Signs: Last Vital Signs Temp 97.4 F L 07/21/17 04:00 Pulse 92 H 07/21/17 07:00 Resp 15 07/21/17 07:00 BP 125/65 07/21/17 07:00 Pulse Ox 100 07/21/17 10:23 - Medical History PMH: Arthritis (back), HTN, Hyperthyroidism Denies: Chronic Kidney Disease Surgical History: No Surg Hx - [facility] Procedures BYPASS ILEUM TO CUTANEOUS, OPEN APPROACH (04/04/17) CHANGE DRAINAGE DEVICE IN KIDNEY, EXTERNAL APPROACH (06/05/17) COMPRESSION OF ABDOMINAL WALL USING PRESSURE DRESSING (04/04/17) DRAINAGE OF ABDOMEN SKIN, EXTERNAL APPROACH, DIAGNOSTIC (04/04/17) DRAINAGE OF LEFT KIDNEY PELVIS WITH DRAIN DEV, PERC APPROACH (06/05/17) DRAINAGE OF PERITONEAL CAVITY WITH DRAIN DEV, OPEN APPROACH (04/04/17) EXCISION OF ABDOMEN SKIN, EXTERNAL APPROACH (04/04/17) EXCISION OF ILEUM, OPEN APPROACH (04/04/17) EXTIRPATION OF MATTER FROM R LG INTEST, OPEN APPROACH (04/04/17) INSERTION OF FEEDING DEVICE INTO STOMACH, OPEN APPROACH (04/04/17) INTRODUCTION OF NUTRITIONAL INTO UP GI, VIA OPENING (04/04/17) RELEASE PERITONEUM, OPEN APPROACH (04/04/17) REPAIR BLADDER, OPEN APPROACH (04/04/17) RESECTION OF APPENDIX, OPEN APPROACH (04/04/17) Family History: States: Unknown Family Hx - Social History Hx Alcohol Use: No Hx Substance Use: No - Immunization History Hx Tetanus Toxoid Vaccination: No Hx Influenza Vaccination: No Hx Pneumococcal Vaccination: No Review Of Systems Review Of Systems: ROS cannot be obtained secondary to pt's inabilty to answer questions. ED Course And Treatment - Laboratory Results Result Diagrams: 07/21/17 06:11 07/21/17 06:11 O2 Sat by Pulse Oximetry: 100 (on RA) Pulse Ox Interpretation: Normal Medical Decision Making Medical Decision Making: Progress: Bloodwork, UA, EKG, CXR ordered and reviewed. Levophed IV, Zosyn IVP, Vancomycin IVP, and IV fluids administered. pt post rosc. hypotensive. levo started. antibiotics initiate.d dr abarca bedside. not code heart candidate. icu called. accepted to icu. accepted by traci paige. imaging defered to icu. Disposition - Disposition Disposition: HOSPITALIZED Disposition Time: 03:00 Condition: CRITICAL - Clinical Impression Clinical Impression: Cardiac arrest, Sepsis Critical Care Time - Critical Care Note Total Time (in mins): 60 Documented critical care: time excludes all time spent performing seperately billable procedures. - Scribe Statement The provider has reviewed the documentation as recorded by the Scribe (Ruthie Paige) Provider Attestation: All medical record entries made by the Scribe were at my direction and personally dictated by me. I have reviewed the chart and agree that the record accurately reflects my personal performance of the history, physical exam, medical decision making, and the department course for this patient. I have also personally directed, reviewed, and agree with the discharge instructions and disposition. Decision To Admit - Pt Status Changed To: Hospital Disposition Of: Inpatient - Admit Certification Admit to Inpatient:: After my assessment, the patient will require hospitalization for at least two midnights. This is because of the severity of symptoms shown, intensity of services needed, and/or the medical risk in this patient being treated as an outpatient. - InPatient: Physician Admission Certification:: post rosc - . Bed Request Type: ICU Admitting Physician: Tonya Paige Patient Diagnosis: Cardiac arrest, Sepsis
[2017-07-17] MEDS ORDERED: Piperacillin/Tazobact 3.375 gm 100 ML IVPB ONE (14:05)
[2017-07-17 14:08] LABS: BASO # 0.1 K/uL (0.0-0.2); BASO % 0.4 % (0.0-2.0); EOS # 0.1 K/uL (0.0-0.7); EOS % 0.2 % (0.0-4.0); HEMOGLOBIN 11.8 g/dL (11.0-16.0); LYMPH # 3.3 K/uL (1.0-4.3); LYMPH % 15.4 % (20.0-40.0); MEAN CELL VOLUME 87.1 fL (81.0-99.0); MEAN CORPUSCULAR HEMOGLOBIN 27.1 pg (27.0-31.0); MEAN CORPUSCULAR HGB CONC 31.2 g/dL (33.0-37.0); MONO # 0.7 K/uL (0.0-0.8); MONO % 3.4 % (0.0-10.0); NEUT # 17.5 K/uL (1.8-7.0); NEUT % 80.6 % (50.0-75.0); NRBC % 0.1 % (0.0-2.0); RBC 4.34 Mil/uL (3.80-5.20); WHITE BLOOD COUNT 21.7 K/uL (4.8-10.8)
[2017-07-17 14:13] LABS: INR 1.2
[2017-07-17 14:39] LABS: ARTERIAL BLOOD GAS HCO3 11.2 mmol/L (21-28); ARTERIAL BLOOD GAS O2 SAT 100.4 % (95-98); ARTERIAL BLOOD GAS PCO2 19 mm/Hg (35-45); ARTERIAL BLOOD GAS PH 7.22 (7.35-7.45); ARTERIAL BLOOD GAS PO2 455 mm/Hg (80-100); ARTERIAL BLOOD GAS TCO2 8.4 mmol/L (22-28); VENOUS BLOOD GAS BASE EXCESS -17.7 mmol/L (0.0-2.0); VENOUS BLOOD GAS PCO2 19 mmHg (40-60); VENOUS BLOOD GAS PO2 455 mm/Hg (30-55); VENOUS BLOOD PH 7.22 (7.32-7.43)
[2017-07-17 14:42] LABS: TROPONIN I 0.039 ng/mL (0.00-0.120)
[2017-07-17 14:43] LABS: ALB/GLOB RATIO 0.7 (1.0-2.1); ALBUMIN 2.8 g/dL (3.5-5.0); CALCIUM 8.1 mg/dl (8.6-10.4)
[2017-07-17] MEDS ORDERED: Propofol 10 mg/ml 1,000 MG/100 ML VIAL ONE (14:55)
[2017-07-17] MEDS: Propofol 10 mg/ml 1,000 MG/100 ML VIAL IV PRN (15:07)
[2017-07-17] MEDS ORDERED: Dextrose 50% SYRINGE Inj (50 ml) IV STA (15:40)
[2017-07-17] MEDS ORDERED: (Novolin R) Insulin Human Regular 100 units/ml vial IV STA (15:40)
[2017-07-17] MEDS ORDERED: Sodium Bicarbonate (8.4%) 50 Meq Syringe IVP ONE ×2 (15:40→20:47)
[2017-07-17] MEDS ORDERED: Sodium Bicarbonate (8.4%) 50 Meq Syringe ONE (16:32)
[2017-07-17] MEDS ORDERED: (Novolin R) Insulin Human Regular 100 units/ml vial ONE (16:32)
[2017-07-17] MEDS ORDERED: Dextrose 50% VIAL Inj (50 ml) IV ONE (16:32)
--- NOTE | 2017-07-17 16:37 | CP.PCM.CON ---
History of Present Illness - History of Present Illness History of Present Illness: Consult Note for Dr. Roland Pt is a 62 y/o F presenting to ED via EMS for post-cardiac arrest evaluation. As per EMS, patient had a witnessed episode of cardiac arrest and went into PEA. Two epinephrines administered w/ ROSC. Pt presented to ED initially w/ EKG concerning for STEMI. Dr. Mohr called to bedside and Pt did not meet criteria for code heart. Additional hx limited secondary to Pts clinical condition. PMHx - HTN, arthritis, hyperthyroidism, vesico-caecal fistula, ileostomy w/ colostomy bag placement, GERD, colitis, and b/l nephrostomy tubes PSHx - 11/2016: Hysterectomy @[facility] [place]; - 04/12/2017: Exlap w/ extensive lysis of adhesions, small bowel resection at fistula site in terminal ileum, small bowel resection of proximal ileum, bladder repair w/ omental plug, appendectomy, loop ileostomy, removal of gonzalez cath foreign body in right colon, drainage of umbilical abscess 04/12/2017; -05/03/2017 and 05/08/2017: debridement of abdominal wound (midline and abdominal wall) and placement of woundvac and ileostomy site wound care 2016 and 05/08/2017; - 05/24/2017: R IR nephrostomy tube insertion - 06/13/2017: b/l nephrostomy tube insertion (L tube insertion and R tube change ) Allergies: NKDA Past Patient History - Infectious Disease Hx of Infectious Diseases: None - Past Medical History & Family History Past Medical History?: Yes - Past Social History Smoking Status: Never Smoked - CARDIAC Hx Hypertension: Yes - PULMONARY Hx Respiratory Disorders: No - NEUROLOGICAL Hx Neurological Disorder: No - HEENT Hx HEENT Problems: No - RENAL Hx Chronic Kidney Disease: No - ENDOCRINE/METABOLIC Hx Hyperthyroidism: Yes - HEMATOLOGICAL/ONCOLOGICAL Hx Blood Disorders: No - INTEGUMENTARY Hx Dermatological Problems: No - MUSCULOSKELETAL/RHEUMATOLOGICAL Hx Arthritis: Yes (back) - GASTROINTESTINAL Hx Gastrointestinal Disorders: Yes Hx Colitis: Yes Hx Gastroesophageal Reflux: Yes Other/Comment: Gastroenteritis - GENITOURINARY/GYNECOLOGICAL Hx Genitourinary Disorders: Yes Hx Urinary Tract Infection: Yes Other/Comment: Hydroureter - PSYCHIATRIC Hx Substance Use: No - SURGICAL HISTORY Hx Surgeries: Yes Other/Comment: Nephrostomy insertion; ostomy to right abd. - ANESTHESIA Hx Anesthesia: Yes Hx Anesthesia Reactions: No Hx Malignant Hyperthermia: No Meds Allergies/Adverse Reactions: Allergies Allergy/AdvReac Type Severity Reaction Status Date / Time No Known Allergies Allergy Verified 06/02/17 21:17 - Medications Medications: Current Medications Norepinephrine Bitartrate 4 mg (/ Sodium Chloride) 254 mls @ 15.24 mls/hr IV .[id number] PRN; Protocol; 4 MCG/MIN PRN Reason: TITRATE PER MD ORDER Last Admin: 07/17/17 16:26 Dose: 20 mcg/min, 76.2 mls/hr Propofol (Diprivan) 1,000 mg in 100 mls @ 2.177 mls/hr IV .Q24H PRN; Protocol; 10 MCG/KG/MIN PRN Reason: TITRATE PER MD ORDER Last Admin: 07/17/17 15:07 Dose: 2.177 mls/hr Physical Exam - Constitutional Appears: Non-toxic, No Acute Distress - Head Exam Head Exam: ATRAUMATIC - Eye Exam Eye Exam: EOMI, Normal appearance - ENT Exam ENT Exam: Mucous Membranes Moist - Respiratory Exam Respiratory Exam: Clear to Auscultation Bilateral, NORMAL BREATHING PATTERN. absent: Accessory Muscle Use - Cardiovascular Exam Cardiovascular Exam: REGULAR RHYTHM, +S1, +S2 - GI/Abdominal Exam GI & Abdominal Exam: Normal Bowel Sounds, Soft Additional comments: right ostomy bag with soft green. - Extremities Exam Extremities exam: Negative for: pedal edema Additional comments: right IO in anterior tibial - Back Exam Additional comments: bilateral nephrostomy - Skin Skin Exam: Dry, Mottled (ostomy bag site peripheral skin, excoriation) Results - Vital Signs Recent Vital Signs: Last Vital Signs Temp 94.5 F L 07/17/17 14:39 Pulse 140 H 07/17/17 16:12 Resp 20 07/17/17 15:46 BP 88/42 L 07/17/17 16:26 Pulse Ox 100 07/17/17 16:03 - Labs Result Diagrams: 07/17/17 14:00 07/17/17 14:00 Labs: Laboratory Results - last 24 hr 07/17/17 07/17/17 07/17/17 14:00 14:00 14:00 WBC 21.7 H D RBC 4.34 Hgb 11.8 Hct 37.8 MCV 87.1 D MCH 27.1 MCHC 31.2 L RDW 16.0 H Plt Count 332 MPV 8.0 Neut % (Auto) 80.6 H Lymph % (Auto) 15.4 L [place] % (Auto) 3.4 Eos % (Auto) 0.2 Baso % (Auto) 0.4 Neut # 17.5 H Lymph # 3.3 [place] # 0.7 Eos # 0.1 Baso # 0.1 PT 13.0 H INR 1.2 APTT 34 Puncture Site pCO2 pO2 HCO3 ABG pH ABG Total CO2 ABG O2 Saturation ABG Base Excess Fran Test ABG Potassium VBG pH VBG pCO2 VBG HCO3 VBG Total CO2 VBG O2 Sat (Calc) VBG Base Excess VBG Potassium A-a O2 Difference Respiratory Index Glucose Lactate Vent Mode Mechanical Rate FiO2 Tidal Volume PEEP Crit Value Called To Crit Value Called By Crit Value Read Back Blood Gas Notified Time Sodium 129 L Potassium 6.3 H* D Chloride 97 L Carbon Dioxide 5 L* D Anion Gap 33 H BUN 45 H Creatinine 2.9 H Est GFR ( Amer) 20 Est GFR (Non-Af Amer) 16 Random Glucose 71 Calcium 8.1 L Total Bilirubin 0.5 AST 51 H D ALT 29 Alkaline Phosphatase 209 H Troponin I 0.0390 NT-Pro-B Natriuret Pep 2280 H Total Protein 6.9 Albumin 2.8 L Globulin 4.2 H Albumin/Globulin Ratio 0.7 L Lipase 183 Arterial Blood Potassium Venous Blood Potassium 07/17/17 14:36 WBC RBC Hgb Hct MCV MCH MCHC RDW Plt Count MPV Neut % (Auto) Lymph % (Auto) [place] % (Auto) Eos % (Auto) Baso % (Auto) Neut # Lymph # [place] # Eos # Baso # PT INR APTT Puncture Site Femoral pCO2 19 L* pO2 455 H HCO3 11.2 L ABG pH 7.22 L ABG Total CO2 8.4 L ABG O2 Saturation 100.4 H ABG Base Excess -17.7 L Fran Test N/a ABG Potassium 4.6 VBG pH 7.22 L VBG pCO2 19 L* VBG HCO3 11.2 VBG Total CO2 8.4 L VBG O2 Sat (Calc) 100.4 H VBG Base Excess -17.7 L VBG Potassium 4.6 A-a O2 Difference 234.0 Respiratory Index 0.5 Glucose 100 Lactate 7.4 H* Vent Mode Prvc Mechanical Rate 14 FiO2 100.0 Tidal Volume 450 PEEP 5 Crit Value Called To Eloise wilburn Crit Value Called By Dov herndon cutter operator Crit Value Read Back Y Blood Gas Notified Time 1440 Sodium 133.0 Potassium Chloride 106.0 Carbon Dioxide Anion Gap BUN Creatinine Est GFR ( Amer) Est GFR (Non-Af Amer) Random Glucose Calcium Total Bilirubin AST ALT Alkaline Phosphatase Troponin I NT-Pro-B Natriuret Pep Total Protein Albumin Globulin Albumin/Globulin Ratio Lipase Arterial Blood Potassium 4.6 Venous Blood Potassium 4.6 Assessment & Plan - Assessment and Plan (Free Text) Assessment: Assessment Cardiac Arrest w/ PEA Hypotension (acute) Hypertension (chronic) Arthritis Hyerparathyroidism Vesico-caecal fistula Ileostomy w/ Colostomy bag GERD b/l nephrostomy tubes Plan Neuro: neither alert nor alert Sedation: Propofol 1000 mg in 100 mls @ 2.177 mls/hr IV Pain: n/a Psych: n/a Cardio: S/p compressions and 2 doses of epinephrine for cardiac arrest and PEA. Norepinephrine Bitartrate 254 mls @ 15.24 mls/hr IV for hypotensoin. Pulm: CXR shows no focal consolidation, significant pleural effusion, nor definite pneumothorax. Vent Settings: rate 14 // fio2 100 // tv 450 // peep 5 ABG: pCO2 19// pO2 455// HCO3 11.2// pH 7.2 Endo: Novolin R 5 unit IV stat. Random Glucose 71 GI: wound care for illeostomy : wound care for nephrostomies Renal: Na 129// K 6.3// Cl 97// HCO3 5// BUN 45// Cr 2.9 I/O: +254 Heme/Onc: H/H: 11.8/37.8 Pt 13// PTT 34// INR 1.2 MSK: no issues. ID: WBC 21.7. Zosyn 100 mls @ 200 mls/hr IV f/u AM CBC Prophylaxis: DVT: Heparin SC Q8. SCDs GI: Protonix 40 mg IVP Daily - Date & Time Date: 07/17/17 Time: 16:35
[2017-07-17 16:39] LABS: SQUAMOUS EPITHIAL 5 /hpf (0-5); URINE BACTERIA MANY (<OCC); URINE BILIRUBIN NEGATIVE (NEGATIVE); URINE BLOOD 2+ (NEGATIVE); URINE CLARITY Turbid (Clear); URINE COLOR Yellow (YELLOW); URINE GLUCOSE (UA) NORMAL (Normal); URINE LEUKOCYTE ESTERASE 2+ Leu/uL (Negative); URINE NITRATE NEGATIVE (NEGATIVE); URINE PROTEIN 3+ mg/dL (NEGATIVE); URINE UROBILINOGEN NORMAL mg/dL (0.2-1.0)
--- NOTE | 2017-07-17 17:45 | CT ---
PROCEDURE: CT HEAD WITHOUT CONTRAST. HISTORY: post cardiac arrest COMPARISON: None available. TECHNIQUE: Axial computed tomography images were obtained through the head/brain without intravenous contrast. Radiation dose: Total exam DLP = 747.44 mGy-cm. This CT exam was performed using one or more of the following dose reduction techniques: Automated exposure control, adjustment of the mA and/or kV according to patient size, and/or use of iterative reconstruction technique. FINDINGS: HEMORRHAGE: No intracranial hemorrhage. BRAIN: Diffuse atrophy with prominence of the ventricles and sulci noted. No mass effect or edema. Scattered periventricular and subcortical white matter hypodensities, which are nonspecific, but often seen with chronic microvascular ischemic disease. Please note that MRI with diffusion imaging is more sensitive in the detection of acute ischemic event. VENTRICLES: No hydrocephalus. CALVARIUM: Unremarkable. PARANASAL SINUSES: Unremarkable as visualized. No significant inflammatory changes. MASTOID AIR CELLS: Unremarkable as visualized. No inflammatory changes. OTHER FINDINGS: None. IMPRESSION: Generalized atrophy. Nonspecific white matter changes. Please note that MRI with diffusion imaging is more sensitive in the detection of acute ischemic event.
--- NOTE | 2017-07-17 18:21 | PCM.SEPTIC ---
Sepsis Progress Note - Reassessment Type Date of Evaluation: 07/17/17 Time of Evaluation: 18:00 Reassessment Type: Non-invasive reassessment - Non Invasive Reassessment Were the most recent vital sign reviewed: Yes Vital Sign (Latest): Temp Pulse Resp BP Pulse Ox 98.4 F 145 H 21 96/63 L 100 07/17/17 18:00 07/17/17 17:50 07/17/17 17:50 07/17/17 17:50 07/17/17 17:50 Cardiovascular: Yes: Tachycardia Respiratory: Yes: Decreased Breath Sounds. No: Rales, Rhonchi Capillary Refill: Normal (Less than 2 sec) Pulses: Decreased Radial, Decreased Dorsalis Pedis, Decreased Posterior Tibialis Skin: Warm, Dry
[2017-07-17 18:23] LABS: ARTERIAL BLOOD GAS HCO3 18.3 mmol/L (21-28); ARTERIAL BLOOD GAS O2 SAT 100.4 % (95-98); ARTERIAL BLOOD GAS PCO2 23 mm/Hg (35-45); ARTERIAL BLOOD GAS PO2 304 mm/Hg (80-100); ARTERIAL BLOOD GAS TCO2 14.9 mmol/L (22-28)
[2017-07-17] MEDS ORDERED: Sodium Chloride 0.9% 1,000 ML IV SCH ×2 (18:30→18:40)
[2017-07-17] MEDS ORDERED: Vancomycin 1 gm/NS 200 ml 1 GM/200 ML BAG IVPB SCH (18:45)
--- NOTE | 2017-07-17 18:59 | CP.PCM.HP ---
Past Patient History - Infectious Disease Hx of Infectious Diseases: None - Past Medical History & Family History Past Medical History?: Yes - Past Social History Smoking Status: Never Smoked - CARDIAC Hx Hypertension: Yes - PULMONARY Hx Respiratory Disorders: No - NEUROLOGICAL Hx Neurological Disorder: No - HEENT Hx HEENT Problems: No - RENAL Hx Chronic Kidney Disease: Yes Hx Dialysis: No Other/Comment: Bilateral nephrostomy tubes and bladder surgery this past year. - ENDOCRINE/METABOLIC Hx Diabetes Mellitus Type 2: Yes Hx Hyperthyroidism: Yes - HEMATOLOGICAL/ONCOLOGICAL Hx Blood Disorders: No - INTEGUMENTARY Hx Dermatological Problems: No - MUSCULOSKELETAL/RHEUMATOLOGICAL Hx Arthritis: Yes (back) Hx Falls: No - GASTROINTESTINAL Hx Gastrointestinal Disorders: Yes Hx Bowel Surgery: Yes (Ileostomy) Hx Colitis: Yes Hx Gastroesophageal Reflux: Yes Other/Comment: Gastroenteritis - GENITOURINARY/GYNECOLOGICAL Hx Genitourinary Disorders: Yes Hx Urinary Tract Infection: Yes Other/Comment: Hydroureter - PSYCHIATRIC Hx Substance Use: No - SURGICAL HISTORY Hx Surgeries: Yes Other/Comment: Nephrostomy insertion; ostomy to right abd. - ANESTHESIA Hx Anesthesia: Yes Hx Anesthesia Reactions: No Hx Malignant Hyperthermia: No Meds Allergies/Adverse Reactions: Allergies Allergy/AdvReac Type Severity Reaction Status Date / Time No Known Allergies Allergy Verified 06/02/17 21:17 Physical Exam - Constitutional Appears: Well - Head Exam Head Exam: ATRAUMATIC, NORMAL INSPECTION, NORMOCEPHALIC - Eye Exam Eye Exam: EOMI, Normal appearance, PERRL Pupil Exam: NORMAL ACCOMODATION, PERRL - ENT Exam ENT Exam: Mucous Membranes Moist, Normal Exam - Neck Exam Neck exam: Positive for: Normal Inspection - Respiratory Exam Respiratory Exam: Decreased Breath Sounds - Cardiovascular Exam Cardiovascular Exam: REGULAR RHYTHM, +S1, +S2 - GI/Abdominal Exam GI & Abdominal Exam: Diminished Bowel Sounds, Soft - Rectal Exam Rectal Exam: Deferred Results - Vital Signs Recent Vital Signs: Last Vital Signs Temp 98.4 F 07/17/17 18:00 Pulse 145 H 07/17/17 17:50 Resp 21 07/17/17 17:50 BP 96/63 L 07/17/17 17:50 Pulse Ox 100 07/17/17 17:50 - Labs Result Diagrams: 07/17/17 14:00 07/17/17 14:00 Labs: Laboratory Results - last 24 hr 01/02/2407/17/17 07/17/17 14:00 14:00 14:00 WBC 21.7 H D RBC 4.34 Hgb 11.8 Hct 37.8 MCV 87.1 D MCH 27.1 MCHC 31.2 L RDW 16.0 H Plt Count 332 MPV 8.0 Neut % (Auto) 80.6 H Lymph % (Auto) 15.4 L [place] % (Auto) 3.4 Eos % (Auto) 0.2 Baso % (Auto) 0.4 Neut # 17.5 H Lymph # 3.3 [place] # 0.7 Eos # 0.1 Baso # 0.1 PT 13.0 H INR 1.2 APTT 34 Puncture Site pCO2 pO2 HCO3 ABG pH ABG Total CO2 ABG O2 Saturation ABG Base Excess Fran Test ABG Potassium VBG pH VBG pCO2 VBG HCO3 VBG Total CO2 VBG O2 Sat (Calc) VBG Base Excess VBG Potassium A-a O2 Difference Respiratory Index Glucose Lactate Vent Mode Mechanical Rate FiO2 Tidal Volume PEEP Crit Value Called To Crit Value Called By Crit Value Read Back Blood Gas Notified Time Sodium 129 L Potassium 6.3 H* D Chloride 97 L Carbon Dioxide 5 L* D Anion Gap 33 H BUN 45 H Creatinine 2.9 H Est GFR ( Amer) 20 Est GFR (Non-Af Amer) 16 Random Glucose 71 Calcium 8.1 L Total Bilirubin 0.5 AST 51 H D ALT 29 Alkaline Phosphatase 209 H Troponin I 0.0390 NT-Pro-B Natriuret Pep 2280 H Total Protein 6.9 Albumin 2.8 L Globulin 4.2 H Albumin/Globulin Ratio 0.7 L Lipase 183 Arterial Blood Potassium Venous Blood Potassium Urine Color Urine Clarity Urine pH Ur Specific [place] Urine Protein Urine Glucose (UA) Urine Ketones Urine Blood Urine Nitrate Urine Bilirubin Urine Urobilinogen Ur Leukocyte Esterase Urine WBC (Auto) Urine RBC (Auto) Ur Squamous Epith Cells Urine Bacteria Urine Yeast (Budding) 07/17/17 07/17/17 07/17/17 14:36 16:22 18:20 WBC RBC Hgb Hct MCV MCH MCHC RDW Plt Count MPV Neut % (Auto) Lymph % (Auto) [place] % (Auto) Eos % (Auto) Baso % (Auto) Neut # Lymph # [place] # Eos # Baso # PT INR APTT Puncture Site Femoral Lb pCO2 19 L* 23 L pO2 455 H 304 H HCO3 11.2 L 18.3 L ABG pH 7.22 L 7.40 ABG Total CO2 8.4 L 14.9 L ABG O2 Saturation 100.4 H 100.4 H ABG Base Excess -17.7 L -8.6 L Fran Test N/a Na ABG Potassium 4.6 3.9 VBG pH 7.22 L VBG pCO2 19 L* VBG HCO3 11.2 VBG Total CO2 8.4 L VBG O2 Sat (Calc) 100.4 H VBG Base Excess -17.7 L VBG Potassium 4.6 A-a O2 Difference 234.0 95.0 Respiratory Index 0.5 0.3 Glucose 100 166 H Lactate 7.4 H* 3.9 H Vent Mode Prvc Prvc Mechanical Rate 14 14 FiO2 100.0 60.0 Tidal Volume 450 450 PEEP 5 5 Crit Value Called To Eloise wilburn Crit Value Called By Dov herndon life enrichment director Crit Value Read Back Y Blood Gas Notified Time 1440 Sodium 133.0 137.0 Potassium Chloride 106.0 112.0 H Carbon Dioxide Anion Gap BUN Creatinine Est GFR ( Amer) Est GFR (Non-Af Amer) Random Glucose Calcium Total Bilirubin AST ALT Alkaline Phosphatase Troponin I NT-Pro-B Natriuret Pep Total Protein Albumin Globulin Albumin/Globulin Ratio Lipase Arterial Blood Potassium 4.6 3.9 Venous Blood Potassium 4.6 Urine Color Yellow Urine Clarity Turbid Urine pH 5.0 Ur Specific [place] 1.026 Urine Protein 3+ H Urine Glucose (UA) Normal Urine Ketones Trace Urine Blood 2+ H Urine Nitrate Negative Urine Bilirubin Negative Urine Urobilinogen Normal Ur Leukocyte Esterase 2+ H Urine WBC (Auto) 9194 H Urine RBC (Auto) 269 H Ur Squamous Epith Cells 5 Urine Bacteria Many H Urine Yeast (Budding) Many H
--- NOTE | 2017-07-17 19:02 | CT ---
EXAM: CT Chest Without Intravenous Contrast CLINICAL HISTORY: 62 years old, female; Signs and symptoms; Other: Fistula; Shortness of breath; Additional info: Post arrest/h/o of fistula TECHNIQUE: Axial computed tomography images of the chest without intravenous contrast. All CT scans at this facility use one or more dose reduction techniques, viz.: automated exposure control; ma/kV adjustment per patient size (including targeted exams where dose is matched to indication; i.e. head); or iterative reconstruction technique. Coronal and sagittal reformatted images were created and reviewed. COMPARISON: No relevant prior studies available. FINDINGS: Airway, Lungs and pleural spaces: Endotracheal tube is in place. Tip of the tube is at the level of the aortic arch. Trachea distal to the tube and main bronchi are patent. There is mucosal debris in the right main bronchus just below the carlton. There is no pneumothorax. The lungs are well-inflated. There is no focal consolidation. There is minimal scarring at the lung bases. There are no effusions. Heart and vasculature: Heart size is normal. There are coronary artery calcifications. Aorta and main pulmonary artery are normal in caliber. There are vascular calcifications. There is iatrogenic venous air. Thyroid: Thyroid is diffusely heterogeneous. There are partially calcified nodules bilaterally. Bones/joints: Bony structures are osteopenic with degenerative change. There are nondisplaced bilateral anterior rib fractures 3, 4 5 on the right, 4, 5 and 6 on the left. Soft tissues: unremarkable Mediastinum: There is shotty mediastinal nodes. There are small nonenlarged calcified mediastinal nodes.Mary are not optimally evaluated without contrast material. The esophagus is not optimally evaluated. Upper abdomen: Refer to the following report for abdominal findings Tubes, lines and devices: There is a right PICC line with the catheter tip in the low superior vena cava. IMPRESSION: Bilateral nondisplaced anterior rib fractures most likely iatrogenic; iatrogenic venous air; endotracheal tube and right PICC line in place; minimal debris in the right main bronchus, no focal consolidation; multinodular goiter Additional findings as described above. EXAM: CT Abdomen and Pelvis Without Intravenous Contrast EXAM DATE/TIME: 07/17/2017 3:41 PM CLINICAL HISTORY: 62 years old, female; Signs and symptoms; Other: Fistula; Shortness of breath; Additional info: Post arrest/h/o of fistula TECHNIQUE: Axial computed tomography images of the abdomen and pelvis without intravenous contrast. All CT scans at this facility use one or more dose reduction techniques, viz.: automated exposure control; ma/kV adjustment per patient size (including targeted exams where dose is matched to indication; i.e. head); or iterative reconstruction technique. Coronal and sagittal reformatted images were created and reviewed. COMPARISON: CT - ABD PELVIS IV CONTRAST ONLY 2017-06-06 10:11 FINDINGS: Lower thorax: Refer to prior report for chest findings ABDOMEN: Liver: unremarkable Gallbladder and bile ducts: Gallbladder is partially distended. There may be small gallstones. Common duct is difficult to evaluate. Pancreas: Pancreas is atrophic. Spleen: unremarkable Adrenals: There is adrenal thickening. Kidneys and ureters: Right kidney is normal in size. Streak and lack of contrast limits evaluation of renal parenchyma. There is a right nephrostomy tube, unchanged. There is been interval resolution of right pelvocaliectasis and ureterectasis. Left kidney is atrophic. There has been interval placement of a left nephrostomy. Collecting system and ureter are decompressed. Stomach and bowel: Stomach is distended with an air-fluid level. Rotation is normal. Small bowel is mildly distended with fluid and air. There is distal small bowel wall thickening. There is a right lower quadrant ileostomy. Residual colon is not optimally evaluated. There is an enterostomy in the left lower quadrant. Appendix: Appendix is not visualized. PELVIS: Bladder: The bladder is almost completely empty. There continues to be a small collection of fluid and air anterior and superior to the bladder. Reproductive: There is a Mckeon catheter and appears to be within the vagina. Uterus is absent. Adnexa are not well-demonstrated. ABDOMEN and PELVIS: Intraperitoneal space: There is no free air or free fluid. Bones/joints: Bony structures are osteopenic with degenerative change. There is periosteal reaction along the inner surfaces of both carla. Soft tissues: There is edema in the presacral soft tissues. Vasculature: There are vascular calcifications. Lymph nodes: There is shotty periaortic adenopathy. IMPRESSION: Right lower quadrant ileostomy, no bowel obstruction; limited evaluation of solid viscera and bowel due to lack of oral and intravenous contrast; bilateral nephrostomies with interval resolution of pelvocaliectasis and ureterectasis; Mckeon catheter most likely in the vagina Additional findings as described above.
[2017-07-17] MEDS ORDERED: Alum-Mag Hydrox-Simethicone Susp (30 mL) PO PRN (20:19)
[2017-07-17] MEDS ORDERED: SODIUM BICARBONATE IV SCH (20:53)
[2017-07-17] MEDS ORDERED: SODIUM CHLORIDE 0.9% IV SCH (20:53)
[2017-07-17] MEDS: Meropenem 500 MG in Sodium Chloride 0.9% 100 ML IVPB SCH (21:23)
[2017-07-17] MEDS ORDERED: Piperacill/Tazo 3.375gm in Dex 3.375 GM/50 ML BAG IVPB SCH (22:00)
[2017-07-17 22:17] LABS: ARTERIAL BLOOD GAS HCO3 18.6 mmol/L (21-28); ARTERIAL BLOOD GAS O2 SAT 99.5 % (95-98); ARTERIAL BLOOD GAS PCO2 21 mm/Hg (35-45); ARTERIAL BLOOD GAS PH 7.43 (7.35-7.45); ARTERIAL BLOOD GAS PO2 183 mm/Hg (80-100); ARTERIAL BLOOD GAS TCO2 14.5 mmol/L (22-28)
[2017-07-17] MEDS ORDERED: Albumin Human 25% (12.5 gm/50 ml) IV ONE (22:22)
[2017-07-17] MEDS: (Novolog) Insulin Aspart, Recombinant 100 u/ml 10 ml vial SC SCH (23:14)
[2017-07-17 23:48] LABS: ALB/GLOB RATIO 0.6 (1.0-2.1); ALBUMIN 2.5 g/dL (3.5-5.0); CALCIUM 6.7 mg/dl (8.6-10.4)
[2017-07-18 00:02] LABS: CK-MB 5.55 ng/mL (0.0-3.38); TROPONIN I 0.595 ng/mL (0.00-0.120)
[2017-07-18] MEDS ORDERED: Vancomycin 1 gm/NS 200 ml 1 GM/200 ML BAG IVPB SCH ×2 (02:00→18:45)
[2017-07-18 05:47] LABS: ARTERIAL BLOOD GAS HCO3 18.7 mmol/L (21-28); ARTERIAL BLOOD GAS PCO2 23 mm/Hg (35-45); ARTERIAL BLOOD GAS PH 7.41 (7.35-7.45); ARTERIAL BLOOD GAS PO2 175 mm/Hg (80-100); ARTERIAL BLOOD GAS TCO2 15.3 mmol/L (22-28)
[2017-07-18 06:17] LABS: BASO % 0.1 % (0.0-2.0); EOS % 0.2 % (0.0-4.0); HEMOGLOBIN 10.4 g/dL (11.0-16.0); LYMPH # 2.1 K/uL (1.0-4.3); MEAN CELL VOLUME 83.6 fL (81.0-99.0); MEAN CORPUSCULAR HEMOGLOBIN 27.2 pg (27.0-31.0); MEAN CORPUSCULAR HGB CONC 32.6 g/dL (33.0-37.0); MEAN PLATELET VOLUME 7.7 fL (7.2-11.7); MONO # 1.2 K/uL (0.0-0.8); MONO % 4.5 % (0.0-10.0); NEUT # 22.8 K/uL (1.8-7.0); NEUT % 87.2 % (50.0-75.0); PLATELET COUNT 225 K/uL (130-400); RBC 3.84 Mil/uL (3.80-5.20); RED CELL DISTRIBUTION WIDTH 15.4 % (11.5-14.5); WHITE BLOOD COUNT 26.2 K/uL (4.8-10.8)
[2017-07-18 06:55] LABS: ALB/GLOB RATIO 0.8 (1.0-2.1); ALBUMIN 2.6 g/dL (3.5-5.0); CALCIUM 6.3 mg/dl (8.6-10.4); CK-MB 5.11 ng/mL (0.0-3.38); MAGNESIUM 0.8 mg/dL (1.6-2.3); TROPONIN I 0.396 ng/mL (0.00-0.120)
[2017-07-18] MEDS: Magnesium Sulfate 1 gm in D5W 1 GM/100 ML BAG IVPB SCH ×2 (07:21→07:58)
[2017-07-18] MEDS: (Novolog) Insulin Aspart, Recombinant 100 u/ml 10 ml vial SC SCH ×3 (07:30→17:40)
[2017-07-18 08:33] LABS: LYMPHOCYTE 7 % (20-40); MONOCYTE 5 % (0-10); NEUTROPHIL 88 % (50-75); TOTAL CELLS COUNTED 100
[2017-07-18 08:34] LABS: ANISOCYTOSIS SLIGHT; HYPOCHROMIC SLIGHT; PLATELET ESTIMATE NORMAL (NORMAL); POLYCHROMIC SLIGHT
--- NOTE | 2017-07-18 08:42 | CP.PCM.PN ---
Subjective - Date & Time of Evaluation Date of Evaluation: 07/18/17 Time of Evaluation: 12:40 - Subjective Subjective: clinically same Objective - Vital Signs/Intake and Output Vital Signs (last 24 hours): Temp Pulse Resp BP Pulse Ox 98.1 F 132 H 20 102/51 L 100 07/18/17 04:00 07/18/17 06:00 07/18/17 06:00 07/18/17 05:44 07/18/17 06:00 Intake and Output: 07/18/17 07/18/17 06:59 18:59 Intake Total 3437.8 Output Total 350 Balance 3087.8 - Medications Medications: Current Medications Al Hydrox/Mg Hydrox/Simethicone (Maalox Plus 30 Ml) 30 ml PO Q4 PRN PRN Reason: Heartburn Enoxaparin Sodium (Lovenox) 30 mg SC DAILY [facility] Norepinephrine Bitartrate 4 mg (/ Sodium Chloride) 254 mls @ 15.24 mls/hr IV .[id number] PRN; Protocol; 4 MCG/MIN PRN Reason: TITRATE PER MD ORDER Last Admin: 07/18/17 02:49 Dose: 7.87 mcg/min, 30 mls/hr Propofol (Diprivan) 1,000 mg in 100 mls @ 2.177 mls/hr IV .Q24H PRN; Protocol; 10 MCG/KG/MIN PRN Reason: TITRATE PER MD ORDER Last Titration: 07/17/17 19:09 Dose: 22.5 mcg/kg/min, 4.9 mls/hr Meropenem 500 mg/ Sodium (Chloride) 100 mls @ 100 mls/hr IVPB Q12H [facility] Last Admin: 07/17/17 21:23 Dose: 100 mls/hr Sodium Bicarbonate 50 meq/ (Sodium Chloride) 1,050 mls @ 250 mls/hr IV .Q4H12M [facility] Last Admin: 07/18/17 07:57 Dose: 250 mls/hr Vancomycin HCl 1 gm/ Sodium (Chloride) 250 mls @ 133 mls/hr IVPB Q12H [facility] Last Admin: 07/18/17 02:41 Dose: 133 mls/hr Magnesium Sulfate/Dextrose (Magnesium Sulfate 1 Gm/100 Ml D5w) 1 gm in 100 mls @ 100 mls/hr IVPB Q1H [facility] Stop: 07/18/17 08:59 Last Admin: 07/18/17 07:58 Dose: 100 mls/hr Insulin Aspart (Novolog) 0 unit SC ACHS VISHNU PRN Reason: Protocol Last Admin: 07/17/17 23:14 Dose: Not Given Lactobacillus Acidophilus (Bacid Acidophilus) 1 cap PO DAILY [facility] Metoclopramide HCl (Reglan) 10 mg PO Q6 PRN PRN Reason: Nausea/Vomiting Pantoprazole Sodium (Protonix Ec Tab) 40 mg PO DAILY VISHNU - Labs Labs: 07/18/17 06:12 07/18/17 06:12 PT 13.0 SECONDS (9.7-12.2) H 07/17/17 14:00 INR 1.2 07/17/17 14:00 APTT 34 SECONDS (21-34) 07/17/17 14:00
[2017-07-18] MEDS ORDERED: Pantoprazole 40 mg EC Tab PO SCH (10:00)
[2017-07-18] MEDS: Meropenem 500 MG in Sodium Chloride 0.9% 100 ML IVPB SCH ×2 (10:00→20:34)
[2017-07-18] MEDS ORDERED: AMINO ACIDS PO SCH (10:00)
[2017-07-18] MEDS ORDERED: PROTEIN HYDROLYS PO SCH (10:00)
--- NOTE | 2017-07-18 10:16 | RAD ---
Chest x-ray single frontal view History: Fluid evaluation. Comparison: 07/17/2017 Findings Endotracheal tube approximately 3.4 centimeters above the carlton. Other lines and tubes in stable position. Hyperinflation suggestive for COPD and or emphysematous changes. No focal infiltrate or effusion. Curvilinear opacity seen in the right midlung zone may represent confluence shadows with ribs and vessels. Clinical correlation. Impression: No significant interval change.
--- NOTE | 2017-07-18 11:31 | PCM.PROC ---
Procedures Attestation:: I certify that I have explained the specified Operation(s) or Procedure(s), risks, benefits and reasonable alternatives to the Patient and/or other person responsible. The opportunity was given to ask questions and all questions answered - Central Line Placement Right Internal Jugular Aseptic technique was employed throughout the procedure: Hand Hygiene done prior to procedure, Full sterile barriers (mask, hair cover, sterile gown, sterile gloves), Chloraprep Antiseptic: 30 second prep for IJ or SC sites Local Anesthesia Used: Lidocaine 1% Ultrasound Used for Placement: Yes Central Line Lumen Inserted: triple Secured by: Suture Post procedure dressing: Gauze, Chlorhexidine disc (Biopatch) Post Procedure X-Ray: Yes Patient Tolerated Procedure: Well Immediate Complications: None
--- NOTE | 2017-07-18 11:53 | CP.CCUPN ---
<Zari Golden - Last Filed: 07/18/17 17:24> CCU Subjective - Physician Review Subjective (Free Text): 07/18/17 11:[address] Canela Patient seen and examined at bedside. Patient intubated, GCS 11T ([id number]). Patient indicates that she wants to eat. Patient had IO removed after Right IJ TLC placement. Patient had OGT inserted and tube feeds started. Critical Care Time Spent (in minutes): 35 CCU Objective - Vital Signs / Intake & Output Vital Signs (Last 4 hours): Vital Signs Temp Pulse Resp BP Pulse Ox 07/18/17 10:00 139 H 19 97/46 L 100 07/18/17 09:00 132 H 21 98/59 L 100 07/18/17 08:00 98.2 F 133 H 19 94/53 L 100 Intake and Output (Last 8hrs): Intake & Output 07/17/17 07/18/17 07/18/17 22:59 06:59 14:59 Intake Total 1506.6 2270.0 1305.2 Output Total 55 350 Balance 1451.6 1920.0 1305.2 Weight 74 lb Intake: IV 512 0 Intake, IV Amount 994.6 2270.0 1305.2 Right Medial Port PICC 750 0 200 Right PICC 225.0 270.0 105.2 Right lower leg osseous 19.6 2000 1000 Output: Drainage 55 350 Abdomen 200 Left Back 25 100 Right Back 30 50 - Physical Exam Head: Positive for: Atraumatic, Normocephalic Pupils: Positive for: PERRL Extroacular Muscles: Positive for: EOMI Conjunctiva: Positive for: Normal Nose (External): Positive for: Atraumatic Respiratory/Chest: Positive for: Clear to Auscultation. Negative for: Accessory Muscle Use Cardiovascular: Positive for: Regular Rate and Rhythm, Normal S1, S2 Abdomen: Positive for: Ostomy Tubes, Scars (from prior surgeries) Upper Extremity: Positive for: Normal Inspection, Normal ROM, Capillary Refill < 2s Lower Extremity: Positive for: Normal Inspection, Normal ROM, Capillary Refill < 2 s Neurological: Negative for: GCS=15 Skin: Positive for: Warm, Dry Psychiatric: Positive for: Alert - Medications Active Medications: Active Medications Generic Name Dose Route Start Last Admin Trade Name Freq PRN Reason Stop Dose Admin Al Hydrox/Mg Hydrox/Simethicone 30 ml 07/17/17 20:19 Maalox Plus 30 Ml PO Q4 PRN Heartburn Enoxaparin Sodium 30 mg 07/18/17 10:00 Lovenox SC DAILY [facility] Norepinephrine Bitartrate 4 mg 254 mls @ 15.24 mls/hr 07/17/17 13:36 02:49 / Sodium Chloride IV 7.87 mcg/min .[id number] PRN 30 mls/hr TITRATE PER MD ORDER Administration Protocol 4 MCG/MIN Propofol 1,000 mg in 100 mls @ 2.177 mls/hr 07/17/17 14:22 07/17/17 19:09 Diprivan IV 22.5 mcg/kg/min .Q24H PRN 4.9 mls/hr TITRATE PER MD ORDER Titration Protocol 10 MCG/KG/MIN Meropenem 500 mg/ Sodium 100 mls @ 100 mls/hr 07/17/17 21:00 07/17/17 21:23 Chloride IVPB 100 mls/hr Q12H VISHNU Administration Sodium Bicarbonate 50 meq/ 1,050 mls @ 250 mls/hr 07/17/17 22:00 07/18/17 07: 57 Sodium Chloride IV 250 mls/hr .[id number] VISHNU Administration Imipenem/Cilastatin Sodium 250 100 mls @ 100 mls/hr 07/18/17 10:00 mg/ Sodium Chloride IVPB Q6H VISHNU Vancomycin/Sodium Chloride 1 gm in 200 mls @ 133.333 mls/hr 07/18/17 14:15 Vancomycin 1 Gm/Ns 200 Ml IVPB 07/23/17 14:16 Q12H VISHNU Insulin Aspart 0 unit 07/17/17 22:00 07/17/17 23:14 Novolog SC Not Given ACHS [facility] Protocol Lactobacillus Acidophilus 1 cap 07/18/17 10:00 Bacid Acidophilus PO DAILY [facility] Metoclopramide HCl 10 mg 07/17/17 20:19 Reglan PO Q6 PRN Nausea/Vomiting Pantoprazole Sodium 40 mg 07/18/17 10:00 Protonix Ec Tab PO DAILY VISHNU - Patient Studies Lab Studies: Lab Studies 07/18/17 07/18/17 07/18/17 Range/Units 08:42 06:12 06:12 WBC 26.2 H (4.8-10.8) K/uL RBC 3.84 (3.80-5.20) Mil/uL Hgb 10.4 L (11.0-16.0) g/dL Hct 32.1 L (34.0-47.0) % MCV 83.6 D (81.0-99.0) fL MCH 27.2 (27.0-31.0) pg MCHC 32.6 L (33.0-37.0) g/dL RDW 15.4 H (11.5-14.5) % Plt Count 225 D (130-400) K/uL MPV 7.7 (7.2-11.7) fL Neut % (Auto) 87.2 H (50.0-75.0) % Lymph % (Auto) 8.0 L (20.0-40.0) % Campbell % (Auto) 4.5 (0.0-10.0) % Eos % (Auto) 0.2 (0.0-4.0) % Baso % (Auto) 0.1 (0.0-2.0) % Neut # 22.8 H (1.8-7.0) K/uL Lymph # 2.1 (1.0-4.3) K/uL Campbell # 1.2 H (0.0-0.8) K/uL Eos # 0.0 (0.0-0.7) K/uL Baso # 0.0 (0.0-0.2) K/uL Neutrophils % (Manual) 88 H (50-75) % Lymphocytes % (Manual) 7 L (20-40) % Monocytes % (Manual) 5 (0-10) % Platelet Estimate Normal (NORMAL) Polychromasia Slight Hypochromasia (manual) Slight Anisocytosis (manual) Slight PT (9.7-12.2) SECONDS INR APTT (21-34) SECONDS Puncture Site pCO2 (35-45) mm/Hg pO2 (30-55) mm/Hg HCO3 (21-28) mmol/L ABG pH (7.35-7.45) ABG Total CO2 (22-28) mmol/L ABG O2 Saturation (95-98) % ABG Base Excess (-2.0-3.0) mmol/L Fran Test ABG Potassium (3.6-5.2) mmol/L VBG pH (7.32-7.43) VBG pCO2 (40-60) mmHg VBG HCO3 mmol/L VBG Total CO2 (22-28) mmol/L VBG O2 Sat (Calc) (40-65) % VBG Base Excess (0.0-2.0) mmol/L VBG Potassium (3.6-5.2) mmol/L A-a O2 Difference mm/Hg Respiratory Index Glucose (65-105) mg/dl Lactate (0.7-2.1) mmol/L Vent Mode Mechanical Rate FiO2 % Tidal Volume PEEP Crit Value Called To Crit Value Called By Crit Value Read Back Blood Gas Notified Time Sodium (132-148) mmol/L Potassium (3.6-5.2) mmol/L Chloride (98-107) mmol/L Carbon Dioxide (22-30) mmol/L Anion Gap (10-20) BUN (7-17) mg/dL Creatinine (0.7-1.2) mg/dL Est GFR ( Amer) Est GFR (Non-Af Amer) POC Glucose (mg/dL) 86 (65-110) mg/dL Random Glucose (65-105) mg/dL Calcium (8.6-10.4) mg/dl Phosphorus (2.5-4.5) mg/dL Magnesium (1.6-2.3) mg/dL Total Bilirubin (0.2-1.3) mg/dL AST (14-36) U/L ALT (9-52) U/L Alkaline Phosphatase (38-126) U/L Total Creatine Kinase (30-135) U/L CK-MB (Mass) (0.0-3.38) ng/mL Troponin I (0.00-0.120) ng/mL NT-Pro-B Natriuret Pep (0-900) pg/mL Total Protein (6.3-8.3) g/dL Albumin (3.5-5.0) g/dL Globulin (2.2-3.9) gm/dL Albumin/Globulin Ratio (1.0-2.1) Lipase (23-300) U/L Arterial Blood Potassium (3.6-5.2) mmol/L Venous Blood Potassium (3.6-5.2) mmol/L Urine Color (YELLOW) Urine Clarity (Clear) Urine pH (5.0-8.0) Ur Specific Matthews (1.003-1.030) Urine Protein (NEGATIVE) mg/dL Urine Glucose (UA) (Normal) mg/dL Urine Ketones (NEGATIVE) mg/dL Urine Blood (NEGATIVE) Urine Nitrate (NEGATIVE) Urine Bilirubin (NEGATIVE) Urine Urobilinogen (0.2-1.0) mg/dL Ur Leukocyte Esterase (Negative) Trice/uL Urine WBC (Auto) (0-5) /hpf Urine RBC (Auto) (0-3) /hpf Ur Squamous Epith Cells (0-5) /hpf Urine Bacteria (<OCC) Urine Yeast (Budding) (NEGATIVE) /hpf Random Vancomycin 20.09 ug/mL 07/18/17 07/18/17 07/18/17 Range/Units 06:12 05:40 05:16 WBC (4.8-10.8) K/uL RBC (3.80-5.20) Mil/uL Hgb (11.0-16.0) g/dL Hct (34.0-47.0) % MCV (81.0-99.0) fL MCH (27.0-31.0) pg MCHC (33.0-37.0) g/dL RDW (11.5-14.5) % Plt Count (130-400) K/uL MPV (7.2-11.7) fL Neut % (Auto) (50.0-75.0) % Lymph % (Auto) (20.0-40.0) % Campbell % (Auto) (0.0-10.0) % Eos % (Auto) (0.0-4.0) % Baso % (Auto) (0.0-2.0) % Neut # (1.8-7.0) K/uL Lymph # (1.0-4.3) K/uL Campbell # (0.0-0.8) K/uL Eos # (0.0-0.7) K/uL Baso # (0.0-0.2) K/uL Neutrophils % (Manual) (50-75) % Lymphocytes % (Manual) (20-40) % Monocytes % (Manual) (0-10) % Platelet Estimate (NORMAL) Polychromasia Hypochromasia (manual) Anisocytosis (manual) PT (9.7-12.2) SECONDS INR APTT (21-34) SECONDS Puncture Site Lb pCO2 23 L (35-45) mm/Hg pO2 175 H (30-55) mm/Hg HCO3 18.7 L (21-28) mmol/L ABG pH 7.41 (7.35-7.45) ABG Total CO2 15.3 L (22-28) mmol/L ABG O2 Saturation 100.0 H (95-98) % ABG Base Excess -8.0 L (-2.0-3.0) mmol/L Fran Test Na ABG Potassium 3.5 L (3.6-5.2) mmol/L VBG pH (7.32-7.43) VBG pCO2 (40-60) mmHg VBG HCO3 mmol/L VBG Total CO2 (22-28) mmol/L VBG O2 Sat (Calc) (40-65) % VBG Base Excess (0.0-2.0) mmol/L VBG Potassium (3.6-5.2) mmol/L A-a O2 Difference 46.0 mm/Hg Respiratory Index 0.3 Glucose 87 (65-105) mg/dl Lactate 1.2 (0.7-2.1) mmol/L Vent Mode Prvc Mechanical Rate 14 FiO2 35.0 % Tidal Volume 450 PEEP 5 Crit Value Called To Crit Value Called By Crit Value Read Back Blood Gas Notified Time Sodium 141 146.0 (132-148) mmol/L Potassium 3.8 (3.6-5.2) mmol/L Chloride 110 H 117.0 H (98-107) mmol/L Carbon Dioxide 15 L (22-30) mmol/L Anion Gap 20 (10-20) BUN 36 H (7-17) mg/dL Creatinine 2.1 H (0.7-1.2) mg/dL Est GFR ( Amer) 29 Est GFR (Non-Af Amer) 24 POC Glucose (mg/dL) 71 (65-110) mg/dL Random Glucose 70 (65-105) mg/dL Calcium 6.3 L (8.6-10.4) mg/dl Phosphorus 4.7 H (2.5-4.5) mg/dL Magnesium 0.8 L* D (1.6-2.3) mg/dL Total Bilirubin 0.5 (0.2-1.3) mg/dL AST 59 H (14-36) U/L ALT 52 (9-52) U/L Alkaline Phosphatase 148 H D (38-126) U/L Total Creatine Kinase 108 (30-135) U/L CK-MB (Mass) 5.11 H (0.0-3.38) ng/mL Troponin I 0.3960 H* (0.00-0.120) ng/mL NT-Pro-B Natriuret Pep (0-900) pg/mL Total Protein 6.1 L (6.3-8.3) g/dL Albumin 2.6 L (3.5-5.0) g/dL Globulin 3.5 (2.2-3.9) gm/dL Albumin/Globulin Ratio 0.8 L (1.0-2.1) Lipase (23-300) U/L Arterial Blood Potassium 3.5 L (3.6-5.2) mmol/L Venous Blood Potassium (3.6-5.2) mmol/L Urine Color (YELLOW) Urine Clarity (Clear) Urine pH (5.0-8.0) Ur Specific Matthews (1.003-1.030) Urine Protein (NEGATIVE) mg/dL Urine Glucose (UA) (Normal) mg/dL Urine Ketones (NEGATIVE) mg/dL Urine Blood (NEGATIVE) Urine Nitrate (NEGATIVE) Urine Bilirubin (NEGATIVE) Urine Urobilinogen (0.2-1.0) mg/dL Ur Leukocyte Esterase (Negative) Trice/uL Urine WBC (Auto) (0-5) /hpf Urine RBC (Auto) (0-3) /hpf Ur Squamous Epith Cells (0-5) /hpf Urine Bacteria (<OCC) Urine Yeast (Budding) (NEGATIVE) /hpf Random Vancomycin ug/mL 07/17/17 07/17/17 07/17/17 Range/Units 23:32 22:30 22:15 WBC (4.8-10.8) K/uL RBC (3.80-5.20) Mil/uL Hgb (11.0-16.0) g/dL Hct (34.0-47.0) % MCV (81.0-99.0) fL MCH (27.0-31.0) pg MCHC (33.0-37.0) g/dL RDW (11.5-14.5) % Plt Count (130-400) K/uL MPV (7.2-11.7) fL Neut % (Auto) (50.0-75.0) % Lymph % (Auto) (20.0-40.0) % Campbell % (Auto) (0.0-10.0) % Eos % (Auto) (0.0-4.0) % Baso % (Auto) (0.0-2.0) % Neut # (1.8-7.0) K/uL Lymph # (1.0-4.3) K/uL Campbell # (0.0-0.8) K/uL Eos # (0.0-0.7) K/uL Baso # (0.0-0.2) K/uL Neutrophils % (Manual) (50-75) % Lymphocytes % (Manual) (20-40) % Monocytes % (Manual) (0-10) % Platelet Estimate (NORMAL) Polychromasia Hypochromasia (manual) Anisocytosis (manual) PT (9.7-12.2) SECONDS INR APTT (21-34) SECONDS Puncture Site Lb pCO2 21 L (35-45) mm/Hg pO2 183 H (30-55) mm/Hg HCO3 18.6 L (21-28) mmol/L ABG pH 7.43 (7.35-7.45) ABG Total CO2 14.5 L (22-28) mmol/L ABG O2 Saturation 99.5 H (95-98) % ABG Base Excess -8.2 L (-2.0-3.0) mmol/L Fran Test Na ABG Potassium 3.4 L (3.6-5.2) mmol/L VBG pH (7.32-7.43) VBG pCO2 (40-60) mmHg VBG HCO3 mmol/L VBG Total CO2 (22-28) mmol/L VBG O2 Sat (Calc) (40-65) % VBG Base Excess (0.0-2.0) mmol/L VBG Potassium (3.6-5.2) mmol/L A-a O2 Difference 40.0 mm/Hg Respiratory Index 0.2 Glucose 130 H (65-105) mg/dl Lactate 1.6 (0.7-2.1) mmol/L Vent Mode Prvc Mechanical Rate 14 FiO2 35.0 % Tidal Volume 450 PEEP 5 Crit Value Called To Crit Value Called By Crit Value Read Back Blood Gas Notified Time Sodium 136 143.0 (132-148) mmol/L Potassium 4.3 (3.6-5.2) mmol/L Chloride 106 116.0 H (98-107) mmol/L Carbon Dioxide 14 L (22-30) mmol/L Anion Gap 21 H (10-20) BUN 39 H (7-17) mg/dL Creatinine 2.5 H (0.7-1.2) mg/dL Est GFR ( Amer) 24 Est GFR (Non-Af Amer) 19 POC Glucose (mg/dL) 124 H (65-110) mg/dL Random Glucose 121 H (65-105) mg/dL Calcium 6.7 L (8.6-10.4) mg/dl Phosphorus (2.5-4.5) mg/dL Magnesium (1.6-2.3) mg/dL Total Bilirubin 0.5 (0.2-1.3) mg/dL AST 70 H D (14-36) U/L ALT 44 (9-52) U/L Alkaline Phosphatase 187 H (38-126) U/L Total Creatine Kinase 95 (30-135) U/L CK-MB (Mass) 5.55 H (0.0-3.38) ng/mL Troponin I 0.5950 H* (0.00-0.120) ng/mL NT-Pro-B Natriuret Pep (0-900) pg/mL Total Protein 6.5 (6.3-8.3) g/dL Albumin 2.5 L (3.5-5.0) g/dL Globulin 3.9 (2.2-3.9) gm/dL Albumin/Globulin Ratio 0.6 L (1.0-2.1) Lipase (23-300) U/L Arterial Blood Potassium 3.4 L (3.6-5.2) mmol/L Venous Blood Potassium (3.6-5.2) mmol/L Urine Color (YELLOW) Urine Clarity (Clear) Urine pH (5.0-8.0) Ur Specific Matthews (1.003-1.030) Urine Protein (NEGATIVE) mg/dL Urine Glucose (UA) (Normal) mg/dL Urine Ketones (NEGATIVE) mg/dL Urine Blood (NEGATIVE) Urine Nitrate (NEGATIVE) Urine Bilirubin (NEGATIVE) Urine Urobilinogen (0.2-1.0) mg/dL Ur Leukocyte Esterase (Negative) Trice/uL Urine WBC (Auto) (0-5) /hpf Urine RBC (Auto) (0-3) /hpf Ur Squamous Epith Cells (0-5) /hpf Urine Bacteria (<OCC) Urine Yeast (Budding) (NEGATIVE) /hpf Random Vancomycin ug/mL 07/17/17 07/17/17 07/17/17 Range/Units 18:20 16:22 14:36 WBC (4.8-10.8) K/uL RBC (3.80-5.20) Mil/uL Hgb (11.0-16.0) g/dL Hct (34.0-47.0) % MCV (81.0-99.0) fL MCH (27.0-31.0) pg MCHC (33.0-37.0) g/dL RDW (11.5-14.5) % Plt Count (130-400) K/uL MPV (7.2-11.7) fL Neut % (Auto) (50.0-75.0) % Lymph % (Auto) (20.0-40.0) % Campbell % (Auto) (0.0-10.0) % Eos % (Auto) (0.0-4.0) % Baso % (Auto) (0.0-2.0) % Neut # (1.8-7.0) K/uL Lymph # (1.0-4.3) K/uL Campbell # (0.0-0.8) K/uL Eos # (0.0-0.7) K/uL Baso # (0.0-0.2) K/uL Neutrophils % (Manual) (50-75) % Lymphocytes % (Manual) (20-40) % Monocytes % (Manual) (0-10) % Platelet Estimate (NORMAL) Polychromasia Hypochromasia (manual) Anisocytosis (manual) PT (9.7-12.2) SECONDS INR APTT (21-34) SECONDS Puncture Site Lb Femoral pCO2 23 L 19 L* (35-45) mm/Hg pO2 304 H 455 H (30-55) mm/Hg HCO3 18.3 L 11.2 L (21-28) mmol/L ABG pH 7.40 7.22 L (7.35-7.45) ABG Total CO2 14.9 L 8.4 L (22-28) mmol/L ABG O2 Saturation 100.4 H 100.4 H (95-98) % ABG Base Excess -8.6 L -17.7 L (-2.0-3.0) mmol/L Fran Test Na N/a ABG Potassium 3.9 4.6 (3.6-5.2) mmol/L VBG pH 7.22 L (7.32-7.43) VBG pCO2 19 L* (40-60) mmHg VBG HCO3 11.2 mmol/L VBG Total CO2 8.4 L (22-28) mmol/L VBG O2 Sat (Calc) 100.4 H (40-65) % VBG Base Excess -17.7 L (0.0-2.0) mmol/L VBG Potassium 4.6 (3.6-5.2) mmol/L A-a O2 Difference 95.0 234.0 mm/Hg Respiratory Index 0.3 0.5 Glucose 166 H 100 (65-105) mg/dl Lactate 3.9 H 7.4 H* (0.7-2.1) mmol/L Vent Mode Prvc Prvc Mechanical Rate 14 14 FiO2 60.0 100.0 % Tidal Volume 450 450 PEEP 5 5 Crit Value Called To Eloise wilburn Crit Value Called By Dov herndon glass checker Crit Value Read Back Y Blood Gas Notified Time 1440 Sodium 137.0 133.0 (132-148) mmol/L Potassium (3.6-5.2) mmol/L Chloride 112.0 H 106.0 (98-107) mmol/L Carbon Dioxide (22-30) mmol/L Anion Gap (10-20) BUN (7-17) mg/dL Creatinine (0.7-1.2) mg/dL Est GFR ( Amer) Est GFR (Non-Af Amer) POC Glucose (mg/dL) (65-110) mg/dL Random Glucose (65-105) mg/dL Calcium (8.6-10.4) mg/dl Phosphorus (2.5-4.5) mg/dL Magnesium (1.6-2.3) mg/dL Total Bilirubin (0.2-1.3) mg/dL AST (14-36) U/L ALT (9-52) U/L Alkaline Phosphatase (38-126) U/L Total Creatine Kinase (30-135) U/L CK-MB (Mass) (0.0-3.38) ng/mL Troponin I (0.00-0.120) ng/mL NT-Pro-B Natriuret Pep (0-900) pg/mL Total Protein (6.3-8.3) g/dL Albumin (3.5-5.0) g/dL Globulin (2.2-3.9) gm/dL Albumin/Globulin Ratio (1.0-2.1) Lipase (23-300) U/L Arterial Blood Potassium 3.9 4.6 (3.6-5.2) mmol/L Venous Blood Potassium 4.6 (3.6-5.2) mmol/L Urine Color Yellow (YELLOW) Urine Clarity Turbid (Clear) Urine pH 5.0 (5.0-8.0) Ur Specific Matthews 1.026 (1.003-1.030) Urine Protein 3+ H (NEGATIVE) mg/dL Urine Glucose (UA) Normal (Normal) mg/dL Urine Ketones Trace (NEGATIVE) mg/dL Urine Blood 2+ H (NEGATIVE) Urine Nitrate Negative (NEGATIVE) Urine Bilirubin Negative (NEGATIVE) Urine Urobilinogen Normal (0.2-1.0) mg/dL Ur Leukocyte Esterase 2+ H (Negative) Trice/uL Urine WBC (Auto) 9194 H (0-5) /hpf Urine RBC (Auto) 269 H (0-3) /hpf Ur Squamous Epith Cells 5 (0-5) /hpf Urine Bacteria Many H (<OCC) Urine Yeast (Budding) Many H (NEGATIVE) /hpf Random Vancomycin ug/mL 07/17/17 07/17/17 07/17/17 Range/Units 14:00 14:00 14:00 WBC 21.7 H D (4.8-10.8) K/uL RBC 4.34 (3.80-5.20) Mil/uL Hgb 11.8 (11.0-16.0) g/dL Hct 37.8 (34.0-47.0) % MCV 87.1 D (81.0-99.0) fL MCH 27.1 (27.0-31.0) pg MCHC 31.2 L (33.0-37.0) g/dL RDW 16.0 H (11.5-14.5) % Plt Count 332 (130-400) K/uL MPV 8.0 (7.2-11.7) fL Neut % (Auto) 80.6 H (50.0-75.0) % Lymph % (Auto) 15.4 L (20.0-40.0) % Campbell % (Auto) 3.4 (0.0-10.0) % Eos % (Auto) 0.2 (0.0-4.0) % Baso % (Auto) 0.4 (0.0-2.0) % Neut # 17.5 H (1.8-7.0) K/uL Lymph # 3.3 (1.0-4.3) K/uL Campbell # 0.7 (0.0-0.8) K/uL Eos # 0.1 (0.0-0.7) K/uL Baso # 0.1 (0.0-0.2) K/uL Neutrophils % (Manual) (50-75) % Lymphocytes % (Manual) (20-40) % Monocytes % (Manual) (0-10) % Platelet Estimate (NORMAL) Polychromasia Hypochromasia (manual) Anisocytosis (manual) PT 13.0 H (9.7-12.2) SECONDS INR 1.2 APTT 34 (21-34) SECONDS Puncture Site pCO2 (35-45) mm/Hg pO2 (30-55) mm/Hg HCO3 (21-28) mmol/L ABG pH (7.35-7.45) ABG Total CO2 (22-28) mmol/L ABG O2 Saturation (95-98) % ABG Base Excess (-2.0-3.0) mmol/L Fran Test ABG Potassium (3.6-5.2) mmol/L VBG pH (7.32-7.43) VBG pCO2 (40-60) mmHg VBG HCO3 mmol/L VBG Total CO2 (22-28) mmol/L VBG O2 Sat (Calc) (40-65) % VBG Base Excess (0.0-2.0) mmol/L VBG Potassium (3.6-5.2) mmol/L A-a O2 Difference mm/Hg Respiratory Index Glucose (65-105) mg/dl Lactate (0.7-2.1) mmol/L Vent Mode Mechanical Rate FiO2 % Tidal Volume PEEP Crit Value Called To Crit Value Called By Crit Value Read Back Blood Gas Notified Time Sodium 129 L (132-148) mmol/L Potassium 6.3 H* D (3.6-5.2) mmol/L Chloride 97 L (98-107) mmol/L Carbon Dioxide 5 L* D (22-30) mmol/L Anion Gap 33 H (10-20) BUN 45 H (7-17) mg/dL Creatinine 2.9 H (0.7-1.2) mg/dL Est GFR ( Amer) 20 Est GFR (Non-Af Amer) 16 POC Glucose (mg/dL) (65-110) mg/dL Random Glucose 71 (65-105) mg/dL Calcium 8.1 L (8.6-10.4) mg/dl Phosphorus (2.5-4.5) mg/dL Magnesium (1.6-2.3) mg/dL Total Bilirubin 0.5 (0.2-1.3) mg/dL AST 51 H D (14-36) U/L ALT 29 (9-52) U/L Alkaline Phosphatase 209 H (38-126) U/L Total Creatine Kinase (30-135) U/L CK-MB (Mass) (0.0-3.38) ng/mL Troponin I 0.0390 (0.00-0.120) ng/mL NT-Pro-B Natriuret Pep 2280 H (0-900) pg/mL Total Protein 6.9 (6.3-8.3) g/dL Albumin 2.8 L (3.5-5.0) g/dL Globulin 4.2 H (2.2-3.9) gm/dL Albumin/Globulin Ratio 0.7 L (1.0-2.1) Lipase 183 (23-300) U/L Arterial Blood Potassium (3.6-5.2) mmol/L Venous Blood Potassium (3.6-5.2) mmol/L Urine Color (YELLOW) Urine Clarity (Clear) Urine pH (5.0-8.0) Ur Specific Matthews (1.003-1.030) Urine Protein (NEGATIVE) mg/dL Urine Glucose (UA) (Normal) mg/dL Urine Ketones (NEGATIVE) mg/dL Urine Blood (NEGATIVE) Urine Nitrate (NEGATIVE) Urine Bilirubin (NEGATIVE) Urine Urobilinogen (0.2-1.0) mg/dL Ur Leukocyte Esterase (Negative) Trice/uL Urine WBC (Auto) (0-5) /hpf Urine RBC (Auto) (0-3) /hpf Ur Squamous Epith Cells (0-5) /hpf Urine Bacteria (<OCC) Urine Yeast (Budding) (NEGATIVE) /hpf Random Vancomycin ug/mL Laboratory Results - last 24 hr 07/17/17 07/17/17 07/17/17 14:00 14:00 14:00 WBC 21.7 H D RBC 4.34 Hgb 11.8 Hct 37.8 MCV 87.1 D MCH 27.1 MCHC 31.2 L RDW 16.0 H Plt Count 332 MPV 8.0 Neut % (Auto) 80.6 H Lymph % (Auto) 15.4 L Campbell % (Auto) 3.4 Eos % (Auto) 0.2 Baso % (Auto) 0.4 Neut # 17.5 H Lymph # 3.3 Campbell # 0.7 Eos # 0.1 Baso # 0.1 Neutrophils % (Manual) Lymphocytes % (Manual) Monocytes % (Manual) Platelet Estimate Polychromasia Hypochromasia (manual) Anisocytosis (manual) PT 13.0 H INR 1.2 APTT 34 Puncture Site pCO2 pO2 HCO3 ABG pH ABG Total CO2 ABG O2 Saturation ABG Base Excess Fran Test ABG Potassium VBG pH VBG pCO2 VBG HCO3 VBG Total CO2 VBG O2 Sat (Calc) VBG Base Excess VBG Potassium A-a O2 Difference Respiratory Index Glucose Lactate Vent Mode Mechanical Rate FiO2 Tidal Volume PEEP Crit Value Called To Crit Value Called By Crit Value Read Back Blood Gas Notified Time Sodium 129 L Potassium 6.3 H* D Chloride 97 L Carbon Dioxide 5 L* D Anion Gap 33 H BUN 45 H Creatinine 2.9 H Est GFR ( Amer) 20 Est GFR (Non-Af Amer) 16 POC Glucose (mg/dL) Random Glucose 71 Calcium 8.1 L Phosphorus Magnesium Total Bilirubin 0.5 AST 51 H D ALT 29 Alkaline Phosphatase 209 H Total Creatine Kinase CK-MB (Mass) Troponin I 0.0390 NT-Pro-B Natriuret Pep 2280 H Total Protein 6.9 Albumin 2.8 L Globulin 4.2 H Albumin/Globulin Ratio 0.7 L Lipase 183 Arterial Blood Potassium Venous Blood Potassium Urine Color Urine Clarity Urine pH Ur Specific Matthews Urine Protein Urine Glucose (UA) Urine Ketones Urine Blood Urine Nitrate Urine Bilirubin Urine Urobilinogen Ur Leukocyte Esterase Urine WBC (Auto) Urine RBC (Auto) Ur Squamous Epith Cells Urine Bacteria Urine Yeast (Budding) Random Vancomycin 07/17/17 07/17/17 07/17/17 14:36 16:22 18:20 WBC RBC Hgb Hct MCV MCH MCHC RDW Plt Count MPV Neut % (Auto) Lymph % (Auto) Campbell % (Auto) Eos % (Auto) Baso % (Auto) Neut # Lymph # Campbell # Eos # Baso # Neutrophils % (Manual) Lymphocytes % (Manual) Monocytes % (Manual) Platelet Estimate Polychromasia Hypochromasia (manual) Anisocytosis (manual) PT INR APTT Puncture Site Femoral Lb pCO2 19 L* 23 L pO2 455 H 304 H HCO3 11.2 L 18.3 L ABG pH 7.22 L 7.40 ABG Total CO2 8.4 L 14.9 L ABG O2 Saturation 100.4 H 100.4 H ABG Base Excess -17.7 L -8.6 L Fran Test N/a Na ABG Potassium 4.6 3.9 VBG pH 7.22 L VBG pCO2 19 L* VBG HCO3 11.2 VBG Total CO2 8.4 L VBG O2 Sat (Calc) 100.4 H VBG Base Excess -17.7 L VBG Potassium 4.6 A-a O2 Difference 234.0 95.0 Respiratory Index 0.5 0.3 Glucose 100 166 H Lactate 7.4 H* 3.9 H Vent Mode Prvc Prvc Mechanical Rate 14 14 FiO2 100.0 60.0 Tidal Volume 450 450 PEEP 5 5 Crit Value Called To Eloise wilburn Crit Value Called By Dov herndon glass checker Crit Value Read Back Y Blood Gas Notified Time 1440 Sodium 133.0 137.0 Potassium Chloride 106.0 112.0 H Carbon Dioxide Anion Gap BUN Creatinine Est GFR ( Amer) Est GFR (Non-Af Amer) POC Glucose (mg/dL) Random Glucose Calcium Phosphorus Magnesium Total Bilirubin AST ALT Alkaline Phosphatase Total Creatine Kinase CK-MB (Mass) Troponin I NT-Pro-B Natriuret Pep Total Protein Albumin Globulin Albumin/Globulin Ratio Lipase Arterial Blood Potassium 4.6 3.9 Venous Blood Potassium 4.6 Urine Color Yellow Urine Clarity Turbid Urine pH 5.0 Ur Specific Matthews 1.026 Urine Protein 3+ H Urine Glucose (UA) Normal Urine Ketones Trace Urine Blood 2+ H Urine Nitrate Negative Urine Bilirubin Negative Urine Urobilinogen Normal Ur Leukocyte Esterase 2+ H Urine WBC (Auto) 9194 H Urine RBC (Auto) 269 H Ur Squamous Epith Cells 5 Urine Bacteria Many H Urine Yeast (Budding) Many H Random Vancomycin 07/17/17 07/17/17 07/17/17 22:15 22:30 23:32 WBC RBC Hgb Hct MCV MCH MCHC RDW Plt Count MPV Neut % (Auto) Lymph % (Auto) Campbell % (Auto) Eos % (Auto) Baso % (Auto) Neut # Lymph # Campbell # Eos # Baso # Neutrophils % (Manual) Lymphocytes % (Manual) Monocytes % (Manual) Platelet Estimate Polychromasia Hypochromasia (manual) Anisocytosis (manual) PT INR APTT Puncture Site Lb pCO2 21 L pO2 183 H HCO3 18.6 L ABG pH 7.43 ABG Total CO2 14.5 L ABG O2 Saturation 99.5 H ABG Base Excess -8.2 L Fran Test Na ABG Potassium 3.4 L VBG pH VBG pCO2 VBG HCO3 VBG Total CO2 VBG O2 Sat (Calc) VBG Base Excess VBG Potassium A-a O2 Difference 40.0 Respiratory Index 0.2 Glucose 130 H Lactate 1.6 Vent Mode Prvc Mechanical Rate 14 FiO2 35.0 Tidal Volume 450 PEEP 5 Crit Value Called To Crit Value Called By Crit Value Read Back Blood Gas Notified Time Sodium 143.0 136 Potassium 4.3 Chloride 116.0 H 106 Carbon Dioxide 14 L Anion Gap 21 H BUN 39 H Creatinine 2.5 H Est GFR ( Amer) 24 Est GFR (Non-Af Amer) 19 POC Glucose (mg/dL) 124 H Random Glucose 121 H Calcium 6.7 L Phosphorus Magnesium Total Bilirubin 0.5 AST 70 H D ALT 44 Alkaline Phosphatase 187 H Total Creatine Kinase 95 CK-MB (Mass) 5.55 H Troponin I 0.5950 H* NT-Pro-B Natriuret Pep Total Protein 6.5 Albumin 2.5 L Globulin 3.9 Albumin/Globulin Ratio 0.6 L Lipase Arterial Blood Potassium 3.4 L Venous Blood Potassium Urine Color Urine Clarity Urine pH Ur Specific Matthews Urine Protein Urine Glucose (UA) Urine Ketones Urine Blood Urine Nitrate Urine Bilirubin Urine Urobilinogen Ur Leukocyte Esterase Urine WBC (Auto) Urine RBC (Auto) Ur Squamous Epith Cells Urine Bacteria Urine Yeast (Budding) Random Vancomycin 07/18/17 07/18/17 07/18/17 05:16 05:40 06:12 WBC RBC Hgb Hct MCV MCH MCHC RDW Plt Count MPV Neut % (Auto) Lymph % (Auto) Campbell % (Auto) Eos % (Auto) Baso % (Auto) Neut # Lymph # Campbell # Eos # Baso # Neutrophils % (Manual) Lymphocytes % (Manual) Monocytes % (Manual) Platelet Estimate Polychromasia Hypochromasia (manual) Anisocytosis (manual) PT INR APTT Puncture Site Lb pCO2 23 L pO2 175 H HCO3 18.7 L ABG pH 7.41 ABG Total CO2 15.3 L ABG O2 Saturation 100.0 H ABG Base Excess -8.0 L Fran Test Na ABG Potassium 3.5 L VBG pH VBG pCO2 VBG HCO3 VBG Total CO2 VBG O2 Sat (Calc) VBG Base Excess VBG Potassium A-a O2 Difference 46.0 Respiratory Index 0.3 Glucose 87 Lactate 1.2 Vent Mode Prvc Mechanical Rate 14 FiO2 35.0 Tidal Volume 450 PEEP 5 Crit Value Called To Crit Value Called By Crit Value Read Back Blood Gas Notified Time Sodium 146.0 141 Potassium 3.8 Chloride 117.0 H 110 H Carbon Dioxide 15 L Anion Gap 20 BUN 36 H Creatinine 2.1 H Est GFR ( Amer) 29 Est GFR (Non-Af Amer) 24 POC Glucose (mg/dL) 71 Random Glucose 70 Calcium 6.3 L Phosphorus 4.7 H Magnesium 0.8 L* D Total Bilirubin 0.5 AST 59 H ALT 52 Alkaline Phosphatase 148 H D Total Creatine Kinase 108 CK-MB (Mass) 5.11 H Troponin I 0.3960 H* NT-Pro-B Natriuret Pep Total Protein 6.1 L Albumin 2.6 L Globulin 3.5 Albumin/Globulin Ratio 0.8 L Lipase Arterial Blood Potassium 3.5 L Venous Blood Potassium Urine Color Urine Clarity Urine pH Ur Specific Matthews Urine Protein Urine Glucose (UA) Urine Ketones Urine Blood Urine Nitrate Urine Bilirubin Urine Urobilinogen Ur Leukocyte Esterase Urine WBC (Auto) Urine RBC (Auto) Ur Squamous Epith Cells Urine Bacteria Urine Yeast (Budding) Random Vancomycin 07/18/17 07/18/17 07/18/17 06:12 06:12 08:42 WBC 26.2 H RBC 3.84 Hgb 10.4 L Hct 32.1 L MCV 83.6 D MCH 27.2 MCHC 32.6 L RDW 15.4 H Plt Count 225 D MPV 7.7 Neut % (Auto) 87.2 H Lymph % (Auto) 8.0 L Campbell % (Auto) 4.5 Eos % (Auto) 0.2 Baso % (Auto) 0.1 Neut # 22.8 H Lymph # 2.1 Campbell # 1.2 H Eos # 0.0 Baso # 0.0 Neutrophils % (Manual) 88 H Lymphocytes % (Manual) 7 L Monocytes % (Manual) 5 Platelet Estimate Normal Polychromasia Slight Hypochromasia (manual) Slight Anisocytosis (manual) Slight PT INR APTT Puncture Site pCO2 pO2 HCO3 ABG pH ABG Total CO2 ABG O2 Saturation ABG Base Excess Fran Test ABG Potassium VBG pH VBG pCO2 VBG HCO3 VBG Total CO2 VBG O2 Sat (Calc) VBG Base Excess VBG Potassium A-a O2 Difference Respiratory Index Glucose Lactate Vent Mode Mechanical Rate FiO2 Tidal Volume PEEP Crit Value Called To Crit Value Called By Crit Value Read Back Blood Gas Notified Time Sodium Potassium Chloride Carbon Dioxide Anion Gap BUN Creatinine Est GFR ( Amer) Est GFR (Non-Af Amer) POC Glucose (mg/dL) 86 Random Glucose Calcium Phosphorus Magnesium Total Bilirubin AST ALT Alkaline Phosphatase Total Creatine Kinase CK-MB (Mass) Troponin I NT-Pro-B Natriuret Pep Total Protein Albumin Globulin Albumin/Globulin Ratio Lipase Arterial Blood Potassium Venous Blood Potassium Urine Color Urine Clarity Urine pH Ur Specific Matthews Urine Protein Urine Glucose (UA) Urine Ketones Urine Blood Urine Nitrate Urine Bilirubin Urine Urobilinogen Ur Leukocyte Esterase Urine WBC (Auto) Urine RBC (Auto) Ur Squamous Epith Cells Urine Bacteria Urine Yeast (Budding) Random Vancomycin 20.09 EKG/Cardiology Studies: Cardiology / EKG Studies 07/17/17 13:20 EKG [ELECTROCARDIOGRAM] Stat Comment: Mode Of Transportation: BED Reason For Exam: cp Isolation: Contact 07/17/17 13:23 ELECTROCARDIOGRAM Stat Comment: Mode Of Transportation: BED Reason For Exam: chest pain Isolation: Contact Fingerstick Blood Sugar Results: 124 Assessment/Plan - Assessment and Plan (Free Text) Assessment: Pt is a 62 y/o F presenting to ED via EMS for post-cardiac arrest evaluation. As per EMS, patient had a witnessed episode of cardiac arrest and went into PEA. Two epinephrines administered w/ ROSC. Pt presented to ED initially w/ EKG concerning for STEMI. Dr. Mohr called to bedside and Pt did not meet criteria for code heart. Additional hx limited secondary to Pts clinical condition. Patient is currently tolerating CPAP trials, blood pressure is hypotensive, on levophed. Assessment s/p Cardiac Arrest UTI Septic shock Hypertension (chronic) Arthritis Hyerparathyroidism Vesico-caecal fistula Ileostomy w/ Colostomy bag GERD b/l nephrostomy tubes Plan Neuro: awake and alert Sedation: discontinued propofol. Patient was placed on propofol for Right IJ TLC Pain: n/a Psych: n/a Cardio: S/p compressions and 2 doses of epinephrine for cardiac arrest. Norepinephrine Bitartrate 254 mls @ 15.24 mls/hr IV for hypotension. Pulm: CXR shows no active disease. Pt determined to not be a candidate for extubation because Pt is not hemodynamically stable. Vent Settings: rate 14 // fio2 35 // tv 450 // peep 5 ABG: pCO2 23 // pO2 175 // HCO3 18.7 // pH 7.41 Endo: Novolin R 5 unit IV stat. Random Glucose 71 GI: wound care for ileostomy 07/18 OGT placed, begin feeding : wound care for nephrostomies Renal: Na 141 // K 3.8 // Cl 110 // HCO3 1 5// BUN 36 // Cr 2.1 I/O: +3371.6 Heme/Onc: H/H: 10.4/32.1 Pt 13// PTT 34// INR 1.2 (07/18/17) MSK: no issues. ID: UTI v UROsepsis WBC 26.2. Vancomycin HCl 1 gm in NaCl 250 mls @ 133 mls/hr IVPB Q12. Imipenem/ Cilastin Sodium 250 mg in NaCl 100 mls @ 100 mls/hr IVPB Q6H. Meropenem 500 mg in NaCl 100 mls @ 100 mls/hr IVPB Q12H. f/u AM CBC Prophylaxis: DVT: Heparin SC Q8. SCDs GI: Protonix 40 mg IVP Daily discussed with Dr. Hilton Golden DO PGY1 - Date & Time Date: 07/18/17 Time: 12:01 <Shawn Canela - Last Filed: 07/18/17 17:44> CCU Objective - Vital Signs / Intake & Output Vital Signs (Last 4 hours): Vital Signs Temp Pulse Resp BP Pulse Ox 07/18/17 16:00 97.7 F 126 H 21 90/53 L 100 07/18/17 15:00 128 H 20 82/43 L 100 07/18/17 14:00 124 H 19 100/55 L 100 Intake and Output (Last 8hrs): Intake & Output 07/18/17 07/18/17 07/18/17 06:59 14:59 22:59 Intake Total 2270.0 2764.4 852.6 Output Total 350 Balance 1920.0 2764.4 852.6 Weight 74 lb Intake: IV 0 254 100 Intake, IV Amount 2270.0 2510.4 752.6 Right Medial Port PICC 0 300 200 Right PICC 270.0 210.4 52.6 Right lower leg osseous 2000 2000 500 Output: Drainage 350 Abdomen 200 Left Back 100 Right Back 50 - Medications Active Medications: Active Medications Generic Name Dose Route Start Last Admin Trade Name Freq PRN Reason Stop Dose Admin Al Hydrox/Mg Hydrox/Simethicone 30 ml 07/17/17 20:19 Maalox Plus 30 Ml PO Q4 PRN Heartburn Enoxaparin Sodium 30 mg 07/18/17 10:00 07/18/17 11:58 Lovenox SC 30 mg DAILY VISHNU Administration Norepinephrine Bitartrate 4 mg 254 mls @ 15.24 mls/hr 07/17/17 13:36 12:17 / Sodium Chloride IV 7.87 mcg/min .[id number] PRN 30 mls/hr TITRATE PER MD ORDER Administration Protocol 4 MCG/MIN Propofol 1,000 mg in 100 mls @ 2.177 mls/hr 07/17/17 14:22 07/18/17 17:37 Diprivan IV 77.16 mcg/kg/min .Q24H PRN 16.8 mls/hr TITRATE PER MD ORDER Administration Protocol 10 MCG/KG/MIN Meropenem 500 mg/ Sodium 100 mls @ 100 mls/hr 07/17/17 21:00 07/18/17 10:00 Chloride IVPB 100 mls/hr Q12H VISHNU Administration Sodium Bicarbonate 50 meq/ 1,050 mls @ 250 mls/hr 07/17/17 22:00 07/18/17 17: 39 Sodium Chloride IV 250 mls/hr .[id number] VISHNU Administration Vancomycin/Sodium Chloride 1 gm in 200 mls @ 133.333 mls/hr 07/18/17 14:15 14:00 Vancomycin 1 Gm/Ns 200 Ml IVPB 07/23/17 14:16 133.333 mls/hr Q12H VISHNU Administration Insulin Aspart 0 unit 07/17/17 22:00 07/18/17 17:40 Novolog SC Not Given ACHS VISHNU Protocol Lactobacillus Acidophilus 1 cap 07/18/17 10:00 07/18/17 11:59 Bacid Acidophilus PO 1 cap DAILY VISHNU Administration Metoclopramide HCl 10 mg 07/17/17 20:19 Reglan PO Q6 PRN Nausea/Vomiting Pantoprazole Sodium 40 mg 07/19/17 10:00 Protonix Susp PO 0600 VISHNU - Patient Studies Lab Studies: Microbiology Studies 07/17/17 13:35 Blood Culture - Preliminary Blood NO GROWTH AFTER 24 HOURS 07/17/17 13:15 Blood Culture - Preliminary Blood NO GROWTH AFTER 24 HOURS Lab Studies 07/18/17 07/18/17 07/18/17 Range/Units 17:32 16:02 11:57 WBC (4.8-10.8) K/uL RBC (3.80-5.20) Mil/uL Hgb (11.0-16.0) g/dL Hct (34.0-47.0) % MCV (81.0-99.0) fL MCH (27.0-31.0) pg MCHC (33.0-37.0) g/dL RDW (11.5-14.5) % Plt Count (130-400) K/uL MPV (7.2-11.7) fL Neut % (Auto) (50.0-75.0) % Lymph % (Auto) (20.0-40.0) % Campbell % (Auto) (0.0-10.0) % Eos % (Auto) (0.0-4.0) % Baso % (Auto) (0.0-2.0) % Neut # (1.8-7.0) K/uL Lymph # (1.0-4.3) K/uL Campbell # (0.0-0.8) K/uL Eos # (0.0-0.7) K/uL Baso # (0.0-0.2) K/uL Neutrophils % (Manual) (50-75) % Lymphocytes % (Manual) (20-40) % Monocytes % (Manual) (0-10) % Platelet Estimate (NORMAL) Polychromasia Hypochromasia (manual) Anisocytosis (manual) Puncture Site pCO2 (35-45) mm/Hg pO2 (80-100) mm/Hg HCO3 (21-28) mmol/L ABG pH (7.35-7.45) ABG Total CO2 (22-28) mmol/L ABG O2 Saturation (95-98) % ABG Base Excess (-2.0-3.0) mmol/L Fran Test ABG Potassium (3.6-5.2) mmol/L A-a O2 Difference mm/Hg Respiratory Index Sodium (132-148) mmol/l Chloride (98-107) mmol/L Glucose (65-105) mg/dl Lactate (0.7-2.1) mmol/L Vent Mode Mechanical Rate FiO2 % Tidal Volume PEEP Potassium (3.6-5.2) mmol/L Carbon Dioxide (22-30) mmol/L Anion Gap (10-20) BUN (7-17) mg/dL Creatinine (0.7-1.2) mg/dL Est GFR ( Amer) Est GFR (Non-Af Amer) POC Glucose (mg/dL) 99 97 (65-110) mg/dL Random Glucose (65-105) mg/dL Calcium (8.6-10.4) mg/dl Phosphorus (2.5-4.5) mg/dL Magnesium (1.6-2.3) mg/dL Total Bilirubin (0.2-1.3) mg/dL AST (14-36) U/L ALT (9-52) U/L Alkaline Phosphatase (38-126) U/L Total Creatine Kinase 77 (30-135) U/L CK-MB (Mass) 3.42 H (0.0-3.38) ng/mL Troponin I 0.1970 H* (0.00-0.120) ng/mL Total Protein (6.3-8.3) g/dL Albumin (3.5-5.0) g/dL Globulin (2.2-3.9) gm/dL Albumin/Globulin Ratio (1.0-2.1) Arterial Blood Potassium (3.6-5.2) mmol/L Random Vancomycin ug/mL 07/18/17 07/18/17 07/18/17 Range/Units 08:42 06:12 06:12 WBC 26.2 H (4.8-10.8) K/uL RBC 3.84 (3.80-5.20) Mil/uL Hgb 10.4 L (11.0-16.0) g/dL Hct 32.1 L (34.0-47.0) % MCV 83.6 D (81.0-99.0) fL MCH 27.2 (27.0-31.0) pg MCHC 32.6 L (33.0-37.0) g/dL RDW 15.4 H (11.5-14.5) % Plt Count 225 D (130-400) K/uL MPV 7.7 (7.2-11.7) fL Neut % (Auto) 87.2 H (50.0-75.0) % Lymph % (Auto) 8.0 L (20.0-40.0) % Campbell % (Auto) 4.5 (0.0-10.0) % Eos % (Auto) 0.2 (0.0-4.0) % Baso % (Auto) 0.1 (0.0-2.0) % Neut # 22.8 H (1.8-7.0) K/uL Lymph # 2.1 (1.0-4.3) K/uL Campbell # 1.2 H (0.0-0.8) K/uL Eos # 0.0 (0.0-0.7) K/uL Baso # 0.0 (0.0-0.2) K/uL Neutrophils % (Manual) 88 H (50-75) % Lymphocytes % (Manual) 7 L (20-40) % Monocytes % (Manual) 5 (0-10) % Platelet Estimate Normal (NORMAL) Polychromasia Slight Hypochromasia (manual) Slight Anisocytosis (manual) Slight Puncture Site pCO2 (35-45) mm/Hg pO2 (80-100) mm/Hg HCO3 (21-28) mmol/L ABG pH (7.35-7.45) ABG Total CO2 (22-28) mmol/L ABG O2 Saturation (95-98) % ABG Base Excess (-2.0-3.0) mmol/L Fran Test ABG Potassium (3.6-5.2) mmol/L A-a O2 Difference mm/Hg Respiratory Index Sodium (132-148) mmol/l Chloride (98-107) mmol/L Glucose (65-105) mg/dl Lactate (0.7-2.1) mmol/L Vent Mode Mechanical Rate FiO2 % Tidal Volume PEEP Potassium (3.6-5.2) mmol/L Carbon Dioxide (22-30) mmol/L Anion Gap (10-20) BUN (7-17) mg/dL Creatinine (0.7-1.2) mg/dL Est GFR ( Amer) Est GFR (Non-Af Amer) POC Glucose (mg/dL) 86 (65-110) mg/dL Random Glucose (65-105) mg/dL Calcium (8.6-10.4) mg/dl Phosphorus (2.5-4.5) mg/dL Magnesium (1.6-2.3) mg/dL Total Bilirubin (0.2-1.3) mg/dL AST (14-36) U/L ALT (9-52) U/L Alkaline Phosphatase (38-126) U/L Total Creatine Kinase (30-135) U/L CK-MB (Mass) (0.0-3.38) ng/mL Troponin I (0.00-0.120) ng/mL Total Protein (6.3-8.3) g/dL Albumin (3.5-5.0) g/dL Globulin (2.2-3.9) gm/dL Albumin/Globulin Ratio (1.0-2.1) Arterial Blood Potassium (3.6-5.2) mmol/L Random Vancomycin 20.09 ug/mL 07/18/17 07/18/17 07/18/17 Range/Units 06:12 05:40 05:16 WBC (4.8-10.8) K/uL RBC (3.80-5.20) Mil/uL Hgb (11.0-16.0) g/dL Hct (34.0-47.0) % MCV (81.0-99.0) fL MCH (27.0-31.0) pg MCHC (33.0-37.0) g/dL RDW (11.5-14.5) % Plt Count (130-400) K/uL MPV (7.2-11.7) fL Neut % (Auto) (50.0-75.0) % Lymph % (Auto) (20.0-40.0) % Campbell % (Auto) (0.0-10.0) % Eos % (Auto) (0.0-4.0) % Baso % (Auto) (0.0-2.0) % Neut # (1.8-7.0) K/uL Lymph # (1.0-4.3) K/uL Campbell # (0.0-0.8) K/uL Eos # (0.0-0.7) K/uL Baso # (0.0-0.2) K/uL Neutrophils % (Manual) (50-75) % Lymphocytes % (Manual) (20-40) % Monocytes % (Manual) (0-10) % Platelet Estimate (NORMAL) Polychromasia Hypochromasia (manual) Anisocytosis (manual) Puncture Site Lb pCO2 23 L (35-45) mm/Hg pO2 175 H (80-100) mm/Hg HCO3 18.7 L (21-28) mmol/L ABG pH 7.41 (7.35-7.45) ABG Total CO2 15.3 L (22-28) mmol/L ABG O2 Saturation 100.0 H (95-98) % ABG Base Excess -8.0 L (-2.0-3.0) mmol/L Fran Test Na ABG Potassium 3.5 L (3.6-5.2) mmol/L A-a O2 Difference 46.0 mm/Hg Respiratory Index 0.3 Sodium 141 146.0 (132-148) mmol/l Chloride 110 H 117.0 H (98-107) mmol/L Glucose 87 (65-105) mg/dl Lactate 1.2 (0.7-2.1) mmol/L Vent Mode Prvc Mechanical Rate 14 FiO2 35.0 % Tidal Volume 450 PEEP 5 Potassium 3.8 (3.6-5.2) mmol/L Carbon Dioxide 15 L (22-30) mmol/L Anion Gap 20 (10-20) BUN 36 H (7-17) mg/dL Creatinine 2.1 H (0.7-1.2) mg/dL Est GFR ( Amer) 29 Est GFR (Non-Af Amer) 24 POC Glucose (mg/dL) 71 (65-110) mg/dL Random Glucose 70 (65-105) mg/dL Calcium 6.3 L (8.6-10.4) mg/dl Phosphorus 4.7 H (2.5-4.5) mg/dL Magnesium 0.8 L* D (1.6-2.3) mg/dL Total Bilirubin 0.5 (0.2-1.3) mg/dL AST 59 H (14-36) U/L ALT 52 (9-52) U/L Alkaline Phosphatase 148 H D (38-126) U/L Total Creatine Kinase 108 (30-135) U/L CK-MB (Mass) 5.11 H (0.0-3.38) ng/mL Troponin I 0.3960 H* (0.00-0.120) ng/mL Total Protein 6.1 L (6.3-8.3) g/dL Albumin 2.6 L (3.5-5.0) g/dL Globulin 3.5 (2.2-3.9) gm/dL Albumin/Globulin Ratio 0.8 L (1.0-2.1) Arterial Blood Potassium 3.5 L (3.6-5.2) mmol/L Random Vancomycin ug/mL 07/17/17 07/17/17 07/17/17 Range/Units 23:32 22:30 22:15 WBC (4.8-10.8) K/uL RBC (3.80-5.20) Mil/uL Hgb (11.0-16.0) g/dL Hct (34.0-47.0) % MCV (81.0-99.0) fL MCH (27.0-31.0) pg MCHC (33.0-37.0) g/dL RDW (11.5-14.5) % Plt Count (130-400) K/uL MPV (7.2-11.7) fL Neut % (Auto) (50.0-75.0) % Lymph % (Auto) (20.0-40.0) % Campbell % (Auto) (0.0-10.0) % Eos % (Auto) (0.0-4.0) % Baso % (Auto) (0.0-2.0) % Neut # (1.8-7.0) K/uL Lymph # (1.0-4.3) K/uL Campbell # (0.0-0.8) K/uL Eos # (0.0-0.7) K/uL Baso # (0.0-0.2) K/uL Neutrophils % (Manual) (50-75) % Lymphocytes % (Manual) (20-40) % Monocytes % (Manual) (0-10) % Platelet Estimate (NORMAL) Polychromasia Hypochromasia (manual) Anisocytosis (manual) Puncture Site Lb pCO2 21 L (35-45) mm/Hg pO2 183 H (80-100) mm/Hg HCO3 18.6 L (21-28) mmol/L ABG pH 7.43 (7.35-7.45) ABG Total CO2 14.5 L (22-28) mmol/L ABG O2 Saturation 99.5 H (95-98) % ABG Base Excess -8.2 L (-2.0-3.0) mmol/L Fran Test Na ABG Potassium 3.4 L (3.6-5.2) mmol/L A-a O2 Difference 40.0 mm/Hg Respiratory Index 0.2 Sodium 136 143.0 (132-148) mmol/l Chloride 106 116.0 H (98-107) mmol/L Glucose 130 H (65-105) mg/dl Lactate 1.6 (0.7-2.1) mmol/L Vent Mode Prvc Mechanical Rate 14 FiO2 35.0 % Tidal Volume 450 PEEP 5 Potassium 4.3 (3.6-5.2) mmol/L Carbon Dioxide 14 L (22-30) mmol/L Anion Gap 21 H (10-20) BUN 39 H (7-17) mg/dL Creatinine 2.5 H (0.7-1.2) mg/dL Est GFR ( Amer) 24 Est GFR (Non-Af Amer) 19 POC Glucose (mg/dL) 124 H (65-110) mg/dL Random Glucose 121 H (65-105) mg/dL Calcium 6.7 L (8.6-10.4) mg/dl Phosphorus (2.5-4.5) mg/dL Magnesium (1.6-2.3) mg/dL Total Bilirubin 0.5 (0.2-1.3) mg/dL AST 70 H D (14-36) U/L ALT 44 (9-52) U/L Alkaline Phosphatase 187 H (38-126) U/L Total Creatine Kinase 95 (30-135) U/L CK-MB (Mass) 5.55 H (0.0-3.38) ng/mL Troponin I 0.5950 H* (0.00-0.120) ng/mL Total Protein 6.5 (6.3-8.3) g/dL Albumin 2.5 L (3.5-5.0) g/dL Globulin 3.9 (2.2-3.9) gm/dL Albumin/Globulin Ratio 0.6 L (1.0-2.1) Arterial Blood Potassium 3.4 L (3.6-5.2) mmol/L Random Vancomycin ug/mL 07/17/17 Range/Units 18:20 WBC (4.8-10.8) K/uL RBC (3.80-5.20) Mil/uL Hgb (11.0-16.0) g/dL Hct (34.0-47.0) % MCV (81.0-99.0) fL MCH (27.0-31.0) pg MCHC (33.0-37.0) g/dL RDW (11.5-14.5) % Plt Count (130-400) K/uL MPV (7.2-11.7) fL Neut % (Auto) (50.0-75.0) % Lymph % (Auto) (20.0-40.0) % Campbell % (Auto) (0.0-10.0) % Eos % (Auto) (0.0-4.0) % Baso % (Auto) (0.0-2.0) % Neut # (1.8-7.0) K/uL Lymph # (1.0-4.3) K/uL Campbell # (0.0-0.8) K/uL Eos # (0.0-0.7) K/uL Baso # (0.0-0.2) K/uL Neutrophils % (Manual) (50-75) % Lymphocytes % (Manual) (20-40) % Monocytes % (Manual) (0-10) % Platelet Estimate (NORMAL) Polychromasia Hypochromasia (manual) Anisocytosis (manual) Puncture Site Lb pCO2 23 L (35-45) mm/Hg pO2 304 H (80-100) mm/Hg HCO3 18.3 L (21-28) mmol/L ABG pH 7.40 (7.35-7.45) ABG Total CO2 14.9 L (22-28) mmol/L ABG O2 Saturation 100.4 H (95-98) % ABG Base Excess -8.6 L (-2.0-3.0) mmol/L Fran Test Na ABG Potassium 3.9 (3.6-5.2) mmol/L A-a O2 Difference 95.0 mm/Hg Respiratory Index 0.3 Sodium 137.0 (132-148) mmol/l Chloride 112.0 H (98-107) mmol/L Glucose 166 H (65-105) mg/dl Lactate 3.9 H (0.7-2.1) mmol/L Vent Mode Prvc Mechanical Rate 14 FiO2 60.0 % Tidal Volume 450 PEEP 5 Potassium (3.6-5.2) mmol/L Carbon Dioxide (22-30) mmol/L Anion Gap (10-20) BUN (7-17) mg/dL Creatinine (0.7-1.2) mg/dL Est GFR ( Amer) Est GFR (Non-Af Amer) POC Glucose (mg/dL) (65-110) mg/dL Random Glucose (65-105) mg/dL Calcium (8.6-10.4) mg/dl Phosphorus (2.5-4.5) mg/dL Magnesium (1.6-2.3) mg/dL Total Bilirubin (0.2-1.3) mg/dL AST (14-36) U/L ALT (9-52) U/L Alkaline Phosphatase (38-126) U/L Total Creatine Kinase (30-135) U/L CK-MB (Mass) (0.0-3.38) ng/mL Troponin I (0.00-0.120) ng/mL Total Protein (6.3-8.3) g/dL Albumin (3.5-5.0) g/dL Globulin (2.2-3.9) gm/dL Albumin/Globulin Ratio (1.0-2.1) Arterial Blood Potassium 3.9 (3.6-5.2) mmol/L Random Vancomycin ug/mL Laboratory Results - last 24 hr 07/17/17 07/17/17 07/17/17 18:20 22:15 22:30 WBC RBC Hgb Hct MCV MCH MCHC RDW Plt Count MPV Neut % (Auto) Lymph % (Auto) Campbell % (Auto) Eos % (Auto) Baso % (Auto) Neut # Lymph # Campbell # Eos # Baso # Neutrophils % (Manual) Lymphocytes % (Manual) Monocytes % (Manual) Platelet Estimate Polychromasia Hypochromasia (manual) Anisocytosis (manual) Puncture Site Lb Lb pCO2 23 L 21 L pO2 304 H 183 H HCO3 18.3 L 18.6 L ABG pH 7.40 7.43 ABG Total CO2 14.9 L 14.5 L ABG O2 Saturation 100.4 H 99.5 H ABG Base Excess -8.6 L -8.2 L Fran Test Na Na ABG Potassium 3.9 3.4 L A-a O2 Difference 95.0 40.0 Respiratory Index 0.3 0.2 Sodium 137.0 143.0 Chloride 112.0 H 116.0 H Glucose 166 H 130 H Lactate 3.9 H 1.6 Vent Mode Prvc Prvc Mechanical Rate 14 14 FiO2 60.0 35.0 Tidal Volume 450 450 PEEP 5 5 Potassium Carbon Dioxide Anion Gap BUN Creatinine Est GFR ( Amer) Est GFR (Non-Af Amer) POC Glucose (mg/dL) 124 H Random Glucose Calcium Phosphorus Magnesium Total Bilirubin AST ALT Alkaline Phosphatase Total Creatine Kinase CK-MB (Mass) Troponin I Total Protein Albumin Globulin Albumin/Globulin Ratio Arterial Blood Potassium 3.9 3.4 L Random Vancomycin 07/17/17 07/18/17 07/18/17 23:32 05:16 05:40 WBC RBC Hgb Hct MCV MCH MCHC RDW Plt Count MPV Neut % (Auto) Lymph % (Auto) Campbell % (Auto) Eos % (Auto) Baso % (Auto) Neut # Lymph # Campbell # Eos # Baso # Neutrophils % (Manual) Lymphocytes % (Manual) Monocytes % (Manual) Platelet Estimate Polychromasia Hypochromasia (manual) Anisocytosis (manual) Puncture Site Lb pCO2 23 L pO2 175 H HCO3 18.7 L ABG pH 7.41 ABG Total CO2 15.3 L ABG O2 Saturation 100.0 H ABG Base Excess -8.0 L Fran Test Na ABG Potassium 3.5 L A-a O2 Difference 46.0 Respiratory Index 0.3 Sodium 136 146.0 Chloride 106 117.0 H Glucose 87 Lactate 1.2 Vent Mode Prvc Mechanical Rate 14 FiO2 35.0 Tidal Volume 450 PEEP 5 Potassium 4.3 Carbon Dioxide 14 L Anion Gap 21 H BUN 39 H Creatinine 2.5 H Est GFR ( Amer) 24 Est GFR (Non-Af Amer) 19 POC Glucose (mg/dL) 71 Random Glucose 121 H Calcium 6.7 L Phosphorus Magnesium Total Bilirubin 0.5 AST 70 H D ALT 44 Alkaline Phosphatase 187 H Total Creatine Kinase 95 CK-MB (Mass) 5.55 H Troponin I 0.5950 H* Total Protein 6.5 Albumin 2.5 L Globulin 3.9 Albumin/Globulin Ratio 0.6 L Arterial Blood Potassium 3.5 L Random Vancomycin 07/18/17 07/18/17 07/18/17 06:12 06:12 06:12 WBC 26.2 H RBC 3.84 Hgb 10.4 L Hct 32.1 L MCV 83.6 D MCH 27.2 MCHC 32.6 L RDW 15.4 H Plt Count 225 D MPV 7.7 Neut % (Auto) 87.2 H Lymph % (Auto) 8.0 L Campbell % (Auto) 4.5 Eos % (Auto) 0.2 Baso % (Auto) 0.1 Neut # 22.8 H Lymph # 2.1 Campbell # 1.2 H Eos # 0.0 Baso # 0.0 Neutrophils % (Manual) 88 H Lymphocytes % (Manual) 7 L Monocytes % (Manual) 5 Platelet Estimate Normal Polychromasia Slight Hypochromasia (manual) Slight Anisocytosis (manual) Slight Puncture Site pCO2 pO2 HCO3 ABG pH ABG Total CO2 ABG O2 Saturation ABG Base Excess Fran Test ABG Potassium A-a O2 Difference Respiratory Index Sodium 141 Chloride 110 H Glucose Lactate Vent Mode Mechanical Rate FiO2 Tidal Volume PEEP Potassium 3.8 Carbon Dioxide 15 L Anion Gap 20 BUN 36 H Creatinine 2.1 H Est GFR ( Amer) 29 Est GFR (Non-Af Amer) 24 POC Glucose (mg/dL) Random Glucose 70 Calcium 6.3 L Phosphorus 4.7 H Magnesium 0.8 L* D Total Bilirubin 0.5 AST 59 H ALT 52 Alkaline Phosphatase 148 H D Total Creatine Kinase 108 CK-MB (Mass) 5.11 H Troponin I 0.3960 H* Total Protein 6.1 L Albumin 2.6 L Globulin 3.5 Albumin/Globulin Ratio 0.8 L Arterial Blood Potassium Random Vancomycin 20.09 07/18/17 07/18/17 07/18/17 08:42 11:57 16:02 WBC RBC Hgb Hct MCV MCH MCHC RDW Plt Count MPV Neut % (Auto) Lymph % (Auto) Campbell % (Auto) Eos % (Auto) Baso % (Auto) Neut # Lymph # Campbell # Eos # Baso # Neutrophils % (Manual) Lymphocytes % (Manual) Monocytes % (Manual) Platelet Estimate Polychromasia Hypochromasia (manual) Anisocytosis (manual) Puncture Site pCO2 pO2 HCO3 ABG pH ABG Total CO2 ABG O2 Saturation ABG Base Excess Fran Test ABG Potassium A-a O2 Difference Respiratory Index Sodium Chloride Glucose Lactate Vent Mode Mechanical Rate FiO2 Tidal Volume PEEP Potassium Carbon Dioxide Anion Gap BUN Creatinine Est GFR ( Amer) Est GFR (Non-Af Amer) POC Glucose (mg/dL) 86 97 Random Glucose Calcium Phosphorus Magnesium Total Bilirubin AST ALT Alkaline Phosphatase Total Creatine Kinase 77 CK-MB (Mass) 3.42 H Troponin I 0.1970 H* Total Protein Albumin Globulin Albumin/Globulin Ratio Arterial Blood Potassium Random Vancomycin 07/18/17 17:32 WBC RBC Hgb Hct MCV MCH MCHC RDW Plt Count MPV Neut % (Auto) Lymph % (Auto) Campbell % (Auto) Eos % (Auto) Baso % (Auto) Neut # Lymph # Campbell # Eos # Baso # Neutrophils % (Manual) Lymphocytes % (Manual) Monocytes % (Manual) Platelet Estimate Polychromasia Hypochromasia (manual) Anisocytosis (manual) Puncture Site pCO2 pO2 HCO3 ABG pH ABG Total CO2 ABG O2 Saturation ABG Base Excess Fran Test ABG Potassium A-a O2 Difference Respiratory Index Sodium Chloride Glucose Lactate Vent Mode Mechanical Rate FiO2 Tidal Volume PEEP Potassium Carbon Dioxide Anion Gap BUN Creatinine Est GFR ( Amer) Est GFR (Non-Af Amer) POC Glucose (mg/dL) 99 Random Glucose Calcium Phosphorus Magnesium Total Bilirubin AST ALT Alkaline Phosphatase Total Creatine Kinase CK-MB (Mass) Troponin I Total Protein Albumin Globulin Albumin/Globulin Ratio Arterial Blood Potassium Random Vancomycin Attending/Attestation - Attestation I have personally seen and examined this patient.: Yes I have fully participated in the care of the patient.: Yes I have reviewed all pertinent clinical information: Yes Notes (Text): 07/18/17 17:43 Patient seen and examined in the intensive care unit. Case discussed with house staff in the morning rounds. Patient is intubated on ventilatory support Being treated for septic shock Started on Primaxin and vancomycin Follow-up culture and sensitivity Start feeding Continue bicarbonate drip Follow-up ABG Infectious disease evaluation
[2017-07-18] MEDS: Enoxaparin 30 mg Syringe SC SCH (11:58)
[2017-07-18] MEDS: Lactobacillus Acidophilus 500 MU Cap PO SCH (11:59)
--- NOTE | 2017-07-18 12:05 | RAD ---
Chest x-ray single frontal view History: Line placement. Comparison: 07/18/2017 Findings: Right central venous catheter tip extending to the cavoatrial junction. No evidence of postprocedure pneumothorax. Other lines and tubes are stable in position. No focal infiltrate or effusion. Upper lobe granulomatous changes. Degenerative changes in the spine and shoulders. Impression: Interval placement of a right central venous catheter with no evidence of postprocedure pneumothorax.
[2017-07-18] MEDS: Vancomycin 1 gm/NS 200 ml 1 GM/200 ML BAG IVPB SCH (14:00)
[2017-07-18 16:37] LABS: CK-MB 3.42 ng/mL (0.0-3.38); TROPONIN I 0.197 ng/mL (0.00-0.120)
[2017-07-18] MEDS: Propofol 10 mg/ml 1,000 MG/100 ML VIAL IV PRN (17:37)
[2017-07-19] MEDS: (Novolog) Insulin Aspart, Recombinant 100 u/ml 10 ml vial SC SCH ×4 (01:02→17:30)
[2017-07-19] MEDS: Vancomycin 1 gm/NS 200 ml 1 GM/200 ML BAG IVPB SCH ×2 (01:15→13:36)
[2017-07-19] MEDS: Propofol 10 mg/ml 1,000 MG/100 ML VIAL IV PRN ×3 (03:44→22:00)
[2017-07-19 06:55] LABS: BASO % 0.2 % (0.0-2.0); EOS % 0.1 % (0.0-4.0); LYMPH # 1.4 K/uL (1.0-4.3); LYMPH % 10.7 % (20.0-40.0); MEAN CELL VOLUME 83.1 fL (81.0-99.0); MEAN CORPUSCULAR HEMOGLOBIN 27.1 pg (27.0-31.0); MEAN CORPUSCULAR HGB CONC 32.6 g/dL (33.0-37.0); MEAN PLATELET VOLUME 7.8 fL (7.2-11.7); MONO # 0.7 K/uL (0.0-0.8); MONO % 5.9 % (0.0-10.0); NEUT # 10.5 K/uL (1.8-7.0); NEUT % 83.1 % (50.0-75.0); NRBC % 0.2 % (0.0-2.0); RBC 2.97 Mil/uL (3.80-5.20); RED CELL DISTRIBUTION WIDTH 15.3 % (11.5-14.5)
[2017-07-19 07:03] LABS: HEMOGLOBIN 8.1 g/dL (11.0-16.0); WHITE BLOOD COUNT 12.6 K/uL (4.8-10.8)
[2017-07-19 07:40] LABS: TROPONIN I 0.128 ng/mL (0.00-0.120)
[2017-07-19 07:41] LABS: ALB/GLOB RATIO 0.7 (1.0-2.1); ALBUMIN 1.9 g/dL (3.5-5.0); CALCIUM 5.7 mg/dl (8.6-10.4); CK-MB 2.85 ng/mL (0.0-3.38); MAGNESIUM 1.3 mg/dL (1.6-2.3)
--- NOTE | 2017-07-19 08:12 | CP.PCM.PN ---
Subjective - Date & Time of Evaluation Date of Evaluation: 07/19/17 Time of Evaluation: 07:50 - Subjective Subjective: clinically same Objective - Vital Signs/Intake and Output Vital Signs (last 24 hours): Temp Pulse Resp BP Pulse Ox 98.3 F 119 H 17 96/54 L 100 07/19/17 08:00 07/19/17 08:00 07/19/17 08:00 07/19/17 08:00 07/19/17 08:00 Intake and Output: 07/19/17 07/19/17 06:59 18:59 Intake Total 4265.4 270.8 Output Total 400 Balance 3865.4 270.8 - Medications Medications: Current Medications Al Hydrox/Mg Hydrox/Simethicone (Maalox Plus 30 Ml) 30 ml PO Q4 PRN PRN Reason: Heartburn Enoxaparin Sodium (Lovenox) 30 mg SC DAILY [facility] Last Admin: 07/18/17 11:58 Dose: 30 mg Norepinephrine Bitartrate 4 mg (/ Sodium Chloride) 254 mls @ 15.24 mls/hr IV .[id number] PRN; Protocol; 4 MCG/MIN PRN Reason: TITRATE PER MD ORDER Last Admin: 07/19/17 07:01 Dose: 10 mcg/min, 38.1 mls/hr Propofol (Diprivan) 1,000 mg in 100 mls @ 2.177 mls/hr IV .Q24H PRN; Protocol; 10 MCG/KG/MIN PRN Reason: TITRATE PER MD ORDER Last Admin: 07/19/17 03:44 Dose: 77.16 mcg/kg/min, 16.8 mls/hr Meropenem 500 mg/ Sodium (Chloride) 100 mls @ 100 mls/hr IVPB Q12H [facility] Last Admin: 07/18/17 20:34 Dose: 100 mls/hr Sodium Bicarbonate 50 meq/ (Sodium Chloride) 1,050 mls @ 250 mls/hr IV .Q4H12M [facility] Last Admin: 07/19/17 07:08 Dose: 250 mls/hr Vancomycin/Sodium Chloride (Vancomycin 1 Gm/Ns 200 Ml) 1 gm in 200 mls @ 133.333 mls/hr IVPB Q12H [facility] Stop: 07/23/17 14:16 Last Admin: 07/19/17 01:15 Dose: 133.333 mls/hr Insulin Aspart (Novolog) 0 unit SC Q6H [facility] PRN Reason: Protocol Last Admin: 07/19/17 07:06 Dose: 1 unit Lactobacillus Acidophilus (Bacid Acidophilus) 1 cap PO DAILY [facility] Last Admin: 07/18/17 11:59 Dose: 1 cap Metoclopramide HCl (Reglan) 10 mg PO Q6 PRN PRN Reason: Nausea/Vomiting Pantoprazole Sodium (Protonix Susp) 40 mg PO 0600 [facility] - Labs Labs: 07/19/17 06:41 07/18/17 06:41 PT 13.0 SECONDS (9.7-12.2) H 07/17/17 14:00 INR 1.2 07/17/17 14:00 APTT 34 SECONDS (21-34) 07/17/17 14:00
[2017-07-19 08:47] LABS: ABG ALLEN TEST POS; ARTERIAL BLOOD GAS HCO3 20.7 mmol/L (21-28); ARTERIAL BLOOD GAS O2 SAT 99.8 % (95-98); ARTERIAL BLOOD GAS PCO2 23 mm/Hg (35-45); ARTERIAL BLOOD GAS PH 7.46 (7.35-7.45); ARTERIAL BLOOD GAS PO2 189 mm/Hg (80-100); ARTERIAL BLOOD GAS TCO2 17.1 mmol/L (22-28)
[2017-07-19] MEDS: Meropenem 500 MG in Sodium Chloride 0.9% 100 ML IVPB SCH ×2 (09:37→20:15)
[2017-07-19] MEDS: Pantoprazole 40 mg Susp UD PO SCH (09:39)
[2017-07-19] MEDS: Enoxaparin 30 mg Syringe SC SCH (09:40)
--- NOTE | 2017-07-19 10:21 | RAD ---
HISTORY: follow up COMPARISON: Portable chest 07/18/2017. FINDINGS: Endotracheal tube appears unchanged in position as well as nasogastric tube although the tip of the NG tube is off the image once again. Right PICC and right center venous catheter are unchanged in position as well. LUNGS: No active pulmonary disease. PLEURA: No significant pleural effusion identified, no pneumothorax apparent. CARDIOVASCULAR: Normal. OSSEOUS STRUCTURES: No significant abnormalities. VISUALIZED UPPER ABDOMEN: Incidental bilateral nephrostomy catheters are identified partially captured in the upper abdomen. OTHER FINDINGS: None. IMPRESSION: No acute infiltrate or pleural effusion. No pneumothorax, cardiomegaly or pulmonary vascular derangement. Tubes and catheters as discussed above.
--- NOTE | 2017-07-19 10:23 | CP.CCUPN ---
CCU Subjective - Physician Review Subjective (Free Text): 07/19/17 10:[address] Flores Patient seen and examined at bedside. Propofol decreased today. Potassium 2.2, repleted. To be extubated CPAP 35% PS 10 PEEP 5. Patient gesturing that she wants to have her tube taken out. CCU Objective - Vital Signs / Intake & Output Vital Signs (Last 4 hours): Vital Signs Temp Pulse Resp BP Pulse Ox 07/19/17 10:00 18 98/56 L 100 07/19/17 08:00 98.3 F 119 H 17 96/54 L 100 07/19/17 07:01 119 H 19 90/49 L 100 07/19/17 07:00 98.3 F 119 H 18 96/53 L 100 Intake and Output (Last 8hrs): Intake & Output 07/18/17 07/19/17 07/19/17 22:59 06:59 14:59 Intake Total 3013.6 2712.4 270.8 Output Total 75 400 Balance 2938.6 2312.4 270.8 Weight 74 lb Intake: IV 354 354 Intake, IV Amount 2639.6 2248.4 270.8 Right Internal Jugular 88.5 76.0 9.5 Right Medial Port 100 Internal Jugular Right Medial Port PICC 200 Right PICC 251.1 172.4 11.3 Right Proximal Port 750 2000 250 Internal Jugular Right lower leg osseous 1250 Tube Feeding 20 110 Output: Drainage 75 400 Abdomen 25 300 Left Back 25 50 Right Back 25 50 - Physical Exam Head: Positive for: Atraumatic, Normocephalic Pupils: Positive for: PERRL Extroacular Muscles: Positive for: EOMI Conjunctiva: Positive for: Normal Nose (External): Positive for: Atraumatic Respiratory/Chest: Positive for: Clear to Auscultation. Negative for: Accessory Muscle Use Cardiovascular: Positive for: Regular Rate and Rhythm, Normal S1, S2 Abdomen: Positive for: Ostomy Tubes, Scars (from prior surgeries) Upper Extremity: Positive for: Normal Inspection, Normal ROM, Capillary Refill < 2s Lower Extremity: Positive for: Normal Inspection, Normal ROM, Capillary Refill < 2 s Neurological: Negative for: GCS=15 Skin: Positive for: Warm, Dry Psychiatric: Positive for: Alert - Medications Active Medications: Active Medications Generic Name Dose Route Start Last Admin Trade Name Freq PRN Reason Stop Dose Admin Al Hydrox/Mg Hydrox/Simethicone 30 ml 07/17/17 20:19 Maalox Plus 30 Ml PO Q4 PRN Heartburn Enoxaparin Sodium 30 mg 07/18/17 10:00 07/19/17 09:40 Lovenox SC 30 mg DAILY [facility] Administration Norepinephrine Bitartrate 4 mg 254 mls @ 15.24 mls/hr 07/17/17 13:36 07:01 / Sodium Chloride IV 10 mcg/min .[id number] PRN 38.1 mls/hr TITRATE PER MD ORDER Administration Protocol 4 MCG/MIN Propofol 1,000 mg in 100 mls @ 2.177 mls/hr 07/17/17 14:22 07/19/17 03:44 Diprivan IV 77.16 mcg/kg/min .Q24H PRN 16.8 mls/hr TITRATE PER MD ORDER Administration Protocol 10 MCG/KG/MIN Meropenem 500 mg/ Sodium 100 mls @ 100 mls/hr 07/17/17 21:00 07/19/17 09:37 Chloride IVPB 100 mls/hr Q12H [facility] Administration Sodium Bicarbonate 50 meq/ 1,050 mls @ 250 mls/hr 07/17/17 22:00 07/19/17 07: 08 Sodium Chloride IV 250 mls/hr .Q4H12M [facility] Administration Vancomycin/Sodium Chloride 1 gm in 200 mls @ 133.333 mls/hr 07/18/17 14:15 01:15 Vancomycin 1 Gm/Ns 200 Ml IVPB 07/23/17 14:16 133.333 mls/hr Q12H [facility] Administration Potassium Chloride 20 meq in 100 mls @ 50 mls/hr 07/19/17 09:30 07/19/17 09: 31 Potassium Chloride 20 Meq/100 Ml IVPB 07/19/17 21:29 50 mls/hr Q2H [facility] Administration Calcium Gluconate 4.65 meq/ 110 mls @ 110 mls/hr 07/19/17 11:00 Sodium Chloride IVPB 07/19/17 12:59 Q1H [facility] Insulin Aspart 0 unit 07/19/17 00:00 07/19/17 07:06 Novolog SC 1 unit Q6H [facility] Administration Protocol Lactobacillus Acidophilus 1 cap 07/18/17 10:00 07/18/17 11:59 Bacid Acidophilus PO 1 cap DAILY [facility] Administration Metoclopramide HCl 10 mg 07/17/17 20:19 Reglan PO Q6 PRN Nausea/Vomiting Pantoprazole Sodium 40 mg 07/19/17 10:00 07/19/17 09:39 Protonix Susp PO 40 mg 0600 [facility] Administration - Patient Studies Lab Studies: Microbiology Studies 07/17/17 20:21 MRSA Culture (Admit) - Final Naris MRSA NOT DETECTED 07/17/17 17:22 Urine Culture - Final Urine 50-100,000 CFU/ML. MULTIPLE SPECIES. SUGGEST REPEAT SPECIMEM. 07/17/17 13:35 Blood Culture - Preliminary Blood NO GROWTH AFTER 24 HOURS 07/17/17 13:15 Blood Culture - Preliminary Blood NO GROWTH AFTER 24 HOURS Lab Studies 07/19/17 07/19/17 07/19/17 Range/Units 08:35 06:41 06:19 WBC 12.6 H D (4.8-10.8) K/uL RBC 2.97 L (3.80-5.20) Mil/uL Hgb 8.1 L D (11.0-16.0) g/dL Hct 24.7 L (34.0-47.0) % MCV 83.1 (81.0-99.0) fL MCH 27.1 (27.0-31.0) pg MCHC 32.6 L (33.0-37.0) g/dL RDW 15.3 H (11.5-14.5) % Plt Count 186 (130-400) K/uL MPV 7.8 (7.2-11.7) fL Neut % (Auto) 83.1 H (50.0-75.0) % Lymph % (Auto) 10.7 L (20.0-40.0) % [place] % (Auto) 5.9 (0.0-10.0) % Eos % (Auto) 0.1 (0.0-4.0) % Baso % (Auto) 0.2 (0.0-2.0) % Neut # 10.5 H (1.8-7.0) K/uL Lymph # 1.4 (1.0-4.3) K/uL [place] # 0.7 (0.0-0.8) K/uL Eos # 0.0 (0.0-0.7) K/uL Baso # 0.0 (0.0-0.2) K/uL Puncture Site L/r pCO2 23 L (35-45) mm/Hg pO2 189 H (80-100) mm/Hg HCO3 20.7 L (21-28) mmol/L ABG pH 7.46 H (7.35-7.45) ABG Total CO2 17.1 L (22-28) mmol/L ABG O2 Saturation 99.8 H (95-98) % ABG Base Excess -5.5 L (-2.0-3.0) mmol/L Fran Test Pos ABG Potassium 2.2 L* (3.6-5.2) mmol/L A-a O2 Difference 32.0 mm/Hg Respiratory Index 0.2 Glucose 130 H (65-105) mg/dl Lactate 0.7 (0.7-2.1) mmol/L Mechanical Rate 14 FiO2 35.0 % Tidal Volume 450 PEEP 5 Crit Value Called To Dr flores Crit Value Called By Adam clayton Crit Value Read Back Y Blood Gas Notified Time 848 Sodium 157.0 H (132-148) mmol/L Potassium (3.6-5.2) mmol/L Chloride 127.0 H (98-107) mmol/L Carbon Dioxide (22-30) mmol/L Anion Gap (10-20) BUN (7-17) mg/dL Creatinine (0.7-1.2) mg/dL Est GFR ( Amer) Est GFR (Non-Af Amer) POC Glucose (mg/dL) 153 H (65-110) mg/dL Random Glucose (65-105) mg/dL Calcium (8.6-10.4) mg/dl Phosphorus (2.5-4.5) mg/dL Magnesium (1.6-2.3) mg/dL Total Bilirubin (0.2-1.3) mg/dL AST (14-36) U/L ALT (9-52) U/L Alkaline Phosphatase (38-126) U/L Total Creatine Kinase (30-135) U/L CK-MB (Mass) (0.0-3.38) ng/mL Troponin I (0.00-0.120) ng/mL Total Protein (6.3-8.3) g/dL Albumin (3.5-5.0) g/dL Globulin (2.2-3.9) gm/dL Albumin/Globulin Ratio (1.0-2.1) Arterial Blood Potassium 2.2 L* (3.6-5.2) mmol/L 07/18/17 07/18/17 07/18/17 Range/Units 23:47 17:32 16:02 WBC (4.8-10.8) K/uL RBC (3.80-5.20) Mil/uL Hgb (11.0-16.0) g/dL Hct (34.0-47.0) % MCV (81.0-99.0) fL MCH (27.0-31.0) pg MCHC (33.0-37.0) g/dL RDW (11.5-14.5) % Plt Count (130-400) K/uL MPV (7.2-11.7) fL Neut % (Auto) (50.0-75.0) % Lymph % (Auto) (20.0-40.0) % [place] % (Auto) (0.0-10.0) % Eos % (Auto) (0.0-4.0) % Baso % (Auto) (0.0-2.0) % Neut # (1.8-7.0) K/uL Lymph # (1.0-4.3) K/uL [place] # (0.0-0.8) K/uL Eos # (0.0-0.7) K/uL Baso # (0.0-0.2) K/uL Puncture Site pCO2 (35-45) mm/Hg pO2 (80-100) mm/Hg HCO3 (21-28) mmol/L ABG pH (7.35-7.45) ABG Total CO2 (22-28) mmol/L ABG O2 Saturation (95-98) % ABG Base Excess (-2.0-3.0) mmol/L Fran Test ABG Potassium (3.6-5.2) mmol/L A-a O2 Difference mm/Hg Respiratory Index Glucose (65-105) mg/dl Lactate (0.7-2.1) mmol/L Mechanical Rate FiO2 % Tidal Volume PEEP Crit Value Called To Crit Value Called By Crit Value Read Back Blood Gas Notified Time Sodium (132-148) mmol/L Potassium (3.6-5.2) mmol/L Chloride (98-107) mmol/L Carbon Dioxide (22-30) mmol/L Anion Gap (10-20) BUN (7-17) mg/dL Creatinine (0.7-1.2) mg/dL Est GFR ( Amer) Est GFR (Non-Af Amer) POC Glucose (mg/dL) 103 99 (65-110) mg/dL Random Glucose (65-105) mg/dL Calcium (8.6-10.4) mg/dl Phosphorus (2.5-4.5) mg/dL Magnesium (1.6-2.3) mg/dL Total Bilirubin (0.2-1.3) mg/dL AST (14-36) U/L ALT (9-52) U/L Alkaline Phosphatase (38-126) U/L Total Creatine Kinase 77 (30-135) U/L CK-MB (Mass) 3.42 H (0.0-3.38) ng/mL Troponin I 0.1970 H* (0.00-0.120) ng/mL Total Protein (6.3-8.3) g/dL Albumin (3.5-5.0) g/dL Globulin (2.2-3.9) gm/dL Albumin/Globulin Ratio (1.0-2.1) Arterial Blood Potassium (3.6-5.2) mmol/L 07/18/17 07/18/17 Range/Units 11:57 06:41 WBC (4.8-10.8) K/uL RBC (3.80-5.20) Mil/uL Hgb (11.0-16.0) g/dL Hct (34.0-47.0) % MCV (81.0-99.0) fL MCH (27.0-31.0) pg MCHC (33.0-37.0) g/dL RDW (11.5-14.5) % Plt Count (130-400) K/uL MPV (7.2-11.7) fL Neut % (Auto) (50.0-75.0) % Lymph % (Auto) (20.0-40.0) % [place] % (Auto) (0.0-10.0) % Eos % (Auto) (0.0-4.0) % Baso % (Auto) (0.0-2.0) % Neut # (1.8-7.0) K/uL Lymph # (1.0-4.3) K/uL [place] # (0.0-0.8) K/uL Eos # (0.0-0.7) K/uL Baso # (0.0-0.2) K/uL Puncture Site pCO2 (35-45) mm/Hg pO2 (80-100) mm/Hg HCO3 (21-28) mmol/L ABG pH (7.35-7.45) ABG Total CO2 (22-28) mmol/L ABG O2 Saturation (95-98) % ABG Base Excess (-2.0-3.0) mmol/L Fran Test ABG Potassium (3.6-5.2) mmol/L A-a O2 Difference mm/Hg Respiratory Index Glucose (65-105) mg/dl Lactate (0.7-2.1) mmol/L Mechanical Rate FiO2 % Tidal Volume PEEP Crit Value Called To Crit Value Called By Crit Value Read Back Blood Gas Notified Time Sodium 150 H (132-148) mmol/L Potassium 2.6 L (3.6-5.2) mmol/L Chloride 119 H (98-107) mmol/L Carbon Dioxide 17 L (22-30) mmol/L Anion Gap 16 (10-20) BUN 23 H (7-17) mg/dL Creatinine 1.3 H (0.7-1.2) mg/dL Est GFR ( Amer) 50 Est GFR (Non-Af Amer) 41 POC Glucose (mg/dL) 97 (65-110) mg/dL Random Glucose 124 H (65-105) mg/dL Calcium 5.7 L* (8.6-10.4) mg/dl Phosphorus 2.7 (2.5-4.5) mg/dL Magnesium 1.3 L (1.6-2.3) mg/dL Total Bilirubin 0.3 (0.2-1.3) mg/dL AST 37 H D (14-36) U/L ALT 44 (9-52) U/L Alkaline Phosphatase 128 H (38-126) U/L Total Creatine Kinase 245 H (30-135) U/L CK-MB (Mass) 2.85 (0.0-3.38) ng/mL Troponin I 0.1280 H* (0.00-0.120) ng/mL Total Protein 4.8 L (6.3-8.3) g/dL Albumin 1.9 L D (3.5-5.0) g/dL Globulin 2.9 (2.2-3.9) gm/dL Albumin/Globulin Ratio 0.7 L (1.0-2.1) Arterial Blood Potassium (3.6-5.2) mmol/L Laboratory Results - last 24 hr 07/18/17 07/18/17 07/18/17 06:41 11:57 16:02 WBC RBC Hgb Hct MCV MCH MCHC RDW Plt Count MPV Neut % (Auto) Lymph % (Auto) [place] % (Auto) Eos % (Auto) Baso % (Auto) Neut # Lymph # [place] # Eos # Baso # Puncture Site pCO2 pO2 HCO3 ABG pH ABG Total CO2 ABG O2 Saturation ABG Base Excess Fran Test ABG Potassium A-a O2 Difference Respiratory Index Glucose Lactate Mechanical Rate FiO2 Tidal Volume PEEP Crit Value Called To Crit Value Called By Crit Value Read Back Blood Gas Notified Time Sodium 150 H Potassium 2.6 L Chloride 119 H Carbon Dioxide 17 L Anion Gap 16 BUN 23 H Creatinine 1.3 H Est GFR ( Amer) 50 Est GFR (Non-Af Amer) 41 POC Glucose (mg/dL) 97 Random Glucose 124 H Calcium 5.7 L* Phosphorus 2.7 Magnesium 1.3 L Total Bilirubin 0.3 AST 37 H D ALT 44 Alkaline Phosphatase 128 H Total Creatine Kinase 245 H 77 CK-MB (Mass) 2.85 3.42 H Troponin I 0.1280 H* 0.1970 H* Total Protein 4.8 L Albumin 1.9 L D Globulin 2.9 Albumin/Globulin Ratio 0.7 L Arterial Blood Potassium 07/18/17 07/18/17 07/19/17 17:32 23:47 06:19 WBC RBC Hgb Hct MCV MCH MCHC RDW Plt Count MPV Neut % (Auto) Lymph % (Auto) [place] % (Auto) Eos % (Auto) Baso % (Auto) Neut # Lymph # [place] # Eos # Baso # Puncture Site pCO2 pO2 HCO3 ABG pH ABG Total CO2 ABG O2 Saturation ABG Base Excess Fran Test ABG Potassium A-a O2 Difference Respiratory Index Glucose Lactate Mechanical Rate FiO2 Tidal Volume PEEP Crit Value Called To Crit Value Called By Crit Value Read Back Blood Gas Notified Time Sodium Potassium Chloride Carbon Dioxide Anion Gap BUN Creatinine Est GFR ( Amer) Est GFR (Non-Af Amer) POC Glucose (mg/dL) 99 103 153 H Random Glucose Calcium Phosphorus Magnesium Total Bilirubin AST ALT Alkaline Phosphatase Total Creatine Kinase CK-MB (Mass) Troponin I Total Protein Albumin Globulin Albumin/Globulin Ratio Arterial Blood Potassium 07/19/17 07/19/17 06:41 08:35 WBC 12.6 H D RBC 2.97 L Hgb 8.1 L D Hct 24.7 L MCV 83.1 MCH 27.1 MCHC 32.6 L RDW 15.3 H Plt Count 186 MPV 7.8 Neut % (Auto) 83.1 H Lymph % (Auto) 10.7 L [place] % (Auto) 5.9 Eos % (Auto) 0.1 Baso % (Auto) 0.2 Neut # 10.5 H Lymph # 1.4 [place] # 0.7 Eos # 0.0 Baso # 0.0 Puncture Site L/r pCO2 23 L pO2 189 H HCO3 20.7 L ABG pH 7.46 H ABG Total CO2 17.1 L ABG O2 Saturation 99.8 H ABG Base Excess -5.5 L Fran Test Pos ABG Potassium 2.2 L* A-a O2 Difference 32.0 Respiratory Index 0.2 Glucose 130 H Lactate 0.7 Mechanical Rate 14 FiO2 35.0 Tidal Volume 450 PEEP 5 Crit Value Called To Dr flores Crit Value Called By Adam clayton Crit Value Read Back Y Blood Gas Notified Time 848 Sodium 157.0 H Potassium Chloride 127.0 H Carbon Dioxide Anion Gap BUN Creatinine Est GFR ( Amer) Est GFR (Non-Af Amer) POC Glucose (mg/dL) Random Glucose Calcium Phosphorus Magnesium Total Bilirubin AST ALT Alkaline Phosphatase Total Creatine Kinase CK-MB (Mass) Troponin I Total Protein Albumin Globulin Albumin/Globulin Ratio Arterial Blood Potassium 2.2 L* Fingerstick Blood Sugar Results: 153 Assessment/Plan - Assessment and Plan (Free Text) Assessment: Assessment Hypokalemia s/p Cardiac Arrest UTI Septic shock Hypertension (chronic) Arthritis Hyperparathyroidism Vesico-cecal fistula Ileostomy w/ Colostomy bag GERD b/l nephrostomy tubes Plan Replete low potassium. Reevaluate for extubation. Anticipating todays CMP results. Neuro: awake and alert Sedation: Propofol 1000 mg in 100 mls @ 2.177 mls/hr IV Q24 PRN Pain: none Psych: nothing to do. Cardio: S/p compressions and 2 doses of epinephrine for cardiac arrest. Norepinephrine Bitartrate 254 mls @ 15.24 mls/hr IV for hypotension. Pulm: CXR shows no active disease. Reevaluate for extubation after repletion of potassium. Vent Settings: rate 14 // fio2 35 // tv 450 // peep 5 ABG: pCO2 23 // pO2 175 // HCO3 18.7 // pH 7.41 Endo: Novolin R 5 unit IV stat. Random Glucose 71 GI: wound care for ileostomy : wound care for nephrostomies. No discharge as per nursing. Renal: Anticipating todays CMP. Arterial blood potassium 2.2. Ordered 6 bags of potassium 20 meq in 100 mls @ 50 mls/hr IVPB Q2H I/O: +270.8 Heme/Onc: H/H: 8.1/24.7 Pt 13// PTT 34// INR 1.2 (07/18/17) MSK: no issues. ID: WBC [id number]. Vancomycin HCl 1 gm in NaCl 250 mls @ 133 mls/hr IVPB Q12. Imipenem/Cilastin Sodium 250 mg in NaCl 100 mls @ 100 mls/hr IVPB Q6H. Meropenem 500 mg in NaCl 100 mls @ 100 mls/hr IVPB Q12H. f/u AM CBC Prophylaxis: DVT: Heparin SC Q8. SCDs GI: Protonix 40 mg IVP Daily
[2017-07-19] MEDS: Sodium Chloride 0.45% 1,000 ML IV SCH ×4 (10:30→23:50)
[2017-07-19] MEDS: Magnesium Sulfate 1 gm in D5W 1 GM/100 ML BAG IVPB SCH ×2 (11:36→11:40)
[2017-07-19] MEDS: Lactobacillus Acidophilus 500 MU Cap PO SCH (11:39)
[2017-07-19 16:41] LABS: ALB/GLOB RATIO 0.6 (1.0-2.1); ALBUMIN 1.9 g/dL (3.5-5.0); CALCIUM 6.7 mg/dl (8.6-10.4); MAGNESIUM 1.9 mg/dL (1.6-2.3)
[2017-07-19] MEDS: Metoprolol 1 mg/ml Inj IVP SCH (21:55)
--- NOTE | 2017-07-19 23:14 | CARD ---
APPROVED REPORT EKG Measurement Heart [id number] <Conclusion> Sinus tachycardia with short NV ST elevation, probably due to early repolarization Borderline ECG
[2017-07-20] MEDS: Vancomycin 1 gm/NS 200 ml 1 GM/200 ML BAG IVPB SCH ×2 (01:15→13:23)
[2017-07-20] MEDS: Metoprolol 1 mg/ml Inj IVP SCH ×4 (04:45→22:00)
[2017-07-20] MEDS: Propofol 10 mg/ml 1,000 MG/100 ML VIAL IV PRN (05:30)
[2017-07-20] MEDS: Pantoprazole 40 mg Susp UD PO SCH (05:30)
[2017-07-20] MEDS: Sodium Chloride 0.45% 1,000 ML IV SCH ×2 (05:30→08:20)
[2017-07-20 05:47] LABS: ARTERIAL BLOOD GAS HCO3 24.2 mmol/L (21-28); ARTERIAL BLOOD GAS HEMOGLOBIN 13.6 g/dL (11.7-17.4); ARTERIAL BLOOD GAS O2 SAT 99.2 % (95-98); ARTERIAL BLOOD GAS PCO2 28 mm/Hg (35-45); ARTERIAL BLOOD GAS PH 7.49 (7.35-7.45); ARTERIAL BLOOD GAS PO2 126 mm/Hg (80-100); ARTERIAL BLOOD GAS TCO2 22.2 mmol/L (22-28)
[2017-07-20] MEDS: (Novolog) Insulin Aspart, Recombinant 100 u/ml 10 ml vial SC SCH ×4 (05:55→18:06)
[2017-07-20 06:48] LABS: BASO % 0.3 % (0.0-2.0); EOS # 0.1 K/uL (0.0-0.7); EOS % 0.5 % (0.0-4.0); LYMPH # 1.1 K/uL (1.0-4.3); LYMPH % 9.1 % (20.0-40.0); MEAN CELL VOLUME 82.6 fL (81.0-99.0); MEAN CORPUSCULAR HEMOGLOBIN 27.1 pg (27.0-31.0); MEAN CORPUSCULAR HGB CONC 32.8 g/dL (33.0-37.0); MEAN PLATELET VOLUME 7.9 fL (7.2-11.7); MONO # 0.5 K/uL (0.0-0.8); MONO % 4.4 % (0.0-10.0); NEUT # 10.4 K/uL (1.8-7.0); NEUT % 85.7 % (50.0-75.0); NRBC % 0.1 % (0.0-2.0); PLATELET COUNT 169 K/uL (130-400); RBC 2.94 Mil/uL (3.80-5.20); RED CELL DISTRIBUTION WIDTH 15.4 % (11.5-14.5); WHITE BLOOD COUNT 12.1 K/uL (4.8-10.8)
[2017-07-20 07:03] LABS: ALB/GLOB RATIO 0.6 (1.0-2.1); ALBUMIN 1.8 g/dL (3.5-5.0); ALT/SGPT 41 U/L (9-52); AST/SGOT 26 U/L (14-36); BLOOD UREA NITROGEN 20 mg/dL (7-17); GFR AFRICAN-AMERICAN > 60; GFR NON-AFRICAN AMERICAN 56; MAGNESIUM 1.7 mg/dL (1.6-2.3)
[2017-07-20] MEDS ORDERED: Dexmedetomidine Hydrochloride 200 MCG in Sodium Chloride 0.9% 48 ML IV PRN (07:50)
[2017-07-20 08:38] LABS: ANISOCYTOSIS SLIGHT; LYMPHOCYTE 7 % (20-40); MONOCYTE 3 % (0-10); NEUTROPHIL 90 % (50-75); PLATELET ESTIMATE NORMAL (NORMAL); TOTAL CELLS COUNTED 100
[2017-07-20 08:39] LABS: HYPOCHROMIC SLIGHT; MICROCYTOSIS SLIGHT; POLYCHROMIC SLIGHT
--- NOTE | 2017-07-20 09:08 | RAD ---
Chest x-ray single frontal view History: Ventilator. Comparison: 07/19/2017 Findings: Lines and tubes stable position. Hyperinflation suggestive for COPD and or emphysematous changes. Right hilar prominence. Heart size within normal limits. Nodular density at the right lung base may represent nipple shadow versus confluence of shadows with ribs and vessels versus small nodule. Degenerative changes in the spine and shoulders. Impression: Lines and tubes stable position. Hyperinflation suggestive for COPD and or emphysematous changes. Right hilar prominence. Heart size within normal limits. Nodular density at the right lung base may represent nipple shadow versus confluence of shadows with ribs and vessels versus small nodule.
[2017-07-20] MEDS: Enoxaparin 30 mg Syringe SC SCH (09:27)
[2017-07-20] MEDS: Lactobacillus Acidophilus 500 MU Cap PO SCH (09:29)
[2017-07-20] MEDS: Meropenem 500 MG in Sodium Chloride 0.9% 100 ML IVPB SCH ×2 (09:32→22:00)
--- NOTE | 2017-07-20 10:19 | CP.CCUPN ---
<Zari Golden - Last Filed: 07/20/17 10:46> CCU Subjective - Physician Review Subjective (Free Text): 07/20/17 10:[address] Yobani Higgins No acute events overnight. Patient was noted to be tolerating CPAP FiO2 35%, PS 15 lowered to 10, PEEP of 5. Patient taken off sedation for extubation. Right PICC line removed prior to extubation Critical Care Time Spent (in minutes): 35 CCU Objective - Vital Signs / Intake & Output Vital Signs (Last 4 hours): Vital Signs Temp Pulse Resp BP Pulse Ox 07/20/17 09:01 117 H 18 115/60 100 07/20/17 08:01 102 H 14 97/43 L 100 07/20/17 08:00 98.5 F 07/20/17 07:01 104 H 18 100/56 L 100 07/20/17 07:00 101 H 23 100 Intake and Output (Last 8hrs): Intake & Output 07/19/17 07/20/17 07/20/17 22:59 06:59 14:59 Intake Total 1877.4 1939.8 424.3 Output Total 1000 750 350 Balance 877.4 1189.8 74.3 Weight 78 lb 7.753 oz Intake: IV 100 354 15 Intake, IV Amount 1457.4 1245.8 319.3 Right Distal Port 45 63.8 0 Internal Jugular Right Internal Jugular 60 Right Medial Port 134.8 82.0 19.3 Internal Jugular Right PICC 67.6 Right Proximal Port 1150 1100 300 Internal Jugular Oral 100 100 Tube Feeding 220 240 90 Output: Drainage 1000 750 350 Abdomen 700 350 100 Left Back 200 200 150 Right Back 100 200 100 Emesis 0 - Physical Exam Head: Positive for: Atraumatic, Normocephalic Pupils: Positive for: PERRL Extroacular Muscles: Positive for: EOMI Conjunctiva: Positive for: Normal Nose (External): Positive for: Atraumatic Neck: Positive for: Trachea Midline, Other (right TLC at IJ). Negative for: Lymphadenopathy Respiratory/Chest: Positive for: Clear to Auscultation. Negative for: Accessory Muscle Use Cardiovascular: Positive for: Regular Rate and Rhythm, Normal S1, S2 Abdomen: Positive for: Ostomy Tubes, Scars (from prior surgeries) Back: Positive for: Other (nephrostomy tube) Upper Extremity: Positive for: Normal Inspection, Normal ROM, Capillary Refill < 2s Lower Extremity: Positive for: Normal Inspection, Normal ROM, Capillary Refill < 2 s Neurological: Negative for: GCS=15 Skin: Positive for: Warm, Dry Psychiatric: Positive for: Alert - Medications Active Medications: Active Medications Generic Name Dose Route Start Last Admin Trade Name Freq PRN Reason Stop Dose Admin Albuterol/Ipratropium 3 ml 07/20/17 08:00 Duoneb 3 Mg/0.5 Mg (3 Ml) Ud INH RQ6 VISHNU Enoxaparin Sodium 30 mg 07/18/17 10:00 07/20/17 09:27 Lovenox SC 30 mg DAILY VISHNU Administration Hydrocortisone Sodium Succinate 100 mg 07/20/17 08:00 07/20/17 08:30 Solu-Cortef IV 100 mg Q8 VISHNU Administration Norepinephrine Bitartrate 4 mg 254 mls @ 15.24 mls/hr 07/17/17 13:36 05:30 / Sodium Chloride IV Infused .[id number] PRN Titration TITRATE PER MD ORDER Protocol 4 MCG/MIN Meropenem 500 mg/ Sodium 100 mls @ 100 mls/hr 07/17/17 21:00 07/20/17 09:32 Chloride IVPB 100 mls/hr Q12H VISHNU Administration Vancomycin/Sodium Chloride 1 gm in 200 mls @ 133.333 mls/hr 07/18/17 14:15 01:15 Vancomycin 1 Gm/Ns 200 Ml IVPB 07/23/17 14:16 133.333 mls/hr Q12H VISHNU Administration Sodium Chloride 1,000 mls @ 75 mls/hr 07/20/17 07:48 07/20/17 08:20 Sodium Chloride 0.45% IV 75 mls/hr .[id number] VISHNU Administration Dexmedetomidine HCl 200 mcg/ 50 mls @ 1.78 mls/hr 07/20/17 07:50 Sodium Chloride IV TITR PRN Sedation Protocol 0.2 MCG/KG/HR Insulin Aspart 0 unit 07/19/17 00:00 07/20/17 05:55 Novolog SC 1 unit Q6H VISHNU Administration Protocol Lactobacillus Acidophilus 1 cap 07/18/17 10:00 07/20/17 09:29 Bacid Acidophilus PO 1 cap DAILY VISHNU Administration Metoclopramide HCl 10 mg 07/17/17 20:19 Reglan PO Q6 PRN Nausea/Vomiting Metoprolol Tartrate 2.5 mg 07/19/17 21:45 07/20/17 09:28 Lopressor IVP 2.5 mg Q6H VISHNU Administration Pantoprazole Sodium 40 mg 07/19/17 10:00 07/20/17 05:30 Protonix Susp PO 40 mg 0600 VISHNU Administration - Patient Studies Lab Studies: Microbiology Studies 07/17/17 13:35 Blood Culture - Preliminary Blood NO GROWTH AFTER 48 HOURS 07/17/17 13:15 Blood Culture - Preliminary Blood NO GROWTH AFTER 48 HOURS Lab Studies 07/20/17 07/20/17 07/20/17 Range/Units 06:36 06:36 05:52 WBC 12.1 H (4.8-10.8) K/uL RBC 2.94 L (3.80-5.20) Mil/uL Hgb 8.0 L (11.0-16.0) g/dL Hct 24.3 L (34.0-47.0) % MCV 82.6 (81.0-99.0) fL MCH 27.1 (27.0-31.0) pg MCHC 32.8 L (33.0-37.0) g/dL RDW 15.4 H (11.5-14.5) % Plt Count 169 (130-400) K/uL MPV 7.9 (7.2-11.7) fL Neut % (Auto) 85.7 H (50.0-75.0) % Lymph % (Auto) 9.1 L (20.0-40.0) % [place] % (Auto) 4.4 (0.0-10.0) % Eos % (Auto) 0.5 (0.0-4.0) % Baso % (Auto) 0.3 (0.0-2.0) % Neut # 10.4 H (1.8-7.0) K/uL Lymph # 1.1 (1.0-4.3) K/uL [place] # 0.5 (0.0-0.8) K/uL Eos # 0.1 (0.0-0.7) K/uL Baso # 0.0 (0.0-0.2) K/uL Neutrophils % (Manual) 90 H (50-75) % Lymphocytes % (Manual) 7 L (20-40) % Monocytes % (Manual) 3 (0-10) % Platelet Estimate Normal (NORMAL) Polychromasia Slight Hypochromasia (manual) Slight Anisocytosis (manual) Slight Microcytosis (manual) Slight Puncture Site pCO2 (35-45) mm/Hg pO2 (80-100) mm/Hg HCO3 (21-28) mmol/L ABG pH (7.35-7.45) ABG Total CO2 (22-28) mmol/L ABG O2 Saturation (95-98) % ABG Base Excess (-2.0-3.0) mmol/L ABG Hemoglobin (11.7-17.4) g/dL ABG Carboxyhemoglobin (0.5-1.5) % POC ABG HHb (Measured) (0.0-5.0) % ABG Methemoglobin (0.0-3.0) % Fran Test A-a O2 Difference mm/Hg Respiratory Index Hgb O2 Saturation (95.0-98.0) % Vent Mode Mechanical Rate FiO2 % Tidal Volume PEEP Sodium 146 (132-148) mmol/L Potassium 4.0 (3.6-5.2) mmol/L Chloride 116 H (98-107) mmol/L Carbon Dioxide 26 (22-30) mmol/L Anion Gap 8 L (10-20) BUN 20 H (7-17) mg/dL Creatinine 1.0 (0.7-1.2) mg/dL Est GFR ( Amer) > 60 Est GFR (Non-Af Amer) 56 POC Glucose (mg/dL) 193 H (65-110) mg/dL Random Glucose 198 H (65-105) mg/dL Calcium 7.0 L (8.6-10.4) mg/dl Phosphorus 2.0 L (2.5-4.5) mg/dL Magnesium 1.7 (1.6-2.3) mg/dL Total Bilirubin 0.3 (0.2-1.3) mg/dL AST 26 (14-36) U/L ALT 41 (9-52) U/L Alkaline Phosphatase 142 H (38-126) U/L Total Protein 4.7 L (6.3-8.3) g/dL Albumin 1.8 L (3.5-5.0) g/dL Globulin 2.9 (2.2-3.9) gm/dL Albumin/Globulin Ratio 0.6 L (1.0-2.1) 07/20/17 07/19/17 07/19/17 Range/Units 05:18 23:32 17:28 WBC (4.8-10.8) K/uL RBC (3.80-5.20) Mil/uL Hgb (11.0-16.0) g/dL Hct (34.0-47.0) % MCV (81.0-99.0) fL MCH (27.0-31.0) pg MCHC (33.0-37.0) g/dL RDW (11.5-14.5) % Plt Count (130-400) K/uL MPV (7.2-11.7) fL Neut % (Auto) (50.0-75.0) % Lymph % (Auto) (20.0-40.0) % [place] % (Auto) (0.0-10.0) % Eos % (Auto) (0.0-4.0) % Baso % (Auto) (0.0-2.0) % Neut # (1.8-7.0) K/uL Lymph # (1.0-4.3) K/uL [place] # (0.0-0.8) K/uL Eos # (0.0-0.7) K/uL Baso # (0.0-0.2) K/uL Neutrophils % (Manual) (50-75) % Lymphocytes % (Manual) (20-40) % Monocytes % (Manual) (0-10) % Platelet Estimate (NORMAL) Polychromasia Hypochromasia (manual) Anisocytosis (manual) Microcytosis (manual) Puncture Site Lb pCO2 28 L (35-45) mm/Hg pO2 126 H (80-100) mm/Hg HCO3 24.2 (21-28) mmol/L ABG pH 7.49 H (7.35-7.45) ABG Total CO2 22.2 (22-28) mmol/L ABG O2 Saturation 99.2 H (95-98) % ABG Base Excess -0.9 (-2.0-3.0) mmol/L ABG Hemoglobin 13.6 (11.7-17.4) g/dL ABG Carboxyhemoglobin 1.2 (0.5-1.5) % POC ABG HHb (Measured) 0.8 (0.0-5.0) % ABG Methemoglobin 1.1 (0.0-3.0) % Farn Test Na A-a O2 Difference 89.0 mm/Hg Respiratory Index 0.7 Hgb O2 Saturation 96.9 (95.0-98.0) % Vent Mode Prvc Mechanical Rate 14 FiO2 35.0 % Tidal Volume 450 PEEP 5 Sodium (132-148) mmol/L Potassium (3.6-5.2) mmol/L Chloride (98-107) mmol/L Carbon Dioxide (22-30) mmol/L Anion Gap (10-20) BUN (7-17) mg/dL Creatinine (0.7-1.2) mg/dL Est GFR ( Amer) Est GFR (Non-Af Amer) POC Glucose (mg/dL) 191 H 216 H (65-110) mg/dL Random Glucose (65-105) mg/dL Calcium (8.6-10.4) mg/dl Phosphorus (2.5-4.5) mg/dL Magnesium (1.6-2.3) mg/dL Total Bilirubin (0.2-1.3) mg/dL AST (14-36) U/L ALT (9-52) U/L Alkaline Phosphatase (38-126) U/L Total Protein (6.3-8.3) g/dL Albumin (3.5-5.0) g/dL Globulin (2.2-3.9) gm/dL Albumin/Globulin Ratio (1.0-2.1) 07/19/17 07/19/17 Range/Units 16:19 11:02 WBC (4.8-10.8) K/uL RBC (3.80-5.20) Mil/uL Hgb (11.0-16.0) g/dL Hct (34.0-47.0) % MCV (81.0-99.0) fL MCH (27.0-31.0) pg MCHC (33.0-37.0) g/dL RDW (11.5-14.5) % Plt Count (130-400) K/uL MPV (7.2-11.7) fL Neut % (Auto) (50.0-75.0) % Lymph % (Auto) (20.0-40.0) % [place] % (Auto) (0.0-10.0) % Eos % (Auto) (0.0-4.0) % Baso % (Auto) (0.0-2.0) % Neut # (1.8-7.0) K/uL Lymph # (1.0-4.3) K/uL [place] # (0.0-0.8) K/uL Eos # (0.0-0.7) K/uL Baso # (0.0-0.2) K/uL Neutrophils % (Manual) (50-75) % Lymphocytes % (Manual) (20-40) % Monocytes % (Manual) (0-10) % Platelet Estimate (NORMAL) Polychromasia Hypochromasia (manual) Anisocytosis (manual) Microcytosis (manual) Puncture Site pCO2 (35-45) mm/Hg pO2 (80-100) mm/Hg HCO3 (21-28) mmol/L ABG pH (7.35-7.45) ABG Total CO2 (22-28) mmol/L ABG O2 Saturation (95-98) % ABG Base Excess (-2.0-3.0) mmol/L ABG Hemoglobin (11.7-17.4) g/dL ABG Carboxyhemoglobin (0.5-1.5) % POC ABG HHb (Measured) (0.0-5.0) % ABG Methemoglobin (0.0-3.0) % Fran Test A-a O2 Difference mm/Hg Respiratory Index Hgb O2 Saturation (95.0-98.0) % Vent Mode Mechanical Rate FiO2 % Tidal Volume PEEP Sodium 148 (132-148) mmol/L Potassium 4.4 (3.6-5.2) mmol/L Chloride 120 H (98-107) mmol/L Carbon Dioxide 19 L (22-30) mmol/L Anion Gap 14 (10-20) BUN 20 H (7-17) mg/dL Creatinine 1.2 (0.7-1.2) mg/dL Est GFR ( Amer) 55 Est GFR (Non-Af Amer) 45 POC Glucose (mg/dL) 134 H (65-110) mg/dL Random Glucose 183 H (65-105) mg/dL Calcium 6.7 L (8.6-10.4) mg/dl Phosphorus 2.1 L (2.5-4.5) mg/dL Magnesium 1.9 (1.6-2.3) mg/dL Total Bilirubin 0.4 (0.2-1.3) mg/dL AST 30 (14-36) U/L ALT 45 (9-52) U/L Alkaline Phosphatase 139 H (38-126) U/L Total Protein 4.9 L (6.3-8.3) g/dL Albumin 1.9 L (3.5-5.0) g/dL Globulin 3.0 (2.2-3.9) gm/dL Albumin/Globulin Ratio 0.6 L (1.0-2.1) Laboratory Results - last 24 hr 07/19/17 07/19/17 07/19/17 11:02 16:19 17:28 WBC RBC Hgb Hct MCV MCH MCHC RDW Plt Count MPV Neut % (Auto) Lymph % (Auto) [place] % (Auto) Eos % (Auto) Baso % (Auto) Neut # Lymph # [place] # Eos # Baso # Neutrophils % (Manual) Lymphocytes % (Manual) Monocytes % (Manual) Platelet Estimate Polychromasia Hypochromasia (manual) Anisocytosis (manual) Microcytosis (manual) Puncture Site pCO2 pO2 HCO3 ABG pH ABG Total CO2 ABG O2 Saturation ABG Base Excess ABG Hemoglobin ABG Carboxyhemoglobin POC ABG HHb (Measured) ABG Methemoglobin Fran Test A-a O2 Difference Respiratory Index Hgb O2 Saturation Vent Mode Mechanical Rate FiO2 Tidal Volume PEEP Sodium 148 Potassium 4.4 Chloride 120 H Carbon Dioxide 19 L Anion Gap 14 BUN 20 H Creatinine 1.2 Est GFR ( Amer) 55 Est GFR (Non-Af Amer) 45 POC Glucose (mg/dL) 134 H 216 H Random Glucose 183 H Calcium 6.7 L Phosphorus 2.1 L Magnesium 1.9 Total Bilirubin 0.4 AST 30 ALT 45 Alkaline Phosphatase 139 H Total Protein 4.9 L Albumin 1.9 L Globulin 3.0 Albumin/Globulin Ratio 0.6 L 07/19/17 07/20/17 07/20/17 23:32 05:18 05:52 WBC RBC Hgb Hct MCV MCH MCHC RDW Plt Count MPV Neut % (Auto) Lymph % (Auto) [place] % (Auto) Eos % (Auto) Baso % (Auto) Neut # Lymph # [place] # Eos # Baso # Neutrophils % (Manual) Lymphocytes % (Manual) Monocytes % (Manual) Platelet Estimate Polychromasia Hypochromasia (manual) Anisocytosis (manual) Microcytosis (manual) Puncture Site Lb pCO2 28 L pO2 126 H HCO3 24.2 ABG pH 7.49 H ABG Total CO2 22.2 ABG O2 Saturation 99.2 H ABG Base Excess -0.9 ABG Hemoglobin 13.6 ABG Carboxyhemoglobin 1.2 POC ABG HHb (Measured) 0.8 ABG Methemoglobin 1.1 Fran Test Na A-a O2 Difference 89.0 Respiratory Index 0.7 Hgb O2 Saturation 96.9 Vent Mode Prvc Mechanical Rate 14 FiO2 35.0 Tidal Volume 450 PEEP 5 Sodium Potassium Chloride Carbon Dioxide Anion Gap BUN Creatinine Est GFR ( Amer) Est GFR (Non-Af Amer) POC Glucose (mg/dL) 191 H 193 H Random Glucose Calcium Phosphorus Magnesium Total Bilirubin AST ALT Alkaline Phosphatase Total Protein Albumin Globulin Albumin/Globulin Ratio 07/20/17 07/20/17 06:36 06:36 WBC 12.1 H RBC 2.94 L Hgb 8.0 L Hct 24.3 L MCV 82.6 MCH 27.1 MCHC 32.8 L RDW 15.4 H Plt Count 169 MPV 7.9 Neut % (Auto) 85.7 H Lymph % (Auto) 9.1 L [place] % (Auto) 4.4 Eos % (Auto) 0.5 Baso % (Auto) 0.3 Neut # 10.4 H Lymph # 1.1 [place] # 0.5 Eos # 0.1 Baso # 0.0 Neutrophils % (Manual) 90 H Lymphocytes % (Manual) 7 L Monocytes % (Manual) 3 Platelet Estimate Normal Polychromasia Slight Hypochromasia (manual) Slight Anisocytosis (manual) Slight Microcytosis (manual) Slight Puncture Site pCO2 pO2 HCO3 ABG pH ABG Total CO2 ABG O2 Saturation ABG Base Excess ABG Hemoglobin ABG Carboxyhemoglobin POC ABG HHb (Measured) ABG Methemoglobin Fran Test A-a O2 Difference Respiratory Index Hgb O2 Saturation Vent Mode Mechanical Rate FiO2 Tidal Volume PEEP Sodium 146 Potassium 4.0 Chloride 116 H Carbon Dioxide 26 Anion Gap 8 L BUN 20 H Creatinine 1.0 Est GFR ( Amer) > 60 Est GFR (Non-Af Amer) 56 POC Glucose (mg/dL) Random Glucose 198 H Calcium 7.0 L Phosphorus 2.0 L Magnesium 1.7 Total Bilirubin 0.3 AST 26 ALT 41 Alkaline Phosphatase 142 H Total Protein 4.7 L Albumin 1.8 L Globulin 2.9 Albumin/Globulin Ratio 0.6 L Fingerstick Blood Sugar Results: 193 Assessment/Plan - Assessment and Plan (Free Text) Assessment: Assessment Hypokalemia s/p Cardiac Arrest UTI Septic shock Hypertension (chronic) Arthritis Hyperparathyroidism Vesico-cecal fistula Ileostomy w/ Colostomy bag GERD b/l nephrostomy tubes Neuro: off sedation for extubation Cardio s/p ROSC from PEA Pulm 07/20 extubation HiFlow 40%, no stridor ABG post extubation: Duonebs 3cc INH RQ6H Hydrocoritsone 100mg IV Q8H GI wound care for ileostomy 07/20 per sparker and patcher: Glucerna 1.5 to goal rate of 30cc/hr for 720cc total, 1080 kcal, 59 gm protein, 546cc free H2O Reglan 10mg PO Q6H PRN : wound care for nephrostomies. No discharge as per nursing. Renal: Anticipating todays CMP. Arterial blood potassium 2.2. Ordered 6 bags of potassium 20 meq in 100 mls @ 50 mls/hr IVPB Q2H I/O: +270.8 Endo Novolog SC Q6H Nephro I/O ID Lactobacillus acidophilus 1 cap QD Merrem 500mg Q12H Vancomycin 1gm Q12H Prophylaxis: DVT: Heparin SC Q8. SCDs GI: Protonix 40mg PO QAM 1/2 NS @75cc/hr Dr. Yobani Golden, DO PGY1 - Date & Time Date: 07/20/17 Time: 10:46 <Yobani Higgins - Last Filed: 07/20/17 12:57> CCU Objective - Vital Signs / Intake & Output Vital Signs (Last 4 hours): Vital Signs Pulse Resp BP Pulse Ox 07/20/17 11:01 113 H 18 116/58 L 100 07/20/17 11:00 116 H 15 07/20/17 10:01 105 H 17 112/53 L 100 07/20/17 10:00 106 H 17 100 07/20/17 09:01 117 H 18 115/60 100 Intake and Output (Last 8hrs): Intake & Output 07/19/17 07/20/17 07/20/17 22:59 06:59 14:59 Intake Total 1877.4 1939.8 629.3 Output Total 1000 750 350 Balance 877.4 1189.8 279.3 Weight 78 lb 7.753 oz Intake: IV 100 354 15 Intake, IV Amount 1457.4 1245.8 494.3 Right Distal Port 45 63.8 0 Internal Jugular Right Internal Jugular 60 Right Medial Port 134.8 82.0 19.3 Internal Jugular Right PICC 67.6 Right Proximal Port 1150 1100 475 Internal Jugular Oral 100 100 Tube Feeding 220 240 120 Output: Drainage 1000 750 350 Abdomen 700 350 100 Left Back 200 200 150 Right Back 100 200 100 Emesis 0 - Medications Active Medications: Active Medications Generic Name Dose Route Start Last Admin Trade Name Freq PRN Reason Stop Dose Admin Albuterol/Ipratropium 3 ml 07/20/17 08:00 07/20/17 12:35 Duoneb 3 Mg/0.5 Mg (3 Ml) Ud INH 3 ml RQ6 VISHNU Administration Enoxaparin Sodium 30 mg 07/18/17 10:00 07/20/17 09:27 Lovenox SC 30 mg DAILY VISHNU Administration Hydrocortisone Sodium Succinate 100 mg 07/20/17 08:00 07/20/17 08:30 Solu-Cortef IV 100 mg Q8 VISHNU Administration Norepinephrine Bitartrate 4 mg 254 mls @ 15.24 mls/hr 07/17/17 13:36 05:30 / Sodium Chloride IV Infused .[id number] PRN Titration TITRATE PER MD ORDER Protocol 4 MCG/MIN Meropenem 500 mg/ Sodium 100 mls @ 100 mls/hr 07/17/17 21:00 07/20/17 09:32 Chloride IVPB 100 mls/hr Q12H VISHNU Administration Vancomycin/Sodium Chloride 1 gm in 200 mls @ 133.333 mls/hr 07/18/17 14:15 01:15 Vancomycin 1 Gm/Ns 200 Ml IVPB 07/23/17 14:16 133.333 mls/hr Q12H VISHNU Administration Sodium Chloride 1,000 mls @ 75 mls/hr 07/20/17 07:48 07/20/17 08:20 Sodium Chloride 0.45% IV 75 mls/hr .[id number] VISHNU Administration Insulin Aspart 0 unit 07/19/17 00:00 07/20/17 05:55 Novolog SC 1 unit Q6H VISHNU Administration Protocol Lactobacillus Acidophilus 1 cap 07/18/17 10:00 07/20/17 09:29 Bacid Acidophilus PO 1 cap DAILY VISHNU Administration Metoclopramide HCl 10 mg 07/17/17 20:19 Reglan PO Q6 PRN Nausea/Vomiting Metoprolol Tartrate 2.5 mg 07/19/17 21:45 07/20/17 09:28 Lopressor IVP 2.5 mg Q6H VISHNU Administration Pantoprazole Sodium 40 mg 07/19/17 10:00 07/20/17 05:30 Protonix Susp PO 40 mg 0600 VISHNU Administration - Patient Studies Lab Studies: Microbiology Studies 07/17/17 13:35 Blood Culture - Preliminary Blood NO GROWTH AFTER 48 HOURS 07/17/17 13:15 Blood Culture - Preliminary Blood NO GROWTH AFTER 48 HOURS Lab Studies 07/20/17 07/20/17 07/20/17 Range/Units 11:20 06:36 06:36 WBC 12.1 H (4.8-10.8) K/uL RBC 2.94 L (3.80-5.20) Mil/uL Hgb 8.0 L (11.0-16.0) g/dL Hct 24.3 L (34.0-47.0) % MCV 82.6 (81.0-99.0) fL MCH 27.1 (27.0-31.0) pg MCHC 32.8 L (33.0-37.0) g/dL RDW 15.4 H (11.5-14.5) % Plt Count 169 (130-400) K/uL MPV 7.9 (7.2-11.7) fL Neut % (Auto) 85.7 H (50.0-75.0) % Lymph % (Auto) 9.1 L (20.0-40.0) % [place] % (Auto) 4.4 (0.0-10.0) % Eos % (Auto) 0.5 (0.0-4.0) % Baso % (Auto) 0.3 (0.0-2.0) % Neut # 10.4 H (1.8-7.0) K/uL Lymph # 1.1 (1.0-4.3) K/uL [place] # 0.5 (0.0-0.8) K/uL Eos # 0.1 (0.0-0.7) K/uL Baso # 0.0 (0.0-0.2) K/uL Neutrophils % (Manual) 90 H (50-75) % Lymphocytes % (Manual) 7 L (20-40) % Monocytes % (Manual) 3 (0-10) % Platelet Estimate Normal (NORMAL) Polychromasia Slight Hypochromasia (manual) Slight Anisocytosis (manual) Slight Microcytosis (manual) Slight Puncture Site pCO2 (35-45) mm/Hg pO2 (80-100) mm/Hg HCO3 (21-28) mmol/L ABG pH (7.35-7.45) ABG Total CO2 (22-28) mmol/L ABG O2 Saturation (95-98) % ABG Base Excess (-2.0-3.0) mmol/L ABG Hemoglobin (11.7-17.4) g/dL ABG Carboxyhemoglobin (0.5-1.5) % POC ABG HHb (Measured) (0.0-5.0) % ABG Methemoglobin (0.0-3.0) % Fran Test A-a O2 Difference mm/Hg Respiratory Index Hgb O2 Saturation (95.0-98.0) % Vent Mode Mechanical Rate FiO2 % Tidal Volume PEEP Sodium 146 (132-148) mmol/L Potassium 4.0 (3.6-5.2) mmol/L Chloride 116 H (98-107) mmol/L Carbon Dioxide 26 (22-30) mmol/L Anion Gap 8 L (10-20) BUN 20 H (7-17) mg/dL Creatinine 1.0 (0.7-1.2) mg/dL Est GFR ( Amer) > 60 Est GFR (Non-Af Amer) 56 POC Glucose (mg/dL) 176 H (65-110) mg/dL Random Glucose 198 H (65-105) mg/dL Calcium 7.0 L (8.6-10.4) mg/dl Phosphorus 2.0 L (2.5-4.5) mg/dL Magnesium 1.7 (1.6-2.3) mg/dL Total Bilirubin 0.3 (0.2-1.3) mg/dL AST 26 (14-36) U/L ALT 41 (9-52) U/L Alkaline Phosphatase 142 H (38-126) U/L Total Protein 4.7 L (6.3-8.3) g/dL Albumin 1.8 L (3.5-5.0) g/dL Globulin 2.9 (2.2-3.9) gm/dL Albumin/Globulin Ratio 0.6 L (1.0-2.1) 07/20/17 07/20/17 07/19/17 Range/Units 05:52 05:18 23:32 WBC (4.8-10.8) K/uL RBC (3.80-5.20) Mil/uL Hgb (11.0-16.0) g/dL Hct (34.0-47.0) % MCV (81.0-99.0) fL MCH (27.0-31.0) pg MCHC (33.0-37.0) g/dL RDW (11.5-14.5) % Plt Count (130-400) K/uL MPV (7.2-11.7) fL Neut % (Auto) (50.0-75.0) % Lymph % (Auto) (20.0-40.0) % [place] % (Auto) (0.0-10.0) % Eos % (Auto) (0.0-4.0) % Baso % (Auto) (0.0-2.0) % Neut # (1.8-7.0) K/uL Lymph # (1.0-4.3) K/uL [place] # (0.0-0.8) K/uL Eos # (0.0-0.7) K/uL Baso # (0.0-0.2) K/uL Neutrophils % (Manual) (50-75) % Lymphocytes % (Manual) (20-40) % Monocytes % (Manual) (0-10) % Platelet Estimate (NORMAL) Polychromasia Hypochromasia (manual) Anisocytosis (manual) Microcytosis (manual) Puncture Site Lb pCO2 28 L (35-45) mm/Hg pO2 126 H (80-100) mm/Hg HCO3 24.2 (21-28) mmol/L ABG pH 7.49 H (7.35-7.45) ABG Total CO2 22.2 (22-28) mmol/L ABG O2 Saturation 99.2 H (95-98) % ABG Base Excess -0.9 (-2.0-3.0) mmol/L ABG Hemoglobin 13.6 (11.7-17.4) g/dL ABG Carboxyhemoglobin 1.2 (0.5-1.5) % POC ABG HHb (Measured) 0.8 (0.0-5.0) % ABG Methemoglobin 1.1 (0.0-3.0) % Fran Test Na A-a O2 Difference 89.0 mm/Hg Respiratory Index 0.7 Hgb O2 Saturation 96.9 (95.0-98.0) % Vent Mode Prvc Mechanical Rate 14 FiO2 35.0 % Tidal Volume 450 PEEP 5 Sodium (132-148) mmol/L Potassium (3.6-5.2) mmol/L Chloride (98-107) mmol/L Carbon Dioxide (22-30) mmol/L Anion Gap (10-20) BUN (7-17) mg/dL Creatinine (0.7-1.2) mg/dL Est GFR ( Amer) Est GFR (Non-Af Amer) POC Glucose (mg/dL) 193 H 191 H (65-110) mg/dL Random Glucose (65-105) mg/dL Calcium (8.6-10.4) mg/dl Phosphorus (2.5-4.5) mg/dL Magnesium (1.6-2.3) mg/dL Total Bilirubin (0.2-1.3) mg/dL AST (14-36) U/L ALT (9-52) U/L Alkaline Phosphatase (38-126) U/L Total Protein (6.3-8.3) g/dL Albumin (3.5-5.0) g/dL Globulin (2.2-3.9) gm/dL Albumin/Globulin Ratio (1.0-2.1) 07/19/17 07/19/17 07/19/17 Range/Units 17:28 16:19 11:02 WBC (4.8-10.8) K/uL RBC (3.80-5.20) Mil/uL Hgb (11.0-16.0) g/dL Hct (34.0-47.0) % MCV (81.0-99.0) fL MCH (27.0-31.0) pg MCHC (33.0-37.0) g/dL RDW (11.5-14.5) % Plt Count (130-400) K/uL MPV (7.2-11.7) fL Neut % (Auto) (50.0-75.0) % Lymph % (Auto) (20.0-40.0) % [place] % (Auto) (0.0-10.0) % Eos % (Auto) (0.0-4.0) % Baso % (Auto) (0.0-2.0) % Neut # (1.8-7.0) K/uL Lymph # (1.0-4.3) K/uL [place] # (0.0-0.8) K/uL Eos # (0.0-0.7) K/uL Baso # (0.0-0.2) K/uL Neutrophils % (Manual) (50-75) % Lymphocytes % (Manual) (20-40) % Monocytes % (Manual) (0-10) % Platelet Estimate (NORMAL) Polychromasia Hypochromasia (manual) Anisocytosis (manual) Microcytosis (manual) Puncture Site pCO2 (35-45) mm/Hg pO2 (80-100) mm/Hg HCO3 (21-28) mmol/L ABG pH (7.35-7.45) ABG Total CO2 (22-28) mmol/L ABG O2 Saturation (95-98) % ABG Base Excess (-2.0-3.0) mmol/L ABG Hemoglobin (11.7-17.4) g/dL ABG Carboxyhemoglobin (0.5-1.5) % POC ABG HHb (Measured) (0.0-5.0) % ABG Methemoglobin (0.0-3.0) % Fran Test A-a O2 Difference mm/Hg Respiratory Index Hgb O2 Saturation (95.0-98.0) % Vent Mode Mechanical Rate FiO2 % Tidal Volume PEEP Sodium 148 (132-148) mmol/L Potassium 4.4 (3.6-5.2) mmol/L Chloride 120 H (98-107) mmol/L Carbon Dioxide 19 L (22-30) mmol/L Anion Gap 14 (10-20) BUN 20 H (7-17) mg/dL Creatinine 1.2 (0.7-1.2) mg/dL Est GFR ( Amer) 55 Est GFR (Non-Af Amer) 45 POC Glucose (mg/dL) 216 H 134 H (65-110) mg/dL Random Glucose 183 H (65-105) mg/dL Calcium 6.7 L (8.6-10.4) mg/dl Phosphorus 2.1 L (2.5-4.5) mg/dL Magnesium 1.9 (1.6-2.3) mg/dL Total Bilirubin 0.4 (0.2-1.3) mg/dL AST 30 (14-36) U/L ALT 45 (9-52) U/L Alkaline Phosphatase 139 H (38-126) U/L Total Protein 4.9 L (6.3-8.3) g/dL Albumin 1.9 L (3.5-5.0) g/dL Globulin 3.0 (2.2-3.9) gm/dL Albumin/Globulin Ratio 0.6 L (1.0-2.1) Laboratory Results - last 24 hr 07/19/17 07/19/17 07/19/17 11:02 16:19 17:28 WBC RBC Hgb Hct MCV MCH MCHC RDW Plt Count MPV Neut % (Auto) Lymph % (Auto) [place] % (Auto) Eos % (Auto) Baso % (Auto) Neut # Lymph # [place] # Eos # Baso # Neutrophils % (Manual) Lymphocytes % (Manual) Monocytes % (Manual) Platelet Estimate Polychromasia Hypochromasia (manual) Anisocytosis (manual) Microcytosis (manual) Puncture Site pCO2 pO2 HCO3 ABG pH ABG Total CO2 ABG O2 Saturation ABG Base Excess ABG Hemoglobin ABG Carboxyhemoglobin POC ABG HHb (Measured) ABG Methemoglobin Fran Test A-a O2 Difference Respiratory Index Hgb O2 Saturation Vent Mode Mechanical Rate FiO2 Tidal Volume PEEP Sodium 148 Potassium 4.4 Chloride 120 H Carbon Dioxide 19 L Anion Gap 14 BUN 20 H Creatinine 1.2 Est GFR ( Amer) 55 Est GFR (Non-Af Amer) 45 POC Glucose (mg/dL) 134 H 216 H Random Glucose 183 H Calcium 6.7 L Phosphorus 2.1 L Magnesium 1.9 Total Bilirubin 0.4 AST 30 ALT 45 Alkaline Phosphatase 139 H Total Protein 4.9 L Albumin 1.9 L Globulin 3.0 Albumin/Globulin Ratio 0.6 L 07/19/17 07/20/17 07/20/17 23:32 05:18 05:52 WBC RBC Hgb Hct MCV MCH MCHC RDW Plt Count MPV Neut % (Auto) Lymph % (Auto) [place] % (Auto) Eos % (Auto) Baso % (Auto) Neut # Lymph # [place] # Eos # Baso # Neutrophils % (Manual) Lymphocytes % (Manual) Monocytes % (Manual) Platelet Estimate Polychromasia Hypochromasia (manual) Anisocytosis (manual) Microcytosis (manual) Puncture Site Lb pCO2 28 L pO2 126 H HCO3 24.2 ABG pH 7.49 H ABG Total CO2 22.2 ABG O2 Saturation 99.2 H ABG Base Excess -0.9 ABG Hemoglobin 13.6 ABG Carboxyhemoglobin 1.2 POC ABG HHb (Measured) 0.8 ABG Methemoglobin 1.1 Fran Test Na A-a O2 Difference 89.0 Respiratory Index 0.7 Hgb O2 Saturation 96.9 Vent Mode Prvc Mechanical Rate 14 FiO2 35.0 Tidal Volume 450 PEEP 5 Sodium Potassium Chloride Carbon Dioxide Anion Gap BUN Creatinine Est GFR ( Amer) Est GFR (Non-Af Amer) POC Glucose (mg/dL) 191 H 193 H Random Glucose Calcium Phosphorus Magnesium Total Bilirubin AST ALT Alkaline Phosphatase Total Protein Albumin Globulin Albumin/Globulin Ratio 07/20/17 07/20/17 07/20/17 06:36 06:36 11:20 WBC 12.1 H RBC 2.94 L Hgb 8.0 L Hct 24.3 L MCV 82.6 MCH 27.1 MCHC 32.8 L RDW 15.4 H Plt Count 169 MPV 7.9 Neut % (Auto) 85.7 H Lymph % (Auto) 9.1 L [place] % (Auto) 4.4 Eos % (Auto) 0.5 Baso % (Auto) 0.3 Neut # 10.4 H Lymph # 1.1 [place] # 0.5 Eos # 0.1 Baso # 0.0 Neutrophils % (Manual) 90 H Lymphocytes % (Manual) 7 L Monocytes % (Manual) 3 Platelet Estimate Normal Polychromasia Slight Hypochromasia (manual) Slight Anisocytosis (manual) Slight Microcytosis (manual) Slight Puncture Site pCO2 pO2 HCO3 ABG pH ABG Total CO2 ABG O2 Saturation ABG Base Excess ABG Hemoglobin ABG Carboxyhemoglobin POC ABG HHb (Measured) ABG Methemoglobin Fran Test A-a O2 Difference Respiratory Index Hgb O2 Saturation Vent Mode Mechanical Rate FiO2 Tidal Volume PEEP Sodium 146 Potassium 4.0 Chloride 116 H Carbon Dioxide 26 Anion Gap 8 L BUN 20 H Creatinine 1.0 Est GFR ( Amer) > 60 Est GFR (Non-Af Amer) 56 POC Glucose (mg/dL) 176 H Random Glucose 198 H Calcium 7.0 L Phosphorus 2.0 L Magnesium 1.7 Total Bilirubin 0.3 AST 26 ALT 41 Alkaline Phosphatase 142 H Total Protein 4.7 L Albumin 1.8 L Globulin 2.9 Albumin/Globulin Ratio 0.6 L Assessment/Plan - Assessment and Plan (Free Text) Plan: Patient seen and examined at bedside with multidisciplinary team. Patient dx with hypoxic respiratory failure. -I agree with above resident note. -Hypoxic respiratory failure: continue CPAP -CAD: at risk of [place], restart home medications as BP tolerates -COPD: keep spo2 b/w 90-92%, continue bronchodilators -continue dvt/pud ppx cc time 35 minutes
[2017-07-20] MEDS: Albuterol-Ipratrop 3 mg / 0.5 (3 ml) UD INH SCH ×2 (12:35→21:18)
[2017-07-20 17:29] LABS: ARTERIAL BLOOD GAS HCO3 25.4 mmol/L (21-28); ARTERIAL BLOOD GAS O2 SAT 94.8 % (95-98); ARTERIAL BLOOD GAS PCO2 34 mm/Hg (35-45); ARTERIAL BLOOD GAS PH 7.46 (7.35-7.45); ARTERIAL BLOOD GAS PO2 62 mm/Hg (80-100); ARTERIAL BLOOD GAS TCO2 25.2 mmol/L (22-28)
--- NOTE | 2017-07-20 20:41 | CP.PCM.PN ---
Subjective - Date & Time of Evaluation Date of Evaluation: 07/20/17 Time of Evaluation: 20:40 Objective - Vital Signs/Intake and Output Vital Signs (last 24 hours): Temp Pulse Resp BP Pulse Ox 98.1 F 93 H 16 123/71 100 07/20/17 16:00 07/20/17 19:01 07/20/17 19:01 07/20/17 19:01 07/20/17 19:01 Intake and Output: 07/20/17 07/21/17 18:59 06:59 Intake Total 1124.3 75 Output Total 1250 0 Balance -125.7 75 - Medications Medications: Current Medications Albuterol/Ipratropium (Duoneb 3 Mg/0.5 Mg (3 Ml) Ud) 3 ml INH RQ6 [facility] Last Admin: 07/20/17 12:35 Dose: 3 ml Enoxaparin Sodium (Lovenox) 30 mg SC DAILY [facility] Last Admin: 07/20/17 09:27 Dose: 30 mg Hydrocortisone Sodium Succinate (Solu-Cortef) 100 mg IV Q8 [facility] Last Admin: 07/20/17 13:23 Dose: 100 mg Norepinephrine Bitartrate 4 mg (/ Sodium Chloride) 254 mls @ 15.24 mls/hr IV .[id number] PRN; Protocol; 4 MCG/MIN PRN Reason: TITRATE PER MD ORDER Last Titration: 07/20/17 05:30 Dose: Infused Meropenem 500 mg/ Sodium (Chloride) 100 mls @ 100 mls/hr IVPB Q12H [facility] Last Admin: 07/20/17 09:32 Dose: 100 mls/hr Vancomycin/Sodium Chloride (Vancomycin 1 Gm/Ns 200 Ml) 1 gm in 200 mls @ 133.333 mls/hr IVPB Q12H [facility] Stop: 07/23/17 14:16 Last Admin: 07/20/17 13:23 Dose: 133.333 mls/hr Sodium Chloride (Sodium Chloride 0.45%) 1,000 mls @ 75 mls/hr IV .[id number] [facility] Last Admin: 07/20/17 08:20 Dose: 75 mls/hr Insulin Aspart (Novolog) 0 unit SC Q6H [facility] PRN Reason: Protocol Last Admin: 07/20/17 18:06 Dose: 2 unit Lactobacillus Acidophilus (Bacid Acidophilus) 1 cap PO DAILY [facility] Last Admin: 07/20/17 09:29 Dose: 1 cap Metoclopramide HCl (Reglan) 10 mg PO Q6 PRN PRN Reason: Nausea/Vomiting Metoprolol Tartrate (Lopressor) 2.5 mg IVP Q6H [facility] Last Admin: 07/20/17 17:12 Dose: 2.5 mg Pantoprazole Sodium (Protonix Susp) 40 mg PO 0600 [facility] Last Admin: 07/20/17 05:30 Dose: 40 mg - Labs Labs: 07/20/17 06:36 07/20/17 06:36 PT 13.0 SECONDS (9.7-12.2) H 07/17/17 14:00 INR 1.2 07/17/17 14:00 APTT 34 SECONDS (21-34) 07/17/17 14:00
[2017-07-21] MEDS: Albuterol-Ipratrop 3 mg / 0.5 (3 ml) UD INH SCH ×4 (01:35→19:32)
[2017-07-21] MEDS: Sodium Chloride 0.45% 1,000 ML IV SCH ×2 (02:55→12:00)
[2017-07-21] MEDS: Vancomycin 1 gm/NS 200 ml 1 GM/200 ML BAG IVPB SCH (03:15)
[2017-07-21] MEDS: Metoprolol 1 mg/ml Inj IVP SCH ×3 (04:00→19:00)
[2017-07-21] MEDS: Pantoprazole 40 mg Susp UD PO SCH (06:00)
[2017-07-21] MEDS: (Novolog) Insulin Aspart, Recombinant 100 u/ml 10 ml vial SC SCH ×4 (06:00→17:40)
[2017-07-21 06:19] LABS: HEMOGLOBIN 8.1 g/dL (11.0-16.0); LYMPH # 0.7 K/uL (1.0-4.3); LYMPH % 8.6 % (20.0-40.0); MEAN CELL VOLUME 82.9 fL (81.0-99.0); MEAN CORPUSCULAR HGB CONC 32.6 g/dL (33.0-37.0); MEAN PLATELET VOLUME 7.9 fL (7.2-11.7); MONO # 0.2 K/uL (0.0-0.8); MONO % 2.2 % (0.0-10.0); NEUT # 7.7 K/uL (1.8-7.0); NEUT % 89.2 % (50.0-75.0); PLATELET COUNT 159 K/uL (130-400); RED CELL DISTRIBUTION WIDTH 15.4 % (11.5-14.5); WHITE BLOOD COUNT 8.6 K/uL (4.8-10.8)
[2017-07-21 06:46] LABS: ALB/GLOB RATIO 0.6 (1.0-2.1); ALBUMIN 1.7 g/dL (3.5-5.0); ALT/SGPT 34 U/L (9-52); AST/SGOT 21 U/L (14-36); BLOOD UREA NITROGEN 19 mg/dL (7-17); CALCIUM 7.8 mg/dl (8.6-10.4); GFR AFRICAN-AMERICAN > 60; GFR NON-AFRICAN AMERICAN > 60; MAGNESIUM 1.4 mg/dL (1.6-2.3)
[2017-07-21] MEDS ORDERED: Metoprolol 1 mg/ml Inj IVP SCH (07:55)
[2017-07-21] MEDS: Magnesium Sulfate 1 gm in D5W 1 GM/100 ML BAG IVPB SCH ×2 (08:37→08:38)
[2017-07-21] MEDS: Meropenem 500 MG in Sodium Chloride 0.9% 100 ML IVPB SCH ×2 (08:38→21:00)
[2017-07-21 09:22] LABS: ANISOCYTOSIS SLIGHT; LYMPHOCYTE 4 % (20-40); MONOCYTE 2 % (0-10); NEUTROPHIL 94 % (50-75); PLATELET ESTIMATE NORMAL (NORMAL); TOTAL CELLS COUNTED 100
[2017-07-21 09:23] LABS: HYPOCHROMIC SLIGHT; POLYCHROMIC SLIGHT
[2017-07-21] MEDS: Enoxaparin 30 mg Syringe SC SCH (09:54)
[2017-07-21] MEDS: Lactobacillus Acidophilus 500 MU Cap PO SCH (09:54)
--- NOTE | 2017-07-21 13:11 | CP.CCUPN ---
<Zari Golden - Last Filed: 07/21/17 13:47> CCU Subjective - Physician Review Subjective (Free Text): 07/21/17 13:[address] Yobani Higgins Patient seen and examined at bedside. No acute events overnight. Patient's blood pressure medications changed. speech and swallow therapist at bedside doing the swallow test. Patient is actively speaking. Patient has no complaints at this time. Critical Care Time Spent (in minutes): 35 CCU Objective - Vital Signs / Intake & Output Vital Signs (Last 4 hours): Vital Signs Pulse Resp BP Pulse Ox 07/21/17 11:01 105 H 17 84/48 L 99 07/21/17 10:48 100 07/21/17 10:01 110 H 16 109/62 100 Intake and Output (Last 8hrs): Intake & Output 07/20/17 07/21/17 07/21/17 22:59 06:59 14:59 Intake Total 625 650 787 Output Total 1200 600 300 Balance -575 50 487 Weight 78 lb 0.698 oz Intake: Intake, IV Amount 625 650 447 Right Proximal Port 625 650 447 Internal Jugular Oral 340 Output: Drainage 1200 600 300 Abdomen 240 100 80 Left Back 380 200 120 Right Back 580 300 100 Emesis 0 0 - Physical Exam Head: Positive for: Atraumatic, Normocephalic Pupils: Positive for: PERRL Extroacular Muscles: Positive for: EOMI Conjunctiva: Positive for: Normal Mouth: Positive for: Moist Mucous Membranes, Other (no dentures, ). Negative for: Normal Teeth (patient uses dentures normally) Nose (External): Positive for: Atraumatic Neck: Positive for: Trachea Midline, Other (right TLC at IJ). Negative for: Lymphadenopathy Respiratory/Chest: Positive for: Clear to Auscultation. Negative for: Accessory Muscle Use Cardiovascular: Positive for: Regular Rate and Rhythm, Normal S1, S2 Abdomen: Positive for: Ostomy Tubes, Scars (from prior surgeries) Back: Positive for: Other (nephrostomy tube) Upper Extremity: Positive for: Normal Inspection, Normal ROM, Capillary Refill < 2s Lower Extremity: Positive for: Normal Inspection, Normal ROM, Capillary Refill < 2 s Neurological: Negative for: GCS=15 Skin: Positive for: Warm, Dry Psychiatric: Positive for: Alert - Medications Active Medications: Active Medications Generic Name Dose Route Start Last Admin Trade Name Freq PRN Reason Stop Dose Admin Albuterol/Ipratropium 3 ml 07/20/17 08:00 07/21/17 08:08 Duoneb 3 Mg/0.5 Mg (3 Ml) Ud INH 3 ml RQ6 [facility] Administration Enoxaparin Sodium 30 mg 07/18/17 10:00 07/21/17 09:54 Lovenox SC 30 mg DAILY [facility] Administration Meropenem 500 mg/ Sodium 100 mls @ 100 mls/hr 07/17/17 21:00 07/21/17 08:38 Chloride IVPB 100 mls/hr Q12H [facility] Administration Insulin Aspart 0 unit 07/19/17 00:00 07/21/17 12:28 Novolog SC 4 unit Q6H [facility] Administration Protocol Lactobacillus Acidophilus 1 cap 07/18/17 10:00 07/21/17 09:54 Bacid Acidophilus PO 1 cap DAILY [facility] Administration Metoclopramide HCl 10 mg 07/17/17 20:19 Reglan PO Q6 PRN Nausea/Vomiting Metoprolol Tartrate 2.5 mg 07/21/17 13:00 Lopressor IVP Q6H [facility] Pantoprazole Sodium 40 mg 07/19/17 10:00 07/21/17 06:00 Protonix Susp PO Not Given 0600 [facility] - Patient Studies Lab Studies: Microbiology Studies 07/17/17 13:35 Blood Culture - Preliminary Blood NO GROWTH AFTER 3 DAYS 07/17/17 13:15 Blood Culture - Preliminary Blood NO GROWTH AFTER 3 DAYS Lab Studies 07/21/17 07/21/17 07/21/17 Range/Units 06:11 06:11 06:07 WBC 8.6 (4.8-10.8) K/uL RBC 3.00 L (3.80-5.20) Mil/uL Hgb 8.1 L (11.0-16.0) g/dL Hct 24.9 L (34.0-47.0) % MCV 82.9 (81.0-99.0) fL MCH 27.0 (27.0-31.0) pg MCHC 32.6 L (33.0-37.0) g/dL RDW 15.4 H (11.5-14.5) % Plt Count 159 (130-400) K/uL MPV 7.9 (7.2-11.7) fL Neut % (Auto) 89.2 H (50.0-75.0) % Lymph % (Auto) 8.6 L (20.0-40.0) % [place] % (Auto) 2.2 (0.0-10.0) % Eos % (Auto) 0.0 (0.0-4.0) % Baso % (Auto) 0.0 (0.0-2.0) % Neut # 7.7 H (1.8-7.0) K/uL Lymph # 0.7 L (1.0-4.3) K/uL [place] # 0.2 (0.0-0.8) K/uL Eos # 0.0 (0.0-0.7) K/uL Baso # 0.0 (0.0-0.2) K/uL Neutrophils % (Manual) 94 H (50-75) % Lymphocytes % (Manual) 4 L (20-40) % Monocytes % (Manual) 2 (0-10) % Platelet Estimate Normal (NORMAL) Polychromasia Slight Hypochromasia (manual) Slight Anisocytosis (manual) Slight Puncture Site pCO2 (35-45) mm/Hg pO2 (80-100) mm/Hg HCO3 (21-28) mmol/L ABG pH (7.35-7.45) ABG Total CO2 (22-28) mmol/L ABG O2 Saturation (95-98) % ABG Base Excess (-2.0-3.0) mmol/L Fran Test ABG Potassium (3.6-5.2) mmol/L A-a O2 Difference mm/Hg Respiratory Index Sodium 144 (132-148) mmol/l Chloride 115 H (98-107) mmol/L Glucose (65-105) mg/dl Lactate (0.7-2.1) mmol/L FiO2 % Potassium 3.4 L (3.6-5.2) mmol/L Carbon Dioxide 26 (22-30) mmol/L Anion Gap 6 L (10-20) BUN 19 H (7-17) mg/dL Creatinine 0.9 (0.7-1.2) mg/dL Est GFR ( Amer) > 60 Est GFR (Non-Af Amer) > 60 POC Glucose (mg/dL) 154 H (65-110) mg/dL Random Glucose 140 H (65-105) mg/dL Calcium 7.8 L (8.6-10.4) mg/dl Phosphorus 3.3 (2.5-4.5) mg/dL Magnesium 1.4 L (1.6-2.3) mg/dL Total Bilirubin 0.4 (0.2-1.3) mg/dL AST 21 (14-36) U/L ALT 34 (9-52) U/L Alkaline Phosphatase 109 (38-126) U/L Total Protein 4.5 L (6.3-8.3) g/dL Albumin 1.7 L (3.5-5.0) g/dL Globulin 2.8 (2.2-3.9) gm/dL Albumin/Globulin Ratio 0.6 L (1.0-2.1) Arterial Blood Potassium (3.6-5.2) mmol/L 07/21/17 07/20/17 07/20/17 Range/Units 00:05 17:52 17:25 WBC (4.8-10.8) K/uL RBC (3.80-5.20) Mil/uL Hgb (11.0-16.0) g/dL Hct (34.0-47.0) % MCV (81.0-99.0) fL MCH (27.0-31.0) pg MCHC (33.0-37.0) g/dL RDW (11.5-14.5) % Plt Count (130-400) K/uL MPV (7.2-11.7) fL Neut % (Auto) (50.0-75.0) % Lymph % (Auto) (20.0-40.0) % [place] % (Auto) (0.0-10.0) % Eos % (Auto) (0.0-4.0) % Baso % (Auto) (0.0-2.0) % Neut # (1.8-7.0) K/uL Lymph # (1.0-4.3) K/uL [place] # (0.0-0.8) K/uL Eos # (0.0-0.7) K/uL Baso # (0.0-0.2) K/uL Neutrophils % (Manual) (50-75) % Lymphocytes % (Manual) (20-40) % Monocytes % (Manual) (0-10) % Platelet Estimate (NORMAL) Polychromasia Hypochromasia (manual) Anisocytosis (manual) Puncture Site Lra pCO2 34 L (35-45) mm/Hg pO2 62 L (80-100) mm/Hg HCO3 25.4 (21-28) mmol/L ABG pH 7.46 H (7.35-7.45) ABG Total CO2 25.2 (22-28) mmol/L ABG O2 Saturation 94.8 L (95-98) % ABG Base Excess 0.8 (-2.0-3.0) mmol/L Fran Test Na ABG Potassium 4.0 (3.6-5.2) mmol/L A-a O2 Difference 45.0 mm/Hg Respiratory Index 0.7 Sodium 148.0 (132-148) mmol/l Chloride 121.0 H (98-107) mmol/L Glucose 237 H (65-105) mg/dl Lactate 0.7 (0.7-2.1) mmol/L FiO2 21.0 % Potassium (3.6-5.2) mmol/L Carbon Dioxide (22-30) mmol/L Anion Gap (10-20) BUN (7-17) mg/dL Creatinine (0.7-1.2) mg/dL Est GFR ( Amer) Est GFR (Non-Af Amer) POC Glucose (mg/dL) 178 H 238 H (65-110) mg/dL Random Glucose (65-105) mg/dL Calcium (8.6-10.4) mg/dl Phosphorus (2.5-4.5) mg/dL Magnesium (1.6-2.3) mg/dL Total Bilirubin (0.2-1.3) mg/dL AST (14-36) U/L ALT (9-52) U/L Alkaline Phosphatase (38-126) U/L Total Protein (6.3-8.3) g/dL Albumin (3.5-5.0) g/dL Globulin (2.2-3.9) gm/dL Albumin/Globulin Ratio (1.0-2.1) Arterial Blood Potassium 4.0 (3.6-5.2) mmol/L Laboratory Results - last 24 hr 07/20/17 07/20/17 07/21/17 17:25 17:52 00:05 WBC RBC Hgb Hct MCV MCH MCHC RDW Plt Count MPV Neut % (Auto) Lymph % (Auto) [place] % (Auto) Eos % (Auto) Baso % (Auto) Neut # Lymph # [place] # Eos # Baso # Neutrophils % (Manual) Lymphocytes % (Manual) Monocytes % (Manual) Platelet Estimate Polychromasia Hypochromasia (manual) Anisocytosis (manual) Puncture Site Lra pCO2 34 L pO2 62 L HCO3 25.4 ABG pH 7.46 H ABG Total CO2 25.2 ABG O2 Saturation 94.8 L ABG Base Excess 0.8 Fran Test Na ABG Potassium 4.0 A-a O2 Difference 45.0 Respiratory Index 0.7 Sodium 148.0 Chloride 121.0 H Glucose 237 H Lactate 0.7 FiO2 21.0 Potassium Carbon Dioxide Anion Gap BUN Creatinine Est GFR ( Amer) Est GFR (Non-Af Amer) POC Glucose (mg/dL) 238 H 178 H Random Glucose Calcium Phosphorus Magnesium Total Bilirubin AST ALT Alkaline Phosphatase Total Protein Albumin Globulin Albumin/Globulin Ratio Arterial Blood Potassium 4.0 07/21/17 07/21/17 07/21/17 06:07 06:11 06:11 WBC 8.6 RBC 3.00 L Hgb 8.1 L Hct 24.9 L MCV 82.9 MCH 27.0 MCHC 32.6 L RDW 15.4 H Plt Count 159 MPV 7.9 Neut % (Auto) 89.2 H Lymph % (Auto) 8.6 L [place] % (Auto) 2.2 Eos % (Auto) 0.0 Baso % (Auto) 0.0 Neut # 7.7 H Lymph # 0.7 L [place] # 0.2 Eos # 0.0 Baso # 0.0 Neutrophils % (Manual) 94 H Lymphocytes % (Manual) 4 L Monocytes % (Manual) 2 Platelet Estimate Normal Polychromasia Slight Hypochromasia (manual) Slight Anisocytosis (manual) Slight Puncture Site pCO2 pO2 HCO3 ABG pH ABG Total CO2 ABG O2 Saturation ABG Base Excess Fran Test ABG Potassium A-a O2 Difference Respiratory Index Sodium 144 Chloride 115 H Glucose Lactate FiO2 Potassium 3.4 L Carbon Dioxide 26 Anion Gap 6 L BUN 19 H Creatinine 0.9 Est GFR ( Amer) > 60 Est GFR (Non-Af Amer) > 60 POC Glucose (mg/dL) 154 H Random Glucose 140 H Calcium 7.8 L Phosphorus 3.3 Magnesium 1.4 L Total Bilirubin 0.4 AST 21 ALT 34 Alkaline Phosphatase 109 Total Protein 4.5 L Albumin 1.7 L Globulin 2.8 Albumin/Globulin Ratio 0.6 L Arterial Blood Potassium Fingerstick Blood Sugar Results: 305 Critical Care Progress Note - Nutrition Nutrition: Nutrition Category Date Time Status Pureed [Dysphagia/Modified Consistency Diet] [DIET] Diets 07/21/17 Lunch Active Assessment/Plan - Assessment and Plan (Free Text) Assessment: Assessment Hypokalemia s/p Cardiac Arrest UTI (resolved) Sepsis (resolved) Septic shock (resolved) Hypertension (chronic) Arthritis Hyperparathyroidism Vesico-caecal fistula Ileostomy w/ Colostomy bag GERD b/l nephrostomy tubes Plan Extubated on 07/20. Tolerating nasal cannula. Tolerating PO liquids and purree. Speech and Swallow eval today. Physical Therapy and Occupational therapy ordered. Encouraged to ambulate to chair. Discontinuing Vancomycin. Neuro: awake and alert Sedation: n/a Pain: none Psych: nothing to do. Cardio: S/p compressions and 2 doses of epinephrine for cardiac arrest. Norepinephrine Bitartrate 254 mls @ 15.24 mls/hr IV for hypotension. Lopressor 2.5 mg IVP Q6H for tachycardia. Pulm: CXR shows no active disease. Endo: Novolin R 5 unit IV stat. Random Glucose 71 GI: wound care for ileostomy Reglan 10mg PO Q6 PRN diet: pureed, thickened honey : wound care for nephrostomies. No discharge as per nursing. Renal: Na 144// K 3.4 // Cl 115 // HCO3 26 // BUN 19 // Cr 0.9 // Mg 1.4. Potassium chloride 20 meq IV for borderline hypokalemia. I/O: -50.7 Heme/Onc: H/H: 8.1/24.p Pt 13// PTT 34// INR 1.2 (07/18/17) MSK: ntd. ID: WBC 8.6. Meropenem 500 mg in NaCl 100 mls @ 100 mls/hr IVPB Q12H. D/C Vancomycin. f/u AM CBC Prophylaxis: DVT: Lovenox 30mg SC QD GI: Protonix 40 mg IVP Daily discussed with Dr. Yobani Golden DO PGY1 - Date & Time Date: 07/21/17 Time: 13:48 <Yobani Higgins - Last Filed: 07/21/17 17:50> CCU Subjective - Physician Review Critical Care Time Spent (in minutes): 0 CCU Objective - Vital Signs / Intake & Output Vital Signs (Last 4 hours): Vital Signs Pulse Resp BP Pulse Ox 07/21/17 16:15 102 H 109/62 99 07/21/17 15:01 116 H 17 88/46 L 99 07/21/17 14:00 91 H 13 87/44 L 100 Intake and Output (Last 8hrs): Intake & Output 07/21/17 07/21/17 07/21/17 06:59 14:59 22:59 Intake Total 650 1087 Output Total 600 300 0 Balance 50 787 0 Weight 78 lb 0.698 oz Intake: Intake, IV Amount 650 447 Right Proximal Port 650 447 Internal Jugular Oral 640 Output: Drainage 600 300 Abdomen 100 80 Left Back 200 120 Right Back 300 100 Emesis 0 0 - Medications Active Medications: Active Medications Generic Name Dose Route Start Last Admin Trade Name Freq PRN Reason Stop Dose Admin Albuterol/Ipratropium 3 ml 07/20/17 08:00 07/21/17 13:51 Duoneb 3 Mg/0.5 Mg (3 Ml) Ud INH 3 ml RQ6 VISHNU Administration Enoxaparin Sodium 30 mg 07/18/17 10:00 07/21/17 09:54 Lovenox SC 30 mg DAILY VISHNU Administration Meropenem 500 mg/ Sodium 100 mls @ 100 mls/hr 07/17/17 21:00 07/21/17 08:38 Chloride IVPB 100 mls/hr Q12H [facility]NU Administration Insulin Aspart 0 unit 07/19/17 00:00 07/21/17 17:40 Novolog SC 4 unit Q6H [facility] Administration Protocol Lactobacillus Acidophilus 1 cap 07/18/17 10:00 07/21/17 09:54 Bacid Acidophilus PO 1 cap DAILY [facility] Administration Metoclopramide HCl 10 mg 07/17/17 20:19 Reglan PO Q6 PRN Nausea/Vomiting Metoprolol Tartrate 2.5 mg 07/21/17 13:00 07/21/17 13:30 Lopressor IVP Not Given Q6H [facility] Pantoprazole Sodium 40 mg 07/19/17 10:00 07/21/17 06:00 Protonix Susp PO Not Given 0600 [facility] - Patient Studies Lab Studies: Microbiology Studies 07/17/17 13:35 Blood Culture - Preliminary Blood NO GROWTH AFTER 4 DAYS 07/17/17 13:15 Blood Culture - Preliminary Blood NO GROWTH AFTER 4 DAYS Lab Studies 07/21/17 07/21/17 07/21/17 Range/Units 12:23 06:11 06:11 WBC 8.6 (4.8-10.8) K/uL RBC 3.00 L (3.80-5.20) Mil/uL Hgb 8.1 L (11.0-16.0) g/dL Hct 24.9 L (34.0-47.0) % MCV 82.9 (81.0-99.0) fL MCH 27.0 (27.0-31.0) pg MCHC 32.6 L (33.0-37.0) g/dL RDW 15.4 H (11.5-14.5) % Plt Count 159 (130-400) K/uL MPV 7.9 (7.2-11.7) fL Neut % (Auto) 89.2 H (50.0-75.0) % Lymph % (Auto) 8.6 L (20.0-40.0) % Walker % (Auto) 2.2 (0.0-10.0) % Eos % (Auto) 0.0 (0.0-4.0) % Baso % (Auto) 0.0 (0.0-2.0) % Neut # 7.7 H (1.8-7.0) K/uL Lymph # 0.7 L (1.0-4.3) K/uL Walker # 0.2 (0.0-0.8) K/uL Eos # 0.0 (0.0-0.7) K/uL Baso # 0.0 (0.0-0.2) K/uL Neutrophils % (Manual) 94 H (50-75) % Lymphocytes % (Manual) 4 L (20-40) % Monocytes % (Manual) 2 (0-10) % Platelet Estimate Normal (NORMAL) Polychromasia Slight Hypochromasia (manual) Slight Anisocytosis (manual) Slight Sodium 144 (132-148) mmol/L Potassium 3.4 L (3.6-5.2) mmol/L Chloride 115 H (98-107) mmol/L Carbon Dioxide 26 (22-30) mmol/L Anion Gap 6 L (10-20) BUN 19 H (7-17) mg/dL Creatinine 0.9 (0.7-1.2) mg/dL Est GFR ( Amer) > 60 Est GFR (Non-Af Amer) > 60 POC Glucose (mg/dL) 305 H (65-110) mg/dL Random Glucose 140 H (65-105) mg/dL Calcium 7.8 L (8.6-10.4) mg/dl Phosphorus 3.3 (2.5-4.5) mg/dL Magnesium 1.4 L (1.6-2.3) mg/dL Total Bilirubin 0.4 (0.2-1.3) mg/dL AST 21 (14-36) U/L ALT 34 (9-52) U/L Alkaline Phosphatase 109 (38-126) U/L Total Protein 4.5 L (6.3-8.3) g/dL Albumin 1.7 L (3.5-5.0) g/dL Globulin 2.8 (2.2-3.9) gm/dL Albumin/Globulin Ratio 0.6 L (1.0-2.1) 07/21/17 07/21/17 07/20/17 Range/Units 06:07 00:05 17:52 WBC (4.8-10.8) K/uL RBC (3.80-5.20) Mil/uL Hgb (11.0-16.0) g/dL Hct (34.0-47.0) % MCV (81.0-99.0) fL MCH (27.0-31.0) pg MCHC (33.0-37.0) g/dL RDW (11.5-14.5) % Plt Count (130-400) K/uL MPV (7.2-11.7) fL Neut % (Auto) (50.0-75.0) % Lymph % (Auto) (20.0-40.0) % Walker % (Auto) (0.0-10.0) % Eos % (Auto) (0.0-4.0) % Baso % (Auto) (0.0-2.0) % Neut # (1.8-7.0) K/uL Lymph # (1.0-4.3) K/uL Walker # (0.0-0.8) K/uL Eos # (0.0-0.7) K/uL Baso # (0.0-0.2) K/uL Neutrophils % (Manual) (50-75) % Lymphocytes % (Manual) (20-40) % Monocytes % (Manual) (0-10) % Platelet Estimate (NORMAL) Polychromasia Hypochromasia (manual) Anisocytosis (manual) Sodium (132-148) mmol/L Potassium (3.6-5.2) mmol/L Chloride (98-107) mmol/L Carbon Dioxide (22-30) mmol/L Anion Gap (10-20) BUN (7-17) mg/dL Creatinine (0.7-1.2) mg/dL Est GFR ( Amer) Est GFR (Non-Af Amer) POC Glucose (mg/dL) 154 H 178 H 238 H (65-110) mg/dL Random Glucose (65-105) mg/dL Calcium (8.6-10.4) mg/dl Phosphorus (2.5-4.5) mg/dL Magnesium (1.6-2.3) mg/dL Total Bilirubin (0.2-1.3) mg/dL AST (14-36) U/L ALT (9-52) U/L Alkaline Phosphatase (38-126) U/L Total Protein (6.3-8.3) g/dL Albumin (3.5-5.0) g/dL Globulin (2.2-3.9) gm/dL Albumin/Globulin Ratio (1.0-2.1) Laboratory Results - last 24 hr 07/20/17 07/21/17 07/21/17 17:52 00:05 06:07 WBC RBC Hgb Hct MCV MCH MCHC RDW Plt Count MPV Neut % (Auto) Lymph % (Auto) Walker % (Auto) Eos % (Auto) Baso % (Auto) Neut # Lymph # Walker # Eos # Baso # Neutrophils % (Manual) Lymphocytes % (Manual) Monocytes % (Manual) Platelet Estimate Polychromasia Hypochromasia (manual) Anisocytosis (manual) Sodium Potassium Chloride Carbon Dioxide Anion Gap BUN Creatinine Est GFR ( Amer) Est GFR (Non-Af Amer) POC Glucose (mg/dL) 238 H 178 H 154 H Random Glucose Calcium Phosphorus Magnesium Total Bilirubin AST ALT Alkaline Phosphatase Total Protein Albumin Globulin Albumin/Globulin Ratio 07/21/17 07/21/17 07/21/17 06:11 06:11 12:23 WBC 8.6 RBC 3.00 L Hgb 8.1 L Hct 24.9 L MCV 82.9 MCH 27.0 MCHC 32.6 L RDW 15.4 H Plt Count 159 MPV 7.9 Neut % (Auto) 89.2 H Lymph % (Auto) 8.6 L Walker % (Auto) 2.2 Eos % (Auto) 0.0 Baso % (Auto) 0.0 Neut # 7.7 H Lymph # 0.7 L Walker # 0.2 Eos # 0.0 Baso # 0.0 Neutrophils % (Manual) 94 H Lymphocytes % (Manual) 4 L Monocytes % (Manual) 2 Platelet Estimate Normal Polychromasia Slight Hypochromasia (manual) Slight Anisocytosis (manual) Slight Sodium 144 Potassium 3.4 L Chloride 115 H Carbon Dioxide 26 Anion Gap 6 L BUN 19 H Creatinine 0.9 Est GFR ( Amer) > 60 Est GFR (Non-Af Amer) > 60 POC Glucose (mg/dL) 305 H Random Glucose 140 H Calcium 7.8 L Phosphorus 3.3 Magnesium 1.4 L Total Bilirubin 0.4 AST 21 ALT 34 Alkaline Phosphatase 109 Total Protein 4.5 L Albumin 1.7 L Globulin 2.8 Albumin/Globulin Ratio 0.6 L Critical Care Progress Note - Nutrition Nutrition: Nutrition Category Date Time Status Pureed [Dysphagia/Modified Consistency Diet] [DIET] Diets 07/21/17 Lunch Active Assessment/Plan - Assessment and Plan (Free Text) Plan: Patient with h/o COPD. Patient tolerated extubation -tolerated oral diet -remains hemodynamically stable -restart home medications -avoid flexaril
--- NOTE | 2017-07-21 16:08 | CP.PCM.PN ---
Subjective - Date & Time of Evaluation Date of Evaluation: 07/21/17 Time of Evaluation: 16:08 Objective - Vital Signs/Intake and Output Vital Signs (last 24 hours): Temp Pulse Resp BP Pulse Ox 98.1 F 116 H 17 88/46 L 99 07/21/17 08:00 07/21/17 15:01 07/21/17 15:01 07/21/17 15:01 07/21/17 15:01 Intake and Output: 07/21/17 07/21/17 06:59 18:59 Intake Total 975 1087 Output Total 900 300 Balance 75 787 - Medications Medications: Current Medications Albuterol/Ipratropium (Duoneb 3 Mg/0.5 Mg (3 Ml) Ud) 3 ml INH RQ6 [facility] Last Admin: 07/21/17 13:51 Dose: 3 ml Enoxaparin Sodium (Lovenox) 30 mg SC DAILY [facility] Last Admin: 07/21/17 09:54 Dose: 30 mg Meropenem 500 mg/ Sodium (Chloride) 100 mls @ 100 mls/hr IVPB Q12H [facility] Last Admin: 07/21/17 08:38 Dose: 100 mls/hr Insulin Aspart (Novolog) 0 unit SC Q6H [facility] PRN Reason: Protocol Last Admin: 07/21/17 12:28 Dose: 4 unit Lactobacillus Acidophilus (Bacid Acidophilus) 1 cap PO DAILY [facility] Last Admin: 07/21/17 09:54 Dose: 1 cap Metoclopramide HCl (Reglan) 10 mg PO Q6 PRN PRN Reason: Nausea/Vomiting Metoprolol Tartrate (Lopressor) 2.5 mg IVP Q6H [facility] Last Admin: 07/21/17 13:30 Dose: Not Given Pantoprazole Sodium (Protonix Susp) 40 mg PO 0600 [facility] Last Admin: 07/21/17 06:00 Dose: Not Given - Labs Labs: 07/21/17 06:11 07/21/17 06:11 PT 13.0 SECONDS (9.7-12.2) H 07/17/17 14:00 INR 1.2 07/17/17 14:00 APTT 34 SECONDS (21-34) 07/17/17 14:00
[2017-07-22] MEDS: Metoprolol 1 mg/ml Inj IVP SCH ×4 (01:24→18:10)
[2017-07-22] MEDS: Albuterol-Ipratrop 3 mg / 0.5 (3 ml) UD INH SCH ×4 (02:44→19:17)
[2017-07-22] MEDS: (Novolog) Insulin Aspart, Recombinant 100 u/ml 10 ml vial SC SCH ×4 (06:00→18:11)
[2017-07-22] MEDS: Pantoprazole 40 mg Susp UD PO SCH (07:09)
[2017-07-22 07:37] LABS: BASO % 0.2 % (0.0-2.0); HEMOGLOBIN 8.3 g/dL (11.0-16.0); LYMPH # 0.9 K/uL (1.0-4.3); LYMPH % 12.2 % (20.0-40.0); MEAN CELL VOLUME 84.2 fL (81.0-99.0); MEAN CORPUSCULAR HEMOGLOBIN 27.8 pg (27.0-31.0); MEAN PLATELET VOLUME 8.2 fL (7.2-11.7); MONO # 0.3 K/uL (0.0-0.8); MONO % 4.7 % (0.0-10.0); NEUT # 5.8 K/uL (1.8-7.0); NEUT % 82.9 % (50.0-75.0); NRBC % 0.1 % (0.0-2.0); RBC 2.99 Mil/uL (3.80-5.20); RED CELL DISTRIBUTION WIDTH 15.4 % (11.5-14.5)
[2017-07-22 08:24] LABS: ALBUMIN 1.8 g/dL (3.5-5.0); ALT/SGPT 27 U/L (9-52); AST/SGOT 17 U/L (14-36); BLOOD UREA NITROGEN 24 mg/dL (7-17); CALCIUM 8.5 mg/dl (8.6-10.4); GFR AFRICAN-AMERICAN > 60; GFR NON-AFRICAN AMERICAN 56; MAGNESIUM 1.8 mg/dL (1.6-2.3)
[2017-07-22 08:37] LABS: ALB/GLOB RATIO 0.6 (1.0-2.1)
[2017-07-22] MEDS: Lactobacillus Acidophilus 500 MU Cap PO SCH (09:29)
[2017-07-22] MEDS: Enoxaparin 30 mg Syringe SC SCH (09:29)
[2017-07-22] MEDS: Meropenem 500 MG in Sodium Chloride 0.9% 100 ML IVPB SCH ×2 (09:30→20:12)
--- NOTE | 2017-07-22 09:33 | CP.CCUPN ---
CCU Subjective - Physician Review Events Since Last Encounter (Free Text): 07/22/17 09:33 Pt is a 62 y/o F presenting to ED via EMS for post-cardiac arrest evaluation. As per EMS, patient had a witnessed episode of cardiac arrest and went into PEA. Two epinephrines administered w/ ROSC. Pt presented to ED initially w/ EKG concerning for STEMI. Dr. Mohr called to bedside and Pt did not meet criteria for code heart. Additional hx limited secondary to Pts clinical condition. PMHx - HTN, arthritis, hyperthyroidism, vesico-caecal fistula, ileostomy w/ colostomy bag placement, GERD, colitis, and b/l nephrostomy tubes PSHx - 11/2016: Hysterectomy @[facility] [place]; - 04/12/2017: Exlap w/ extensive lysis of adhesions, small bowel resection at fistula site in terminal ileum, small bowel resection of proximal ileum, bladder repair w/ omental plug, appendectomy, loop ileostomy, removal of gonzalez cath foreign body in right colon, drainage of umbilical abscess 04/12/2017; -05/03/2017 and 05/08/2017: debridement of abdominal wound (midline and abdominal wall) and placement of woundvac and ileostomy site wound care 2016 and 05/08/2017; - 05/24/2017: R IR nephrostomy tube insertion - 06/13/2017: b/l nephrostomy tube insertion (L tube insertion and R tube change ) Allergies: NKDA Patient in the intensive care unit, was evaluated and managed. Patient got extubated yesterday. Currently awake and responding. Clinically the patient is stable at this time. Patient can be transferred to telemetry. Advanced directives. Patient is very emaciated. Her prognosis is very poor Consider hospice care Critical Care Time Spent (in minutes): 45 CCU Objective - Vital Signs / Intake & Output Vital Signs (Last 4 hours): Vital Signs Pulse Resp BP Pulse Ox 07/22/17 09:01 125 H 12 85/50 L 99 07/22/17 08:00 113 H 13 112/64 100 07/22/17 07:00 93 H 13 113/66 100 07/22/17 06:01 109 H 13 106/56 L 100 07/22/17 06:00 93 H 14 100 Intake and Output (Last 8hrs): Intake & Output 0107/22/17 07/22/17 22:59 06:59 14:59 Intake Total 680 120 340 Output Total 1540 750 Balance -860 120 -410 Weight 79 lb 0.03 oz Intake: Intake, IV Amount 100 Right Proximal Port 100 Internal Jugular Oral 580 120 340 Output: Drainage 1540 750 Abdomen 1100 400 Left Back 260 200 Right Back 180 150 Emesis 0 0 - Physical Exam Head: Positive for: Atraumatic, Normocephalic Pupils: Positive for: PERRL Extroacular Muscles: Positive for: EOMI Conjunctiva: Positive for: Normal Mouth: Positive for: Moist Mucous Membranes, Other (no dentures, ). Negative for: Normal Teeth (patient uses dentures normally) Nose (External): Positive for: Atraumatic Neck: Positive for: Trachea Midline, Other (right TLC at IJ). Negative for: Lymphadenopathy Respiratory/Chest: Positive for: Clear to Auscultation. Negative for: Accessory Muscle Use Cardiovascular: Positive for: Regular Rate and Rhythm, Normal S1, S2 Abdomen: Positive for: Ostomy Tubes, Scars (from prior surgeries) Back: Positive for: Other (nephrostomy tube) Upper Extremity: Positive for: Normal Inspection, Normal ROM, Capillary Refill < 2s Lower Extremity: Positive for: Normal Inspection, Normal ROM, Capillary Refill < 2 s Neurological: Negative for: GCS=15 Skin: Positive for: Warm, Dry Psychiatric: Positive for: Alert - Medications Active Medications: Active Medications Generic Name Dose Route Start Last Admin Trade Name Freq PRN Reason Stop Dose Admin Albuterol/Ipratropium 3 ml 07/20/17 08:00 07/22/17 07:45 Duoneb 3 Mg/0.5 Mg (3 Ml) Ud INH 3 ml RQ6 [facility] Administration Enoxaparin Sodium 30 mg 07/18/17 10:00 07/21/17 09:54 Lovenox SC 30 mg DAILY [facility] Administration Meropenem 500 mg/ Sodium 100 mls @ 100 mls/hr 07/17/17 21:00 07/21/17 21:00 Chloride IVPB 100 mls/hr Q12H [facility] Administration Insulin Aspart 0 unit 07/19/17 00:00 07/22/17 06:00 Novolog SC 1 unit Q6H [facility] Administration Protocol Lactobacillus Acidophilus 1 cap 07/18/17 10:00 07/21/17 09:54 Bacid Acidophilus PO 1 cap DAILY [facility] Administration Metoclopramide HCl 10 mg 07/17/17 20:19 Reglan PO Q6 PRN Nausea/Vomiting Metoprolol Tartrate 2.5 mg 07/21/17 13:00 07/22/17 06:00 Lopressor IVP 2.5 mg Q6H [facility] Administration Pantoprazole Sodium 40 mg 07/19/17 10:00 07/22/17 07:09 Protonix Susp PO 40 mg 0600 [facility] Administration - Patient Studies Lab Studies: Microbiology Studies 07/17/17 13:35 Blood Culture - Preliminary Blood NO GROWTH AFTER 4 DAYS 07/17/17 13:15 Blood Culture - Preliminary Blood NO GROWTH AFTER 4 DAYS Lab Studies 07/22/17 07/22/17 07/22/17 Range/Units 07:26 07:26 06:39 WBC 7.0 (4.8-10.8) K/uL RBC 2.99 L (3.80-5.20) Mil/uL Hgb 8.3 L (11.0-16.0) g/dL Hct 25.2 L (34.0-47.0) % MCV 84.2 (81.0-99.0) fL MCH 27.8 (27.0-31.0) pg MCHC 33.0 (33.0-37.0) g/dL RDW 15.4 H (11.5-14.5) % Plt Count 182 (130-400) K/uL MPV 8.2 (7.2-11.7) fL Neut % (Auto) 82.9 H (50.0-75.0) % Lymph % (Auto) 12.2 L (20.0-40.0) % Kern % (Auto) 4.7 (0.0-10.0) % Eos % (Auto) 0.0 (0.0-4.0) % Baso % (Auto) 0.2 (0.0-2.0) % Neut # 5.8 (1.8-7.0) K/uL Lymph # 0.9 L (1.0-4.3) K/uL Kern # 0.3 (0.0-0.8) K/uL Eos # 0.0 (0.0-0.7) K/uL Baso # 0.0 (0.0-0.2) K/uL Sodium 141 (132-148) mmol/L Potassium 3.6 (3.6-5.2) mmol/L Chloride 116 H (98-107) mmol/L Carbon Dioxide 23 (22-30) mmol/L Anion Gap 6 L (10-20) BUN 24 H (7-17) mg/dL Creatinine 1.0 (0.7-1.2) mg/dL Est GFR ( Amer) > 60 Est GFR (Non-Af Amer) 56 POC Glucose (mg/dL) 235 H (65-110) mg/dL Random Glucose 213 H (65-105) mg/dL Calcium 8.5 L (8.6-10.4) mg/dl Phosphorus 3.1 (2.5-4.5) mg/dL Magnesium 1.8 (1.6-2.3) mg/dL Total Bilirubin 0.2 (0.2-1.3) mg/dL AST 17 (14-36) U/L ALT 27 (9-52) U/L Alkaline Phosphatase 102 (38-126) U/L Total Protein 4.6 L (6.3-8.3) g/dL Albumin 1.8 L (3.5-5.0) g/dL Globulin 2.8 (2.2-3.9) gm/dL Albumin/Globulin Ratio 0.6 L (1.0-2.1) 07/21/17 07/21/17 07/21/17 Range/Units 23:36 17:24 12:23 WBC (4.8-10.8) K/uL RBC (3.80-5.20) Mil/uL Hgb (11.0-16.0) g/dL Hct (34.0-47.0) % MCV (81.0-99.0) fL MCH (27.0-31.0) pg MCHC (33.0-37.0) g/dL RDW (11.5-14.5) % Plt Count (130-400) K/uL MPV (7.2-11.7) fL Neut % (Auto) (50.0-75.0) % Lymph % (Auto) (20.0-40.0) % Kern % (Auto) (0.0-10.0) % Eos % (Auto) (0.0-4.0) % Baso % (Auto) (0.0-2.0) % Neut # (1.8-7.0) K/uL Lymph # (1.0-4.3) K/uL Kern # (0.0-0.8) K/uL Eos # (0.0-0.7) K/uL Baso # (0.0-0.2) K/uL Sodium (132-148) mmol/L Potassium (3.6-5.2) mmol/L Chloride (98-107) mmol/L Carbon Dioxide (22-30) mmol/L Anion Gap (10-20) BUN (7-17) mg/dL Creatinine (0.7-1.2) mg/dL Est GFR ( Amer) Est GFR (Non-Af Amer) POC Glucose (mg/dL) 316 H 348 H 305 H (65-110) mg/dL Random Glucose (65-105) mg/dL Calcium (8.6-10.4) mg/dl Phosphorus (2.5-4.5) mg/dL Magnesium (1.6-2.3) mg/dL Total Bilirubin (0.2-1.3) mg/dL AST (14-36) U/L ALT (9-52) U/L Alkaline Phosphatase (38-126) U/L Total Protein (6.3-8.3) g/dL Albumin (3.5-5.0) g/dL Globulin (2.2-3.9) gm/dL Albumin/Globulin Ratio (1.0-2.1) Laboratory Results - last 24 hr 07/21/17 07/21/17 07/21/17 12:23 17:24 23:36 WBC RBC Hgb Hct MCV MCH MCHC RDW Plt Count MPV Neut % (Auto) Lymph % (Auto) Kern % (Auto) Eos % (Auto) Baso % (Auto) Neut # Lymph # Kern # Eos # Baso # Sodium Potassium Chloride Carbon Dioxide Anion Gap BUN Creatinine Est GFR ( Amer) Est GFR (Non-Af Amer) POC Glucose (mg/dL) 305 H 348 H 316 H Random Glucose Calcium Phosphorus Magnesium Total Bilirubin AST ALT Alkaline Phosphatase Total Protein Albumin Globulin Albumin/Globulin Ratio 0107/22/17 07/22/17 06:39 07:26 07:26 WBC 7.0 RBC 2.99 L Hgb 8.3 L Hct 25.2 L MCV 84.2 MCH 27.8 MCHC 33.0 RDW 15.4 H Plt Count 182 MPV 8.2 Neut % (Auto) 82.9 H Lymph % (Auto) 12.2 L Kern % (Auto) 4.7 Eos % (Auto) 0.0 Baso % (Auto) 0.2 Neut # 5.8 Lymph # 0.9 L Kern # 0.3 Eos # 0.0 Baso # 0.0 Sodium 141 Potassium 3.6 Chloride 116 H Carbon Dioxide 23 Anion Gap 6 L BUN 24 H Creatinine 1.0 Est GFR ( Amer) > 60 Est GFR (Non-Af Amer) 56 POC Glucose (mg/dL) 235 H Random Glucose 213 H Calcium 8.5 L Phosphorus 3.1 Magnesium 1.8 Total Bilirubin 0.2 AST 17 ALT 27 Alkaline Phosphatase 102 Total Protein 4.6 L Albumin 1.8 L Globulin 2.8 Albumin/Globulin Ratio 0.6 L Fingerstick Blood Sugar Results: 238 Critical Care Progress Note - Nutrition Nutrition: Nutrition Category Date Time Status Pureed [Dysphagia/Modified Consistency Diet] [DIET] Diets 07/21/17 Lunch Active
--- NOTE | 2017-07-22 17:23 | CP.PCM.PN ---
Subjective - Date & Time of Evaluation Date of Evaluation: 07/22/17 Time of Evaluation: 17:23 Objective - Vital Signs/Intake and Output Vital Signs (last 24 hours): Temp Pulse Resp BP Pulse Ox 97.6 F 95 H 12 144/74 100 07/22/17 16:00 07/22/17 14:01 07/22/17 09:01 07/22/17 14:01 07/22/17 16:00 Intake and Output: 07/22/17 07/22/17 06:59 18:59 Intake Total 460 840 Output Total 1540 1610 Balance -1080 -770 - Medications Medications: Current Medications Albuterol/Ipratropium (Duoneb 3 Mg/0.5 Mg (3 Ml) Ud) 3 ml INH RQ6 [facility] Last Admin: 07/22/17 14:00 Dose: 3 ml Enoxaparin Sodium (Lovenox) 30 mg SC DAILY [facility] Last Admin: 07/22/17 09:29 Dose: 30 mg Meropenem 500 mg/ Sodium (Chloride) 100 mls @ 100 mls/hr IVPB Q12H [facility] Last Admin: 07/22/17 09:30 Dose: 100 mls/hr Insulin Aspart (Novolog) 0 unit SC Q6H [facility] PRN Reason: Protocol Last Admin: 07/22/17 13:00 Dose: 3 unit Lactobacillus Acidophilus (Bacid Acidophilus) 1 cap PO DAILY [facility] Last Admin: 07/22/17 09:29 Dose: 1 cap Metoclopramide HCl (Reglan) 10 mg PO Q6 PRN PRN Reason: Nausea/Vomiting Metoprolol Tartrate (Lopressor) 2.5 mg IVP Q6H [facility] Last Admin: 07/22/17 13:52 Dose: 2.5 mg Pantoprazole Sodium (Protonix Susp) 40 mg PO 0600 [facility] Last Admin: 07/22/17 07:09 Dose: 40 mg - Labs Labs: 07/22/17 07:26 07/22/17 07:26 PT 13.0 SECONDS (9.7-12.2) H 07/17/17 14:00 INR 1.2 07/17/17 14:00 APTT 34 SECONDS (21-34) 07/17/17 14:00
[2017-07-23] MEDS: (Novolog) Insulin Aspart, Recombinant 100 u/ml 10 ml vial SC SCH ×5 (00:27→22:52)
[2017-07-23] MEDS: Metoprolol 1 mg/ml Inj IVP SCH ×4 (01:11→18:07)
[2017-07-23] MEDS: Albuterol-Ipratrop 3 mg / 0.5 (3 ml) UD INH SCH ×4 (01:21→19:50)
[2017-07-23] MEDS: Pantoprazole 40 mg Susp UD PO SCH (06:21)
[2017-07-23] MEDS: Meropenem 500 MG in Sodium Chloride 0.9% 100 ML IVPB SCH ×2 (08:45→21:16)
[2017-07-23] MEDS: Lactobacillus Acidophilus 500 MU Cap PO SCH (09:45)
[2017-07-23] MEDS: Enoxaparin 30 mg Syringe SC SCH (09:45)
--- NOTE | 2017-07-23 13:02 | CP.PCM.PN ---
Subjective - Date & Time of Evaluation Date of Evaluation: 07/23/17 Time of Evaluation: 13:02 Objective - Vital Signs/Intake and Output Vital Signs (last 24 hours): Temp Pulse Resp BP Pulse Ox 98.2 F 120 H 15 121/79 100 07/23/17 12:00 07/23/17 11:28 07/23/17 11:28 07/23/17 11:28 07/23/17 12:00 Intake and Output: 07/23/17 07/23/17 06:59 18:59 Intake Total 360 225 Output Total 1400 1050 Balance -1040 -825 - Medications Medications: Current Medications Albuterol/Ipratropium (Duoneb 3 Mg/0.5 Mg (3 Ml) Ud) 3 ml INH RQ6 [facility] Last Admin: 07/23/17 08:48 Dose: 3 ml Enoxaparin Sodium (Lovenox) 30 mg SC DAILY [facility] Last Admin: 07/23/17 09:45 Dose: 30 mg Meropenem 500 mg/ Sodium (Chloride) 100 mls @ 100 mls/hr IVPB Q12H [facility] Last Admin: 07/23/17 08:45 Dose: 100 mls/hr Insulin Aspart (Novolog) 0 unit SC ACHS [facility] PRN Reason: Protocol Lactobacillus Acidophilus (Bacid Acidophilus) 1 cap PO DAILY [facility] Last Admin: 07/23/17 09:45 Dose: 1 cap Metoclopramide HCl (Reglan) 10 mg PO Q6 PRN PRN Reason: Nausea/Vomiting Metoprolol Tartrate (Lopressor) 2.5 mg IVP Q6H [facility] Last Admin: 07/23/17 12:38 Dose: 2.5 mg Pantoprazole Sodium (Protonix Susp) 40 mg PO 0600 [facility] Last Admin: 07/23/17 06:21 Dose: 40 mg - Labs Labs: 07/22/17 07:26 07/22/17 07:26 PT 13.0 SECONDS (9.7-12.2) H 07/17/17 14:00 INR 1.2 07/17/17 14:00 APTT 34 SECONDS (21-34) 07/17/17 14:00
[2017-07-23 18:38] VITALS: O2SAT 100
[2017-07-24] MEDS: Metoprolol 1 mg/ml Inj IVP SCH ×4 (00:39→18:33)
[2017-07-24] MEDS: Albuterol-Ipratrop 3 mg / 0.5 (3 ml) UD INH SCH ×4 (01:17→19:54)
[2017-07-24] MEDS: Pantoprazole 40 mg Susp UD PO SCH (06:21)
[2017-07-24] MEDS: (Novolog) Insulin Aspart, Recombinant 100 u/ml 10 ml vial SC SCH ×3 (07:56→21:19)
[2017-07-24] MEDS: Meropenem 500 MG in Sodium Chloride 0.9% 100 ML IVPB SCH ×2 (08:57→20:59)
[2017-07-24] MEDS: Enoxaparin 30 mg Syringe SC SCH (08:59)
[2017-07-24] MEDS: Lactobacillus Acidophilus 500 MU Cap PO SCH (08:59)
[2017-07-24 09:50] LABS: BASO % 0.1 % (0.0-2.0); EOS # 0.1 K/uL (0.0-0.7); EOS % 1.6 % (0.0-4.0); HEMOGLOBIN 7.6 g/dL (11.0-16.0); LYMPH % 17.3 % (20.0-40.0); MEAN CELL VOLUME 83.2 fL (81.0-99.0); MEAN CORPUSCULAR HEMOGLOBIN 27.4 pg (27.0-31.0); MEAN CORPUSCULAR HGB CONC 32.9 g/dL (33.0-37.0); MEAN PLATELET VOLUME 8.3 fL (7.2-11.7); MONO # 0.3 K/uL (0.0-0.8); MONO % 4.6 % (0.0-10.0); NEUT # 4.6 K/uL (1.8-7.0); NEUT % 76.4 % (50.0-75.0); RBC 2.76 Mil/uL (3.80-5.20); RED CELL DISTRIBUTION WIDTH 15.3 % (11.5-14.5); WHITE BLOOD COUNT 6.1 K/uL (4.8-10.8)
[2017-07-24 10:05] LABS: ALB/GLOB RATIO 0.6 (1.0-2.1); ALBUMIN 1.8 g/dL (3.5-5.0); ALT/SGPT 29 U/L (9-52); AST/SGOT 30 U/L (14-36); BLOOD UREA NITROGEN 20 mg/dL (7-17); CALCIUM 8.2 mg/dl (8.6-10.4); GFR AFRICAN-AMERICAN > 60; GFR NON-AFRICAN AMERICAN 56
[2017-07-24] MEDS ORDERED: Potassium Chloride 20 mEq/15 ml LIQ UD PO ONE (10:19)
--- NOTE | 2017-07-24 13:57 | CP.PCM.PN ---
Subjective - Date & Time of Evaluation Date of Evaluation: 07/24/17 Time of Evaluation: 13:57 Objective - Vital Signs/Intake and Output Vital Signs (last 24 hours): Temp Pulse Resp BP Pulse Ox 98.3 F 119 H 19 116/68 100 07/24/17 04:00 07/24/17 04:00 07/24/17 04:00 07/24/17 04:00 07/24/17 04:00 Intake and Output: 07/24/17 07/24/17 06:59 18:59 Intake Total 500 350 Output Total 1400 700 Balance -900 -350 - Medications Medications: Current Medications Albuterol/Ipratropium (Duoneb 3 Mg/0.5 Mg (3 Ml) Ud) 3 ml INH RQ6 [facility] Last Admin: 07/24/17 13:21 Dose: 3 ml Enoxaparin Sodium (Lovenox) 30 mg SC DAILY [facility] Last Admin: 07/24/17 08:59 Dose: 30 mg Meropenem 500 mg/ Sodium (Chloride) 100 mls @ 100 mls/hr IVPB Q12H [facility] Last Admin: 07/24/17 08:57 Dose: 100 mls/hr Insulin Aspart (Novolog) 0 unit SC ACHS [facility] PRN Reason: Protocol Last Admin: 07/24/17 11:30 Dose: Not Given Lactobacillus Acidophilus (Bacid Acidophilus) 1 cap PO DAILY [facility] Last Admin: 07/24/17 08:59 Dose: 1 cap Metoclopramide HCl (Reglan) 10 mg PO Q6 PRN PRN Reason: Nausea/Vomiting Metoprolol Tartrate (Lopressor) 2.5 mg IVP Q6H [facility] Last Admin: 07/24/17 13:37 Dose: 2.5 mg Pantoprazole Sodium (Protonix Susp) 40 mg PO 0600 [facility] Last Admin: 07/24/17 06:21 Dose: 40 mg - Labs Labs: 07/24/17 09:34 07/24/17 09:34 PT 13.0 SECONDS (9.7-12.2) H 07/17/17 14:00 INR 1.2 07/17/17 14:00 APTT 34 SECONDS (21-34) 07/17/17 14:00
--- NOTE | 2017-07-24 19:09 | CP.PCM.CON ---
History of Present Illness - History of Present Illness History of Present Illness: General Surgery Consult HPI: 62F well known to surgical service. Pt presented s/p cardiac arrest for evaluation. Per EMS, patient had a witnessed episode of cardiac arrest and went into PEA w/ ROSC. In ED, initially EKG concerning for STEMI. Cardio called to bedside but did not meet criteria for code heart. Currently, pt in ICU but seems to be in good spirits and is wondering when we will reverse her ostomy. PMH: HTN, DMII, colitis PSH: exploratory laparotomy with small bowel resection x2, bladder repair, appendectomy, and ileostomy Meds: MAR reviewed All: NKDA SH: No ETOH/tobacco/drugs Review of Systems - Review of Systems All systems: reviewed and no additional remarkable complaints except (as per HPI ) Past Patient History - Infectious Disease Hx of Infectious Diseases: None - Past Medical History & Family History Past Medical History?: Yes - Past Social History Smoking Status: Never Smoked - CARDIAC Hx Cardiac Disorders: Yes (AFIB) Hx Hypertension: Yes - PULMONARY Hx Chronic Obstructive Pulmonary Disease (COPD): Yes - NEUROLOGICAL Hx Neurological Disorder: No - HEENT Hx HEENT Problems: No - RENAL Hx Chronic Kidney Disease: No - ENDOCRINE/METABOLIC Hx Hypothyroidism: Yes - HEMATOLOGICAL/ONCOLOGICAL Hx Blood Disorders: No - INTEGUMENTARY Hx Dermatological Problems: No - MUSCULOSKELETAL/RHEUMATOLOGICAL Hx Arthritis: Yes (back) - GASTROINTESTINAL Hx Gastrointestinal Disorders: Yes Hx Bowel Surgery: Yes (Ileostomy) Hx Colitis: Yes Hx Gastroesophageal Reflux: Yes Other/Comment: Gastroenteritis - GENITOURINARY/GYNECOLOGICAL Hx Genitourinary Disorders: Yes Hx Urinary Tract Infection: Yes Other/Comment: Hydroureter - PSYCHIATRIC Hx Substance Use: No - SURGICAL HISTORY Hx Surgeries: Yes Other/Comment: Nephrostomy insertion; ostomy to right abd. - ANESTHESIA Hx Anesthesia: Yes Hx Anesthesia Reactions: No Hx Malignant Hyperthermia: No Meds Allergies/Adverse Reactions: Allergies Allergy/AdvReac Type Severity Reaction Status Date / Time No Known Allergies Allergy Verified 06/02/17 21:17 - Medications Medications: Current Medications Albuterol/Ipratropium (Duoneb 3 Mg/0.5 Mg (3 Ml) Ud) 3 ml INH RQ6 [facility] Last Admin: 07/24/17 13:21 Dose: 3 ml Enoxaparin Sodium (Lovenox) 30 mg SC DAILY [facility] Last Admin: 07/24/17 08:59 Dose: 30 mg Meropenem 500 mg/ Sodium (Chloride) 100 mls @ 100 mls/hr IVPB Q12H [facility] Last Admin: 07/24/17 08:57 Dose: 100 mls/hr Insulin Aspart (Novolog) 0 unit SC ACHS [facility] PRN Reason: Protocol Last Admin: 07/24/17 11:30 Dose: Not Given Lactobacillus Acidophilus (Bacid Acidophilus) 1 cap PO DAILY [facility] Last Admin: 07/24/17 08:59 Dose: 1 cap Metoclopramide HCl (Reglan) 10 mg PO Q6 PRN PRN Reason: Nausea/Vomiting Metoprolol Tartrate (Lopressor) 2.5 mg IVP Q6H [facility] Last Admin: 07/24/17 18:33 Dose: Not Given Pantoprazole Sodium (Protonix Susp) 40 mg PO 0600 [facility] Last Admin: 07/24/17 06:21 Dose: 40 mg Physical Exam - Constitutional Appears: Non-toxic, No Acute Distress, Cachectic - Head Exam Head Exam: ATRAUMATIC, NORMOCEPHALIC - Eye Exam Eye Exam: EOMI. absent: Scleral icterus - ENT Exam ENT Exam: Mucous Membranes Moist - Neck Exam Neck exam: Negative for: Tenderness, Thyromegaly - Respiratory Exam Respiratory Exam: NORMAL BREATHING PATTERN. absent: Respiratory Distress - GI/Abdominal Exam GI & Abdominal Exam: Soft. absent: Distended, Firm, Guarding, Rebound, Rigid, Tenderness Additional comments: Ostomy functioning well, no leakage. - Rectal Exam Rectal Exam: Deferred - Extremities Exam Extremities exam: Negative for: calf tenderness, pedal edema - Back Exam Back exam: absent: CVA tenderness (R) - Neurological Exam Neurological exam: Alert - Psychiatric Exam Psychiatric exam: Normal Affect, Normal Mood - Skin Skin Exam: Dry, Warm Results - Vital Signs Recent Vital Signs: Last Vital Signs Temp 98.8 F 07/24/17 16:00 Pulse 119 H 07/24/17 04:00 Resp 19 07/24/17 04:00 BP 116/68 07/24/17 04:00 Pulse Ox 100 07/24/17 16:00 - Labs Result Diagrams: 07/24/17 09:34 07/24/17 09:34 Labs: Laboratory Results - last 24 hr 07/23/17 07/24/17 07/24/17 22:14 07:41 09:34 WBC 6.1 RBC 2.76 L Hgb 7.6 L Hct 23.0 L MCV 83.2 MCH 27.4 MCHC 32.9 L RDW 15.3 H Plt Count 132 MPV 8.3 Neut % (Auto) 76.4 H Lymph % (Auto) 17.3 L Tyrrell % (Auto) 4.6 Eos % (Auto) 1.6 Baso % (Auto) 0.1 Neut # 4.6 Lymph # 1.0 Tyrrell # 0.3 Eos # 0.1 Baso # 0.0 Sodium Potassium Chloride Carbon Dioxide Anion Gap BUN Creatinine Est GFR ( Amer) Est GFR (Non-Af Amer) POC Glucose (mg/dL) 117 H 116 H Random Glucose Calcium Total Bilirubin AST ALT Alkaline Phosphatase Total Protein Albumin Globulin Albumin/Globulin Ratio 07/24/17 07/24/17 09:34 11:24 WBC RBC Hgb Hct MCV MCH MCHC RDW Plt Count MPV Neut % (Auto) Lymph % (Auto) Tyrrell % (Auto) Eos % (Auto) Baso % (Auto) Neut # Lymph # Tyrrell # Eos # Baso # Sodium 139 Potassium 3.4 L Chloride 109 H Carbon Dioxide 28 Anion Gap 6 L BUN 20 H Creatinine 1.0 Est GFR ( Amer) > 60 Est GFR (Non-Af Amer) 56 POC Glucose (mg/dL) 147 H Random Glucose 132 H Calcium 8.2 L Total Bilirubin 0.4 AST 30 ALT 29 Alkaline Phosphatase 118 Total Protein 4.6 L Albumin 1.8 L Globulin 2.8 Albumin/Globulin Ratio 0.6 L Assessment & Plan - Assessment and Plan (Free Text) Assessment: 62F with well functioning ileostomy. Plan: Ileostomy functioning well, wound care knows how to care for this pts ostomy Planning for reversal at a later date Continue medical management D/W Dr. Misha Klein PGY4
[2017-07-25] MEDS: Metoprolol 1 mg/ml Inj IVP SCH ×4 (00:46→20:41)
[2017-07-25] MEDS: Albuterol-Ipratrop 3 mg / 0.5 (3 ml) UD INH SCH ×4 (01:18→19:43)
[2017-07-25] MEDS: Pantoprazole 40 mg Susp UD PO SCH (06:45)
[2017-07-25 07:09] LABS: HEMOGLOBIN 8.2 g/dL (11.0-16.0); MEAN CELL VOLUME 83.1 fL (81.0-99.0); MEAN CORPUSCULAR HEMOGLOBIN 27.2 pg (27.0-31.0); MEAN CORPUSCULAR HGB CONC 32.8 g/dL (33.0-37.0); MEAN PLATELET VOLUME 8.8 fL (7.2-11.7); RED CELL DISTRIBUTION WIDTH 15.2 % (11.5-14.5); WHITE BLOOD COUNT 6.2 K/uL (4.8-10.8)
[2017-07-25] MEDS: (Novolog) Insulin Aspart, Recombinant 100 u/ml 10 ml vial SC SCH ×3 (07:30→22:31)
[2017-07-25 07:41] LABS: ALT/SGPT 33 U/L (9-52); AST/SGOT 28 U/L (14-36); BLOOD UREA NITROGEN 17 mg/dL (7-17); CALCIUM 7.2 mg/dl (8.6-10.4); GFR AFRICAN-AMERICAN > 60; GFR NON-AFRICAN AMERICAN > 60
[2017-07-25 07:43] LABS: ALB/GLOB RATIO 0.6 (1.0-2.1)
[2017-07-25] MEDS: Meropenem 500 MG in Sodium Chloride 0.9% 100 ML IVPB SCH (09:01)
[2017-07-25] MEDS: Lactobacillus Acidophilus 500 MU Cap PO SCH (10:01)
[2017-07-25] MEDS: Enoxaparin 30 mg Syringe SC SCH (10:01)
--- NOTE | 2017-07-25 13:43 | CP.PCM.PN ---
Subjective - Date & Time of Evaluation Date of Evaluation: 07/25/17 Time of Evaluation: 13:42 Objective - Vital Signs/Intake and Output Vital Signs (last 24 hours): Temp Pulse Resp BP Pulse Ox 98.5 F 116 H 17 123/69 100 07/25/17 12:00 07/25/17 12:00 07/25/17 12:00 07/25/17 10:10 07/25/17 07:30 Intake and Output: 07/25/17 07/25/17 06:59 18:59 Intake Total 250 400 Output Total 1300 Balance 250 -900 - Medications Medications: Current Medications Albuterol/Ipratropium (Duoneb 3 Mg/0.5 Mg (3 Ml) Ud) 3 ml INH RQ6 [facility] Last Admin: 07/25/17 08:19 Dose: 3 ml Enoxaparin Sodium (Lovenox) 30 mg SC DAILY [facility] Last Admin: 07/25/17 10:01 Dose: 30 mg Meropenem 500 mg/ Sodium (Chloride) 100 mls @ 100 mls/hr IVPB Q12H [facility] Last Admin: 07/25/17 09:01 Dose: 100 mls/hr Insulin Aspart (Novolog) 0 unit SC ACHS [facility] PRN Reason: Protocol Last Admin: 07/25/17 12:21 Dose: 1 unit Lactobacillus Acidophilus (Bacid Acidophilus) 1 cap PO DAILY [facility] Last Admin: 07/25/17 10:01 Dose: 1 cap Metoclopramide HCl (Reglan) 10 mg PO Q6 PRN PRN Reason: Nausea/Vomiting Metoprolol Tartrate (Lopressor) 2.5 mg IVP Q6H [facility] Last Admin: 07/25/17 12:22 Dose: 2.5 mg Pantoprazole Sodium (Protonix Susp) 40 mg PO 0600 [facility] Last Admin: 07/25/17 06:45 Dose: 40 mg - Labs Labs: 07/25/17 07:02 07/25/17 07:04 PT 13.0 SECONDS (9.7-12.2) H 07/17/17 14:00 INR 1.2 07/17/17 14:00 APTT 34 SECONDS (21-34) 07/17/17 14:00
[2017-07-25 13:44] VITALS: BP 112/65
--- NOTE | 2017-07-25 15:44 | CP.PCM.PN ---
Subjective - Date & Time of Evaluation Date of Evaluation: 07/25/17 Time of Evaluation: 15:42 - Subjective Subjective: PT SEEN WITH DR. GAMEZ DURING ROUNDS; CLEARED FROM HIS STANDPOINT FOR D/C BACK TO [facility] TODAY. OK TO D/C PER DR. AUSTIN WELL. I DISCUSSED W DR. ALBRECHT CONSULT SINCE 07/17 AND SHE IS ON VACATION UNTIL 07/26. REVIEWED LABS AND CULTURES WITH DR. GAMEZ AND NO NEED TO D/C WITH IV OR PO ABX PER HIM. HE WILL FOLLOW PT AT [facility] UNTIL DR. Nadja ANTUNEZ RETURNS FROM VACATION. SW AND CM AWARE OF D/C AND WILL ARRANGE TRANSPORT. DISCUSSED D/C WITH PRIMARY RN BRIGITTE; HE WILL HAVE THE MED RESIDENT REMOVE TLC PRIOR TO D/C. NO FURTHER ORDERS. Objective - Vital Signs/Intake and Output Vital Signs (last 24 hours): Temp Pulse Resp BP Pulse Ox 98.5 F 121 H 12 112/65 100 07/25/17 12:00 07/25/17 14:20 07/25/17 14:20 07/25/17 14:20 07/25/17 07:30 Intake and Output: 07/25/17 07/25/17 06:59 18:59 Intake Total 250 1400 Output Total 3150 Balance 250 -1750 - Medications Medications: Current Medications Albuterol/Ipratropium (Duoneb 3 Mg/0.5 Mg (3 Ml) Ud) 3 ml INH RQ6 [facility] Last Admin: 07/25/17 13:50 Dose: 3 ml Enoxaparin Sodium (Lovenox) 30 mg SC DAILY [facility] Last Admin: 07/25/17 10:01 Dose: 30 mg Meropenem 500 mg/ Sodium (Chloride) 100 mls @ 100 mls/hr IVPB Q12H [facility] Last Admin: 07/25/17 09:01 Dose: 100 mls/hr Insulin Aspart (Novolog) 0 unit SC ACHS [facility] PRN Reason: Protocol Last Admin: 07/25/17 12:21 Dose: 1 unit Lactobacillus Acidophilus (Bacid Acidophilus) 1 cap PO DAILY [facility] Last Admin: 07/25/17 10:01 Dose: 1 cap Metoclopramide HCl (Reglan) 10 mg PO Q6 PRN PRN Reason: Nausea/Vomiting Metoprolol Tartrate (Lopressor) 2.5 mg IVP Q6H [facility] Last Admin: 07/25/17 12:22 Dose: 2.5 mg Pantoprazole Sodium (Protonix Susp) 40 mg PO 0600 [facility] [place] Last Admin: 07/25/17 06:45 Dose: 40 mg - Labs Labs: 07/25/17 07:02 07/25/17 07:04 PT 13.0 SECONDS (9.7-12.2) H 07/17/17 14:00 INR 1.2 07/17/17 14:00 APTT 34 SECONDS (21-34) 07/17/17 14:00
[2017-07-25 17:55] VITALS: TEMP 98.8
[2017-07-25 18:52] VITALS: PULSE 120; RESP 20
== END 2017-07-25 23:40 | DRG 584 ==
LOC: C.ER 13:18 → C.9E 15:44 → C.9I 16:39
PROVIDERS: ADMIT Internal Medicine Nephrology; ATTEND Internal Medicine Nephrology
PROC: 05HM33Z Insertion of Infusion Device into Right Internal Jugular Vein, Percutaneous Approach (ICD-10-PCS; principal; 2017-07-18)
DX: A41.9 Sepsis, unspecified organism (principal); I46.9 Cardiac arrest, cause unspecified; R65.21 Severe sepsis with septic shock; N39.0 Urinary tract infection, site not specified; E11.22 Type 2 diabetes mellitus with diabetic chronic kidney disease; E87.6 Hypokalemia; J44.9 Chronic obstructive pulmonary disease, unspecified; N13.4 Hydroureter; N18.9 Chronic kidney disease, unspecified; I48.91 Unspecified atrial fibrillation; E03.9 Hypothyroidism, unspecified; I12.9 Hypertensive chronic kidney disease with stage 1 through stage 4 chronic kidney disease, or unspecified chronic kidney disease; E21.3 Hyperparathyroidism, unspecified; M19.90 Unspecified osteoarthritis, unspecified site; Z87.440 Personal history of urinary (tract) infections; Z90.49 Acquired absence of other specified parts of digestive tract; Z90.710 Acquired absence of both cervix and uterus; Z93.2 Ileostomy status; Z93.6 Other artificial openings of urinary tract status